=== PATIENT | male | born 1950 | race Caucasian/White ===

== ENCOUNTER → 2018-01-26 01:25 | Outpatient (CLI) | payer MEDICARE, OTHER, SELFPAY ==
--- NOTE | 2018-01-26 14:30 | DI.REPORT_ITS ---
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 Moderate atrophic changes are demonstrated. Again noted is a left frontal arachnoid cyst. The previous identified right subdural collection is no longer seen. A pituitary mass described on the previous study of 09/14/17 is unchanged. The ventricles are unremarkable. There are a few small regions of increased signal in the frontal parietal white matter consistent with small vessel disease. There is nothing to suggest an intra or extra-axial hemorrhage or mass. There are no regions of restricted diffusion. There is some contrast enhancement involving the pituitary mass, otherwise no regions of contrast enhancement are evident. SUMMARY: No acute abnormality is demonstrated. There has been resorption of a right subdural hematoma. Again noted is a left frontal subarachnoid cyst. The pituitary tumor is unchanged.
[2018-01-26] MEDS: Gadoterate meglumine 20 ML VIAL 18 ML IVP (15:14)
--- NOTE | 2018-01-26 16:37 | DI.VRAD_ITS ---
EXAM: MR Head Without And With Intravenous Contrast CLINICAL HISTORY: 67 years old, male; Pain; Headache; Migraine; Aura effect not specified; Patient HX: Migraine w/aura and w/o status migrainosus, . not retractable. 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 COMPARISON: MRI BRAIN - PITUITARY W/WO 2017-09-14 16:38 FINDINGS: Brain: Stable appearance of approximately 5.3 cm CSF isointense structure in the anterior left frontal pole causing adjacent mass effect upon the adjacent left frontal lobe, most likely representing arachnoid cyst. Resolution of previously seen right-sided subdural hematoma. Few scattered nonspecific hypointensities of the periventricular and deep subcortical white matter, most likely secondary to chronic small vessel ischemic change. No restricted diffusion to suggest infarct. Chronic unchanged mild thickening and enhancement of the right cerebral dura, possibly related to sequela from old subdural collection. No new areas of enhancement. Ventricles: Unremarkable. No ventriculomegaly. Bones/joints: Unremarkable. Sinuses: Unremarkable as visualized. No acute sinusitis. Mastoid air cells: Unremarkable as visualized. No mastoid effusion. Orbits: Unremarkable as visualized. IMPRESSION: 1. No acute findings on MR brain. 2. Chronic unchanged mild enhancement of the right cerebral dura, possibly sequela of now essentially completely resolved old right subdural collection/hematoma. 3. Other chronic findings, as above. Dictated and Authenticated by: Alban Hinojosa MD. Ordering:MALOU IZAGUIRRE MD
== END ==
PROVIDERS: PCP Family Medicine; Visit Provider Psychiatry & Neurology Neurology
DX: G43.109 Migraine with aura, not intractable, without status migrainosus (principal); I67.89 Other cerebrovascular disease; D35.2 Benign neoplasm of pituitary gland; R93.0 Abnormal findings on diagnostic imaging of skull and head, not elsewhere classified
CPT/HCPCS: 70553

== ENCOUNTER → 2018-01-31 12:45 | Outpatient (CLI) | payer MEDICARE, OTHER, SELFPAY | PROVIDERS: PCP Family Medicine; Visit Provider Nurse Practitioner Adult Health | DX: G31.84 Mild cognitive impairment of uncertain or unknown etiology (principal); E11.9 Type 2 diabetes mellitus without complications; I10 Essential (primary) hypertension | CPT/HCPCS: 99213 ==

== ENCOUNTER 2018-01-31 18:38 | Emergency (ER) | payer MEDICARE, OTHER, SELFPAY ==
[2018-01-31] VITALS (45 sets, daily range): BP systolic 151–184; BP diastolic 69–117; PULSE 67–88; RESP 11–30; TEMP 36.7; O2SAT 95–99
--- NOTE | 2018-01-31 19:02 | ED.GENADUL_ITS ---
Disposition Clinical Impression: Migraine headache, Hypokalemia Disposition: STILL A PATIENT Condition: Good Instructions: Hypokalemia (ED) Additional Instructions: May liberalize potassium in the diet such as through the ingestion of bananas, strawberries, tree nuts such as cashews or almonds. Continue your regular medications as previously prescribed. Home to rest this evening. Our care management team will work towards achieving you an outpatient follow- up in clinic to recheck your laboratories this week. Return to the emergency department for any acute concerns. Medical Decision Making - Lab Data Laboratory Results - last 24 hr 01/31/18 01/31/18 01/31/18 19:00 19:00 19:49 WBC 5.44 RBC 4.69 Hgb 13.2 L Hct 37.5 L MCV 80.0 MCH 28.1 MCHC 35.2 RDW 15.0 H Plt Count 167 MPV 8.9 Immature Gran % 0.2 Neutrophils % 56.1 Lymphocytes % 27.0 Monocytes % 11.6 Eosinophils % 3.3 Basophils % 1.8 Absolute Neutrophils 3.05 Absolute Lymphocytes 1.47 Absolute Monocytes 0.63 Absolute Eosinophils 0.18 Absolute Basophils 0.10 Sodium Cancelled 146 H Potassium Cancelled 2.4 L* Chloride Cancelled 119 H Carbon Dioxide Cancelled 15.0 L Anion Gap Cancelled 12.0 H BUN Cancelled 7 Creatinine Cancelled 0.49 L Estimated GFR/1.73 m2 Cancelled >= 60.00 Glucose Cancelled 152 H Calcium Cancelled < 5.0 L* Laboratory Results - last 24 hr 01/31/18 01/31/18 01/31/18 19:00 19:00 19:49 WBC 5.44 RBC 4.69 Hgb 13.2 L Hct 37.5 L MCV 80.0 MCH 28.1 MCHC 35.2 RDW 15.0 H Plt Count 167 MPV 8.9 Immature Gran % 0.2 Neutrophils % 56.1 Lymphocytes % 27.0 Monocytes % 11.6 Eosinophils % 3.3 Basophils % 1.8 Absolute Neutrophils 3.05 Absolute Lymphocytes 1.47 Absolute Monocytes 0.63 Absolute Eosinophils 0.18 Absolute Basophils 0.10 Sodium Cancelled 146 H Potassium Cancelled 2.4 L* Chloride Cancelled 119 H Carbon Dioxide Cancelled 15.0 L Anion Gap Cancelled 12.0 H BUN Cancelled 7 Creatinine Cancelled 0.49 L Estimated GFR/1.73 m2 Cancelled >= 60.00 Glucose Cancelled 152 H Calcium Cancelled < 5.0 L* 01/31/18 23:05 WBC RBC Hgb Hct MCV MCH MCHC RDW Plt Count MPV Immature Gran % Neutrophils % Lymphocytes % Monocytes % Eosinophils % Basophils % Absolute Neutrophils Absolute Lymphocytes Absolute Monocytes Absolute Eosinophils Absolute Basophils Sodium 141 Potassium 4.1 D Chloride 110 H Carbon Dioxide 19.3 L Anion Gap 11.7 H BUN 9 Creatinine 0.96 Estimated GFR/1.73 m2 >= 60.00 Glucose 137 H Calcium 7.5 L Results reviewed for labs ordered during visit: Yes 01/31/18 21:22 Normal sinus rhythm, the rate is 76, the QRS is narrow, ST segments are flatnonspecific - Radiology Data Radiology results: report reviewed, image reviewed - Medical Decision Making 59-year-old male presents for evaluation of headache. History of both subdural hematoma in the past as well as migraine headaches. He is afebrile and well- appearing with mild hypertension. He recently had an MRI of the brain and states that he initially would like to defer CT scan. IV access established, patient given fluids, antiemetic, gabapentin, Tylenol. He had some improvement. Subsequently given oral tramadol. The patient's separately arrived, he agreed to proceed with noncontrast CT scan of the head. Diagnostics reveal white blood cell count 5, hematocrit 3700 it was 167. Sodium 146, potassium 2.4, chloride 119, bicarb 15, BUN 7, creatinine 0.4. He does take an AURA inhibitor. No current potassium supplementation. Potassium administered in the emergency department. Patient improved following medications. CT images of his brain are unremarkable for acute process. Most consistent with migraine headache. Patient is desirous of returning to home. Repeat chemistries are obtained following potassium supplementation. Potassium corrected to 4.1, calcium corrected to 7.5. Unclear if additional blood draw was diluted from fluids, or spurious. EKG did not reveal any changes. Patient improved, we will arrange for outpatient follow-up in clinic this week. Stable for discharge to home History of Present Illness - General Chief complaint: Headache Stated complaint: MIGRAINE Time Seen by Provider: 01/31/18 18:57 Source: patient, RN notes reviewed Mode of arrival: ambulatory Limitations: no limitations - History of Present Illness Initial comments: 59-year-old male with migraine headaches. He also has a complex past medical history. Complains of gradual onset over hours time of frontal, achy, constant severe headache is nonradiating. He has not had associated neck stiffness or fever. He did not fall or hurt himself. He states it does not feel like previous subdural hematoma. No other exacerbating or ameliorating factors History coronary artery disease, diabetes, hyperlipidemia, subdural hematoma status post evacuation, as well as migraine headaches. Brain MRI on January 26 was performed with no acute abnormality. Resorption of right subdural hematoma was noted. Left frontal subarachnoid cyst unchanged. Pituitary tumor noted unchanged. - Related Data Allopurinol [Zyloprim] 300 mg PO DAILY 01/24/13 Levothyroxine [Levothroid] 50 mcg PO DAILY@0730 01/24/13 QUEtiapine [SEROquel] 300 mg PO HS 01/24/13 Venlafaxine HCl [Venlafaxine HCl ER] 75 mg PO DAILY 01/24/13 Ranitidine HCl [Zantac] 75 mg PO DAILY tab-cap 06/19/16 Glimepiride [Amaryl] 4 mg PO DAILY@0800 01/11/17 Carvedilol 25 mg PO BID #120 tab-cap 02/04/17 Rosuvastatin [Crestor] 20 mg PO HS 03/22/17 Docusate Sodium [Dulcolax Stool Softener] 100 mg PO DAILY PRN 04/08/17 Nitroglycerin [Nitrostat] 0.4 mg SL as directed 04/08/17 Polyethylene Glycol 3350 [Miralax] 17 g PO DAILY #255 gm 04/08/17 Acetaminophen [Tylenol] 2 tab PO Q4H PRN PRN tab 05/24/17 MetFORMIN [Glucophage] 1,000 mg PO BID@0800,1700 #0 05/28/17 Insulin Detemir [Levemir Flextouch] 50 units TP BID 08/04/17 Gabapentin 300 mg PO QPM PRN #14 capsule 10/30/17 Lisinopril [Prinivil] 20 mg PO DAILY tab-cap 11/25/17 Topiramate [Topamax] 50 mg PO DAILY cap.sprink 11/25/17 Cyanocobalamin (Vitamin B-12) [Vitamin B-12] 1,000 mcg PO DAILY 07/09/18 Riboflavin [Vitamin B-2] 100 mg PO DAILY 01/31/18 Allergies Allergy/AdvReac Type Severity Reaction Status Date / Time amoxicillin Allergy Severe breathing Unverified 01/31/18 18:49 difficuty and vomiting Penicillins Allergy Skin Rash Unverified 01/31/18 18:49 sulfamethoxazole Allergy Skin Rash Unverified 01/31/18 18:49 [From Bactrim] trimethoprim [From Bactrim] Allergy Skin Rash Unverified 01/31/18 18:49 oxycodone HCl [From Percocet] AdvReac Severe Contraindic Unverified 01/31/18 18: 49 ated oxycodone terephthalate AdvReac Severe Contraindic Unverified 01/31/18 18:49 [From Percodan] ated Review of Systems Other: 8 systems reviewed, otherwise no Past Medical History - Past Medical History Medical history: AMI, CAD, dementia, diabetes, GERD, hyperlipidemia, hypertension superficial thrombophlebitis; hypothyroid; chronic back pain, urinary tract infections, prostatitis Surgical history: appendectomy, coronary bypass surgery, herniorraphy, other ( colonoscopy) Family history: no significant family history - Social History Alcohol use: none Drug use: none General Exam - General Limitations: no limitations General appearance: alert, in distress, other (Lying in darkened room) - Head Head exam: Present: atraumatic, normocephalic - Eye Eye exam: Present: PERRL, EOMI - ENT ENT exam: Present: normal exam - Neck Neck exam: Present: normal inspection, full ROM. Absent: tenderness, meningismus - Respiratory Respiratory exam: Present: normal lung sounds bilaterally. Absent: respiratory distress, chest wall tenderness - Cardiovascular Cardiovascular Exam: Present: regular rate, normal rhythm - GI/Abdominal GI/Abdominal exam: Present: soft. Absent: distended, tenderness - Extremities Exam Extremities exam: Present: normal inspection, normal capillary refill - Neurological Exam Neurological exam: Present: alert, oriented X3. Absent: motor sensory deficit - Psychiatric Psychiatric exam: Present: normal affect, normal mood - Skin Skin exam: Present: warm, dry, intact Course Vital Signs - 24 hr 01/31/18 18:47 Temperature 36.7 C Pulse 88 Respiratory 20 Rate Blood Pressure 184/92 Pulse Oximetry 97
[2018-01-31] MEDS: Normal Saline 1,000 ML 1000 ML IV (19:08)
[2018-01-31] MEDS: Ondansetron 4 MG/2 ML VIAL IVP (19:10)
[2018-01-31 19:12] LABS: Abs Immature Grans 0.01 k/cumm (0.0-0.09); Absolute Eosinophil Count 0.18 k/cumm (0.0-0.7); Absolute Lymphocyte Count 1.47 k/cumm (1.2-3.4); Absolute Monocyte Count 0.63 k/cumm (0.11-0.7); Absolute Neutrophil Count 3.05 k/cumm (1.2-6.7); Basophils % 1.8; Eosinophils % 3.3; HCT 37.5 % (40.0-50.0); HGB 13.2 g/dL (13.5-17.5); Immature Grans % 0.2; Mean Corp. HGB Concentration 35.2 g/dL (32.0-36.0); Mean Corpuscular Hemoglobin 28.1 pg (27.0-33.0); Mean Platelet Volume 8.9 fL (8.0-11.0); Monocytes % 11.6; Neutrophils % 56.1; Platelet Count 167 x1000/uL (130-400); RBC 4.69 m/cumm (4.50-6.00); White Blood Cell Count 5.44 k/cumm (4.4-10.8)
[2018-01-31] MEDS: Normal Saline Flush 10 ML SYR IVP (19:14)
[2018-01-31] MEDS: diphenhydrAMINE 50 MG/ML VIAL 12.5 MG IVP (19:23)
[2018-01-31] MEDS: Acetaminophen 500 MG TAB 1000 MG PO (19:24)
[2018-01-31] MEDS: Gabapentin 300 MG CAP PO (19:24)
--- NOTE | 2018-01-31 20:11 | DI.RPTCT_ITS ---
SYMPTOM/DIAGNOSIS: HEADACHE, HX SUBDURAL IN THE PAST NONCONTRAST HEAD CT: Comparison is made with 27 December 2017. A right frontal jaylin hole is again noted. There has been no reaccumulation of the previously noted subdural hematoma. A left frontal arachnoid cyst is again noted. No acute hemorrhage or acute infarct is seen. The ventricles are unchanged in size. IMPRESSION: No acute abnormality.
[2018-01-31 20:12] LABS: BUN 7 mg/dL (7-18); Sodium 146 mmol/L (136-145)
[2018-01-31 20:23] LABS: CREATININE 0.49 mg/dL (0.70-1.30); Chloride 119 mmol/L (98-107); Glucose 152 mg/dL (70-100)
[2018-01-31 20:26] LABS: Calcium < 5.0 mg/dL (8.5-10.1); Potassium 2.4 mmol/L (3.5-5.1)
--- NOTE | 2018-01-31 20:49 | DI.VRAD_ITS ---
EXAM: CT Head Without Intravenous Contrast EXAM DATE/TIME: 01/31/2018 8:12 PM CLINICAL HISTORY: 67 years old, male; Pain; Headache; Headache not specified; Patient HX: Headache, HX subdural in the past TECHNIQUE: Axial computed tomography images of the head/brain without intravenous contrast. Coronal and sagittal reformatted images were created and reviewed. COMPARISON: CT - HEAD WITHOUT CONTRAST 2017-12-27 19:06 FINDINGS: Brain: There is mild diffuse cortical atrophy again noted. A left frontal CSF fluid collection remains unchanged in size and is thought likely consistent with an arachnoid cyst. No acute intracranial hemorrhage. Ventricles: Normal. No ventriculomegaly. Bones/joints: A right frontal lateral jaylin hole is again noted. Sinuses: Normal as visualized. No acute sinusitis. Mastoid air cells: Normal as visualized. No mastoid effusion. Soft tissues: Normal. Vasculature: Atherosclerotic vascular plaquing is again seen within the left carotid siphon. IMPRESSION: 1. No acute intracranial findings are detected. 2. No significant interval change. Dictated and Authenticated by: Armando Hollis MD. Ordering:COSME SAUCEDO MD
[2018-01-31] MEDS: POTASSIUM CHLORIDE 20 MEQ/100 ML BAG 50 MEQ IVPB (20:54)
[2018-01-31] MEDS: MORPHine 10 MG/ML VIAL 2 MG IVP (21:07)
[2018-01-31] MEDS: Potassium Chloride 20 MEQ TABCR 40 MEQ (21:09)
[2018-01-31 23:21] LABS: Anion Gap 11.7 mmol/L (3-11); BUN 9 mg/dL (7-18); CO2 19.3 mmol/L (21.0-32.0); CREATININE 0.96 mg/dL (0.70-1.30); Calcium 7.5 mg/dL (8.5-10.1); Chloride 110 mmol/L (98-107); Glucose 137 mg/dL (70-100); Potassium 4.1 mmol/L (3.5-5.1); Sodium 141 mmol/L (136-145)
--- NOTE | 2018-02-01 10:21 | PDOC.ERCMPRO ---
Care Management Progress Note 02/01-Dr. Penny requested assistance with a PCP (Dr. Ramirez) f/u end of week for hypokalemia and migraine headache. Referral faxed to [facility].
== END 2018-01-31 23:35 | disposition still patient (30) ==
PROVIDERS: Emergency Provider Emergency Medicine; PCP Family Medicine
DX: G43.909 Migraine, unspecified, not intractable, without status migrainosus (principal); E87.6 Hypokalemia; E11.9 Type 2 diabetes mellitus without complications; Z79.4 Long term (current) use of insulin; I10 Essential (primary) hypertension
CPT/HCPCS: 70450; 93005; 96361; 96365; 96375; 99284 ×2; J1200; J2270; J2405; J3480; 36415; 80048; 99213; 85025; 93010

== ENCOUNTER → 2018-02-07 13:06 | Outpatient (CLI) | payer MEDICARE, OTHER, SELFPAY ==
[2018-02-07 14:06] LABS: Anion Gap 11.6 mmol/L (3-11); BUN 13 mg/dL (7-18); CO2 19.4 mmol/L (21.0-32.0); CREATININE 1.11 mg/dL (0.70-1.30); Calcium 8.4 mg/dL (8.5-10.1); Chloride 106 mmol/L (98-107); Glucose 180 mg/dL (70-100); Magnesium 2.3 mg/dL (1.8-2.4); Sodium 137 mmol/L (136-145)
[2018-02-07 21:43] LABS: Ionized Calcium 1.12 mmol/L (1.12-1.32)
[2018-02-08 10:54] LABS: Parathyroid Hormone,Intact 57 pg/ml (19-88)
== END ==
PROVIDERS: PCP Family Medicine; Visit Provider Family Medicine
DX: E83.51 Hypocalcemia (principal); E87.6 Hypokalemia
CPT/HCPCS: 36415; 80048; 82330; 83735; 83970

== ENCOUNTER → 2018-02-10 10:21 | Outpatient (CLI) | payer MEDICARE, OTHER, SELFPAY ==
[2018-02-10 10:44] LABS: HCT 39.5 % (40.0-50.0); HGB 13.8 g/dL (13.5-17.5); Mean Corp. HGB Concentration 34.9 g/dL (32.0-36.0); Mean Corpuscular Hemoglobin 28.3 pg (27.0-33.0); Mean Corpuscular Volume 80.9 fL (80-95); Mean Platelet Volume 8.9 fL (8.0-11.0); Platelet Count 175 x1000/uL (130-400); RBC 4.88 m/cumm (4.50-6.00); RBC Distribution Width 15.1 % (11.8-14.1); White Blood Cell Count 5.71 k/cumm (4.4-10.8)
[2018-02-10 10:57] LABS: Hemoglobin A1C 7.8 % (4.5-6.2)
== END ==
PROVIDERS: PCP Family Medicine; Visit Provider Family Medicine
DX: E11.9 Type 2 diabetes mellitus without complications (principal); Z86.79 Personal history of other diseases of the circulatory system
CPT/HCPCS: 36415; 85027; 83036

== ENCOUNTER 2018-02-27 16:20 | Emergency (ER) | payer MEDICARE, OTHER, SELFPAY ==
[2018-02-27 16:42] VITALS: BP 149/87; PULSE 90; RESP 16; TEMP 36.7; O2SAT 99
--- NOTE | 2018-02-27 16:50 | ED.GENADUL_ITS ---
Discharge Plan Disposition Patient Disposition: HOME Condition: Fair Discharge Details Chief Complaint: Headache Clinical Impression: Headache Primary Care Provider: Alisa Ramirez ED Provider: Evelyn Griffith Home Meds and New Rx's Prescriptions: New nystatin 100,000 unit/mL suspension 4 ml PO QID 14 Days Qty: 224 RF: 0 Continue ranitidine HCl [Zantac Maximum Strength] 150 MG tablet 75 mg PO DAILY RF: 0 polyethylene glycol 3350 [Miralax] 17 GM powder in packet 17 g PO DAILY Qty: 255 RF: 0 nitroglycerin [Nitrostat] 0.4 MG tablet, sublingual 0.4 mg Sublingual as directed RF: 0 docusate sodium [Dulcolax Stool Softener (dss)] 100 MG capsule 100 mg PO DAILY PRNRF: 0 insulin detemir U-100 [Levemir FlexTouch U-100 Insuln] 100 UNIT/1 ML insulin pen 50 units Topical BID RF: 0 lisinopril 20 MG tablet 20 mg PO DAILY RF: 0 topiramate [Topamax] 25 MG capsule, sprinkle 50 mg PO DAILY RF: 0 riboflavin (vitamin B2) [Vitamin B-2] 100 MG tablet 100 mg PO DAILY RF: 0 carvedilol 25 MG tablet 25 mg PO BID Qty: 120 RF: 4 levothyroxine 50 MCG tablet 50 mcg PO DAILY@0730 RF: 0 allopurinol 300 MG tablet 300 mg PO DAILY RF: 0 venlafaxine 75 MG capsule,extended release 24hr 75 mg PO DAILY RF: 0 quetiapine [Seroquel] 300 MG tablet 300 mg PO HS RF: 0 rosuvastatin [Crestor] 20 MG tablet 20 mg PO HS RF: 0 metformin [Glucophage] 1,000 MG tablet 1,000 mg PO BID@0800,1700 Qty: 0 RF: 0 glimepiride [Amaryl] 4 MG tablet 4 mg PO DAILY@0800 RF: 0 acetaminophen [Tylenol] 325 MG tablet 2 tab PO Q4H PRN PRNRF: 0 gabapentin 300 MG capsule 300 mg PO QPM PRN (Reason: Headache) Qty: 14 RF: 0 cyanocobalamin (vitamin B-12) [Vitamin B-12] 1,000 MCG tablet 1,000 mcg PO DAILY RF: 0 Discharge Instructions Instructions: General Headache (ED) Additional Instructions: Encourage hydration. Please take medication as you have previously for your migraines. Please keep upcoming appointment with primary care. Nystatin swish and swallow as prescribed for your thrush. If he develops fever/chills, increased pain, visual changes or other new/worsening symptoms please seek care urgently once again Referrals: Alisa Ramirez MD [Primary Care Provider] - Medical Decision Making MDM Narrative Medical decision making narrative: Patient presents today with chief complaint of headache. Patient reports a headache initially began approximately 3 days ago but is quite minimal. However, the pain begins increased today. Reports that it is more like a migraine at this time. However, patient also reports that he had a sudden onset of more severe symptoms that awoke him from an afternoon nap. Patient's history of bleed this does have a concern for this. She continues to describe his headache is a migraine. Seems to waffle between this being more like a migraine or the believes he has had previously. Given his history and sudden worsening of symptoms I feel that imaging is appropriate. Patient will be treated with Reglan and Benadryl. We will hold off on any Toradol at this time to wait for that bleed. Symptoms began 30 minutes to 1 hour prior to arrival. CT reviewed by radiologist. Advised stable arachnoid cyst in the left frontal lobe measuring 5.3 cm. Mild mass effect with slight effacement of the frontal horn, unchanged. No midline shift. No intracranial hemorrhage. There are periventricular white matter lucencies compatible with chronic microvascular ischemic disease. Normal aceves-white differentiation. The calvarium is intact. The visualized paranasal sinuses and mastoid air cells are normal bilaterally. No acute findings advised Discussed findings with patient and his . At this point, working diagnosis is migraine as no bleeding is noted. Patient received Reglan and Benadryl IV as well as IV hydration. Patient reports that his headache is now down to a 4 out of 10. He feels that he is ready to go home and sleep. He reports that he has taken his gabapentin at home in the past with good relief in his discomfort, would prefer to take this at home. Patient is given strict return precautions. Advised follow-up with primary care within the next week for reevaluation and to discuss migraine prophylaxis further. All of his questions and concerns were addressed and he is in agreement with this plan. HPI - General Adult General Mode of arrival: ambulatory . Date/Time Provider Initiated Documentation: 02/27/18 16:46 . Limitations to Documentation: no limitations . Information obtained by: patient and family . HPI Narrative: Patient is 67-year-old male presenting today with chief complaint of migraine. Patient reports the headache began a few days ago. Patient has history of hypertension, CAD, diabetes, subdural hematoma. Reports that he had mild headache for the past 3 days. States that this morning the headache started to get worse and felt like my migraines. Has been having photophobia and phonophobia. Denies any nausea or vomiting. However, the patient reports that then this afternoon to take a nap hoping that this would help with his headache. States that a sudden severe headache awoke him from his nap. Reports that this portion of it feels more like his bleeds had historically. Related Data Home Medications Medication Instructions Recorded Confirmed allopurinol 300 mg PO DAILY 01/24/13 02/27/18 levothyroxine 50 mcg PO DAILY@0730 01/24/13 02/27/18 quetiapine [Seroquel] 300 mg PO HS 01/24/13 02/27/18 venlafaxine 75 mg PO DAILY 01/24/13 02/27/18 ranitidine HCl [Zantac Maximum 75 mg PO DAILY tab-cap 06/19/16 02/27/18 Strength] glimepiride [Amaryl] 4 mg PO DAILY@0800 01/11/17 02/27/18 rosuvastatin [Crestor] 20 mg PO HS 03/22/17 02/27/18 docusate sodium [Dulcolax Stool 100 mg PO DAILY PRN 04/08/17 02/27/18 Softener (dss)] nitroglycerin [Nitrostat] 0.4 mg SUBLINGUAL as directed 04/08/17 02/27/18 polyethylene glycol 3350 [Miralax] 17 g PO DAILY #255 gm 04/08/17 01/31/18 insulin detemir U-100 [Levemir 50 units TOPICAL BID 08/04/17 02/27/18 FlexTouch U-100 Insuln] lisinopril 20 mg PO DAILY tab-cap 11/25/17 02/27/18 topiramate [Topamax] 50 mg PO DAILY cap.[email or web address] 11/25/17 02/27/18 cyanocobalamin (vitamin B-12) 1,000 mcg PO DAILY 12/27/17 02/27/18 [Vitamin B-12] riboflavin (vitamin B2) [Vitamin 100 mg PO DAILY 01/31/18 02/27/18 B-2] Previous Rx's Medication Instructions Recorded acetaminophen [Tylenol] 2 tab PO Q4H PRN PRN tab 05/24/17 metformin [Glucophage] 1,000 mg PO BID@0800,1700 #0 05/28/17 gabapentin 300 mg PO QPM PRN #14 capsule 10/30/17 nystatin 4 ml PO QID 14 Days #224 ml 02/27/18 Allergies Allergy/AdvReac Type Severity Reaction Status Date / Time amoxicillin Allergy Severe breathing Unverified 02/27/18 16:46 difficuty and vomiting Penicillins Allergy Skin Rash Unverified 02/27/18 16:46 sulfamethoxazole Allergy Skin Rash Unverified 02/27/18 16:46 [From Bactrim] trimethoprim [From Bactrim] Allergy Skin Rash Unverified 02/27/18 16:46 oxycodone HCl [From Percocet] AdvReac Severe Contraindic Unverified 02/27/18 16: 46 ated oxycodone terephthalate AdvReac Severe Contraindic Unverified 02/27/18 16:46 [From Percodan] ated General Stated Complaint: Headache MADELIN: 2 Review of Systems Constitutional Reports as per HPI, Denies chills, Denies fever(s) and Reports headache(s) Eyes Patient Reports as per HPI, Denies blurry vision, Denies change in vision and Denies loss of vision ENT Denies abnormal hearing, Denies vertigo, Denies dizziness and Reports headache(s ) Cardiovascular Denies chest pain, Denies chest pain at rest, Denies syncope, Denies leg edema and Denies dyspnea Respiratory Denies cough, Denies pain on inspiration, Denies pain with cough and Denies dyspnea Gastrointestinal Reports as per HPI and Reports vomiting Musculoskeletal Denies abnormal gait, Denies back pain, Denies numbness and Denies tingling Integumentary/Breasts Denies erythema, Denies rash and Denies skin pain Neurologic Denies abnormal hearing, Denies abnormal speech, Denies abnormal gait, Denies confusion, Denies vertigo, Denies dizziness, Denies syncope, Reports headache(s) , Denies lack of coordination, Denies loss of vision, Denies numbness, Denies sensory deficit, Denies tingling and Denies paresthesias Psychiatric Denies confusion [facility] Medical History CAD (coronary artery disease) Chronic low back pain Colon polyps DM type 2 (diabetes mellitus, type 2) Depression Diastasis recti Fatty liver GERD (gastroesophageal reflux disease) Gout H/O alcohol abuse Headaches due to 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 Hx of deep venous thrombosis Hyperlipidemia Hypertension Hypothyroidism MRSA infection Obstructive sleep apnea Urethral stricture Vitamin D deficiency Social History Smoking/Tobacco Use Status: Former Tobacco Use Surgical History Appendectomy (06/01/16) Colonoscopy - MAC Coronary Artery Bypass Gaft (CABG) Extraction of cataract Repair of inguinal hernia (08/05/17) Repair of umbilical hernia electroconvulsive therapy facial lesion removal Exam Const General: cooperative, healthy appearing, uncomfortable (patient appears uncomfortable, is prefering to have his blanket over his head for photophobia), no acute distress, well developed and well groomed Nutritional Appearance: average body habitus Orientation: alert and awake HENGA Head: normal to inspection, normocephalic and atraumatic Ears: hearing grossly normal bilaterally Face and sinus: normal facial exam Mouth: abnormal tongue (Patient is a brown film over his tongue. This is able to be removed with a Q-tip. Patient is currently being treated for thrush. Had Oreos and tea prior to arrival) Teeth and gingiva: dentition normal Throat: posterior oropharynx normal Eyes General: appearance normal, both eyes and all related structures Alignment and Position: alignment normal Eyelids: eyelids normal Conjunctivae: conjunctivae normal Pupils: PERRL EOM: EOM intact bilaterally Neck Neck: normal visual inspection, full ROM and no meningeal signs Resp Effort & Inspection: normal respiratory effort and able to speak in complete sentences Auscultation: clear to auscultation bilaterally Cardio Rate: regular rate Rhythm: regular rhythm Heart Sounds: S1 normal and S2 normal GI Inspection: normal to inspection Palpation: soft, not firm, no guarding, not rigid and nontender Auscultation: normal bowel sounds Skin General skin exam: no rashes or lesions noted Lesions: no lesions Rashes: no rashes Trauma: no lacerations or abrasions Neuro General: alert, awake, oriented x3 and no meningeal signs Cranial Nerves: CN's II-XI intact bilaterally Cognition: normal cognition Speech: speech normal Gait: normal gait Motor: muscle tone normal throughout, strength 5/5 throughout, no pronator drift and no movement abnormalities noted Sensory Exam: no sensory deficits noted Coordination: [id number] test normal, [id number] test normal, Romberg test normal and rapid alternating movement UE normal Extrem General: normal to inspection, full ROM and normal capillary refill Psych Appearance: grossly normal and well kempt Mental Status: mental status grossly normal Speech and Movement: speech and movement normal Mood: congruent mood Affect: normal affect Attitude: cooperative Course Vital Signs Temperature 36.7 C 02/27/18 16:42 Pulse 90 02/27/18 16:42 Respiratory Rate 16 02/27/18 16:42 Blood Pressure 149/87 H 02/27/18 16:42 Pulse Oximetry 99 02/27/18 16:42 Temperature 36.7 C 02/27/18 16:42 Pulse 90 02/27/18 16:42 Respiratory Rate 16 02/27/18 16:42 Blood Pressure 149/87 H 02/27/18 16:42 Pulse Oximetry 99 02/27/18 16:42
--- NOTE | 2018-02-27 16:59 | DI.CT_ITS ---
SYMPTOM/DIAGNOSIS: HEADACHE, HISTORY OF BLEEDS NONCONTRAST HEAD CT: Comparison is made with 31 January 2018. No intracranial hemorrhage, mass or infarct seen. There is again noted to be a left frontal arachnoid cyst. The ventricles are unchanged and normal in size. There is stable sellar enlargement which appears unchanged when compared to an MRI of 2007. A right frontal jaylin hole is seen. IMPRESSION: No acute abnormality.
[2018-02-27] MEDS: Metoclopramide 10 MG/2 ML VIAL IVP (17:15)
--- NOTE | 2018-02-27 17:25 | DI.VRAD_ITS ---
EXAM: CT Head Without Intravenous Contrast CLINICAL HISTORY: 67 years old, male; Pain; Headache; Migraine; Aura effect not specified; Other: N/a, acute TAN; Patient HX: TAN, HX of brain bleeds. TECHNIQUE: Axial computed tomography images of the head/brain without intravenous contrast. All CT scans at this facility use at least one of these dose optimization techniques: automated exposure control; mA and/or kV adjustment per patient size (includes targeted exams where dose is matched to clinical indication); or iterative reconstruction. Coronal and sagittal reformatted images were created and reviewed. COMPARISON: CT - HEAD WITHOUT CONTRAST 01/31/2018 8:15 PM FINDINGS: Stable arachnoid cyst in the left frontal lobe measuring 5.3 cm. Mild mass effect with slight effacement of the left frontal horn, unchanged. No midline shift No intracranial hemorrhage. There are periventricular white matter lucencies compatible with chronic microvascular ischemic disease. Normal aceves-white differentiation. The calvarium is intact.The visualized paranasal sinuses and mastoid air cells are normally aerated bilaterally. IMPRESSION: No acute findings. Dictated and Authenticated by: Patrick Piedra MD. Ordering:RICHARD CULP MD
[2018-02-27] MEDS: diphenhydrAMINE 50 MG/ML VIAL 25 MG IVP (17:35)
[2018-02-27] MEDS: Normal Saline 1,000 ML 1000 ML IV (18:10)
[2018-02-27 19:12] VITALS: BP 145/92; PULSE 85; RESP 16; O2SAT 99
== END 2018-02-27 19:10 | disposition home or self-care (01) ==
PROVIDERS: Emergency Provider Physician Assistant; PCP Family Medicine
DX: R51 Headache (principal); B37.0 Candidal stomatitis; Z86.79 Personal history of other diseases of the circulatory system; I10 Essential (primary) hypertension; E11.9 Type 2 diabetes mellitus without complications; Z79.4 Long term (current) use of insulin
CPT/HCPCS: 96361; 96374; 96375; 99285; 70450; 99284; J1200; J2765

== ENCOUNTER 2018-03-02 15:01 | Outpatient (CLI) | payer MEDICARE, OTHER, SELFPAY ==
--- NOTE | 2018-03-02 09:45 | DI.RAD_ITS ---
SYMPTOM/DIAGNOSIS: CHRONIC CONSTIPATION, K59.09, ASSESS STOOL QUANTITY ABDOMEN: Comparison is made with 10/02/16. There is a mild amount of retained stool throughout the colon. No evidence of obstruction is seen. Mild degenerative changes are seen in the lumbar spine and the hips bilaterally. There is an old compression deformity of the T 12 vertebral body again noted. IMPRESSION: Mild amount of retained stool.
== END 2018-03-02 15:21 ==
PROVIDERS: PCP Family Medicine; Visit Provider Family Medicine
DX: K59.00 Constipation, unspecified (principal)
CPT/HCPCS: 74018

== ENCOUNTER 2018-03-22 15:27 | Emergency (ER) | payer MEDICARE, OTHER, SELFPAY ==
[2018-03-22 15:31] VITALS: BP 163/83; PULSE 91; RESP 18; TEMP 37; O2SAT 98
--- NOTE | 2018-03-22 15:39 | DI.CT_ITS ---
SYMPTOMS/DIAGNOSIS: HEADACHE, H/O BRAIN BLEEDS CRANIAL CT: Noncontrast cranial CT was performed. Note is made of a previous left frontal arachnoid cyst and right frontal jaylin hole in a patient with a history of previous intracranial hemorrhage. No acute intracranial hemorrhage, mass effect or midline shift seen. The previously noted enlarged pituitary again seen. The orbital and temporal bone structures appear intact. Paranasal sinuses are well aerated as visualized, as are the mastoid air cells. CONCLUSION: No evidence of acute intracranial process.
[2018-03-22 15:52] LABS: Abs Immature Grans 0.01 k/cumm (0.0-0.09); Absolute Basophil Count 0.05 k/cumm (0.0-0.2); Absolute Eosinophil Count 0.19 k/cumm (0.0-0.7); Absolute Lymphocyte Count 1.07 k/cumm (1.2-3.4); Absolute Monocyte Count 0.69 k/cumm (0.11-0.7); Absolute Neutrophil Count 4.44 k/cumm (1.2-6.7); Basophils % 0.8; Eosinophils % 2.9; HGB 13.2 g/dL (13.5-17.5); Immature Grans % 0.2; Lymphocytes % 16.6; Mean Corp. HGB Concentration 34.7 g/dL (32.0-36.0); Mean Corpuscular Volume 80.5 fL (80-95); Mean Platelet Volume 8.7 fL (8.0-11.0); Monocytes % 10.7; Neutrophils % 68.8; Platelet Count 170 x1000/uL (130-400); RBC 4.72 m/cumm (4.50-6.00); White Blood Cell Count 6.45 k/cumm (4.4-10.8)
[2018-03-22] MEDS: diphenhydrAMINE 50 MG/ML VIAL 25 MG IVP (15:52)
[2018-03-22] MEDS: Normal Saline 1,000 ML 1000 ML IV (15:52)
[2018-03-22] MEDS: Metoclopramide 10 MG/2 ML VIAL IVP (15:52)
[2018-03-22] MEDS: Acetaminophen 500 MG TAB 1000 MG PO (15:52)
[2018-03-22 16:06] LABS: ALT 30 U/L (12-78); AST 16 U/L (15-37); Alkaline Phosphatase 89 U/L (46-116); Anion Gap 10.3 mmol/L (3-11); BUN 15 mg/dL (7-18); Bilirubin, Total 0.3 mg/dL (0.2-1.0); CO2 20.7 mmol/L (21.0-32.0); CREATININE 1.11 mg/dL (0.70-1.30); Calcium 8.8 mg/dL (8.5-10.1); Chloride 102 mmol/L (98-107); Glucose 340 mg/dL (70-100); Potassium 3.8 mmol/L (3.5-5.1); Sodium 133 mmol/L (136-145); Total Protein 7.3 g/dL (6.4-8.2)
[2018-03-22] MEDS: Ketorolac 15 MG/ML VIAL IVP (16:15)
[2018-03-22] MEDS: Dexamethasone 10 MG/ML VIAL (16:46)
[2018-03-22] MEDS: MAGNESIUM SULFATE 1 GM/100 ML BAG IVPB (16:52)
--- NOTE | 2018-03-22 16:57 | W.ED.GENAD ---
Discharge Plan Disposition Patient Disposition: HOME Condition: Good Discharge Details Chief Complaint: Headache Clinical Impression: Headache Primary Care Provider: Alisa Ramirez ED Provider: Christopher Lua Home Meds and New Rx's Prescriptions: No Action ranitidine HCl [Zantac Maximum Strength] 150 MG tablet 75 mg PO DAILY RF: 0 polyethylene glycol 3350 [Miralax] 17 GM powder in packet 17 g PO DAILY Qty: 255 RF: 0 nitroglycerin [Nitrostat] 0.4 MG tablet, sublingual 0.4 mg Sublingual as directed RF: 0 docusate sodium [Dulcolax Stool Softener (dss)] 100 MG capsule 100 mg PO DAILY PRNRF: 0 insulin detemir U-100 [Levemir FlexTouch U-100 Insuln] 100 UNIT/1 ML insulin pen 50 units Topical BID RF: 0 lisinopril 20 MG tablet 20 mg PO DAILY RF: 0 topiramate [Topamax] 25 MG capsule, sprinkle 50 mg PO DAILY RF: 0 riboflavin (vitamin B2) [Vitamin B-2] 100 MG tablet 100 mg PO DAILY RF: 0 carvedilol 25 MG tablet 25 mg PO BID Qty: 120 RF: 4 levothyroxine 50 MCG tablet 50 mcg PO DAILY@0730 RF: 0 allopurinol 300 MG tablet 300 mg PO DAILY RF: 0 venlafaxine 75 MG capsule,extended release 24hr 75 mg PO DAILY RF: 0 quetiapine [Seroquel] 300 MG tablet 300 mg PO HS RF: 0 rosuvastatin [Crestor] 20 MG tablet 20 mg PO HS RF: 0 metformin [Glucophage] 1,000 MG tablet 1,000 mg PO BID@0800,1700 Qty: 0 RF: 0 glimepiride [Amaryl] 4 MG tablet 4 mg PO DAILY@0800 RF: 0 acetaminophen [Tylenol] 325 MG tablet 2 tab PO Q4H PRN PRNRF: 0 gabapentin 300 MG capsule 300 mg PO QPM PRN (Reason: Headache) Qty: 14 RF: 0 cyanocobalamin (vitamin B-12) [Vitamin B-12] 1,000 MCG tablet 1,000 mcg PO DAILY RF: 0 tramadol 50 mg Tablet 1 tab PO PRN PRNRF: 0 Discharge Instructions Instructions: General Headache (ED) Additional Instructions: If you notice any worsening of your symptoms, or any new symptoms such as vomiting, diarrhea, fever, chills, shortness of breath, chest pain, numbness, weakness, or fainting , please return immediately to the emergency department for reevaluation. Please follow up with your primary care provider as soon as possible for reassessment and reevaluation. As always, it was a pleasure participating in your medical care today. Referrals: Alisa Ramirez MD [Primary Care Provider] - Medical Decision Making This is a 67-year-old male with past medical history of intracranial bleeds and intracranial surgery. He also has a very strong history of headaches, which is unfortunately always obfuscated by his history of previous bleeds and injuries. He presents today with headache. Classic to his normal symptoms being in the front of his head, with an aversion to light and loud noises. Demonstrates no focal neurologic deficits on exam, no signs of meningitis, no other abnormalities. We will give a migraine cocktail, and reassess the patient. We will get a head CT to rule out any acute bleed although I feel this is extremely unlikely with his current clinical scenario. 556pm On reevaluation the patient is feeling much better. His headache has been cut in half in regards to severity. He feels that he is ready to go home. Laboratory workup is benign. Repeat neurologic exam demonstrates no focal neurologic deficits. I have extensively reviewed the treatment plan and discharge instructions with the patient and their family. I have addressed all patient concerns at this time. The patient and family was made aware of what symptoms to monitor for that would warrant a return to the emergency department. Discussed the plan with the patient and family, they demonstrate verbal understanding and agreement with our assessment and plan at this time. HPI General Date/Time Provider Initiated Documentation: 03/22/18 15:36. HPI Narrative: This is a 67-year-old male with a past medical history of subdural hematoma, previous intracranial bleed, previous intracranial surgery, diabetes, hypertension, coronary artery disease, who is not on any blood thinners, was a strong history of chronic recurrent headaches secondary to his surgery and previous intracranial pathologies. He presents today for headache. He states it began 1 hour prior to arrival. It occurred while he was swimming in the pool. He has aversion to light and loud noises. It is in the front of his head with radiation behind his eyes. He states that the symptoms are exactly similar to his previous headaches. Patient has had over 7 CT scans on his most recent visit secondary to his headaches. The patient denies any other complaints. He denies any fevers, chills, numbness tingling or weakness, neck pain, chest pain, shortness of breath, vomiting, diarrhea. He denies any pertinent family history. He has no other complaints at this time. Related Data Home Medications Medication Instructions Recorded Confirmed allopurinol 300 mg PO DAILY 01/24/13 03/22/18 levothyroxine 50 mcg PO DAILY@0730 01/24/13 03/22/18 quetiapine [Seroquel] 300 mg PO HS 01/24/13 03/22/18 venlafaxine 75 mg PO DAILY 01/24/13 03/22/18 ranitidine HCl [Zantac Maximum 75 mg PO DAILY tab-cap 06/19/16 03/22/18 Strength] glimepiride [Amaryl] 4 mg PO DAILY@0800 01/11/17 03/22/18 rosuvastatin [Crestor] 20 mg PO HS 03/22/17 03/22/18 docusate sodium [Dulcolax Stool 100 mg PO DAILY PRN 04/08/17 03/22/18 Softener (dss)] nitroglycerin [Nitrostat] 0.4 mg SUBLINGUAL as directed 04/08/17 03/22/18 polyethylene glycol 3350 [Miralax] 17 g PO DAILY #255 gm 04/08/17 03/22/18 acetaminophen [Tylenol] 2 tab PO Q4H PRN PRN tab 05/24/17 03/22/18 metformin [Glucophage] 1,000 mg PO BID@0800,1700 #0 05/28/17 03/22/18 insulin detemir U-100 [Levemir 50 units TOPICAL BID 08/04/17 03/22/18 FlexTouch U-100 Insuln] gabapentin 300 mg PO QPM PRN #14 capsule 10/30/17 03/22/18 lisinopril 20 mg PO DAILY tab-cap 11/25/17 03/22/18 topiramate [Topamax] 50 mg PO DAILY cap.[email or web address] 11/25/17 03/22/18 cyanocobalamin (vitamin B-12) 1,000 mcg PO DAILY 12/27/17 03/22/18 [Vitamin B-12] riboflavin (vitamin B2) [Vitamin 100 mg PO DAILY 01/31/18 03/22/18 B-2] carvedilol 25 mg PO BID #120 tab-cap 02/07/18 03/22/18 tramadol 1 tab PO PRN PRN 03/22/18 03/22/18 Previous Rx's Medication Instructions Recorded acetaminophen [Tylenol] 2 tab PO Q4H PRN PRN tab 05/24/17 metformin [Glucophage] 1,000 mg PO BID@0800,1700 #0 05/28/17 gabapentin 300 mg PO QPM PRN #14 capsule 10/30/17 carvedilol 25 mg PO BID #120 tab-cap 02/07/18 Allergies Allergy/AdvReac Type Severity Reaction Status Date / Time amoxicillin Allergy Severe breathing Unverified 03/22/18 15:36 difficuty and vomiting Penicillins Allergy Skin Rash Unverified 03/22/18 15:36 sulfamethoxazole Allergy Skin Rash Unverified 03/22/18 15:36 [From Bactrim] trimethoprim [From Bactrim] Allergy Skin Rash Unverified 03/22/18 15:36 oxycodone HCl [From Percocet] AdvReac Severe Contraindic Unverified 03/22/18 15:36 ated oxycodone terephthalate AdvReac Severe Contraindic Unverified 03/22/18 15:36 [From Percodan] ated General Stated Complaint: Headache MADELIN: 3 Review of Systems Review of Systems All systems reviewed & are unremarkable except as noted in HPI and below PFSH Medical History CAD (coronary artery disease) Chronic low back pain Colon polyps DM type 2 (diabetes mellitus, type 2) Depression Diastasis recti Fatty liver GERD (gastroesophageal reflux disease) Gout H/O alcohol abuse Headaches due to 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 Hx of deep venous thrombosis Hyperlipidemia Hypertension Hypothyroidism MRSA infection Obstructive sleep apnea Urethral stricture Vitamin D deficiency Social History Smoking/Tobacco Use Status: Former Tobacco Use Surgical History Appendectomy (06/01/16) Colonoscopy - MAC Coronary Artery Bypass Gaft (CABG) Extraction of cataract Repair of inguinal hernia (08/05/17) Repair of umbilical hernia electroconvulsive therapy facial lesion removal Exam Narrative Exam Narrative: 1.Const: Well-nourished, Well-developed, appearing stated age 2.Eyes: PERRL, no conjunctival injection, and symmetrical lids. No evidence of conjunctival injection. 3.ENT: Atraumatic external nose and ears. Moist MM. Neck: Symmetric, trachea midline, No thyromegaly. Patient demonstrates good movement of cervical neck. There is no nuchal rigidity, no nuchal tenderness. Patient is able to flex the neck without any difficulty or significant pain. Negative Kernig's and Brudzinski sign. Cerebellar function testing is normal. The patient demonstrates a normal hints exam with no findings concerning for a central event. No vertical nystagmus. The head impulse test is negative for any significant central abnormality. Normal test of skew. No suggestion of a central cerebellar event. 4.CVS: +S1/S2, No murmurs or gallops. Peripheral pulses 2+ and equal in all extremities. Brisk capillary refill in all extremities. 5.RESP: Unlabored respiratory effort. Clear to auscultation bilaterally. No wheezes rales or rhonchi 6.GI: Soft, Nontender/Nondistended, No hepatosplenomegaly. No guarding or rebound. 7.MSK: Normocephalic/Atraumatic, Extremities w/o deformity or ttp No cyanosis or clubbing, Normal movement of all extremities 8.Skin: Warm, Dry. No rashes or lesions. 9.Neuro: public affairs specialist II-XII grossly intact. Sensation grossly intact, no focal neurologic deficits. All 6 cardinal planes of vision or fully intact. No evidence of horizontal or vertical nystagmus. The patient demonstrated a normal gmuldd-cwth-[id number], good dexterity. There was no evidence of dysdiadochokinesia. Patient was able to ambulate without difficulty. There was no wide-based gait. Romberg, and svxo-nm-kbun are both normal on testing. Sensation was intact bilaterally as well as muscle strength bilaterally for all extremities. Patient was able to verbalize butter cup with no slurring, or miss pronunciation. 10.Psych: (AAO) x3. Appropriate mood and affect Course Vital Signs Temperature 37.0 C 03/22/18 15:31 Pulse 91 H 03/22/18 15:31 Respiratory Rate 18 03/22/18 15:31 Blood Pressure 163/83 H 03/22/18 15:31 Pulse Oximetry 98 03/22/18 15:31 Temperature 37.0 C 03/22/18 15:31 Temperature Source Temporal Artery Scan 03/22/18 15:31 Pulse 91 H 03/22/18 15:31 Respiratory Rate 18 03/22/18 15:31 Blood Pressure 163/83 H 03/22/18 15:31 Pulse Oximetry 98 03/22/18 15:31 Oxygen Delivery Method Nasal Cannula 03/22/18 15:31 Oxygen Flow Rate 2 03/22/18 15:31 Pain Level 8 03/22/18 16:15 Lab/Test Results Lab/Test Results: Laboratory Tests Range/Units 03/22/18 03/22/18 15:47 15:47 WBC (4.4-10.8) k/cumm 6.45 RBC (4.50-6.00) m/cumm 4.72 Hgb (13.5-17.5) g/dL 13.2 L Hct (40.0-50.0) % 38.0 L MCV (80-95) fL 80.5 MCH (27.0-33.0) pg 28.0 MCHC (32.0-36.0) g/dL 34.7 RDW (11.8-14.1) % 15.0 H Plt Count (130-400) x1000/uL 170 MPV (8.0-11.0) fL 8.7 Immature Gran % 0.2 Neutrophils % 68.8 Lymphocytes % 16.6 Monocytes % 10.7 Eosinophils % 2.9 Basophils % 0.8 Absolute Neutrophils (1.2-6.7) k/cumm 4.44 Absolute Lymphocytes (1.2-3.4) k/cumm 1.07 L Absolute Monocytes (0.11-0.7) k/cumm 0.69 Absolute Eosinophils (0.0-0.7) k/cumm 0.19 Absolute Basophils (0.0-0.2) k/cumm 0.05 Sodium (136-145) mmol/L 133 L Potassium (3.5-5.1) mmol/L 3.8 Chloride (98-107) mmol/L 102 Carbon Dioxide (21.0-32.0) mmol/L 20.7 L Anion Gap (3-11) mmol/L 10.3 BUN (7-18) mg/dL 15 Creatinine (0.70-1.30) mg/dL 1.11 Estimated GFR/1.73 m2 (mL/min/1.73m2) >= 60.00 Glucose (70-100) mg/dL 340 H Calcium (8.5-10.1) mg/dL 8.8 Total Bilirubin (0.2-1.0) mg/dL 0.3 AST (15-37) U/L 16 ALT (12-78) U/L 30 Alkaline Phosphatase (46-116) U/L 89 Total Protein (6.4-8.2) g/dL 7.3 Albumin (3.4-5.0) g/dL 4.0
[2018-03-22 18:04] VITALS: BP 163/83; PULSE 91; RESP 18; TEMP 37; O2SAT 98
== END 2018-03-22 18:04 | disposition home or self-care (01) ==
PROVIDERS: Emergency Provider Student in an Organized Health Care Education/Training Program; PCP Family Medicine
DX: R51 Headache (principal); E11.9 Type 2 diabetes mellitus without complications; Z79.4 Long term (current) use of insulin; I10 Essential (primary) hypertension
CPT/HCPCS: 36415; 80053; 96361; 96365; 96375; 99284; 70450; 85025; 99285; J1100; J1200; J1885; J2765; J3475

== ENCOUNTER 2018-04-13 15:25 | Emergency (ER) | payer MEDICARE, OTHER, SELFPAY ==
[2018-04-13] VITALS (33 sets, daily range): BP systolic 138–174; BP diastolic 72–91; PULSE 72–89; RESP 17–26; TEMP 36.3–38; O2SAT 95–99
--- NOTE | 2018-04-13 15:48 | DI.CT_ITS ---
SYMPTOMS/DIAGNOSIS: HEADACHE CRANIAL CT: Noncontrast cranial CT was performed. Note is again made of previously described right frontal jaylin hole and left extraaxial frontal fluid collection, unchanged in appearance from CT of 03/22/18. There is no evidence of acute intracranial hemorrhage, mass effect or midline shift. Orbital and temporal bone structures appear intact. CONCLUSION: No evidence of acute process.
[2018-04-13] MEDS: Ondansetron O.D.T. 4 MG TABEF (15:59)
--- NOTE | 2018-04-13 16:26 | DI.VRAD_ITS ---
EXAM: CT Head Without Intravenous Contrast EXAM DATE/TIME: 04/13/2018 3:49 PM CLINICAL HISTORY: 67 years old, male; Signs and symptoms; Other: Headache TECHNIQUE: Axial computed tomography images of the head/brain without intravenous contrast. Coronal and sagittal reformatted images were created and reviewed. COMPARISON: CT HEAD WO 03/22/2018 3:53 PM FINDINGS: Brain: A 2.1 cm CSF density in the left frontal extra-axial region unchanged from prior likely representing cystic hygroma. No acute hemorrhage. Left basal ganglia calcification. Ventricles: Normal. No ventriculomegaly. Sella: Redemonstration of enlarged pituitary gland. Bones/joints: Right frontal jaylin hole. Sinuses: Normal as visualized. No acute sinusitis. Mastoid air cells: Normal as visualized. No mastoid effusion. Orbits: Bilateral cataract surgery. Soft tissues: Normal. IMPRESSION: 1. No acute intracranial abnormality. 2. 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 3. Enlarged pituitary gland. Dictated and Authenticated by: Jak Nick MD. Ordering:MARINA ANDERSON MD
[2018-04-13] MEDS: diphenhydrAMINE 25 MG CAP PO (16:51)
[2018-04-13] MEDS: Acetaminophen 325 MG TAB 650 MG PO (16:52)
[2018-04-13] MEDS: Lactated Ringers 500 ML IV (17:21)
[2018-04-13] MEDS: Prochlorperazine 10 MG/2 ML VIAL IVP (17:22)
[2018-04-13 18:17] LABS: Abs Immature Grans 0.02 k/cumm (0.0-0.09); Absolute Basophil Count 0.06 k/cumm (0.0-0.2); Absolute Eosinophil Count 0.14 k/cumm (0.0-0.7); Absolute Lymphocyte Count 1.05 k/cumm (1.2-3.4); Absolute Monocyte Count 0.47 k/cumm (0.11-0.7); Absolute Neutrophil Count 5.04 k/cumm (1.2-6.7); Basophils % 0.9; Eosinophils % 2.1; HCT 39.1 % (40.0-50.0); HGB 14.1 g/dL (13.5-17.5); Immature Grans % 0.3; Lymphocytes % 15.5; Mean Corp. HGB Concentration 36.1 g/dL (32.0-36.0); Mean Corpuscular Hemoglobin 29.3 pg (27.0-33.0); Mean Corpuscular Volume 81.1 fL (80-95); Mean Platelet Volume 8.8 fL (8.0-11.0); Monocytes % 6.9; Neutrophils % 74.3; Platelet Count 183 x1000/uL (130-400); RBC 4.82 m/cumm (4.50-6.00); RBC Distribution Width 14.4 % (11.8-14.1); White Blood Cell Count 6.78 k/cumm (4.4-10.8)
[2018-04-13 18:34] LABS: Anion Gap 13.2 mmol/L (3-11); BUN 13 mg/dL (7-18); CO2 20.8 mmol/L (21.0-32.0); CREATININE 1.02 mg/dL (0.70-1.30); Calcium 8.8 mg/dL (8.5-10.1); Chloride 103 mmol/L (98-107); Glucose 163 mg/dL (70-100); Potassium 4.1 mmol/L (3.5-5.1); Sodium 137 mmol/L (136-145)
--- NOTE | 2018-04-13 19:05 | ED.GENADUL_ITS ---
Discharge Plan Disposition Patient Disposition: HOME Discharge Details Chief Complaint: Headache Clinical Impression: Headache, Chronic subdural hematoma Primary Care Provider: Alisa Ramirez ED Provider: Solomon Quiñones Home Meds and New Rx's Prescriptions: Continue ranitidine HCl [Zantac Maximum Strength] 150 MG tablet 75 mg PO DAILY RF: 0 polyethylene glycol 3350 [Miralax] 17 GM powder in packet 17 g PO DAILY Qty: 255 RF: 0 nitroglycerin [Nitrostat] 0.4 MG tablet, sublingual 0.4 mg Sublingual as directed RF: 0 docusate sodium [Dulcolax Stool Softener (dss)] 100 MG capsule 100 mg PO DAILY PRNRF: 0 insulin detemir U-100 [Levemir FlexTouch U-100 Insuln] 100 UNIT/1 ML insulin pen 50 units subcut BID RF: 0 lisinopril 20 MG tablet 20 mg PO DAILY RF: 0 topiramate [Topamax] 25 MG capsule, sprinkle 50 mg PO DAILY RF: 0 riboflavin (vitamin B2) [Vitamin B-2] 100 MG tablet 100 mg PO DAILY RF: 0 carvedilol 25 MG tablet 25 mg PO BID Qty: 120 RF: 4 levothyroxine 50 MCG tablet 50 mcg PO DAILY@0730 RF: 0 allopurinol 300 MG tablet 300 mg PO DAILY RF: 0 quetiapine [Seroquel] 300 MG tablet 300 mg PO HS RF: 0 rosuvastatin [Crestor] 20 MG tablet 20 mg PO HS RF: 0 metformin [Glucophage] 1,000 MG tablet 1,000 mg PO BID@0800,1700 Qty: 0 RF: 0 glimepiride [Amaryl] 4 MG tablet 4 mg PO DAILY@0800 RF: 0 acetaminophen [Tylenol] 325 MG tablet 2 tab PO Q4H PRN PRNRF: 0 gabapentin 300 MG capsule 300 mg PO QPM PRN (Reason: Headache) Qty: 14 RF: 0 cyanocobalamin (vitamin B-12) [Vitamin B-12] 1,000 MCG tablet 1,000 mcg PO DAILY RF: 0 tramadol 50 mg Tablet 1 tab PO PRN PRNRF: 0 Discharge Instructions Instructions: General Headache (ED) Additional Instructions: Please drink plenty of fluids to stay hydrated. Take your medication as prescribed. Please contact your neurologist and primary care physician to arrange follow-up. Return to the ER for any worsening or new concerning symptoms. Referrals: Alisa Ramirez MD [Primary Care Provider] - Medical Decision Making 67yo m with multiple medical problems including chronic subdural hematoma, frequent headaches, here today with severe headache. Neuro intact. Stat CT head interpreted by radiology: IMPRESSION: 1. No acute intracranial abnormality. 2. 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 3. Enlarged pituitary gland. Patient given Compazine 10 mg IV, Benadryl 25 mg p.o., and Tylenol 650 mg p.o. Labs reviewed and nondiagnostic. Patient reassessed and notes complete resolution of his pain. Patient ambulating with normal gait and no neuro deficits. I reviewed results with the patient and advised that we proceed to CTA of his head to assess for any acute bleeding that is not seen on the CT of his head. Patient declined further diagnostics at this time. I explained to the patient that he may have life-threatening or lifestyle modifying disease that would go undiagnosed should we not pursue additional diagnostics at this time and patient still declined. I explained to him that while his pain may have resolved with medications to stop mean that he does not have severe disease. He verbalized understanding of my concern, and was appreciative of care, but noted that he would prefer to follow-up outpatient. HPI General Mode of arrival: ambulatory . Date/Time Provider Initiated Documentation: 04/13/18 15:47 . Limitations to Documentation: no limitations . Information obtained by: patient . HPI Narrative: 67-year-old male with multiple medical problems including history of chronic subdural hemorrhage, chronic headache, presents today with chief complaint of headache. Patient notes that he was at physical therapy and had fairly sudden onset of severe headache about 1 hour prior to arrival. Headache localized to the top of his head. Headache has been constant and severe. He has had associated nausea and vomiting. No associated fever. No neck stiffness. No new numbness or weakness. No visual changes. Related Data Home Medications Medication Instructions Recorded Confirmed allopurinol 300 mg PO DAILY 01/24/13 04/13/18 levothyroxine 50 mcg PO DAILY@0730 01/24/13 04/13/18 quetiapine [Seroquel] 300 mg PO HS 01/24/13 04/13/18 ranitidine HCl [Zantac Maximum 75 mg PO DAILY tab-cap 06/19/16 04/13/18 Strength] glimepiride [Amaryl] 4 mg PO DAILY@0800 01/11/17 04/13/18 rosuvastatin [Crestor] 20 mg PO HS 03/22/17 04/13/18 docusate sodium [Dulcolax Stool 100 mg PO DAILY PRN 04/08/17 04/13/18 Softener (dss)] nitroglycerin [Nitrostat] 0.4 mg SUBLINGUAL as directed 04/08/17 04/13/18 polyethylene glycol 3350 [Miralax] 17 g PO DAILY #255 gm 04/08/17 04/13/18 acetaminophen [Tylenol] 2 tab PO Q4H PRN PRN tab 05/24/17 04/13/18 metformin [Glucophage] 1,000 mg PO BID@0800,1700 #0 05/28/17 04/13/18 insulin detemir U-100 [Levemir 50 units SUBCUT BID 08/04/17 04/13/18 FlexTouch U-100 Insuln] gabapentin 300 mg PO QPM PRN #14 capsule 10/30/17 04/13/18 lisinopril 20 mg PO DAILY tab-cap 11/25/17 04/13/18 topiramate [Topamax] 50 mg PO DAILY cap.sprink 11/25/17 04/13/18 cyanocobalamin (vitamin B-12) 1,000 mcg PO DAILY 12/27/17 04/13/18 [Vitamin B-12] riboflavin (vitamin B2) [Vitamin 100 mg PO DAILY 01/31/18 04/13/18 B-2] carvedilol 25 mg PO BID #120 tab-cap 02/07/18 04/13/18 tramadol 1 tab PO PRN PRN 03/22/18 04/13/18 Previous Rx's Medication Instructions Recorded acetaminophen [Tylenol] 2 tab PO Q4H PRN PRN tab 05/24/17 metformin [Glucophage] 1,000 mg PO BID@0800,1700 #0 05/28/17 gabapentin 300 mg PO QPM PRN #14 capsule 10/30/17 carvedilol 25 mg PO BID #120 tab-cap 02/07/18 Allergies Allergy/AdvReac Type Severity Reaction Status Date / Time amoxicillin Allergy Severe breathing Unverified 04/13/18 15:37 difficuty and vomiting Penicillins Allergy Skin Rash Unverified 04/13/18 15:37 sulfamethoxazole Allergy Skin Rash Unverified 04/13/18 15:37 [From Bactrim] trimethoprim [From Bactrim] Allergy Skin Rash Unverified 04/13/18 15:37 oxycodone HCl [From Percocet] AdvReac Severe Contraindic Unverified 04/13/18 15: 37 ated oxycodone terephthalate AdvReac Severe Contraindic Unverified 04/13/18 15:37 [From Percodan] ated General Stated Complaint: Headache MADELIN: 2 Review of Systems Review of Systems All systems reviewed & are unremarkable except as noted in HPI and below Constitutional Denies fever(s) Neurologic Reports as per HPI Comments: chronic weakness left side, unchanged PFSH Medical History CAD (coronary artery disease) Chronic low back pain Colon polyps DM type 2 (diabetes mellitus, type 2) Depression Diastasis recti Fatty liver GERD (gastroesophageal reflux disease) Gout H/O alcohol abuse Headaches due to 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 Hx of deep venous thrombosis Hyperlipidemia Hypertension Hypothyroidism MRSA infection Obstructive sleep apnea Urethral stricture Vitamin D deficiency Social History Smoking/Tobacco Use Status: Former Tobacco Use Surgical History Appendectomy (06/01/16) Colonoscopy - MAC Coronary Artery Bypass Gaft (CABG) Extraction of cataract Repair of inguinal hernia (08/05/17) Repair of umbilical hernia electroconvulsive therapy facial lesion removal Exam Const General: cooperative and uncomfortable Orientation: alert and awake HENMT Head: normocephalic and atraumatic Mouth: moist mucous membranes Eyes Conjunctivae: normal conjunctivae Sclera: normal sclerae Pupils: PERRL and pupil size (4) bilaterally EOM: EOM intact bilaterally Neck Neck: trachea midline and supple Resp Auscultation: clear to auscultation bilaterally, no rales, no rhonchi and no wheezes Cardio Jugular venous pressure: no JVD Rate: regular rate and not tachycardic Rhythm: regular rhythm GI Palpation: soft, not firm, no guarding, no masses, not rigid and nontender Skin General skin exam: no rashes or lesions noted Neuro General: alert, awake, oriented x3 and tone normal Cranial Nerves: CN's II-XI intact bilaterally Cognition: normal cognition Speech: speech normal Motor: strength abnormal (LUE 4/5) Extrem General: no edema Psych Appearance: grossly normal Mental Status: mental status grossly normal Speech and Movement: speech and movement normal Course Vital Signs Temperature 36.3 C L 04/13/18 15:32 Pulse 88 04/13/18 15:32 Respiratory Rate 20 04/13/18 15:32 Blood Pressure 174/91 H 04/13/18 15:32 Pulse Oximetry 98 04/13/18 15:32 Temperature 37.6 C H 04/13/18 17:29 Temperature Source Skin 04/13/18 17:29 Pulse 80 04/13/18 18:00 Pulse 79 04/13/18 18:10 Respiratory Rate 24 04/13/18 18:10 Respiratory Effort 04/13/18 15:34 Blood Pressure 154/84 H 04/13/18 18:00 Blood Pressure Mean 102 04/13/18 18:00 Pulse Oximetry 96 04/13/18 17:50 Oxygen Delivery Method Room Air 04/13/18 17:29 Oxygen Flow Rate 0 04/13/18 17:29 Pain Level 10 04/13/18 17:22 Comment 04/13/18 16:44 Lab/Test Results Lab/Test Results: Laboratory Tests Range/Units 04/13/18 04/13/18 18:10 18:10 WBC (4.4-10.8) k/cumm 6.78 RBC (4.50-6.00) m/cumm 4.82 Hgb (13.5-17.5) g/dL 14.1 Hct (40.0-50.0) % 39.1 L MCV (80-95) fL 81.1 MCH (27.0-33.0) pg 29.3 MCHC (32.0-36.0) g/dL 36.1 H RDW (11.8-14.1) % 14.4 H Plt Count (130-400) x1000/uL 183 MPV (8.0-11.0) fL 8.8 Immature Gran % 0.3 Neutrophils % 74.3 Lymphocytes % 15.5 Monocytes % 6.9 Eosinophils % 2.1 Basophils % 0.9 Absolute Neutrophils (1.2-6.7) k/cumm 5.04 Absolute Lymphocytes (1.2-3.4) k/cumm 1.05 L Absolute Monocytes (0.11-0.7) k/cumm 0.47 Absolute Eosinophils (0.0-0.7) k/cumm 0.14 Absolute Basophils (0.0-0.2) k/cumm 0.06 Sodium (136-145) mmol/L 137 Potassium (3.5-5.1) mmol/L 4.1 Chloride (98-107) mmol/L 103 Carbon Dioxide (21.0-32.0) mmol/L 20.8 L Anion Gap (3-11) mmol/L 13.2 H BUN (7-18) mg/dL 13 Creatinine (0.70-1.30) mg/dL 1.02 Estimated GFR/1.73 m2 (mL/min/1.73m2) >= 60.00 Glucose (70-100) mg/dL 163 H Calcium (8.5-10.1) mg/dL 8.8
== END 2018-04-13 20:50 | disposition home or self-care (01) ==
PROVIDERS: Emergency Provider Student in an Organized Health Care Education/Training Program; PCP Family Medicine
DX: R51 Headache (principal); I62.03 Nontraumatic chronic subdural hemorrhage; Z53.29 Procedure and treatment not carried out because of patient's decision for other reasons; E11.9 Type 2 diabetes mellitus without complications; Z79.4 Long term (current) use of insulin; I10 Essential (primary) hypertension
CPT/HCPCS: 36415; 80048; 96361; 96374; 99284; 70450; 85025; 99285; J0780

== ENCOUNTER 2018-04-18 15:35 | Outpatient (REF) | payer MEDICARE, OTHER, SELFPAY ==
[2018-04-18 19:39] LABS: Bilirubin Negative (Negative); Blood Moderate (Negative); Clarity Clear; Glucose Negative (Negative); Ketones Negative (Negative); Leukocyte Esterase Negative (Negative); Nitrite Negative (Negative); Specific Gravity 1.025 (1.005-1.025); Urobilinogen 0.2 EU/dL (Up TO 0.2); pH 6.5 (5-8)
[2018-04-18 22:15] LABS: WBC 0-2 HPF (0-5)
[2018-04-18 22:25] LABS: Bacteria Rare HPF (Negative); C & S Indicated? C&S Done As Ordered; Casts Negative LPF (Negative); Crystals Negative HPF (Negative); Epithelial Cells Negative HPF (Negative); Mucus Negative (Negative); Other Cells Negative (Negative)
== END 2018-04-18 15:55 ==
LOC: NCHCN 15:35
PROVIDERS: PCP Family Medicine; Visit Provider Nurse Practitioner Family
DX: R31.9 Hematuria, unspecified (principal); R82.90 Unspecified abnormal findings in urine
CPT/HCPCS: 81003; 81015; 87086

== ENCOUNTER 2018-04-28 20:50 | Observation (INO) | payer MEDICARE, OTHER, SELFPAY ==
[2018-04-28] VITALS (33 sets, daily range): BP systolic 116–162; BP diastolic 72–97; PULSE 95–108; RESP 14–34; TEMP 36.7; O2SAT 96–100
--- NOTE | 2018-04-28 20:59 | DI.RAD_ITS ---
SYMPTOMS/DIAGNOSIS: LEFT ARM PAIN, ? ACUTE DISEASE CHEST X-RAY, FRONTAL AND LATERAL VIEWS: Comparison is 04/13/18. The heart size and pulmonary vasculature are within normal limits. There are sternal wires in place. The patient is status post CABG. The lungs show no evidence of acute pneumonia. No effusions or pneumothoraces are identified. Degenerative changes are seen in the spine. Stable compression deformity is seen in the upper lumbar spine. IMPRESSION: No acute pulmonary process.
--- NOTE | 2018-04-28 21:30 | W.ED.GENAD ---
Discharge Plan Disposition Patient Disposition: [facility] INPATIENT Condition: Stable Discharge Details Chief Complaint: Chest Pain Clinical Impression: Chest pain, rule out acute myocardial infarction, Left arm pain, History of coronary artery bypass graft Reason For Visit: CHEST/LEFT ARM PAIN, H/O CABG Admit Date/Time: 04/28/18 23:37 Admit Provider: Unruly Eller Attending Provider: Unruly Eller Primary Care Provider: Alisa Ramirez ED Provider: Apple Enriquez Medical Decision Making 67-year-old male history of CAD, diabetes type 2, hypertension, hyperlipidemia, CABG who presents with left-sided chest and arm pain since this evening. Symptoms started while at rest after physical therapy this evening for his back. Also admits to nausea and dizziness earlier, denies any shortness of breath. Last stress test 2 years ago. Denies any chest pain at present. Admitted to a brief episode of return of left arm pain during evaluation. Blood pressure mildly hypertensive, heart rate 90s, respirations 20s, afebrile, O2 sat 100% on room air. Patient appears comfortable and in no respiratory distress. Left anterior chest tender to palpation and pain in left arm reproducible with left arm movement. Pain may be musculoskeletal related to his physical therapy however with patient's significant cardiac history and complaint of nausea and dizziness, I am also concerned about a cardiac etiology. Will do a cardiac workup including labs, chest x-ray. EKG noted a rate of 99, sinus, questionable less than [address] depression noted in 2, aVF. T wave inversion noted in 1, 2, aVF, V3 through V6. These changes appear new compared to previous EKG. 2330 --discussed with hospitalist - accepts patient for admission. 1210 --patient admitted to relief of pain with Toradol then shortly after admitted to return of chest pain. Patient had become tearful after his left and expressed that he missed his dog. A repeat EKG was done which noted more pronounced [address] depression/T wave inversion noted in inferolateral leads. A right-sided EKG was done which noted similar findings in the inferior leads. Repeat troponin negative. Patient also complained of heartburn and nausea with acid taste in mouth similar to what he has had over the past few days. A dose of Pepcid, Zofran and Ativan ordered. Dr. Oliver notified. HPI General Mode of arrival: ambulatory. Date/Time Provider Initiated Documentation: 04/28/18 20:57. Limitations to Documentation: no limitations. Information obtained by: patient. HPI Narrative: Patient is a 67-year-old male with a significant cardiac history including CABG in 2016 at [facility], CAD, hypertension, hyperlipidemia, diabetes who presents with left-sided chest pain and left arm pain since this evening. Patient states he has been receiving physical therapy for his lower back for the past 2 months and had a session this evening in which he used a new back machine which required him extending his back against a weight. He also used in our machine with ropes which she has used in the past. He states he developed left arm pain extending from his left shoulder down into his forearm in the car on the way back from physical therapy. He states short time after while sitting due to at home he developed left-sided chest pain which he describes as an ache which radiated to his left arm. He states the chest pain resolved after 2 hours and was 5/10 at its worst. He has no chest pain at present. He admits to some nausea and dizziness that occurred during this episode. He states mainly now he feels tired. Patient also admits to feeling heartburn and acid taste in his mouth for the past few days. Patient denies shortness of breath, recent travel, recent surgery. Denies any aggravating factors to his left arm and chest pain. States his last stress test was in 2016. Past medical history: CAD, diabetes type 2, GERD, gout, hypertension, hyperlipidemia, hypothyroidism, obstructive sleep apnea, alcohol use, DVT, subdural hemorrhage Surgical history: Appendectomy, CABG, cataract surgery, hernia repair Social history: Former smoker: Denies alcohol or drugs Medications: See list Allergies: Penicillin, sulfa, oxycodone PCP: Dr. Ramirez Related Data Home Medications Medication Instructions Recorded Confirmed allopurinol 300 mg PO DAILY 01/24/13 04/28/18 levothyroxine 50 mcg PO DAILY@0730 01/24/13 04/28/18 quetiapine [Seroquel] 300 mg PO HS 01/24/13 04/28/18 ranitidine HCl [Zantac Maximum 75 mg PO DAILY tab-cap 06/19/16 04/28/18 Strength] glimepiride [Amaryl] 4 mg PO DAILY@0800 01/11/17 04/28/18 rosuvastatin [Crestor] 20 mg PO HS 03/22/17 04/28/18 docusate sodium [Dulcolax Stool 100 mg PO DAILY PRN 04/08/17 04/28/18 Softener (dss)] nitroglycerin [Nitrostat] 0.4 mg SUBLINGUAL as directed 04/08/17 04/28/18 polyethylene glycol 3350 [Miralax] 17 g PO DAILY #255 gm 04/08/17 04/28/18 acetaminophen [Tylenol] 2 tab PO Q4H PRN PRN tab 05/24/17 04/28/18 metformin [Glucophage] 1,000 mg PO BID@0800,1700 #0 05/28/17 04/28/18 insulin detemir U-100 [Levemir 50 units SUBCUT BID 08/04/17 04/28/18 FlexTouch U-100 Insuln] lisinopril 20 mg PO DAILY tab-cap 11/25/17 04/28/18 topiramate [Topamax] 50 mg PO DAILY [email or web address] 11/25/17 04/28/18 cyanocobalamin (vitamin B-12) 1,000 mcg PO DAILY 12/27/17 04/28/18 [Vitamin B-12] riboflavin (vitamin B2) [Vitamin 100 mg PO DAILY 01/31/18 04/28/18 B-2] carvedilol 25 mg PO BID #120 tab-cap 02/07/18 04/28/18 tramadol 1 tab PO PRN PRN 03/22/18 04/28/18 gabapentin 300 mg PO BID 04/28/18 04/28/18 Previous Rx's Medication Instructions Recorded acetaminophen [Tylenol] 2 tab PO Q4H PRN PRN tab 05/24/17 metformin [Glucophage] 1,000 mg PO BID@0800,1700 #0 05/28/17 carvedilol 25 mg PO BID #120 tab-cap 02/07/18 Allergies Allergy/AdvReac Type Severity Reaction Status Date / Time amoxicillin Allergy Severe breathing Unverified 04/28/18 20:58 difficuty and vomiting Penicillins Allergy Skin Rash Unverified 04/28/18 20:58 sulfamethoxazole Allergy Skin Rash Unverified 04/28/18 20:58 [From Bactrim] trimethoprim [From Bactrim] Allergy Skin Rash Unverified 04/28/18 20:58 oxycodone HCl [From Percocet] AdvReac Severe Contraindic Unverified 04/28/18 20:58 ated oxycodone terephthalate AdvReac Severe Contraindic Unverified 04/28/18 20:58 [From Percodan] ated General Stated Complaint: Chest Pain MADELIN: 2 Review of Systems Review of Systems All systems reviewed & are unremarkable except as noted in HPI and below Constitutional Denies chills, Denies excessive sweating, Denies fatigue, Denies fever(s), Denies weakness and Denies weight loss Eyes Reports system reviewed and no additional complaints, except as docu and Denies blurry vision ENT Denies vertigo, Denies dizziness, Denies otalgia, Denies nasal congestion, Denies sore throat and Denies throat swelling Cardiovascular Reports chest pain, Denies syncope, Denies rapid heart rate and Denies dyspnea Respiratory Denies dyspnea Gastrointestinal Denies abdominal pain, Denies diarrhea and Denies vomiting Genitourinary Denies hematuria, Denies dysuria and Denies flank pain Musculoskeletal Denies back pain and Denies joint swelling Integumentary/Breasts Denies lesions and Denies rash Neurologic Denies behavioral changes, Denies confusion, Denies vertigo, Denies dizziness, Denies syncope and Denies weakness Psychiatric Denies behavioral changes, Denies confusion and Denies depression Endocrine Denies excessive sweating and Denies fatigue Hematologic/Lymphatic Denies easy bruising and Denies lymphadenopathy Allergic/Immunologic Denies throat swelling [facility] Medical History CAD (coronary artery disease) Chronic low back pain Colon polyps DM type 2 (diabetes mellitus, type 2) Depression Diastasis recti Fatty liver GERD (gastroesophageal reflux disease) Gout H/O alcohol abuse Headaches due to 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 Hx of deep venous thrombosis Hyperlipidemia Hypertension Hypothyroidism MRSA infection Obstructive sleep apnea Urethral stricture Vitamin D deficiency Social History Smoking/Tobacco Use Status: Former Tobacco Use Surgical History Appendectomy (06/01/16) Colonoscopy - MAC Coronary Artery Bypass Gaft (CABG) Extraction of cataract Repair of inguinal hernia (08/05/17) Repair of umbilical hernia electroconvulsive therapy facial lesion removal Exam Const General: cooperative and no acute distress Orientation: alert, awake and oriented x3 HENMT Head: normal to inspection Ears: hearing grossly normal bilaterally and external ears normal General nose exam: external nose normal Face and sinus: normal facial exam Eyes General: appearance normal, both eyes and all related structures Eyelids: eyelids normal EOM: EOM intact bilaterally Neck Neck: normal visual inspection Lymphatic: no lymphadenopathy noted Chest Chest: normal inspection of the chest and tenderness (Left anterior chest) Resp Effort & Inspection: normal respiratory effort and able to speak in complete sentences Auscultation: clear to auscultation bilaterally Cardio Rate: regular rate Rhythm: regular rhythm GI Inspection: normal to inspection and obesity Palpation: soft, not firm, no guarding, no hepatosplenomegaly, no masses and nontender Auscultation: normal bowel sounds Skin General skin exam: no rashes or lesions noted Neuro General: alert and awake Cognition: normal cognition Speech: speech normal Gait: normal gait Motor: muscle tone normal throughout Sensory Exam: no sensory deficits noted Extrem General: normal to inspection, full ROM, normal capillary refill and edema (No bilateral lower extremity edema) Left upper extremity: normal to inspection and shoulder/upper arm (Pain reproducible in left upper arm with range of motion) Psych Appearance: grossly normal Mental Status: mental status grossly normal Speech and Movement: speech and movement normal Affect: normal affect Thought Process: normal Course Vital Signs Temperature 98.1 F 04/28/18 20:55 Pulse 98 H 04/28/18 20:55 Respiratory Rate 20 04/28/18 20:55 Blood Pressure 151/79 H 04/28/18 20:55 Pulse Oximetry 100 04/28/18 20:55 Temperature 98.1 F 04/28/18 20:55 Temperature Source Temporal Artery Scan 04/28/18 20:55 Pulse 98 H 04/28/18 20:55 Respiratory Rate 20 04/28/18 20:59 Respiratory Effort Non-Labored 04/28/18 20:59 Respiratory Depth Normal 04/28/18 20:59 Respiratory Pattern Normal 04/28/18 20:59 Blood Pressure 151/79 H 04/28/18 20:55 Blood Pressure Position Sitting 04/28/18 20:55 Pulse Oximetry 100 04/28/18 20:55 Oxygen Delivery Method Room Air 04/28/18 20:55 Oxygen Flow Rate 0 04/28/18 20:55 Pain Level 5 04/28/18 20:59
[2018-04-28 21:31] LABS: Abs Immature Grans 0.01 k/cumm (0.0-0.09); Absolute Basophil Count 0.09 k/cumm (0.0-0.2); Absolute Eosinophil Count 0.25 k/cumm (0.0-0.7); Absolute Lymphocyte Count 1.34 k/cumm (1.2-3.4); Absolute Monocyte Count 0.71 k/cumm (0.11-0.7); Absolute Neutrophil Count 3.87 k/cumm (1.2-6.7); Basophils % 1.4; HCT 36.6 % (40.0-50.0); HGB 12.8 g/dL (13.5-17.5); Immature Grans % 0.2; Lymphocytes % 21.4; Mean Corpuscular Hemoglobin 28.6 pg (27.0-33.0); Mean Corpuscular Volume 81.9 fL (80-95); Mean Platelet Volume 8.7 fL (8.0-11.0); Monocytes % 11.3; Neutrophils % 61.7; Platelet Count 180 x1000/uL (130-400); RBC 4.47 m/cumm (4.50-6.00); RBC Distribution Width 14.2 % (11.8-14.1); White Blood Cell Count 6.27 k/cumm (4.4-10.8)
[2018-04-28] MEDS: Aspirin 81 MG CHEW 162 MG CH (21:42)
[2018-04-28] MEDS: Acetaminophen 500 MG TAB (21:42)
[2018-04-28] MEDS: Normal Saline 1,000 ML 125 ML IV (21:42)
[2018-04-28 21:53] LABS: ALT 47 U/L (12-78); AST 32 U/L (15-37); Albumin 3.8 g/dL (3.4-5.0); Alkaline Phosphatase 89 U/L (46-116); Anion Gap 10.5 mmol/L (3-11); BUN 15 mg/dL (7-18); Bilirubin, Total 0.3 mg/dL (0.2-1.0); CO2 26.5 mmol/L (21.0-32.0); CREATININE 1.36 mg/dL (0.70-1.30); Calcium 9.1 mg/dL (8.5-10.1); Chloride 101 mmol/L (98-107); Estimated GFR 52.11 (mL/min/1.73m2); Glucose 270 mg/dL (70-100); Magnesium 2.2 mg/dL (1.8-2.4); Potassium 3.7 mmol/L (3.5-5.1); Sodium 138 mmol/L (136-145); Total Protein 6.9 g/dL (6.4-8.2)
[2018-04-28 21:54] LABS: Troponin I < 0.02 ng/mL (0.00-0.06)
--- NOTE | 2018-04-28 22:53 | DI.VRAD_ITS ---
EXAM: XR Chest, 2 Views EXAM DATE/TIME: 04/28/2018 9:02 PM CLINICAL HISTORY: 67 years old, male; Pain; Other: Left arm pain, R/O acute disease; Prior surgery; Surgery type: Double bypass 2015 TECHNIQUE: XR of the chest, 2 views. COMPARISON: CR CHEST 2 VIEWS PA,LAT 06/20/2017 4:41 PM FINDINGS: Lungs: No airspace consolidation. Pleural space: No pleural effusion. No pneumothorax. Heart/Mediastinum: CABG. Bones/joints: Median sternotomy wires. Degenerative changes in the spine. Chronic appearing compression deformity in the lower lumbar spine. Similar to prior. No acute bony pathology. IMPRESSION: No acute cardiopulmonary pathology. Dictated and Authenticated by: Keila Salazar MD. Ordering:RU EARL MD
[2018-04-28] MEDS: Ketorolac 30 MG/ML VIAL IVP (23:21)
[2018-04-28 23:40] LABS: NT-proBNP 55 pg/mL
[2018-04-29] VITALS (81 sets, daily range): BP systolic 99–180; BP diastolic 62–150; PULSE 70–143; RESP 12–39; TEMP 35.9–37.1; O2SAT 93–100
[2018-04-29] MEDS: FAMOTIDINE 20 MG/50 ML BAG 200 MG IVPB (00:24)
[2018-04-29] MEDS: LORazepam 2 MG/ML VIAL 0.5 MG IVP (00:24)
[2018-04-29] MEDS: Ondansetron 4 MG/2 ML VIAL IVP (00:24)
[2018-04-29 00:43] LABS: Troponin I < 0.02 ng/mL (0.00-0.06)
--- NOTE | 2018-04-29 01:22 | HPE_ITS ---
Date of service: 04/29/18 Time of Service: 00:30 Assessment and Plan (1) Atypical chest pain: Current visit: No Status: Acute Patient to be admitted overnight for observation; continue to cycle his troponin levels; consider chemical stress mpi in the a.m. (last stress test couple years ago according to the patient). If stress MPI is negative then consider further workup of GERD as outpatient. If worsening chest pain or dyspnea and no new EKG changes then consider rule out for P.E. however at present it seems that his arm pain was probably musculoskeletal and relieved by the Toradol and his chest pains may be d/t GERD as he has had water brash, bloating and nausea and so far no dynamic EKG changes and no elevation of his troponin levels. History of Present Illness Chief Complaint: Chest pain Narrative: 67-year-old male with a past medical history of coronary artery disease including 6 previous coronary stents and subsequent coronary artery bypass graft in 2016 at [facility], hypertension , diabetes mellitus requiring insulin, hyperlipidemia, chronic back pain, subdural hemorrhages. Patient has been in physical therapy for his back pain and developed acute left-sided chest pain and left arm pain this afternoon around 4:30 PM while returning home from physical therapy. He states he started new exercise regimen and therapy today which he had to use his back and upper body to push against some weights it was while he was driving home that he developed left-sided arm pain rating from his shoulder down to his forearm. At that time he had no chest pain and no shortness of breath but after returning home he started getting substernal chest pressure and his gave him a single sublingual nitroglycerin tablet which alleviated his chest discomfort which he rated a 5 out of 10 in severity. Patient has noted that he has had some recent abdominal bloating and dyspepsia. When he presented to the ER he was mildly hypertensive but in no acute respiratory distress w/ SPO2 of 100% on RA. His left anterior chest wall was tneder to palpation as was his left arm. Dr. Enriquez saw him in the emergency room and initially felt that his left chest wall and left arm pain were musculoskeletal and he had improvement w / Toradol although he says that the NTG he was given at home had totally taken away his chest pain. While in the ER the patient compalined of nausea and dyspepsia w/ water brash and he was treated in the ER with pepcid and zofran. Workup in the ER included serial EKG's which demonstrated SR 99 bpm with prominent anterior R waves c/w RVH and inferolateral ST-T depression/T wave inversion similar but more prominent compared to prior EKG's taken in January and September 2017. Labs included serial troponin I levels of which the first two are both less than 0.02. His BNP was normal at 55. His CBC and CMP were unremarkable except for glucose of 270 and Hb 12.8 gm. Patient is admitted overnight for evaluation of his chest/arm pain. Differential diagnosis includes GERD, musculoskeletal as well as new coronary ischemia. However, it appears that he is ruling out for ACS. Review of Systems Constitutional Reports as per [facility] Eyes Reports system reviewed and no additional complaints, [facility] ENT Reports system reviewed and no additional complaints, except as [facility] Cardiovascular Reports as per HPI, Reports chest pain at rest, Denies pedal edema, Denies orthopnea and Denies paroxysmal nocturnal dyspnea Gastrointestinal Denies abdominal pain, Denies melena, Reports bloating, Reports hematochezia ( will get some streaks of blood w/ severe constipation and straining at his stools) and Reports constipation (he only has BM every other day; has to use stool softeners and laxatives regularly) Genitourinary Reports system reviewed and no additional complaints, except as [facility] Musculoskeletal Reports as per [facility] Neurologic Reports paresthesias (has peripheral neuropathy) Psychiatric Reports abnormal sleep pattern, Reports difficulty concentrating and Reports mood swings (labile moods d/t his TBI) Endocrine Reports system reviewed and no additional complaints, except as [facility] Hematologic/Lymphatic Reports system reviewed and no additional complaints, except as docu PFSH Medical History CAD (coronary artery disease) Chronic low back pain Colon polyps DM type 2 (diabetes mellitus, type 2) Depression Diastasis recti Fatty liver GERD (gastroesophageal reflux disease) Gout H/O alcohol abuse Headaches due to 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 Hx of deep venous thrombosis Hyperlipidemia Hypertension Hypothyroidism MRSA infection Obstructive sleep apnea Urethral stricture Vitamin D deficiency Social History Smoking/Tobacco Use Status: Former Tobacco Use Surgical History Appendectomy (06/01/16) Colonoscopy - MAC Coronary Artery Bypass Gaft (CABG) Extraction of cataract Repair of inguinal hernia (08/05/17) Repair of umbilical hernia electroconvulsive therapy facial lesion removal Meds Home Medications Medication Instructions Recorded Confirmed Type allopurinol 300 mg PO DAILY 01/24/13 04/28/18 History levothyroxine 50 mcg PO DAILY@0730 01/24/13 04/28/18 History quetiapine [Seroquel] 300 mg PO HS 01/24/13 04/28/18 History ranitidine HCl [Zantac Maximum 75 mg PO DAILY tab-cap 06/19/16 04/28/18 History Strength] glimepiride [Amaryl] 4 mg PO DAILY@0800 01/11/17 04/28/18 History rosuvastatin [Crestor] 20 mg PO HS 03/22/17 04/28/18 History docusate sodium [Dulcolax Stool 100 mg PO DAILY PRN 04/08/17 04/28/18 History Softener (dss)] nitroglycerin [Nitrostat] 0.4 mg SUBLINGUAL as directed 04/08/17 04/28/18 History polyethylene glycol 3350 [Miralax] 17 g PO DAILY #255 gm 04/08/17 04/28/18 History acetaminophen [Tylenol] 2 tab PO Q4H PRN PRN tab 05/24/17 04/28/18 Rx metformin [Glucophage] 1,000 mg PO BID@0800,1700 #0 05/28/17 04/28/18 Rx insulin detemir U-100 [Levemir 100 units SUBCUT BID 08/04/17 04/29/18 History FlexTouch U-100 Insuln] lisinopril 20 mg PO DAILY tab-cap 11/25/17 04/28/18 History topiramate [Topamax] 50 mg PO DAILY cap.[email or web address] 11/25/17 04/28/18 History cyanocobalamin (vitamin B-12) 1,000 mcg PO DAILY 12/27/17 04/28/18 History [Vitamin B-12] riboflavin (vitamin B2) [Vitamin 100 mg PO DAILY 01/31/18 04/28/18 History B-2] carvedilol 25 mg PO BID #120 tab-cap 02/07/18 04/28/18 Rx tramadol 1 tab PO PRN PRN 03/22/18 04/28/18 History gabapentin 300 mg PO BID 04/28/18 04/28/18 History Allergies Allergy/AdvReac Type Severity Reaction Status Date / Time amoxicillin Allergy Severe breathing Unverified 04/28/18 20:58 difficuty and vomiting Penicillins Allergy Skin Rash Unverified 04/28/18 20:58 sulfamethoxazole Allergy Skin Rash Unverified 04/28/18 20:58 [From Bactrim] trimethoprim [From Bactrim] Allergy Skin Rash Unverified 04/28/18 20:58 oxycodone HCl [From Percocet] AdvReac Severe Contraindic Unverified 04/28/18 20: 58 ated oxycodone terephthalate AdvReac Severe Contraindic Unverified 04/28/18 20:58 [From Percodan] ated Exam Const General: cooperative, healthy appearing, comfortable, no acute distress and well developed Nutritional Appearance: average body habitus Orientation: alert, awake and oriented x3 HENMT Head: other (scar over right frontotemporal region from prior craniotomy) Head images: 2 1. scar from prior craniotomy; well closed; no induration nor any redness General nose exam: external nose normal and nares normal Face and sinus: normal facial exam, sinuses nontender and face symmetric Mouth: oral mucosae normal Throat: posterior oropharynx normal Eyes General: appearance normal, both eyes and all related structures Visual Moraes: normal visual moraes by confrontation Alignment and Position: alignment normal Periorbital: periorbital findings normal Eyelids: eyelids normal Conjunctivae: conjunctivae normal Sclera: sclerae normal Cornea: corneas normal Pupils: PERRL EOM: EOM intact bilaterally Resp Effort & Inspection: normal respiratory effort and able to speak in complete sentences Auscultation: clear to auscultation bilaterally Cardio Jugular venous pressure: no JVD Palpation: normal PMI Rate: regular rate Rhythm: regular rhythm Heart Sounds: S1 normal, S2 normal, no gallops, no murmurs and no rubs Bruits: no abdominal aortic bruits and no carotid bruits Pulses: normal peripheral pulses GI Inspection: distended and obesity Palpation: soft, no guarding, nontender and other Percussion: normal to percussion Auscultation: normal bowel sounds Rectal Exam: deferred Other: periumbilical scar from prior hernia repair Skin General skin exam: no rashes or lesions noted, elasticity normal, turgor normal and scars (right frontotemporal; periumbilical) Neuro General: alert, awake, oriented x3, moves all extremities, normal light touch, pain and propioception and no focal motor deficits Cranial Nerves: CN's II-XI intact bilaterally, PERRL, EOM intact bilaterally and facial strength normal Cognition: normal cognition Speech: speech normal Motor: muscle tone normal throughout, strength 5/5 throughout and no movement abnormalities noted Sensory Exam: no sensory deficits noted Extrem General: normal to inspection, full ROM, normal capillary refill, no joint enlargement, no clubbing, cyanosis or edema, no pedal edema and no calf tenderness Psych Appearance: grossly normal and well kempt Mental Status: mental status grossly normal Speech and Movement: speech and movement normal Mood: congruent mood Affect: sad (became tearful when he talked about his dog, a Min-Pin which recently ) Attitude: cooperative Thought Content: normal Insight: insight good Judgment: judgment good Results Imaging EKG: image reviewed Labs : 04/29/18 06:25 04/29/18 06:25 Laboratory Results - last 24 hr 04/28/18 04/28/18 04/28/18 21:20 21:20 21:20 WBC 6.27 RBC 4.47 L Hgb 12.8 L Hct 36.6 L MCV 81.9 MCH 28.6 MCHC 35.0 RDW 14.2 H Plt Count 180 MPV 8.7 Immature Gran % 0.2 Neutrophils % 61.7 Lymphocytes % 21.4 Monocytes % 11.3 Eosinophils % 4.0 Basophils % 1.4 Absolute Neutrophils 3.87 Absolute Lymphocytes 1.34 Absolute Monocytes 0.71 H Absolute Eosinophils 0.25 Absolute Basophils 0.09 Sodium 138 Potassium 3.7 Chloride 101 Carbon Dioxide 26.5 Anion Gap 10.5 BUN 15 Creatinine 1.36 H Estimated GFR/1.73 m2 52.11 Glucose 270 H Calcium 9.1 Magnesium 2.2 Total Bilirubin 0.3 AST 32 ALT 47 Alkaline Phosphatase 89 Troponin I < 0.02 NT-Pro-B Natriuret Pep 55 Total Protein 6.9 Albumin 3.8 04/29/18 00:10 WBC RBC Hgb Hct MCV MCH MCHC RDW Plt Count MPV Immature Gran % Neutrophils % Lymphocytes % Monocytes % Eosinophils % Basophils % Absolute Neutrophils Absolute Lymphocytes Absolute Monocytes Absolute Eosinophils Absolute Basophils Sodium Potassium Chloride Carbon Dioxide Anion Gap BUN Creatinine Estimated GFR/1.73 m2 Glucose Calcium Magnesium Total Bilirubin AST ALT Alkaline Phosphatase Troponin I < 0.02 NT-Pro-B Natriuret Pep Total Protein Albumin Last Vital Signs Temp 36.7 C 04/28/18 20:55 Pulse 98 H 04/29/18 00:46 Resp 24 04/29/18 00:50 BP 99/64 L 04/29/18 00:46 Pulse Ox 99 04/29/18 00:50
[2018-04-29] MEDS: QUEtiapine 300 MG TAB PO (02:12)
[2018-04-29] MEDS: Insulin Aspart 300 UNITS/3 ML PEN SC ×3 (03:11→12:43)
[2018-04-29] MEDS: Normal Saline 1,000 ML 125 ML IV (04:42)
[2018-04-29 07:14] LABS: Abs Immature Grans 0.01 k/cumm (0.0-0.09); Absolute Basophil Count 0.06 k/cumm (0.0-0.2); Absolute Eosinophil Count 0.19 k/cumm (0.0-0.7); Absolute Lymphocyte Count 1.28 k/cumm (1.2-3.4); Absolute Monocyte Count 0.58 k/cumm (0.11-0.7); Absolute Neutrophil Count 2.66 k/cumm (1.2-6.7); Basophils % 1.3; HCT 33.4 % (40.0-50.0); HGB 11.5 g/dL (13.5-17.5); Immature Grans % 0.2; Lymphocytes % 26.8; Mean Corp. HGB Concentration 34.4 g/dL (32.0-36.0); Mean Corpuscular Hemoglobin 28.5 pg (27.0-33.0); Mean Corpuscular Volume 82.9 fL (80-95); Mean Platelet Volume 9.1 fL (8.0-11.0); Monocytes % 12.1; Neutrophils % 55.6; Platelet Count 145 x1000/uL (130-400); RBC 4.03 m/cumm (4.50-6.00); RBC Distribution Width 13.9 % (11.8-14.1); White Blood Cell Count 4.78 k/cumm (4.4-10.8)
[2018-04-29 07:29] LABS: Anion Gap 11.7 mmol/L (3-11); BUN 19 mg/dL (7-18); CO2 21.3 mmol/L (21.0-32.0); Chloride 104 mmol/L (98-107); Glucose 263 mg/dL (70-100); Potassium 3.8 mmol/L (3.5-5.1); Sodium 137 mmol/L (136-145); Troponin I 0.02 ng/mL (0.00-0.06)
--- NOTE | 2018-04-29 08:00 | MERGEMPI_ITS ---
*[facility]* *[facility]* [address] [place] [address] Myocardial Perfusion Imaging - SPECT Regadenoson Date of study: 04/29/2018 *PATIENT PRESENTATION* Height: 179.1cm (70.5in) Blood Pressure: Weight: 90kg (198lb) BSA: 2.13m^2 Ordering physician: Dru Eller Impressions: Normal study after pharmacologic stress. Summary: 1. Myocardial perfusion imaging: No myocardial perfusion defects noted. 2. The calculated left ventricular ejection fraction after stress: 61%. LV global systolic function is normal. No left ventricular regional motion abnormality. Indication: R07.9. History: REASON FOR VISIT: ATYPICAL CHEST PAIN IN THIS INPATIENT WHO WAS ADMITTED OVERNIGHT FOR OBSERVATION. HE HAS A SIGNIFICANT CARDIAC HISTORY FOR CORONARY ARTERY DISEASE INCLUDING 6 PREVIOUS CORONARY STENTS AND SUBSEQUENT CORONARY ARTERY BYPASS GRAFT IN 2016 AT [facility], HYPERTENSION, DIABETES MELLITUS REQUIRING INSULIN, HYPERLIPIDEMIA, CHRONIC BACK PAIN AND SUBDURAL HEMORRHAGES. SERIAL TROPONINS ALL HAVE BEEN NEGATIVE. Risk factors: Hypertension. Diabetes mellitus. Obesity. Dyslipidemia. ALLERGIES: AMOXICILLIN. PENICILLINS. SULFAMETHOXAZOLE. TRIMETHOPRIM. OXYCODONE HCL. OXYCODONE TEREPHTHALATE. MEDICATIONS: ALLOPURINOL 300 MG. LEVOTHYROXINE 50 MCG DAILY. QUETIAPINE 300 MG Q HS. RANITIDINE HCL 75 MG. GLIMEPIRIDE 4 MG DAILY. ROSUVASTATIN 20 MG Q HS. NITROGYCERIN 0.4 MG SL PRN. METFORMIN 1000 MG BID. INSULIN DETEMIR U-100 50 UNITS SQ BID. LISINOPRIL 20 MG DAILY. TOPAMAX 50 MG DAILY. CYANOCOBALAMIN 1000 MCG DAILY. RIBOFLAVIN 100 B2 100 MG DAILY. CARVEDILOL 25 MG BID. TRAMADOL 1 TAB PRN. GABAPENTIN 300 MG BID. Imaging Technique: Protocol: Regadenoson. Acquisition: Gated SPECT; 1 day - rest/stress. The patient was imaged in the supine position. Attenuation correction used. Isotope administration: - Rest. Tc[99m]-sestamibi. Dose: 10.5mCi. Injection time: 11:00 AM. Injection to stress time: 00:45. - Stress. Tc[99m]-sestamibi. Dose: 32.3mCi. Injection time: 12:00 PM. 1-2 min before end of exercise Baseline ECG: SINUS RHYTHM. HR 88 BPM. INVERTED T-WAVES IN LEADS V3, V4, V5 & V6. ABNORMAL R-WAVE PROGRESSION EARLY TRANSITION. Stress protocol: +--------+---+ + + !Stage !HR !BP (mmHg) !Comments ! +--------+---+ + + !Baseline!86 !132/86 (101)! ! +--------+---+ + + !1 min !99 !152/82 (105)!Inject Regadenoson.! +--------+---+ + + !3 min !101!160/78 (105)! ! +--------+---+ + + !6 min !95 !144/72 (96) ! ! +--------+---+ + + * Stress results: The rate-pressure product for the peak heart rate and blood pressure was 09580sj Hg/min. Stress ECG: STRESS TEST ENDED IN 6 MINUTES AND 40 SECONDS. NORMAL HEART RATE AND NORMAL BLOOD PRESSURE RESPONSE TO LEXISCAN INJECTION NO ECTOPY BRIEF EPISODE OF LEFT SIDED CHEST PAIN REPORTED 3 MINUTES POST LEXISCAN INJECTION, SUBSIDED WITHIN SECONDS. T-WAVES INVERTED IN LEADS V3, V4, V5 & V6 AT BASELINE AND THROUGHOUT TESTING OTHERWISE NO SIGNINFICANT ST SEGMENT CHANGES Myocardial perfusion: Imaging information: gated. Left ventricular size is normal. No myocardial perfusion defects noted. Ventricular Function (Wall Motion): The calculated left ventricular ejection fraction after stress: 61%. LV global systolic function is normal. No left ventricular regional motion abnormality. Study data: Amena Hodges MD supervised and was readily available during the procedure. This study was interpreted by [facility]. Study status: Routine. Consent: The risks, benefits, and alternatives to the procedure were explained to the patient and informed consent was obtained. Procedure: Initial setup. A baseline ECG was recorded. Surface ECG leads and manual cuff blood pressure measurements were monitored. Heart sounds: Normal. Lung sounds: Normal. Regadenoson stress test. Stress testing was performed, with regadenoson by intravenous bolus, for a total dose of 0.4mgover 10.00sec, followed by a 5ml saline flush. The infusion was terminated due to per protocol. Study completion: All catheters inserted during the procedure were removed. The patient tolerated the procedure well and was discharged from the lab. Discharge: The patient left the laboratory in stable condition. Birthdate: Patient birthdate: 1950. Sex: Gender: male. Study date: Study date: 04/29/2018. Study time: 08:00 AM. Signature Documentation: - The imaging portion of this study was interpreted by Nuclear Unload Associate Amena Hodges MD. - The imaging portion of this study was interpreted by Nuclear Radiologist Tim Morales MD. - The Stress ECG portion of this study was interpreted by Amena Hodges MD. Electronically signed by Amena Hodges 04/29/2018 15:10
[2018-04-29] MEDS: Cyanocobalamin 500 MCG TAB 1000 MCG PO (08:11)
[2018-04-29] MEDS: Glimepiride 2 MG TAB 4 MG PO (08:13)
[2018-04-29] MEDS: Levothyroxine 50 MCG TAB PO (08:13)
[2018-04-29] MEDS: Gabapentin 300 MG CAP PO (08:13)
[2018-04-29] MEDS: metFORMIN 500 MG TAB 1000 MG PO (08:13)
[2018-04-29] MEDS: Lisinopril 20 MG TAB PO (08:14)
[2018-04-29] MEDS: Topiramate 50 MG TAB PO (08:14)
[2018-04-29] MEDS: Sucralfate 1 GM TAB PO ×2 (08:19→12:43)
--- NOTE | 2018-04-29 08:39 | PDOC.CMIN ---
- If Service Date Differs Date of service: 04/29/18 Time of Service: 08:40 Care Management Initial Assess REASON FOR HOSPITALIZATION:: Chest/left arm pain. 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 Surgical hx: Appendectomy, CABG, cataract surgery, hernia repair. PREVIOUS FUNCTIONAL STATUS/SOCIAL/FAMILY SUPPORTS:: Fredo resides with his Brittany in [facility]. He is retired and independent with ADLs and reports that he drives. CURRENT FUNCTIONAL STATUS:: Fredo is sitting on the edge of his bed shaving when CM visits him in the ICU this afternoon. He is engaged in conversation, makes good eye contact, and is talkative. Fredo reports that he is having chest pressure and left arm pain. RN Dora billy. Fredo states that he is fine continuing to speak with CM during his episode of pain, and he does not visibly appear in any discomfort or distress. Fredo reports that he has a Bipap at home but that he does not tolerate it well and his MD is aware. He has no supplemental O2 at home and has not required any while at [facility]. ADVANCE DIRECTIVES:: On file at [facility]. Brittany Osman; Health Care Agent. Has patient been provided with information about the portal?: Yes Did the patient sign up for the portal?: No CODE STATUS:: Full Code INSURANCE COVERAGE / FINANCIAL ISSUES:: [place], Medicare. CURRENT HOME/COMMUNITY SERVICES/EQUIPMENT:: Fredo has a case investigator (Emmanuelle) at [facility]. He has worked with [employer] in the past but reports he is not currently working with them. Fredo uses a cane for ambulation, and has hearing aids. Fredo reports that his hearing aids are not working and need to be returned to the company, and that he has a Bipap but does not use it. PRIMARY CARE PHYSICIAN:: Alisa Ramirez MD. POTENTIAL DISCHARGE NEEDS:: Follow up appointment with PCP. PATIENT/FAMILY EDUCATION NEEDS:: Discharge education, any limitations, and follow up plan of care. Ask Me Three discussion. ANTICIPATED BARRIERS TO DISCHARGE:: No anticipated barriers to discharge. TRANSPORTATION:: Fredo will transport via private vehicle with his , Brittany. PLAN:: Fredo will discharge home when medically ready per MD. Anticipate patient will discharge with no services and follow up with his PCP. CM will continue offer support to patient and care team regarding discharge planning and disposition.
--- NOTE | 2018-04-29 08:52 | INITIAL_ITS ---
- If Service Date Differs Date of service: 04/29/18 Time of Service: 08:40 Care Management Initial Assess REASON FOR HOSPITALIZATION:: Chest/left arm pain. 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 Surgical hx: Appendectomy, CABG, cataract surgery, hernia repair. PREVIOUS FUNCTIONAL STATUS/SOCIAL/FAMILY SUPPORTS:: Fredo resides with his Brittany in [facility]. He is retired and independent with ADLs and reports that he drives. CURRENT FUNCTIONAL STATUS:: Fredo is sitting on the edge of his bed shaving when CM visits him in the ICU this afternoon. He is engaged in conversation, makes good eye contact, and is talkative. Fredo reports that he is having chest pressure and left arm pain. RN Dora billy. Fredo states that he is fine continuing to speak with CM during his episode of pain, and he does not visibly appear in any discomfort or distress. Fredo reports that he has a Bipap at home but that he does not tolerate it well and his MD is aware. He has no supplemental O2 at home and has not required any while at [facility]. ADVANCE DIRECTIVES:: On file at [facility]. Brittany Osman; Health Care Agent. Has patient been provided with information about the portal?: Yes Did the patient sign up for the portal?: No CODE STATUS:: Full Code INSURANCE COVERAGE / FINANCIAL ISSUES:: [place], Medicare. CURRENT HOME/COMMUNITY SERVICES/EQUIPMENT:: Fredo has a rn case management (Emmanuelle ) at [facility]. He has worked with [employer] in the past but reports he is not currently working with them. Fredo uses a cane for ambulation, and has hearing aids. Fredo reports that his hearing aids are not working and need to be returned to the company, and that he has a Bipap but does not use it. PRIMARY CARE PHYSICIAN:: Alisa Ramirez MD. POTENTIAL DISCHARGE NEEDS:: Follow up appointment with PCP. PATIENT/FAMILY EDUCATION NEEDS:: Discharge education, any limitations, and follow up plan of care. Ask Me Three discussion. ANTICIPATED BARRIERS TO DISCHARGE:: No anticipated barriers to discharge. TRANSPORTATION:: Fredo will transport via private vehicle with his , Brittany. PLAN:: Fredo will discharge home when medically ready per MD. Anticipate patient will discharge with no services and follow up with his PCP. CM will continue offer support to patient and care team regarding discharge planning and disposition.
--- NOTE | 2018-04-29 09:28 | PHARADMIT ---
Admission Pharmacy Clinical Review CHEST/LEFT ARM PAIN, h/o CABG Code Status Full Code Current Weight Wgt- 89.8 kg Renally Cleared and Narrow Therapeutic Index Meds CrCl~ 60 mL/min Meds-OK QTc Value / Action Taken QTc-441 na BP Control, Fever BP-149/80 Tmax- 36.7C Electrolytes reviewed Na- 137 K+3.8 Mag-2.2 DVT Prophylaxis NONE Opiate Usage / Scheduled Bowel Regimen Ordered Yes Yes Plt/SCr for Heparin / Enoxaparin Plts-145 SCr-1.20 INR for Warfarin none H/H stable, WBC/Bands H&H- 11.5/33.4 WBC-4.78 Antibiotic appropriateness none Cultures and Sensitivities none na DM control / Insulin Dosing BG- 263, Aspart, Amaryl, Detemir, Metformin Heart Failure (Check EF%) (AURA's, B-Block, Diuretics) Coreg, Lisinopril, NTG IV to PO Switch No Home Meds Reviewed Yes Home Meds Not Ordered Riboflavin Comments
[2018-04-29] MEDS: Regadenoson 0.4 MG/5 ML SYR IVP (12:34)
[2018-04-29] MEDS: Polyethylene Glycol 3350 17 GM PACKET PO (12:43)
[2018-04-29] MEDS: Carvedilol 25 MG TAB PO (12:43)
--- NOTE | 2018-04-29 15:22 | DSE_ITS ---
Date of service: 04/29/18 Time of Service: 15:20 DS: Diagnosis Discharge Diagnosis (1) Atypical chest pain: Status: Acute (2) Coronary artery disease: Status: Chronic (3) Hyperlipidemia: Status: Chronic (4) Diabetes mellitus type 2 in obese: Status: Chronic Discharge Plan Disposition Patient Disposition: HOME Condition: Stable Discharge Details Reason For Visit: CHEST/LEFT ARM PAIN, H/O CABG Admit Date/Time: 04/28/18 23:37 Admit Provider: Unruly Eller Attending Provider: Unruly Eller Primary Care Provider: Alisa Ramirez [facility] Hospital Course: Mr Osman is a 67 year old male with PMHx of CAD s/p CABG in 2016 at [facility], as well as IDDM2, hypertension, hyperlipidemia, who presented to [facility] ED on with chest pain that started shortly after his cardiac rehab session and was aggravated by movement of his left arm. It was also relieved with nitroglycerin. He was placed in observation status and monitored on telemetry with no arrhythmias noted, unchanged EKG's with nonspecific ST changes, three negative troponins. He had a negative NPI. He was seen by Cardiology (Dr Hodges), who felt that the patient had musculoskeletal chest pain and could be discharged home with outpatient cardiology follow up in 2-3 weeks. Home Meds and New Rx's Prescriptions: Continue ranitidine HCl [Zantac Maximum Strength] 150 MG tablet 75 mg PO DAILY RF: 0 polyethylene glycol 3350 [Miralax] 17 GM powder in packet 17 g PO DAILY Qty: 255 RF: 0 nitroglycerin [Nitrostat] 0.4 MG tablet, sublingual 0.4 mg Sublingual as directed RF: 0 docusate sodium [Dulcolax Stool Softener (dss)] 100 MG capsule 100 mg PO DAILY PRNRF: 0 insulin detemir U-100 [Levemir FlexTouch U-100 Insuln] 100 UNIT/1 ML insulin pen 100 units subcut BID RF: 0 lisinopril 20 MG tablet 20 mg PO DAILY RF: 0 topiramate [Topamax] 25 MG capsule, sprinkle 50 mg PO DAILY RF: 0 riboflavin (vitamin B2) [Vitamin B-2] 100 MG tablet 100 mg PO DAILY RF: 0 carvedilol 25 MG tablet 25 mg PO BID Qty: 120 RF: 4 levothyroxine 50 MCG tablet 50 mcg PO DAILY@0730 RF: 0 allopurinol 300 MG tablet 300 mg PO DAILY RF: 0 quetiapine [Seroquel] 300 MG tablet 300 mg PO HS RF: 0 rosuvastatin [Crestor] 20 MG tablet 20 mg PO HS RF: 0 metformin [Glucophage] 1,000 MG tablet 1,000 mg PO BID@0800,1700 Qty: 0 RF: 0 glimepiride [Amaryl] 4 MG tablet 4 mg PO DAILY@0800 RF: 0 acetaminophen [Tylenol] 325 MG tablet 2 tab PO Q4H PRN PRNRF: 0 cyanocobalamin (vitamin B-12) [Vitamin B-12] 1,000 MCG tablet 1,000 mcg PO DAILY RF: 0 tramadol 50 mg Tablet 1 tab PO PRN PRNRF: 0 gabapentin 300 MG capsule 300 mg PO BID RF: 0 Discharge Instructions Instructions: Chest Pain (DC) Additional Instructions: Return to the hospital, with any chest pain that is not reproducible by movement of your arm/which starts with activity, any shortness of breath or bleeding. Rest your left arm and shoulder for the next couple of days. You may use tylenol, tramadol and alternative hot and cold compresses to the area every 4 hours while awake for the next couple of days while the muscular strain heals. Stand Alone Forms: Nursing Discharge Form Referrals: Alisa aRmirez MD [Primary Care Provider] - Amena Hodges MD [MD CONSULTING PHYSICIAN] - (2-3 weeks) Activity:: Activity as Tolerated Equipment/Supplies:: No Equipment Needed Diet:: heart healthy diabetic Discharge Orders Discharge Orders: Discharge Order (Routine); Ordered 04/29/18 Ordered By: Anette Duarte Exam Narrative Exam Narrative: General: A&OX3, SOKAOGON, NAD ENT: EOMI, MMM Heart: RRR. Chest pain is reproducible with palpation Lungs: CTAB GI: abdomen soft, nontender, nondistended Extremities: no edema, clubbing or cyanosis of BLE's DS: Data Vitals/I&O Vitals and I&O: Vital Signs Temperature 35.9 C L 04/29/18 12:43 Temperature Source Tympanic 04/29/18 12:43 Pulse 91 H 04/29/18 12:35 Pulse Rhythm Regular 04/29/18 08:00 Pulse 92 H 04/29/18 12:35 Respiratory Rate 19 04/29/18 12:35 Respiratory Effort 04/29/18 08:00 Respiratory Depth Normal 04/29/18 08:00 Respiratory Pattern Normal 04/29/18 08:00 Blood Pressure 141/81 H 04/29/18 12:35 Blood Pressure Mean 104 04/29/18 12:35 Blood Pressure Position Sitting 04/28/18 20:55 Pulse Oximetry 99 04/29/18 12:35 Oxygen Delivery Method Room Air 04/29/18 07:57 Oxygen Flow Rate 0 04/29/18 07:57 Pain Level 0 04/29/18 14:32 Comment 04/29/18 07:57 Intake & Output 04/28/18 04/29/18 04/29/18 23:59 11:59 23:59 Intake Total 2482.500 / 2482.500 360 / 360 Output Total 275 / 275 600 / 600 Balance 2207.500 / 2207.500 -240 / -240 Weight 90.7 kg 89.8 kg Intake: IV 1712.500 / 1712.500 0 / 0 Oral 770 / 770 360 / 360 Output: Urine 275 / 275 600 / 600 Other: Urine Color Light Asmita Light Asmita Urine Appearance Cloudy Clear Urine Odor Strong Normal Voiding Methods Urinal Urinal Completed studies during hospitalization [Text1]: MIRTA 04/29/2018: 1. Myocardial perfusion imaging: No myocardial perfusion defects noted. 2. The calculated left ventricular ejection fraction after stress: 61%. LV global systolic function is normal. No left ventricular regional motion abnormality. Labs on day of discharge: Labs from last 24 hours 04/29/18 04/29/18 04/29/18 06:25 06:25 00:10 WBC 4.78 RBC 4.03 L Hgb 11.5 L Hct 33.4 L MCV 82.9 MCH 28.5 MCHC 34.4 RDW 13.9 Plt Count 145 MPV 9.1 Immature Gran % 0.2 Neutrophils % 55.6 Lymphocytes % 26.8 Monocytes % 12.1 Eosinophils % 4.0 Basophils % 1.3 Absolute Neutrophils 2.66 Absolute Lymphocytes 1.28 Absolute Monocytes 0.58 Absolute Eosinophils 0.19 Absolute Basophils 0.06 Sodium 137 Potassium 3.8 Chloride 104 Carbon Dioxide 21.3 Anion Gap 11.7 H BUN 19 H Creatinine 1.20 Estimated GFR/1.73 m2 >= 60.00 Glucose 263 H Calcium 8.0 L Magnesium Total Bilirubin AST ALT Alkaline Phosphatase Troponin I 0.02 < 0.02 NT-Pro-B Natriuret Pep Total Protein Albumin 04/28/18 04/28/18 04/28/18 21:20 21:20 21:20 WBC 6.27 RBC 4.47 L Hgb 12.8 L Hct 36.6 L MCV 81.9 MCH 28.6 MCHC 35.0 RDW 14.2 H Plt Count 180 MPV 8.7 Immature Gran % 0.2 Neutrophils % 61.7 Lymphocytes % 21.4 Monocytes % 11.3 Eosinophils % 4.0 Basophils % 1.4 Absolute Neutrophils 3.87 Absolute Lymphocytes 1.34 Absolute Monocytes 0.71 H Absolute Eosinophils 0.25 Absolute Basophils 0.09 Sodium 138 Potassium 3.7 Chloride 101 Carbon Dioxide 26.5 Anion Gap 10.5 BUN 15 Creatinine 1.36 H Estimated GFR/1.73 m2 52.11 Glucose 270 H Calcium 9.1 Magnesium 2.2 Total Bilirubin 0.3 AST 32 ALT 47 Alkaline Phosphatase 89 Troponin I < 0.02 NT-Pro-B Natriuret Pep 55 Total Protein 6.9 Albumin 3.8
== END 2018-04-29 16:30 | disposition home or self-care (01) ==
LOC: ER 21:16 → ICU 04-29 01:04
PROVIDERS: Admitting Provider Internal Medicine; Emergency Provider Physician Assistant; PCP Family Medicine; Visit Provider Internal Medicine
DX: R07.89 Other chest pain (principal); I25.10 Atherosclerotic heart disease of native coronary artery without angina pectoris; E78.5 Hyperlipidemia, unspecified; E11.9 Type 2 diabetes mellitus without complications; E66.9 Obesity, unspecified; Z95.1 Presence of aortocoronary bypass graft; E03.9 Hypothyroidism, unspecified
CPT/HCPCS: 36415; 78452; 80048; 80053; 93005; 93016; 93018; 96361; 96374; 96375; 99217; 99220; 99285; 71046; 83735; 83880; 84484; 85025; 93010; 93017; G0378; J1885; J2060; J2405; J2785; J3490

== ENCOUNTER 2018-05-16 13:53 | Outpatient (REF) | payer MEDICARE, OTHER, SELFPAY ==
[2018-05-16 18:57] LABS: COMMENT (LAB VIEW ONLY) 58.02 mg/dL; Microalb ug/mg Crea 147.9 ug/mg Cr
== END 2018-05-16 14:13 ==
LOC: NCHCN 13:53
PROVIDERS: PCP Family Medicine; Visit Provider Family Medicine
DX: E11.9 Type 2 diabetes mellitus without complications (principal)
CPT/HCPCS: 82043; 82570

== ENCOUNTER 2018-05-20 16:07 | Emergency (ER) | payer MEDICARE, OTHER, SELFPAY ==
[2018-05-20] VITALS (9 sets, daily range): BP systolic 144–158; BP diastolic 67–82; PULSE 94–101; RESP 16–26; TEMP 36.9; O2SAT 94–99
--- NOTE | 2018-05-20 16:33 | DI.CT_ITS ---
SYMPTOMS/DIAGNOSIS: HEADACHE CT BRAIN, NONCONTRAST: Comparison is 03/22/18. There is mild patient motion artifact present. There is cerebral atrophy consistent with the patient's age. There are areas of decreased attenuation in the white matter consistent with small vessel ischemic disease. No acute intracranial hemorrhage, infarct, midline shift or mass effect is identified. There is again seen prominence of the CSF space in the left anterior cranial fossa, which appears stable. Note is again made of a jaylin hole in the right frontal bone. No acute fracture is seen. There is mucosal thickening seen in the visualized paranasal sinuses. The mastoid air cells are well pneumatized. The appearance of the pituitary gland and sella turcica is unchanged. IMPRESSION: No acute intracranial process.
--- NOTE | 2018-05-20 16:33 | DI.RAD_ITS ---
SYMPTOMS/DIAGNOSIS: COUGH CHEST X-RAY, PA AND LATERAL: Comparison is 04/28/18. The heart size and pulmonary vasculature are within normal limits. The patient is status post CABG. The lungs are clear. No effusions or pneumothoraces are identified. Degenerative changes are seen in the spine. IMPRESSION: No acute pulmonary process.
[2018-05-20] MEDS: Acetaminophen 325 MG TAB 650 MG PO (17:00)
[2018-05-20] MEDS: diphenhydrAMINE 50 MG/ML VIAL 25 MG IVP (17:00)
[2018-05-20] MEDS: Benzonatate 100 MG CAP PO (17:00)
[2018-05-20] MEDS: Prochlorperazine 10 MG/2 ML VIAL IVP (17:01)
[2018-05-20 17:03] LABS: Abs Immature Grans 0.02 k/cumm (0.0-0.09); Absolute Basophil Count 0.07 k/cumm (0.0-0.2); Absolute Eosinophil Count 0.25 k/cumm (0.0-0.7); Absolute Lymphocyte Count 1.27 k/cumm (1.2-3.4); Absolute Monocyte Count 0.73 k/cumm (0.11-0.7); Absolute Neutrophil Count 4.57 k/cumm (1.2-6.7); Eosinophils % 3.6; HGB 13.2 g/dL (13.5-17.5); Immature Grans % 0.3; Lymphocytes % 18.4; Mean Corp. HGB Concentration 35.7 g/dL (32.0-36.0); Mean Corpuscular Hemoglobin 28.6 pg (27.0-33.0); Mean Corpuscular Volume 80.3 fL (80-95); Mean Platelet Volume 8.6 fL (8.0-11.0); Monocytes % 10.6; Neutrophils % 66.1; Platelet Count 214 x1000/uL (130-400); RBC 4.61 m/cumm (4.50-6.00); RBC Distribution Width 14.1 % (11.8-14.1); White Blood Cell Count 6.91 k/cumm (4.4-10.8)
--- NOTE | 2018-05-20 17:16 | ED.GENADUL_ITS ---
Discharge Plan Disposition Patient Disposition: HOME Condition: Stable Discharge Details Chief Complaint: RespSymp Clinical Impression: Infection, respiratory tract, Headache Primary Care Provider: Alisa Ramirez ED Provider: Dimitry Ayon Home Meds and New Rx's Prescriptions: New benzonatate 200 mg capsule 200 mg PO TID PRN (Reason: cough) Qty: 30 RF: 0 azithromycin 250 mg tablet 250 mg PO DAILY Qty: 4 RF: 0 Continue ranitidine HCl [Zantac Maximum Strength] 150 MG tablet 75 mg PO DAILY RF: 0 polyethylene glycol 3350 [Miralax] 17 GM powder in packet 17 g PO DAILY Qty: 255 RF: 0 nitroglycerin [Nitrostat] 0.4 MG tablet, sublingual 0.4 mg Sublingual as directed RF: 0 docusate sodium [Dulcolax Stool Softener (dss)] 100 MG capsule 100 mg PO DAILY PRNRF: 0 insulin detemir U-100 [Levemir FlexTouch U-100 Insuln] 100 UNIT/1 ML insulin pen 100 units subcut BID RF: 0 lisinopril 20 MG tablet 20 mg PO DAILY RF: 0 topiramate [Topamax] 25 MG capsule, sprinkle 50 mg PO DAILY RF: 0 riboflavin (vitamin B2) [Vitamin B-2] 100 MG tablet 100 mg PO DAILY RF: 0 carvedilol 25 MG tablet 25 mg PO BID Qty: 120 RF: 4 levothyroxine 50 MCG tablet 50 mcg PO DAILY@0730 RF: 0 allopurinol 300 MG tablet 300 mg PO DAILY RF: 0 quetiapine [Seroquel] 300 MG tablet 300 mg PO HS RF: 0 rosuvastatin [Crestor] 20 MG tablet 20 mg PO HS RF: 0 metformin [Glucophage] 1,000 MG tablet 1,000 mg PO BID@0800,1700 Qty: 0 RF: 0 glimepiride [Amaryl] 4 MG tablet 4 mg PO DAILY@0800 RF: 0 acetaminophen [Tylenol] 325 MG tablet 2 tab PO Q4H PRN PRNRF: 0 cyanocobalamin (vitamin B-12) [Vitamin B-12] 1,000 MCG tablet 1,000 mcg PO DAILY RF: 0 tramadol 50 mg Tablet 1 tab PO PRN PRNRF: 0 gabapentin 300 MG capsule 300 mg PO BID RF: 0 Discharge Instructions Instructions: Upper Respiratory Infection (ED), Cold Symptoms (ED), General Headache (ED) Additional Instructions: Return immediately to the emergency department for any new or significant worsening of your symptoms including chest pain, shortness of breath, or high fevers. Otherwise take your medication as prescribed and follow-up with your primary care provider for reassessment if not improving over the next week Referrals: Alisa Ramirez MD [Primary Care Provider] - (As needed for reassessment or if not improving over the next week) Discharge Data Discharge Date/Time-TO BE ENTERED AT DEPARTURE: 05/20/18 18:36 Medical Decision Making Patient presenting to the emergency department for chief complaint of cough and headache. Patient states that for greater than 1 week he has had a persistent cough with worsening symptoms, productive sputum, and more malaise over the past 2-3 days. Patient does state today due to coughing episodes he has had a headache. Patient does have history of intracranial bleed and persistent headaches. Patient states that his biggest concern is his cough. Patient does state headache is not the same as his normal headaches. Physical exam shows harsh dry cough with clear lung moraes, some subjective nasal congestion, and otherwise normal neurological exam with no other physical exam findings noted. Patient is afebrile non-hypoxic and mentating appropriately. Plan to perform labs chest x-ray for concern of possible pneumonia and head CT due to medical history, coughing, and headache patient rates 10 out of 10. Results patient given Compazine, Benadryl, and acetaminophen along with Tessalon Perles for cough suppressant. Review of chest x-ray and head CT show no acute findings. Labs show no leukocytosis and are otherwise nondiagnostic. Patient reassessed and states some improvement of his cough and reduction of his headache down to a 4 out of 10. Given that patient has had respiratory tract symptoms for greater than 1 week and stating worsening of symptoms there is concern for possible need of antibiotics given patient's medical history. Given patient has no leukocytosis , afebrile, and normal chest x-ray decision was made to start patient on azithromycin as this may be viral in etiology but Levaquin was considered but I feel that that should be reserved for any symptoms. Did consider possible steroid dose but patient already has high blood sugar. Patient strongly encouraged to return for any new or significant worsening of symptoms otherwise to follow-up with primary care provider. Patient also prescribed Tessalon Perles for home use. After discussion of diagnosis and plan of care patient has no further needs, questions, or concerns and states clear understanding to return to the emergency department for any worsening symptoms. HPI General Mode of arrival: ambulatory . Date/Time Provider Initiated Documentation: 05/20/18 16:08 . Limitations to Documentation: no limitations . Information obtained by: patient and old records reviewed . History of Present Illness 67 year old M presents to the emergency department with the chief complaint of Cough/headache, described as moderate, with intensity rated at 10. Quality is described as aching, and is localized to the head. Patient started experiencing this week(s) (1) and it has been constant. No relieving factors improve symptom(s), Patient did receive the following treatments prior to arrival, other (Acetaminophen earlier in the day that improves symptoms) Related Data Home Medications Medication Instructions Recorded Confirmed allopurinol 300 mg PO DAILY 01/24/13 04/28/18 levothyroxine 50 mcg PO DAILY@0730 01/24/13 04/28/18 quetiapine [Seroquel] 300 mg PO HS 01/24/13 04/28/18 ranitidine HCl [Zantac Maximum 75 mg PO DAILY tab-cap 06/19/16 04/28/18 Strength] glimepiride [Amaryl] 4 mg PO DAILY@0800 01/11/17 04/28/18 rosuvastatin [Crestor] 20 mg PO HS 03/22/17 04/28/18 docusate sodium [Dulcolax Stool 100 mg PO DAILY PRN 04/08/17 04/28/18 Softener (dss)] nitroglycerin [Nitrostat] 0.4 mg SUBLINGUAL as directed 04/08/17 04/28/18 polyethylene glycol 3350 [Miralax] 17 g PO DAILY #255 gm 04/08/17 04/28/18 acetaminophen [Tylenol] 2 tab PO Q4H PRN PRN tab 05/24/17 04/28/18 metformin [Glucophage] 1,000 mg PO BID@0800,1700 #0 05/28/17 04/28/18 insulin detemir U-100 [Levemir 100 units SUBCUT BID 08/04/17 04/29/18 FlexTouch U-100 Insuln] lisinopril 20 mg PO DAILY tab-cap 11/25/17 04/28/18 topiramate [Topamax] 50 mg PO DAILY cap.sprink 11/25/17 04/28/18 cyanocobalamin (vitamin B-12) 1,000 mcg PO DAILY 12/27/17 04/28/18 [Vitamin B-12] riboflavin (vitamin B2) [Vitamin 100 mg PO DAILY 01/31/18 04/28/18 B-2] carvedilol 25 mg PO BID #120 tab-cap 02/07/18 04/28/18 tramadol 1 tab PO PRN PRN 03/22/18 04/28/18 gabapentin 300 mg PO BID 04/28/18 04/28/18 azithromycin 250 mg PO DAILY #4 tab 05/20/18 benzonatate 200 mg PO TID PRN #30 cap 05/20/18 Previous Rx's Medication Instructions Recorded acetaminophen [Tylenol] 2 tab PO Q4H PRN PRN tab 05/24/17 metformin [Glucophage] 1,000 mg PO BID@0800,1700 #0 05/28/17 carvedilol 25 mg PO BID #120 tab-cap 02/07/18 azithromycin 250 mg PO DAILY #4 tab 05/20/18 benzonatate 200 mg PO TID PRN #30 cap 05/20/18 Allergies Allergy/AdvReac Type Severity Reaction Status Date / Time amoxicillin Allergy Severe breathing Unverified 04/28/18 20:58 difficuty and vomiting Penicillins Allergy Skin Rash Unverified 04/28/18 20:58 sulfamethoxazole Allergy Skin Rash Unverified 04/28/18 20:58 [From Bactrim] trimethoprim [From Bactrim] Allergy Skin Rash Unverified 04/28/18 20:58 oxycodone HCl [From Percocet] AdvReac Severe Contraindic Unverified 04/28/18 20: 58 ated oxycodone terephthalate AdvReac Severe Contraindic Unverified 04/28/18 20:58 [From Percodan] ated General Stated Complaint: RespSymp MADELIN: 3 Review of Systems Constitutional Denies chills, Reports difficulty sleeping (Due to coughing), Reports fatigue, Denies fever(s) and Reports malaise ENT Denies otalgia, Denies nasal congestion, Denies sinus pressure and Denies sore throat Cardiovascular Denies syncope, Denies rapid heart rate, Denies irregular heart rhythm and Denies dyspnea Respiratory Reports change in phlegm color, Reports chest congestion, Reports pain with cough and Denies dyspnea Gastrointestinal Denies abdominal pain, Denies nausea and Denies vomiting Musculoskeletal Denies joint swelling Integumentary/Breasts Denies rash Neurologic Denies syncope Endocrine Reports fatigue PFSH CAD (coronary artery disease) Chronic low back pain Colon polyps DM type 2 (diabetes mellitus, type 2) Depression Diastasis recti Fatty liver GERD (gastroesophageal reflux disease) Gout H/O alcohol abuse Headaches due to 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 Hx of deep venous thrombosis Hyperlipidemia Hypertension Hypothyroidism MRSA infection Obstructive sleep apnea Urethral stricture Vitamin D deficiency Appendectomy (06/01/16) Colonoscopy - MAC Coronary Artery Bypass Gaft (CABG) Extraction of cataract Repair of inguinal hernia (08/05/17) Repair of umbilical hernia electroconvulsive therapy facial lesion removal Medical History CAD (coronary artery disease) Chronic low back pain Colon polyps DM type 2 (diabetes mellitus, type 2) Depression Diastasis recti Fatty liver GERD (gastroesophageal reflux disease) Gout H/O alcohol abuse Headaches due to 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 Hx of deep venous thrombosis Hyperlipidemia Hypertension Hypothyroidism MRSA infection Obstructive sleep apnea Urethral stricture Vitamin D deficiency Social History Smoking/Tobacco Use Status: Former Tobacco Use Surgical History Appendectomy (06/01/16) Colonoscopy - MAC Coronary Artery Bypass Gaft (CABG) Extraction of cataract Repair of inguinal hernia (08/05/17) Repair of umbilical hernia electroconvulsive therapy facial lesion removal Social History Smoking/Tobacco Use Status: Former Tobacco Use Exam Const General: cooperative, comfortable and no acute distress Orientation: alert, awake and oriented x3 HENMT Head: normal to inspection Ears: hearing grossly normal bilaterally and TM's normal bilaterally Face and sinus: normal facial exam and sinuses nontender Mouth: oral mucosae normal Throat: posterior oropharynx normal and tonsils normal Eyes General: appearance normal, both eyes and all related structures Conjunctivae: conjunctivae normal Sclera: sclerae normal Neck Neck: normal visual inspection, full ROM, no lymphadenopathy, meningismus present and no JVD Resp Effort & Inspection: normal respiratory effort, able to speak in complete sentences, no audible wheezes, cough Quality of cough: actively coughing and not labored Auscultation: clear to auscultation bilaterally Cardio Rate: regular rate Rhythm: regular rhythm Heart Sounds: S1 normal and S2 normal Skin General skin exam: no rashes or lesions noted and dry skin Rashes: no rashes Neuro General: alert, awake, oriented x3, gait normal, moves all extremities, no meningeal signs, no focal motor deficits, CN's II-XI intact bilaterally, not confused and not obtunded Cognition: normal cognition Speech: speech normal Gait: normal gait Course Vital Signs Temperature 36.9 C 05/20/18 16:12 Pulse 96 H 05/20/18 16:12 Respiratory Rate 18 05/20/18 16:12 Blood Pressure 158/82 H 05/20/18 16:12 Pulse Oximetry 98 05/20/18 16:12 Temperature 36.9 C 05/20/18 16:12 Temperature Source Skin 05/20/18 16:12 Pulse 96 H 05/20/18 16:12 Respiratory Rate 18 05/20/18 16:12 Blood Pressure 158/82 H 05/20/18 16:12 Blood Pressure Position Sitting 05/20/18 16:12 Pulse Oximetry 98 05/20/18 16:12 Oxygen Delivery Method Room Air 05/20/18 16:12 Oxygen Flow Rate 0 05/20/18 16:12 Pain Level 10 05/20/18 16:12 Comment 05/20/18 16:12 Lab/Test Results Lab/Test Results: Laboratory Tests Range/Units 05/20/18 16:45 WBC (4.4-10.8) k/cumm 6.91 RBC (4.50-6.00) m/cumm 4.61 Hgb (13.5-17.5) g/dL 13.2 L Hct (40.0-50.0) % 37.0 L MCV (80-95) fL 80.3 MCH (27.0-33.0) pg 28.6 MCHC (32.0-36.0) g/dL 35.7 RDW (11.8-14.1) % 14.1 Plt Count (130-400) x1000/uL 214 MPV (8.0-11.0) fL 8.6 Immature Gran % 0.3 Neutrophils % 66.1 Lymphocytes % 18.4 Monocytes % 10.6 Eosinophils % 3.6 Basophils % 1.0 Absolute Neutrophils (1.2-6.7) k/cumm 4.57 Absolute Lymphocytes (1.2-3.4) k/cumm 1.27 Absolute Monocytes (0.11-0.7) k/cumm 0.73 H Absolute Eosinophils (0.0-0.7) k/cumm 0.25 Absolute Basophils (0.0-0.2) k/cumm 0.07
[2018-05-20 17:55] LABS: ALT 36 U/L (12-78); AST 22 U/L (15-37); Albumin 3.7 g/dL (3.4-5.0); Alkaline Phosphatase 99 U/L (46-116); Anion Gap 11.7 mmol/L (3-11); BUN 11 mg/dL (7-18); Bilirubin, Total 0.3 mg/dL (0.2-1.0); CO2 22.3 mmol/L (21.0-32.0); Calcium 8.7 mg/dL (8.5-10.1); Chloride 101 mmol/L (98-107); Glucose 247 mg/dL (70-100); Potassium 3.9 mmol/L (3.5-5.1); Sodium 135 mmol/L (136-145); Total Protein 7.7 g/dL (6.4-8.2)
--- NOTE | 2018-05-20 17:57 | DI.VRAD_ITS ---
EXAM: XR Chest, 2 Views EXAM DATE/TIME: 05/20/2018 4:36 PM CLINICAL HISTORY: 67 years old, male; Signs and symptoms; Cough TECHNIQUE: XR of the chest, 2 views. COMPARISON: CR XR CHEST 2V PA LATERAL 04/28/2018 10:29 PM FINDINGS: Lungs: Unremarkable. No consolidation. Pleural space: Unremarkable. No pleural effusion. No pneumothorax. Heart/Mediastinum: Status post CABG. Bones/joints: Unremarkable. IMPRESSION: No acute abnormality. Dictated and Authenticated by: Sb Looney MD. Ordering:LIVAN HUNG MD
--- NOTE | 2018-05-20 18:00 | DI.VRAD_ITS ---
EXAM: CT Head Without Intravenous Contrast EXAM DATE/TIME: 05/20/2018 4:36 PM CLINICAL HISTORY: 67 years old, male; Pain; Headache; Headache not specified TECHNIQUE: Axial computed tomography images of the head/brain without intravenous contrast. Coronal and sagittal reformatted images were created and reviewed. COMPARISON: CT HEAD WO 04/13/2018 3:54 PM FINDINGS: Global cerebral atrophy is consistent with patient's age. There are minimal low density changes within the periventricular white matter both cerebral hemispheres which are nonspecific but typically seen with small vessel disease/chronic white matter ischemic changes of aging. No intracranial hemorrhage or mass effect is identified. The extra-axial fluid collection within the left anterior cranial fossa is unchanged. There is a right frontal bone jaylin hole, unchanged. There is enlargement of the sella turcica and pituitary gland, unchanged. IMPRESSION: No acute intracranial abnormality. Dictated and Authenticated by: Sb Looney MD. Ordering:LIVAN HUNG MD
== END 2018-05-20 18:36 | disposition home or self-care (01) ==
LOC: ER 18:50
PROVIDERS: Emergency Provider Nurse Practitioner Family; PCP Family Medicine
DX: J06.9 Acute upper respiratory infection, unspecified (principal); R51 Headache; Z87.891 Personal history of nicotine dependence; I10 Essential (primary) hypertension; E11.9 Type 2 diabetes mellitus without complications; Z79.4 Long term (current) use of insulin
CPT/HCPCS: 36415; 80053; 96374; 96375; 99284; 70450; 71046; 85025; J0780; J1200

== ENCOUNTER 2018-06-07 07:41 | Outpatient (CLI) | payer MEDICARE, OTHER, SELFPAY ==
--- NOTE | 2018-06-07 06:00 | DI.RAD_ITS ---
SYMPTOM/DIAGNOSIS: LUMBAR SPONDYLOSIS PAIN CLINIC: Fluoroscopy Time: 39.8 [place] are positioned over the right paramedian position at the level of L4-5 and L5-S1 in conjunction with a radiofrequency ablation carried out by Dr. Boucher. Please see the procedure report for further information.
[2018-06-07 07:55] VITALS: BP 110/75; PULSE 86; RESP 20; TEMP 36.7; O2SAT 98
[2018-06-07] MEDS: fentaNYL 100 MCG/2 ML VIAL IVP ×2 (08:26→08:33)
[2018-06-07] MEDS: Midazolam 2 MG/2 ML VIAL IVP (08:26)
[2018-06-07] MEDS: Lactated Ringers 1,000 ML 80 ML IV (08:27)
[2018-06-07 08:54] VITALS: BP 123/88; PULSE 86; RESP 18; O2SAT 99
--- NOTE | 2018-06-07 08:59 | PDOC.PAIN ---
Pain Clinic Procedure Note Current Active Problems Problem Status Onset Lumbosacral spondylosis without myelopathy Acute LUMBAR/SACRAL MEDIAL BRANCH RADIOFREQUENCY with the [employer] LANDRY RAY has been referred to the [facility] for radiofrequency treatment of chronic axial back pain. LANDRY has had long standing back pain thought to be facet joint generated and which has been refractory to other therapies. Local anesthetic medial branch blocks or intra-articular facet joint injections resulted in LANDRY reporting reduction of the usual axial component of pain for at least the duration of the local anesthetic effect. COMMENTS:Great relief with his last right L2-L5 RFA >6 months ago. DX: Lumbosacral spondylosis without myelopathy Patient was interviewed and the medical record reviewed. There were no medical, pharmacologic, radiographic or other structural contraindications to attempting fluoroscopically guided radiofrequency treatment. Risks and expected side effects as well as potential benefit of the procedure were reviewed and voiced concerns addressed. The printed consent form was signed and witnessed. Standard time-out procedure was performed. Patient was placed in the prone position on the fluoroscopy table and automated blood pressure cuff and pulse oximeter applied. The skin entry points for approaching the anatomic target points of the segmental medial branches of right L2-L5D were identified with fluoroscopy and marked. Following thorough Chlorhexadine preparation of the skin and draping and 1% lidocaine infiltration of the skin entry points and subcutaneous tissues, a single 18 guage curved 10 cm 10mm active tip radiofrequency cannula was placed under fluoroscopic guidance along or across the anatomic course of each respective segmental medial branch. Each placement was stimulated at 50Hz and les then 0.5V for medial branch sensory localization and the at 2Hz and up to 3 times the sensory voltage without any evidence of distal myotomal stimulation. 1cc of 1% ;idocaine was injected at each site. At each placement a continuous mode radiofrequency treatment was done at 80 degrees C for 90secs. This radiofrequency treatment should result in the denervation of the right L3-L4, L4-L5 and L5-S1 FACET JOINTS.~ A total of 3 facets were expected to be denervated from today's treatment. Vital signs were stable throughout the procedure and were as recorded in the docflowsheet by the nursing staff. If given, dosages of intravenous drugs for anxiolysis and analgesia were documented in the Medication Administration Record (MAR). Follow up plans and appointments were discussed. Post procedure instruction was given as documented in the nursing documentation and having met discharge criteria, LANDRY was discharged from the [facility]. COMMENTS: This procedure can be repeated if he receives >6 months relief. CC: Alisa Ramirez
[2018-06-07] MEDS: Bupivacaine 0.5% Pres-Free 30 ML VIAL IJ (09:00)
[2018-06-07] MEDS: methylPREDNISolone ACETATE 40 MG/ML VIAL IJ (09:00)
[2018-06-07] MEDS: Lidocaine 2% Pres-Free 5 ML VIAL IJ (09:00)
--- NOTE | 2018-06-07 09:03 | PDOC.PAIN_ITS ---
Pain Clinic Procedure Note Current Active Problems Problem Status Onset Lumbosacral spondylosis without myelopathy Acute LUMBAR/SACRAL MEDIAL BRANCH RADIOFREQUENCY with the [employer] LANDRY RAY has been referred to the [facility] for radiofrequency treatment of chronic axial back pain. LANDRY has had long standing back pain thought to be facet joint generated and which has been refractory to other therapies. Local anesthetic medial branch blocks or intra- articular facet joint injections resulted in LANDRY reporting reduction of the usual axial component of pain for at least the duration of the local anesthetic effect. COMMENTS:Great relief with his last right L2-L5 RFA >6 months ago. DX: Lumbosacral spondylosis without myelopathy Patient was interviewed and the medical record reviewed. There were no medical, pharmacologic, radiographic or other structural contraindications to attempting fluoroscopically guided radiofrequency treatment. Risks and expected side effects as well as potential benefit of the procedure were reviewed and voiced concerns addressed. The printed consent form was signed and witnessed. Standard time-out procedure was performed. Patient was placed in the prone position on the fluoroscopy table and automated blood pressure cuff and pulse oximeter applied. The skin entry points for approaching the anatomic target points of the segmental medial branches of right L2-L5D were identified with fluoroscopy and marked. Following thorough Chlorhexadine preparation of the skin and draping and 1% lidocaine infiltration of the skin entry points and subcutaneous tissues, a single 18 guage curved 10 cm 10mm active tip radiofrequency cannula was placed under fluoroscopic guidance along or across the anatomic course of each respective segmental medial branch. Each placement was stimulated at 50Hz and les then 0.5V for medial branch sensory localization and the at 2Hz and up to 3 times the sensory voltage without any evidence of distal myotomal stimulation. 1cc of 1% ;idocaine was injected at each site. At each placement a continuous mode radiofrequency treatment was done at 80 degrees C for 90secs. This radiofrequency treatment should result in the denervation of the right L3- L4, L4-L5 and L5-S1 FACET JOINTS.~ A total of 3 facets were expected to be denervated from today's treatment. Vital signs were stable throughout the procedure and were as recorded in the docflowsheet by the nursing staff. If given, dosages of intravenous drugs for anxiolysis and analgesia were documented in the Medication Administration Record (MAR). Follow up plans and appointments were discussed. Post procedure instruction was given as documented in the nursing documentation and having met discharge criteria, LANDRY was discharged from the [facility]. COMMENTS: This procedure can be repeated if he receives >6 months relief. CC: Alisa Ramirez
== END 2018-06-07 08:01 ==
PROVIDERS: PCP Family Medicine; Visit Provider Preventive Medicine Occupational Medicine
DX: M47.817 Spondylosis without myelopathy or radiculopathy, lumbosacral region (principal)
CPT/HCPCS: 64636 ×2; 64635; 72100; J1030; J2250; J3010

== ENCOUNTER 2018-07-08 20:05 | Emergency (ER) | payer MEDICARE, OTHER, SELFPAY ==
[2018-07-08 20:10] VITALS: BP 162/94; PULSE 97; RESP 18; TEMP 37.3; O2SAT 98
[2018-07-08] MEDS: Lidocaine 5% Patch 1 PATCH TP (21:02)
[2018-07-08] MEDS: Normal Saline 1,000 ML 1000 ML IV (21:02)
[2018-07-08] MEDS: Metoclopramide 10 MG/2 ML VIAL IVP (21:03)
[2018-07-08] MEDS: diphenhydrAMINE 50 MG/ML VIAL 25 MG IVP (21:03)
[2018-07-08] MEDS: Acetaminophen 500 MG TAB 1000 MG PO (21:04)
[2018-07-08] MEDS: methylPREDNISolone SUCC 125 MG VIAL IVP (21:04)
[2018-07-08] MEDS: MAGNESIUM SULFATE 1 GM/100 ML BAG IVPB (21:04)
--- NOTE | 2018-07-08 21:15 | NUR.NOTE ---
patient medicated per MD order, patient appears comfortbale at this time Nursing Note:
--- NOTE | 2018-07-08 21:55 | ED.GENADUL_ITS ---
Discharge Plan Disposition Patient Disposition: HOME Condition: Good Discharge Details Chief Complaint: Nk/Back Pain Clinical Impression: Migraine, Chronic back pain Primary Care Provider: Alisa Ramirez ED Provider: Christopher Lua Home Meds and New Rx's Prescriptions: New tramadol 50 mg tablet 50 mg PO Q6H Qty: 7 RF: 0 No Action ranitidine HCl [Zantac Maximum Strength] 150 MG tablet 75 mg PO DAILY RF: 0 polyethylene glycol 3350 [Miralax] 17 GM powder in packet 17 g PO DAILY Qty: 255 RF: 0 nitroglycerin [Nitrostat] 0.4 MG tablet, sublingual 0.4 mg Sublingual as directed RF: 0 docusate sodium [Dulcolax Stool Softener (dss)] 100 MG capsule 100 mg PO DAILY PRNRF: 0 Levemir FlexTouch U-100 Insuln 100 UNIT/1 ML insulin pen 100 units subcut BID RF: 0 lisinopril 20 MG tablet 20 mg PO DAILY RF: 0 topiramate [Topamax] 25 MG capsule, sprinkle 50 mg PO DAILY RF: 0 riboflavin (vitamin B2) [Vitamin B-2] 100 MG tablet 100 mg PO DAILY RF: 0 carvedilol 25 MG tablet 25 mg PO BID Qty: 120 RF: 4 levothyroxine 50 MCG tablet 50 mcg PO DAILY@0730 RF: 0 allopurinol 300 MG tablet 300 mg PO DAILY RF: 0 quetiapine [Seroquel] 300 MG tablet 300 mg PO HS RF: 0 rosuvastatin [Crestor] 20 MG tablet 20 mg PO HS RF: 0 metformin [Glucophage] 1,000 MG tablet 1,000 mg PO BID@0800,1700 Qty: 0 RF: 0 glimepiride [Amaryl] 4 MG tablet 4 mg PO DAILY@0800 RF: 0 acetaminophen [Tylenol] 325 MG tablet 2 tab PO Q4H PRN PRNRF: 0 tramadol 50 mg Tablet 1 tab PO PRN PRNRF: 0 gabapentin 300 MG capsule 300 mg PO BID RF: 0 Discharge Instructions Instructions: Migraine Headache (ED) Additional Instructions: If you notice any worsening of your symptoms, or any new symptoms such as vomiting, diarrhea, fever, chills, shortness of breath, chest pain, numbness, weakness, or fainting , please return immediately to the emergency department for reevaluation. Please follow up with your primary care provider as soon as possible for reassessment and reevaluation. As always, it was a pleasure participating in your medical care today. Referrals: Alisa Ramirez MD [Primary Care Provider] - Discharge Data Discharge Date/Time-TO BE ENTERED AT DEPARTURE: 07/08/18 22:02 Medical Decision Making This is a 67-year-old male with a past medical history of subdural hematoma, previous intracranial bleed, previous intracranial surgery, diabetes, hypertension, coronary artery disease, who is not on any blood thinners, was a strong history of chronic recurrent headaches secondary to his surgery and previous intracranial pathologies. He presents today for headache. He states that it is consistent with his previous headaches and there is no atypical modifiers. He shows no red flags of meningitis. Patient has had multiple imaging studies of his head in the past, including recently in the past 6 months. I discussed repeat imaging today and the patient is refusing imaging stating that he does not feel that there are any changes, and feels that it is just his regular migraines. We discussed risks and benefits of avoiding imaging and he understands. The patient also did complain of some mild right back pain which she states is chronic and unchanged. He has no red flags of saddle anesthesia, or signs or symptoms concerning for cauda equina syndrome. Patient is out of his tramadol and he is requesting refill on this. Patient is given a migraine cocktail for his headache, and a Lidoderm patch for his back. He has complete resolution of his headache, and near complete resolution of his back pain. Will recommend continued use of outpatient Lidoderm patch, we will review a few of his tramadol but do recommend close follow-up with his PCP. Repeat neurologic exam is normal after resolution of his migraine headache. I feel he can be safely discharged home. We discussed red flags which return. I have extensively reviewed the treatment plan and discharge instructions with the patient and their family. I have addressed all patient concerns at this time. The patient and family was made aware of what symptoms to monitor for that would warrant a return to the emergency department. Discussed the plan with the patient and family, they demonstrate verbal understanding and agreement with our assessment and plan at this time. HPI General Date/Time Provider Initiated Documentation: 07/08/18 20:16 . HPI Narrative: This is a 67-year-old male with a past medical history of subdural hematoma, previous intracranial bleed, previous intracranial surgery, diabetes, hypertension, coronary artery disease, who is not on any blood thinners, was a strong history of chronic recurrent headaches secondary to his surgery and previous intracranial pathologies. He presents today for headache. He states it began 3 hour prior to arrival. He states that it feels just like his other previous headaches that he has had. It is worse with light and loud noise. The patient denies any headache red flags of worst headache of life, thunderclap headache, neck pain, fever, chills, concerning family history of polycystic kid rodriguez disease, Marfan syndrome, Annika-Danlos syndrome, abdominal aortic aneurysm, aortic dissection. Patient also admits to chronic back pain on the right. He sees the pain clinic and specialist for this already. He states that he has run out of his tramadol and is requesting a refill. He denies any red flags of recent trauma, fall, IV drug use, bowel or bladder incontinence, saddle anesthesia, numbness tingling or weakness. He states that the symptoms of his back pain are consistent with his chronic back pain, and denies any acute change, he just feels that he has not been taking his tramadol and so his pain is worsened. No other complaints at this time. No other modifying factors Related Data Home Medications Medication Instructions Recorded Confirmed allopurinol 300 mg PO DAILY 01/24/13 07/08/18 levothyroxine 50 mcg PO DAILY@0730 01/24/13 07/08/18 quetiapine [Seroquel] 300 mg PO HS 01/24/13 07/08/18 ranitidine HCl [Zantac Maximum 75 mg PO DAILY tab-cap 06/19/16 07/08/18 Strength] glimepiride [Amaryl] 4 mg PO DAILY@0800 01/11/17 07/08/18 rosuvastatin [Crestor] 20 mg PO HS 03/22/17 07/08/18 docusate sodium [Dulcolax Stool 100 mg PO DAILY PRN 04/08/17 07/08/18 Softener (dss)] nitroglycerin [Nitrostat] 0.4 mg SUBLINGUAL as directed 04/08/17 07/08/18 polyethylene glycol 3350 [Miralax] 17 g PO DAILY #255 gm 04/08/17 07/08/18 acetaminophen [Tylenol] 2 tab PO Q4H PRN PRN tab 05/24/17 07/08/18 metformin [Glucophage] 1,000 mg PO BID@0800,1700 #0 05/28/17 07/08/18 Levemir FlexTouch U-100 Insuln 100 units SUBCUT BID 08/04/17 07/08/18 lisinopril 20 mg PO DAILY tab-cap 11/25/17 07/08/18 topiramate [Topamax] 50 mg PO DAILY cap.sprink 11/25/17 07/08/18 riboflavin (vitamin B2) [Vitamin 100 mg PO DAILY 01/31/18 07/08/18 B-2] carvedilol 25 mg PO BID #120 tab-cap 02/07/18 07/08/18 tramadol 1 tab PO PRN PRN 03/22/18 07/08/18 gabapentin 300 mg PO BID 04/28/18 07/08/18 tramadol 50 mg PO Q6H #7 tab 07/08/18 Previous Rx's Medication Instructions Recorded acetaminophen [Tylenol] 2 tab PO Q4H PRN PRN tab 05/24/17 metformin [Glucophage] 1,000 mg PO BID@0800,1700 #0 05/28/17 carvedilol 25 mg PO BID #120 tab-cap 02/07/18 tramadol 50 mg PO Q6H #7 tab 07/08/18 Allergies Allergy/AdvReac Type Severity Reaction Status Date / Time amoxicillin Allergy Severe breathing Unverified 07/08/18 20:19 difficuty and vomiting Penicillins Allergy Skin Rash Unverified 07/08/18 20:19 sulfamethoxazole Allergy Skin Rash Unverified 07/08/18 20:19 [From Bactrim] trimethoprim [From Bactrim] Allergy Skin Rash Unverified 07/08/18 20:19 oxycodone HCl [From Percocet] AdvReac Severe Contraindic Unverified 07/08/18 20:19 ated oxycodone terephthalate AdvReac Severe Contraindic Unverified 07/08/18 20:19 [From Percodan] ated General Stated Complaint: Nk/Back Pain MADELIN: 3 Review of Systems Review of Systems All systems reviewed & are unremarkable except as noted in HPI and below [facility] Social History Smoking/Tobacco Use Status: Former Tobacco Use Exam Narrative Exam Narrative: 1.Const: Well-nourished, Well-developed, appearing stated age 2.Eyes: PERRL, no conjunctival injection, and symmetrical lids. 3.ENT: Atraumatic external nose and ears. Moist MM. Neck: Symmetric, trachea midline, No thyromegaly. Patient demonstrates good movement of cervical neck. There is no nuchal rigidity, no nuchal tenderness. Patient is able to flex the neck without any difficulty or significant pain. Negative Kernig's and Brudzinski sign. 4.CVS: +S1/S2, No murmurs or gallops. Peripheral pulses 2+ and equal in all extremities. Brisk capillary refill in all extremities. 5.RESP: Unlabored respiratory effort. Clear to auscultation bilaterally. No wheezes rales or rhonchi 6.GI: Soft, Nontender/Nondistended, No hepatosplenomegaly. No guarding or rebound. 7.MSK: Normocephalic/Atraumatic, Extremities w/o deformity or ttp No cyanosis or clubbing, Normal movement of all extremities. No midline tenderness to palpation over the CTLS spine. Mild right paraspinal tenderness. No midline tenderness. Normal ROM in flexion, extension, side bend, and rotation. Patient has +5 out of 5 strength in the lower extremities in dorsiflexion and plantarflexion, knee flexion and extension, hip flexion and extension. There is +2 over 2 dorsalis pedis pulses bilaterally. There is normal sensation to the skin with light touch at the foot, knee, and hip. Normal saddle sensation. Good sensation over the deep sural nerve area bilaterally. Rectal exam deferred. Reflexes are +2 over 4 in the patellar reflex bilaterally. +5 out of 5 strength in the medial, ulnar, radial nerve distribution bilaterally in the hands as well as intact light touch sensation to these dermatomes on the hands 8.Skin: Warm, Dry. No rashes or lesions. 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 Sensation grossly intact, no focal neurologic deficits. All 6 cardinal planes of vision are fully intact. No evidence of rotatory or vertical nystagmus. The patient demonstrated a normal [id number]-maqpjf, good dexterity. There was no evidence of dysdiadochokinesia. Patient was able to ambulate without difficulty. There was no wide-based gait. Romberg, and [id number]-[id number] are both normal on testing. Sensation was intact bilaterally as well as muscle strength bilaterally for all extremities. Patient was able to verbalize butter cup with no slurring, or miss pronunciation. 10.Psych: (AAO) x3. Appropriate mood and affect Course Vital Signs Temperature 37.3 C 07/08/18 20:10 Pulse 97 H 07/08/18 20:10 Respiratory Rate 18 07/08/18 20:10 Blood Pressure 162/94 H 07/08/18 20:10 Pulse Oximetry 98 07/08/18 20:10 Temperature 37.3 C 07/08/18 20:10 Temperature Source Oral 07/08/18 20:10 Pulse 97 H 07/08/18 20:10 Respiratory Rate 18 07/08/18 20:10 Respiratory Effort 07/08/18 20:54 Blood Pressure 162/94 H 07/08/18 20:10 Pulse Oximetry 98 07/08/18 20:10 Oxygen Delivery Method Room Air 07/08/18 20:10 Oxygen Flow Rate 0 07/08/18 20:10 Pain Level 10 07/08/18 20:10
== END 2018-07-08 22:02 | disposition home or self-care (01) ==
PROVIDERS: Emergency Provider Student in an Organized Health Care Education/Training Program; PCP Family Medicine
DX: M54.5 Low back pain (principal); G89.29 Other chronic pain; G43.909 Migraine, unspecified, not intractable, without status migrainosus; W00.0XXA Fall on same level due to ice and snow, initial encounter; E11.9 Type 2 diabetes mellitus without complications; Z79.4 Long term (current) use of insulin; I10 Essential (primary) hypertension
CPT/HCPCS: 96361; 96365; 96375; 99284; J1200; J2765; J2930; J3475

== ENCOUNTER 2018-07-12 10:27 | Outpatient (CLI) | payer MEDICARE, OTHER, SELFPAY ==
[2018-07-12 11:00] LABS: HCT 39.1 % (40.0-50.0); HGB 13.5 g/dL (13.5-17.5); Mean Corp. HGB Concentration 34.5 g/dL (32.0-36.0); Mean Corpuscular Hemoglobin 28.3 pg (27.0-33.0); Mean Platelet Volume 8.4 fL (8.0-11.0); Platelet Count 193 x1000/uL (130-400); RBC 4.77 m/cumm (4.50-6.00); RBC Distribution Width 14.7 % (11.8-14.1); White Blood Cell Count 7.01 k/cumm (4.4-10.8)
[2018-07-12 13:07] LABS: Ferritin 26 ng/mL (8-388); TSH (W/Ref FT4) 2.28 uIU/mL (0.358-3.74)
== END 2018-07-12 10:47 ==
PROVIDERS: PCP Family Medicine; Visit Provider Family Medicine
DX: R53.83 Other fatigue (principal); D64.9 Anemia, unspecified
CPT/HCPCS: 36415; 85027; 82728; 84443

== ENCOUNTER 2018-07-15 00:40 | Outpatient (CLI) | payer MEDICARE, OTHER, SELFPAY ==
--- NOTE | 2018-07-15 14:24 | DI.CT_ITS ---
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 Comparison is 05/20/18 and 05/27/17 The frontal sinuses are clear. The ethmoid air cells are clear. The maxillary sinuses are clear. The sphenoid sinuses are clear. The nasal septum is predominantly midline. The turbinates are unremarkable as are the ostiomeatal complexes. The mastoid air cells are well pneumatized. The orbits and retro orbital soft tissues are unremarkable. There is again seen a CSF density area in the left anterior cranial fossa likely reflecting an arachnoid cyst. It is unchanged compared to the prior examination. IMPRESSION: No CT evidence of sinus disease.
== END 2018-07-15 01:00 ==
PROVIDERS: PCP Family Medicine; Visit Provider Otolaryngology Otolaryngology/Facial Plastic Surgery
DX: J32.2 Chronic ethmoidal sinusitis (principal); R09.82 Postnasal drip; R09.81 Nasal congestion; J31.0 Chronic rhinitis
CPT/HCPCS: 70486

== ENCOUNTER 2018-07-29 00:37 | Outpatient (CLI) | payer MEDICARE, OTHER, SELFPAY ==
--- NOTE | 2018-07-29 08:40 | DI.MRI_ITS ---
SYMPTOM/DIAGNOSIS: RT SIDED LOW BACK PAIN, RT LEG PAIN LUMBOSACRAL SPINE MRI: MR examination of the lumbosacral spine was performed according to the usual protocol. Current examination is compared with previous examination of 08/20/2015. Note is again made of previously noted T 12 vertebral compression fracture which appears stable. There is signal loss and disc space narrowing at L 5-S 1 consistent with disc degeneration. There is a moderate disc bulge at L 5-S 1 with apparent mild superimposed central disc herniation, no gross interval change from the previous study. There are changes of mild to moderate facet hypertrophy at L 4-5 and L 5-S 1. There is slight right sided neural foraminal narrowing at L 5. No other significant neural foraminal narrowing or bony central spinal canal stenosis seen. Conus medullaris appears intact. 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 Disc bulge at L 5-S 1 with mild central disc herniation, stable from 08/20/15. Mild right sided neural foraminal narrowing at L 4-5.
== END 2018-07-29 00:57 ==
PROVIDERS: PCP Family Medicine; Visit Provider Nurse Practitioner Family
DX: M54.5 Low back pain (principal); M79.604 Pain in right leg; M47.817 Spondylosis without myelopathy or radiculopathy, lumbosacral region; M51.27 Other intervertebral disc displacement, lumbosacral region
CPT/HCPCS: 72148

== ENCOUNTER → 2018-08-01 12:30 | Outpatient (BNVA) | payer MEDICARE, OTHER, SELFPAY | PROVIDERS: PCP Family Medicine; Visit Provider Nurse Practitioner Adult Health | DX: G31.84 Mild cognitive impairment of uncertain or unknown etiology (principal); R41.3 Other amnesia; F39 Unspecified mood [affective] disorder; Z87.820 Personal history of traumatic brain injury; G47.33 Obstructive sleep apnea (adult) (pediatric) | CPT/HCPCS: 99213 ==

== ENCOUNTER 2018-08-17 13:41 | Emergency (ER) | payer MEDICARE, OTHER, SELFPAY ==
[2018-08-17 13:44] VITALS: BP 146/77; PULSE 81; RESP 18; TEMP 36.7; O2SAT 99
--- NOTE | 2018-08-17 14:09 | ED.GENADUL_ITS ---
Discharge Plan Disposition Patient Disposition: HOME Condition: Good Discharge Details Chief Complaint: Abd Prob Clinical Impression: Abdominal pain Primary Care Provider: Alisa Ramirez ED Provider: iTm Oleary Home Meds and New Rx's Prescriptions: Continued tramadol 50 mg tablet 50 mg PO DAILY PRN MDD 1 tablet/day 30 Days Qty: 30 RF: 0 diclofenac sodium 1 % gel 4 gm TP QID PRN (Reason: low back pain) 7 Days Qty: 100 RF: 11 polyethylene glycol 3350 [Miralax] 17 GM powder in packet 17 g PO DAILY Qty: 255 RF: 0 nitroglycerin [Nitrostat] 0.4 MG tablet, sublingual 0.4 mg Sublingual as directed RF: 0 docusate sodium [Dulcolax Stool Softener (dss)] 100 MG capsule 100 mg PO DAILY PRNRF: 0 Levemir FlexTouch U-100 Insuln 100 UNIT/1 ML insulin pen 100 units subcut BID RF: 0 lisinopril 20 MG tablet 20 mg PO DAILY RF: 0 carvedilol 25 MG tablet 25 mg PO BID Qty: 120 RF: 4 ranitidine HCl [Zantac Maximum Strength] 150 mg tablet 150 mg PO DAILY RF: 0 riboflavin (vitamin B2) [Vitamin B-2] 100 mg tablet 400 mg PO DAILY RF: 0 topiramate [Topamax] 25 mg capsule, sprinkle 75 mg PO DAILY RF: 0 levothyroxine 50 MCG tablet 50 mcg PO DAILY@0730 RF: 0 allopurinol 300 MG tablet 300 mg PO DAILY RF: 0 quetiapine [Seroquel] 300 MG tablet 300 mg PO HS RF: 0 rosuvastatin [Crestor] 20 MG tablet 20 mg PO HS RF: 0 metformin [Glucophage] 1,000 MG tablet 1,000 mg PO BID@0800,1700 Qty: 0 RF: 0 glimepiride [Amaryl] 4 MG tablet 4 mg PO DAILY@0800 RF: 0 acetaminophen [Tylenol] 325 MG tablet 2 tab PO Q4H PRN PRNRF: 0 gabapentin 300 mg capsule 300 mg PO DAILY RF: 0 Discharge Instructions Instructions: Abdominal Pain (ED) Additional Instructions: Your laboratory studies and CT scan are unremarkable. There is no evidence of any significant pathology. The fact that you are passing watery stool suggest a magnesium citrate has done what it supposed to do. Would stay hydrated and increase your fiber intake. Continue medications otherwise. Follow-up with your primary care next week. Return to ED if you develop fever, vomiting, new or worsening pain Referrals: Alisa Ramirez MD [Primary Care Provider] - Discharge Data Discharge Date/Time-TO BE ENTERED AT DEPARTURE: 08/17/18 17:15 Medical Decision Making <Dimitry Ayon NP - Last Filed: 08/19/18 10:00> Patient presenting the emergency department for chief complaint of constipation. Patient states that he has dealt with constipation issues for a long time but over the past couple days he has developed pain and discomfort. Patient states he has tried multiple [id number] laxatives and medications and has had watery bowel movements but no significant passage of stool. Patient denies any fever chills, nausea vomiting, chest pain difficulty breathing or other symptoms. Physical exam shows significant tenderness to right and left lower quadrants, hypoactive bowel sounds mostly in the left lower quadrant, otherwise unremarkable exam. Plan to check labs and CT imaging for concern of bowel obstruction versus diverticulitis versus constipation. Review of labs show no leukocytosis, CMP nondiagnostic, mild elevation of lipase but patient has had chronic elevation of lipase in the past. Mild hyperglycemia. Patient still pending CT imaging results. Pending results patient signed out to Dr. Oleary for review of results, further treatment and disposition HPI <Dimitry Ayon NP - Last Filed: 08/19/18 10:00> General Mode of arrival: ambulatory . Date/Time Provider Initiated Documentation: 08/17/18 13:50 . Limitations to Documentation: no limitations . Information obtained by: patient and RN notes reviewed . History of Present Illness 67 year old M presents to the emergency department with the chief compl aint of Constipation, abdominal pain, described as moderate, with intensity rated at 5. Quality is described as sharp, and is localized to the abdomen. Patient started experiencing this day(s) (3) and it has been constant. No relieving factors improve symptom(s), Patient notes no other symptoms.. Patient did receive the following treatments prior to arrival, other (Mag citrate, laxative pills, Metamucil) Related Data Home Medications Medication Instructions Recorded Confirmed allopurinol 300 mg PO DAILY 01/24/13 08/17/18 levothyroxine 50 mcg PO DAILY@0730 01/24/13 08/17/18 quetiapine [Seroquel] 300 mg PO HS 01/24/13 08/17/18 glimepiride [Amaryl] 4 mg PO DAILY@0800 01/11/17 08/17/18 rosuvastatin [Crestor] 20 mg PO HS 03/22/17 08/17/18 docusate sodium [Dulcolax Stool 100 mg PO DAILY PRN 04/08/17 08/17/18 Softener (dss)] nitroglycerin [Nitrostat] 0.4 mg SUBLINGUAL as directed 04/08/17 08/17/18 polyethylene glycol 3350 [Miralax] 17 g PO DAILY #255 gm 04/08/17 08/17/18 acetaminophen [Tylenol] 2 tab PO Q4H PRN PRN tab 05/24/17 08/17/18 metformin [Glucophage] 1,000 mg PO BID@0800,1700 #0 05/28/17 08/17/18 Levemir FlexTouch U-100 Insuln 100 units SUBCUT BID 08/04/17 08/17/18 lisinopril 20 mg PO DAILY tab-cap 11/25/17 08/17/18 carvedilol 25 mg PO BID #120 tab-cap 02/07/18 08/17/18 diclofenac 1 % topical gel 4 gm TP QID PRN 7 Days #100 gm 07/27/18 08/17/18 gabapentin 300 mg capsule 300 mg PO DAILY cap 07/27/18 08/17/18 ranitidine 150 mg tablet 150 mg PO DAILY tab-cap 07/27/18 08/17/18 riboflavin (vitamin B2) 100 mg 400 mg PO DAILY tab 07/27/18 08/17/18 tablet tramadol 50 mg tablet 50 mg PO DAILY PRN 30 Days #30 tab 07/27/18 08/17/18 MDD 1 tablet/day topiramate 25 mg sprinkle capsule 75 mg PO DAILY cap 08/01/18 08/17/18 Previous Rx's Medication Instructions Recorded acetaminophen [Tylenol] 2 tab PO Q4H PRN PRN tab 05/24/17 metformin [Glucophage] 1,000 mg PO BID@0800,1700 #0 05/28/17 carvedilol 25 mg PO BID #120 tab-cap 02/07/18 diclofenac 1 % topical gel 4 gm TP QID PRN 7 Days #100 gm 07/27/18 tramadol 50 mg tablet 50 mg PO DAILY PRN 30 Days #30 tab 07/27/18 MDD 1 tablet/day Allergies Allergy/AdvReac Type Severity Reaction Status Date / Time amoxicillin Allergy Severe breathing Unverified 08/17/18 14:44 difficuty and vomiting Penicillins Allergy Skin Rash Unverified 08/17/18 14:44 sulfamethoxazole Allergy Skin Rash Unverified 08/17/18 14:44 [From Bactrim] trimethoprim [From Bactrim] Allergy Skin Rash Unverified 08/17/18 14:44 oxycodone HCl [From Percocet] AdvReac Severe Contraindic Unverified 08/17/18 14:44 ated oxycodone terephthalate AdvReac Severe Contraindic Unverified 08/17/18 14:44 [From Percodan] ated General Stated Complaint: Abd Prob MADELIN: 3 Review of Systems <Dimitry Ayon NP - Last Filed: 08/19/18 10:00> Constitutional Denies chills, Denies fever(s) and Reports poor appetite Cardiovascular Denies chest pain and Denies dyspnea Respiratory Denies cough and Denies dyspnea Gastrointestinal Reports as per HPI, Reports abdominal pain, Denies melena, Denies change in bowel habits, Reports constipation, Denies diarrhea, Denies nausea and Denies vomiting Genitourinary Denies hematuria, Denies difficulty urinating, Denies urinary hesitancy, Denies urinary incontinence and Denies urinary urgency Integumentary/Breasts Denies rash PFSH <Dimitry Ayon NP - Last Filed: 08/19/18 10:00> Medical History CAD (coronary artery disease) Chronic low back pain Colon polyps DM type 2 (diabetes mellitus, type 2) Depression Diastasis recti Fatty liver GERD (gastroesophageal reflux disease) Gout H/O alcohol abuse Headaches due to 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 Hx of deep venous thrombosis Hyperlipidemia Hypertension Hypothyroidism MRSA infection Obstructive sleep apnea Urethral stricture Vitamin D deficiency Surgical History Appendectomy (12/12/16) Colonoscopy - MAC Coronary Artery Bypass Gaft (CABG) Extraction of cataract Repair of inguinal hernia (08/05/17) Repair of umbilical hernia electroconvulsive therapy facial lesion removal Social History household members: spouse housing: house pets and animals: Yes pets and animals: dog(s) Smoking and Tabacco status: Former Tobacco Use Exam <Dimitry Ayon NP - Last Filed: 08/19/18 10:00> Const General: cooperative Orientation: alert, awake and oriented x3 Resp Effort & Inspection: normal respiratory effort and able to speak in complete sentences Auscultation: clear to auscultation bilaterally Cardio Rate: regular rate Rhythm: regular rhythm Heart Sounds: S1 normal and S2 normal GI Inspection: distended Palpation: soft, no hepatosplenomegaly, not firm, no guarding, no masses, no pulsatile masses, not rigid, no splenomegaly and tender in the LLQ and in the RLQ; not at McBurney's point and Fair's sign negative Auscultation: abnormal bowel sounds (Hypoactive left lower quadrant otherwise normal active throughout) Back/Spine/Pelvis Back: no CVA tenderness Neuro General: alert, awake, oriented x3, gait normal and moves all extremities Course <Dimitry Ayon NP - Last Filed: 08/19/18 10:00> Vital Signs Temperature 36.7 C 08/17/18 13:44 Pulse 81 08/17/18 13:44 Respiratory Rate 18 08/17/18 13:44 Blood Pressure 146/77 H 08/17/18 13:44 Pulse Oximetry 99 08/17/18 13:44 Temperature 36.7 C 08/17/18 13:44 Temperature Source Skin 08/17/18 13:44 Pulse 81 08/17/18 13:44 Respiratory Rate 18 08/17/18 13:44 Blood Pressure 146/77 H 08/17/18 13:44 Blood Pressure Position Sitting 08/17/18 13:44 Pulse Oximetry 99 08/17/18 13:44 Oxygen Delivery Method Room Air 08/17/18 13:44 Oxygen Flow Rate 0 08/17/18 13:44 Pain Level 6 08/17/18 13:44 Sign Out <Dimitry Ayon NP - Last Filed: 08/19/18 10:00> Sign Out Data: Sign Out Comment: Patient pending CT results, any further treatment or stabilization, and disposition Last updated by Dimitry Ayon NP at 08/17/18 15:53 Post-Handoff Eval: Patient signed out to me pending results of CT scan. I did evaluate the patient. He reports generalized abdominal discomfort and a feeling of constipation. He has drank at least 2 bottles of mag citrate. He does report having essentially liquid water for bowel movements. His laboratory studies are unremarkable. His electrolytes are normal. His white count is normal. His lipase is elevated but is chronically elevated. CT scan is unremarkable. There was not a significant stool burden in the colon. There is no evidence of diverticulitis or appendicitis. Rectal exam was performed by me. There is no fecal impaction in the rectum. I suspect the fact that he is having liquidy, watery bowel movements suggest that the magnesium citrate has done exactly what it supposed to do. He does not have evidence of significant constipation on CAT scan. Would recommend fluids and fiber. Continue MiraLAX. Follow-up with primary care next week if not feeling better. Return to ED if you develop fever, vomiting, worsening abdominal pain.
[2018-08-17 14:26] LABS: Abs Immature Grans 0.02 k/cumm (0.0-0.09); Absolute Basophil Count 0.07 k/cumm (0.0-0.2); Absolute Eosinophil Count 0.21 k/cumm (0.0-0.7); Absolute Monocyte Count 0.49 k/cumm (0.11-0.7); Absolute Neutrophil Count 3.97 k/cumm (1.2-6.7); Basophils % 1.2; Eosinophils % 3.5; HCT 41.8 % (40.0-50.0); HGB 14.5 g/dL (13.5-17.5); Immature Grans % 0.3; Lymphocytes % 20.1; Mean Corp. HGB Concentration 34.7 g/dL (32.0-36.0); Mean Corpuscular Hemoglobin 27.9 pg (27.0-33.0); Mean Corpuscular Volume 80.4 fL (80-95); Mean Platelet Volume 8.9 fL (8.0-11.0); Monocytes % 8.2; Neutrophils % 66.7; Platelet Count 189 x1000/uL (130-400); RBC Distribution Width 14.6 % (11.8-14.1); White Blood Cell Count 5.96 k/cumm (4.4-10.8)
[2018-08-17 14:37] LABS: Bilirubin Negative (Negative); Blood Negative (Negative); Clarity Clear; Glucose Negative (Negative); Ketones Negative (Negative); Leukocyte Esterase Negative (Negative); Nitrite Negative (Negative); Specific Gravity 1.015 (1.005-1.025); Urobilinogen 0.2 EU/dL (Up TO 0.2); pH 6.5 (5-8)
[2018-08-17 15:00] LABS: ALT 28 U/L (12-78); AST 26 U/L (15-37); Albumin 4.1 g/dL (3.4-5.0); Alkaline Phosphatase 89 U/L (46-116); Anion Gap 9.4 mmol/L (3-11); BUN 12 mg/dL (7-18); Bilirubin, Total 0.3 mg/dL (0.2-1.0); CO2 24.6 mmol/L (21.0-32.0); CREATININE 1.02 mg/dL (0.70-1.30); Calcium 8.9 mg/dL (8.5-10.1); Chloride 105 mmol/L (98-107); Glucose 200 mg/dL (70-100); Lipase 599 U/L (73-393); Potassium 4.4 mmol/L (3.5-5.1); Sodium 139 mmol/L (136-145); Total Protein 7.6 g/dL (6.4-8.2)
[2018-08-17] MEDS: Omnipaque 350 MG/ML 100 ML BTL IJ (16:16)
[2018-08-17] MEDS: Omnipaque 350 MG/ML 50 ML BTL IJ (16:18)
[2018-08-17] MEDS: Breeza Beverage 473 ML BTL PO ×2 (16:19)
[2018-08-17] MEDS: Normal Saline Flush 10 ML SYR IVP (16:20)
--- NOTE | 2018-08-17 16:22 | DI.CT_ITS ---
SYMPTOM/DIAGNOSIS: CONSTIPATION, ABD PAIN ABDOMEN AND PELVIC CT: Comparison is made with 06/20/17. Images were performed from the lung bases through the ischial tuberosities after IV and oral contrast. The oral contrast is present in the stomach and majority of the small bowel. The colon is not yet opacified. The patient is status post appendectomy. There is no bowel dilatation or inflammatory change. There is a moderate quantity of stool. Sternal wires are noted. The heart size is normal. A small liver cyst is again noted. Calcification is again noted at the wall of the gallbladder, unchanged. There is no gallbladder distension or wall thickening. No biliary dilatation is present. The pancreas, spleen and adrenals are unremarkable. There are a few small renal cysts. There are no stones or hydronephrosis. The aorta shows some calcification and is normal in diameter. The prostate and bladder are unremarkable. There is a stable mild compression fracture of T 12. Degenerative disc changes are seen at L 5-S 1. IMPRESSION: No acute abnormality.
--- NOTE | 2018-08-17 16:42 | DI.VRAD_ITS ---
EXAM: CT Abdomen and Pelvis With Contrast EXAM DATE/TIME: 08/17/2018 2:11 PM CLINICAL HISTORY: 67 years old, male; Pain and signs and symptoms; Constipation; Abdominal pain; Generalized; Patient HX: Abd pain. Constipation TECHNIQUE: Axial computed tomography images of the abdomen and pelvis with intravenous contrast. All CT scans at this facility use at least one of these dose optimization techniques: automated exposure control; mA and/or kV adjustment per patient size (includes targeted exams where dose is matched to clinical indication); or iterative reconstruction. Coronal and sagittal reformatted images were created and reviewed. CONTRAST: Contrast Material: 100 ml of omni 350; Contrast Route: iv COMPARISON: CT ABD PELVIS WITH CONTRAST 01/11/2017 2:08 PM FINDINGS: Lower thorax: No acute findings. ABDOMEN: Liver: A cystic focus in the liver near the gallbladder appears stable to the prior study. Gallbladder and bile ducts: Stable gallbladder wall tiny calcification. Gallbladder is otherwise unremarkable. Pancreas: Normal. No ductal dilation. Spleen: Normal. No splenomegaly. Adrenals: Normal. No mass. Kidneys and ureters: Bilateral renal cysts are present and appear similar to the prior exam. No hydronephrosis or stones. Stomach and bowel: Mild stool retention. No obstruction. No mucosal thickening. Appendix: No evidence of appendicitis. PELVIS: Bladder: Unremarkable as visualized. Reproductive: Unremarkable as visualized. ABDOMEN and PELVIS: Intraperitoneal space: Normal. No free air. No significant fluid collection. Bones/joints: No acute fracture. No dislocation. Soft tissues: Unremarkable. Vasculature: Normal. No abdominal aortic aneurysm. Lymph nodes: Normal. No enlarged lymph nodes. IMPRESSION: No acute findings. Dictated and Authenticated by: Krishan Lyon MD. Ordering:LIVAN Moraes MD
[2018-08-17 17:08] VITALS: BP 138/72; PULSE 79; RESP 16; TEMP 36.7; O2SAT 99
== END 2018-08-17 17:15 | disposition home or self-care (01) ==
PROVIDERS: Nurse Practitioner Family; Emergency Provider Emergency Medicine; PCP Family Medicine
DX: R10.84 Generalized abdominal pain (principal); E11.65 Type 2 diabetes mellitus with hyperglycemia; Z79.84 Long term (current) use of oral hypoglycemic drugs; I10 Essential (primary) hypertension
CPT/HCPCS: 80053; 83690; 99285; 74177; 81003; 85025; 99284; J3490; Q9967

== ENCOUNTER 2018-08-31 09:37 | Outpatient (CLI) | payer MEDICARE, OTHER, SELFPAY ==
--- NOTE | 2018-08-31 06:00 | DI.RAD_ITS ---
SYMPTOM/DIAGNOSIS: LUMBAR RADICULOPATHY, TRANSFORAMINAL EPIDURAL STEROID INJECTION C-ARM: Fluoroscopy Time: 56.5 seconds. Images submitted from the pain clinic demonstrate positioning of a needle over the L 5-S 1 level in conjunction with a transforaminal epidural steroid injection carried out by Dr. Hudson. Please see the procedure report for further information.
[2018-08-31 09:45] VITALS: BP 130/83; PULSE 86; RESP 18; TEMP 36.8; O2SAT 98
[2018-08-31 10:28] VITALS: BP 151/86; PULSE 83; RESP 22; O2SAT 100
[2018-08-31] MEDS: methylPREDNISolone ACETATE 40 MG/ML VIAL IJ (10:33)
[2018-08-31] MEDS: Omnipaque 240 MG/ML 50 ML BTL IJ (10:33)
[2018-08-31] MEDS: Bupivacaine 0.5% Pres-Free 30 ML VIAL IJ (10:34)
--- NOTE | 2018-08-31 10:34 | PDOC.PAIN_ITS ---
Pain Clinic Procedure Note Current Active Problems Problem Status Onset Lumbar radiculitis Acute LUMBAR / SACRAL TRANSFORAMINAL INJECTION LANDRY RAY has been referred to the [facility] for a transforaminal nerve root block and steroid injection. COMMENTS: L5-S1 and has had previous transforaminal injection with good relief Patient was interviewed and the medical record reviewed. There were no medical, pharmacologic, radiographic or other structural contraindications to attempting fluoroscopically guided transforaminal nerve root block and epidural steroid injection. Risks and expected side effects as well as potential benefit of the procedure were reviewed and voiced concerns addressed. The printed consent form was signed and witnessed. Standard time-out procedure was performed. Patient was placed in the prone position on the fluoroscopy table and automated blood pressure cuff and pulse oximeter applied. Fluoroscopy was utilized to identify the {right} neural foramen between L5and S1 . A skin rachelle was made for the needle insertion site. A Chlorhexadine prep was carried out, and sterile drapes were applied. Local anesthesia was achieved in the skin and subcutaneous tissues. A 22 gauge curved tip spinal needle was then inserted, advanced with fluoroscopic guidance into the neural foramen, confirmed on the lateral view. After negative aspiration, 2 ml of Omnipaque 240 was injected confirming position in A/P and lateral views. This showed a good spread of dye transforaminally into the epidural space. There was no vascular update with contrast injection under continuous fluoroscopy and digital substraction. 40 mg of Depo-Medrol was injected, followed by 0.5 ml of 0.5% bupivacaine flush for the nerve root block, as well. There was no unusual discomfort expressed.The needle was withdrawn. The patient tolerated the procedure well. A Band-Aid was applied. Vital signs were stable throughout the procedure and were as recorded in nursing records. If given, dosages of intravenous drugs for anxiolysis and analgesia were documented in nursing records. Follow up plans and appointments were discussed. Post procedure instruction was given as documented in nursing records and patient was discharged in the care of an identified straight truck driver. COMMENTS: Patient will follow up as needed. CC: Alisa Ramirez
== END 2018-08-31 09:57 ==
PROVIDERS: PCP Family Medicine; Visit Provider Anesthesiology Pain Medicine
DX: M54.16 Radiculopathy, lumbar region (principal)
CPT/HCPCS: 64483; 72100; J1030; Q9967

== ENCOUNTER 2018-09-04 13:15 | Emergency (ER) | payer MEDICARE, OTHER, SELFPAY ==
[2018-09-04 13:23] VITALS: BP 161/79; PULSE 79; RESP 16; TEMP 36.5; O2SAT 100
--- NOTE | 2018-09-04 13:35 | W.ED.GENAD ---
Discharge Plan Disposition Patient Disposition: HOME Condition: Stable Discharge Details Chief Complaint: Cellulitis Clinical Impression: Vasculitis Primary Care Provider: Alisa Ramirez ED Provider: Dilshad Penny Home Meds and New Rx's Prescriptions: New prednisone 20 mg tablet 40 mg PO DAILY 5 Days Qty: 10 RF: 0 loratadine 10 mg capsule 10 mg PO DAILY Qty: 10 RF: 0 Continued diclofenac sodium 1 % gel 4 gm TP QID PRN (Reason: low back pain) 7 Days Qty: 100 RF: 11 polyethylene glycol 3350 [Miralax] 17 GM powder in packet 17 g PO DAILY Qty: 255 RF: 0 nitroglycerin [Nitrostat] 0.4 MG tablet, sublingual 0.4 mg Sublingual as directed RF: 0 docusate sodium [Dulcolax Stool Softener (dss)] 100 MG capsule 100 mg PO DAILY PRNRF: 0 Levemir FlexTouch U-100 Insuln 100 UNIT/1 ML insulin pen 100 units subcut BID RF: 0 lisinopril 20 MG tablet 20 mg PO DAILY RF: 0 carvedilol 25 MG tablet 25 mg PO BID Qty: 120 RF: 4 ranitidine HCl [Zantac Maximum Strength] 150 mg tablet 150 mg PO DAILY RF: 0 riboflavin (vitamin B2) [Vitamin B-2] 100 mg tablet 400 mg PO DAILY RF: 0 topiramate [Topamax] 25 mg capsule, sprinkle 75 mg PO DAILY RF: 0 levothyroxine 50 MCG tablet 50 mcg PO DAILY@0730 RF: 0 allopurinol 300 MG tablet 300 mg PO DAILY RF: 0 quetiapine [Seroquel] 300 MG tablet 300 mg PO HS RF: 0 rosuvastatin [Crestor] 20 MG tablet 20 mg PO HS RF: 0 metformin [Glucophage] 1,000 MG tablet 1,000 mg PO BID@0800,1700 Qty: 0 RF: 0 glimepiride [Amaryl] 4 MG tablet 4 mg PO DAILY@0800 RF: 0 acetaminophen [Tylenol] 325 MG tablet 2 tab PO Q4H PRN PRNRF: 0 gabapentin 300 mg capsule 300 mg PO DAILY RF: 0 olanzapine [Zyprexa] 10 mg Tablet 10 mg PO QPM RF: 0 omeprazole 40 mg Capsule,Delayed Release(Dr/Ec) 40 mg PO BID RF: 0 tramadol 50 mg Tablet 50 mg PO Q6H PRNRF: 0 albuterol sulfate [Ventolin HFA] 90 mcg/actuation Hfa Aerosol Inhaler 2 puff INHALATION TID PRNRF: 0 metformin [Glucophage] 1,000 mg Tablet 1,000 mg PO BID RF: 0 Discharge Instructions Additional Instructions: Please take prednisone and loratadine as prescribed. The prednisone is a steroid and can cause some elevation of the blood sugar. Please continue to watch her blood glucose daily. Loratadine is an antihistamine that will help with the itching. It is to be taken once daily. Continue your other regular medications. Return if you develop a fever, spreading redness, or any other acute concern. We will ask our care management team to make you a follow-up appointment with Dr. Ramirez for recheck Medical Decision Making 67-year-old male diabetic presents from home with his son. He is developed left greater than right lower extremity pruritic rash over days time. He is afebrile and well-appearing. He has mild blanching erythema with underlying nonpalpable purpura of the left pretibial area. Consistent with vasculitis. Broad differential diagnosis considered including underlying malignancy, drug effect, autoimmune mediated pathology. Baseline labs including CBC, comprehensive, ESR obtained: White blood cell count 8, hematocrit 40, platelets 195. Chemistries reveal sodium 139, potassium 3.9, chloride 103, bicarb 20, BUN 15, creatinine 1.0. Glucose 173. SedRate 9. Does not appear to be an infectious process. Patient may require follow-up for skin biopsy. I feel he is best served by a brief burst of prednisone, noting his known diabetes, as well as a trial of loratadine. We will ask care management to make him a follow-up appointment with Dr. Ramirez. [facility] General Mode of arrival: ambulatory. Date/Time Provider Initiated Documentation: 09/04/18 13:29. Limitations to Documentation: no limitations. Information obtained by: patient and family. History of Present Illness 67 year old M presents to the emergency department with the chief complaint of 1 week lower leg itching rash, described as moderate, Quality is described as constant, and is localized to the left and lower extremity. Patient reports no radiation. Patient started experiencing this day(s) and it has been constant. No relieving factors improve symptom(s), No exacerbating factors reported . Patient notes no other symptoms.; denies chest pain, fever/chills, nausea/vomiting and shortness of breath. Patient did receive the following treatments prior to arrival, none Related Data Home Medications Medication Instructions Recorded Confirmed allopurinol 300 mg PO DAILY 01/24/13 08/31/18 levothyroxine 50 mcg PO DAILY@0730 01/24/13 08/31/18 quetiapine [Seroquel] 300 mg PO HS 01/24/13 08/31/18 glimepiride [Amaryl] 4 mg PO DAILY@0800 01/11/17 09/04/18 rosuvastatin [Crestor] 20 mg PO HS 03/22/17 09/04/18 docusate sodium [Dulcolax Stool 100 mg PO DAILY PRN 04/08/17 08/31/18 Softener (dss)] nitroglycerin [Nitrostat] 0.4 mg SUBLINGUAL as directed 04/08/17 08/31/18 polyethylene glycol 3350 [Miralax] 17 g PO DAILY #255 gm 04/08/17 08/31/18 acetaminophen [Tylenol] 2 tab PO Q4H PRN PRN tab 05/24/17 08/31/18 metformin [Glucophage] 1,000 mg PO BID@0800,1700 #0 05/28/17 08/31/18 Levemir FlexTouch U-100 Insuln 100 units SUBCUT BID 08/04/17 09/04/18 lisinopril 20 mg PO DAILY tab-cap 11/25/17 09/04/18 carvedilol 25 mg PO BID #120 tab-cap 02/07/18 09/04/18 diclofenac 1 % topical gel 4 gm TP QID PRN 7 Days #100 gm 07/27/18 08/31/18 gabapentin 300 mg capsule 300 mg PO DAILY cap 07/27/18 08/31/18 ranitidine 150 mg tablet 150 mg PO DAILY tab-cap 07/27/18 08/31/18 riboflavin (vitamin B2) 100 mg 400 mg PO DAILY tab 07/27/18 08/31/18 tablet topiramate 25 mg sprinkle capsule 75 mg PO DAILY cap 08/01/18 08/31/18 albuterol sulfate [Ventolin HFA] 2 puff INHALATION TID PRN 09/04/18 09/04/18 loratadine 10 mg PO DAILY #10 cap 09/04/18 metformin [Glucophage] 1,000 mg PO BID 09/04/18 09/04/18 olanzapine [Zyprexa] 10 mg PO QPM 09/04/18 09/04/18 omeprazole 40 mg PO BID 09/04/18 09/04/18 prednisone 40 mg PO DAILY 5 Days #10 tab 09/04/18 tramadol 50 mg PO Q6H PRN 09/04/18 09/04/18 Previous Rx's Medication Instructions Recorded acetaminophen [Tylenol] 2 tab PO Q4H PRN PRN tab 05/24/17 metformin [Glucophage] 1,000 mg PO BID@0800,1700 #0 05/28/17 carvedilol 25 mg PO BID #120 tab-cap 02/07/18 diclofenac 1 % topical gel 4 gm TP QID PRN 7 Days #100 gm 07/27/18 loratadine 10 mg PO DAILY #10 cap 09/04/18 prednisone 40 mg PO DAILY 5 Days #10 tab 09/04/18 Allergies Allergy/AdvReac Type Severity Reaction Status Date / Time amoxicillin Allergy Severe breathing Unverified 09/04/18 13:25 difficuty and vomiting Penicillins Allergy Skin Rash Unverified 09/04/18 13:25 sulfamethoxazole Allergy Skin Rash Unverified 09/04/18 13:25 [From Bactrim] trimethoprim [From Bactrim] Allergy Skin Rash Unverified 09/04/18 13:25 oxycodone HCl [From Percocet] AdvReac Severe Contraindic Unverified 09/04/18 13:25 ated oxycodone terephthalate AdvReac Severe Contraindic Unverified 09/04/18 13:25 [From Percodan] ated General Stated Complaint: Cellulitis MADELIN: 4 Review of Systems Review of Systems Denies new medications. No fever or chills. No weeping wounds or lesions. No fall or injury. 8 systems reviewed and otherwise negative [facility] Medical History CAD (coronary artery disease) Chronic low back pain Colon polyps DM type 2 (diabetes mellitus, type 2) Depression Diastasis recti Fatty liver GERD (gastroesophageal reflux disease) Gout H/O alcohol abuse Headaches due to 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 Hx of deep venous thrombosis Hyperlipidemia Hypertension Hypothyroidism MRSA infection Obstructive sleep apnea Urethral stricture Vitamin D deficiency Surgical History Appendectomy (06/01/16) Colonoscopy - MAC Coronary Artery Bypass Gaft (CABG) Extraction of cataract Repair of inguinal hernia (08/05/17) Repair of umbilical hernia electroconvulsive therapy facial lesion removal Social History Smoking/Tobacco Use Status: Former Tobacco Use Drug use: Never Household members: spouse Housing: house Pets and animals: Yes Pets and animals: dog(s) Do you feel safe at home: Yes Do you feel safe in your relationship?: Yes Exam Narrative Exam Narrative: GEN: awake, alert, oriented 3. Pleasant, well groomed, interactive. HEAD: Normocephalic, atraumatic ENT: Mucous membranes moist, oropharynx unremarkable, External ear exam unremarkable EYES: PERRL, EOMI NECK: Full ROM, no MAURO, no menigismus CHEST/RESP: Nontender, clear to auscultation bilateral, no wheeze/rhonchi/rales CARDIOVASCULAR: RRR, no murmur, rub coy. 2+ Rad pulse bilateral ABDOMEN: Soft, nontender, no mass. +Bowel sounds EXT: Full ROM, no edema, the left lower extremity below the knee has mild erythema that is blanching overlying slight petechial, nonpalpable rash. Minimal erythema of right lower extremity. No cords or swelling. Neuro: Grossly normal neurologic exam, conversant, interactive. Psych: Speech fluent, thoughts congruent, affect normal Course Vital Signs Temperature 36.5 C 09/04/18 13:23 Pulse 79 09/04/18 13:23 Respiratory Rate 16 09/04/18 13:23 Blood Pressure 161/79 H 09/04/18 13:23 Pulse Oximetry 100 09/04/18 13:23 Temperature 36.5 C 09/04/18 13:23 Temperature Source Skin 09/04/18 13:23 Pulse 79 09/04/18 13:23 Respiratory Rate 16 09/04/18 13:23 Blood Pressure 161/79 H 09/04/18 13:23 Blood Pressure Position Sitting 09/04/18 13:23 Pulse Oximetry 100 09/04/18 13:23 Oxygen Delivery Method Room Air 09/04/18 13:23 Oxygen Flow Rate 0 09/04/18 13:23 Pain Level 3 09/04/18 13:23
[2018-09-04] MEDS: diphenhydrAMINE 25 MG CAP PO (13:48)
[2018-09-04 14:07] LABS: Abs Immature Grans 0.02 k/cumm (0.0-0.09); Absolute Basophil Count 0.07 k/cumm (0.0-0.2); Absolute Eosinophil Count 0.51 k/cumm (0.0-0.7); Absolute Lymphocyte Count 1.36 k/cumm (1.2-3.4); Absolute Monocyte Count 0.75 k/cumm (0.11-0.7); Absolute Neutrophil Count 5.75 k/cumm (1.2-6.7); Basophils % 0.8; HGB 14.1 g/dL (13.5-17.5); Immature Grans % 0.2; Lymphocytes % 16.1; Mean Corp. HGB Concentration 35.3 g/dL (32.0-36.0); Mean Corpuscular Volume 79.5 fL (80-95); Mean Platelet Volume 8.5 fL (8.0-11.0); Monocytes % 8.9; Platelet Count 195 x1000/uL (130-400); RBC 5.03 m/cumm (4.50-6.00); RBC Distribution Width 14.9 % (11.8-14.1); White Blood Cell Count 8.46 k/cumm (4.4-10.8)
[2018-09-04 14:15] LABS: Anion Gap 12.1 mmol/L (3-11); BUN 15 mg/dL (7-18); CO2 20.9 mmol/L (21.0-32.0); CREATININE 1.05 mg/dL (0.70-1.30); Calcium 8.7 mg/dL (8.5-10.1); Chloride 103 mmol/L (98-107); Glucose 173 mg/dL (70-100); Potassium 3.9 mmol/L (3.5-5.1); Sodium 136 mmol/L (136-145)
[2018-09-04 14:59] LABS: ESR 9 MM/HR (1-20)
[2018-09-04 15:19] VITALS: BP 164/94; PULSE 78; RESP 18; TEMP 36.5; O2SAT 98
--- NOTE | 2018-09-05 09:41 | PDOC.ERCMPRO ---
Care Management Progress Note 09/05-Dr. Penny requested assistance with a PCP (James) f/u in 7-10 days for vasculitis, leg. Referral faxed to [facility] this am.
== END 2018-09-04 15:19 | disposition home or self-care (01) ==
PROVIDERS: Emergency Provider Emergency Medicine; PCP Family Medicine
DX: L95.9 Vasculitis limited to the skin, unspecified (principal)
CPT/HCPCS: 36415; 80048; 85652; 99283; 85025

== ENCOUNTER 2018-09-14 12:07 | Emergency (ER) | payer MEDICARE, OTHER, SELFPAY ==
[2018-09-14] VITALS (12 sets, daily range): BP systolic 144–167; BP diastolic 77–84; PULSE 84–92; RESP 14–23; TEMP 36.8; O2SAT 98–99
--- NOTE | 2018-09-14 12:34 | DI.CT_ITS ---
SYMPTOMS/DIAGNOSIS: H/O ANEURYSMS AND BRAIN BLEEDS NONCONTRAST HEAD CT: A right frontal jaylin hole is again noted. There has been no change in area of encephalomalacia in the left frontal lobe. The ventricles are unchanged in size. No acute hemorrhage, mass or infarct is seen. There is no evidence of skull fracture. There is mucosal thickening of the ethmoid sinuses. The orbits and mastoid air cells are unremarkable. IMPRESSION: No acute abnormality.
--- NOTE | 2018-09-14 12:37 | ED.GENADUL_ITS ---
Discharge Plan Disposition Patient Disposition: HOME Condition: Good Discharge Details Chief Complaint: Headache Clinical Impression: Headache Primary Care Provider: Alisa Ramirez ED Provider: Christopher Lua Home Meds and New Rx's Prescriptions: No Action diclofenac sodium 1 % gel 4 gm TP QID PRN (Reason: low back pain) 7 Days Qty: 100 RF: 11 polyethylene glycol 3350 [Miralax] 17 GM powder in packet 17 g PO DAILY PRNQty: 255 RF: 0 nitroglycerin [Nitrostat] 0.4 MG tablet, sublingual 0.4 mg Sublingual as directed RF: 0 docusate sodium [Dulcolax Stool Softener (dss)] 100 MG capsule 100 mg PO DAILY PRNRF: 0 Levemir FlexTouch U-100 Insuln 100 UNIT/1 ML insulin pen 100 units subcut BID RF: 0 lisinopril 20 MG tablet 20 mg PO DAILY RF: 0 carvedilol 25 MG tablet 25 mg PO BID Qty: 120 RF: 4 ranitidine HCl [Zantac Maximum Strength] 150 mg tablet 150 mg PO DAILY RF: 0 riboflavin (vitamin B2) [Vitamin B-2] 100 mg tablet 200 mg PO BID RF: 0 topiramate [Topamax] 25 mg capsule, sprinkle 75 mg PO DAILY RF: 0 levothyroxine 50 MCG tablet 50 mcg PO DAILY@0730 RF: 0 allopurinol 300 MG tablet 300 mg PO DAILY RF: 0 quetiapine [Seroquel] 300 MG tablet 300 mg PO HS RF: 0 rosuvastatin [Crestor] 20 MG tablet 20 mg PO HS RF: 0 glimepiride [Amaryl] 4 MG tablet 4 mg PO DAILY@0800 RF: 0 acetaminophen [Tylenol] 325 MG tablet 2 tab PO Q4H PRN PRNRF: 0 gabapentin 300 mg capsule 300 mg PO BID RF: 0 olanzapine [Zyprexa] 10 mg Tablet 10 mg PO QPM RF: 0 omeprazole 40 mg Capsule,Delayed Release(Dr/Ec) 40 mg PO BID RF: 0 tramadol 50 mg Tablet 50 mg PO Q6H PRNRF: 0 albuterol sulfate [Ventolin HFA] 90 mcg/actuation Hfa Aerosol Inhaler 2 puff INHALATION TID PRNRF: 0 metformin [Glucophage] 1,000 mg Tablet 1,000 mg PO BID RF: 0 loratadine 10 mg capsule 10 mg PO DAILY Qty: 10 RF: 0 cyanocobalamin (vitamin B-12) [Vitamin B-12] 1,000 mcg Tablet 1,000 mcg PO DAILY RF: 0 melatonin 3 mg Tablet 3 mg PO HS PRNRF: 0 cholecalciferol (vitamin D3) [Vitamin D3] 1,000 unit Capsule 1,000 unit PO DAILY RF: 0 magnesium oxide 400 mg Capsule 400 mg PO DAILY RF: 0 Discharge Instructions Instructions: General Headache (ED) Additional Instructions: If you notice any worsening of your symptoms, or any new symptoms such as vomiting, diarrhea, fever, chills, shortness of breath, chest pain, numbness, weakness, or fainting , please return immediately to the emergency department for reevaluation. Please follow up with your primary care provider as soon as possible for reassessment and reevaluation. As always, it was a pleasure participating in your medical care today. Referrals: Alisa Ramirez MD [Primary Care Provider] - Medical Decision Making This is a 67-year-old male with a past medical history of subdural hematoma, previous intracranial bleed, previous intracranial surgery, diabetes, hypertension, coronary artery disease, who is not on any blood thinners, was a strong history of chronic recurrent headaches secondary to his surgery and previous intracranial pathologies. He presents today for headache. He states that it is consistent with his previous headaches and there is no atypical modifiers, except he did fall and hit his head earlier. This was not part of the initial history and however his did bring up this detail later. He shows no red flags of meningitis. Patient has had multiple imaging studies of his head in the past, including recently in the past 6 months. Because of the fall we did decide to get a repeat head CT, and this was negative for any acute process per Dr. Peres. No evidence of subdural hematoma or acute intracranial pathology or bleed. Patient was given a migraine cocktail, and he had notable improvement of his symptoms after this. Although symptoms not completely resolved and are notably improved, he would like to be discharged, go home and rest. Repeat neurologic exam demonstrates no focal neurologic deficit or abnormality. I feel that the patient is a good candidate for discharge with close follow-up. We discussed red flags which to return the patient understands. I have extensively reviewed the treatment plan and discharge instructions with the patient and their family. I have addressed all patient concerns at this time. The patient and family was made aware of what symptoms to monitor for that would warrant a return to the emergency department. Discussed the plan with the patient and family, they demonstrate verbal understanding and agreement with our assessment and plan at this time. HPI General Date/Time Provider Initiated Documentation: 09/14/18 12:15 . HPI Narrative: This is a 67-year-old male with a past medical history of subdural hematoma, previous intracranial bleed, previous intracranial surgery, diabetes, hypertension, coronary artery disease, who is not on any blood thinners, was a strong history of chronic recurrent headaches secondary to his surgery and previous intracranial pathologies. He presents today for headache. He states it began last night and has gradually gotten worse throughout the evening and today. He states that it feels just like his other previous headaches that he has had, except there is some tenderness over his previous surgical site, and he says that this is different than normal. It is worse with light and loud noise. The patient denies any headache red flags of worst headache of life, thunderclap headache, neck pain, fever, chills, concerning family history of polycystic kidney disease, severe neck pain, Marfan syndrome, Annika-Danlos syndrome, abdominal aortic aneurysm, aortic dissection. No other complaints or modifying factors at this time. Related Data Home Medications Medication Instructions Recorded Confirmed allopurinol 300 mg PO DAILY 01/24/13 09/14/18 levothyroxine 50 mcg PO DAILY@0730 01/24/13 09/14/18 quetiapine [Seroquel] 300 mg PO HS 01/24/13 09/14/18 glimepiride [Amaryl] 4 mg PO DAILY@0800 01/11/17 09/14/18 rosuvastatin [Crestor] 20 mg PO HS 03/22/17 09/14/18 docusate sodium [Dulcolax Stool 100 mg PO DAILY PRN 04/08/17 09/14/18 Softener (dss)] nitroglycerin [Nitrostat] 0.4 mg SUBLINGUAL as directed 04/08/17 09/14/18 polyethylene glycol 3350 [Miralax] 17 g PO DAILY PRN #255 gm 04/08/17 09/14/18 acetaminophen [Tylenol] 2 tab PO Q4H PRN PRN tab 05/24/17 09/14/18 Levemir FlexTouch U-100 Insuln 100 units SUBCUT BID 08/04/17 09/14/18 lisinopril 20 mg PO DAILY tab-cap 11/25/17 09/14/18 carvedilol 25 mg PO BID #120 tab-cap 02/07/18 09/14/18 diclofenac 1 % topical gel 4 gm TP QID PRN 7 Days #100 gm 07/27/18 09/14/18 gabapentin 300 mg capsule 300 mg PO BID cap 07/27/18 09/14/18 ranitidine 150 mg tablet 150 mg PO DAILY tab-cap 07/27/18 09/14/18 riboflavin (vitamin B2) 100 mg 200 mg PO BID tab 07/27/18 09/14/18 tablet topiramate 25 mg sprinkle capsule 75 mg PO DAILY cap 08/01/18 09/14/18 albuterol sulfate [Ventolin HFA] 2 puff INHALATION TID PRN 09/04/18 09/14/18 cholecalciferol (vitamin D3) 1,000 unit PO DAILY 09/04/18 09/14/18 [Vitamin D3] cyanocobalamin (vitamin B-12) 1,000 mcg PO DAILY 09/04/18 09/14/18 [Vitamin B-12] loratadine 10 mg PO DAILY #10 cap 09/04/18 09/14/18 magnesium oxide 400 mg PO DAILY 09/04/18 09/14/18 melatonin 3 mg PO HS PRN 09/04/18 09/14/18 metformin [Glucophage] 1,000 mg PO BID 09/04/18 09/14/18 olanzapine [Zyprexa] 10 mg PO QPM 09/04/18 09/14/18 omeprazole 40 mg PO BID 09/04/18 09/14/18 tramadol 50 mg PO Q6H PRN 09/04/18 09/14/18 Previous Rx's Medication Instructions Recorded acetaminophen [Tylenol] 2 tab PO Q4H PRN PRN tab 05/24/17 carvedilol 25 mg PO BID #120 tab-cap 02/07/18 diclofenac 1 % topical gel 4 gm TP QID PRN 7 Days #100 gm 07/27/18 loratadine 10 mg PO DAILY #10 cap 09/04/18 Allergies Allergy/AdvReac Type Severity Reaction Status Date / Time amoxicillin Allergy Severe breathing Unverified 09/14/18 12:15 difficuty and vomiting Penicillins Allergy Skin Rash Unverified 09/14/18 12:15 sulfamethoxazole Allergy Skin Rash Unverified 09/14/18 12:15 [From Bactrim] trimethoprim [From Bactrim] Allergy Skin Rash Unverified 09/14/18 12:15 oxycodone HCl [From Percocet] AdvReac Severe Contraindic Unverified 09/14/18 12:15 ated oxycodone terephthalate AdvReac Severe Contraindic Unverified 09/14/18 12:15 [From Percodan] ated General Stated Complaint: Headache MADELIN: 2 Review of Systems Review of Systems All systems reviewed & are unremarkable except as noted in HPI and below PFSH Social History Smoking/Tobacco Use Status: Never Alcohol Intake: never Drug use: Never Substance use type: does not use Household members: spouse Housing: house Pets and animals: Yes Pets and animals: dog(s) Do you feel safe at home: Yes Do you feel safe in your relationship?: Yes Exam Narrative Exam Narrative: 1.Const: Well-nourished, Well-developed, appearing stated age 2.Eyes: PERRL, no conjunctival injection, and symmetrical lids. 3.ENT: Atraumatic external nose and ears. Moist MM. Neck: Symmetric, trachea midline, No thyromegaly. Patient demonstrates good movement of cervical neck. There is no nuchal rigidity, no nuchal tenderness. Patient is able to flex the neck without any difficulty or significant pain. Negative Kernig's and Brudzinski sign. Reproducible tenderness on palpation of the right sided cranial scar. 4.CVS: +S1/S2, No murmurs or gallops. Peripheral pulses 2+ and equal in all extremities. Brisk capillary refill in all extremities. 5.RESP: Unlabored respiratory effort. Clear to auscultation bilaterally. No whe ezes rales or rhonchi 6.GI: Soft, Nontender/Nondistended, No hepatosplenomegaly. No guarding or rebound. 7.MSK: Normocephalic/Atraumatic, Extremities w/o deformity or ttp No cyanosis or clubbing, Normal movement of all extremities 8.Skin: Warm, Dry. No rashes or lesions. 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 Sensation grossly intact, no focal neurologic deficits. All 6 cardinal planes of vision are fully intact. No evidence of rotatory or vertical nystagmus. The patient demonstrated a normal [id number], good dexterity. There was no evidence of dysdiadochokinesia. Patient was able to ambulate without difficulty. There was no wide-based gait. Romberg, and [id number]-[id number] are both normal on testing. Sensation was intact bilaterally as well as muscle strength bilaterally for all extremities. Patient was able to verbalize butter cup with no slurring, or miss pronunciation. 10.Psych: (AAO) x3. Appropriate mood and affect Course Vital Signs Temperature 36.8 C 09/14/18 12:12 Pulse 92 H 09/14/18 12:12 Respiratory Rate 20 09/14/18 12:12 Blood Pressure 167/84 H 09/14/18 12:12 Pulse Oximetry 99 09/14/18 12:12 Temperature 36.8 C 09/14/18 12:12 Temperature Source Temporal Artery Scan 09/14/18 12:12 Pulse 92 H 09/14/18 12:12 Respiratory Rate 20 09/14/18 12:12 Respiratory Effort Non-Labored 09/14/18 12:12 Blood Pressure 167/84 H 09/14/18 12:12 Pulse Oximetry 99 09/14/18 12:12 Oxygen Delivery Method Room Air 09/14/18 12:12 Oxygen Flow Rate 0 09/14/18 12:12 Pain Level 10 09/14/18 12:23
[2018-09-14] MEDS: Normal Saline 1,000 ML 1000 ML IV (12:56)
[2018-09-14] MEDS: Acetaminophen 500 MG TAB 1000 MG PO (12:58)
[2018-09-14] MEDS: diphenhydrAMINE 50 MG/ML VIAL 25 MG IVP (13:00)
[2018-09-14] MEDS: Prochlorperazine 10 MG/2 ML VIAL IVP (13:01)
[2018-09-14] MEDS: methylPREDNISolone SUCC 125 MG VIAL IVP (13:05)
[2018-09-14] MEDS: MAGNESIUM SULFATE 1 GM/100 ML BAG IVPB (13:08)
[2018-09-14] MEDS: Lidocaine 5% Patch 1 PATCH TP (13:11)
== END 2018-09-14 14:42 | disposition home or self-care (01) ==
PROVIDERS: Emergency Provider Student in an Organized Health Care Education/Training Program; PCP Family Medicine
DX: R51 Headache (principal); E11.9 Type 2 diabetes mellitus without complications; I10 Essential (primary) hypertension
CPT/HCPCS: 96361; 96365; 96375; 99284; 70450; J0780; J1200; J2930; J3475

== ENCOUNTER → 2018-09-23 14:09 | Outpatient (BNVA) | payer MEDICARE, OTHER, SELFPAY | PROVIDERS: PCP Family Medicine; Visit Provider Urology | DX: R39.12 Poor urinary stream (principal); R39.15 Urgency of urination | CPT/HCPCS: 51798; 81003; 99213 ==

== ENCOUNTER 2018-09-26 13:01 | Outpatient (CLI) | payer MEDICARE, OTHER, SELFPAY | END 2018-09-26 13:21 | PROVIDERS: PCP Family Medicine; Visit Provider Urology | DX: R30.0 Dysuria (principal) | CPT/HCPCS: 87086 ==

== ENCOUNTER 2018-11-11 20:30 | Emergency (ER) | payer MEDICARE, OTHER, SELFPAY ==
[2018-11-11] VITALS (23 sets, daily range): BP systolic 133–152; BP diastolic 69–89; PULSE 78–87; RESP 16–24; TEMP 36.7; O2SAT 96–100
--- NOTE | 2018-11-11 20:55 | ED.GENADUL_ITS ---
Discharge Plan Disposition Patient Disposition: HOME Condition: Stable Discharge Details Chief Complaint: Chest Pain Clinical Impression: Chest pain Primary Care Provider: Alisa Ramirez ED Provider: Yasmani Torrez Home Meds and New Rx's Prescriptions: No Action polyethylene glycol 3350 [Miralax] 17 GM powder in packet 17 g PO DAILY PRNQty: 255 RF: 0 nitroglycerin [Nitrostat] 0.4 MG tablet, sublingual 0.4 mg Sublingual as directed RF: 0 docusate sodium [Dulcolax Stool Softener (dss)] 100 MG capsule 100 mg PO DAILY PRNRF: 0 Levemir FlexTouch U-100 Insuln 100 UNIT/1 ML insulin pen 100 units subcut BID RF: 0 lisinopril 20 MG tablet 20 mg PO DAILY RF: 0 carvedilol 25 MG tablet 25 mg PO BID Qty: 120 RF: 4 ranitidine HCl [Zantac Maximum Strength] 150 mg tablet 150 mg PO DAILY RF: 0 riboflavin (vitamin B2) [Vitamin B-2] 100 mg tablet 200 mg PO BID RF: 0 topiramate [Topamax] 25 mg capsule, sprinkle 75 mg PO DAILY RF: 0 levothyroxine 50 MCG tablet 50 mcg PO DAILY@0730 RF: 0 allopurinol 300 MG tablet 300 mg PO DAILY RF: 0 quetiapine [Seroquel] 300 MG tablet 300 mg PO HS RF: 0 rosuvastatin [Crestor] 20 MG tablet 20 mg PO HS RF: 0 glimepiride [Amaryl] 4 MG tablet 4 mg PO DAILY@0800 RF: 0 acetaminophen [Tylenol] 325 MG tablet 2 tab PO Q4H PRN PRNRF: 0 gabapentin 300 mg capsule 300 mg PO HS RF: 0 olanzapine [Zyprexa] 10 mg Tablet 10 mg PO QPM RF: 0 tramadol 50 mg Tablet 50 mg PO Q6H PRNRF: 0 metformin [Glucophage] 1,000 mg Tablet 1,000 mg PO BID RF: 0 loratadine 10 mg capsule 10 mg PO DAILY Qty: 10 RF: 0 melatonin 3 mg Tablet 3 mg PO HS PRNRF: 0 magnesium oxide 400 mg Capsule 400 mg PO DAILY RF: 0 ipratropium bromide 0.03 % [place],Non-Aerosol 2 spray INTRANASAL BID RF: 0 cholecalciferol (vitamin D3) [Vitamin D3] 1,000 unit Tablet 1,000 unit PO DAILY RF: 0 Discharge Instructions Additional Instructions: Your blood work and imaging of your chest did not show any concerning findings Follow up with your primary care provider within a week If you have severe worsening pain, persistent vomit or difficulty breathing return to the emergency department Medical Decision Making 67 year old [place] [facility] [place] well as [place]DM2, hypertension, hyperlipidemia comes in with left upper chest and upper left arm pain intermittently since around 3pm. He took nitro without relief then took tums and pain improved. Pain is primarily in the left upper and left anterior upper chets and is reproducible on exam with full rom of the arm and intact vascular exam and sensation. He was admitted for chest pain in April of 2018 with similar complaints and he states this feels similar, had negative trops and mpi and cardiology felt it was musculoskeletal which this does sound similar to that but given his hx will obtain troponin and also obtain CTA to eval for dissection given he did state at one point it radiated to the back. No evidence of dvt and no hypoxia or tachycardia so doubt PE labs are unremarkable and imaging shows no acute findings. Given over 4 hours since start of the pain do not feel delta troponin inidcated. He feels much better and has no symptoms. He feels comfortable with d/c and f/u with pcp, return precautions given Differential Diagnosis gerd, gastritis, nstemi Medical Records Medical records reviewed: Yes I reviewed the patient's medical records. Imaging Data Radiologic Study: Attestation: I personally reviewed and interpreted this imaging study as follows: Imaging: CT Scan Radiologist's impression: IMPRESSION: 1. There are no intraluminal filling defects to suggest acute pulmonary embolus. 2. Solitary subcentimeter gallstone. 3. Distention of the stomach with fluid and food. Lab Data Lab results reviewed: Yes I reviewed the patient's lab results. ECG Data Attestation: I personally reviewed and interpreted this ECG (s) as follows: Prior ECG tracings: available for review Interpretation: sinus rhythm, rate of 78, pr 124, qtc 435 HPI General Mode of arrival: ambulatory . Date/Time Provider Initiated Documentation: 11/11/18 20:34 . Limitations to Documentation: no limitations . Information obtained by: patient . History of Present Illness 68 year old M presents to the emergency department with the chief complaint of left upper chest and left arm pain, described as mild and moderate, with intensity rated at 4. Quality is described as stabbing and aching, and is localized to the chest, left and upper extremity. Patient reports no radiation. Patient started experiencing this hour(s) (3) and it has been intermittent. No relieving factors improve symptom(s), No exacerbating factors reported . Patient notes no other symptoms.. Patient did receive the following treatments prior to arrival, other (tums) Related Data Home Medications Medication Instructions Recorded Confirmed allopurinol 300 mg PO DAILY 01/24/13 11/11/18 levothyroxine 50 mcg PO DAILY@0730 01/24/13 11/11/18 quetiapine [Seroquel] 300 mg PO HS 01/24/13 11/11/18 glimepiride [Amaryl] 4 mg PO DAILY@0800 01/11/17 11/11/18 rosuvastatin [Crestor] 20 mg PO HS 03/22/17 11/11/18 docusate sodium [Dulcolax Stool 100 mg PO DAILY PRN 04/08/17 11/11/18 Softener (dss)] nitroglycerin [Nitrostat] 0.4 mg SUBLINGUAL as directed 04/08/17 11/11/18 polyethylene glycol 3350 [Miralax] 17 g PO DAILY PRN #255 gm 04/08/17 11/11/18 acetaminophen [Tylenol] 2 tab PO Q4H PRN PRN tab 05/24/17 11/11/18 Levemir FlexTouch U-100 Insuln 100 units SUBCUT BID 08/04/17 11/11/18 lisinopril 20 mg PO DAILY tab-cap 11/25/17 11/11/18 carvedilol 25 mg PO BID #120 tab-cap 02/07/18 11/11/18 gabapentin 300 mg capsule 300 mg PO HS cap 07/27/18 11/11/18 ranitidine 150 mg tablet 150 mg PO DAILY tab-cap 07/27/18 11/11/18 riboflavin (vitamin B2) 100 mg 200 mg PO BID tab 07/27/18 11/11/18 tablet topiramate 25 mg sprinkle capsule 75 mg PO DAILY cap 08/01/18 11/11/18 loratadine 10 mg PO DAILY #10 cap 09/04/18 11/11/18 magnesium oxide 400 mg PO DAILY 09/04/18 11/11/18 melatonin 3 mg PO HS PRN 09/04/18 11/11/18 metformin [Glucophage] 1,000 mg PO BID 09/04/18 11/11/18 olanzapine [Zyprexa] 10 mg PO QPM 09/04/18 11/11/18 tramadol 50 mg PO Q6H PRN 09/04/18 11/11/18 cholecalciferol (vitamin D3) 1,000 unit PO DAILY 11/11/18 11/11/18 [Vitamin D3] ipratropium bromide 2 spray INTRANASAL BID 11/11/18 11/11/18 Previous Rx's Medication Instructions Recorded acetaminophen [Tylenol] 2 tab PO Q4H PRN PRN tab 05/24/17 carvedilol 25 mg PO BID #120 tab-cap 02/07/18 loratadine 10 mg PO DAILY #10 cap 09/04/18 Allergies Allergy/AdvReac Type Severity Reaction Status Date / Time amoxicillin Allergy Severe breathing Unverified 11/11/18 20:39 difficuty and vomiting Penicillins Allergy Skin Rash Unverified 11/11/18 20:39 sulfamethoxazole Allergy Skin Rash Unverified 11/11/18 20:39 [From Bactrim] trimethoprim [From Bactrim] Allergy Skin Rash Unverified 11/11/18 20:39 oxycodone HCl [From Percocet] AdvReac Severe Contraindic Unverified 11/11/18 20:39 ated oxycodone terephthalate AdvReac Severe Contraindic Unverified 11/11/18 20:39 [From Percodan] ated General Stated Complaint: Chest Pain MADELIN: 2 Review of Systems Review of Systems All systems reviewed & are unremarkable except as noted in HPI and below Constitutional Denies chills, Denies fever(s) and Denies weakness ENT Denies change in voice Cardiovascular Denies dyspnea Respiratory Denies cough and Denies dyspnea Gastrointestinal Denies abdominal pain, Denies nausea and Denies vomiting Integumentary/Breasts Denies rash Neurologic Denies weakness PFSH Social History Smoking/Tobacco Use Status: Never Alcohol Intake: never Drug use: Never Substance use type: does not use Household members: spouse Housing: house Pets and animals: Yes Pets and animals: dog(s) Do you feel safe at home: Yes Do you feel safe in your relationship?: Yes Exam Const General: no acute distress Orientation: alert HENMT Head: normal to inspection Ears: external ears normal General nose exam: external nose normal Mouth: moist mucous membranes Eyes General: appearance normal, both eyes and all related structures Neck Neck: normal visual inspection Resp Effort & Inspection: normal respiratory effort and able to speak in complete sentences Cardio Rate: regular rate Skin General skin exam: no rashes or lesions noted Neuro General: alert and oriented x3 Extrem General: normal to inspection Psych Mental Status: mental status grossly normal Course Vital Signs Temperature 36.7 C 11/11/18 20:33 Pulse 78 11/11/18 20:33 Respiratory Rate 20 11/11/18 20:33 Blood Pressure 145/74 H 11/11/18 20:33 Pulse Oximetry 100 11/11/18 20:33 Temperature 36.7 C 11/11/18 20:33 Temperature Source Skin 11/11/18 20:33 Pulse 78 11/11/18 20:33 Respiratory Rate 20 11/11/18 20:33 Blood Pressure 145/74 H 11/11/18 20:33 Blood Pressure Position Sitting 11/11/18 20:33 Pulse Oximetry 100 11/11/18 20:33 Oxygen Delivery Method Room Air 11/11/18 20:33 Oxygen Flow Rate 0 11/11/18 20:33 Pain Level 5 11/11/18 20:33
[2018-11-11 21:07] LABS: Abs Immature Grans 0.02 k/cumm (0.0-0.09); Absolute Basophil Count 0.08 k/cumm (0.0-0.2); Absolute Eosinophil Count 0.35 k/cumm (0.0-0.7); Absolute Lymphocyte Count 1.35 k/cumm (1.2-3.4); Absolute Monocyte Count 0.74 k/cumm (0.11-0.7); Absolute Neutrophil Count 3.43 k/cumm (1.2-6.7); Basophils % 1.3; Eosinophils % 5.9; HCT 38.4 % (40.0-50.0); Immature Grans % 0.3; Lymphocytes % 22.6; Mean Corp. HGB Concentration 33.9 g/dL (32.0-36.0); Mean Corpuscular Hemoglobin 27.5 pg (27.0-33.0); Mean Corpuscular Volume 81.4 fL (80-95); Mean Platelet Volume 8.9 fL (8.0-11.0); Monocytes % 12.4; Neutrophils % 57.5; Platelet Count 191 x1000/uL (130-400); RBC 4.72 m/cumm (4.50-6.00); RBC Distribution Width 15.1 % (11.8-14.1); White Blood Cell Count 5.97 k/cumm (4.4-10.8)
[2018-11-11] MEDS: Aspirin 81 MG CHEW 324 MG CH (21:13)
[2018-11-11 21:23] LABS: ALT 25 U/L (12-78); AST 16 U/L (15-37); Albumin 4.2 g/dL (3.4-5.0); Alkaline Phosphatase 86 U/L (46-116); Anion Gap 11.3 mmol/L (3-11); BUN 13 mg/dL (7-18); Bilirubin, Total 0.3 mg/dL (0.2-1.0); CO2 23.7 mmol/L (21.0-32.0); CREATININE 1.14 mg/dL (0.70-1.30); Calcium 8.9 mg/dL (8.5-10.1); Chloride 104 mmol/L (98-107); Glucose 190 mg/dL (70-100); Lipase 538 U/L (73-393); Magnesium 2.6 mg/dL (1.8-2.4); PTT Activated 23.7 sec (21.0-31.4); Potassium 4.2 mmol/L (3.5-5.1); Prothrombin Time 10.2 sec (9.3-11.0); Sodium 139 mmol/L (136-145); Total Protein 7.8 g/dL (6.4-8.2)
[2018-11-11] MEDS: Omnipaque 350 MG/ML 100 ML BTL IJ (21:23)
[2018-11-11 21:24] LABS: Troponin I < 0.02 ng/mL (0.00-0.06)
--- NOTE | 2018-11-11 21:25 | DI.CT_ITS ---
SYMPTOMS/DIAGNOSIS: CHEST PAIN CT ANGIOGRAPHY OF THE CHEST: CT angiography was performed with multi slice acquisition and multi planar and 3D reconstruction. Routine examination was performed. There are no filling defects seen to suggest a pulmonary embolus. The thoracic aorta is normal in caliber. No aneurysm or dissection is present. The heart size is within normal limits. No findings to suggest right ventricular dysfunction are present. No significant pericardial effusion is seen. No significant thoracic adenopathy, pleural effusion or pneumothorax is identified. The lungs show no focal consolidating infiltrates. Areas of atelectasis are seen in the lungs. The tracheobronchial tree is unremarkable. Upper abdominal images show a 1 cm hypodensity in the right lobe of the liver which is unchanged compared to CT scan of the abdomen and pelvis from 08/17/18. There is again seen a cyst in the right kidney. There is a stone in the gallbladder. These are both stable. There are sternal wires in place. Degenerative changes are seen in the spine. IMPRESSION: 1. No evidence of a pulmonary embolus, thoracic aortic dissection or aneurysm. 2. Stable upper abdominal findings including hepatic and right renal cyst and gallstone.
[2018-11-11 21:26] LABS: NT-proBNP 57 pg/mL
--- NOTE | 2018-11-11 22:10 | DI.VRAD_ITS ---
EXAM: CT Angiography Chest With Contrast EXAM DATE/TIME: 11/11/2018 9:01 PM CLINICAL HISTORY: 68 years old, male; Chest pain; Type not specified; Prior surgery; Surgery date: 6+ months; Surgery type: Bypass TECHNIQUE: Imaging protocol: Axial computed tomographic angiography images of the chest with intravenous contrast using CT angiography protocol. Coronal and sagittal reformatted images were created and reviewed. 3D rendering: MIP reconstructed images were created and reviewed. Radiation optimization: All CT scans at this facility use at least one of these dose optimization techniques: automated exposure control; mA and/or kV adjustment per patient size (includes targeted exams where dose is matched to clinical indication); or iterative reconstruction. Contrast material: [id number]; Contrast volume: 100 ml; Contrast route: IV; COMPARISON: CR XR CHEST 2V PA LATERAL 05/20/2018 5:29 PM FINDINGS: Pulmonary arteries: There are no intraluminal filling defects to suggest acute pulmonary embolus. Aorta: Aorta demonstrates mild atherosclerotic calcification. Lungs: Respiratory motion limits pulmonary parenchymal evaluation. Mild posterior changes of hypoaeration in the lung moraes bilaterally. Small left apical fibrotic band. Pleural space: Normal. No pneumothorax. No pleural effusion. Heart: Normal. No cardiomegaly. No pericardial effusion. Liver: 1 cm right lobe hepatic cyst. Gallbladder and bile ducts: Small subcentimeter calcification in the gallbladder consistent with a small gallstone. There is no evidence of wall thickening or pericholecystic fluid. Kidneys and ureters: 1.5 cm medial right lower pole renal cyst. Stomach and bowel: Distended stomach with fluid and food. Lymph nodes: Unremarkable. No enlarged lymph nodes. Bones/joints: There are sternal wires consistent with previous sternotomy incision. Degenerative changes of the thoracic spine without acute osseous abnormality. Soft tissues: Unremarkable. IMPRESSION: 1. There are no intraluminal filling defects to suggest acute pulmonary embolus. 2. Solitary subcentimeter gallstone. 3. Distention of the stomach with fluid and food. Dictated and Authenticated by: Delmer Ko MD. Ordering:GUERA Gruber MD
== END 2018-11-11 22:38 | disposition home or self-care (01) ==
PROVIDERS: Emergency Provider Emergency Medicine; PCP Family Medicine
DX: R07.9 Chest pain, unspecified (principal); I10 Essential (primary) hypertension; E11.9 Type 2 diabetes mellitus without complications; I25.10 Atherosclerotic heart disease of native coronary artery without angina pectoris; Z95.1 Presence of aortocoronary bypass graft
CPT/HCPCS: 36415; 71275; 80053; 83690; 93005; 99285; 83735; 83880; 84484; 85025; 85610; 85730; 93010; J3490

== ENCOUNTER 2018-12-07 16:18 | Outpatient (REF) | payer MEDICARE, OTHER, SELFPAY ==
[2018-12-09 17:02] LABS: Beta-2 Transferrin, BF Negative
== END 2018-12-07 16:38 ==
LOC: NCHCN 16:18
PROVIDERS: PCP Family Medicine; Visit Provider Family Medicine
DX: J34.89 Other specified disorders of nose and nasal sinuses (principal)
CPT/HCPCS: 86335

== ENCOUNTER 2018-12-09 14:13 | Emergency (ER) | payer MEDICARE, OTHER, SELFPAY ==
[2018-12-09 14:16] VITALS: BP 158/82; PULSE 82; RESP 16; TEMP 36.6; O2SAT 100
--- NOTE | 2018-12-09 14:26 | W.ED.GENAD ---
Discharge Plan Disposition Patient Disposition: HOME Condition: Stable Discharge Details Chief Complaint: EyeProblem Clinical Impression: Acute eye pain Primary Care Provider: Alisa Ramirez ED Provider: Evelyn Griffith Home Meds and New Rx's Prescriptions: Continued polyethylene glycol 3350 [Miralax] 17 GM powder in packet 17 g PO DAILY PRNQty: 255 RF: 0 nitroglycerin [Nitrostat] 0.4 MG tablet, sublingual 0.4 mg Sublingual as directed RF: 0 docusate sodium [Dulcolax Stool Softener (dss)] 100 MG capsule 100 mg PO DAILY PRNRF: 0 Levemir FlexTouch U-100 Insuln 100 UNIT/1 ML insulin pen 100 units subcut BID RF: 0 lisinopril 20 MG tablet 20 mg PO DAILY RF: 0 carvedilol 25 MG tablet 25 mg PO BID Qty: 120 RF: 4 ranitidine HCl [Zantac Maximum Strength] 150 mg tablet 150 mg PO DAILY RF: 0 riboflavin (vitamin B2) [Vitamin B-2] 100 mg tablet 200 mg PO BID RF: 0 topiramate [Topamax] 25 mg capsule, sprinkle 75 mg PO DAILY RF: 0 levothyroxine 50 MCG tablet 50 mcg PO DAILY@0730 RF: 0 allopurinol 300 MG tablet 300 mg PO DAILY RF: 0 quetiapine [Seroquel] 300 MG tablet 300 mg PO HS RF: 0 rosuvastatin [Crestor] 20 MG tablet 20 mg PO HS RF: 0 glimepiride [Amaryl] 4 MG tablet 4 mg PO DAILY@0800 RF: 0 acetaminophen [Tylenol] 325 MG tablet 2 tab PO Q4H PRN PRNRF: 0 gabapentin 300 mg capsule 300 mg PO HS RF: 0 olanzapine [Zyprexa] 10 mg Tablet 10 mg PO QPM RF: 0 tramadol 50 mg Tablet 50 mg PO Q6H PRNRF: 0 metformin [Glucophage] 1,000 mg Tablet 1,000 mg PO BID RF: 0 loratadine 10 mg capsule 10 mg PO DAILY Qty: 10 RF: 0 melatonin 3 mg Tablet 3 mg PO HS PRNRF: 0 magnesium oxide 400 mg Capsule 400 mg PO DAILY RF: 0 ipratropium bromide 0.03 % [place],Non-Aerosol 2 spray INTRANASAL BID RF: 0 cholecalciferol (vitamin D3) [Vitamin D3] 1,000 unit Tablet 1,000 unit PO DAILY RF: 0 Discharge Instructions Instructions: Eye Pain (ED) Additional Instructions: Encourage hydration. Please take medications as prescribed. Care coordinators trying to get these to be more affordable for you and will contact you to nut picker prescriptions. If you develop fever/chills, increased pain, visual changes or other new/worsening symptoms please seek care urgently once again. Otherwise, [facility] with [facility]. Referrals: Alisa Ramirez MD [Primary Care Provider] - Discharge Data Discharge Date/Time-TO BE ENTERED AT DEPARTURE: 12/09/18 15:16 Medical Decision Making Patient is 68-year-old male presents today with chief complaint of bilateral eye pain. He reports that he had sinus surgery at [facility] 2 weeks ago and has had pain in his eyes since that time. [facility] by the [facility] where [facility] and they were concerned that this may be a reaction to the anesthetic. They prescribed medications with the patient is unable to nut picker secondary to financial stressors. Exam concerning for mild injection of conjunctiva. Otherwise, exam is benign. Intraocular pressures were measured and found to be within normal limits. Do not see any emergent change in his eyes today. I contacted our health care facilities inspector he was going to help with the financial burden of these medications. I did contact the pharmacy who advised the prior authorization is needed. She is working on this and will contact the patient that he is able to receive the appropriate medications. We discussed new/worsening symptoms when to seek care urgently once again. All his questions and concerns were addressed and he is in agreement this plan. HPI General Mode of arrival: ambulatory. Date/Time Provider Initiated Documentation: 12/09/18 14:24. Limitations to Documentation: no limitations. Information obtained by: patient and RN notes reviewed. History of Present Illness 68 year old M presents to the emergency department with the chief complaint of bilateral eye pain, described as moderate, with intensity rated at 8. Quality is described as burning, and is localized to the eyes. Patient reports no radiation. Patient started experiencing this week(s) (2) and it has been constant. No relieving factors improve symptom(s), No exacerbating factors reported . Patient notes denies chest pain, fever/chills, headaches, nausea/vomiting and rash. Patient did receive the following treatments prior to arrival, none Related Data Home Medications Medication Instructions Recorded Confirmed allopurinol 300 mg PO DAILY 01/24/13 12/09/18 levothyroxine 50 mcg PO DAILY@0730 01/24/13 12/09/18 quetiapine [Seroquel] 300 mg PO HS 01/24/13 12/09/18 glimepiride [Amaryl] 4 mg PO DAILY@0800 01/11/17 12/09/18 rosuvastatin [Crestor] 20 mg PO HS 03/22/17 12/09/18 docusate sodium [Dulcolax Stool 100 mg PO DAILY PRN 04/08/17 12/09/18 Softener (dss)] nitroglycerin [Nitrostat] 0.4 mg SUBLINGUAL as directed 04/08/17 12/09/18 polyethylene glycol 3350 [Miralax] 17 g PO DAILY PRN #255 gm 04/08/17 12/09/18 acetaminophen [Tylenol] 2 tab PO Q4H PRN PRN tab 05/24/17 12/09/18 Levemir FlexTouch U-100 Insuln 100 units SUBCUT BID 08/04/17 12/09/18 lisinopril 20 mg PO DAILY tab-cap 11/25/17 12/09/18 carvedilol 25 mg PO BID #120 tab-cap 02/07/18 12/09/18 gabapentin 300 mg capsule 300 mg PO HS cap 07/27/18 12/09/18 ranitidine 150 mg tablet 150 mg PO DAILY tab-cap 07/27/18 12/09/18 riboflavin (vitamin B2) 100 mg 200 mg PO BID tab 07/27/18 12/09/18 tablet topiramate 25 mg sprinkle capsule 75 mg PO DAILY cap 08/01/18 12/09/18 loratadine 10 mg PO DAILY #10 cap 09/04/18 12/09/18 magnesium oxide 400 mg PO DAILY 09/04/18 12/09/18 melatonin 3 mg PO HS PRN 09/04/18 12/09/18 metformin [Glucophage] 1,000 mg PO BID 09/04/18 12/09/18 olanzapine [Zyprexa] 10 mg PO QPM 09/04/18 12/09/18 tramadol 50 mg PO Q6H PRN 09/04/18 12/09/18 cholecalciferol (vitamin D3) 1,000 unit PO DAILY 11/11/18 12/09/18 [Vitamin D3] ipratropium bromide 2 spray INTRANASAL BID 11/11/18 12/09/18 Previous Rx's Medication Instructions Recorded acetaminophen [Tylenol] 2 tab PO Q4H PRN PRN tab 05/24/17 carvedilol 25 mg PO BID #120 tab-cap 02/07/18 loratadine 10 mg PO DAILY #10 cap 09/04/18 Allergies Allergy/AdvReac Type Severity Reaction Status Date / Time amoxicillin Allergy Severe breathing Unverified 12/09/18 14:37 difficuty and vomiting Penicillins Allergy Skin Rash Unverified 12/09/18 14:37 sulfamethoxazole Allergy Skin Rash Unverified 12/09/18 14:37 [From Bactrim] trimethoprim [From Bactrim] Allergy Skin Rash Unverified 12/09/18 14:37 oxycodone HCl [From Percocet] AdvReac Severe Contraindic Unverified 12/09/18 14:37 ated oxycodone terephthalate AdvReac Severe Contraindic Unverified 12/09/18 14:37 [From Percodan] ated General Stated Complaint: EyeProblem MADELIN: 4 Review of Systems Constitutional Reports as per HPI, Denies chills, Denies fever(s), Denies headache(s) and Denies weakness Eyes Reports as per HPI, Reports blurry vision (for the past 2 weeks), Denies eye discharge, Denies dry eyes, Reports irritation, Reports itchy eyes, Reports eye pain and Reports requires corrective lenses (typically wears glasses, not wearing them today) ENT Denies otalgia, Denies facial pain, Denies headache(s), Denies nose pain, Denies post nasal drip, Denies sinus pain and Denies sinus pressure Cardiovascular Denies chest pain Respiratory Denies cough Integumentary/Breasts Denies rash, Denies skin swelling and Denies wounds Neurologic Denies headache(s) and Denies weakness Allergic/Immunologic Reports itchy eyes PFSH Medical History CAD (coronary artery disease) Chronic low back pain Colon polyps DM type 2 (diabetes mellitus, type 2) Depression Diastasis recti Fatty liver GERD (gastroesophageal reflux disease) Gout H/O alcohol abuse Headaches due to 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 Hx of deep venous thrombosis Hyperlipidemia Hypertension Hypothyroidism MRSA infection Obstructive sleep apnea Urethral stricture Vitamin D deficiency Surgical History Appendectomy (06/01/16) Colonoscopy - MAC Coronary Artery Bypass Gaft (CABG) Extraction of cataract Repair of inguinal hernia (08/05/17) Repair of umbilical hernia electroconvulsive therapy facial lesion removal Social History Smoking/Tobacco Use Status: Never Alcohol Intake: never Drug use: Never Substance use type: does not use Household members: spouse Housing: house Pets and animals: Yes Pets and animals: dog(s) Do you feel safe at home: Yes Do you feel safe in your relationship?: Yes Exam Const General: cooperative, healthy appearing, comfortable, no acute distress, well developed and well groomed Nutritional Appearance: average body habitus and well nourished Orientation: alert and awake [facility] Head: normal to inspection and normocephalic Ears: hearing grossly normal bilaterally General nose exam: external nose normal and nares normal Face and sinus: normal facial exam Eyes Visual Fox: normal visual fox by confrontation Alignment and Position: alignment normal Periorbital: periorbital findings normal Eyelids: eyelids normal Conjunctivae: conjunctival abnormality bilaterally conjunctival injection diffuse (very mild); without discharge Sclera: sclerae normal Cornea: corneas normal Pupils: PERRL EOM: EOM intact bilaterally Neck Neck: normal visual inspection and no lymphadenopathy Resp Effort & Inspection: normal respiratory effort, able to speak in complete sentences and no respiratory distress Cardio Rate: regular rate Rhythm: regular rhythm Skin General skin exam: no rashes or lesions noted Neuro General: alert, awake, oriented x3 and gait normal Cranial Nerves: CN's II-XI intact bilaterally Cognition: normal cognition Speech: speech normal Gait: normal gait Psych Appearance: grossly normal and well kempt Mental Status: mental status grossly normal Speech and Movement: speech and movement normal Course Vital Signs Temperature 36.6 C 12/09/18 14:16 Pulse 82 12/09/18 14:16 Respiratory Rate 16 12/09/18 14:16 Blood Pressure 158/82 H 12/09/18 14:16 Pulse Oximetry 100 12/09/18 14:16 Temperature 36.6 C 12/09/18 14:16 Temperature Source Temporal Artery Scan 12/09/18 14:16 Pulse 82 12/09/18 14:16 Respiratory Rate 16 12/09/18 14:16 Respiratory Effort Non-Labored 12/09/18 14:23 Blood Pressure 158/82 H 12/09/18 14:16 Blood Pressure Position Sitting 12/09/18 14:16 Pulse Oximetry 100 12/09/18 14:16 Oxygen Delivery Method Room Air 12/09/18 14:16 Oxygen Flow Rate 0 12/09/18 14:16 Pain Level 8 12/09/18 14:16
--- NOTE | 2018-12-09 14:42 | ED.GENADUL_ITS ---
Discharge Plan Disposition Patient Disposition: HOME Condition: Stable Discharge Details Chief Complaint: EyeProblem Clinical Impression: Acute eye pain Primary Care Provider: Alisa Ramirez ED Provider: Evelyn Griffith Home Meds and New Rx's Prescriptions: Continued polyethylene glycol 3350 [Miralax] 17 GM powder in packet 17 g PO DAILY PRNQty: 255 RF: 0 nitroglycerin [Nitrostat] 0.4 MG tablet, sublingual 0.4 mg Sublingual as directed RF: 0 docusate sodium [Dulcolax Stool Softener (dss)] 100 MG capsule 100 mg PO DAILY PRNRF: 0 Levemir FlexTouch U-100 Insuln 100 UNIT/1 ML insulin pen 100 units subcut BID RF: 0 lisinopril 20 MG tablet 20 mg PO DAILY RF: 0 carvedilol 25 MG tablet 25 mg PO BID Qty: 120 RF: 4 ranitidine HCl [Zantac Maximum Strength] 150 mg tablet 150 mg PO DAILY RF: 0 riboflavin (vitamin B2) [Vitamin B-2] 100 mg tablet 200 mg PO BID RF: 0 topiramate [Topamax] 25 mg capsule, sprinkle 75 mg PO DAILY RF: 0 levothyroxine 50 MCG tablet 50 mcg PO DAILY@0730 RF: 0 allopurinol 300 MG tablet 300 mg PO DAILY RF: 0 quetiapine [Seroquel] 300 MG tablet 300 mg PO HS RF: 0 rosuvastatin [Crestor] 20 MG tablet 20 mg PO HS RF: 0 glimepiride [Amaryl] 4 MG tablet 4 mg PO DAILY@0800 RF: 0 acetaminophen [Tylenol] 325 MG tablet 2 tab PO Q4H PRN PRNRF: 0 gabapentin 300 mg capsule 300 mg PO HS RF: 0 olanzapine [Zyprexa] 10 mg Tablet 10 mg PO QPM RF: 0 tramadol 50 mg Tablet 50 mg PO Q6H PRNRF: 0 metformin [Glucophage] 1,000 mg Tablet 1,000 mg PO BID RF: 0 loratadine 10 mg capsule 10 mg PO DAILY Qty: 10 RF: 0 melatonin 3 mg Tablet 3 mg PO HS PRNRF: 0 magnesium oxide 400 mg Capsule 400 mg PO DAILY RF: 0 ipratropium bromide 0.03 % [place],Non-Aerosol 2 spray INTRANASAL BID RF: 0 cholecalciferol (vitamin D3) [Vitamin D3] 1,000 unit Tablet 1,000 unit PO DAILY RF: 0 Discharge Instructions Instructions: Eye Pain (ED) Additional Instructions: Encourage hydration. Please take medications as prescribed. Care coordinators trying to get these to be more affordable for you and will contact you to fiber picker prescriptions. If you develop fever/chills, increased pain, visual changes or other new/worsening symptoms please seek care urgently once again. Otherwise, [facility] with [facility]. Referrals: Alisa Ramirez MD [Primary Care Provider] - Discharge Data Discharge Date/Time-TO BE ENTERED AT DEPARTURE: 12/09/18 15:16 Medical Decision Making Patient is 68-year-old male presents today with chief complaint of bilateral eye pain. He reports that he had sinus surgery at [facility] 2 weeks ago and has had pain in his eyes since that time. [facility] the [facility] where [facility] and they were concerned that this may be a reaction to the anesthetic. They prescribed medications with the patient is unable to fiber picker secondary to financial stressors. Exam concerning for mild injection of conjunctiva. Otherwise, exam is benign. Intraocular pressures were measured and found to be within normal limits. Do not see any emergent change in his eyes today. I contacted our aged or disabled carer he was going to help with the financial burden of these medications. I did contact the pharmacy who advised the prior authorization is needed. She is working on this and will contact the patient that he is able to receive the appropriate medications. We discussed new/worsening symptoms when to seek care urgently once again. All his questions and concerns were addressed and he is in agreement this plan. HPI General Mode of arrival: ambulatory . Date/Time Provider Initiated Documentation: 12/09/18 14:24 . Limitations to Documentation: no limitations . Information obtained by: patient and RN notes reviewed . History of Present Illness 68 year old M presents to the emergency department with the chief complaint of bilateral eye pain, described as moderate, with intensity rated at 8. Quality is described as burning, and is localized to the eyes. P atient reports no radiation. Patient started experiencing this week(s) (2) and it has been constant. No relieving factors improve symptom(s), No exacerbating factors reported . Patient notes denies chest pain, fever/chills, headaches, nausea/vomiting and rash. Patient did receive the following treatments prior to arrival, none Related Data Home Medications Medication Instructions Recorded Confirmed allopurinol 300 mg PO DAILY 01/24/13 12/09/18 levothyroxine 50 mcg PO DAILY@0730 01/24/13 12/09/18 quetiapine [Seroquel] 300 mg PO HS 01/24/13 12/09/18 glimepiride [Amaryl] 4 mg PO DAILY@0800 01/11/17 12/09/18 rosuvastatin [Crestor] 20 mg PO HS 03/22/17 12/09/18 docusate sodium [Dulcolax Stool 100 mg PO DAILY PRN 04/08/17 12/09/18 Softener (dss)] nitroglycerin [Nitrostat] 0.4 mg SUBLINGUAL as directed 04/08/17 12/09/18 polyethylene glycol 3350 [Miralax] 17 g PO DAILY PRN #255 gm 04/08/17 12/09/18 acetaminophen [Tylenol] 2 tab PO Q4H PRN PRN tab 05/24/17 12/09/18 Levemir FlexTouch U-100 Insuln 100 units SUBCUT BID 08/04/17 12/09/18 lisinopril 20 mg PO DAILY tab-cap 11/25/17 12/09/18 carvedilol 25 mg PO BID #120 tab-cap 02/07/18 12/09/18 gabapentin 300 mg capsule 300 mg PO HS cap 07/27/18 12/09/18 ranitidine 150 mg tablet 150 mg PO DAILY tab-cap 07/27/18 12/09/18 riboflavin (vitamin B2) 100 mg 200 mg PO BID tab 07/27/18 12/09/18 tablet topiramate 25 mg sprinkle capsule 75 mg PO DAILY cap 08/01/18 12/09/18 loratadine 10 mg PO DAILY #10 cap 09/04/18 12/09/18 magnesium oxide 400 mg PO DAILY 09/04/18 12/09/18 melatonin 3 mg PO HS PRN 09/04/18 12/09/18 metformin [Glucophage] 1,000 mg PO BID 09/04/18 12/09/18 olanzapine [Zyprexa] 10 mg PO QPM 09/04/18 12/09/18 tramadol 50 mg PO Q6H PRN 09/04/18 12/09/18 cholecalciferol (vitamin D3) 1,000 unit PO DAILY 11/11/18 12/09/18 [Vitamin D3] ipratropium bromide 2 spray INTRANASAL BID 11/11/18 12/09/18 Previous Rx's Medication Instructions Recorded acetaminophen [Tylenol] 2 tab PO Q4H PRN PRN tab 05/24/17 carvedilol 25 mg PO BID #120 tab-cap 02/07/18 loratadine 10 mg PO DAILY #10 cap 09/04/18 Allergies Allergy/AdvReac Type Severity Reaction Status Date / Time amoxicillin Allergy Severe breathing Unverified 12/09/18 14:37 difficuty and vomiting Penicillins Allergy Skin Rash Unverified 12/09/18 14:37 sulfamethoxazole Allergy Skin Rash Unverified 12/09/18 14:37 [From Bactrim] trimethoprim [From Bactrim] Allergy Skin Rash Unverified 12/09/18 14:37 oxycodone HCl [From Percocet] AdvReac Severe Contraindic Unverified 12/09/18 14:37 ated oxycodone terephthalate AdvReac Severe Contraindic Unverified 12/09/18 14:37 [From Percodan] ated General Stated Complaint: EyeProblem MADELIN: 4 Review of Systems Constitutional Reports as per HPI, Denies chills, Denies fever(s), Denies headache(s) and Denies weakness Eyes Reports as per HPI, Reports blurry vision (for the past 2 weeks), Denies eye discharge, Denies dry eyes, Reports irritation, Reports itchy eyes, Reports eye pain and Reports requires corrective lenses (typically wears glasses, not wearing them today) ENT Denies otalgia, Denies facial pain, Denies headache(s), Denies nose pain, Denies post nasal drip, Denies sinus pain and Denies sinus pressure Cardiovascular Denies chest pain Respiratory Denies cough Integumentary/Breasts Denies rash, Denies skin swelling and Denies wounds Neurologic Denies headache(s) and Denies weakness Allergic/Immunologic Reports itchy eyes PFSH Medical History CAD (coronary artery disease) Chronic low back pain Colon polyps DM type 2 (diabetes mellitus, type 2) Depression Diastasis recti Fatty liver GERD (gastroesophageal reflux disease) Gout H/O alcohol abuse Headaches due to 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 Hx of deep venous thrombosis Hyperlipidemia Hypertension Hypothyroidism MRSA infection Obstructive sleep apnea Urethral stricture Vitamin D deficiency Surgical History Appendectomy (06/01/16) Colonoscopy - MAC Coronary Artery Bypass Gaft (CABG) Extraction of cataract Repair of inguinal hernia (08/05/17) Repair of umbilical hernia electroconvulsive therapy facial lesion removal Social History Smoking/Tobacco Use Status: Never Alcohol Intake: never Drug use: Never Substance use type: does not use Household members: spouse Housing: house Pets and animals: Yes Pets and animals: dog(s) Do you feel safe at home: Yes Do you feel safe in your relationship?: Yes Exam Const General: cooperative, healthy appearing, comfortable, no acute distress, well developed and well groomed Nutritional Appearance: average body habitus and well nourished Orientation: alert and awake [facility] Head: normal to inspection and normocephalic Ears: hearing grossly normal bilaterally General nose exam: external nose normal and nares normal Face and sinus: normal facial exam Eyes Visual Fox: normal visual fox by confrontation Alignment and Position: alignment normal Periorbital: periorbital findings normal Eyelids: eyelids normal Conjunctivae: conjunctival abnormality bilaterally conjunctival injection diffuse (very mild); without discharge Sclera: sclerae normal Cornea: corneas normal Pupils: PERRL EOM: EOM intact bilaterally Neck Neck: normal visual inspection and no lymphadenopathy Resp Effort & Inspection: normal respiratory effort, able to speak in complete sentences and no respiratory distress Cardio Rate: regular rate Rhythm: regular rhythm Skin General skin exam: no rashes or lesions noted Neuro General: alert, awake, oriented x3 and gait normal Cranial Nerves: CN's II-XI intact bilaterally Cognition: normal cognition Speech: speech normal Gait: normal gait Psych Appearance: grossly normal and well kempt Mental Status: mental status grossly normal Speech and Movement: speech and movement normal Course Vital Signs Temperature 36.6 C 12/09/18 14:16 Pulse 82 12/09/18 14:16 Respiratory Rate 16 12/09/18 14:16 Blood Pressure 158/82 H 12/09/18 14:16 Pulse Oximetry 100 12/09/18 14:16 Temperature 36.6 C 12/09/18 14:16 Temperature Source Temporal Artery Scan 12/09/18 14:16 Pulse 82 12/09/18 14:16 Respiratory Rate 16 12/09/18 14:16 Respiratory Effort Non-Labored 12/09/18 14:23 Blood Pressure 158/82 H 12/09/18 14:16 Blood Pressure Position Sitting 12/09/18 14:16 Pulse Oximetry 100 12/09/18 14:16 Oxygen Delivery Method Room Air 12/09/18 14:16 Oxygen Flow Rate 0 12/09/18 14:16 Pain Level 8 12/09/18 14:16
--- NOTE | 2018-12-12 17:36 | PDOC.ERCMPRO ---
- If Service Date Differs Date of service: 12/09/18 Time of Service: 14:30 Care Management Progress Note CM met with the patient he has been unable to obtain his Tobrodex ointment which was prescribed by [facility] and is 218.00 at [facility]. CM contacted [facility] pharmacy and the cost of the prescription is 10.08 through [facility]. Family agrees to having [facility] fill the prescriptions and it will be sent to the patient immediately. All questions where answered and patient and his spouse will follow up with CM for questions and concerns.
--- NOTE | 2018-12-12 17:43 | CMPROGNOTE_ITS ---
- If Service Date Differs Date of service: 12/09/18 Time of Service: 14:30 Care Management Progress Note CM met with the patient he has been unable to obtain his Tobrodex ointment which was prescribed by [facility] and is 218.00 at [facility]. CM contacted [facility] pharmacy and the cost of the prescription is 10.08 through [facility]. Family agrees to having [facility] fill the prescriptions and it will be sent to the patient immediately. All questions where answered and patient and his spouse will follow up with CM for questions and concerns.
== END 2018-12-09 15:16 | disposition home or self-care (01) ==
PROVIDERS: Emergency Provider Physician Assistant; PCP Family Medicine
DX: H57.13 Ocular pain, bilateral (principal); E11.9 Type 2 diabetes mellitus without complications; Z79.84 Long term (current) use of oral hypoglycemic drugs; I10 Essential (primary) hypertension
CPT/HCPCS: 99282

== ENCOUNTER 2019-01-10 11:13 | Outpatient (CLI) | payer MEDICARE, OTHER, SELFPAY ==
--- NOTE | 2019-01-10 06:00 | DI.RAD_ITS ---
SYMPTOMS/DIAGNOSIS: LUMBAR RADICULOPATHY, TRANSFORAMINAL EPIDURAL STEROID INJECTION PAIN CLINIC: Fluoroscopy Time: 28.4sec, 10.86mgy Fluoroscopy was utilized by Dr. Boucher during the performance of a transforaminal epidural steroid injection. Please refer to the procedure report for complete details.
[2019-01-10 11:20] VITALS: BP 125/70; PULSE 96; RESP 22; TEMP 37.2; O2SAT 100
[2019-01-10] MEDS: Omnipaque 240 MG/ML 50 ML BTL IJ (12:07)
[2019-01-10 12:09] VITALS: BP 128/71; PULSE 97; RESP 22; O2SAT 99
[2019-01-10] MEDS: Dexamethasone 10 MG/ML VIAL IM (12:09)
--- NOTE | 2019-01-10 12:20 | PDOC.PAIN ---
Pain Clinic Procedure Note Current Active Problems Problem Status Onset Lumbar radiculitis LUMBAR / SACRAL TRANSFORAMINAL INJECTION at the right L5 LANDRY RAY has been [facility] for a transforaminal nerve root block and steroid injection. COMMENTS: Good pain relief with his last injection Patient was interviewed and the medical record reviewed. There were no medical, pharmacologic, radiographic or other structural contraindications to attempting fluoroscopically guided transforaminal nerve root block and epidural steroid injection. Risks and expected side effects as well as potential benefit of the procedure were reviewed and voiced concerns addressed. The printed consent form was signed and witnessed. Standard time-out procedure was performed. Patient was placed in the prone position on the fluoroscopy table and automated blood pressure cuff and pulse oximeter applied. Fluoroscopy was utilized to identify the right neural foramen between L5 and S1. A skin rachelle was made for the needle insertion site. A Chlorhexadine prep was carried out, and sterile drapes were applied. Local anesthesia was achieved in the skin and subcutaneous tissues. A 22 gauge curved tip spinal needle was then inserted, advanced with fluoroscopic guidance into the neural foramen, confirmed on the lateral view. After negative aspiration, 2 ml of Omnipaque 240 was injected confirming position in A/P and lateral views. This showed a good spread of dye transforaminally into the epidural space. There was no vascular update with contrast injection under continuous fluoroscopy and digital substraction. 10 mg of Dexamethasone was injected, followed by 0.5 ml of 1% Xylocaine flush for the nerve root block, as well. There was no unusual discomfort expressed.The needle was withdrawn. The patient tolerated the procedure well. A Band-Aid was applied. Vital signs were stable throughout the procedure and were as recorded in nursing records. If given, dosages of intravenous drugs for anxiolysis and analgesia were documented in nursing records. Follow up plans and appointments were discussed. Post procedure instruction was given as documented in nursing records and patient was discharged in the care of an identified route relief driver. COMMENTS: If this procedure is found to be effective, it can be completed up to 3 times per 12 months. CC: Alisa Ramirez
== END 2019-01-10 11:33 ==
PROVIDERS: PCP Family Medicine; Visit Provider Preventive Medicine Occupational Medicine
DX: M54.16 Radiculopathy, lumbar region (principal)
CPT/HCPCS: 64483; 72100; J1100; Q9967

== ENCOUNTER 2019-03-08 10:44 | Emergency (ER) | payer MEDICARE, OTHER, SELFPAY ==
[2019-03-08] VITALS (33 sets, daily range): BP systolic 120–167; BP diastolic 66–96; PULSE 79–95; RESP 16–25; TEMP 36.8; O2SAT 96–100
--- NOTE | 2019-03-08 10:54 | NUR.NOTE ---
Nursing Note: Blood glucose 236
--- NOTE | 2019-03-08 11:01 | NUR.NOTE ---
Nursing Note: pt to CT with RN on monitor.
--- NOTE | 2019-03-08 11:03 | DI.RAD_ITS ---
EXAM: XR CHEST 1V IN DI DEPT INDICATION: stroke-like symptoms. COMPARISON: XR CHEST 2V PA AND LATERAL from 05/20/2018 TECHNIQUE: 2D digital imaging was performed. FINDINGS: Heart is not enlarged. There are multiple mediastinal vascular clips and sternal sutures consistent with prior CABG surgery. Lungs are clear and well expanded. IMPRESSION: No evidence of acute intrapulmonary process
--- NOTE | 2019-03-08 11:04 | W.ED.GENAD ---
Discharge Plan Disposition Patient Disposition: LEONARDO JOE ([facility]) Condition: Good Discharge Details Chief Complaint: CVA/TIA Clinical Impression: Acute ischemic stroke Primary Care Provider: Alisa Ramirez ED Provider: Christopher Lua Home Meds and New Rx's Prescriptions: No Action gabapentin 100 mg capsule 100 mg PO QHS RF: 0 albuterol sulfate [Ventolin HFA] 90 mcg/actuation HFA aerosol inhaler 2 puff IH Q6H PRNRF: 0 acetylcysteine [NAC] 600 mg capsule 600 mg PO BID RF: 0 ipratropium bromide 0.03 % spray,non-aerosol 2 spray DAPHNE BID RF: 0 polyethylene glycol 3350 [Miralax] 17 GM powder in packet 17 g PO DAILY PRNQty: 255 RF: 0 nitroglycerin [Nitrostat] 0.4 MG tablet, sublingual 0.4 mg Sublingual as directed RF: 0 docusate sodium [Dulcolax Stool Softener (dss)] 100 MG capsule 100 mg PO DAILY PRNRF: 0 Levemir FlexTouch U-100 Insuln 100 UNIT/1 ML insulin pen 100 units subcut BID RF: 0 lisinopril 20 MG tablet 20 mg PO DAILY RF: 0 carvedilol 25 MG tablet 25 mg PO BID Qty: 120 RF: 4 topiramate [Topamax] 25 mg capsule, sprinkle 50 mg PO DAILY RF: 0 riboflavin (vitamin B2) [Vitamin B-2] 100 mg tablet 400 mg PO BID RF: 0 levothyroxine 50 MCG tablet 50 mcg PO DAILY@0730 RF: 0 allopurinol 300 MG tablet 300 mg PO DAILY RF: 0 quetiapine [Seroquel] 300 MG tablet 300 mg PO HS RF: 0 rosuvastatin [Crestor] 20 MG tablet 20 mg PO HS RF: 0 citalopram 10 mg Tablet 10 mg PO DAILY RF: 0 metformin [Glucophage] 1,000 mg Tablet 1,000 mg PO BID RF: 0 Prilosec OTC 20 mg Tablet,Delayed Release (Dr/Ec) 20 mg PO DAILY RF: 0 glimepiride [Amaryl] 4 MG tablet 4 mg PO DAILY@0800 RF: 0 acetaminophen [Tylenol] 325 MG tablet 2 tab PO Q4H PRN PRNRF: 0 gabapentin 300 mg capsule 300 mg PO HS RF: 0 loratadine 10 mg capsule 10 mg PO DAILY Qty: 10 RF: 0 melatonin 3 mg Tablet 3 mg PO HS PRNRF: 0 magnesium oxide 400 mg Capsule 400 mg PO DAILY RF: 0 cholecalciferol (vitamin D3) [Vitamin D3] 1,000 unit Tablet 1,000 unit PO DAILY RF: 0 Discharge Data Discharge Date/Time-TO BE ENTERED AT DEPARTURE: 03/08/19 15:00 Medical Decision Making Upon my evaluation, this patient had a high probability of imminent or life-threatening deterioration, which required my direct attention, intervention, and personal management. I have personally provided 45 minutes of critical care time exclusive of time spent on separately billable procedures. Time includes review of laboratory data, radiology results, discussion with consultants, and monitoring for potential decompensation. Interventions were performed as documented above. This is a 67-year-old male with a past medical history of subdural hematoma, previous intracranial bleed, previous intracranial surgery, diabetes, hypertension, coronary artery disease, who is not on any blood thinners, was a strong history of chronic recurrent headaches secondary to his surgery and previous intracranial pathologies. He presents today for evaluation of sudden onset difficulty utilizing his right upper and lower extremity. For the last 2 to 3 days he has had a imbalance, multiple falls. However while at his PCPs office today he had an episode of significant weakness and incoordination using his right hand. This was an acute episode. Upon arrival to the ED he had notable dysmetria for the right hand, as well as difficulty with [id number] test utilizing the right hand side. He did have horizontal correction with a small amount of vertical correction for the test of skew. Mild ataxia. Signs and symptoms are notably concerning for cerebellar infarct. CT scan and CT [place] of the head neck were performed and per radiology here and they feel that no evidence of significant acute infarct is noted. Laboratory work-up including EKG and electrolytes and troponin are benign. Because of the patient's history of intracranial hemorrhage and his surgeries in the past he is not a candidate for TPA at this time. I did contact [facility] and discussed the case with Dr Xochilt hernandez who reviewed the images herself, she thought perhaps it was a mild evidence of infarct on the mid Dula. I did reevaluate this with our radiology and they still feel that this is secondary to artifact and that the patient does clearly need an MRI. However regardless of CT scan findings the patient signs and symptoms are certainly clinically concerning for cerebellar infarct. [facility] is full and unable to accept patients at this time. They did recommend calling the [facility] for transfer. Did contact [facility] and discussed the case with of neurology, and she agrees with the assessment and plan. She and [facility] neurology both recommend giving aspirin but recommend holding off on heparinization or TPA. Family has agreed to go to the [facility], the patient will be transferred to [facility] for further management. I also reviewed the case with Dr. Ward in the ED whom neurology recommends we transfer the patient to [facility] for their E evaluation in the ED, and he agrees with the current assessment plan. I have extensively reviewed the treatment plan with the patient. I have addressed all patient concerns at this time. I have also discussed the plan with the admitting physician and they agree with the current assessment and plan and have agreed to assume responsibility for the patient. All parties demonstrate verbal understanding and agreement with our assessment and plan at this time. At time of transfer the patient was reassessed and continued to demonstrate current medical stability. No signs of acute respiratory distress requiring intubation, hemodynamic instability requiring pressor support, or rapidly declining mental status. The patient is stable for transport. EKG 10: 54 Rate 84, intervals normal, normal sinus rhythm, diffuse flattening of T waves in V3 through V6, no significant ST elevations or depressions. No Q waves. No evidence of STEMI HPI General Date/Time Provider Initiated Documentation: 03/08/19 10:45. HPI Narrative: This is a 67-year-old male with a past medical history of subdural hematoma, previous intracranial bleed, previous intracranial surgery, diabetes, hypertension, coronary artery disease, who is not on any blood thinners, was a strong history of chronic recurrent headaches secondary to his surgery and previous intracranial pathologies. He presents today for evaluation of weakness. The patient and his state that over the last 2 or 3 days he has been dizzy, had multiple falls, has had difficulty with his balance. However while he was at his primary care's office today he noticed an acute episode of weakness and discoordination with his right leg and right hand. His PCP noted a slightly elevated blood sugar and otherwise benign vital signs. The patient was immediately transferred to the ER for further evaluation. The patient currently denies any headache whatsoever but does admit to mild symptoms of dizziness, subjective weakness on the right side, and feelings of imbalance. He denies any chest pain, shortness of breath, nausea, vomiting, diarrhea, visual changes. He denies any previous episode of symptoms like this. He denies any ringing in his ears. He denies any other complaints at this time. He denies any modifying factors. Related Data Home Medications Medication Instructions Recorded Confirmed allopurinol 300 mg PO DAILY 01/24/13 03/08/19 levothyroxine 50 mcg PO DAILY@0730 01/24/13 03/08/19 quetiapine [Seroquel] 300 mg PO HS 01/24/13 03/08/19 glimepiride [Amaryl] 4 mg PO DAILY@0800 01/11/17 03/08/19 rosuvastatin [Crestor] 20 mg PO HS 03/22/17 03/08/19 docusate sodium [Dulcolax Stool 100 mg PO DAILY PRN 04/08/17 03/08/19 Softener (dss)] nitroglycerin [Nitrostat] 0.4 mg SUBLINGUAL as directed 04/08/17 03/08/19 polyethylene glycol 3350 [Miralax] 17 g PO DAILY PRN #255 gm 04/08/17 03/08/19 acetaminophen [Tylenol] 2 tab PO Q4H PRN PRN tab 05/24/17 03/08/19 Levemir FlexTouch U-100 Insuln 100 units SUBCUT BID 08/04/17 03/08/19 lisinopril 20 mg PO DAILY tab-cap 11/25/17 03/08/19 carvedilol 25 mg PO BID #120 tab-cap 02/07/18 03/08/19 gabapentin 300 mg capsule 300 mg PO HS cap 07/27/18 03/08/19 topiramate 25 mg sprinkle capsule 50 mg PO DAILY cap 08/01/18 01/10/19 loratadine 10 mg PO DAILY #10 cap 09/04/18 03/08/19 magnesium oxide 400 mg PO DAILY 09/04/18 03/08/19 melatonin 3 mg PO HS PRN 09/04/18 03/08/19 cholecalciferol (vitamin D3) 1,000 unit PO DAILY 11/11/18 03/08/19 [Vitamin D3] acetylcysteine 600 mg capsule 600 mg PO BID 12/12/18 03/08/19 albuterol sulfate 90 mcg/actuation 2 puff IH Q6H PRN 12/12/18 03/08/19 aerosol inhaler gabapentin 100 mg capsule 100 mg PO QHS 12/12/18 01/10/19 ipratropium bromide 0.03 % nasal 2 spray DAPHNE BID 12/12/18 03/08/19 spray riboflavin (vitamin B2) 100 mg 400 mg PO BID tab 12/12/18 03/08/19 tablet citalopram 10 mg PO DAILY 03/08/19 03/08/19 metformin [Glucophage] 1,000 mg PO BID 03/08/19 03/08/19 omeprazole magnesium [Prilosec OTC] 20 mg PO DAILY 03/08/19 03/08/19 Previous Rx's Medication Instructions Recorded acetaminophen [Tylenol] 2 tab PO Q4H PRN PRN tab 05/24/17 carvedilol 25 mg PO BID #120 tab-cap 02/07/18 loratadine 10 mg PO DAILY #10 cap 09/04/18 Allergies Allergy/AdvReac Type Severity Reaction Status Date / Time amoxicillin Allergy Severe breathing Unverified 01/10/19 11:16 difficuty and vomiting Penicillins Allergy Skin Rash Unverified 01/10/19 11:16 sulfamethoxazole Allergy Skin Rash Unverified 01/10/19 11:16 [From Bactrim] trimethoprim [From Bactrim] Allergy Skin Rash Unverified 01/10/19 11:16 oxycodone HCl [From Percocet] AdvReac Severe Contraindic Unverified 01/10/19 11:16 ated oxycodone terephthalate AdvReac Severe Contraindic Unverified 01/10/19 11:16 [From Percodan] ated General Stated Complaint: CVA/TIA MADELIN: 2 Review of Systems Review of Systems ROS Unobtainable: All systems reviewed & are unremarkable except as noted in HPI and below PFSH Social History Smoking/Tobacco Use Status: Never Alcohol Intake: never Drug use: Never Substance use type: does not use Household members: spouse Housing: house Pets and animals: Yes Pets and animals: dog(s) Do you feel safe at home: Yes Do you feel safe in your relationship?: Yes Exam Narrative Exam Narrative: 1.Const: Well-nourished, Well-developed, appearing stated age 2.Eyes: PERRL, no conjunctival injection, and symmetrical lids. Please see neuro exam for complete evaluation 3.ENT: Atraumatic external nose and ears. Moist MM. Neck: Symmetric, trachea midline, No thyromegaly. 4.CVS: +S1/S2, No murmurs or gallops. Peripheral pulses 2+ and equal in all extremities. Brisk capillary refill in all extremities. 5.RESP: Unlabored respiratory effort. Clear to auscultation bilaterally. No wheezes rales or rhonchi 6.GI: Soft, Nontender/Nondistended, No hepatosplenomegaly. No guarding or rebound. 7.MSK: Normocephalic/Atraumatic, Extremities w/o deformity or ttp No cyanosis or clubbing 8.Skin: Warm, Dry. No rashes or lesions. 9.Neuro: health outreach worker II-XII grossly intact. Sensation grossly intact All 6 cardinal planes of vision are fully intact. No evidence of significant rotatory or vertical nystagmus. The patient demonstrated altered movement with his right hand, he has notable dysmetria on the right hand. There was no evidence of dysdiadochokinesia. Patient was able to ambulate with mild difficulty. There was no wide-based gait. [id number] utilizing the right lower extremity for movement demonstrates abnormality and difficulty when compared to left sided [id number]. Sensation was intact bilaterally as well as muscle strength bilaterally for all extremities. Patient was able to verbalize butter cup with no slurring, or miss pronunciation. The patient demonstrates an abnormal hints exam. No vertical nystagmus. The head impulse test is negative for any significant change. Test of skew demonstrates mild horizontal correction, minimal vertical correction for both eyes. Patient is able to hold bilateral arms up for 5 seconds and there is no pronator drift, patient also holds legs up for 10 seconds bilaterally without any drop, sensation intact to light touch in hands and feet bilaterally. Visual moraes intact peripherally. Normal speech pattern and verbal understanding. 10.Psych: (AAO) x3. Appropriate mood and affect Course Vital Signs Vital signs: Vital Signs Temperature 36.8 C 03/08/19 10:49 Pulse 92 H 03/08/19 10:49 Respiratory Rate 18 03/08/19 10:49 Pulse Oximetry 96 03/08/19 10:49 Temperature 36.8 C 03/08/19 10:49 Temperature Source Skin 03/08/19 10:49 Pulse 92 H 03/08/19 10:49 Respiratory Rate 18 03/08/19 10:49 Pulse Oximetry 96 03/08/19 10:49 Oxygen Delivery Method Room Air 03/08/19 10:49 Oxygen Flow Rate 0 03/08/19 10:49
--- NOTE | 2019-03-08 11:28 | NUR.NOTE ---
Nursing Note: pt returned from CT with RN
[2019-03-08] MEDS: Omnipaque 350 MG/ML 100 ML BTL IJ (11:30)
--- NOTE | 2019-03-08 11:31 | DI.CT_ITS ---
EXAM: CT BRAIN NECK CTA CLINICAL HISTORY: Cerebellar stroke-like symptoms. TECHNIQUE: Axial CT angiography was performed with multi-slice acquisition and multi-planar and/or 3 D reconstructions. COMPARISON: CT BRAIN NECK CTA from 03/08/2019 FINDINGS: Atherosclerotic changes involving the carotids are identified and on the right side there is consider able plaque in the region of the bulb and takeoff of the carotid artery. No significant stenosis is seen. A right dominant vertebral is identified. The basilar artery is intact the anterior middle an d posterior cerebral arteries as demonstrated appear unremarkable. 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 The patient is status post right frontal craniotomy. There is no evidence of an intra or extra-axial hemorrhage. There is nothing to suggest a territorial infarct. The ventricles are un remarkable. IMPRESSION: No acute intracranial abnormality is demonstrated. CTA of the neck and brain reveal no evidence of a significant stenosis or an aneurysm
[2019-03-08 11:39] LABS: HCO3 (Venous) 19 mmol/L (22-28); O2 Sat (Venous) 95 % (70-80); TCO2 (Venous) 18 mmol/L (22-29); pCO2 (Venous) 36 mm/Hg (34-47); pH (Venous) 7.33 (7.32-7.43); pO2 (Venous) 73 mm/Hg (28-44)
[2019-03-08 11:40] LABS: BE (Venous) -6.8 mmol/L (-3-3)
[2019-03-08 11:46] LABS: HCT 36.7 % (40.0-50.0); Mean Corp. HGB Concentration 32.7 g/dL (32.0-36.0); Mean Corpuscular Hemoglobin 25.3 pg (27.0-33.0); Mean Corpuscular Volume 77.3 fL (80-95); Mean Platelet Volume 9.4 fL (8.0-11.0); Platelet Count 217 x1000/uL (130-400); RBC 4.75 m/cumm (4.50-6.00); RBC Distribution Width 16.5 % (11.8-14.1)
[2019-03-08 11:52] LABS: Ammonia 42 umol/L (11-32)
[2019-03-08 11:54] LABS: Absolute Eosinophil Count 0.05 k/cumm (0.0-0.7); Absolute Lymphocyte Count 1.09 k/cumm (1.2-3.4); Absolute Monocyte Count 0.42 k/cumm (0.11-0.7); Absolute Neutrophil Count 3.64 k/cumm (1.2-6.7); Atypical Lymphocytes % 2
[2019-03-08 11:55] LABS: Anisocytosis 1+; Diff Comment Manual Differential; Hypochromasia 2+; Microcytosis 2+; Polychromasia Present
[2019-03-08 11:57] LABS: ALT 24 U/L (16-63); AST 12 U/L (15-37); Albumin 3.7 g/dL (3.4-5.0); Alkaline Phosphatase 91 U/L (46-116); Anion Gap 14.5 mmol/L (3-11); BUN 12 mg/dL (7-18); Bilirubin, Total 0.2 mg/dL (0.2-1.0); CO2 21.5 mmol/L (21.0-32.0); CREATININE 1.17 mg/dL (0.70-1.30); Calcium 8.9 mg/dL (8.5-10.1); Chloride 104 mmol/L (98-107); Glucose 269 mg/dL (70-100); Prothrombin Time 9.8 sec (9.3-11.0); Sodium 140 mmol/L (136-145); Total Protein 7.2 g/dL (6.4-8.2)
[2019-03-08 12:08] LABS: TSH (W/Ref FT4) 2.22 uIU/mL (0.36-3.74)
[2019-03-08 12:10] LABS: Troponin I < 0.05 ng/mL (0.00-0.06)
[2019-03-08 13:13] LABS: Bilirubin Negative (Negative); Blood Negative (Negative); Clarity Clear (Clear); Glucose Negative (Negative); Ketones Negative (Negative); Leukocyte Esterase Trace (Negative); Nitrite Negative (Negative); Urobilinogen 0.2 EU/dL (Up TO 0.2)
[2019-03-08 13:31] LABS: Bacteria Moderate HPF (Negative); Casts Negative LPF (Negative); Crystals Negative HPF (Negative); Epithelial Cells Rare HPF (Negative); Mucus Negative (Negative); Other Cells Negative (Negative); RBC 0-2 (0-2)
[2019-03-08 13:32] LABS: C & S Indicated? Yes
[2019-03-08] MEDS: Normal Saline 500 ML 1000 ML IV (13:45)
[2019-03-08] MEDS: Aspirin 325 MG TAB PO (14:33)
--- NOTE | 2019-03-08 14:46 | NUR.NOTE ---
Nursing Note: [facility] at bedside to transport patient to [facility]
--- NOTE | 2019-03-08 16:32 | NUR.NOTE ---
Nursing Note: Report given to Gerard LANGSTON at [facility]
== END 2019-03-08 15:00 | disposition short-term general hospital (02) ==
PROVIDERS: Emergency Provider Student in an Organized Health Care Education/Training Program; PCP Family Medicine
DX: I63.9 Cerebral infarction, unspecified (principal); R42 Dizziness and giddiness; R20.2 Paresthesia of skin; R27.8 Other lack of coordination; G81.91 Hemiplegia, unspecified affecting right dominant side; E11.9 Type 2 diabetes mellitus without complications; Z79.84 Long term (current) use of oral hypoglycemic drugs; I10 Essential (primary) hypertension
CPT/HCPCS: 36415; 70496; 70498; 80053; 82805; 93005; 99291; 71045; 81003; 81015; 82140; 84443; 84484; 85025; 85610; 85730; 87086; 93010; J3490

== ENCOUNTER 2019-03-12 13:58 | Emergency (ER) | payer MEDICARE, OTHER, SELFPAY ==
[2019-03-12] VITALS (36 sets, daily range): BP systolic 139–171; BP diastolic 68–89; PULSE 77–83; RESP 15–30; TEMP 36.7; O2SAT 98–100
--- NOTE | 2019-03-12 14:40 | DI.CT_ITS ---
EXAM: CT HEAD WO CLINICAL HISTORY: R arm/leg weakness, r/o acute cva. TECHNIQUE: COMPARISON: HEAD WO/W ORBITS WITH from 06/13/2016 HEAD WITHOUT CONTRAST from 12/27/2017 CT BRAIN NECK CTA from 03/08/2019 FINDINGS: Noncontrast cranial CT was performed. Note is again made of left frontal encephalomalacia versus desirae chnoid cyst. The pituitary appears enlarged at 14 x 12 by 11 millimeters. Additional evaluation wit h pituitary MRI may be considered if clinically indicated. No evidence of intracranial hemorrhage mass effect or midline shift. IMPRESSION: No evidence of acute process. Pituitary enlargement noted, probably stable from prior examinations. Additional evaluation with pituitary MRI may be considered if clinically indicated
--- NOTE | 2019-03-12 14:42 | W.ED.GENAD ---
Discharge Plan Disposition Patient Disposition: HOME Condition: Improving Discharge Details Chief Complaint: CVA/TIA Clinical Impression: Paresthesia of right arm and leg Primary Care Provider: Alisa Ramirez ED Provider: Apple Enriquez Home Meds and New Rx's Prescriptions: Continued gabapentin 100 mg capsule 100 mg PO QHS RF: 0 albuterol sulfate [Ventolin HFA] 90 mcg/actuation HFA aerosol inhaler 2 puff IH Q6H PRNRF: 0 acetylcysteine [NAC] 600 mg capsule 600 mg PO BID RF: 0 ipratropium bromide 0.03 % spray,non-aerosol 2 spray DAPHNE BID RF: 0 polyethylene glycol 3350 [Miralax] 17 GM powder in packet 17 g PO DAILY PRNQty: 255 RF: 0 nitroglycerin [Nitrostat] 0.4 MG tablet, sublingual 0.4 mg Sublingual as directed RF: 0 docusate sodium [Dulcolax Stool Softener (dss)] 100 MG capsule 100 mg PO DAILY PRNRF: 0 Levemir FlexTouch U-100 Insuln 100 UNIT/1 ML insulin pen 100 units subcut BID RF: 0 lisinopril 20 MG tablet 20 mg PO DAILY RF: 0 carvedilol 25 MG tablet 25 mg PO BID Qty: 120 RF: 4 topiramate [Topamax] 25 mg capsule, sprinkle 50 mg PO DAILY RF: 0 riboflavin (vitamin B2) [Vitamin B-2] 100 mg tablet 400 mg PO BID RF: 0 levothyroxine 50 MCG tablet 50 mcg PO DAILY@0730 RF: 0 allopurinol 300 MG tablet 300 mg PO DAILY RF: 0 quetiapine [Seroquel] 300 MG tablet 300 mg PO HS RF: 0 rosuvastatin [Crestor] 20 MG tablet 20 mg PO HS RF: 0 citalopram 10 mg Tablet 10 mg PO DAILY RF: 0 metformin [Glucophage] 1,000 mg Tablet 1,000 mg PO BID RF: 0 Prilosec OTC 20 mg Tablet,Delayed Release (Dr/Ec) 20 mg PO DAILY RF: 0 glimepiride [Amaryl] 4 MG tablet 4 mg PO DAILY@0800 RF: 0 acetaminophen [Tylenol] 325 MG tablet 2 tab PO Q4H PRN PRNRF: 0 gabapentin 300 mg capsule 300 mg PO HS RF: 0 loratadine 10 mg capsule 10 mg PO DAILY Qty: 10 RF: 0 melatonin 3 mg Tablet 3 mg PO HS PRNRF: 0 magnesium oxide 400 mg Capsule 400 mg PO DAILY RF: 0 cholecalciferol (vitamin D3) [Vitamin D3] 1,000 unit Tablet 1,000 unit PO DAILY RF: 0 aspirin 81 mg Tablet,Chewable 81 mg PO DAILY RF: 0 Discharge Instructions Instructions: Paresthesia (ED) Additional Instructions: Follow-up with your scheduled appointment with your primary care doctor next week for reevaluation and for referral for repeat outpatient MRI of your brain and for referral for outpatient MRI cervical spine for further evaluation of your degenerative changes in your neck. Return immediately to the emergency department if you develop any worsening or new concerning symptoms. Discharge Data Discharge Date/Time-TO BE ENTERED AT DEPARTURE: 03/12/19 19:20 Discharge Physician: Apple Enriquez Medical Decision Making 68-year-old male with history of subdural hematoma, coronary artery disease, diabetes, GERD, previous alcohol abuse, hypertension, hyperlipidemia here with right arm and leg weakness since last night and right-sided headache since 1130 this morning. He was seen here a few days ago for the same complaint and was transferred to [facility] for possible CVA. He had had negative CTA head and neck at that time. He has 4/5 muscle strength right upper and lower extremities, and 5/5 muscle strength left upper and lower extremities. Some difficulty with cranial nerves but no asymmetry noted. Vitals within normal limits. EKG notes a rate of 78, sinus with no acute ST elevation or depression. Differential diagnosis includes acute CVA, TIA, electrolyte abnormality, arrhythmia, musculoskeletal etiology. Will place an IV, check screening labs, and send for stat CT head and chest x-ray. Patient is outside of the window for TPA. Labs and imaging reviewed. Normal white blood cell count and electrolytes. Glucose 328 but with normal anion gap. Troponin negative. CT head negative. Chest x-ray negative for acute findings. 1649 --Case discussed with [facility] neurosurgery -states that patient had right arm pain at [facility] and agrees with plan for CT cervical spine for further assessment. As patient has had intermittent right arm and leg numbness and weakness which is not any worse, do not see any indication for further MR imaging at this time. States that the symptoms could be due to previous subdural hematoma. 1849 --CT cervical spine notes cervical degenerative disc disease. Patient feels better after Toradol here. He states his right arm and leg numbness and weakness is improving. Patient states he feels good to go home. He is advised to follow-up with his scheduled appointment with his primary care doctor for re-evaluation and to return here at any time if worse. Medical Records Medical records reviewed: Yes I reviewed the patient's medical records. Imaging Data Radiologic Study: Radiologist's impression: CT HEAD WO CLINICAL HISTORY: R arm/leg weakness, r/o acute cva. TECHNIQUE: COMPARISON: HEAD WO/W ORBITS WITH from 06/13/2016 HEAD WITHOUT CONTRAST from 12/27/2017 CT BRAIN NECK CTA from 03/08/2019 FINDINGS: Noncontrast cranial CT was performed. Note is again made of left frontal encephalomalacia versus arachnoid cyst. The pituitary appears enlarged at 14 x 12 by 11 millimeters. Additional evaluation with pituitary MRI may be considered if clinically indicated. No evidence of intracranial hemorrhage mass effect or midline shift. IMPRESSION: No evidence of acute process. Pituitary enlargement noted, probably stable from prior examinations. Additional evaluation with pituitary MRI may be considered if clinically indicated. XR chest 2V PA & lateral INDICATION: stroke like sx, r/o acute disease. COMPARISON: XR CHEST 1V IN DI DEPT from 03/08/2019 TECHNIQUE: 2D digital imaging was performed. FINDINGS: The heart is not enlarged. Note is made of prior CABG surgery. Lungs are grossly clear. No pleural effusion. IMPRESSION: No evidence of acute process. CT Head Without Contrast Exam date and time: 03/12/2019 3:16 PM Clinical history: 68 years old, male; Other: R arm/leg weakness, R/O acute CVA TECHNIQUE: Imaging protocol: Computed tomography of the head without contrast. Radiation optimization: All CT scans at this facility use at least one of these dose optimization techniques: automated exposure control; mA and/or kV adjustment per patient size (includes targeted exams where dose is matched to clinical indication); or iterative reconstruction. COMPARISON: CT Head^HEAD ROUTINE (Adult) 09/14/2018 12:53 PM FINDINGS: Brain: Ventricles, sulci are unchanged when compared with the patient's prior exam. As previously noted there are findings consistent with an arachnoid cyst adjacent to the anterior left frontal lobe. As measured on the sagittal reformatted images superior to inferior extent is approximately 4.5 cm. There is mild mass effect on the subjacent left frontal lobe also previously noted. There is minimal rightward subfalcine shift, stable. No new extra-axial collections are identified. There is no new hemorrhage, mass or progressive shift. There is no evidence of a new cortical, major vascular territory infarct. Ventricles: Ventricular size is stable Bones/joints: There is no new or acute bony abnormality. There is an old right frontal jaylin hole. Sinuses: There is no new sinus opacification or fluid level. There is mild sinus mucoperiosteal thickening. Mastoid air cells: No significant mastoid opacification Orbits: Patient has had prior lens replacement. Soft tissues: Subcutaneous soft tissues are unremarkable Vasculature: There is mild intracranial vascular calcification. Other findings: Pituitary gland appears mildly prominent in size.. Superior to inferior extent is approximately 10 mm with a superior convex margin. This is stable when compared with the patient's prior exam IMPRESSION: Stable left frontal arachnoid cyst. No new acute or progressive intracranial abnormality. If further evaluation for recent, acute or subacute ischemic change is indicated, MR correlation is suggested. CT CERVICAL SPINE WO CLINICAL HISTORY: R arm pain, weak/numb, r/o acute process. TECHNIQUE: The exam was performed according to the usual protocol without contrast enhancement. FINDINGS: There is mild scoliosis convexity to the left at the cervicothoracic junction. Alignment is otherwise unremarkable. There is no evidence of an acute fracture involving the cervical spine. Multilevel disc space narrowing is identified. There are disc osteophyte complexes, spondylolytic changes of the endplates, mild uncovertebral facet joint arthropathy demonstrated. Degenerative changes leads to narrowing of the canal at the level of the disc interspaces, most prominent at C3-C4. Degenerative changes also lead to foraminal narrowing, most prominent on the left side at C3-C4 and C5-C6. The soft tissues are unremarkable. Lung apices appear normal. Vascular calcification is noted in both carotid bifurcations. IMPRESSION: No evidence of an acute fracture or subluxation. Degenerative changes as noted above. Lab Data Lab results reviewed: Yes I reviewed the patient's lab results. Labs: Laboratory Tests Range/Units 03/12/19 03/12/19 14:54 14:54 WBC (4.4-10.8) k/cumm 5.55 RBC (4.50-6.00) m/cumm 4.50 Hgb (13.5-17.5) g/dL 11.6 L Hct (40.0-50.0) % 35.0 L MCV (80-95) fL 77.8 L MCH (27.0-33.0) pg 25.8 L MCHC (32.0-36.0) g/dL 33.1 RDW (11.8-14.1) % 16.4 H Plt Count (130-400) x1000/uL 208 MPV (8.0-11.0) fL 8.9 Immature Gran % 0.4 Neutrophils % 67.4 Lymphocytes % 16.9 Monocytes % 9.0 Eosinophils % 4.9 Basophils % 1.4 Absolute Neutrophils (1.2-6.7) k/cumm 3.74 Absolute Lymphocytes (1.2-3.4) k/cumm 0.94 L Absolute Monocytes (0.11-0.7) k/cumm 0.50 Absolute Eosinophils (0.0-0.7) k/cumm 0.27 Absolute Basophils (0.0-0.2) k/cumm 0.08 Sodium (136-145) mmol/L 137 Potassium (3.5-5.1) mmol/L 4.3 Chloride (98-107) mmol/L 106 Carbon Dioxide (21.0-32.0) mmol/L 20.9 L Anion Gap (3-11) mmol/L 10.1 BUN (7-18) mg/dL 14 Creatinine (0.70-1.30) mg/dL 1.24 Estimated GFR/1.73 m2 (mL/min/1.73m2) 57.80 Glucose (70-100) mg/dL 328 H Calcium (8.5-10.1) mg/dL 8.2 L Magnesium (1.8-2.4) mg/dL 2.2 Total Bilirubin (0.2-1.0) mg/dL 0.3 AST (15-37) U/L 16 ALT (16-63) U/L 26 Alkaline Phosphatase (46-116) U/L 86 Troponin I (0.00-0.06) ng/mL < 0.05 Total Protein (6.4-8.2) g/dL 7.1 Albumin (3.4-5.0) g/dL 3.6 ECG Data Attestation: I personally reviewed and interpreted this ECG (s) as follows: Interpretation: Rate of 78, sinus, T wave inversion in 1, 2, aVF, V2 through V6. [address] depression in lead II. No acute ST elevation. AR 104. QTc 442. QRS 94. HPI General Mode of arrival: ambulatory. Date/Time Provider Initiated Documentation: 03/12/19 14:02. Limitations to Documentation: no limitations. Information obtained by: patient. HPI Narrative: Patient is a 68-year-old male with a history of coronary artery disease, diabetes, GERD, gout, alcohol abuse, hypothyroidism, hypertension, hyperlipidemia is presented right arm and leg weakness since last evening right-sided headache since 11:30 AM. Patient was seen here 4 days ago for the same complaint and had negative CTA head and neck but was transferred to [facility] due to his concerning symptoms for CVA. states that patient had an MRI of his brain which noted a spot on his pituitary which she was advised to follow-up for repeat imaging and with his primary care doctor with whom he has an appointment on March 20. He denies any chest pain, shortness of breath, dizziness. Related Data Home Medications Medication Instructions Recorded Confirmed allopurinol 300 mg PO DAILY 01/24/13 03/12/19 levothyroxine 50 mcg PO DAILY@0730 01/24/13 03/12/19 quetiapine [Seroquel] 300 mg PO HS 01/24/13 03/12/19 glimepiride [Amaryl] 4 mg PO DAILY@0800 01/11/17 03/12/19 rosuvastatin [Crestor] 20 mg PO HS 03/22/17 03/12/19 docusate sodium [Dulcolax Stool 100 mg PO DAILY PRN 04/08/17 03/12/19 Softener (dss)] nitroglycerin [Nitrostat] 0.4 mg SUBLINGUAL as directed 04/08/17 03/12/19 polyethylene glycol 3350 [Miralax] 17 g PO DAILY PRN #255 gm 04/08/17 03/12/19 acetaminophen [Tylenol] 2 tab PO Q4H PRN PRN tab 05/24/17 03/12/19 Levemir FlexTouch U-100 Insuln 100 units SUBCUT BID 08/04/17 03/12/19 lisinopril 20 mg PO DAILY tab-cap 11/25/17 03/12/19 carvedilol 25 mg PO BID #120 tab-cap 02/07/18 03/12/19 gabapentin 300 mg capsule 300 mg PO HS cap 07/27/18 03/12/19 topiramate 25 mg sprinkle capsule 50 mg PO DAILY cap 08/01/18 03/12/19 loratadine 10 mg PO DAILY #10 cap 09/04/18 03/12/19 magnesium oxide 400 mg PO DAILY 09/04/18 03/12/19 melatonin 3 mg PO HS PRN 09/04/18 03/12/19 cholecalciferol (vitamin D3) 1,000 unit PO DAILY 11/11/18 03/12/19 [Vitamin D3] acetylcysteine 600 mg capsule 600 mg PO BID 12/12/18 03/12/19 albuterol sulfate 90 mcg/actuation 2 puff IH Q6H PRN 12/12/18 03/12/19 aerosol inhaler gabapentin 100 mg capsule 100 mg PO QHS 12/12/18 03/12/19 ipratropium bromide 0.03 % nasal 2 spray DAPHNE BID 12/12/18 03/12/19 spray riboflavin (vitamin B2) 100 mg 400 mg PO BID tab 12/12/18 03/12/19 tablet Prilosec OTC 20 mg PO DAILY 03/08/19 03/12/19 citalopram 10 mg PO DAILY 03/08/19 03/12/19 metformin [Glucophage] 1,000 mg PO BID 03/08/19 03/12/19 aspirin 81 mg PO DAILY 03/12/19 03/12/19 Previous Rx's Medication Instructions Recorded acetaminophen [Tylenol] 2 tab PO Q4H PRN PRN tab 05/24/17 carvedilol 25 mg PO BID #120 tab-cap 02/07/18 loratadine 10 mg PO DAILY #10 cap 09/04/18 Allergies Allergy/AdvReac Type Severity Reaction Status Date / Time amoxicillin Allergy Severe breathing Unverified 03/12/19 14:09 difficuty and vomiting Penicillins Allergy Skin Rash Unverified 03/12/19 14:09 sulfamethoxazole Allergy Skin Rash Unverified 03/12/19 14:09 [From Bactrim] trimethoprim [From Bactrim] Allergy Skin Rash Unverified 03/12/19 14:09 oxycodone HCl [From Percocet] AdvReac Severe Contraindic Unverified 03/12/19 14:09 ated oxycodone terephthalate AdvReac Severe Contraindic Unverified 03/12/19 14:09 [From Percodan] ated General Stated Complaint: CVA/TIA MADELIN: 3 Review of Systems Review of Systems ROS Unobtainable: All systems reviewed & are unremarkable except as noted in HPI and below Constitutional Constitutional: Reports as per HPI, Denies chills, Denies fever(s) and Reports headache(s) Eyes Eyes: Denies blurry vision ENT Ears, Nose, Mouth, and Throat: Denies dizziness, Reports headache(s), Denies sore throat and Denies throat swelling Cardiovascular Cardiovascular: Denies chest pain and Denies dyspnea Respiratory Respiratory: Denies cough and Denies dyspnea Gastrointestinal Gastrointestinal: Denies abdominal pain, Denies diarrhea and Denies vomiting Genitourinary Genitourinary: Denies hematuria and Denies dysuria Musculoskeletal Musculoskeletal: Denies back pain and Reports numbness Integumentary/Breasts Skin/Breast: Denies lesions and Denies rash Neurologic Neurologic: Denies dizziness, Reports headache(s), Reports focal weakness and Reports numbness Allergic/Immunologic Allergic/Immunologic: Denies throat swelling [facility] Medical History (Updated 03/15/19 @ 09:16 by Hemalatha Preston) CAD (coronary artery disease) Chronic low back pain Colon polyps Depression Diastasis recti DM type 2 (diabetes mellitus, type 2) Fatty liver GERD (gastroesophageal reflux disease) Gout H/O alcohol abuse Headaches due to 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 Hx of deep venous thrombosis Hyperlipidemia Hypertension Hypothyroidism MRSA infection Obstructive sleep apnea Pituitary abnormality (Acute) Right sided weakness (Acute) Urethral stricture Vitamin D deficiency Surgical History Appendectomy (06/01/16) Colonoscopy - MAC 2009-5year f/u 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 electroconvulsive therapy Extraction of cataract facial lesion removal Repair of inguinal hernia (08/05/17) right inguinal hernia repair by Dr Arroyo on 08/05/17 Repair of umbilical hernia Social History Smoking/Tobacco Use Status: Never Alcohol Intake: never Drug use: Never Substance use type: does not use Household members: spouse Housing: house Pets and animals: Yes Pets and animals: dog(s) Do you feel safe at home: Yes Do you feel safe in your relationship?: Yes Exam Const General: cooperative and no acute distress HENMT Head: normal to inspection Face and sinus: normal facial exam Eyes General: appearance normal, both eyes and all related structures Pupils: PERRL EOM: EOM intact bilaterally Neck Neck: normal visual inspection and No submandibular swelling Lymphatic: no lymphadenopathy noted Chest Chest: normal inspection of the chest and no tenderness Resp Effort & Inspection: normal respiratory effort and able to speak in complete sentences Auscultation: clear to auscultation bilaterally Cardio Rate: regular rate Rhythm: regular rhythm GI Inspection: normal to inspection Palpation: soft, not firm, not rigid and nontender Auscultation: normal bowel sounds Skin General skin exam: no rashes or lesions noted Neuro General: alert, awake and oriented x3 Cognition: normal cognition Speech: speech normal Motor: muscle tone normal throughout Sensory Exam: no sensory deficits noted Other: Patient has difficulty with cranial nerve V with Extrem General: normal to inspection, full ROM, normal capillary refill, no calf tenderness bilaterally and no edema Psych Appearance: grossly normal Mental Status: mental status grossly normal Speech and Movement: speech and movement normal Affect: normal affect Course Vital Signs Vital signs: Vital Signs Temperature 98.1 F 03/12/19 14:04 Pulse 79 03/12/19 14:04 Respiratory Rate 21 03/12/19 14:04 Blood Pressure 144/80 H 03/12/19 14:04 Pulse Oximetry 99 03/12/19 14:04 Temperature 98.1 F 03/12/19 14:04 Temperature Source Skin 03/12/19 14:04 Pulse 79 03/12/19 14:04 Respiratory Rate 21 03/12/19 14:04 Respiratory Effort Short of Breath 03/12/19 14:10 Blood Pressure 144/80 H 03/12/19 14:04 Pulse Oximetry 99 03/12/19 14:04 Pain Level 8 03/12/19 14:04
[2019-03-12 15:02] LABS: Abs Immature Grans 0.02 k/cumm (0.0-0.09); Absolute Basophil Count 0.08 k/cumm (0.0-0.2); Absolute Eosinophil Count 0.27 k/cumm (0.0-0.7); Absolute Lymphocyte Count 0.94 k/cumm (1.2-3.4); Absolute Neutrophil Count 3.74 k/cumm (1.2-6.7); Basophils % 1.4; Eosinophils % 4.9; HGB 11.6 g/dL (13.5-17.5); Immature Grans % 0.4; Lymphocytes % 16.9; Mean Corp. HGB Concentration 33.1 g/dL (32.0-36.0); Mean Corpuscular Hemoglobin 25.8 pg (27.0-33.0); Mean Corpuscular Volume 77.8 fL (80-95); Mean Platelet Volume 8.9 fL (8.0-11.0); Neutrophils % 67.4; Platelet Count 208 x1000/uL (130-400); RBC Distribution Width 16.4 % (11.8-14.1); White Blood Cell Count 5.55 k/cumm (4.4-10.8)
--- NOTE | 2019-03-12 15:20 | DI.RAD_ITS ---
EXAM: XR CHEST 2V PA LATERAL INDICATION: stroke like sx, r/o acute disease. COMPARISON: XR CHEST 1V IN DI DEPT from 03/08/2019 TECHNIQUE: 2D digital imaging was performed. FINDINGS: The heart is not enlarged. Note is made of prior CABG surgery. Lungs are grossly clear. No pleural effusion. IMPRESSION: No evidence of acute process
[2019-03-12 15:22] LABS: ALT 26 U/L (16-63); AST 16 U/L (15-37); Albumin 3.6 g/dL (3.4-5.0); Alkaline Phosphatase 86 U/L (46-116); Anion Gap 10.1 mmol/L (3-11); BUN 14 mg/dL (7-18); Bilirubin, Total 0.3 mg/dL (0.2-1.0); CO2 20.9 mmol/L (21.0-32.0); CREATININE 1.24 mg/dL (0.70-1.30); Calcium 8.2 mg/dL (8.5-10.1); Chloride 106 mmol/L (98-107); Glucose 328 mg/dL (70-100); Magnesium 2.2 mg/dL (1.8-2.4); Potassium 4.3 mmol/L (3.5-5.1); Sodium 137 mmol/L (136-145); Total Protein 7.1 g/dL (6.4-8.2)
[2019-03-12 15:24] LABS: Troponin I < 0.05 ng/mL (0.00-0.06)
--- NOTE | 2019-03-12 16:07 | DI.VRAD_ITS ---
PROCEDURE INFORMATION: Exam: CT Head Without Contrast Exam date and time: 03/12/2019 3:16 PM Clinical history: 68 years old, male; Other: R arm/leg weakness, R/O acute CVA TECHNIQUE: Imaging protocol: Computed tomography of the head without contrast. Radiation optimization: All CT scans at this facility use at least one of these dose optimization techniques: automated exposure control; mA and/or kV adjustment per patient size (includes targeted exams where dose is matched to clinical indication); or iterative reconstruction. COMPARISON: CT Head^HEAD ROUTINE (Adult) 09/14/2018 12:53 PM FINDINGS: Brain: Ventricles, sulci are unchanged when compared with the patient's prior exam. As previously noted there are findings consistent with an arachnoid cyst adjacent to the anterior left frontal lobe. As measured on the sagittal reformatted images superior to inferior extent is approximately 4.5 cm. There is mild mass effect on the subjacent left frontal lobe also previously noted. There is minimal rightward subfalcine shift, stable. No new extra-axial collections are identified. There is no new hemorrhage, mass or progressive shift. There is no evidence of a new cortical, major vascular territory infarct. Ventricles: Ventricular size is stable Bones/joints: There is no new or acute bony abnormality. There is an old right frontal jaylin hole. Sinuses: There is no new sinus opacification or fluid level. There is mild sinus mucoperiosteal thickening. Mastoid air cells: No significant mastoid opacification Orbits: Patient has had prior lens replacement. Soft tissues: Subcutaneous soft tissues are unremarkable Vasculature: There is mild intracranial vascular calcification. Other findings: Pituitary gland appears mildly prominent in size.. Superior to inferior extent is approximately 10 mm with a superior convex margin. This is stable when compared with the patient's prior exam IMPRESSION: Stable left frontal arachnoid cyst. No new acute or progressive intracranial abnormality. If further evaluation for recent, acute or subacute ischemic change is indicated, MR correlation is suggested. Dictated and Authenticated by: Meghan Matias MD. Ordering:RU Chui MD
--- NOTE | 2019-03-12 16:09 | DI.VRAD_ITS ---
PROCEDURE INFORMATION: Exam: XR Chest, 2 Views Exam date and time: 03/12/2019 2:42 PM Clinical history: 68 years old, male; Other: Stroke like SX, R/O acute disease TECHNIQUE: Imaging protocol: XR of the chest Views: 2 views. COMPARISON: CR XR CHEST 1V IN DI DEPT 03/08/2019 11:25 AM FINDINGS: Lungs: There is no new airspace consolidation or overt CHF. Pleural space: Large effusion or pneumothorax is not seen Heart/Mediastinum: Heart, mediastinum are not significantly changed Bones/joints: Patient has had prior median sternotomy. Degenerative changes are seen in the spine. On the lateral film, there is compression deformity in the upper lumbar spine, age indeterminant by plain film exam. IMPRESSION: 1. No new air space consolidation or overt CHF 2. Compression deformity upper lumbar spine age-indeterminate by plain film examination. Dictated and Authenticated by: Meghan Matias MD. Ordering:RU Chiu MD
--- NOTE | 2019-03-12 17:04 | DI.CT_ITS ---
EXAM: CT CERVICAL SPINE WO CLINICAL HISTORY: R arm pain, weak/numb, r/o acute process. TECHNIQUE: The exam was performed according to the usual protocol without contrast enhancement. FINDINGS: There is mild scoliosis convexity to the left at the cervicothoracic junction. Alignment is otherwis e unremarkable. There is no evidence of an acute fracture involving the cervical spine. Multilevel d isc space narrowing is identified. There are disc osteophyte complexes, spondylolytic changes of the endplates, mild uncovertebral facet joint arthropathy demonstrated. Degenerative changes leads to n arrowing of the canal at the level of the disc interspaces, most prominent at C3-C4. Degenerative ch anges also lead to foraminal narrowing, most prominent on the left side at C3-C4 and C5-C6. The soft tissues are unremarkable. Lung apices appear normal. Vascular calcification is noted in both caroti d bifurcations. IMPRESSION: No evidence of an acute fracture or subluxation. Degenerative changes as noted above.
[2019-03-12] MEDS: Ketorolac 30 MG/ML VIAL IVP (17:25)
[2019-03-12] MEDS: Normal Saline Flush 10 ML SYR (17:28)
[2019-03-12 17:55] LABS: INR 1.1 (0.9-1.1); PTT Activated 26.5 sec (21.0-31.4); Prothrombin Time 10.7 sec (9.3-11.0)
--- NOTE | 2019-03-12 18:39 | DI.VRAD_ITS ---
PROCEDURE INFORMATION: Exam: CT Cervical Spine Without Contrast Exam date and time: 03/12/2019 5:51 PM Clinical history: 68 years old, male; Other: R arm pain, weak/numb, R/O acute process TECHNIQUE: Imaging protocol: Computed tomography images of the cervical spine without contrast. Radiation optimization: All CT scans at this facility use at least one of these dose optimization techniques: automated exposure control; mA and/or kV adjustment per patient size (includes targeted exams where dose is matched to clinical indication); or iterative reconstruction. COMPARISON: CR CERVICAL SP. LIMITED (TRAUMA) 01/16/2015 3:57 PM FINDINGS: Vertebrae: There is mild scoliosis convex to the left at the cervicothoracic junction. Alignment is otherwise unremarkable. There is no evidence of an acute fracture in the cervical spine. There is no decrease of vertebral body height. There is no acute or destructive bony abnormality. Discs/Spinal canal/Neural foramina: There is multilevel disc space narrowing in the cervical spine. There are disc osteophyte complexes, spondylitic changes of the endplates, uncovertebral and facet arthropathy. Degenerative changes lead to narrowing of the canal at the level of the disc spaces most prominent at C3-4. Degenerative changes also lead to foraminal narrowing most prominent on the left at C3-4, and C5-6. Soft tissues: There is no evidence of a discrete soft tissue mass in the neck. Lungs: Visualized lung apices are grossly clear Vasculature: Vascular calcification is noted at both carotid bifurcations. IMPRESSION: 1. No acute fracture. 2. Cervical spondylosis, disc disease. Degenerative changes lead to narrowing of the canal, foramina. If further evaluation of the intervertebral discs, canal, cord, foramina is indicated, MR correlation suggested. Dictated and Authenticated by: Meghan Matias MD. Ordering:RU Chiu MD
== END 2019-03-12 19:20 | disposition home or self-care (01) ==
PROVIDERS: Emergency Provider Physician Assistant; PCP Family Medicine
DX: R20.2 Paresthesia of skin (principal); R51 Headache; R53.1 Weakness; I10 Essential (primary) hypertension; E11.9 Type 2 diabetes mellitus without complications; Z79.84 Long term (current) use of oral hypoglycemic drugs
CPT/HCPCS: 36415; 80053; 93005; 96374; 99285; 70450; 71046; 72125; 83735; 84484; 85025; 85610; 85730; 93010; J1885

== ENCOUNTER 2019-03-24 01:26 | Outpatient (CLI) | payer MEDICARE, OTHER, SELFPAY ==
--- NOTE | 2019-03-24 14:33 | DI.MRI_ITS ---
EXAM: MR CERVICAL SPINE WO CLINICAL HISTORY: WEAKNESS RT SIDE, G81.90,INTERMITTENT PARESTHESIAS,NEG CT AND MRA. TECHNIQUE: Multiplanar multisequence MRI was performed. COMPARISON: No exams were available for comparison FINDINGS: No significant bony signal abnormality is identified in the cervical spine. There is loss of disc he ight at C3-4, C4-5 and C5-6. No significant abnormality seen involving visualized portions of the po sterior fossa. Spinal cord shows normal signal throughout. No significant findings at C2-3 At C3-4, there is marked prominence of the disc-osteophyte complex with decreased AP diameter of the spinal canal and mild anterior deformity of the spinal cord without intracord signal abnormality. Th ere is left-sided neural foraminal narrowing also present at C3-4. At C4-5, there is prominence of the disc-osteophyte complex without evidence of impingement on the co rd or significant spinal stenosis. Neural foramina appear fairly well maintained. At C5-6, there is slight prominence of the disc-osteophyte complex, particularly left lateral, and th ere is narrowing of the left neural foramen. No significant findings at C6-C7 or C7-T1. IMPRESSION: Multilevel prominence of the disc-osteophyte complex at C3-4, C4-5 and C5-6 with the most prominent f indings at C3-4, where there is anterior impingement on the spinal cord, mild central canal spinal st enosis, and left-sided neural foraminal narrowing.
== END 2019-03-24 01:46 ==
PROVIDERS: PCP Family Medicine; Visit Provider Family Medicine
DX: G81.90 Hemiplegia, unspecified affecting unspecified side (principal); R20.2 Paresthesia of skin; M25.78 Osteophyte, vertebrae; M99.51 Intervertebral disc stenosis of neural canal of cervical region
CPT/HCPCS: 72141

== ENCOUNTER → 2019-03-28 12:58 | Outpatient (BNVA) | payer MEDICARE, OTHER, SELFPAY | PROVIDERS: PCP Family Medicine; Referring Provider Family Medicine; Visit Provider Psychiatry & Neurology Neurology | DX: G56.21 Lesion of ulnar nerve, right upper limb (principal); R29.898 Other symptoms and signs involving the musculoskeletal system; M54.2 Cervicalgia; E23.7 Disorder of pituitary gland, unspecified | CPT/HCPCS: 95908; 99215 ==

== ENCOUNTER 2019-04-21 18:48 | Inpatient (IN) | payer MEDICARE, OTHER, SELFPAY ==
[2019-04-21] VITALS (48 sets, daily range): BP systolic 124–171; BP diastolic 67–89; PULSE 73–89; RESP 16–26; TEMP 37.2; O2SAT 93–100
[2019-04-21] MEDS: Aspirin 81 MG CHEW 324 MG CH (19:43)
--- NOTE | 2019-04-21 19:53 | W.ED.GENAD ---
Discharge Plan Disposition Patient Disposition: [facility] INPATIENT Condition: Stable Discharge Details Chief Complaint: Chest Pain Clinical Impression: Chest pain Primary Care Provider: Alisa Ramirez ED Provider: Ami Bassett Home Meds and New Rx's Prescriptions: No Action gabapentin 100 mg capsule 100 mg PO QHS RF: 0 acetylcysteine [NAC] 600 mg capsule 600 mg PO BID RF: 0 cod liver oil Capsule 1 cap PO DAILY RF: 0 Refresh Tears 0.5 % drops 1 drp OP 4-6XD PRNRF: 0 bisacodyl [Dulcolax (bisacodyl)] 5 mg tablet,delayed release (DR/EC) 5 mg PO DAILY PRNRF: 0 tramadol 50 mg tablet 50 mg PO DAILY MDD 1 tablet/day PRN (Reason: pain) 30 Days Qty: 30 RF: 0 polyethylene glycol 3350 [Miralax] 17 GM powder in packet 17 g PO DAILY PRNQty: 255 RF: 0 nitroglycerin [Nitrostat] 0.4 MG tablet, sublingual 0.4 mg Sublingual as directed RF: 0 docusate sodium [Dulcolax Stool Softener (dss)] 100 MG capsule 100 mg PO DAILY PRNRF: 0 Levemir FlexTouch U-100 Insuln 100 UNIT/1 ML insulin pen 100 units subcut BID RF: 0 lisinopril 20 MG tablet 20 mg PO DAILY RF: 0 carvedilol 25 MG tablet 25 mg PO BID Qty: 120 RF: 4 riboflavin (vitamin B2) [Vitamin B-2] 100 mg tablet 400 mg PO DAILY RF: 0 topiramate [Topamax] 25 mg capsule, sprinkle 75 mg PO DAILY RF: 0 levothyroxine 50 MCG tablet 50 mcg PO DAILY@0730 RF: 0 allopurinol 300 MG tablet 300 mg PO DAILY RF: 0 quetiapine [Seroquel] 300 MG tablet 300 mg PO HS RF: 0 rosuvastatin [Crestor] 20 MG tablet 20 mg PO HS RF: 0 metformin [Glucophage] 1,000 mg Tablet 1,000 mg PO BID RF: 0 Prilosec OTC 20 mg Tablet,Delayed Release (Dr/Ec) 20 mg PO DAILY RF: 0 citalopram 10 mg tablet 20 mg PO DAILY RF: 0 glimepiride [Amaryl] 4 MG tablet 4 mg PO DAILY@0800 RF: 0 acetaminophen [Tylenol] 325 MG tablet 2 tab PO Q4H PRN PRNRF: 0 gabapentin 300 mg capsule 300 mg PO HS RF: 0 magnesium oxide 400 mg Capsule 400 mg PO DAILY RF: 0 cholecalciferol (vitamin D3) [Vitamin D3] 1,000 unit Tablet 1,000 unit PO DAILY RF: 0 Medical Decision Making This is a 68-year-old patient who presents to the emergency room for complaints of chest pain with radiation to the left arm. Patient reports chest pain approximately 5 out of 10 with radiation to the left arm. Patient does report mild shortness of breath. No associated headache or dizziness. No diaphoresis. Patient does have a history of open heart surgery in the past. Patient does report mild nausea and gas belching. Patient reports he took a nitro prior to arrival which did relieve his pain for approximately 15 minutes then the pain returned. Patient reports last evening a very similar episode of left arm pain relieved with nitro and then he went to bed as he was feeling improved. This patient has significant cardiac risk including a history of 3 stents being placed in his heart as well as a double bypass surgery both approximately in the year 2016. Patient is a diabetic, history of hyperlipidemia and hypertension. Patient also has a significant medical history of multiple intracranial bleeds. 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 Enriquez. Initial EKG reveals a heart rate of 85. Sinus rhythm. T wave inversion is noted in leads V3 through V6 which is unchanged and prior to previous EKG. Previous EKG on 04/29/2018. Patient was given an additional nitro as well as 325 mg of aspirin. Patient reports after 5 minutes nitro had improved his chest pain from a 5 to approximately a 3 out of 10. After 30 minutes patient's pain had fully relieved. Patient had no persistent chest pain or arm pain. Patient's initial and repeat troponins are negative. CT of patient's chest reveals no obvious pulmonary embolism, aortic aneurysms or dissection.'s surgical changes status post sternotomy and bypass grafting were present on the CT. No significant intra-abdominal abnormalities noted this evening on CT. Few incidental noting regarding to hepatomegaly and hepatic steatosis were noted. Gallstone noted. No abdominal aortic aneurysm was noted. Given patient's medical history and cardiac risk I do feel this patient's most appropriate for admission to the hospital for further evaluation given multiple episodes of pain in the last 24 hours relieved with nitro. Patient agrees with plan of care and this is their preference for hospital admission. Spoke with hospitalist, Dr. Nguyen who will accept patient's admission to the hospital at this time. HPI General Date/Time Provider Initiated Documentation: 04/21/19 18:49. HPI Narrative: Is a 68-year-old patient with significant cardiac history who presents to the emergency room for complaints of chest pain which he reports that approximately 5 out of 10 at this time with radiation to his left arm. Patient reports onset of chest pain this evening when he eating. Patient reports he had left arm pain, took a nitro tablet which fully resolved relieved his pain. Patient reports return of his pain after approximately 15 minutes which prompted his evaluation in the emergency room this evening. Patient did report a similar episode which occurred last night again associated with left arm pain relieved with nitro. Patient denies any associated diaphoresis. He does report mild nausea without vomiting. Denies significant abdominal pain. Patient reports he had been eating and drinking without difficulty. No significant changes in his bowels. No complaints of urinary changes. No cough. He does admit to mild shortness of breath. No back pain. No headache or dizziness. Related Data Home Medications Medication Instructions Recorded Confirmed allopurinol 300 mg PO DAILY 01/24/13 04/21/19 levothyroxine 50 mcg PO DAILY@0730 01/24/13 04/21/19 quetiapine [Seroquel] 300 mg PO HS 01/24/13 04/21/19 glimepiride [Amaryl] 4 mg PO DAILY@0800 01/11/17 04/21/19 rosuvastatin [Crestor] 20 mg PO HS 03/22/17 04/21/19 docusate sodium [Dulcolax Stool 100 mg PO DAILY PRN 04/08/17 04/21/19 Softener (dss)] nitroglycerin [Nitrostat] 0.4 mg SUBLINGUAL as directed 04/08/17 04/21/19 polyethylene glycol 3350 [Miralax] 17 g PO DAILY PRN #255 gm 04/08/17 04/21/19 acetaminophen [Tylenol] 2 tab PO Q4H PRN PRN tab 05/24/17 04/21/19 Levemir FlexTouch U-100 Insuln 100 units SUBCUT BID 08/04/17 04/21/19 lisinopril 20 mg PO DAILY tab-cap 11/25/17 04/21/19 carvedilol 25 mg PO BID #120 tab-cap 02/07/18 04/21/19 gabapentin 300 mg capsule 300 mg PO HS cap 07/27/18 04/21/19 magnesium oxide 400 mg PO DAILY 09/04/18 04/21/19 cholecalciferol (vitamin D3) 1,000 unit PO DAILY 11/11/18 04/21/19 [Vitamin D3] acetylcysteine 600 mg capsule 600 mg PO BID 12/12/18 04/21/19 gabapentin 100 mg capsule 100 mg PO QHS 12/12/18 04/21/19 Prilosec OTC 20 mg PO DAILY 03/08/19 04/21/19 metformin [Glucophage] 1,000 mg PO BID 03/08/19 04/21/19 citalopram 10 mg tablet 20 mg PO DAILY tab 03/28/19 04/21/19 riboflavin (vitamin B2) 100 mg 400 mg PO DAILY tab 03/28/19 04/21/19 tablet topiramate 25 mg sprinkle capsule 75 mg PO DAILY cap 03/28/19 04/21/19 bisacodyl 5 mg tablet,delayed 5 mg PO DAILY PRN tab 04/17/19 04/21/19 release carboxymethylcellulose sodium 0.5 1 drp OP 4-6XD PRN 04/17/19 04/21/19 % eye drops cod liver oil 1 cap PO DAILY 04/17/19 04/21/19 tramadol 50 mg tablet 50 mg PO DAILY PRN 30 Days #30 tab 04/17/19 04/21/19 MDD 1 tablet/day Previous Rx's Medication Instructions Recorded acetaminophen [Tylenol] 2 tab PO Q4H PRN PRN tab 05/24/17 carvedilol 25 mg PO BID #120 tab-cap 02/07/18 tramadol 50 mg tablet 50 mg PO DAILY PRN 30 Days #30 tab 04/17/19 MDD 1 tablet/day Allergies Allergy/AdvReac Type Severity Reaction Status Date / Time amoxicillin Allergy Severe breathing Unverified 04/21/19 18:55 difficuty and vomiting Penicillins Allergy Skin Rash Unverified 04/21/19 18:55 sulfamethoxazole Allergy Skin Rash Unverified 04/21/19 18:55 [From Bactrim] trimethoprim [From Bactrim] Allergy Skin Rash Unverified 04/21/19 18:55 oxycodone HCl [From Percocet] AdvReac Severe Contraindic Unverified 04/21/19 18:55 ated oxycodone terephthalate AdvReac Severe Contraindic Unverified 04/21/19 18:55 [From Percodan] ated General Stated Complaint: Chest Pain MADELIN: 2 Review of Systems All systems reviewed & are unremarkable except as noted in HPI and below Constitutional Constitutional: Denies chills, Denies fatigue, Denies fever(s) and Denies headache(s) ENT Ears, Nose, Mouth, and Throat: Denies headache(s) Cardiovascular Cardiovascular: Reports chest pain, Reports chest pain at rest, Denies diaphoresis, Denies syncope, Denies rapid heart rate, Denies edema, Denies lightheadedness, Reports radiating jaw, neck or arm pain and Denies palpitations Gastrointestinal Gastrointestinal: Reports nausea and Denies vomiting Neurologic Neurologic: Denies syncope and Denies headache(s) Endocrine Endocrine: Denies fatigue and Denies palpitations PFSH Medical History CAD (coronary artery disease) Chronic low back pain Colon polyps Depression Diastasis recti DM type 2 (diabetes mellitus, type 2) Fatty liver GERD (gastroesophageal reflux disease) Gout H/O alcohol abuse Headaches due to 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 Hx of deep venous thrombosis Hyperlipidemia Hypertension Hypothyroidism MRSA infection Obstructive sleep apnea Pituitary abnormality (Acute) Right sided weakness (Acute) Urethral stricture Vitamin D deficiency Surgical History Appendectomy (06/01/16) Colonoscopy - MAC 2010-5year f/u 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 electroconvulsive therapy Extraction of cataract facial lesion removal Repair of inguinal hernia (08/05/17) right inguinal hernia repair by Dr Arroyo on 08/05/17 Repair of umbilical hernia Social History Smoking/Tobacco Use Status: Never Alcohol Intake: never Drug use: Never Substance use type: does not use Household members: spouse Housing: house Pets and animals: Yes Pets and animals: dog(s) Do you feel safe at home: Yes Do you feel safe in your relationship?: Yes Exam Narrative Exam Narrative: CONST: Healthy appearing patient, in no acute distress. Well hydrated. Alert and alert. EYES: General normal appearance. Alignment normal. Eyelids normal. Conjunctiva normal. Sclera normal. PERRL. NECK: Normal visual inspection. FROM. No lymphadenopathy. Trachea midline. No Midline tenderness. CHEST: Normal insepection of the chest. Surgical scars noted to the midline RESP: Normal respiratory effort. Speaking full sentences. No cough. No wheezing. No retractions. Clear to auscaltation. Breath sound equal and present bilaterally. CARDIO: No JVD. Normal PMI. Regular Rate. Regular Rhythm. Normal peripheral pulses. GI: Normal inspection of abdomen. No distension. Soft. Nontender. Bowel sounds present in all 4 quadrants. No rebound. No gaurding. MUSCULOSKELETAL: Normal Gait. FROM of all extremities. Distal neurovascularly intact. Sensation intact distally. SKIN: Normal. Dry. No rashes. NEURO: Alert and awake. Speech clear. PSYCH: Normal affect. Cooperative. Course Vital Signs Vital signs: Vital Signs Temperature 37.2 C 04/21/19 18:51 Pulse 85 04/21/19 18:51 Respiratory Rate 16 04/21/19 18:51 Blood Pressure 134/84 04/21/19 18:51 Pulse Oximetry 100 04/21/19 18:51 Temperature 37.2 C 04/21/19 18:51 Temperature Source Temporal Artery Scan 04/21/19 18:51 Pulse 86 04/21/19 19:44 Respiratory Rate 22 04/21/19 19:44 Respiratory Effort Non-Labored 04/21/19 18:51 Blood Pressure 133/87 04/21/19 19:44 Pulse Oximetry 99 04/21/19 19:44 Oxygen Delivery Method Room Air 04/21/19 19:44 Oxygen Flow Rate 0 04/21/19 19:44 Pain Level 7 04/21/19 19:44
[2019-04-21 19:56] LABS: Abs Immature Grans 0.01 k/cumm (0.0-0.09); Absolute Basophil Count 0.07 k/cumm (0.0-0.2); Absolute Lymphocyte Count 1.24 k/cumm (1.2-3.4); Absolute Monocyte Count 0.69 k/cumm (0.11-0.7); Absolute Neutrophil Count 3.62 k/cumm (1.2-6.7); Basophils % 1.2; Eosinophils % 3.4; HCT 37.8 % (40.0-50.0); HGB 12.4 g/dL (13.5-17.5); Immature Grans % 0.2; Lymphocytes % 21.3; Mean Corp. HGB Concentration 32.8 g/dL (32.0-36.0); Mean Corpuscular Hemoglobin 25.2 pg (27.0-33.0); Mean Corpuscular Volume 76.7 fL (80-95); Mean Platelet Volume 8.9 fL (8.0-11.0); Monocytes % 11.8; Neutrophils % 62.1; Platelet Count 202 x1000/uL (130-400); RBC 4.93 m/cumm (4.50-6.00); RBC Distribution Width 16.1 % (11.8-14.1); White Blood Cell Count 5.83 k/cumm (4.4-10.8)
[2019-04-21 20:05] LABS: ALT 28 U/L (16-63); AST 16 U/L (15-37); Albumin 4.1 g/dL (3.4-5.0); Alkaline Phosphatase 79 U/L (46-116); Anion Gap 9.4 mmol/L (3-11); BUN 10 mg/dL (7-18); Bilirubin, Total 0.3 mg/dL (0.2-1.0); CO2 23.6 mmol/L (21.0-32.0); CREATININE 1.18 mg/dL (0.70-1.30); Calcium 8.7 mg/dL (8.5-10.1); Chloride 107 mmol/L (98-107); Glucose 161 mg/dL (70-100); Magnesium 2.3 mg/dL (1.8-2.4); NT-proBNP 103 pg/mL; Sodium 140 mmol/L (136-145); Total Protein 7.4 g/dL (6.4-8.2); Troponin I < 0.05 ng/mL (0.00-0.06)
[2019-04-21] MEDS: Omnipaque 350 MG/ML 100 ML BTL IJ (21:42)
--- NOTE | 2019-04-21 21:49 | DI.CT_ITS ---
EXAM: CT CHEST PE ABD PELVIS W CLINICAL HISTORY: chest and abd pain TECHNIQUE: 100 cc of Omnipaque 350 IV. COMPARISON: CT BRAIN NECK CTA from 03/08/2019 XR CHEST 2V PA LATERAL from 03/12/2019 NM MPI REST STRESS GRP from 04/24/2019 FINDINGS: No pulmonary emboli or aortic dissection is seen. Patient is status post CABG. There are tiny bila teral pleural effusions. The lungs show respiratory motion. No infiltrates are identified. A stabl e mild T12 compression fracture. The liver is again noted to be enlarged and shows mild fatty infiltration. The assesses again noted inferiorly. There is a small stone in the gallbladder. There is no abnormal gallbladder distention or thickening. Spleen, pancreas and adrenals are unremarkable. There is a small right renal cyst. The aorta is normal in diameter and shows mild to moderate calcification. The prostate is mildly enl arged. The bladder is unremarkable. There is no bowel dilatation or inflammatory change. Degenerat sherrill disc changes are seen greatest at L5-S1. IMPRESSION: No evidence of pulmonary emboli or aortic dissection. No acute abnormality is seen in the abdomen o r pelvis.
[2019-04-21 22:19] LABS: Troponin I < 0.05 ng/mL (0.00-0.06)
--- NOTE | 2019-04-21 22:34 | DI.VRAD_ITS ---
PROCEDURE INFORMATION: Exam: CT Angiography Chest With Contrast Exam date and time: 04/21/2019 7:29 PM Clinical history: 68 years old, male; Chest pain; Type not specified; Abdominal pain; Generalized; Prior surgery TECHNIQUE: Imaging protocol: Computed tomographic angiography of the chest with intravenous contrast. 3D rendering: MIP reconstructed images were created and reviewed. Contrast material: OMNIPAQUE 350; Contrast volume: 100 ml; Contrast route: IV 20G RT FOREARM; COMPARISON: CT THORAX CTA 11/11/2018 9:14 PM FINDINGS: Pulmonary arteries: No pulmonary artery filling defects to segmental level. Evaluation more distally limited. Aorta: Unremarkable. No aortic aneurysm. No aortic dissection. Lungs: There is minimal bibasilar atelectasis. Pleural space: No pneumothorax. Minute pleural effusions. Heart: Prior coronary artery bypass grafting. No pericardial effusion. Lymph nodes: Unremarkable. No enlarged lymph nodes. Bones/joints: Prior median sternotomy, bony union incomplete. The spine demonstrates moderate degenerative changes at multiple levels. Soft tissues: Unremarkable. IMPRESSION: 1. No pulmonary artery embolism demonstrated to segmental level. Evaluation more distally limited. 2. No aortic aneurysm or dissection. 3. Coronary artery disease, status post bypass grafting. 4. Bony union of sternotomy incomplete. 5. Minute pleural effusions. PROCEDURE INFORMATION: Exam: CT Angiography Abdomen With Contrast Exam date and time: 04/21/2019 7:29 PM Clinical history: 68 years old, male; Chest pain; Type not specified; Abdominal pain; Generalized; Prior surgery TECHNIQUE: Imaging protocol: Computed tomographic angiography images of the abdomen with intravenous contrast material. 3D rendering: MIP reconstructed images were created and reviewed. Contrast material: OMNIPAQUE 350; Contrast volume: 100 ml; Contrast route: IV 20G RT FOREARM; COMPARISON: CT THORAX CTA 11/11/2018 9:14 PM FINDINGS: VASCULATURE: Aorta: No abdominal aortic aneurysm or dissection. Atherosclerosis. Celiac trunk and mesenteric arteries: No occlusion or significant stenosis. Renal arteries: No occlusion or significant stenosis. Left iliac arteries: Iliac arteries without occlusion or significant stenosis. ABDOMEN: Liver: Liver is enlarged. There is diffuse diminished attenuation of hepatic parenchyma consistent with the presence of mild fatty infiltration. Stable cyst in right lobe. Gallbladder and bile ducts: Gallstone. No biliary ductal dilatation. Pancreas: The pancreas is normal. Spleen: The spleen is normal. Adrenals: The adrenal glands are normal. Kidneys and ureters: There is mild perinephric stranding. No hydronephrosis. Simple cyst right kidney measures 1.7 cm. Lesion too small to characterize in left kidney. Stomach and bowel: There is no evidence of intestinal perforation or obstruction. Lymph nodes: No adenopathy. Intraperitoneal space: Unremarkable. No free air. No significant fluid collection. Reproductive: Unremarkable as imaged. Bones/joints: Chronic T12 vertebral body compression fracture.The spine demonstrates moderate degenerative changes at multiple levels. Soft tissues: Surgical clip in right groin IMPRESSION: 1. No aortic aneurysm or dissection. 2. Hepatomegaly. 3. Hepatic steatosis. 4. Gallstone. Dictated and Authenticated by: Lauri Jeronimo MD. Ordering:ARACELI Mueller MD
--- NOTE | 2019-04-21 23:50 | HPE_ITS ---
Date of service: 04/21/19 Time of Service: 23:50 Assessment and Plan Assessment and plan (1) Chest pain: Status: Acute Assessment and plan: Chest pain, fair probability coronary insufficiency. Will heparinize (and add IV NTG for any further CP), get serial troponins. If rules out would at minimum get stress test but with his history might consider direct to cath.Usual meds as is except reduce insulin as I will leave NPO in event needs procedure in AM. History of Present Illness History of Present Illness Chief Complaint: CP Narrative: 68 male with h/o CAD, s/p multiple stents, as well as and CABG 2015. Here with two days of stuttering chest pressure with radiation LUE. 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 Tropnoni 1 and 2 negative. Admitted for further evaluation. Feels entirely well at present. Review of Systems All systems reviewed & are unremarkable except as noted in HPI and below PFSH Medical History CAD (coronary artery disease) Chronic low back pain Colon polyps Depression Diastasis recti DM type 2 (diabetes mellitus, type 2) Fatty liver GERD (gastroesophageal reflux disease) Gout H/O alcohol abuse Headaches due to 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 Hx of deep venous thrombosis Hyperlipidemia Hypertension Hypothyroidism MRSA infection Obstructive sleep apnea Pituitary abnormality (Acute) Right sided weakness (Acute) Urethral stricture Vitamin D deficiency Surgical History Appendectomy (06/01/16) Colonoscopy - MAC 2009-5year f/u 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 electroconvulsive therapy Extraction of cataract facial lesion removal Repair of inguinal hernia (08/05/17) right inguinal hernia repair by Dr Arroyo on 08/05/17 Repair of umbilical hernia Social History Smoking/Tobacco Use Status: Never Alcohol Intake: never Drug use: Never Substance use type: does not use Household members: spouse Housing: house Pets and animals: Yes Pets and animals: dog(s) Do you feel safe at home: Yes Do you feel safe in your relationship?: Yes Meds Home Medications and Allergies Home Medications Medication Instructions Recorded Confirmed Type allopurinol 300 mg PO DAILY 01/24/13 04/21/19 History levothyroxine 50 mcg PO DAILY@0730 01/24/13 04/21/19 History quetiapine [Seroquel] 300 mg PO HS 01/24/13 04/21/19 History glimepiride [Amaryl] 4 mg PO DAILY@0800 01/11/17 04/21/19 History rosuvastatin [Crestor] 20 mg PO HS 03/22/17 04/21/19 History docusate sodium [Dulcolax Stool 100 mg PO DAILY PRN 04/08/17 04/21/19 History Softener (dss)] nitroglycerin [Nitrostat] 0.4 mg SUBLINGUAL as directed 04/08/17 04/21/19 History polyethylene glycol 3350 [Miralax] 17 g PO DAILY PRN #255 gm 04/08/17 04/21/19 History acetaminophen [Tylenol] 2 tab PO Q4H PRN PRN tab 05/24/17 04/21/19 Rx Levemir FlexTouch U-100 Insuln 100 units SUBCUT BID 08/04/17 04/21/19 History lisinopril 20 mg PO DAILY tab-cap 11/25/17 04/21/19 History carvedilol 25 mg PO BID #120 tab-cap 02/07/18 04/21/19 Rx gabapentin 300 mg capsule 300 mg PO HS cap 07/27/18 04/21/19 History magnesium oxide 400 mg PO DAILY 09/04/18 04/21/19 History cholecalciferol (vitamin D3) 1,000 unit PO DAILY 11/11/18 04/21/19 History [Vitamin D3] acetylcysteine 600 mg capsule 600 mg PO BID 12/12/18 04/21/19 History gabapentin 100 mg capsule 100 mg PO QHS 12/12/18 04/21/19 History Prilosec OTC 20 mg PO DAILY 03/08/19 04/21/19 History metformin [Glucophage] 1,000 mg PO BID 03/08/19 04/21/19 History citalopram 10 mg tablet 20 mg PO DAILY tab 03/28/19 04/21/19 History riboflavin (vitamin B2) 100 mg 400 mg PO DAILY tab 03/28/19 04/21/19 History tablet topiramate 25 mg sprinkle capsule 75 mg PO DAILY cap 03/28/19 04/21/19 History bisacodyl 5 mg tablet,delayed 5 mg PO DAILY PRN tab 04/17/19 04/21/19 History release carboxymethylcellulose sodium 0.5 1 drp OP 4-6XD PRN 04/17/19 04/21/19 History % eye drops cod liver oil 1 cap PO DAILY 04/17/19 04/21/19 History tramadol 50 mg tablet 50 mg PO DAILY PRN 30 Days #30 tab 04/17/19 04/21/19 Rx MDD 1 tablet/day Allergies Allergy/AdvReac Type Severity Reaction Status Date / Time amoxicillin Allergy Severe breathing Unverified 04/21/19 18:55 difficuty and vomiting Penicillins Allergy Skin Rash Unverified 04/21/19 18:55 sulfamethoxazole Allergy Skin Rash Unverified 04/21/19 18:55 [From Bactrim] trimethoprim [From Bactrim] Allergy Skin Rash Unverified 04/21/19 18:55 oxycodone HCl [From Percocet] AdvReac Severe Contraindic Unverified 04/21/19 18:55 ated oxycodone terephthalate AdvReac Severe Contraindic Unverified 04/21/19 18:55 [From Percodan] ated Exam Narrative Exam Narrative: 1467/83, 73, 20, 37.2. HEENT AT/NC; neck supple; lungs clear; heart RRR w/o m/r/g; abdomen soft and NT; extremities w/o edema, pulse 2+/=; neurro non-focal, ox3. Results Labs Result diagrams: 04/21/19 19:35 04/21/19 19:35 Labs: Laboratory Results - last 24 hr 04/21/19 04/21/19 04/21/19 19:35 19:35 21:59 WBC 5.83 RBC 4.93 Hgb 12.4 L Hct 37.8 L MCV 76.7 L MCH 25.2 L MCHC 32.8 RDW 16.1 H Plt Count 202 MPV 8.9 Immature Gran % 0.2 Neutrophils % 62.1 Lymphocytes % 21.3 Monocytes % 11.8 Eosinophils % 3.4 Basophils % 1.2 Absolute Neutrophils 3.62 Absolute Lymphocytes 1.24 Absolute Monocytes 0.69 Absolute Eosinophils 0.20 Absolute Basophils 0.07 Sodium 140 Potassium 4.0 Chloride 107 Carbon Dioxide 23.6 Anion Gap 9.4 BUN 10 Creatinine 1.18 Estimated GFR/1.73 m2 >= 60.00 Glucose 161 H Calcium 8.7 Magnesium 2.3 Total Bilirubin 0.3 AST 16 ALT 28 Alkaline Phosphatase 79 Troponin I < 0.05 < 0.05 NT-Pro-B Natriuret Pep 103 Total Protein 7.4 Albumin 4.1 Last Vital Signs Temp 37.2 C 04/21/19 18:51 Pulse 73 04/21/19 23:31 Resp 23 04/21/19 23:31 BP 146/83 H 04/21/19 23:31 Pulse Ox 98 04/21/19 23:40
[2019-04-22] VITALS (94 sets, daily range): BP systolic 91–179; BP diastolic 55–143; PULSE 72–101; RESP 11–30; TEMP 35.5–38.7; O2SAT 94–100
[2019-04-22 00:51] LABS: Troponin I < 0.05 ng/mL (0.00-0.06)
[2019-04-22] MEDS: Omeprazole 20 MG CAPCR PO (02:18)
[2019-04-22] MEDS: QUEtiapine 300 MG TAB PO ×2 (02:18→22:20)
[2019-04-22] MEDS: Calcium Carbonate *TUMS* 500 MG CHEW 1000 MG PO ×3 (02:18→20:29)
[2019-04-22] MEDS: Acetaminophen 325 MG TAB 650 MG PO (02:18)
[2019-04-22] MEDS: Normal Saline Flush 10 ML SYR IVP ×2 (02:19→12:10)
[2019-04-22] MEDS: Normal Saline 1,000 ML 75 ML IV (05:01)
[2019-04-22] MEDS: Levothyroxine 50 MCG TAB PO (07:05)
[2019-04-22 08:39] LABS: Abs Immature Grans 0.01 k/cumm (0.0-0.09); Absolute Basophil Count 0.06 k/cumm (0.0-0.2); Absolute Eosinophil Count 0.17 k/cumm (0.0-0.7); Absolute Lymphocyte Count 1.43 k/cumm (1.2-3.4); Absolute Monocyte Count 0.48 k/cumm (0.11-0.7); Absolute Neutrophil Count 3.08 k/cumm (1.2-6.7); Basophils % 1.1; Eosinophils % 3.3; HCT 34.8 % (40.0-50.0); HGB 11.5 g/dL (13.5-17.5); Immature Grans % 0.2; Lymphocytes % 27.3; Mean Corpuscular Hemoglobin 25.3 pg (27.0-33.0); Mean Corpuscular Volume 76.7 fL (80-95); Mean Platelet Volume 8.9 fL (8.0-11.0); Monocytes % 9.2; Neutrophils % 58.9; Platelet Count 193 x1000/uL (130-400); RBC 4.54 m/cumm (4.50-6.00); RBC Distribution Width 16.2 % (11.8-14.1); White Blood Cell Count 5.23 k/cumm (4.4-10.8)
[2019-04-22] MEDS: Allopurinol 300 MG TAB PO (08:41)
[2019-04-22] MEDS: Citalopram 20 MG TAB PO (08:41)
[2019-04-22] MEDS: Magnesium Oxide 400 MG TAB PO (08:41)
[2019-04-22] MEDS: Carvedilol 25 MG TAB PO ×2 (08:41→19:17)
[2019-04-22] MEDS: Topiramate 25 MG TAB 75 MG PO (08:41)
[2019-04-22] MEDS: Cholecalciferol (Vitamin D3) 1,000 UNIT TAB 1000 UNITS PO (08:41)
[2019-04-22] MEDS: Lisinopril 20 MG TAB PO (08:41)
[2019-04-22 08:53] LABS: Anion Gap 11.1 mmol/L (3-11); BUN 10 mg/dL (7-18); CO2 20.9 mmol/L (21.0-32.0); CREATININE 1.06 mg/dL (0.70-1.30); Calcium 9.2 mg/dL (8.5-10.1); Chloride 108 mmol/L (98-107); Glucose 143 mg/dL (70-100); Magnesium 2.1 mg/dL (1.8-2.4); Potassium 3.5 mmol/L (3.5-5.1); Sodium 140 mmol/L (136-145)
[2019-04-22 09:01] LABS: Troponin I < 0.05 ng/mL (0.00-0.06)
--- NOTE | 2019-04-22 10:06 | PDOC.CMIN ---
- If Service Date Differs Date of service: 04/22/19 Time of Service: 10:08 Care Management Initial Assess REASON FOR HOSPITALIZATION:: Chest Pain PAST MEDICAL HISTORY/PAST SURGICAL HISTORY:: Medical History. CAD (coronary artery disease). Chronic low back pain. Colon polyps. Depression. Diastasis recti. DM type 2 (diabetes mellitus, type 2). Fatty liver. GERD (gastroesophageal reflux disease). Gout. H/O alcohol abuse. Headaches due to 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. Hx of deep venous thrombosis. Hyperlipidemia. Hypertension. Hypothyroidism. MRSA infection. Obstructive sleep apnea. Pituitary abnormality (Acute). Right sided weakness (Acute). Urethral stricture. Vitamin D deficiency. Surgical History. Appendectomy (06/01/16). Colonoscopy - MAC. 2009-5year f/u. Coronary Artery Bypass Gaft (CABG). 04/2016. electroconvulsive therapy. Extraction of cataract. facial lesion removal. Repair of inguinal hernia (08/05/17). right inguinal hernia repair by Dr Arroyo on 08/05/17. Repair of umbilical hernia PREVIOUS FUNCTIONAL STATUS/SOCIAL/FAMILY SUPPORTS:: Fredo lives in [facility] with his of 50 years, Brittany. Their adult son, Fredo also lives at home with them. He is retired and independent with ADL's. CURRENT FUNCTIONAL STATUS:: Fredo was lying in bed when CM met with him. His , Madiha was by his side. He stated that he is feeling better and that he is eager to get home. He reported that he is having a nuclear stress test tomorrow, and if the results are good he may be able to go home. Madiha and Fredo told CM that they would love to sell their house and move to [place], but they haven't been able to because of Fredo's health. CM will continue to follow. ADVANCE DIRECTIVES:: On file, Brittany Osman () listed as agent Has patient been provided with information about the portal?: Yes Did the patient sign up for the portal?: No (prev offered) CODE STATUS:: Full Code INSURANCE COVERAGE / FINANCIAL ISSUES:: [employer] Plan F CURRENT HOME/COMMUNITY SERVICES/EQUIPMENT:: Fredo has a bipap at home but reports he doesn't use it. Fredo has a manager case (Siomara) at [facility]. Has worked with [employer] and [employer] previously, but not currently. Fredo has a cane and hearing aids. PRIMARY CARE PHYSICIAN:: Alisa Ramirez POTENTIAL DISCHARGE NEEDS:: Evaluation for futher needs, follow up appoinmtents PATIENT/FAMILY EDUCATION NEEDS:: Review discharge instructions, discussion of self care needs including Ask Me Three ANTICIPATED BARRIERS TO DISCHARGE:: None identified at this time. TRANSPORTATION:: Fredo will transport home via private vehicle driven by his . PLAN:: Anticipate Fredo will return home when medically cleared with no additional services. He will follow up with his PCP, as recommended. His , Brittany, will drive him home via private vehicle. CM will continue to offer support regarding discharge planning.
--- NOTE | 2019-04-22 11:37 | PGE_ITS ---
Date of Service Date of service: 04/22/19 Time of Service: 11:47 Assessment and Plan Assessment and plan (1) Chest pain: Status: Acute Assessment and plan: Troponins are negative. EKG with nonspecific findings. Will recheck 1 more troponin given the chest pain this am. S/p GABG x2 in 2016 and cardiac cath in 2017 with both of the grafts patent and moderate disease in LAD (Diagonal 1 segment) and two 50% stenotic lesions in RCA. These were not felt to be responsible for his chest pain in 2017, and GI workup was recommended at this time. In 2018, the patient had to come off aspirin due to spontaneous R-sided subdural hematoma which reaccumulated, required 2 jaylin holes and a blood patch for CSF extravasation. I consulted [facility] [place] on whether or not antiplatelet therapy (such as simply baby aspirin) is safe to give in this patient. Dr Nugent of neurology feels that there has be to be compelling evidence that the chest pain is cardiac in origin because the risk of rebleeding is not zero, given the fact that the subdural hematoma was spontaneous. In our situation, the patient also had reports of dyspepsia this morning, which in addition to cardiology impression in 2017 after a cardiac cath, does raise the possibility of the symptoms being due to a GI cause. PPI has been increased. Will continue to monitor chest pain for recurrence. If it does, would initiate a long acting nitrate. Patient is empirically scheduled for an echo and an MPI stress test on Wednesday. (2) Diabetes mellitus type 2 in obese: Status: Chronic Assessment and plan: Change accuchecks to AC & HS. (3) Hyperlipidemia: Status: Chronic Assessment and plan: Check fasting lipid panel. Continue crestor. (4) Coronary artery disease: Status: Chronic Assessment and plan: As above (5) Chronic subdural hematoma: Status: Chronic Assessment and plan: As above S/p spontaneous R-sided subdural hematoma in 2018 re reaccumulation, requiring 2 jaylin holes, and CSF leak requiring a blood patch. Benefits of antiplatelet therapy need to be weighed against the risks, which is substantial in this specific case as the etiology of the hematoma was spontaneous. (6) DVT prophylaxis: Status: Acute Assessment and plan: TEDs + SCDs Chemical DVT ppx is contraindicated due to h/o subdural hematoma. (7) Discharge planning issues: Status: Acute Assessment and plan: Full code Ok to transfer to medical surgical floor with telemetry if no more episodes of chest pain today Subjective Subjective Interval history since last seen: 1 episode of chest pain this morning at rest, relieved after 2 nitroglycerin. There was a report of dyspepsia at the time as well. He is on a PPI at home. No chest pain since. No arrhythmia on the monitor. Denies dizziness, headache, visual changes, shortness of breath, nausea/vomiting. Exam Narrative Exam Narrative: General: very pleasant elderly male, A&Ox3, laying comfortably in bed HEENT: EOMI, MMM Heart: RRR, no m/r/g Lungs: CTAB GI: abdomen is soft, nontender, nondistended Extremities: no e/c/c BLE's Objective Objective Clinical Data: Abnormal lab results 04/21/19 04/21/19 04/22/19 Range/Units 19:35 19:35 08:12 Hgb 12.4 L (13.5-17.5) g/dL Hct 37.8 L (40.0-50.0) % MCV 76.7 L (80-95) fL MCH 25.2 L (27.0-33.0) pg RDW 16.1 H (11.8-14.1) % Chloride 108 H (98-107) mmol/L Carbon Dioxide 20.9 L (21.0-32.0) mmol/L Anion Gap 11.1 H (3-11) mmol/L Glucose 161 H 143 H (70-100) mg/dL 04/22/19 Range/Units 08:12 Hgb 11.5 L (13.5-17.5) g/dL Hct 34.8 L (40.0-50.0) % MCV 76.7 L (80-95) fL MCH 25.3 L (27.0-33.0) pg RDW 16.2 H (11.8-14.1) % Chloride (98-107) mmol/L Carbon Dioxide (21.0-32.0) mmol/L Anion Gap (3-11) mmol/L Glucose (70-100) mg/dL Vital Signs Temperature 36.5 C 04/22/19 07:30 Temperature Source Temporal Artery Scan 04/22/19 07:30 Pulse 79 04/22/19 08:00 Pulse 82 04/22/19 09:30 Respiratory Rate 13 04/22/19 09:30 Respiratory Effort Non-Labored 04/22/19 07:30 Respiratory Depth Normal 04/22/19 07:30 Respiratory Pattern Normal 04/22/19 07:30 Blood Pressure 120/59 L 04/22/19 08:00 Blood Pressure Mean 73 04/22/19 08:00 Blood Pressure Position Supine 04/22/19 07:30 Pulse Oximetry 96 04/22/19 09:30 Oxygen Delivery Method Room Air 04/22/19 07:30 Oxygen Flow Rate 0 04/22/19 07:30 Pain Level 0 04/22/19 07:30 Intake & Output 04/21/19 04/21/19 04/22/19 11:59 23:59 11:59 Intake Total 50 / 50 Output Total 700 / 700 Balance -650 / -650 Weight 89.811 kg 90.1 kg Intake: Oral 50 / 50 Output: Urine 700 / 700 Other: Urine Color Pale Yellow Urine Appearance Clear Urine Odor None Comment voids pale yellow urine to the urinal at his bedside. Voiding Methods Urinal Laboratory Results WBC 5.23 k/cumm (4.4-10.8) 04/22/19 08:12 RBC 4.54 m/cumm (4.50-6.00) 04/22/19 08:12 Hgb 11.5 g/dL (13.5-17.5) L 04/22/19 08:12 Hct 34.8 % (40.0-50.0) L 04/22/19 08:12 MCV 76.7 fL (80-95) L 04/22/19 08:12 MCH 25.3 pg (27.0-33.0) L 04/22/19 08:12 MCHC 33.0 g/dL (32.0-36.0) 04/22/19 08:12 RDW 16.2 % (11.8-14.1) H 04/22/19 08:12 Plt Count 193 x1000/uL (130-400) 04/22/19 08:12 MPV 8.9 fL (8.0-11.0) 04/22/19 08:12 Immature Gran % 0.2 04/22/19 08:12 Neutrophils % 58.9 04/22/19 08:12 Lymphocytes % 27.3 04/22/19 08:12 Monocytes % 9.2 04/22/19 08:12 Eosinophils % 3.3 04/22/19 08:12 Basophils % 1.1 04/22/19 08:12 Absolute Neutrophils 3.08 k/cumm (1.2-6.7) 04/22/19 08:12 Absolute Lymphocytes 1.43 k/cumm (1.2-3.4) 04/22/19 08:12 Absolute Monocytes 0.48 k/cumm (0.11-0.7) 04/22/19 08:12 Absolute Eosinophils 0.17 k/cumm (0.0-0.7) 04/22/19 08:12 Absolute Basophils 0.06 k/cumm (0.0-0.2) 04/22/19 08:12 APTT 27.0 sec (21.0-31.4) 04/22/19 02:02 Sodium 140 mmol/L (136-145) 04/22/19 08:12 Potassium 3.5 mmol/L (3.5-5.1) 04/22/19 08:12 Chloride 108 mmol/L (98-107) H 04/22/19 08:12 Carbon Dioxide 20.9 mmol/L (21.0-32.0) L 04/22/19 08:12 Anion Gap 11.1 mmol/L (3-11) H 04/22/19 08:12 BUN 10 mg/dL (7-18) 04/22/19 08:12 Creatinine 1.06 mg/dL (0.70-1.30) 04/22/19 08:12 Estimated GFR/1.73 m2 >= 60.00 (mL/min/1.73m2) 04/22/19 08:12 Glucose 143 mg/dL (70-100) H 04/22/19 08:12 Calcium 9.2 mg/dL (8.5-10.1) 04/22/19 08:12 Magnesium 2.1 mg/dL (1.8-2.4) 04/22/19 08:12 Total Bilirubin 0.3 mg/dL (0.2-1.0) 04/21/19 19:35 AST 16 U/L (15-37) 04/21/19 19:35 ALT 28 U/L (16-63) 04/21/19 19:35 Alkaline Phosphatase 79 U/L (46-116) 04/21/19 19:35 Troponin I < 0.05 ng/mL (0.00-0.06) 04/22/19 08:12 NT-Pro-B Natriuret Pep 103 pg/mL (-299) 04/21/19 19:35 Total Protein 7.4 g/dL (6.4-8.2) 04/21/19 19:35 Albumin 4.1 g/dL (3.4-5.0) 04/21/19 19:35 EKG: diffuse ST-T changes/T wave inversions, more exaggerated in lateral precordial leads today
[2019-04-22] MEDS: Pantoprazole 40 MG VIAL IVP (12:09)
[2019-04-22 12:24] LABS: Troponin I < 0.05 ng/mL (0.00-0.06)
[2019-04-22] MEDS: Insulin Aspart 300 UNITS/3 ML PEN SC ×3 (12:47→22:19)
--- NOTE | 2019-04-22 12:53 | PHARADMIT ---
Addendum entered by Monica Shaw 04/23/19 14:16: MPI stress test Wednesday Many of his home meds changed from AM dosing to QPM dosing @ 6pm BG 264 -adding Lantus although NPO after midnight No antiplatelet therapy due to Hx of subdural hematoma, needs further consideration after Echo/MPI complete & Cardiology consult chest pain this morning, although he refused NTG Troponin's still trending negative Pt's own OTC items not asked for, likely won't need during this stay Original Note: Admission Pharmacy Clinical Review CHEST PAIN Code Status Full Code Current Weight 90.1 kg Renally Cleared and Narrow Therapeutic Index Meds CrCl~67ml/min QTc Value / Action Taken QTC 425 (Citalopram, Quetiapine) BP Control, Fever BP 120/59 Afebrile Electrolytes reviewed K+ 3.5 Mag 2.1 DVT Prophylaxis None-TEDS & SCD's (Hx R-sided subdural hematoma in 2018) so contraindicated Opiate Usage / Scheduled Bowel Regimen Ordered none Plt/SCr for Heparin / Enoxaparin Plt 193 Scr 1.06 INR for Warfarin H/H stable, WBC/Bands H/H 11.5/34.8 WBC 5.23 Antibiotic appropriateness none Cultures and Sensitivities none Surgical ABX d/c within 24 hr DM control / Insulin Dosing Novolog scale Heart Failure (Check EF%) (AURA's, B-Block, Diuretics) Coreg, Lisinopril, NTG IV to PO Switch Home Meds Reviewed Home Meds Not Ordered Metformin, omeprazole (on IV Protonix) Comments Bnp negative, troponin's negative s/p CABG/stents MPI stress test on Wednesday04/24/19
[2019-04-22] MEDS: Gabapentin 300 MG CAP PO (19:17)
[2019-04-22] MEDS: Rosuvastatin 10 MG TAB 20 MG PO (19:18)
[2019-04-23] VITALS (52 sets, daily range): BP systolic 113–157; BP diastolic 47–82; PULSE 69–98; RESP 13–29; TEMP 36.4–36.7; O2SAT 96–99
--- NOTE | 2019-04-23 00:26 | NUR.NOTE ---
Pt and asking to have citalopram, lisinopril, topiramate changed to 1800 - please hold am dose of these meds and ask hospitalist to change order from daily 0830 to 1800 as pt normally takes these at dinnertime. Nursing Note:
[2019-04-23 07:08] LABS: Anion Gap 11.5 mmol/L (3-11); BUN 16 mg/dL (7-18); CO2 22.5 mmol/L (21.0-32.0); CREATININE 1.22 mg/dL (0.70-1.30); Calcium 9.2 mg/dL (8.5-10.1); Chloride 104 mmol/L (98-107); Cholesterol 84 mg/dL (50-200); Glucose 264 mg/dL (70-100); HDL Cholesterol 26 mg/dL (40-60); Magnesium 2.2 mg/dL (1.8-2.4); Potassium 3.7 mmol/L (3.5-5.1); Sodium 138 mmol/L (136-145); Triglyceride 363 mg/dL (30-150)
[2019-04-23 07:26] LABS: LDL CHOLESTEROL 28 mg/dL (<100)
[2019-04-23] MEDS: Allopurinol 300 MG TAB PO (07:42)
[2019-04-23] MEDS: Magnesium Oxide 400 MG TAB PO (07:42)
[2019-04-23] MEDS: Citalopram 20 MG TAB PO (07:43)
[2019-04-23] MEDS: Polyethylene Glycol 3350 17 GM PACKET PO (07:43)
[2019-04-23] MEDS: Topiramate 25 MG TAB 75 MG PO (07:43)
[2019-04-23] MEDS: Carvedilol 25 MG TAB PO ×2 (07:43→19:09)
[2019-04-23] MEDS: Docusate Sodium 100 MG CAP PO (07:43)
[2019-04-23] MEDS: Cholecalciferol (Vitamin D3) 1,000 UNIT TAB 1000 UNITS PO (07:43)
[2019-04-23] MEDS: Lisinopril 20 MG TAB PO (07:43)
[2019-04-23] MEDS: Insulin Aspart 300 UNITS/3 ML PEN SC ×4 (07:51→21:45)
[2019-04-23] MEDS: Levothyroxine 50 MCG TAB PO (08:23)
--- NOTE | 2019-04-23 08:29 | PGE_ITS ---
Date of Service Date of service: 04/23/19 Time of Service: 11:23 Assessment and Plan Assessment and plan (1) Chest pain: Status: Acute Assessment and plan: Troponins are negative, though the newest one is pending at this time. EKG is being repeated this morning as well - prior EKGs with nonspecific findings. Planned for cardiology consult, MPI stress test and echo tomorrow. Will continue to hold off antiplatelets unless we've proven that the chest pain is cardiac (read re risks of even baby asa in this patient below). Until then, continue PPI, prn nitroglycerin, monitor on tele. S/p GABG x2 in 2016 and cardiac cath in 2017 with both of the grafts patent and moderate disease in LAD (Diagonal 1 segment) and two 50% stenotic lesions in RCA. These were not felt to be responsible for his chest pain in 2017, and GI workup was recommended at that time. In 2018, the patient had to come off aspirin due to spontaneous R-sided subdural hematoma which reaccumulated, required 2 jaylin holes and a blood patch for CSF extravasation. Per [facility] neurology on whether or not antiplatelet therapy is safe to give in this patient. Dr Nugent of neurology feels that there has be to be compelling evidence that the chest pain is cardiac in origin because the risk of rebleeding is not zero, given the fact that the subdural hematoma was spontaneous. (2) Diabetes mellitus type 2 in obese: Status: Chronic Assessment and plan: Continue corrective scale, accuchecks to AC & HS, carb consistent diet. Add a small dose of long acting insulin. I was made aware of the patient requiring 100 units of levemir BID at home, but his blood glucoses so far while in the hospital have not needed much coverage at all, and he will be NPO after midnight. (3) Hyperlipidemia: Status: Chronic Assessment and plan: Better than at goal except for high triglycerides. Continue crestor, cod liver oil. (4) Coronary artery disease: Status: Chronic Assessment and plan: As above (5) Chronic subdural hematoma: Status: Chronic Assessment and plan: As above S/p spontaneous R-sided subdural hematoma in 2018 re reaccumulation, requiring 2 jaylin holes, and CSF leak requiring a blood patch. Benefits of antiplatelet therapy need to be weighed against the risks, which are substantial in this specific case as the etiology of the hematoma was spontaneous. (6) DVT prophylaxis: Status: Acute Assessment and plan: TEDs + SCDs Chemical DVT ppx is contraindicated due to h/o subdural hematoma. (7) Discharge planning issues: Status: Acute Assessment and plan: Full code Ok to transfer to medical surgical floor with telemetry if EKG/troponin are ok. Subjective Subjective Interval history since last seen: No CP overnight; this am, 6:30-7 am had L sided chest pressure 3/10, no associated symptoms. He felt this pain was different than the ones before so he declined nitro. Lasted 40 minutes. Feels it was from the way he slept and reproducible with palpation. Feels tired. Denies dizziness, shortness of breath, nausea/vomiting. Chest pain free now. Reports feeling constipated. Exam Narrative Exam Narrative: General: very pleasant elderly male, A&Ox3, Sitting at the edge of the bed, appears comfortable HEENT: EOMI, MMM Heart: RRR, no m/r/g; L sided chest wall tenderness noted on palpation (different than the original symptoms that brought the patient to the hospital). Lungs: CTAB GI: abdomen is soft, nontender, nondistended Extremities: no e/c/c BLE's Objective Objective Clinical Data: Abnormal lab results 04/23/19 Range/Units 06:30 Anion Gap 11.5 H (3-11) mmol/L Glucose 264 H D (70-100) mg/dL Triglycerides 363 H (30-150) mg/dL HDL Cholesterol 26 L (40-60) mg/dL Vital Signs Temperature 36.6 C 04/23/19 02:43 Temperature Source Tympanic 04/23/19 02:43 Pulse 82 04/23/19 04:00 Pulse 92 H 04/23/19 05:00 Respiratory Rate 22 04/23/19 05:00 Respiratory Effort 04/23/19 02:43 Respiratory Depth Normal 04/23/19 02:43 Respiratory Pattern Normal 04/23/19 02:43 Blood Pressure 119/61 04/23/19 04:00 Blood Pressure Mean 72 04/23/19 04:00 Blood Pressure Position Sitting 04/23/19 02:43 Pulse Oximetry 96 04/23/19 02:43 Oxygen Delivery Method Room Air 04/23/19 02:43 Oxygen Flow Rate 0 04/23/19 02:43 Pain Level 0 04/23/19 02:43 Comment 04/23/19 01:01 EDT Intake & Output 04/22/19 04/22/19 04/23/19 11:59 23:59 10:59 Intake Total 50 / 2780 2730 / 2780 200 / 200 Output Total 1300 / 2950 1650 / 2950 525 / 525 Balance -1250 / -170 1080 / -170 -325 / -325 Weight 90.1 kg 88.5 kg Intake: IV 530 / 530 Oral 50 / 2250 2200 / 2250 200 / 200 Output: Urine 1300 / 2950 1650 / 2950 525 / 525 Other: Urine Color Pale Yellow Pale Yellow Yellow Urine Appearance Clear Clear Clear Urine Odor None Normal Sweet Comment voids pale yellow urine to the urinal at his bedside. voids pale yellow urine to the urinal at his bedside. Pt requested pull-ups for dribbling. He had been stuffing papaer towels into his underwear tokeep the underwear dry. Pull-ups applied as requested. voided 300cc's of clear, light colored yellow urine with trace leukocytes and sg-1.010 Voiding Methods Urinal Urinal Urinal Laboratory Results WBC 5.23 k/cumm (4.4-10.8) 04/22/19 08:12 RBC 4.54 m/cumm (4.50-6.00) 04/22/19 08:12 Hgb 11.5 g/dL (13.5-17.5) L 04/22/19 08:12 Hct 34.8 % (40.0-50.0) L 04/22/19 08:12 MCV 76.7 fL (80-95) L 04/22/19 08:12 MCH 25.3 pg (27.0-33.0) L 04/22/19 08:12 MCHC 33.0 g/dL (32.0-36.0) 04/22/19 08:12 RDW 16.2 % (11.8-14.1) H 04/22/19 08:12 Plt Count 193 x1000/uL (130-400) 04/22/19 08:12 MPV 8.9 fL (8.0-11.0) 04/22/19 08:12 Immature Gran % 0.2 04/22/19 08:12 Neutrophils % 58.9 04/22/19 08:12 Lymphocytes % 27.3 04/22/19 08:12 Monocytes % 9.2 04/22/19 08:12 Eosinophils % 3.3 04/22/19 08:12 Basophils % 1.1 04/22/19 08:12 Absolute Neutrophils 3.08 k/cumm (1.2-6.7) 04/22/19 08:12 Absolute Lymphocytes 1.43 k/cumm (1.2-3.4) 04/22/19 08:12 Absolute Monocytes 0.48 k/cumm (0.11-0.7) 04/22/19 08:12 Absolute Eosinophils 0.17 k/cumm (0.0-0.7) 04/22/19 08:12 Absolute Basophils 0.06 k/cumm (0.0-0.2) 04/22/19 08:12 APTT 27.0 sec (21.0-31.4) 04/22/19 02:02 Sodium 138 mmol/L (136-145) 04/23/19 06:30 Potassium 3.7 mmol/L (3.5-5.1) 04/23/19 06:30 Chloride 104 mmol/L (98-107) 04/23/19 06:30 Carbon Dioxide 22.5 mmol/L (21.0-32.0) 04/23/19 06:30 Anion Gap 11.5 mmol/L (3-11) H 04/23/19 06:30 BUN 16 mg/dL (7-18) D 04/23/19 06:30 Creatinine 1.22 mg/dL (0.70-1.30) 04/23/19 06:30 Estimated GFR/1.73 m2 58.90 (mL/min/1.73m2) 04/23/19 06:30 Glucose 264 mg/dL (70-100) H D 04/23/19 06:30 Calcium 9.2 mg/dL (8.5-10.1) 04/23/19 06:30 Magnesium 2.2 mg/dL (1.8-2.4) 04/23/19 06:30 Total Bilirubin 0.3 mg/dL (0.2-1.0) 04/21/19 19:35 AST 16 U/L (15-37) 04/21/19 19:35 ALT 28 U/L (16-63) 04/21/19 19:35 Alkaline Phosphatase 79 U/L (46-116) 04/21/19 19:35 Troponin I < 0.05 ng/mL (0.00-0.06) 04/22/19 12:00 NT-Pro-B Natriuret Pep 103 pg/mL (-299) 04/21/19 19:35 Total Protein 7.4 g/dL (6.4-8.2) 04/21/19 19:35 Albumin 4.1 g/dL (3.4-5.0) 04/21/19 19:35 Triglycerides 363 mg/dL (30-150) H 04/23/19 06:30 Total Cholesterol 84 mg/dL (50-200) 04/23/19 06:30 LDL Cholesterol Direct 28 mg/dL (<100) 04/23/19 06:30 LDL Cholesterol, Calc Tnp mg/dL 04/23/19 06:30 HDL Cholesterol 26 mg/dL (40-60) L 04/23/19 06:30
[2019-04-23] MEDS: Gabapentin 100 MG CAP PO (10:55)
--- NOTE | 2019-04-23 11:28 | PDOC.CMPRO ---
- If Service Date Differs Date of service: 04/23/19 Time of Service: 11:29 Care Management Progress Note S/O: Fredo was lying in bed when CM met with him. He reported that he is feeling good today, although he had some slight chest pain this morning. He stated that he was hoping to be transferred to the MS floor today, but had not heard yet if that was happening. He reported that he had some testing scheduled for tomorrow. CM will continue to follow. A: Fredo is a 68 year old male admitted to [facility] on 04/22/2019 for Chest Pain. P: Anticipate Fredo will return home when medically cleared with no additional services. He will follow up with his PCP, as recommended. His , Brittany, will drive him home via private vehicle. CM will continue to offer support regarding discharge planning.
[2019-04-23 11:42] LABS: Troponin I < 0.05 ng/mL (0.00-0.06)
[2019-04-23] MEDS: Pantoprazole 40 MG VIAL IVP (11:59)
[2019-04-23] MEDS: Normal Saline Flush 10 ML SYR IVP (11:59)
[2019-04-23] MEDS: Bisacodyl 5 MG TABEC PO (12:06)
[2019-04-23] MEDS: Gabapentin 300 MG CAP PO (19:09)
[2019-04-23] MEDS: Rosuvastatin 10 MG TAB 20 MG PO (19:09)
[2019-04-23] MEDS: QUEtiapine 300 MG TAB PO (21:43)
[2019-04-23] MEDS: Insulin Glargine 300 UNITS/3 ML PEN SC (21:49)
[2019-04-24] VITALS (58 sets, daily range): BP systolic 103–130; BP diastolic 56–77; PULSE 65–101; RESP 12–27; TEMP 36.3–36.8; O2SAT 97–99
[2019-04-24 06:57] LABS: Anion Gap 10.3 mmol/L (3-11); BUN 17 mg/dL (7-18); CO2 20.7 mmol/L (21.0-32.0); CREATININE 1.27 mg/dL (0.70-1.30); Calcium 8.3 mg/dL (8.5-10.1); Chloride 106 mmol/L (98-107); Estimated GFR 56.23 (mL/min/1.73m2); Glucose 190 mg/dL (70-100); Magnesium 2.2 mg/dL (1.8-2.4); Potassium 3.7 mmol/L (3.5-5.1); Sodium 137 mmol/L (136-145)
[2019-04-24] MEDS: Cholecalciferol (Vitamin D3) 1,000 UNIT TAB 1000 UNITS PO (07:59)
[2019-04-24] MEDS: Magnesium Oxide 400 MG TAB PO (07:59)
[2019-04-24] MEDS: Carvedilol 25 MG TAB PO ×2 (07:59→19:20)
[2019-04-24] MEDS: Levothyroxine 50 MCG TAB PO (07:59)
[2019-04-24] MEDS: Allopurinol 300 MG TAB PO (07:59)
[2019-04-24] MEDS: Insulin Aspart 300 UNITS/3 ML PEN SC ×4 (08:00→21:34)
--- NOTE | 2019-04-24 08:00 | DI.NM_ITS ---
APPROVED REPORT Exam: Pharmacologic Patient Location: In-Patient Room/Bed: 221 Stress Nurse: Farzaneh Oshea RN BMI: 27.83 Indications: Chest pain. GI vs Angina. Medical History Medical History: Angina, CAD s/p CABG, CAD s/p stent, Carotid artery disease, Diabetic ??? Insulin, H yperlipidemia, Stroke/TIA Cardiac Medications: Topiramate. Rosuvastatin. Nitrogylcerin. Magnesium. Lisinopril. Carvedilol. Allergies: Amoxicillin. Penicillins. sulfamethoxazotrimethoprim Cardiac Risk Factors: HTN, Hyperlipidemia, Diabetes (insulin), Former Smoker, CVD Previous Cardiac Procedures: CABG Pretest Chest Pain Characteristics: Non-exertional Chest pain Physical Disabilities: Back Lung Sounds: Clear to auscultation Heart Sounds: Regular Stress Test Details Test: Pharmacologic stress testing performed using 0.4 mg of regadenoson per 5 mL given IV over 10 s econds. Reason for pharmacologic stress test: physical limitation. Nuclear Acquisition: Rest Tc-99m/Stress Tc-99m 1 day Rest Isotope: Tc-99m Sestamibi. Dose: 11.5 Date: 04/24/2019 Injection Time: 1000 Stress Isotope: Tc-99m Sestamibi. Dose: 37.0 Date: 04/24/2019 Injection Time: 1130 HR Max Heart Rate (APMHR): 151 bpm Resting HR Supine: 70 bpm Target HR (85% APMHR): 128 bpm Max HR Achieved: 89 bpm % of APMHR: 58 Recovery HR: 79 bpm BP Resting BP Supine: 122/70 mmHg Max BP: 130/70 mmHg Recovery BP: 130/70 mmHg ECG Resting ECG: Sinus Rhythm Stress ECG: Sinus Rhythm Time of Change: 01:15 Arrhythmia: None Clinical Exercise duration: min sec Stress ECG Conclusion 1. There is no evidence of inducible ischemia on the ECG portion of this exam. Test Summary Supine 70 122/70 1 min post injection 83 118/74 3 mins post injection 89 130/60 6 mins post injection 79 130/70 MPI Conclusion Ejection fraction was 52% with stress. There was no wall motion abnormality. There was no evidence of stress-induced ischemia. Compared to prior MPI stress test, there is no change.
--- NOTE | 2019-04-24 08:24 | W.PM.PROGNOT ---
Date of Service Date of service: 04/24/19 Time of Service: 15:46 Assessment and Plan Assessment and plan (1) Chest pain: Status: Acute Assessment and plan: Cardiac in description, but echo, MPI, Troponins are negative for ischemia. Discussed with Dr Pappas - will trial a long acting nitrate. Will keep overnight to ensure the patient can tolerate it. Will abstain from antiplatelets. Continue PPI, prn nitroglycerin, monitor on tele. S/p GABG x2 in 2016 and cardiac cath in 2017 with both of the grafts patent and moderate disease in LAD (Diagonal 1 segment) and two 50% stenotic lesions in RCA. These were not felt to be responsible for his chest pain in 2017, and GI workup was recommended at that time. In 2018, the patient had to come off aspirin due to spontaneous R-sided subdural hematoma which reaccumulated, required 2 jaylin holes and a blood patch for CSF extravasation. Per [facility] [place] on whether or not antiplatelet therapy is safe to give in this patient, Dr Nuegnt of neurology feels that there has be to be compelling evidence that the chest pain is cardiac in origin because the risk of rebleeding is not zero, given the fact that the subdural hematoma was spontaneous. (2) Diabetes mellitus type 2 in obese: Status: Chronic Assessment and plan: Continue corrective scale, long acting insulin, carb consistent diet. (3) Hyperlipidemia: Status: Chronic Assessment and plan: Better than at goal except for high triglycerides. Continue crestor, cod liver oil. (4) Coronary artery disease: Status: Chronic Assessment and plan: As above (5) Chronic subdural hematoma: Status: Chronic Assessment and plan: As above S/p spontaneous R-sided subdural hematoma in 2018 re reaccumulation, requiring 2 jaylin holes, and CSF leak requiring a blood patch. Benefits of antiplatelet therapy need to be weighed against the risks, which are substantial in this specific case as the etiology of the hematoma was spontaneous. (6) DVT prophylaxis: Status: Acute Assessment and plan: TEDs + SCDs Chemical DVT ppx is contraindicated due to h/o subdural hematoma. (7) Discharge planning issues: Status: Acute Assessment and plan: Full code Planned for discharge home tomorrow Subjective Subjective Interval history since last seen: S/p MPI/echo today. Per cardiology, the description of pain is consistent with cardiac, but the risks of antiplatelet therapy do outweigh the benefits, and therefore a long acting nitrate is being recommended. The patient just got a dose of 30 mg of imdur - reports feeling dizzy, but he also got ultram at the same time, which makes him dizzy. Denies chest pain over the last 24 hours, shortness of breath, nausea, vomiting. Exam Narrative Exam Narrative: General: very pleasant elderly male, A&Ox3, laying comfortably in bed HEENT: EOMI, MMM Heart: RRR, slight JAMIA Lungs: CTAB GI: abdomen is soft, nontender, nondistended Extremities: no e/c/c BLE's Objective Objective Clinical Data: Abnormal lab results 04/24/19 Range/Units 06:20 Carbon Dioxide 20.7 L (21.0-32.0) mmol/L Glucose 190 H (70-100) mg/dL Calcium 8.3 L (8.5-10.1) mg/dL Vital Signs Temperature 36.6 C 04/23/19 23:30 Temperature Source Tympanic 04/23/19 23:30 Pulse 100 H 04/24/19 06:59 Pulse Rhythm Regular 04/23/19 23:30 Pulse 88 04/24/19 02:31 Respiratory Rate 26 H 04/24/19 02:31 Respiratory Effort 04/23/19 23:30 Respiratory Depth Normal 04/23/19 23:30 Respiratory Pattern Normal 04/23/19 23:30 Blood Pressure 123/77 04/24/19 02:30 Blood Pressure Mean 87 04/24/19 02:30 Blood Pressure Position Sitting 04/23/19 12:12 Pulse Oximetry 97 04/23/19 23:30 Oxygen Delivery Method Room Air 04/23/19 23:30 Oxygen Flow Rate 0 04/23/19 23:30 Pain Level 0 04/23/19 23:30 Comment 04/23/19 01:01 EDT Intake & Output 04/23/19 04/23/19 04/24/19 11:59 23:59 11:59 Intake Total 1800 / 2500 Output Total 3235 / 4085 500 / 500 Balance -1435 / -1585 -500 / -500 Weight 88 kg Intake: Oral 1800 / 2500 Output: Urine 3235 / 4085 500 / 500 Other: Urine Color Yellow Yellow Urine Appearance Clear Clear Urine Odor None None Comment Voiding Methods Urinal Urinal Laboratory Results WBC 5.23 k/cumm (4.4-10.8) 04/22/19 08:12 RBC 4.54 m/cumm (4.50-6.00) 04/22/19 08:12 Hgb 11.5 g/dL (13.5-17.5) L 04/22/19 08:12 Hct 34.8 % (40.0-50.0) L 04/22/19 08:12 MCV 76.7 fL (80-95) L 04/22/19 08:12 MCH 25.3 pg (27.0-33.0) L 04/22/19 08:12 MCHC 33.0 g/dL (32.0-36.0) 04/22/19 08:12 RDW 16.2 % (11.8-14.1) H 04/22/19 08:12 Plt Count 193 x1000/uL (130-400) 04/22/19 08:12 MPV 8.9 fL (8.0-11.0) 04/22/19 08:12 Immature Gran % 0.2 04/22/19 08:12 Neutrophils % 58.9 04/22/19 08:12 Lymphocytes % 27.3 04/22/19 08:12 Monocytes % 9.2 04/22/19 08:12 Eosinophils % 3.3 04/22/19 08:12 Basophils % 1.1 04/22/19 08:12 Absolute Neutrophils 3.08 k/cumm (1.2-6.7) 04/22/19 08:12 Absolute Lymphocytes 1.43 k/cumm (1.2-3.4) 04/22/19 08:12 Absolute Monocytes 0.48 k/cumm (0.11-0.7) 04/22/19 08:12 Absolute Eosinophils 0.17 k/cumm (0.0-0.7) 04/22/19 08:12 Absolute Basophils 0.06 k/cumm (0.0-0.2) 04/22/19 08:12 APTT 27.0 sec (21.0-31.4) 04/22/19 02:02 Sodium 137 mmol/L (136-145) 04/24/19 06:20 Potassium 3.7 mmol/L (3.5-5.1) 04/24/19 06:20 Chloride 106 mmol/L (98-107) 04/24/19 06:20 Carbon Dioxide 20.7 mmol/L (21.0-32.0) L 04/24/19 06:20 Anion Gap 10.3 mmol/L (3-11) 04/24/19 06:20 BUN 17 mg/dL (7-18) 04/24/19 06:20 Creatinine 1.27 mg/dL (0.70-1.30) 04/24/19 06:20 Estimated GFR/1.73 m2 56.23 (mL/min/1.73m2) 04/24/19 06:20 Glucose 190 mg/dL (70-100) H 04/24/19 06:20 Calcium 8.3 mg/dL (8.5-10.1) L 04/24/19 06:20 Magnesium 2.2 mg/dL (1.8-2.4) 04/24/19 06:20 Total Bilirubin 0.3 mg/dL (0.2-1.0) 04/21/19 19:35 AST 16 U/L (15-37) 04/21/19 19:35 ALT 28 U/L (16-63) 04/21/19 19:35 Alkaline Phosphatase 79 U/L (46-116) 04/21/19 19:35 Troponin I < 0.05 ng/mL (0.00-0.06) 04/23/19 11:12 NT-Pro-B Natriuret Pep 103 pg/mL (-299) 04/21/19 19:35 Total Protein 7.4 g/dL (6.4-8.2) 04/21/19 19:35 Albumin 4.1 g/dL (3.4-5.0) 04/21/19 19:35 Triglycerides 363 mg/dL (30-150) H 04/23/19 06:30 Total Cholesterol 84 mg/dL (50-200) 04/23/19 06:30 LDL Cholesterol Direct 28 mg/dL (<100) 04/23/19 06:30 LDL Cholesterol, Calc Tnp mg/dL 04/23/19 06:30 HDL Cholesterol 26 mg/dL (40-60) L 04/23/19 06:30 MPI: Ejection fraction was 52% with stress. There was no wall motion abnormality. There was no evidence of stress-induced ischemia. Compared to prior MPI stress test, there is no change. Echo; Left Ventricle : The left ventricle is normal size. The left ventricular systolic function is normal. There is normal LV segmental wall motion. LVEF is 55-59%. Right Ventricle : The right ventricle is normal size. The right ventricular systolic function is normal. Left Ventricle : The left ventricular diastolic function is normal. Atria : The left atrium size is normal. The right atrium size is normal. Aortic Valve : Aortic valve is trileaflet. Aortic valve leaflets are sclerotic but open well. There is no aortic valvular stenosis. Mild aortic regurgitation. Mitral Valve : Mitral valve leaflets are thickened. Normal mitral valve excursion. Mild to moderate mitral regurgitation. Tricuspid Valve : Tricuspid valve leaflets are thickened but open well. Mild tricuspid regurgitation. Pulmonic Valve : The pulmonary valve is normal in structure. Great Vessels : IVC is normal in size and collapses >50% with inspiration. RVSP is estimated to be between 24-30 mmHg. Compared to prior echocardiogram dated 12/19/2015 there is no significant change
--- NOTE | 2019-04-24 09:00 | DI.US_ITS ---
APPROVED REPORT Conclusion Left Ventricle : The left ventricle is normal size. The left ventricular systolic function is normal . There is normal LV segmental wall motion. LVEF is 55-59%. Right Ventricle : The right ventricle is normal size. The right ventricular systolic function is norm al. Left Ventricle : The left ventricular diastolic function is normal. Atria : The left atrium size is normal. The right atrium size is normal. Aortic Valve : Aortic valve is trileaflet. Aortic valve leaflets are sclerotic but open well. There i s no aortic valvular stenosis. Mild aortic regurgitation. Mitral Valve : Mitral valve leaflets are thickened. Normal mitral valve excursion. Mild to moderate m itral regurgitation. Tricuspid Valve : Tricuspid valve leaflets are thickened but open well. Mild tricuspid regurgitation. Pulmonic Valve : The pulmonary valve is normal in structure. Great Vessels : IVC is normal in size and collapses >50% with inspiration. RVSP is estimated to be b etween 24-30 mmHg. Compared to prior echocardiogram dated 12/19/2015 there is no significant change. EXAM: Comprehensive 2D, Doppler, and color-flow Echocardiogram Patient Location: In-Patient Transformer Stock Clerk: VANDANA Deluna (AE) Rhythm: NSR Indications: chest pain. concern for wall motion abnormalities Left Ventricle The left ventricle is normal size. The left ventricular systolic function is normal. There is normal left ventricular wall thickness. The posterior wall thickness is mildly increased. The septum is norm al. There is normal LV segmental wall motion. The left ventricular diastolic function is normal. LVEF is 55-59%. Right Ventricle The right ventricle is normal size. The right ventricular systolic function is normal. Atria The left atrium size is normal. The right atrium size is normal. Aortic Valve Aortic valve is trileaflet. Aortic valve leaflets are sclerotic but open well. There is no aortic michelle vular stenosis. Mild aortic regurgitation. Mitral Valve Mitral valve leaflets are thickened. Normal mitral valve excursion. Mild to moderate mitral regurgita tion. Tricuspid Valve Tricuspid valve leaflets are thickened but open well. There is no tricuspid valve stenosis. Mild tric uspid regurgitation. Pulmonic Valve The pulmonary valve is normal in structure. There is no pulmonic valvular regurgitation. Great Vessels Aortic root is mildly dilated. IVC is normal in size and collapses >50% with inspiration. RVSP is est imated to be between 24-30 mmHg Pericardium There is no pericardial effusion. 2D Dimensions IVSd 1.10 cm M: 0.6-1.2 LV EDV A2C 56.50 mL PWd 1.11 cm M: 0.6 - 1.2 LV EDV A4C 64.30 mL LVDd 4.16 cm M: 4.2 - 5.9 LA Volume Index A2C 9.01 mL/m2 LVDs 2.76 cm M: 2.5 - 4.0 LA Volume Index A4C 26.97 mL/m2 Aortic Root 3.82 cm M: 3.1 - 3.7 LA Volume Index Biplane 16.34 mL/m2 RA Area A4C 12.26 cm2 LA Area A4C 17.69 cm2 LVOT 1.94 cm (M/F) 1.5-2.5 LA Area A2C 10.72 cm2 Ascending Aorta 3.69 cm M: 2.6 - 3.4 EF AP4 54.12 % LVEF (Teich) 62.87 % EF AP2 58.76 % LVEF ([facility]) 56.66 % M: 52 - 72 EF BP 56.66 % LV Volume 51.67 mL M: 62 - 150 LV Volume Index 25.08 mL/m2 M: 34 - 74 FS 33.65 % LV Diastology E Decel Time 291.00 (160-240 msec) E/A Ratio 0.80 MED E' 0.05 (>0.07 m/s) LV E/e MED 11.89 (<14) LAT E' 0.06 (>0.1 m/s) LV E/e LAT 10.43 (<14) Aortic Valve LVOT Area 2.97 cm2 LVOT Peak Shemar. 0.91 m/s LVOT Mean Shemar. 0.64 m/s LVOT Peak Gr. 3.33 mmHg EVELYNE Vmax Index 1.17 cm2/m2 LVOT Mean Gr. 1.85 mmHg LVOT VTI 0.16 m EVELYNE Mean Shemar. Index 1.06 cm2/m2 AoV Peak Shemar. 1.12 (0.5-1.3 m/s) AoV Mean Shemar. 0.87 m/s AO Peak GR. 5.06 mmHg AO Mean GR. 3.16 (<5 mmHg) AO VTI 0.26 (0.18-0.25 m) EVELYNE (VTI) 1.91 (2.5-4.5 cm2) EVELYNE (VTI) Index 0.92 cm/m2 Mitral Valve MV E Max Shemar. 0.59 (0.4-1.3 m/s) MVA VTI 3.30 (4.0-6.0 cm2) MV A Velocity 0.73 (0.4-1.3 m/s) E/A Ratio 0.81 MV Decel. Time 290.89 (160-240 msec) MV Regurg Volume 54.29 mL MV PHT 84.36 msec MV RF 52.69 % MVA PHT 2.61 cm2 Tricuspid Valve TR P. Velocity 2.46 m/s TV Regurg Vmax 2.46 m/s TR P. Gradient 24.22 mmHg
--- NOTE | 2019-04-24 09:28 | PDOC.CMPRO ---
Care Management Progress Note S/O: Fredo remains ICU level of care, anticipate he will transfer to M/S status today. He had an ECHO and cardiology consult today to inform treatment needs. CM will continue to follow. A: Fredo is a 68 year old male admitted to [facility] on 04/22/2019 for Chest Pain. P: Anticipate Fredo will return home when medically cleared with no additional services. He will follow up with his PCP, as recommended. His , Brittany, will drive him home via private vehicle. CM will continue to offer support regarding discharge planning.
[2019-04-24] MEDS: Gabapentin 100 MG CAP PO (10:25)
[2019-04-24] MEDS: Regadenoson 0.4 MG/5 ML SYR IVP (12:17)
[2019-04-24] MEDS: Pantoprazole 40 MG VIAL IVP (12:41)
[2019-04-24] MEDS: Normal Saline Flush 10 ML SYR IVP ×2 (12:43→19:19)
[2019-04-24] MEDS: Acetaminophen 325 MG TAB 650 MG PO (12:50)
[2019-04-24] MEDS: traMADol 50 MG TAB PO (14:35)
--- NOTE | 2019-04-24 14:43 | CCONE_ITS ---
Assessment and Plan Assessment and plan (1) CAD (coronary artery disease): Status: None Assessment and plan: 1. Chest pain: The patient's story is fairly typical in nature and given his significant coronary history it certainly could represent cardiac chest pain. Unfortunately for him he has had major intracranial bleeding on antiplatelet and anticoagulant therapy and is therefore at a very high risk for any sort of blood thinning agents. His echocardiogram is unchanged from baseline. His myocardial perfusion study did not show any significant areas of inducible ischemia. Given the balance between helping and doing harm, I think that we should stay away from any blood thinning agents or antiplatelet medication at this time. The patient may benefit from a long-acting nitrate and therefore 30 mg of Imdur should be trialed on him. I spoke at length with the who is the primary spiritual advisor of the patient about how we should have a very long leash prior to ever starting antiplatelet/anticoagulation and going to the Assistant Shift Supervisor as there is significant chance of harm outweighing the benefits. The patient should continue his home carvedilol, lisinopril and begin a trial of Imdur. Thank you for this consult please contact cardiology with any additional questions. History of Present Illness History of Present Illness Chief Complaint: chest pain Narrative: Mr. Osman is a 68-year-old male with past medical history significant for CABG in 2016, intracranial hemorrhage requiring bur hole who presents with stuttering chest pain with radiation to his left arm. The patient states with the help of his that for the past few days he has had on and off substernal chest pain that comes on at rest. It is partially relieved by nitroglycerin. The pain has been increasing in frequency and then radiated to his left arm. That change in frequency made them concerned and therefore they came to the emergency room. He denies diaphoresis or shortness of breath with the pain. Troponins were negative and EKG was unchanged from baseline. Stress test and echocardiogram ordered today did not show any inducible ischemia or wall motion abnormalities. Patient has had no arrhythmias on telemetry. Cardiology was consulted today to discuss the use of antiplatelet medication and anticoagulation in a patient that is at such high bleeding risk. Review of Systems All systems reviewed & are unremarkable except as noted in HPI and below PFSH Medical History CAD (coronary artery disease) Chronic low back pain Chronic subdural hematoma (Chronic) Colon polyps Depression Diastasis recti DM type 2 (diabetes mellitus, type 2) Fatty liver GERD (gastroesophageal reflux disease) Gout H/O alcohol abuse Headaches due to 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 Hx of deep venous thrombosis Hyperlipidemia Hypertension Hypothyroidism MRSA infection Obstructive sleep apnea Pituitary abnormality (Acute) Right sided weakness (Acute) Urethral stricture Vitamin D deficiency Surgical History Appendectomy (06/01/16) Colonoscopy - MAC 2010-5year f/u 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 electroconvulsive therapy Extraction of cataract facial lesion removal Repair of inguinal hernia (08/05/17) right inguinal hernia repair by Dr Arroyo on 08/05/17 Repair of umbilical hernia Social History Smoking/Tobacco Use Status: Never Alcohol Intake: never Drug use: Never Substance use type: does not use Household members: spouse Housing: house Pets and animals: Yes Pets and animals: dog(s) Do you feel safe at home: Yes Do you feel safe in your relationship?: Yes Exam Const General: comfortable and no acute distress HENMT Head: normocephalic and atraumatic Eyes General: appearance normal, both eyes and all related structures Resp Effort & Inspection: normal respiratory effort Auscultation: clear to auscultation bilaterally Cardio Jugular venous pressure: no JVD Palpation: normal PMI Rate: regular rate Rhythm: regular rhythm Heart Sounds: S1 normal and S2 normal (No Murmurs, Rubs or Gallops) GI Palpation: soft Auscultation: normoactive bowel sounds Skin General skin exam: no rashes or lesions noted Extrem General: normal to inspection and no clubbing, cyanosis or edema Psych Appearance: grossly normal Results Last Vital Signs Temp 36.3 C L 04/24/19 12:34 Pulse 72 04/24/19 12:35 Resp 18 04/24/19 13:00 BP 120/69 04/24/19 12:35 Pulse Ox 99 04/24/19 12:34 Labs Result diagrams: 04/22/19 08:12 04/24/19 06:20 Labs: Laboratory Results - last 24 hr 04/24/19 06:20 Sodium 137 Potassium 3.7 Chloride 106 Carbon Dioxide 20.7 L Anion Gap 10.3 BUN 17 Creatinine 1.27 Estimated GFR/1.73 m2 56.23 Glucose 190 H Calcium 8.3 L Magnesium 2.2
[2019-04-24] MEDS: Isosorbide Mononitrate 30 MG TABCR PO (15:01)
[2019-04-24] MEDS: Polyethylene Glycol 3350 17 GM PACKET PO (16:09)
[2019-04-24] MEDS: Docusate Sodium 100 MG CAP PO (16:09)
[2019-04-24] MEDS: Bisacodyl 5 MG TABEC PO (16:09)
[2019-04-24] MEDS: Citalopram 20 MG TAB PO (19:16)
[2019-04-24] MEDS: Lisinopril 20 MG TAB PO (19:16)
[2019-04-24] MEDS: Rosuvastatin 10 MG TAB 20 MG PO (19:17)
[2019-04-24] MEDS: Topiramate 25 MG TAB 75 MG PO (19:17)
[2019-04-24] MEDS: Gabapentin 300 MG CAP PO (19:17)
[2019-04-24] MEDS: Insulin Glargine 300 UNITS/3 ML PEN SC (21:33)
[2019-04-24] MEDS: QUEtiapine 300 MG TAB PO (21:38)
[2019-04-25] VITALS (14 sets, daily range): BP systolic 104–118; BP diastolic 53–58; PULSE 71–86; RESP 11–32; TEMP 36.2; O2SAT 95–100
[2019-04-25] MEDS: traMADol 50 MG TAB PO (02:33)
[2019-04-25] MEDS: Levothyroxine 50 MCG TAB PO (08:11)
[2019-04-25] MEDS: Insulin Aspart 300 UNITS/3 ML PEN SC ×2 (08:11→11:56)
--- NOTE | 2019-04-25 08:25 | W.PM.PROGNOT ---
Subjective Subjective Interval history since last seen: No CP overnight; BP this morning is 104/53. Objective Objective Clinical Data: Vital Signs Temperature 36.8 C 04/24/19 20:43 Temperature Source Temporal Artery Scan 04/24/19 20:43 Pulse 71 04/25/19 00:11 Pulse Rhythm Regular 04/24/19 23:52 Pulse 79 04/25/19 06:00 Respiratory Rate 11 L 04/25/19 06:00 Respiratory Effort Non-Labored 04/24/19 23:52 Respiratory Depth Normal 04/24/19 23:52 Respiratory Pattern Normal 04/24/19 23:52 Blood Pressure 110/62 04/24/19 23:18 Blood Pressure Mean 74 04/24/19 23:18 Blood Pressure Position Sitting 04/23/19 12:12 Pulse Oximetry 99 04/24/19 12:34 Oxygen Delivery Method Room Air 04/24/19 16:00 Oxygen Flow Rate 0 04/24/19 16:00 Pain Level 0 04/24/19 20:43 Comment 04/24/19 12:34 Intake & Output 04/24/19 04/24/19 04/25/19 11:59 23:59 11:59 Intake Total 160 / 3580 3420 / 3580 240 / 240 Output Total 875 / 2375 1500 / 2375 500 / 500 Balance -715 / 1205 1920 / 1205 -260 / -260 Weight 88 kg 88 kg Intake: IV 20 30 Oral 150 / 3550 3400 / 3550 240 / 240 Output: Urine 875 / 2375 1500 / 2375 500 / 500 Other: Urine Color Yellow Yellow Yellow Urine Appearance Clear Clear Clear Urine Odor None Normal Normal Comment Pt wearing an incont. pant, reports that he has trouble with leakage. 3 voids Stool Size Small Stool Characteristics Soft Formed Voiding Methods Urinal Urinal Urinal Laboratory Results WBC 5.23 k/cumm (4.4-10.8) 04/22/19 08:12 RBC 4.54 m/cumm (4.50-6.00) 04/22/19 08:12 Hgb 11.5 g/dL (13.5-17.5) L 04/22/19 08:12 Hct 34.8 % (40.0-50.0) L 04/22/19 08:12 MCV 76.7 fL (80-95) L 04/22/19 08:12 MCH 25.3 pg (27.0-33.0) L 04/22/19 08:12 MCHC 33.0 g/dL (32.0-36.0) 04/22/19 08:12 RDW 16.2 % (11.8-14.1) H 04/22/19 08:12 Plt Count 193 x1000/uL (130-400) 04/22/19 08:12 MPV 8.9 fL (8.0-11.0) 04/22/19 08:12 Immature Gran % 0.2 04/22/19 08:12 Neutrophils % 58.9 04/22/19 08:12 Lymphocytes % 27.3 04/22/19 08:12 Monocytes % 9.2 04/22/19 08:12 Eosinophils % 3.3 04/22/19 08:12 Basophils % 1.1 04/22/19 08:12 Absolute Neutrophils 3.08 k/cumm (1.2-6.7) 04/22/19 08:12 Absolute Lymphocytes 1.43 k/cumm (1.2-3.4) 04/22/19 08:12 Absolute Monocytes 0.48 k/cumm (0.11-0.7) 04/22/19 08:12 Absolute Eosinophils 0.17 k/cumm (0.0-0.7) 04/22/19 08:12 Absolute Basophils 0.06 k/cumm (0.0-0.2) 04/22/19 08:12 APTT 27.0 sec (21.0-31.4) 04/22/19 02:02 Sodium 137 mmol/L (136-145) 04/24/19 06:20 Potassium 3.7 mmol/L (3.5-5.1) 04/24/19 06:20 Chloride 106 mmol/L (98-107) 04/24/19 06:20 Carbon Dioxide 20.7 mmol/L (21.0-32.0) L 04/24/19 06:20 Anion Gap 10.3 mmol/L (3-11) 04/24/19 06:20 BUN 17 mg/dL (7-18) 04/24/19 06:20 Creatinine 1.27 mg/dL (0.70-1.30) 04/24/19 06:20 Estimated GFR/1.73 m2 56.23 (mL/min/1.73m2) 04/24/19 06:20 Glucose 190 mg/dL (70-100) H 04/24/19 06:20 Calcium 8.3 mg/dL (8.5-10.1) L 04/24/19 06:20 Magnesium 2.2 mg/dL (1.8-2.4) 04/24/19 06:20 Total Bilirubin 0.3 mg/dL (0.2-1.0) 04/21/19 19:35 AST 16 U/L (15-37) 04/21/19 19:35 ALT 28 U/L (16-63) 04/21/19 19:35 Alkaline Phosphatase 79 U/L (46-116) 04/21/19 19:35 Troponin I < 0.05 ng/mL (0.00-0.06) 04/23/19 11:12 NT-Pro-B Natriuret Pep 103 pg/mL (-299) 04/21/19 19:35 Total Protein 7.4 g/dL (6.4-8.2) 04/21/19 19:35 Albumin 4.1 g/dL (3.4-5.0) 04/21/19 19:35 Triglycerides 363 mg/dL (30-150) H 04/23/19 06:30 Total Cholesterol 84 mg/dL (50-200) 04/23/19 06:30 LDL Cholesterol Direct 28 mg/dL (<100) 04/23/19 06:30 LDL Cholesterol, Calc Tnp mg/dL 04/23/19 06:30 HDL Cholesterol 26 mg/dL (40-60) L 04/23/19 06:30
[2019-04-25] MEDS: Allopurinol 300 MG TAB PO (09:20)
[2019-04-25] MEDS: Cholecalciferol (Vitamin D3) 1,000 UNIT TAB 1000 UNITS PO (09:21)
[2019-04-25] MEDS: Carvedilol 25 MG TAB PO (09:21)
[2019-04-25] MEDS: Magnesium Oxide 400 MG TAB PO (09:21)
[2019-04-25] MEDS: Gabapentin 100 MG CAP PO (09:21)
[2019-04-25] MEDS: Bisacodyl 5 MG TABEC PO (09:31)
[2019-04-25] MEDS: Docusate Sodium 100 MG CAP PO (09:31)
[2019-04-25] MEDS: Polyethylene Glycol 3350 17 GM PACKET PO (09:34)
--- NOTE | 2019-04-25 12:13 | DSE_ITS ---
Date of service: 04/25/19 Time of Service: 12:14 DS: Diagnosis Discharge Diagnosis (1) Chest pain: Status: Acute (2) Diabetes mellitus type 2 in obese: Status: Chronic Asessment and Plan: cardiac by description; however, negative MPI on this admission. (3) Hyperlipidemia: Status: Chronic (4) Coronary artery disease: Status: Chronic (5) Chronic subdural hematoma: Status: Chronic Discharge Plan Disposition Patient Disposition: HOME Condition: Stable Discharge Details Chief Complaint: Chest Pain Clinical Impression: Chest pain Reason For Visit: CHEST PAIN Admit Date/Time: 04/23/19 10:08 Admit Provider: Sergio Nguyen Attending Provider: Sergio Nguyen Primary Care Provider: Alisa Ramirez ED Provider: Ami Bassett Hospital Course Hospital Course: Mr Osman is a 68 year old male with PMHx s/p CABG x2, not on antiplatelet therapy due to recurrent spontaneous subdural hematomas in 2018, as well as IDDM2, and hypertension, who was admitted to [facility] ICU on 04/22/19 with chest pain with radiation to left arm, relieved with nitroglycerin. Similar pain recurred here. The concern was that the patient was having unstable angina. The patient had negative troponins, nonspecific changes on the EKG, a negative MPI and an echo which revealed no wall motion abnormalities. He had no arrhythmic events on telemetry. He was evaluated by cardiology, and Dr Pappas felt, as did the hospitalist team, that the patient's chest pain was cardiac in description. The case was discussed with Neurology at [facility] - because the nature of the patient's subdural hematomas in 2018 was spontaneous, it was felt that there was significant risk to initiating antiplatelet therapy unless there was proof that the pain was cardiac in origin. Because objective data in this case was negative for ischemia, the decision was made to initiate the patient on long acting nitrate. The patient tolerated addition of imdur 30 mg PO daily to his regimen without any side effects and is being discharged home on this therapy. He will need to follow up with cardiology as outpatient. Additionally, it is felt that the patient's diabetes regimen could use adjustment. The patient is on levemir 100 mg SC BID at home - and does not regularly monitor his sugars during the day. He is also on metformin 1,000 mg PO BID, and glimepiride 4 mg PO daily. While at the hospital, his insulin requirements have not been nearly those reflected in above doses, and his oral hypoglycemics were on hold. A1C is pending at the time of this discharge summary being written, but it is felt that perhaps the patient's diet at home could use improvement, and his regimen should be reassessed. The patient does not check his blood sugars throughout the day at home. 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 The patient is medically stable for discharge home today. The care for patient and completion of his discharge paperwork on the day of discharge took 45 minutes. Home Meds and New Rx's Prescriptions: New pantoprazole [Protonix] 40 mg tablet,delayed release (DR/EC) 40 mg PO DAILY Qty: 30 RF: 0 isosorbide mononitrate 30 mg tablet extended release 24 hr 30 mg PO DAILY@1400 Qty: 30 RF: 0 Continued gabapentin 100 mg capsule 100 mg PO QHS RF: 0 acetylcysteine [NAC] 600 mg capsule 600 mg PO BID RF: 0 cod liver oil Capsule 1 cap PO DAILY RF: 0 Refresh Tears 0.5 % drops 1 drp OP 4-6XD PRNRF: 0 bisacodyl [Dulcolax (bisacodyl)] 5 mg tablet,delayed release (DR/EC) 5 mg PO DAILY PRNRF: 0 tramadol 50 mg tablet 50 mg PO DAILY MDD 1 tablet/day PRN (Reason: pain) 30 Days Qty: 30 RF: 0 polyethylene glycol 3350 [Miralax] 17 GM powder in packet 17 g PO DAILY PRNQty: 255 RF: 0 nitroglycerin [Nitrostat] 0.4 MG tablet, sublingual 0.4 mg Sublingual as directed RF: 0 docusate sodium [Dulcolax Stool Softener (dss)] 100 MG capsule 100 mg PO DAILY PRNRF: 0 Levemir FlexTouch U-100 Insuln 100 UNIT/1 ML insulin pen 100 units subcut BID RF: 0 lisinopril 20 MG tablet 20 mg PO DAILY RF: 0 carvedilol 25 MG tablet 25 mg PO BID Qty: 120 RF: 4 riboflavin (vitamin B2) [Vitamin B-2] 100 mg tablet 400 mg PO DAILY RF: 0 topiramate [Topamax] 25 mg capsule, sprinkle 75 mg PO DAILY RF: 0 levothyroxine 50 MCG tablet 50 mcg PO DAILY@0730 RF: 0 allopurinol 300 MG tablet 300 mg PO DAILY RF: 0 quetiapine [Seroquel] 300 MG tablet 300 mg PO HS RF: 0 rosuvastatin [Crestor] 20 MG tablet 20 mg PO HS RF: 0 metformin [Glucophage] 1,000 mg Tablet 1,000 mg PO BID RF: 0 citalopram 10 mg tablet 20 mg PO DAILY RF: 0 glimepiride [Amaryl] 4 MG tablet 4 mg PO DAILY@0800 RF: 0 acetaminophen [Tylenol] 325 MG tablet 2 tab PO Q4H PRN PRNRF: 0 gabapentin 300 mg capsule 300 mg PO HS RF: 0 magnesium oxide 400 mg Capsule 400 mg PO DAILY RF: 0 cholecalciferol (vitamin D3) [Vitamin D3] 1,000 unit Tablet 1,000 unit PO DAILY RF: 0 Discontinued Prilosec OTC 20 mg Tablet,Delayed Release (Dr/Ec) 20 mg PO DAILY RF: 0 Discharge Instructions Instructions: Isosorbide Mononitrate (By mouth) Additional Instructions: Return to the hospital with any fever, bleeding, chest pain, shortness of breath. Follow up with your PCP, endocrinology at [facility], cardiology. Referrals: ENDOCRINOLOGY,[facility] [OTHER] - (Diabetes management) Alisa Ramirez MD [Primary Care Provider] - Sergio Pappas MD [MD CONSULTING PHYSICIAN] - Activity:: Activity as Tolerated Equipment/Supplies:: No Equipment Needed Diet:: Carb Counting Discharge Orders Discharge Orders: Discharge Order (Routine); Ordered 04/25/19 Ordered By: Anette Duarte DS: Summary Status at Discharge Functional status at discharge: independent ambulation Overall status at discharge: patient is back to baseline Mental Status: mental status grossly normal Speech and Movement: speech and movement normal Mood: congruent mood Affect: normal affect Exam Narrative Exam Narrative: General: very pleasant elderly male, A&Ox3, Sitting up in a chair eating lunch HEENT: EOMI, MMM Heart: RRR, slight JAIMA Lungs: CTAB GI: abdomen is soft, nontender, nondistended Extremities: no e/c/c BLE's Psych Mental Status: mental status grossly normal Speech and Movement: speech and movement normal Mood: congruent mood Affect: normal affect DS: Data Vitals/I&O Vitals and I&O: Vital Signs Temperature 36.2 C L 04/25/19 11:35 Temperature Source Temporal Artery Scan 04/25/19 11:35 Pulse 76 04/25/19 11:51 Pulse Rhythm Regular 04/25/19 07:58 Pulse 77 04/25/19 11:51 Respiratory Rate 15 04/25/19 11:51 Respiratory Effort Non-Labored 04/25/19 07:58 Respiratory Depth Normal 04/25/19 07:58 Respiratory Pattern Normal 04/25/19 07:58 Blood Pressure 111/57 L 04/25/19 11:51 Blood Pressure Mean 68 04/25/19 11:51 Blood Pressure Position Sitting 04/23/19 12:12 Pulse Oximetry 97 04/25/19 11:35 Oxygen Delivery Method Room Air 04/25/19 11:35 Oxygen Flow Rate 0 04/25/19 11:35 Pain Level 0 04/25/19 11:35 Comment 04/24/19 12:34 Intake & Output 04/24/19 04/25/19 04/25/19 23:59 11:59 23:59 Intake Total 3420 / 3580 960 / 960 Output Total 1500 / 2375 500 / 500 Balance 1920 / 1205 460 / 460 Weight 88 kg Intake: IV 20 / 30 Oral 3400 / 3550 960 / 960 Output: Urine 1500 / 2375 500 / 500 Other: Urine Color Yellow Yellow Urine Appearance Clear Clear Urine Odor Normal Normal Comment 3 voids Stool Size Small Stool Characteristics Soft Formed Voiding Methods Urinal Urinal Data Completed and Pending Completed studies during hospitalization [Text1]: CT chest/abdomen/pelvis 04/21/19: No evidence of pulmonary emboli or aortic dissection. No acute abnormality is seen in the abdomen or pelvis. MPI 04/24/19: Ejection fraction was 52% with stress. There was no wall motion abnormality. There was no evidence of stress-induced ischemia. Compared to prior MPI stress test, there is no change. TTE 04/24/19: Left Ventricle : The left ventricle is normal size. The left v entricular systolic function is normal. There is normal LV segmental wall motion. LVEF is 55-59%. Right Ventricle : The right ventricle is normal size. The right ventricular systolic function is normal. Left Ventricle : The left ventricular diastolic function is normal. Atria : The left atrium size is normal. The right atrium size is normal. Aortic Valve : Aortic valve is trileaflet. Aortic valve leaflets are sclerotic but open well. There is no aortic valvular stenosis. Mild aortic regurgitation. Mitral Valve : Mitral valve leaflets are thickened. Normal mitral valve excursion. Mild to moderate mitral regurgitation. Tricuspid Valve : Tricuspid valve leaflets are thickened but open well. Mild tricuspid regurgitation. Pulmonic Valve : The pulmonary valve is normal in structure. Great Vessels : IVC is normal in size and collapses >50% with inspiration. RVSP is estimated to be between 24-30 mmHg. Compared to prior echocardiogram dated 12/19/2015 there is no significant change. Pending studies at discharge: [address] Medical History CAD (coronary artery disease) Chronic low back pain Chronic subdural hematoma (Chronic) Colon polyps Depression Diastasis recti DM type 2 (diabetes mellitus, type 2) Fatty liver GERD (gastroesophageal reflux disease) Gout H/O alcohol abuse Headaches due to 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 Hx of deep venous thrombosis Hyperlipidemia Hypertension Hypothyroidism MRSA infection Obstructive sleep apnea Pituitary abnormality (Acute) Right sided weakness (Acute) Urethral stricture Vitamin D deficiency Surgical History Appendectomy (06/01/16) Colonoscopy - MAC 2010-5year f/u 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 electroconvulsive therapy Extraction of cataract facial lesion removal Repair of inguinal hernia (08/05/17) right inguinal hernia repair by Dr Arroyo on 08/05/17 Repair of umbilical hernia Social History Smoking/Tobacco Use Status: Never Alcohol Intake: never Drug use: Never Substance use type: does not use Household members: spouse Housing: house Pets and animals: Yes Pets and animals: dog(s) Do you feel safe at home: Yes Do you feel safe in your relationship?: Yes
[2019-04-25] MEDS: Normal Saline Flush 10 ML SYR IVP (12:41)
[2019-04-25] MEDS: Insulin Glargine 300 UNITS/3 ML PEN 20 UNITS SC (12:41)
[2019-04-25] MEDS: Pantoprazole 40 MG VIAL IVP (12:45)
[2019-04-25 13:58] LABS: Hemoglobin A1C 7.6 % (4.5-6.2)
[2019-04-25] MEDS: Isosorbide Mononitrate 30 MG TABCR PO (14:32)
--- NOTE | 2019-04-25 18:26 | PDOC.CMDIS ---
- If Service Date Differs Date of service: 04/25/19 Time of Service: 18:27 LACE Index Scoring Tool - Questions: Length of Stay (in days): 2 Acuity (Admit via E.D.?): Yes Comorbidities: Diabetes w/o Complication E.D. Visits: 11 - Answers: Total Score: 10 Risk of Readmission: High Risk Care Management Discharge Reason for Hospitalization: Chest Pain Discharge Plan: Fredo will return home with no additional services. He will follow up with his PCP, as recommended. His , Brittany, will drive him home via private vehicle. Patient/Family Education Needs: Review discharge instructions, discussion of self care needs including Ask Me Three
== END 2019-04-25 14:30 | disposition home or self-care (01) | DRG 313 ==
LOC: ER 04-22 00:10 → ICU 04-22 01:52
PROVIDERS: Admitting Provider General Practice; Emergency Provider Physician Assistant; PCP Family Medicine; Visit Provider Internal Medicine
DX: R07.9 Chest pain, unspecified (principal); I62.03 Nontraumatic chronic subdural hemorrhage; R42 Dizziness and giddiness; E11.9 Type 2 diabetes mellitus without complications; E66.9 Obesity, unspecified; E78.5 Hyperlipidemia, unspecified; I25.10 Atherosclerotic heart disease of native coronary artery without angina pectoris; Z95.1 Presence of aortocoronary bypass graft; I10 Essential (primary) hypertension; Z79.4 Long term (current) use of insulin; F32.9 Major depressive disorder, single episode, unspecified; K21.9 Gastro-esophageal reflux disease without esophagitis; E03.9 Hypothyroidism, unspecified; G47.33 Obstructive sleep apnea (adult) (pediatric)
CPT/HCPCS: 36415; 71275; 74177; 78452; 80048; 80053; 80061; 83721; 93005; 93016; 93018; 93306; 99222; 99223; 99226; 99232; 99239; 99255; 99285; 83036; 83735; 83880; 84484; 85025; 85730; 93010; 93017; J2785; J3490

== ENCOUNTER → 2019-04-24 07:38 | Outpatient (BNVA) | payer MEDICARE, OTHER, SELFPAY | PROVIDERS: PCP Family Medicine; Referring Provider Family Medicine; Visit Provider Internal Medicine Cardiovascular Disease | DX: R69 Illness, unspecified (principal) ==

== ENCOUNTER 2019-05-01 15:54 | Observation (INO) | payer MEDICARE, OTHER, SELFPAY ==
[2019-05-01] VITALS (54 sets, daily range): BP systolic 141–170; BP diastolic 74–92; PULSE 78–90; RESP 13–30; TEMP 36.5–37; O2SAT 96–100
--- NOTE | 2019-05-01 16:24 | W.ED.GENAD ---
Discharge Plan Disposition Patient Disposition: [facility] INPATIENT Condition: Stable Discharge Details Chief Complaint: Chest Pain Clinical Impression: Coronary artery disease, Angina pectoris Primary Care Provider: Alisa Ramirez ED Provider: Dilshad Penny Home Meds and New Rx's Prescriptions: No Action gabapentin 100 mg capsule 100 mg PO QAM RF: 0 acetylcysteine [NAC] 600 mg capsule 600 mg PO BID RF: 0 cod liver oil Capsule 1 cap PO DAILY RF: 0 Refresh Tears 0.5 % drops 1 drp OP 4-6XD PRNRF: 0 bisacodyl [Dulcolax (bisacodyl)] 5 mg tablet,delayed release (DR/EC) 5 mg PO DAILY PRNRF: 0 tramadol 50 mg tablet 50 mg PO DAILY MDD 1 tablet/day PRN (Reason: pain) 30 Days Qty: 30 RF: 0 polyethylene glycol 3350 [Miralax] 17 GM powder in packet 17 g PO DAILY PRNQty: 255 RF: 0 nitroglycerin [Nitrostat] 0.4 MG tablet, sublingual 0.4 mg Sublingual as directed RF: 0 docusate sodium [Dulcolax Stool Softener (dss)] 100 MG capsule 100 mg PO DAILY PRNRF: 0 Levemir FlexTouch U-100 Insuln 100 UNIT/1 ML insulin pen 100 units subcut BID RF: 0 lisinopril 20 MG tablet 20 mg PO DAILY RF: 0 carvedilol 25 MG tablet 25 mg PO BID Qty: 120 RF: 4 riboflavin (vitamin B2) [Vitamin B-2] 100 mg tablet 400 mg PO DAILY RF: 0 topiramate [Topamax] 25 mg capsule, sprinkle 75 mg PO HS RF: 0 levothyroxine 50 MCG tablet 50 mcg PO DAILY@0730 RF: 0 allopurinol 300 MG tablet 300 mg PO DAILY RF: 0 quetiapine [Seroquel] 300 MG tablet 300 mg PO HS RF: 0 rosuvastatin [Crestor] 20 MG tablet 20 mg PO HS RF: 0 metformin [Glucophage] 1,000 mg Tablet 1,000 mg PO BID RF: 0 citalopram 10 mg tablet 10 mg PO HS RF: 0 glimepiride [Amaryl] 4 MG tablet 4 mg PO DAILY@0800 RF: 0 acetaminophen [Tylenol] 325 MG tablet 2 tab PO Q4H PRN PRNRF: 0 gabapentin 300 mg capsule 300 mg PO HS RF: 0 magnesium oxide 400 mg Capsule 400 mg PO DAILY RF: 0 cholecalciferol (vitamin D3) [Vitamin D3] 1,000 unit Tablet 1,000 unit PO DAILY RF: 0 pantoprazole [Protonix] 40 mg tablet,delayed release (DR/EC) 40 mg PO DAILY Qty: 30 RF: 0 isosorbide mononitrate 30 mg tablet extended release 24 hr 30 mg PO DAILY@1400 Qty: 30 RF: 0 Medical Decision Making 68-year-old male with known multivessel coronary artery disease, status post admission last week for chest pain that included myocardial perfusion scan on April 24. This showed an ejection fraction of 52% with no inducible ischemic changes. He was started on 30 mg of Imdur. States he had recurrent chest pain at rest yesterday and took 3 sublingual nitroglycerin, recurrent again today and took one. Arrives with pain dissipated. Blood pressure 157/89, pulse 88. Differential diagnosis includes angina, unstable angina. Patient placed on a electronic device monitor, labs obtained, EKG and chest x-ray ordered. Patient has a normal troponin. His EKG is without significant changes. His chest x-ray read as unremarkable for acute process. He had recurrent chest pain that resolved with 1 sublingual nitroglycerin. Given his recent negative stress test, persistent negative biomarkers, I do feel he has a stable and chronic component to his angina and likely would benefit from increase in Imdur. Nonetheless, intermittent pain today at response nitroglycerin is concerning. Will check interval troponin and if negative consider admission for trial of increased nitrates. ECG Data Attestation: I personally reviewed and interpreted this ECG (s) as follows: Interpretation: Normal sinus rhythm with a rate of 87, the QRS is narrow, there is nonspecific ST segment flattening throughout. No ST segment elevation. EKG #2 1722 hrs., normal sinus rhythm, rate of 92, QRS is narrow, there are nonspecific ST segment flattening persists. There is subtle T wave changes that are similar to that seen on EKG 04/29/2018 HPI General Mode of arrival: ambulatory. Date/Time Provider Initiated Documentation: 05/01/19 15:54. Limitations to Documentation: no limitations. Information obtained by: patient and family. History of Present Illness 68 year old M presents to the emergency department with the chief complaint of Recurrent chest pain, nitroglycerin responsive, described as moderate, Quality is described as dull and constant, and is localized to the chest. Patient reports radiation to (Has radiated to the left in the past, not today). Patient started experiencing this hour(s) and it has been intermittent. No relieving factors improve symptom(s), No exacerbating factors reported . Patient notes chest pain. Patient did receive the following treatments prior to arrival, other (Nitroglycerin x1) Related Data Home Medications Medication Instructions Recorded Confirmed allopurinol 300 mg PO DAILY 01/24/13 05/01/19 levothyroxine 50 mcg PO DAILY@0730 01/24/13 05/01/19 quetiapine [Seroquel] 300 mg PO HS 01/24/13 05/01/19 glimepiride [Amaryl] 4 mg PO DAILY@0800 01/11/17 05/01/19 rosuvastatin [Crestor] 20 mg PO HS 03/22/17 05/01/19 docusate sodium [Dulcolax Stool 100 mg PO DAILY PRN 04/08/17 05/01/19 Softener (dss)] nitroglycerin [Nitrostat] 0.4 mg SUBLINGUAL as directed 04/08/17 05/01/19 polyethylene glycol 3350 [Miralax] 17 g PO DAILY PRN #255 gm 04/08/17 05/01/19 acetaminophen [Tylenol] 2 tab PO Q4H PRN PRN tab 05/24/17 05/01/19 Levemir FlexTouch U-100 Insuln 100 units SUBCUT BID 08/04/17 05/01/19 lisinopril 20 mg PO DAILY tab-cap 11/25/17 05/01/19 carvedilol 25 mg PO BID #120 tab-cap 02/07/18 05/01/19 gabapentin 300 mg capsule 300 mg PO HS cap 07/27/18 05/01/19 magnesium oxide 400 mg PO DAILY 09/04/18 05/01/19 cholecalciferol (vitamin D3) 1,000 unit PO DAILY 11/11/18 05/01/19 [Vitamin D3] acetylcysteine 600 mg capsule 600 mg PO BID 12/12/18 05/01/19 gabapentin 100 mg capsule 100 mg PO QAM 12/12/18 05/01/19 metformin [Glucophage] 1,000 mg PO BID 03/08/19 05/01/19 citalopram 10 mg tablet 10 mg PO HS tab 03/28/19 05/01/19 riboflavin (vitamin B2) 100 mg 400 mg PO DAILY tab 03/28/19 05/01/19 tablet topiramate 25 mg sprinkle capsule 75 mg PO HS cap 03/28/19 05/01/19 bisacodyl 5 mg tablet,delayed 5 mg PO DAILY PRN tab 04/17/19 05/01/19 release carboxymethylcellulose sodium 0.5 1 drp OP 4-6XD PRN 04/17/19 05/01/19 % eye drops cod liver oil 1 cap PO DAILY 04/17/19 05/01/19 tramadol 50 mg tablet 50 mg PO DAILY PRN 30 Days #30 tab 04/17/19 05/01/19 MDD 1 tablet/day isosorbide mononitrate 30 mg PO DAILY@1400 #30 tab 04/25/19 05/01/19 pantoprazole [Protonix] 40 mg PO DAILY #30 tab 04/25/19 05/01/19 Previous Rx's Medication Instructions Recorded acetaminophen [Tylenol] 2 tab PO Q4H PRN PRN tab 05/24/17 carvedilol 25 mg PO BID #120 tab-cap 02/07/18 tramadol 50 mg tablet 50 mg PO DAILY PRN 30 Days #30 tab 04/17/19 MDD 1 tablet/day isosorbide mononitrate 30 mg PO DAILY@1400 #30 tab 04/25/19 pantoprazole [Protonix] 40 mg PO DAILY #30 tab 04/25/19 Allergies Allergy/AdvReac Type Severity Reaction Status Date / Time amoxicillin Allergy Severe breathing Unverified 05/01/19 16:08 difficuty and vomiting Penicillins Allergy Skin Rash Unverified 05/01/19 16:08 sulfamethoxazole Allergy Skin Rash Unverified 05/01/19 16:08 [From Bactrim] trimethoprim [From Bactrim] Allergy Skin Rash Unverified 05/01/19 16:08 oxycodone HCl [From Percocet] AdvReac Severe Contraindic Unverified 05/01/19 16:08 ated oxycodone terephthalate AdvReac Severe Contraindic Unverified 05/01/19 16:08 [From Percodan] ated General Stated Complaint: Chest Pain MADELIN: 2 Review of Systems Narrative: 6 systems reviewed and otherwise negative [facility] Medical History CAD (coronary artery disease) Chronic low back pain Chronic subdural hematoma (Chronic) Colon polyps Depression Diastasis recti DM type 2 (diabetes mellitus, type 2) Fatty liver GERD (gastroesophageal reflux disease) Gout H/O alcohol abuse Headaches due to 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 Hx of deep venous thrombosis Hyperlipidemia Hypertension Hypothyroidism MRSA infection Obstructive sleep apnea Pituitary abnormality (Acute) Right sided weakness (Acute) Urethral stricture Vitamin D deficiency Surgical History Appendectomy (06/01/16) Colonoscopy - MAC 2009-5year f/u 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 electroconvulsive therapy Extraction of cataract facial lesion removal Repair of inguinal hernia (08/05/17) right inguinal hernia repair by Dr Arroyo on 08/05/17 Repair of umbilical hernia Social History Smoking/Tobacco Use Status: Never Alcohol Intake: never Drug use: Never Substance use type: does not use Household members: spouse Housing: house Pets and animals: Yes Pets and animals: dog(s) Do you feel safe at home: Yes Do you feel safe in your relationship?: Yes Exam Narrative Exam Narrative: GEN: awake, alert, oriented 3. Pleasant, well groomed, interactive. HEAD: Normocephalic, atraumatic ENT: Mucous membranes moist, oropharynx unremarkable, External ear exam unremarkable EYES: PERRL, EOMI NECK: Full ROM, no MAURO, no menigismus CHEST/RESP: Nontender, clear to auscultation bilateral, no wheeze/rhonchi/rales CARDIOVASCULAR: RRR, no murmur, rub coy. 2+ Rad pulse bilateral ABDOMEN: Soft, nontender, no mass. +Bowel sounds EXT: Full ROM, no edema, no rash Neuro: Grossly normal neurologic exam, conversant, interactive. Psych: Speech fluent, thoughts congruent, affect anxious Course Vital Signs Vital signs: Vital Signs Temperature 37.0 C 05/01/19 15:57 Pulse 90 05/01/19 15:57 Respiratory Rate 16 11/11/19 15:57 Blood Pressure 166/87 H 05/01/19 15:57 Pulse Oximetry 99 05/01/19 15:57 Temperature 37.0 C 05/01/19 15:57 Temperature Source Skin 05/01/19 15:57 Pulse 90 05/01/19 15:57 Respiratory Rate 17 05/01/19 16:05 Respiratory Effort 05/01/19 16:05 Respiratory Depth Normal 05/01/19 16:05 Respiratory Pattern Normal 05/01/19 16:05 Blood Pressure 166/87 H 05/01/19 15:57 Pulse Oximetry 99 05/01/19 15:57 Oxygen Delivery Method Room Air 05/01/19 15:57 Oxygen Flow Rate 0 05/01/19 15:57 Pain Level 8 05/01/19 16:05
[2019-05-01 16:32] LABS: Abs Immature Grans 0.01 k/cumm (0.0-0.09); Absolute Basophil Count 0.06 k/cumm (0.0-0.2); Absolute Eosinophil Count 0.19 k/cumm (0.0-0.7); Absolute Lymphocyte Count 1.14 k/cumm (1.2-3.4); Absolute Monocyte Count 0.53 k/cumm (0.11-0.7); Absolute Neutrophil Count 3.82 k/cumm (1.2-6.7); Eosinophils % 3.3; HCT 36.7 % (40.0-50.0); HGB 12.2 g/dL (13.5-17.5); Immature Grans % 0.2; Lymphocytes % 19.8; Mean Corp. HGB Concentration 33.2 g/dL (32.0-36.0); Mean Corpuscular Hemoglobin 25.2 pg (27.0-33.0); Mean Corpuscular Volume 75.7 fL (80-95); Monocytes % 9.2; Neutrophils % 66.5; Platelet Count 219 x1000/uL (130-400); RBC 4.85 m/cumm (4.50-6.00); RBC Distribution Width 15.8 % (11.8-14.1); White Blood Cell Count 5.75 k/cumm (4.4-10.8)
[2019-05-01] MEDS: Normal Saline Flush 10 ML SYR IVP (16:33)
--- NOTE | 2019-05-01 16:46 | DI.RAD_ITS ---
EXAM: XR CHEST 2V PA LATERAL INDICATION: CP, hx of CAD. COMPARISON: XR CHEST 2V PA LATERAL from 03/12/2019 TECHNIQUE: 2D digital imaging was performed. FINDINGS: Heart size and pulmonary vasculature are within normal limits. The lungs are clear. No pleural effusion or pneumothorax is identified. Sternotomy wires are in place. There is an old compression deformity at the thoracolumbar junction. Degenerative changes are seen in the spine. IMPRESSION: No acute pulmonary process.
[2019-05-01 16:52] LABS: ALT 30 U/L (16-63); AST 15 U/L (15-37); Albumin 4.1 g/dL (3.4-5.0); Alkaline Phosphatase 90 U/L (46-116); Anion Gap 10.6 mmol/L (3-11); BUN 13 mg/dL (7-18); Bilirubin, Total 0.3 mg/dL (0.2-1.0); CO2 23.4 mmol/L (21.0-32.0); CREATININE 1.22 mg/dL (0.70-1.30); Calcium 8.8 mg/dL (8.5-10.1); Chloride 104 mmol/L (98-107); Glucose 220 mg/dL (70-100); Magnesium 2.1 mg/dL (1.8-2.4); NT-proBNP 196 pg/mL; Potassium 3.8 mmol/L (3.5-5.1); Sodium 138 mmol/L (136-145); Total Protein 7.5 g/dL (6.4-8.2)
--- NOTE | 2019-05-01 16:52 | DI.VRAD_ITS ---
PROCEDURE INFORMATION: Exam: XR Chest, 2 Views Exam date and time: 05/01/2019 4:42 PM Clinical history: 68 years old, male; Other: Cp, HX of cad TECHNIQUE: Imaging protocol: XR of the chest Views: 2 views. COMPARISON: CT of the thorax dated 04/21/19. FINDINGS: Lungs: The lungs appear clear. Pleural space: No pneumothorax or large profusion seen. Heart/Mediastinum: Cardiac silhouette appears top normal in size Bones/joints: The visualized bones are grossly intact. Other: Median sternotomy wires are noted. IMPRESSION: No acute findings in the chest. Dictated and Authenticated by: Alban Rubalcava MD. Ordering:COSME Yung MD
[2019-05-01 16:54] LABS: Troponin I < 0.05 ng/mL (0.00-0.06)
--- NOTE | 2019-05-01 18:30 | NUR.NOTE ---
pt provided with meal tray went home Nursing Note:
[2019-05-01 19:41] LABS: Troponin I < 0.05 ng/mL (0.00-0.06)
[2019-05-01] MEDS: metFORMIN 500 MG TAB 1000 MG PO (20:19)
[2019-05-01] MEDS: Carvedilol 25 MG TAB PO (20:32)
--- NOTE | 2019-05-01 20:35 | NUR.NOTE ---
pt called nurse and was tearful because 1700 meds were late. he verbalized that he has to keep them separate from his seriquil . ER MD did order his important evening meds . Nursing Note:
--- NOTE | 2019-05-01 23:33 | HPE_ITS ---
Date of service: 05/01/19 Time of Service: 23:33 Assessment and Plan Assessment and plan (1) Chest pain: Status: Acute Assessment and plan: Unclear etiology of his chest pain. Given his that he had a negative stress MPI study is reassuring that this is probably not ischemic pain. The fact that he was tiling and laying down linoleum 1 month ago without exertional dyspnea or exertional chest pain is also reassuring. I think if he is unresponsive to titration of his long-acting nitrates and beta-blockers then we may be forced to perform a cardiac catheterization to answer the question as to whether or not he has residual or recurrent significant obstructive coronary artery disease. I think more information is needed about the nature of his subdural bleeding. According to Dr. Duarte this was a spontaneous bleed. If that is corrected it was a spontaneous bleed while on antiplatelet therapy and I would consult with neurology and neurosurgery before putting him on any antiplatelet therapy for his coronary artery disease. Qualifiers: Chest pain type: precordial pain Qualified Code(s): R07.2 - Precordial pain (2) CAD (coronary artery disease): Status: None Assessment and plan: Adjustment of his beta-blockers and long-acting nitrates as noted above. Patient needs to work on reduction of his risk factors including tighter diabetes control and improvement on his lipid control. Last lipid profile was checked a week ago and found to have elevated triglycerides of 363. He is currently on Crestor but not on any anti-triglyceride medication. Qualifiers: Coronary Disease-Associated Artery/Lesion type: [place] artery [place] vs. transplanted heart: [place] heart Associated angina: with unspecified angina Qualified Code(s): I25.119 - Atherosclerotic heart disease of [place] coronary artery with unspecified angina pectoris (3) Diabetes mellitus type 2 in obese: Status: Chronic Assessment and plan: His diabetes is less than optimally controlled. His hemoglobin A1c was 7.6% a week ago and 7.8% 3 months ago. He is currently on glyburide and metformin and Levemir. I think the glyburide can be sacrificed for initiation of bolus insulin with meals. His Levemir dose can also be adjusted. History of Present Illness History of Present Illness Chief Complaint: Chest pain Narrative: 68-year-old male with past medical history of coronary artery disease, status post CABG x2, not on antiplatelet therapy due to history of spontaneous subdural hematomas in 2018, diabetes mellitus requiring insulin, essential hypertension who was admitted to [facility] April 22 through April 25, 2019 with nonexertional chest pain relieved with nitroglycerin. There was concern for unstable angina. He ruled out for acute myocardial infarction with negative troponins and underwent stress MPI and echocardiography which failed to show inducible ischemia. He had no wall motion abnormalities and his ejection fraction was 52% with stress. Echocardiogram demonstrated normal left ventricular size and function with an ejection fraction of 5589% normal RV size and function. Dr.David Pappas, associate professor of communication was consulted and felt that his chest pain was typical for coronary artery disease but because of his risk of intracranial bleeding did not recommend antiplatelet therapy or anticoagulation. And he also did not recommend cardiac catheterization since there was no inducible ischemia and the patient would not be a candidate for antiplatelet therapy if he received a coronary stent. Did recommend addition of long-acting nitrate put the patient on Imdur 30 mg daily. Since discharge home the patient has had recurrent chest pain beginning last night. This occurred while watching TV and was relieved with 3 nitroglycerin tablets beginning at 11 PM last night and his pain went away by 1 AM. He awoke around noon today and had recurrent left shoulder and left arm pain that he describes as a sharp stabbing pain that goes down to his fingertips. He finally took a nitroglycerin at 1:00 with partial relief but incomplete relief of his pain. At that point decided to present to the emergency department. He was seen by Dr. Dilshad Penny and a diagnostic work- up included routine labs including serial troponin levels that have come back less than 0.05?2 sets. CMP was remarkable for elevated glucose of 220. Normal BUN and creatinine and normal electrolytes and LFTs. CBC showed a stable microcytic anemia hemoglobin 12.2 g with MCV of 75 and a normal white cell count of 5700. Chest x-ray showed no acute findings. ECG demonstrates sinus rhythm with short UT of 98 ms. He has early R wave transition at V2 and diffuse nonspecific ST abnormalities that are unchanged from his prior ECGs from April 23, 2019. Patient is admitted on observation status for adjustment of his anti-ischemic medications and for further consultation with his associate professor of communication. I have changed his carvedilol to bisoprolol for improved heart rate control and anti-ischemia. I have increased his Imdur to 60 mg daily. We could also consider adding Ranexa to his regimen. If he is refractory to medical therapy and we may be left with no other choice than referring him for cardiac catheterization to determine whether this is ischemic pain or not. Of note he had some belching today with his chest pain but no dyspnea and no nausea or abdominal pain. Belching did not seem to help his chest discomfort. He also denies any exacerbation of his arm pain with movement of his arm over his head or with lifting anything. Of note 1 month ago he was tiling and laying down linoleum with the help of his son and had no exertional chest discomfort nor exertional dyspnea. Review of Systems All systems reviewed & are unremarkable except as noted in HPI and below PFSH Medical History CAD (coronary artery disease) Chronic low back pain Chronic subdural hematoma (Chronic) Colon polyps Depression Diastasis recti DM type 2 (diabetes mellitus, type 2) Fatty liver GERD (gastroesophageal reflux disease) Gout H/O alcohol abuse Headaches due to 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 Hx of deep venous thrombosis Hyperlipidemia Hypertension Hypothyroidism MRSA infection Obstructive sleep apnea Pituitary abnormality (Acute) Right sided weakness (Acute) Urethral stricture Vitamin D deficiency Surgical History Appendectomy (06/01/16) Colonoscopy - MAC 2010-5year f/u 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 electroconvulsive therapy Extraction of cataract facial lesion removal Repair of inguinal hernia (08/05/17) right inguinal hernia repair by Dr Arroyo on 08/05/17 Repair of umbilical hernia Social History Smoking/Tobacco Use Status: Never Alcohol Intake: never Drug use: Never Substance use type: does not use Household members: spouse Housing: house Pets and animals: Yes Pets and animals: dog(s) Do you feel safe at home: Yes Do you feel safe in your relationship?: Yes Meds Home Medications and Allergies Home Medications Medication Instructions Recorded Confirmed Type allopurinol 300 mg PO DAILY 01/24/13 05/01/19 History levothyroxine 50 mcg PO DAILY@0730 01/24/13 05/01/19 History quetiapine [Seroquel] 300 mg PO HS 01/24/13 05/01/19 History glimepiride [Amaryl] 4 mg PO DAILY@0800 01/11/17 05/01/19 History rosuvastatin [Crestor] 20 mg PO HS 03/22/17 05/01/19 History docusate sodium [Dulcolax Stool 100 mg PO DAILY PRN 04/08/17 05/01/19 History Softener (dss)] nitroglycerin [Nitrostat] 0.4 mg SUBLINGUAL as directed 04/08/17 05/01/19 History polyethylene glycol 3350 [Miralax] 17 g PO DAILY PRN #255 gm 04/08/17 05/01/19 History acetaminophen [Tylenol] 2 tab PO Q4H PRN PRN tab 05/24/17 05/01/19 Rx Levemir FlexTouch U-100 Insuln 100 units SUBCUT BID 08/04/17 05/01/19 History lisinopril 20 mg PO DAILY tab-cap 11/25/17 05/01/19 History carvedilol 25 mg PO BID #120 tab-cap 02/07/18 05/01/19 Rx gabapentin 300 mg capsule 300 mg PO HS cap 07/27/18 05/01/19 History magnesium oxide 400 mg PO DAILY 09/04/18 05/01/19 History cholecalciferol (vitamin D3) 1,000 unit PO DAILY 11/11/18 05/01/19 History [Vitamin D3] acetylcysteine 600 mg capsule 600 mg PO BID 12/12/18 05/01/19 History gabapentin 100 mg capsule 100 mg PO QAM 12/12/18 05/01/19 History metformin [Glucophage] 1,000 mg PO BID 03/08/19 05/01/19 History citalopram 10 mg tablet 10 mg PO HS tab 03/28/19 05/01/19 History riboflavin (vitamin B2) 100 mg 400 mg PO DAILY tab 03/28/19 05/01/19 History tablet topiramate 25 mg sprinkle capsule 75 mg PO HS cap 03/28/19 05/01/19 History bisacodyl 5 mg tablet,delayed 5 mg PO DAILY PRN tab 04/17/19 05/01/19 History release carboxymethylcellulose sodium 0.5 1 drp OP 4-6XD PRN 04/17/19 05/01/19 History % eye drops cod liver oil 1 cap PO DAILY 04/17/19 05/01/19 History tramadol 50 mg tablet 50 mg PO DAILY PRN 30 Days #30 tab 04/17/19 05/01/19 Rx MDD 1 tablet/day isosorbide mononitrate 30 mg PO DAILY@1400 #30 tab 04/25/19 05/01/19 Rx pantoprazole [Protonix] 40 mg PO DAILY #30 tab 04/25/19 05/01/19 Rx Allergies Allergy/AdvReac Type Severity Reaction Status Date / Time amoxicillin Allergy Severe breathing Unverified 05/01/19 16:08 difficuty and vomiting Penicillins Allergy Skin Rash Unverified 05/01/19 16:08 sulfamethoxazole Allergy Skin Rash Unverified 05/01/19 16:08 [From Bactrim] trimethoprim [From Bactrim] Allergy Skin Rash Unverified 05/01/19 16:08 oxycodone HCl [From Percocet] AdvReac Severe Contraindic Unverified 05/01/19 16:08 ated oxycodone terephthalate AdvReac Severe Contraindic Unverified 05/01/19 16:08 [From Percodan] ated Exam Narrative Exam Narrative: Elderly male who is alert and oriented to person place time and circumstance. He is currently free of any chest pain or dyspnea. HEENT is unremarkable Neck is supple without JVD. Normal carotid pulses without bruits. No thyromegaly. Lungs are clear to auscultation and percussion Heart is regular without murmur rub or gallop. Normal S1-S2 heart tones. No palpable thrill heave Abdomen is obese soft and nontender no palpable masses no bruits no organomeg srinath. Lower extremities without peripheral cyanosis or edema. He has normal femoral popliteal and dorsalis pedis pulses Neurologic exam is grossly intact there is no focal motor deficits. Sensation i ntact to light touch. No cranial nerve abnormalities Genitalia rectal exam deferred Results Imaging Chest x-ray: report reviewed EKG: image reviewed Labs Result diagrams: 05/01/19 16:15 05/01/19 16:15 Labs: Laboratory Results - last 24 hr 05/01/19 05/01/19 05/01/19 16:15 16:15 19:15 WBC 5.75 RBC 4.85 Hgb 12.2 L Hct 36.7 L MCV 75.7 L MCH 25.2 L MCHC 33.2 RDW 15.8 H Plt Count 219 MPV 9.0 Immature Gran % 0.2 Neutrophils % 66.5 Lymphocytes % 19.8 Monocytes % 9.2 Eosinophils % 3.3 Basophils % 1.0 Absolute Neutrophils 3.82 Absolute Lymphocytes 1.14 L Absolute Monocytes 0.53 Absolute Eosinophils 0.19 Absolute Basophils 0.06 Sodium 138 Potassium 3.8 Chloride 104 Carbon Dioxide 23.4 Anion Gap 10.6 BUN 13 Creatinine 1.22 Estimated GFR/1.73 m2 58.90 Glucose 220 H Calcium 8.8 Magnesium 2.1 Total Bilirubin 0.3 AST 15 ALT 30 Alkaline Phosphatase 90 Troponin I < 0.05 < 0.05 NT-Pro-B Natriuret Pep 196 Total Protein 7.5 Albumin 4.1 Last Vital Signs Temp 36.5 C 05/01/19 22:55 Pulse 88 05/01/19 23:00 Resp 20 05/01/19 22:55 BP 170/88 H 05/01/19 22:55 Pulse Ox 98 05/01/19 22:55
[2019-05-01] MEDS: QUEtiapine 300 MG TAB PO (23:51)
[2019-05-02] VITALS (11 sets, daily range): BP systolic 113–166; BP diastolic 64–89; PULSE 73–95; RESP 16–18; TEMP 36.7–37.2; O2SAT 94–100
[2019-05-02 02:06] LABS: Troponin I < 0.05 ng/mL (0.00-0.06)
[2019-05-02] MEDS: Glimepiride 2 MG TAB 4 MG PO (07:50)
[2019-05-02] MEDS: Allopurinol 300 MG TAB PO (07:50)
[2019-05-02] MEDS: Bisoprolol 5 MG TAB PO (07:50)
[2019-05-02] MEDS: Levothyroxine 50 MCG TAB PO (07:50)
[2019-05-02] MEDS: Cholecalciferol (Vitamin D3) 1,000 UNIT TAB 1000 UNITS PO (07:51)
[2019-05-02] MEDS: Pantoprazole 40 MG TABCR PO (07:51)
[2019-05-02] MEDS: Lisinopril 20 MG TAB PO (07:51)
[2019-05-02] MEDS: metFORMIN 500 MG TAB 1000 MG PO ×2 (07:51→17:30)
[2019-05-02] MEDS: Magnesium Oxide 400 MG TAB PO (07:51)
[2019-05-02] MEDS: Gabapentin 100 MG CAP PO (07:52)
--- NOTE | 2019-05-02 08:04 | PDOC.CMIN ---
- If Service Date Differs Date of service: 05/02/19 Time of Service: 08:04 Care Management Initial Assess REASON FOR HOSPITALIZATION:: chest pain PAST MEDICAL HISTORY/PAST SURGICAL HISTORY:: Medical History . CAD (coronary artery disease). Chronic low back pain. Chronic subdural hematoma (Chronic). Colon polyps. Depression. Diastasis recti. DM type 2 (diabetes mellitus, type 2). Fatty liver. GERD (gastroesophageal reflux disease). Gout. H/O alcohol abuse. Headaches due to 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. Hx of deep venous thrombosis. Hyperlipidemia. Hypertension. Hypothyroidism. MRSA infection. Obstructive sleep apnea. Pituitary abnormality (Acute). Right sided weakness (Acute). Urethral stricture. Vitamin D deficiency. Surgical History . Appendectomy (06/01/16). Colonoscopy - MAC. 2009-5year f/u. Coronary Artery Bypass Gaft (CABG). 04/2016. electroconvulsive therapy. Extraction of cataract. facial lesion removal. Repair of inguinal hernia (08/05/17). right inguinal hernia repair by Dr Arroyo on 08/05/17. Repair of umbilical hernia PREVIOUS FUNCTIONAL STATUS/SOCIAL/FAMILY SUPPORTS:: Fredo lives in [facility] with his of 50 years, Brittany. Their adult son, Frdeo also lives at home with them. He is retired and independent with ADL's. CURRENT FUNCTIONAL STATUS:: Fredo was sitting up in bed visitng with his and some friends. He states he is anxious to go to [facility] and get it over with. He is scheduled to transfer to have a cardiac catheterization . He stated that he does not really want the procedure but he wants and needs answers. ADVANCE DIRECTIVES:: on file. Brittany listed as agent Has patient been provided with information about the portal?: Yes Did the patient sign up for the portal?: No (done previously) CODE STATUS:: Full Code INSURANCE COVERAGE / FINANCIAL ISSUES:: [employer]. [employer] Plan F CURRENT HOME/COMMUNITY SERVICES/EQUIPMENT:: Fredo has a bipap at home but reports he doesn't use it. Fredo has a manager rn case (Siomara) at [facility]. Has worked with [facility] and [employer] previously, but not currently. Fredo has a cane and hearing aids PRIMARY CARE PHYSICIAN:: Alisa Ramirez POTENTIAL DISCHARGE NEEDS:: follow up with PCP and plan of care PATIENT/FAMILY EDUCATION NEEDS:: Discharge plan, limitations, follow up plan, Ask Me Three ANTICIPATED BARRIERS TO DISCHARGE:: none identified TRANSPORTATION:: via ambulance to be coordinated by nursing supervisor bit and shank department. PLAN:: Fredo will be transferred to [facility] for a cardiac catheterization when a bed becomes available. He has been accepted as a transfer. He will transport via ambulance coordinated by nursing supervisor bit and shank department. CM will continue to support patient and family until tarnsfer.
[2019-05-02] MEDS: Bisacodyl 5 MG TABEC PO (10:49)
[2019-05-02] MEDS: Acetaminophen 325 MG TAB PO (10:49)
[2019-05-02] MEDS: Polyethylene Glycol 3350 17 GM PACKET PO (10:49)
[2019-05-02 11:59] LABS: Troponin I < 0.05 ng/mL (0.00-0.06)
[2019-05-02] MEDS: Isosorbide Mononitrate 30 MG TABCR 60 MG PO (13:56)
--- NOTE | 2019-05-02 13:59 | PHARADMIT ---
Admission Pharmacy Clinical Review Code Status Full Code Current Weight 88.8 kg Renally Cleared and Narrow Therapeutic Index Meds CrCl ~59 QTc Value / Action Taken QTc 462 BP Control, Fever BP 166/86 Electrolytes reviewed all WNL DVT Prophylaxis none Opiate Usage / Scheduled Bowel Regimen Ordered Tramadol prn, YES PRN Plt/SCr for Heparin / Enoxaparin PLT 219, Scr 1.22 INR for Warfarin H/H stable, WBC/Bands H/H 12.2/36.7, WBC 5.75 Antibiotic appropriateness Cultures and Sensitivities Surgical ABX d/c within 24 hr DM control / Insulin Dosing Heart Failure (Check EF%) (AURA's, B-Block, Diuretics) Lisinopril, isosorbide, nitro prn IV to PO Switch Home Meds Reviewed Yes - multiple sertotonergic agents Home Meds Not Ordered Carvedilol has been changed to bisoprolol by Dr. Eller Comments Trending troponin - < 0.05 t/o day Possibility he is unresposive to long acting nitrates and BB --> dc'd carvedilol and startes bisoprolol, increased Imdur dose DMII not well controlled with A1C of 7.6 a week ago... note mentions d/cing glyburide and starting meal time insulin
--- NOTE | 2019-05-02 14:14 | CCONE_ITS ---
Date of service: 05/02/19 Time of Service: 14:24 Assessment and Plan Assessment and plan (1) CAD (coronary artery disease): Status: None Assessment and plan: 1. Coronary artery disease with ongoing chest pain at rest. The patient describes typical angina but has had a normal work-up to date. There is clearly a lot of anxiety on both he and his 's part after having been told that is not cardiac chest pain and ending up with bypass surgery in the past. We have attempted to uptitrate his medical therapy including long-acting nitrates and better blood pressure control but this does not seem to control his pain. I also discussed with the patient the risks of going to get a heart cathete rization and the anticoagulation is required for the procedure. The is under the impression that his bleed that required a bur hole in the past was due to Flomax though I cannot find anything in the chart that would support that. The patient who, while maintaining speech difficulties from his stroke, is still completely with it mentally is able to discuss the risks and benefits of headed to the [employer] would like to continue with that plan. He says it will be very hard for him to have his mind at ease and less he is able to know for sure whether or not the pain is cardiac in nature. I told him again that even if they do find a blockage or narrowing we can say for sure that it is the one that is causing his pain as he had a normal stress test. He understands this but would like to continue with the plan towards catheterization. ?Continue beta-yamilet and long-acting nitrate ?With try to uptitrate his beta-yamilet if possible as better blood pressure control might help from a symptom standpoint. ?Discussed this case with the hospitalist and they will initiate transfer to [facility]. Qualifiers: Coronary Disease-Associated Artery/Lesion type: [place] artery [place] vs. transplanted heart: [place] heart Associated angina: with unspecified angina Qualified Code(s): I25.119 - Atherosclerotic heart disease of [place] coronary artery with unspecified angina pectoris History of Present Illness History of Present Illness Chief Complaint: chest pain Narrative: Mr. Osman is a 68-year-old male with past medical history significant for CABG in 2016, intracranial hemorrhage requiring bur hole who presents with stuttering chest pain worsening over the past few days. The patient was admitted just last week with similar symptoms. I saw him then and recommended starting him on long-acting nitrate. He took it for a day or 2 but says that it did not help. He comes back in now after an episode of chest pain that occurred at rest and radiated down his left arm. He additionally had chest pain while sitting and speaking to me today. During his last admission he had normal echocardiogram and a nuclear stress test that did not show any reversible defects. He also has this lingering concern of intracranial hemorrhage with anticoagulation. The patient and his are both anxious and fed up with the situation. They say they are going to keep coming back to the emergency room with concern that there is a cardiac event going on that is being missed. Part of this also stems from the fact that when he had his first cardiac event he was told he had a muscle spasm and later ended up with CABG. Despite medical management his blood pressure remains poorly controlled and his chest pain is far from resolved. He was ruled out with an unchanged EKG and normal troponins. He currently denies shortness of breath lightheadedness dizziness or lower extremity edema. The patient and his are eager to have a heart catheterization to try to put this to her rest. Review of Systems All systems reviewed & are unremarkable except as noted in HPI and below PFSH Medical History CAD (coronary artery disease) Chronic low back pain Chronic subdural hematoma (Chronic) Colon polyps Depression Diastasis recti DM type 2 (diabetes mellitus, type 2) Fatty liver GERD (gastroesophageal reflux disease) Gout H/O alcohol abuse Headaches due to 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 Hx of deep venous thrombosis Hyperlipidemia Hypertension Hypothyroidism MRSA infection Obstructive sleep apnea Pituitary abnormality (Acute) Right sided weakness (Acute) Urethral stricture Vitamin D deficiency Surgical History Appendectomy (06/01/16) Colonoscopy - MAC 2010-5year f/u 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 electroconvulsive therapy Extraction of cataract facial lesion removal Repair of inguinal hernia (08/05/17) right inguinal hernia repair by Dr Arroyo on 08/05/17 Repair of umbilical hernia Social History Smoking/Tobacco Use Status: Never Alcohol Intake: never Drug use: Never Substance use type: does not use Household members: spouse Housing: house Pets and animals: Yes Pets and animals: dog(s) Do you feel safe at home: Yes Do you feel safe in your relationship?: Yes Exam Const General: comfortable and no acute distress Other: Has some residual verbal defects from stroke. [facility] Head: normocephalic and atraumatic Eyes General: appearance normal, both eyes and all related structures Resp Effort & Inspection: normal respiratory effort Auscultation: clear to auscultation bilaterally Cardio Jugular venous pressure: no JVD Palpation: normal PMI Rate: regular rate Rhythm: regular rhythm Heart Sounds: S1 normal and S2 normal (No Murmurs, Rubs or Gallops) GI Palpation: soft Auscultation: normoactive bowel sounds Skin General skin exam: no rashes or lesions noted Extrem General: normal to inspection and no clubbing, cyanosis or edema Psych Appearance: grossly normal Results Last Vital Signs Left Ventricle : The left ventricle is normal size. The left ventricular systolic function is normal. There is normal LV segmental wall motion. LVEF is 55-59%. Right Ventricle : The right ventricle is normal size. The right ventricular systolic function is normal. Left Ventricle : The left ventricular diastolic function is normal. Atria : The left atrium size is normal. The right atrium size is normal. Aortic Valve : Aortic valve is trileaflet. Aortic valve leaflets are sclerotic but open well. There is no aortic valvular stenosis. Mild aortic regurgitation. Mitral Valve : Mitral valve leaflets are thickened. Normal mitral valve excursion. Mild to moderate mitral regurgitation. Tricuspid Valve : Tricuspid valve leaflets are thickened but open well. Mild tricuspid regurgitation. Pulmonic Valve : The pulmonary valve is normal in structure. Great Vessels : IVC is normal in size and collapses >50% with inspiration. RVSP is estimated to be between 24-30 mmHg. Compared to prior echocardiogram dated 12/19/2015 there is no significant change. Temp 36.7 C 05/02/19 08:08 Pulse 73 05/02/19 08:08 Resp 18 05/02/19 08:08 BP 166/86 H 05/02/19 08:08 Pulse Ox 98 05/02/19 08:08 1. There is no evidence of inducible ischemia on the ECG portion of this exam. Test Summary Supine 70 122/70 1 min post injection 83 118/74 3 mins post injection 89 130/60 6 mins post injection 79 130/70 MPI Conclusion Ejection fraction was 52% with stress. There was no wall motion abnormality. There was no evidence of stress-induced ischemia. Compared to prior MPI stress test, there is no change. Labs Result diagrams: 05/01/19 16:15 05/01/19 16:15 Labs: Laboratory Results - last 24 hr 05/01/19 05/01/19 05/01/19 16:15 16:15 19:15 WBC 5.75 RBC 4.85 Hgb 12.2 L Hct 36.7 L MCV 75.7 L MCH 25.2 L MCHC 33.2 RDW 15.8 H Plt Count 219 MPV 9.0 Immature Gran % 0.2 Neutrophils % 66.5 Lymphocytes % 19.8 Monocytes % 9.2 Eosinophils % 3.3 Basophils % 1.0 Absolute Neutrophils 3.82 Absolute Lymphocytes 1.14 L Absolute Monocytes 0.53 Absolute Eosinophils 0.19 Absolute Basophils 0.06 Sodium 138 Potassium 3.8 Chloride 104 Carbon Dioxide 23.4 Anion Gap 10.6 BUN 13 Creatinine 1.22 Estimated GFR/1.73 m2 58.90 Glucose 220 H Calcium 8.8 Magnesium 2.1 Total Bilirubin 0.3 AST 15 ALT 30 Alkaline Phosphatase 90 Troponin I < 0.05 < 0.05 NT-Pro-B Natriuret Pep 196 Total Protein 7.5 Albumin 4.1 05/02/19 05/02/19 01:30 11:03 WBC RBC Hgb Hct MCV MCH MCHC RDW Plt Count MPV Immature Gran % Neutrophils % Lymphocytes % Monocytes % Eosinophils % Basophils % Absolute Neutrophils Absolute Lymphocytes Absolute Monocytes Absolute Eosinophils Absolute Basophils Sodium Potassium Chloride Carbon Dioxide Anion Gap BUN Creatinine Estimated GFR/1.73 m2 Glucose Calcium Magnesium Total Bilirubin AST ALT Alkaline Phosphatase Troponin I < 0.05 < 0.05 NT-Pro-B Natriuret Pep Total Protein Albumin
--- NOTE | 2019-05-02 14:41 | PDOC.CMIN ---
- If Service Date Differs Date of service: 05/02/19 Time of Service: 14:41
[2019-05-02 15:51] LABS: Troponin I < 0.05 ng/mL (0.00-0.06)
--- NOTE | 2019-05-02 17:26 | W.PM.PROGNOT ---
Date of Service Date of service: 05/02/19 Time of Service: 17:26 Assessment and Plan Assessment and plan (1) CAD (coronary artery disease): Status: None Assessment and plan: Ongoing intermittent CP at rest in patient with known history of CAD and prior CABG. Work-up has been unremarkable, including ECHO and Nuclear Stress. At this time patient and his spouse are requesting LHC for definitive diagnosis, and are aware of the risks of recurrence of bleeding. Mrs. Osman is convinced that her 's ICH was a result of the use of Flomax, despite what other physicians have told her in the past. She believes that while off this medication, he will not experience recurrence of bleeding. Cardiology was consulted again and is in support of a diagnostic LHC. The patient understands the risks involved and is willing to undergo further test. - Discussed with [facility] cardiology. Patient is accepted in transfer, but given lack of bed availability will not be transferred today. Will continue to monitor. - Continue BB, recently initiated, high potency statin, and just uptitrated long-acting nitrate. Also on daily AURA-I. - Given history of ICH patient has been maintained off antiplatelet therapy and is currently not anticoagulated. - Continue to trend Troponins - all currently undetectable. Qualifiers: Associated angina: with unspecified angina Coronary Disease-Associated Artery/Lesion type: [place] artery [place] vs. transplanted heart: [place] heart Qualified Code(s): I25.119 - Atherosclerotic heart disease of [place] coronary artery with unspecified angina pectoris Subjective Subjective Interval history since last seen: 68 year old man with a prior history of CAD s/p CABG, admitted from [facility] Emergency Department on 05/01 with recurrence of CP. Mr. Osman has a Past Medical History significant for CAD s/p CABG X2 in 2016, along with 4 prior episodes of ICH with reported subdural hematomas in 2018. Other medical history includes BPH with LUTS, Urethral stricture, ED, DM, Hypothyroidism, DONALDO, HTN, and dyslipidemia. The patient was admitted here between April 22 - with reported nonexertional chest pain relieved by NTG. At that time he was ruled out with serial cardiac biomarkers, and underwent ECHO with a normal LVEF and without wall motion abnormalities, and subsequent Nuclear Stress test that did not show evidence of inducible ischemia. Cardiology was asked for input, and reported potential CP on the basis of underlying coronary disease, but without recommendations for anticoagulation or antiplatelet therapy given history of intracranial bleeding. The patient was initiated on low dose long-acting nitrate, and discharged home. However, he had recurrence of non-exertional discomfort the night prior to his admission, and presented back to the ED. The pain is reportedly in the chest, with radiation to the left shoulder and arm, and relieved by SL NTG. Work-up in the ED was essentially unremarkable, with an unchanged and non-ischemic appearing ECG, and negative troponins. He was referred for admission. The patient reports intermittent chest discomfort since admission, all relieved with NTG. Exam Narrative Exam Narrative: General: Patient appears comfortable, AAOX3, NAD Neck: Supple CV: Regular, nontachycardic, S1S2, No rubs, murmurs, or gallops. Pulmonary: Clear to auscultation bilaterally, no crackles, wheezing, or rhonchi Abdomen: + Bowel Sounds, soft, nontender, nondistended Vascular: No lower extremity edema Psych: Normal mood and affect. Objective Objective Clinical Data: Vital Signs Temperature 37 C 05/02/19 16:11 Temperature Source Temporal Artery Scan 05/02/19 16:11 Pulse 77 05/02/19 16:11 Pulse Rhythm Regular 05/02/19 12:38 Pulse 87 05/01/19 20:20 Respiratory Rate 18 05/02/19 16:11 Respiratory Effort Non-Labored 05/02/19 12:38 Respiratory Depth Normal 05/02/19 12:38 Respiratory Pattern Normal 05/02/19 12:38 Blood Pressure 165/89 H 05/02/19 16:11 Blood Pressure Mean 97 05/01/19 20:16 Pulse Oximetry 100 05/02/19 16:11 Oxygen Delivery Method Room Air 05/02/19 16:11 Oxygen Flow Rate 0 05/02/19 16:11 Pain Level 0 05/02/19 16:11 Comment 05/02/19 16:11 Intake & Output 05/01/19 05/02/19 05/02/19 23:59 11:59 23:59 Intake Total 940 / 940 Output Total 800 / 800 1550 / 1750 200 / 1750 Balance -800 / -800 -610 / -810 -200 / -810 Weight 92.3 kg 88.8 kg Intake: IV Oral 930 / 930 Output: Urine 800 / 800 1550 / 1750 200 / 1750 Other: Urine Color Yellow Yellow Yellow Urine Appearance Clear Clear Clear Urine Odor None None Voiding Methods Urinal Urinal Urinal Laboratory Results WBC 5.75 k/cumm (4.4-10.8) 05/01/19 16:15 RBC 4.85 m/cumm (4.50-6.00) 05/01/19 16:15 Hgb 12.2 g/dL (13.5-17.5) L 05/01/19 16:15 Hct 36.7 % (40.0-50.0) L 05/01/19 16:15 MCV 75.7 fL (80-95) L 05/01/19 16:15 MCH 25.2 pg (27.0-33.0) L 05/01/19 16:15 MCHC 33.2 g/dL (32.0-36.0) 05/01/19 16:15 RDW 15.8 % (11.8-14.1) H 05/01/19 16:15 Plt Count 219 x1000/uL (130-400) 05/01/19 16:15 MPV 9.0 fL (8.0-11.0) 05/01/19 16:15 Immature Gran % 0.2 05/01/19 16:15 Neutrophils % 66.5 05/01/19 16:15 Lymphocytes % 19.8 05/01/19 16:15 Monocytes % 9.2 05/01/19 16:15 Eosinophils % 3.3 05/01/19 16:15 Basophils % 1.0 05/01/19 16:15 Absolute Neutrophils 3.82 k/cumm (1.2-6.7) 05/01/19 16:15 Absolute Lymphocytes 1.14 k/cumm (1.2-3.4) L 05/01/19 16:15 Absolute Monocytes 0.53 k/cumm (0.11-0.7) 05/01/19 16:15 Absolute Eosinophils 0.19 k/cumm (0.0-0.7) 05/01/19 16:15 Absolute Basophils 0.06 k/cumm (0.0-0.2) 05/01/19 16:15 Sodium 138 mmol/L (136-145) 05/01/19 16:15 Potassium 3.8 mmol/L (3.5-5.1) 05/01/19 16:15 Chloride 104 mmol/L (98-107) 05/01/19 16:15 Carbon Dioxide 23.4 mmol/L (21.0-32.0) 05/01/19 16:15 Anion Gap 10.6 mmol/L (3-11) 05/01/19 16:15 BUN 13 mg/dL (7-18) 05/01/19 16:15 Creatinine 1.22 mg/dL (0.70-1.30) 05/01/19 16:15 Estimated GFR/1.73 m2 58.90 (mL/min/1.73m2) 05/01/19 16:15 Glucose 220 mg/dL (70-100) H 05/01/19 16:15 Calcium 8.8 mg/dL (8.5-10.1) 05/01/19 16:15 Magnesium 2.1 mg/dL (1.8-2.4) 05/01/19 16:15 Total Bilirubin 0.3 mg/dL (0.2-1.0) 05/01/19 16:15 AST 15 U/L (15-37) 05/01/19 16:15 ALT 30 U/L (16-63) 05/01/19 16:15 Alkaline Phosphatase 90 U/L (46-116) 05/01/19 16:15 Troponin I < 0.05 ng/mL (0.00-0.06) 05/02/19 15:25 NT-Pro-B Natriuret Pep 196 pg/mL (-299) 05/01/19 16:15 Total Protein 7.5 g/dL (6.4-8.2) 05/01/19 16:15 Albumin 4.1 g/dL (3.4-5.0) 05/01/19 16:15
[2019-05-02] MEDS: Citalopram 10 MG TAB PO (20:30)
[2019-05-02] MEDS: Gabapentin 300 MG CAP PO (20:30)
[2019-05-02] MEDS: Topiramate 25 MG TAB 75 MG PO (20:30)
[2019-05-02] MEDS: QUEtiapine 300 MG TAB PO (22:49)
[2019-05-03] VITALS (7 sets, daily range): BP systolic 106–155; BP diastolic 57–85; PULSE 72–87; RESP 17–20; TEMP 36.3–37.2; O2SAT 96–99
[2019-05-03 07:25] LABS: Abs Immature Grans 0.02 k/cumm (0.0-0.09); Absolute Basophil Count 0.06 k/cumm (0.0-0.2); Absolute Eosinophil Count 0.28 k/cumm (0.0-0.7); Absolute Lymphocyte Count 1.42 k/cumm (1.2-3.4); Absolute Monocyte Count 0.59 k/cumm (0.11-0.7); Absolute Neutrophil Count 4.14 k/cumm (1.2-6.7); Basophils % 0.9; Eosinophils % 4.3; HCT 35.6 % (40.0-50.0); HGB 11.7 g/dL (13.5-17.5); Immature Grans % 0.3; Lymphocytes % 21.8; Mean Corp. HGB Concentration 32.9 g/dL (32.0-36.0); Mean Corpuscular Volume 76.1 fL (80-95); Mean Platelet Volume 9.3 fL (8.0-11.0); Monocytes % 9.1; Neutrophils % 63.6; Platelet Count 221 x1000/uL (130-400); RBC 4.68 m/cumm (4.50-6.00); White Blood Cell Count 6.51 k/cumm (4.4-10.8)
[2019-05-03 07:35] LABS: BUN 18 mg/dL (7-18); CREATININE 1.32 mg/dL (0.70-1.30); Calcium 8.7 mg/dL (8.5-10.1); Chloride 106 mmol/L (98-107); Estimated GFR 53.78 (mL/min/1.73m2); Glucose 159 mg/dL (70-100); Magnesium 2.2 mg/dL (1.8-2.4); Potassium 3.6 mmol/L (3.5-5.1); Sodium 139 mmol/L (136-145)
[2019-05-03] MEDS: Levothyroxine 50 MCG TAB PO (07:44)
[2019-05-03] MEDS: Allopurinol 300 MG TAB PO (08:25)
[2019-05-03] MEDS: Cholecalciferol (Vitamin D3) 1,000 UNIT TAB 1000 UNITS PO (08:25)
[2019-05-03] MEDS: Lisinopril 20 MG TAB PO (08:26)
[2019-05-03] MEDS: Glimepiride 2 MG TAB 4 MG PO (08:26)
[2019-05-03] MEDS: Gabapentin 100 MG CAP PO (08:26)
[2019-05-03] MEDS: Bisoprolol 5 MG TAB PO (08:27)
[2019-05-03] MEDS: Magnesium Oxide 400 MG TAB PO (08:27)
[2019-05-03] MEDS: Pantoprazole 40 MG TABCR PO (08:27)
[2019-05-03] MEDS: metFORMIN 500 MG TAB 1000 MG PO (08:27)
[2019-05-03] MEDS: Normal Saline Flush 10 ML SYR IVP (09:45)
[2019-05-03] MEDS: Potassium Chloride 20 MEQ TABCR 40 MEQ PO (10:35)
[2019-05-03] MEDS: Acetaminophen 325 MG TAB PO (13:26)
[2019-05-03] MEDS: Isosorbide Mononitrate 30 MG TABCR 60 MG PO (13:27)
--- NOTE | 2019-05-03 14:32 | W.PM.DS.N ---
Date of service: 05/03/19 Time of Service: 14:58 DS: Diagnosis Discharge Diagnosis (1) CAD (coronary artery disease): Status: None Discharge Plan Disposition [facility] Condition: Stable Discharge Details Chief Complaint: Chest Pain Clinical Impression: Coronary artery disease, Angina pectoris Reason For Visit: CHEST PAIN Admit Date/Time: 05/01/19 21:32 Admit Provider: Unruly Eller Attending Provider: Unruly Eller Primary Care Provider: Alisa Ramirez ED Provider: Dilshad Penny Hospital Course Hospital Course: Chief Complaint: Chest Pain HPI: 68 year old man with a prior history of CAD s/p CABG, admitted from [facility] Emergency Department on 05/01 with recurrence of CP. Mr. Osman has a Past Medical History significant for CAD s/p CABG X2 in 2015, along with 4 prior episodes of ICH with reported subdural hematomas in 2018. Other medical history includes BPH with LUTS, Urethral stricture, ED, DM, Hypothyroidism, DONALDO, HTN, and dyslipidemia. The patient was admitted here between April 22 - with reported nonexertional chest pain relieved by NTG. At that time he was ruled out with serial cardiac biomarkers, and underwent ECHO with a normal LVEF and without wall motion abnormalities, and subsequent Nuclear Stress test that did not show evidence of inducible ischemia. Cardiology was asked for input, and reported potential CP on the basis of underlying coronary disease, but without recommendations for anticoagulation or antiplatelet therapy given history of intracranial bleeding. The patient was initiated on low dose long-acting nitrate, and discharged home. However, he had recurrence of non-exertional discomfort the night prior to his admission, and presented back to the ED. The pain is reportedly in the chest, with radiation to the left shoulder and arm, and relieved by SL NTG. Work-up in the ED was essentially unremarkable, with an unchanged and non-ischemic appearing ECG, and negative troponins. He was referred for admission. The patient reports intermittent chest discomfort since admission, all relieved with NTG. He has had no events on telemetry. No other events reported overnight. Remains afebrile. (1) CAD (coronary artery disease): Ongoing intermittent CP at rest in patient with known history of CAD and prior CABG. Work-up has been unremarkable, including ECHO and Nuclear Stress during last hospitalization approximately one week ago. At this time patient and his spouse are requesting LHC for definitive diagnosis, and are aware of the risks of recurrence of intracranial bleeding. Mrs. sOman is convinced that her 's ICH was a result of the use of Flomax, despite what other physicians have told her in the past. She believes that while off this medication, he will not experience recurrence of bleeding. Cardiology was consulted again and is in support of a diagnostic LHC. The patient understands the risks involved and is willing to undergo further test. - Discussed with [facility] cardiology. Patient is accepted in transfer, with bed available today. - Continue BB, recently initiated, high potency statin, and just uptitrated long-acting nitrate. Also on daily AURA-I. - Given history of ICH patient has been maintained off antiplatelet therapy and is currently not anticoagulated. - Troponins trended and all currently undetectable. Please note that Mr. Osman has a mild anemia, which appears microcytic. Review of prior labwork reveals evidence of low TIBC, but also with low iron and low normal Ferritin. Unsure of prior work-up, but needs consideration if long-term antiplatelet therapy or anticoagulation is to be considered. Home Meds and New Rx's Prescriptions: Continued gabapentin 100 mg capsule 100 mg PO QAM RF: 0 acetylcysteine [NAC] 600 mg capsule 600 mg PO BID RF: 0 cod liver oil Capsule 1 cap PO DAILY RF: 0 Refresh Tears 0.5 % drops 1 drp OP 4-6XD PRNRF: 0 bisacodyl [Dulcolax (bisacodyl)] 5 mg tablet,delayed release (DR/EC) 5 mg PO DAILY PRNRF: 0 tramadol 50 mg tablet 50 mg PO DAILY MDD 1 tablet/day PRN (Reason: pain) 30 Days Qty: 30 RF: 0 polyethylene glycol 3350 [Miralax] 17 GM powder in packet 17 g PO DAILY PRNQty: 255 RF: 0 nitroglycerin [Nitrostat] 0.4 MG tablet, sublingual 0.4 mg Sublingual as directed RF: 0 docusate sodium [Dulcolax Stool Softener (dss)] 100 MG capsule 100 mg PO DAILY PRNRF: 0 Levemir FlexTouch U-100 Insuln 100 UNIT/1 ML insulin pen 100 units subcut BID RF: 0 lisinopril 20 MG tablet 20 mg PO DAILY RF: 0 carvedilol 25 MG tablet 25 mg PO BID Qty: 120 RF: 4 riboflavin (vitamin B2) [Vitamin B-2] 100 mg tablet 400 mg PO DAILY RF: 0 topiramate [Topamax] 25 mg capsule, sprinkle 75 mg PO HS RF: 0 levothyroxine 50 MCG tablet 50 mcg PO DAILY@0730 RF: 0 allopurinol 300 MG tablet 300 mg PO DAILY RF: 0 quetiapine [Seroquel] 300 MG tablet 300 mg PO HS RF: 0 rosuvastatin [Crestor] 20 MG tablet 20 mg PO HS RF: 0 metformin [Glucophage] 1,000 mg Tablet 1,000 mg PO BID RF: 0 citalopram 10 mg tablet 10 mg PO HS RF: 0 glimepiride [Amaryl] 4 MG tablet 4 mg PO DAILY@0800 RF: 0 acetaminophen [Tylenol] 325 MG tablet 2 tab PO Q4H PRN PRNRF: 0 gabapentin 300 mg capsule 300 mg PO HS RF: 0 magnesium oxide 400 mg Capsule 400 mg PO DAILY RF: 0 cholecalciferol (vitamin D3) [Vitamin D3] 1,000 unit Tablet 1,000 unit PO DAILY RF: 0 pantoprazole [Protonix] 40 mg tablet,delayed release (DR/EC) 40 mg PO DAILY Qty: 30 RF: 0 isosorbide mononitrate 30 mg tablet extended release 24 hr 30 mg PO DAILY@1400 Qty: 30 RF: 0 Discharge Instructions Activity:: Ambulate self Equipment/Supplies:: No Equipment Needed Diet:: Low Sodium Discharge Orders Discharge Orders: Discharge Order (Routine); Ordered 05/03/19 Ordered By: Piotr Vizcaino DS: Summary Status at Discharge Functional status at discharge: independent ambulation Overall status at discharge: patient is back to baseline Mental Status: mental status grossly normal Speech and Movement: speech and movement normal Mood: congruent mood Affect: normal affect Exam Psych Mental Status: mental status grossly normal Speech and Movement: speech and movement normal Mood: congruent mood Affect: normal affect DS: Data Vitals/I&O Vitals and I&O: Vital Signs Temperature 36.8 C 05/03/19 13:29 Temperature Source Tympanic 05/03/19 13:29 Pulse 79 05/03/19 13:29 Pulse Rhythm Regular 05/03/19 13:33 Pulse 87 05/01/19 20:20 Respiratory Rate 20 05/03/19 13:29 Respiratory Effort Non-Labored 05/03/19 13:33 Respiratory Depth Normal 05/03/19 13:33 Respiratory Pattern Normal 05/03/19 13:33 Blood Pressure 155/85 H 05/03/19 13:29 Blood Pressure Mean 97 05/01/19 20:16 Pulse Oximetry 98 05/03/19 13:29 Oxygen Delivery Method Room Air 05/03/19 13:29 Oxygen Flow Rate 0 05/03/19 13:29 Pain Level 1 05/03/19 13:29 Comment 05/02/19 16:11 Intake & Output 05/02/19 05/03/19 05/03/19 23:59 11:59 23:59 Intake Total 480 / 1420 850 / 1490 640 / 1490 Output Total 1890 / 3440 600 / 750 150 / 750 Balance -141 / 250 / 740 490 / 740 Weight 89.5 kg Intake: IV Oral 480 / 1410 840 / 1480 640 / 1480 Output: Urine 1890 / 3440 600 / 750 150 / 750 Other: Urine Color Yellow Yellow Yellow Urine Appearance Clear Clear Clear Urine Odor Normal None Voiding Methods Urinal Urinal Urinal Data Completed and Pending Completed studies during hospitalization [Text1]: Exam(s) 04/24/2019 a US:US echocardiogram APPROVED REPORT Conclusion Left Ventricle : The left ventricle is normal size. The left ventricular systolic function is normal. There is normal LV segmental wall motion. LVEF is 55-59%. Right Ventricle : The right ventricle is normal size. The right ventricular systolic function is normal. Left Ventricle : The left ventricular diastolic function is normal. Atria : The left atrium size is normal. The right atrium size is normal. Aortic Valve : Aortic valve is trileaflet. Aortic valve leaflets are sclerotic but open well. There is no aortic valvular stenosis. Mild aortic regurgitation. Mitral Valve : Mitral valve leaflets are thickened. Normal mitral valve excursion. Mild to moderate mitral regurgitation. Tricuspid Valve : Tricuspid valve leaflets are thickened but open well. Mild tricuspid regurgitation. Pulmonic Valve : The pulmonary valve is normal in structure. Great Vessels : IVC is normal in size and collapses >50% with inspiration. RVSP is estimated to be between 24-30 mmHg. Compared to prior echocardiogram dated 12/19/2015 there is no significant change. EXAM: Comprehensive 2D, Doppler, and color-flow Echocardiogram --------- Exam(s) 04/24 a NM:NM MPI rest & stress grp APPROVED REPORT Exam: Pharmacologic Patient Location: In-Patient Room/Bed: 221 Stress Nurse: Farzaneh Oshea RN BMI: 27.83 Indications: Chest pain. GI vs Angina. Medical History Medical History: Angina, CAD s/p CABG, CAD s/p stent, Carotid artery disease, Diabetic ??? Insulin, Hyperlipidemia, Stroke/TIA Cardiac Medications: Topiramate. Rosuvastatin. Nitrogylcerin. Magnesium. Lisinopril. Carvedilol. Allergies: Amoxicillin. Penicillins. sulfamethoxazotrimethoprim Cardiac Risk Factors: HTN, Hyperlipidemia, Diabetes (insulin), Former Smoker, CVD Previous Cardiac Procedures: CABG Pretest Chest Pain Characteristics: Non-exertional Chest pain Physical Disabilities: Back Lung Sounds: Clear to auscultation Heart Sounds: Regular Stress Test Details Test: Pharmacologic stress testing performed using 0.4 mg of regadenoson per 5 mL given IV over 10 seconds. Reason for pharmacologic stress test: physical limitation. Nuclear Acquisition: Rest Tc-99m/Stress Tc-99m 1 day Rest Isotope: Tc-99m Sestamibi. Dose: 11.5 Date: 04/24/2019 Injection Time: 1000 Stress Isotope: Tc-99m Sestamibi. Dose: 37.0 Date: 04/24/2019 Injection Time: 1130 HR Max Heart Rate (APMHR): 151 bpm Resting HR Supine: 70 bpm Target HR (85% APMHR): 128 bpm Max HR Achieved: 89 bpm % of APMHR: 58 Recovery HR: 79 bpm BP Resting BP Supine: 122/70 mmHg Max BP: 130/70 mmHg Recovery BP: 130/70 mmHg ECG Resting ECG: Sinus Rhythm Stress ECG: Sinus Rhythm Time of Change: 01:15 Arrhythmia: None Clinical Exercise duration: min sec Stress ECG Conclusion 1. There is no evidence of inducible ischemia on the ECG portion of this exam. Test Summary Supine 70 122/70 1 min post injection 83 118/74 3 mins post injection 89 130/60 6 mins post injection 79 130/70 MPI Conclusion Ejection fraction was 52% with stress. There was no wall motion abnormality. There was no evidence of stress-induced ischemia. Compared to prior MPI stress test, there is no change. ----- Exam(s) 05/01/2019 a RAD:XR chest 2V PA & lateral EXAM: XR CHEST 2V PA LATERAL INDICATION: CP, hx of CAD. COMPARISON: XR CHEST 2V PA LATERAL from 03/12/2019 TECHNIQUE: 2D digital imaging was performed. FINDINGS: Heart size and pulmonary vasculature are within normal limits. The lungs are clear. No pleural effusion or pneumothorax is identified. Sternotomy wires are in place. There is an old compression deformity at the thoracolumbar junction. Degenerative changes are seen in the spine. IMPRESSION: No acute pulmonary process. Labs on day of discharge: Labs from last 24 hours 05/03/19 05/03/19 05/02/19 06:37 06:37 15:25 WBC 6.51 RBC 4.68 Hgb 11.7 L Hct 35.6 L MCV 76.1 L MCH 25.0 L MCHC 32.9 RDW 16.0 H Plt Count 221 MPV 9.3 Immature Gran % 0.3 Neutrophils % 63.6 Lymphocytes % 21.8 Monocytes % 9.1 Eosinophils % 4.3 Basophils % 0.9 Absolute Neutrophils 4.14 Absolute Lymphocytes 1.42 Absolute Monocytes 0.59 Absolute Eosinophils 0.28 Absolute Basophils 0.06 Sodium 139 Potassium 3.6 Chloride 106 Carbon Dioxide 19.0 L Anion Gap 14.0 H BUN 18 Creatinine 1.32 H Estimated GFR/1.73 m2 53.78 Glucose 159 H Calcium 8.7 Magnesium 2.2 Troponin I < 0.05 PFSH Medical History CAD (coronary artery disease) Chronic low back pain Chronic subdural hematoma (Chronic) Colon polyps Depression Diastasis recti DM type 2 (diabetes mellitus, type 2) Fatty liver GERD (gastroesophageal reflux disease) Gout H/O alcohol abuse Headaches due to 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 Hx of deep venous thrombosis Hyperlipidemia Hypertension Hypothyroidism MRSA infection Obstructive sleep apnea Pituitary abnormality (Acute) Right sided weakness (Acute) Urethral stricture Vitamin D deficiency Surgical History Appendectomy (06/01/16) Colonoscopy - MAC 2010-5year f/u 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 electroconvulsive therapy Extraction of cataract facial lesion removal Repair of inguinal hernia (08/05/17) right inguinal hernia repair by Dr Arroyo on 08/05/17 Repair of umbilical hernia Social History Smoking/Tobacco Use Status: Never Alcohol Intake: never Drug use: Never Substance use type: does not use Household members: spouse Housing: house Pets and animals: Yes Pets and animals: dog(s) Do you feel safe at home: Yes Do you feel safe in your relationship?: Yes
--- NOTE | 2019-05-03 14:52 | CHAPLAIN ---
I visited with Fredo and his Madiha (who is a former [employer] employee) and he had just learned that he is being transferred to [facility] at 4 p.m. today. Fredo said he is anxious to find out answers about why he is having chest pain since his stress test and other tests have been negative. Madiha is Fredo's primary support.
--- NOTE | 2019-05-03 15:03 | PDOC.CMDIS ---
- If Service Date Differs Date of service: 05/03/19 Time of Service: 15:03 LACE Index Scoring Tool - Questions: Length of Stay (in days): 2 Acuity (Admit via E.D.?): Yes Comorbidities: Cerebrovascular Disease E.D. Visits: 12 - Answers: Total Score: 10 Risk of Readmission: High Risk Care Management Discharge Reason for Hospitalization: chest pain Discharge Plan: Fredo will be transferred to [facility] [place] for a cardiac catheterization. He will transport via anbulance arranged by nursing supervision. Patient/Family Education Needs: Per providers at [facility]
--- NOTE | 2019-05-03 16:03 | NUR.NOTE ---
Nursing Note: Report phone to Ariadne on [facility] [place] [facility] [place] questions answered
== END 2019-05-03 15:53 | disposition short-term general hospital (02) ==
LOC: ER 21:46 → MS 22:41
PROVIDERS: Admitting Provider Internal Medicine; Emergency Provider Emergency Medicine; PCP Family Medicine; Visit Provider Internal Medicine
DX: I25.10 Atherosclerotic heart disease of native coronary artery without angina pectoris (principal); R07.2 Precordial pain; Z95.1 Presence of aortocoronary bypass graft; Z86.2 Personal history of diseases of the blood and blood-forming organs and certain disorders involving the immune mechanism; N40.1 Benign prostatic hyperplasia with lower urinary tract symptoms; E11.9 Type 2 diabetes mellitus without complications; E03.9 Hypothyroidism, unspecified; I10 Essential (primary) hypertension; G47.33 Obstructive sleep apnea (adult) (pediatric); E78.5 Hyperlipidemia, unspecified; E66.9 Obesity, unspecified; Z79.4 Long term (current) use of insulin
CPT/HCPCS: 36415; 80048; 80053; 93005; 99214; 99220; 99233; 99238; 99254; 99285; 71046; 83735; 83880; 84484; 85025; 93010; 99217; 99284; G0378; J3490

== ENCOUNTER → 2019-05-02 07:34 | Outpatient (BNVA) | payer MEDICARE, OTHER, SELFPAY | PROVIDERS: PCP Family Medicine; Referring Provider Family Medicine; Visit Provider Internal Medicine Cardiovascular Disease | DX: R69 Illness, unspecified (principal) ==

== ENCOUNTER → 2019-05-16 09:57 | Outpatient (BNVA) | payer MEDICARE, OTHER, SELFPAY | PROVIDERS: PCP Family Medicine; Referring Provider Family Medicine; Visit Provider Internal Medicine Cardiovascular Disease | DX: I25.10 Atherosclerotic heart disease of native coronary artery without angina pectoris (principal); I10 Essential (primary) hypertension; E11.9 Type 2 diabetes mellitus without complications; Z79.4 Long term (current) use of insulin; Z95.1 Presence of aortocoronary bypass graft; E78.5 Hyperlipidemia, unspecified | CPT/HCPCS: 99214 ==

== ENCOUNTER 2019-05-24 15:14 | Emergency (ER) | payer MEDICARE, OTHER, SELFPAY ==
[2019-05-24] VITALS (60 sets, daily range): BP systolic 105–194; BP diastolic 70–103; PULSE 73–97; RESP 15–30; TEMP 37.2; O2SAT 90–100
--- NOTE | 2019-05-24 15:22 | ED.GENADUL_ITS ---
Discharge Plan Disposition Patient Disposition: HOME Condition: Good Discharge Details Chief Complaint: Chest Pain Clinical Impression: Chest pain Primary Care Provider: Alisa Ramirez ED Provider: Tim Oleary Home Meds and New Rx's Prescriptions: New isosorbide mononitrate 30 mg tablet extended release 24 hr 30 mg PO DAILY Qty: 20 RF: 0 Continued gabapentin 100 mg capsule 100 mg PO QAM RF: 0 acetylcysteine [NAC] 600 mg capsule 600 mg PO DAILY RF: 0 cod liver oil Capsule 1 cap PO DAILY RF: 0 Refresh Tears 0.5 % drops 1 drp OP 4-6XD PRNRF: 0 bisacodyl [Dulcolax (bisacodyl)] 5 mg tablet,delayed release (DR/EC) 5 mg PO DAILY PRNRF: 0 metoprolol succinate 50 mg tablet extended release 24 hr 50 mg PO DAILY RF: 0 ranolazine 500 mg tablet extended release 12 hr 500 mg PO BID RF: 0 isosorbide mononitrate 60 mg tablet extended release 24 hr 60 mg PO DAILY RF: 0 citalopram 20 mg tablet 10 mg PO QHS RF: 0 polyethylene glycol 3350 [Miralax] 17 GM powder in packet 17 g PO DAILY PRNQty: 255 RF: 0 nitroglycerin [Nitrostat] 0.4 MG tablet, sublingual 0.4 mg Sublingual as directed RF: 0 docusate sodium [Dulcolax Stool Softener (dss)] 100 MG capsule 100 mg PO DAILY PRNRF: 0 Levemir FlexTouch U-100 Insuln 100 UNIT/1 ML insulin pen 100 units subcut BID RF: 0 riboflavin (vitamin B2) [Vitamin B-2] 100 mg tablet 400 mg PO DAILY RF: 0 topiramate [Topamax] 25 mg capsule, sprinkle 75 mg PO HS RF: 0 levothyroxine 50 MCG tablet 50 mcg PO DAILY@0730 RF: 0 allopurinol 300 MG tablet 300 mg PO DAILY RF: 0 quetiapine [Seroquel] 300 MG tablet 300 mg PO HS RF: 0 rosuvastatin [Crestor] 20 MG tablet 20 mg PO HS RF: 0 metformin [Glucophage] 1,000 mg Tablet 1,000 mg PO BID RF: 0 lisinopril 20 mg Tablet 20 mg PO DAILY RF: 0 acetaminophen [Tylenol] 325 MG tablet 2 tab PO Q4H PRN PRNRF: 0 gabapentin 300 mg capsule 300 mg PO HS RF: 0 magnesium oxide 400 mg Capsule 400 mg PO DAILY RF: 0 cholecalciferol (vitamin D3) [Vitamin D3] 1,000 unit Tablet 1,000 unit PO DAILY RF: 0 pantoprazole [Protonix] 40 mg tablet,delayed release (DR/EC) 40 mg PO DAILY Qty: 30 RF: 0 Discharge Instructions Additional Instructions: Cardiology at [facility] did not feel you required transfer to their facility or admission at this time they do recommend increasing your imdur (isosorbide) to 90mg daily follow up with your clinical care manager within 1 week if you have worsening pain, fevers or shortness of breath return to the emergency department Referrals: Sergio Ppapas MD [MD CONSULTING PHYSICIAN] - Medical Decision Making <Yasmani Torrez MD - Last Filed: 05/24/19 18:48> 68-year-old male with past medical history significant for CABG in 2016, intracranial hemorrhage requiring bur hole who had multiple admissions recently for chronic chest pain and [place] [facility] [place] [facility] [place] April for possible cath but was felt to be too high risk for bleeding comes in with continued chest kenny but constant on the left side of his chest and radiation down his left arm, denies fevers, dyspnea, cough, n/v, diaphoresis. No pitting edema, no calf pain and no significant hypoxia or tachycardia. EKG unchanged, will send troponin. he is declining pain medication at this time and given his prior sdh will hold on asa. No tearing back pain andnormal vascular exam so doubt dissection. No hypoxia or tachycardia so doubt PE and no evidence of dvt on exam pt's pain gone and xray and labs unremarkable, remains stable. Will [place]sc[place] [facility] [place] with [place]. Gtz [place] [facility] [place] they did not feel he required transfer or admission at this time and recommended d/c if delta troponin negative. They did recommend increasing his imdur to 90mg daily and f/u with local cardiology. I spoke with Fredo and he was upset that he was not being transferred. I discussed that I could not force them to accept a transfer and offered to admit him here for observation which he declined. He is willing to stay for a second troponin pt will be signed out pending delta troponin Differential Diagnosis Differential Diagnosis: nstemi, ptx, acs Medical Records Medical records reviewed: Yes I reviewed the patient's medical records. Imaging Data Radiologic Study: Attestation: I personally reviewed and interpreted this imaging study as follows: Imaging: X-Ray Radiologist's impression: IMPRESSION: Limited exam due to rotation. No acute abnormality is seen Lab Data Lab results reviewed: Yes I reviewed the patient's lab results. ECG Data Attestation: I personally reviewed and interpreted this ECG (s) as follows: Prior ECG tracings: available for review Interpretation: sinus rhythm, rate of 78, pr 124, no acute st t wave ischemic findings <Tim Oleary MD - Last Filed: 05/24/19 21:40> Patient presented to ED with continued chest pain. He is followed by [facility] cardiology and saw Dr. Pappas last week. Patient seen and evaluated by Dr. Torrez initially. Dr. Torrez spoke with cardiology at [facility]. No recommendation for transfer or admission. Increase Imdur to 90 a day and follow up with Dr. Pappas next week. Patient held in ED for repeat EKG and troponin which are normal. Patient discharged home. Lab Data Lab results reviewed: Yes I reviewed the patient's lab results. ECG Data Attestation: I personally reviewed and interpreted this ECG (s) as follows: Prior ECG tracings: available for review Interpretation: Normal sinus rhythm at a rate of 78. Normal axis and intervals. Nonspecific ST changes which are unchanged from previous. Nothing acute. HPI <Yasmani Torrez MD - Last Filed: 05/24/19 18:48> General Mode of arrival: ambulatory . Date/Time Provider Initiated Documentation: 05/24/19 15:17 . Limitations to Documentation: no limitations . Information obtained by: patient . History of Present Illness 68 year old M presents to the emergency department with the chief complaint of chest pain, described as moderate, Quality is described as aching, and is localized to the chest. Patient started experiencing this day(s) (1) and it has been intermittent. No relieving factors improve symptom(s), No exacerbating factors reported . Patient notes no other symptoms.. Patient did receive the following treatments prior to arrival, none Related Data Home Medications Medication Instructions Recorded Confirmed allopurinol 300 mg PO DAILY 01/24/13 05/24/19 levothyroxine 50 mcg PO DAILY@0730 08/06/13 12/04/19 quetiapine [Seroquel] 300 mg PO HS 01/24/13 05/24/19 rosuvastatin [Crestor] 20 mg PO HS 03/22/17 05/24/19 docusate sodium [Dulcolax Stool 100 mg PO DAILY PRN 04/08/17 05/24/19 Softener (dss)] nitroglycerin [Nitrostat] 0.4 mg SUBLINGUAL as directed 04/08/17 05/24/19 polyethylene glycol 3350 [Miralax] 17 g PO DAILY PRN #255 gm 04/08/17 05/24/19 acetaminophen [Tylenol] 2 tab PO Q4H PRN PRN tab 05/24/17 05/24/19 Levemir FlexTouch U-100 Insuln 100 units SUBCUT BID 08/04/17 05/24/19 gabapentin 300 mg capsule 300 mg PO HS cap 07/27/18 05/24/19 magnesium oxide 400 mg PO DAILY 09/04/18 05/24/19 cholecalciferol (vitamin D3) 1,000 unit PO DAILY 11/11/18 05/24/19 [Vitamin D3] gabapentin 100 mg capsule 100 mg PO QAM 12/12/18 05/24/19 metformin [Glucophage] 1,000 mg PO BID 03/08/19 05/24/19 riboflavin (vitamin B2) 100 mg 400 mg PO DAILY tab 03/28/19 05/24/19 tablet topiramate 25 mg sprinkle capsule 75 mg PO HS cap 03/28/19 05/24/19 bisacodyl 5 mg tablet,delayed 5 mg PO DAILY PRN tab 04/17/19 05/24/19 release carboxymethylcellulose sodium 0.5 1 drp OP 4-6XD PRN 04/17/19 05/24/19 % eye drops cod liver oil 1 cap PO DAILY 04/17/19 05/24/19 pantoprazole [Protonix] 40 mg PO DAILY #30 tab 04/25/19 05/24/19 isosorbide mononitrate 60 mg 60 mg PO DAILY 05/10/19 05/24/19 tablet,extended release 24 hr metoprolol succinate 50 mg 50 mg PO DAILY 05/10/19 05/24/19 tablet,extended release 24 hr ranolazine 500 mg tablet,extended 500 mg PO BID 05/10/19 05/24/19 release,12 hr acetylcysteine 600 mg capsule 600 mg PO DAILY cap 05/16/19 05/24/19 citalopram 20 mg tablet 10 mg PO QHS tab 05/16/19 05/24/19 isosorbide mononitrate 30 mg PO DAILY #20 tab 05/24/19 lisinopril 20 mg PO DAILY 05/24/19 05/24/19 Previous Rx's Medication Instructions Recorded acetaminophen [Tylenol] 2 tab PO Q4H PRN PRN tab 05/24/17 pantoprazole [Protonix] 40 mg PO DAILY #30 tab 04/25/19 isosorbide mononitrate 30 mg PO DAILY #20 tab 05/24/19 Allergies Allergy/AdvReac Type Severity Reaction Status Date / Time amoxicillin Allergy Severe breathing Unverified 05/24/19 15:38 difficuty and vomiting Penicillins Allergy Skin Rash Unverified 05/24/19 15:38 sulfamethoxazole Allergy Skin Rash Unverified 05/24/19 15:38 [From Bactrim] trimethoprim [From Bactrim] Allergy Skin Rash Unverified 05/24/19 15:38 oxycodone HCl [From Percocet] AdvReac Severe Contraindic Unverified 05/24/19 15:38 ated oxycodone terephthalate AdvReac Severe Contraindic Unverified 05/24/19 15:38 [From Percodan] ated General Stated Complaint: Chest Pain MADELIN: 3 Review of Systems <Yasmani Torrez MD - Last Filed: 05/24/19 18:48> All systems reviewed & are unremarkable except as noted in HPI and below Constitutional Constitutional: Denies chills, Denies fever(s) and Denies weakness Cardiovascular Cardiovascular: Denies dyspnea Respiratory Respiratory: Denies cough and Denies dyspnea Gastrointestinal Gastrointestinal: Denies abdominal pain, Denies nausea and Denies vomiting Musculoskeletal Musculoskeletal: Denies joint swelling Neurologic Neurologic: Denies weakness Allergic/Immunologic Allergic/Immunologic: Denies urticaria PFSH <Yasmani Torrez MD - Last Filed: 05/24/19 18:48> Social History Smoking/Tobacco Use Status: Never Alcohol Intake: former Drug use: Never Substance use type: does not use Household members: spouse Housing: house Pets and animals: Yes Pets and animals: dog(s) Do you feel safe at home: Yes Do you feel safe in your relationship?: Yes Exam <Yasmani Torrez MD - Last Filed: 05/24/19 18:48> Const General: no acute distress Orientation: alert HENMT Head: normal to inspection Ears: external ears normal General nose exam: external nose normal Mouth: moist mucous membranes Eyes General: appearance normal, both eyes and all related structures Neck Neck: normal visual inspection Resp Effort & Inspection: normal respiratory effort and able to speak in complete sentences Cardio Rate: regular rate Skin General skin exam: no rashes or lesions noted Neuro General: alert and oriented x3 Extrem General: normal to inspection Psych Mental Status: mental status grossly normal Sign Out <Yasmani Torrez MD - Last Filed: 05/24/19 18:48> Sign Out Data: Sign Out Comment: follow up on second troponin Last updated by Yasmani Torrez MD at 05/24/19 19:36
--- NOTE | 2019-05-24 15:42 | DI.RAD_ITS ---
EXAM: XR PORTABLE CHEST AP INDICATION: chest pain. COMPARISON: XR CHEST 2V PA AND LATERAL from 05/01/2019 TECHNIQUE: 2D digital imaging was performed. FINDINGS: The patient is rotated. Sternal wires and mediastinal clips related to CABG are again noted. The ao rta is tortuous. The lungs appear clear. IMPRESSION: Limited exam due to rotation. No acute abnormality is seen.
[2019-05-24 16:17] LABS: Abs Immature Grans 0.01 k/cumm (0.0-0.09); Absolute Basophil Count 0.05 k/cumm (0.0-0.2); Absolute Eosinophil Count 0.18 k/cumm (0.0-0.7); Absolute Lymphocyte Count 0.95 k/cumm (1.2-3.4); Absolute Monocyte Count 0.54 k/cumm (0.11-0.7); Absolute Neutrophil Count 4.21 k/cumm (1.2-6.7); Basophils % 0.8; HCT 35.8 % (40.0-50.0); HGB 11.9 g/dL (13.5-17.5); Immature Grans % 0.2; Mean Corp. HGB Concentration 33.2 g/dL (32.0-36.0); Mean Corpuscular Hemoglobin 25.3 pg (27.0-33.0); Mean Platelet Volume 8.8 fL (8.0-11.0); Monocytes % 9.1; Neutrophils % 70.9; Platelet Count 209 x1000/uL (130-400); RBC 4.71 m/cumm (4.50-6.00); RBC Distribution Width 15.5 % (11.8-14.1); White Blood Cell Count 5.94 k/cumm (4.4-10.8)
[2019-05-24] MEDS: Aspirin E.C. 325 MG TABEC PO (16:27)
[2019-05-24 16:29] LABS: INR 1.1 (0.9-1.1); PTT Activated 26.4 sec (21.0-31.4); Prothrombin Time 10.7 sec (9.3-11.0)
[2019-05-24 16:48] LABS: ALT 21 U/L (16-63); AST 11 U/L (15-37); Alkaline Phosphatase 90 U/L (46-116); Anion Gap 10.9 mmol/L (3-11); BUN 13 mg/dL (7-18); Bilirubin, Total 0.3 mg/dL (0.2-1.0); CO2 22.1 mmol/L (21.0-32.0); Calcium 8.3 mg/dL (8.5-10.1); Chloride 103 mmol/L (98-107); Glucose 249 mg/dL (74-106); Lipase 363 U/L (73-393); Magnesium 2.1 mg/dL (1.8-2.4); Potassium 4.2 mmol/L (3.5-5.1); Sodium 136 mmol/L (136-145); Total Protein 7.4 g/dL (6.4-8.2)
[2019-05-24 17:08] LABS: Troponin I < 0.05 ng/Ml (<0.06)
[2019-05-24 21:16] LABS: Troponin I < 0.05 ng/Ml (<0.06)
== END 2019-05-24 21:50 | disposition home or self-care (01) ==
PROVIDERS: Emergency Medicine; Emergency Provider Emergency Medicine; PCP Family Medicine
DX: R07.9 Chest pain, unspecified (principal); Z95.1 Presence of aortocoronary bypass graft; E11.9 Type 2 diabetes mellitus without complications; Z79.4 Long term (current) use of insulin
CPT/HCPCS: 36415; 80053; 83690; 93005; 99284; 71045; 83735; 84484; 85025; 85610; 85730; 93010

== ENCOUNTER 2019-06-08 09:36 | Outpatient (CLI) | payer MEDICARE, OTHER, SELFPAY ==
[2019-06-08 09:51] VITALS: BP 141/81; PULSE 84; RESP 18; TEMP 37; O2SAT 98
[2019-06-08] MEDS: Bupivacaine 0.5% Pres-Free 10 ML VIAL IJ (10:16)
--- NOTE | 2019-06-08 10:21 | DI.RAD_ITS ---
EXAM: XR PAIN CLINIC LUMBAR SP 2V CLINICAL HISTORY: DX: Lumbar Spondylosis, lumbar medial branch block rt COMPARISON: No exams were available for comparison FINDINGS: C-arm fluoroscopy utilized by Dr. Boucher during reported medial branch block. Hard copy shows needle p lacement adjacent to the pedicles at what appear to be the L3, L4, L5 and S1 levels on the right. FLUORO TIME: 34.1 seconds IMPRESSION:
[2019-06-08] MEDS: Omnipaque 240 MG/ML 50 ML BTL IJ (10:28)
[2019-06-08 10:33] VITALS: BP 144/83; PULSE 79; RESP 20; O2SAT 99
--- NOTE | 2019-06-22 10:08 | PDOC.PAIN ---
Pain Clinic Procedure Note Procedure Note Procedure Note: Lumbar/Sacral Medial Branch Blocks LANDRY RAY has been referred to the [facility] for lumbar/sacral medial branch blocks. COMMENTS: I did review the recent notes from our clinic by Ms. Camacho. DX: Lumbosacral spondylosis without myelopathy Patient was interviewed and the medical record reviewed. There were no medical, pharmacologic, radiographic or other structural contraindications to attempting fluoroscopically guided local anesthetic lumbar/sacral medial branch blocks. Risks and expected side effects as well as potential benefit of the procedure were reviewed and voiced concerns addressed. The printed consent form was signed and witnessed. Standard time-out procedure was performed. Patient was placed in the prone position on the fluoroscopy table and automated blood pressure cuff and pulse oximeter applied. The skin entry points for approaching the anatomic target points of the segmental medial branches of right L2-L5 were identified with anfluoroscopy and marked. Following thorough Chlorhexadine preparation of the skin and draping and 1% lidocaine infiltration of the skin entry points and subcutaneous tissues, a 22 gauge spinal needle was placed under fluoroscopic guidance down on to the target point for each respective segmental medial branch.Position was confirmed in A/P, oblique and lateral views with 0.25ml of omnipaque 240. At this point I injected 0.5 c of 0.5% Bupivacaine in the area of each segmental nerve. Vital signs were stable throughout the procedure and were as recorded in the docflowsheet by the nursing staff. Follow up plans and appointments were discussed and was instructed to keep careful note of how the usual pain was modified by these injections. Specifically was asked to keep a pain diary for the next 24 hours using a numeric pain scale of 0-10 and report these results at the follow-up visit. Post procedure instruction was given as documented in the nursing documentation and having met discharge criteria. Patient was discharged from the [facility]. Based on the medial branches blocked today, if the patient has adequate relief and we are able to proceed to radiofrequency ablation, the treatment should result in the denervation of the right L3-L4, L4-L5 and L5-S1 FACET JOINTS. We would expect to denervate a total of 3 facets during the radiofrequency ablation. COMMENTS: He will call with his 1-4 hour post-procedure pain level for the right side of his low back. CC: Alisa Ramirez
== END 2019-06-08 09:56 ==
PROVIDERS: PCP Family Medicine; Visit Provider Preventive Medicine Occupational Medicine
DX: M47.817 Spondylosis without myelopathy or radiculopathy, lumbosacral region (principal)
CPT/HCPCS: 64493; 64494; 64495; 72100; Q9967

== ENCOUNTER → 2019-06-20 11:34 | Outpatient (BNVA) | payer MEDICARE, OTHER, SELFPAY | PROVIDERS: PCP Family Medicine; Referring Provider Family Medicine; Visit Provider Internal Medicine Cardiovascular Disease | DX: I25.10 Atherosclerotic heart disease of native coronary artery without angina pectoris (principal); Z95.1 Presence of aortocoronary bypass graft; I25.5 Ischemic cardiomyopathy; I10 Essential (primary) hypertension; E78.5 Hyperlipidemia, unspecified; E11.9 Type 2 diabetes mellitus without complications; Z79.4 Long term (current) use of insulin | CPT/HCPCS: 99214 ==

== ENCOUNTER 2019-06-26 16:02 | Outpatient (REF) | payer MEDICARE, OTHER, SELFPAY ==
[2019-06-26 18:58] LABS: COMMENT (LAB VIEW ONLY) 132.64 mg/dL; Microalb ug/mg Crea 38.3 ug/mg Cr
== END 2019-06-26 16:22 ==
LOC: NCHCN 16:02
PROVIDERS: PCP Family Medicine; Visit Provider Family Medicine
DX: E11.9 Type 2 diabetes mellitus without complications (principal)
CPT/HCPCS: 82043; 82570

== ENCOUNTER 2019-07-06 09:19 | Outpatient (CLI) | payer MEDICARE, OTHER, SELFPAY ==
[2019-07-06 10:24] VITALS: BP 93/63; PULSE 88; RESP 18; TEMP 36.6; O2SAT 97
--- NOTE | 2019-07-06 11:01 | PDOC.PAIN ---
Pain Clinic Procedure Note Procedure Note Procedure Note: Lumbar/Sacral Medial Branch Blocks #2 LANDRY RAY has been referred to the [facility] for lumbar/sacral medial branch blocks. COMMENTS: He did great with his first LMBB DX: Lumbosacral spondylosis without myelopathy Patient was interviewed and the medical record reviewed. There were no medical, pharmacologic, radiographic or other structural contraindications to attempting fluoroscopically guided local anesthetic lumbar/sacral medial branch blocks. Risks and expected side effects as well as potential benefit of the procedure were reviewed and voiced concerns addressed. The printed consent form was signed and witnessed. Standard time-out procedure was performed. Patient was placed in the prone position on the fluoroscopy table and automated blood pressure cuff and pulse oximeter applied. The skin entry points for approaching the anatomic target points of the segmental medial branches of right L2-L5DR were identified with anfluoroscopy and marked. Following thorough Chlorhexadine preparation of the skin and draping and 1% lidocaine infiltration of the skin entry points and subcutaneous tissues, a 22 gauge spinal needle was placed under fluoroscopic guidance down on to the target point for each respective segmental medial branch.Position was confirmed in A/P, oblique and lateral views with 0.25ml of omnipaque 240. At this point I injected 0.5 cc of 2% Lidocaine to each segmental nerve. Vital signs were stable throughout the procedure and were as recorded in the docflowsheet by the nursing staff. Follow up plans and appointments were discussed and was instructed to keep careful note of how the usual pain was modified by these injections. Specifically was asked to keep a pain diary for the next 24 hours using a numeric pain scale of 0-10 and report these results at the follow-up visit. Post procedure instruction was given as documented in the nursing documentation and having met discharge criteria. Patient was discharged from the [facility]. Based on the medial branches blocked today, if the patient has adequate relief and we are able to proceed to radiofrequency ablation, the treatment should result in the denervation of the right L3-L4, L4-L5 and L5-S1 FACET JOINTS. We would expect to denervate a total of 3 facets during the radiofrequency ablation. COMMENTS: No complications. He will call back with his 1-4 hour pain scores for the right side of his low back. CC: Alisa Ramirez
[2019-07-06 11:05] VITALS: BP 99/64; PULSE 83; RESP 15; O2SAT 98
[2019-07-06] MEDS: Omnipaque 240 MG/ML 50 ML BTL IJ (11:13)
[2019-07-06] MEDS: Lidocaine 2% Pres-Free 5 ML VIAL IJ (11:13)
--- NOTE | 2019-07-06 11:55 | DI.RAD_ITS ---
EXAM: XR PAIN CLINIC LUMBAR SP 2V CLINICAL HISTORY: Lumbar Medial Branch Block Right, lumbar spondylosis TECHNIQUE: Fluoroscopy was provided for the referring physician for guidance with performing injecti on procedure. Fluoro time: 59.1 s, 15.57 mGy COMPARISON: No exams were available for comparison FINDINGS: Please see procedure note for details.
== END 2019-07-06 09:39 ==
PROVIDERS: PCP Family Medicine; Visit Provider Preventive Medicine Occupational Medicine
DX: M47.816 Spondylosis without myelopathy or radiculopathy, lumbar region (principal)
CPT/HCPCS: 64493; 64494; 64495; 72100; Q9967

== ENCOUNTER 2019-07-28 14:07 | Outpatient (REF) | payer MEDICARE, OTHER, SELFPAY ==
[2019-07-28 19:08] LABS: COMMENT (LAB VIEW ONLY) 121.89 mg/dL; Microalb ug/mg Crea 19.9 ug/mg Cr
== END 2019-07-28 14:27 ==
LOC: NCHCN 14:07
PROVIDERS: PCP Family Medicine; Visit Provider Family Medicine
DX: E11.9 Type 2 diabetes mellitus without complications (principal)
CPT/HCPCS: 82043; 82570

== ENCOUNTER 2019-08-01 12:38 | Outpatient (CLI) | payer MEDICARE, OTHER, SELFPAY ==
--- NOTE | 2019-08-01 12:43 | PDOC.PAIN ---
Pain Clinic Procedure Note Procedure Note Procedure Note: Right sided Lumbar Radiofrequency with Coolief Machine PROCEDURE NOTE Date of Service: August 01, 2019 Patient: CORYLANDRY Pallavi Provider: Martin Mayorga MD Pre Operative Diagnosis: lumbar spondylosis without myelopathy Post Operative Diagnosis: same as above PROCEDURE: Radiofrequency Ablation of medial branches - right lumbar L2, L3, L4, L5-DR LANDRY RAY was brought into the fluoroscopy suite and positioned into the prone position on the fluoroscopy table and allowed to adjust to a position of comfort. A grounding pad was placed on the right thigh. The lumbar region was widely prepped with a chloraprep solution, allowed to air dry and draped in standard sterile surgical fashion. Local anesthesia was provided by ~8mL of 1 % lidocaine delivered with a 25g needle. A 17g 100mm radiofrequency introducer needle was placed to the planned anatomic targets guided with intermittent fluoroscopy with a perpendicular approach to terminally place at the junction of the superior articular process and the transverse process of the right L2, L3, L4 and the base of the sacral ala on the right for the L5 medial branch nerve. The stylets were removed and radiofrequency probes with a 4mm active tip were then inserted. Needle tip position of the probes was verified in the AP, oblique, and lateral views. At each site, the medial branch nerve was stimulated at 2 Hz to a maximum 1-2 volts determined to finalize safe needle and electrode placement. The patient was awake and responsive during this portion of the procedure. Each target was anesthetized with preservative-free 1 mL of 2 % lidocaine for anesthesia prior to lesioning and then each target was lesioned at 60 degrees Celsius for 2 minutes and 30 seconds. Tissue impedences were noted to be between 250 and 500 Ohms. Post lesioning, 0.5cc of solution containing depomedrol (40mg/ml) and 0.5% Bupivocaine (2cc) was injected at each site. Electrodes and needles were then removed and bandages placed over the needle placement sites, the patient then returned to the supine position on a stretcher and transported to the recovery room without hemodynamic, neurologic, or allergic reactions. Fluoroscopic images were printed for hard copy recording and digitally archived. POST PROCEDURE EVALUATION: IMPRESSION: 1. patient tolerated procedure well 2. excellent myotomal stimulation with visible multifus muscle twitching observed 3. patient reported no paresthesia or motor stimulation down right lower extremity, no visible motor stimualtion of right leg 4. patient received total of 1mg IV versed and 50mcg of IV fentanyl for IV sedation Follow up plans and appointments were discussed with the LANDRY . Post procedure instruction was given as documented in nursing documentation and having met discharge criteria, LANDRY was discharged from the [facility]. COMMENTS: No complications. F/U with our office as needed. I personally performed this entire procedure. Mukesh Salazar MD Attending Physician
[2019-08-01 12:51] VITALS: BP 155/84; PULSE 75; RESP 22; TEMP 36.8; O2SAT 99
[2019-08-01] MEDS: Lactated Ringers 1,000 ML 80 ML IV (13:08)
[2019-08-01] MEDS: Midazolam 2 MG/2 ML VIAL IVP (13:18)
[2019-08-01] MEDS: fentaNYL 100 MCG/2 ML VIAL IVP ×2 (13:18→13:22)
[2019-08-01] MEDS: Lidocaine 2% Pres-Free 5 ML VIAL IJ (13:43)
[2019-08-01] MEDS: Bupivacaine 0.5% Pres-Free 10 ML VIAL IJ (13:45)
[2019-08-01] MEDS: methylPREDNISolone ACETATE 40 MG/ML VIAL IJ (13:46)
[2019-08-01 13:47] VITALS: BP 147/74; PULSE 79; RESP 22; O2SAT 99
[2019-08-01] MEDS: Lidocaine 1% Pres-Free 30 ML VIAL IJ (14:00)
--- NOTE | 2019-08-01 14:25 | DI.RAD_ITS ---
EXAM: XR PAIN CLINIC LUMBAR SP 2V CLINICAL HISTORY: Dx: lumbar spondylosis. TECHNIQUE: Fluoroscopy was provided for the referring physician for guidance with performing injecti on procedure. COMPARISON: No exams were available for comparison FINDINGS: Please see procedure note for details. Fluoro Time: 60.2 seconds
== END 2019-08-01 12:58 ==
PROVIDERS: PCP Family Medicine; Visit Provider Internal Medicine
DX: M47.816 Spondylosis without myelopathy or radiculopathy, lumbar region (principal)
CPT/HCPCS: 64635; 64636; 72100; J1030; J2250; J3010

== ENCOUNTER 2019-11-08 18:28 | Outpatient (REF) | payer MEDICARE, OTHER, SELFPAY ==
[2019-11-08 15:26] LABS: HCT 36.5 % (40.0-50.0); Mean Corp. HGB Concentration 32.9 g/dL (32.0-36.0); Mean Corpuscular Hemoglobin 24.8 pg (27.0-33.0); Mean Corpuscular Volume 75.6 fL (80-95); Mean Platelet Volume 9.8 fL (8.0-11.0); Platelet Count 209 x1000/uL (130-400); RBC 4.83 m/cumm (4.50-6.00); RBC Distribution Width 16.9 % (11.8-14.1); White Blood Cell Count 6.15 k/cumm (4.4-10.8)
[2019-11-08 15:53] LABS: Hemoglobin A1C 8.1 % (3.8-5.6)
[2019-11-08 15:54] LABS: ALT 27 U/L (16-63); AST 14 U/L (15-37); Alkaline Phosphatase 85 U/L (46-116); Anion Gap 13.5 mmol/L (3-11); BUN 14 mg/dL (7-18); Bilirubin, Total 0.2 mg/dL (0.2-1.0); CO2 21.5 mmol/L (21.0-32.0); CREATININE 1.42 mg/dL (0.70-1.30); Calcium 8.8 mg/dL (8.5-10.1); Chloride 105 mmol/L (98-107); Cholesterol 109 mg/dL (<200); Estimated GFR 49.29 (mL/min/1.73m2); Glucose 134 mg/dL (74-106); HDL Cholesterol 26 mg/dL (40-60); Potassium 3.6 mmol/L (3.5-5.1); Sodium 140 mmol/L (136-145); TSH (W/Ref FT4) 2.58 uIU/mL (0.36-3.74); Total Protein 6.9 g/dL (6.4-8.2); Triglyceride 479 mg/dL (<150)
[2019-11-08 16:08] LABS: LDL CHOLESTEROL 33 mg/dL (<100)
== END 2019-11-08 18:48 ==
LOC: NCHCN 18:28
PROVIDERS: PCP Family Medicine; Visit Provider Family Medicine
DX: E03.9 Hypothyroidism, unspecified (principal); E11.9 Type 2 diabetes mellitus without complications; I10 Essential (primary) hypertension; E78.5 Hyperlipidemia, unspecified
CPT/HCPCS: 80053; 80061; 83721; 85027; 83036; 84443

== ENCOUNTER 2019-11-27 15:42 | Outpatient (REF) | payer MEDICARE, OTHER, SELFPAY ==
[2019-11-27 19:25] LABS: Iron 42 ug/dL (65-175); Total Iron Binding Capacity 387 ug/dL (250-450); Transferrin Sat 11 % (20-55)
[2019-11-27 19:38] LABS: Ferritin 14 ng/mL (26-388)
== END 2019-11-27 16:02 ==
LOC: NCHCN 15:42
PROVIDERS: PCP Family Medicine; Visit Provider Family Medicine
DX: D64.9 Anemia, unspecified (principal); R53.83 Other fatigue
CPT/HCPCS: 82728; 83540; 83550

== ENCOUNTER 2019-12-18 01:56 | Outpatient (RCR) | payer MEDICARE, OTHER, SELFPAY ==
[2019-12-07] MEDS: Normal Saline Flush 10 ML SYR IVP (12:45)
[2019-12-07] MEDS: IRON SUCROSE COMPLEX 300 MG in Normal Saline 250 ML 176.667 MG IVPB (12:45)
[2019-12-11] MEDS: IRON SUCROSE COMPLEX 300 MG in Normal Saline 250 ML 176.667 MG IVPB (12:49)
[2019-12-11] MEDS: Normal Saline Flush 10 ML SYR IVP (12:49)
[2019-12-18] MEDS: Normal Saline Flush 10 ML SYR IVP (12:43)
[2019-12-18] MEDS: IRON SUCROSE COMPLEX 300 MG in Normal Saline 250 ML 176.667 MG IVPB (13:04)
== END 2019-12-19 23:59 | disposition home or self-care (01) ==
LOC: INF 01:56
PROVIDERS: PCP Family Medicine; Visit Provider Internal Medicine
DX: D50.9 Iron deficiency anemia, unspecified (principal); K59.00 Constipation, unspecified
CPT/HCPCS: 96365; 96366; J1756

== ENCOUNTER → 2019-12-21 11:35 | Outpatient (BNVA) | payer MEDICARE, OTHER, SELFPAY | PROVIDERS: PCP Family Medicine; Referring Provider Family Medicine; Visit Provider Internal Medicine Cardiovascular Disease | DX: I25.119 Atherosclerotic heart disease of native coronary artery with unspecified angina pectoris (principal); R07.89 Other chest pain; E11.9 Type 2 diabetes mellitus without complications; Z79.4 Long term (current) use of insulin; Z95.1 Presence of aortocoronary bypass graft; I10 Essential (primary) hypertension; E78.5 Hyperlipidemia, unspecified | CPT/HCPCS: 99214 ==

== ENCOUNTER 2020-02-27 09:43 | Outpatient (CLI) | payer MEDICARE, OTHER, SELFPAY ==
--- NOTE | 2020-02-27 07:00 | DI.RAD_ITS ---
EXAM: XR PAIN CLINIC LUMBAR SP 2V CLINICAL HISTORY: Dx:Lumbar Spondylosis. TECHNIQUE: Fluoroscopy was provided for the referring physician for guidance with performing injecti on procedure. COMPARISON: No exams were available for comparison FINDINGS: Please see procedure note for details. Fluoro time: 31.7 sec, 9.94 mGy RADIATION DOSE DELIVERED:
[2020-02-27 09:58] VITALS: BP 100/61; PULSE 79; RESP 16; TEMP 36.5; O2SAT 98
[2020-02-27] MEDS: Lactated Ringers 1,000 ML 80 ML IV (10:35)
[2020-02-27] MEDS: Midazolam 2 MG/2 ML VIAL IVP (10:45)
[2020-02-27] MEDS: fentaNYL 100 MCG/2 ML VIAL IVP (10:45)
[2020-02-27] MEDS: Lidocaine 2% Pres-Free 5 ML VIAL IJ (10:57)
[2020-02-27] MEDS: Lidocaine 1% Pres-Free 30 ML VIAL (10:58)
[2020-02-27] MEDS: Bupivacaine 0.5% Pres-Free 10 ML VIAL IJ (10:58)
[2020-02-27 11:02] VITALS: BP 110/63; PULSE 79; RESP 16; O2SAT 98
--- NOTE | 2020-02-27 11:06 | PDOC.PAIN_ITS ---
Pain Clinic Procedure Note Procedure Note Procedure Note: Right sided Lumbar Radiofrequency with Coolief Machine PROCEDURE NOTE Date of Service: February 27, 2020 Patient: CORYLANDRY Provider: Martin Mayorga MD Pre Operative Diagnosis: lumbar spondylosis without myelopathy Post Operative Diagnosis: same as above Comment: patient received excellent pain relief of his usual right sided back pain until about 2 weeks ago when he had to work on tearing down a wall at home which aggravated his back pain and he returns for repeat lubmar RFA. PROCEDURE: Radiofrequency Ablation of medial branches - right lumbar L2, L3, L4, L5-DR LANDRY RAY was brought into the fluoroscopy suite and positioned into the prone position on the fluoroscopy table and allowed to adjust to a position of comfort. A grounding pad was placed on the right thigh. The lumbar region was widely prepped with a chloraprep solution, allowed to air dry and draped in standard sterile surgical fashion. Local anesthesia was provided by ~8mL of 1 % lidocaine delivered with a 25g needle. A 17g 100mm radiofrequency introducer needle was placed to the planned anatomic targets guided with intermittent fluoroscopy with a perpendicular approach to terminally place at the junction of the superior articular process and the transverse process of the right L2, L3, L4 and the base of the sacral ala on the right for the L5 medial branch nerve. The stylets were removed and radiofrequency probes with a 4mm active tip were then inserted. Needle tip position of the probes was verified in the AP, oblique, and lateral views. At each site, the medial branch nerve was stimulated at 2 Hz to a maximum 1-2 volts determined to finalize safe needle and electrode placement. The patient was awake and responsive during this portion of the procedure. Each target was anesthetized with preservative-free 1 mL of 2 % lidocaine for anesthesia prior to lesioning and then each target was lesioned at 60 degrees Celsius for 2 minutes and 30 seconds. Tissue impedences were noted to be between 250 and 500 Ohms. Post lesioning, 0.5cc of solution containing depomedrol (40mg/ml) and 0.5% Bupivocaine (2cc) was injected at each site. Electrodes and needles were then removed and bandages placed over the needle placement sites, the patient then returned to the supine position on a stretcher and transported to the recovery room without hemodynamic, neurologic, or allergic reactions. Fluoroscopic images were printed for hard copy recording and digitally archived. POST PROCEDURE EVALUATION: IMPRESSION: 1. patient tolerated procedure well 2. excellent myotomal stimulation with visible multifus muscle twitching observed 3. patient reported no paresthesia or motor stimulation down right lower extremity, no visible motor stimualtion of right leg 4. patient received total of 0.5mg IV versed and 25mcg of IV fentanyl for IV s edation Follow up plans and appointments were discussed with the LANDRY . Post procedure instruction was given as documented in nursing documentation and having met discharge criteria, LANDRY was discharged from the [facility]. COMMENTS: No complications. F/U with our office as needed. I personally performed this entire procedure. Please note given patient's body habitus, a 75mm radiofrequency Coolief introducer needle should be sufficient to reach targeted area, for future reference. Mukesh Salazar MD Attending Physician
== END 2020-02-27 10:03 ==
PROVIDERS: PCP Family Medicine; Visit Provider Internal Medicine
DX: M47.816 Spondylosis without myelopathy or radiculopathy, lumbar region (principal)
CPT/HCPCS: 64635; 64636; 72100; J2250; J3010

== ENCOUNTER 2020-05-24 03:37 | Outpatient (CLI) | payer MEDICARE, OTHER, SELFPAY ==
--- NOTE | 2020-05-24 10:34 | DI.RAD_ITS ---
EXAM: XR FOOT RT COMPLETE CLINICAL HISTORY: RT FOOT PAIN,M79.671 ULNAR SIDE OF MID FOOT. TECHNIQUE: 2D digital imaging was performed. COMPARISON: No exams were available for comparison FINDINGS: BONES: No acute fracture is present. No bony destructive lesion is seen. Tiny plantar calcaneal spur . JOINTS: No dislocation present. Minimal degenerative changes. SOFT TISSUE: Normal. IMPRESSION: Unremarkable radiographs of the right foot. DATA REPOSITORY: RADIATION DOSE DELIVERED:
== END 2020-05-24 03:57 ==
PROVIDERS: PCP Family Medicine; Visit Provider Family Medicine
DX: M79.671 Pain in right foot (principal)
CPT/HCPCS: 73630

== ENCOUNTER 2020-06-06 00:25 | Outpatient (CLI) | payer MEDICARE, OTHER, SELFPAY ==
--- NOTE | 2020-06-06 | DI.US_ITS ---
EXAM: US PAIN CLINIC NEEDLE GUIDANCE CLINICAL HISTORY: ULTRASOUND GUIDED RT GREATER TROCHANTERIC INJ,TROCHANTERIC BURSITIS,M54.5 TECHNIQUE: Ultrasound performed using standard protocol. COMPARISON: No exams were available for comparison FINDINGS: Ultrasound guidance was provided for right greater trochanteric bursa injection reportedly performed by Dr. Boucher. Please see Dr. Boucher procedure note. IMPRESSION: DATA REPOSITORY:
[2020-06-06 09:08] VITALS: BP 114/68; PULSE 83; RESP 16; TEMP 37.1; O2SAT 96
[2020-06-06 09:43] VITALS: PULSE 84; O2SAT 98
--- NOTE | 2020-06-06 09:47 | PDOC.PAIN_ITS ---
Pain Clinic Procedure Note Procedure Note Procedure Note: ULTRASOUND GUIDED RIGHT TROCHANTERIC BURSA INJECTION Pre-Procedural Evaluation: LANDRY RAY has been referred to the [facility] for an Ultrasound Guided right trochanteric bursa injection for a chief complaint of right lateral hip pain. Pre-procedure Pain Score: 6/10 DX: Right Trochanteric bursitis Patient was interviewed and the medical record reviewed. There were no medical, pharmacologic, radiographic, or other structural contraindications to preforming an ultrasound guided injection. Risks and expected side effects as well as potential benefits of the procedure were reviewed. The patient consent form was signed and witnessed. Standard time-out procedure was performed. The use of direct ultrasound visualization of the needle (rather than a non- guided injection) was required to increase patient safety by excluding inadvertent intramuscular, intratendinous, or intraneural needle placement and minimizing bleeding by avoiding osteochondral or vascular injury from the needle. Additionally, the increased accuracy of placement may increase clinical effectiveness and will allow higher diagnostic specificity when evaluating effectiveness of this injection. Procedure Description: The patient was placed in the prone position and automated blood pressure cuff and pulse oximeter applied for monitoring during the procedure and recorded in the medical record. Pre-injection ultrasound scanning of the area of interest was performed using linear transducer, identifying relevant anatomy, landmarks, and neurovascular structures allowing for optimal needle path. The site was then prepared in the usual sterile fashion, using thorough Chlorhexadine preparation of the skin and sterile draping. The same ultrasound transducer was then passed into the sterile field using sterile probe cover and sterile ultrasound gel. The injection target was again visualized. Skin and subcutaneous tissues were anesthetized with 3 mL of 1% Lidocaine. A 21G Pajunk 3.5 inch US needle was placed under live ultrasound guidance, using an in-plane approach, to the target area. After visualization of the needle tip at the target area, a mixture of 3 mL 2% Lidocaine and 1 mL Depomedrol, totaling 4 mL of injectate was delivered after negative aspiration for blood. Ultrasound images were captured and stored for documentation purposes. The needle was flushed with another 1 cc of 2% Lidocaine and removed without difficulty. Post-procedure Pain Score:0/10 Vital signs were stable throughout the procedure and were as recorded in the docflowsheet by the nursing staff. Follow up plans and appointments were discussed with the patient.Post procedure instruction was given as documented in nursing documentation and having met discharge criteria, they were discharged from the [facility]. COMMENTS: He was asked to take it easy today and tomorrow and then start back with his stretches on Wednesday. Sergio Boucher DO, MPH Pain Management
[2020-06-06] MEDS: methylPREDNISolone ACETATE 40 MG/ML VIAL IJ (09:52)
[2020-06-06] MEDS: Lidocaine 2% Pres-Free 5 ML VIAL IJ (09:52)
== END 2020-06-06 00:45 ==
PROVIDERS: PCP Family Medicine; Visit Provider Preventive Medicine Occupational Medicine
DX: M70.61 Trochanteric bursitis, right hip (principal)
CPT/HCPCS: 20610; 76942; J1030

== ENCOUNTER 2020-06-19 17:43 | Observation (INO) | payer MEDICARE, OTHER, SELFPAY ==
[2020-06-19] VITALS (43 sets, daily range): BP systolic 125–171; BP diastolic 62–88; PULSE 81–97; RESP 16–26; TEMP 36.4–36.6; O2SAT 96–99
--- NOTE | 2020-06-19 17:45 | RT.EKG_ITS ---
APPROVED REPORT Exam: Resting ECG Patient Location: E HR:90 bpm ECG Measurements Heart Rate 90 AXIS MD 139 P 45 QRSd 87 QRS 21 QT 393 T [id number] QTc 479 Conclusion Sinus rhythm...normal P axis, V-rate 60- 99 I have reviewed and interpreted ECG and agree with software generated interpretation.
--- NOTE | 2020-06-19 17:51 | ED.GENADUL_ITS ---
Discharge Plan Disposition Condition: Improving Discharge Details Chief Complaint: Trauma Admit Date/Time: 06/19/20 22:53 Admit Provider: Sergio Nguyen Attending Provider: Sergio Nguyen Primary Care Provider: Alisa Ramirez ED Provider: Evelyn Griffith Discharge Instructions Activity:: use walker at all times Equipment/Supplies:: No Equipment Needed Diet:: Normal Diet Discharge Orders Discharge Orders: Discharge Order (Routine); Ordered 06/20/20 Ordered By: Unruly Eller Discharge Data Discharge Date/Time-TO BE ENTERED AT DEPARTURE: 06/19/20 22:58 Medical Decision Making Patient is deborah ruiz 69 year old male, accompanied by his , with c/c of head injury. He reports that he fell andstruck his head. Unclear how he fell. He does not remember the fall. States that he has neck pain and right sided hip pain as well. Denies SOB or CP. Denies inconinence. States that he was dizzy prior to the fall. States that secondary to his ICH, as well as TBI, he has chronic dizziness and unsteadiness with ambulation. However, he states that today he felt worse. He denies SOB, CP. No TAN prior to fal. Denies N/V. No incontinence. Patient does not remember the time immediately after the fall, remembers being in the bathroom tending to the wound on his head. was gone for 2 hours, she found him at home tending to his wound. On exam, patient has a focal area of swelling on his forehead with a linear superficial abrasion. He is hemodynamically stable. He appears anxious. Trauma exam signficicant for head injury. He is also reporting some right sided discomfort altough none was elicited on exam. Plan for farrar scan as we are unclear what occurred during the fall as well as what caused the fall. ECG was obtained and reviewed by physician. No acute ischemic changes are noted. Wound was cleansed by nursing staff, no closure is needed. FINDINGS: Brain: Chronic unchanged 5 cm CSF isodense space along the left frontal extra- axial region, reflecting either area of focal left frontal lobe parenchymal a atrophy versus arachnoid cyst. Nonspecific hypodensities of the periventricular and deep subcortical white matter, most likely secondary to chronic small vessel ischemic change. No intracranial hemorrhage or extra-axial fluid collection. No significant mass effect. Peoples-white matter differentiation is preserved. Cerebral ventricles: Prominence of the ventricles and sulci, most likely attributed to parenchymal volume loss. Bones/joints: Chronic right frontal jaylin-hole defect. No acute fracture. Paranasal sinuses: Visualized sinuses are unremarkable. No fluid levels. Mastoid air cells: Unremarkable. Soft tissues: Left frontal scalp contusion. IMPRESSION: 1. No acute intracranial pathology. 2. Left frontal scalp contusion. 3. Chronic findings, as above. Bones/joints: Vertebral body heights are maintained. No locked or perched facets. Multilevel facet arthropathy. No acute cervical spine fracture. The dens is intact. Atlanto-axial intervals are normal. Discs/Spinal canal/Neural foramina: Multilevel degenerative changes with intervertebral disc height loss and osteophyte formation, with multilevel areas of mild to moderate canal stenosis. Lungs: Lung apices are clear. Soft tissues: Unremarkable. IMPRESSION: No acute cervical spine fracture. FINDINGS: Lungs: There is minimal bibasilar atelectasis. No mass or consolidation. Pleural space: Unremarkable. No pneumothorax. No pleural effusion. Heart: There is coronary artery calcification. Aorta: Unremarkable. No aortic aneurysm. Lymph nodes: Unremarkable. No enlarged lymph nodes. Bones/joints: There are sternal wires consistent with previous sternotomy incision. Soft tissues: Unremarkable. IMPRESSION: No acute abnormality. FINDINGS: Liver: There is hepatomegaly and fatty infiltration of the liver. There is a small cyst in the liver. Gallbladder and bile ducts: Normal. No calcified stones. No ductal dilation. Pancreas: Normal. No ductal dilation. Spleen: Normal. No splenomegaly. Adrenal glands: Normal. No mass. Kidneys and ureters: There is a simple cyst in the right kidney. There is no hydronephrosis. Stomach and bowel: Unremarkable. No obstruction. No mucosal thickening. Appendix: No evidence of appendicitis. Intraperitoneal space: Unremarkable. No free air. No significant fluid collectio n. Vasculature: Unremarkable. No abdominal aortic aneurysm. Lymph nodes: Unremarkable. No enlarged lymph nodes. Urinary bladder: Unremarkable as visualized. Reproductive: The prostate gland is enlarged. Bones/joints: Old compression fracture at T12. A few scattered small sclerotic lesions, stable from prior exam, likely representing bone islands. There is no evidence of acute fracture. Soft tissues: Unremarkable. IMPRESSION: No acute abnormality. Labs reviewed, no leukocysosis. Stable H&H. Creatinine is elevated at 1.31, this is baseline for the patient. troponin is WNL. Repeat troponin remains <0.05. He does not have evidence to suggest ACS at this time, his exam and history does not suggest PE, I do not see significant trauma. We discussed disposition options. He is having more difficulty ambulating than he does at baseline. He is using his walker but states that his home layout basia es this difficult. He ambulated m ultiple times with nursing staff and feels unsafe to do this himself, unassisted. He continues to have increased sensation of dizziness. Discussed admission for continued evaluation, physical therapy evaluation. Patient and his feel that this would be the safest option. Discussed admission with Dr. Nguyen who agrees to admission. HPI General Mode of arrival: wheelchair . Date/Time Provider Initiated Documentation: 06/19/20 17:47 . Limitations to Documentation: no limitations . Information obtained by: patient, family () and RN notes reviewed . History of Present Illness 69 year old M presents to the emergency department with the chief complaint of head injury, described as moderate, Quality is described as aching, and is localized to the head. Patient reports no radiation. Patient started experiencing this unknown (within the last hour) and it has been constant. No relieving factors improve symptom(s), No exacerbating factors reported . Patient notes confusion (does not remember fall ), headaches, syncope (believes he may have syncopized ) and weakness; denies chest pain, cough, fever/chills, nausea/vomiting, rash and shortness of breath. Patient did receive the following treatments prior to arrival, none Related Data Home Medications Medication Instructions Recorded Confirmed allopurinol 300 mg PO DAILY 01/24/13 06/19/20 levothyroxine 50 mcg PO DAILY@0730 01/24/13 06/19/20 quetiapine [Seroquel] 300 mg PO HS 01/24/13 06/19/20 rosuvastatin [Crestor] 20 mg PO HS 03/22/17 06/19/20 docusate sodium [Dulcolax Stool 100 mg PO DAILY PRN 04/08/17 06/19/20 Softener (dss)] nitroglycerin [Nitrostat] 0.4 mg SUBLINGUAL as directed 04/08/17 06/19/20 polyethylene glycol 3350 [Miralax] 17 g PO DAILY PRN #255 gm 04/08/17 06/19/20 acetaminophen [Tylenol] 2 tab PO Q4H PRN PRN tab 05/24/17 06/19/20 Levemir FlexTouch U-100 Insuln 100 units SUBCUT BID 08/04/17 06/19/20 gabapentin 300 mg capsule 300 mg PO HS cap 07/27/18 06/19/20 cholecalciferol (vitamin D3) 1,000 unit PO DAILY 11/11/18 06/19/20 [Vitamin D3] gabapentin 100 mg capsule 100 mg PO QAM 12/12/18 06/19/20 metformin [Glucophage] 1,000 mg PO BID 03/08/19 06/19/20 riboflavin (vitamin B2) 100 mg 400 mg PO DAILY tab 03/28/19 06/19/20 tablet topiramate 25 mg sprinkle capsule 75 mg PO HS cap 03/28/19 06/19/20 bisacodyl 5 mg tablet,delayed 5 mg PO DAILY PRN tab 04/17/19 06/19/20 release carboxymethylcellulose sodium 0.5 1 drp OP 4-6XD PRN 04/17/19 06/19/20 % eye drops cod liver oil 1 cap PO DAILY 04/17/19 06/19/20 pantoprazole [Protonix] 40 mg PO DAILY #30 tab 04/25/19 06/19/20 metoprolol succinate 50 mg 50 mg PO DAILY 05/10/19 06/19/20 tablet,extended release 24 hr acetylcysteine 600 mg capsule 600 mg PO DAILY cap 05/16/19 06/19/20 citalopram 20 mg tablet 10 mg PO QHS tab 05/16/19 06/19/20 lisinopril 20 mg PO DAILY 05/24/19 06/19/20 magnesium 400 mg PO DAILY 07/07/19 06/19/20 diclofenac sodium 1 % topical gel 2 g TOPICAL QID 04/30/20 06/19/20 lisinopril 10 mg tablet 10 mg PO DAILY 04/30/20 06/19/20 ranolazine 500 mg tablet,extended 500 mg PO BID 04/30/20 06/19/20 release,12 hr tramadol 50 mg tablet 50 mg PO Q6H PRN 04/30/20 06/19/20 isosorbide mononitrate 60 mg 60 mg PO DAILY #90 tab 05/28/20 06/19/20 tablet,extended release 24 hr Victoza 2-Thanh 1.8 mg SUBCUT HS 06/19/20 06/19/20 potassium 10 mg PO DAILY 06/19/20 06/19/20 Previous Rx's Medication Instructions Recorded acetaminophen [Tylenol] 2 tab PO Q4H PRN PRN tab 05/24/17 pantoprazole [Protonix] 40 mg PO DAILY #30 tab 04/25/19 isosorbide mononitrate 60 mg 60 mg PO DAILY #90 tab 05/28/20 tablet,extended release 24 hr Allergies Allergy/AdvReac Type Severity Reaction Status Date / Time amoxicillin Allergy Severe breathing Unverified 06/19/20 18:04 difficuty and vomiting Penicillins Allergy Skin Rash Unverified 06/19/20 18:04 sulfamethoxazole Allergy Skin Rash Unverified 06/19/20 18:04 [From Bactrim] trimethoprim [From Bactrim] Allergy Skin Rash Unverified 06/19/20 18:04 oxycodone HCl [From Percocet] AdvReac Severe Contraindic Unverified 06/19/20 18:04 ated oxycodone terephthalate AdvReac Severe Contraindic Unverified 06/19/20 18:04 [From Percodan] ated General MADELIN: 3 Review of Systems Constitutional Constitutional: Reports as per HPI, Denies chills, Reports fatigue, Denies fever(s), Reports frequent falls, Reports headache(s) and Reports weakness Eyes Eyes: Reports as per HPI, Denies blurry vision, Denies change in vision and Denies loss of vision ENT Ears, Nose, Mouth, and Throat: Denies abnormal hearing and Reports headache(s) Cardiovascular Cardiovascular: Reports as per HPI, Denies chest pain and Denies dyspnea Respiratory Respiratory: Reports as per HPI, Denies cough, Denies pain on inspiration, Denies pain with cough and Denies dyspnea Gastrointestinal Gastrointestinal: Reports as per HPI, Denies abdominal pain, Denies nausea and Denies vomiting Genitourinary Genitourinary: Reports as per HPI and Denies urinary incontinence Musculoskeletal Musculoskeletal: Reports as per HPI and Reports abnormal gait Integumentary/Breasts Skin/Breast: Reports as per HPI, Denies rash and Reports wounds Neurologic Neurologic: Reports as per HPI, Denies abnormal hearing, Denies abnormal movements, Denies abnormal speech, Reports abnormal gait, Reports confusion ( feels subjectively off which he further calls confusion), Reports frequent falls, Reports headache(s), Denies lack of coordination, Denies localized weakness, Denies loss of vision, Denies seizure-like activity, Denies paresthes ias and Reports weakness Psychiatric Psychiatric: Reports confusion (feels subjectively off which he further calls confusion) Endocrine Endocrine: Reports fatigue [facility] Medical History (Updated 06/20/20 @ 13:29 by Unruly Eller) CAD (coronary artery disease) Chronic low back pain Chronic subdural hematoma Colon polyps Depression Diastasis recti DM type 2 (diabetes mellitus, type 2) Fatty liver GERD (gastroesophageal reflux disease) Gout H/O alcohol abuse Headaches due to 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 Hx of deep venous thrombosis Hyperlipidemia Hypertension Hypothyroidism MRSA infection Obstructive sleep apnea Pituitary abnormality Right sided weakness Urethral stricture Vitamin D deficiency Surgical History Appendectomy (06/01/16) Colonoscopy - MAC 2009-5year f/u 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 electroconvulsive therapy Extraction of cataract facial lesion removal Repair of inguinal hernia (08/05/17) right inguinal hernia repair by Dr Arroyo on 08/05/17 Repair of umbilical hernia Social History Smoking/Tobacco Use Status: Never Smoking risk assessment performed?: Yes Alcohol Intake: former Drug use: Never Substance use type: does not use Household members: spouse Housing: house Pets and animals: Yes Pets and animals: dog(s) Do you feel safe at home: Yes Do you feel safe in your relationship?: Yes Exam Const General: cooperative, healthy appearing, comfortable, well developed, well groomed and anxious Nutritional Appearance: average body habitus and well nourished Orientation: alert, awake and oriented x3 HENMT Head: normal to inspection, no palpable skull fracture, normocephalic, no Brothers's sign, no hematomas, palpable skull fracture, no scalp tenderness and No periorbital ecchymosis Head images: 1. area of swelling. Superficial linear laceration over this. No opening into subQ, no active bleeding Ears: hearing grossly normal bilaterally, external ears normal and TM's normal bilaterally General nose exam: external nose normal Mouth: oral mucosae normal, lip normal and tongue normal Throat: posterior oropharynx normal Eyes General: appearance normal, both eyes and all related structures Neck Neck: normal visual inspection (collared), trachea midline and supple Chest Chest: normal inspection of the chest, normal palpation of entire chest wall, no crepitus and no localized rib tenderness Resp Effort & Inspection: normal respiratory effort, able to speak in complete sentences and no respiratory distress Auscultation: clear to auscultation bilaterally, no rales, no rhonchi and no wheezes Cardio Rate: regular rate Rhythm: regular rhythm Heart Sounds: S1 normal and S2 normal GI Inspection: normal to inspection, no abdominal wall ecchymosis, no edema and non-distended Palpation: soft, no hepatosplenomegaly, not firm, no guarding, no pulsatile masses, not rigid and nontender Auscultation: normal bowel sounds Back/Spine/Pelvis Back: no CVA tenderness Cervical Spine: normal cervical lordosis, collar present, cervical muscular tenderness, cervical spinal tenderness (C5) and No step off deformity Thoracic/Lumbar Spine: thoracic and lumbar spine normal to inspection, thoraco- lumbar ROM limited (patient in c-collar, full mobiliy not assessed), No thoraco-lumbar spasm and No thoracic spinal tenderness Pelvis: no pain with anterior-posterior compression and no pain with lateral compression Skin Trauma: abrasion (to head as above) Neuro General: patient alert, patient awake, patient oriented x3, tone normal and moves all extremities Cranial Nerves: CN's II-XI intact bilaterally Cognition: normal cognition Speech: speech normal (responses are slow but appropriate) Gait: gait assisted Method: walker and other (nursins assistance) Motor: muscle tone normal throughout, strength not 5/5 throughout (4/4 throughout), no pronator drift, tremor (in all extremities, mild with movements) and no pronator drift noted Sensory Exam: no sensory deficits noted (no saddle paresthesias) Coordination: [id number] test normal, [id number] test normal and Romberg test abnormal (unable to preform secondary to unsteadiness) Extrem General: normal to inspection, full ROM, capillary refill normal, no pedal edema and no calf tenderness Psych Appearance: grossly normal and well kempt Mental Status: mental status grossly normal Speech and Movement: speech and movement normal
[2020-06-19 18:11] LABS: Abs Immature Grans 0.02 10^3/uL (0.0-0.06); Absolute Basophil Count 0.06 10^3/uL (0.0-0.2); Absolute Eosinophil Count 0.28 10^3/uL (0.0-0.7); Absolute Lymphocyte Count 1.11 10^3/uL (1.2-3.4); Absolute Monocyte Count 0.53 10^3/uL (0.1-0.8); Absolute Neutrophil Count 3.68 10^3/uL (1.2-6.7); Basophils % 1.1; Eosinophils % 4.9; HCT 40.2 % (40.0-50.0); HGB 13.2 g/dL (13.5-17.5); Immature Grans % 0.4; Lymphocytes % 19.5; MCH 28.3 pg (27.0-33.0); MCHC 32.8 % (32.0-36.0); MCV 86.3 fL (80-95); MPV 8.7 fL (8.0-11.0); Monocytes % 9.3; Neutrophils % 64.8; Nucleated RBC 0 %; Platelet Count 173 10^3/uL (130-400); RBC 4.66 10^6/uL (4.36-5.78); RDW 13.9 % (11.8-14.1); RDW-SD 43.8 fL; WBC 5.68 10^3/uL (4.4-10.8)
[2020-06-19 18:36] LABS: PTT Activated 25.5 sec (21.0-27.5)
[2020-06-19 18:40] LABS: ALT 33 U/L (16-63); AST 16 U/L (15-37); Albumin 4.2 g/dL (3.4-5.0); Alkaline Phosphatase 95 U/L (46-116); Anion Gap 9.4 mmol/L (3-11); BUN 16 mg/dL (7-18); Bilirubin, Total 0.3 mg/dL (0.2-1.0); CO2 22.6 mmol/L (21.0-32.0); CREATININE 1.31 mg/dL (0.70-1.30); Calcium 8.8 mg/dL (8.5-10.1); Chloride 103 mmol/L (98-107); Estimated GFR 54.09 (mL/min/1.73m2); Glucose 200 mg/dL (74-106); Magnesium 2.2 mg/dL (1.8-2.4); Sodium 135 mmol/L (136-145); Total Protein 7.6 g/dL (6.4-8.2)
[2020-06-19 18:44] LABS: Troponin I < 0.05 ng/mL (<0.06)
--- NOTE | 2020-06-19 18:49 | DI.CT_ITS ---
EXAM: CT HEAD CERVICAL SPINE WO CLINICAL HISTORY: fall. TECHNIQUE: Imaging Protocol: Axial computed tomography images with coronal and sagittal reformatted images were created and reviewed COMPARISON: CT CT HEAD WO from 03/12/[address] CERVICAL SPINE WO from 03/12/[address] HEAD WO from 03/12/2019 FINDINGS: BRAIN: There are no skull fractures nor fluid in the visualized paranasal sinuses. Mild soft tissue swellin g seen over the anterior left skull. There is no evidence of intracranial hemorrhage, new mass effect, or shift of midline structures. Th ere are no extra-axial fluid collections. The ventricles are not enlarged or shifted and there is no blood within the ventricular system nor within the basal cisterns. Again noted is the previously described CSF density area in the left frontal region, this extra-axial finding most probably representing an arachnoid cyst, unchanged. Also again noted is a prominent pi tuitary gland which should be further studied pituitary dedicated MRI sequences. CERVICAL SPINE: There is no evidence of fracture nor listhesis. No significant prevertebral soft tissue swelling. N o facet malalignment evident. No significant osseous lesions evident. There are multilevel degenerative disc disease and facet joint changes. IMPRESSION: No acute intracranial findings on this noninfused CT scan of the brain.Previously described left fron alida region arachnoid cyst is again evident as is an abnormally enlarged pituitary gland. Recommend f ollow-up non emergent MRI. No evidence of cervical spine fracture, malalignment, nor acute compromise of the cervical spinal can al. RADIATION DOSE DELIVERED: 1,598.64mGy.cm Total DLP DATA REPOSITORY: All CT scans at this facility are submitted to the National Radiology Data Registry (NRDR) Dose Index Registry (DIR) with the [employer] (ACR). RADIATION OPTIMIZATION: All CT scans at this facility use at least one of these dose optimization te chniques: automated exposure control; mA and/or kV adjustment per patient size (includes targeted exa ms where dose is matched to clinical indication); or iterative reconstruction.
--- NOTE | 2020-06-19 19:15 | DI.CT_ITS ---
EXAM: CT CHEST/ABD/PEL W CLINICAL HISTORY: fall. TECHNIQUE: Imaging Protocol: Axial computed tomography images with coronal and sagittal reformatted images were created and reviewed CONTRAST MATERIAL: Intravenous: Omnipaque 350 Contrast volume:100 ml Oral: None COMPARISON: CT CT CHEST PE ABD PELVIS W from 04/21/2019 FINDINGS: CHEST: LUNGS: . MEDIASTINUM: There is no hilar nor mediastinal adenopathy. Visualized thyroid unremarkable.No mediast inal hematoma. CARDIAC: Heart size is normal. Sternotomy wires. There is no pericardial effusion.Thoracic aorta ap pears unremarkable. OSSEOUS: No fractures. No incidental lytic osseous lesions.Unchanged benign bone island in the left iliac bone noted.. ABDOMEN: There is no ascites. LIVER: Small benign cyst in the right hepatic lobe is noted. This is unchanged. No laceration nor o ther significant focal liver findings. GALLBLADDER/BILIARY: No obvious acute gallbladder pathology. CBD is not dilated. PANCREAS: No evidence of pancreatic mass nor dilatation of the pancreatic duct. SPLEEN: Spleen size normal. No splenic laceration or perisplenic fluid. Splenic and portal veins ar e patent. ADRENALS: There are no significant adrenal masses. KIDNEYS: No calculi nor hydronephrosis. No solid renal masses. There is a small cyst in the medial co rtex of right kidney which measures 1.6 x 1.6 centimeters. No evidence of significant renal trauma. ABDOMINAL AORTA: Abdominal aorta is intact and with no evidence of aneurysm. No para-aortic adenopat hy. ABDOMINAL WALL/GI: No evidence of significant anterior abdominal wall hernia. There is some subcutan eous streaking over the bilateral anterior abdominal frey without drainable fluid collections. Also skin thickening over these areas. These findings were present on the previous study. There is no e vidence of bowel wall nor mesenteric hematoma. PELVIS: LYMPH NODES: There is no intrapelvic nor inguinal adenopathy. GI: No evidence of appendicitis.No evidence of sigmoid diverticulitis. URINARY BLADDER: No calculi nor masses evident REPRODUCTIVE: Prostate gland is normal size. OSSEOUS: No acute fractures. Compression fracture T12 is unchanged from 2019. IMPRESSION: 1. No acute abnormality in the chest, abdomen, and pelvis. 2. Other incidental findings as described above. 3. No ascites. 4. RADIATION DOSE DELIVERED: 1,430.09mGy.cm Total DLP DATA REPOSITORY: All CT scans at this facility are submitted to the National Radiology Data Registry (NRDR) Dose Index Registry (DIR) with the [employer] (ACR). RADIATION OPTIMIZATION: All CT scans at this facility use at least one of these dose optimization te chniques: automated exposure control; mA and/or kV adjustment per patient size (includes targeted exa ms where dose is matched to clinical indication); or iterative reconstruction.
[2020-06-19] MEDS: Normal Saline Flush 10 ML SYR IVP (19:16)
[2020-06-19] MEDS: Normal Saline - Diluent 50 ML VIAL IV (19:20)
[2020-06-19] MEDS: Omnipaque 350 MG/ML 100 ML BTL IJ (19:20)
--- NOTE | 2020-06-19 19:32 | DI.VRAD_ITS ---
PROCEDURE INFORMATION: Exam: CT Head Without Contrast Exam date and time: 06/19/2020 6:03 PM Age: 69 years old Clinical indication: Injury or trauma; Blunt trauma (contusions or hematomas); Consciousness not specified; Injury date: 06/19/20; Injury details: Fall, struck head, pain at c5, HX ich TECHNIQUE: Imaging protocol: Computed tomography of the head without contrast. Radiation optimization: All CT scans at this facility use at least one of these dose optimization techniques: automated exposure control; mA and/or kV adjustment per patient size (includes targeted exams where dose is matched to clinical indication); or iterative reconstruction. COMPARISON: CT HEAD WO 03/12/2019 3:17 PM FINDINGS: Brain: Chronic unchanged 5 cm CSF isodense space along the left frontal extra-axial region, reflecting either area of focal left frontal lobe parenchymal a atrophy versus arachnoid cyst. Nonspecific hypodensities of the periventricular and deep subcortical white matter, most likely secondary to chronic small vessel ischemic change. No intracranial hemorrhage or extra-axial fluid collection. No significant mass effect. Peoples-white matter differentiation is preserved. Cerebral ventricles: Prominence of the ventricles and sulci, most likely attributed to parenchymal volume loss. Bones/joints: Chronic right frontal jaylin-hole defect. No acute fracture. Paranasal sinuses: Visualized sinuses are unremarkable. No fluid levels. Mastoid air cells: Unremarkable. Soft tissues: Left frontal scalp contusion. IMPRESSION: 1. No acute intracranial pathology. 2. Left frontal scalp contusion. 3. Chronic findings, as above. PROCEDURE INFORMATION: Exam: CT Cervical Spine Without Contrast Exam date and time: 06/19/2020 6:03 PM Age: 69 years old Clinical indication: Injury or trauma; Blunt trauma (contusions or hematomas); Consciousness not specified; Injury date: 06/19/20; Injury details: Fall, struck head, pain at c5, HX ich TECHNIQUE: Imaging protocol: Computed tomography images of the cervical spine without contrast. Radiation optimization: All CT scans at this facility use at least one of these dose optimization techniques: automated exposure control; mA and/or kV adjustment per patient size (includes targeted exams where dose is matched to clinical indication); or iterative reconstruction. COMPARISON: CT HEAD WO 03/12/2019 3:17 PM FINDINGS: Bones/joints: Vertebral body heights are maintained. No locked or perched facets. Multilevel facet arthropathy. No acute cervical spine fracture. The dens is intact. Atlanto-axial intervals are normal. Discs/Spinal canal/Neural foramina: Multilevel degenerative changes with intervertebral disc height loss and osteophyte formation, with multilevel areas of mild to moderate canal stenosis. Lungs: Lung apices are clear. Soft tissues: Unremarkable. IMPRESSION: No acute cervical spine fracture. Dictated and Authenticated by: Alban Hinojosa MD. Ordering:RICHARD Rivas MD
--- NOTE | 2020-06-19 19:35 | DI.VRAD_ITS ---
PROCEDURE INFORMATION: Exam: CT Chest With Contrast; Diagnostic Exam date and time: 06/19/2020 6:03 PM Age: 69 years old Clinical indication: Injury or trauma; Blunt; Injury date: 06/19/20; Injury details: Fall, right sided hip pain, back pain; Prior surgery TECHNIQUE: Imaging protocol: Diagnostic computed tomography of the chest with intravenous contrast. Radiation optimization: All CT scans at this facility use at least one of these dose optimization techniques: automated exposure control; mA and/or kV adjustment per patient size (includes targeted exams where dose is matched to clinical indication); or iterative reconstruction. Contrast material: [id number]; Contrast volume: 100 ml; Contrast route: INTRAVENOUS (IV); COMPARISON: CT CHEST PE ABD PELVIS W 04/21/2019 9:40 PM FINDINGS: Lungs: There is minimal bibasilar atelectasis. No mass or consolidation. Pleural space: Unremarkable. No pneumothorax. No pleural effusion. Heart: There is coronary artery calcification. Aorta: Unremarkable. No aortic aneurysm. Lymph nodes: Unremarkable. No enlarged lymph nodes. Bones/joints: There are sternal wires consistent with previous sternotomy incision. Soft tissues: Unremarkable. IMPRESSION: No acute abnormality. PROCEDURE INFORMATION: Exam: CT Abdomen And Pelvis With Contrast Exam date and time: 06/19/2020 6:03 PM Age: 69 years old Clinical indication: Injury or trauma; Blunt; Injury date: 06/19/20; Injury details: Fall, right sided hip pain, back pain; Prior surgery TECHNIQUE: Imaging protocol: Computed tomography of the abdomen and pelvis with intravenous contrast. Radiation optimization: All CT scans at this facility use at least one of these dose optimization techniques: automated exposure control; mA and/or kV adjustment per patient size (includes targeted exams where dose is matched to clinical indication); or iterative reconstruction. Contrast material: [id number]; Contrast volume: 100 ml; Contrast route: INTRAVENOUS (IV); COMPARISON: CT CHEST PE ABD PELVIS W 04/21/2019 9:40 PM FINDINGS: Liver: There is hepatomegaly and fatty infiltration of the liver. There is a small cyst in the liver. Gallbladder and bile ducts: Normal. No calcified stones. No ductal dilation. Pancreas: Normal. No ductal dilation. Spleen: Normal. No splenomegaly. Adrenal glands: Normal. No mass. Kidneys and ureters: There is a simple cyst in the right kidney. There is no hydronephrosis. Stomach and bowel: Unremarkable. No obstruction. No mucosal thickening. Appendix: No evidence of appendicitis. Intraperitoneal space: Unremarkable. No free air. No significant fluid collection. Vasculature: Unremarkable. No abdominal aortic aneurysm. Lymph nodes: Unremarkable. No enlarged lymph nodes. Urinary bladder: Unremarkable as visualized. Reproductive: The prostate gland is enlarged. Bones/joints: Old compression fracture at T12. A few scattered small sclerotic lesions, stable from prior exam, likely representing bone islands. There is no evidence of acute fracture. Soft tissues: Unremarkable. IMPRESSION: No acute abnormality. Dictated and Authenticated by: Nicole Fernández MD. Ordering:RICHARD Rivas MD
[2020-06-19 19:59] LABS: Bilirubin Negative (Negative); Blood Negative (Negative); Clarity Clear (Clear); Glucose Negative (Negative); Ketones Negative (Negative); Leukocyte Esterase Trace (Negative); Nitrite Negative (Negative); Specific Gravity 1.015 (1.005-1.025); Urobilinogen 0.2 EU/dL (Up TO 0.2); pH 7.5 (5-8)
[2020-06-19 20:10] LABS: Bacteria Negative HPF (Negative); C & S Indicated? No; Crystals Negative HPF (Negative); Epithelial Cells Few HPF (Negative); Mucus Negative (Negative); RBC 0-2 HPF (0-2); WBC 0-2 HPF (0-5)
[2020-06-19] MEDS: ACETAMINOPHEN 1,000 MG/100 ML BTL 400 MG IVPB (20:26)
[2020-06-19] MEDS: Normal Saline 250 ML 500 ML IV (20:28)
--- NOTE | 2020-06-19 20:45 | RT.EKG_ITS ---
APPROVED REPORT Exam: Resting ECG Patient Location: E HR:84 bpm ECG Measurements Heart Rate 84 AXIS CA 133 P 55 QRSd 90 QRS 15 QT 425 T [id number] QTc 502 Conclusion Sinus rhythm...normal P axis, V-rate 60- 99 Nonspecific T abnormalities, lateral leads...T <-0.10mV, I aVL V5 V6 Prolonged QT interval...QTc >500mS I have reviewed and interpreted ECG and agree with software generated interpretation. No STEMI
[2020-06-19 21:27] LABS: Troponin I < 0.05 ng/mL (<0.06)
--- NOTE | 2020-06-19 22:34 | HPE_ITS ---
Date of service: 06/19/20 Time of Service: 22:36 Assessment and Plan Assessment and plan (1) Head trauma: Status: Acute Assessment and plan: Blunt head trauma. We don't know whether there actually was a fall, and if so whether mechanical or syncopal, but in either case there appears likely there is now an element of concussion; suffice to say we have no evidence of any more specific head injury or neurological event. Will monitor overnight and have PT evaluation in AM. History of Present Illness History of Present Illness Chief Complaint: head trauma Narrative: 69 male with h/o multifactorial ambulatory dysfunction, uses a walker -- was in usual state of health when left for a short period of time this afternoon. When she returned she found him with a frontal laceration. He has been unable to give an account of this other than to say he must have fallen, though he does not recall this. In ER w/u of note for neg. C-spine, CT head without acute findings (has chronic SDH) and forehead hematoma. EKG w/o acute changes, and trop neg x 2. Patient has a degree of baseline unsteadiness but when staff attempted to ambulate him he was too unsteady to be considered safe and is admitted for further management. At the present time he is feeling more or less comfortable but when I ask him to walk he gets vertiginous as he starts to sit up. Review of Systems All systems reviewed & are unremarkable except as noted in HPI and below [facility] Medical History (Updated 06/19/20 @ 22:47 by Sergio Nguyen MD) CAD (coronary artery disease) Chronic low back pain Chronic subdural hematoma Colon polyps Depression Diastasis recti DM type 2 (diabetes mellitus, type 2) Fatty liver GERD (gastroesophageal reflux disease) Gout H/O alcohol abuse Headaches due to 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 Hx of deep venous thrombosis Hyperlipidemia Hypertension Hypothyroidism MRSA infection Obstructive sleep apnea Pituitary abnormality Right sided weakness Urethral stricture Vitamin D deficiency Surgical History Appendectomy (06/01/16) Colonoscopy - MAC 2009-5year f/u 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 electroconvulsive therapy Extraction of cataract facial lesion removal Repair of inguinal hernia (08/05/17) right inguinal hernia repair by Dr Arroyo on 08/05/17 Repair of umbilical hernia Social History Smoking/Tobacco Use Status: Never Smoking risk assessment performed?: Yes Alcohol Intake: former Drug use: Never Substance use type: does not use Household members: spouse Housing: house Pets and animals: Yes Pets and animals: dog(s) Do you feel safe at home: Yes Do you feel safe in your relationship?: Yes Meds Home Medications and Allergies Home Medications Medication Instructions Recorded Confirmed Type allopurinol 300 mg PO DAILY 01/24/13 06/19/20 History levothyroxine 50 mcg PO DAILY@0730 01/24/13 06/19/20 History quetiapine [Seroquel] 300 mg PO HS 01/24/13 06/19/20 History rosuvastatin [Crestor] 20 mg PO HS 03/22/17 06/19/20 History docusate sodium [Dulcolax Stool 100 mg PO DAILY PRN 04/08/17 06/19/20 History Softener (dss)] nitroglycerin [Nitrostat] 0.4 mg SUBLINGUAL as directed 04/08/17 06/19/20 History polyethylene glycol 3350 [Miralax] 17 g PO DAILY PRN #255 gm 04/08/17 06/19/20 History acetaminophen [Tylenol] 2 tab PO Q4H PRN PRN tab 05/24/17 06/19/20 Rx Levemir FlexTouch U-100 Insuln 100 units SUBCUT BID 08/04/17 06/19/20 History gabapentin 300 mg capsule 300 mg PO HS cap 07/27/18 06/19/20 History cholecalciferol (vitamin D3) 1,000 unit PO DAILY 11/11/18 06/19/20 History [Vitamin D3] gabapentin 100 mg capsule 100 mg PO QAM 12/12/18 06/19/20 History metformin [Glucophage] 1,000 mg PO BID 03/08/19 06/19/20 History riboflavin (vitamin B2) 100 mg 400 mg PO DAILY tab 03/28/19 06/19/20 History tablet topiramate 25 mg sprinkle capsule 75 mg PO HS cap 03/28/19 06/19/20 History bisacodyl 5 mg tablet,delayed 5 mg PO DAILY PRN tab 04/17/19 06/19/20 History release carboxymethylcellulose sodium 0.5 1 drp OP 4-6XD PRN 04/17/19 06/19/20 History % eye drops cod liver oil 1 cap PO DAILY 04/17/19 06/19/20 History pantoprazole [Protonix] 40 mg PO DAILY #30 tab 04/25/19 06/19/20 Rx metoprolol succinate 50 mg 50 mg PO DAILY 05/10/19 06/19/20 History tablet,extended release 24 hr acetylcysteine 600 mg capsule 600 mg PO DAILY cap 05/16/19 06/19/20 History citalopram 20 mg tablet 10 mg PO QHS tab 05/16/19 06/19/20 History lisinopril 20 mg PO DAILY 05/24/19 06/19/20 History magnesium 400 mg PO DAILY 07/07/19 06/19/20 History diclofenac sodium 1 % topical gel 2 g TOPICAL QID 04/30/20 06/19/20 History lisinopril 10 mg tablet 10 mg PO DAILY 04/30/20 06/19/20 History ranolazine 500 mg tablet,extended 500 mg PO BID 04/30/20 06/19/20 History release,12 hr tramadol 50 mg tablet 50 mg PO Q6H PRN 04/30/20 06/19/20 History isosorbide mononitrate 60 mg 60 mg PO DAILY #90 tab 05/28/20 06/19/20 Rx tablet,extended release 24 hr liraglutide [Victoza 2-Thanh] 1.8 mg SUBCUT HS 06/19/20 06/19/20 History potassium 10 mg PO DAILY 06/19/20 06/19/20 History Allergies Allergy/AdvReac Type Severity Reaction Status Date / Time amoxicillin Allergy Severe breathing Unverified 06/19/20 18:04 difficuty and vomiting Penicillins Allergy Skin Rash Unverified 06/19/20 18:04 sulfamethoxazole Allergy Skin Rash Unverified 06/19/20 18:04 [From Bactrim] trimethoprim [From Bactrim] Allergy Skin Rash Unverified 06/19/20 18:04 oxycodone HCl [From Percocet] AdvReac Severe Contraindic Unverified 06/19/20 18:04 ated oxycodone terephthalate AdvReac Severe Contraindic Unverified 06/19/20 18:04 [From Percodan] ated Exam Narrative Exam Narrative: 143/77, 85, 36.6, 20, 99% RA. HEENT 3-4 cm left frontal scalp hematoma with skin tear oozing blood at dome; neck supple; lungs clear; heart RRR; abdomen soft and NT; extremities w/o edema; neuro Ox3, language fluent, PERRL, EOMI; motor slight resting tremor, strength 5/5 Results Labs Result diagrams: 06/19/20 17:55 06/19/20 17:55 Labs: Laboratory Results - last 24 hr 06/19/20 06/19/20 06/19/20 17:55 17:55 17:55 WBC 5.68 RBC 4.66 Hgb 13.2 L Hct 40.2 MCV 86.3 MCH 28.3 MCHC 32.8 RDW 13.9 Plt Count 173 MPV 8.7 Immature Gran % 0.4 Neutrophils % 64.8 Lymphocytes % 19.5 Monocytes % 9.3 Eosinophils % 4.9 Basophils % 1.1 Nucleated RBC % 0 Absolute Neutrophils 3.68 Absolute Lymphocytes 1.11 L Absolute Monocytes 0.53 Absolute Eosinophils 0.28 Absolute Basophils 0.06 PT 10.0 INR 1.0 APTT 25.5 Sodium 135 L Potassium 4.0 Chloride 103 Carbon Dioxide 22.6 Anion Gap 9.4 BUN 16 Creatinine 1.31 H Estimated GFR/1.73 m2 54.09 Glucose 200 H Calcium 8.8 Magnesium 2.2 Total Bilirubin 0.3 AST 16 ALT 33 Alkaline Phosphatase 95 Troponin I < 0.05 Total Protein 7.6 Albumin 4.2 Urine Color Urine Clarity Urine pH Ur Specific [place] Urine Protein Urine Ketones Urine Blood Urine Nitrite Urine Bilirubin Urine Urobilinogen Ur Leukocyte Esterase Urine RBC Urine WBC Ur Epithelial Cells Urine Crystals Urine Bacteria Urine Mucus Ur Culture Indicated? Urine Glucose 06/19/20 06/19/20 19:52 21:03 WBC RBC Hgb Hct MCV MCH MCHC RDW Plt Count MPV Immature Gran % Neutrophils % Lymphocytes % Monocytes % Eosinophils % Basophils % Nucleated RBC % Absolute Neutrophils Absolute Lymphocytes Absolute Monocytes Absolute Eosinophils Absolute Basophils PT INR APTT Sodium Potassium Chloride Carbon Dioxide Anion Gap BUN Creatinine Estimated GFR/1.73 m2 Glucose Calcium Magnesium Total Bilirubin AST ALT Alkaline Phosphatase Troponin I < 0.05 Total Protein Albumin Urine Color Yellow Urine Clarity Clear Urine pH 7.5 Ur Specific [place] 1.015 Urine Protein Negative Urine Ketones Negative Urine Blood Negative Urine Nitrite Negative Urine Bilirubin Negative Urine Urobilinogen 0.2 Ur Leukocyte Esterase Trace H Urine RBC 0-2 Urine WBC 0-2 Ur Epithelial Cells Few Urine Crystals Negative Urine Bacteria Negative Urine Mucus Negative Ur Culture Indicated? No Urine Glucose Negative Last Vital Signs Temp 36.6 C 06/19/20 17:52 Pulse 85 06/19/20 21:15 Resp 20 06/19/20 21:15 BP 143/77 H 06/19/20 21:15 Pulse Ox 99 06/19/20 21:15 COVID-19 Screening Have you, or household traveled for leisure in last 14 days?: No Had IN PERSON contact w/suspected or confirmed C-19 person: No
[2020-06-19] MEDS: Gabapentin 300 MG CAP PO (22:52)
[2020-06-20] VITALS (7 sets, daily range): BP systolic 109–145; BP diastolic 67–73; PULSE 75–93; RESP 16–17; TEMP 36.2–37.2; O2SAT 96–98
[2020-06-20] MEDS: QUEtiapine 300 MG TAB PO (00:51)
[2020-06-20] MEDS: traMADol 50 MG TAB PO ×2 (03:15→12:40)
[2020-06-20] MEDS: Allopurinol 300 MG TAB PO (08:07)
[2020-06-20] MEDS: Pantoprazole 40 MG TABCR PO (08:07)
[2020-06-20] MEDS: Gabapentin 100 MG CAP PO (08:07)
[2020-06-20] MEDS: Levothyroxine 50 MCG TAB PO (08:07)
[2020-06-20] MEDS: Isosorbide Mononitrate 60 MG TABCR PO (08:07)
[2020-06-20] MEDS: Lisinopril 10 MG TAB PO (08:07)
[2020-06-20] MEDS: Potassium Chloride 10 MEQ TABCR PO (08:08)
[2020-06-20] MEDS: metFORMIN 500 MG TAB 1000 MG PO ×2 (08:08→17:15)
[2020-06-20] MEDS: Metoprolol CR 50 MG TABCR PO (08:08)
[2020-06-20] MEDS: Magnesium Oxide 400 MG TAB 200 MG PO (08:08)
[2020-06-20] MEDS: Lisinopril 20 MG TAB PO (08:08)
[2020-06-20] MEDS: Insulin Aspart 300 UNITS/3 ML PEN SC ×2 (08:09→12:36)
[2020-06-20] MEDS: Diclofenac 1% Gel 100 GM TUBE TP ×3 (08:11→17:03)
--- NOTE | 2020-06-20 08:48 | INITIAL_ITS ---
- If Service Date Differs Date of service: 06/20/20 Time of Service: 08:48 Care Management Initial Assess REASON FOR HOSPITALIZATION:: Head Trauma PAST MEDICAL HISTORY/PAST SURGICAL HISTORY:: Medical History (Updated 06/19/20 @ 22:47 by Sergio Nguyen MD). CAD (coronary artery disease). Chronic low back pain. Chronic subdural hematoma. Colon polyps. Depression. Diastasis recti. DM type 2 (diabetes mellitus, type 2). Fatty liver. GERD (gastroesophageal reflux disease). Gout. H/O alcohol abuse. Headaches due to 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. Hx of deep venous thrombosis. Hyperlipidemia. Hypertension. Hypothyroidism. MRSA infection. Obstructive sleep apnea. Pituitary abnormality. Right sided weakness. Urethral stricture. Vitamin D deficiency. Surgical History . Appendectomy (06/01/16). Colonoscopy - MAC. 2009-5year f/u. Coronary Artery Bypass Gaft (CABG). 04/2016. electroconvulsive therapy. Extraction of cataract. facial lesion removal. Repair of inguinal hernia (08/05/17). right inguinal hernia repair by Dr Arroyo on 08/05/17. Repair of umbilical hernia PREVIOUS FUNCTIONAL STATUS/SOCIAL/FAMILY SUPPORTS:: Fredo lives in [facility] with his of 50 years, Brittany. Their adult son, Andrew also lives at home with them. Fredo is retired and independent with ADL's. He uses a walker and a quad cane for ambulation and has a urinal. Fredo does not receive any services at home but his son and provide a lot of support. CURRENT FUNCTIONAL STATUS:: Fredo was sitting up in bed when CM met with him. He was pleeasant in interaction and agreeable to conversation. Fredo stated that he is waiting to go home. He anticipates that his and/or son will pick him up late afternoon. He denied the need for any additional supports in the home. ADVANCE DIRECTIVES:: On file. Brittany ASKEW Has patient been provided with info about the portal/API?: Yes Did the patient sign up for the portal?: Yes (previously) CODE STATUS:: Full Code INSURANCE COVERAGE / FINANCIAL ISSUES:: Medicare. [employer] CURRENT HOME/COMMUNITY SERVICES/EQUIPMENT:: walker, quad cane and urinal PRIMARY CARE PHYSICIAN:: Alisa Ramirez POTENTIAL DISCHARGE NEEDS:: Follow up with PCP and discharge plan of care PATIENT/FAMILY EDUCATION NEEDS:: Discharge plan, folllow up, limitations, Ask Me Three TRANSPORTATION:: via private vehicle with PLAN:: Fredo will be discharged home with no new services . He will follow up with his PCP and plan of care and transport with family.
--- NOTE | 2020-06-20 11:40 | W.INDIABCONS ---
Date of service: 06/20/20 Time of Service: 11:15 Diabetes Inpatient Consult DESCRIPTION/ASSESSMENT: 69 y/o male w/ head injury and hx DM2. On metformin 100mg BID, victoza 1.8mg hs, Levemir 100 u BID. 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 Denies blurred vision. Reports he is eating 100% at meals. His does the cooking at home. he has hx elevated A1c (8.1% 11/07) and BG. Noted: FBG today was 188mg/dl. Noted: he is on 300 mg seroquel which may contribute to his elevated BG levels. He denies that he needs DM education but is receptive to learning about CGM. INTERVENTION: Provided information and literature on CGM, recommended outpatient visit with this RD to facilitate placement and further education to help prevent further complications from DM. PLAN: This RD will call PCP at [facility] to recommend trx for CGM and referral for placement and furthewr education to help with elevated BG levels. Time Spent in Nutritional Counseling and Treatment: 15 minutes
--- NOTE | 2020-06-20 12:49 | PT.INIE ---
Date of service: 06/20/20 Time of Service: 12:49 PT Notes Visit Reasons: HEAD INJURY Physical Therapy Inpatient Initial Evaluation Date: 06/20/2020 Referring Doctor: Unruly Eller MD PT Orders: PT CONSULT: Safety consult for D/C Precautions: Fall. Standard. Activity as tolerated. Patient Profile/Admitting Diagnosis: Fredo is a 69-year-old male who presented to the ED on 06/19/2020 with forehead laceration and with report of neck and right-sided hip pain due to a fall that caused him to strike his head. He is diagnosed with head trauma with concussion with referral to physical therapy for safety assessment in anticipation of discharge to home today. PMHX: Medical History (Updated 06/19/20 @ 22:47 by Sergio Nguyen MD) CAD (coronary artery disease) Chronic low back pain Chronic subdural hematoma Colon polyps Depression Diastasis recti DM type 2 (diabetes mellitus, type 2) Fatty liver GERD (gastroesophageal reflux disease) Gout H/O alcohol abuse Headaches due to 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 Hx of deep venous thrombosis Hyperlipidemia Hypertension Hypothyroidism MRSA infection Obstructive sleep apnea Pituitary abnormality Right sided weakness Urethral stricture Vitamin D deficiency Surgical History Appendectomy (06/01/16) Colonoscopy - MAC 2010-5year f/u 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 Electroconvulsive therapy Extraction of cataract facial lesion removal Repair of inguinal hernia (08/05/17) right inguinal hernia repair by Dr Arroyo on 08/05/17 Repair of umbilical hernia Social History/Home Situation: Lives with and son in a private home with 2 steps to enter. Has a walker and a cane although he states he does not use them indicating that he instead would hold onto furniture and frey if he needed to. Has had 3 falls in the past year. States that and son are with him 22 hours each day, gone for only 2 hours to do work and family errands. He elaborates that and son sets him up so that he does not need to get out of his chair or bed while they are both gone, urinal is on hand when needed. Equipment Owned/DME: Front wheeled walker, single-point cane Subjective: Reports a 5/10 pain in his forehead at rest. Nurse Morel is aware and has given patient a pain pill half an hour ago. Complained of mild lightheadedness during ambulation activity. Hopeful that he can go home today. Objective: General Observation: Supine in bed. IV access in left UE. Mental Status: Alert and oriented as to person, place, time, and purpose Pain: 10/28 frontal headache ROM: Right Upper Extremity: Shoulder Flexion allows about 100 degrees. Shoulder abduction allows about 100 degrees. Elbow flexion WFL. Wrist flexion WFL. Opening and closing of hand WFL. Left Upper Extremity: Shoulder Flexion WFL. Shoulder abduction WFL. Elbow flexion WFL. Wrist flexion WFL. Opening and closing of hand WFL. Right Lower Extremity: Hip flexion WFL. Hip abduction WFL. Knee flexion WFL. Ankle dorsiflexion WFL. Ankle plantarflexion WFL. Left Lower Extremity: Hip flexion WFL. Hip abduction WFL. Knee flexion WFL. Ankle dorsiflexion WFL. Ankle plantarflexion WFL. Strength: Right Upper Extremity: Shoulder flexors 3-/5. Shoulder abductors 3-/5. Elbow flexors 4-/5. Elbow extensors 4-/5. Bread Panner weak but functional. Left Upper Extremity: Shoulder flexors 3-/5. Shoulder abductors 3-/5. Elbow flexors 4-/5. Elbow extensors 4-/5. Bread Panner weak but functional. Right Lower Extremity: Hip flexors 4-/5. Hip abductors 4-/5. Knee flexors 4-/5. Knee extensors 4-/5. Ankle dorsiflexors 4-/5. Ankle plantarflexors 4-/5. Left Lower Extremity: Hip flexors 4-/5. Hip abductors 4-/5. Knee flexors 4-/5. Knee extensors 4-/5. Ankle dorsiflexors 4-/5. Ankle plantarflexors 4-/5. Sensation: Intact as to pain and pressure on bilateral lower extremities. Bed Mobility/Transfers: Supine to sit independent Sit to supine independent Sit to stand contact guard assist Stand to sit contact guard assist Bed to chair contact guard assist Chair to bed contact guard assist Gait: Guided patient through level surface ambulation using FWW for 50 feet + 50 feet using FWW and CGA with complaints of dizziness and headache at 10/28. Wheelchair follow done for safety. Balance: Static Sitting: Normal Dynamic Sitting: Normal Static Standing: Fair Dynamic Standing: Fair Special Tests: Mobility Limitations Standardized Measure [facility] AM-PAC 6 clicks Basic Mobility Inpatient Short Form: Raw Score: 20 CMS Score: 36% deficit Informed Consent/Education: Patient was instructed in purpose of PT consult. Assessment: Reported headache at 5/10 and dizziness during mobility performance. Will require use of a front-wheeled walker and assist of 1 for all mobility ADL performance at home. Fredo will have the support of his and his son with everything he needs at home. He will be set up so that he does not need to walk nor transfer during the two hours that he will be alone at home while both the and son work. He has good safety awareness and is cognizant of his deficits. Patient presents with clinical signs and symptoms consistent ith current/admitting diagnoses that have resulted to mobility limitations, gait instability, generalized weakness, and impairment of motor control as demonstrated by the following impairment level findings: 1. Decreased strength to B LE major muscle groups 2. Impaired standing balance 3. Impaired activity tolerance 4. Limitation of joint range of motion in B shoulders Impairments are contributing to the following functional limitations: 1. Inability to safely ambulate without assistive device and physical assistance 2. Increase completion time for mobility ADL performance 3. Increased fall risk 4. Inability to negotiate steps alone safely Patient is assessed as a [id number] moderate complexity based on the following: History: 69-year-old male with impairment level findings, functional limitations, and past medical history as indicated above Examination: Demonstrable impairment in strength, balance, and mobility level with underlying impairments and functional limitations as documented above Presentation:Evolving Decision Makin moderate complexity Goals: N/A. PT evaluation only and 1 treatment session only for safety recommendations and functional mobility training. Plan of Care/Treatment Plan: N/A. PT evaluation only and 1 treatment session only for safety recommendations and functional mobility training. DISCHARGE RECOMMENDATIONS: Home when medically cleared by hospitalist. Needs to use front-wheeled walker for all transfer and ambulation task performance for maximized safety. Fredo will benefit from home health PT services in order to progress mobility level using least restrictive assistive ambulatory device, assess home safety, identify additional equipment needs, and establish a functional maintenance program that will increase ability of patient to remain at home. Resume out-patient PT services whenever safe to do so. TREATMENT CODE/TIME: 33846 x 26 minutes beginning at 12:49 PM. Thank you for the opportunity to participate in the care of this patient. Renae Armenta PT, DPT, CLT [facility] [place], [place]
--- NOTE | 2020-06-20 13:18 | W.PM.PROGNOT ---
Date of Service Date of service: 06/20/20 Time of Service: 13:18 Assessment and Plan Assessment and plan (1) Head trauma: Status: Acute Assessment and plan: He has a closed head injury but seems to be neurologically intact (or at least he is at his baseline). If he passes P.T. evaluation, he should return home. Qualifiers: Encounter type: initial encounter Qualified Code(s): S09.90XA - Unspecified injury of head, initial encounter Subjective Subjective Interval history since last seen: Patient was admitted last night after a fall at home. He ambulates w/ a walker. He has hx of TBI. The patient believes that he slipped and lost his balance but is unsure. He has mild congitive impairment at his baseline d/t his TBI. He has been on telemetry overnight w/ no arrhythmias, sinus rhythm w/ sinus tachycardia w/ activity. Patient has no headache although he has a contusion over his left forehead w/ abrasion. he was suppose to have P.T. evaluation this morning but this did not get ordered last night. I spoke w/ Azeb in P.T. and put in the order. She will be evaluating his ambulatory status and making recommendations. His diagnostic workup last night included CT head, cervical neck, chest/abdomen/pelvis. He has cervical DJD but no acute pathology. CT head shows stable left frontal arachnoid cyst and enlarged pituitary gland all unchanged from prior studies from 03/12/2019. CT chest/abdomen and pelvis showed no acute abnormalities. If he is able to ambulate safely w/ walker, then I think that he can return home this afternoon. Exam Narrative Exam Narrative: Elderly male lying in bed, no distress, watching TV. Spine non-tender to palpation Right hip is tender but he has normal ROM w/ flexion/extension and internal and external rotation. Normal strength in both legs and feet and in both arms and hands. No facial asymmetry, normal speech pattern Forehead w/ superficial abrasion and small hematoma. Objective Last Vital Signs Temp 37.2 C 06/20/20 07:58 Pulse 89 06/20/20 07:58 Resp 17 06/20/20 07:58 BP 109/68 06/20/20 07:58 Pulse Ox 96 06/20/20 08:10 Laboratory Results - last 24 hr 06/19/20 06/19/20 06/19/20 17:55 17:55 17:55 WBC 5.68 RBC 4.66 Hgb 13.2 L Hct 40.2 MCV 86.3 MCH 28.3 MCHC 32.8 RDW 13.9 Plt Count 173 MPV 8.7 Immature Gran % 0.4 Neutrophils % 64.8 Lymphocytes % 19.5 Monocytes % 9.3 Eosinophils % 4.9 Basophils % 1.1 Nucleated RBC % 0 Absolute Neutrophils 3.68 Absolute Lymphocytes 1.11 L Absolute Monocytes 0.53 Absolute Eosinophils 0.28 Absolute Basophils 0.06 PT 10.0 INR 1.0 APTT 25.5 Sodium 135 L Potassium 4.0 Chloride 103 Carbon Dioxide 22.6 Anion Gap 9.4 BUN 16 Creatinine 1.31 H Estimated GFR/1.73 m2 54.09 Glucose 200 H Calcium 8.8 Magnesium 2.2 Total Bilirubin 0.3 AST 16 ALT 33 Alkaline Phosphatase 95 Troponin I < 0.05 Total Protein 7.6 Albumin 4.2 Urine Color Urine Clarity Urine pH Ur Specific [place] Urine Protein Urine Ketones Urine Blood Urine Nitrite Urine Bilirubin Urine Urobilinogen Ur Leukocyte Esterase Urine RBC Urine WBC Ur Epithelial Cells Urine Crystals Urine Bacteria Urine Mucus Ur Culture Indicated? Urine Glucose 06/19/20 06/19/20 19:52 21:03 WBC RBC Hgb Hct MCV MCH MCHC RDW Plt Count MPV Immature Gran % Neutrophils % Lymphocytes % Monocytes % Eosinophils % Basophils % Nucleated RBC % Absolute Neutrophils Absolute Lymphocytes Absolute Monocytes Absolute Eosinophils Absolute Basophils PT INR APTT Sodium Potassium Chloride Carbon Dioxide Anion Gap BUN Creatinine Estimated GFR/1.73 m2 Glucose Calcium Magnesium Total Bilirubin AST ALT Alkaline Phosphatase Troponin I < 0.05 Total Protein Albumin Urine Color Yellow Urine Clarity Clear Urine pH 7.5 Ur Specific [place] 1.015 Urine Protein Negative Urine Ketones Negative Urine Blood Negative Urine Nitrite Negative Urine Bilirubin Negative Urine Urobilinogen 0.2 Ur Leukocyte Esterase Trace H Urine RBC 0-2 Urine WBC 0-2 Ur Epithelial Cells Few Urine Crystals Negative Urine Bacteria Negative Urine Mucus Negative Ur Culture Indicated? No Urine Glucose Negative
--- NOTE | 2020-06-20 15:11 | DSE_ITS ---
Date of service: 06/20/20 Time of Service: 15:11 DS: Diagnosis Discharge Diagnosis (1) Head trauma: Status: Acute Discharge Plan Disposition Patient Disposition: HOME Condition: Improving Discharge Details Reason For Visit: HEAD INJURY Admit Date/Time: 06/19/20 22:53 Admit Provider: Sergio Nguyen Attending Provider: Sergio Nguyen Primary Care Provider: Alisa Ramirez Hospital Course Hospital Course: Patient sustained a closed head injury with abrasion to his left forehead after a fall at home. CT scan of his head neck chest abdomen pelvis were performed. Cervical spine showed DJD but no fractures or listhesis. CT of the head showed a stable left frontal arachnoid cyst and enlarged pituitary gland unchanged from prior studies. No evidence of acute intracranial or subdural bleeding. CT of the chest abdomen pelvis showed no acute abnormalities. Patient was monitored overnight on telemetry and no cardiac dysrhythmias were observed. Physical therapy was consulted to evaluate his safety for discharge. He was ambulated with a walker complained of some dizziness but had no syncope or orthostasis. Patient had a slight headache which has since resolved. Physical therapy feels that the patient could be safe for discharge as long as he uses his walker and has a bedside urinal or commode to use while he is alone. 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 He does use a quad cane to get around on the upper floor because he says is too tight for a walker to be used. Home Meds and New Rx's Prescriptions: Continued gabapentin 100 mg capsule 100 mg PO QAM RF: 0 acetylcysteine [NAC] 600 mg capsule 600 mg PO DAILY RF: 0 cod liver oil Capsule 1 cap PO DAILY RF: 0 Refresh Tears 0.5 % drops 1 drp OP 4-6XD PRNRF: 0 bisacodyl [Dulcolax (bisacodyl)] 5 mg tablet,delayed release (DR/EC) 5 mg PO DAILY PRNRF: 0 metoprolol succinate 50 mg tablet extended release 24 hr 50 mg PO DAILY RF: 0 citalopram 20 mg tablet 10 mg PO QHS RF: 0 lisinopril 10 mg tablet 10 mg PO DAILY RF: 0 diclofenac sodium [Voltaren] 1 % gel 2 g topical QID RF: 0 ranolazine [Ranexa] 500 mg tablet extended release 12 hr 500 mg PO BID RF: 0 tramadol 50 mg tablet 50 mg PO Q6H PRNRF: 0 polyethylene glycol 3350 [Miralax] 17 GM powder in packet 17 g PO DAILY PRNQty: 255 RF: 0 nitroglycerin [Nitrostat] 0.4 MG tablet, sublingual 0.4 mg Sublingual as directed RF: 0 docusate sodium [Dulcolax Stool Softener (dss)] 100 MG capsule 100 mg PO DAILY PRNRF: 0 Levemir FlexTouch U-100 Insuln 100 UNIT/1 ML insulin pen 100 units subcut BID RF: 0 riboflavin (vitamin B2) [Vitamin B-2] 100 mg tablet 400 mg PO DAILY RF: 0 topiramate [Topamax] 25 mg capsule, sprinkle 75 mg PO HS RF: 0 isosorbide mononitrate 60 mg tablet extended release 24 hr 60 mg PO DAILY Qty: 90 RF: 6 levothyroxine 50 MCG tablet 50 mcg PO DAILY@0730 RF: 0 allopurinol 300 MG tablet 300 mg PO DAILY RF: 0 quetiapine [Seroquel] 300 MG tablet 300 mg PO HS RF: 0 rosuvastatin [Crestor] 20 MG tablet 20 mg PO HS RF: 0 metformin [Glucophage] 1,000 mg Tablet 1,000 mg PO BID RF: 0 lisinopril 20 mg Tablet 20 mg PO DAILY RF: 0 acetaminophen [Tylenol] 325 MG tablet 2 tab PO Q4H PRN PRNRF: 0 gabapentin 300 mg capsule 300 mg PO HS RF: 0 cholecalciferol (vitamin D3) [Vitamin D3] 1,000 unit Tablet 1,000 unit PO DAILY RF: 0 pantoprazole [Protonix] 40 mg tablet,delayed release (DR/EC) 40 mg PO DAILY Qty: 30 RF: 0 magnesium 250 mg Tablet 400 mg PO DAILY RF: 0 Victoza 2-Thanh 0.6 mg/0.1 mL (18 mg/3 mL) pen injector 1.8 mg SUBCUT HS RF: 0 potassium 20 mg Tablet,Chewable 10 mg PO DAILY RF: 0 Discharge Instructions Instructions: Concussion (DC) Referrals: Alisa Ramirez MD [Primary Care Provider] - (call the office for appointment next week) Activity:: use walker at all times Equipment/Supplies:: No Equipment Needed Diet:: Normal Diet Discharge Orders Discharge Orders: Discharge Order (Routine); Ordered 06/20/20 Ordered By: Unruly Eller DS: Summary Status at Discharge Functional status at discharge: uses cane/walker Overall status at discharge: patient is back to baseline Mental Status: mental status grossly normal Speech and Movement: speech and movement normal Mood: congruent mood Affect: normal affect Time Spent with Patient providing and/or coordinating discharge services: Less than 30 minutes Exam Psych Mental Status: mental status grossly normal Speech and Movement: speech and movement normal Mood: congruent mood Affect: normal affect DS: Data Vitals/I&O Vitals and I&O: Vital Signs Temperature 37.2 C 06/20/20 07:58 Temperature Source Temporal Artery Scan 06/20/20 07:58 Pulse 89 06/20/20 07:58 Pulse Rhythm Regular 06/20/20 08:10 Pulse 87 06/19/20 23:15 Respiratory Rate 17 06/20/20 07:58 Respiratory Effort Non-Labored 06/20/20 08:10 Respiratory Depth Normal 06/20/20 08:10 Respiratory Pattern Normal 06/20/20 08:10 Blood Pressure 109/68 06/20/20 07:58 Blood Pressure Mean 78 06/19/20 23:15 Blood Pressure Position Supine 06/19/20 17:52 Pulse Oximetry 96 06/20/20 08:10 Oxygen Delivery Method Room Air 06/20/20 08:10 Oxygen Flow Rate 0 06/20/20 08:10 Pain Level 7 06/20/20 12:40 Intake & Output 06/19/20 06/20/20 06/20/20 23:59 11:59 23:59 Intake Total 350 / 350 1140 / 1590 450 / 1590 Output Total 550 / 550 1674 Balance -200 / -200 -535 / -385 150 / -385 Weight 87 kg Intake: IV 350 / 350 Oral 1140 / 1590 450 / 1590 Output: Urine 550 / 550 1674 Other: Urine Color Yellow Yellow Urine Appearance Clear Clear Urine Odor Normal Normal Comment Patient voided 200mL, then bladder scanned 80mL Voiding Methods Bedside Commode Bedside Commode Diaper Diaper Data Completed and Pending Labs on day of discharge: Labs from last 24 hours 06/19/20 06/19/20 06/19/20 23:10 21:03 19:52 WBC RBC Hgb Hct MCV MCH MCHC RDW Plt Count MPV Immature Gran % Neutrophils % Lymphocytes % Monocytes % Eosinophils % Basophils % Nucleated RBC % Absolute Neutrophils Absolute Lymphocytes Absolute Monocytes Absolute Eosinophils Absolute Basophils PT INR APTT Sodium Potassium Chloride Carbon Dioxide Anion Gap BUN Creatinine Estimated GFR/1.73 m2 Glucose Calcium Magnesium Total Bilirubin AST ALT Alkaline Phosphatase Troponin I < 0.05 Total Protein Albumin Urine Color Yellow Urine Clarity Clear Urine pH 7.5 Ur Specific [place] 1.015 Urine Protein Negative Urine Ketones Negative Urine Blood Negative Urine Nitrite Negative Urine Bilirubin Negative Urine Urobilinogen 0.2 Ur Leukocyte Esterase Trace H Urine RBC 0-2 Urine WBC 0-2 Ur Epithelial Cells Few Urine Crystals Negative Urine Bacteria Negative Urine Mucus Negative Ur Culture Indicated? No Urine Glucose Negative SARS-CoV-2 (PCR) Pending Nasopharyn COVID-19 PCR Pending Ref Test Perform Site Pending 06/19/20 06/19/20 06/19/20 17:55 17:55 17:55 WBC 5.68 RBC 4.66 Hgb 13.2 L Hct 40.2 MCV 86.3 MCH 28.3 MCHC 32.8 RDW 13.9 Plt Count 173 MPV 8.7 Immature Gran % 0.4 Neutrophils % 64.8 Lymphocytes % 19.5 Monocytes % 9.3 Eosinophils % 4.9 Basophils % 1.1 Nucleated RBC % 0 Absolute Neutrophils 3.68 Absolute Lymphocytes 1.11 L Absolute Monocytes 0.53 Absolute Eosinophils 0.28 Absolute Basophils 0.06 PT 10.0 INR 1.0 APTT 25.5 Sodium 135 L Potassium 4.0 Chloride 103 Carbon Dioxide 22.6 Anion Gap 9.4 BUN 16 Creatinine 1.31 H Estimated GFR/1.73 m2 54.09 Glucose 200 H Calcium 8.8 Magnesium 2.2 Total Bilirubin 0.3 AST 16 ALT 33 Alkaline Phosphatase 95 Troponin I < 0.05 Total Protein 7.6 Albumin 4.2 Urine Color Urine Clarity Urine pH Ur Specific [place] Urine Protein Urine Ketones Urine Blood Urine Nitrite Urine Bilirubin Urine Urobilinogen Ur Leukocyte Esterase Urine RBC Urine WBC Ur Epithelial Cells Urine Crystals Urine Bacteria Urine Mucus Ur Culture Indicated? Urine Glucose SARS-CoV-2 (PCR) Nasopharyn COVID-19 PCR Ref Test Perform Site [facility] Medical History (Updated 06/20/20 @ 13:29 by Unruly Eller) CAD (coronary artery disease) Chronic low back pain Chronic subdural hematoma Colon polyps Depression Diastasis recti DM type 2 (diabetes mellitus, type 2) Fatty liver GERD (gastroesophageal reflux disease) Gout H/O alcohol abuse Headaches due to 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 Hx of deep venous thrombosis Hyperlipidemia Hypertension Hypothyroidism MRSA infection Obstructive sleep apnea Pituitary abnormality Right sided weakness Urethral stricture Vitamin D deficiency Surgical History Appendectomy (06/01/16) Colonoscopy - MAC 2009-5year f/u 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 electroconvulsive therapy Extraction of cataract facial lesion removal Repair of inguinal hernia (08/05/17) right inguinal hernia repair by Dr Arroyo on 08/05/17 Repair of umbilical hernia Social History Smoking/Tobacco Use Status: Never Smoking risk assessment performed?: Yes Alcohol Intake: former Drug use: Never Substance use type: does not use Household members: spouse Housing: house Pets and animals: Yes Pets and animals: dog(s) Do you feel safe at home: Yes Do you feel safe in your relationship?: Yes
--- NOTE | 2020-06-20 17:06 | PDOC.CMDIS ---
- If Service Date Differs Date of service: 06/20/20 Time of Service: 17:06 LACE Index Scoring Tool - Questions: Length of Stay (in days): 1 Acuity (Admit via E.D.?): Yes Comorbidities: Diabetes w/o Complication E.D. Visits: 1 - Answers: Total Score: 6 Risk of Readmission: Low Risk Care Management Discharge Reason for Hospitalization: Head Trauma Discharge Plan: Fredo will be discharged home with no new services . He will follow up with his PCP and plan of care and transport with family. Patient/Family Education Needs: Discharge plan, folllow up, limitations, Ask Me Three
[2020-06-21 14:29] LABS: COVID-19 RT-PCR UVMMC Result Negative (Negative)
--- NOTE | 2020-06-24 11:27 | PT.INDS ---
Date of service: 06/24/20 PT Notes Visit Reasons: HEAD INJURY Physical Therapy Inpatient Discharge Summary Date: 06/24/2020 Date of service: 06/20/2020 only This is a clinical summary of care provided on the duration of dates listed above. No charge was made in the completion of this documentation. Referring Doctor: Unruly Eller MD PT Orders: PT CONSULT: Safety consult for D/C Precautions: Fall. Standard. Activity as tolerated. Patient Profile/Admitting Diagnosis: Fredo is a 69-year-old male who presented to the ED on 06/19/2020 with forehead laceration and with report of neck and right-sided hip pain due to a fall that caused him to strike his head. He is diagnosed with head trauma with concussion with referral to physical therapy for safety assessment in anticipation of discharge to home today. PMHX: Medical History (Updated 06/19/20 @ 22:47 by Sergio Nguyen MD) CAD (coronary artery disease) Chronic low back pain Chronic subdural hematoma Colon polyps Depression Diastasis recti DM type 2 (diabetes mellitus, type 2) Fatty liver GERD (gastroesophageal reflux disease) Gout H/O alcohol abuse Headaches due to 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 Hx of deep venous thrombosis Hyperlipidemia Hypertension Hypothyroidism MRSA infection Obstructive sleep apnea Pituitary abnormality Right sided weakness Urethral stricture Vitamin D deficiency Surgical History Appendectomy (06/01/16) Colonoscopy - MAC 2009-5year f/u 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 Electroconvulsive therapy Extraction of cataract facial lesion removal Repair of inguinal hernia (08/05/17) right inguinal hernia repair by Dr Arroyo on 08/05/17 Repair of umbilical hernia Social History/Home Situation: Lives with and son in a private home with 2 steps to enter. Has a walker and a cane although he states he does not use them indicating that he instead would hold onto furniture and frey if he needed to. Has had 3 falls in the past year. States that and son are with him 22 hours each day, gone for only 2 hours to do work and family errands. He elaborates that and son sets him up so that he does not need to get out of his chair or bed while they are both gone, urinal is on hand when needed. Equipment Owned/DME: Front wheeled walker, single-point cane Subjective: NT. See most recent OPINION POLLS SURVEY WORKER notes. Objective: General Observation: NT. See most recent OPINION POLLS SURVEY WORKER notes. Mental Status: NT. See most recent OPINION POLLS SURVEY WORKER notes. Pain: NT. See most recent OPINION POLLS SURVEY WORKER notes. ROM: Right Upper Extremity: Shoulder Flexion allows about 100 degrees. Shoulder abduction allows about 100 degrees. Elbow flexion WFL. Wrist flexion WFL. Opening and closing of hand WFL. Left Upper Extremity: Shoulder Flexion WFL. Shoulder abduction WFL. Elbow flexion WFL. Wrist flexion WFL. Opening and closing of hand WFL. Right Lower Extremity: Hip flexion WFL. Hip abduction WFL. Knee flexion WFL. Ankle dorsiflexion WFL. Ankle plantarflexion WFL. Left Lower Extremity: Hip flexion WFL. Hip abduction WFL. Knee flexion WFL. Ankle dorsiflexion WFL. Ankle plantarflexion WFL. Strength: Right Upper Extremity: Shoulder flexors 3-/5. Shoulder abductors 3-/5. Elbow flexors 4-/5. Elbow extensors 4-/5. Leather Craftsman weak but functional. Left Upper Extremity: Shoulder flexors 3-/5. Shoulder abductors 3-/5. Elbow flexors 4-/5. Elbow extensors 4-/5. Leather Craftsman weak but functional. Right Lower Extremity: Hip flexors 4-/5. Hip abductors 4-/5. Knee flexors 4-/5. Knee extensors 4-/5. Ankle dorsiflexors 4-/5. Ankle plantarflexors 4-/5. Left Lower Extremity: Hip flexors 4-/5. Hip abductors 4-/5. Knee flexors 4-/5. Knee extensors 4-/5. Ankle dorsiflexors 4-/5. Ankle plantarflexors 4-/5. Sensation: Intact as to pain and pressure on bilateral lower extremities. Bed Mobility/Transfers: Supine to sit independent Sit to supine independent Sit to stand contact guard assist Stand to sit contact guard assist Bed to chair contact guard assist Chair to bed contact guard assist Gait: Guided patient through level surface ambulation using FWW for 50 feet + 50 feet using FWW and CGA with complaints of dizziness and headache at 5/10. Wheelchair follow done for safety. Balance: Static Sitting: Normal Dynamic Sitting: Normal Static Standing: Fair Dynamic Standing: Fair Assessment: Reported headache at 5/10 and dizziness during mobility performance. Will require use of a front-wheeled walker and assist of 1 for all mobility ADL performance at home. Fredo will have the support of his and his son with everything he needs at home. He will be set up so that he does not need to walk nor transfer during the two hours that he will be alone at home while both the and son work. He has good safety awareness and is cognizant of his deficits. Patient presents with clinical signs and symptoms consistent ith current/admitting diagnoses that have resulted to mobility limitations, gait instability, generalized weakness, and impairment of motor control as demonstrated by the following impairment level findings: 1. Decreased strength to B LE major muscle groups 2. Impaired standing balance 3. Impaired activity tolerance 4. Limitation of joint range of motion in B shoulders Impairments are contributing to the following functional limitations: 1. Inability to safely ambulate without assistive device and physical assistance 2. Increase completion time for mobility ADL performance 3. Increased fall risk 4. Inability to negotiate steps alone safely Goals: N/A. PT evaluation only and 1 treatment session only for safety recommendations and functional mobility training. Plan of Care/Treatment Plan: N/A. PT evaluation only and 1 treatment session only for safety recommendations and functional mobility training. DISCHARGE RECOMMENDATIONS: Home when medically cleared by hospitalist. Needs to use front-wheeled walker for all transfer and ambulation task performance for maximized safety. Fredo will benefit from home health PT services in order to progress mobility level using least restrictive assistive ambulatory device, assess home safety, identify additional equipment needs, and establish a functional maintenance program that will increase ability of patient to remain at home. Resume out-patient PT services whenever safe to do so. TREATMENT CODE/TIME: NC. Thank you for the opportunity to participate in the care of this patient. Renae Armenta PT, DPT, CLT [facility] [place], [place]
== END 2020-06-20 17:38 | disposition home or self-care (01) ==
LOC: ER 23:20 → MS 23:27
PROVIDERS: Admitting Provider General Practice; Emergency Provider Physician Assistant; PCP Family Medicine; Visit Provider General Practice
DX: S09.90XA Unspecified injury of head, initial encounter (principal); W18.30XA Fall on same level, unspecified, initial encounter; I25.10 Atherosclerotic heart disease of native coronary artery without angina pectoris; M54.5 Low back pain; G89.29 Other chronic pain; F32.9 Major depressive disorder, single episode, unspecified; E11.9 Type 2 diabetes mellitus without complications; S00.83XA Contusion of other part of head, initial encounter; K21.9 Gastro-esophageal reflux disease without esophagitis; K76.0 Fatty (change of) liver, not elsewhere classified; F10.11 Alcohol abuse, in remission; M10.9 Gout, unspecified; E78.5 Hyperlipidemia, unspecified; I10 Essential (primary) hypertension; E03.9 Hypothyroidism, unspecified; G47.33 Obstructive sleep apnea (adult) (pediatric); E55.9 Vitamin D deficiency, unspecified; N35.919 Unspecified urethral stricture, male, unspecified site; Z95.1 Presence of aortocoronary bypass graft; Z79.4 Long term (current) use of insulin
CPT/HCPCS: 36415; 74177; 80053; 93005; 96361; 96365; 96375; 97162; 99222; 99225; 99238; 99285; U0003; 70450; 71260; 72125; 81003; 81015; 83735; 84484; 85025; 85610; 85730; 93010; 99217; 99218; G0378; J0131; J3490

== ENCOUNTER 2020-07-15 17:52 | Outpatient (REF) | payer MEDICARE, OTHER, SELFPAY ==
[2020-07-15 18:26] LABS: COMMENT (LAB VIEW ONLY) 101.85 mg/dL
== END 2020-07-15 18:12 ==
LOC: NCHCN 17:52
PROVIDERS: PCP Family Medicine; Visit Provider Family Medicine
DX: E11.9 Type 2 diabetes mellitus without complications (principal)
CPT/HCPCS: 82043; 82570

== ENCOUNTER → 2020-08-05 11:40 | Outpatient (BNVA) | payer MEDICARE, OTHER, SELFPAY | PROVIDERS: PCP Family Medicine; Referring Provider Family Medicine; Visit Provider Internal Medicine Cardiovascular Disease | DX: I25.119 Atherosclerotic heart disease of native coronary artery with unspecified angina pectoris (principal); R07.89 Other chest pain; I10 Essential (primary) hypertension; E78.5 Hyperlipidemia, unspecified; E11.9 Type 2 diabetes mellitus without complications | CPT/HCPCS: 99214; 99213 ==

== ENCOUNTER 2020-09-18 12:02 | Emergency (ER) | payer MEDICARE, OTHER, SELFPAY ==
[2020-09-18 12:12] VITALS: BP 147/81; PULSE 76; RESP 16; TEMP 36.5; O2SAT 98
--- NOTE | 2020-09-18 12:14 | W.ED.GENAD ---
Discharge Plan Disposition Patient Disposition: HOME Condition: Stable Discharge Details Clinical Impression: Arthritis of right hip, Contusion of right hip Primary Care Provider: Alisa Ramirez ED Provider: Apple Enriquez Home Meds and New Rx's Prescriptions: New methocarbamol 500 mg tablet 500 mg PO Q6H PRN (Reason: muscle spasm) Qty: 14 RF: 0 hydrocodone-acetaminophen 5-325 mg tablet 1 tab PO Q6H PRN (Reason: pain) Qty: 10 RF: 0 Continued gabapentin 100 mg capsule 100 mg PO QAM PRNRF: 0 acetylcysteine [NAC] 600 mg capsule 600 mg PO DAILY RF: 0 cod liver oil Capsule 1 cap PO DAILY RF: 0 carboxymethylcellulose sodium [Refresh Tears] 0.5 % drops 1 drp OP 4-6XD PRNRF: 0 bisacodyl [Dulcolax (bisacodyl)] 5 mg tablet,delayed release (DR/EC) 5 mg PO DAILY PRNRF: 0 metoprolol succinate 50 mg tablet extended release 24 hr 50 mg PO DAILY RF: 0 citalopram 20 mg tablet 10 mg PO QHS RF: 0 diclofenac sodium [Voltaren] 1 % gel 2 g topical QID RF: 0 ranolazine [Ranexa] 500 mg tablet extended release 12 hr 500 mg PO BID RF: 0 tramadol 50 mg tablet 50 mg PO Q6H PRNRF: 0 polyethylene glycol 3350 [Miralax] 17 GM powder in packet 17 g PO DAILY PRNQty: 255 RF: 0 nitroglycerin [Nitrostat] 0.4 MG tablet, sublingual 0.4 mg Sublingual as directed RF: 0 docusate sodium [Dulcolax Stool Softener (dss)] 100 MG capsule 100 mg PO DAILY PRNRF: 0 Levemir FlexTouch U-100 Insuln 100 UNIT/1 ML insulin pen 100 units subcut BID RF: 0 riboflavin (vitamin B2) [Vitamin B-2] 100 mg tablet 400 mg PO DAILY RF: 0 topiramate [Topamax] 25 mg capsule, sprinkle 75 mg PO HS RF: 0 levothyroxine 50 MCG tablet 50 mcg PO DAILY@0730 RF: 0 allopurinol 300 MG tablet 300 mg PO DAILY RF: 0 quetiapine [Seroquel] 300 MG tablet 300 mg PO HS RF: 0 rosuvastatin [Crestor] 20 MG tablet 20 mg PO HS RF: 0 metformin [Glucophage] 1,000 mg Tablet 1,000 mg PO BID RF: 0 lisinopril 20 mg Tablet 30 mg PO DAILY RF: 0 potassium chloride 10 mEq Tablet Extended Release 10 meq PO DAILY RF: 0 isosorbide mononitrate 60 mg tablet extended release 24 hr 90 mg PO DAILY RF: 0 acetaminophen [Tylenol] 325 MG tablet 2 tab PO Q4H PRN PRNRF: 0 gabapentin 300 mg capsule 300 mg PO HS RF: 0 cholecalciferol (vitamin D3) [Vitamin D3] 1,000 unit Tablet 1,000 unit PO DAILY RF: 0 pantoprazole [Protonix] 40 mg tablet,delayed release (DR/EC) 40 mg PO DAILY Qty: 30 RF: 0 magnesium 250 mg Tablet 400 mg PO DAILY RF: 0 Victoza 2-Thanh 0.6 mg/0.1 mL (18 mg/3 mL) pen injector 1.8 mg SUBCUT HS RF: 0 Discharge Instructions Instructions: Sciatica (ED), Contusion in Adults (ED), Hip Pain (ED) Additional Instructions: Your right hip pain may be the result of arthritis, sciatica, or a contusion (bruise) associated with your fall. Your prescriptions have been sent electronically to your pharmacy. Call the pharmacy to make sure your prescriptions are ready before pickup. Take the prescriptions as directed. Use your walker or cane for ambulation. Follow-up with your primary care doctor in 1 week. Return to the emergency department with any worsening or new concerning symptoms. Discharge Data Discharge Physician: Apple Enriquez Medical Decision Making 70-year-old male presents with right hip pain for the past 3 days worse since last night since falling onto her right hip. Right proximal lateral hip with significant tenderness to palpation but no obvious cellulitis or trauma. Limited range of motion due to pain. Neurovascularly intact. No focal deficits. No midline spinal tenderness. Differential diagnosis includes arthritis, bursitis, hip strain versus sprain, pelvic fracture, hip fracture, femur fracture. Will obtain imaging, give a dose of hydrocodone which he has tolerated in the past, Toradol and Valium and reassess. CT imaging reviewed and negative for acute findings. Discussed with patient that his symptoms could be associated with arthritis, sciatica, bursitis, strain or sprain and now worse with contusion. Patient reassessed and he feels better. Patient is able to ambulate with assistance and feels good to go home. Will treat with short course of narcotic pain medications due to patient's inability to ambulate on his right hip. Will hold on steroids due to his history of diabetes and risk for hyperglycemia. Prescriptions for hydrocodone and methocarbamol sent to pharmacy. Medical Records Medical records reviewed: Yes I reviewed the patient's medical records. Imaging Data Radiologic Study: Radiologist's impression: CT LOWER EXTREMITY RT WO CLINICAL HISTORY: r/o fracture R hip. TECHNIQUE: Imaging Protocol: Axial computed tomography images with coronal and sagittal reformatted images were created and reviewed. CONTRAST MATERIAL: No IV contrast. No oral contrast COMPARISON: No exams were available for comparison FINDINGS: No evidence of right hip fracture. No evidence of avascular necrosis. No prominent joint effusion. Mild degenerative changes. No osseous lesions. No ipsilateral intrapelvic hematoma evident. IMPRESSION: No evidence of right hip fracture. HPI General Date/Time Provider Initiated Documentation: 09/18/20 12:13. HPI Narrative: Pt is a 70yo M w/ a h/o subdural hematoma, coronary artery disease, diabetes, GERD, previous alcohol abuse, hypertension, hyperlipidemia presents to the ED with complaint of right hip pain for the past 3 days, worse since falling onto her right hip last night. Patient states that he uses a walker and cane at baseline but is unable to bear weight on his right hip due to the pain. He states that his right leg gave out yesterday while walking due to the right hip pain and he fell onto his right hip onto the ground. He also states that his recently got the Covid vaccine and was sick and unable to clean at her job at [employer] so he and his son were cleaning at [email or web address] yesterday and walking around after he fell. He states today he had worsening right hip pain. He has taken Tylenol for pain without relief. He denies any other injuries. Related Data Home Medications Medication Instructions Recorded Confirmed allopurinol 300 mg PO DAILY 01/24/13 09/18/20 levothyroxine 50 mcg PO DAILY@0730 01/24/13 09/18/20 quetiapine [Seroquel] 300 mg PO HS 01/24/13 09/18/20 rosuvastatin [Crestor] 20 mg PO HS 03/22/17 09/18/20 docusate sodium [Dulcolax Stool 100 mg PO DAILY PRN 04/08/17 09/18/20 Softener (dss)] nitroglycerin [Nitrostat] 0.4 mg SUBLINGUAL as directed 04/08/17 09/18/20 polyethylene glycol 3350 [Miralax] 17 g PO DAILY PRN #255 gm 04/08/17 09/18/20 acetaminophen [Tylenol] 2 tab PO Q4H PRN PRN tab 05/24/17 09/18/20 Levemir FlexTouch U-100 Insuln 100 units SUBCUT BID 08/04/17 09/18/20 gabapentin 300 mg capsule 300 mg PO HS cap 07/27/18 09/18/20 cholecalciferol (vitamin D3) 1,000 unit PO DAILY 11/11/18 09/18/20 [Vitamin D3] gabapentin 100 mg capsule 100 mg PO QAM PRN 12/12/18 09/18/20 metformin [Glucophage] 1,000 mg PO BID 03/08/19 09/18/20 riboflavin (vitamin B2) 100 mg 400 mg PO DAILY tab 03/28/19 09/18/20 tablet topiramate 25 mg sprinkle capsule 75 mg PO HS cap 03/28/19 09/18/20 bisacodyl 5 mg tablet,delayed 5 mg PO DAILY PRN tab 04/17/19 09/18/20 release carboxymethylcellulose sodium 0.5 1 drp OP 4-6XD PRN 04/17/19 09/18/20 % eye drops cod liver oil 1 cap PO DAILY 04/17/19 09/18/20 pantoprazole [Protonix] 40 mg PO DAILY #30 tab 04/25/19 09/18/20 metoprolol succinate 50 mg 50 mg PO DAILY 05/10/19 09/18/20 tablet,extended release 24 hr acetylcysteine 600 mg capsule 600 mg PO DAILY cap 05/16/19 09/18/20 citalopram 20 mg tablet 10 mg PO QHS tab 05/16/19 09/18/20 lisinopril 30 mg PO DAILY 05/24/19 09/18/20 magnesium 400 mg PO DAILY 07/07/19 09/18/20 diclofenac sodium 1 % topical gel 2 g TOPICAL QID 04/30/20 09/18/20 ranolazine 500 mg tablet,extended 500 mg PO BID 04/30/20 09/18/20 release,12 hr tramadol 50 mg tablet 50 mg PO Q6H PRN 04/30/20 09/18/20 Victoza 2-Thanh 1.8 mg SUBCUT HS 06/19/20 09/18/20 hydrocodone-acetaminophen 1 tab PO Q6H PRN #10 tab 09/18/20 isosorbide mononitrate 90 mg PO DAILY 09/18/20 09/18/20 methocarbamol 500 mg PO Q6H PRN #14 tab 09/18/20 potassium chloride 10 meq PO DAILY 09/18/20 09/18/20 Previous Rx's Medication Instructions Recorded acetaminophen [Tylenol] 2 tab PO Q4H PRN PRN tab 05/24/17 pantoprazole [Protonix] 40 mg PO DAILY #30 tab 04/25/19 hydrocodone-acetaminophen 1 tab PO Q6H PRN #10 tab 09/18/20 methocarbamol 500 mg PO Q6H PRN #14 tab 09/18/20 Allergies Allergy/AdvReac Type Severity Reaction Status Date / Time amoxicillin Allergy Severe breathing Unverified 09/18/20 12:16 difficuty and vomiting Penicillins Allergy Skin Rash Unverified 09/18/20 12:16 sulfamethoxazole Allergy Skin Rash Unverified 09/18/20 12:16 [From Bactrim] trimethoprim [From Bactrim] Allergy Skin Rash Unverified 09/18/20 12:16 oxycodone HCl [From Percocet] AdvReac Severe Contraindic Unverified 09/18/20 12:16 ated oxycodone terephthalate AdvReac Severe Contraindic Unverified 09/18/20 12:16 [From Percodan] ated General MADELIN: 3 Review of Systems All systems reviewed & are unremarkable except as noted in HPI and below Constitutional Constitutional: Reports as per HPI, Denies chills and Denies fever(s) Eyes Eyes: Denies blurry vision ENT Ears, Nose, Mouth, and Throat: Denies dizziness, Denies sore throat and Denies throat swelling Cardiovascular Cardiovascular: Denies chest pain and Denies dyspnea Respiratory Respiratory: Denies cough and Denies dyspnea Gastrointestinal Gastrointestinal: Denies abdominal pain, Denies diarrhea and Denies vomiting Genitourinary Genitourinary: Denies hematuria and Denies dysuria Musculoskeletal Musculoskeletal: Denies back pain, Denies numbness and Reports other (R hip pain) Integumentary/Breasts Skin/Breast: Denies lesions and Denies rash Neurologic Neurologic: Denies dizziness, Denies localized weakness and Denies numbness Allergic/Immunologic Allergic/Immunologic: Denies throat swelling [facility] Medical History (Updated 09/18/20 @ 14:10 by Apple Enriquez DO) CAD (coronary artery disease) Chronic low back pain Chronic subdural hematoma Colon polyps Depression Diastasis recti DM type 2 (diabetes mellitus, type 2) Fatty liver GERD (gastroesophageal reflux disease) Gout H/O alcohol abuse Headaches due to 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 Hx of deep venous thrombosis Hyperlipidemia Hypertension Hypothyroidism MRSA infection Obstructive sleep apnea Pituitary abnormality Right sided weakness Urethral stricture Vitamin D deficiency Surgical History Appendectomy (06/01/16) Colonoscopy - MAC 2009-5year f/u 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 electroconvulsive therapy Extraction of cataract facial lesion removal Repair of inguinal hernia (08/05/17) right inguinal hernia repair by Dr Arroyo on 08/05/17 Repair of umbilical hernia Social History Smoking/Tobacco Use Status: Never Smoking risk assessment performed?: Yes Alcohol Intake: former Drug use: Never Substance use type: does not use Household members: spouse Housing: house Pets and animals: Yes Pets and animals: dog(s) Do you feel safe at home: Yes Do you feel safe in your relationship?: Yes Exam Const General: cooperative, healthy appearing and no acute distress [facility]: normal to inspection Face and sinus: normal facial exam Eyes General: appearance normal, both eyes and all related structures EOM: EOM intact bilaterally Neck Neck: normal visual inspection and No submandibular swelling Lymphatic: no lymphadenopathy noted Chest Chest: normal inspection of the chest and no tenderness Resp Effort & Inspection: normal respiratory effort and able to speak in complete sentences Auscultation: clear to auscultation bilaterally Cardio Rate: regular rate Rhythm: regular rhythm GI Inspection: normal to inspection Palpation: soft, not firm, not rigid and nontender Auscultation: normal bowel sounds Male General Exam: Yes normal external exam Back/Spine/Pelvis Thoracic/Lumbar Spine: thoracic and lumbar spine normal to inspection, No thoracic spinal tenderness and No lumbar spinal tenderness Pelvis: no pain with anterior-posterior compression Skin General skin exam: no rashes or lesions noted Neuro General: patient alert, patient awake and patient oriented x3 Cognition: normal cognition Speech: speech normal Motor: muscle tone normal throughout and strength 5/5 throughout Sensory Exam: no sensory deficits noted DTR's: Rt Patellar: 1+, Lt Patellar: 1+, Rt Ankle: 1+ and Lt Ankle: 1+ Extrem General: normal to inspection, full ROM, capillary refill normal, no calf tenderness bilaterally and no edema Upper/lower leg/hip images: 1. Tenderness to palpation to right lateral proximal hip. There is no surrounding edema, ecchymosis, erythema, crepitus, rash or abrasions. Other: Pain in right hip with range of motion including flexion, internal and external rotation. Limited range of motion at right hip due to pain. Right DP/PT pulses intact. Psych Appearance: grossly normal Mental Status: mental status grossly normal Speech and Movement: speech and movement normal Affect: normal affect
--- NOTE | 2020-09-18 12:45 | DI.CT_ITS ---
EXAM: CT LOWER EXTREMITY RT WO CLINICAL HISTORY: r/o fracture R hip. TECHNIQUE: Imaging Protocol: Axial computed tomography images with coronal and sagittal reformatted images were created and reviewed. CONTRAST MATERIAL: No IV contrast. No oral contrast COMPARISON: No exams were available for comparison FINDINGS: No evidence of right hip fracture. No evidence of avascular necrosis. No prominent joint effusion. Mild degenerative changes. No osseous lesions. No ipsilateral intrape lvic hematoma evident. IMPRESSION: No evidence of right hip fracture. RADIATION DOSE DELIVERED: 244.35mGy.cm Total DLP DATA REPOSITORY: All CT scans at this facility are submitted to the National Radiology Data Registry (NRDR) Dose Index Registry (DIR) with the [employer] ([employer]). RADIATION OPTIMIZATION: All CT scans at this facility use at least one of these dose optimization te chniques: automated exposure control; mA and/or kV adjustment per patient size (includes targeted exa ms where dose is matched to clinical indication); or iterative reconstruction.
[2020-09-18] MEDS: diazePAM 5 MG TAB PO (13:10)
[2020-09-18] MEDS: Ketorolac 60 MG/2 ML VIAL IM (13:10)
[2020-09-18] MEDS: HYDROcodone 10/Acetaminophen 325 TAB PO (13:19)
--- OUTSIDE RECORDS SUMMARY | 2020-09-18 13:58 | XMS_ITS ---
:1950 Author Care Team Providers Name Role Phone RIANNA Pfeiffer MARIA INES Primary Care Provider [phone] [facility] Primary Care Provider [phone] DONTAE BACON MD Neurologist [phone] CHEYENNE WIN DO OTHER [phone] Allergies Code Code System Name Reaction Severity Status Onset 619823 RxNorm Bactrim ? ? Active ? Penicillins ? ? Active ? 09282 RxNorm Percocet ? ? Active ? Medications Name Status Start Date Stop Date ? ? allopurinol 300 mg tablet Active ? Not av ailable aspirin Active ? Not available 81mg daily carvedilol 12.5 mg tablet Completed ? 2017 carvedilol 25 mg tablet Active ? Not avai lable ciprofloxacin 500 mg tablet Completed ? 11/20 clindamycin HCl 300 mg capsule Completed ? 0 12/13/2017 clotrimazole 10 mg marcella Completed ? 2017 Effexor XR Active ? Not available 75mg ER 24hr daily fluconazole 100 mg tablet Completed ? 2017 gabapentin 300 mg capsule Completed ? 2017 GaviLyte-N 420 gram oral Completed ? 018 solution glimepiride 4 mg tablet Active ? Not avai lable Glucophage Active ? Not available 1000mg BID hydroxyzine pamoate 25 mg Completed ? 2017 capsule ibuprofen Active ? Not available 600mg PRN Lantus Solostar U-100 Insulin Completed ? 100 unit/mL (3 mL) subcutaneous pen levetiracetam 500 mg tablet Completed ? 11/20 levofloxacin 750 mg tablet Completed ? 12/13 levothyroxine 50 mcg tablet Completed ? 11/20 Lipitor Active ? Not available 20mg daily lisinopril 10 mg tablet Completed ? 12/14/19 18 lisinopril 20 mg tablet Active ? Not avai lable metformin 1,000 mg tablet Completed ? 2017 Miralax Active ? Not available 1tablesppon BID Mucinex Active ? Not available 600mg ER 12HR PRN mupirocin 2 % topical ointment Completed ? 0 12/13/2017 nitrofurantoin macrocrystal 50 Active ? N ot available mg capsule nitroglycerin 0.4 mg sublingual Completed ? 12/13/2017 tablet NovoFine 30 30 gauge x 1/3 Completed ? 11/20 needle Novofine 32 32 gauge x 1/4 Completed ? 11/20 needle ondansetron 4 mg disintegrating Completed ? 12/13/2017 tablet Provigil 200 mg tablet Completed 11/07/2012 4 1 Tablet: qam - every morning quetiapine 300 mg tablet Active ? Not lilli ilable Ranitidine Active ? Not available 150mg daily rosuvastatin 20 mg tablet Completed ? 2017 sennosides-docusate sodium Active ? Not a vailable take at bedtime PRN Seroquel Active ? Not available 300mg at bedtime Synthroid Active ? Not available 50mcg daily tamsulosin 0.4 mg capsule Completed ? 2017 Topamax Active ? Not available 25mg daily topiramate 25 mg sprinkle Completed ? 2017 capsule topiramate 25 mg tablet Completed ? 12/14/19 18 topiramate 50 mg tablet Completed ? 12/14/19 18 tramadol 50 mg tablet Active ? Not availa ble venlafaxine 75 mg tablet Completed ? 018 venlafaxine ER 75 mg Completed ? 12/13/2017 capsule,extended release 24 hr Problems Name Status Onset Date Source ? Bipolar Disorder Active ? History Obstructive Sleep Apnea Syndrome Active ? History History of Methicillin Resistant Staphylococcus Active ? History Aureus Infection Procedures Date Name Performed by ? ? Appendectomy Information not avai lable ? Cataract Surgery Information not avai lable Results Lab Results None recorded. Past Encounters None recorded. Social History Tobacco Smoking Status Former Smoker Notes: 17, 1-2 cigarettes per day, quit 1979 Vaccine List None recorded. Plan of Care Reminders Provider Appointments None ? ? recorded. Lab None ? ? recorded. Referral None ? ? recorded. Procedures None ? ? recorded. Surgeries None ? ? recorded. Imaging None ? ? recorded. Vitals 11/23/2017 10:00AM New Patient 44 Height Weight BMI Blood Pressure 172.72 cm 85.64 kg 28.7 kg/m2 150/90 mm[Hg] 09/19/2014 Height Weight 179.07 cm 91.23 kg 09/19/2014 Blood Pressure 142/78 mm[Hg] 02/12/2014 Blood Pressure 120/62 mm[Hg] 02/12/2014 Height Weight 179.07 cm 90.35 kg 03/06/2013 Blood Pressure 128/70 mm[Hg] 03/06/2013 Height Weight 179.07 cm 88.45 kg 02/06/2013 Height Weight 179.07 cm 88.45 kg 02/06/2013 Blood Pressure 122/72 mm[Hg] 12/19/2012 Blood Pressure 130/82 mm[Hg] 12/19/2012 Height Weight 179.07 cm 90.72 kg 11/07/2012 Blood Pressure 122/72 mm[Hg] 11/07/2012 Height Weight 179.07 cm 91.17 kg
[2020-09-18 14:53] VITALS: BP 139/63; PULSE 98; RESP 18; TEMP 36.4; O2SAT 98
== END 2020-09-18 14:54 | disposition home or self-care (01) ==
PROVIDERS: Emergency Provider Physician Assistant; PCP Family Medicine
DX: M16.11 Unilateral primary osteoarthritis, right hip (principal); S70.01XA Contusion of right hip, initial encounter; W18.39XA Other fall on same level, initial encounter
CPT/HCPCS: 96372; 99284; 73700; 99283; J1885; J3490

== ENCOUNTER 2020-10-14 17:43 | Emergency (ER) | payer MEDICARE, OTHER, SELFPAY ==
[2020-10-14 17:54] VITALS: BP 154/82; PULSE 103; RESP 18; TEMP 36.3; O2SAT 99
--- NOTE | 2020-10-14 18:15 | DI.CT_ITS ---
EXAM: CT CHEST WO CLINICAL HISTORY: fall, eval left ribs and left shoulder. TECHNIQUE: Imaging protocol: Axial computed tomography images were obtained and coronal and sagittal reformatted images were created and reviewed. COMPARISON: CT CT THORAX CTA from 11/11/2018 FINDINGS: Tracheobronchial tree: Patent where visualized. Pulmonary parenchyma: No consolidation or dominant measurable mass. There is again seen scarring in t he delete posterior medial aspect of both lower lobes. No suspicious pulmonary nodules are seen. Mediastinum and Светлана: No dominant adenopathy or fluid collection. Pleura: No effusion or pneumothorax. Heart: The heart is not dilated. Marked coronary artery calcification and or vascular stents. No per icardial effusion. Aorta: Thoracic aorta non-dilated. Moderate atherosclerosis. Upper abdomen: Stable calcification along the wall of the gallbladder. Lymph nodes: Within normal limits. Soft tissues: Unremarkable. Bones:Sternal wires are in place. There is a nondisplaced fracture of the anterior aspect of the lef t 5th rib. There is an old T12 compression fracture deformity. IMPRESSION: 1. Nondisplaced fracture of the anterior left 5th rib. No pneumothorax. 2. No other acute pulmonary process. RADIATION DOSE DELIVERED: 596.47mGy.cm Total DLP 596.47mGy.cm Total DLP DATA REPOSITORY: All CT scans at this facility are submitted to the National Radiology Data Registry (NRDR) Dose Index Registry (DIR) with the [employer] (A[employer]). RADIATION OPTIMIZATION: All CT scans at this facility use at least one of these dose optimization te chniques: automated exposure control; mA and/or kV adjustment per patient size (includes targeted exa ms where dose is matched to clinical indication); or iterative reconstruction.
[2020-10-14] MEDS: Acetaminophen 500 MG TAB 1000 MG PO (18:23)
--- NOTE | 2020-10-14 18:42 | ED.GENADUL_ITS ---
Discharge Plan Disposition Patient Disposition: HOME Condition: Good Discharge Details Clinical Impression: Left rib fracture Primary Care Provider: Alisa Ramirez ED Provider: Christopher Lua Home Meds and New Rx's Prescriptions: New lidocaine [Lidoderm] 1 PATCH patch 1 patch Topical Q24H Qty: 4 RF: 0 Continued gabapentin 100 mg capsule 100 mg PO QAM PRNRF: 0 acetylcysteine [NAC] 600 mg capsule 600 mg PO DAILY RF: 0 cod liver oil Capsule 1 cap PO DAILY RF: 0 carboxymethylcellulose sodium [Refresh Tears] 0.5 % drops 1 drp OP 4-6XD PRNRF: 0 bisacodyl [Dulcolax (bisacodyl)] 5 mg tablet,delayed release (DR/EC) 5 mg PO DAILY PRNRF: 0 metoprolol succinate 50 mg tablet extended release 24 hr 50 mg PO DAILY RF: 0 citalopram 20 mg tablet 10 mg PO QHS RF: 0 diclofenac sodium [Voltaren] 1 % gel 2 g topical QID RF: 0 ranolazine [Ranexa] 500 mg tablet extended release 12 hr 500 mg PO BID RF: 0 tramadol 50 mg tablet 50 mg PO Q6H PRNRF: 0 polyethylene glycol 3350 [Miralax] 17 GM powder in packet 17 g PO DAILY PRNQty: 255 RF: 0 nitroglycerin [Nitrostat] 0.4 MG tablet, sublingual 0.4 mg Sublingual as directed RF: 0 docusate sodium [Dulcolax Stool Softener (dss)] 100 MG capsule 100 mg PO DAILY PRNRF: 0 Levemir FlexTouch U-100 Insuln 100 UNIT/1 ML insulin pen 100 units subcut BID RF: 0 riboflavin (vitamin B2) [Vitamin B-2] 100 mg tablet 400 mg PO DAILY RF: 0 topiramate [Topamax] 25 mg capsule, sprinkle 75 mg PO HS RF: 0 levothyroxine 50 MCG tablet 50 mcg PO DAILY@0730 RF: 0 allopurinol 300 MG tablet 300 mg PO DAILY RF: 0 quetiapine [Seroquel] 300 MG tablet 300 mg PO HS RF: 0 rosuvastatin [Crestor] 20 MG tablet 20 mg PO HS RF: 0 metformin [Glucophage] 1,000 mg Tablet 1,000 mg PO BID RF: 0 lisinopril 20 mg Tablet 30 mg PO DAILY RF: 0 potassium chloride 10 mEq Tablet Extended Release 10 meq PO DAILY RF: 0 isosorbide mononitrate 60 mg tablet extended release 24 hr 90 mg PO DAILY RF: 0 methocarbamol 500 mg tablet 500 mg PO Q6H PRN (Reason: muscle spasm) Qty: 14 RF: 0 hydrocodone-acetaminophen 5-325 mg tablet 1 tab PO Q6H PRN (Reason: pain) Qty: 10 RF: 0 hydrocodone-acetaminophen 5-325 mg tablet RF: 0 acetaminophen [Tylenol] 325 MG tablet 2 tab PO Q4H PRN PRNRF: 0 gabapentin 300 mg capsule 300 mg PO HS RF: 0 cholecalciferol (vitamin D3) [Vitamin D3] 1,000 unit Tablet 1,000 unit PO DAILY RF: 0 pantoprazole [Protonix] 40 mg tablet,delayed release (DR/EC) 40 mg PO DAILY Qty: 30 RF: 0 magnesium 250 mg Tablet 400 mg PO DAILY RF: 0 Victoza 2-Thanh 0.6 mg/0.1 mL (18 mg/3 mL) pen injector 1.8 mg SUBCUT HS RF: 0 Discharge Instructions Instructions: Rib Fracture (ED) Additional Instructions: At this time your CT scan shows evidence of a rib fracture of your fifth left rib. Does not show any other abnormalities per the radiologist. Please use the Lidoderm patches as directed. The prescription has been sent to your [facility] pharmacy. If you do not have tolerability with your Lidoderm patches after 24 to 48 hours you may return for a potential rib block to help numb it more so. If you notice any worsening of your symptoms, or any new symptoms such as vomiting, diarrhea, fever, chills, shortness of breath, chest pain, numbness, weakness, or fainting , please return immediately to the emergency department for reevaluation. Please follow up with your primary care provider as soon as possible for reassessment and reevaluation. As always, it was a pleasure participating in your medical care today. Referrals: Alisa Ramirez MD [Primary Care Provider] - Medical Decision Making 70-year-old male with a past medical history of coronary artery disease, type 2 diabetes, GERD, gout, high cholesterol, hypertension, hypothyroidism, presents today for evaluation of left chest pain. Patient states that yesterday at 1 AM he had fallen out of his bed and hit his left chest and left shoulder on the filing cabinet that was next to him. Throughout the day he has had continued pain in that area. He has some mild irritation over his left thigh, but no other pain anywhere else. He denies any head or neck pain. Pain is mainly in his left chest anteriorly when he breathes in the proximal component of his left shoulder. He denies fever or chills. He denies headache. He does admit to chronic weakness in his lower extremities and does need a walker and some assistance to ambulate. Patient is not on any blood thinners. No other complaints at this time. No other modifying factors Exam demonstrates left proximal humeral tenderness, left sided chest wall tenderness. Minimal tenderness over the left thigh, but he demonstrates good strength and movement to the lower extremities. No significant hip tenderness. Patient does not feel like he broke anything in his lower extremities. Exam is not consistent with fracture in the lower extremities. However of concern as is his chest pain. Concern for potential rib fractures and less likely pneumothorax. We will get a CT scan to evaluate for these pathologies, treat with Tylenol and Toradol, monitor closely and reassess. 8:[address] scan results have returned per radiology there is evidence of a nondisplaced anterior left fifth rib fracture. No other acute process per radiology. Patient's pain is notably improved with Toradol and Lidoderm patch. We did get the patient up and he was able to ambulate with a walker. No signs of any other significant acute traumatic process requiring imaging at this time clinically. Patient will be discharged home. I did contact his Brittany and discussed the case with her. Discussed the importance of deep breathing, and the potential for return for block if his symptoms are not managed with the Lidoderm patch and NSAIDs. Discussed red flags which to return. I have extensively reviewed the treatment plan and discharge instructions with the patient. I have addressed all patient concerns at this time. The patient was made aware of what symptoms to monitor for that would warrant a return to the emergency department. Discussed the plan with the patient, they demonstrate verbal understanding and agreement with our assessment and plan at this time. The documentation in this chart was dictated using [employer] dictation software. Please excuse any dictation errors. FINDINGS: Lungs: Moderate emphysematous disease. There is no lung parenchymal contusion or laceration. Lung nodules: No suspicious pulmonary nodule. Pleural spaces: No pleural fluid. No pneumothorax.. Heart: No pericardial fluid. Mediastinal space: No pneumomediastinum. No hemomediastinum. Aorta: No aortic aneurysm. Lymph nodes: No mediastinal, hilar or axillary adenopathy. Gallbladder and bile ducts: There is slight increased density in the gallbladder which may be secondary to sludge. There is a punctate calcification in the anterior wall. Intraperitoneal space: No free air in the visualized upper abdomen. Bones/joints: There is a nondisplaced fracture involving the anterior aspect of the left 5th rib. There is an old compression deformity of T12. There is degenerative disc disease with vacuum discs in the lower thoracic spine. Prior median sternotomy. Soft tissues: No significant subcutaneous bruising. IMPRESSION: 1. Nondisplaced anterior left 5th rib fracture. 2. No acute intrathoracic injury. Thank you for allowing us to participate in the care of your patient. Dictated and Authenticated by: Dilshad Contreras MD 10/14/2020 7:24 PM Eastern Time ([place] & [place]) HPI General Date/Time Provider Initiated Documentation: 10/14/20 18:11 . HPI Narrative: 70-year-old male with a past medical history of coronary artery disease, type 2 diabetes, GERD, gout, high cholesterol, hypertension, hypothyroidism, presents today for evaluation of left chest pain. Patient states that yesterday at 1 AM he had fallen out of his bed and hit his left chest and left shoulder on the filing cabinet that was next to him. Throughout the day he has had continued pain in that area. He has some mild irritation over his left thigh, but no other pain anywhere else. He denies any head or neck pain. Pain is mainly in his left chest anteriorly when he breathes in the proximal component of his left shoulder. He denies fever or chills. He denies headache. He does admit to chronic weakness in his lower extremities and does need a walker and some assistance to ambulate. Patient is not on any blood thinners. No other complaints at this time. No other modifying factors Related Data Home Medications Medication Instructions Recorded Confirmed allopurinol 300 mg PO DAILY 01/24/13 10/14/20 levothyroxine 50 mcg PO DAILY@0730 01/24/13 10/14/20 quetiapine [Seroquel] 300 mg PO HS 01/24/13 10/14/20 rosuvastatin [Crestor] 20 mg PO HS 03/22/17 10/14/20 docusate sodium [Dulcolax Stool 100 mg PO DAILY PRN 04/08/17 09/18/20 Softener (dss)] nitroglycerin [Nitrostat] 0.4 mg SUBLINGUAL as directed 04/08/17 10/14/20 polyethylene glycol 3350 [Miralax] 17 g PO DAILY PRN #255 gm 04/08/17 10/14/20 acetaminophen [Tylenol] 2 tab PO Q4H PRN PRN tab 05/24/17 10/14/20 Levemir FlexTouch U-100 Insuln 100 units SUBCUT BID 08/04/17 10/14/20 gabapentin 300 mg capsule 300 mg PO HS cap 07/27/18 10/14/20 cholecalciferol (vitamin D3) 1,000 unit PO DAILY 11/11/18 10/14/20 [Vitamin D3] gabapentin 100 mg capsule 100 mg PO QAM PRN 12/12/18 09/18/20 metformin [Glucophage] 1,000 mg PO BID 03/08/19 10/14/20 riboflavin (vitamin B2) 100 mg 400 mg PO DAILY tab 03/28/19 10/14/20 tablet topiramate 25 mg sprinkle capsule 75 mg PO HS cap 03/28/19 10/14/20 bisacodyl 5 mg tablet,delayed 5 mg PO DAILY PRN tab 04/17/19 10/14/20 release carboxymethylcellulose sodium 0.5 1 drp OP 4-6XD PRN 04/17/19 10/14/20 % eye drops cod liver oil 1 cap PO DAILY 04/17/19 10/14/20 pantoprazole [Protonix] 40 mg PO DAILY #30 tab 04/25/19 10/14/20 metoprolol succinate 50 mg 50 mg PO DAILY 05/10/19 10/14/20 tablet,extended release 24 hr acetylcysteine 600 mg capsule 600 mg PO DAILY cap 05/16/19 09/18/20 citalopram 20 mg tablet 10 mg PO QHS tab 05/16/19 10/14/20 lisinopril 30 mg PO DAILY 05/24/19 10/14/20 magnesium 400 mg PO DAILY 07/07/19 10/14/20 diclofenac sodium 1 % topical gel 2 g TOPICAL QID 04/30/20 09/18/20 ranolazine 500 mg tablet,extended 500 mg PO BID 04/30/20 10/14/20 release,12 hr tramadol 50 mg tablet 50 mg PO Q6H PRN 04/30/20 10/14/20 Victoza 2-Thanh 1.8 mg SUBCUT HS 06/19/20 10/14/20 hydrocodone-acetaminophen 1 tab PO Q6H PRN #10 tab 09/18/20 10/14/20 isosorbide mononitrate 90 mg PO DAILY 09/18/20 09/18/20 methocarbamol 500 mg PO Q6H PRN #14 tab 09/18/20 10/14/20 potassium chloride 10 meq PO DAILY 09/18/20 10/14/20 hydrocodone-acetaminophen 10/14/20 lidocaine [Lidoderm] 1 patch TOPICAL Q24H #4 ea 10/14/20 Previous Rx's Medication Instructions Recorded acetaminophen [Tylenol] 2 tab PO Q4H PRN PRN tab 05/24/17 pantoprazole [Protonix] 40 mg PO DAILY #30 tab 04/25/19 hydrocodone-acetaminophen 1 tab PO Q6H PRN #10 tab 09/18/20 methocarbamol 500 mg PO Q6H PRN #14 tab 09/18/20 lidocaine [Lidoderm] 1 patch TOPICAL Q24H #4 ea 10/14/20 Allergies Allergy/AdvReac Type Severity Reaction Status Date / Time amoxicillin Allergy Severe breathing Unverified 10/14/20 18:46 difficuty and vomiting Penicillins Allergy Intermediate Skin Rash Unverified 10/14/20 18:46 sulfamethoxazole Allergy Intermediate Skin Rash Unverified 10/14/20 18:46 [From Bactrim] trimethoprim [From Bactrim] Allergy Intermediate Skin Rash Unverified 10/14/20 18:46 oxycodone HCl [From Percocet] AdvReac Severe Contraindic Unverified 10/14/20 18:46 ated oxycodone terephthalate AdvReac Severe Contraindic Unverified 10/14/20 18:46 [From Percodan] ated General Stated Complaint: Trauma MADELIN: 2 Review of Systems All systems reviewed & are unremarkable except as noted in HPI and below PFSH Medical History (Updated 10/14/20 @ 20:00 by Christopher Lua DO) CAD (coronary artery disease) Chronic low back pain Chronic subdural hematoma Colon polyps Depression Diastasis recti DM type 2 (diabetes mellitus, type 2) Fatty liver GERD (gastroesophageal reflux disease) Gout H/O alcohol abuse Headaches due to 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 Hx of deep venous thrombosis Hyperlipidemia Hypertension Hypothyroidism MRSA infection Obstructive sleep apnea Pituitary abnormality Right sided weakness Urethral stricture Vitamin D deficiency Surgical History Appendectomy (06/01/16) Colonoscopy - MAC 2009-5year f/u 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 electroconvulsive therapy Extraction of cataract facial lesion removal Repair of inguinal hernia (08/05/17) right inguinal hernia repair by Dr Arroyo on 08/05/17 Repair of umbilical hernia Social History Smoking/Tobacco Use Status: Never Smoking risk assessment performed?: Yes Alcohol Intake: former Drug use: Never Substance use type: does not use Household members: spouse Housing: house Pets and animals: Yes Pets and animals: dog(s) Do you feel safe at home: Yes Do you feel safe in your relationship?: Yes Exam Narrative Exam Narrative: 1.Const: Well-nourished, Well-developed, appearing stated age 2.Eyes: PERRL, no conjunctival injection, and symmetrical lids. 3.ENT: Atraumatic external nose and ears. Moist MM. Neck: Symmetric, trachea midline, No thyromegaly. There is no evidence of raccoon eyes, nails sign, CSF rhinorrhea, mastoid tenderness, cranial crepitus, hemotympanum, exophthalmos, or hyphema. Patient demonstrates intact dentition with no signs of tooth avulsion or fracture, no signs of jaw deformity, no evidence of a LeFort's fracture, with an intact palate, nose and orbital region. There is no evidence of a nasal se ptal hematoma. No proptosis. Jaw closes symmetrically. Airway is clear. 4.CVS: +S1/S2, No murmurs or gallops. Peripheral pulses 2+ and equal in all extremities. Brisk capillary refill in all extremities. 5.RESP: Clear to auscultation bilaterally, good breath sounds throughout. Patient's left anterior chest wall demonstrates tenderness over the left anterior component left lateral component and left proximal shoulder. He is able to move his shoulder around, but does have some moderate pain with this at the humeral head. No right sided chest pain. No midline cervical thoracic or lumbar spine tenderness peer 6.GI: Soft, Nontender/Nondistended, No hepatosplenomegaly. No guarding or rebound. 7.MSK: Normocephalic, Extremities w/o deformity. No cyanosis or clubbing, tenderness is present over the left proximal humerus. Range of motion is intact. Patient is able to flex and extend his hips bilaterally, no significant pain with logroll. Mild tenderness over the lateral thigh but no clinical evidence of fracture. Patient demonstrates normal strength in the lower extremities. No pain or tenderness over the greater trochanters bilaterally. 8.Skin: Warm, Dry. No rashes or lesions. 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 Sensation grossly intact, no focal neurologic deficits. 10.Psych: (AAO) x3. Appropriate mood and affect Course Vital Signs Vital signs: Vital Signs Temperature 36.3 C L 10/14/20 17:54 Pulse 103 H 10/14/20 17:54 Respiratory Rate 18 10/14/20 17:54 Blood Pressure 154/82 H 10/14/20 17:54 Pulse Oximetry 99 10/14/20 17:54 Temperature 36.3 C L 10/14/20 17:54 Temperature Source Temporal Artery Scan 10/14/20 17:54 Pulse 103 H 10/14/20 17:54 Respiratory Rate 18 10/14/20 17:54 Respiratory Effort 10/14/20 18:20 Respiratory Depth Normal 10/14/20 18:20 Respiratory Pattern Normal 10/14/20 18:20 Blood Pressure 154/82 H 10/14/20 17:54 Blood Pressure Position Sitting 10/14/20 17:54 Pulse Oximetry 99 10/14/20 17:54 Pain Level 10 10/14/20 17:54
[2020-10-14] MEDS: Ketorolac 30 MG/ML VIAL IM (18:46)
--- NOTE | 2020-10-14 19:24 | DI.VRAD_ITS ---
PROCEDURE INFORMATION: Exam: CT Chest Without Contrast; Diagnostic Exam date and time: 10/14/2020 6:16 PM Age: 70 years old Clinical indication: Injury or trauma; Blunt trauma (contusions or hematomas); Prior surgery; Patient HX: Fall, eval left ribs and left shoulder TECHNIQUE: Imaging protocol: Diagnostic computed tomography of the chest without contrast. 3D rendering (Not supervised by radiologist): MIP and/or 3D reconstructed images were created by the technologist. Total images: 1852 COMPARISON: CT CHEST/ABD/PEL W 06/19/2020 6:56 PM FINDINGS: Lungs: Moderate emphysematous disease. There is no lung parenchymal contusion or laceration. Lung nodules: No suspicious pulmonary nodule. Pleural spaces: No pleural fluid. No pneumothorax.. Heart: No pericardial fluid. Mediastinal space: No pneumomediastinum. No hemomediastinum. Aorta: No aortic aneurysm. Lymph nodes: No mediastinal, hilar or axillary adenopathy. Gallbladder and bile ducts: There is slight increased density in the gallbladder which may be secondary to sludge. There is a punctate calcification in the anterior wall. Intraperitoneal space: No free air in the visualized upper abdomen. Bones/joints: There is a nondisplaced fracture involving the anterior aspect of the left 5th rib. There is an old compression deformity of T12. There is degenerative disc disease with vacuum discs in the lower thoracic spine. Prior median sternotomy. Soft tissues: No significant subcutaneous bruising. IMPRESSION: 1. Nondisplaced anterior left 5th rib fracture. 2. No acute intrathoracic injury. Dictated and Authenticated by: Dilshad Contreras MD. Ordering:CHRISTINE White MD
[2020-10-14 19:29] VITALS: BP 146/81; PULSE 86; RESP 16; O2SAT 97
[2020-10-14] MEDS: Lidocaine 5% Patch 1 PATCH TP (19:55)
== END 2020-10-14 20:10 | disposition home or self-care (01) ==
PROVIDERS: Emergency Provider Student in an Organized Health Care Education/Training Program; PCP Family Medicine
DX: S22.32XA Fracture of one rib, left side, initial encounter for closed fracture (principal); M25.512 Pain in left shoulder; W06.XXXA Fall from bed, initial encounter; W22.09XA Striking against other stationary object, initial encounter
CPT/HCPCS: 71250; 96372; 99284; J1885

== ENCOUNTER 2020-10-16 12:13 | Emergency (ER) | payer MEDICARE, OTHER, SELFPAY ==
[2020-10-16] VITALS (7 sets, daily range): BP systolic 161–176; BP diastolic 84–99; PULSE 78–87; RESP 18–22; TEMP 36.7; O2SAT 94–100
--- NOTE | 2020-10-16 12:15 | DI.RAD_ITS ---
EXAM: XR RIBS LT W PA LAT CHEST CLINICAL HISTORY: Left 5th rib fracture, increased pain TECHNIQUE: 2D digital imaging was performed. COMPARISON: CR XR PORTABLE CHEST AP from 05/24/[address] CHEST/ABD/PEL W from 06/19/2020 FINDINGS: Subtle cortical irregularity on the anterolateral aspect of the left 5th rib noted. This may represe nt a fracture, possibly subacute. No lung contusion or pneumothorax. There is no pleural effusion evident. Sternotomy wires are noted. Heart size upper normal. Previous CABG. Lungs are clear. No pneumothorax. T12 compression fracture is noted. This was evident on CT scan 06/19/2020 IMPRESSION: 1. Possible subacute fracture left 5th rib. No acute pulmonary findings. No pneumothorax. No pleur al effusion 2. Sternotomy wires. Heart size normal. No pulmonary edema. 3. T12 compression fracture noted which is not new. This was evident on CT scan 06/19/2020 DATA REPOSITORY: RADIATION DOSE DELIVERED:
--- NOTE | 2020-10-16 12:31 | ED.GENADUL_ITS ---
Discharge Plan Disposition Patient Disposition: HOME Condition: Stable Discharge Details Clinical Impression: Rib pain on left side Primary Care Provider: Alisa Ramirez ED Provider: Hodan Garcia Home Meds and New Rx's Prescriptions: Continued gabapentin 100 mg capsule 100 mg PO QAM PRNRF: 0 acetylcysteine [NAC] 600 mg capsule 600 mg PO DAILY RF: 0 cod liver oil Capsule 1 cap PO DAILY RF: 0 carboxymethylcellulose sodium [Refresh Tears] 0.5 % drops 1 drp OP 4-6XD PRNRF: 0 bisacodyl [Dulcolax (bisacodyl)] 5 mg tablet,delayed release (DR/EC) 5 mg PO DAILY PRNRF: 0 metoprolol succinate 50 mg tablet extended release 24 hr 50 mg PO DAILY RF: 0 citalopram 20 mg tablet 10 mg PO QHS RF: 0 diclofenac sodium [Voltaren] 1 % gel 2 g topical QID RF: 0 ranolazine [Ranexa] 500 mg tablet extended release 12 hr 500 mg PO BID RF: 0 tramadol 50 mg tablet 50 mg PO Q6H PRNRF: 0 polyethylene glycol 3350 [Miralax] 17 GM powder in packet 17 g PO DAILY PRNQty: 255 RF: 0 nitroglycerin [Nitrostat] 0.4 MG tablet, sublingual 0.4 mg Sublingual as directed RF: 0 docusate sodium [Dulcolax Stool Softener (dss)] 100 MG capsule 100 mg PO DAILY PRNRF: 0 Levemir FlexTouch U-100 Insuln 100 UNIT/1 ML insulin pen 100 units subcut BID RF: 0 riboflavin (vitamin B2) [Vitamin B-2] 100 mg tablet 400 mg PO DAILY RF: 0 topiramate [Topamax] 25 mg capsule, sprinkle 75 mg PO HS RF: 0 levothyroxine 50 MCG tablet 50 mcg PO DAILY@0730 RF: 0 allopurinol 300 MG tablet 300 mg PO DAILY RF: 0 quetiapine [Seroquel] 300 MG tablet 300 mg PO HS RF: 0 rosuvastatin [Crestor] 20 MG tablet 20 mg PO HS RF: 0 metformin [Glucophage] 1,000 mg Tablet 1,000 mg PO BID RF: 0 lisinopril 20 mg Tablet 30 mg PO DAILY RF: 0 potassium chloride 10 mEq Tablet Extended Release 10 meq PO DAILY RF: 0 isosorbide mononitrate 60 mg tablet extended release 24 hr 90 mg PO DAILY RF: 0 methocarbamol 500 mg tablet 500 mg PO Q6H PRN (Reason: muscle spasm) Qty: 14 RF: 0 hydrocodone-acetaminophen 5-325 mg tablet 1 tab PO Q6H PRN (Reason: pain) Qty: 10 RF: 0 hydrocodone-acetaminophen 5-325 mg tablet RF: 0 lidocaine [Lidoderm] 1 PATCH patch 1 patch Topical Q24H Qty: 4 RF: 0 acetaminophen [Tylenol] 325 MG tablet 2 tab PO Q4H PRN PRNRF: 0 gabapentin 300 mg capsule 300 mg PO HS RF: 0 cholecalciferol (vitamin D3) [Vitamin D3] 1,000 unit Tablet 1,000 unit PO DAILY RF: 0 pantoprazole [Protonix] 40 mg tablet,delayed release (DR/EC) 40 mg PO DAILY Qty: 30 RF: 0 magnesium 250 mg Tablet 400 mg PO DAILY RF: 0 Victoza 2-Thanh 0.6 mg/0.1 mL (18 mg/3 mL) pen injector 1.8 mg SUBCUT HS RF: 0 Discharge Instructions Instructions: Chest Wall Pain (ED) Additional Instructions: Continue using lidocaine patches and pain meds as directed. Follow up with primary care provider in 3-5 days. Return to ED sooner if any worsening shortness of breath, fever or concerns. Increase oral fluids. Referrals: Alisa Ramirez MD [Primary Care Provider] - Medical Decision Making 70-year-old male presents to the ER chief complaint of left-sided rib pain. He was seen here approximately 48 hours ago after a fall out of bed was diagnosed with a nondisc left fifth anterior rib fracture. He was sent home with lidocaine patches which she has in place upon arrival. He reports increased pain, difficulty sleeping due to the pain and coughing when lying down. He denies any productive cough no fever no increased shortness of breath. He was told to return in 24 to 48 hours for possible rib block. He has been taking Tylenol at home did not have any this morning. X-ray with left rib series ordered to rule out pneumonia versus pneumo. EXAM: XR RIBS LT W PA LAT CHEST CLINICAL HISTORY: Left 5th rib fracture, increased pain TECHNIQUE: 2D digital imaging was performed. COMPARISON: CR XR PORTABLE CHEST AP from 05/24/[address] CHEST/ABD/PEL W from 06/19/2020 FINDINGS: Subtle cortical irregularity on the anterolateral aspect of the left 5th rib noted. This may represent a fracture, possibly subacute. No lung contusion or pneumothorax. There is no pleural effusion evident. Sternotomy wires are noted. Heart size upper normal. Previous CABG. Lungs are clear. No pneumothorax. T12 compression fracture is noted. This was evident on CT scan 06/19/2020 IMPRESSION: 1. Possible subacute fracture left 5th rib. No acute pulmonary findings. No pneumothorax. No pleural effusion 2. Sternotomy wires. Heart size normal. No pulmonary edema. 3. T12 compression fracture noted which is not new. This was evident on CT scan 06/19/2020 1308: Anesthesia paged for possible rib block. 1312: Spoke with anesthesia regarding request for rib block they agreed to come to the procedure but currently looks calm for approximately 2 hours. I did discuss this with patient and his family verbalized understanding and agree to wait. 1441: Anesthesia here at bedside for patient eval. 1509: Anesthesia done with procedure, will observe patient for approximately 15- 20 minutes and then plan for discharge. 1538: Patient re-evaluation: Patient states that he is having some relief status post procedure. Plan is for discharge. Discussed strict return instructions and home care, verbalized understanding HPI General Mode of arrival: ambulatory . Date/Time Provider Initiated Documentation: 10/16/20 12:14 . Limitations to Documentation: no limitations . Information obtained by: patient and family . HPI Narrative: 70-year-old male presents to the ER chief complaint of left-sided rib pain. He was seen here approximately 48 hours ago after a fall out of bed was diagnosed with a nondisc left fifth anterior rib fracture. He was sent home with lidocaine patches which she has in place upon arrival. He reports increased pain, difficulty sleeping due to the pain and coughing when lying down. He denies any productive cough no fever no increased shortness of breath. He was told to return in 24 to 48 hours for possible rib block. He has been taking Tylenol at home did not have any this morning. Related Data Home Medications Medication Instructions Recorded Confirmed allopurinol 300 mg PO DAILY 01/24/13 10/14/20 levothyroxine 50 mcg PO DAILY@0730 01/24/13 10/14/20 quetiapine [Seroquel] 300 mg PO HS 01/24/13 10/14/20 rosuvastatin [Crestor] 20 mg PO HS 03/22/17 10/14/20 docusate sodium [Dulcolax Stool 100 mg PO DAILY PRN 04/08/17 09/18/20 Softener (dss)] nitroglycerin [Nitrostat] 0.4 mg SUBLINGUAL as directed 04/08/17 10/14/20 polyethylene glycol 3350 [Miralax] 17 g PO DAILY PRN #255 gm 04/08/17 10/14/20 acetaminophen [Tylenol] 2 tab PO Q4H PRN PRN tab 05/24/17 10/14/20 Levemir FlexTouch U-100 Insuln 100 units SUBCUT BID 08/04/17 10/14/20 gabapentin 300 mg capsule 300 mg PO HS cap 07/27/18 10/14/20 cholecalciferol (vitamin D3) 1,000 unit PO DAILY 11/11/18 10/14/20 [Vitamin D3] gabapentin 100 mg capsule 100 mg PO QAM PRN 12/12/18 09/18/20 metformin [Glucophage] 1,000 mg PO BID 03/08/19 10/14/20 riboflavin (vitamin B2) 100 mg 400 mg PO DAILY tab 03/28/19 10/14/20 tablet topiramate 25 mg sprinkle capsule 75 mg PO HS cap 03/28/19 10/14/20 bisacodyl 5 mg tablet,delayed 5 mg PO DAILY PRN tab 04/17/19 10/14/20 release carboxymethylcellulose sodium 0.5 1 drp OP 4-6XD PRN 04/17/19 10/14/20 % eye drops cod liver oil 1 cap PO DAILY 04/17/19 10/14/20 pantoprazole [Protonix] 40 mg PO DAILY #30 tab 04/25/19 10/14/20 metoprolol succinate 50 mg 50 mg PO DAILY 05/10/19 10/14/20 tablet,extended release 24 hr acetylcysteine 600 mg capsule 600 mg PO DAILY cap 05/16/19 09/18/20 citalopram 20 mg tablet 10 mg PO QHS tab 05/16/19 10/14/20 lisinopril 30 mg PO DAILY 05/24/19 10/14/20 magnesium 400 mg PO DAILY 07/07/19 10/14/20 diclofenac sodium 1 % topical gel 2 g TOPICAL QID 04/30/20 09/18/20 ranolazine 500 mg tablet,extended 500 mg PO BID 04/30/20 10/14/20 release,12 hr tramadol 50 mg tablet 50 mg PO Q6H PRN 04/30/20 10/14/20 Victoza 2-Thanh 1.8 mg SUBCUT HS 06/19/20 10/14/20 hydrocodone-acetaminophen 1 tab PO Q6H PRN #10 tab 09/18/20 10/14/20 isosorbide mononitrate 90 mg PO DAILY 09/18/20 09/18/20 methocarbamol 500 mg PO Q6H PRN #14 tab 09/18/20 10/14/20 potassium chloride 10 meq PO DAILY 09/18/20 10/14/20 hydrocodone-acetaminophen 10/14/20 lidocaine [Lidoderm] 1 patch TOPICAL Q24H #4 ea 10/14/20 Previous Rx's Medication Instructions Recorded acetaminophen [Tylenol] 2 tab PO Q4H PRN PRN tab 05/24/17 pantoprazole [Protonix] 40 mg PO DAILY #30 tab 04/25/19 hydrocodone-acetaminophen 1 tab PO Q6H PRN #10 tab 09/18/20 methocarbamol 500 mg PO Q6H PRN #14 tab 09/18/20 lidocaine [Lidoderm] 1 patch TOPICAL Q24H #4 ea 10/14/20 Allergies Allergy/AdvReac Type Severity Reaction Status Date / Time amoxicillin Allergy Severe breathing Unverified 10/16/20 12:19 difficuty and vomiting Penicillins Allergy Intermediate Skin Rash Unverified 10/16/20 12:19 sulfamethoxazole Allergy Intermediate Skin Rash Unverified 10/16/20 12:19 [From Bactrim] trimethoprim [From Bactrim] Allergy Intermediate Skin Rash Unverified 10/16/20 12:19 oxycodone HCl [From Percocet] AdvReac Severe Contraindic Unverified 10/16/20 12:19 ated oxycodone terephthalate AdvReac Severe Contraindic Unverified 10/16/20 12:19 [From Percodan] ated General Stated Complaint: Chest/Rib MADELIN: 3 Review of Systems All systems reviewed & are unremarkable except as noted in HPI and below Constitutional Constitutional: Denies snoring Cardiovascular Cardiovascular: Denies dyspnea Respiratory Respiratory: Reports as per HPI, Reports cough, Reports pain on inspiration (Left anterior rib), Denies dyspnea, Denies snoring, Denies stridor and Denies wheezing Allergic/Immunologic Allergic/Immunologic: Denies wheezing FOR[facility]LY [facility] Medical History (Updated 10/16/20 @ 15:41 by Hodan Garcia) CAD (coronary artery disease) Chronic low back pain Chronic subdural hematoma Colon polyps Depression Diastasis recti DM type 2 (diabetes mellitus, type 2) Fatty liver GERD (gastroesophageal reflux disease) Gout H/O alcohol abuse Headaches due to 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 Hx of deep venous thrombosis Hyperlipidemia Hypertension Hypothyroidism MRSA infection Obstructive sleep apnea Pituitary abnormality Right sided weakness Urethral stricture Vitamin D deficiency Surgical History Appendectomy (06/01/16) Colonoscopy - MAC 2010-5year f/u 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 electroconvulsive therapy Extraction of cataract facial lesion removal Repair of inguinal hernia (08/05/17) right inguinal hernia repair by Dr Arroyo on 08/05/17 Repair of umbilical hernia Social History Smoking/Tobacco Use Status: Never Smoking risk assessment performed?: Yes Alcohol Intake: former Drug use: Never Substance use type: does not use Household members: spouse Housing: house Pets and animals: Yes Pets and animals: dog(s) Do you feel safe at home: Yes Do you feel safe in your relationship?: Yes Exam Narrative Exam Narrative: Constitutional: Alert and oriented x3. Appears stated age. Normal body habitus. Head: Normocephalic, no trauma. Eyes: Pupils PERRLA, Red reflex noted, EOM's intact. Eyelids symmetrical without lesions, discharge, or swelling. Chest: RRR, Normal S1, S2, distal pulses intact. Resp: Lungs clear to auscultation bilaterally, no wheezes, rales, or rhonchi. Musculoskeletal: Normal gait, 5/5 strength to all four extremities. Skin: No suspicious rashes or lesions. Capillary refill less than 2 sec. Neurologic: Cranial nerves II-XII intact. Alert and oriented x 3. Hematologic/Lymphatic: No ecchymosis, no lymphadenopathy. Course Vital Signs Vital signs: Vital Signs Temperature 36.7 C 10/16/20 12:18 Pulse 87 10/16/20 12:18 Respiratory Rate 22 10/16/20 12:18 Blood Pressure 161/84 H 10/16/20 12:18 Pulse Oximetry 100 10/16/20 12:18 Temperature 36.7 C 10/16/20 12:18 Temperature Source Skin 10/16/20 12:18 Pulse 87 10/16/20 12:18 Respiratory Rate 22 10/16/20 12:18 Respiratory Effort Non-Labored 10/16/20 12:25 Respiratory Depth Normal 10/16/20 12:25 Respiratory Pattern Normal 10/16/20 12:25 Blood Pressure 161/84 H 10/16/20 12:18 Blood Pressure Position Sitting 10/16/20 12:18 Pulse Oximetry 100 10/16/20 12:18 Oxygen Delivery Method Room Air 10/16/20 12:18 Oxygen Flow Rate 0 10/16/20 12:18 Pain Level 10 10/16/20 12:25
--- NOTE | 2020-10-16 15:27 | W.ANESNERVE ---
Nerve Block Single Injection Procedure Date and Time Date Performed: 10/16/20 Procedure Start: 15:15 Location Where Procedure Performed Procedure Location: Emergency Department Reason Performed: Acute Pain Management Pain Diagnosis: Other (Pt fell earlier in the week fracturing T5 rib. Presents to the ED with persistent rib pain which has lead to difficultly and signifigant pain with inspiration/coughing-deep breathing) Requesting Provider: Hodan Garcia Timeout Performed Timeout Performed: Yes Monitoring Used ECG, Blood Pressure and SpO2 Sterility Sterility: Hand Hygiene, Surgical Cap, Surgical Mask, Sterile Gloves, Chlorhexidine and Other (sterlie probe cover. ) Sedation Given During Procedure Sedation Given (Indicate Dose Given): No Sedation given Patient Mental Status Patient Mental Status: Awake Nerve Block 1st Nerve Block: Laterality: Left Block Type: Erector Spinae (Upper) Needle / Catheter Used: 100mm SonoPlex II Local Anesthetic Bolus (Indicate Dose Given): Bupivacaine 0.5% (20 mL) and Exparel (10 mL) Additives (Indicate Dose Given): None Ultrasound: Sterile probe cover and gel used Ultrasound Image Saved?: Yes Nerve Stimulator: Not Used Paresthesia: None Procedure Tolerated: No Complications and Patient tolerated well Procedure Outcome: Successful Performed By: Davon Fontana Other (not listed above): Curry portillo Supervised By: Davon Fontana
== END 2020-10-16 15:54 | disposition home or self-care (01) ==
PROVIDERS: Emergency Provider Registered Nurse Emergency; PCP Family Medicine
DX: S22.32XD Fracture of one rib, left side, subsequent encounter for fracture with routine healing (principal); W06.XXXD Fall from bed, subsequent encounter
CPT/HCPCS: 64450; 76942; 96372; 99284; 71046; 71100; 99283

== ENCOUNTER 2020-11-07 18:19 | Emergency (ER) | payer MEDICARE, OTHER, SELFPAY ==
[2020-11-07 18:35] VITALS: BP 139/90; PULSE 92; RESP 16; TEMP 37.3; O2SAT 99
--- NOTE | 2020-11-07 19:30 | RT.EKG_ITS ---
APPROVED REPORT Exam: Resting ECG Reason for Exam: chest pain Patient Location: E HR:97 bpm ECG Measurements Heart Rate 97 AXIS OR 121 P 43 QRSd 84 QRS 15 QT 351 T 210 QTc 447 Conclusion Sinus rhythm...normal P axis, V-rate 60- 99. No STEMI. I have reviewed and interpreted ECG and agree with software generated interpretation.
--- NOTE | 2020-11-07 19:34 | ED.GENADUL_ITS ---
Discharge Plan Disposition Patient Disposition: HOME Condition: Stable Discharge Details Clinical Impression: Chest wall muscle strain, History of rib fracture Primary Care Provider: Alisa Ramirez ED Provider: Apple Enriquez Home Meds and New Rx's Prescriptions: New methocarbamol 500 mg tablet 500 mg PO Q6H PRN (Reason: muscle spasm) Qty: 14 RF: 0 hydrocodone-acetaminophen 5-325 mg tablet 1 tab PO Q6H PRN (Reason: pain) Qty: 10 RF: 0 Continued gabapentin 100 mg capsule 100 mg PO QAM PRNRF: 0 acetylcysteine [NAC] 600 mg capsule 600 mg PO DAILY RF: 0 cod liver oil Capsule 1 cap PO DAILY RF: 0 carboxymethylcellulose sodium [Refresh Tears] 0.5 % drops 1 drp OP 4-6XD PRNRF: 0 bisacodyl [Dulcolax (bisacodyl)] 5 mg tablet,delayed release (DR/EC) 5 mg PO DAILY PRNRF: 0 metoprolol succinate 50 mg tablet extended release 24 hr 50 mg PO DAILY RF: 0 citalopram 20 mg tablet 10 mg PO QHS RF: 0 diclofenac sodium [Voltaren] 1 % gel 2 g topical QID RF: 0 ranolazine [Ranexa] 500 mg tablet extended release 12 hr 500 mg PO BID RF: 0 polyethylene glycol 3350 [Miralax] 17 GM powder in packet 17 g PO DAILY PRNQty: 255 RF: 0 nitroglycerin [Nitrostat] 0.4 MG tablet, sublingual 0.4 mg Sublingual as directed RF: 0 docusate sodium [Dulcolax Stool Softener (dss)] 100 MG capsule 100 mg PO DAILY PRNRF: 0 Levemir FlexTouch U-100 Insuln 100 UNIT/1 ML insulin pen 100 units subcut BID RF: 0 riboflavin (vitamin B2) [Vitamin B-2] 100 mg tablet 400 mg PO DAILY RF: 0 topiramate [Topamax] 25 mg capsule, sprinkle 75 mg PO HS RF: 0 levothyroxine 50 MCG tablet 50 mcg PO DAILY@0730 RF: 0 allopurinol 300 MG tablet 300 mg PO DAILY RF: 0 quetiapine [Seroquel] 300 MG tablet 300 mg PO HS RF: 0 rosuvastatin [Crestor] 20 MG tablet 20 mg PO HS RF: 0 metformin [Glucophage] 1,000 mg Tablet 1,000 mg PO BID RF: 0 lisinopril 20 mg Tablet 30 mg PO DAILY RF: 0 potassium chloride 10 mEq Tablet Extended Release 10 meq PO DAILY RF: 0 isosorbide mononitrate 60 mg tablet extended release 24 hr 90 mg PO DAILY RF: 0 methocarbamol 500 mg tablet 500 mg PO Q6H PRN (Reason: muscle spasm) Qty: 14 RF: 0 hydrocodone-acetaminophen 5-325 mg tablet 1 tab PO Q6H PRN (Reason: pain) Qty: 10 RF: 0 lidocaine [Lidoderm] 1 PATCH patch 1 patch Topical Q24H Qty: 4 RF: 0 gabapentin 300 mg capsule 300 mg PO HS RF: 0 cholecalciferol (vitamin D3) [Vitamin D3] 1,000 unit Tablet 1,000 unit PO DAILY RF: 0 pantoprazole [Protonix] 40 mg tablet,delayed release (DR/EC) 40 mg PO DAILY Qty: 30 RF: 0 magnesium 250 mg Tablet 400 mg PO DAILY RF: 0 Victoza 2-Thanh 0.6 mg/0.1 mL (18 mg/3 mL) pen injector 1.8 mg SUBCUT HS RF: 0 Discontinued tramadol 50 mg tablet 50 mg PO Q6H PRNRF: 0 acetaminophen [Tylenol] 325 MG tablet 2 tab PO Q4H PRN PRNRF: 0 Discharge Instructions Instructions: Muscle Strain (ED) Additional Instructions: Alternate ice and heat to the affected area(s) several times daily for 20 minutes at a time. A prescription for vicodin (hydrocodone/acetaminophen) and methocarbamol has been sent electronically to your pharmacy. Do not take additional acetaminophen (tylenol) while taking the Vicodin as this contains acetaminophen. Also hold on taking your tramadol while you are taking the Vicodin as they are both narcotic pain medication and have a risk of slowing down your breathing. You can also continue to use your lidocaine patches for pain relief. Do not wrap or bind your chest as this can increase your risk of pneumonia due to inability to take a deep breath. Follow-up with your primary care doctor in 1 week. Return to the emergency department with any worsening or new concerning symptoms. Discharge Data Discharge Date/Time-TO BE ENTERED AT DEPARTURE: 11/07/20 20:25 Discharge Physician: Apple Enriquez Medical Decision Making 70-year-old male recently diagnosed with a left-sided rib fracture last month after a fall presents with worsening of his left sided rib pain after weed whacking yesterday. He denies any fever cough. He has normal oxygen saturation and appears nontoxic. His left anterior lateral rib pain is reproducible with tenderness to palpation and movement. His lungs are clear. Considering patient's age and history an EKG was done which noted a rate of 97, sinus, no STEMI and nondiagnostic. History and presentation not consistent with aortic dissection or PE as he denies any tearing or ripping sensation, shortness of breath, and he has normal heart rate, respiratory rate and oxygen saturation. Patient states he has been taking tramadol and gabapentin for his pain without relief. Review of his medication list notes that he is also on hydrocodone/acetaminophen as well as methocarbamol. Patient states he was unsure of taking these medications. Case discussed with who states that patient had been taking Vicodin and methocarbamol last month due to this injury but not currently. She denies any relief with taking tramadol or gabapentin. Will give 1 dose of Vicodin here and send prescriptions for Vicodin and methocarbamol to his pharmacy. also requested 1 dose of Toradol IM for this pain which worked previously. Advised to follow up with the primary care doctor for re-evaluation. Usual and customary return precautions given prior to discharge. Medical Records Medical records reviewed: Yes I reviewed the patient's medical records. ECG Data Attestation: I personally reviewed and interpreted this ECG (s) as follows: Interpretation: Rate of 97, sinus, no acute ST elevation or depression. VT 121. QTc 447. HPI General Mode of arrival: ambulatory . Date/Time Provider Initiated Documentation: 11/07/20 18:21 . Limitations to Documentation: no limitations . Information obtained by: patient . HPI Narrative: Patient is a 70-year-old male who presents with left anterior rib pain after weed whacking yesterday. Patient was seen here last month after a fall and diagnosed with a left rib fracture and has had continued pain in this area but it has been worse since mowing the lawn and weed whacking yesterday. He states his pain has been constant since his rib fracture last month and has been more since yesterday. He has pain with movement and to touch. He has tramadol and gabapentin at home with out much relief. He denies any fever, cough, shortness of breath. Related Data Home Medications Medication Instructions Recorded Confirmed allopurinol 300 mg PO DAILY 01/24/13 11/07/20 levothyroxine 50 mcg PO DAILY@0730 01/24/13 11/07/20 quetiapine [Seroquel] 300 mg PO HS 01/24/13 11/07/20 rosuvastatin [Crestor] 20 mg PO HS 03/22/17 11/07/20 docusate sodium [Dulcolax Stool 100 mg PO DAILY PRN 04/08/17 11/07/20 Softener (dss)] nitroglycerin [Nitrostat] 0.4 mg SUBLINGUAL as directed 04/08/17 11/07/20 polyethylene glycol 3350 [Miralax] 17 g PO DAILY PRN #255 gm 04/08/17 11/07/20 Levemir FlexTouch U-100 Insuln 100 units SUBCUT BID 08/04/17 11/07/20 gabapentin 300 mg capsule 300 mg PO HS cap 07/27/18 11/07/20 cholecalciferol (vitamin D3) 1,000 unit PO DAILY 11/11/18 11/07/20 [Vitamin D3] gabapentin 100 mg capsule 100 mg PO QAM PRN 12/12/18 11/07/20 metformin [Glucophage] 1,000 mg PO BID 03/08/19 11/07/20 riboflavin (vitamin B2) 100 mg 400 mg PO DAILY tab 03/28/19 11/07/20 tablet topiramate 25 mg sprinkle capsule 75 mg PO HS cap 03/28/19 11/07/20 bisacodyl 5 mg tablet,delayed 5 mg PO DAILY PRN tab 04/17/19 11/07/20 release carboxymethylcellulose sodium 0.5 1 drp OP 4-6XD PRN 04/17/19 11/07/20 % eye drops cod liver oil 1 cap PO DAILY 04/17/19 11/07/20 pantoprazole [Protonix] 40 mg PO DAILY #30 tab 04/25/19 11/07/20 metoprolol succinate 50 mg 50 mg PO DAILY 05/10/19 11/07/20 tablet,extended release 24 hr acetylcysteine 600 mg capsule 600 mg PO DAILY cap 05/16/19 11/07/20 citalopram 20 mg tablet 10 mg PO QHS tab 05/16/19 11/07/20 lisinopril 30 mg PO DAILY 05/24/19 11/07/20 magnesium 400 mg PO DAILY 07/07/19 11/07/20 diclofenac sodium 1 % topical gel 2 g TOPICAL QID 04/30/20 11/07/20 ranolazine 500 mg tablet,extended 500 mg PO BID 04/30/20 11/07/20 release,12 hr Victoza 2-Thanh 1.8 mg SUBCUT HS 06/19/20 11/07/20 hydrocodone-acetaminophen 1 tab PO Q6H PRN #10 tab 09/18/20 11/07/20 isosorbide mononitrate 90 mg PO DAILY 09/18/20 11/07/20 methocarbamol 500 mg PO Q6H PRN #14 tab 09/18/20 11/07/20 potassium chloride 10 meq PO DAILY 09/18/20 11/07/20 lidocaine [Lidoderm] 1 patch TOPICAL Q24H #4 ea 10/14/20 11/07/20 hydrocodone-acetaminophen 1 tab PO Q6H PRN #10 tab 11/07/20 methocarbamol 500 mg PO Q6H PRN #14 tab 11/07/20 Previous Rx's Medication Instructions Recorded pantoprazole [Protonix] 40 mg PO DAILY #30 tab 04/25/19 hydrocodone-acetaminophen 1 tab PO Q6H PRN #10 tab 09/18/20 methocarbamol 500 mg PO Q6H PRN #14 tab 09/18/20 lidocaine [Lidoderm] 1 patch TOPICAL Q24H #4 ea 10/14/20 hydrocodone-acetaminophen 1 tab PO Q6H PRN #10 tab 11/07/20 methocarbamol 500 mg PO Q6H PRN #14 tab 11/07/20 Allergies Allergy/AdvReac Type Severity Reaction Status Date / Time amoxicillin Allergy Severe breathing Unverified 11/07/20 18:42 difficuty and vomiting Penicillins Allergy Intermediate Skin Rash Unverified 11/07/20 18:42 sulfamethoxazole Allergy Intermediate Skin Rash Unverified 11/07/20 18:42 [From Bactrim] trimethoprim [From Bactrim] Allergy Intermediate Skin Rash Unverified 11/07/20 18:42 oxycodone HCl [From Percocet] AdvReac Severe Contraindic Unverified 11/07/20 18:42 ated oxycodone terephthalate AdvReac Severe Contraindic Unverified 11/07/20 18:42 [From Percodan] ated General Stated Complaint: Chest/Rib MADELIN: 3 Review of Systems All systems reviewed & are unremarkable except as noted in HPI and below Constitutional Constitutional: Reports as per HPI, Denies chills and Denies fever(s) Eyes Eyes: Denies blurry vision ENT Ears, Nose, Mouth, and Throat: Denies dizziness, Denies sore throat and Denies throat swelling Cardiovascular Cardiovascular: Reports chest pain and Denies dyspnea Respiratory Respiratory: Denies cough and Denies dyspnea Gastrointestinal Gastrointestinal: Denies abdominal pain, Denies diarrhea and Denies vomiting Genitourinary Genitourinary: Denies hematuria and Denies dysuria Musculoskeletal Musculoskeletal: Reports back pain and Denies numbness Integumentary/Breasts Skin/Breast: Denies lesions and Denies rash Neurologic Neurologic: Denies dizziness, Denies localized weakness and Denies numbness Allergic/Immunologic Allergic/Immunologic: Denies throat swelling [facility] Medical History (Updated 11/07/20 @ 20:06 by Apple Enriquez DO) CAD (coronary artery disease) Chronic low back pain Chronic subdural hematoma Colon polyps Depression Diastasis recti DM type 2 (diabetes mellitus, type 2) Fatty liver GERD (gastroesophageal reflux disease) Gout H/O alcohol abuse Headaches due to 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 Hx of deep venous thrombosis Hyperlipidemia Hypertension Hypothyroidism MRSA infection Obstructive sleep apnea Pituitary abnormality Right sided weakness Urethral stricture Vitamin D deficiency Surgical History Appendectomy (06/01/16) Colonoscopy - MAC 2010-5year f/u 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 electroconvulsive therapy Extraction of cataract facial lesion removal Repair of inguinal hernia (08/05/17) right inguinal hernia repair by Dr Arroyo on 08/05/17 Repair of umbilical hernia Social History Smoking/Tobacco Use Status: Never Smoking risk assessment performed?: Yes Alcohol Intake: former Drug use: Never Substance use type: does not use Household members: spouse Housing: house Pets and animals: Yes Pets and animals: dog(s) Do you feel safe at home: Yes Do you feel safe in your relationship?: Yes Exam Const General: cooperative and no acute distress HENMT Head: normal to inspection Face and sinus: normal facial exam Eyes General: appearance normal, both eyes and all related structures EOM: EOM intact bilaterally Neck Neck: normal visual inspection and No submandibular swelling Lymphatic: no lymphadenopathy noted Chest Chest: normal inspection of the chest and no tenderness Resp Effort & Inspection: normal respiratory effort and able to speak in complete sentences Auscultation: clear to auscultation bilaterally Cardio Rate: regular rate Rhythm: regular rhythm GI Inspection: normal to inspection Palpation: soft, not firm, not rigid and nontender Auscultation: normal bowel sounds Male General Exam: Yes normal external exam Back/Spine/Pelvis Thoracic/Lumbar Spine: thoracic and lumbar spine normal to inspection Pelvis: no pain with anterior-posterior compression Skin General skin exam: no rashes or lesions noted Neuro General: patient alert, patient awake and patient oriented x3 Cognition: normal cognition Speech: speech normal Motor: muscle tone normal throughout Sensory Exam: no sensory deficits noted Extrem General: normal to inspection, full ROM, capillary refill normal, no calf tenderness bilaterally and no edema Psych Appearance: grossly normal Mental Status: mental status grossly normal Speech and Movement: speech and movement normal Affect: normal affect Course Vital Signs Vital signs: Vital Signs Temperature 99.1 F 11/07/20 18:35 Pulse 92 H 11/07/20 18:35 Respiratory Rate 16 11/07/20 18:35 Blood Pressure 139/90 11/07/20 18:35 Pulse Oximetry 99 11/07/20 18:35 Temperature 99.1 F 11/07/20 18:35 Temperature Source Tympanic 11/07/20 18:35 Pulse 92 H 11/07/20 18:35 Respiratory Rate 16 11/07/20 18:35 Respiratory Effort Non-Labored 11/07/20 18:44 Respiratory Depth Normal 11/07/20 18:44 Respiratory Pattern Normal 11/07/20 18:44 Blood Pressure 139/90 11/07/20 18:35 Blood Pressure Position Sitting 11/07/20 18:35 Pulse Oximetry 99 11/07/20 18:35 Oxygen Delivery Method Room Air 11/07/20 18:35 Oxygen Flow Rate 0 11/07/20 18:35 Pain Level 10 11/07/20 18:44
[2020-11-07] MEDS: HYDROcodone 5/Acetaminophen 325 TAB PO (19:49)
[2020-11-07 20:25] VITALS: BP 139/90; PULSE 92; RESP 16; TEMP 37.3; O2SAT 99
[2020-11-07] MEDS: Ketorolac 60 MG/2 ML VIAL IM (20:29)
== END 2020-11-07 20:25 | disposition home or self-care (01) ==
PROVIDERS: Emergency Provider Physician Assistant; PCP Family Medicine
DX: S29.011A Strain of muscle and tendon of front wall of thorax, initial encounter (principal); X50.3XXA Overexertion from repetitive movements, initial encounter; Z87.81 Personal history of (healed) traumatic fracture
CPT/HCPCS: 93005; 96372; 99284; 93010; 99283; J1885

== ENCOUNTER 2020-12-24 07:41 | Outpatient (CLI) | payer MEDICARE, OTHER, SELFPAY ==
--- NOTE | 2020-12-24 07:00 | DI.RAD_ITS ---
Exam(s) XR PAIN CLINIC LUMBAR SP 2V EXAM: XR PAIN CLINIC LUMBAR SP 2V CLINICAL HISTORY: Dx: Lumbar Spondylosis TECHNIQUE: 2D and realtime digital imaging was performed. CONTRAST MATERIAL: Refer to procedure report. COMPARISON: No exams were available for comparison FINDINGS: Fluoroscopy was provided for Dr. Salazar during the performance of a lumbar radiofrequency ablation. Ple ase refer to the procedure report for complete details. Ka,r=14.2 mGy IMPRESSION:
[2020-12-24 08:00] VITALS: BP 136/81; PULSE 86; RESP 22; TEMP 36.7; O2SAT 100
[2020-12-24] MEDS: Lactated Ringers 1,000 ML 80 ML IV (08:40)
[2020-12-24] MEDS: Midazolam 2 MG/2 ML VIAL IVP (08:45)
[2020-12-24] MEDS: fentaNYL 100 MCG/2 ML VIAL IVP (08:46)
[2020-12-24] MEDS: Bupivacaine 0.5% Pres-Free 10 ML VIAL IJ (08:58)
[2020-12-24] MEDS: Lidocaine 1% Pres-Free 30 ML VIAL IJ (08:58)
[2020-12-24] MEDS: Lidocaine 2% Pres-Free 5 ML VIAL IJ (08:59)
[2020-12-24 09:02] VITALS: BP 128/70; PULSE 84; RESP 15; O2SAT 99
--- NOTE | 2020-12-24 09:05 | PDOC.PAIN ---
Pain Clinic Procedure Note Procedure Note Procedure Note: Right sided Lumbar Radiofrequency with Coolief Machine PROCEDURE NOTE Date of Service: December 24, 2020 Patient: CORYMARCELLALANDRY L Provider: Martin Mayorga MD Pre Operative Diagnosis: lumbar spondylosis without myelopathy Post Operative Diagnosis: same as above PROCEDURE: Radiofrequency Ablation of medial branches - right lumbar L2, L3, L4, L5-DR LANDRY RAY was brought into the fluoroscopy suite and positioned into the prone position on the fluoroscopy table and allowed to adjust to a position of comfort. A grounding pad was placed on the right thigh. The lumbar region was widely prepped with a chloraprep solution, allowed to air dry and draped in standard sterile surgical fashion. Local anesthesia was provided by ~10mL of 1 % lidocaine delivered with a 25g needle. A 17g 100mm radiofrequency introducer needle was placed to the planned anatomic targets guided with intermittent fluoroscopy with a perpendicular approach to terminally place at the junction of the superior articular process and the transverse process of the right L2, L3, L4 and the base of the sacral ala on the right for the L5 medial branch nerve. The stylets were removed and radiofrequency probes with a 4mm active tip were then inserted. Needle tip position of the probes was verified in the AP, oblique, and lateral views. At each site, the medial branch nerve was stimulated at 2 Hz to a maximum 1-2 volts determined to finalize safe needle and electrode placement. The patient was awake and responsive during this portion of the procedure. Each target was anesthetized with preservative-free 1 mL of 2 % lidocaine for anesthesia prior to lesioning and then each target was lesioned at 60 degrees Celsius for 2 minutes and 30 seconds. Tissue impedences were noted to be between 250 and 500 Ohms. Post lesioning, 0.5cc of 0.5% Bupivocaine (total of 2cc) was injected at each site. Steroid was omitted due to patient's fluctuating serum glucose from his baseline diabetes mellitus. Electrodes and needles were then removed and bandages placed over the needle placement sites, the patient then returned to the supine position on a stretcher and transported to the recovery room without hemodynamic, neurologic, or allergic reactions. Fluoroscopic images were printed for hard copy recording and digitally archived. POST PROCEDURE EVALUATION: IMPRESSION: 1. patient tolerated procedure well 2. excellent myotomal stimulation with visible multifus muscle twitching observed 3. patient reported no paresthesia or motor stimulation down right lower extremity, no visible motor stimualtion of right leg 4. patient received total of 0.5mg IV versed and 25mcg of IV fentanyl for IV sedation Follow up plans and appointments were discussed with the LANDRY . Post procedure instruction was given as documented in nursing documentation and having met discharge criteria, LANDRY was [facility] from the [facility]. COMMENTS: No complications. F/U with our office as needed. I personally performed this entire procedure. Mukesh Salazar MD Attending Physician
== END 2020-12-24 07:42 | disposition home or self-care (01) ==
LOC: PC 07:42
PROVIDERS: PCP Family Medicine; Visit Provider Internal Medicine
DX: M47.816 Spondylosis without myelopathy or radiculopathy, lumbar region (principal)
CPT/HCPCS: 64635; 64636; 72100; J2250; J3010

== ENCOUNTER 2020-12-27 16:50 | Emergency (ER) | payer MEDICARE, OTHER, SELFPAY ==
[2020-12-27 16:58] VITALS: BP 173/85; PULSE 85; RESP 16; TEMP 36.6; O2SAT 99
[2020-12-27 17:56] LABS: Bilirubin Negative (Negative); Blood Moderate (Negative); Clarity Clear (Clear); Glucose Negative (Negative); Ketones Negative (Negative); Leukocyte Esterase Large (Negative); Nitrite Negative (Negative); Urobilinogen 0.2 EU/dL (Up TO 0.2)
[2020-12-27 18:04] LABS: Bacteria Few HPF (Negative); C & S Indicated? Yes; Casts Negative LPF (Negative); Crystals Negative HPF (Negative); Epithelial Cells Rare HPF (Negative); Mucus Negative (Negative); RBC Negative HPF (0-2); WBC >50 HPF (0-5)
[2020-12-27 18:59] LABS: Abs Immature Grans 0.05 10^3/uL (0.0-0.06); Absolute Basophil Count 0.09 10^3/uL (0.0-0.2); Absolute Eosinophil Count 0.21 10^3/uL (0.0-0.7); Absolute Lymphocyte Count 1.08 10^3/uL (1.2-3.4); Absolute Monocyte Count 0.93 10^3/uL (0.1-0.8); Absolute Neutrophil Count 7.63 10^3/uL (1.2-6.7); Basophils % 0.9; Eosinophils % 2.1; HCT 41.4 % (40.0-50.0); HGB 13.9 g/dL (13.5-17.5); Immature Grans % 0.5; Lymphocytes % 10.8; MCH 28.9 pg (27.0-33.0); MCHC 33.6 % (32.0-36.0); MCV 86.1 fL (80-95); MPV 8.7 fL (8.0-11.0); Monocytes % 9.3; Neutrophils % 76.4; Nucleated RBC 0 %; Platelet Count 170 10^3/uL (130-400); RBC 4.81 10^6/uL (4.36-5.78); RDW 13.9 % (11.8-14.1); RDW-SD 43.2 fL; WBC 9.99 10^3/uL (4.4-10.8)
--- NOTE | 2020-12-27 19:06 | W.ED.GENAD ---
Discharge Plan Disposition Patient Disposition: HOME Condition: Stable Discharge Details Clinical Impression: UTI (urinary tract infection) Primary Care Provider: Alisa Ramirez ED Provider: Sammi Quiñones Home Meds and New Rx's Prescriptions: New cephalexin 500 mg capsule 500 mg PO BID 7 Days Qty: 14 RF: 0 phenazopyridine [Pyridium] 200 mg tablet 200 mg PO TID PRN (Reason: pain) 2 Days Qty: 5 RF: 0 No Action triamcinolone acetonide 0.1 % Ointment 1 applic TOPICAL BID RF: 0 acetylcysteine [NAC] 600 mg capsule 600 mg PO DAILY RF: 0 cod liver oil Capsule 1 cap PO DAILY RF: 0 carboxymethylcellulose sodium [Refresh Tears] 0.5 % drops 1 drp OP 4-6XD PRNRF: 0 bisacodyl [Dulcolax (bisacodyl)] 5 mg tablet,delayed release (DR/EC) 5 mg PO DAILY PRNRF: 0 metoprolol succinate 50 mg tablet extended release 24 hr 50 mg PO DAILY RF: 0 citalopram 20 mg tablet 10 mg PO QHS RF: 0 diclofenac sodium [Voltaren] 1 % gel 2 g topical QID RF: 0 ranolazine [Ranexa] 500 mg tablet extended release 12 hr 500 mg PO BID RF: 0 polyethylene glycol 3350 [Miralax] 17 GM powder in packet 17 g PO DAILY PRNQty: 255 RF: 0 nitroglycerin [Nitrostat] 0.4 MG tablet, sublingual 0.4 mg Sublingual as directed RF: 0 docusate sodium [Dulcolax Stool Softener (dss)] 100 MG capsule 100 mg PO DAILY PRNRF: 0 Levemir FlexTouch U-100 Insuln 100 UNIT/1 ML insulin pen 80 units subcut BID RF: 0 riboflavin (vitamin B2) [Vitamin B-2] 100 mg tablet 400 mg PO DAILY RF: 0 topiramate [Topamax] 25 mg capsule, sprinkle 75 mg PO HS RF: 0 levothyroxine 50 MCG tablet 50 mcg PO DAILY@0730 RF: 0 allopurinol 300 MG tablet 300 mg PO DAILY RF: 0 quetiapine [Seroquel] 300 MG tablet 300 mg PO HS RF: 0 rosuvastatin [Crestor] 20 MG tablet 20 mg PO HS RF: 0 metformin [Glucophage] 1,000 mg Tablet 1,000 mg PO BID RF: 0 lisinopril 20 mg Tablet 30 mg PO DAILY RF: 0 potassium chloride 10 mEq Tablet Extended Release 10 meq PO DAILY RF: 0 isosorbide mononitrate 60 mg tablet extended release 24 hr 90 mg PO DAILY RF: 0 lidocaine [Lidoderm] 1 PATCH patch 1 patch Topical Q24H Qty: 4 RF: 0 methocarbamol 500 mg tablet 500 mg PO Q6H PRN (Reason: muscle spasm) Qty: 14 RF: 0 hydrocodone-acetaminophen 5-325 mg tablet 1 tab PO Q6H PRN (Reason: pain) Qty: 10 RF: 0 tramadol 50 mg tablet 50 mg PO .Q6HRS PRNRF: 0 gabapentin 300 mg capsule 300 mg PO HS RF: 0 cholecalciferol (vitamin D3) [Vitamin D3] 1,000 unit Tablet 1,000 unit PO DAILY RF: 0 pantoprazole [Protonix] 40 mg tablet,delayed release (DR/EC) 40 mg PO DAILY Qty: 30 RF: 0 magnesium 250 mg Tablet 400 mg PO DAILY RF: 0 Victoza 2-Thanh 0.6 mg/0.1 mL (18 mg/3 mL) pen injector 1.8 mg SUBCUT HS RF: 0 Discharge Instructions Instructions: Cephalexin (By mouth), Phenazopyridine (By mouth), Urinary Tract Infection in Men (ED) Additional Instructions: Please return immediately to the emergency department if you develop any new or worsening symptoms, if your condition does not improve as expected, or if you become otherwise concerned. It is extremely important that you call soon as possible to make an appointment to be seen in follow-up for this visit by your primary care doctor. Referrals: Alisa Ramirez MD [Primary Care Provider] - Medical Decision Making Fredo Osman is a 70-year-old man with a history of hyperlipidemia, insulin-dependent diabetes, coronary artery disease, urethral stricture, recurrent UTI who presented to the emergency department with urinary frequency, dysuria, and fatigue for the past 2 days consistent with his prior episodes of UTI. On exam patient is well and nontoxic-appearing. There is mild suprapubic tenderness without peritoneal signs and without any other abdominal tenderness to palpation. No CVA tenderness palpation. No lower extremity edema. Concern for likely UTI. Exam/history at this time is not consistent with pyelonephritis, orchitis, testicular torsion, acute emergent intra-abdominal pathology, sepsis. While patient does not appear to be septic at this time, is well-appearing, afebrile, patient has had bacteremia in the past, plan for blood cultures. Will send screening labs to rule out electrolyte derangement and to obtain baseline WBC. UA consistent with UTI. Plan for p.o. Keflex, anticipate discharge home with outpatient follow-up. Patient is noted to have penicillin allergy, however on record review he has had cephalosporins multiple times in the past without issue. Also on record review patient has had E. coli and Klebsiella UTI on culture, both infections sensitive to Keflex. Labs reviewed, WBC 9.99, mild anion gap at 12.7, no DKA. Patient is appropriate for discharge with outpatient follow-up, return for worsening of symptoms or symptoms not improving as expected. I had a lengthy discussion with Patient regarding return to emergency department precautions, home care, and importance of outpatient follow-up. Pt verbalizes understanding of the plan and is amenable. Patient discharged to home with clear plan for outpatient follow-up. All questions were answered. Disposition decision was made weighing the risks and benefits of hospitalization versus outpatient treatment, the risk for further decompensation, and the patient's wishes. Medical Records Medical records reviewed: Yes I reviewed the patient's medical records. Lab Data Lab results reviewed: Yes I reviewed the patient's lab results. Labs: 12/27/20 19:32 Blood Blood Culture - Pending 12/27/20 19:20 Blood Blood Culture - Pending 12/27/20 17:15 Urine - Reflex from Ua Urine Culture - Pending Laboratory Tests Range/Units 12/27/20 12/27/20 12/27/20 17:15 18:13 18:45 WBC (4.4-10.8) 10^3/uL RBC (4.36-5.78) 10^6/uL Hgb (13.5-17.5) g/dL Hct (40.0-50.0) % MCV (80-95) fL MCH (27.0-33.0) pg MCHC (32.0-36.0) % RDW (11.8-14.1) % Plt Count (130-400) 10^3/uL MPV (8.0-11.0) fL Immature Gran % Neutrophils % Lymphocytes % Monocytes % Eosinophils % Basophils % Nucleated RBC % % Absolute Neutrophils (1.2-6.7) 10^3/uL Absolute Lymphocytes (1.2-3.4) 10^3/uL Absolute Monocytes (0.1-0.8) 10^3/uL Absolute Eosinophils (0.0-0.7) 10^3/uL Absolute Basophils (0.0-0.2) 10^3/uL Sodium Cancelled 135 L Potassium Cancelled 4.3 Chloride Cancelled 101 Carbon Dioxide Cancelled 21.3 Anion Gap Cancelled 12.7 H BUN Cancelled 14 Creatinine Cancelled 1.3 Estimated GFR/1.73 m2 Cancelled 54.42 Glucose Cancelled 112 H Calcium Cancelled 9.0 Total Bilirubin (0.2-1.0) mg/dL 0.5 AST (15-37) U/L 18 ALT (16-63) U/L 17 Alkaline Phosphatase (46-116) U/L 85 Total Protein (6.4-8.2) g/dL 8.0 Albumin (3.4-5.0) g/dL 4.3 Urine Color (Yellow) Yellow Urine Clarity (Clear) Clear Urine pH (5-8) 7.0 Ur Specific [place] (1.005-1.025) 1.010 Urine Protein (Negative) mg/dL 30 H Urine Ketones (Negative) mg/dL Negative Urine Blood (Negative) Moderate H Urine Nitrite (Negative) Negative Urine Bilirubin (Negative) Negative Urine Urobilinogen (Up TO 0.2) EU/dL 0.2 Ur Leukocyte Esterase (Negative) Large H Urine RBC (0-2) HPF Negative Urine WBC (0-5) HPF >50 H Ur Epithelial Cells (Negative) HPF Rare Urine Crystals (Negative) HPF Negative Urine Bacteria (Negative) HPF Few Urine Casts (Negative) LPF Negative Urine Mucus (Negative) Negative Ur Culture Indicated? Yes Urine Glucose (Negative) mg/dL Negative Range/Units 12/27/20 18:45 WBC (4.4-10.8) 10^3/uL 9.99 RBC (4.36-5.78) 10^6/uL 4.81 Hgb (13.5-17.5) g/dL 13.9 Hct (40.0-50.0) % 41.4 MCV (80-95) fL 86.1 MCH (27.0-33.0) pg 28.9 MCHC (32.0-36.0) % 33.6 RDW (11.8-14.1) % 13.9 Plt Count (130-400) 10^3/uL 170 MPV (8.0-11.0) fL 8.7 Immature Gran % 0.5 Neutrophils % 76.4 Lymphocytes % 10.8 Monocytes % 9.3 Eosinophils % 2.1 Basophils % 0.9 Nucleated RBC % % 0 Absolute Neutrophils (1.2-6.7) 10^3/uL 7.63 H Absolute Lymphocytes (1.2-3.4) 10^3/uL 1.08 L Absolute Monocytes (0.1-0.8) 10^3/uL 0.93 H Absolute Eosinophils (0.0-0.7) 10^3/uL 0.21 Absolute Basophils (0.0-0.2) 10^3/uL 0.09 Sodium Potassium Chloride Carbon Dioxide Anion Gap BUN Creatinine Estimated GFR/1.73 m2 Glucose Calcium Total Bilirubin (0.2-1.0) mg/dL AST (15-37) U/L ALT (16-63) U/L Alkaline Phosphatase (46-116) U/L Total Protein (6.4-8.2) g/dL Albumin (3.4-5.0) g/dL Urine Color (Yellow) Urine Clarity (Clear) Urine pH (5-8) Ur Specific [place] (1.005-1.025) Urine Protein (Negative) mg/dL Urine Ketones (Negative) mg/dL Urine Blood (Negative) Urine Nitrite (Negative) Urine Bilirubin (Negative) Urine Urobilinogen (Up TO 0.2) EU/dL Ur Leukocyte Esterase (Negative) Urine RBC (0-2) HPF Urine WBC (0-5) HPF Ur Epithelial Cells (Negative) HPF Urine Crystals (Negative) HPF Urine Bacteria (Negative) HPF Urine Casts (Negative) LPF Urine Mucus (Negative) Ur Culture Indicated? Urine Glucose (Negative) mg/dL HPI General Mode of arrival: ambulatory. Date/Time Provider Initiated Documentation: 12/27/20 17:27. Limitations to Documentation: no limitations. Information obtained by: patient, RN notes reviewed and old records reviewed. HPI Narrative: Fredo Osman is a 70 y/o man with history of insulin-dependent diabetes, urethral stricture, coronary artery disease, hyperlipidemia, recurrent UTI presenting to the emergency department with chief complaint frequent urination and dysuria. Patient reports that he has had multiple UTIs in the past, and for the past 2 days has had symptoms typical of his UTIs. His symptoms include burning with urination, mild suprapubic pain, urinary frequency, and fatigue. Patient reports that all of the symptoms are typical of UTIs he has had in the past. He denies fever, any other pain, cough, shortness of breath, numbness, weakness, vomiting, diarrhea, rash. Patient reports that he has been eating and drinking as usual. Patient reports last UTI was over a year ago. Related Data Home Medications Medication Instructions Recorded Confirmed allopurinol 300 mg PO DAILY 01/24/13 12/27/20 levothyroxine 50 mcg PO DAILY@0730 01/24/13 12/27/20 quetiapine [Seroquel] 300 mg PO HS 01/24/13 12/27/20 rosuvastatin [Crestor] 20 mg PO HS 03/22/17 12/27/20 docusate sodium [Dulcolax Stool 100 mg PO DAILY PRN 04/08/17 12/27/20 Softener (dss)] nitroglycerin [Nitrostat] 0.4 mg SUBLINGUAL as directed 04/08/17 12/27/20 polyethylene glycol 3350 [Miralax] 17 g PO DAILY PRN #255 gm 04/08/17 12/24/20 Levemir FlexTouch U-100 Insuln 80 units SUBCUT BID 08/04/17 12/24/20 gabapentin 300 mg capsule 300 mg PO HS cap 07/27/18 12/27/20 cholecalciferol (vitamin D3) 1,000 unit PO DAILY 11/11/18 12/24/20 [Vitamin D3] metformin [Glucophage] 1,000 mg PO BID 03/08/19 12/27/20 riboflavin (vitamin B2) 100 mg 400 mg PO DAILY tab 03/28/19 12/24/20 tablet topiramate 25 mg sprinkle capsule 75 mg PO HS cap 03/28/19 12/27/20 bisacodyl 5 mg tablet,delayed 5 mg PO DAILY PRN tab 04/17/19 12/24/20 release carboxymethylcellulose sodium 0.5 1 drp OP 4-6XD PRN 04/17/19 12/24/20 % eye drops cod liver oil 1 cap PO DAILY 04/17/19 12/24/20 pantoprazole [Protonix] 40 mg PO DAILY #30 tab 04/25/19 12/27/20 metoprolol succinate 50 mg 50 mg PO DAILY 05/10/19 12/27/20 tablet,extended release 24 hr acetylcysteine 600 mg capsule 600 mg PO DAILY cap 05/16/19 12/24/20 citalopram 20 mg tablet 10 mg PO QHS tab 05/16/19 12/27/20 lisinopril 30 mg PO DAILY 05/24/19 12/27/20 magnesium 400 mg PO DAILY 07/07/19 12/24/20 diclofenac sodium 1 % topical gel 2 g TOPICAL QID 04/30/20 12/24/20 ranolazine 500 mg tablet,extended 500 mg PO BID 04/30/20 12/24/20 release,12 hr Victoza 2-Thanh 1.8 mg SUBCUT HS 06/19/20 12/27/20 isosorbide mononitrate 90 mg PO DAILY 09/18/20 12/27/20 potassium chloride 10 meq PO DAILY 09/18/20 12/27/20 lidocaine [Lidoderm] 1 patch TOPICAL Q24H #4 ea 10/14/20 12/27/20 hydrocodone-acetaminophen 1 tab PO Q6H PRN #10 tab 11/07/20 12/27/20 methocarbamol 500 mg PO Q6H PRN #14 tab 11/07/20 12/27/20 triamcinolone acetonide 1 applic TOPICAL BID 11/13/20 12/27/20 cephalexin 500 mg PO BID 7 Days #14 cap 12/27/20 phenazopyridine [Pyridium] 200 mg PO TID PRN 2 Days #5 tab 12/27/20 tramadol 50 mg PO .Q6HRS PRN 12/27/20 12/27/20 Previous Rx's Medication Instructions Recorded pantoprazole [Protonix] 40 mg PO DAILY #30 tab 04/25/19 lidocaine [Lidoderm] 1 patch TOPICAL Q24H #4 ea 10/14/20 hydrocodone-acetaminophen 1 tab PO Q6H PRN #10 tab 11/07/20 methocarbamol 500 mg PO Q6H PRN #14 tab 11/07/20 cephalexin 500 mg PO BID 7 Days #14 cap 12/27/20 phenazopyridine [Pyridium] 200 mg PO TID PRN 2 Days #5 tab 12/27/20 Allergies Allergy/AdvReac Type Severity Reaction Status Date / Time amoxicillin Allergy Severe breathing Unverified 12/27/20 17:03 difficuty and vomiting Penicillins Allergy Intermediate Skin Rash Unverified 12/27/20 17:03 sulfamethoxazole Allergy Intermediate Skin Rash Unverified 12/27/20 17:03 [From Bactrim] trimethoprim [From Bactrim] Allergy Intermediate Skin Rash Unverified 12/27/20 17:03 oxycodone HCl [From Percocet] AdvReac Severe Contraindic Unverified 12/27/20 17:03 ated oxycodone terephthalate AdvReac Severe Contraindic Unverified 12/27/20 17:03 [From Percodan] ated General Stated Complaint: Urinary MADELIN: 3 Review of Systems Narrative: Constitutional: denies fevers, reports fatigue Eyes: denies eye pain ENT: denies ear pain, dental pain, sore throat Cardiovascular: denies chest pain, edema Respiratory: denies SOB, cough GI: denies abdominal pain, vomiting, diarrhea : denies flank pain, reports suprapubic pain, dysuria, urinary frequency MSK: denies back pain, neck pain, arthralgias, myalgias Skin: denies rash Neuro: denies headaches, numbness, weakness PFSH Medical History Anemia, iron deficiency CAD (coronary artery disease) Chronic low back pain Chronic subdural hematoma Colon polyps Constipation, chronic Depression Diastasis recti DM type 2 (diabetes mellitus, type 2) Fatty liver GERD (gastroesophageal reflux disease) Gout H/O alcohol abuse Headaches due to 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 Hx of deep venous thrombosis Hx of traumatic brain injury Hyperlipidemia Hypertension Hypothyroidism Knee pain, right Migraine headache Mild dementia MRSA infection Obstructive sleep apnea Pain in joint of right foot Pituitary abnormality Rathke's pouch cyst Recurrent UTI Rhinorrhea Right sided weakness Tinea pedis Urethral stricture Vitamin D deficiency Volvulus of cecum Surgical History Appendectomy (06/01/16) Colonoscopy - MAC 2010-5year f/u 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 electroconvulsive therapy Extraction of cataract facial lesion removal Repair of inguinal hernia (08/05/17) right inguinal hernia repair by Dr Arroyo on 08/05/17 Repair of umbilical hernia Social History Smoking/Tobacco Use Status: Never Smoking risk assessment performed?: Yes Alcohol Intake: former Drug use: Never Substance use type: does not use Household members: spouse Housing: house Pets and animals: Yes Pets and animals: dog(s) Do you feel safe at home: Yes Do you feel safe in your relationship?: Yes Exam Narrative Exam Narrative: Constitutional: well and [id number], pleasant, conversing normally HENT: head atraumatic/normocephalic/normal inspection, mucous membranes moist Eyes: conjunctiva normal, sclera normal, pupils 3mm b/l Neck: no stridor, normal ROM, trachea midline Resp: normal work of breathing, LCTAB Cardio: normal rate, normal rhythm, no murmur appreciated GI: abdomen soft, mild suprapubic tenderness palpation, otherwise abdomen nontender, no CVA tenderness to palpation, non-distended : no testicular tenderness to palpation, no testicular edema or mass, no scrotal erythema, normal examination of the penis, no genital lesion Back: normal inspection, no rash Skin: warm, dry, normal color, no rash Neuro: alert, not altered, grossly non-focal, normal tone Ext: no edema Psych: normal mood, normal affect, normal behavior Course Vital Signs Vital signs: Vital Signs Temperature 36.6 C 12/27/20 16:58 Pulse 85 12/27/20 16:58 Respiratory Rate 16 12/27/20 16:58 Blood Pressure 173/85 H 12/27/20 16:58 Pulse Oximetry 99 12/27/20 16:58 Temperature 36.6 C 12/27/20 16:58 Temperature Source Skin 12/27/20 16:58 Pulse 85 12/27/20 16:58 Respiratory Rate 16 12/27/20 16:58 Respiratory Effort Non-Labored 12/27/20 16:58 Blood Pressure 173/85 H 12/27/20 16:58 Blood Pressure Position Sitting 12/27/20 16:58 Pulse Oximetry 99 12/27/20 16:58 Oxygen Delivery Method Room Air 12/27/20 16:58 Oxygen Flow Rate 0 12/27/20 16:58 Pain Level 5 12/27/20 16:58 Lab/Test Results Lab/Test Results: 12/27/20 18:45 Blood Blood Culture - Pending 12/27/20 18:18 Blood Blood Culture - Pending 12/27/20 17:15 Urine - Reflex from Ua Urine Culture - Pending Laboratory Tests Range/Units 12/27/20 12/27/20 17:15 18:13 Sodium Cancelled Potassium Cancelled Chloride Cancelled Carbon Dioxide Cancelled Anion Gap Cancelled BUN Cancelled Creatinine Cancelled Estimated GFR/1.73 m2 Cancelled Glucose Cancelled Calcium Cancelled Urine Color (Yellow) Yellow Urine Clarity (Clear) Clear Urine pH (5-8) 7.0 Ur Specific [place] (1.005-1.025) 1.010 Urine Protein (Negative) mg/dL 30 H Urine Ketones (Negative) mg/dL Negative Urine Blood (Negative) Moderate H Urine Nitrite (Negative) Negative Urine Bilirubin (Negative) Negative Urine Urobilinogen (Up TO 0.2) EU/dL 0.2 Ur Leukocyte Esterase (Negative) Large H Urine RBC (0-2) HPF Negative Urine WBC (0-5) HPF >50 H Ur Epithelial Cells (Negative) HPF Rare Urine Crystals (Negative) HPF Negative Urine Bacteria (Negative) HPF Few Urine Casts (Negative) LPF Negative Urine Mucus (Negative) Negative Ur Culture Indicated? Yes Urine Glucose (Negative) mg/dL Negative
[2020-12-27 19:08] LABS: ALT 17 U/L (16-63); AST 18 U/L (15-37); Albumin 4.3 g/dL (3.4-5.0); Alkaline Phosphatase 85 U/L (46-116); Anion Gap 12.7 mmol/L (3-11); BUN 14 mg/dL (7-18); Bilirubin, Total 0.5 mg/dL (0.2-1.0); CO2 21.3 mmol/L (21.0-32.0); CREATININE 1.3 mg/dL (0.70-1.30); Chloride 101 mmol/L (98-107); Estimated GFR 54.42 (mL/min/1.73m2); Glucose 112 mg/dL (74-106); Potassium 4.3 mmol/L (3.5-5.1); Sodium 135 mmol/L (136-145)
[2020-12-27] MEDS: Phenazopyridine 200 MG TAB PO ×2 (19:12→20:47)
[2020-12-27 20:11] VITALS: BP 150/74; PULSE 85; RESP 17; TEMP 36.7; O2SAT 98
[2020-12-27] MEDS: Cephalexin 500 MG CAP PO (20:47)
== END 2020-12-27 20:50 | disposition home or self-care (01) ==
PROVIDERS: Emergency Provider Student in an Organized Health Care Education/Training Program; PCP Family Medicine
DX: N39.0 Urinary tract infection, site not specified (principal)
CPT/HCPCS: 80048; 80053; 87040; 99283; 81003; 81015; 85025; 87086

== ENCOUNTER 2021-01-03 16:28 | Outpatient (REF) | payer MEDICARE, OTHER, SELFPAY | END 2021-01-03 16:29 | disposition home or self-care (01) | LOC: LBN 16:28 | PROVIDERS: PCP Family Medicine; Visit Provider Urology | DX: N39.0 Urinary tract infection, site not specified (principal) | CPT/HCPCS: 87077; 87086; 87186 ==

== ENCOUNTER 2021-01-04 13:10 | Emergency (ER) | payer MEDICARE, OTHER, SELFPAY ==
--- NOTE | 2021-01-04 13:14 | ED.GENADUL_ITS ---
Discharge Plan Disposition Patient Disposition: HOME Condition: Improving Discharge Details Clinical Impression: UTI (urinary tract infection) Primary Care Provider: Alisa Ramirez ED Provider: Apple Enriquez Home Meds and New Rx's Prescriptions: New tramadol 50 mg tablet 50 mg PO TID PRN (Reason: pain) Qty: 10 RF: 0 Continued triamcinolone acetonide 0.1 % Ointment 1 applic TOPICAL BID RF: 0 acetylcysteine [NAC] 600 mg capsule 600 mg PO DAILY RF: 0 cod liver oil Capsule 1 cap PO DAILY RF: 0 carboxymethylcellulose sodium [Refresh Tears] 0.5 % drops 1 drp OP 4-6XD PRNRF: 0 bisacodyl [Dulcolax (bisacodyl)] 5 mg tablet,delayed release (DR/EC) 5 mg PO DAILY PRNRF: 0 metoprolol succinate 50 mg tablet extended release 24 hr 50 mg PO DAILY RF: 0 citalopram 20 mg tablet 10 mg PO QHS RF: 0 diclofenac sodium [Voltaren] 1 % gel 2 g topical QID RF: 0 ranolazine [Ranexa] 500 mg tablet extended release 12 hr 500 mg PO BID RF: 0 polyethylene glycol 3350 [Miralax] 17 GM powder in packet 17 g PO DAILY PRNQty: 255 RF: 0 nitroglycerin [Nitrostat] 0.4 MG tablet, sublingual 0.4 mg Sublingual as directed RF: 0 docusate sodium [Dulcolax Stool Softener (dss)] 100 MG capsule 100 mg PO DAILY PRNRF: 0 Levemir FlexTouch U-100 Insuln 100 UNIT/1 ML insulin pen 80 units subcut BID RF: 0 riboflavin (vitamin B2) [Vitamin B-2] 100 mg tablet 400 mg PO DAILY RF: 0 topiramate [Topamax] 25 mg capsule, sprinkle 75 mg PO HS RF: 0 levothyroxine 50 MCG tablet 50 mcg PO DAILY@0730 RF: 0 allopurinol 300 MG tablet 300 mg PO DAILY RF: 0 quetiapine [Seroquel] 300 MG tablet 300 mg PO HS RF: 0 rosuvastatin [Crestor] 20 MG tablet 20 mg PO HS RF: 0 metformin [Glucophage] 1,000 mg Tablet 1,000 mg PO BID RF: 0 lisinopril 20 mg Tablet 30 mg PO DAILY RF: 0 potassium chloride 10 mEq Tablet Extended Release 10 meq PO DAILY RF: 0 isosorbide mononitrate 60 mg tablet extended release 24 hr 90 mg PO DAILY RF: 0 lidocaine [Lidoderm] 1 PATCH patch 1 patch Topical Q24H Qty: 4 RF: 0 methocarbamol 500 mg tablet 500 mg PO Q6H PRN (Reason: muscle spasm) Qty: 14 RF: 0 hydrocodone-acetaminophen 5-325 mg tablet 1 tab PO Q6H PRN (Reason: pain) Qty: 10 RF: 0 tramadol 50 mg tablet 50 mg PO .Q6HRS PRNRF: 0 gabapentin 300 mg capsule 300 mg PO HS RF: 0 cholecalciferol (vitamin D3) [Vitamin D3] 1,000 unit Tablet 1,000 unit PO DAILY RF: 0 pantoprazole [Protonix] 40 mg tablet,delayed release (DR/EC) 40 mg PO DAILY Qty: 30 RF: 0 magnesium 250 mg Tablet 400 mg PO DAILY RF: 0 Victoza 2-Thanh 0.6 mg/0.1 mL (18 mg/3 mL) pen injector 1.8 mg SUBCUT HS RF: 0 Discharge Instructions Instructions: Urinary Tract Infection in Men (ED) Additional Instructions: Drink plenty of fluids and get plenty of rest. Alternate tylenol and motrin as needed and directed for pain. Take the tramadol for pain unrelieved with Tylenol or Motrin. Take the second dose of the antibiotic fosfomycin on Wednesday and take the third and final dose of the fosfomycin on Wednesday. Call Dr. Obregon's office on Wednesday morning to schedule a follow-up appointment for reevaluation. Return immediately to the emergency department if you develop any worsening or new concerning symptoms such as fever, increased pain, persistent vomiting or any other concerns. Referrals: Ilia Obregon MD [ [facility] STAFF PHYSICIAN] - Discharge Data Discharge Date/Time-TO BE ENTERED AT DEPARTURE: 01/04/21 16:18 Discharge Physician: Apple Enriquez Medical Decision Making 70-year-old male with a history of coronary artery disease, CABG, hypertension, hyperlipidemia, diabetes who finished Keflex today for recent UTI presents with fever, back pain and urinary symptoms for the past few weeks. Review of records note that urine culture from 12/27 ED visit negative. Urine culture submitted to the lab through urology yesterday notes Pseudomonas. Patient appears nontoxic and is afebrile. Abdomen minimally distended but nontender. Normal exam. Differential diagnosis includes drug-resistant UTI, pyelonephritis, kidney stone, small bowel obstruction, colitis. As he has no testicular pain with normal exam, prostatitis less likely. Will place an IV, bolus IV fluids, screening labs, urinalysis, CT abdomen and pelvis. Will give Toradol and Zofran. Labs reviewed. White blood cell count 15. Creatinine 1.6. Urinalysis notes 5- 10 WBCs and 20-50 RBCs with small leukocyte esterase and many bacteria. Cannot give fluoroquinolones secondary to risk of QT prolongation with Celexa and Seroquel. Attempted to contact Dr. Obregon but no response. Will treat with fosfomycin 3 g x 3 doses every [address] reviewed and notes cystitis but no evidence of pyelonephritis or stone. Patient reassessed and he states he feels better but still has some back pain. He does take tramadol at home. We will give a dose of fosfomycin and tramadol now. states he only has 2 tabs of tramadol at home we will send with some tramadol and he was given 2 tabs of the fosfomycin to go. Advised to call Dr. Obregon's office on Wednesday morning for follow-up. Usual and customary return precautions given prior to discharge. Medical Records Medical records reviewed: Yes I reviewed the patient's medical records. Imaging Data Radiologic Study: Radiologist's impression: CT Abdomen And Pelvis With Contrast Exam date and time: 01/04/2021 1:52 PM Age: 70 years old Clinical indication: Other: Fever, UTI symptoms, constipation, R/O pyelonephritis, kidney stone, sbo TECHNIQUE: Imaging protocol: Computed tomography of the abdomen and pelvis with contrast. Radiation optimization: All CT scans at this facility use at least one of these dose optimization techniques: automated exposure control; mA and/or kV adjustment per patient size (includes targeted exams where dose is matched to clinical indication); or iterative reconstruction. Contrast material: OMNIPAQUE 350; Contrast volume: 100 ml; Contrast route: INTRAVENOUS (IV); COMPARISON: CT CHEST/ABD/PEL W 06/19/2020 6:56 PM FINDINGS: Lungs: There is some mild bibasilar fibrosis, unchanged from previous study. Liver: Hepatomegaly are. No mass. Gallbladder and bile ducts: Normal. No calcified stones. No ductal dilation. Pancreas: Normal. No ductal dilation. Spleen: Normal. No splenomegaly. Adrenal glands: Normal. No mass. Kidneys and ureters: Bilateral renal cysts. Renal perfusion is symmetric. There is no hydronephrosis or hydroureter. Stomach and bowel: Unremarkable. No obstruction. No mucosal thickening. Appendix: No evidence of appendicitis. Intraperitoneal space: Unremarkable. No free air. No significant fluid collection. Vasculature: Mild atherosclerotic change noted in the vasculature. Lymph nodes: Unremarkable. No enlarged lymph nodes. Urinary bladder: The bladder is not well distended. Allowing for this there may be some mild bladder wall thickening. Reproductive: Unremarkable as visualized. Bones/joints: Status post median sternotomy. T12 compression deformity again seen. Soft tissues: Unremarkable. IMPRESSION: Even allowing for incomplete distention, bladder appearances suggest possible degree of cystitis. No evidence for pyelonephritis. Lab Data Lab results reviewed: Yes I reviewed the patient's lab results. Labs: 01/04/21 13:30 Urine - Reflex from Ua Urine Culture - Pending Laboratory Tests Range/Units 01/04/21 01/04/21 01/04/21 13:30 13:38 13:38 WBC (4.4-10.8) 10^3/uL 15.22 H RBC (4.36-5.78) 10^6/uL 4.27 L Hgb (13.5-17.5) g/dL 12.3 L Hct (40.0-50.0) % 36.3 L MCV (80-95) fL 85.0 MCH (27.0-33.0) pg 28.8 MCHC (32.0-36.0) % 33.9 RDW (11.8-14.1) % 14.0 Plt Count (130-400) 10^3/uL 188 MPV (8.0-11.0) fL 8.6 Immature Gran % 0.5 Neutrophils % 78.4 Lymphocytes % 9.3 Monocytes % 9.3 Eosinophils % 1.8 Basophils % 0.7 Nucleated RBC % % 0 Absolute Neutrophils (1.2-6.7) 10^3/uL 11.93 H Absolute Lymphocytes (1.2-3.4) 10^3/uL 1.42 Absolute Monocytes (0.1-0.8) 10^3/uL 1.42 H Absolute Eosinophils (0.0-0.7) 10^3/uL 0.27 Absolute Basophils (0.0-0.2) 10^3/uL 0.11 Sodium (136-145) mmol/L 139 Potassium (3.5-5.1) mmol/L 3.7 Chloride (98-107) mmol/L 105 Carbon Dioxide (21.0-32.0) mmol/L 20.1 L Anion Gap (3-11) mmol/L 13.9 H BUN (7-18) mg/dL 16 Creatinine (0.70-1.30) mg/dL 1.6 H Estimated GFR/1.73 m2 (mL/min/1.73m2) 42.82 Glucose (74-106) mg/dL 183 H Calcium (8.5-10.1) mg/dL 8.6 Total Bilirubin (0.2-1.0) mg/dL 0.6 AST (15-37) U/L 13 L ALT (16-63) U/L 17 Alkaline Phosphatase (46-116) U/L 82 Total Protein (6.4-8.2) g/dL 7.7 Albumin (3.4-5.0) g/dL 3.9 Urine Color (Yellow) Yellow Urine Clarity (Clear) Sl Cloudy Urine pH (5-8) 5.5 Ur Specific [place] (1.005-1.025) 1.020 Urine Protein (Negative) mg/dL 30 H Urine Ketones (Negative) mg/dL Negative Urine Blood (Negative) Moderate H Urine Nitrite (Negative) Negative Urine Bilirubin (Negative) Negative Urine Urobilinogen (Up TO 0.2) EU/dL 0.2 Ur Leukocyte Esterase (Negative) Small H Urine RBC (0-2) HPF 20-50 H Urine WBC (0-5) HPF 5-10 Ur Epithelial Cells (Negative) HPF Few Urine Crystals (Negative) HPF Negative Urine Bacteria (Negative) HPF Many Urine Casts (Negative) LPF Negative Urine Mucus (Negative) Negative Ur Culture Indicated? Yes Urine Glucose (Negative) mg/dL Negative HPI General Mode of arrival: ambulatory . Date/Time Provider Initiated Documentation: 01/04/21 13:11 . Limitations to Documentation: no limitations . Information obtained by: patient . HPI Narrative: Patient is a 70-year-old male with a history of coronary artery disease and CABG, hypertension, hyperlipidemia, GERD, diabetes presents for fever, dysuria, frequency, incontinence and lower back pain for the past few weeks. Patient was seen here last week for the same complaint and diagnosed with UTI and started on Keflex which he finished today. He states he called the urology office due to his persistent symptoms yesterday and submitted a urine culture to them. Patient states his took a tympanic temperature last night which was 102. Patient states he has been able to eat and admits to nausea but denies any vomiting. Related Data Home Medications Medication Instructions Recorded Confirmed allopurinol 300 mg PO DAILY 01/24/13 01/04/21 levothyroxine 50 mcg PO DAILY@0730 01/24/13 01/04/21 quetiapine [Seroquel] 300 mg PO HS 01/24/13 01/04/21 rosuvastatin [Crestor] 20 mg PO HS 03/22/17 01/04/21 docusate sodium [Dulcolax Stool 100 mg PO DAILY PRN 04/08/17 01/04/21 Softener (dss)] nitroglycerin [Nitrostat] 0.4 mg SUBLINGUAL as directed 04/08/17 01/04/21 polyethylene glycol 3350 [Miralax] 17 g PO DAILY PRN #255 gm 04/08/17 01/04/21 Levemir FlexTouch U-100 Insuln 80 units SUBCUT BID 08/04/17 01/04/21 gabapentin 300 mg capsule 300 mg PO HS cap 07/27/18 01/04/21 cholecalciferol (vitamin D3) 1,000 unit PO DAILY 11/11/18 01/04/21 [Vitamin D3] metformin [Glucophage] 1,000 mg PO BID 03/08/19 01/04/21 riboflavin (vitamin B2) 100 mg 400 mg PO DAILY tab 03/28/19 01/04/21 tablet topiramate 25 mg sprinkle capsule 75 mg PO HS cap 03/28/19 01/04/21 bisacodyl 5 mg tablet,delayed 5 mg PO DAILY PRN tab 04/17/19 01/04/21 release carboxymethylcellulose sodium 0.5 1 drp OP 4-6XD PRN 04/17/19 01/04/21 % eye drops cod liver oil 1 cap PO DAILY 04/17/19 01/04/21 pantoprazole [Protonix] 40 mg PO DAILY #30 tab 04/25/19 01/04/21 metoprolol succinate 50 mg 50 mg PO DAILY 05/10/19 01/04/21 tablet,extended release 24 hr acetylcysteine 600 mg capsule 600 mg PO DAILY cap 05/16/19 01/04/21 citalopram 20 mg tablet 10 mg PO QHS tab 05/16/19 01/04/21 lisinopril 30 mg PO DAILY 05/24/19 01/04/21 magnesium 400 mg PO DAILY 07/07/19 01/04/21 diclofenac sodium 1 % topical gel 2 g TOPICAL QID 04/30/20 01/04/21 ranolazine 500 mg tablet,extended 500 mg PO BID 04/30/20 01/04/21 release,12 hr Victoza 2-Thanh 1.8 mg SUBCUT HS 06/19/20 01/04/21 isosorbide mononitrate 90 mg PO DAILY 09/18/20 01/04/21 potassium chloride 10 meq PO DAILY 09/18/20 01/04/21 lidocaine [Lidoderm] 1 patch TOPICAL Q24H #4 ea 10/14/20 01/04/21 hydrocodone-acetaminophen 1 tab PO Q6H PRN #10 tab 11/07/20 01/04/21 methocarbamol 500 mg PO Q6H PRN #14 tab 11/07/20 01/04/21 triamcinolone acetonide 1 applic TOPICAL BID 11/13/20 01/04/21 tramadol 50 mg PO .Q6HRS PRN 12/27/20 01/04/21 tramadol 50 mg PO TID PRN #10 tab 01/04/21 Previous Rx's Medication Instructions Recorded pantoprazole [Protonix] 40 mg PO DAILY #30 tab 04/25/19 lidocaine [Lidoderm] 1 patch TOPICAL Q24H #4 ea 10/14/20 hydrocodone-acetaminophen 1 tab PO Q6H PRN #10 tab 11/07/20 methocarbamol 500 mg PO Q6H PRN #14 tab 11/07/20 tramadol 50 mg PO TID PRN #10 tab 01/04/21 Allergies Allergy/AdvReac Type Severity Reaction Status Date / Time amoxicillin Allergy Severe breathing Unverified 01/04/21 13:19 difficuty and vomiting Penicillins Allergy Intermediate Skin Rash Unverified 01/04/21 13:19 sulfamethoxazole Allergy Intermediate Skin Rash Unverified 01/04/21 13:19 [From Bactrim] trimethoprim [From Bactrim] Allergy Intermediate Skin Rash Unverified 01/04/21 13:19 oxycodone HCl [From Percocet] AdvReac Severe Contraindic Unverified 01/04/21 13:19 ated oxycodone terephthalate AdvReac Severe Contraindic Unverified 01/04/21 13:19 [From Percodan] ated General MADELIN: 3 Review of Systems All systems reviewed & are unremarkable except as noted in HPI and below Constitutional Constitutional: Reports as per HPI, Denies chills and Reports fever(s) Eyes Eyes: Denies blurry vision ENT Ears, Nose, Mouth, and Throat: Denies dizziness, Denies sore throat and Denies throat swelling Cardiovascular Cardiovascular: Denies chest pain and Denies dyspnea Respiratory Respiratory: Denies cough and Denies dyspnea Gastrointestinal Gastrointestinal: Denies abdominal pain, Denies diarrhea and Denies vomiting Genitourinary Genitourinary: Denies hematuria, Reports dysuria, Reports urinary frequency, Reports urinary hesitancy and Reports urinary urgency Musculoskeletal Musculoskeletal: Reports back pain and Denies numbness Integumentary/Breasts Skin/Breast: Denies lesions and Denies rash Neurologic Neurologic: Denies dizziness, Denies localized weakness and Denies numbness Allergic/Immunologic Allergic/Immunologic: Denies throat swelling [facility] Medical History Anemia, iron deficiency CAD (coronary artery disease) Chronic low back pain Chronic subdural hematoma Colon polyps Constipation, chronic Depression Diastasis recti DM type 2 (diabetes mellitus, type 2) Fatty liver GERD (gastroesophageal reflux disease) Gout H/O alcohol abuse Headaches due to 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 Hx of deep venous thrombosis Hx of traumatic brain injury Hyperlipidemia Hypertension Hypothyroidism Knee pain, right Migraine headache Mild dementia MRSA infection Obstructive sleep apnea Pain in joint of right foot Pituitary abnormality Rathke's pouch cyst Recurrent UTI Rhinorrhea Right sided weakness Tinea pedis Urethral stricture Vitamin D deficiency Volvulus of cecum Surgical History Appendectomy (06/01/16) Colonoscopy - MAC 2010-5year f/u 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 electroconvulsive therapy Extraction of cataract facial lesion removal Repair of inguinal hernia (08/05/17) right inguinal hernia repair by Dr Arroyo on 08/05/17 Repair of umbilical hernia Social History Smoking/Tobacco Use Status: Never Smoking risk assessment performed?: Yes Alcohol Intake: former Drug use: Never Substance use type: does not use Household members: spouse Housing: house Pets and animals: Yes Pets and animals: dog(s) Do you feel safe at home: Yes Do you feel safe in your relationship?: Yes Exam Const General: cooperative and no acute distress Orientation: alert, awake and oriented x3 HENMT Head: normal to inspection Face and sinus: normal facial exam Eyes General: appearance normal, both eyes and all related structures EOM: EOM intact bilaterally Neck Neck: normal visual inspection and No submandibular swelling Lymphatic: no lymphadenopathy noted Chest Chest: normal inspection of the chest and no tenderness Resp Effort & Inspection: normal respiratory effort and able to speak in complete sentences Auscultation: clear to auscultation bilaterally Cardio Rate: tachycardic Rhythm: regular rhythm GI Inspection: normal to inspection Palpation: soft, not firm, not rigid and nontender Auscultation: normal bowel sounds Male General Exam: Yes normal external exam Penis: normal penis Scrotum: scrotum normal Testes: normal, no testicular swelling and no testicular tenderness Skin General skin exam: no rashes or lesions noted Neuro General: patient alert, patient awake and patient oriented x3 Cognition: normal cognition Speech: speech normal Motor: muscle tone normal throughout Sensory Exam: no sensory deficits noted Extrem General: normal to inspection, full ROM, capillary refill normal, no calf tenderness bilaterally and no edema Psych Appearance: grossly normal Mental Status: mental status grossly normal Speech and Movement: speech and movement normal Affect: normal affect
[2021-01-04 13:15] VITALS: BP 122/81; PULSE 107; TEMP 36.7; O2SAT 96
--- NOTE | 2021-01-04 13:45 | DI.CT_ITS ---
Exam(s) CT ABDOMEN PELVIS W EXAM: CT ABDOMEN PELVIS W CLINICAL HISTORY: fever, uti symptoms, constipation. TECHNIQUE: Imaging Protocol: Axial computed tomography images with coronal and sagittal reformatted images were created and reviewed CONTRAST MATERIAL: Intravenous: Omnipaque 100cc Oral: None COMPARISON: CT CT CHEST/ABD/PEL W from 06/19/2020 FINDINGS: VISUALIZED LUNG BASES: No nodules nor pleural effusions evident. Sternotomy wires noted ABDOMEN: There is no ascites. LIVER: Is again noted and unchanged 1 cm cyst in the right hepatic lobe adjacent to the gallbladder f aric. There are no other focal hepatic findings. No dilatation of intrahepatic ducts. GALLBLADDER/BILIARY: There is a single calcification in the gallbladder measuring 6 x 4 millimeters. This is on the anterior wall. Possibly calcified polyp. Gallbladder wall is not edematous. There is no pericholecystic fluid. The CBD is not dilated. PANCREAS: No evidence of pancreatic mass nor dilatation of the pancreatic duct. SPLEEN: Spleen size is upper normal-slightly prominent. There are no intrasplenic lesions. Splenic and portal veins are patent. ADRENALS: There are no significant adrenal masses. KIDNEYS:There is a cyst noted in medial cortex of the lower pole of the right kidney which measures 2 .0 x 2.0 cm, slightly increased in size but still benign appearance. No other focal right kidney fin dings. In the left kidney there is a small 4 millimeter cortical cysts seen laterally. No solid nahum al masses on either side. No calculi nor hydronephrosis.. ABDOMINAL AORTA: Abdominal aorta is not enlarged. LYMPH NODES:There is no retroperitineal nor paraaortic adenopathy. ABDOMINAL WALL: No evidence of significant anterior abdominal wall hernia. GI: There is no evidence of bowel obstruction, free air, nor abscess. PELVIS: GI: No evidence of appendicitis.There is no significant sigmoid diverticular disease. LYMPH NODES: There is no intrapelvic nor inguinal adenopathy. REPRODUCTIVE: Prostate size upper normal. URINARY BLADDER: Urinary bladder wall is abnormally thickened, most prominent anteriorly. Probable c hronic cystitis. OSSEOUS: No significant osseous lesions. Wedge compression fracture of T12 is again noted. No new compression fractures. IMPRESSION: 1. There is a solitary 6 x 4 millimeter calcification in the anterior gallbladder wall which is eithe r a calcified polyp or non dependent gallstone. There is no evidence of acute cholecystitis. No dil atation of the biliary tree, both intra and extrahepatic. 2. Unchanged small 1 cm hepatic cyst. No solid liver lesions. 3. Mild splenomegaly. 4. Small benign renal cysts. No solid renal masses. No calculi nor hydronephrosis. There is significant thickening of the urinary bladder wall which is diffuse, most prominent anterior ly, and was not evident on the prior CT scan performed on 06/19/2020. This appears to be a significa nt finding. The bladder itself is not distended. Prostate size is upper normal. Unchanged wedge compression fracture of T12. No new fractures. RADIATION DOSE DELIVERED: 1,051.19mGy.cm Total DLP DATA REPOSITORY: All CT scans at this facility are submitted to the National Radiology Data Registry (NRDR) Dose Index Registry (DIR) with the [employer] ([employer]). RADIATION OPTIMIZATION: All CT scans at this facility use at least one of these dose optimization te chniques: automated exposure control; mA and/or kV adjustment per patient size (includes targeted exa ms where dose is matched to clinical indication); or iterative reconstruction.
[2021-01-04 13:47] LABS: Abs Immature Grans 0.07 10^3/uL (0.0-0.06); Absolute Eosinophil Count 0.27 10^3/uL (0.0-0.7); Basophils % 0.7; Eosinophils % 1.8; HCT 36.3 % (40.0-50.0); HGB 12.3 g/dL (13.5-17.5); Immature Grans % 0.5; Lymphocytes % 9.3; MCH 28.8 pg (27.0-33.0); MCHC 33.9 % (32.0-36.0); MPV 8.6 fL (8.0-11.0); Monocytes % 9.3; Neutrophils % 78.4; Nucleated RBC 0 %; Platelet Count 188 10^3/uL (130-400); RBC 4.27 10^6/uL (4.36-5.78); RDW-SD 42.7 fL; WBC 15.22 10^3/uL (4.4-10.8)
[2021-01-04 13:48] LABS: Absolute Basophil Count 0.11 10^3/uL (0.0-0.2); Absolute Lymphocyte Count 1.42 10^3/uL (1.2-3.4); Absolute Monocyte Count 1.42 10^3/uL (0.1-0.8); Absolute Neutrophil Count 11.93 10^3/uL (1.2-6.7)
[2021-01-04 13:48] LABS: Bilirubin Negative (Negative); Blood Moderate (Negative); Clarity Sl Cloudy (Clear); Glucose Negative (Negative); Ketones Negative (Negative); Leukocyte Esterase Small (Negative); Nitrite Negative (Negative); Urobilinogen 0.2 EU/dL (Up TO 0.2); pH 5.5 (5-8)
[2021-01-04 14:01] LABS: Bacteria Many HPF (Negative); C & S Indicated? Yes; Casts Negative LPF (Negative); Crystals Negative HPF (Negative); Epithelial Cells Few HPF (Negative); Mucus Negative (Negative); RBC 20-50 HPF (0-2)
[2021-01-04] MEDS: Ketorolac 30 MG/ML VIAL IVP (14:02)
[2021-01-04 14:05] LABS: ALT 17 U/L (16-63); AST 13 U/L (15-37); Albumin 3.9 g/dL (3.4-5.0); Alkaline Phosphatase 82 U/L (46-116); Anion Gap 13.9 mmol/L (3-11); BUN 16 mg/dL (7-18); Bilirubin, Total 0.6 mg/dL (0.2-1.0); CO2 20.1 mmol/L (21.0-32.0); CREATININE 1.6 mg/dL (0.70-1.30); Calcium 8.6 mg/dL (8.5-10.1); Chloride 105 mmol/L (98-107); Estimated GFR 42.82 (mL/min/1.73m2); Glucose 183 mg/dL (74-106); Potassium 3.7 mmol/L (3.5-5.1); Sodium 139 mmol/L (136-145); Total Protein 7.7 g/dL (6.4-8.2)
[2021-01-04] MEDS: Normal Saline 500 ML IV (14:19)
[2021-01-04] MEDS: Omnipaque 350 MG/ML 100 ML BTL IV (14:32)
[2021-01-04] MEDS: Normal Saline - Diluent 50 ML VIAL IV (14:33)
--- NOTE | 2021-01-04 15:15 | DI.VRAD_ITS ---
PROCEDURE INFORMATION: Exam: CT Abdomen And Pelvis With Contrast Exam date and time: 01/04/2021 1:52 PM Age: 70 years old Clinical indication: Other: Fever, UTI symptoms, constipation, R/O pyelonephritis, kidney stone, sbo TECHNIQUE: Imaging protocol: Computed tomography of the abdomen and pelvis with contrast. Radiation optimization: All CT scans at this facility use at least one of these dose optimization techniques: automated exposure control; mA and/or kV adjustment per patient size (includes targeted exams where dose is matched to clinical indication); or iterative reconstruction. Contrast material: OMNIPAQUE 350; Contrast volume: 100 ml; Contrast route: INTRAVENOUS (IV); COMPARISON: CT CHEST/ABD/PEL W 06/19/2020 6:56 PM FINDINGS: Lungs: There is some mild bibasilar fibrosis, unchanged from previous study. Liver: Hepatomegaly are. No mass. Gallbladder and bile ducts: Normal. No calcified stones. No ductal dilation. Pancreas: Normal. No ductal dilation. Spleen: Normal. No splenomegaly. Adrenal glands: Normal. No mass. Kidneys and ureters: Bilateral renal cysts. Renal perfusion is symmetric. There is no hydronephrosis or hydroureter. Stomach and bowel: Unremarkable. No obstruction. No mucosal thickening. Appendix: No evidence of appendicitis. Intraperitoneal space: Unremarkable. No free air. No significant fluid collection. Vasculature: Mild atherosclerotic change noted in the vasculature. Lymph nodes: Unremarkable. No enlarged lymph nodes. Urinary bladder: The bladder is not well distended. Allowing for this there may be some mild bladder wall thickening. Reproductive: Unremarkable as visualized. Bones/joints: Status post median sternotomy. T12 compression deformity again seen. Soft tissues: Unremarkable. IMPRESSION: Even allowing for incomplete distention, bladder appearances suggest possible degree of cystitis. No evidence for pyelonephritis. Dictated and Authenticated by: Jeri Bangura MD. Ordering:RU Chiu MD
[2021-01-04] MEDS: traMADol 50 MG TAB PO (15:46)
[2021-01-04] MEDS: Fosfomycin Tromethamine 3 GM PACKET 6 GM PO (15:46)
[2021-01-04] MEDS: Fosfomycin Tromethamine 3 GM PACKET PO (15:46)
--- NOTE | 2021-01-04 16:01 | NUR.NOTE ---
referral to urology faxed
== END 2021-01-04 16:18 | disposition home or self-care (01) ==
PROVIDERS: Emergency Provider Physician Assistant; PCP Family Medicine
DX: N39.0 Urinary tract infection, site not specified (principal); B96.5 Pseudomonas (aeruginosa) (mallei) (pseudomallei) as the cause of diseases classified elsewhere; M54.5 Low back pain; Z87.440 Personal history of urinary (tract) infections
CPT/HCPCS: 36415; 80053; 96361; 96365; 96375; 99285; 74177; 81003; 81015; 85025; 87086; J1885; J3490

== ENCOUNTER 2021-01-05 18:59 | Emergency (ER) | payer MEDICARE, OTHER, SELFPAY ==
[2021-01-05] VITALS (11 sets, daily range): BP systolic 126–159; BP diastolic 73–87; PULSE 90–148; RESP 17–28; TEMP 36.2–37.5; O2SAT 95–98
--- NOTE | 2021-01-05 19:00 | RT.EKG_ITS ---
APPROVED REPORT Exam: Resting ECG Reason for Exam: chest pain Patient Location: E HR:98 bpm ECG Measurements Heart Rate 98 AXIS AZ 124 P 50 QRSd 83 QRS 18 QT 353 T 207 QTc 450 Conclusion Sinus rhythm...normal P axis, V-rate 60- 99 Atrial premature complexes...SV complexes w/ short R-R intvls. No STEMI. I have reviewed and interpreted ECG and agree with software generated interpretation.
--- NOTE | 2021-01-05 19:30 | DI.RAD_ITS ---
Exam(s) XR CHEST 2V PA LATERAL EXAM: XR CHEST 2V PA LATERAL CLINICAL HISTORY: Chest pain. TECHNIQUE: 2D digital imaging was performed. COMPARISON: CT CT CHEST WO from 10/14/[address] CHEST WO from 10/14/2020 CR XR RIBS LT W PA LAT CHEST from 10/16/2020 FINDINGS: Heart size unchanged. Sternotomy wires are again noted. Lungs are clear. No infiltrates nor pleural effusions. IMPRESSION: No acute pulmonary findings. Previous sternotomy. No pulmonary edema. DATA REPOSITORY: RADIATION DOSE DELIVERED:
--- NOTE | 2021-01-05 19:32 | W.ED.GENAD ---
Discharge Plan Disposition Patient Disposition: HOME Condition: Stable Discharge Details Clinical Impression: Chest pain Primary Care Provider: Alisa Ramirez ED Provider: Hodan Garcia Home Meds and New Rx's Prescriptions: Continued triamcinolone acetonide 0.1 % Ointment 1 applic TOPICAL BID RF: 0 acetylcysteine [NAC] 600 mg capsule 600 mg PO DAILY RF: 0 cod liver oil Capsule 1 cap PO DAILY RF: 0 carboxymethylcellulose sodium [Refresh Tears] 0.5 % drops 1 drp OP 4-6XD PRNRF: 0 bisacodyl [Dulcolax (bisacodyl)] 5 mg tablet,delayed release (DR/EC) 5 mg PO DAILY PRNRF: 0 metoprolol succinate 50 mg tablet extended release 24 hr 50 mg PO DAILY RF: 0 citalopram 20 mg tablet 10 mg PO QHS RF: 0 diclofenac sodium [Voltaren] 1 % gel 2 g topical QID RF: 0 ranolazine [Ranexa] 500 mg tablet extended release 12 hr 500 mg PO BID RF: 0 polyethylene glycol 3350 [Miralax] 17 GM powder in packet 17 g PO DAILY PRNQty: 255 RF: 0 nitroglycerin [Nitrostat] 0.4 MG tablet, sublingual 0.4 mg Sublingual as directed RF: 0 docusate sodium [Dulcolax Stool Softener (dss)] 100 MG capsule 100 mg PO DAILY PRNRF: 0 Levemir FlexTouch U-100 Insuln 100 UNIT/1 ML insulin pen 80 units subcut BID RF: 0 riboflavin (vitamin B2) [Vitamin B-2] 100 mg tablet 400 mg PO DAILY RF: 0 topiramate [Topamax] 25 mg capsule, sprinkle 75 mg PO HS RF: 0 levothyroxine 50 MCG tablet 50 mcg PO DAILY@0730 RF: 0 allopurinol 300 MG tablet 300 mg PO DAILY RF: 0 quetiapine [Seroquel] 300 MG tablet 300 mg PO HS RF: 0 rosuvastatin [Crestor] 20 MG tablet 20 mg PO HS RF: 0 metformin [Glucophage] 1,000 mg Tablet 1,000 mg PO BID RF: 0 lisinopril 20 mg Tablet 30 mg PO DAILY RF: 0 potassium chloride 10 mEq Tablet Extended Release 10 meq PO DAILY RF: 0 isosorbide mononitrate 60 mg tablet extended release 24 hr 90 mg PO DAILY RF: 0 lidocaine [Lidoderm] 1 PATCH patch 1 patch Topical Q24H Qty: 4 RF: 0 methocarbamol 500 mg tablet 500 mg PO Q6H PRN (Reason: muscle spasm) Qty: 14 RF: 0 hydrocodone-acetaminophen 5-325 mg tablet 1 tab PO Q6H PRN (Reason: pain) Qty: 10 RF: 0 tramadol 50 mg tablet 50 mg PO .Q6HRS PRNRF: 0 tramadol 50 mg tablet 50 mg PO TID PRN (Reason: pain) Qty: 10 RF: 0 gabapentin 300 mg capsule 300 mg PO HS RF: 0 cholecalciferol (vitamin D3) [Vitamin D3] 1,000 unit Tablet 1,000 unit PO DAILY RF: 0 pantoprazole [Protonix] 40 mg tablet,delayed release (DR/EC) 40 mg PO DAILY Qty: 30 RF: 0 magnesium 250 mg Tablet 400 mg PO DAILY RF: 0 Victoza 2-Thanh 0.6 mg/0.1 mL (18 mg/3 mL) pen injector 1.8 mg SUBCUT HS RF: 0 Discharge Instructions Instructions: Chest Pain (ED) Additional Instructions: At this time troponins x2 are within normal limits EKG is unchanged from previous chest x-ray is within normal limits. An outpatient stress test was ordered, they will call you for an appointment. Please call PCP and/or Dr. Pappas on Wednesday morning and or primary care provider to schedule an appointment within the next 3 to 5 days. Discussed scheduling an echocardiogram. Follow up with primary care provider in 3-5 days. Return to ED sooner if any worsening or concerns. Increase oral fluids. If recurrent chest pain relieved by nitro occurs please return to the emergency department for further evaluation. Referrals: Alisa Ramirez MD [Primary Care Provider] - Sergio Pappas MD [MD CONSULTING PHYSICIAN] - Medical Decision Making 70-year-old male with a past medical history of coronary artery disease, CABG, anemia, subdural hematoma, depression, type 2 diabetes, GERD, hyperlipidemia, hypertension, hypothyroidism presents to the ER with chief complaint of chest pain which occurred approximately 20 minutes prior to arrival while watching TV. He took one nitroglycerin sublingual and had some relief. He describes the pain as sharp stabbing radiates down his left arm. Associated with some mild diaphoresis denies nausea or shortness of breath. Upon initial examination patient is complaining of a headache and 3 out of 10 left sided chest pain/shoulder pain. No other associated symptoms. EKG was reviewed by [facility] Enriquez ER attending, old EKG available for review no significant change no ST elevation. Please see her official report and review. Cardiac work-up including serial troponins, chest x-ray 324 mg aspirin and one sublingual nitro ordered at this time. CBC shows no leukocytosis hemoglobin 11.5 hematocrit 33.9, sodium one thirty-nine potassium 3.7 anion gap 11.8, BUN seventeen creatinine 1.5 GFR forty-six glucose two eleven calcium 8.3 initial troponin within normal limits. Serial troponin pending at this time. 2144: Patient reevaluation, alert and oriented on monitor no complaints of chest pain at this time. Imaging protocol: XR of the chest. Views: 2 views. Total images: 2 COMPARISON: CR XR RIBS LT W PA LAT CHEST 10/16/2020 12:40 PM FINDINGS: Lungs: Unremarkable. No consolidation. Pleural spaces: Unremarkable. No pleural effusion. No pneumothorax. Heart/Mediastinum: Unremarkable. No cardiomegaly. Bones/joints: Median sternotomy wires are aligned and intact. IMPRESSION: No acute cardiopulmonary abnormality. Repeat troponin within normal limits at this time do feel patient is reasonable for discharge home I will order an outpatient stress test and stress the importance of cardiology follow-up and or PCP follow-up to schedule an outpatient echocardiogram. Patient is remained hemodynamically stable throughout stay, alert and oriented this text was generated using [employer] dictation system, please disregard any oddities of phrase or misspellings. HPI General Date/Time Provider Initiated Documentation: 01/05/21 19:01. Limitations to Documentation: no limitations. Information obtained by: patient, RN notes reviewed and old records reviewed. HPI Narrative: 70-year-old male with a past medical history of coronary artery disease, CABG, anemia, subdural hematoma, depression, type 2 diabetes, GERD, hyperlipidemia, hypertension, hypothyroidism presents to the ER with chief complaint of chest pain which occurred approximately 20 minutes prior to arrival while watching TV. He took one nitroglycerin sublingual and had some relief. He describes the pain as sharp stabbing radiates down his left arm. Associated with some mild diaphoresis denies nausea or shortness of breath. Upon initial examination patient is complaining of a headache and 3 out of 10 left sided chest pain/shoulder pain. No other associated symptoms. Related Data Home Medications Medication Instructions Recorded Confirmed allopurinol 300 mg PO DAILY 01/24/13 01/05/21 levothyroxine 50 mcg PO DAILY@0730 01/24/13 01/05/21 quetiapine [Seroquel] 300 mg PO HS 01/24/13 01/05/21 rosuvastatin [Crestor] 20 mg PO HS 03/22/17 01/05/21 docusate sodium [Dulcolax Stool 100 mg PO DAILY PRN 04/08/17 01/05/21 Softener (dss)] nitroglycerin [Nitrostat] 0.4 mg SUBLINGUAL as directed 04/08/17 01/05/21 polyethylene glycol 3350 [Miralax] 17 g PO DAILY PRN #255 gm 04/08/17 01/05/21 Levemir FlexTouch U-100 Insuln 80 units SUBCUT BID 08/04/17 01/05/21 gabapentin 300 mg capsule 300 mg PO HS cap 07/27/18 01/05/21 cholecalciferol (vitamin D3) 1,000 unit PO DAILY 11/11/18 01/05/21 [Vitamin D3] metformin [Glucophage] 1,000 mg PO BID 03/08/19 01/05/21 riboflavin (vitamin B2) 100 mg 400 mg PO DAILY tab 03/28/19 01/05/21 tablet topiramate 25 mg sprinkle capsule 75 mg PO HS cap 03/28/19 01/05/21 bisacodyl 5 mg tablet,delayed 5 mg PO DAILY PRN tab 04/17/19 01/05/21 release carboxymethylcellulose sodium 0.5 1 drp OP 4-6XD PRN 04/17/19 01/05/21 % eye drops cod liver oil 1 cap PO DAILY 04/17/19 01/05/21 pantoprazole [Protonix] 40 mg PO DAILY #30 tab 04/25/19 01/05/21 metoprolol succinate 50 mg 50 mg PO DAILY 05/10/19 01/05/21 tablet,extended release 24 hr acetylcysteine 600 mg capsule 600 mg PO DAILY cap 05/16/19 01/05/21 citalopram 20 mg tablet 10 mg PO QHS tab 05/16/19 01/05/21 lisinopril 30 mg PO DAILY 05/24/19 01/05/21 magnesium 400 mg PO DAILY 07/07/19 01/05/21 diclofenac sodium 1 % topical gel 2 g TOPICAL QID 04/30/20 01/05/21 ranolazine 500 mg tablet,extended 500 mg PO BID 04/30/20 01/05/21 release,12 hr Victoza 2-Thanh 1.8 mg SUBCUT HS 06/19/20 01/05/21 isosorbide mononitrate 90 mg PO DAILY 09/18/20 01/05/21 potassium chloride 10 meq PO DAILY 09/18/20 01/05/21 lidocaine [Lidoderm] 1 patch TOPICAL Q24H #4 ea 10/14/20 01/05/21 hydrocodone-acetaminophen 1 tab PO Q6H PRN #10 tab 11/07/20 01/05/21 methocarbamol 500 mg PO Q6H PRN #14 tab 11/07/20 01/05/21 triamcinolone acetonide 1 applic TOPICAL BID 11/13/20 01/05/21 tramadol 50 mg PO .Q6HRS PRN 12/27/20 01/05/21 tramadol 50 mg PO TID PRN #10 tab 01/04/21 01/05/21 Previous Rx's Medication Instructions Recorded pantoprazole [Protonix] 40 mg PO DAILY #30 tab 04/25/19 lidocaine [Lidoderm] 1 patch TOPICAL Q24H #4 ea 10/14/20 hydrocodone-acetaminophen 1 tab PO Q6H PRN #10 tab 11/07/20 methocarbamol 500 mg PO Q6H PRN #14 tab 11/07/20 tramadol 50 mg PO TID PRN #10 tab 01/04/21 Allergies Allergy/AdvReac Type Severity Reaction Status Date / Time amoxicillin Allergy Severe breathing Unverified 01/05/21 19:39 difficuty and vomiting Penicillins Allergy Intermediate Skin Rash Unverified 01/05/21 19:39 sulfamethoxazole Allergy Intermediate Skin Rash Unverified 01/05/21 19:39 [From Bactrim] trimethoprim [From Bactrim] Allergy Intermediate Skin Rash Unverified 01/05/21 19:39 oxycodone HCl [From Percocet] AdvReac Severe Contraindic Unverified 01/05/21 19:39 ated oxycodone terephthalate AdvReac Severe Contraindic Unverified 01/05/21 19:39 [From Percodan] ated General Stated Complaint: Chest Pain MADELIN: 2 Review of Systems Narrative: Constitutional: Negative for weight loss, alert and oriented, well groomed, normal body habitus, appears comfortable. Reports mild diaphoresis HEENT: Denies trauma, blurry vision, nasal discharge, sore throat, trouble swallowing. Chest: Denies palpitations, irregular rhythm, positive chest pain radiates down left shoulder. Respiratory: Denies Shortness of breath, cough, hemoptysis. GI: Denies abdominal pain, nausea, vomiting, diarrhea, constipation. : Denies dysuria, hematuria, flank pain, rectal bleeding. Neuro: Denies dizziness, blurry vision, weakness, syncope, or facial numbness. Reports headache status post nitro self administration Hematologic: Denies easy bruising, intolerance to heat or cold, hair loss. [facility] Medical History Anemia, iron deficiency CAD (coronary artery disease) Chronic low back pain Chronic subdural hematoma Colon polyps Constipation, chronic Depression Diastasis recti DM type 2 (diabetes mellitus, type 2) Fatty liver GERD (gastroesophageal reflux disease) Gout H/O alcohol abuse Headaches due to 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 Hx of deep venous thrombosis Hx of traumatic brain injury Hyperlipidemia Hypertension Hypothyroidism Knee pain, right Migraine headache Mild dementia MRSA infection Obstructive sleep apnea Pain in joint of right foot Pituitary abnormality Rathke's pouch cyst Recurrent UTI Rhinorrhea Right sided weakness Tinea pedis Urethral stricture Vitamin D deficiency Volvulus of cecum Surgical History Appendectomy (06/01/16) Colonoscopy - MAC 2010-5year f/u 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 electroconvulsive therapy Extraction of cataract facial lesion removal Repair of inguinal hernia (08/05/17) right inguinal hernia repair by Dr Arroyo on 08/05/17 Repair of umbilical hernia Social History Smoking/Tobacco Use Status: Never Smoking risk assessment performed?: Yes Alcohol Intake: former Drug use: Never Substance use type: does not use Household members: spouse Housing: house Pets and animals: Yes Pets and animals: dog(s) Do you feel safe at home: Yes Do you feel safe in your relationship?: Yes Exam Narrative Exam Narrative: Constitutional: Alert and oriented x3. Appears stated age. Normal body habitus. Head: Normocephalic, no trauma. Eyes: Pupils PERRLA, Red reflex noted, EOM's intact. Eyelids symmetrical without lesions, discharge, or swelling. ENT: Bilateral TM's WNL, External ear normal to inspection, no mastoid TTP, swelling, or erythema, Nasal turbinates WNL, no nasal discharge. Normal dentition, Posterior pharynx WNL, no exudate. Chest: RRR, Normal S1, S2, distal pulses intact. Chest pain is not reproducible with palpation. Resp: Lungs clear to auscultation bilaterally, no wheezes, rales, or rhonchi. Abdomen: Soft, nontender to palpation all four quadrants. Musculoskeletal: Unable to assess gait, 5/5 strength to all four extremities. Skin: No suspicious rashes or lesions. Capillary refill less than 2 sec. Neurologic: Cranial nerves II-XII intact. Alert and oriented x 3. DTR's intact. Hematologic/Lymphatic: No ecchymosis, no lymphadenopathy. Course Vital Signs Vital signs: Vital Signs Temperature 36.2 C L 01/05/21 19:10 Pulse 95 H 01/05/21 19:10 Respiratory Rate 22 01/05/21 19:10 Blood Pressure 151/84 H 01/05/21 19:10 Pulse Oximetry 98 01/05/21 19:10 Temperature 36.2 C L 01/05/21 19:10 Pulse 95 H 01/05/21 19:10 Respiratory Rate 22 01/05/21 19:10 Blood Pressure 151/84 H 01/05/21 19:10 Blood Pressure Position Supine 01/05/21 19:10 Pulse Oximetry 98 01/05/21 19:10 Oxygen Delivery Method Room Air 01/05/21 19:10 Oxygen Flow Rate 0 01/05/21 19:10 Pain Level 5 01/05/21 19:10
[2021-01-05 19:51] LABS: Abs Immature Grans 0.06 10^3/uL (0.0-0.06); Absolute Basophil Count 0.06 10^3/uL (0.0-0.2); Absolute Eosinophil Count 0.33 10^3/uL (0.0-0.7); Absolute Lymphocyte Count 1.01 10^3/uL (1.2-3.4); Absolute Monocyte Count 0.64 10^3/uL (0.1-0.8); Absolute Neutrophil Count 6.77 10^3/uL (1.2-6.7); Basophils % 0.7; Eosinophils % 3.7; HCT 33.9 % (40.0-50.0); HGB 11.5 g/dL (13.5-17.5); Immature Grans % 0.7; Lymphocytes % 11.4; MCH 29.2 pg (27.0-33.0); MCHC 33.9 % (32.0-36.0); MPV 8.7 fL (8.0-11.0); Monocytes % 7.2; Neutrophils % 76.3; Nucleated RBC 0 %; Platelet Count 180 10^3/uL (130-400); RBC 3.94 10^6/uL (4.36-5.78); RDW 14.1 % (11.8-14.1); RDW-SD 43.8 fL; WBC 8.87 10^3/uL (4.4-10.8)
[2021-01-05 20:16] LABS: ALT 18 U/L (16-63); AST 10 U/L (15-37); Albumin 3.5 g/dL (3.4-5.0); Alkaline Phosphatase 71 U/L (46-116); Anion Gap 11.8 mmol/L (3-11); BUN 17 mg/dL (7-18); Bilirubin, Total 0.5 mg/dL (0.2-1.0); CO2 21.2 mmol/L (21.0-32.0); CREATININE 1.5 mg/dL (0.70-1.30); Calcium 8.3 mg/dL (8.5-10.1); Chloride 106 mmol/L (98-107); Estimated GFR 46.13 (mL/min/1.73m2); Glucose 211 mg/dL (74-106); Magnesium 1.9 mg/dL (1.8-2.4); Potassium 3.7 mmol/L (3.5-5.1); Sodium 139 mmol/L (136-145); Total Protein 7.1 g/dL (6.4-8.2)
[2021-01-05 20:26] LABS: Troponin I < 0.05 ng/mL (<0.06)
[2021-01-05] MEDS: Aspirin 81 MG CHEW 324 MG CH (20:44)
[2021-01-05] MEDS: Acetaminophen 325 MG TAB 650 MG PO (20:45)
[2021-01-05] MEDS: nitroGLYcerin 0.4 MG TAB SL (20:46)
[2021-01-05] MEDS: Normal Saline 1,000 ML 100 ML IV (20:47)
--- NOTE | 2021-01-05 21:14 | DI.VRAD_ITS ---
PROCEDURE INFORMATION: Exam: XR Chest Exam date and time: 01/05/2021 7:46 PM Age: 70 years old Clinical indication: Other: Chest pain TECHNIQUE: Imaging protocol: XR of the chest. Views: 2 views. Total images: 2 COMPARISON: CR XR RIBS LT W PA LAT CHEST 10/16/2020 12:40 PM FINDINGS: Lungs: Unremarkable. No consolidation. Pleural spaces: Unremarkable. No pleural effusion. No pneumothorax. Heart/Mediastinum: Unremarkable. No cardiomegaly. Bones/joints: Median sternotomy wires are aligned and intact. IMPRESSION: No acute cardiopulmonary abnormality. Dictated and Authenticated by: Iman Jarquin MD. Ordering:TARI Pettit MD
[2021-01-05 22:45] LABS: Troponin I < 0.05 ng/mL (<0.06)
[2021-01-05 23:08] LABS: Source Nasal/Nares
[2021-01-05 23:58] LABS: COVID-19 PCR Negative (Negative)
== END 2021-01-05 23:20 | disposition home or self-care (01) ==
PROVIDERS: Emergency Provider Registered Nurse Emergency; PCP Family Medicine
DX: R07.89 Other chest pain (principal); I25.10 Atherosclerotic heart disease of native coronary artery without angina pectoris; Z95.1 Presence of aortocoronary bypass graft; Z20.822 Contact with and (suspected) exposure to COVID-19; Z03.818 Encounter for observation for suspected exposure to other biological agents ruled out
CPT/HCPCS: 36415; 80053; 87635; 93005; 99285; 71046; 83735; 84484; 85025; 93010; 99284

== ENCOUNTER 2021-01-06 22:59 | Inpatient (IN) | payer MEDICARE, OTHER, SELFPAY ==
[2021-01-06] VITALS (10 sets, daily range): BP systolic 142–157; BP diastolic 78–87; PULSE 88–92; RESP 17–23; TEMP 36.6; O2SAT 97–99
--- NOTE | 2021-01-06 23:00 | RT.EKG_ITS ---
APPROVED REPORT Exam: Resting ECG Reason for Exam: Chest pain Patient Location: E HR:85 bpm ECG Measurements Heart Rate 85 AXIS WV 127 P 49 QRSd 88 QRS 18 QT 437 T 179 QTc 521 Conclusion Sinus rhythm...normal P axis, V-rate 60- 99 Nonspecific T abnormalities, diffuse leads...T <-0.10mV, ant/lat/inf Prolonged QT interval...QTc >500mS Physician: no stemi, unchanged
--- NOTE | 2021-01-06 23:15 | DI.RAD_ITS ---
Exam(s) XR PORTABLE CHEST AP EXAM: XR PORTABLE CHEST AP CLINICAL HISTORY: left shoulder pain TECHNIQUE: 2D digital imaging was performed. COMPARISON: CR,XR XR CHEST 2V PA LATERAL from 01/05/2021 FINDINGS: LUNGS: Suboptimal inflation, but clear. No pleural abnormality seen. HEART: Status post CABG. Unchanged in size. MEDIASTINUM: Mildly tortuous aorta. BONES: Unremarkable. IMPRESSION: No acute pulmonary findings. DATA REPOSITORY: RADIATION DOSE DELIVERED:
[2021-01-06 23:27] LABS: Abs Immature Grans 0.05 10^3/uL (0.0-0.06); Absolute Basophil Count 0.08 10^3/uL (0.0-0.2); Absolute Eosinophil Count 0.32 10^3/uL (0.0-0.7); Absolute Lymphocyte Count 1.19 10^3/uL (1.2-3.4); Absolute Monocyte Count 0.68 10^3/uL (0.1-0.8); Absolute Neutrophil Count 4.83 10^3/uL (1.2-6.7); Basophils % 1.1; Eosinophils % 4.5; HCT 34.9 % (40.0-50.0); HGB 11.7 g/dL (13.5-17.5); Immature Grans % 0.7; Lymphocytes % 16.6; MCHC 33.5 % (32.0-36.0); MCV 86.6 fL (80-95); MPV 8.8 fL (8.0-11.0); Monocytes % 9.5; Neutrophils % 67.6; Nucleated RBC 0 %; Platelet Count 190 10^3/uL (130-400); RBC 4.03 10^6/uL (4.36-5.78); RDW 14.1 % (11.8-14.1); RDW-SD 44.7 fL; WBC 7.15 10^3/uL (4.4-10.8)
[2021-01-06 23:48] LABS: ALT 18 U/L (16-63); AST 13 U/L (15-37); Albumin 3.6 g/dL (3.4-5.0); Alkaline Phosphatase 72 U/L (46-116); Anion Gap 9.4 mmol/L (3-11); BUN 14 mg/dL (7-18); Bilirubin, Total 0.5 mg/dL (0.2-1.0); CO2 22.6 mmol/L (21.0-32.0); CREATININE 1.4 mg/dL (0.70-1.30); Calcium 8.2 mg/dL (8.5-10.1); Chloride 106 mmol/L (98-107); Estimated GFR 49.96 (mL/min/1.73m2); Glucose 193 mg/dL (74-106); NT-proBNP 277 pg/mL (<300); Potassium 3.8 mmol/L (3.5-5.1); Sodium 138 mmol/L (136-145); Total Protein 7.3 g/dL (6.4-8.2); Troponin I < 0.05 ng/mL (<0.06)
[2021-01-07] VITALS (168 sets, daily range): BP systolic 94–167; BP diastolic 52–95; PULSE 84–124; RESP 12–33; TEMP 36.2–36.9; O2SAT 93–99
--- NOTE | 2021-01-07 00:04 | W.ED.GENAD ---
Discharge Plan Disposition Patient Disposition: [facility] INPATIENT Condition: Serious Discharge Details Clinical Impression: Unstable angina Primary Care Provider: Alisa Ramirez ED Provider: Christopher Lua Home Meds and New Rx's Prescriptions: No Action triamcinolone acetonide 0.1 % Ointment 1 applic TOPICAL BID RF: 0 acetylcysteine [NAC] 600 mg capsule 600 mg PO BID RF: 0 cod liver oil Capsule 1 cap PO DAILY RF: 0 carboxymethylcellulose sodium [Refresh Tears] 0.5 % drops 1 drp OP 4-6XD PRNRF: 0 bisacodyl [Dulcolax (bisacodyl)] 5 mg tablet,delayed release (DR/EC) 5 mg PO DAILY PRNRF: 0 metoprolol succinate 50 mg tablet extended release 24 hr 50 mg PO DAILY RF: 0 citalopram 20 mg tablet 10 mg PO DAILY RF: 0 diclofenac sodium [Voltaren] 1 % gel 2 g topical QID RF: 0 ranolazine [Ranexa] 500 mg tablet extended release 12 hr 500 mg PO BID RF: 0 polyethylene glycol 3350 [Miralax] 17 GM powder in packet 17 g PO DAILY PRNQty: 255 RF: 0 nitroglycerin [Nitrostat] 0.4 MG tablet, sublingual 0.4 mg Sublingual as directed RF: 0 docusate sodium [Dulcolax Stool Softener (dss)] 100 MG capsule 100 mg PO DIRECTED PRNRF: 0 Levemir FlexTouch U-100 Insuln 100 UNIT/1 ML insulin pen 80 units subcut BID RF: 0 riboflavin (vitamin B2) [Vitamin B-2] 100 mg tablet 200 mg PO BID RF: 0 topiramate [Topamax] 25 mg capsule, sprinkle 75 mg PO DAILY RF: 0 levothyroxine 50 MCG tablet 50 mcg PO DAILY@0730 RF: 0 allopurinol 300 MG tablet 300 mg PO DAILY RF: 0 quetiapine [Seroquel] 300 MG tablet 300 mg PO HS RF: 0 rosuvastatin [Crestor] 20 MG tablet 20 mg PO HS RF: 0 metformin [Glucophage] 1,000 mg Tablet 1,000 mg PO BID RF: 0 lisinopril 20 mg Tablet 30 mg PO DAILY RF: 0 potassium chloride 10 mEq Tablet Extended Release 10 meq PO DAILY RF: 0 isosorbide mononitrate 60 mg tablet extended release 24 hr 60 mg PO DAILY RF: 0 lidocaine [Lidoderm] 1 PATCH patch 1 patch Topical Q24H Qty: 4 RF: 0 methocarbamol 500 mg tablet 500 mg PO Q6H PRN (Reason: muscle spasm) Qty: 14 RF: 0 hydrocodone-acetaminophen 5-325 mg tablet 1 tab PO Q6H PRN (Reason: pain) Qty: 10 RF: 0 tramadol 50 mg tablet 50 mg PO .Q6HRS PRNRF: 0 tramadol 50 mg tablet 50 mg PO TID PRN (Reason: pain) Qty: 10 RF: 0 docusate sodium [Colace] 100 mg Capsule 100 mg PO DAILY PRNRF: 0 gabapentin 300 mg capsule 300 mg PO DAILY RF: 0 cholecalciferol (vitamin D3) [Vitamin D3] 1,000 unit Tablet 1,000 unit PO DAILY RF: 0 pantoprazole [Protonix] 40 mg tablet,delayed release (DR/EC) 40 mg PO DAILY Qty: 30 RF: 0 magnesium 250 mg Tablet 400 mg PO DAILY RF: 0 Victoza 2-Thanh 0.6 mg/0.1 mL (18 mg/3 mL) pen injector 1.8 mg SUBCUT DAILY RF: 0 Medical Decision Making This is a 69-year-old male with past medical history significant for coronary artery disease status post two-vessel CABG (HOPE to LAD, SVG to RCA in 2016) multiple PCI's, ischemic cardiomyopathy with an ejection fraction of 50%, diabetes, hypertension, hyperlipidemia DONALDO and subdural hemorrhage x4, who presents today for evaluation of chest pain. The patient was here yesterday after he had new onset chest pain which she describes heaviness and tightness in the left chest radiating down his left arm. Took nitroglycerin, had troponins EKG and otherwise an appropriate and thorough work-up here yesterday all of which was unremarkable. He went home, and then 3 times today he has had a return of his chest pain all while at rest. The frequency has increased and the severity of the chest pain has he increased with each episode. Each episode has improved with nitroglycerin however each administration of nitroglycerin has improved the pain and chest pain the last per the patient. Most recent episode of chest pain was notably severe about 30 minutes prior to arrival. He did take a home nitroglycerin and came to the ER for further assessment. Upon arrival to the ED his chest pain was a 0 to a 1 out of 10. Patient denies any other complaints. He denies any recent exertional symptoms otherwise. Physical exam is relatively unremarkable. Chest x-ray negative for acute process. Differential is highest for unstable angina. EKG was performed and is relatively unchanged. Initial troponin unremarkable. Laboratory work-up stable. During the patient's stay his chest pain did return, we started him on a nitroglycerin drip, he is currently at 100 mcg which is managing his pain. I did contact [facility] cardiology Dr. Josue and discussed the case with him. He agrees on the need for transfer for cardiac catheterization, however unfortunately [facility] transfer center made it unequivocally clear that there were both no beds available for transfer at this time, and because of the current patient load they are not accepting patients for waiting list. I did discuss options of keeping the patient here tonight and even some tomorrow for transfer down there later because he has received most of his cardiac care there and it was again made clear that this would not be an option as stated by the transfer center. We will reach out to other tertiary care centers in the area for potential transfer. Also of note we did contact neurosurgery at [facility] for recommendations for contraindication for anticoagulation or dual antiplatelet therapy, they did not recommend starting antiplatelet therapy at this time but do recommend getting a baseline head CT. 2:24 AM We contacted the [facility] and discussed the case with their transfer center team. Unfortunately after a long discussion with a made it clear that they also do not have any beds available for transfer, and for that matter stated that there is not a list at this time to place patient. A recommended transfer elsewhere. I did ask who they are excepting if they are not excepting the patient on a nitroglycerin drip for unstable angina, they stated that they will take pediatric traumas, STEMI's, and intubated patient emergently. I discussed these findings with the patient, and informed him that I intended to contact other hospitals elsewhere for transfer, however the patient then made it unequivocally clear that his only desire is to go to [facility] and he does not want to be transferred anywhere else. I made it very clear that this is not recommended, but this is not ideal to stay overnight here for an extended period, and that this could potentially lead to a scenario that would lead to premature as we do not have the resources here to perform cardiac catheterization. Patient states that he understands this completely, but would like to stay here at [facility] until something opens up at [facility]. The patient is not appropriate to go home as he is on a nitroglycerin drip. Understanding the risk associated with staying here for a potentially prolonged period overnight I will admit the patient here. I did discuss this with Dr. Nguyen, and we discussed various options. Case was discussed with the patient again and he understands this scenario clearly. The patient is able to speak clearly. There is no demonstration of any slurring of speech. There is evidence of clear decision making capacity. I have extensively reviewed the treatment plan with the patient. I have addressed all patient concerns at this time. I have also discussed the plan with the admitting physician and they agree with the current assessment and plan and have agreed to assume responsibility for the patient. All parties demonstrate verbal understanding and agreement with our assessment and plan at this time. The documentation in this chart was dictated using [facility] dictation software. Please excuse any dictation errors. FINDINGS: Lungs: Unremarkable. No consolidation. Pleural spaces: Unremarkable. No pleural effusion. No pneumothorax. Heart/Mediastinum: Unremarkable. No cardiomegaly. Bones/joints: Unremarkable. IMPRESSION: No acute findings. Thank you for allowing us to participate in the care of your patient. Dictated and Authenticated by: Jose Soto MD 01/07/2021 12:15 AM Eastern Time ([place] & [place]) EKG: Sinus rhythm...normal P axis, V-rate 60- 99, Nonspecific T abnormalities, diffuse leads...T <-0.10mV, ant/lat/inf, Prolonged QT interval...QTc >500mS,Physician: no stemi, unchanged FINDINGS: Brain: Negative for hemorrhage. Chronic effacement of the left frontal lobe noted. This is unchanged from previous. Scattered areas of white matter hypoattenuation noted. No significant sulcal effacement observed. Cerebellum and brainstem are intact. Extra-axial space: Negative for hyperattenuating subdural hematoma. Low-attenuation 5 cm extraaxial collection again noted anterior to the left frontal lobe. Cerebral ventricles: No ventriculomegaly. Paranasal sinuses: Clear. Mastoid air cells: Clear. Bones/joints: Unremarkable. No acute fracture. Previous right frontal jaylin hole noted. Soft tissues: Unremarkable. IMPRESSION: 1. No acute intracranial abnormality. 2. Left frontal arachnoid cyst versus cystic hygroma, stable from previous. Thank you for allowing us to participate in the care of your patient. Dictated and Authenticated by: Yasmani Obregon MD 01/07/2021 2:20 AM Eastern Time ([place] & [place]) HPI General Date/Time Provider Initiated Documentation: 01/06/21 23:03. HPI Narrative: This is a 69-year-old male with past medical history significant for coronary artery disease status post two-vessel CABG (HOPE to LAD, SVG to RCA in 2016) multiple PCI's, ischemic cardiomyopathy with an ejection fraction of 50%, diabetes, hypertension, hyperlipidemia DONALDO and subdural hemorrhage x4, who presents today for evaluation of chest pain. The patient was here yesterday after he had new onset chest pain which she describes heaviness and tightness in the left chest radiating down his left arm. Took nitroglycerin, had troponins EKG and otherwise an appropriate and thorough work-up here yesterday all of which was unremarkable. He went home, and then 3 times today he has had a return of his chest pain all while at rest. The frequency has increased and the severity of the chest pain has he increased with each episode. Each episode has improved with nitroglycerin however each administration of nitroglycerin has improved the pain and chest pain the last per the patient. Most recent episode of chest pain was notably severe about 30 minutes prior to arrival. He did take a home nitroglycerin and came to the ER for further assessment. Upon arrival to the ED his chest pain was a 0 to a 1 out of 10. Patient denies any other complaints. He denies any recent exertional symptoms otherwise. Related Data Home Medications Medication Instructions Recorded Confirmed allopurinol 300 mg PO DAILY 01/24/13 01/06/21 levothyroxine 50 mcg PO DAILY@0730 01/24/13 01/06/21 quetiapine [Seroquel] 300 mg PO HS 01/24/13 01/07/21 rosuvastatin [Crestor] 20 mg PO HS 03/22/17 01/06/21 docusate sodium [Dulcolax Stool 100 mg PO DIRECTED PRN 04/08/17 01/07/21 Softener (dss)] nitroglycerin [Nitrostat] 0.4 mg SUBLINGUAL as directed 04/08/17 01/06/21 polyethylene glycol 3350 [Miralax] 17 g PO DAILY PRN #255 gm 04/08/17 01/07/21 Levemir FlexTouch U-100 Insuln 80 units SUBCUT BID 08/04/17 01/06/21 gabapentin 300 mg capsule 300 mg PO DAILY cap 07/27/18 01/06/21 cholecalciferol (vitamin D3) 1,000 unit PO DAILY 11/11/18 01/07/21 [Vitamin D3] metformin [Glucophage] 1,000 mg PO BID 03/08/19 01/06/21 riboflavin (vitamin B2) 100 mg 200 mg PO BID tab 03/28/19 01/07/21 tablet topiramate 25 mg sprinkle capsule 75 mg PO DAILY cap 03/28/19 01/07/21 bisacodyl 5 mg tablet,delayed 5 mg PO DAILY PRN tab 04/17/19 01/07/21 release carboxymethylcellulose sodium 0.5 1 drp OP 4-6XD PRN 04/17/19 01/07/21 % eye drops cod liver oil 1 cap PO DAILY 04/17/19 01/07/21 pantoprazole [Protonix] 40 mg PO DAILY #30 tab 04/25/19 01/06/21 metoprolol succinate 50 mg 50 mg PO DAILY 05/10/19 01/06/21 tablet,extended release 24 hr acetylcysteine 600 mg capsule 600 mg PO BID cap 05/16/19 01/07/21 citalopram 20 mg tablet 10 mg PO DAILY tab 05/16/19 01/06/21 lisinopril 30 mg PO DAILY 05/24/19 01/06/21 magnesium 400 mg PO DAILY 07/07/19 01/07/21 diclofenac sodium 1 % topical gel 2 g TOPICAL QID 04/30/20 01/07/21 ranolazine 500 mg tablet,extended 500 mg PO BID 04/30/20 01/07/21 release,12 hr Victoza 2-Thanh 1.8 mg SUBCUT DAILY 06/19/20 01/06/21 isosorbide mononitrate 60 mg PO DAILY 09/18/20 01/06/21 potassium chloride 10 meq PO DAILY 09/18/20 01/06/21 lidocaine [Lidoderm] 1 patch TOPICAL Q24H #4 ea 10/14/20 01/06/21 hydrocodone-acetaminophen 1 tab PO Q6H PRN #10 tab 11/07/20 01/06/21 methocarbamol 500 mg PO Q6H PRN #14 tab 11/07/20 01/06/21 triamcinolone acetonide 1 applic TOPICAL BID 11/13/20 01/07/21 tramadol 50 mg PO .Q6HRS PRN 12/27/20 01/07/21 tramadol 50 mg PO TID PRN #10 tab 01/04/21 01/07/21 docusate sodium [Colace] 100 mg PO DAILY PRN 01/07/21 01/07/21 Previous Rx's Medication Instructions Recorded pantoprazole [Protonix] 40 mg PO DAILY #30 tab 04/25/19 lidocaine [Lidoderm] 1 patch TOPICAL Q24H #4 ea 10/14/20 hydrocodone-acetaminophen 1 tab PO Q6H PRN #10 tab 11/07/20 methocarbamol 500 mg PO Q6H PRN #14 tab 11/07/20 tramadol 50 mg PO TID PRN #10 tab 01/04/21 Allergies Allergy/AdvReac Type Severity Reaction Status Date / Time amoxicillin Allergy Severe breathing Unverified 01/06/21 23:52 difficuty and vomiting Penicillins Allergy Intermediate Skin Rash Unverified 01/06/21 23:52 sulfamethoxazole Allergy Intermediate Skin Rash Unverified 01/06/21 23:52 [From Bactrim] trimethoprim [From Bactrim] Allergy Intermediate Skin Rash Unverified 01/06/21 23:52 oxycodone HCl [From Percocet] AdvReac Severe Contraindic Unverified 01/06/21 23:52 ated oxycodone terephthalate AdvReac Severe Contraindic Unverified 01/06/21 23:52 [From Percodan] ated General Stated Complaint: Chest Pain MADELIN: 2 Review of Systems All systems reviewed & are unremarkable except as noted in HPI and below PFSH Medical History Anemia, iron deficiency CAD (coronary artery disease) Chronic low back pain Chronic subdural hematoma Colon polyps Constipation, chronic Depression Diastasis recti DM type 2 (diabetes mellitus, type 2) Fatty liver GERD (gastroesophageal reflux disease) Gout H/O alcohol abuse Headaches due to 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 Hx of deep venous thrombosis Hx of traumatic brain injury Hyperlipidemia Hypertension Hypothyroidism Knee pain, right Migraine headache Mild dementia MRSA infection Obstructive sleep apnea Pain in joint of right foot Pituitary abnormality Rathke's pouch cyst Recurrent UTI Rhinorrhea Right sided weakness Tinea pedis Urethral stricture Vitamin D deficiency Volvulus of cecum Surgical History Appendectomy (06/01/16) Colonoscopy - MAC 2010-5year f/u 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 electroconvulsive therapy Extraction of cataract facial lesion removal Repair of inguinal hernia (08/05/17) right inguinal hernia repair by Dr Arroyo on 08/05/17 Repair of umbilical hernia Social History Smoking/Tobacco Use Status: Never Smoking risk assessment performed?: Yes Alcohol Intake: former Drug use: Never Substance use type: does not use Household members: spouse Housing: house Pets and animals: Yes Pets and animals: dog(s) Do you feel safe at home: Yes Do you feel safe in your relationship?: Yes Exam Narrative Exam Narrative: 1.Const: Well-nourished, Well-developed, appearing stated age 2.Eyes: PERRL, no conjunctival injection, and symmetrical lids. 3.ENT: Atraumatic external nose and ears. Moist MM. Neck: Symmetric, trachea midline, No thyromegaly. 4.CVS: +S1/S2, No murmurs or gallops. Peripheral pulses 2+ and equal in all extremities. Brisk capillary refill in all extremities. 5.RESP: Unlabored respiratory effort. Clear to auscultation bilaterally. No wheezes rales or rhonchi 6.GI: Soft, Nontender/Nondistended, No hepatosplenomegaly. No guarding or rebound. 7.MSK: Normocephalic/Atraumatic, Extremities w/o deformity or ttp No cyanosis or clubbing, Normal movement of all extremities, no calf tenderness. No tenderness to the left shoulder with movement. Patient is able to move the left upper extremity well without any difficulty. 8.Skin: Warm, Dry. No rashes or lesions. 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 Sensation grossly intact, no focal neurologic deficits. 10.Psych: (AAO) x3. Appropriate mood and affect Course Vital Signs Vital signs: Vital Signs Temperature 36.6 C 01/06/21 23:00 Pulse 89 01/06/21 23:00 Respiratory Rate 19 01/06/21 23:00 Blood Pressure 157/81 H 01/06/21 23:00 Pulse Oximetry 98 01/06/21 23:00 Temperature 36.6 C 01/06/21 23:00 Temperature Source Skin 01/06/21 23:00 Pulse 89 01/06/21 23:00 Respiratory Rate 20 01/06/21 23:48 Respiratory Effort Incrsd Work of Breathing 01/06/21 23:48 Blood Pressure 157/81 H 01/06/21 23:00 Pulse Oximetry 98 01/06/21 23:00 Oxygen Delivery Method Room Air 01/06/21 23:00 Oxygen Flow Rate 0 01/06/21 23:00 Lab/Test Results Lab/Test Results: Laboratory Tests Range/Units 01/06/21 01/06/21 23:11 23:11 WBC (4.4-10.8) 10^3/uL 7.15 RBC (4.36-5.78) 10^6/uL 4.03 L Hgb (13.5-17.5) g/dL 11.7 L Hct (40.0-50.0) % 34.9 L MCV (80-95) fL 86.6 MCH (27.0-33.0) pg 29.0 MCHC (32.0-36.0) % 33.5 RDW (11.8-14.1) % 14.1 Plt Count (130-400) 10^3/uL 190 MPV (8.0-11.0) fL 8.8 Immature Gran % 0.7 Neutrophils % 67.6 Lymphocytes % 16.6 Monocytes % 9.5 Eosinophils % 4.5 Basophils % 1.1 Nucleated RBC % % 0 Absolute Neutrophils (1.2-6.7) 10^3/uL 4.83 Absolute Lymphocytes (1.2-3.4) 10^3/uL 1.19 L Absolute Monocytes (0.1-0.8) 10^3/uL 0.68 Absolute Eosinophils (0.0-0.7) 10^3/uL 0.32 Absolute Basophils (0.0-0.2) 10^3/uL 0.08 Sodium (136-145) mmol/L 138 Potassium (3.5-5.1) mmol/L 3.8 Chloride (98-107) mmol/L 106 Carbon Dioxide (21.0-32.0) mmol/L 22.6 Anion Gap (3-11) mmol/L 9.4 BUN (7-18) mg/dL 14 Creatinine (0.70-1.30) mg/dL 1.4 H Estimated GFR/1.73 m2 (mL/min/1.73m2) 49.96 Glucose (74-106) mg/dL 193 H Calcium (8.5-10.1) mg/dL 8.2 L Total Bilirubin (0.2-1.0) mg/dL 0.5 AST (15-37) U/L 13 L ALT (16-63) U/L 18 Alkaline Phosphatase (46-116) U/L 72 Troponin I (<0.06) ng/mL < 0.05 NT-Pro-B Natriuret Pep (<300) pg/mL 277 Total Protein (6.4-8.2) g/dL 7.3 Albumin (3.4-5.0) g/dL 3.6 Critical Care Time Critical Care Time Critical Care Time: Yes Total Critical Care Time: 45 Attestation: Upon my evaluation, this patient had a high probability of imminent or life-threatening deterioration, which required my direct attention, intervention, and personal management. I have personally provided 45 minutes of critical care time exclusive of time spent on separately billable procedures. Time includes review of laboratory data, radiology results, discussion with consultants, and monitoring for potential decompensation. Interventions were performed as documented.
--- NOTE | 2021-01-07 00:15 | DI.VRAD_ITS ---
PROCEDURE INFORMATION: Exam: XR Chest Exam date and time: 01/06/2021 11:22 PM Age: 70 years old Clinical indication: Left-sided; Prior surgery; Surgery date: 6+ months; Surgery type: Cabg; Patient HX: Left sided chest pain/shoulder pain TECHNIQUE: Imaging protocol: XR of the chest. Views: 1 view. COMPARISON: CR XR CHEST 2V PA LATERAL 01/05/2021 8:35 PM FINDINGS: Lungs: Unremarkable. No consolidation. Pleural spaces: Unremarkable. No pleural effusion. No pneumothorax. Heart/Mediastinum: Unremarkable. No cardiomegaly. Bones/joints: Unremarkable. IMPRESSION: No acute findings. Dictated and Authenticated by: Jose Soto MD. Ordering:CHRISTINE White MD
--- NOTE | 2021-01-07 00:30 | DI.CT_ITS ---
Exam(s) CT HEAD WO EXAM: CT HEAD WO CLINICAL HISTORY: hx of subdurals, need to give heparin, eval. TECHNIQUE: Imaging Protocol: Axial computed tomography images with coronal and sagittal reformatted images were created and reviewed COMPARISON: CT ORBITS WITH CONTRAST from 08/09/2008 ORBITS WITH CONTRAST from 08/09/[address] WITHOUT CONTRAST from 08/09/[address] HEAD CERVICAL SPINE WO from 06/19/2020 FINDINGS: Ventricles and: Normal in size and morphology for the patient's age. Extra axial spaces: There has been no change in the asymmetric appearance of the increased CSF space at the left frontal lobe when compared with exams back to 2008. This likely represents an arachnoid cyst. Hemorrhage: None. Cerebral parenchyma: Asymmetry of the frontal lobes, otherwise normal. Midline shift: None. Brainstem/Cerebellum: Normal. Calvarium: Normal. Visualized Paranasal sinuses/Mastoids: Clear. Soft Tissues: Unremarkable. IMPRESSION: No acute intracranial process. RADIATION DOSE DELIVERED: 736.39mGy.cm Total DLP DATA REPOSITORY: All CT scans at this facility are submitted to the National Radiology Data Registry (NRDR) Dose Index Registry (DIR) with the [employer] ([employer]). RADIATION OPTIMIZATION: All CT scans at this facility use at least one of these dose optimization te chniques: automated exposure control; mA and/or kV adjustment per patient size (includes targeted exa ms where dose is matched to clinical indication); or iterative reconstruction.
[2021-01-07] MEDS: nitroGLYcerin in D5W 50 MG/250 ML BTL 30 MG IV (00:31)
--- NOTE | 2021-01-07 01:53 | HPE_ITS ---
Date of service: 01/07/21 Time of Service: 01:53 Assessment and Plan Assessment and plan (1) Chest pain: Status: Acute Assessment and plan: CP. Though conceivable this may be non-cardiac, the long h/o demonstrated cardiac disease makes it all but certain that we are in fact looking at ACS (viz, unstable angina). Due to bleeding issues our medical options are limited, but NTG drip is good temporizing choice. Would also consider titrating up beta yamilet as numbers are somewhat hyperdynamic. Could a lso consider increasing Ranolazine, though QTc somewhat prolonged. However I think that cardiac cath remains the definitive next step and will await availability for [place] to [facility]. Will trend out trops in meantime. Reviewed ADs, requests Full Code Qualifiers: Chest pain type: precordial pain Qualified Code(s): R07.2 - Precordial pain History of Present Illness History of Present Illness Chief Complaint: CP Narrative: 70 male with h/o CAD, s/p CABG x2, s/p multiple PCI, and h/o subdural bleed x4 and therefore not on antiplatelet or anticoagulation agents. Has h/o chronic and recurent CP generally controlled on antianginal regimen. Last visit with cardiology 08/11 and no change in program. Over past several days has been having frequent episodes of substernal CP radiating to LUE, episodes he describes as identical to prior anginal pain. These have been responding to SL NTG. Seen ER last evening, scheduled for stress test, but returns tonight with repeated and ongoing CP, partially responsive to NTG. In ER findings of note for neg trop and no acute changes on EKG. He was eventually started on NTG drip and currently is pain free. Case was reviewed with [facility] who agrees patient needs cath but there is no bed availability. NS advises baseline head CT but decision has been made at this point to forego blood thinners due to h/o SDH. [facility] contacted and also unable to accept in transfer and patient indicates he does not want to transfer any further afield. Accordingly he is admitted here for ongoing management pending availability of transfer for cath. Review of Systems All systems reviewed & are unremarkable except as noted in HPI and below PFSH Medical History Anemia, iron deficiency CAD (coronary artery disease) Chronic low back pain Chronic subdural hematoma Colon polyps Constipation, chronic Depression Diastasis recti DM type 2 (diabetes mellitus, type 2) Fatty liver GERD (gastroesophageal reflux disease) Gout H/O alcohol abuse Headaches due to 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 Hx of deep venous thrombosis Hx of traumatic brain injury Hyperlipidemia Hypertension Hypothyroidism Knee pain, right Migraine headache Mild dementia MRSA infection Obstructive sleep apnea Pain in joint of right foot Pituitary abnormality Rathke's pouch cyst Recurrent UTI Rhinorrhea Right sided weakness Tinea pedis Urethral stricture Vitamin D deficiency Volvulus of cecum Surgical History Appendectomy (06/01/16) Colonoscopy - MAC 2010-5year f/u 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 electroconvulsive therapy Extraction of cataract facial lesion removal Repair of inguinal hernia (08/05/17) right inguinal hernia repair by Dr Arroyo on 08/05/17 Repair of umbilical hernia Social History Smoking/Tobacco Use Status: Never Smoking risk assessment performed?: Yes Alcohol Intake: former Drug use: Never Substance use type: does not use Household members: spouse Housing: house Pets and animals: Yes Pets and animals: dog(s) Do you feel safe at home: Yes Do you feel safe in your relationship?: Yes Meds Allergies and Home Medications Allergies Allergy/AdvReac Type Severity Reaction Status Date / Time amoxicillin Allergy Severe breathing Unverified 01/06/21 23:52 difficuty and vomiting Penicillins Allergy Intermediate Skin Rash Unverified 01/06/21 23:52 sulfamethoxazole Allergy Intermediate Skin Rash Unverified 01/06/21 23:52 [From Bactrim] trimethoprim [From Bactrim] Allergy Intermediate Skin Rash Unverified 01/06/21 23:52 oxycodone HCl [From Percocet] AdvReac Severe Contraindic Unverified 01/06/21 23:52 ated oxycodone terephthalate AdvReac Severe Contraindic Unverified 01/06/21 23:52 [From Percodan] ated Home Medications Medication Instructions Recorded Confirmed Type allopurinol 300 mg PO DAILY 01/24/13 01/06/21 History levothyroxine 50 mcg PO DAILY@0730 01/24/13 01/06/21 History quetiapine [Seroquel] 300 mg PO HS 01/24/13 01/07/21 History rosuvastatin [Crestor] 20 mg PO HS 03/22/17 01/06/21 History docusate sodium [Dulcolax Stool 100 mg PO DIRECTED PRN 04/08/17 01/07/21 History Softener (dss)] nitroglycerin [Nitrostat] 0.4 mg SUBLINGUAL as directed 04/08/17 01/06/21 History polyethylene glycol 3350 [Miralax] 17 g PO DAILY PRN #255 gm 04/08/17 01/07/21 History Levemir FlexTouch U-100 Insuln 80 units SUBCUT BID 08/04/17 01/06/21 History gabapentin 300 mg capsule 300 mg PO DAILY cap 07/27/18 01/06/21 History cholecalciferol (vitamin D3) 1,000 unit PO DAILY 11/11/18 01/07/21 History [Vitamin D3] metformin [Glucophage] 1,000 mg PO BID 03/08/19 01/06/21 History riboflavin (vitamin B2) 100 mg 200 mg PO BID tab 03/28/19 01/07/21 History tablet topiramate 25 mg sprinkle capsule 75 mg PO DAILY cap 03/28/19 01/07/21 History bisacodyl 5 mg tablet,delayed 5 mg PO DAILY PRN tab 04/17/19 01/07/21 History release carboxymethylcellulose sodium 0.5 1 drp OP 4-6XD PRN 04/17/19 01/07/21 History % eye drops cod liver oil 1 cap PO DAILY 04/17/19 01/07/21 History pantoprazole [Protonix] 40 mg PO DAILY #30 tab 04/25/19 01/06/21 Rx metoprolol succinate 50 mg 50 mg PO DAILY 05/10/19 01/06/21 History tablet,extended release 24 hr acetylcysteine 600 mg capsule 600 mg PO BID cap 05/16/19 01/07/21 History citalopram 20 mg tablet 10 mg PO DAILY tab 05/16/19 01/06/21 History lisinopril 30 mg PO DAILY 05/24/19 01/06/21 History magnesium 400 mg PO DAILY 07/07/19 01/07/21 History diclofenac sodium 1 % topical gel 2 g TOPICAL QID 04/30/20 01/07/21 History ranolazine 500 mg tablet,extended 500 mg PO BID 04/30/20 01/07/21 History release,12 hr Victoza 2-Thanh 1.8 mg SUBCUT DAILY 06/19/20 01/06/21 History isosorbide mononitrate 60 mg PO DAILY 09/18/20 01/06/21 History potassium chloride 10 meq PO DAILY 09/18/20 01/06/21 History lidocaine [Lidoderm] 1 patch TOPICAL Q24H #4 ea 10/14/20 01/06/21 Rx hydrocodone-acetaminophen 1 tab PO Q6H PRN #10 tab 11/07/20 01/06/21 Rx methocarbamol 500 mg PO Q6H PRN #14 tab 11/07/20 01/06/21 Rx triamcinolone acetonide 1 applic TOPICAL BID 11/13/20 01/07/21 History tramadol 50 mg PO .Q6HRS PRN 12/27/20 01/07/21 History tramadol 50 mg PO TID PRN #10 tab 01/04/21 01/07/21 Rx docusate sodium [Colace] 100 mg PO DAILY PRN 01/07/21 01/07/21 History Exam Narrative Exam Narrative: 159/92, 86, 36.6, 21, 98% RA. HEENT atraumatic; neck supple; lungs clear; heart RRR w/o MRG; abdomen soft and NT; extremities w/o edema, puls es 2+/=; neuro Ox3, lucid, moves all 4s Results Labs Result diagrams: 01/06/21 23:11 01/06/21 23:11 Labs: Laboratory Results - last 24 hr 01/06/21 01/06/21 23:11 23:11 WBC 7.15 RBC 4.03 L Hgb 11.7 L Hct 34.9 L MCV 86.6 MCH 29.0 MCHC 33.5 RDW 14.1 Plt Count 190 MPV 8.8 Immature Gran % 0.7 Neutrophils % 67.6 Lymphocytes % 16.6 Monocytes % 9.5 Eosinophils % 4.5 Basophils % 1.1 Nucleated RBC % 0 Absolute Neutrophils 4.83 Absolute Lymphocytes 1.19 L Absolute Monocytes 0.68 Absolute Eosinophils 0.32 Absolute Basophils 0.08 Sodium 138 Potassium 3.8 Chloride 106 Carbon Dioxide 22.6 Anion Gap 9.4 BUN 14 Creatinine 1.4 H Estimated GFR/1.73 m2 49.96 Glucose 193 H Calcium 8.2 L Total Bilirubin 0.5 AST 13 L ALT 18 Alkaline Phosphatase 72 Troponin I < 0.05 NT-Pro-B Natriuret Pep 277 Total Protein 7.3 Albumin 3.6 Last Vital Signs Temp 36.6 C 01/06/21 23:00 Pulse 86 01/07/21 00:36 Resp 21 01/07/21 00:36 BP 159/92 H 01/07/21 00:36 Pulse Ox 98 01/07/21 00:36
--- NOTE | 2021-01-07 02:21 | DI.VRAD_ITS ---
PROCEDURE INFORMATION: Exam: CT Head Without Contrast Exam date and time: 01/07/2021 12:42 AM Age: 70 years old Clinical indication: Screening exam; Patient HX: HX of subdurals, need to give heparin, eval TECHNIQUE: Imaging protocol: Computed tomography of the head without contrast. Radiation optimization: All CT scans at this facility use at least one of these dose optimization techniques: automated exposure control; mA and/or kV adjustment per patient size (includes targeted exams where dose is matched to clinical indication); or iterative reconstruction. COMPARISON: CT HEAD CERVICAL SPINE WO 06/19/2020 6:46 PM FINDINGS: Brain: Negative for hemorrhage. Chronic effacement of the left frontal lobe noted. This is unchanged from previous. Scattered areas of white matter hypoattenuation noted. No significant sulcal effacement observed. Cerebellum and brainstem are intact. Extra-axial space: Negative for hyperattenuating subdural hematoma. Low-attenuation 5 cm extra-axial collection again noted anterior to the left frontal lobe. Cerebral ventricles: No ventriculomegaly. Paranasal sinuses: Clear. Mastoid air cells: Clear. Bones/joints: Unremarkable. No acute fracture. Previous right frontal jaylin hole noted. Soft tissues: Unremarkable. IMPRESSION: 1. No acute intracranial abnormality. 2. Left frontal arachnoid cyst versus cystic hygroma, stable from previous. Dictated and Authenticated by: Yasmani Obregon MD. Ordering:CHRISTINE White MD
[2021-01-07 03:03] LABS: Source Nasal/Nares
[2021-01-07 03:51] LABS: Troponin I < 0.05 ng/mL (<0.06)
[2021-01-07 03:53] LABS: COVID-19 PCR Negative (Negative)
[2021-01-07] MEDS: traMADol 50 MG TAB PO ×2 (04:02→19:40)
[2021-01-07] MEDS: Levothyroxine 50 MCG TAB PO (05:08)
[2021-01-07] MEDS: Acetaminophen 325 MG TAB 650 MG PO (05:30)
[2021-01-07] MEDS: HYDROcodone 5/Acetaminophen 325 TAB PO ×3 (06:32→23:24)
[2021-01-07] MEDS: Methocarbamol 500 MG TAB PO ×2 (06:37→15:07)
--- NOTE | 2021-01-07 06:46 | NUR.NOTE ---
NPt c/o chest pain at 0628 increased Nitro drip to !!) mcg/min. Pt c/o lt chest pain 09/28. pain decreased and is gone after increasing Nitro drip.ursing Note:
[2021-01-07 08:23] LABS: Troponin I < 0.05 ng/mL (<0.06)
[2021-01-07] MEDS: Insulin Aspart 300 UNITS/3 ML PEN SC ×2 (08:44→12:08)
[2021-01-07] MEDS: Polyethylene Glycol 3350 17 GM PACKET PO (08:48)
[2021-01-07] MEDS: Allopurinol 300 MG TAB PO (08:48)
[2021-01-07] MEDS: metFORMIN 500 MG TAB 1000 MG PO ×2 (08:49→17:39)
[2021-01-07] MEDS: Docusate Sodium 100 MG CAP PO ×2 (08:49→19:41)
[2021-01-07] MEDS: Potassium Chloride 10 MEQ CAPCR PO (08:49)
[2021-01-07] MEDS: Gabapentin 300 MG CAP PO (08:49)
[2021-01-07] MEDS: Magnesium Oxide 400 MG TAB PO (08:49)
[2021-01-07] MEDS: Pantoprazole 40 MG TABCR PO (08:49)
[2021-01-07] MEDS: Topiramate 25 MG TAB 75 MG PO (08:50)
[2021-01-07] MEDS: Lisinopril 20 MG TAB 30 MG PO (08:50)
[2021-01-07] MEDS: Citalopram 20 MG TAB 10 MG PO (08:50)
[2021-01-07] MEDS: Metoprolol CR 50 MG TABCR PO (08:50)
[2021-01-07] MEDS: nitroGLYcerin in D5W 50 MG/250 ML BTL 33 MG IV (09:15)
--- NOTE | 2021-01-07 10:19 | PDOC.CMIN ---
- If Service Date Differs Date of service: 01/07/21 Time of Service: 10:19 Care Management Initial Assess REASON FOR HOSPITALIZATION:: chest pain PAST MEDICAL HISTORY/PAST SURGICAL HISTORY:: Medical History . Anemia, iron deficiency. CAD (coronary artery disease). Chronic low back pain. Chronic subdural hematoma. Colon polyps. Constipation, chronic. Depression. Diastasis recti. DM type 2 (diabetes mellitus, type 2). Fatty liver. GERD (gastroesophageal reflux disease). Gout. H/O alcohol abuse. Headaches due to 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. Hx of deep venous thrombosis. Hx of traumatic brain injury. Hyperlipidemia. Hypertension. Hypothyroidism. Knee pain, right. Migraine headache. Mild dementia. MRSA infection. Obstructive sleep apnea. Pain in joint of right foot. Pituitary abnormality. Rathke's pouch cyst. Recurrent UTI. Rhinorrhea. Right sided weakness. Tinea pedis. Urethral stricture. Vitamin D deficiency. Volvulus. of cecum. Surgical History . Appendectomy (06/01/16). Colonoscopy - MAC. 2009-5year f/u. Coronary Artery Bypass Gaft (CABG). 04/2016. electroconvulsive therapy. Extraction of cataract. facial lesion removal. Repair of inguinal hernia (08/05/17). right inguinal hernia repair by Dr Arroyo on 08/05/17. Repair of umbilical hernia PREVIOUS FUNCTIONAL STATUS/SOCIAL/FAMILY SUPPORTS:: Fredo lives in [place] with his of 50 years, Brittany. Their adult son, Andrew also lives at home with them. Fredo is retired and independent with ADL's. He uses a walker and a quad cane for ambulation and has a urinal. Fredo does not receive any services at home but his son and provide a lot of support. He no longer drives but his and son provide transportation. CURRENT FUNCTIONAL STATUS:: Fredo continues to await a bed at [facility]. He had another episode of chest pain today and nursing has asked that he not be disturbed at this time. ADVANCE DIRECTIVES:: On file. Brittany ASKEW Has patient been provided with info about the portal/API?: Yes Did the patient sign up for the portal?: No INSURANCE COVERAGE / FINANCIAL ISSUES:: Medicare. [employer] CURRENT HOME/COMMUNITY SERVICES/EQUIPMENT:: walker, quad cane and urinal PRIMARY CARE PHYSICIAN:: Alisa Ramirez POTENTIAL DISCHARGE NEEDS:: [facility] PATIENT/FAMILY EDUCATION NEEDS:: patient is transferring to [facility] for a cardiac cath ANTICIPATED BARRIERS TO DISCHARGE:: lack of tertiary care bed availability TRANSPORTATION:: via ambulance copordinated by nursing sewing department supervisor PLAN:: Fredo will be transferred to [facility] as soon a s a bed is available. He will transport via EMS coordinated by nursing suoervisor.
--- NOTE | 2021-01-07 13:30 | RT.EKG_ITS ---
APPROVED REPORT Exam: Resting ECG Reason for Exam: chest pain Patient Location: I HR:96 bpm ECG Measurements Heart Rate 96 AXIS MA 126 P 44 QRSd 88 QRS 16 QT 348 T 201 QTc 439 Conclusion Sinus rhythm...normal P axis, V-rate 60- 99 Atrial premature complex...SV complex w/ short R-R interval Nonspecific T abnormalities, diffuse leads...T <-0.10mV, ant/lat/inf
[2021-01-07] MEDS: MORPHine 2 MG/ML SYR IVP (14:16)
[2021-01-07] MEDS: Normal Saline Flush 10 ML SYR (14:17)
[2021-01-07 14:19] LABS: Troponin I < 0.05 ng/mL (<0.06)
[2021-01-07] MEDS: Lidocaine 5% Patch 1 PATCH TP (14:43)
[2021-01-07 16:01] LABS: Troponin I < 0.05 ng/mL (<0.06)
[2021-01-07] MEDS: nitroGLYcerin in D5W 50 MG/250 ML BTL 36 MG IV (17:00)
[2021-01-07] MEDS: Rosuvastatin 10 MG TAB 20 MG PO (19:40)
[2021-01-07] MEDS: QUEtiapine 300 MG TAB PO (21:14)
[2021-01-07] MEDS: nitroGLYcerin in D5W 50 MG/250 ML BTL 39 MG IV (23:34)
[2021-01-08] VITALS (180 sets, daily range): BP systolic 93–161; BP diastolic 44–103; PULSE 85–118; RESP 8–50; TEMP 36–37; O2SAT 93–100
[2021-01-08] MEDS: Methocarbamol 500 MG TAB PO (02:41)
[2021-01-08] MEDS: Acetaminophen 325 MG TAB 650 MG PO (02:41)
[2021-01-08] MEDS: MORPHine 2 MG/ML SYR IVP ×2 (03:23→22:15)
[2021-01-08] MEDS: nitroGLYcerin in D5W 50 MG/250 ML BTL 37.5 MG IV ×2 (06:00→13:02)
[2021-01-08] MEDS: Levothyroxine 50 MCG TAB PO (06:05)
[2021-01-08] MEDS: Citalopram 20 MG TAB 10 MG PO (08:25)
[2021-01-08] MEDS: Allopurinol 300 MG TAB PO (08:25)
[2021-01-08] MEDS: Gabapentin 300 MG CAP PO (08:26)
[2021-01-08] MEDS: Lisinopril 20 MG TAB 30 MG PO (08:29)
[2021-01-08] MEDS: Magnesium Oxide 400 MG TAB PO (08:30)
[2021-01-08] MEDS: metFORMIN 500 MG TAB 1000 MG PO ×2 (08:30→17:09)
[2021-01-08] MEDS: Pantoprazole 40 MG TABCR PO (08:31)
[2021-01-08] MEDS: Metoprolol CR 50 MG TABCR PO (08:31)
[2021-01-08] MEDS: Potassium Chloride 10 MEQ CAPCR PO (08:35)
[2021-01-08] MEDS: Topiramate 25 MG TAB 75 MG PO (08:37)
--- NOTE | 2021-01-08 11:38 | NUR.NOTE ---
assistant product manager meets with patient.Nursing Note:
--- NOTE | 2021-01-08 12:28 | NUR.NOTE ---
Patient up in chair enjoying eating his lunch.Nursing Note:
--- NOTE | 2021-01-08 14:43 | PDOC.CMDIS ---
- If Service Date Differs Date of service: 01/08/21 Time of Service: 14:43 Care Management Discharge Reason for Hospitalization: chest pain
--- NOTE | 2021-01-08 16:09 | PDOC.CMPRO ---
- If Service Date Differs Date of service: 01/08/21 Time of Service: 16:09 Care Management Progress Note S/O: Fredo was sitting up in a chair when CM met with him. He was pleasant and engaged easily with CM. Fredo expressed frustration with his situation. He was [place] to be transferred [place] [facility] [place] but no beds were available. He has been told there will likely not be a bed today either. Fredo shared that he is considering just discharging from [facility] as he does not have any symptoms and feels well. He verbalized that he feels he is just wasting his time here. A: Fredo is a 70 year old man admitted on 01/07/21 with unstable angina. P: Fredo is waiting to be transferred to [facility] [place] further cardiac workup. He will follow up with his community providers and plan of care. If he does go to [facility] he will transport via ambulance coordinated by nursing production welding supervisor. CM will continue to support Fredo and his discharge planning needs.
--- NOTE | 2021-01-08 17:00 | PGE_ITS ---
Date of Service Date of service: 01/08/21 Time of Service: 17:01 Assessment and Plan Assessment and plan (1) Unstable angina: Status: Acute Assessment and plan: He has been accepted for admission at [facility]; waiting for bed availability. Cont nitro drip. No AC d/t h/o subdural bleed x 4. Cont BB, statin and Ranexa (2) Chronic subdural hematoma: Status: Chronic Assessment and plan: Avoiding anticoagulation and antiplatlets. (3) Diabetes mellitus type 2 in obese: Status: Chronic Assessment and plan: Insulin Levemir and SS insulin correction dosing. Controlled. Cont to Monitor Subjective Subjective Patient reports: no new complaints, feels better and afebrile; denies diarrhea, nausea and vomiting Interval history since last seen: No CP today. He had an episode of L sided CP yesterday afternoon with mild diaphoresis. Was tender in the L clavicular area. He also described numbness in the L arm. No EKG changes were noted. Troponin was negative x 2. His nitro drip was increased and he has remained pain free since then. Waiting for transfer to [facility] when bed available. Exam Const General: cooperative, no acute distress and frail appearing Nutritional Appearance: average body habitus Orientation: alert and oriented x3 Chest Chest: tenderness (Mild at left upper chest wall.) Resp Effort & Inspection: normal respiratory effort Cardio Rate: regular rate Rhythm: regular rhythm Heart Sounds: S1 normal and S2 normal GI Inspection: other (Protuberant abd.) Palpation: soft and nontender Skin General skin exam: no rashes or lesions noted Extrem General: no pedal edema and no calf tenderness Objective Last Vital Signs Temp 37.0 C 01/08/21 15:00 Pulse 92 H 01/08/21 15:01 Resp 22 01/08/21 15:01 BP 125/64 01/08/21 15:01 Pulse Ox 97 01/08/21 15:01
[2021-01-08] MEDS: Insulin Aspart 300 UNITS/3 ML PEN SC (17:09)
[2021-01-08] MEDS: Rosuvastatin 10 MG TAB 20 MG PO (19:42)
[2021-01-08] MEDS: nitroGLYcerin in D5W 50 MG/250 ML BTL 34.5 MG IV (19:48)
[2021-01-08] MEDS: QUEtiapine 300 MG TAB PO (21:33)
[2021-01-08] MEDS: Normal Saline Flush 10 ML SYR (22:10)
[2021-01-08] MEDS: Ondansetron 4 MG/2 ML VIAL IVP (22:14)
--- NOTE | 2021-01-08 22:24 | NUR.NOTE ---
Pt nauseous and vomitted c/o headache order obtained by provider. Zofran 4mIVP given and Morphine 2mg IVP given for c/o pain 01/28.Will continue to monitor
[2021-01-09] VITALS (104 sets, daily range): BP systolic 91–153; BP diastolic 51–88; PULSE 83–121; RESP 11–38; TEMP 36.6–36.9; O2SAT 92–98
[2021-01-09] MEDS: nitroGLYcerin in D5W 50 MG/250 ML BTL 19.5 MG IV (04:15)
[2021-01-09] MEDS: Levothyroxine 50 MCG TAB PO (05:52)
--- NOTE | 2021-01-09 07:53 | CMPROGNOTE_ITS ---
- If Service Date Differs Date of service: 01/09/21 (n) Time of Service: 07:53 Care Management Progress Note S/O: Fredo was sitting up in bed when CM met with him. He was visiting with his and expressed his frustration with the fact that he still does not have a bed at [facility]. His shared a lot of Fredo's medical history with CM and also discussed some of her experiences as an [employer] employee. She worked for 28 years in purchasing/supply chain. A: Fredo is a 70 year old man admitted on 01/07/21 with unstable angina. P: Fredo is waiting to be transferred to [facility] for further cardiac workup. He will follow up with his community providers and plan of care. If he does go to [facility] he will transport via ambulance coordinated by nursing tile setter supervisor. CM will continue to support Fredo and his discharge planning needs.
--- NOTE | 2021-01-09 07:53 | PDOC.CMPRO ---
- If Service Date Differs Date of service: 01/09/21 (n) Time of Service: 07:53 Care Management Progress Note S/O: Fredo was sitting up in bed when CM met with him. He was visiting with his and expressed his frustration with the fact that he still does not have a bed at [facility]. His shared a lot of Fredo's medical history with CM and also discussed some of her experiences as an [employer] employee. She worked for 28 years in purchasing/supply chain. A: Fredo is a 70 year old man admitted on 01/07/21 with unstable angina. P: Fredo is waiting to be transferred to [facility] for further cardiac workup. He will follow up with his community providers and plan of care. If he does go to [facility] he will transport via ambulance coordinated by nursing supervisory it specialist. CM will continue to support Fredo and his discharge planning needs.
[2021-01-09] MEDS: Magnesium Oxide 400 MG TAB PO (08:35)
[2021-01-09] MEDS: Gabapentin 300 MG CAP PO (08:36)
[2021-01-09] MEDS: Metoprolol CR 50 MG TABCR PO (08:36)
[2021-01-09] MEDS: metFORMIN 500 MG TAB 1000 MG PO ×2 (08:37→17:19)
[2021-01-09] MEDS: Potassium Chloride 10 MEQ CAPCR PO (08:37)
[2021-01-09] MEDS: Allopurinol 300 MG TAB PO (08:38)
[2021-01-09] MEDS: Topiramate 25 MG TAB 75 MG PO (08:39)
[2021-01-09] MEDS: Pantoprazole 40 MG TABCR PO (08:39)
[2021-01-09] MEDS: Lisinopril 20 MG TAB 30 MG PO (08:40)
[2021-01-09] MEDS: Citalopram 20 MG TAB 10 MG PO (08:41)
[2021-01-09] MEDS: Insulin Aspart 300 UNITS/3 ML PEN SC (08:46)
--- NOTE | 2021-01-09 10:48 | PHA.REVIEW ---
Pharmacy Admission Review - Admission Clinical Review (Last Reviewed 01/07/21 @ 02:04 by Sergio Nguyen MD) Unstable angina (Acute) Chest pain (Acute) amoxicillin Allergy (Severe, Unverified 01/06/21 23:52) breathing difficuty and vomiting Penicillins Allergy (Intermediate, Unverified 01/06/21 23:52) Skin Rash sulfamethoxazole [From Bactrim] Allergy (Intermediate, Unverified 01/06/21 23:52) Skin Rash trimethoprim [From Bactrim] Allergy (Intermediate, Unverified 01/06/21 23:52) Skin Rash oxycodone HCl [From Percocet] Adverse Reaction (Severe, Unverified 01/06/21 23:52) Contraindicated oxycodone terephthalate [From Percodan] Adverse Reaction (Severe, Unverified 01/06/21 23:52) Contraindicated Resuscitation Status Full Code Height 5 ft 10 in Weight 88.1 kg - Renal Dosing Renal Dosing: BUN 14 mg/dL (7-18) 01/06/21 23:11 Creatinine 1.4 mg/dL (0.70-1.30) H 01/06/21 23:11 Medications needing adjustments: Reviewed List of meds needing interventions: eCrCl 49 ml/min - Anticoagulation Anticoagulation: Hgb 11.7 g/dL (13.5-17.5) L 01/06/21 23:11 Hct 34.9 % (40.0-50.0) L 01/06/21 23:11 Plt Count 190 10^3/uL (130-400) 01/06/21 23:11 Creatinine 1.4 mg/dL (0.70-1.30) H 01/06/21 23:11 DVT Prophylaxis: N/A Therapeutic Anticoagulation: N/A (hx of subdural bleed x4) - Opiate Usage Evaluate Pain Scale/Pains Meds: N/A - Relevant Labs Sodium 138 mmol/L (136-145) 01/06/21 23:11 Potassium 3.8 mmol/L (3.5-5.1) 01/06/21 23:11 Chloride 106 mmol/L (98-107) 01/06/21 23:11 Electrolytes, C-Reactive P, ESR: Reviewed - DM Control DM Control: Glucose 193 mg/dL (74-106) H 01/06/21 23:11 Finger Stick Blood Glucose 143 Finger Stick Blood Glucose 143 Finger Stick Blood Glucose 143 Finger Stick Blood Glucose 143 Insulin Dosing: Reviewed (aspart per SS, detemir 80 U BID, uses victoza daily at home but has not been brought into hospital) - Heart Failure/OH Heart Failure/OH: Troponin I < 0.05 ng/mL (<0.06) 01/07/21 15:26 NT-Pro-B Natriuret Pep 277 pg/mL (<300) 01/06/21 23:11 EF%, AURA's, B-Blockers, Diuretics: Reviewed - BP Control BP Control: Blood Pressure [Left Arm] 104/62 Blood Pressure [Left Arm] 148/57 Blood Pressure 114/68 Blood Pressure 108/69 Blood Pressure 110/63 Blood Pressure 114/70 Blood Pressure 108/63 Blood Pressure 109/61 Blood Pressure 104/56 Blood Pressure 91/64 Blood Pressure 121/76 Blood Pressure 122/73 Blood Pressure 106/54 Blood Pressure 104/62 Blood Pressure 108/51 Blood Pressure 115/72 Blood Pressure 115/75 Blood Pressure 142/79 Blood Pressure 138/75 Blood Pressure 153/88 Blood Pressure 148/57 Blood Pressure 135/63 Blood Pressure 149/81 If elevated: Reviewed - Qtc Review If Elevated: Reviewed List meds needing interventions: QTc 439 - IV to PO Switch IV Medications: Reviewed (Nitro gtt, morphine and zofran IVP PRN) - Home Meds Home Med List reviewed: Intervened Relevent Home Meds Not ordered & why?: all ordered except for isosorbide (nitro gtt active); had to edit quite a few dosages and directions, all confirmed via rx hx/pharmacy list except OTCs - Current meds Current Medication Order Review: Reviewed
[2021-01-09] MEDS: MORPHine 2 MG/ML SYR IVP ×2 (11:57→15:54)
--- NOTE | 2021-01-09 12:15 | RT.EKG_ITS ---
APPROVED REPORT Exam: Resting ECG Reason for Exam: chest pain Patient Location: I HR:91 bpm ECG Measurements Heart Rate 91 AXIS ND 132 P 50 QRSd 91 QRS 21 QT 364 T 217 QTc 448 Conclusion Age and gender not entered, assume 49 yo male for purpose of ECG interpretation Sinus rhythm...normal P axis, V-rate 60- 99 Nonspecific T abnormalities, diffuse leads...T <-0.10mV, ant/lat/inf
[2021-01-09] MEDS: nitroGLYcerin 2% 1 INCH/1 GM PKT 2 GM TP (13:32)
[2021-01-09] MEDS: Normal Saline Flush 10 ML SYR (13:32)
--- NOTE | 2021-01-09 14:51 | NUR.NOTE ---
called ICU and has requested that PT is NPO after midnight. Nursing Note:
--- NOTE | 2021-01-09 16:07 | PGE_ITS ---
Date of Service Date of service: 01/09/21 Time of Service: 16:08 Assessment and Plan Assessment and plan (1) Unstable angina: Status: Acute Assessment and plan: [place] [facility] be tranferred tomorrow. Cont nitro drip. No AC d/t h/o subdural bleed x 4. Cont BB, statin and Ranexa (2) Chronic subdural hematoma: Status: Chronic Assessment and plan: Avoiding anticoagulation and antiplatlets. (3) Diabetes mellitus type 2 in obese: Status: Chronic Assessment and plan: Insulin Levemir and SS insulin correction dosing. Controlled. Cont to Monitor Subjective Subjective Patient reports: no new complaints, feels better and afebrile; denies diarrhea, nausea and vomiting Interval history since last seen: He did lose IV site today. Before a midline could be place, nitropaste applied. Midline placed and nitro drip restarted. Episode of L sided chest pain with numbness in left arm. Resolved with morphine 2mg IV. Exam Const General: cooperative, no acute distress and frail appearing Nutritional Appearance: average body habitus Orientation: alert and oriented x3 Chest Chest: tenderness (Mild at left upper chest wall.) Resp Effort & Inspection: normal respiratory effort Cardio Rate: regular rate Rhythm: regular rhythm Heart Sounds: S1 normal and S2 normal GI Inspection: other (Protuberant abd.) Palpation: soft and nontender Skin General skin exam: no rashes or lesions noted Extrem General: no pedal edema and no calf tenderness Objective Last Vital Signs Temp 36.6 C 01/09/21 11:50 Pulse 93 H 01/09/21 12:31 Resp 16 01/09/21 15:30 BP 122/74 01/09/21 12:31 Pulse Ox 98 01/09/21 11:50
[2021-01-09] MEDS: Rosuvastatin 10 MG TAB 20 MG PO (19:47)
--- NOTE | 2021-01-09 19:53 | DSE_ITS ---
Date of service: 01/09/21 Time of Service: 19:56 DS: Diagnosis Discharge Diagnosis (1) Unstable angina: Status: Acute (2) Chronic subdural hematoma: Status: Chronic (3) Diabetes mellitus type 2 in obese: Status: Chronic Discharge Plan Disposition Patient Disposition: [facility] Condition: Serious Discharge Details Reason For Visit: Unstable Angina Admit Date/Time: 01/09/21 09:33 Admit Provider: Sergio Nguyen Attending Provider: Sergio Nguyen Primary Care Provider: Alisa Ramirez [facility] Course Hospital Course: 70 male with h/o CAD, s/p CABG x2, s/p multiple PCI, and h/o subdural bleed x4 and therefore not on antiplatelet or anticoagulation agents. Has h/o chronic and recurent CP generally controlled on antianginal regimen. Last visit with cardiology 08/11 and no change in program. Over several days prior to hospitalization had been having frequent episodes of substernal CP radiating to LUE, episodes he described as identical to prior anginal pain. Seen in the ED one day prior to admission, managed chest pain with NTG, but admitted when pain stopped responding to SL NTG but this was no longer working. He was admitted and started on NTG drip and has been pain free waiting for transfer to [facility] for definitive management. Troponins negative, BNaP normal, and creatinine at baseline stage 3a CKD on admission. Accepted for transfer on evening of 01/09/21 to [facility] cardiology. Home Meds and New Rx's Prescriptions: No Action triamcinolone acetonide 0.1 % Ointment 1 applic TOPICAL BID RF: 0 acetylcysteine [NAC] 600 mg capsule 600 mg PO BID RF: 0 cod liver oil Capsule 1 cap PO DAILY RF: 0 carboxymethylcellulose sodium [Refresh Tears] 0.5 % drops 1 drp OP 4-6XD PRNRF: 0 bisacodyl [Dulcolax (bisacodyl)] 5 mg tablet,delayed release (DR/EC) 5 mg PO DAILY PRNRF: 0 metoprolol succinate 50 mg tablet extended release 24 hr 50 mg PO DAILY RF: 0 citalopram 20 mg tablet 10 mg PO DAILY RF: 0 diclofenac sodium [Voltaren] 1 % gel 2 g topical QID RF: 0 ranolazine [Ranexa] 500 mg tablet extended release 12 hr 500 mg PO BID RF: 0 polyethylene glycol 3350 [Miralax] 17 GM powder in packet 17 g PO DAILY PRNQty: 255 RF: 0 nitroglycerin [Nitrostat] 0.4 MG tablet, sublingual 0.4 mg Sublingual as directed RF: 0 docusate sodium [Dulcolax Stool Softener (dss)] 100 MG capsule 100 mg PO DIRECTED PRNRF: 0 Levemir FlexTouch U-100 Insuln 100 UNIT/1 ML insulin pen 80 units subcut BID RF: 0 riboflavin (vitamin B2) [Vitamin B-2] 100 mg tablet 200 mg PO BID RF: 0 levothyroxine 50 MCG tablet 50 mcg PO DAILY@0730 RF: 0 allopurinol 300 MG tablet 300 mg PO DAILY RF: 0 quetiapine [Seroquel] 300 MG tablet 300 mg PO HS RF: 0 rosuvastatin [Crestor] 20 MG tablet 20 mg PO HS RF: 0 metformin [Glucophage] 1,000 mg Tablet 1,000 mg PO BID RF: 0 lisinopril 20 mg Tablet 30 mg PO DAILY RF: 0 potassium chloride 10 mEq Tablet Extended Release 10 meq PO DAILY RF: 0 isosorbide mononitrate 60 mg tablet extended release 24 hr 60 mg PO DAILY RF: 0 lidocaine [Lidoderm] 1 PATCH patch 1 patch Topical Q24H Qty: 4 RF: 0 methocarbamol 500 mg tablet 500 mg PO Q6H PRN (Reason: muscle spasm) Qty: 14 RF: 0 hydrocodone-acetaminophen 5-325 mg tablet 1 tab PO Q6H PRN (Reason: pain) Qty: 10 RF: 0 tramadol 50 mg tablet 50 mg PO TID PRN (Reason: pain) Qty: 10 RF: 0 docusate sodium [Colace] 100 mg Capsule 100 mg PO DAILY PRNRF: 0 isosorbide mononitrate 30 mg tablet extended release 24 hr 30 mg PO DAILY RF: 0 topiramate 25 mg tablet 25 mg PO HS RF: 0 topiramate 50 mg tablet 50 mg PO DAILY RF: 0 gabapentin 300 mg capsule 300 mg PO HS RF: 0 cholecalciferol (vitamin D3) [Vitamin D3] 1,000 unit Tablet 1,000 unit PO DAILY RF: 0 pantoprazole [Protonix] 40 mg tablet,delayed release (DR/EC) 40 mg PO DAILY Qty: 30 RF: 0 magnesium 250 mg Tablet 400 mg PO DAILY RF: 0 Victoza 2-Thanh 0.6 mg/0.1 mL (18 mg/3 mL) pen injector 1.8 mg SUBCUT DAILY RF: 0 Discharge Instructions Instructions: Acute Coronary Syndrome (GEN) Activity:: Bed rest Diet:: Carbohydrate consistent cardiac prudent Discharge Orders Discharge Orders: Discharge Order (Routine); Ordered 01/09/21 Ordered By: Nicolas Ocasio DS: Summary Time Spent with Patient providing and/or coordinating discharge services: Less than 30 minutes Status at Discharge Functional status at discharge: bed bound Overall status at discharge: patient is not back to baseline Mental Status: mental status grossly normal Speech and Movement: speech and movement normal Mood: congruent mood Affect: normal affect Exam Narrative Exam Narrative: (per day hospitalist on day of discharge) Const General: cooperative, no acute distress and frail appearing Nutritional Appearance: average body habitus Orientation: alert and oriented x3 Chest Chest: tenderness (Mild at left upper chest wall.) Resp Effort & Inspection: normal respiratory effort Cardio Rate: regular rate Rhythm: regular rhythm Heart Sounds: S1 normal and S2 normal GI Inspection: other (Protuberant abd.) Palpation: soft and nontender Skin General skin exam: no rashes or lesions noted Extrem General: no pedal edema and no calf tenderness Psych Mental Status: mental status grossly normal Speech and Movement: speech and movement normal Mood: congruent mood Affect: normal affect DS: Data Vitals/I&O Vitals and I&O: Vital Signs Temperature 36.8 C 01/09/21 16:16 Temperature Source Temporal Artery Scan 01/09/21 16:16 Pulse 88 01/09/21 19:30 Pulse 88 01/09/21 19:30 Respiratory Rate 30 H 01/09/21 19:30 Respiratory Effort 01/09/21 16:16 Respiratory Depth Normal 01/09/21 16:16 Respiratory Pattern Normal 01/09/21 16:16 Blood Pressure 131/83 01/09/21 19:30 Blood Pressure Mean 95 01/09/21 19:30 Blood Pressure Position Supine 01/09/21 16:16 Pulse Oximetry 97 01/09/21 16:16 Oxygen Delivery Method Room Air 01/09/21 16:16 Oxygen Flow Rate 0 01/09/21 16:16 Pain Level 1 01/09/21 16:54 Intake & Output 01/08/21 01/09/21 01/09/21 23:59 11:59 23:59 Intake Total 1224.075 / 2034.075 425.900 / 8415.478 0177.625 / 1535.525 Output Total 1400 / 2675 1500 / 2825 1325 / 2825 Balance -175.925 / -640.925 -1074.100 / -1289.475 -215.375 / -1289.475 Intake: IV 584.075 / 834.075 185.900 / 305.525 119.625 / 305.525 Oral 640 / 1200 240 / 1230 990 / 1230 Output: Urine 1400 / 2675 1500 / 2825 1325 / 2825 Other: Urine Color Yellow Yellow Yellow Urine Appearance Clear Clear Clear Urine Odor None Normal None Comment using urinal at bedside. Stool Occult Blood Negative Negative Stool Size Small Small Stool Characteristics Soft Soft Formed Brown Liquid Voiding Methods Urinal Urinal [facility] Medical History Anemia, iron deficiency CAD (coronary artery disease) Chronic low back pain Chronic subdural hematoma Colon polyps Constipation, chronic Depression Diastasis recti DM type 2 (diabetes mellitus, type 2) Fatty liver GERD (gastroesophageal reflux disease) Gout H/O alcohol abuse Headaches due to 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 Hx of deep venous thrombosis Hx of traumatic brain injury Hyperlipidemia Hypertension Hypothyroidism Knee pain, right Migraine headache Mild dementia MRSA infection Obstructive sleep apnea Pain in joint of right foot Pituitary abnormality Rathke's pouch cyst Recurrent UTI Rhinorrhea Right sided weakness Tinea pedis Urethral stricture Vitamin D deficiency Volvulus of cecum Surgical History Appendectomy (06/01/16) Colonoscopy - MAC 2010-5year f/u 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 electroconvulsive therapy Extraction of cataract facial lesion removal Repair of inguinal hernia (08/05/17) right inguinal hernia repair by Dr Arroyo on 08/05/17 Repair of umbilical hernia Social History Smoking/Tobacco Use Status: Never Smoking risk assessment performed?: Yes Alcohol Intake: former Drug use: Never Substance use type: does not use Household members: spouse Housing: house Pets and animals: Yes Pets and animals: dog(s) Do you feel safe at home: Yes Do you feel safe in your relationship?: Yes
--- NOTE | 2021-01-09 21:08 | NUR.NOTE ---
Nursing Note: At 20:30H this feature writer informed the receiving nurse Phong that the patient's discharge summary will be faxed when its ready. Faxed discharge summary to [phone] Card[facility] unit in [facility] Fax#[phone].
== END 2021-01-09 20:05 | disposition short-term general hospital (02) | DRG 302 ==
LOC: ER 01-07 02:56 → ICU 01-07 02:58
PROVIDERS: Family Medicine; Admitting Provider General Practice; Emergency Provider Student in an Organized Health Care Education/Training Program; PCP Family Medicine; Visit Provider General Practice
DX: I25.110 Atherosclerotic heart disease of native coronary artery with unstable angina pectoris (principal); I62.03 Nontraumatic chronic subdural hemorrhage; Z95.1 Presence of aortocoronary bypass graft; Z95.5 Presence of coronary angioplasty implant and graft; D50.9 Iron deficiency anemia, unspecified; G89.29 Other chronic pain; M54.5 Low back pain; K59.09 Other constipation; F32.9 Major depressive disorder, single episode, unspecified; E11.9 Type 2 diabetes mellitus without complications; K76.0 Fatty (change of) liver, not elsewhere classified; K21.9 Gastro-esophageal reflux disease without esophagitis; M10.9 Gout, unspecified; F10.11 Alcohol abuse, in remission; Z87.820 Personal history of traumatic brain injury; Z86.718 Personal history of other venous thrombosis and embolism; E78.5 Hyperlipidemia, unspecified; I10 Essential (primary) hypertension; G43.909 Migraine, unspecified, not intractable, without status migrainosus; F03.90 Unspecified dementia, unspecified severity, without behavioral disturbance, psychotic disturbance, mood disturbance, and anxiety; G47.33 Obstructive sleep apnea (adult) (pediatric); D55.9 Anemia due to enzyme disorder, unspecified; Z79.4 Long term (current) use of insulin
CPT/HCPCS: 36410; 36415; 80053; 87635; 93005; 96365; 96366; 99291; 70450; 71045; 83880; 84484; 85025; 93010; 99219; 99225; 99232; G0378; J2270; J2405; J3490

== ENCOUNTER 2021-01-16 12:51 | Outpatient (REF) | payer MEDICARE, OTHER, SELFPAY ==
[2021-01-16 18:58] LABS: Bilirubin Negative (Negative); Blood Small (Negative); Clarity Sl Cloudy (Clear); Glucose Negative (Negative); Ketones Negative (Negative); Leukocyte Esterase Small (Negative); Nitrite Negative (Negative); Urobilinogen 0.2 EU/dL (Up TO 0.2); pH 5.5 (5-8)
[2021-01-16 19:10] LABS: Bacteria Few HPF (Negative); C & S Indicated? Yes; Casts Negative LPF (Negative); Crystals Negative HPF (Negative); Epithelial Cells Few HPF (Negative); Mucus Negative (Negative)
== END 2021-01-16 12:52 | disposition home or self-care (01) ==
LOC: NCHCN 12:51
PROVIDERS: PCP Family Medicine; Visit Provider Family Medicine
DX: R30.0 Dysuria (principal)
CPT/HCPCS: 87077; 81003; 81015; 87086; 87186

== ENCOUNTER 2021-01-20 17:16 | Outpatient (CLI) | payer MEDICARE, OTHER, SELFPAY ==
[2021-01-20 16:14] LABS: Bilirubin Negative (Negative); Blood Negative (Negative); Clarity Clear (Clear); Glucose Negative (Negative); Ketones Negative (Negative); Leukocyte Esterase Small (Negative); Nitrite Negative (Negative); Urobilinogen 0.2 EU/dL (Up TO 0.2); pH 5.5 (5-8)
[2021-01-20 16:25] LABS: Bacteria Few HPF (Negative); C & S Indicated? Yes; Casts Negative LPF (Negative); Crystals Negative HPF (Negative); Epithelial Cells Few HPF (Negative); Mucus Negative (Negative); RBC 0-2 HPF (0-2)
[2021-01-20 17:43] LABS: Calculated LDL 5 mg/dL (<100); Cholesterol 94 mg/dL (<200); Ferritin 130 ng/mL (26-388); HDL Cholesterol 24 mg/dL (40-60); TSH (W/Ref FT4) 2.89 uIU/mL (0.36-3.74); Triglyceride 326 mg/dL (<150)
[2021-01-20 17:50] LABS: Vitamin D 25 Total 44.2 ng/mL (30-100)
[2021-01-20 18:17] LABS: Uric Acid 4.2 mg/dL (3.5-7.2)
== END 2021-01-20 17:17 | disposition home or self-care (01) ==
LOC: LBO 17:17
PROVIDERS: PCP Family Medicine; Visit Provider Family Medicine
DX: D50.9 Iron deficiency anemia, unspecified (principal); E11.9 Type 2 diabetes mellitus without complications; E03.9 Hypothyroidism, unspecified; M10.9 Gout, unspecified; E55.9 Vitamin D deficiency, unspecified; R30.0 Dysuria
CPT/HCPCS: 36415; 80061; 82306; 87077; 81003; 81015; 82728; 84443; 84550; 87086; 87186

== ENCOUNTER 2021-01-21 20:23 | Outpatient (REF) | payer MEDICARE, OTHER, SELFPAY | END 2021-01-21 20:24 | disposition home or self-care (01) | LOC: LBN 20:23 | PROVIDERS: PCP Family Medicine; Visit Provider Urology | DX: N39.0 Urinary tract infection, site not specified (principal) | CPT/HCPCS: 87077; 87086; 87186 ==

== ENCOUNTER → 2021-01-28 09:34 | Outpatient (BNVA) | payer MEDICARE, OTHER, SELFPAY | PROVIDERS: PCP Family Medicine; Referring Provider Family Medicine; Visit Provider Urology | DX: N35.911 Unspecified urethral stricture, male, meatal (principal); N39.0 Urinary tract infection, site not specified | CPT/HCPCS: 99213 ==

== ENCOUNTER → 2021-02-04 12:51 | Outpatient (BNVA) | payer MEDICARE, OTHER, SELFPAY | PROVIDERS: PCP Family Medicine; Referring Provider Family Medicine; Visit Provider Internal Medicine Cardiovascular Disease | DX: I25.810 Atherosclerosis of coronary artery bypass graft(s) without angina pectoris (principal); I20.0 Unstable angina; Z98.890 Other specified postprocedural states; I25.5 Ischemic cardiomyopathy; E78.5 Hyperlipidemia, unspecified; I34.0 Nonrheumatic mitral (valve) insufficiency | CPT/HCPCS: 99214 ==

== ENCOUNTER → 2021-02-14 15:22 | Outpatient (BNVA) | payer MEDICARE, OTHER, SELFPAY | PROVIDERS: PCP Family Medicine; Referring Provider Family Medicine; Visit Provider Urology | DX: R39.89 Other symptoms and signs involving the genitourinary system (principal); R39.198 Other difficulties with micturition; Z98.890 Other specified postprocedural states | CPT/HCPCS: 51701; 81003; 99213 ==

== ENCOUNTER 2021-03-04 17:59 | Outpatient (REF) | payer MEDICARE, OTHER, SELFPAY ==
[2021-03-04 21:30] LABS: Anion Gap 10.7 mmol/L (3-11); BUN 11 mg/dL (7-18); CO2 23.3 mmol/L (21.0-32.0); CREATININE 1.3 mg/dL (0.70-1.30); Calcium 8.7 mg/dL (8.5-10.1); Chloride 107 mmol/L (98-107); Estimated GFR 54.42 (mL/min/1.73m2); Glucose 144 mg/dL (74-106); Potassium 3.7 mmol/L (3.5-5.1); Sodium 141 mmol/L (136-145)
== END 2021-03-04 18:00 | disposition home or self-care (01) ==
LOC: LBN 17:59
PROVIDERS: PCP Family Medicine; Visit Provider Nurse Practitioner Family
DX: M10.9 Gout, unspecified (principal)
CPT/HCPCS: 80048; 84550

== ENCOUNTER 2021-04-01 11:05 | Outpatient (CLI) | payer MEDICARE, OTHER, SELFPAY ==
--- NOTE | 2021-04-01 11:45 | DI.RAD_ITS ---
Exam(s) XR LUMBAR SPINE COMPLETE EXAM: XR LUMBAR SPINE COMPLETE CLINICAL HISTORY: Obtain xray to r/o fracture., LOW BACK PAIN, M54.50. TECHNIQUE: 2D digital imaging was performed. COMPARISON: CR LUMBAR SPINE AP, LAT from 05/15/[address] ABDOMEN PELVIS W from 01/04/[address] ABDOMEN PELVIS W from 01/04/2021 FINDINGS: There is transitional anatomy. There is a nonacute appearing compression fracture at superior endpla te level of T12. T12 ribs are small. There is advanced disc space narrowing at L5-S1 level and ante rior osseous lipping at this level. Other disc spaces exhibit mild narrowing posteriorly at L3-4 and L4-5 levels. No osseous lesions. Mild facet degenerative changes. The sacroiliac joints appear un remarkable. There is a sclerotic density in the left iliac bone. This is probably a benign bone isl and. No significant scoliosis. IMPRESSION: Nonacute T12 compression fracture. Chronic advanced degenerative disc disease L5-S1 level Probable benign bone island in the left iliac bone. This measures approximately 11 x 10 millimeters. DATA REPOSITORY: RADIATION DOSE DELIVERED:
--- NOTE | 2021-04-01 11:45 | DI.RAD_ITS ---
Exam(s) XR THORACIC SPINE COMPLETE EXAM: XR THORACIC SPINE COMPLETE CLINICAL HISTORY: Obtain xray to r/o fracture, MIDLINE BACK PAIN, M54.89. TECHNIQUE: 2D digital imaging was performed. COMPARISON: CR CERVICAL SP. LIMITED (TRAUMA) from 01/16/2015 FINDINGS: No scoliosis. No acute compression fractures nor listhesis evident. No prominent disc space narrowi ng there is a nonacute appearing compression fracture of L1 noted. No abnormal widening of the paraspinal lines. No scoliosis. Sternotomy wires noted. IMPRESSION: DATA REPOSITORY: RADIATION DOSE DELIVERED:
== END 2021-04-01 11:25 ==
PROVIDERS: PCP Family Medicine; Visit Provider Internal Medicine
DX: M54.89 Other dorsalgia (principal); M54.59 Other low back pain; S22.088A Other fracture of T11-T12 vertebra, initial encounter for closed fracture; M51.34 Other intervertebral disc degeneration, thoracic region; M89.8X8 Other specified disorders of bone, other site
CPT/HCPCS: 72072; 72110

== ENCOUNTER 2021-05-13 15:19 | Emergency (ER) | payer MEDICARE, OTHER, SELFPAY ==
[2021-05-13] VITALS (12 sets, daily range): BP systolic 144–167; BP diastolic 66–87; PULSE 86–93; RESP 1–25; TEMP 36.4–36.6; O2SAT 97–100
--- NOTE | 2021-05-13 15:30 | RT.EKG_ITS ---
APPROVED REPORT Exam: Resting ECG Reason for Exam: chest pain Patient Location: E HR:87 bpm ECG Measurements Heart Rate 87 AXIS NJ 133 P 48 QRSd 87 QRS 19 QT 368 T 208 QTc 444 Conclusion Sinus rhythm...normal P axis, V-rate 60- 99 Atrial premature complexes...SV complexes w/ short R-R intvls Probable posterior infarct, recent...prom R, STd, V1-3 or Q, Jamila, V7-9 Nonspecific T abnormalities, lateral leads...T <-0.10mV, I aVL V5 V6. Sinus. No STEMI. I have reviewed and interpreted ECG and agree with software generated interpretation.
--- NOTE | 2021-05-13 15:30 | DI.RAD_ITS ---
Exam(s) XR PORTABLE CHEST AP EXAM: XR PORTABLE CHEST AP CLINICAL HISTORY: cough, sob, r/o acute disease TECHNIQUE: COMPARISON: CR,XR XR PORTABLE CHEST AP from 01/06/2021 FINDINGS: Heart is not enlarged. There are multiple mediastinal vascular clips consistent with prior CABG surg dilip. There are mild changes of pulmonary scarring. No acute consolidation. No pleural effusion. N o change from prior radiograph of January 06. IMPRESSION: No evidence of acute process. RADIATION DOSE DELIVERED: Total DLP
--- NOTE | 2021-05-13 15:45 | ED.GENADUL_ITS ---
Discharge Plan Disposition Patient Disposition: HOME Condition: Improving Discharge Details Clinical Impression: Viral URI with cough Primary Care Provider: Alisa Ramirez ED Provider: Apple Enriquez Home Meds and New Rx's Prescriptions: Continued triamcinolone acetonide 0.1 % Ointment 1 applic TOPICAL BID RF: 0 phenazopyridine 200 mg Tablet 200 mg PO TID PRNRF: 0 carboxymethylcellulose sodium [Refresh Tears] 0.5 % Drops 1 drp OPHTHALMIC (EYE) QID PRNRF: 0 acetylcysteine [NAC] 600 mg capsule 600 mg PO BID RF: 0 cod liver oil Capsule 1 cap PO DAILY RF: 0 carboxymethylcellulose sodium [Refresh Tears] 0.5 % drops 1 drp OP 4-6XD PRNRF: 0 bisacodyl [Dulcolax (bisacodyl)] 5 mg tablet,delayed release (DR/EC) 5 mg PO DAILY PRNRF: 0 metoprolol succinate 50 mg tablet extended release 24 hr 50 mg PO DAILY RF: 0 citalopram 20 mg tablet 10 mg PO DAILY RF: 0 diclofenac sodium [Voltaren] 1 % gel 2 g topical QID RF: 0 ranolazine [Ranexa] 500 mg tablet extended release 12 hr 500 mg PO BID RF: 0 amlodipine 2.5 mg tablet 2.5 mg PO DAILY Qty: 90 RF: 3 finasteride 5 mg tablet 5 mg PO DAILY Qty: 90 RF: 4 polyethylene glycol 3350 [Miralax] 17 GM powder in packet 17 g PO DAILY PRNQty: 255 RF: 0 nitroglycerin [Nitrostat] 0.4 MG tablet, sublingual 0.4 mg Sublingual as directed RF: 0 docusate sodium [Dulcolax Stool Softener (dss)] 100 MG capsule 100 mg PO DIRECTED PRNRF: 0 Levemir FlexTouch U-100 Insuln 100 UNIT/1 ML insulin pen 80 units subcut BID RF: 0 riboflavin (vitamin B2) [Vitamin B-2] 100 mg tablet 200 mg PO BID RF: 0 levothyroxine 50 MCG tablet 50 mcg PO DAILY@0730 RF: 0 allopurinol 300 MG tablet 300 mg PO DAILY RF: 0 quetiapine [Seroquel] 300 MG tablet 300 mg PO HS RF: 0 rosuvastatin [Crestor] 20 MG tablet 20 mg PO HS RF: 0 metformin [Glucophage] 1,000 mg Tablet 1,000 mg PO BID RF: 0 lisinopril 20 mg Tablet 30 mg PO DAILY RF: 0 potassium chloride 10 mEq Tablet Extended Release 10 meq PO DAILY RF: 0 isosorbide mononitrate 60 mg tablet extended release 24 hr 60 mg PO DAILY RF: 0 lidocaine [Lidoderm] 1 PATCH patch 1 patch Topical Q24H Qty: 4 RF: 0 methocarbamol 500 mg tablet 500 mg PO Q6H PRN (Reason: muscle spasm) Qty: 14 RF: 0 tramadol 50 mg tablet 50 mg PO TID PRN (Reason: pain) Qty: 10 RF: 0 docusate sodium [Colace] 100 mg Capsule 100 mg PO DAILY PRNRF: 0 topiramate 25 mg tablet 25 mg PO HS RF: 0 topiramate 50 mg tablet 50 mg PO DAILY RF: 0 gabapentin 300 mg capsule 300 mg PO BID RF: 0 cholecalciferol (vitamin D3) [Vitamin D3] 1,000 unit Tablet 1,000 unit PO DAILY RF: 0 pantoprazole [Protonix] 40 mg tablet,delayed release (DR/EC) 40 mg PO DAILY Qty: 30 RF: 0 magnesium 250 mg Tablet 400 mg PO DAILY RF: 0 Victoza 2-Thanh 0.6 mg/0.1 mL (18 mg/3 mL) pen injector 1.8 mg SUBCUT DAILY RF: 0 Discharge Instructions Instructions: Upper Respiratory Infection (ED), Acute Cough (ED), Postnasal Drip (DC) Additional Instructions: Drink plenty of fluids and get plenty of rest. You can try [id number] cough and cold medication as needed and directed. You will be contacted regarding your Covid test result when it is available. Please be sure to quarantine until it is confirmed that your test is negative. Follow-up with your primary care doctor in 1 week. Return to the emergency department with any worsening or new concerning symptoms such as persistent fevers, worsening chest pain or shortness of breath. Discharge Data Discharge Physician: Apple Enriquez Medical Decision Making 70-year-old male with a history of hypertension, hyperlipidemia, hypothyroidism, diabetes, gout, obstructive sleep apnea, GERD presents to the ED with a complaint of postnasal drip, dry cough, shortness of breath, dizziness and chest pressure with coughing since this morning. Patient states he is mainly concerned about Covid. He is fully vaccinated for Covid including a booster a few weeks ago. Blood pressure hypertensive, remainder vitals within normal limits. Oxygen saturation 100% on room air. He appears comfortable and nontoxic. He is breathing comfortably and speaking in full sentences. Lungs clear throughout. No focal deficits. Considering patient's age and history, will obtain screening labs, EKG, chest x- ray and give fluids, duo nebs and IV Tylenol and reassess. EKG notes a rate of 87, sinus, no STEMI nondiagnostic. Labs and imaging reviewed and unremarkable for acute findings. Normal white blood cell count. Glucose 242 but normal electrolytes. Troponin negative. Chest x-ray negative. Patient reassessed and he feels much better. Oxygen saturation 98% on room air. Lung sounds clear throughout. Patient feels comfortable going home. Advised that he will be contacted regarding his Covid test result. Advised to quarantine until Covid test result available. Advised on the importance of fluids, rest and supportive care. Advised to follow up with the primary care doctor for re-evaluation. Usual and customary return precautions given prior to discharge. Medical Records Medical records reviewed: Yes I reviewed the patient's medical records. Imaging Data Radiologic Study: Radiologist's impression: XR Chest Exam date and time: 05/13/2021 3:45 PM Age: 70 years old Clinical indication: Cough and other: SOB TECHNIQUE: Imaging protocol: XR of the chest. Views: 1 view. COMPARISON: XR PORTABLE CHEST AP 01/06/2021 11:37 PM FINDINGS: Lungs: Unremarkable. No consolidation. Pleural spaces: Unremarkable. No pleural effusion. No pneumothorax. Heart/Mediastinum: No cardiomegaly. Bones/joints: Sternotomy wires and mediastinal surgical clips, consistent with coronary arterial bypass grafting. IMPRESSION: No acute findings. Lab Data Lab results reviewed: Yes I reviewed the patient's lab results. Labs: Laboratory Tests Range/Units 05/13/21 05/13/21 15:45 15:45 WBC (4.4-10.8) 10^3/uL 6.37 RBC (4.36-5.78) 10^6/uL 4.77 Hgb (13.5-17.5) g/dL 13.4 L Hct (40.0-50.0) % 39.7 L MCV (80-95) fL 83.2 MCH (27.0-33.0) pg 28.1 MCHC (32.0-36.0) % 33.8 RDW (11.8-14.1) % 14.8 H Plt Count (130-400) 10^3/uL 168 MPV (8.0-11.0) fL 8.8 Immature Gran % 0.5 Neutrophils % 63.5 Lymphocytes % 21.0 Monocytes % 9.1 Eosinophils % 4.6 Basophils % 1.3 Nucleated RBC % % 0 Absolute Neutrophils (1.2-6.7) 10^3/uL 4.05 Absolute Lymphocytes (1.2-3.4) 10^3/uL 1.34 Absolute Monocytes (0.1-0.8) 10^3/uL 0.58 Absolute Eosinophils (0.0-0.7) 10^3/uL 0.29 Absolute Basophils (0.0-0.2) 10^3/uL 0.08 Sodium (136-145) mmol/L 138 Potassium (3.5-5.1) mmol/L 3.6 Chloride (98-107) mmol/L 104 Carbon Dioxide (21.0-32.0) mmol/L 25.5 Anion Gap (3-11) mmol/L 8.5 BUN (7-18) mg/dL 15 Creatinine (0.70-1.30) mg/dL 1.3 Estimated GFR/1.73 m2 (mL/min/1.73m2) 54.42 Glucose (74-106) mg/dL 242 H Calcium (8.5-10.1) mg/dL 8.4 L Magnesium (1.8-2.4) mg/dL 2.0 Total Bilirubin (0.2-1.0) mg/dL 0.3 AST (15-37) U/L 17 ALT (16-63) U/L 25 Alkaline Phosphatase (46-116) U/L 74 Troponin I (<0.06) ng/mL < 0.05 Total Protein (6.4-8.2) g/dL 7.5 Albumin (3.4-5.0) g/dL 4.2 ECG Data Attestation: I personally reviewed and interpreted this ECG (s) as follows: Interpretation: Rate of 87, sinus, no acute ST elevation or depression. NH 133. QRS 87. QTc 444. HPI General Mode of arrival: ambulatory . Date/Time Provider Initiated Documentation: 05/13/21 15:25 . Limitations to Documentation: no limitations . Information obtained by: patient . HPI Narrative: Patient is a 70-year-old male well-known to the emergency department w/ a h/o diabetes, depression, GERD, hypertension, hyperlipidemia, former alcohol abuse presents from home for postnasal drip, cough, shortness of breath, dizziness since awakening this morning. Patient states he is concerned about potential coronavirus. He states he is fully vaccinated and had his booster a few weeks ago he denies any known exposure to Covid. He states he mainly feels dizzy when he puts his head down. He states his worst complaint is the postnasal drip. He also stated to the triage nurse that he had some chest pressure that mainly occurs with coughing. He denies any fever. He states he has not eaten much today due to decreased appetite. He denies any headache, sore throat, neck pain, vomiting, diarrhea or abdominal pain. Related Data Home Medications Medication Instructions Recorded Confirmed allopurinol 300 mg PO DAILY 01/24/13 05/13/21 levothyroxine 50 mcg PO DAILY@0730 01/24/13 05/13/21 quetiapine [Seroquel] 300 mg PO HS 01/24/13 05/13/21 rosuvastatin [Crestor] 20 mg PO HS 03/22/17 05/13/21 docusate sodium [Dulcolax Stool 100 mg PO DIRECTED PRN 04/08/17 05/13/21 Softener (dss)] nitroglycerin [Nitrostat] 0.4 mg SUBLINGUAL as directed 04/08/17 05/13/21 polyethylene glycol 3350 [Miralax] 17 g PO DAILY PRN #255 gm 04/08/17 05/13/21 Levemir FlexTouch U-100 Insuln 80 units SUBCUT BID 08/04/17 05/13/21 cholecalciferol (vitamin D3) 1,000 unit PO DAILY 11/11/18 05/13/21 [Vitamin D3] metformin [Glucophage] 1,000 mg PO BID 03/08/19 05/13/21 riboflavin (vitamin B2) 100 mg 200 mg PO BID tab 03/28/19 05/13/21 tablet bisacodyl 5 mg tablet,delayed 5 mg PO DAILY PRN tab 04/17/19 05/13/21 release carboxymethylcellulose sodium 0.5 1 drp OP 4-6XD PRN 04/17/19 05/13/21 % eye drops cod liver oil 1 cap PO DAILY 04/17/19 05/13/21 pantoprazole [Protonix] 40 mg PO DAILY #30 tab 04/25/19 05/13/21 metoprolol succinate 50 mg 50 mg PO DAILY 05/10/19 05/13/21 tablet,extended release 24 hr acetylcysteine 600 mg capsule 600 mg PO BID cap 05/16/19 05/13/21 citalopram 20 mg tablet 10 mg PO DAILY tab 05/16/19 05/13/21 lisinopril 30 mg PO DAILY 05/24/19 05/13/21 magnesium 400 mg PO DAILY 07/07/19 05/13/21 diclofenac sodium 1 % topical gel 2 g TOPICAL QID 04/30/20 05/13/21 ranolazine 500 mg tablet,extended 500 mg PO BID 04/30/20 05/13/21 release,12 hr Victoza 2-Thanh 1.8 mg SUBCUT DAILY 06/19/20 05/13/21 isosorbide mononitrate 60 mg PO DAILY 09/18/20 05/13/21 potassium chloride 10 meq PO DAILY 09/18/20 05/13/21 lidocaine [Lidoderm] 1 patch TOPICAL Q24H #4 ea 10/14/20 05/13/21 methocarbamol 500 mg PO Q6H PRN #14 tab 11/07/20 05/13/21 triamcinolone acetonide 1 applic TOPICAL BID 11/13/20 05/13/21 tramadol 50 mg PO TID PRN #10 tab 01/04/21 05/13/21 docusate sodium [Colace] 100 mg PO DAILY PRN 01/07/21 05/13/21 topiramate 25 mg PO HS 01/09/21 05/13/21 topiramate 50 mg PO DAILY 01/09/21 05/13/21 amlodipine 2.5 mg tablet 2.5 mg PO DAILY #90 tab 02/04/21 05/13/21 gabapentin 300 mg capsule 300 mg PO BID cap 02/04/21 05/13/21 finasteride 5 mg tablet 5 mg PO DAILY #90 tab 02/14/21 05/13/21 carboxymethylcellulose sodium 1 drp OPHTHALMIC (EYE) QID PRN 03/27/21 05/13/21 [Refresh Tears] phenazopyridine 200 mg PO TID PRN 03/27/21 05/13/21 Previous Rx's Medication Instructions Recorded pantoprazole [Protonix] 40 mg PO DAILY #30 tab 04/25/19 lidocaine [Lidoderm] 1 patch TOPICAL Q24H #4 ea 10/14/20 methocarbamol 500 mg PO Q6H PRN #14 tab 11/07/20 tramadol 50 mg PO TID PRN #10 tab 01/04/21 amlodipine 2.5 mg tablet 2.5 mg PO DAILY #90 tab 02/04/21 finasteride 5 mg tablet 5 mg PO DAILY #90 tab 02/14/21 Allergies Allergy/AdvReac Type Severity Reaction Status Date / Time amoxicillin Allergy Severe breathing Unverified 04/01/21 09:31 difficuty and vomiting Penicillins Allergy Intermediate Skin Rash Unverified 04/01/21 09:31 sulfamethoxazole Allergy Intermediate Skin Rash Unverified 04/01/21 09:31 [From Bactrim] trimethoprim [From Bactrim] Allergy Intermediate Skin Rash Unverified 04/01/21 09:31 oxycodone HCl [From Percocet] AdvReac Severe Contraindic Unverified 04/01/21 09:31 ated oxycodone terephthalate AdvReac Severe Contraindic Unverified 04/01/21 09:31 [From Percodan] ated General Stated Complaint: RespSymp MADELIN: 4 Review of Systems All systems reviewed & are unremarkable except as noted in HPI and below Constitutional Constitutional: Reports as per HPI, Denies chills and Denies fever(s) Eyes Eyes: Denies blurry vision ENT Ears, Nose, Mouth, and Throat: Reports dizziness, Reports post nasal drip, Denies sore throat and Denies throat swelling Cardiovascular Cardiovascular: Reports chest pain and Reports dyspnea Respiratory Respiratory: Reports cough and Reports dyspnea Gastrointestinal Gastrointestinal: Denies abdominal pain, Denies diarrhea and Denies vomiting Genitourinary Genitourinary: Denies hematuria and Denies dysuria Musculoskeletal Musculoskeletal: Denies back pain and Denies numbness Integumentary/Breasts Skin/Breast: Denies lesions and Denies rash Neurologic Neurologic: Reports dizziness, Denies localized weakness and Denies numbness Allergic/Immunologic Allergic/Immunologic: Denies throat swelling [facility] Medical History Anemia, iron deficiency CAD (coronary artery disease) Chronic low back pain Chronic subdural hematoma Colon polyps Constipation, chronic Depression Diastasis recti DM type 2 (diabetes mellitus, type 2) Fatty liver GERD (gastroesophageal reflux disease) Gout H/O alcohol abuse Headaches due to 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 Hx of deep venous thrombosis Hx of traumatic brain injury Hyperlipidemia Hypertension Hypothyroidism Knee pain, right Migraine headache Mild dementia MRSA infection Obstructive sleep apnea Pain in joint of right foot Pituitary abnormality Rathke's pouch cyst Recurrent UTI Rhinorrhea Right sided weakness Tinea pedis Urethral stricture Vitamin D deficiency Volvulus of cecum Surgical History Appendectomy (06/01/16) Colonoscopy - MAC 2009-5year f/u 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 electroconvulsive therapy Extraction of cataract facial lesion removal Repair of inguinal hernia (08/05/17) right inguinal hernia repair by Dr Arroyo on 08/05/17 Repair of umbilical hernia Social History Smoking/Tobacco Use Status: Never Smoking risk assessment performed?: Yes Alcohol Intake: former Drug use: Never Substance use type: does not use Household members: spouse Housing: house Pets and animals: Yes Pets and animals: dog(s) Do you feel safe at home: Yes Do you feel safe in your relationship?: Yes Exam Const General: cooperative and no acute distress [facility] Head: normal to inspection Face and sinus: normal facial exam Eyes General: appearance normal, both eyes and all related structures Pupils: PERRL EOM: EOM intact bilaterally Neck Neck: normal visual inspection and No submandibular swelling Lymphatic: no lymphadenopathy noted Chest Chest: normal inspection of the chest and no tenderness Resp Effort & Inspection: normal respiratory effort and able to speak in complete sentences Auscultation: clear to auscultation bilaterally Cardio Rate: regular rate Rhythm: regular rhythm GI Inspection: normal to inspection and obesity Palpation: soft, not firm, not rigid and nontender Auscultation: hypoactive bowel sounds Skin General skin exam: no rashes or lesions noted Neuro General: patient alert, patient awake, patient oriented x3, moves all extremities, no meningeal signs and no focal motor deficits Cranial Nerves: CN's II-XI intact bilaterally Cognition: normal cognition Speech: speech normal Motor: muscle tone normal throughout and strength 5/5 throughout Sensory Exam: no sensory deficits noted Extrem General: normal to inspection, full ROM, capillary refill normal, no calf tenderness bilaterally and no edema Psych Appearance: grossly normal Mental Status: mental status grossly normal Speech and Movement: speech and movement normal Affect: normal affect Course Vital Signs Vital signs: Vital Signs Temperature 97.5 F L 05/13/21 15:25 Pulse 91 H 05/13/21 15:25 Respiratory Rate 16 05/13/21 15:25 Blood Pressure 167/82 H 05/13/21 15:25 Pulse Oximetry 100 05/13/21 15:25 Temperature 97.5 F L 05/13/21 15:25 Temperature Source Skin 05/13/21 15:25 Pulse 91 H 05/13/21 15:25 Respiratory Rate 16 05/13/21 15:25 Respiratory Effort Non-Labored 05/13/21 15:25 Blood Pressure 167/82 H 05/13/21 15:25 Blood Pressure Position Sitting 05/13/21 15:25 Pulse Oximetry 100 05/13/21 15:25 Oxygen Delivery Method Room Air 05/13/21 15:25 Oxygen Flow Rate 0 05/13/21 15:25 Pain Level 2 05/13/21 15:25
[2021-05-13 15:58] LABS: Abs Immature Grans 0.03 10^3/uL (0.0-0.06); Absolute Basophil Count 0.08 10^3/uL (0.0-0.2); Absolute Eosinophil Count 0.29 10^3/uL (0.0-0.7); Absolute Lymphocyte Count 1.34 10^3/uL (1.2-3.4); Absolute Monocyte Count 0.58 10^3/uL (0.1-0.8); Absolute Neutrophil Count 4.05 10^3/uL (1.2-6.7); Basophils % 1.3; Eosinophils % 4.6; HCT 39.7 % (40.0-50.0); HGB 13.4 g/dL (13.5-17.5); Immature Grans % 0.5; MCH 28.1 pg (27.0-33.0); MCHC 33.8 % (32.0-36.0); MCV 83.2 fL (80-95); MPV 8.8 fL (8.0-11.0); Monocytes % 9.1; Neutrophils % 63.5; Nucleated RBC 0 %; Platelet Count 168 10^3/uL (130-400); RBC 4.77 10^6/uL (4.36-5.78); RDW 14.8 % (11.8-14.1); RDW-SD 44.9 fL; WBC 6.37 10^3/uL (4.4-10.8)
[2021-05-13] MEDS: ACETAMINOPHEN 1,000 MG/100 ML BTL 400 MG IVPB (16:01)
[2021-05-13] MEDS: Normal Saline 250 ML IV (16:02)
[2021-05-13] MEDS: Albuterol/Ipratropium 3 ML UPD VIAL UPD (16:09)
[2021-05-13 16:22] LABS: ALT 25 U/L (16-63); AST 17 U/L (15-37); Albumin 4.2 g/dL (3.4-5.0); Alkaline Phosphatase 74 U/L (46-116); Anion Gap 8.5 mmol/L (3-11); BUN 15 mg/dL (7-18); Bilirubin, Total 0.3 mg/dL (0.2-1.0); CO2 25.5 mmol/L (21.0-32.0); CREATININE 1.3 mg/dL (0.70-1.30); Calcium 8.4 mg/dL (8.5-10.1); Chloride 104 mmol/L (98-107); Estimated GFR 54.42 (mL/min/1.73m2); Glucose 242 mg/dL (74-106); Potassium 3.6 mmol/L (3.5-5.1); Sodium 138 mmol/L (136-145); Total Protein 7.5 g/dL (6.4-8.2)
[2021-05-13 16:24] LABS: Troponin I < 0.05 ng/mL (<0.06)
--- NOTE | 2021-05-13 16:41 | DI.VRAD_ITS ---
PROCEDURE INFORMATION: Exam: XR Chest Exam date and time: 05/13/2021 3:45 PM Age: 70 years old Clinical indication: Cough and other: SOB TECHNIQUE: Imaging protocol: XR of the chest. Views: 1 view. COMPARISON: XR PORTABLE CHEST AP 01/06/2021 11:37 PM FINDINGS: Lungs: Unremarkable. No consolidation. Pleural spaces: Unremarkable. No pleural effusion. No pneumothorax. Heart/Mediastinum: No cardiomegaly. Bones/joints: Sternotomy wires and mediastinal surgical clips, consistent with coronary arterial bypass grafting. IMPRESSION: No acute findings. Dictated and Authenticated by: Drea Guadalupe MD. Ordering:RU Chiu MD
[2021-05-14 15:25] LABS: COVID-19 RT-PCR UVMMC Result Negative (Negative)
--- NOTE | 2021-05-16 09:09 | NUR.NOTE ---
informed of negative covid result via phone.Nursing Note:
== END 2021-05-13 17:48 | disposition home or self-care (01) ==
PROVIDERS: Emergency Provider Physician Assistant; PCP Family Medicine
DX: J06.9 Acute upper respiratory infection, unspecified (principal); B34.9 Viral infection, unspecified; R51.9 Headache, unspecified; R07.89 Other chest pain; E11.9 Type 2 diabetes mellitus without complications; Z79.4 Long term (current) use of insulin; Z20.822 Contact with and (suspected) exposure to COVID-19
CPT/HCPCS: 36415; 80053; 93005; 94640; 96361; 96365; 99285; U0003; U0005; 71045; 83735; 84484; 85025; 93010; J0131; J7620

== ENCOUNTER 2021-06-07 13:21 | Emergency (ER) | payer MEDICARE, OTHER, SELFPAY ==
[2021-06-07] VITALS (38 sets, daily range): BP systolic 131–172; BP diastolic 75–109; PULSE 91–106; RESP 14–31; TEMP 36.6; O2SAT 94–99
--- NOTE | 2021-06-07 13:15 | RT.EKG_ITS ---
APPROVED REPORT Exam: Resting ECG Reason for Exam: CHEST PAIN Patient Location: E HR:95 bpm ECG Measurements Heart Rate 95 AXIS CA 126 P 43 QRSd 85 QRS 16 QT 378 T 192 QTc 475 Conclusion Sinus rhythm...normal P axis, V-rate 60- 99 Atrial premature complexes...SV complexes w/ short R-R intvls Nonspecific T abnormalities, diffuse leads...T <-0.10mV, ant/lat/inf
[2021-06-07] MEDS: nitroGLYcerin 0.4 MG TAB SL ×2 (13:49→13:57)
--- NOTE | 2021-06-07 13:49 | ED.GENADUL_ITS ---
Discharge Plan Disposition Patient Disposition: HOME Discharge Details Clinical Impression: Chest pain Primary Care Provider: Alisa Ramirez ED Provider: Solomon Quiñones Home Meds and New Rx's Prescriptions: Continued triamcinolone acetonide 0.1 % Ointment 1 applic TOPICAL BID RF: 0 phenazopyridine 200 mg Tablet 200 mg PO TID PRNRF: 0 acetylcysteine [NAC] 600 mg capsule 600 mg PO BID RF: 0 cod liver oil Capsule 1 cap PO DAILY RF: 0 metoprolol succinate 50 mg tablet extended release 24 hr 50 mg PO DAILY RF: 0 citalopram 20 mg tablet 10 mg PO DAILY RF: 0 diclofenac sodium [Voltaren] 1 % gel 2 g topical QID RF: 0 ranolazine [Ranexa] 500 mg tablet extended release 12 hr 500 mg PO BID RF: 0 amlodipine 2.5 mg tablet 2.5 mg PO DAILY Qty: 90 RF: 3 polyethylene glycol 3350 [Miralax] 17 GM powder in packet 17 g PO DAILY PRNQty: 255 RF: 0 nitroglycerin [Nitrostat] 0.4 MG tablet, sublingual 0.4 mg Sublingual as directed RF: 0 docusate sodium [Dulcolax Stool Softener (dss)] 100 MG capsule 100 mg PO DIRECTED PRNRF: 0 Levemir FlexTouch U-100 Insuln 100 UNIT/1 ML insulin pen 80 units subcut BID RF: 0 levothyroxine 50 MCG tablet 50 mcg PO DAILY@0730 RF: 0 allopurinol 300 MG tablet 300 mg PO DAILY RF: 0 quetiapine [Seroquel] 300 MG tablet 300 mg PO HS RF: 0 rosuvastatin [Crestor] 20 MG tablet 20 mg PO HS RF: 0 metformin [Glucophage] 1,000 mg Tablet 1,000 mg PO BID RF: 0 lisinopril 20 mg Tablet 30 mg PO DAILY RF: 0 potassium chloride 10 mEq Tablet Extended Release 10 meq PO DAILY RF: 0 isosorbide mononitrate 60 mg tablet extended release 24 hr 60 mg PO DAILY RF: 0 lidocaine [Lidoderm] 1 PATCH patch 1 patch Topical Q24H Qty: 4 RF: 0 methocarbamol 500 mg tablet 500 mg PO Q6H PRN (Reason: muscle spasm) Qty: 14 RF: 0 tramadol 50 mg tablet 50 mg PO TID PRN (Reason: pain) Qty: 10 RF: 0 docusate sodium [Colace] 100 mg Capsule 100 mg PO DAILY PRNRF: 0 topiramate 25 mg tablet 25 mg PO HS RF: 0 gabapentin 300 mg capsule 300 mg PO BID RF: 0 cholecalciferol (vitamin D3) [Vitamin D3] 1,000 unit Tablet 1,000 unit PO DAILY RF: 0 Victoza 2-Thanh 0.6 mg/0.1 mL (18 mg/3 mL) pen injector 1.8 mg SUBCUT DAILY RF: 0 magnesium 200 mg Tablet 400 mg PO DAILY RF: 0 finasteride 5 mg tablet 5 mg PO DAILY RF: 0 No Action carboxymethylcellulose sodium [Refresh Tears] 0.5 % Drops 1 drp OPHTHALMIC (EYE) QID PRNRF: 0 carboxymethylcellulose sodium [Refresh Tears] 0.5 % drops 1 drp OP 4-6XD PRNRF: 0 bisacodyl [Dulcolax (bisacodyl)] 5 mg tablet,delayed release (DR/EC) 5 mg PO DAILY PRNRF: 0 finasteride 5 mg tablet 5 mg PO DAILY Qty: 90 RF: 4 riboflavin (vitamin B2) [Vitamin B-2] 100 mg tablet 400 mg PO BID RF: 0 topiramate 50 mg tablet 50 mg PO DAILY RF: 0 pantoprazole [Protonix] 40 mg tablet,delayed release (DR/EC) 40 mg PO DAILY Qty: 30 RF: 0 magnesium 250 mg Tablet 400 mg PO DAILY RF: 0 Discharge Instructions Additional Instructions: It was recommended that you stay in the emergency part for additional diagnostics today including a third cardiac troponin. You have declined this recommended treatment and understand that you may have life-threatening or lifestyle modifying disease that would go undiagnosed and untreated. Please rest. No exertional activities until cleared Please take your nitroglycerin as prescribed for chest pain. Please follow-up with your family court registrar and primary care physician on Wednesday. Return to the ER immediately should you have any worsening or new concerning symptoms. Referrals: Alisa Ramirez MD [Primary Care Provider] - Medical Decision Making 1400 --70-year-old male with past medical history significant for coronary artery disease status post two-vessel CABG, multiple PCI's, ischemic cardiomyopathy, diabetes, hypertension, hyperlipidemia DONALDO and subdural hemorrh age x4, here with intermittent chest pain over the past 5 days does respond to nitroglycerin. He currently has mild pain but has not taken nitroglycerin yet today. I will provide nitroglycerin at this time. Consider ACS. Screening EKG was reviewed and interpreted by me: Sinus rhythm, 95 bpm, no STEMI, not septic to abnormalities, no significant change from prior05/13/21. I will check troponin. Patient cannot receive aspirin or anticoagulants given history of subdural hemorrhage. --Patient reassessed and pain resolved --Chest x-ray reviewed and interpreted by radiology: No acute findings. Labs reviewed and initial troponin negative. Patient was kept in the emergergency department observe for over 3 hours. A repeat troponin was obtained and negative. No arrhythmia noted. Repeat EKG unchanged. I spoke with the patient regarding diagnostic results. I recommended additional diagnostics including third troponin and patient provided informed refusal of recommended diagnostic. He would prefer to go home at this time. He notes that he unstanderstands he has chronic illness and does plan to take nitroglycerin when he has recurrent pain. I did encouraged him to return at any time and immediately for worsening or new concerning symptom. Patient was encouraged to rest over the next few days and to follow-up with his primary care physician on Wednesday Lab Data Lab results reviewed: Yes I reviewed the patient's lab results. Labs: Laboratory Tests Range/Units 06/07/21 06/07/21 06/07/21 13:40 13:40 16:50 WBC (4.4-10.8) 10^3/uL 5.55 RBC (4.36-5.78) 10^6/uL 4.48 Hgb (13.5-17.5) g/dL 12.7 L Hct (40.0-50.0) % 38.3 L MCV (80-95) fL 85.5 MCH (27.0-33.0) pg 28.3 MCHC (32.0-36.0) % 33.2 RDW (11.8-14.1) % 14.9 H Plt Count (130-400) 10^3/uL 169 MPV (8.0-11.0) fL 8.7 Immature Gran % 0.4 Neutrophils % 66.8 Lymphocytes % 18.7 Monocytes % 8.5 Eosinophils % 4.3 Basophils % 1.3 Nucleated RBC % % 0 Absolute Neutrophils (1.2-6.7) 10^3/uL 3.71 Absolute Lymphocytes (1.2-3.4) 10^3/uL 1.04 L Absolute Monocytes (0.1-0.8) 10^3/uL 0.47 Absolute Eosinophils (0.0-0.7) 10^3/uL 0.24 Absolute Basophils (0.0-0.2) 10^3/uL 0.07 Sodium (136-145) mmol/L 140 Potassium (3.5-5.1) mmol/L 3.8 Chloride (98-107) mmol/L 106 Carbon Dioxide (21.0-32.0) mmol/L 21.1 Anion Gap (3-11) mmol/L 12.9 H BUN (7-18) mg/dL 17 Creatinine (0.70-1.30) mg/dL 1.4 H Estimated GFR/1.73 m2 (mL/min/1.73m2) 49.96 Glucose (74-106) mg/dL 220 H Calcium (8.5-10.1) mg/dL 8.5 Total Bilirubin (0.2-1.0) mg/dL 0.3 AST (15-37) U/L 37 ALT (16-63) U/L 39 Alkaline Phosphatase (46-116) U/L 75 Troponin I (<or=60) ng/L < 50 < 50 Total Protein (6.4-8.2) g/dL 7.0 Albumin (3.4-5.0) g/dL 3.9 HPI General Mode of arrival: ambulatory . Date/Time Provider Initiated Documentation: 06/07/21 13:28 . Limitations to Documentation: no limitations . Information obtained by: patient . HPI Narrative: 70yo m with multiple medical problems including history of coronary artery disease disease status post two- vessel CABG, multiple PCI's, ischemic cardiomyopathy, diabetes, hypertension, hyperlipidemia, DONALDO and subdural hemorrhage x4, who presents today for evaluation of chest pain. Patient has she has had intermittent chest pain over the past 5 days. Patient states he has been told to take nitroglycerin for his chest pain which he has been taking and it does resolve his pain. Pain is currently left anterior chest rating to his left upper arm and rated 4/10 severity. He has not taken nitroglycerin today. No associated leg pain or calf swelling. No associated shortness of breath. No nausea or vomiting. Related Data Home Medications Medication Instructions Recorded Confirmed allopurinol 300 mg PO DAILY 01/24/13 06/07/21 levothyroxine 50 mcg PO DAILY@0730 01/24/13 06/07/21 quetiapine [Seroquel] 300 mg PO HS 01/24/13 06/07/21 rosuvastatin [Crestor] 20 mg PO HS 03/22/17 06/07/21 docusate sodium [Dulcolax Stool 100 mg PO DIRECTED PRN 04/08/17 06/07/21 Softener (dss)] nitroglycerin [Nitrostat] 0.4 mg SUBLINGUAL as directed 04/08/17 06/07/21 polyethylene glycol 3350 [Miralax] 17 g PO DAILY PRN #255 gm 04/08/17 06/07/21 Levemir FlexTouch U-100 Insuln 80 units SUBCUT BID 08/04/17 06/07/21 cholecalciferol (vitamin D3) 1,000 unit PO DAILY 11/11/18 06/07/21 [Vitamin D3] metformin [Glucophage] 1,000 mg PO BID 03/08/19 06/07/21 riboflavin (vitamin B2) 100 mg 400 mg PO BID tab 03/28/19 05/13/21 tablet bisacodyl 5 mg tablet,delayed 5 mg PO DAILY PRN tab 04/17/19 05/13/21 release carboxymethylcellulose sodium 0.5 1 drp OP 4-6XD PRN 04/17/19 05/13/21 % eye drops cod liver oil 1 cap PO DAILY 04/17/19 06/07/21 pantoprazole [Protonix] 40 mg PO DAILY #30 tab 04/25/19 05/13/21 metoprolol succinate 50 mg 50 mg PO DAILY 05/10/19 06/07/21 tablet,extended release 24 hr acetylcysteine 600 mg capsule 600 mg PO BID cap 05/16/19 06/07/21 citalopram 20 mg tablet 10 mg PO DAILY tab 05/16/19 06/07/21 lisinopril 30 mg PO DAILY 05/24/19 06/07/21 magnesium 400 mg PO DAILY 07/07/19 05/13/21 diclofenac sodium 1 % topical gel 2 g TOPICAL QID 04/30/20 06/07/21 ranolazine 500 mg tablet,extended 500 mg PO BID 04/30/20 06/07/21 release,12 hr Victoza 2-Thanh 1.8 mg SUBCUT DAILY 06/19/20 06/07/21 isosorbide mononitrate 60 mg PO DAILY 09/18/20 06/07/21 potassium chloride 10 meq PO DAILY 09/18/20 06/07/21 lidocaine [Lidoderm] 1 patch TOPICAL Q24H #4 ea 10/14/20 06/07/21 methocarbamol 500 mg PO Q6H PRN #14 tab 11/07/20 06/07/21 triamcinolone acetonide 1 applic TOPICAL BID 11/13/20 06/07/21 tramadol 50 mg PO TID PRN #10 tab 01/04/21 06/07/21 docusate sodium [Colace] 100 mg PO DAILY PRN 01/07/21 06/07/21 topiramate 25 mg PO HS 01/09/21 05/13/21 topiramate 50 mg PO DAILY 01/09/21 06/07/21 amlodipine 2.5 mg tablet 2.5 mg PO DAILY #90 tab 02/04/21 06/07/21 gabapentin 300 mg capsule 300 mg PO BID cap 02/04/21 06/07/21 finasteride 5 mg tablet 5 mg PO DAILY #90 tab 02/14/21 05/13/21 carboxymethylcellulose sodium 1 drp OPHTHALMIC (EYE) QID PRN 03/27/21 05/13/21 [Refresh Tears] phenazopyridine 200 mg PO TID PRN 03/27/21 06/07/21 finasteride 5 mg PO DAILY 06/07/21 06/07/21 magnesium 400 mg PO DAILY 06/07/21 06/07/21 Previous Rx's Medication Instructions Recorded pantoprazole [Protonix] 40 mg PO DAILY #30 tab 04/25/19 lidocaine [Lidoderm] 1 patch TOPICAL Q24H #4 ea 10/14/20 methocarbamol 500 mg PO Q6H PRN #14 tab 11/07/20 tramadol 50 mg PO TID PRN #10 tab 01/04/21 amlodipine 2.5 mg tablet 2.5 mg PO DAILY #90 tab 02/04/21 finasteride 5 mg tablet 5 mg PO DAILY #90 tab 02/14/21 Allergies Allergy/AdvReac Type Severity Reaction Status Date / Time amoxicillin Allergy Severe breathing Unverified 06/07/21 13:30 difficuty and vomiting Penicillins Allergy Intermediate Skin Rash Unverified 06/07/21 13:30 sulfamethoxazole Allergy Intermediate Skin Rash Unverified 06/07/21 13:30 [From Bactrim] trimethoprim [From Bactrim] Allergy Intermediate Skin Rash Unverified 06/07/21 13:30 oxycodone HCl [From Percocet] AdvReac Severe Contraindic Unverified 06/07/21 13:30 ated oxycodone terephthalate AdvReac Severe Contraindic Unverified 06/07/21 13:30 [From Percodan] ated General Stated Complaint: Chest Pain MADELIN: 2 Review of Systems All systems reviewed & are unremarkable except as noted in HPI and below Constitutional Constitutional: Denies fever(s) Cardiovascular Cardiovascular: Reports chest pain PFSH All Active Problems (Updated 06/07/21 @ 17:41 by Solomon Quiñones MD) Viral URI with cough (Acute) Chest pain (Acute) Unstable angina (Acute) UTI (urinary tract infection) (Acute) UTI (urinary tract infection) (Acute) Arthritis of right hip (Acute) Contusion of right hip (Acute) Left rib fracture (Acute) Rib pain on left side (Acute) Chest wall muscle strain (Acute) History of rib fracture (Acute) Head trauma (Acute) Discharge planning issues (Acute) DVT prophylaxis (Acute) Chronic subdural hematoma (Chronic) Chest pain (Acute) Pituitary abnormality (Acute) Neck pain (Acute) Hand weakness (Acute) Cubital tunnel syndrome on right (Acute) Lower urinary tract symptoms (Chronic) Lumbar radiculitis (Acute) Lumbosacral spondylosis without myelopathy (Acute) Chronic rhinitis (Chronic) Atypical chest pain (Acute) Musculoskeletal; Negative NPI 04/29/2018 Urethral stricture (Acute 08/20/15) Sensory hearing loss, bilateral (Chronic 04/09/14) Sensorineural hearing loss, asymmetrical (Chronic 05/12/13) Postnasal drip (Chronic 05/13/15) Mild cognitive impairment (Chronic 01/31/18) Hypertrophy of nasal turbinates (Chronic 08/05/15) 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) Deviated nasal septum (Chronic 08/05/15) Thoracic spondylosis without myelopathy (Chronic) Coronary artery disease (Chronic) Hyperlipidemia (Chronic) Diabetes mellitus type 2 in obese (Chronic) Medical History Anemia, iron deficiency Chronic low back pain Colon polyps Constipation, chronic Depression Diastasis recti DM type 2 (diabetes mellitus, type 2) Fatty liver GERD (gastroesophageal reflux disease) Gout H/O alcohol abuse Headaches due to 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 Hx of deep venous thrombosis Hx of traumatic brain injury Hyperlipidemia Hypertension Hypothyroidism Knee pain, right Migraine headache Mild dementia MRSA infection Obstructive sleep apnea Pain in joint of right foot Rathke's pouch cyst Recurrent UTI Rhinorrhea Right sided weakness Tinea pedis Urethral stricture Vitamin D deficiency Volvulus of cecum Surgical History Appendectomy (06/01/16) Colonoscopy - MAC 2009-5year f/u 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 electroconvulsive therapy Extraction of cataract facial lesion removal Repair of inguinal hernia (08/05/17) right inguinal hernia repair by Dr Arroyo on 08/05/17 Repair of umbilical hernia Social History Smoking/Tobacco Use Status: Never Smoking risk assessment performed?: Yes Alcohol Intake: former Drug use: Never Substance use type: does not use Household members: spouse Housing: house Pets and animals: Yes Pets and animals: dog(s) Do you feel safe at home: Yes Do you feel safe in your relationship?: Yes Exam Const General: cooperative and no acute distress HENMT Mouth: moist mucous membranes Eyes Conjunctivae: normal conjunctivae Sclera: normal sclerae Neck Neck: trachea midline and supple Resp Auscultation: clear to auscultation bilaterally, no rales, no rhonchi and no wheezes Cardio Rate: regular rate and not tachycardic Rhythm: regular rhythm GI Palpation: soft, not firm, no guarding, no masses, not rigid and nontender Skin General skin exam: no rashes or lesions noted Neuro General: patient alert, patient awake, patient oriented x3 and tone normal Extrem General: no calf tenderness and no edema Psych Appearance: grossly normal Mental Status: mental status grossly normal Speech and Movement: speech and movement normal Course Vital Signs Vital signs: Vital Signs Temperature 36.6 C 06/07/21 13:26 Pulse 97 H 06/07/21 13:26 Respiratory Rate 23 06/07/21 13:26 Blood Pressure 160/86 H 06/07/21 13:26 Temperature 36.6 C 06/07/21 13:26 Temperature Source Temporal Artery Scan 06/07/21 13:26 Pulse 97 H 06/07/21 13:26 Respiratory Rate 23 06/07/21 13:26 Respiratory Effort Non-Labored 06/07/21 13:44 Blood Pressure 160/86 H 06/07/21 13:26 Blood Pressure Position Supine 06/07/21 13:26 Oxygen Delivery Method Room Air 06/07/21 13:26 Oxygen Flow Rate 0 06/07/21 13:26 Pain Level 5 06/07/21 13:26
[2021-06-07 13:54] LABS: Abs Immature Grans 0.02 10^3/uL (0.0-0.06); Absolute Basophil Count 0.07 10^3/uL (0.0-0.2); Absolute Eosinophil Count 0.24 10^3/uL (0.0-0.7); Absolute Lymphocyte Count 1.04 10^3/uL (1.2-3.4); Absolute Monocyte Count 0.47 10^3/uL (0.1-0.8); Absolute Neutrophil Count 3.71 10^3/uL (1.2-6.7); Basophils % 1.3; Eosinophils % 4.3; HCT 38.3 % (40.0-50.0); HGB 12.7 g/dL (13.5-17.5); Immature Grans % 0.4; Lymphocytes % 18.7; MCH 28.3 pg (27.0-33.0); MCHC 33.2 % (32.0-36.0); MCV 85.5 fL (80-95); MPV 8.7 fL (8.0-11.0); Monocytes % 8.5; Neutrophils % 66.8; Nucleated RBC 0 %; Platelet Count 169 10^3/uL (130-400); RBC 4.48 10^6/uL (4.36-5.78); RDW 14.9 % (11.8-14.1); RDW-SD 45.7 fL; WBC 5.55 10^3/uL (4.4-10.8)
--- NOTE | 2021-06-07 14:00 | DI.RAD_ITS ---
Exam(s) XR PORTABLE CHEST AP EXAM: XR PORTABLE CHEST AP CLINICAL HISTORY: chest pain TECHNIQUE: 2D digital imaging was performed. COMPARISON: CR,XR XR PORTABLE CHEST AP from 05/13/2021 FINDINGS: Sternal wires and mediastinal clips. Heart size within normal limits. No infiltrate, effusion or pu lmonary edema. IMPRESSION: No acute pulmonary findings. DATA REPOSITORY: RADIATION DOSE DELIVERED:
[2021-06-07] MEDS: Normal Saline Flush 10 ML SYR IVP (14:05)
[2021-06-07 14:16] LABS: ALT 39 U/L (16-63); AST 37 U/L (15-37); Albumin 3.9 g/dL (3.4-5.0); Alkaline Phosphatase 75 U/L (46-116); Anion Gap 12.9 mmol/L (3-11); BUN 17 mg/dL (7-18); Bilirubin, Total 0.3 mg/dL (0.2-1.0); CO2 21.1 mmol/L (21.0-32.0); CREATININE 1.4 mg/dL (0.70-1.30); Calcium 8.5 mg/dL (8.5-10.1); Chloride 106 mmol/L (98-107); Estimated GFR 49.96 (mL/min/1.73m2); Glucose 220 mg/dL (74-106); Potassium 3.8 mmol/L (3.5-5.1); Sodium 140 mmol/L (136-145); Troponin I < 50 ng/L (<or=60)
--- NOTE | 2021-06-07 16:11 | DI.VRAD_ITS ---
PROCEDURE INFORMATION: Exam: XR Chest Exam date and time: 06/07/2021 2:01 PM Age: 70 years old Clinical indication: Pain; Chest pressure TECHNIQUE: Imaging protocol: XR of the chest. Views: 1 view. COMPARISON: 1. XR PORTABLE CHEST AP 05/13/2021 3:53 PM 2. XR PORTABLE CHEST AP 05/13/2021 3:53:03 PM 3. XR PORTABLE CHEST AP 01/06/2021 11:37:37 PM FINDINGS: Lungs: Unremarkable. No consolidation. Pleural spaces: Unremarkable. No pleural effusion. No pneumothorax. Heart/Mediastinum: Sternotomy sutures and mediastinal clips again noted. No cardiomegaly. Bones/joints: Unremarkable. IMPRESSION: No acute findings. Dictated and Authenticated by: Alban Mars MD. Ordering:MARINA Carbajal MD
--- NOTE | 2021-06-07 16:45 | RT.EKG_ITS ---
APPROVED REPORT Exam: Resting ECG Reason for Exam: chest pain Patient Location: E HR:87 bpm ECG Measurements Heart Rate 87 AXIS NV 127 P 47 QRSd 90 QRS 18 QT 366 T 205 QTc 439 Conclusion Sinus rhythm...normal P axis, V-rate 60- 99 Atrial premature complex...SV complex w/ short R-R interval Nonspecific T abnormalities, diffuse leads...T <-0.10mV, ant/lat/inf no change
[2021-06-07 17:11] LABS: Troponin I < 50 ng/L (<or=60)
== END 2021-06-07 17:50 | disposition home or self-care (01) ==
PROVIDERS: Emergency Provider Student in an Organized Health Care Education/Training Program; PCP Family Medicine
DX: R07.9 Chest pain, unspecified (principal)
CPT/HCPCS: 36415; 80053; 93005; 99284; 71045; 84484; 85025; 93010; 99283

== ENCOUNTER 2021-06-11 18:31 | Outpatient (REF) | payer MEDICARE, OTHER, SELFPAY ==
[2021-06-11 19:37] LABS: COMMENT (LAB VIEW ONLY) 58.28 mg/dL
[2021-06-11 19:40] LABS: Microalb ug/mg Crea 121.5 ug/mg Cr
== END 2021-06-11 18:32 | disposition home or self-care (01) ==
LOC: NCHCN 18:31
PROVIDERS: PCP Family Medicine; Visit Provider Family Medicine
DX: E11.9 Type 2 diabetes mellitus without complications (principal)
CPT/HCPCS: 82043; 82570

== ENCOUNTER 2021-06-19 18:45 | Emergency (ER) | payer MEDICARE, OTHER, SELFPAY ==
[2021-06-19] VITALS (32 sets, daily range): BP systolic 125–162; BP diastolic 78–98; PULSE 89–105; RESP 19–28; TEMP 36.5; O2SAT 96–99
--- NOTE | 2021-06-19 18:45 | RT.EKG_ITS ---
APPROVED REPORT Exam: Resting ECG Reason for Exam: chest pain Patient Location: E HR:96 bpm ECG Measurements Heart Rate 96 AXIS CO 132 P 49 QRSd 88 QRS 27 QT 365 T 212 QTc 461 Conclusion Sinus rhythm...normal P axis, V-rate 60- 99
--- NOTE | 2021-06-19 19:00 | DI.RAD_ITS ---
Exam(s) XR CHEST 2V PA LATERAL EXAM: XR CHEST 2V PA LATERAL CLINICAL HISTORY: chest pain TECHNIQUE: COMPARISON: CR,XR XR PORTABLE CHEST AP from 06/07/2021 FINDINGS: The heart is not enlarged. There are multiple mediastinal vascular clips consistent with prior CABG surgery. The lungs are grossly clear with mild changes of scarring, unchanged from prior examination of June 07. No pleural effusion seen. IMPRESSION: No evidence of acute process. RADIATION DOSE DELIVERED: Total DLP
--- NOTE | 2021-06-19 19:01 | ED.GENADUL_ITS ---
Discharge Plan Disposition Patient Disposition: HOME Condition: Stable Discharge Details Clinical Impression: Chest pain Primary Care Provider: Alisa Ramirez ED Provider: Unruly Vaughan Home Meds and New Rx's Prescriptions: Continued triamcinolone acetonide 0.1 % Ointment 1 applic TOPICAL BID RF: 0 phenazopyridine 200 mg Tablet 200 mg PO TID PRNRF: 0 carboxymethylcellulose sodium [Refresh Tears] 0.5 % Drops 1 drp OPHTHALMIC (EYE) QID PRNRF: 0 acetylcysteine [NAC] 600 mg capsule 600 mg PO BID RF: 0 cod liver oil Capsule 1 cap PO DAILY RF: 0 bisacodyl [Dulcolax (bisacodyl)] 5 mg tablet,delayed release (DR/EC) 5 mg PO DAILY PRNRF: 0 metoprolol succinate 50 mg tablet extended release 24 hr 50 mg PO DAILY RF: 0 citalopram 20 mg tablet 10 mg PO DAILY RF: 0 diclofenac sodium [Voltaren] 1 % gel 2 g topical QID RF: 0 ranolazine [Ranexa] 500 mg tablet extended release 12 hr 500 mg PO BID RF: 0 finasteride 5 mg tablet 5 mg PO DAILY Qty: 90 RF: 4 polyethylene glycol 3350 [Miralax] 17 GM powder in packet 17 g PO DAILY PRNQty: 255 RF: 0 nitroglycerin [Nitrostat] 0.4 MG tablet, sublingual 0.4 mg Sublingual as directed RF: 0 Levemir FlexTouch U-100 Insuln 100 UNIT/1 ML insulin pen 75 units subcut BID RF: 0 riboflavin (vitamin B2) [Vitamin B-2] 100 mg tablet 400 mg PO BID RF: 0 levothyroxine 50 MCG tablet 50 mcg PO DAILY@0730 RF: 0 allopurinol 300 MG tablet 300 mg PO DAILY RF: 0 quetiapine [Seroquel] 300 MG tablet 300 mg PO HS RF: 0 rosuvastatin [Crestor] 20 MG tablet 20 mg PO HS RF: 0 metformin [Glucophage] 1,000 mg Tablet 1,000 mg PO BID RF: 0 lisinopril 20 mg Tablet 30 mg PO DAILY RF: 0 potassium chloride 10 mEq Tablet Extended Release 10 meq PO DAILY RF: 0 isosorbide mononitrate 60 mg tablet extended release 24 hr 60 mg PO DAILY RF: 0 lidocaine [Lidoderm] 1 PATCH patch 1 patch Topical Q24H Qty: 4 RF: 0 methocarbamol 500 mg tablet 500 mg PO Q6H PRN (Reason: muscle spasm) Qty: 14 RF: 0 docusate sodium [Colace] 100 mg Capsule 100 mg PO DAILY PRNRF: 0 topiramate 25 mg tablet 25 mg PO DAILY AM RF: 0 topiramate 50 mg tablet 50 mg PO HS RF: 0 amlodipine 2.5 mg tablet 5 mg PO DAILY RF: 0 tramadol 50 mg tablet 50 mg PO Q6H PRN PRN (Reason: pain) RF: 0 gabapentin 300 mg capsule 300 mg PO BID RF: 0 cholecalciferol (vitamin D3) [Vitamin D3] 1,000 unit Tablet 1,000 unit PO DAILY RF: 0 pantoprazole [Protonix] 40 mg tablet,delayed release (DR/EC) 40 mg PO DAILY Qty: 30 RF: 0 Victoza 2-Thanh 0.6 mg/0.1 mL (18 mg/3 mL) pen injector 1.8 mg SUBCUT DAILY RF: 0 magnesium 200 mg Tablet 400 mg PO DAILY RF: 0 finasteride 5 mg tablet 5 mg PO DAILY RF: 0 Discharge Instructions Instructions: Chest Pain (ED) Additional Instructions: Laboratory values do not reveal any obvious emergent process and you have responded nicely to the medications. Be sure to be taking all of your medications as directed. I am setting you up for an outpatient stress test, our radiology department should be reaching out to you but if you do not hear from them over the next 48 hours I recommend reaching out to them yourself. Rest, no exertional activities until your stress test and cleared to return to normal activities. Please contact both your primary care provider and your percussion teacher tomorrow to discuss your ER visit, ongoing symptoms, need for outpatient reevaluation. Please watch for new or worsening symptoms and return to the ER for any concerns Medical Decision Making This is a 70-year-old gentleman with significant past medical history presenting to the ER reporting chest pain that has been intermittent but present more often than not for 2-3 weeks, present all day today. He took nitro with no relief. He was seen in the ER 12 days ago and had a negative work-up at that time. Patient clinically appears well, nontoxic, hemodynamically stable. I do consider ACS, initial EKG does not reveal STEMI, no significant change when compared to most recent visit. Given his history of subdural hemorrhage, patient cannot receive aspirin or anticoagulants. IV established and will proceed with a cardiac work-up. He has already taken 2 nitro today, will give a third nitro. Examination is not consistent with PE, dissection, etc. Reviewing his records, it would appear as though he had a chest CT back in September of this year. Patient reports mild headache with the nitro but denies any additional change of his chest or arm pain. Clinically the pain is reproducible and worse with movement, it does appear to be some musculoskeletal component. Will provide a Lidoderm patch Initial laboratory values unremarkable, troponin is not elevated. Upon reviewing his medications in more depth, it does appear as though he takes tramadol and methocarbamol, he states he has not taken them today, will give these medications now as well. Given the duration of his symptoms, low suspicion for ACS. Upon reevaluation patient reports that his chest pain has resolved completely and the arm pain has almost completely resolved. He does report increased belching today, will give a GI cocktail Upon reevaluation patient reports belching improved, denies any chest pain or arm pain. He is agreeable to awaiting a 3-hour delta troponin. Delta troponin unchanged. He remains asymptomatic. Given his symptoms that have been ongoing for 2-3, will set the patient up for an outpatient stress test. Unfortunately is a holiday weekend and I confirmed with radiology that if the patient was admitted overnight for observation we would not be able to e xpedite a stress test and/or echocardiogram. Given this, see little advantage to admit the patient for observation overnight as he has had 2 - troponins today and his symptoms have been present for 2-3 weeks. I did speak with the patient's , Brittany, on the phone who did not have any additional questions or concerns and was comfortable picking them up in his current condition. Patient is comfortable with this plan and has no additional questions or concerns. Strict discharge and return precautions provided. Otherwise he will reach out to his primary care provider and percussion teacher tomorrow to discuss his ongoing symptoms and need for outpatient reevaluation This documentation was generated using [employer] system, please disregard any oddities of phrase or misspellings. Medical Records Medical records reviewed: Yes I reviewed the patient's medical records. Imaging Data Radiologic Study: Attestation: I personally reviewed and interpreted this imaging study as follows: Imaging: X-Ray Radiologist's impression: PROCEDURE INFORMATION: Exam: XR Chest Exam date and time: 06/19/2021 7:11 PM Age: 70 years old Clinical indication: Chest pain TECHNIQUE: Imaging protocol: XR of the chest. Views: 2 views. COMPARISON: XR PORTABLE CHEST AP 06/07/2021 2:22 PM FINDINGS: Lungs: Clear lungs. Pleural spaces: No pneumothorax. No sizable pleural effusion. Heart/Mediastinum: CABG. No cardiomegaly. Bones/joints: Sternotomy. IMPRESSION: Clear lungs Lab Data Lab results reviewed: Yes I reviewed the patient's lab results. Labs: Laboratory Tests Range/Units 06/19/21 06/19/21 19:10 19:10 WBC (4.4-10.8) 10^3/uL 6.40 RBC (4.36-5.78) 10^6/uL 4.83 Hgb (13.5-17.5) g/dL 14.1 Hct (40.0-50.0) % 41.3 MCV (80-95) fL 85.5 MCH (27.0-33.0) pg 29.2 MCHC (32.0-36.0) % 34.1 RDW (11.8-14.1) % 14.9 H Plt Count (130-400) 10^3/uL 205 MPV (8.0-11.0) fL 8.8 Immature Gran % 0.5 Neutrophils % 63.9 Lymphocytes % 20.9 Monocytes % 9.2 Eosinophils % 3.8 Basophils % 1.7 Nucleated RBC % % 0 Absolute Neutrophils (1.2-6.7) 10^3/uL 4.09 Absolute Lymphocytes (1.2-3.4) 10^3/uL 1.34 Absolute Monocytes (0.1-0.8) 10^3/uL 0.59 Absolute Eosinophils (0.0-0.7) 10^3/uL 0.24 Absolute Basophils (0.0-0.2) 10^3/uL 0.11 Sodium (136-145) mmol/L 138 Potassium (3.5-5.1) mmol/L 3.9 Chloride (98-107) mmol/L 102 Carbon Dioxide (21.0-32.0) mmol/L 21.8 Anion Gap (3-11) mmol/L 14.2 H BUN (7-18) mg/dL 16 Creatinine (0.70-1.30) mg/dL 1.5 H Estimated GFR/1.73 m2 (mL/min/1.73m2) 46.13 Glucose (74-106) mg/dL 195 H Calcium (8.5-10.1) mg/dL 8.8 Magnesium (1.8-2.4) mg/dL 2.5 H Total Bilirubin (0.2-1.0) mg/dL 0.4 AST (15-37) U/L 29 ALT (16-63) U/L 47 Alkaline Phosphatase (46-116) U/L 81 Troponin I (<or=60) ng/L < 50 Total Protein (6.4-8.2) g/dL 7.9 Albumin (3.4-5.0) g/dL 4.4 ECG Data Attestation: I personally reviewed and interpreted this ECG (s) as follows: Interpretation: Please see official report by Dr. Torrez. Sinus rhythm, ventricular rate of 96. No STEMI. HPI General Mode of arrival: ambulatory . Date/Time Provider Initiated Documentation: 06/19/21 18:46 . Limitations to Documentation: no limitations . Information obtained by: patient . HPI Narrative: This is a 70-year-old gentleman, extensive past medical history which includes CAD status post two- vessel CABG, multiple PCI's, ischemic cardiomyopathy, diabetes, hypertension, hyperlipidemia, subdural hemorrhage x4, presenting to the ER today complaining of left-sided chest pain. Patient states that the pain has been intermittent ever since his recent ER visit on 06-07-21. Patient states that he has occasionally taken nitro and it does help with his overall discomfort. Currently he is complaining of left anterior chest pain that does radiate down his left upper arm, is a 4 or 5 out of 10. He has taken 2 nitro today but reports no significant change with these. He denies recent illness or trauma, fever, shortness of breath, cough, abdominal pain, nausea, vomiting, change in bowel or bladder function, pain or swelling in his legs. Patient has not reached out to his primary care provider for percussion teacher since his most ER visit. Patient does admit that palpation of his chest and movement of his left arm makes his pain worse. Related Data Home Medications Medication Instructions Recorded Confirmed allopurinol 300 mg PO DAILY 01/24/13 06/19/21 levothyroxine 50 mcg PO DAILY@0730 01/24/13 06/19/21 quetiapine [Seroquel] 300 mg PO HS 01/24/13 06/19/21 rosuvastatin [Crestor] 20 mg PO HS 03/22/17 06/19/21 nitroglycerin [Nitrostat] 0.4 mg SUBLINGUAL as directed 04/08/17 06/19/21 polyethylene glycol 3350 [Miralax] 17 g PO DAILY PRN #255 gm 04/08/17 06/19/21 Levemir FlexTouch U-100 Insuln 75 units SUBCUT BID 08/04/17 06/19/21 cholecalciferol (vitamin D3) 1,000 unit PO DAILY 11/11/18 06/19/21 [Vitamin D3] metformin [Glucophage] 1,000 mg PO BID 03/08/19 06/19/21 riboflavin (vitamin B2) 100 mg 400 mg PO BID tab 03/28/19 06/19/21 tablet bisacodyl 5 mg tablet,delayed 5 mg PO DAILY PRN tab 04/17/19 06/19/21 release cod liver oil 1 cap PO DAILY 04/17/19 06/19/21 pantoprazole [Protonix] 40 mg PO DAILY #30 tab 04/25/19 06/19/21 metoprolol succinate 50 mg 50 mg PO DAILY 05/10/19 06/19/21 tablet,extended release 24 hr acetylcysteine 600 mg capsule 600 mg PO BID cap 05/16/19 06/19/21 citalopram 20 mg tablet 10 mg PO DAILY tab 05/16/19 06/19/21 lisinopril 30 mg PO DAILY 05/24/19 06/19/21 diclofenac sodium 1 % topical gel 2 g TOPICAL QID 04/30/20 06/19/21 ranolazine 500 mg tablet,extended 500 mg PO BID 04/30/20 06/19/21 release,12 hr Victoza 2-Thanh 1.8 mg SUBCUT DAILY 06/19/20 06/19/21 isosorbide mononitrate 60 mg PO DAILY 09/18/20 06/19/21 potassium chloride 10 meq PO DAILY 09/18/20 06/19/21 lidocaine [Lidoderm] 1 patch TOPICAL Q24H #4 ea 10/14/20 06/19/21 methocarbamol 500 mg PO Q6H PRN #14 tab 11/07/20 06/19/21 triamcinolone acetonide 1 applic TOPICAL BID 11/13/20 06/19/21 docusate sodium [Colace] 100 mg PO DAILY PRN 01/07/21 06/19/21 topiramate 25 mg PO DAILY AM 01/09/21 06/19/21 topiramate 50 mg PO HS 01/09/21 06/19/21 gabapentin 300 mg capsule 300 mg PO BID cap 02/04/21 06/19/21 finasteride 5 mg tablet 5 mg PO DAILY #90 tab 02/14/21 06/19/21 carboxymethylcellulose sodium 1 drp OPHTHALMIC (EYE) QID PRN 03/27/21 06/19/21 [Refresh Tears] phenazopyridine 200 mg PO TID PRN 03/27/21 06/19/21 finasteride 5 mg PO DAILY 06/07/21 06/19/21 magnesium 400 mg PO DAILY 06/07/21 06/19/21 amlodipine 5 mg PO DAILY 06/19/21 06/19/21 tramadol 50 mg PO Q6H PRN PRN 06/19/21 06/19/21 Previous Rx's Medication Instructions Recorded pantoprazole [Protonix] 40 mg PO DAILY #30 tab 04/25/19 lidocaine [Lidoderm] 1 patch TOPICAL Q24H #4 ea 10/14/20 methocarbamol 500 mg PO Q6H PRN #14 tab 11/07/20 finasteride 5 mg tablet 5 mg PO DAILY #90 tab 02/14/21 Allergies Allergy/AdvReac Type Severity Reaction Status Date / Time amoxicillin Allergy Severe breathing Unverified 06/19/21 18:56 difficuty and vomiting Penicillins Allergy Intermediate Skin Rash Unverified 06/19/21 18:56 sulfamethoxazole Allergy Intermediate Skin Rash Unverified 06/19/21 18:56 [From Bactrim] trimethoprim [From Bactrim] Allergy Intermediate Skin Rash Unverified 06/19/21 18:56 oxycodone HCl [From Percocet] AdvReac Severe Contraindic Unverified 06/19/21 18:56 ated oxycodone terephthalate AdvReac Severe Contraindic Unverified 06/19/21 18:56 [From Percodan] ated General Stated Complaint: Chest Pain MADELIN: 2 Review of Systems Constitutional Constitutional: Denies fatigue, Denies fever(s), Reports headache(s) (Occasionally after taking nitro) and Denies weakness Eyes Eyes: Denies change in vision ENT Ears, Nose, Mouth, and Throat: Denies neck pain Cardiovascular Cardiovascular: Reports chest pain and Denies dyspnea Respiratory Respiratory: Denies cough and Denies dyspnea Gastrointestinal Gastrointestinal: Denies abdominal pain, Denies nausea and Denies vomiting Musculoskeletal Musculoskeletal: Denies back pain, Denies neck pain and Denies numbness Integumentary/Breasts Skin/Breast: Denies rash Neurologic Neurologic: Denies numbness and Denies weakness Endocrine Endocrine: Denies fatigue Hematologic/Lymphatic Hematologic/Lymphatic: Denies easy bleeding and Denies easy bruising PFSH All Active Problems (Updated 06/19/21 @ 21:49 by ROSAURA Millard) Compression fracture of lumbar vertebra (Acute) Viral URI with cough (Acute) Chest pain (Acute) Unstable angina (Acute) UTI (urinary tract infection) (Acute) UTI (urinary tract infection) (Acute) Arthritis of right hip (Acute) Contusion of right hip (Acute) Left rib fracture (Acute) Rib pain on left side (Acute) Chest wall muscle strain (Acute) History of rib fracture (Acute) Head trauma (Acute) Discharge planning issues (Acute) DVT prophylaxis (Acute) Chronic subdural hematoma (Chronic) Chest pain (Acute) Pituitary abnormality (Acute) Neck pain (Acute) Hand weakness (Acute) Cubital tunnel syndrome on right (Acute) Lower urinary tract symptoms (Chronic) Lumbar radiculitis (Acute) Lumbosacral spondylosis without myelopathy (Acute) Chronic rhinitis (Chronic) Atypical chest pain (Acute) Musculoskeletal; Negative NPI 04/29/2018 Urethral stricture (Acute 08/20/15) Sensory hearing loss, bilateral (Chronic 04/09/14) Sensorineural hearing loss, asymmetrical (Chronic 05/12/13) Postnasal drip (Chronic 05/13/15) Mild cognitive impairment (Chronic 01/31/18) Hypertrophy of nasal turbinates (Chronic 08/05/15) 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) Deviated nasal septum (Chronic 08/05/15) Thoracic spondylosis without myelopathy (Chronic) Coronary artery disease (Chronic) Hyperlipidemia (Chronic) Diabetes mellitus type 2 in obese (Chronic) Medical History Anemia, iron deficiency Chronic low back pain Colon polyps Constipation, chronic Depression Diastasis recti DM type 2 (diabetes mellitus, type 2) Fatty liver GERD (gastroesophageal reflux disease) Gout H/O alcohol abuse Headaches due to 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 Hx of deep venous thrombosis Hx of traumatic brain injury Hyperlipidemia Hypertension Hypothyroidism Knee pain, right Migraine headache Mild dementia MRSA infection Obstructive sleep apnea Pain in joint of right foot Rathke's pouch cyst Recurrent UTI Rhinorrhea Right sided weakness Tinea pedis Urethral stricture Vitamin D deficiency Volvulus of cecum Surgical History Appendectomy (06/01/16) Colonoscopy - MAC 2010-5year f/u 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 electroconvulsive therapy Extraction of cataract facial lesion removal Repair of inguinal hernia (08/05/17) right inguinal hernia repair by Dr Arroyo on 08/05/17 Repair of umbilical hernia Social History Smoking/Tobacco Use Status: Never Smoking risk assessment performed?: Yes Alcohol Intake: former Drug use: Never Substance use type: does not use Household members: spouse Housing: house Pets and animals: Yes Pets and animals: dog(s) Do you feel safe at home: Yes Do you feel safe in your relationship?: Yes Exam Const General: cooperative, healthy appearing, comfortable and no acute distress Orientation: alert, awake, oriented to person, oriented to place and other (Unsure of exact date) [facility] Head: normal to inspection, normocephalic and atraumatic Face and sinus: normal facial exam Mouth: moist mucous membranes Throat: posterior oropharynx normal Eyes General: appearance normal, both eyes and all related structures Conjunctivae: conjunctivae normal Neck Neck: normal visual inspection, full ROM, trachea midline, supple and nontender Chest Chest: normal inspection of the chest, no crepitus and tenderness Other: Left lateral anterior chest wall and anterior shoulder discomfort to palpation. No crepitus, erythema, warmth, ecchymosis. Skin is intact Resp Effort & Inspection: normal respiratory effort and able to speak in complete sentences Auscultation: clear to auscultation bilaterally Cardio Rate: regular rate Rhythm: regular rhythm GI Palpation: soft, not firm, no guarding, no pulsatile masses and nontender Auscultation: normal bowel sounds Back/Spine/Pelvis Back: no CVA tenderness and No back tenderness Skin General skin exam: no rashes or lesions noted Neuro General: patient alert, patient awake, moves all extremities and no focal motor deficits Cognition: normal cognition Speech: speech normal Gait: normal gait Motor: muscle tone normal throughout, no movement abnormalities noted and no fasciculations Sensory Exam: no sensory deficits noted Extrem General: normal to inspection, full ROM, capillary refill normal, no pedal edema and no calf tenderness Psych Appearance: grossly normal Mental Status: mental status grossly normal Course Vital Signs Vital signs: Vital Signs Temperature 36.5 C 06/19/21 18:51 Pulse 98 H 06/19/21 18:51 Respiratory Rate 19 06/19/21 18:51 Blood Pressure 137/98 H 06/19/21 18:51 Pulse Oximetry 97 06/19/21 18:51 Temperature 36.5 C 06/19/21 18:51 Temperature Source Skin 06/19/21 18:51 Pulse 98 H 06/19/21 18:51 Respiratory Rate 19 06/19/21 18:51 Respiratory Effort Non-Labored 06/19/21 18:51 Blood Pressure 137/98 H 06/19/21 18:51 Pulse Oximetry 97 06/19/21 18:51 Oxygen Delivery Method Room Air 06/19/21 18:51 Oxygen Flow Rate 0 06/19/21 18:51 Pain Level 8 06/19/21 18:51
[2021-06-19 19:25] LABS: Abs Immature Grans 0.03 10^3/uL (0.0-0.06); Absolute Basophil Count 0.11 10^3/uL (0.0-0.2); Absolute Eosinophil Count 0.24 10^3/uL (0.0-0.7); Absolute Lymphocyte Count 1.34 10^3/uL (1.2-3.4); Absolute Monocyte Count 0.59 10^3/uL (0.1-0.8); Absolute Neutrophil Count 4.09 10^3/uL (1.2-6.7); Basophils % 1.7; Eosinophils % 3.8; HCT 41.3 % (40.0-50.0); HGB 14.1 g/dL (13.5-17.5); Immature Grans % 0.5; Lymphocytes % 20.9; MCH 29.2 pg (27.0-33.0); MCHC 34.1 % (32.0-36.0); MCV 85.5 fL (80-95); MPV 8.8 fL (8.0-11.0); Monocytes % 9.2; Neutrophils % 63.9; Nucleated RBC 0 %; Platelet Count 205 10^3/uL (130-400); RBC 4.83 10^6/uL (4.36-5.78); RDW 14.9 % (11.8-14.1); RDW-SD 46.7 fL
[2021-06-19] MEDS: nitroGLYcerin 0.4 MG TAB SL (19:25)
[2021-06-19] MEDS: Lidocaine 5% Patch 1 PATCH (19:45)
[2021-06-19 19:46] LABS: ALT 47 U/L (16-63); AST 29 U/L (15-37); Albumin 4.4 g/dL (3.4-5.0); Alkaline Phosphatase 81 U/L (46-116); Anion Gap 14.2 mmol/L (3-11); BUN 16 mg/dL (7-18); Bilirubin, Total 0.4 mg/dL (0.2-1.0); CO2 21.8 mmol/L (21.0-32.0); CREATININE 1.5 mg/dL (0.70-1.30); Calcium 8.8 mg/dL (8.5-10.1); Chloride 102 mmol/L (98-107); Estimated GFR 46.13 (mL/min/1.73m2); Glucose 195 mg/dL (74-106); Magnesium 2.5 mg/dL (1.8-2.4); Potassium 3.9 mmol/L (3.5-5.1); Sodium 138 mmol/L (136-145); Total Protein 7.9 g/dL (6.4-8.2); Troponin I < 50 ng/L (<or=60)
[2021-06-19] MEDS: traMADol 50 MG TAB PO (20:25)
[2021-06-19] MEDS: Methocarbamol 500 MG TAB PO (20:25)
--- NOTE | 2021-06-19 20:36 | DI.VRAD_ITS ---
PROCEDURE INFORMATION: Exam: XR Chest Exam date and time: 06/19/2021 7:11 PM Age: 70 years old Clinical indication: Chest pain TECHNIQUE: Imaging protocol: XR of the chest. Views: 2 views. COMPARISON: XR PORTABLE CHEST AP 06/07/2021 2:22 PM FINDINGS: Lungs: Clear lungs. Pleural spaces: No pneumothorax. No sizable pleural effusion. Heart/Mediastinum: CABG. No cardiomegaly. Bones/joints: Sternotomy. IMPRESSION: Clear lungs. Dictated and Authenticated by: Charan Finnegan MD. Ordering:DANIELA Tolliver MD
[2021-06-19 22:01] LABS: Troponin I < 50 ng/L (<or=60)
== END 2021-06-19 22:14 | disposition home or self-care (01) ==
PROVIDERS: Emergency Provider Physician Assistant; PCP Family Medicine
DX: R07.9 Chest pain, unspecified (principal); Z87.820 Personal history of traumatic brain injury
CPT/HCPCS: 36415; 80053; 93005; 99284; 71046; 83735; 84484; 85025; 93010

== ENCOUNTER 2021-06-23 00:39 | Outpatient (CLI) | payer MEDICARE, OTHER, SELFPAY ==
--- NOTE | 2021-06-23 07:30 | DI.MRI_ITS ---
Exam(s) MR LUMBAR SPINE WO EXAM: MR LUMBAR SPINE WO CLINICAL HISTORY: Low back pain after numerous falls,h/o comp fx t12,l1,? age,s32.000a. TECHNIQUE: Multiplanar multisequence MRI of the Lumbar spine was performed. COMPARISON: MR MR lumbar spine wo from 07/29/2018 CR XR LUMBAR SPINE COMPLETE from 04/01/2021 CR XR LUMBAR SPINE COMPLETE from 04/01/2021 FINDINGS: Bones: The last intervertebral disc space is designated the L5/S1 level for the numbering purpose of this examination. Stable appearance old T12 compression fracture. No significant retropulsion into the central canal. The remaining vertebral body heights are well maintained. Alignment is satisfacto ry. The marrow signal characteristics are unremarkable. Bone island left ilium. Cord: The conus tip ends at the T12 level. It is of normal size and signal intensity. T12-L1: No disc herniations or bulges are present. No central spinal canal or neural foraminal stenos is. L1-2: Mild disc bulging. Asymmetric osteophytes, eccentric toward the right causing [id number] neural foraminal narrowing. No central spinal canal stenosis or left neural foraminal stenosis. L2-3: Minimal disc bulging. Mild ligamentous hypertrophy.. No central spinal canal or neural forami nal stenosis. L3-4: Minimal disc bulging eccentric toward the right. Minimal ligamentous hypertrophy.. No central spinal canal or neural foraminal stenosis. L4-5: Small endplate osteophytes and mild concentric disc bulging. Superimposed small focal disc prot rusion, right-sided, which may cause nerve root impingement.. Mild facet joint degenerative changes c ombine with disc osteophytes to cause moderate right neural foraminal narrowing. No left neural maximino inal narrowing. No central spinal canal stenosis. L5-S1: Marked loss of disc height. Endplate osteophytes. Degenerative signal changes in the endplates . Mild facet degenerative changes, right greater left. This combines with the endplate osteophytes to cause mild right neural foraminal narrowing. No central spinal canal stenosis or left neural foramin al stenosis. Nerve root sheath cysts are seen at S1 and S2. Soft tissues: The visualized SI joints and sacrum are well maintained. The paraspinal soft tissues ar e unremarkable. Aorta normal diameter. Small right renal cyst. IMPRESSION: Right-sided disc protrusion L4-5 which may mildly impinge on nerve roots. Degenerative disc changes and facet degenerative changes combine to produce right-sided neural forami nal narrowing at multiple levels. No significant central canal stenosis. Old T12 compression fracture. No acute fractures. DATA REPOSITORY:
== END 2021-06-23 00:59 ==
PROVIDERS: PCP Family Medicine; Visit Provider Preventive Medicine Occupational Medicine
DX: M51.26 Other intervertebral disc displacement, lumbar region (principal); M51.37 Other intervertebral disc degeneration, lumbosacral region; S22.080D Wedge compression fracture of T11-T12 vertebra, subsequent encounter for fracture with routine healing
CPT/HCPCS: 72148

== ENCOUNTER 2021-06-30 01:00 | Outpatient (CLI) | payer MEDICARE, OTHER, SELFPAY ==
--- NOTE | 2021-06-30 15:00 | ETT_ITS ---
APPROVED REPORT Exam: Exercise Treadmill Patient Location: Out-Patient Room/Bed: Stress Nurse: Siomara De Leon RN Ordering Provider:ROCK WYNN, Contact Number: [phone] BMI: 27.25 Baseline Rhythm: Sinus Rhythm Comment: PACs Indications: Chest pain Medical History Medical History: Hypertension, hyperlipidemia, diabetes, DONALDO, CVD, mild cognitive impairment, h/o TBI , gerd, L arm pain Cardiac Medications: Rosuvastatin, metoprolol succinate, nitroglycerin, lisinopril, amdlodipine, isos orbide mononitrate, victoza, metformin, topiramate, pantoprazole Allergies: Trimethoprim, oxycodone, penicillin, amoxicillin, sulfa Cardiac Risk Factors: Hypertension, hyperlipidemia, diabetes, CVD Previous Cardiac Procedures: 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 Rest Stress HR Resting HR Supine: 95 bpm Max Heart Rate (APMHR): 149 bpm Resting HR Standin bpm Target HR (85% APMHR): 126 bpm Max HR Achieved: 133 bpm % of APMHR: 89 Recovery HR: 99 bpm HR response to stress: Normal HR response to stress Comment: Metoprolol succinate not held prior to testing. BP Resting BP Supine: 158/80 mmHg Resting BP Standin/80 mmHg Max BP: 184/80 mmHg Recovery BP: 158/80 mmHg BP response to stress: Normal blood pressure response to stress. ECG Resting ECG: Sinus Rhythm Ectopy: Frequent PACs Stress ECG: Sinus Tachycardia ST Change: No significant ST segment changes noted Arrhythmia: Occasional PAC, rare PVC Recovery ECG: Sinus Rhythm Recovery ST Change: No significant ST segment changes noted Recovery ST Deviation: 1 mm Recovery Arrhythmia: Frequent PACs Clinical Reason for Termination: Fatigue, Dyspnea Stress Symptoms: General fatigue, dyspnea, lightheaded Exercise duration: 3 min55 sec Highest Stage Reached: Stage 2: 2.5 mph at 12% grade. Exercise capacity: 5.51 METs Torres Treadmill Score: 3.4 Rate Pressure Product: 13358 Stress ECG Conclusion 1. Resting electrocardiogram showed diffuse nondiagnostic ST-T abnormalities 2. Patient exercised on the Abad protocol and completed a workload of 5.51 METS 3. Normal heart rate and blood pressure response to exercise. Patient achieved 89% of predicted hear t rate for age 4. Electrocardiographically the test was negative for myocardial ischemia 5. Atrial and ventricular ectopics were noted Torres Treadmill Score is 3.4 which is Moderate risk. Stress Test Summary STAGE Time (mins) Speed (mph) Grade (%) HR BP SYMPTOMS METS Supine 95 158/80 Standing 105 152/80 SpO2 98% 1 3 1.7 10 122 154/82 SpO2 98% 4.6 2 6 2.5 12 130 Mild TAN, SpO2 98% 7 1 min recovery 130 180/72 Mild SOB, mild lightheaded, TAN resolved, SpO2 98% 3 min recovery 106 184/80 Mild SOB, lightheaded resolved, SpO2 98% 6 min recovery 99 158/80 SOB resolved, SpO2 98%
== END 2021-06-30 01:20 ==
PROVIDERS: PCP Family Medicine; Visit Provider Physician Assistant
DX: R07.9 Chest pain, unspecified (principal); I10 Essential (primary) hypertension; E78.5 Hyperlipidemia, unspecified; E11.9 Type 2 diabetes mellitus without complications; I25.10 Atherosclerotic heart disease of native coronary artery without angina pectoris; I49.1 Atrial premature depolarization; I49.3 Ventricular premature depolarization
CPT/HCPCS: 93016; 93018; 93017

== ENCOUNTER → 2021-08-05 12:51 | Outpatient (BNVA) | payer MEDICARE, OTHER, SELFPAY | PROVIDERS: PCP Family Medicine; Visit Provider Internal Medicine Cardiovascular Disease | DX: I25.119 Atherosclerotic heart disease of native coronary artery with unspecified angina pectoris (principal) | CPT/HCPCS: 99214 ==

== ENCOUNTER → 2021-08-18 14:44 | Outpatient (BNVA) | payer MEDICARE, OTHER, SELFPAY | PROVIDERS: PCP Family Medicine; Visit Provider Urology | DX: R39.12 Poor urinary stream (principal); N39.0 Urinary tract infection, site not specified | CPT/HCPCS: 81003; 99213 ==

== ENCOUNTER 2021-09-04 10:27 | Outpatient (CLI) | payer MEDICARE, OTHER, SELFPAY ==
--- NOTE | 2021-09-04 10:30 | DI.RAD_ITS ---
Exam(s) XR PAIN CLINIC LUMBAR SP 2V EXAM: XR PAIN CLINIC LUMBAR SP 2V CLINICAL HISTORY: dx: Lumbar Radiculopathy TECHNIQUE: 2D and realtime digital imaging was performed. Radiologist not present. CONTRAST MATERIAL: None. COMPARISON: No exams were available for comparison FINDINGS: Fluoroscopy was provided for pain management therapy. Please refer to procedure report or details. Cumulative dose: Ka,r=30.1 mGy IMPRESSION: RADIATION DOSE DELIVERED:
[2021-09-04 10:44] VITALS: BP 118/71; PULSE 88; RESP 18; TEMP 36.1; O2SAT 97
[2021-09-04 11:22] VITALS: BP 137/79; PULSE 89; RESP 19; O2SAT 98
[2021-09-04] MEDS: Bupivacaine 0.5% Pres-Free 10 ML VIAL IJ (11:23)
[2021-09-04] MEDS: Omnipaque 240 MG/ML 50 ML BTL IJ (11:23)
--- NOTE | 2021-09-04 12:46 | PDOC.PAIN ---
Pain Clinic Procedure Note Procedure Note Procedure Note: Lumbar/Sacral Medial Branch Blocks Fredo Osman has been referred to the [facility] for lumbar/sacral medial branch blocks. COMMENTS: He has a T12 compression fracture. I evaluated him in the office on 06/11/21. Pre-procedure pain VAS was 8/10. 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 There were no medical, pharmacologic, radiographic or other structural contraindications to attempting fluoroscopically guided local anesthetic lumbar/sacral medial branch blocks. Risks and expected side effects as well as potential benefit of the procedure were reviewed and voiced concerns addressed. The printed consent form was signed and witnessed. Standard time-out procedure was performed. Patient was placed in the prone position on the fluoroscopy table and automated blood pressure cuff and pulse oximeter applied. The skin entry points for approaching the anatomic target points of the segmental medial branches of bilateral T11, T12, and L1 were identified with anfluoroscopy and marked. Following thorough Chlorhexadine preparation of the skin and draping and 1% lidocaine infiltration of the skin entry points and subcutaneous tissues, a 22 gauge spinal needle was placed under fluoroscopic guidance down on to the target point for each respective segmental medial branch.Position was confirmed in A/P, oblique and lateral views with 0.25ml of omnipaque 240. Coult be this method .5ml 0.5% Bupivacaine was injected or 1% Lidocaine. Vital signs were stable throughout the procedure and were as recorded in the docflowsheet by the nursing staff. Follow up plans and appointments were discussed and was instructed to keep careful note of how the usual pain was modified by these injections. Specifically was asked to keep a pain diary for the next 24 hours using a numeric pain scale of 0-10 and report these results at the follow-up visit. Post procedure instruction was given as documented in the nursing documentation and having met discharge criteria. Patient was discharged from the [facility]. Based on the medial branches blocked today, if the patient has adequate relief and we are able to proceed to radiofrequency ablation, the treatment should result in the denervation of the bilateral T11-T12 and T12-L1 FACET JOINTS. We would expect to denervate a total of 4 facets during the radiofrequency ablation. COMMENTS: His post-procedure pain VAS is 0/10. Sergio Boucher DO, MPH [facility] CC: Alisa Ramirez
== END 2021-09-04 10:28 | disposition home or self-care (01) ==
LOC: PC 10:27
PROVIDERS: PCP Family Medicine; Visit Provider Preventive Medicine Occupational Medicine
DX: M47.815 Spondylosis without myelopathy or radiculopathy, thoracolumbar region (principal)
CPT/HCPCS: 64493; 64494; 72100; Q9967

== ENCOUNTER 2021-09-14 13:29 | Emergency (ER) | payer MEDICARE, OTHER, SELFPAY ==
[2021-09-14 13:35] VITALS: BP 123/71; PULSE 97; RESP 18; TEMP 36.4; O2SAT 100
--- NOTE | 2021-09-14 13:45 | DI.RAD_ITS ---
Exam(s) XR TIB/FIB RT EXAM: XR TIB/FIB RT CLINICAL HISTORY: hit R anterior leg on metal part of car, r/o fx. TECHNIQUE: 2D digital imaging was performed. Two views. COMPARISON: No exams were available for comparison FINDINGS: BONES: No acute fracture is present. No bony destructive lesion is seen. Visualized portion of knee a nd ankle joints are unremarkable. SOFT TISSUE: Vascular clips posteromedial knee. IMPRESSION: Unremarkable radiographs of the right tibia and fibula. DATA REPOSITORY: RADIATION DOSE DELIVERED:
--- NOTE | 2021-09-14 13:45 | DI.RAD_ITS ---
Exam(s) XR KNEE RT 3V AP,LAT,JUNI EXAM: XR KNEE RT 3V AP,LAT,JUNI CLINICAL HISTORY: hit R knee on metal part of car, r/o fracture. TECHNIQUE: 2D digital imaging was performed. Three views COMPARISON: No exams were available for comparison FINDINGS: BONES: No acute fracture is present. No bony destructive lesion is seen. Enthesophyte quadriceps inse rtion on the patella. JOINTS: The knee is normally aligned. No joint effusion is seen. Mild spurring at the patellofemoral joint. SOFT TISSUE: Vascular clip medially in the soft tissues. IMPRESSION: No acute abnormality. DATA REPOSITORY: RADIATION DOSE DELIVERED:
--- NOTE | 2021-09-14 13:53 | W.ED.GENAD ---
Discharge Plan Disposition Patient Disposition: HOME Condition: Stable Discharge Details Clinical Impression: Strain of right calf muscle Primary Care Provider: Alisa Ramirez ED Provider: Apple Enriquez Home Meds and New Rx's Prescriptions: New methocarbamol 500 mg tablet 500 mg PO Q6H PRN (Reason: muscle spasm) Qty: 14 0RF Continued triamcinolone acetonide 0.1 % Ointment 1 applic TOPICAL BID 0RF finasteride 5 mg tablet 5 mg PO DAILY Qty: 90 4RF phenazopyridine 200 mg Tablet 200 mg PO TID PRN0RF Rx Instructions: For 2 days carboxymethylcellulose sodium [Refresh Tears] 0.5 % Drops 1 drp OPHTHALMIC (EYE) QID PRN0RF acetylcysteine [NAC] 600 mg capsule 600 mg PO BID 0RF cod liver oil Capsule 1 cap PO DAILY 0RF bisacodyl [Dulcolax (bisacodyl)] 5 mg tablet,delayed release (DR/EC) 5 mg PO DAILY PRN0RF metoprolol succinate 50 mg tablet extended release 24 hr 50 mg PO DAILY 0RF citalopram 20 mg tablet 10 mg PO DAILY 0RF diclofenac sodium [Voltaren] 1 % gel 2 g topical QID 0RF Rx Instructions: apply to single elbow, wrist or hand; for hand includes palm/fingers/back of hand ranolazine [Ranexa] 500 mg tablet extended release 12 hr 500 mg PO BID 0RF methylprednisolone [Medrol (Thanh)] 4 mg tablets,dose pack 4 mg PO DAILY Qty: 21 0RF polyethylene glycol 3350 [Miralax] 17 GM powder in packet 17 g PO DAILY PRNQty: 255 0RF nitroglycerin [Nitrostat] 0.4 MG tablet, sublingual 0.4 mg Sublingual as directed 0RF Levemir FlexTouch U-100 Insuln 100 UNIT/1 ML insulin pen 75 units subcut BID 0RF Rx Instructions: If blood sugar is frequently over 140 may go back to 80 units BID riboflavin (vitamin B2) [Vitamin B-2] 100 mg tablet 400 mg PO BID 0RF levothyroxine 50 MCG tablet 50 mcg PO DAILY@0730 0RF allopurinol 300 MG tablet 300 mg PO DAILY 0RF quetiapine [Seroquel] 300 MG tablet 300 mg PO HS 0RF rosuvastatin [Crestor] 20 MG tablet 20 mg PO HS 0RF metformin [Glucophage] 1,000 mg Tablet 1,000 mg PO BID 0RF lisinopril 20 mg Tablet 30 mg PO DAILY 0RF isosorbide mononitrate 60 mg tablet extended release 24 hr 60 mg PO DAILY 0RF Rx Instructions: TAKE ALONG WITH 30MG TAB FOR TOTAL DAILY DOSE OF 90MG lidocaine [Lidoderm] 1 PATCH patch 1 patch Topical Q24H Qty: 4 0RF methocarbamol 500 mg tablet 500 mg PO Q6H PRN (Reason: muscle spasm) Qty: 14 0RF docusate sodium [Colace] 100 mg Capsule 100 mg PO DAILY PRN0RF topiramate 25 mg tablet 25 mg PO HS 0RF Label Comments: TAKE 1 TABLET BY MOUTH AT BEDTIME topiramate 50 mg tablet 50 mg PO HS 0RF Label Comments: TAKE 1 TABLET BY MOUTH ONCE DAILY tramadol 50 mg tablet 50 mg PO Q6H PRN PRN (Reason: pain) 0RF amlodipine 2.5 mg tablet 2.5 mg PO DAILY 0RF gabapentin 300 mg capsule 300 mg PO BID 0RF Rx Instructions: FOR DIABETIC FOOT NEUROPATHY cholecalciferol (vitamin D3) [Vitamin D3] 1,000 unit Tablet 1,000 unit PO DAILY 0RF pantoprazole [Protonix] 40 mg tablet,delayed release (DR/EC) 40 mg PO DAILY Qty: 30 0RF Victoza 2-Thanh 0.6 mg/0.1 mL (18 mg/3 mL) pen injector 1.8 mg SUBCUT DAILY 0RF magnesium 200 mg Tablet 400 mg PO DAILY 0RF Discharge Instructions Instructions: Muscle Strain (ED) Additional Instructions: Your x-rays today show no evidence of acute injury. Your symptoms may be due to a calf muscle strain. Alternate ice and heat to the affected area(s) several times daily for 20 minutes at a time. Keep the tall walking boot in place until follow-up with your primary care doctor or orthopedics. Use your crutches to help with limiting weightbearing on your right leg. A prescription for a muscle relaxer has been sent electronically to your pharmacy to take as needed and directed for your right leg pain. You can continue to take your tramadol that you have at home as needed and directed for pain. Call your primary care doctor tomorrow morning to schedule a follow-up appointment for reevaluation this week. If your symptoms do not improve or worsen, you may need to follow-up with orthopedics to rule out a potential calf muscle tear. An order for an outpatient ultrasound has been placed and you will be notified by the radiology department regarding scheduling this test. You can call the [facility] radiology department at [phone] to confirm scheduling this test. Referrals: Tres Mai MD [ [facility] STAFF PHYSICIAN] - Discharge Data Discharge Physician: Apple Enriquez Medical Decision Making 71-year-old male presents with right leg pain after some form of not getting into a car striking his right knee and anterior leg on the metal base of the car and suddenly plantar flexing his right foot causing pain in the right calf. He states majority of pain is in his right calf but does also admits to right anterior knee and lower leg pain. He appears comfortable and nontoxic. He has tenderness palpation to his right calf and pain in the right calf is reproduced mostly with plantar flexion. There is a superficial abrasion to the right knee but no obvious deformity. Limited ability to perform Grimm test due to right calf pain. The right Achilles tendon otherwise appears taut and he has normal plantar and dorsiflexion but there is pain in the calf mostly with plantar flexion. There is no obvious lower extremity deformity. He is otherwise neurovascular intact. Suspect most likely right calf strain. We will give a dose of his tramadol, Valium and Motrin. As he states he did strike his knee and right anterior leg on the metal base of the car, will also obtain xrays. X-rays reviewed and negative for acute findings. Patient reassessed and he denies any significant relief in his pain. There is no evidence of overlying cellulitis and no signs consistent with compartment syndrome. He is neurovascularly intact. Suspect most likely calf muscle strain. An order for an outpatient leg ultrasound has been placed to rule out potential hematoma but do not suspect DVT. Case discussed with orthopedics who agreed with plan for tall walking boot. Patient has crutches at home. A cushion was placed within the tall walking boot as a heel lift to offload the calf. He was given 2 tabs of methocarbamol to go and a prescription for methocarbamol was sent electronically to his pharmacy. He was advised to follow-up with his primary care doctor this week for reevaluation and for referral to orthopedics if the symptoms do not improve or worsen. Usual and customary return precautions given prior to discharge. Medical Records Medical records reviewed: Yes I reviewed the patient's medical records. Imaging Data Radiologic Study: Radiologist's impression: XR Right Knee Exam date and time: 09/14/2021 2:10 PM Age: 71 years old Clinical indication: Other: Hit R knee on metal part of car, R/O FX sharp calf pain, rule out fluid collection, TECHNIQUE: Imaging protocol: XR Right knee. Views: 3 views. COMPARISON: CT LOWER EXTREMITY RT WO 09/18/2020 1:39 PM FINDINGS: Tubes, catheters and devices: Medial surgical clip noted at the proximal calf level soft tissues. Bones/joints: Normal. Soft tissues: Normal. IMPRESSION: No evidence for acute posttraumatic abnormality. XR Right Tibia and Fibula Exam date and time: 09/14/2021 2:09 PM Age: 71 years old Clinical indication: Other: Hit R anterior leg on metal part of car, R/O FX sharp calf pain, rule out fluid collection TECHNIQUE: Imaging protocol: XR Right tibia and fibula. Views: 2 views. COMPARISON: CT LOWER EXTREMITY RT WO 09/18/2020 1:39 PM FINDINGS: Bones/joints: Bony alignment is anatomic. No evidence for fracture or dislocation. Soft tissues: Surgical clip noted in the medial soft tissues of the proximal calf. IMPRESSION: No evidence for acute posttraumatic abnormality. HPI General Mode of arrival: ambulatory. Date/Time Provider Initiated Documentation: 09/14/21 13:31. Limitations to Documentation: no limitations. Information obtained by: patient. HPI Narrative: Patient is a 71-year-old male with a history of coronary artery disease, hyperlipidemia, diabetes, hypertension, hypothyroidism, migraine, dementia who presents for right leg pain after stepping into his son's truck yesterday and falling forward. Patient states he was stepping into the truck when he slipped and fell forward striking his anterior knee and right anterior lower leg on the metal base of the truck. Patient states he also feels like he strained his right calf muscle when he fell forward. He states he took Tylenol today without relief. He denies any other injuries. Related Data Home Medications Medication Instructions Recorded Confirmed allopurinol 300 mg tablet 300 mg PO DAILY 01/24/13 09/14/21 levothyroxine 50 mcg tablet 50 mcg PO DAILY@0730 01/24/13 09/14/21 quetiapine 300 mg tablet (Seroquel) 300 mg PO HS 01/24/13 09/04/21 rosuvastatin 20 mg tablet (Crestor) 20 mg PO HS 03/22/17 09/14/21 nitroglycerin 0.4 mg sublingual 0.4 mg SUBLINGUAL as directed 04/08/17 09/04/21 tablet (Nitrostat) polyethylene glycol 3350 17 gram 17 g PO DAILY PRN #255 gm 04/08/17 09/04/21 oral powder packet (Miralax) insulin detemir U-100 100 unit/mL 75 units SUBCUT BID 08/04/17 09/14/21 (3 mL) subcutaneous pen (Levemir FlexTouch U-100 Insulin) cholecalciferol (vitamin D3) 25 1,000 unit PO DAILY 11/11/18 09/04/21 mcg (1,000 unit) tablet (Vitamin D3) metformin 1,000 mg tablet 1,000 mg PO BID 03/08/19 09/14/21 (Glucophage) riboflavin (vitamin B2) 100 mg 400 mg PO BID tab 03/28/19 09/04/21 tablet (Vitamin B-2) bisacodyl 5 mg tablet,delayed 5 mg PO DAILY PRN tab 04/17/19 09/04/21 release (Dulcolax (bisacodyl)) cod liver oil 1 cap PO DAILY 04/17/19 09/04/21 pantoprazole 40 mg tablet,delayed 40 mg PO DAILY #30 tab 04/25/19 09/04/21 release (Protonix) metoprolol succinate 50 mg 50 mg PO DAILY 05/10/19 09/14/21 tablet,extended release 24 hr acetylcysteine 600 mg capsule (NAC) 600 mg PO BID cap 05/16/19 09/04/21 citalopram 20 mg tablet 10 mg PO DAILY tab 05/16/19 09/04/21 lisinopril 20 mg tablet 30 mg PO DAILY 05/24/19 09/14/21 diclofenac sodium 1 % topical gel 2 g TOPICAL QID 04/30/20 09/04/21 (Voltaren) ranolazine 500 mg tablet,extended 500 mg PO BID 04/30/20 09/14/21 release,12 hr (Ranexa) liraglutide 0.6 mg/0.1 mL (18 mg/3 1.8 mg SUBCUT DAILY 06/19/20 09/14/21 mL) subcutaneous pen injector ([employer] 2-Thanh) isosorbide mononitrate 60 mg 60 mg PO DAILY 09/18/20 09/14/21 tablet,extended release 24 hr lidocaine 5 % topical patch 1 patch TOPICAL Q24H #4 ea 10/14/20 09/04/21 (Lidoderm) methocarbamol 500 mg tablet 500 mg PO Q6H PRN #14 tab 11/07/20 09/04/21 triamcinolone acetonide 0.1 % 1 applic TOPICAL BID 11/13/20 08/18/21 topical ointment docusate sodium 100 mg capsule 100 mg PO DAILY PRN 01/07/21 09/04/21 (Colace) topiramate 25 mg tablet 25 mg PO HS 01/09/21 09/14/21 topiramate 50 mg tablet 50 mg PO HS 01/09/21 09/14/21 gabapentin 300 mg capsule 300 mg PO BID cap 02/04/21 09/04/21 carboxymethylcellulose sodium 0.5 1 drp OPHTHALMIC (EYE) QID PRN 03/27/21 09/04/21 % eye drops (Refresh Tears) phenazopyridine 200 mg tablet 200 mg PO TID PRN 03/27/21 09/04/21 magnesium 200 mg tablet 400 mg PO DAILY 06/07/21 09/04/21 tramadol 50 mg tablet 50 mg PO Q6H PRN PRN 06/19/21 09/04/21 methylprednisolone 4 mg tablets in 4 mg PO DAILY #21 dose pk 08/13/21 08/18/21 a dose pack (Medrol (Thanh)) amlodipine 2.5 mg tablet 2.5 mg PO DAILY tab 08/18/21 09/14/21 finasteride 5 mg tablet 5 mg PO DAILY #90 tab 08/18/21 09/14/21 methocarbamol 500 mg tablet 500 mg PO Q6H PRN #14 tab 09/14/21 Previous Rx's Medication Instructions Recorded pantoprazole 40 mg tablet,delayed 40 mg PO DAILY #30 tab 04/25/19 release (Protonix) lidocaine 5 % topical patch 1 patch TOPICAL Q24H #4 ea 10/14/20 (Lidoderm) methocarbamol 500 mg tablet 500 mg PO Q6H PRN #14 tab 11/07/20 methylprednisolone 4 mg tablets in 4 mg PO DAILY #21 dose pk 08/13/21 a dose pack (Medrol (Thanh)) finasteride 5 mg tablet 5 mg PO DAILY #90 tab 08/18/21 methocarbamol 500 mg tablet 500 mg PO Q6H PRN #14 tab 09/14/21 Allergies Allergy/AdvReac Type Severity Reaction Status Date / Time amoxicillin Allergy Severe breathing Unverified 09/14/21 13:46 difficuty and vomiting Penicillins Allergy Intermediate Skin Rash Unverified 09/14/21 13:46 sulfamethoxazole Allergy Intermediate Skin Rash Unverified 09/14/21 13:46 [From Bactrim] trimethoprim [From Bactrim] Allergy Intermediate Skin Rash Unverified 09/14/21 13:46 oxycodone HCl [From Percocet] AdvReac Severe Contraindic Unverified 09/14/21 13:46 ated oxycodone terephthalate AdvReac Severe Contraindic Unverified 09/14/21 13:46 [From Percodan] ated General Stated Complaint: Orthopedic MADELIN: 3 Review of Systems All systems reviewed & are unremarkable except as noted in HPI and below Constitutional Constitutional: Reports as per HPI, Denies chills and Denies fever(s) Eyes Eyes: Denies blurry vision ENT Ears, Nose, Mouth, and Throat: Denies dizziness, Denies sore throat and Denies throat swelling Cardiovascular Cardiovascular: Denies chest pain and Denies dyspnea Respiratory Respiratory: Denies cough and Denies dyspnea Gastrointestinal Gastrointestinal: Denies abdominal pain, Denies diarrhea and Denies vomiting Genitourinary Genitourinary: Denies hematuria and Denies dysuria Musculoskeletal Musculoskeletal: Denies back pain, Denies numbness and Reports other (Right leg pain) Integumentary/Breasts Skin/Breast: Denies lesions and Denies rash Neurologic Neurologic: Denies dizziness, Denies localized weakness and Denies numbness Allergic/Immunologic Allergic/Immunologic: Denies throat swelling PFSH All Active Problems (Updated 09/14/21 @ 15:29 by Apple Enriquez DO) Strain of right calf muscle (Acute) Lumbar radiculopathy (Acute) Compression fracture of lumbar vertebra (Acute) Viral URI with cough (Acute) Chest pain (Acute) Unstable angina (Acute) UTI (urinary tract infection) (Acute) UTI (urinary tract infection) (Acute) Arthritis of right hip (Acute) Contusion of right hip (Acute) Left rib fracture (Acute) Rib pain on left side (Acute) Chest wall muscle strain (Acute) History of rib fracture (Acute) Head trauma (Acute) Discharge planning issues (Acute) DVT prophylaxis (Acute) Chronic subdural hematoma (Chronic) Chest pain (Acute) Pituitary abnormality (Acute) Neck pain (Acute) Hand weakness (Acute) Cubital tunnel syndrome on right (Acute) Lower urinary tract symptoms (Chronic) Lumbar radiculitis (Acute) Lumbosacral spondylosis without myelopathy (Acute) Chronic rhinitis (Chronic) Atypical chest pain (Acute) Musculoskeletal; Negative NPI 04/29/2018 Urethral stricture (Acute 08/20/15) Sensory hearing loss, bilateral (Chronic 04/09/14) Sensorineural hearing loss, asymmetrical (Chronic 05/12/13) Postnasal drip (Chronic 05/13/15) Mild cognitive impairment (Chronic 01/31/18) Hypertrophy of nasal turbinates (Chronic 08/05/15) 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) Deviated nasal septum (Chronic 08/05/15) Thoracic spondylosis without myelopathy (Chronic) Coronary artery disease (Chronic) Hyperlipidemia (Chronic) Diabetes mellitus type 2 in obese (Chronic) Medical History Anemia, iron deficiency Chronic low back pain Colon polyps Constipation, chronic Depression Diastasis recti DM type 2 (diabetes mellitus, type 2) Fatty liver GERD (gastroesophageal reflux disease) Gout H/O alcohol abuse Headaches due to 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 Hx of deep venous thrombosis Hx of traumatic brain injury Hyperlipidemia Hypertension Hypothyroidism Knee pain, right Migraine headache Mild dementia MRSA infection Obstructive sleep apnea Pain in joint of right foot Rathke's pouch cyst Recurrent UTI Rhinorrhea Right sided weakness Tinea pedis Urethral stricture Vitamin D deficiency Volvulus of cecum Surgical History Appendectomy (06/01/16) Colonoscopy - MAC 2009-5year f/u 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 electroconvulsive therapy Extraction of cataract facial lesion removal Repair of inguinal hernia (08/05/17) right inguinal hernia repair by Dr Arroyo on 08/05/17 Repair of umbilical hernia Social History Smoking/Tobacco Use Status: Never Smoking risk assessment performed?: Yes Alcohol Intake: former Drug use: Never Substance use type: does not use Household members: spouse Housing: house Pets and animals: Yes Pets and animals: dog(s) Do you feel safe at home: Yes Do you feel safe in your relationship?: Yes Exam Const General: cooperative and no acute distress Orientation: alert, awake and oriented x3 HENMT Head: normal to inspection Mouth: oral mucosae normal Eyes General: appearance normal, both eyes and all related structures Neck Neck: normal visual inspection Resp Effort & Inspection: normal respiratory effort and able to speak in complete sentences Cardio Rate: regular rate Skin General skin exam: no rashes or lesions noted Neuro General: patient alert, patient awake and patient oriented x3 Motor: muscle tone normal throughout Extrem Knee images: 1. 2 x 2 centimeter superficial abrasion to the right anterior knee. There is mild surrounding tenderness but no deformity, edema, ecchymosis. Ankle/foot/toe images: 1. There is a mild to moderate area of edema and tenderness noted to the right posterior calf. There is no obvious fluctuance, induration, erythema or ecchymosis. Other: Pain in right calf reproduced with plantar and dorsiflexion. The right Achilles tendon appears taut without bogginess, tenderness, edema, erythema or ecchymosis. Right DP/PT pulses intact. There is no tenderness to palpation to the right ankle Psych Appearance: grossly normal Affect: normal affect Course Vital Signs Vital signs: Vital Signs Temperature 97.5 F L 09/14/21 13:35 Pulse 97 H 09/14/21 13:35 Respiratory Rate 18 09/14/21 13:35 Blood Pressure 123/71 09/14/21 13:35 Pulse Oximetry 100 09/14/21 13:35 Temperature 97.5 F L 09/14/21 13:35 Temperature Source Skin 09/14/21 13:35 Pulse 97 H 09/14/21 13:35 Respiratory Rate 18 09/14/21 13:35 Respiratory Effort 09/14/21 13:43 Blood Pressure 123/71 09/14/21 13:35 Blood Pressure Position Sitting 09/14/21 13:35 Pulse Oximetry 100 09/14/21 13:35 Oxygen Delivery Method Room Air 09/14/21 13:35 Oxygen Flow Rate 0 09/14/21 13:35 Pain Level 10 09/14/21 13:44 Comment 09/14/21 13:35
[2021-09-14] MEDS: traMADol 50 MG TAB PO (14:25)
[2021-09-14] MEDS: diazePAM 5 MG TAB PO (14:25)
[2021-09-14] MEDS: Ibuprofen 600 MG TAB PO (14:26)
--- NOTE | 2021-09-14 14:53 | DI.VRAD_ITS ---
PROCEDURE INFORMATION: Exam: XR Right Tibia and Fibula Exam date and time: 09/14/2021 2:09 PM Age: 71 years old Clinical indication: Other: Hit R anterior leg on metal part of car, R/O FX sharp calf pain, rule out fluid collection TECHNIQUE: Imaging protocol: XR Right tibia and fibula. Views: 2 views. COMPARISON: CT LOWER EXTREMITY RT WO 09/18/2020 1:39 PM FINDINGS: Bones/joints: Bony alignment is anatomic. No evidence for fracture or dislocation. Soft tissues: Surgical clip noted in the medial soft tissues of the proximal calf. IMPRESSION: No evidence for acute posttraumatic abnormality. Dictated and Authenticated by: Jeri Bangura MD. Ordering:RU Chiu MD
--- NOTE | 2021-09-14 14:55 | DI.VRAD_ITS ---
PROCEDURE INFORMATION: Exam: XR Right Knee Exam date and time: 09/14/2021 2:10 PM Age: 71 years old Clinical indication: Other: Hit R knee on metal part of car, R/O FX sharp calf pain, rule out fluid collection, TECHNIQUE: Imaging protocol: XR Right knee. Views: 3 views. COMPARISON: CT LOWER EXTREMITY RT WO 09/18/2020 1:39 PM FINDINGS: Tubes, catheters and devices: Medial surgical clip noted at the proximal calf level soft tissues. Bones/joints: Normal. Soft tissues: Normal. IMPRESSION: No evidence for acute posttraumatic abnormality. Dictated and Authenticated by: Jeri Bangura MD. Ordering:RU Chiu MD
[2021-09-14 15:47] VITALS: BP 132/75; PULSE 94; RESP 17; TEMP 36.3; O2SAT 96
[2021-09-14] MEDS: Methocarbamol 500 MG TAB 1000 MG PO (16:11)
[2021-09-14 16:16] VITALS: BP 132/75; PULSE 94; RESP 17; TEMP 36.3; O2SAT 96
--- NOTE | 2021-09-17 11:55 | NUR.NOTE ---
Nursing Note: Accessed patient chart to obtain provider note to fax to [facility]. Zora Gupta
== END 2021-09-14 16:16 | disposition home or self-care (01) ==
PROVIDERS: Emergency Provider Physician Assistant; PCP Family Medicine
DX: S86.811A Strain of other muscle(s) and tendon(s) at lower leg level, right leg, initial encounter (principal); M25.561 Pain in right knee; X50.1XXA Overexertion from prolonged static or awkward postures, initial encounter
CPT/HCPCS: 29515; 73562; 99284; 73590; 99283

== ENCOUNTER 2021-09-15 10:27 | Emergency (ER) | payer MEDICARE, OTHER, SELFPAY ==
[2021-09-15 10:32] VITALS: BP 131/67; PULSE 94; RESP 18; TEMP 36.5; O2SAT 97
--- NOTE | 2021-09-16 09:57 | ED.GENADUL_ITS ---
Discharge Plan Disposition Patient Disposition: HOME Condition: Improving Discharge Details Clinical Impression: Pain in right lower leg Primary Care Provider: Alisa Ramirez ED Provider: Sammi Quiñones Home Meds and New Rx's Prescriptions: Continued triamcinolone acetonide 0.1 % Ointment 1 applic TOPICAL BID 0RF finasteride 5 mg tablet 5 mg PO DAILY Qty: 90 4RF phenazopyridine 200 mg Tablet 200 mg PO TID PRN0RF Rx Instructions: For 2 days carboxymethylcellulose sodium [Refresh Tears] 0.5 % Drops 1 - 2 drp OPHTHALMIC (EYE) QID PRN0RF acetylcysteine [NAC] 600 mg capsule 600 mg PO BID 0RF cod liver oil Capsule 1 cap PO DAILY 0RF bisacodyl [Dulcolax (bisacodyl)] 5 mg tablet,delayed release (DR/EC) 5 mg PO DAILY PRN0RF metoprolol succinate 50 mg tablet extended release 24 hr 50 mg PO DAILY 0RF citalopram 20 mg tablet 10 mg PO DAILY 0RF diclofenac sodium [Voltaren] 1 % gel 1 applic topical DIRECTED 0RF Rx Instructions: apply to single elbow, wrist or hand; for hand includes palm/fingers/back of hand ranolazine [Ranexa] 500 mg tablet extended release 12 hr 500 mg PO BID 0RF methylprednisolone [Medrol (Thanh)] 4 mg tablets,dose pack 4 mg PO DAILY Qty: 21 0RF polyethylene glycol 3350 [Miralax] 17 GM powder in packet 17 g PO DAILY PRNQty: 255 0RF nitroglycerin [Nitrostat] 0.4 MG tablet, sublingual 0.4 mg Sublingual as directed 0RF Levemir FlexTouch U-100 Insuln 100 UNIT/1 ML insulin pen 75 units subcut BID 0RF Rx Instructions: If blood sugar is frequently over 140 may go back to 80 units BID riboflavin (vitamin B2) [Vitamin B-2] 100 mg tablet 400 mg PO BID 0RF levothyroxine 50 MCG tablet 50 mcg PO DAILY@0730 0RF allopurinol 300 MG tablet 300 mg PO DAILY 0RF quetiapine [Seroquel] 300 MG tablet 300 mg PO HS 0RF rosuvastatin [Crestor] 20 MG tablet 20 mg PO HS 0RF metformin [Glucophage] 1,000 mg Tablet 1,000 mg PO BID 0RF lisinopril 20 mg Tablet 30 mg PO DAILY 0RF isosorbide mononitrate 60 mg tablet extended release 24 hr 60 mg PO DAILY 0RF Rx Instructions: TAKE ALONG WITH 30MG TAB FOR TOTAL DAILY DOSE OF 90MG lidocaine [Lidoderm] 1 PATCH patch 1 patch Topical Q24H Qty: 4 0RF methocarbamol 500 mg tablet 500 mg PO Q6H PRN (Reason: muscle spasm) Qty: 14 0RF docusate sodium [Colace] 100 mg Capsule 100 mg PO DAILY PRN0RF topiramate 25 mg tablet 25 mg PO HS 0RF Label Comments: TAKE 1 TABLET BY MOUTH AT BEDTIME topiramate 50 mg tablet 50 mg PO HS 0RF Label Comments: TAKE 1 TABLET BY MOUTH ONCE DAILY tramadol 50 mg tablet 50 mg PO Q6H PRN PRN (Reason: pain) 0RF amlodipine 2.5 mg tablet 2.5 mg PO DAILY 0RF gabapentin 300 mg capsule 300 mg PO BID 0RF Rx Instructions: FOR DIABETIC FOOT NEUROPATHY cholecalciferol (vitamin D3) [Vitamin D3] 1,000 unit Tablet 1,000 unit PO DAILY 0RF pantoprazole [Protonix] 40 mg tablet,delayed release (DR/EC) 40 mg PO DAILY Qty: 30 0RF Victoza 2-Thanh 0.6 mg/0.1 mL (18 mg/3 mL) pen injector 1.8 mg SUBCUT DAILY 0RF magnesium 200 mg Tablet 400 mg PO DAILY 0RF mupirocin 2 % Ointment 1 applic TOPICAL BID 0RF potassium chloride 10 mEq Capsule, Extended Release 10 meq PO DAILY 0RF Discharge Instructions Instructions: Muscle Strain (ED), Leg Pain (ED) Additional Instructions: Please return immediately to the emergency department if you develop any new or worsening symptoms, if your condition does not improve as expected, or if you become otherwise concerned. It is extremely important that you call soon as possible to make an appointment to be seen in follow-up for this visit by your primary care doctor. Referrals: Alisa Ramirez MD [Primary Care Provider] - Discharge Data Discharge Date/Time-TO BE ENTERED AT DEPARTURE: 09/15/21 11:12 Medical Decision Making Fredo Osman is a 71 y/o man presenting to the emergency department with leg pain. Per Pt and record review, he was seen here yesterday for evaluation of right posterior calf pain, had outpt US for this morning, and now presents to the ED for results of US. Pt reports that two days ago he tripped and fell, striking the anterior aspect of his right lower leg against the bottom portion of an open car door. He states that he felt like he pulled his calf muscle when this occurred. He was seen here yesterday for on-going calf pain, had xrays p erformed and was d/jhoan to home. Pt reports that pain is unchanged or mildly improved from yesterday. He has been walking with boot and crutches that were provided at that visit. He denies worsening pain or swelling, and other pain, rash or skin redness, numbness, weakness, fever vomiting, diarrhea, SOB, cough. He states that he feels otherwise well and in his usual state of health. On exam Pt is well and non-toxic appearing. There is TTP of the right posterior calf that reproduces pain. RLE is NVI. Normal exam of the knee and ankle. US resulted as negative for DVT. Concern for muscle strain. Exam/hx at this time is not c/w cellulitis/myositis, compartment syndrome, acute bony pathology, Achilles tendon rupture, other acute emergent condition. Pt is comfortable for d/c to home with outpt f/u. I had a discussion with Patient regarding return to emergency department precautions, home care, and importance of outpatient follow-up. Pt verbalizes understanding of the plan and is amenable. Patient discharged to home with clear plan for outpatient follow-up. All questions were answered. Disposition decision was made weighing the risks and benefits of hospitalization versus outpatient treatment, the risk for further decompensation, and the patient's wishes. Imaging Data Radiologic Study: Radiologist's impression: EXAM:? US LOWER EXTREMITY VENOUS RT CLINICAL HISTORY: ? RT CALF PAIN AND SWELLING, R22.41.? TECHNIQUE: ? Lower extremity venous ultrasound performed using grayscale, color- flow, and spectral Doppler analysis. COMPARISON:? No exams were available for comparison FINDINGS: The common femoral, femoral and popliteal veins demonstrate normal compressibility, augmentation, and color Doppler. The posterior tibial veins are patent.? No saphenous vein thrombosis or other superficial venous thrombosis is seen.? Mild edema in the calf region.? No hematoma or Cao's cyst is seen. IMPRESSION: Mild calf edema..? No evidence of DVT.? HPI General Date/Time Provider Initiated Documentation: 09/15/21 10:29 . Information obtained by: patient, family, RN notes reviewed and old records reviewed . HPI Narrative: Fredo Osman is a 71 y/o man presenting to the emergency department with leg pain. Per Pt and record review, he was seen here yesterday for evaluation of right posterior calf pain, had outpt US for this morning, and now presents to the ED for results of US. Pt reports that two days ago he tripped and fell, striking the anterior aspect of his right lower leg against the bottom portion of an open car door. He states that he felt like he pulled his calf muscle when this occurred. He was seen here yesterday for on-going calf pain, had xrays performed and was d/jhoan to home. Pt reports that pain is unchanged or mildly improved from yesterday. He has been walking with boot and crutches that were provided at that visit. He denies worsening pain or swelling, and other pain, rash or skin redness, numbness, weakness, fever vomiting, diarrhea, SOB, cough. He states that he feels otherwise well and in his usual state of health. Related Data Home Medications Medication Instructions Recorded Confirmed allopurinol 300 mg tablet 300 mg PO DAILY 01/24/13 09/15/21 levothyroxine 50 mcg tablet 50 mcg PO DAILY@0730 01/24/13 09/15/21 quetiapine 300 mg tablet (Seroquel) 300 mg PO HS 01/24/13 09/15/21 rosuvastatin 20 mg tablet (Crestor) 20 mg PO HS 03/22/17 09/15/21 nitroglycerin 0.4 mg sublingual 0.4 mg SUBLINGUAL as directed 04/08/17 09/15/21 tablet (Nitrostat) polyethylene glycol 3350 17 gram 17 g PO DAILY PRN #255 gm 04/08/17 09/15/21 oral powder packet (Miralax) insulin detemir U-100 100 unit/mL 75 units SUBCUT BID 08/04/17 09/15/21 (3 mL) subcutaneous pen (Levemir FlexTouch U-100 Insulin) cholecalciferol (vitamin D3) 25 1,000 unit PO DAILY 11/11/18 09/15/21 mcg (1,000 unit) tablet (Vitamin D3) metformin 1,000 mg tablet 1,000 mg PO BID 03/08/19 09/15/21 (Glucophage) riboflavin (vitamin B2) 100 mg 400 mg PO BID tab 03/28/19 09/15/21 tablet (Vitamin B-2) bisacodyl 5 mg tablet,delayed 5 mg PO DAILY PRN tab 04/17/19 09/15/21 release (Dulcolax (bisacodyl)) cod liver oil 1 cap PO DAILY 04/17/19 09/15/21 pantoprazole 40 mg tablet,delayed 40 mg PO DAILY #30 tab 04/25/19 09/15/21 release (Protonix) metoprolol succinate 50 mg 50 mg PO DAILY 05/10/19 09/15/21 tablet,extended release 24 hr acetylcysteine 600 mg capsule (NAC) 600 mg PO BID cap 05/16/19 09/15/21 citalopram 20 mg tablet 10 mg PO DAILY tab 05/16/19 09/15/21 lisinopril 20 mg tablet 30 mg PO DAILY 05/24/19 09/15/21 diclofenac sodium 1 % topical gel 1 applic TOPICAL DIRECTED 04/30/20 09/15/21 (Voltaren) ranolazine 500 mg tablet,extended 500 mg PO BID 04/30/20 09/15/21 release,12 hr (Ranexa) liraglutide 0.6 mg/0.1 mL (18 mg/3 1.8 mg SUBCUT DAILY 06/19/20 09/15/21 mL) subcutaneous pen injector ([employer] 2-Thanh) isosorbide mononitrate 60 mg 60 mg PO DAILY 09/18/20 09/15/21 tablet,extended release 24 hr lidocaine 5 % topical patch 1 patch TOPICAL Q24H #4 ea 10/14/20 09/15/21 (Lidoderm) methocarbamol 500 mg tablet 500 mg PO Q6H PRN #14 tab 11/07/20 09/15/21 triamcinolone acetonide 0.1 % 1 applic TOPICAL BID 11/13/20 09/15/21 topical ointment docusate sodium 100 mg capsule 100 mg PO DAILY PRN 01/07/21 09/15/21 (Colace) topiramate 25 mg tablet 25 mg PO HS 01/09/21 09/15/21 topiramate 50 mg tablet 50 mg PO HS 01/09/21 09/15/21 gabapentin 300 mg capsule 300 mg PO BID cap 02/04/21 09/15/21 carboxymethylcellulose sodium 0.5 1 - 2 drp OPHTHALMIC (EYE) QID PRN 03/27/21 09/15/21 % eye drops (Refresh Tears) phenazopyridine 200 mg tablet 200 mg PO TID PRN 03/27/21 09/15/21 magnesium 200 mg tablet 400 mg PO DAILY 06/07/21 09/15/21 tramadol 50 mg tablet 50 mg PO Q6H PRN PRN 06/19/21 09/15/21 methylprednisolone 4 mg tablets in 4 mg PO DAILY #21 dose pk 08/13/21 09/15/21 a dose pack ([place] [employer])) amlodipine 2.5 mg tablet 2.5 mg PO DAILY tab 08/18/21 09/15/21 finasteride 5 mg tablet 5 mg PO DAILY #90 tab 08/18/21 09/15/21 mupirocin 2 % topical ointment 1 applic TOPICAL BID 09/14/21 09/15/21 potassium chloride 10 mEq 10 meq PO DAILY 09/14/21 09/15/21 capsule,extended release Previous Rx's Medication Instructions Recorded pantoprazole 40 mg tablet,delayed 40 mg PO DAILY #30 tab 04/25/19 release (Protonix) lidocaine 5 % topical patch 1 patch TOPICAL Q24H #4 ea 10/14/20 (Lidoderm) methocarbamol 500 mg tablet 500 mg PO Q6H PRN #14 tab 11/07/20 methylprednisolone 4 mg tablets in 4 mg PO DAILY #21 dose pk 08/13/21 a dose pack ([place] [employer] ([employer])) finasteride 5 mg tablet 5 mg PO DAILY #90 tab 08/18/21 Allergies Allergy/AdvReac Type Severity Reaction Status Date / Time amoxicillin Allergy Severe breathing Unverified 09/15/21 10:38 difficuty and vomiting Penicillins Allergy Intermediate Skin Rash Unverified 09/14/21 13:46 sulfamethoxazole Allergy Intermediate Skin Rash Unverified 09/14/21 13:46 [From Bactrim] trimethoprim [From Bactrim] Allergy Intermediate Skin Rash Unverified 09/14/21 13:46 oxycodone HCl [From Percocet] AdvReac Severe Contraindic Unverified 09/14/21 13:46 ated oxycodone terephthalate AdvReac Severe Contraindic Unverified 09/14/21 13:46 [From Percodan] ated General Stated Complaint: Recheck MADELIN: 5 Review of Systems Narrative: Constitutional: denies fevers Eyes: denies eye pain ENT: denies ear pain, dental pain, sore throat Cardiovascular: denies chest pain Respiratory: denies SOB, cough GI: denies abdominal pain, vomiting, diarrhea : denies flank pain MSK: denies back pain, neck pain, arthralgias, reports right calf pain Skin: denies rash Neuro: denies headaches, numbness, weakness PFSH All Active Problems (Updated 09/15/21 @ 10:59 by Sammi Quiñones MD) Strain of right calf muscle (Acute) Pain in right lower leg (Acute) Lumbar radiculopathy (Acute) Compression fracture of lumbar vertebra (Acute) Viral URI with cough (Acute) Chest pain (Acute) Unstable angina (Acute) UTI (urinary tract infection) (Acute) UTI (urinary tract infection) (Acute) Arthritis of right hip (Acute) Contusion of right hip (Acute) Left rib fracture (Acute) Rib pain on left side (Acute) Chest wall muscle strain (Acute) History of rib fracture (Acute) Head trauma (Acute) Discharge planning issues (Acute) DVT prophylaxis (Acute) Chronic subdural hematoma (Chronic) Chest pain (Acute) Pituitary abnormality (Acute) Neck pain (Acute) Hand weakness (Acute) Cubital tunnel syndrome on right (Acute) Lower urinary tract symptoms (Chronic) Lumbar radiculitis (Acute) Lumbosacral spondylosis without myelopathy (Acute) Chronic rhinitis (Chronic) Atypical chest pain (Acute) Musculoskeletal; Negative NPI 04/29/2018 Urethral stricture (Acute 08/20/15) Sensory hearing loss, bilateral (Chronic 04/09/14) Sensorineural hearing loss, asymmetrical (Chronic 05/12/13) Postnasal drip (Chronic 05/13/15) Mild cognitive impairment (Chronic 01/31/18) Hypertrophy of nasal turbinates (Chronic 08/05/15) 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) Deviated nasal septum (Chronic 08/05/15) Thoracic spondylosis without myelopathy (Chronic) Coronary artery disease (Chronic) Hyperlipidemia (Chronic) Diabetes mellitus type 2 in obese (Chronic) Medical History Anemia, iron deficiency Chronic low back pain Colon polyps Constipation, chronic Depression Diastasis recti DM type 2 (diabetes mellitus, type 2) Fatty liver GERD (gastroesophageal reflux disease) Gout H/O alcohol abuse Headaches due to 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 Hx of deep venous thrombosis Hx of traumatic brain injury Hyperlipidemia Hypertension Hypothyroidism Knee pain, right Migraine headache Mild dementia MRSA infection Obstructive sleep apnea Pain in joint of right foot Rathke's pouch cyst Recurrent UTI Rhinorrhea Right sided weakness Tinea pedis Urethral stricture Vitamin D deficiency Volvulus of cecum Surgical History Appendectomy (06/01/16) Colonoscopy - MAC 2009-5year f/u 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 electroconvulsive therapy Extraction of cataract facial lesion removal Repair of inguinal hernia (08/05/17) right inguinal hernia repair by Dr Arroyo on 08/05/17 Repair of umbilical hernia Social History Smoking/Tobacco Use Status: Never Smoking risk assessment performed?: Yes Alcohol Intake: former Drug use: Never Substance use type: does not use Household members: spouse Housing: house Pets and animals: Yes Pets and animals: dog(s) Do you feel safe at home: Yes Do you feel safe in your relationship?: Yes Exam Narrative Exam Narrative: Constitutional: well and [id number], pleasant, conversing normally HENT: head atraumatic/normocephalic/normal inspection, mucous membranes moist Eyes: conjunctiva normal, sclera normal, pupils 3mm b/l Neck: no stridor, normal ROM, trachea midline Resp: normal work of breathing, speaking in full sentences Cardio: normal rate, normal rhythm Skin: warm, dry, normal color, no rash Neuro: alert, not altered, grossly non-focal, normal tone Ext: trace edema of the right lower leg, no overlying skin changes of the right ankle, lower leg, or knee, no RLE joint effusion, DP pulses intact and symmetric, sensation right foot intact, right dorsal/plantar flexion 5/5, full ROM right knee/ankle, right posterior calf diffusely TTP without crepitus, deformity, mass, induration, fluctuance, no anterior tibia TTP, compartments right lower leg soft. Psych: normal mood, normal affect, normal behavior Course Vital Signs Vital signs: Vital Signs Temperature 36.5 C 09/15/21 10:32 Pulse 94 H 09/15/21 10:32 Respiratory Rate 18 09/15/21 10:32 Blood Pressure 131/67 09/15/21 10:32 Pulse Oximetry 97 09/15/21 10:32 Temperature 36.5 C 09/15/21 10:32 Temperature Source Temporal Artery Scan 09/15/21 10:32 Pulse 94 H 09/15/21 10:32 Respiratory Rate 18 09/15/21 10:32 Respiratory Effort Non-Labored 09/15/21 10:37 Blood Pressure 131/67 09/15/21 10:32 Blood Pressure Position Supine 09/15/21 10:32 Pulse Oximetry 97 09/15/21 10:32 Oxygen Delivery Method Room Air 09/15/21 10:32 Oxygen Flow Rate 0 09/15/21 10:32 Pain Level 8 09/15/21 11:05
== END 2021-09-15 11:12 | disposition home or self-care (01) ==
PROVIDERS: Emergency Provider Student in an Organized Health Care Education/Training Program; PCP Family Medicine
DX: M79.604 Pain in right leg (principal); R60.0 Localized edema
CPT/HCPCS: 99282

== ENCOUNTER 2021-09-15 11:11 | Outpatient (CLI) | payer MEDICARE, OTHER, SELFPAY ==
--- NOTE | 2021-09-15 | DI.US_ITS ---
Exam(s) US LOWER EXTREMITY VENOUS RT EXAM: US LOWER EXTREMITY VENOUS RT CLINICAL HISTORY: RT CALF PAIN AND SWELLING, R22.41. TECHNIQUE: Lower extremity venous ultrasound performed using grayscale, color-flow, and spectral Do ppler analysis. COMPARISON: No exams were available for comparison FINDINGS: The common femoral, femoral and popliteal veins demonstrate normal compressibility, augmentation, and color Doppler. The posterior tibial veins are patent. No saphenous vein thrombosis or other superfi cial venous thrombosis is seen. Mild edema in the calf region. No hematoma or Cao's cyst is seen. IMPRESSION: Mild calf edema.. No evidence of DVT. DATA REPOSITORY:
== END 2021-09-15 11:31 ==
PROVIDERS: PCP Family Medicine; Visit Provider Physician Assistant
DX: R22.41 Localized swelling, mass and lump, right lower limb (principal)
CPT/HCPCS: 99282; 93971

== ENCOUNTER 2021-11-05 22:53 | Emergency (ER) | payer MEDICARE, OTHER, SELFPAY ==
[2021-11-05 23:17] VITALS: BP 157/91; PULSE 97; RESP 14; TEMP 36.3; O2SAT 96
--- NOTE | 2021-11-05 23:25 | ED.GENADUL_ITS ---
Discharge Plan Disposition Patient Disposition: HOME Condition: Good Discharge Details Clinical Impression: Acute foreign body of left ear Primary Care Provider: Alisa Ramirez ED Provider: Christopher Lua Home Meds and New Rx's Prescriptions: Continued triamcinolone acetonide 0.1 % Ointment 1 applic TOPICAL BID finasteride 5 mg tablet 5 mg PO DAILY Qty: 90 4RF phenazopyridine 200 mg Tablet 200 mg PO TID PRN Rx Instructions: For 2 days carboxymethylcellulose sodium [Refresh Tears] 0.5 % Drops 1 - 2 drp OPHTHALMIC (EYE) QID PRN acetylcysteine [NAC] 600 mg capsule 600 mg PO BID cod liver oil Capsule 1 cap PO DAILY bisacodyl [Dulcolax (bisacodyl)] 5 mg tablet,delayed release (DR/EC) 5 mg PO DAILY PRN metoprolol succinate 50 mg tablet extended release 24 hr 50 mg PO DAILY citalopram 20 mg tablet 10 mg PO DAILY diclofenac sodium [Voltaren] 1 % gel 1 applic topical DIRECTED Rx Instructions: apply to single elbow, wrist or hand; for hand includes palm/fingers/back of hand ranolazine [Ranexa] 500 mg tablet extended release 12 hr 500 mg PO BID methylprednisolone [Medrol (Thanh)] 4 mg tablets,dose pack 4 mg PO DAILY Qty: 21 0RF polyethylene glycol 3350 [Miralax] 17 GM powder in packet 17 g PO DAILY PRNQty: 255 nitroglycerin [Nitrostat] 0.4 MG tablet, sublingual 0.4 mg Sublingual as directed Levemir FlexTouch U-100 Insuln 100 UNIT/1 ML insulin pen 75 units subcut BID Rx Instructions: If blood sugar is frequently over 140 may go back to 80 units BID riboflavin (vitamin B2) [Vitamin B-2] 100 mg tablet 400 mg PO BID levothyroxine 50 MCG tablet 50 mcg PO DAILY@0730 allopurinol 300 MG tablet 300 mg PO DAILY quetiapine [Seroquel] 300 MG tablet 300 mg PO HS rosuvastatin [Crestor] 20 MG tablet 20 mg PO HS metformin [Glucophage] 1,000 mg Tablet 1,000 mg PO BID lisinopril 20 mg Tablet 30 mg PO DAILY isosorbide mononitrate 60 mg tablet extended release 24 hr 60 mg PO DAILY Rx Instructions: TAKE ALONG WITH 30MG TAB FOR TOTAL DAILY DOSE OF 90MG lidocaine [Lidoderm] 1 PATCH patch 1 patch Topical Q24H Qty: 4 0RF methocarbamol 500 mg tablet 500 mg PO Q6H PRN (Reason: muscle spasm) Qty: 14 0RF docusate sodium [Colace] 100 mg Capsule 100 mg PO DAILY PRN topiramate 25 mg tablet 25 mg PO HS Label Comments: TAKE 1 TABLET BY MOUTH AT BEDTIME topiramate 50 mg tablet 50 mg PO HS Label Comments: TAKE 1 TABLET BY MOUTH ONCE DAILY tramadol 50 mg tablet 50 mg PO Q6H PRN PRN (Reason: pain) amlodipine 2.5 mg tablet 2.5 mg PO DAILY gabapentin 300 mg capsule 300 mg PO BID Rx Instructions: FOR DIABETIC FOOT NEUROPATHY cholecalciferol (vitamin D3) [Vitamin D3] 1,000 unit Tablet 1,000 unit PO DAILY pantoprazole [Protonix] 40 mg tablet,delayed release (DR/EC) 40 mg PO DAILY Qty: 30 0RF Victoza 2-Thanh 0.6 mg/0.1 mL (18 mg/3 mL) pen injector 1.8 mg SUBCUT DAILY magnesium 200 mg Tablet 400 mg PO DAILY mupirocin 2 % Ointment 1 applic TOPICAL BID potassium chloride 10 mEq Capsule, Extended Release 10 meq PO DAILY Discharge Instructions Additional Instructions: The foreign body has been removed. Please be cautious when using those types of speakers. If you notice any worsening of your symptoms, or any new symptoms such as vomiting, diarrhea, fever, chills, shortness of breath, chest pain, numbness, weakness, or fainting , please return immediately to the emergency department for reevaluation. Please follow up with your primary care provider as soon as possible for reassessment and reevaluation. As always, it was a pleasure participating in your medical care today. Referrals: Alisa Ramirez MD [Primary Care Provider] - Medical Decision Making This is a very pleasant 71-year-old male with an extensive past medical history who presents for foreign body in his left ear. Patient was wearing his headphones when the plug got stuck in his ear. He comes in to have it removed. He denies any pain or hearing changes. No other trauma otherwise. No other complaints at this time. Physical exam demonstrates rubber stopper from headphones noted in left ear. This was removed without complication using forceps and the operating otoscope head. Review and evaluation of left otic canal after removal demonstrates no evidence of trauma or bleeding. No complications. Patient tolerated procedure well. I have extensively reviewed the treatment plan and discharge instructions with the patient. I have addressed all patient concerns at this time. The abi mariah was made aware of what symptoms to monitor for that would warrant a return to the emergency department. Discussed the plan with the patient, they demonstrate verbal understanding and agreement with our assessment and plan at this time. The documentation in this chart was dictated using [employer] dictation software. Please excuse any dictation errors. HPI General Date/Time Provider Initiated Documentation: 11/05/21 23:14 . HPI Narrative: This is a very pleasant 71-year-old male with an extensive past medical history who presents for foreign body in his left ear. Patient was wearing his headphones when the plug got stuck in his ear. He comes in to have it removed. He denies any pain or hearing changes. No other trauma otherwise. No other complaints at this time. Related Data Home Medications Medication Instructions Recorded Confirmed allopurinol 300 mg tablet 300 mg PO DAILY 01/24/13 09/15/21 levothyroxine 50 mcg tablet 50 mcg PO DAILY@0730 01/24/13 09/15/21 quetiapine 300 mg tablet (Seroquel) 300 mg PO HS 01/24/13 09/15/21 rosuvastatin 20 mg tablet (Crestor) 20 mg PO HS 03/22/17 09/15/21 nitroglycerin 0.4 mg sublingual 0.4 mg sublingual as directed 04/08/17 09/15/21 tablet (Nitrostat) polyethylene glycol 3350 17 gram 17 g PO DAILY PRN #255 grams 04/08/17 09/15/21 oral powder packet (Miralax) insulin detemir U-100 100 unit/mL 75 units subcut BID 08/04/17 09/15/21 (3 mL) subcutaneous pen (Levemir FlexTouch U-100 Insulin) cholecalciferol (vitamin D3) 25 1,000 unit PO DAILY 11/11/18 09/15/21 mcg (1,000 unit) tablet (Vitamin D3) metformin 1,000 mg tablet 1,000 mg PO BID 03/08/19 09/15/21 (Glucophage) riboflavin (vitamin B2) 100 mg 400 mg PO BID 03/28/19 09/15/21 tablet (Vitamin B-2) bisacodyl 5 mg tablet,delayed 5 mg PO DAILY PRN 04/17/19 09/15/21 release (Dulcolax (bisacodyl)) cod liver oil 1 cap PO DAILY 04/17/19 09/15/21 pantoprazole 40 mg tablet,delayed 40 mg PO DAILY #30 tabs 04/25/19 09/15/21 release (Protonix) metoprolol succinate 50 mg 50 mg PO DAILY 05/10/19 09/15/21 tablet,extended release 24 hr acetylcysteine 600 mg capsule (NAC) 600 mg PO BID 05/16/19 09/15/21 citalopram 20 mg tablet 10 mg PO DAILY 05/16/19 09/15/21 lisinopril 20 mg tablet 30 mg PO DAILY 05/24/19 09/15/21 diclofenac sodium 1 % topical gel 1 applic topical DIRECTED 04/30/20 09/15/21 (Voltaren) ranolazine 500 mg tablet,extended 500 mg PO BID 04/30/20 09/15/21 release,12 hr (Ranexa) liraglutide 0.6 mg/0.1 mL (18 mg/3 1.8 mg subcut DAILY 06/19/20 09/15/21 mL) subcutaneous pen injector ([employer] 2-Thanh) isosorbide mononitrate 60 mg 60 mg PO DAILY 09/18/20 09/15/21 tablet,extended release 24 hr lidocaine 5 % topical patch 1 patch topical Q24H #4 ea 10/14/20 09/15/21 (Lidoderm) methocarbamol 500 mg tablet 500 mg PO Q6H PRN muscle spasm #14 11/07/20 09/15/21 tabs triamcinolone acetonide 0.1 % 1 applic topical BID 11/13/20 09/15/21 topical ointment docusate sodium 100 mg capsule 100 mg PO DAILY PRN 01/07/21 09/15/21 (Colace) topiramate 25 mg tablet 25 mg PO HS 01/09/21 09/15/21 topiramate 50 mg tablet 50 mg PO HS 01/09/21 09/15/21 gabapentin 300 mg capsule 300 mg PO BID 02/04/21 09/15/21 carboxymethylcellulose sodium 0.5 1 - 2 drp ophthalmic (eye) QID PRN 03/27/21 09/15/21 % eye drops (Refresh Tears) phenazopyridine 200 mg tablet 200 mg PO TID PRN 03/27/21 09/15/21 magnesium 200 mg tablet 400 mg PO DAILY 06/07/21 09/15/21 tramadol 50 mg tablet 50 mg PO Q6H PRN PRN pain 06/19/21 09/15/21 methylprednisolone 4 mg tablets in 4 mg PO DAILY Severe lumbosacral 08/13/21 09/15/21 a dose pack (3Touchrol (Thanh)) radiculopathy #21 dose pk amlodipine 2.5 mg tablet 2.5 mg PO DAILY 08/18/21 09/15/21 finasteride 5 mg tablet 5 mg PO DAILY #90 tabs 08/18/21 09/15/21 mupirocin 2 % topical ointment 1 applic topical BID 09/14/21 09/15/21 potassium chloride 10 mEq 10 meq PO DAILY 09/14/21 09/15/21 capsule,extended release Previous Rx's Medication Instructions Recorded pantoprazole 40 mg tablet,delayed 40 mg PO DAILY #30 tabs 04/25/19 release (Protonix) lidocaine 5 % topical patch 1 patch topical Q24H #4 ea 10/14/20 (Lidoderm) methocarbamol 500 mg tablet 500 mg PO Q6H PRN muscle spasm #14 11/07/20 tabs methylprednisolone 4 mg tablets in 4 mg PO DAILY Severe lumbosacral 08/13/21 a dose pack (3Touchrol ([employer])) radiculopathy #21 dose pk finasteride 5 mg tablet 5 mg PO DAILY #90 tabs 08/18/21 Allergies Allergy/AdvReac Type Severity Reaction Status Date / Time amoxicillin Allergy Severe breathing Unverified 11/05/21 23:22 difficuty and vomiting Penicillins Allergy Intermediate Skin Rash Unverified 11/05/21 23:22 sulfamethoxazole Allergy Intermediate Skin Rash Unverified 11/05/21 23:22 [From Bactrim] trimethoprim [From Bactrim] Allergy Intermediate Skin Rash Unverified 11/05/21 23:22 oxycodone HCl [From Percocet] AdvReac Severe Contraindic Unverified 11/05/21 23:22 ated oxycodone terephthalate AdvReac Severe Contraindic Unverified 11/05/21 23:22 [From Percodan] ated General Stated Complaint: GenMedical MADELIN: 4 Review of Systems All systems reviewed & are unremarkable except as noted in HPI and below PFSH All Active Problems Acute foreign body of left ear (Acute) Lumbar radiculopathy (Acute) Compression fracture of lumbar vertebra (Acute) Viral URI with cough (Acute) Chest pain (Acute) Unstable angina (Acute) UTI (urinary tract infection) (Acute) UTI (urinary tract infection) (Acute) Arthritis of right hip (Acute) Contusion of right hip (Acute) Left rib fracture (Acute) Rib pain on left side (Acute) Chest wall muscle strain (Acute) History of rib fracture (Acute) Head trauma (Acute) Discharge planning issues (Acute) DVT prophylaxis (Acute) Chronic subdural hematoma (Chronic) Chest pain (Acute) Pituitary abnormality (Acute) Neck pain (Acute) Hand weakness (Acute) Cubital tunnel syndrome on right (Acute) Lower urinary tract symptoms (Chronic) Lumbar radiculitis (Acute) Lumbosacral spondylosis without myelopathy (Acute) Chronic rhinitis (Chronic) Atypical chest pain (Acute) Musculoskeletal; Negative NPI 04/29/2018 Urethral stricture (Acute 08/20/15) Sensory hearing loss, bilateral (Chronic 04/09/14) Sensorineural hearing loss, asymmetrical (Chronic 05/12/13) Postnasal drip (Chronic 05/13/15) Mild cognitive impairment (Chronic 01/31/18) Hypertrophy of nasal turbinates (Chronic 08/05/15) 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) Deviated nasal septum (Chronic 08/05/15) Thoracic spondylosis without myelopathy (Chronic) Coronary artery disease (Chronic) Hyperlipidemia (Chronic) Diabetes mellitus type 2 in obese (Chronic) Medical History Anemia, iron deficiency Chronic low back pain Colon polyps Constipation, chronic Depression Diastasis recti DM type 2 (diabetes mellitus, type 2) Fatty liver GERD (gastroesophageal reflux disease) Gout H/O alcohol abuse Headaches due to 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 Hx of deep venous thrombosis Hx of traumatic brain injury Hyperlipidemia Hypertension Hypothyroidism Knee pain, right Migraine headache Mild dementia MRSA infection Obstructive sleep apnea Pain in joint of right foot Rathke's pouch cyst Recurrent UTI Rhinorrhea Right sided weakness Tinea pedis Urethral stricture Vitamin D deficiency Volvulus of cecum Surgical History Appendectomy (06/01/16) Colonoscopy - MAC 2010-5year f/u 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 electroconvulsive therapy Extraction of cataract facial lesion removal Repair of inguinal hernia (08/05/17) right inguinal hernia repair by Dr Arroyo on 08/05/17 Repair of umbilical hernia Social History Smoking/Tobacco Use Status: Never Smoking risk assessment performed?: Yes Alcohol Intake: former Drug use: Never Substance use type: does not use Household members: spouse Housing: house Pets and animals: Yes Pets and animals: dog(s) Do you feel safe at home: Yes Do you feel safe in your relationship?: Yes Exam Narrative Exam Narrative: 1.Const: Well-nourished, Well-developed, appearing stated age 2.Eyes: PERRL, no conjunctival injection, and symmetrical lids. 3.ENT: Atraumatic external nose and ears. Moist MM. Neck: Symmetric, trachea midline, No thyromegaly. Patient's left ear demonstrates a rubber earbud tip stuck in the left canal. No evidence of bleeding or trauma after he was removed successfully without c omplication. 4.CVS: +S1/S2, No murmurs or gallops. Peripheral pulses 2+ and equal in all extremities. Brisk capillary refill in all extremities. 5.RESP: Unlabored respiratory effort. Clear to auscultation bilaterally. No wheezes rales or rhonchi 6.GI: Soft, Nontender/Nondistended, No hepatosplenomegaly. No guarding or rebound. 7.MSK: Normocephalic/Atraumatic, Extremities w/o deformity or ttp No cyanosis or clubbing, Normal movement of all extremities 8.Skin: Warm, Dry. No rashes or lesions. 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 Sensation grossly intact, no focal neurologic deficits. 10.Psych: (AAO) x3. Appropriate mood and affect Course Vital Signs Vital signs: Vital Signs Temperature 36.3 C L 11/05/21 23:17 Pulse 97 H 11/05/21 23:17 Respiratory Rate 14 11/05/21 23:17 Blood Pressure 157/91 H 11/05/21 23:17 Pulse Oximetry 96 11/05/21 23:17 Temperature 36.3 C L 11/05/21 23:17 Temperature Source Tympanic 11/05/21 23:17 Pulse 97 H 11/05/21 23:17 Respiratory Rate 14 11/05/21 23:17 Respiratory Effort Non-Labored 11/05/21 23:21 Blood Pressure 157/91 H 11/05/21 23:17 Blood Pressure Position Supine 11/05/21 23:17 Pulse Oximetry 96 11/05/21 23:17 Oxygen Delivery Method Room Air 11/05/21 23:17 Oxygen Flow Rate 0 11/05/21 23:17 Pain Level 5 11/05/21 23:17 Procedures Foreign Body Removal Time Out Performed: yes Site: left and ear Description of foreign body: other Sedation/Analgesia: none Technique: manual removal and removal with forceps Confirmed by:: direct visualization Complications: none Post-procedure exam: awake, alert
== END 2021-11-05 23:40 | disposition home or self-care (01) ==
PROVIDERS: Emergency Provider Student in an Organized Health Care Education/Training Program; PCP Family Medicine
DX: T16.2XXA Foreign body in left ear, initial encounter (principal); X58.XXXA Exposure to other specified factors, initial encounter
CPT/HCPCS: 69200

== ENCOUNTER 2021-11-06 20:07 | Outpatient (REF) | payer MEDICARE, OTHER, SELFPAY ==
[2021-11-06 16:34] LABS: HCT 38.7 % (40.0-50.0); HGB 12.5 g/dL (13.5-17.5); MCH 28.3 pg (27.0-33.0); MCHC 32.3 % (32.0-36.0); MCV 88 fL (80-95); MPV 9.3 fL (8.0-11.0); Platelet Count 184 10^3/uL (130-400); RBC 4.41 10^6/uL (4.36-5.78); RDW 14.8 % (11.8-14.1); RDW-SD 47.2 fL; WBC 5.68 10^3/uL (4.4-10.8)
[2021-11-06 16:48] LABS: Hemoglobin A1C 6.5 % (<5.7)
[2021-11-06 16:49] LABS: Anion Gap 8.4 mmol/L (3-11); BUN 13 mg/dL (7-18); CO2 23.6 mmol/L (21.0-32.0); CREATININE 1.3 mg/dL (0.70-1.30); Calcium 8.9 mg/dL (8.5-10.1); Chloride 103 mmol/L (98-107); Estimated GFR 54.26 (mL/min/1.73m2); Glucose 163 mg/dL (74-106); Potassium 3.8 mmol/L (3.5-5.1); Sodium 135 mmol/L (136-145); TSH (W/Ref FT4) 2.26 uIU/mL (0.36-3.74)
== END 2021-11-06 20:08 | disposition home or self-care (01) ==
LOC: NCHCN 20:07
PROVIDERS: PCP Family Medicine; Visit Provider Family Medicine
DX: E03.9 Hypothyroidism, unspecified (principal); E11.9 Type 2 diabetes mellitus without complications; I25.10 Atherosclerotic heart disease of native coronary artery without angina pectoris
CPT/HCPCS: 80048; 85027; 83036; 84443

== ENCOUNTER 2021-12-03 08:56 | Outpatient (CLI) | payer MEDICARE, OTHER, SELFPAY ==
--- NOTE | 2021-12-03 06:00 | DI.RAD_ITS ---
Exam(s) XR PAIN CLINIC THORACIC SP 2V EXAM: XR PAIN CLINIC THORACIC SP 2V CLINICAL HISTORY: Dx: Thoracic Spondylosis TECHNIQUE: 2D and realtime digital imaging was performed. Radiologist not present. CONTRAST MATERIAL: None. COMPARISON: No exams were available for comparison FINDINGS: Fluoroscopy was provided for pain management therapy. Please refer to procedure report or details. Cumulative dose: Ka,r=27.62 mGy IMPRESSION: RADIATION DOSE DELIVERED:
[2021-12-03 09:14] VITALS: BP 124/78; PULSE 99; RESP 20; TEMP 36.8; O2SAT 97
[2021-12-03] MEDS: Lidocaine 2% Pres-Free 2 ML VIAL IJ (09:56)
[2021-12-03] MEDS: Omnipaque 240 MG/ML 50 ML BTL IJ (09:57)
--- NOTE | 2021-12-03 10:04 | PDOC.PAIN ---
Pain Clinic Procedure Note Procedure Note Procedure Note: Lumbar/Sacral Medial Branch Blocks Fredo Osman has been referred to the [facility] for lumbar/sacral medial branch blocks. COMMENTS: He did well with his first blocks on 09/04/21. His pre-procedure pain VAS was 6/10. 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 There were no medical, pharmacologic, radiographic or other structural contraindications to attempting fluoroscopically guided local anesthetic lumbar/sacral medial branch blocks. Risks and expected side effects as well as potential benefit of the procedure were reviewed and voiced concerns addressed. The printed consent form was signed and witnessed. Standard time-out procedure was performed. Patient was placed in the prone position on the fluoroscopy table and automated blood pressure cuff and pulse oximeter applied. The skin entry points for approaching the anatomic target points of the segmental medial branches of bilateral T11, T12, and L1 were identified with anfluoroscopy and marked. Following thorough Chlorhexadine preparation of the skin and draping and 1% lidocaine infiltration of the skin entry points and subcutaneous tissues, a 22 gauge spinal needle was placed under fluoroscopic guidance down on to the target point for each respective segmental medial branch.Position was confirmed in A/P, oblique and lateral views with 0.25ml of omnipaque 240. At that point I injected 0.5 cc of 2% Lidocaine at each segmental sensory nerve. Vital signs were stable throughout the procedure and were as recorded in the docflowsheet by the nursing staff. Follow up plans and appointments were discussed and was instructed to keep careful note of how the usual pain was modified by these injections. Specifically was asked to keep a pain diary for the next 24 hours using a numeric pain scale of 0-10 and report these results at the follow-up visit. Post procedure instruction was given as documented in the nursing documentation and having met discharge criteria. Patient was discharged from the [facility]. Based on the medial branches blocked today, if the patient has adequate relief and we are able to proceed to radiofrequency ablation, the treatment should result in the denervation of the bilateral T12-L1 and L1-L2 FACET JOINTS. We would expect to denervate a total of 4 facets during the radiofrequency ablation. COMMENTS: His post-procedure pain VAS was 0/10. Sergio Boucher DO, MPH [facility]-Pain Management [facility] CC: Alisa Ramirez
[2021-12-03 10:05] VITALS: BP 114/61; PULSE 94; RESP 16; O2SAT 96
== END 2021-12-03 08:57 | disposition home or self-care (01) ==
LOC: PC 08:56
PROVIDERS: PCP Family Medicine; Visit Provider Preventive Medicine Occupational Medicine
DX: M47.815 Spondylosis without myelopathy or radiculopathy, thoracolumbar region (principal); M54.50 Low back pain, unspecified
CPT/HCPCS: 64493; 64494; 72070; Q9967

== ENCOUNTER 2021-12-16 12:41 | Emergency (ER) | payer MEDICARE, OTHER, SELFPAY ==
[2021-12-16 12:46] VITALS: BP 148/88; PULSE 105; RESP 16; TEMP 36.7; O2SAT 98
--- NOTE | 2021-12-16 13:10 | W.ED.GENAD ---
Discharge Plan Disposition Patient Disposition: HOME Condition: Stable Discharge Details Clinical Impression: Constipation, Abdominal pain Primary Care Provider: Alisa Ramirez ED Provider: Hodan Garcia Home Meds and New Rx's Prescriptions: Continued bisacodyl [Dulcolax (bisacodyl)] 5 mg tablet,delayed release (DR/EC) 5 mg PO DAILY PRN metoprolol succinate 50 mg tablet extended release 24 hr 50 mg PO DAILY polyethylene glycol 3350 [Miralax] 17 GM powder in packet 17 g PO DAILY PRNQty: 255 nitroglycerin [Nitrostat] 0.4 MG tablet, sublingual 0.4 mg Sublingual as directed riboflavin (vitamin B2) [Vitamin B-2] 100 mg tablet 400 mg PO BID levothyroxine 50 MCG tablet 50 mcg PO DAILY@0730 allopurinol 300 MG tablet 300 mg PO DAILY quetiapine [Seroquel] 300 MG tablet 300 mg PO HS rosuvastatin [Crestor] 20 MG tablet 20 mg PO HS metformin [Glucophage] 1,000 mg Tablet 1,000 mg PO BID lisinopril 20 mg Tablet 30 mg PO DAILY topiramate 25 mg tablet 25 mg PO HS Label Comments: TAKE 1 TABLET BY MOUTH AT BEDTIME amlodipine 2.5 mg tablet 2.5 mg PO DAILY pantoprazole [Protonix] 40 mg tablet,delayed release (DR/EC) 40 mg PO DAILY Qty: 30 0RF Victoza 2-Thanh 0.6 mg/0.1 mL (18 mg/3 mL) pen injector 1.8 mg SUBCUT DAILY potassium chloride 10 mEq Capsule, Extended Release 10 meq PO DAILY No Action triamcinolone acetonide 0.1 % Ointment 1 applic TOPICAL BID finasteride 5 mg tablet 5 mg PO DAILY Qty: 90 4RF phenazopyridine 200 mg Tablet 200 mg PO TID PRN Rx Instructions: For 2 days carboxymethylcellulose sodium [Refresh Tears] 0.5 % Drops 1 - 2 drp OPHTHALMIC (EYE) QID PRN acetylcysteine [NAC] 600 mg capsule 600 mg PO BID cod liver oil Capsule 1 cap PO DAILY citalopram 20 mg tablet 10 mg PO DAILY diclofenac sodium [Voltaren] 1 % gel 1 applic topical DIRECTED Rx Instructions: apply to single elbow, wrist or hand; for hand includes palm/fingers/back of hand ranolazine [Ranexa] 500 mg tablet extended release 12 hr 500 mg PO BID methylprednisolone [Medrol (Thanh)] 4 mg tablets,dose pack 4 mg PO DAILY Qty: 21 0RF Levemir FlexTouch U-100 Insuln 100 UNIT/1 ML insulin pen 75 units subcut BID Rx Instructions: If blood sugar is frequently over 140 may go back to 80 units BID isosorbide mononitrate 60 mg tablet extended release 24 hr 60 mg PO DAILY Rx Instructions: TAKE ALONG WITH 30MG TAB FOR TOTAL DAILY DOSE OF 90MG lidocaine [Lidoderm] 1 PATCH patch 1 patch Topical Q24H Qty: 4 0RF methocarbamol 500 mg tablet 500 mg PO Q6H PRN (Reason: muscle spasm) Qty: 14 0RF docusate sodium [Colace] 100 mg Capsule 100 mg PO DAILY PRN topiramate 50 mg tablet 50 mg PO HS Label Comments: TAKE 1 TABLET BY MOUTH ONCE DAILY tramadol 50 mg tablet 50 mg PO Q6H PRN PRN (Reason: pain) gabapentin 300 mg capsule 300 mg PO BID Rx Instructions: FOR DIABETIC FOOT NEUROPATHY cholecalciferol (vitamin D3) [Vitamin D3] 1,000 unit Tablet 1,000 unit PO DAILY magnesium 200 mg Tablet 400 mg PO DAILY mupirocin 2 % Ointment 1 applic TOPICAL BID Discharge Instructions Instructions: Constipation (ED) Additional Instructions: There is no evidence for small bowel obstruction today. Review of his enema. If the enema is unsuccessful please straight cath and magnesium citrate here and half when you get home. Follow up with primary care provider in 3-5 days. Return to ED sooner if any worsening or concerns. Increase oral fluids. Referrals: Alisa Ramirez MD [Primary Care Provider] - 5 days Discharge Data Discharge Date/Time-TO BE ENTERED AT DEPARTURE: 12/16/21 16:46 Medical Decision Making 71-year-old male presents to the ER with chief complaint of right sided abdominal pain which began last night. He denies any nausea vomiting diarrhea, fever or chills. He does report that he has not had a bowel movement in the last week. He states that the pain is sharp and stabbing gets worse with movement or palpation. He does have somewhat large abdomen questionably distended. At this time CBC, CMP, lipase, urinalysis CT abdomen pelvis with oral contrast ordered. Differential diagnosis includes but not limited to bowel obstruction, constipation, cholecystitis, volvulus, CBC shows no leukocytosis, hemoglobin hematocrit at baseline slightly low, CMP largely within normal limits glucose is 156 lipase is 497, urinalysis shows no leukocytosis or nitrites no evidence of UTI. CT shows constipation no bowel obstruction. 1510: Soapsuds enema ordered. Enema was successful patient discharged home in hemodynamically stable condition. This text was generated using [employer] system, please disregard any oddities of phrase or misspellings. Medical Records Medical records reviewed: Yes I reviewed the patient's medical records. Imaging Data Radiologic Study: Imaging: CT Scan Radiologist's impression: COMPARISON: CT CT ABDOMEN PELVIS W from 01/04/2021 FINDINGS: ABDOMEN: Lung Bases: Coronary artery calcifications are present. Liver: Liver measures 22 cm long. No suspicious hepatic masses. Gallbladder and biliary tract: No radiodense calculus or biliary ductal dilation. The calcification in the anterior abdominal wall is unremarkable. Pancreas: Normal density, no abnormal calcifications or inflammatory process. Spleen: Normal. Kidneys: Normal size, contour and axis.No radiodense stones or obstructive uropathy. Stable right renal cyst. Adrenal glands: No mass is seen. Lymph nodes: Within normal limits. Abdominal Aorta: Abdominal portion non-dilated. Atherosclerosis is present. PELVIS: Bladder:Symmetric distention, no gross wall thickening. Bowel: No obstruction or bowel wall thickening. No evidence of appendicitis. There are few diverticula seen in the sigmoid colon but no evidence of acute diverticulitis. There is stool throughout the colon suggesting constipation. Peritoneal cavity: No ascites, collection or mesenteric inflammatory response. No free air. Reproductive organs: Unremarkable as visualized. Bones: Within normal limits. There is unchanged anterior wedging of the T12 vertebral body. Soft Tissues: Within normal limits. IMPRESSION: 1. No acute abdominal pelvic process. No evidence of bowel obstruction. 2. Stool throughout the colon which may represent constipation. 3. Otherwise stable CT abdomen and pelvis. 4. Results of this exam have been verbally communicated with provider. Lab Data Lab results reviewed: Yes I reviewed the patient's lab results. Labs: Laboratory Tests Range/Units 12/16/21 12/16/21 12/16/21 13:17 13:17 13:25 WBC (4.4-10.8) 10^3/uL 5.57 RBC (4.36-5.78) 10^6/uL 4.45 Hgb (13.5-17.5) g/dL 12.7 L Hct (40.0-50.0) % 37.5 L MCV (80-95) fL 84 MCH (27.0-33.0) pg 28.5 MCHC (32.0-36.0) % 33.9 RDW (11.8-14.1) % 14.6 H Plt Count (130-400) 10^3/uL 179 MPV (8.0-11.0) fL 8.8 Immature Gran % 0.4 Neutrophils % 64.1 Lymphocytes % 18.3 Monocytes % 9.9 Eosinophils % 5.9 Basophils % 1.4 Nucleated RBC % (0.0-0.3) % 0.0 Absolute Neutrophils (1.2-6.7) 10^3/uL 3.57 Absolute Lymphocytes (1.2-3.4) 10^3/uL 1.02 L Absolute Monocytes (0.1-0.8) 10^3/uL 0.55 Absolute Eosinophils (0.0-0.7) 10^3/uL 0.33 Absolute Basophils (0.0-0.2) 10^3/uL 0.08 Sodium (136-145) mmol/L 136 Potassium (3.5-5.1) mmol/L 3.9 Chloride (98-107) mmol/L 106 Carbon Dioxide (21.0-32.0) mmol/L 19.5 L Anion Gap (3-11) mmol/L 10.5 BUN (7-18) mg/dL 17 Creatinine (0.70-1.30) mg/dL 1.3 Estimated GFR/1.73 m2 (mL/min/1.73m2) 54.26 Glucose (74-106) mg/dL 156 H Calcium (8.5-10.1) mg/dL 8.8 Magnesium (1.8-2.4) mg/dL 2.1 Total Bilirubin (0.2-1.0) mg/dL 0.3 AST (15-37) U/L 20 ALT (16-63) U/L 21 Alkaline Phosphatase (46-116) U/L 68 Total Protein (6.4-8.2) g/dL 7.2 Albumin (3.4-5.0) g/dL 3.9 Lipase (73-393) U/L 497 H Urine Color (Yellow) Yellow Urine Clarity (Clear) Clear Urine pH (5-8) 6.0 Ur Specific [place] (1.005-1.025) 1.015 Urine Protein (Negative) mg/dL Negative Urine Ketones (Negative) mg/dL Negative Urine Blood (Negative) Negative Urine Nitrite (Negative) Negative Urine Bilirubin (Negative) Negative Urine Urobilinogen (Up TO 0.2) EU/dL 0.2 Ur Leukocyte Esterase (Negative) Negative Urine Glucose (Negative) mg/dL Negative HPI General Mode of arrival: ambulatory. Date/Time Provider Initiated Documentation: 12/16/21 12:43. Limitations to Documentation: no limitations. Information obtained by: patient, RN notes reviewed and old records reviewed. HPI Narrative: 71-year-old male presents to the ER with chief complaint of right sided abdominal pain which began last night. He denies any nausea vomiting diarrhea, fever or chills. He does report that he has not had a bowel movement in the last week. He states that the pain is sharp and stabbing gets worse with movement or palpation. He does have somewhat large abdomen questionably distended. Past medical history includes iron deficiency anemia type 2 diabetes, depression, GERD hyperlipidemia, hypertension, gout struct of sleep apnea, coronary artery disease, hypothyroidism, mild cognitive impairment, fatty liver, CABG, appendectomy and inguinal and umbilical hernia repair. He is also had a history of a brain surgery from a brain bleed. Related Data Home Medications Medication Instructions Recorded Confirmed allopurinol 300 mg tablet 300 mg PO DAILY 01/24/13 12/03/21 levothyroxine 50 mcg tablet 50 mcg PO DAILY@0730 01/24/13 12/03/21 quetiapine 300 mg tablet (Seroquel) 300 mg PO HS 01/24/13 12/03/21 rosuvastatin 20 mg tablet (Crestor) 20 mg PO HS 03/22/17 12/03/21 nitroglycerin 0.4 mg sublingual 0.4 mg sublingual as directed 04/08/17 12/03/21 tablet (Nitrostat) polyethylene glycol 3350 17 gram 17 g PO DAILY PRN #255 grams 04/08/17 12/03/21 oral powder packet (Miralax) insulin detemir U-100 100 unit/mL 75 units subcut BID 08/04/17 12/03/21 (3 mL) subcutaneous pen (Levemir FlexTouch U-100 Insulin) cholecalciferol (vitamin D3) 25 1,000 unit PO DAILY 11/11/18 09/15/21 mcg (1,000 unit) tablet (Vitamin D3) metformin 1,000 mg tablet 1,000 mg PO BID 03/08/19 12/03/21 (Glucophage) riboflavin (vitamin B2) 100 mg 400 mg PO BID 03/28/19 12/03/21 tablet (Vitamin B-2) bisacodyl 5 mg tablet,delayed 5 mg PO DAILY PRN 04/17/19 12/03/21 release (Dulcolax (bisacodyl)) cod liver oil 1 cap PO DAILY 04/17/19 12/03/21 pantoprazole 40 mg tablet,delayed 40 mg PO DAILY #30 tabs 04/25/19 12/03/21 release (Protonix) metoprolol succinate 50 mg 50 mg PO DAILY 05/10/19 12/03/21 tablet,extended release 24 hr acetylcysteine 600 mg capsule (NAC) 600 mg PO BID 05/16/19 12/03/21 citalopram 20 mg tablet 10 mg PO DAILY 05/16/19 12/03/21 lisinopril 20 mg tablet 30 mg PO DAILY 05/24/19 12/03/21 diclofenac sodium 1 % topical gel 1 applic topical DIRECTED 04/30/20 12/03/21 (Voltaren) ranolazine 500 mg tablet,extended 500 mg PO BID 04/30/20 12/03/21 release,12 hr (Ranexa) liraglutide 0.6 mg/0.1 mL (18 mg/3 1.8 mg subcut DAILY 06/19/20 12/03/21 mL) subcutaneous pen injector (Victoza 2-Thanh) isosorbide mononitrate 60 mg 60 mg PO DAILY 09/18/20 12/03/21 tablet,extended release 24 hr lidocaine 5 % topical patch 1 patch topical Q24H #4 ea 10/14/20 12/03/21 (Lidoderm) methocarbamol 500 mg tablet 500 mg PO Q6H PRN muscle spasm #14 11/07/20 12/03/21 tabs triamcinolone acetonide 0.1 % 1 applic topical BID 05/26/21 06/15/22 topical ointment docusate sodium 100 mg capsule 100 mg PO DAILY PRN 01/07/21 12/03/21 (Colace) topiramate 25 mg tablet 25 mg PO HS 01/09/21 12/03/21 topiramate 50 mg tablet 50 mg PO HS 01/09/21 12/03/21 gabapentin 300 mg capsule 300 mg PO BID 02/04/21 12/03/21 carboxymethylcellulose sodium 0.5 1 - 2 drp ophthalmic (eye) QID PRN 03/27/21 12/03/21 % eye drops (Refresh Tears) phenazopyridine 200 mg tablet 200 mg PO TID PRN 03/27/21 12/03/21 magnesium 200 mg tablet 400 mg PO DAILY 06/07/21 09/15/21 tramadol 50 mg tablet 50 mg PO Q6H PRN PRN pain 06/19/21 12/03/21 methylprednisolone 4 mg tablets in 4 mg PO DAILY Severe lumbosacral 08/13/21 09/15/21 a dose pack (AlpineReplayrol ([employer])) radiculopathy #21 dose pk amlodipine 2.5 mg tablet 2.5 mg PO DAILY 08/18/21 12/03/21 finasteride 5 mg tablet 5 mg PO DAILY #90 tabs 08/18/21 12/03/21 mupirocin 2 % topical ointment 1 applic topical BID 09/14/21 12/03/21 potassium chloride 10 mEq 10 meq PO DAILY 09/14/21 09/15/21 capsule,extended release Previous Rx's Medication Instructions Recorded pantoprazole 40 mg tablet,delayed 40 mg PO DAILY #30 tabs 04/25/19 release (Protonix) lidocaine 5 % topical patch 1 patch topical Q24H #4 ea 10/14/20 (Lidoderm) methocarbamol 500 mg tablet 500 mg PO Q6H PRN muscle spasm #14 11/07/20 tabs methylprednisolone 4 mg tablets in 4 mg PO DAILY Severe lumbosacral 08/13/21 a dose pack (Medrol (Thanh)) radiculopathy #21 dose pk finasteride 5 mg tablet 5 mg PO DAILY #90 tabs 08/18/21 Allergies Allergy/AdvReac Type Severity Reaction Status Date / Time amoxicillin Allergy Severe breathing Unverified 12/16/21 12:51 difficuty and vomiting Penicillins Allergy Intermediate Skin Rash Unverified 12/16/21 12:51 sulfamethoxazole Allergy Intermediate Skin Rash Unverified 12/16/21 12:51 [From Bactrim] trimethoprim [From Bactrim] Allergy Intermediate Skin Rash Unverified 12/16/21 12:51 oxycodone HCl [From Percocet] AdvReac Severe Contraindic Unverified 12/16/21 12:51 ated oxycodone terephthalate AdvReac Severe Contraindic Unverified 12/16/21 12:51 [From Percodan] ated General Stated Complaint: Abd Prob MADELIN: 3 Review of Systems All systems reviewed & are unremarkable except as noted in HPI and below Constitutional Constitutional: Denies chills, Denies fever(s), Denies headache(s) and Denies weakness ENT Ears, Nose, Mouth, and Throat: Denies headache(s) Cardiovascular Cardiovascular: Denies chest pain and Denies dyspnea Respiratory Respiratory: Denies cough, Denies hemoptysis and Denies dyspnea Gastrointestinal Gastrointestinal: Reports as per HPI, Reports abdominal pain, Reports constipation, Denies diarrhea, Denies nausea and Denies vomiting Neurologic Neurologic: Denies headache(s) and Denies weakness PFSH All Active Problems (Updated 12/16/21 @ 15:45 by Hodan Garcia NP) Constipation (Acute) Abdominal pain (Acute) Lumbar radiculopathy (Acute) Compression fracture of lumbar vertebra (Acute) Viral URI with cough (Acute) Chest pain (Acute) Unstable angina (Acute) UTI (urinary tract infection) (Acute) UTI (urinary tract infection) (Acute) Arthritis of right hip (Acute) Contusion of right hip (Acute) Left rib fracture (Acute) Rib pain on left side (Acute) Chest wall muscle strain (Acute) History of rib fracture (Acute) Head trauma (Acute) Discharge planning issues (Acute) DVT prophylaxis (Acute) Chronic subdural hematoma (Chronic) Chest pain (Acute) Pituitary abnormality (Acute) Neck pain (Acute) Hand weakness (Acute) Cubital tunnel syndrome on right (Acute) Lower urinary tract symptoms (Chronic) Lumbar radiculitis (Acute) Lumbosacral spondylosis without myelopathy (Acute) Chronic rhinitis (Chronic) Atypical chest pain (Acute) Musculoskeletal; Negative NPI 04/29/2018 Urethral stricture (Acute 08/20/15) Sensory hearing loss, bilateral (Chronic 04/09/14) Sensorineural hearing loss, asymmetrical (Chronic 05/12/13) Postnasal drip (Chronic 05/13/15) Mild cognitive impairment (Chronic 01/31/18) Hypertrophy of nasal turbinates (Chronic 08/05/15) 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) Deviated nasal septum (Chronic 08/05/15) Thoracic spondylosis without myelopathy (Chronic) Coronary artery disease (Chronic) Hyperlipidemia (Chronic) Diabetes mellitus type 2 in obese (Chronic) Medical History Anemia, iron deficiency Chronic low back pain Colon polyps Constipation, chronic Depression Diastasis recti DM type 2 (diabetes mellitus, type 2) Fatty liver GERD (gastroesophageal reflux disease) Gout H/O alcohol abuse Headaches due to 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 Hx of deep venous thrombosis Hx of traumatic brain injury Hyperlipidemia Hypertension Hypothyroidism Knee pain, right Migraine headache Mild dementia MRSA infection Obstructive sleep apnea Pain in joint of right foot Rathke's pouch cyst Recurrent UTI Rhinorrhea Right sided weakness Tinea pedis Urethral stricture Vitamin D deficiency Volvulus of cecum Surgical History Appendectomy (06/01/16) Colonoscopy - MAC 2009-5year f/u 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 electroconvulsive therapy Extraction of cataract facial lesion removal Repair of inguinal hernia (08/05/17) right inguinal hernia repair by Dr Arroyo on 08/05/17 Repair of umbilical hernia Social History Smoking/Tobacco Use Status: Never Smoking risk assessment performed?: Yes Alcohol Intake: former Drug use: Never Substance use type: does not use Household members: spouse Housing: house Pets and animals: Yes Pets and animals: dog(s) Do you feel safe at home: Yes Do you feel safe in your relationship?: Yes Exam Narrative Exam Narrative: Constitutional: Alert and oriented x3. Appears stated age. Normal body habitus. Head: Normocephalic, no trauma. Eyes: Pupils PERRL, Red reflex noted, EOM's intact. Eyelids symmetrical without lesions, discharge, or swelling. ENT: Bilateral TM's WNL, External ear normal to inspection, no mastoid TTP, swelling, or erythema, Nasal turbinates WNL, no nasal discharge. Normal dentition, Posterior pharynx WNL, no exudate. Chest: RRR, Normal S1, S2, distal pulses intact. Resp: Lungs clear to auscultation bilaterally, no wheezes, rales, or rhonchi. Abdomen: Soft, appears moderately distended, tinkling bowel sounds all 4 quads. Musculoskeletal: Normal gait, 5/5 strength to all four extremities. Skin: No suspicious rashes or lesions. Capillary refill less than 2 sec. Neurologic: Cranial nerves II-XII intact. Alert and oriented x 3. Motor: No deficits noted. Sensory: Intact bilaterally all 4 extremities. Hematologic/Lymphatic: No ecchymosis, no lymphadenopathy. Course Vital Signs Vital signs: Vital Signs Temperature 36.7 C 12/16/21 12:46 Pulse 105 H 12/16/21 12:46 Respiratory Rate 16 12/16/21 12:46 Blood Pressure 148/88 H 12/16/21 12:46 Pulse Oximetry 98 12/16/21 12:46 Temperature 36.7 C 12/16/21 12:46 Temperature Source Temporal Artery Scan 12/16/21 12:46 Pulse 105 H 12/16/21 12:46 Respiratory Rate 16 12/16/21 12:46 Respiratory Effort Non-Labored 12/16/21 12:52 Blood Pressure 148/88 H 12/16/21 12:46 Blood Pressure Position Sitting 12/16/21 12:46 Pulse Oximetry 98 12/16/21 12:46 Oxygen Delivery Method Room Air 12/16/21 12:46 Oxygen Flow Rate 0 12/16/21 12:46 Pain Level 8 12/16/21 12:46
[2021-12-16 13:23] LABS: Abs Immature Grans 0.02 10^3/uL (0.0-0.06); Absolute Basophil Count 0.08 10^3/uL (0.0-0.2); Absolute Eosinophil Count 0.33 10^3/uL (0.0-0.7); Absolute Lymphocyte Count 1.02 10^3/uL (1.2-3.4); Absolute Monocyte Count 0.55 10^3/uL (0.1-0.8); Absolute Neutrophil Count 3.57 10^3/uL (1.2-6.7); Basophils % 1.4; Eosinophils % 5.9; HCT 37.5 % (40.0-50.0); HGB 12.7 g/dL (13.5-17.5); Immature Grans % 0.4; Lymphocytes % 18.3; MCH 28.5 pg (27.0-33.0); MCHC 33.9 % (32.0-36.0); MCV 84 fL (80-95); MPV 8.8 fL (8.0-11.0); Monocytes % 9.9; Neutrophils % 64.1; Platelet Count 179 10^3/uL (130-400); RBC 4.45 10^6/uL (4.36-5.78); RDW 14.6 % (11.8-14.1); RDW-SD 44.4 fL; WBC 5.57 10^3/uL (4.4-10.8)
[2021-12-16 13:32] LABS: Bilirubin Negative (Negative); Blood Negative (Negative); Clarity Clear (Clear); Glucose Negative (Negative); Ketones Negative (Negative); Leukocyte Esterase Negative (Negative); Nitrite Negative (Negative); Specific Gravity 1.015 (1.005-1.025); Urobilinogen 0.2 EU/dL (Up TO 0.2)
[2021-12-16 13:43] LABS: ALT 21 U/L (16-63); AST 20 U/L (15-37); Albumin 3.9 g/dL (3.4-5.0); Alkaline Phosphatase 68 U/L (46-116); Anion Gap 10.5 mmol/L (3-11); BUN 17 mg/dL (7-18); Bilirubin, Total 0.3 mg/dL (0.2-1.0); CO2 19.5 mmol/L (21.0-32.0); CREATININE 1.3 mg/dL (0.70-1.30); Calcium 8.8 mg/dL (8.5-10.1); Chloride 106 mmol/L (98-107); Estimated GFR 54.26 (mL/min/1.73m2); Glucose 156 mg/dL (74-106); Lipase 497 U/L (73-393); Magnesium 2.1 mg/dL (1.8-2.4); Potassium 3.9 mmol/L (3.5-5.1); Sodium 136 mmol/L (136-145); Total Protein 7.2 g/dL (6.4-8.2)
[2021-12-16] MEDS: fentaNYL 100 MCG/2 ML VIAL 25 MCG IVP (14:21)
[2021-12-16] MEDS: Normal Saline 500 ML IV (14:21)
--- NOTE | 2021-12-16 14:47 | DI.CT_ITS ---
Exam(s) CT ABDOMEN PELVIS WO EXAM: CT ABDOMEN PELVIS WO CLINICAL HISTORY: RLQ, RUQ abd Pain, Constipation, R/O SBO, Cristy. TECHNIQUE: Imaging Protocol: Axial computed tomography images with coronal and sagittal reformatted images were created and reviewed. COMPARISON: CT CT ABDOMEN PELVIS W from 01/04/2021 FINDINGS: ABDOMEN: Lung Bases: Coronary artery calcifications are present. Liver: Liver measures 22 cm long. No suspicious hepatic masses. Gallbladder and biliary tract: No radiodense calculus or biliary ductal dilation. The calcification i n the anterior abdominal wall is unremarkable. Pancreas: Normal density, no abnormal calcifications or inflammatory process. Spleen: Normal. Kidneys: Normal size, contour and axis.No radiodense stones or obstructive uropathy. Stable right nahum al cyst. Adrenal glands: No mass is seen. Lymph nodes: Within normal limits. Abdominal Aorta: Abdominal portion non-dilated. Atherosclerosis is present. PELVIS: Bladder:Symmetric distention, no gross wall thickening. Bowel: No obstruction or bowel wall thickening. No evidence of appendicitis. There are few diverticu la seen in the sigmoid colon but no evidence of acute diverticulitis. There is stool throughout the colon suggesting constipation. Peritoneal cavity: No ascites, collection or mesenteric inflammatory response. No free air. Reproductive organs: Unremarkable as visualized. Bones: Within normal limits. There is unchanged anterior wedging of the T12 vertebral body. Soft Tissues: Within normal limits. IMPRESSION: 1. No acute abdominal pelvic process. No evidence of bowel obstruction. 2. Stool throughout the colon which may represent constipation. 3. Otherwise stable CT abdomen and pelvis. 4. Results of this exam have been verbally communicated with provider. RADIATION DOSE DELIVERED: 1,109.98mGy.cm Total DLP DATA REPOSITORY: All CT scans at this facility are submitted to the National Radiology Data Registry (NRDR) Dose Index Registry (DIR) with the [employer] (A[employer]). RADIATION OPTIMIZATION: All CT scans at this facility use at least one of these dose optimization te chniques: automated exposure control; mA and/or kV adjustment per patient size (includes targeted exa ms where dose is matched to clinical indication); or iterative reconstruction.
== END 2021-12-16 16:46 | disposition home or self-care (01) ==
PROVIDERS: Emergency Provider Registered Nurse Emergency; PCP Family Medicine
DX: K59.00 Constipation, unspecified (principal); R10.11 Right upper quadrant pain
CPT/HCPCS: 36415; 80053; 83690; 96361; 96374; 99284; 74176; 81003; 83735; 85025; J3010

== ENCOUNTER 2021-12-31 09:54 | Outpatient (CLI) | payer MEDICARE, OTHER, SELFPAY ==
--- NOTE | 2021-12-31 06:00 | DI.RAD_ITS ---
Exam(s) XR PAIN CLINIC LUMBAR SP 2V EXAM: XR PAIN CLINIC LUMBAR SP 2V CLINICAL HISTORY: Dx: Lumbar Spondylosis TECHNIQUE: 2D and realtime digital imaging was performed. Radiologist not present. CONTRAST MATERIAL: None. COMPARISON: No exams were available for comparison FINDINGS: Fluoroscopy was provided for pain management therapy. Please refer to procedure report or details. Cumulative dose: Ka,r=31.96 mGy IMPRESSION: RADIATION DOSE DELIVERED:
[2021-12-31 10:07] VITALS: BP 127/77; PULSE 78; RESP 20; TEMP 36.6; O2SAT 97
[2021-12-31] MEDS: Midazolam 2 MG/2 ML VIAL IVP (10:47)
[2021-12-31] MEDS: fentaNYL 100 MCG/2 ML VIAL IVP (10:47)
[2021-12-31] MEDS: Lactated Ringers 500 ML 80 ML IV (11:17)
[2021-12-31 11:19] VITALS: BP 135/87; PULSE 98; RESP 16; O2SAT 98
--- NOTE | 2021-12-31 11:23 | PDOC.PAIN ---
Pain Clinic Procedure Note Procedure Note Procedure Note: Bilateral Thoracolumbar Radiofrequency with Coolief Machine PROCEDURE NOTE Date of Service: December 31, 2021 Patient: Fredo Osman Provider: Sergio Boucher DO, MPH Pre Operative Diagnosis: Thoracolumbar without Myelopathy Post Operative Diagnosis: Same Pre procedure pain; VAS= 8/10 PROCEDURE: Radiofrequency Ablation of medial branches - Bilateral T11, T12, and L1. Fredo Osman was brought into the fluoroscopy suite and positioned into the prone position on the fluoroscopy table and allowed to adjust to a position of comfort. A grounding pad was placed on the [right/left] thigh. The lumbar region was widely prepped with a chloraprep solution, allowed to air dry and draped in standard sterile surgical fashion. Local anesthesia was provided by 2 mL of 2% Lidocaine delivered with a 25g needle. A 17g 100 mm radiofrequency introducer needle was placed to the planned anatomic targets guided with intermittent fluoroscopy with a perpendicular approach to terminally place at the junction of the superior articular process and the transverse process of the bilateral T12 L1, L2. The stylets were removed and radiofrequency probes with a 4mm active tip were then inserted. Needle tip position of the probes was verified in the AP, oblique, and lateral views. At each site, the medial branch nerve was stimulated at 2 Hz to a maximum 1-2 volts determined to finalize safe needle and electrode placement. The patient was awake and responsive during this portion of the procedure. Each target was anesthetized with 1-2 mL of 2% Lidocaine for anesthesia for lesioning and then each target was lesioned at 80 degrees Celsius for 2 minutes and 30 seconds. Tissue impedences were noted to be between 250 and 500 Ohms. Electrodes and needles were then removed and bandages placed over the needle placement sites, the patient then returned to the supine position on a stretcher and transported to the recovery room without hemodynamic, neurologic, or allergic reactions. Fluoroscopic images were printed for hard copy recording and digitally archived. POST PROCEDURE EVALUATION: IMPRESSION: 1. Summary of procedure. Medication given is documented in the MAR. 2. The patient will be contacted in 1-3 weeks 3. Estimated Blood Loss: <5 mls 4. Fluoroscopy time: Documented in the EMR. Follow up plans and appointments were discussed with the Fredo . Post procedure instruction was given as documented in nursing documentation and having met discharge criteria, [facility]o was [facility] from [facility]. COMMENTS: No apparent complications. Post-procedure pain: VAS= 2/10. F/U with our office as needed. I personally performed this entire procedure. Sergio Boucher DO, MPH Attending Physician Pain Management
[2021-12-31] MEDS: Bupivacaine 0.5% Pres-Free 30 ML VIAL IJ (11:30)
[2021-12-31] MEDS: Lidocaine 2% Multi-Dose 20 ML VIAL IJ (11:30)
[2021-12-31] MEDS: methylPREDNISolone ACETATE 40 MG/ML VIAL IJ (11:31)
== END 2021-12-31 09:55 | disposition home or self-care (01) ==
PROVIDERS: PCP Family Medicine; Visit Provider Preventive Medicine Occupational Medicine
DX: M47.815 Spondylosis without myelopathy or radiculopathy, thoracolumbar region (principal)
CPT/HCPCS: 64635; 64636; 72100; J1030; J2250; J3010; J3490

== ENCOUNTER 2022-01-10 07:17 | Emergency (ER) | payer MEDICARE, OTHER, SELFPAY ==
--- NOTE | 2022-01-10 07:15 | DI.RAD_ITS ---
Exam(s) XR FOOT RT COMPLETE EXAM: XR FOOT RT COMPLETE CLINICAL HISTORY: pain at great toe and midfoot, unknown trauma. TECHNIQUE: 2D digital imaging was performed of the right foot. Three images were obtained. AP, obl ique and lateral views were obtained. COMPARISON: CR RIGHT FOOT COMPLETE from 10/14/2011 FINDINGS: BONES: No acute fracture is present. No bony destructive lesion is seen. JOINTS: No dislocation present. SOFT TISSUE: Normal. IMPRESSION: Unremarkable radiographs of the right foot. DATA REPOSITORY: RADIATION DOSE DELIVERED:
[2022-01-10 07:21] VITALS: BP 143/68; PULSE 72; RESP 20; TEMP 36.7; O2SAT 98
--- NOTE | 2022-01-10 07:27 | ED.GENADUL_ITS ---
Discharge Plan Disposition Patient Disposition: STILL A PATIENT Condition: Good Discharge Details Chief Complaint: Orthopedic Clinical Impression: Gout, Acute pain of right foot Primary Care Provider: Alisa Ramirez ED Provider: Christopher Lua Home Meds and New Rx's Prescriptions: No Action triamcinolone acetonide 0.1 % Ointment 1 applic TOPICAL BID finasteride 5 mg tablet 5 mg PO DAILY Qty: 90 4RF phenazopyridine 200 mg Tablet 200 mg PO TID PRN Rx Instructions: For 2 days carboxymethylcellulose sodium [Refresh Tears] 0.5 % Drops 1 - 2 drp OPHTHALMIC (EYE) QID PRN acetylcysteine [NAC] 600 mg capsule 600 mg PO BID cod liver oil Capsule 1 cap PO DAILY bisacodyl [Dulcolax (bisacodyl)] 5 mg tablet,delayed release (DR/EC) 5 mg PO DAILY PRN metoprolol succinate 50 mg tablet extended release 24 hr 50 mg PO DAILY citalopram 20 mg tablet 10 mg PO DAILY diclofenac sodium [Voltaren] 1 % gel 1 applic topical DIRECTED Rx Instructions: apply to single elbow, wrist or hand; for hand includes palm/fingers/back of hand ranolazine [Ranexa] 500 mg tablet extended release 12 hr 500 mg PO BID methylprednisolone [Medrol (Thanh)] 4 mg tablets,dose pack 4 mg PO DAILY Qty: 21 0RF polyethylene glycol 3350 [Miralax] 17 GM powder in packet 17 g PO DAILY PRNQty: 255 nitroglycerin [Nitrostat] 0.4 MG tablet, sublingual 0.4 mg Sublingual as directed Levemir FlexTouch U-100 Insuln 100 UNIT/1 ML insulin pen 75 units subcut BID Rx Instructions: If blood sugar is frequently over 140 may go back to 80 units BID riboflavin (vitamin B2) [Vitamin B-2] 100 mg tablet 400 mg PO BID levothyroxine 50 MCG tablet 50 mcg PO DAILY@0730 allopurinol 300 MG tablet 300 mg PO DAILY quetiapine [Seroquel] 300 MG tablet 300 mg PO HS rosuvastatin [Crestor] 20 MG tablet 20 mg PO HS metformin [Glucophage] 1,000 mg Tablet 1,000 mg PO BID lisinopril 20 mg Tablet 30 mg PO DAILY isosorbide mononitrate 60 mg tablet extended release 24 hr 60 mg PO DAILY Rx Instructions: TAKE ALONG WITH 30MG TAB FOR TOTAL DAILY DOSE OF 90MG lidocaine [Lidoderm] 1 PATCH patch 1 patch Topical Q24H Qty: 4 0RF methocarbamol 500 mg tablet 500 mg PO Q6H PRN (Reason: muscle spasm) Qty: 14 0RF docusate sodium [Colace] 100 mg Capsule 100 mg PO DAILY PRN topiramate 25 mg tablet 25 mg PO HS Label Comments: TAKE 1 TABLET BY MOUTH AT BEDTIME topiramate 50 mg tablet 50 mg PO HS Label Comments: TAKE 1 TABLET BY MOUTH ONCE DAILY tramadol 50 mg tablet 50 mg PO Q6H PRN PRN (Reason: pain) amlodipine 2.5 mg tablet 2.5 mg PO DAILY gabapentin 300 mg capsule 300 mg PO BID Rx Instructions: FOR DIABETIC FOOT NEUROPATHY cholecalciferol (vitamin D3) [Vitamin D3] 1,000 unit Tablet 1,000 unit PO DAILY pantoprazole [Protonix] 40 mg tablet,delayed release (DR/EC) 40 mg PO DAILY Qty: 30 0RF Victoza 2-Thanh 0.6 mg/0.1 mL (18 mg/3 mL) pen injector 1.8 mg SUBCUT DAILY magnesium 200 mg Tablet 400 mg PO DAILY mupirocin 2 % Ointment 1 applic TOPICAL BID potassium chloride 10 mEq Capsule, Extended Release 10 meq PO DAILY Medical Decision Making This is a 71-year-old male with past medical history of type 2 diabetes, depression, GERD, gout, previous DVT, high cholesterol, CABG, who presents today for right foot pain. Patient states that the pain has been present for the last few days. He denies any injury. He describes it as achy, worse with moving his foot. He denies numbness or tingling. He denies any trauma to the foot. He denies any fever or chills. He is able to bear weight but has some pain with it. No other complaints at this time. Physical exam demonstrates a normal-appearing foot, no significant abnormalities. No signs of cellulitis, or significant trauma. We will get x- rays. Differential is highest for gout or arthritis. Will apply Bengay and give Tylenol. HPI General Date/Time Provider Initiated Documentation: 01/10/22 07:19 . HPI Narrative: This is a 71-year-old male with past medical history of type 2 diabetes, depression, GERD, gout, previous DVT, high cholesterol, CABG, who presents today for right foot pain. Patient states that the pain has been present for the last few days. He denies any injury. He describes it as achy, worse with moving his foot. He denies numbness or tingling. He denies any trauma to the foot. He denies any fever or chills. He is able to bear weight but has some pain with it. No other complaints at this time. Related Data Home Medications Medication Instructions Recorded Confirmed allopurinol 300 mg tablet 300 mg PO DAILY 01/24/13 01/10/22 levothyroxine 50 mcg tablet 50 mcg PO DAILY@0730 01/24/13 01/10/22 quetiapine 300 mg tablet (Seroquel) 300 mg PO HS 01/24/13 01/10/22 rosuvastatin 20 mg tablet (Crestor) 20 mg PO HS 03/22/17 01/10/22 nitroglycerin 0.4 mg sublingual 0.4 mg sublingual as directed 04/08/17 01/10/22 tablet (Nitrostat) polyethylene glycol 3350 17 gram 17 g PO DAILY PRN #255 grams 04/08/17 01/10/22 oral powder packet (Miralax) insulin detemir U-100 100 unit/mL 75 units subcut BID 08/04/17 01/10/22 (3 mL) subcutaneous pen (Levemir FlexTouch U-100 Insulin) cholecalciferol (vitamin D3) 25 1,000 unit PO DAILY 11/11/18 01/10/22 mcg (1,000 unit) tablet (Vitamin D3) metformin 1,000 mg tablet 1,000 mg PO BID 03/08/19 01/10/22 (Glucophage) riboflavin (vitamin B2) 100 mg 400 mg PO BID 03/28/19 01/10/22 tablet (Vitamin B-2) bisacodyl 5 mg tablet,delayed 5 mg PO DAILY PRN 04/17/19 01/10/22 release (Dulcolax (bisacodyl)) cod liver oil 1 cap PO DAILY 04/17/19 01/10/22 pantoprazole 40 mg tablet,delayed 40 mg PO DAILY #30 tabs 04/25/19 01/10/22 release (Protonix) metoprolol succinate 50 mg 50 mg PO DAILY 05/10/19 01/10/22 tablet,extended release 24 hr acetylcysteine 600 mg capsule (NAC) 600 mg PO BID 05/16/19 01/10/22 citalopram 20 mg tablet 10 mg PO DAILY 05/16/19 01/10/22 lisinopril 20 mg tablet 30 mg PO DAILY 05/24/19 01/10/22 diclofenac sodium 1 % topical gel 1 applic topical DIRECTED 04/30/20 01/10/22 (Voltaren) ranolazine 500 mg tablet,extended 500 mg PO BID 04/30/20 01/10/22 release,12 hr (Ranexa) liraglutide 0.6 mg/0.1 mL (18 mg/3 1.8 mg subcut DAILY 06/19/20 01/10/22 mL) subcutaneous pen injector (Kitchenbug 2-Thanh) isosorbide mononitrate 60 mg 60 mg PO DAILY 09/18/20 01/10/22 tablet,extended release 24 hr lidocaine 5 % topical patch 1 patch topical Q24H #4 ea 10/14/20 01/10/22 (Lidoderm) methocarbamol 500 mg tablet 500 mg PO Q6H PRN muscle spasm #14 11/07/20 01/10/22 tabs triamcinolone acetonide 0.1 % 1 applic topical BID 11/13/20 01/10/22 topical ointment docusate sodium 100 mg capsule 100 mg PO DAILY PRN 01/07/21 01/10/22 (Colace) topiramate 25 mg tablet 25 mg PO HS 01/09/21 01/10/22 topiramate 50 mg tablet 50 mg PO HS 01/09/21 01/10/22 gabapentin 300 mg capsule 300 mg PO BID 02/04/21 01/10/22 carboxymethylcellulose sodium 0.5 1 - 2 drp ophthalmic (eye) QID PRN 03/27/21 01/10/22 % eye drops (Refresh Tears) phenazopyridine 200 mg tablet 200 mg PO TID PRN 03/27/21 01/10/22 magnesium 200 mg tablet 400 mg PO DAILY 06/07/21 01/10/22 tramadol 50 mg tablet 50 mg PO Q6H PRN PRN pain 06/19/21 01/10/22 methylprednisolone 4 mg tablets in 4 mg PO DAILY Severe lumbosacral 08/13/21 01/10/22 a dose pack (Medrol (Thanh)) radiculopathy #21 dose pk amlodipine 2.5 mg tablet 2.5 mg PO DAILY 08/18/21 01/10/22 finasteride 5 mg tablet 5 mg PO DAILY #90 tabs 08/18/21 01/10/22 mupirocin 2 % topical ointment 1 applic topical BID 09/14/21 01/10/22 potassium chloride 10 mEq 10 meq PO DAILY 09/14/21 01/10/22 capsule,extended release Previous Rx's Medication Instructions Recorded pantoprazole 40 mg tablet,delayed 40 mg PO DAILY #30 tabs 04/25/19 release (Protonix) lidocaine 5 % topical patch 1 patch topical Q24H #4 ea 10/14/20 (Lidoderm) methocarbamol 500 mg tablet 500 mg PO Q6H PRN muscle spasm #14 11/07/20 tabs methylprednisolone 4 mg tablets in 4 mg PO DAILY Severe lumbosacral 08/13/21 a dose pack (Medrol (Thanh)) radiculopathy #21 dose pk finasteride 5 mg tablet 5 mg PO DAILY #90 tabs 08/18/21 Allergies Allergy/AdvReac Type Severity Reaction Status Date / Time amoxicillin Allergy Severe breathing Unverified 01/10/22 07:25 difficuty and vomiting Penicillins Allergy Intermediate Skin Rash Unverified 01/10/22 07:25 sulfamethoxazole Allergy Intermediate Skin Rash Unverified 01/10/22 07:25 [From Bactrim] trimethoprim [From Bactrim] Allergy Intermediate Skin Rash Unverified 01/10/22 07:25 oxycodone HCl [From Percocet] AdvReac Severe Contraindic Unverified 01/10/22 07: 25 ated oxycodone terephthalate AdvReac Severe Contraindic Unverified 01/10/22 07:25 [From Percodan] ated General Stated Complaint: Orthopedic MADELIN: 4 Review of Systems All systems reviewed & are unremarkable except as noted in HPI and below PFSH All Active Problems (Updated 01/10/22 @ 07:56 by Christopher Lua DO) Constipation (Acute) Abdominal pain (Acute) Gout (Chronic) Acute pain of right foot (Acute) Lumbar radiculopathy (Acute) Compression fracture of lumbar vertebra (Acute) Viral URI with cough (Acute) Chest pain (Acute) Unstable angina (Acute) UTI (urinary tract infection) (Acute) UTI (urinary tract infection) (Acute) Arthritis of right hip (Acute) Contusion of right hip (Acute) Left rib fracture (Acute) Rib pain on left side (Acute) Chest wall muscle strain (Acute) History of rib fracture (Acute) Head trauma (Acute) Discharge planning issues (Acute) DVT prophylaxis (Acute) Chronic subdural hematoma (Chronic) Chest pain (Acute) Pituitary abnormality (Acute) Neck pain (Acute) Hand weakness (Acute) Cubital tunnel syndrome on right (Acute) Lower urinary tract symptoms (Chronic) Lumbar radiculitis (Acute) Lumbosacral spondylosis without myelopathy (Acute) Chronic rhinitis (Chronic) Atypical chest pain (Acute) Musculoskeletal; Negative NPI 04/29/2018 Urethral stricture (Acute 08/20/15) Sensory hearing loss, bilateral (Chronic 04/09/14) Sensorineural hearing loss, asymmetrical (Chronic 05/12/13) Postnasal drip (Chronic 05/13/15) Mild cognitive impairment (Chronic 01/31/18) Hypertrophy of nasal turbinates (Chronic 08/05/15) 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) Deviated nasal septum (Chronic 08/05/15) Thoracic spondylosis without myelopathy (Chronic) Coronary artery disease (Chronic) Hyperlipidemia (Chronic) Diabetes mellitus type 2 in obese (Chronic) Medical History Anemia, iron deficiency Chronic low back pain Colon polyps Constipation, chronic Depression Diastasis recti DM type 2 (diabetes mellitus, type 2) Fatty liver GERD (gastroesophageal reflux disease) Gout H/O alcohol abuse Headaches due to 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 Hx of deep venous thrombosis Hx of traumatic brain injury Hyperlipidemia Hypertension Hypothyroidism Knee pain, right Migraine headache Mild dementia MRSA infection Obstructive sleep apnea Pain in joint of right foot Rathke's pouch cyst Recurrent UTI Rhinorrhea Right sided weakness Tinea pedis Urethral stricture Vitamin D deficiency Volvulus of cecum Surgical History Appendectomy (06/01/16) Colonoscopy - MAC 2009-5year f/u 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 electroconvulsive therapy Extraction of cataract facial lesion removal Repair of inguinal hernia (08/05/17) right inguinal hernia repair by Dr Arroyo on 08/05/17 Repair of umbilical hernia Social History Smoking/Tobacco Use Status: Never Smoking risk assessment performed?: Yes Alcohol Intake: former Drug use: Never Substance use type: does not use Household members: spouse Housing: house Pets and animals: Yes Pets and animals: dog(s) Do you feel safe at home: Yes Do you feel safe in your relationship?: Yes Exam Narrative Exam Narrative: 1.Const: Well-nourished, Well-developed, appearing stated age 2.Eyes: PERRL, no conjunctival injection, and symmetrical lids. 3.ENT: Atraumatic external nose and ears. Moist MM. Neck: Symmetric, trachea midline, No thyromegaly. 4.CVS: +S1/S2, No murmurs or gallops. Peripheral pulses 2+ and equal in all extremities. Brisk capillary refill in all extremities. 5.RESP: Unlabored respiratory effort. Clear to auscultation bilaterally. No wheezes rales or rhonchi 6.GI: Soft, Nontender/Nondistended, No hepatosplenomegaly. No guarding or rebound. 7.MSK: Normocephalic/Atraumatic, Extremities w/o deformity or ttp No cyanosis or clubbing, Normal movement of all extremities. Right foot demonstrates no evident redness, edema, swelling, or injury. Patient demonstrates good flexion and extension of the toes and good plantar and dorsiflexion of the foot. No lesions. 8.Skin: Warm, Dry. No rashes or lesions. 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 Sensation grossly intact, no focal ne urologic deficits. 10.Psych: (AAO) x3. Appropriate mood and affect Course Vital Signs Vital signs: Vital Signs Temperature 36.7 C 01/10/22 07:21 Pulse 72 01/10/22 07:21 Respiratory Rate 20 01/10/22 07:21 Blood Pressure 143/68 H 01/10/22 07:21 Pulse Oximetry 98 01/10/22 07:21 Temperature 36.7 C 01/10/22 07:21 Temperature Source Temporal Artery Scan 01/10/22 07:21 Pulse 72 01/10/22 07:21 Respiratory Rate 20 01/10/22 07:21 Respiratory Effort 01/10/22 07:25 Blood Pressure 143/68 H 01/10/22 07:21 Blood Pressure Position Supine 01/10/22 07:21 Pulse Oximetry 98 01/10/22 07:21 Oxygen Delivery Method Room Air 01/10/22 07:21 Oxygen Flow Rate 0 01/10/22 07:21 Pain Level 10 01/10/22 07:26 Sign Out Sign Out Data: Sign Out Comment: Foot pain, suspect gout or arthritis, follow-up on imaging Last updated by Christopher Lua DO at 01/10/22 07:53
[2022-01-10] MEDS: Diclofenac 1% Gel 100 GM TUBE TP (07:28)
[2022-01-10] MEDS: Acetaminophen 500 MG TAB 1000 MG PO (07:28)
--- NOTE | 2022-01-10 09:07 | DI.VRAD_ITS ---
PROCEDURE INFORMATION: Exam: XR Right Foot Exam date and time: 01/10/2022 7:36 AM Age: 71 years old Clinical indication: Pain; Foot; Right TECHNIQUE: Imaging protocol: Radiologic exam of the Right foot. Views: 3 or more views. COMPARISON: CT LOWER EXTREMITY RT WO 09/18/2020 1:39 PM FINDINGS: Bones/joints: No acute fracture. No dislocation. Soft tissues: Normal. IMPRESSION: No acute findings. Dictated and Authenticated by: Neyda Helm MD. Ordering:CHRISTINE White MD
--- NOTE | 2022-01-10 09:13 | ED.PROG_ITS ---
Date of service: 01/10/22 Time of Service: 09:13 Medical Decision Making Resting comfortably no acute distress. Subjective pain at base of first toe as well as dorsum of foot, no erythema induration or warmth appreciated. Patient has a strong DP pulse good sensation motor function. Is diabetic on insulin, is also on gabapentin. Consider neuropathic pain versus early gout. Low suspicion for septic arthritis, no evidence of fracture or dislocation. Will give a dose of IM dexamethasone. Counseled patient to watch his blood sugar over the next couple of days and to follow-up with primary care doctor. Sign Out Sign Out Data: Sign Out Comment: Foot pain, suspect gout or arthritis, follow-up on imaging Last updated by Christopher Lua DO at 01/10/22 07:53 Discharge Plan Disposition Patient Disposition: HOME Condition: Good Discharge Details Clinical Impression: Acute pain of right foot Primary Care Provider: Alisa Ramirez ED Provider: Fredo Salazar Home Meds and New Rx's Prescriptions: No Action triamcinolone acetonide 0.1 % Ointment 1 applic TOPICAL BID finasteride 5 mg tablet 5 mg PO DAILY Qty: 90 4RF phenazopyridine 200 mg Tablet 200 mg PO TID PRN Rx Instructions: For 2 days carboxymethylcellulose sodium [Refresh Tears] 0.5 % Drops 1 - 2 drp OPHTHALMIC (EYE) QID PRN acetylcysteine [NAC] 600 mg capsule 600 mg PO BID cod liver oil Capsule 1 cap PO DAILY bisacodyl [Dulcolax (bisacodyl)] 5 mg tablet,delayed release (DR/EC) 5 mg PO DAILY PRN metoprolol succinate 50 mg tablet extended release 24 hr 50 mg PO DAILY citalopram 20 mg tablet 10 mg PO DAILY diclofenac sodium [Voltaren] 1 % gel 1 applic topical DIRECTED Rx Instructions: apply to single elbow, wrist or hand; for hand includes palm/fingers/back of hand ranolazine [Ranexa] 500 mg tablet extended release 12 hr 500 mg PO BID methylprednisolone [Medrol (Thanh)] 4 mg tablets,dose pack 4 mg PO DAILY Qty: 21 0RF polyethylene glycol 3350 [Miralax] 17 GM powder in packet 17 g PO DAILY PRNQty: 255 nitroglycerin [Nitrostat] 0.4 MG tablet, sublingual 0.4 mg Sublingual as directed Levemir FlexTouch U-100 Insuln 100 UNIT/1 ML insulin pen 75 units subcut BID Rx Instructions: If blood sugar is frequently over 140 may go back to 80 units BID riboflavin (vitamin B2) [Vitamin B-2] 100 mg tablet 400 mg PO BID levothyroxine 50 MCG tablet 50 mcg PO DAILY@0730 allopurinol 300 MG tablet 300 mg PO DAILY quetiapine [Seroquel] 300 MG tablet 300 mg PO HS rosuvastatin [Crestor] 20 MG tablet 20 mg PO HS metformin [Glucophage] 1,000 mg Tablet 1,000 mg PO BID lisinopril 20 mg Tablet 30 mg PO DAILY isosorbide mononitrate 60 mg tablet extended release 24 hr 60 mg PO DAILY Rx Instructions: TAKE ALONG WITH 30MG TAB FOR TOTAL DAILY DOSE OF 90MG lidocaine [Lidoderm] 1 PATCH patch 1 patch Topical Q24H Qty: 4 0RF methocarbamol 500 mg tablet 500 mg PO Q6H PRN (Reason: muscle spasm) Qty: 14 0RF docusate sodium [Colace] 100 mg Capsule 100 mg PO DAILY PRN topiramate 25 mg tablet 25 mg PO HS Label Comments: TAKE 1 TABLET BY MOUTH AT BEDTIME topiramate 50 mg tablet 50 mg PO HS Label Comments: TAKE 1 TABLET BY MOUTH ONCE DAILY tramadol 50 mg tablet 50 mg PO Q6H PRN PRN (Reason: pain) amlodipine 2.5 mg tablet 2.5 mg PO DAILY gabapentin 300 mg capsule 300 mg PO BID Rx Instructions: FOR DIABETIC FOOT NEUROPATHY cholecalciferol (vitamin D3) [Vitamin D3] 1,000 unit Tablet 1,000 unit PO DAILY pantoprazole [Protonix] 40 mg tablet,delayed release (DR/EC) 40 mg PO DAILY Qty: 30 0RF Victoza 2-Thanh 0.6 mg/0.1 mL (18 mg/3 mL) pen injector 1.8 mg SUBCUT DAILY magnesium 200 mg Tablet 400 mg PO DAILY mupirocin 2 % Ointment 1 applic TOPICAL BID potassium chloride 10 mEq Capsule, Extended Release 10 meq PO DAILY Discharge Instructions Instructions: Diabetic Peripheral Neuropathy (ED), Arthralgia (ED) Additional Instructions: Please follow-up with your primary care physician in the next week. Please return to the emergency department you develop worsening symptoms such as pain swelling redness fevers chills or other abnormal symptoms. Be sure to check yo ur blood sugar consistently over the next couple of days as the medication we gave you today can raise your blood sugar.
[2022-01-10] MEDS: Dexamethasone 10 MG/ML VIAL IM (09:20)
== END 2022-01-10 09:35 | disposition home or self-care (01) ==
PROVIDERS: Emergency Provider Emergency Medicine; PCP Family Medicine
DX: M10.9 Gout, unspecified (principal); E11.9 Type 2 diabetes mellitus without complications; I10 Essential (primary) hypertension; Z79.4 Long term (current) use of insulin; Z79.84 Long term (current) use of oral hypoglycemic drugs
CPT/HCPCS: 96372; 99284; 73630; J1100

== ENCOUNTER → 2022-02-03 12:58 | Outpatient (BNVA) | payer MEDICARE, OTHER, SELFPAY | PROVIDERS: PCP Family Medicine; Referring Provider Family Medicine; Visit Provider Internal Medicine Cardiovascular Disease | DX: R06.09 Other forms of dyspnea (principal); I25.119 Atherosclerotic heart disease of native coronary artery with unspecified angina pectoris; I10 Essential (primary) hypertension; E78.5 Hyperlipidemia, unspecified | CPT/HCPCS: 99214 ==

== ENCOUNTER → 2022-02-17 14:26 | Outpatient (BNVA) | payer MEDICARE, OTHER, SELFPAY | PROVIDERS: PCP Family Medicine; Referring Provider Family Medicine; Visit Provider Urology | DX: N40.1 Benign prostatic hyperplasia with lower urinary tract symptoms (principal); R39.12 Poor urinary stream; Z98.890 Other specified postprocedural states; N39.0 Urinary tract infection, site not specified; N35.919 Unspecified urethral stricture, male, unspecified site | CPT/HCPCS: 51798; 99213 ==

== ENCOUNTER → 2022-02-18 16:57 | Outpatient (CLI) | payer MEDICARE, OTHER, SELFPAY ==
--- NOTE | 2022-02-18 16:30 | DI.RAD_ITS ---
Exam(s) XR LUMBAR SPINE COMP W FLEX/EX EXAM: XR LUMBAR SPINE COMP W FLEX/EX CLINICAL HISTORY: LOW BACK PAIN-M54.50, DIRECT TRAUMA-CONTIUES TTP. TECHNIQUE: 2D digital imaging was performed. COMPARISON: CT CT CHEST PE ABD PELVIS W from 04/21/2019 CR XR LUMBAR SPINE COMPLETE from 04/01/2021 MR MR LUMBAR SPINE WO from 06/23/[address] ABDOMEN PELVIS WO from 12/16/2021 FINDINGS: Eight views Stable wedge-shaped compression fracture of T12 again noted. No evidence compression fracture in the lumbosacral spine. No listhesis. No pars defects. There is advanced disc space narrowing again noted at L5-S1 level. Mild narrowing of the disc space posterio rly at L4-5 level again noted other disc spaces above this exhibit height exception of mild narrowing at T12-L1. There is a sclerotic bone density in the lateral aspect of the left SI joint, shown to b e in the left iliac bone on the CT scan of 12/16/2021. This is also unchanged from CT scan of 2018. Moderate degenerative changes the facet joints noted at the lower 2 levels. IMPRESSION: Stable appearance DATA REPOSITORY: RADIATION DOSE DELIVERED:
== END ==
PROVIDERS: PCP Family Medicine; Visit Provider Preventive Medicine Occupational Medicine
DX: M54.59 Other low back pain (principal); M51.37 Other intervertebral disc degeneration, lumbosacral region; M53.3 Sacrococcygeal disorders, not elsewhere classified; M47.817 Spondylosis without myelopathy or radiculopathy, lumbosacral region
CPT/HCPCS: 72114

== ENCOUNTER 2022-03-06 18:46 | Outpatient (REF) | payer MEDICARE, OTHER, SELFPAY ==
[2022-03-06 19:20] LABS: HCT 38.1 % (40.0-50.0); HGB 13.1 g/dL (13.5-17.5); MCH 29.1 pg (27.0-33.0); MCHC 34.4 % (32.0-36.0); MCV 85 fL (80-95); MPV 9.6 fL (8.0-11.0); Platelet Count 179 10^3/uL (130-400); RDW 15.2 % (11.8-14.1); RDW-SD 46.6 fL; WBC 6.08 10^3/uL (4.4-10.8)
[2022-03-06 20:25] LABS: Ferritin 54 ng/mL (26-388); Vitamin B12 345 pg/mL (193-986)
== END 2022-03-06 18:47 | disposition home or self-care (01) ==
LOC: NCHCN 18:46
PROVIDERS: PCP Family Medicine; Visit Provider Family Medicine
DX: R53.83 Other fatigue (principal)
CPT/HCPCS: 85027; 82607; 82728

== ENCOUNTER 2022-04-20 12:24 | Inpatient (IN) | payer MEDICARE, OTHER, SELFPAY ==
[2022-04-20] VITALS (67 sets, daily range): BP systolic 143–179; BP diastolic 72–102; PULSE 90–113; RESP 12–27; TEMP 36.2; O2SAT 95–99
--- NOTE | 2022-04-20 12:30 | RT.EKG_ITS ---
APPROVED REPORT Exam: Resting ECG Reason for Exam: chest pain Patient Location: E HR:96 bpm ECG Measurements Heart Rate 96 AXIS OH 125 P 36 QRSd 86 QRS 10 QT 354 T [id number] QTc 448 Conclusion Sinus rhythm...normal P axis, V-rate 60- 99 Nonspecific T abnrm, anterolateral leads...T <-0.10mV, I aVL V2-V6 sinus rhythm at 96, normal axis, nonspecific T wave changes without major change from prior, no STEMI , nondiagnostic EKG
--- NOTE | 2022-04-20 12:31 | ED.GENADUL_ITS ---
Discharge Plan Disposition Patient Disposition: [facility] INPATIENT Condition: Stable Discharge Details Chief Complaint: Chest Pain Clinical Impression: Chest pain Admit Date/Time: 04/20/22 17:19 Admit Provider: Anette Duarte Attending Provider: Anette Duarte Primary Care Provider: Alisa Ramirez ED Provider: Christopher Lua Discharge Instructions Activity:: Activity as Tolerated Activity:: Activity as Tolerated Equipment/Supplies:: No Equipment Needed Diet:: Carb Counting Discharge Data Discharge Date/Time-TO BE ENTERED AT DEPARTURE: 04/20/22 18:45 Medical Decision Making <Sammi Quiñones MD - Last Filed: 05/11/22 08:31> Concern for acute coronary syndrome versus musculoskeletal pain versus other. Doubt pulmonary embolism. Exam/history at this time is not consistent with acute aortic pathology, sepsis. EKG shows no STEMI, no major change from prior. Plan for IV placement, screening labs, telemetry, nitroglycerin infusion. Patient states that he has been told in the past to never take aspirin due to bleeding issues and refuses aspirin. Per record review cath one year ago showed patent vessels, he was started on amlodipine for coronary vasospasm. Labs reviewed, troponin negative. Patient is not low risk by HEART score, plan for admission for further evaluation and treatment. I discussed patient with Dr. Duarte, hospitalist, who requested CTA to rule out aortic pathology, plan for admission if this study is negative. Patient signed out to Dr. Lua with repeat troponin, CTA pending. Dr. Lua's documentation Case is signed out to me by Dr. Quiñones. Please refer to HPI, physical exam, assessment and plan. At time of signout we are awaiting repeat troponin. Additionally Dr. Quiñones had spoken with the hospitalist Dr. Duarte, and Dr. Duarte had requested a CTA. This was performed and ordered by Dr. Quiñones at Dr. Duarte's request. CTA is negative for acute process. Patient remains pain-free on 10-20 of nitro. Repeat troponin has returned normal. I did contact Dr. Duarte and discussed this with her. She accepts the patient for admission. I have extensively reviewed the treatment plan and discharge instructions with the patient. I have addressed all patient concerns at this time. The patient was made aware of what symptoms to monitor for that would warrant a return to the emergency department. Discussed the plan with the patient, they demonstrate verbal understanding and agreement with our assessment and plan at this time. The documentation in this chart was dictated using [email or web address] dictation software. Please excuse any dictation errors. FINDINGS: CHEST: Tracheobronchial tree: Patent where visualized. Mediastinum and Светлана: No dominant adenopathy or fluid collection. Pulmonary parenchyma: No consolidation or dominant measurable mass. Pulmonary arteries: Well opacified. No emboli. Pleura: No effusion or pneumothorax. Lymph nodes: Within normal limits. Aorta: Maximal dimension ascending aorta 4 cm.. No dissection. Atherosclerotic changes. Visualized branch vessels patent. Heart: Not enlarged. Coronary artery calcifications and stents. Prior CABG. Bones: Sternal wires. Degenerative changes unremarkable for age. No lytic or blastic lesions. Old T12 mild compression fracture. ABDOMEN: Liver: Normal density. No measurable mass. Gallbladder and biliary tract: No radiodense calculus or dilation. Pancreas: Normal density, no abnormal calcifications or inflammatory process. Spleen: Normal. Kidneys: Normal size, contour and axis. No radiodense stones or obstructive uropathy. Small bilateral cysts. No suspicious masses seen. Adrenal glands: No masses seen. Aorta: Abdominal portion non-dilated. Atherosclerotic changes. Branch vessels are patent. Lymph nodes: Within normal limits. Soft tissues: Unremarkable. PELVIS: Bladder: Somewhat distended., no gross wall thickening. Bowel: No obstruction or bowel wall thickening. Peritoneal cavity: No ascites, collection or mesenteric inflammatory response. Bones: Degenerative changes, unremarkable for age.. Reproductive organs: Within normal limits. IMPRESSION: No acute abnormality in the chest abdomen or pelvis.. Results of this exam have been verbally communicated with the emergency department provider. Medical Records Medical records reviewed: Yes I reviewed the patient's medical records. Imaging Data Radiologic Study: Attestation: I personally reviewed and interpreted this imaging study as follows: Radiologist's impression: EXAM:? XR PORTABLE CHEST AP CLINICAL HISTORY:? chest pain TECHNIQUE:? 2D digital imaging was performed. COMPARISON:? CR,XR XR CHEST 2V PA ? LATERAL from 06/19/2021 FINDINGS: Exam is limited by rotation.? LUNGS: Clear. No pleural abnormality seen. HEART: Normal.? Status post CABG. AORTA: Normal. BONES: Unremarkable for age.? Sternal wires. Soft tissues: Unremarkable. IMPRESSION: No acute? findings. Lab Data Lab results reviewed: Yes I reviewed the patient's lab results. ECG Data Attestation: I personally reviewed and interpreted this ECG (s) as follows: Interpretation: EKG shows sinus rhythm at 96, normal axis, nonspecific T wave changes without ma hay change from prior, no STEMI, nondiagnostic EKG <Christopher Lua, DO - Last Filed: 04/20/22 22:45> Concern for acute coronary syndrome versus musculoskeletal pain versus other. Doubt pulmonary embolism. Exam specially at this time is not consistent with acute aortic pathology, sepsis. EKG shows no STEMI, no major change from prior. Plan for IV placement, screening labs, telemetry, nitroglycerin infusion. Patient states that he has been told in the past to never take aspirin due to bleeding issues and cath one year ago showed patent vessels, he was started on amlodipine for coronary vasospasm. Dr. Lua's documentation Case is signed out to me by Dr. Quiñones. Please refer to HPI, physical exam, assessment and plan. At time of signout we are awaiting repeat troponin. Additionally Dr. Quiñones had spoken with the hospitalist Dr. Duarte, and Dr. Duarte had requested a CTA. This was performed and ordered by Dr. Quiñones at Dr. Duarte 's request. CTA is negative for acute process. Patient remains pain-free on 10-20 of nitro. Repeat troponin has returned normal. I did contact Dr. Duarte and discussed this with her. She accepts the patient for admission. I have extensively reviewed the treatment plan and discharge instructions with the patient. I have addressed all patient concerns at this time. The patient was made aware of what symptoms to monitor for that would warrant a return to the emergency department. Discussed the plan with the patient, they demonstrate verbal understanding and agreement with our assessment and plan at this time. The documentation in this chart was dictated using [email or web address] dictation software. Please excuse any dictation errors. FINDINGS: CHEST: Tracheobronchial tree: Patent where visualized. Mediastinum and Светлана: No dominant adenopathy or fluid collection. Pulmonary parenchyma: No consolidation or dominant measurable mass. Pulmonary arteries: Well opacified. No emboli. Pleura: No effusion or pneumothorax. Lymph nodes: Within normal limits. Aorta: Maximal dimension ascending aorta 4 cm.. No dissection. Atherosclerotic changes. Visualized branch vessels patent. Heart: Not enlarged. Coronary artery calcifications and stents. Prior CABG. Bones: Sternal wires. Degenerative changes unremarkable for age. No lytic or blastic lesions. Old T12 mild compression fracture. ABDOMEN: Liver: Normal density. No measurable mass. Gallbladder and biliary tract: No radiodense calculus or dilation. Pancreas: Normal density, no abnormal calcifications or inflammatory process. Spleen: Normal. Kidneys: Normal size, contour and axis. No radiodense stones or obstructive uropathy. Small bilateral cysts. No suspicious masses seen. Adrenal glands: No masses seen. Aorta: Abdominal portion non-dilated. Atherosclerotic changes. Branch vessels are patent. Lymph nodes: Within normal limits. Soft tissues: Unremarkable. PELVIS: Bladder: Somewhat distended., no gross wall thickening. Bowel: No obstruction or bowel wall thickening. Peritoneal cavity: No ascites, collection or mesenteric inflammatory response. Bones: Degenerative changes, unremarkable for age.. Reproductive organs: Within normal limits. IMPRESSION: No acute abnormality in the chest abdomen or pelvis.. Results of this exam have been verbally communicated with the emergency department provider. HPI <Sammi Quiñones MD - Last Filed: 05/11/22 08:31> General Mode of arrival: ambulatory . Date/Time Provider Initiated Documentation: 04/20/22 12:29 . Limitations to Documentation: no limitations . Information obtained by: patient, RN notes reviewed and old records reviewed . HPI Narrative: Fredo Osman is a 71-year-old man with a history of coronary artery disease, traumatic brain injury, hyperlipidemia, diabetes, GERD, hyperlipidemia, hypertension, hypothyroidism presenting to emergency department with chest pain. Patient reports that he has had 2 cardiac catheterizations and CABG in the past. Patient reports that he has had brain bleeding in the past and is not felt to take aspirin or any other anticoagulant/antiplatelet agent. Patient reports that over the past 3 days he has been having intermittent sharp left chest pain that radiates into his left arm. Patient reports that pain woke him from sleep this morning and has been constant since onset. Patient reports that nitroglycerin prior to arrival improved pain from 7-8 out of 10 to 3 out of 10. Patient reports that pain has been mostly nonexertional and often occurring at rest. He denies any other pain, fever, cough, shortness of breath, vomiting, diarrhea, numbness, weakness, rash. States that otherwise he has felt well in his usual state of health. Normal appetite. Patient states that approximately 1 year ago he had similar symptoms for which she went to [facility], states that he did not have any stents placed at that time and they told him there is nothing to do. Related Data Home Medications Medication Instructions Recorded Confirmed levothyroxine 50 mcg tablet 50 mcg PO DAILY@0730 01/24/13 04/28/22 quetiapine 300 mg tablet (Seroquel) 300 mg PO HS 01/24/13 04/28/22 rosuvastatin 20 mg tablet (Crestor) 20 mg PO HS 03/22/17 04/28/22 nitroglycerin 0.4 mg sublingual 0.4 mg sublingual as directed 04/08/17 04/28/22 tablet (Nitrostat) polyethylene glycol 3350 17 gram 17 g PO DAILY PRN #255 grams 04/08/17 04/28/22 oral powder packet (Miralax) insulin detemir U-100 100 unit/mL 75 units subcut BID 08/04/17 04/28/22 (3 mL) subcutaneous pen (Levemir FlexTouch U-100 Insulin) cholecalciferol (vitamin D3) 25 1,000 unit PO DAILY 11/11/18 04/28/22 mcg (1,000 unit) tablet (Vitamin D3) riboflavin (vitamin B2) 100 mg 400 mg PO BID 03/28/19 04/28/22 tablet (Vitamin B-2) bisacodyl 5 mg tablet,delayed 5 mg PO DAILY PRN 04/17/19 04/28/22 release (Dulcolax (bisacodyl)) pantoprazole 40 mg tablet,delayed 40 mg PO DAILY #30 tabs 04/25/19 04/28/22 release (Protonix) metoprolol succinate 50 mg 50 mg PO DAILY 05/10/19 04/28/22 tablet,extended release 24 hr acetylcysteine 600 mg capsule (NAC) 600 mg PO BID 05/16/19 04/28/22 citalopram 20 mg tablet 10 mg PO DAILY 05/16/19 04/28/22 lisinopril 20 mg tablet 30 mg PO DAILY 05/24/19 04/28/22 diclofenac sodium 1 % topical gel 1 applic topical DIRECTED 04/30/20 04/28/22 (Voltaren) ranolazine 500 mg tablet,extended 500 mg PO BID 04/30/20 04/28/22 release,12 hr (Ranexa) liraglutide 0.6 mg/0.1 mL (18 mg/3 1.8 mg subcut DAILY 06/19/20 04/28/22 mL) subcutaneous pen injector (Victoza 2-Thanh) isosorbide mononitrate 60 mg 60 mg PO DAILY 09/18/20 04/28/22 tablet,extended release 24 hr lidocaine 5 % topical patch 1 patch topical Q24H #4 ea 10/14/20 04/28/22 (Lidoderm) methocarbamol 500 mg tablet 500 mg PO Q6H PRN muscle spasm #14 11/07/20 04/28/22 tabs triamcinolone acetonide 0.1 % 1 applic topical BID 11/13/20 04/28/22 topical ointment docusate sodium 100 mg capsule 100 mg PO DAILY PRN 01/07/21 04/28/22 (Colace) topiramate 25 mg tablet 25 mg PO HS 01/09/21 04/28/22 topiramate 50 mg tablet 50 mg PO HS 01/09/21 04/28/22 gabapentin 300 mg capsule 300 mg PO BID 02/04/21 04/28/22 carboxymethylcellulose sodium 0.5 1 - 2 drp ophthalmic (eye) QID PRN 03/27/21 04/28/22 % eye drops (Refresh Tears) phenazopyridine 200 mg tablet 200 mg PO TID PRN 03/27/21 04/28/22 magnesium 200 mg tablet 400 mg PO DAILY 06/07/21 04/28/22 tramadol 50 mg tablet 50 mg PO Q6H PRN PRN pain 06/19/21 04/28/22 amlodipine 2.5 mg tablet 2.5 mg PO DAILY 08/18/21 04/28/22 finasteride 5 mg tablet 5 mg PO DAILY #90 tabs 08/18/21 04/28/22 mupirocin 2 % topical ointment 1 applic topical BID 09/14/21 04/28/22 potassium chloride 10 mEq 10 meq PO DAILY 09/14/21 04/28/22 capsule,extended release allopurinol 300 mg tablet 300 mg PO DAILY 04/23/22 04/28/22 cod liver oil 1 cap PO DAILY 04/23/22 04/28/22 metformin 1,000 mg tablet 1,000 mg PO BID 04/23/22 04/28/22 triamcinolone acetonide 0.1 % 1 applic topical BID 04/23/22 04/28/22 topical cream Previous Rx's Medication Instructions Recorded pantoprazole 40 mg tablet,delayed 40 mg PO DAILY #30 tabs 04/25/19 release (Protonix) lidocaine 5 % topical patch 1 patch topical Q24H #4 ea 10/14/20 (Lidoderm) methocarbamol 500 mg tablet 500 mg PO Q6H PRN muscle spasm #14 11/07/20 tabs finasteride 5 mg tablet 5 mg PO DAILY #90 tabs 08/18/21 Allergies Allergy/AdvReac Type Severity Reaction Status Date / Time amoxicillin Allergy Severe breathing Verified 04/28/22 10:46 difficuty and vomiting Penicillins Allergy Intermediate Skin Rash Verified 04/28/22 10:46 sulfamethoxazole Allergy Intermediate Skin Rash Verified 04/28/22 10:46 [From Bactrim] trimethoprim [From Bactrim] Allergy Intermediate Skin Rash Verified 04/28/22 10:46 oxycodone HCl [From Percocet] AdvReac Severe Contraindic Verified 04/28/22 10:46 ated oxycodone terephthalate AdvReac Severe Contraindic Verified 04/28/22 10:46 [From Percodan] ated General MADELIN: 4 Review of Systems <Sammi Quiñones MD - Last Filed: 05/11/22 08:31> Narrative: Constitutional: denies fevers Eyes: denies eye pain ENT: denies ear pain, dental pain, sore throat Cardiovascular: denies edema, reports chest pain Respiratory: denies SOB, cough GI: denies abdominal pain, vomiting, diarrhea : denies flank pain MSK: denies back pain, neck pain, arthralgias, myalgias Skin: denies rash Neuro: denies headaches, numbness, weakness PFSH <Sammi Quiñones MD - Last Filed: 05/11/22 08:31> All Active Problems Screening for colon cancer (Acute) Chest pain (Acute) Nail dystrophy (Acute) Low back pain (Acute) Lumbar radiculopathy (Acute) Compression fracture of lumbar vertebra (Acute) Viral URI with cough (Acute) Chest pain (Acute) Unstable angina (Acute) UTI (urinary tract infection) (Acute) UTI (urinary tract infection) (Acute) Arthritis of right hip (Acute) Contusion of right hip (Acute) Left rib fracture (Acute) Rib pain on left side (Acute) Chest wall muscle strain (Acute) History of rib fracture (Acute) Head trauma (Acute) Chronic subdural hematoma (Chronic) Chest pain (Acute) Pituitary abnormality (Acute) Neck pain (Acute) Hand weakness (Acute) Cubital tunnel syndrome on right (Acute) Lower urinary tract symptoms (Chronic) Lumbar radiculitis (Acute) Lumbosacral spondylosis without myelopathy (Acute) Chronic rhinitis (Chronic) Atypical chest pain (Acute) Musculoskeletal; Negative NPI 04/29/2018 Urethral stricture (Acute 08/20/15) Sensory hearing loss, bilateral (Chronic 04/09/14) Sensorineural hearing loss, asymmetrical (Chronic 05/12/13) Postnasal drip (Chronic 05/13/15) Mild cognitive impairment (Chronic 01/31/18) Hypertrophy of nasal turbinates (Chronic 08/05/15) 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) Deviated nasal septum (Chronic 08/05/15) Thoracic spondylosis without myelopathy (Chronic) Coronary artery disease (Chronic) Hyperlipidemia (Chronic) Diabetes mellitus type 2 in obese (Chronic) Medical History Anemia, iron deficiency Cecal volvulus Chronic low back pain Colon polyps Constipation, chronic Depression Diastasis recti DM type 2 (diabetes mellitus, type 2) Fatty liver GERD (gastroesophageal reflux disease) Gout H/O alcohol abuse Headaches due to 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 Hx of deep venous thrombosis Hx of traumatic brain injury Hyperlipidemia Hypertension Hypothyroidism Knee pain, right Migraine headache Mild dementia MRSA infection Obstructive sleep apnea Pain in joint of right foot Rathke's pouch cyst Recurrent UTI Rhinorrhea Right sided weakness Shoulder pain Tinea pedis Urethral stricture Vitamin D deficiency Volvulus of cecum Surgical History Appendectomy (06/01/16) Colonoscopy - MAC 2009-5year f/u 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 electroconvulsive therapy Extraction of cataract facial lesion removal Repair of inguinal hernia (08/05/17) right inguinal hernia repair by Dr Arroyo on 08/05/17 Repair of umbilical hernia Social History Smoking/Tobacco Use Status: Never Smoking risk assessment performed?: Yes Alcohol Intake: former Drug use: Never Substance use type: does not use Household members: spouse Housing: house Pets and animals: Yes Pets and animals: dog(s) Do you feel safe at home: Yes Do you feel safe in your relationship?: Yes Exam <Sammi Quiñones MD - Last Filed: 05/11/22 08:31> Narrative Exam Narrative: Constitutional: well and [id number], pleasant, conversing normally HENT: head atraumatic/normocephalic/normal inspection, mucous membranes moist Eyes: conjunctiva normal, sclera normal, pupils 3mm b/l Neck: no stridor, normal ROM, trachea midline Chest: normal inspection, left chest mildly tender to palpation, reproduces pain, no crepitus, no overlying skin changes Resp: normal work of breathing, LCTAB Cardio: normal rate, normal rhythm, no murmur appreciated GI: abdomen soft, non-tender, non-distended Back: normal inspection, no rash Skin: warm, dry, normal color, no rash Neuro: alert, not altered, grossly non-focal, normal tone Ext: no edema, no posterior calf tenderness to palpation Psych: normal mood, normal affect, normal behavior <Christopher Lua DO - Last Filed: 04/20/22 22:45> Critical Care Time Critical Care Time: Yes Total Critical Care Time: 30 Attestation: Upon my evaluation, this patient had a high probability of imminent or life- threatening deterioration, which required my direct attention, intervention, and personal management. I have personally provided 30 minutes of critical care time exclusive of time spent on separately billable procedures. Time includes review of laboratory data, radiology results, discussion with consultants, and monitoring for potential decompensation. Interventions were performed as documented. Sign Out <Sammi Quiñones MD - Last Filed: 05/11/22 08:31> Sign Out Data: Sign Out Comment: Patient signed out to Dr. Lua pending CTA and repeat troponin, plan for admission, I have discussed patient with Dr. Duarte who has accepted for admission pending these results. Last updated by Sammi Quiñones MD at 04/20/22 15:39
[2022-04-20 13:17] LABS: Abs Immature Grans 0.01 10^3/uL (0.0-0.06); Absolute Basophil Count 0.07 10^3/uL (0.0-0.2); Absolute Eosinophil Count 0.28 10^3/uL (0.0-0.7); Absolute Lymphocyte Count 0.85 10^3/uL (1.2-3.4); Absolute Monocyte Count 0.39 10^3/uL (0.1-0.8); Basophils % 1.3; HGB 12.4 g/dL (13.5-17.5); Immature Grans % 0.2; Lymphocytes % 15.2; MCHC 33.5 % (32.0-36.0); MCV 86 fL (80-95); MPV 9.1 fL (8.0-11.0); Neutrophils % 71.3; Platelet Count 158 10^3/uL (130-400); RBC 4.28 10^6/uL (4.36-5.78); RDW 14.5 % (11.8-14.1); RDW-SD 44.9 fL
[2022-04-20] MEDS: nitroGLYcerin in D5W 50 MG/250 ML BTL IV (13:23)
[2022-04-20] MEDS: Normal Saline Flush 10 ML SYR IVP ×3 (13:26→21:44)
[2022-04-20 13:38] LABS: ALT 17 U/L (16-63); AST 10 U/L (15-37); Alkaline Phosphatase 88 U/L (46-116); Anion Gap 7.6 mmol/L (3-11); BUN 15 mg/dL (7-18); Bilirubin, Total 0.4 mg/dL (0.2-1.0); CO2 22.4 mmol/L (21.0-32.0); CREATININE 1.4 mg/dL (0.70-1.30); Calcium 8.8 mg/dL (8.5-10.1); Chloride 106 mmol/L (98-107); Glucose 209 mg/dL (74-106); Magnesium 2.2 mg/dL (1.8-2.4); Sodium 136 mmol/L (136-145); Troponin I < 50 ng/L (<or=60)
[2022-04-20 13:39] LABS: NT-proBNP 113 pg/mL (<300)
[2022-04-20 13:48] LABS: D-Dimer 395 ng/mlFEU (<500)
--- NOTE | 2022-04-20 14:00 | DI.RAD_ITS ---
Exam(s) XR PORTABLE CHEST AP EXAM: XR PORTABLE CHEST AP CLINICAL HISTORY: chest pain TECHNIQUE: 2D digital imaging was performed. COMPARISON: CR,XR XR CHEST 2V PA LATERAL from 06/19/2021 FINDINGS: Exam is limited by rotation. LUNGS: Clear. No pleural abnormality seen. HEART: Normal. Status post CABG. AORTA: Normal. BONES: Unremarkable for age. Sternal wires. Soft tissues: Unremarkable. IMPRESSION: No acute findings. DATA REPOSITORY: RADIATION DOSE DELIVERED:
--- NOTE | 2022-04-20 15:18 | DI.CT_ITS ---
Exam(s) CT THORAX ABD/PEL CTA EXAM: CT THORAX ABD/PEL CTA CLINICAL HISTORY: chest pain. TECHNIQUE: Imaging Protocol: Axial computed tomography images with coronal and sagittal reformatted images were created and reviewed CONTRAST MATERIAL: Intravenous: Omnipaque 350 Contrast volume:100 ml Oral: no COMPARISON: CT CT ABDOMEN PELVIS WO from 12/16/2021 CR XR PORTABLE CHEST AP from 04/20/2022 FINDINGS: CHEST: Tracheobronchial tree: Patent where visualized. Mediastinum and Светлана: No dominant adenopathy or fluid collection. Pulmonary parenchyma: No consolidation or dominant measurable mass. Pulmonary arteries: Well opacified. No emboli. Pleura: No effusion or pneumothorax. Lymph nodes: Within normal limits. Aorta: Maximal dimension ascending aorta 4 cm.. No dissection. Atherosclerotic changes. Visualized branch vessels patent. Heart: Not enlarged. Coronary artery calcifications and stents. Prior CABG. Bones: Sternal wires. Degenerative changes unremarkable for age. No lytic or blastic lesions. Old T12 mild compression fracture. ABDOMEN: Liver: Normal density. No measurable mass. Gallbladder and biliary tract: No radiodense calculus or dilation. Pancreas: Normal density, no abnormal calcifications or inflammatory process. Spleen: Normal. Kidneys: Normal size, contour and axis. No radiodense stones or obstructive uropathy. Small bilatera l cysts. No suspicious masses seen. Adrenal glands: No masses seen. Aorta: Abdominal portion non-dilated. Atherosclerotic changes. Branch vessels are patent. Lymph nodes: Within normal limits. Soft tissues: Unremarkable. PELVIS: Bladder: Somewhat distended., no gross wall thickening. Bowel: No obstruction or bowel wall thickening. Peritoneal cavity: No ascites, collection or mesenteric inflammatory response. Bones: Degenerative changes, unremarkable for age.. Reproductive organs: Within normal limits. IMPRESSION: No acute abnormality in the chest abdomen or pelvis.. Results of this exam have been verbally communicated with the emergency department provider. RADIATION DOSE DELIVERED: Total DLP DATA REPOSITORY: All CT scans at this facility are submitted to the National Radiology Data Registry (NRDR) Dose Index Registry (DIR) with the [employer] ([employer]). RADIATION OPTIMIZATION: All CT scans at this facility use at least one of these dose optimization te chniques: automated exposure control; mA and/or kV adjustment per patient size (includes targeted exa ms where dose is matched to clinical indication); or iterative reconstruction.
[2022-04-20] MEDS: Normal Saline 500 ML IV (15:26)
[2022-04-20] MEDS: Omnipaque 350 MG/ML 100 ML BTL IJ (16:24)
[2022-04-20 16:52] LABS: Troponin I < 50 ng/L (<or=60)
[2022-04-20 17:43] LABS: Source Nasal/Nares
[2022-04-20 18:23] LABS: COVID-19 PCR Negative (Negative)
--- NOTE | 2022-04-20 20:08 | HPE_ITS ---
Date of service: 04/20/22 Time of Service: 20:09 Assessment and Plan Assessment and plan (1) Unstable angina: Status: Suspected Assessment and plan: Chest pain responsive to nitroglycerin in absence of elevated troponin or EKG changes, though baseline EKG is not normal. Continue nitroglycerin infusion. Antiplatelet tx/anticoagulation contraindicated due to hx of TBI. Continue home cardiac medications including ranexa, metoprolol, lisinopril, imdur, statin. Continue amlodipine since vasospasm was previously suspected. Consult cardiology. Obtain echo. Continue cardiac monitoring. (2) Hyperlipidemia: Status: Chronic Assessment and plan: Continue statin. Check fasting lipid panel. (3) Diabetes mellitus type 2 in obese: Status: Chronic Assessment and plan: Continue home levemir, but half tonight's and tomorrow's am's doses as he will be NPO; cover with SSI. (4) Hx of traumatic brain injury: Assessment and plan: Will avoid antiplatelet tx/anticoagulation/chemical DVT ppx. We are clarifying with the patient's how he takes his topiramate. (5) Constipation, chronic: Assessment and plan: bowel regimen (6) DVT prophylaxis: Status: Acute Assessment and plan: SCDs. Chemical DVT ppx is contraindicated in this patient with a h/o brain bleeding (7) Discharge planning issues: Status: Acute Assessment and plan: Full code May require transfer to a tertiary care facility History of Present Illness History of Present Illness Chief Complaint: chest pain Narrative: Mr Osman is a 71 year old male with PMHx of a brain bleed/TBI, as well as h/o CAD s/p CABG, IDDM2, hyperlipidemia, who presented to [facility] ED today c/o chest pain waking him up from sleep. He states that the chest pains are sharp, L- sided, and radiating to his LUE. They have been happening for the past 3 days, coming and going, but since this morning it has persisted. The pain can be somewhat reproduced with palpation. Nitroglycerin helped take the pain down from 7 to a 4. In the ED, his EKG showed unchanged T wave flattening. His troponins were negative. He was initiated on nitroglycerin gtt alone since he is not darling pposed to be even on an aspirin due to his h/o bleeding. This helped relieve his chest pain. The patient does now report a headache. He had a negative CTA of the chest/aorta. He had a cardiac cath about a year ago which did not show CAD. It was felt he was having coronary vasospasm so he was started on norvasc. Additionally, the patient reports feeling constipated and having a lot of flatus. He denies abdominal pain, nausea, dizziness, diaphoresis, shortness of breath, palpitations. Review of Systems All systems reviewed & are unremarkable except as noted in HPI and below PFSH All Active Problems (Updated 04/20/22 @ 20:32 by Anette Duarte MD) Nail dystrophy (Acute) Low back pain (Acute) Lumbar radiculopathy (Acute) Compression fracture of lumbar vertebra (Acute) Viral URI with cough (Acute) Chest pain (Acute) Unstable angina (Acute) UTI (urinary tract infection) (Acute) UTI (urinary tract infection) (Acute) Arthritis of right hip (Acute) Contusion of right hip (Acute) Left rib fracture (Acute) Rib pain on left side (Acute) Chest wall muscle strain (Acute) History of rib fracture (Acute) Head trauma (Acute) Discharge planning issues (Acute) DVT prophylaxis (Acute) Chronic subdural hematoma (Chronic) Chest pain (Acute) Pituitary abnormality (Acute) Neck pain (Acute) Hand weakness (Acute) Cubital tunnel syndrome on right (Acute) Lower urinary tract symptoms (Chronic) Lumbar radiculitis (Acute) Lumbosacral spondylosis without myelopathy (Acute) Chronic rhinitis (Chronic) Atypical chest pain (Acute) Musculoskeletal; Negative NPI 04/29/2018 Urethral stricture (Acute 08/20/15) Sensory hearing loss, bilateral (Chronic 04/09/14) Sensorineural hearing loss, asymmetrical (Chronic 05/12/13) Postnasal drip (Chronic 05/13/15) Mild cognitive impairment (Chronic 01/31/18) Hypertrophy of nasal turbinates (Chronic 08/05/15) 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) Deviated nasal septum (Chronic 08/05/15) Thoracic spondylosis without myelopathy (Chronic) Coronary artery disease (Chronic) Hyperlipidemia (Chronic) Diabetes mellitus type 2 in obese (Chronic) Medical History Anemia, iron deficiency Chronic low back pain Colon polyps Constipation, chronic Depression Diastasis recti DM type 2 (diabetes mellitus, type 2) Fatty liver GERD (gastroesophageal reflux disease) Gout H/O alcohol abuse Headaches due to 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 Hx of deep venous thrombosis Hx of traumatic brain injury Hyperlipidemia Hypertension Hypothyroidism Knee pain, right Migraine headache Mild dementia MRSA infection Obstructive sleep apnea Pain in joint of right foot Rathke's pouch cyst Recurrent UTI Rhinorrhea Right sided weakness Tinea pedis Urethral stricture Vitamin D deficiency Volvulus of cecum Surgical History Appendectomy (06/01/16) Colonoscopy - MAC 2009-5year f/u 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 electroconvulsive therapy Extraction of cataract facial lesion removal Repair of inguinal hernia (08/05/17) right inguinal hernia repair by Dr Arroyo on 08/05/17 Repair of umbilical hernia Social History Smoking/Tobacco Use Status: Never Smoking risk assessment performed?: Yes Alcohol Intake: former Drug use: Never Substance use type: does not use Household members: spouse Housing: house Pets and animals: Yes Pets and animals: dog(s) Do you feel safe at home: Yes Do you feel safe in your relationship?: Yes Meds Allergies and Home Medications Allergies Allergy/AdvReac Type Severity Reaction Status Date / Time amoxicillin Allergy Severe breathing Verified 02/18/22 15:43 difficuty and vomiting Penicillins Allergy Intermediate Skin Rash Verified 02/18/22 15:43 sulfamethoxazole Allergy Intermediate Skin Rash Verified 02/18/22 15:43 [From Bactrim] trimethoprim [From Bactrim] Allergy Intermediate Skin Rash Verified 02/18/22 15:43 oxycodone HCl [From Percocet] AdvReac Severe Contraindic Verified 02/18/22 15:43 ated oxycodone terephthalate AdvReac Severe Contraindic Verified 02/18/22 15:43 [From Percodan] ated Home Medications Medication Instructions Recorded Confirmed Type levothyroxine 50 mcg tablet 50 mcg PO DAILY@0730 01/24/13 04/20/22 History quetiapine 300 mg tablet (Seroquel) 300 mg PO HS 01/24/13 04/20/22 History rosuvastatin 20 mg tablet (Crestor) 20 mg PO HS 03/22/17 04/20/22 History nitroglycerin 0.4 mg sublingual 0.4 mg sublingual as directed 04/08/17 04/20/22 History tablet (Nitrostat) polyethylene glycol 3350 17 gram 17 g PO DAILY PRN #255 grams 04/08/17 04/20/22 History oral powder packet (Miralax) insulin detemir U-100 100 unit/mL 75 units subcut BID 08/04/17 04/20/22 History (3 mL) subcutaneous pen (Levemir FlexTouch U-100 Insulin) cholecalciferol (vitamin D3) 25 1,000 unit PO DAILY 11/11/18 04/20/22 History mcg (1,000 unit) tablet (Vitamin D3) riboflavin (vitamin B2) 100 mg 400 mg PO BID 03/28/19 04/20/22 History tablet (Vitamin B-2) bisacodyl 5 mg tablet,delayed 5 mg PO DAILY PRN 04/17/19 04/20/22 History release (Dulcolax (bisacodyl)) pantoprazole 40 mg tablet,delayed 40 mg PO DAILY #30 tabs 04/25/19 04/20/22 Rx release (Protonix) metoprolol succinate 50 mg 50 mg PO DAILY 05/10/19 04/20/22 History tablet,extended release 24 hr acetylcysteine 600 mg capsule (NAC) 600 mg PO BID 05/16/19 04/20/22 History citalopram 20 mg tablet 10 mg PO DAILY 05/16/19 04/20/22 History lisinopril 20 mg tablet 30 mg PO DAILY 05/24/19 04/20/22 History diclofenac sodium 1 % topical gel 1 applic topical DIRECTED 04/30/20 04/20/22 History (Voltaren) ranolazine 500 mg tablet,extended 500 mg PO BID 04/30/20 04/20/22 History release,12 hr (Ranexa) liraglutide 0.6 mg/0.1 mL (18 mg/3 1.8 mg subcut DAILY 06/19/20 04/20/22 History mL) subcutaneous pen injector (Victoza 2-Thanh) isosorbide mononitrate 60 mg 60 mg PO DAILY 09/18/20 04/20/22 History tablet,extended release 24 hr lidocaine 5 % topical patch 1 patch topical Q24H #4 ea 10/14/20 04/20/22 Rx (Lidoderm) methocarbamol 500 mg tablet 500 mg PO Q6H PRN muscle spasm #14 11/07/20 04/20/22 Rx tabs triamcinolone acetonide 0.1 % 1 applic topical BID 11/13/20 04/20/22 History topical ointment docusate sodium 100 mg capsule 100 mg PO DAILY PRN 01/07/21 04/20/22 History (Colace) topiramate 25 mg tablet 25 mg PO HS 01/09/21 04/20/22 History topiramate 50 mg tablet 50 mg PO HS 01/09/21 04/20/22 History gabapentin 300 mg capsule 300 mg PO BID 02/04/21 04/20/22 History carboxymethylcellulose sodium 0.5 1 - 2 drp ophthalmic (eye) QID PRN 03/27/21 04/20/22 History % eye drops (Refresh Tears) phenazopyridine 200 mg tablet 200 mg PO TID PRN 03/27/21 04/20/22 History magnesium 200 mg tablet 400 mg PO DAILY 06/07/21 04/20/22 History tramadol 50 mg tablet 50 mg PO Q6H PRN PRN pain 06/19/21 04/20/22 History amlodipine 2.5 mg tablet 2.5 mg PO DAILY 08/18/21 04/20/22 History finasteride 5 mg tablet 5 mg PO DAILY #90 tabs 08/18/21 04/20/22 Rx mupirocin 2 % topical ointment 1 applic topical BID 09/14/21 04/20/22 History potassium chloride 10 mEq 10 meq PO DAILY 09/14/21 04/20/22 History capsule,extended release Exam Narrative Exam Narrative: General: Very pleasant [place]auasian male who appears comfortable in bed, A&Ox3, NAD Neurological: A&Ox3, occasional difficulty finding words Psychiatric: Appropriate speech pattern/content Skin: Visible skin intact HEENT: Atraumatic, normocephalic, EOMI, MMM, clear oropharynx, white film and dark discoloration of the tongue, Cardiovascular: RRR, no m/r/g Lungs: CTAB Gastrointestinal: soft, nontender, nondistended Genitourinary: deferred Extremities: no edema BLEs, 1+ pedal pulses B, no lesions on B feet, no clubbing/cyanosis Results Imaging Additional studies: CXR; No acute? findings. CTA chest/abdomen/pelvis: No acute abnormality in the chest abdomen or pelvis. EKG: ST, HR 96, diffuse T wave flattening, unchanged Labs Result diagrams: 04/20/22 13:08 04/20/22 13:08 Labs: Laboratory Results - last 24 hr 04/20/22 04/20/22 04/20/22 13:08 13:08 13:08 WBC 5.60 RBC 4.28 L Hgb 12.4 L Hct 37.0 L MCV 86 MCH 29.0 MCHC 33.5 RDW 14.5 H Plt Count 158 MPV 9.1 Immature Gran % 0.2 Neutrophils % 71.3 Lymphocytes % 15.2 Monocytes % 7.0 Eosinophils % 5.0 Basophils % 1.3 Nucleated RBC % 0.0 Absolute Neutrophils 4.00 Absolute Lymphocytes 0.85 L Absolute Monocytes 0.39 Absolute Eosinophils 0.28 Absolute Basophils 0.07 D-Dimer 395 Sodium 136 Potassium 4.0 Chloride 106 Carbon Dioxide 22.4 Anion Gap 7.6 BUN 15 Creatinine 1.4 H Est GFR (CKD-EPI 2020) 53.40 Glucose 209 H Calcium 8.8 Magnesium 2.2 Total Bilirubin 0.4 AST 10 L ALT 17 Alkaline Phosphatase 88 Troponin I < 50 NT-Pro-B Natriuret Pep Total Protein 7.0 Albumin 4.0 COVID-19 Source SARS-CoV-2 (PCR) 04/20/22 04/20/22 04/20/22 13:08 16:16 17:40 WBC RBC Hgb Hct MCV MCH MCHC RDW Plt Count MPV Immature Gran % Neutrophils % Lymphocytes % Monocytes % Eosinophils % Basophils % Nucleated RBC % Absolute Neutrophils Absolute Lymphocytes Absolute Monocytes Absolute Eosinophils Absolute Basophils D-Dimer Sodium Potassium Chloride Carbon Dioxide Anion Gap BUN Creatinine Est GFR (CKD-EPI 2020) Glucose Calcium Magnesium Total Bilirubin AST ALT Alkaline Phosphatase Troponin I < 50 NT-Pro-B Natriuret Pep 113 Total Protein Albumin COVID-19 Source Nasal/Nares SARS-CoV-2 (PCR) Negative Last Vital Signs Temp 36.2 C L 04/20/22 12:30 Pulse 94 H 04/20/22 18:21 Resp 16 04/20/22 18:21 BP 165/95 H 04/20/22 18:21 Pulse Ox 99 04/20/22 12:30
[2022-04-20 21:15] LABS: Troponin I < 50 ng/L (<or=60)
[2022-04-20] MEDS: Acetaminophen 325 MG TAB PO (21:44)
[2022-04-20] MEDS: Lidocaine 5% Patch 1 PATCH TP (21:45)
[2022-04-20] MEDS: traMADol 50 MG TAB PO (21:45)
[2022-04-20] MEDS: Senna TAB 1 TAB PO (21:51)
[2022-04-20] MEDS: Nystatin 500000 UNITS/5 ML SUSP 5ML CUP PO (21:51)
[2022-04-20] MEDS: Docusate Sodium 100 MG CAP PO (21:52)
[2022-04-20] MEDS: Topiramate 25 MG TAB 75 MG PO (22:30)
[2022-04-20] MEDS: QUEtiapine 300 MG TAB PO (23:59)
[2022-04-21] VITALS (13 sets, daily range): BP systolic 103–158; BP diastolic 61–92; PULSE 85–117; RESP 11–19; TEMP 36.5–36.7; O2SAT 93–97
[2022-04-21] MEDS: Nystatin 500000 UNITS/5 ML SUSP 5ML CUP PO ×4 (05:29→21:07)
[2022-04-21 06:14] LABS: Abs Immature Grans 0.01 10^3/uL (0.0-0.06); Absolute Basophil Count 0.05 10^3/uL (0.0-0.2); Absolute Eosinophil Count 0.29 10^3/uL (0.0-0.7); Absolute Lymphocyte Count 1.18 10^3/uL (1.2-3.4); Absolute Monocyte Count 0.52 10^3/uL (0.1-0.8); Absolute Neutrophil Count 3.06 10^3/uL (1.2-6.7); Eosinophils % 5.7; HCT 35.5 % (40.0-50.0); HGB 12.2 g/dL (13.5-17.5); Immature Grans % 0.2; Lymphocytes % 23.1; MCH 29.1 pg (27.0-33.0); MCHC 34.4 % (32.0-36.0); MCV 85 fL (80-95); MPV 9.3 fL (8.0-11.0); Monocytes % 10.2; Neutrophils % 59.8; Platelet Count 160 10^3/uL (130-400); RBC 4.19 10^6/uL (4.36-5.78); RDW 14.2 % (11.8-14.1); RDW-SD 43.9 fL; WBC 5.11 10^3/uL (4.4-10.8)
[2022-04-21 06:40] LABS: Anion Gap 12.3 mmol/L (3-11); BUN 15 mg/dL (7-18); CO2 20.7 mmol/L (21.0-32.0); CREATININE 1.2 mg/dL (0.70-1.30); Calcium 8.4 mg/dL (8.5-10.1); Calculated LDL 10 mg/dL (<100); Chloride 107 mmol/L (98-107); Cholesterol 102 mg/dL (<200); Estimated GFR 64.25 (mL/min/1.73m2); Glucose 154 mg/dL (74-106); HDL Cholesterol 34 mg/dL (40-60); Potassium 3.7 mmol/L (3.5-5.1); Sodium 140 mmol/L (136-145); Triglyceride 293 mg/dL (<150)
--- NOTE | 2022-04-21 08:00 | DI.US_ITS ---
APPROVED REPORT EXAM: Comprehensive 2D, Doppler, and color-flow Echocardiogram Patient Location: In-Patient Room/Bed: [id number] Timber Girdler: Candy Diaz RDCS (AE) Indications: Chest pain, CAD, CABG Other Information Study Quality: Adequate. Technically limited study due to body habitus, inability to position patient exam done bedside supine. Conclusion Normal left ventricular wall thickness and chamber size. Estimated ejection fraction is 55%. Wall m otion is normal Normal right ventricular size and systolic function Both atria are normal in size The aortic valve is trileaflet and sclerotic with trace regurgitation Mild mitral annular calcification. Trace to mild mitral regurgitation Normal tricuspid valve with trace regurgitation Dilated ascending aorta measuring 3.77 cm Wall motion Left Ventricle The left ventricle is normal size. The left ventricular systolic function is normal. The left ventric ular ejection fraction is within the normal range. There is normal left ventricular wall thickness. T here is normal LV segmental wall motion. There is no ventricular septal defect visualized. LVEF is 55 %. Right Ventricle The right ventricle is normal size. The right ventricular systolic function is normal. Atria The left atrium size is normal. The right atrium size is normal. The interatrial septum is intact wit h no evidence for an atrial septal defect. Aortic Valve The Aortic valve is sclerotic. Aortic valve is trileaflet. There is no aortic valvular stenosis. Trac e aortic regurgitation. Mitral Valve Mild mitral annular calcification. No evidence of mitral valve stenosis. Trace to mild mitral regurgi tation. Tricuspid Valve The tricuspid valve is normal in structure. There is no tricuspid valve stenosis. Trace tricuspid reg urgitation. Pulmonic Valve The pulmonary valve is normal in structure. There is no pulmonic valvular stenosis. There is no pulmo meli valvular regurgitation. Great Vessels The aortic root is normal in size. The ascending aorta is mildly dilated. Aortic arch is not well vis ualized. IVC is normal in size and collapses >50% with inspiration. Pericardium There is no pericardial effusion. 2D Dimensions IVSD d PLAX 1.07 cm M: 0.6-1.2 LV Vol A2C d MOD 85.7 mL LVPW d PLAX 1.09 cm M: 0.6 - 1.2 LV Vol A4C d MOD 102.0 mL LVID d PLAX 4.21 cm M: 4.2 - 5.8 LA vol/ BSA A4C s A-L 10.5 mL/m2 LVDs 2.95 cm M: 2.5 - 4.0 LA Area A4C s MOD 10.54 cm2 Ao Root d 3.75 cm M: 3.1 - 3.7 LV EF A4C MOD 55.5 % Ao Asc Diam d 3.77 cm M: 2.6 - 3.4 LV EF A2C MOD 55.7 % LV EF Teichholz 57.1 % LV EF Biplane MOD 55.0 % LVEF ([facility]) 54.97 % M: 52 - 72 SV 52.37 mL LV Volume 70.51 mL M: 62 - 150 SV Index 25.14 mL/m2 LV Volume Index 33.89 mL/m2 M: 34 - 74 LV Vol Biplane MOD 95.3 mL FS 29.60 % M-Mode TAPSE 1.22 cm (M/F) >1.7 LV Diastology MV E' medial 0.053 (>0.07 m/s) E/A Ratio 0.6 LV E/e MED 9.60 (<14) MV E Vmax 0.51 (0.4-1.3 m/s) MV E' lateral 0.077 (>0.1 m/s) MV A Vmax 0.80 (0.4-1.3 m/s) LV E/e LAT 6.55 (<14) MV E/A Ratio 0.62 MV E/E' medial 9.60 MV E/E' lateral 6.58 Aortic Valve LVOT Area 2.95 cm2 AoV Area Vmax 2.90 cm2 LVOT Vmax 1.00 m/s AoV Area/ BSA (Vmax) 1.39 cm2/m2 LVOT Mean Shemar. 0.67 m/s EVELYNE Mean Shemar. 2.88 cm2 LVOT Peak Grad 4.0 mmHg EVELYNE Mean Shemar. Index 1.38 cm2/m2 LVOT Mean Grad 2.1 mmHg LVOT VTI 0.184 m LVOT Diam s 1.90 cm AoV Vmax 1.02 m/s Velocity Ratio 0.98 AoV Mean Shemar. 0.69 m/s AoV Peak Grad 4.2 mmHg LVOT SV 54.35 mL AoV Mean Grad 2.2 mmHg AoV VTI 0.166 m AoV Area VTI 3.27 cm2 AoV Area/ BSA (VTI) 1.57 cm/m2 Mitral Valve MV DT 283 (160-240 msec) MV PHT 82 msec MV Area PHT 2.68 cm2 MV VTI 0.183 m MV Area VTI 2.98 (4.0-6.0 cm2) Pulmonary Valve PV Vmax 0.90 (0.5-1.5 m/s) RVOT Peak Gr. 1.69 mmHg PV Peak Grad 3.2 mmHg RVOT Mean Gr. 0.85 mmHg PV Mean Grad 1.6 mmHg RVOT VTI 0.123 m PV VTI 0.162 m RVOT Vmax 0.65 m/s Tricuspid Valve TR Peak Grad 21.4 mmHg TR Vmax 2.32 m/s RA Pressure 3.00 mmHg RVSP (TR) 24.5 mmHg
--- NOTE | 2022-04-21 08:32 | CCONE_ITS ---
Date of service: 04/21/22 Time of Service: 08:32 Assessment and Plan Assessment and plan (1) Chest pain: Status: Acute Assessment and plan: Patient's symptom of chest pain and reproducibility on palpation indicate that this is a musculoskeletal problem. His symptoms are not cardiac. I would recommend treating him with analgesics and possibly anti-inflammatories. Intravenous nitroglycerin should be discontinued (2) CAD (coronary artery disease): Status: None Assessment and plan: As above, current symptoms are consistent with a musculoskeletal etiology. I would leave it up to the hospitalist to decide if they think myocardial perfusion imaging would regional climate change analyst Qualifiers: Coronary Disease-Associated Artery/Lesion type: [place] artery [place] vs. transplanted heart: [place] heart Associated angina: with unspecified angina Qualified Code(s): I25.119 - Atherosclerotic heart disease of [place] coronary artery with unspecified angina pectoris History of Present Illness History of Present Illness Chief Complaint: Chest pain Narrative: This is a 71-year-old man with a history of known coronary artery disease who presents to the hospital because of chest pain. Chest pain is located to his left upper chest is described as sharp, it is worse with inspiration. There is some radiation to his left arm. It is worse with movement. It is reproducible by palpation. He took nitroglycerin on the day of admission but the pain would come and go. He says it lasted all day. There has been no enzyme evidence of myocardial necrosis. His EKG showed early R wave transition and nondiagnostic ST-T abnormalities He has a history of coronary artery disease with coronary artery bypass grafting done in 2016. He had a HOPE to the LAD and a saphenous vein graft to the right coronary artery. In December 2020 he underwent repeat cardiac catheterization because of atypical chest pain. His grafts were patent to the LAD and the RCA he had no additional obstructive coronary disease. He has been managed medically. There was a question that he might have coronary artery vasospasm and on that basis he was prescribed amlodipine Review of Systems Cardiovascular Cardiovascular: Reports as per HPI, Reports chest pain at rest and Reports dyspnea Respiratory Respiratory: Reports dyspnea PFSH All Active Problems (Updated 04/20/22 @ 22:45 by Christopher Lua DO) Chest pain (Acute) Nail dystrophy (Acute) Low back pain (Acute) Lumbar radiculopathy (Acute) Compression fracture of lumbar vertebra (Acute) Viral URI with cough (Acute) Chest pain (Acute) Unstable angina (Acute) UTI (urinary tract infection) (Acute) UTI (urinary tract infection) (Acute) Arthritis of right hip (Acute) Contusion of right hip (Acute) Left rib fracture (Acute) Rib pain on left side (Acute) Chest wall muscle strain (Acute) History of rib fracture (Acute) Head trauma (Acute) Discharge planning issues (Acute) DVT prophylaxis (Acute) Chronic subdural hematoma (Chronic) Chest pain (Acute) Pituitary abnormality (Acute) Neck pain (Acute) Hand weakness (Acute) Cubital tunnel syndrome on right (Acute) Lower urinary tract symptoms (Chronic) Lumbar radiculitis (Acute) Lumbosacral spondylosis without myelopathy (Acute) Chronic rhinitis (Chronic) Atypical chest pain (Acute) Musculoskeletal; Negative NPI 04/29/2018 Urethral stricture (Acute 08/20/15) Sensory hearing loss, bilateral (Chronic 04/09/14) Sensorineural hearing loss, asymmetrical (Chronic 05/12/13) Postnasal drip (Chronic 05/13/15) Mild cognitive impairment (Chronic 01/31/18) Hypertrophy of nasal turbinates (Chronic 08/05/15) 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) Deviated nasal septum (Chronic 08/05/15) Thoracic spondylosis without myelopathy (Chronic) Coronary artery disease (Chronic) Hyperlipidemia (Chronic) Diabetes mellitus type 2 in obese (Chronic) Medical History Anemia, iron deficiency Chronic low back pain Colon polyps Constipation, chronic Depression Diastasis recti DM type 2 (diabetes mellitus, type 2) Fatty liver GERD (gastroesophageal reflux disease) Gout H/O alcohol abuse Headaches due to 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 Hx of deep venous thrombosis Hx of traumatic brain injury Hyperlipidemia Hypertension Hypothyroidism Knee pain, right Migraine headache Mild dementia MRSA infection Obstructive sleep apnea Pain in joint of right foot Rathke's pouch cyst Recurrent UTI Rhinorrhea Right sided weakness Tinea pedis Urethral stricture Vitamin D deficiency Volvulus of cecum Surgical History Appendectomy (06/01/16) Colonoscopy - MAC 2009-5year f/u 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 electroconvulsive therapy Extraction of cataract facial lesion removal Repair of inguinal hernia (08/05/17) right inguinal hernia repair by Dr Arroyo on 08/05/17 Repair of umbilical hernia Social History Smoking/Tobacco Use Status: Never Smoking risk assessment performed?: Yes Alcohol Intake: former Drug use: Never Substance use type: does not use Household members: spouse Housing: house Pets and animals: Yes Pets and animals: dog(s) Do you feel safe at home: Yes Do you feel safe in your relationship?: Yes Exam Const Other: Obese lying in bed no acute distress Neck Other: Unable to assess JVP carotid pulsations are normal Chest Other: Patient has reproducible tenderness in the left upper chest which duplicates his presenting complaint. He is rather exquisitely sensitive to palpation Cardio Other: Heart is regular normal S1-S2 physiologically split no murmur or gallop Extrem Other: No peripheral edema Results Last Vital Signs Temp 36.5 C 04/21/22 04:00 Pulse 85 04/21/22 07:00 Resp 11 L 04/21/22 07:00 BP 126/69 04/21/22 07:00 Pulse Ox 94 04/21/22 07:00 Labs Result diagrams: 04/21/22 05:27 04/21/22 05:27 Labs: Laboratory Results - last 24 hr 04/20/22 04/20/22 04/20/22 13:08 13:08 13:08 WBC 5.60 RBC 4.28 L Hgb 12.4 L Hct 37.0 L MCV 86 MCH 29.0 MCHC 33.5 RDW 14.5 H Plt Count 158 MPV 9.1 Immature Gran % 0.2 Neutrophils % 71.3 Lymphocytes % 15.2 Monocytes % 7.0 Eosinophils % 5.0 Basophils % 1.3 Nucleated RBC % 0.0 Absolute Neutrophils 4.00 Absolute Lymphocytes 0.85 L Absolute Monocytes 0.39 Absolute Eosinophils 0.28 Absolute Basophils 0.07 D-Dimer 395 Sodium 136 Potassium 4.0 Chloride 106 Carbon Dioxide 22.4 Anion Gap 7.6 BUN 15 Creatinine 1.4 H Est GFR (CKD-EPI 2020) 53.40 Glucose 209 H Calcium 8.8 Magnesium 2.2 Total Bilirubin 0.4 AST 10 L ALT 17 Alkaline Phosphatase 88 Troponin I < 50 NT-Pro-B Natriuret Pep Total Protein 7.0 Albumin 4.0 Triglycerides Total Cholesterol LDL Cholesterol, Calc HDL Cholesterol COVID-19 Source SARS-CoV-2 (PCR) 04/20/22 04/20/22 04/20/22 13:08 16:16 17:40 WBC RBC Hgb Hct MCV MCH MCHC RDW Plt Count MPV Immature Gran % Neutrophils % Lymphocytes % Monocytes % Eosinophils % Basophils % Nucleated RBC % Absolute Neutrophils Absolute Lymphocytes Absolute Monocytes Absolute Eosinophils Absolute Basophils D-Dimer Sodium Potassium Chloride Carbon Dioxide Anion Gap BUN Creatinine Est GFR (CKD-EPI 2020) Glucose Calcium Magnesium Total Bilirubin AST ALT Alkaline Phosphatase Troponin I < 50 NT-Pro-B Natriuret Pep 113 Total Protein Albumin Triglycerides Total Cholesterol LDL Cholesterol, Calc HDL Cholesterol COVID-19 Source Nasal/Nares SARS-CoV-2 (PCR) Negative 04/20/22 04/21/22 04/21/22 20:35 05:27 05:27 WBC 5.11 RBC 4.19 L Hgb 12.2 L Hct 35.5 L MCV 85 MCH 29.1 MCHC 34.4 RDW 14.2 H Plt Count 160 MPV 9.3 Immature Gran % 0.2 Neutrophils % 59.8 Lymphocytes % 23.1 Monocytes % 10.2 Eosinophils % 5.7 Basophils % 1.0 Nucleated RBC % 0.0 Absolute Neutrophils 3.06 Absolute Lymphocytes 1.18 L Absolute Monocytes 0.52 Absolute Eosinophils 0.29 Absolute Basophils 0.05 D-Dimer Sodium 140 Potassium 3.7 Chloride 107 Carbon Dioxide 20.7 L Anion Gap 12.3 H BUN 15 Creatinine 1.2 Est GFR (CKD-EPI 2020) 64.25 Glucose 154 H Calcium 8.4 L Magnesium 2.0 Total Bilirubin AST ALT Alkaline Phosphatase Troponin I < 50 NT-Pro-B Natriuret Pep Total Protein Albumin Triglycerides 293 H Total Cholesterol 102 LDL Cholesterol, Calc 10 HDL Cholesterol 34 L COVID-19 Source SARS-CoV-2 (PCR)
[2022-04-21] MEDS: Polyethylene Glycol 3350 17 GM PACKET PO (08:39)
[2022-04-21] MEDS: Isosorbide Mononitrate 60 MG TABCR PO (08:39)
--- NOTE | 2022-04-21 08:39 | PGE_ITS ---
Date of Service Date of service: 04/21/22 Time of Service: 08:39 Assessment and Plan Assessment and plan (1) Chest pain: Status: Acute Assessment and plan: Atypical chest pain more consistent with musculoskeletal. Trial of topical NSAID such as Voltaren. Use tramadol as needed. Increases activity to ambulation with assistance. Transfer out of ICU to medical/surgical floor. Professional time spent interviewing and examining patient, discussion of goals of care with hospital team (care management, nursing and consulting professionals) was 30 minutes. (2) CAD (coronary artery disease): Status: None Assessment and plan: Continues antianginal medications include isosorbide mono nitrate at 60 mg daily along with Ranexa 500 g twice daily. Continue vasodilator such as amlodipine 2 5 mg daily continue his beta-blockers Toprol-XL 50 g daily the and continue his rosuvastatin milligrams daily dose. Qualifiers: Coronary Disease-Associated Artery/Lesion type: [place] artery [place] vs. transplanted heart: [place] heart Associated angina: with unspecified angina Qualified Code(s): I25.119 - Atherosclerotic heart disease of [place] coronary artery with unspecified angina pectoris (3) Diabetes mellitus type 2 in obese: Status: Chronic Assessment and plan: Resume his home dose of Levemir resume oral intake with a diabetic/cardiac diet. Continue sliding scale coverage. (4) Hyperlipidemia: Status: Chronic Assessment and plan: Continue statin. Check fasting lipid panel. (5) Hx of traumatic brain injury: Assessment and plan: Will avoid antiplatelet tx/anticoagulation/chemical DVT ppx. We are clarifying with the patient's how he takes his topiramate. (6) Constipation, chronic: Assessment and plan: bowel regimen (7) DVT prophylaxis: Status: Acute Assessment and plan: SCDs. Chemical DVT ppx is contraindicated in this patient with a h/o brain bleeding (8) Discharge planning issues: Status: Acute Assessment and plan: Patient remains full code. We will transfer to the medical/surgical floor increase his activity and plan for discharge in the next 24 hours. Subjective Subjective Interval history since last seen: 71-year-old male with a history of coronary artery disease, status post CABG, IDDM 2, hyperlipidemia, TBI and brain bleed unable to take antiplatelet therapy or heparin who presented with nonexertional left-sided chest and arm pain that woke him up from sleep yesterday.'s been going on for the past 3 days waxing and waning. Pain is reproducible with palpation however he reports that nitroglycerin improved his chest pain. EKG shows sinus rhythm with no acute ischemic changes. His troponins have been negative. He was seen in consultation by Dr. Cristina this morning feels the symptoms are noncardiac and she recommend treat with analgesics and possibly anti-inflammatories and discontinuation nitroglycerin drip. As such patient will receive his Imdur this morning and the nitroglycerin drip will be discontinued. I will try him on topical NSAID such as Voltaren gel over his left shoulder and anterior chest. Patient be transferred out of the intensive care unit to the medical/surgical floor and we will increase his activity to ambulation. Exam Narrative Exam Narrative: Elderly white male lying in bed semisolid position alert and oriented person place time circumstance. He has reproducible chest wall pain with palpation over his left anterior chest and left shoulder also reproduced with abduction and circumduction of his left shoulder. Lungs are clear to auscultation Heart is regular rate and rhythm without appreciable murmur rub or gallop Abdomen soft nondistended Extremities without edema Objective Last Vital Signs Temp 36.5 C 04/21/22 04:00 Pulse 85 04/21/22 07:00 Resp 11 L 04/21/22 07:00 BP 126/69 04/21/22 07:00 Pulse Ox 94 04/21/22 07:00 Laboratory Results - last 24 hr 04/20/22 04/20/22 04/20/22 13:08 13:08 13:08 WBC 5.60 RBC 4.28 L Hgb 12.4 L Hct 37.0 L MCV 86 MCH 29.0 MCHC 33.5 RDW 14.5 H Plt Count 158 MPV 9.1 Immature Gran % 0.2 Neutrophils % 71.3 Lymphocytes % 15.2 Monocytes % 7.0 Eosinophils % 5.0 Basophils % 1.3 Nucleated RBC % 0.0 Absolute Neutrophils 4.00 Absolute Lymphocytes 0.85 L Absolute Monocytes 0.39 Absolute Eosinophils 0.28 Absolute Basophils 0.07 D-Dimer 395 Sodium 136 Potassium 4.0 Chloride 106 Carbon Dioxide 22.4 Anion Gap 7.6 BUN 15 Creatinine 1.4 H Est GFR (CKD-EPI 2020) 53.40 Glucose 209 H Calcium 8.8 Magnesium 2.2 Total Bilirubin 0.4 AST 10 L ALT 17 Alkaline Phosphatase 88 Troponin I < 50 NT-Pro-B Natriuret Pep Total Protein 7.0 Albumin 4.0 Triglycerides Total Cholesterol LDL Cholesterol, Calc HDL Cholesterol COVID-19 Source SARS-CoV-2 (PCR) 04/20/22 04/20/22 04/20/22 13:08 16:16 17:40 WBC RBC Hgb Hct MCV MCH MCHC RDW Plt Count MPV Immature Gran % Neutrophils % Lymphocytes % Monocytes % Eosinophils % Basophils % Nucleated RBC % Absolute Neutrophils Absolute Lymphocytes Absolute Monocytes Absolute Eosinophils Absolute Basophils D-Dimer Sodium Potassium Chloride Carbon Dioxide Anion Gap BUN Creatinine Est GFR (CKD-EPI 2020) Glucose Calcium Magnesium Total Bilirubin AST ALT Alkaline Phosphatase Troponin I < 50 NT-Pro-B Natriuret Pep 113 Total Protein Albumin Triglycerides Total Cholesterol LDL Cholesterol, Calc HDL Cholesterol COVID-19 Source Nasal/Nares SARS-CoV-2 (PCR) Negative 04/20/22 04/21/22 04/21/22 20:35 05:27 05:27 WBC 5.11 RBC 4.19 L Hgb 12.2 L Hct 35.5 L MCV 85 MCH 29.1 MCHC 34.4 RDW 14.2 H Plt Count 160 MPV 9.3 Immature Gran % 0.2 Neutrophils % 59.8 Lymphocytes % 23.1 Monocytes % 10.2 Eosinophils % 5.7 Basophils % 1.0 Nucleated RBC % 0.0 Absolute Neutrophils 3.06 Absolute Lymphocytes 1.18 L Absolute Monocytes 0.52 Absolute Eosinophils 0.29 Absolute Basophils 0.05 D-Dimer Sodium 140 Potassium 3.7 Chloride 107 Carbon Dioxide 20.7 L Anion Gap 12.3 H BUN 15 Creatinine 1.2 Est GFR (CKD-EPI 2020) 64.25 Glucose 154 H Calcium 8.4 L Magnesium 2.0 Total Bilirubin AST ALT Alkaline Phosphatase Troponin I < 50 NT-Pro-B Natriuret Pep Total Protein Albumin Triglycerides 293 H Total Cholesterol 102 LDL Cholesterol, Calc 10 HDL Cholesterol 34 L COVID-19 Source SARS-CoV-2 (PCR)
[2022-04-21] MEDS: Metoprolol CR 50 MG TABCR PO (08:41)
[2022-04-21] MEDS: Potassium Chloride 10 MEQ CAPCR PO (08:41)
[2022-04-21] MEDS: Gabapentin 300 MG CAP PO ×2 (08:41→21:06)
[2022-04-21] MEDS: Magnesium Oxide 400 MG TAB PO (08:41)
[2022-04-21] MEDS: amLODIPine 2.5 MG TAB PO (08:42)
[2022-04-21] MEDS: Cholecalciferol (Vitamin D3) 1,000 UNIT TAB 1000 UNITS PO (08:42)
[2022-04-21] MEDS: Bisacodyl 5 MG TABEC PO (08:43)
[2022-04-21] MEDS: Senna TAB 1 TAB PO (08:43)
[2022-04-21] MEDS: Pantoprazole 40 MG TABCR PO (08:43)
[2022-04-21] MEDS: Lisinopril 20 MG TAB 30 MG PO (08:44)
[2022-04-21] MEDS: Docusate Sodium 100 MG CAP PO (08:44)
[2022-04-21] MEDS: Levothyroxine 50 MCG TAB PO (08:45)
[2022-04-21] MEDS: Citalopram 20 MG TAB 10 MG PO (08:45)
[2022-04-21] MEDS: Acetylcysteine 600 MG CAP PO ×2 (08:51→21:06)
[2022-04-21] MEDS: Finasteride 5 MG TAB PO (08:51)
[2022-04-21] MEDS: Insulin Aspart 300 UNITS/3 ML PEN SC ×4 (08:53→21:09)
--- NOTE | 2022-04-21 10:04 | PDOC.CMIN ---
- If Service Date Differs Date of service: 04/21/22 Time of Service: 10:04 Care Management Initial Assess REASON FOR HOSPITALIZATION:: Chest Pain, Unstable Angina PAST MEDICAL HISTORY/PAST SURGICAL HISTORY:: Medical History . Anemia, iron deficiency. Chronic low back pain. Colon polyps. Constipation, chronic. Depression. Diastasis recti. DM type 2 (diabetes mellitus, type 2). Fatty liver. GERD (gastroesophageal reflux disease). Gout. H/O alcohol abuse. Headaches due to 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. Hx of deep venous thrombosis. Hx of traumatic brain injury. Hyperlipidemia. Hypertension. Hypothyroidism. Knee pain, right. Migraine headache. Mild dementia. MRSA infection. Obstructive sleep apnea. Pain in joint of right foot. Rathke's pouch cyst. Recurrent UTI. Rhinorrhea. Right sided weakness. Tinea pedis. Urethral stricture. Vitamin D deficiency. Volvulus. of cecum. Surgical History . Appendectomy (06/01/16). Colonoscopy - MAC. 2009-5year f/u. Coronary Artery Bypass Gaft (CABG). 04/2016. electroconvulsive therapy. Extraction of cataract. facial lesion removal. Repair of inguinal hernia (08/05/17). right inguinal hernia repair by Dr Arroyo on 08/05/17. Repair of umbilical hernia PREVIOUS FUNCTIONAL STATUS/SOCIAL/FAMILY SUPPORTS:: Fredo lives in [facility] with his of 50 years, Brittany. Their adult son, Andrew also lives at home with them. Fredo is retired and independent with ADL's. He uses a walker and a quad cane for ambulation and has a urinal. Fredo does not receive any services at home but his son and provide a lot of support. He no longer drives but his and son provide transportation. ADVANCE DIRECTIVES:: On file. Brittany ASKEW Has patient been provided with info about the portal/API?: Yes Did the patient sign up for the portal?: No CODE STATUS:: Full Code INSURANCE COVERAGE / FINANCIAL ISSUES:: Medicare. [employer] CURRENT HOME/COMMUNITY SERVICES/EQUIPMENT:: walker, quad cane and urinal PRIMARY CARE PHYSICIAN:: Alisa Ramirez POTENTIAL DISCHARGE NEEDS:: ECHO, cardiology consult PATIENT/FAMILY EDUCATION NEEDS:: Review discharge instructions, discuss Ask Me Three. ANTICIPATED BARRIERS TO DISCHARGE:: None identified. TRANSPORTATION:: Via private vehicle with his . PLAN:: Fredo will discharge home when ready per MD. He will follow up with his PCP and plan of care as prescribed. He will transport via private vehicle with his .
--- NOTE | 2022-04-21 12:26 | W.INDIABCONS ---
Date of service: 04/21/22 Time of Service: 12:26 Diabetes Inpatient Consult Reason for Visit: dm DESCRIPTION/ASSESSMENT: Fredo was admitted to ICU with chest pain and unstable angina. PMH: Dm2, s/p CABG, TBI with hx of CAD, HLD. BMI wnl for age. Most recent A1C: 6.5% (10/2021) indicates well controlled DM on current home DM meds (levemir 75 u BID, victoza 1.8 mg qd). Currently NPO. Does not appear at nutritional risk. INTERVENTION: None needed at this time PLAN: Will monitor po intake, labs and weight and be available prn. Time Spent in Nutritional Counseling and Treatment: 0
--- NOTE | 2022-04-21 17:53 | CHAPLAIN ---
I visited with Andrew and his Madiha, a former [employer] employee. Andrew said he is waiting to hear the results of his EKG, but that the high school director told him it's not my heart. Andrew told me the story of how he was going to be sent home from [employer] ED in 2016 and then ended up going to [facility] for six stents after he told the ER doctor about Andrew's dog laying on his chest and appearing worried about Andrew. Andrew asked for a Bible and some reading glasses which he was given. He's taking an online course on the bible.
[2022-04-21] MEDS: Topiramate 25 MG TAB 75 MG PO (21:06)
[2022-04-21] MEDS: Rosuvastatin 10 MG TAB 20 MG PO (21:06)
[2022-04-21] MEDS: Diclofenac 1% Gel 100 GM TUBE TP (21:07)
[2022-04-21] MEDS: Lidocaine 5% Patch 1 PATCH TP (21:08)
[2022-04-21] MEDS: QUEtiapine 300 MG TAB PO (23:51)
[2022-04-22] VITALS (7 sets, daily range): BP systolic 115–162; BP diastolic 77–97; PULSE 85–92; RESP 16–18; TEMP 36.4–36.7; O2SAT 97–100
[2022-04-22] MEDS: Nystatin 500000 UNITS/5 ML SUSP 5ML CUP PO ×2 (05:46→10:33)
[2022-04-22] MEDS: Levothyroxine 50 MCG TAB PO (05:46)
[2022-04-22] MEDS: amLODIPine 2.5 MG TAB PO (08:15)
[2022-04-22] MEDS: Acetylcysteine 600 MG CAP PO (08:15)
[2022-04-22] MEDS: Citalopram 20 MG TAB 10 MG PO (08:16)
[2022-04-22] MEDS: Cholecalciferol (Vitamin D3) 1,000 UNIT TAB 1000 UNITS PO (08:16)
[2022-04-22] MEDS: Docusate Sodium 100 MG CAP PO (08:17)
[2022-04-22] MEDS: Gabapentin 300 MG CAP PO (08:18)
[2022-04-22] MEDS: Finasteride 5 MG TAB PO (08:18)
[2022-04-22] MEDS: Insulin Aspart 300 UNITS/3 ML PEN SC ×2 (08:19→12:12)
[2022-04-22] MEDS: Lisinopril 20 MG TAB 30 MG PO (08:21)
[2022-04-22] MEDS: Magnesium Oxide 400 MG TAB PO (08:22)
[2022-04-22] MEDS: Metoprolol CR 50 MG TABCR PO (08:23)
[2022-04-22] MEDS: Pantoprazole 40 MG TABCR PO (08:23)
[2022-04-22] MEDS: Normal Saline Flush 10 ML SYR IVP (08:25)
[2022-04-22] MEDS: Potassium Chloride 10 MEQ CAPCR PO (08:25)
[2022-04-22] MEDS: Isosorbide Mononitrate 60 MG TABCR PO (10:34)
--- NOTE | 2022-04-22 14:07 | DSE_ITS ---
Date of service: 04/22/22 Time of Service: 14:08 DS: Diagnosis Discharge Diagnosis (1) Chest pain: Status: Acute Asessment and Plan: Patient presented w/ non-exertional chest pain/left arm and shoulder pain that waxed and waned for 3 days and was reproducible w/ chest wall palpation. He has known CAD w/ CABG in 2015.?(HOPE to LAD, SVG to RCA).? In December 2020 he underwent repeat cardiac catheterization because of atypical chest pain.? His grafts were patent to the LAD and the RCA he had no additional obstructive coronary disease.? He has been managed medically and was put on norvasc for possible coronary spasm. On current admission he was put on NTG drip and serial tropon I levels were checked and were negative x 3 sets. EKG demonstrated NSR w/ nonspecific anterolateral repolarization changes which were similar to prior ECG's. He was weaned off NTG and treated w/ topical Voltaren gel. He was seen in consultation by Dr. Cristina from cardiology who felt that his chest pains were musculoskeletal in nature. She recommended NSAID's and to wean off his NTG drip. Patient was taken off his NTG drip and ambulated in the hospital by nursing w/ no exertional angina. He was disccharged home to follow up w/ his PCP and his publishing systems analyst. (2) CAD (coronary artery disease): Status: None Asessment and Plan: no change in his antiischemic meds (3) Diabetes mellitus type 2 in obese: Status: Chronic Asessment and Plan: no change in his home meds (4) Hyperlipidemia: Status: Chronic Asessment and Plan: no change in his home meds Discharge Plan Disposition Patient Disposition: HOME Condition: Stable Discharge Details Reason For Visit: Chest pain, ? Unstable Angina Admit Date/Time: 04/20/22 17:19 Admit Provider: Anette Duarte Attending Provider: Anette Duarte Primary Care Provider: Alisa Ramirez Home Meds and New Rx's Prescriptions: Continued triamcinolone acetonide 0.1 % Ointment 1 applic TOPICAL BID finasteride 5 mg tablet 5 mg PO DAILY Qty: 90 4RF phenazopyridine 200 mg Tablet 200 mg PO TID PRN Rx Instructions: For 2 days carboxymethylcellulose sodium [Refresh Tears] 0.5 % Drops 1 - 2 drp OPHTHALMIC (EYE) QID PRN acetylcysteine [NAC] 600 mg capsule 600 mg PO BID bisacodyl [Dulcolax (bisacodyl)] 5 mg tablet,delayed release (DR/EC) 5 mg PO DAILY PRN metoprolol succinate 50 mg tablet extended release 24 hr 50 mg PO DAILY citalopram 20 mg tablet 10 mg PO DAILY diclofenac sodium [Voltaren] 1 % gel 1 applic topical DIRECTED Rx Instructions: apply to single elbow, wrist or hand; for hand includes palm/fingers/back of hand ranolazine [Ranexa] 500 mg tablet extended release 12 hr 500 mg PO BID polyethylene glycol 3350 [Miralax] 17 GM powder in packet 17 g PO DAILY PRNQty: 255 nitroglycerin [Nitrostat] 0.4 MG tablet, sublingual 0.4 mg Sublingual as directed Levemir FlexTouch U-100 Insuln 100 UNIT/1 ML insulin pen 75 units subcut BID Rx Instructions: If blood sugar is frequently over 140 may go back to 80 units BID riboflavin (vitamin B2) [Vitamin B-2] 100 mg tablet 400 mg PO BID levothyroxine 50 MCG tablet 50 mcg PO DAILY@0730 quetiapine [Seroquel] 300 MG tablet 300 mg PO HS rosuvastatin [Crestor] 20 MG tablet 20 mg PO HS lisinopril 20 mg Tablet 30 mg PO DAILY isosorbide mononitrate 60 mg tablet extended release 24 hr 60 mg PO DAILY Rx Instructions: TAKE ALONG WITH 30MG TAB FOR TOTAL DAILY DOSE OF 90MG lidocaine [Lidoderm] 1 PATCH patch 1 patch Topical Q24H Qty: 4 0RF methocarbamol 500 mg tablet 500 mg PO Q6H PRN (Reason: muscle spasm) Qty: 14 0RF docusate sodium [Colace] 100 mg Capsule 100 mg PO DAILY PRN topiramate 25 mg tablet 25 mg PO HS Label Comments: TAKE 1 TABLET BY MOUTH AT BEDTIME topiramate 50 mg tablet 50 mg PO HS Label Comments: TAKE 1 TABLET BY MOUTH ONCE DAILY tramadol 50 mg tablet 50 mg PO Q6H PRN PRN (Reason: pain) amlodipine 2.5 mg tablet 2.5 mg PO DAILY gabapentin 300 mg capsule 300 mg PO BID Rx Instructions: FOR DIABETIC FOOT NEUROPATHY cholecalciferol (vitamin D3) [Vitamin D3] 1,000 unit Tablet 1,000 unit PO DAILY pantoprazole [Protonix] 40 mg tablet,delayed release (DR/EC) 40 mg PO DAILY Qty: 30 0RF Victoza 2-Thanh 0.6 mg/0.1 mL (18 mg/3 mL) pen injector 1.8 mg SUBCUT DAILY magnesium 200 mg Tablet 400 mg PO DAILY mupirocin 2 % Ointment 1 applic TOPICAL BID potassium chloride 10 mEq Capsule, Extended Release 10 meq PO DAILY No Action metformin 1,000 mg tablet 1,000 mg PO BID allopurinol 300 mg tablet 300 mg PO DAILY triamcinolone acetonide 0.1 % cream 1 applic topical BID cod liver oil Capsule 1 cap PO DAILY Discharge Instructions Instructions: Angina (DC), Chest Pain (GEN), Costochondritis (DC) Stand Alone Forms: Nursing Discharge Form Referrals: Gabriella Cristina MD [ [facility] STAFF PHYSICIAN] - 04/28/22 10:40 am Alisa Ramirez MD [Primary Care Provider] - 05/04/22 11:00 am Activity:: Activity as Tolerated Equipment/Supplies:: No Equipment Needed Diet:: Carb Counting Discharge Orders Discharge Orders: Discharge Order (Routine); Ordered 04/22/22 Ordered By: Unruly Eller Discharge Data Discharge Date/Time-TO BE ENTERED AT DEPARTURE: 04/22/22 14:48 DS: Summary Time Spent with Patient providing and/or coordinating discharge services: Less than 30 minutes Status at Discharge Functional status at discharge: independent ambulation Overall status at discharge: patient is back to baseline Mental Status: mental status grossly normal Speech and Movement: speech and movement normal Mood: congruent mood Affect: normal affect Exam Narrative Exam Narrative: Elderly white male sitting up in bed, alert and oriented person place time circumstance. He has reproducible chest wall pain with palpation over his left anterior chest and left shoulder also reproduced with abduction and circumduction of his left shoulder. Lungs are clear to auscultation Heart is regular rate and rhythm without appreciable murmur rub or gallop Abdomen soft nondistended Extremities without edema Psych Mental Status: mental status grossly normal Speech and Movement: speech and movement normal Mood: congruent mood Affect: normal affect DS: Data Vitals/I&O Vitals and I&O: Vital Signs Temperature 36.5 C 04/22/22 11:19 Temperature Source Tympanic 04/22/22 11:19 Pulse 85 04/22/22 11:19 Pulse Rhythm Irregular 04/22/22 08:00 Pulse 86 04/21/22 07:00 Respiratory Rate 16 04/22/22 11:19 Respiratory Effort 04/22/22 08:00 Respiratory Depth Normal 04/22/22 08:00 Respiratory Pattern Normal 04/22/22 08:00 Blood Pressure 134/80 04/22/22 11:19 Blood Pressure Mean 83 04/21/22 07:00 Blood Pressure Position Supine 04/21/22 04:00 Pulse Oximetry 97 04/22/22 11:19 Oxygen Delivery Method Room Air 04/22/22 11:19 Oxygen Flow Rate 0 04/22/22 11:19 Pain Level 0 04/22/22 11:19 Comment 04/20/22 12:30 Intake & Output 04/21/22 04/22/22 04/22/22 23:59 11:59 23:59 Intake Total 240 / 240 Output Total 1050 / 1900 Balance -1050 / -1558.375 240 / 240 Weight 83.2 kg Intake: Oral 240 / 240 Output: Urine 1050 / 1900 Other: Urine Color Yellow Urine Appearance Clear Urine Odor None Stool Occult Blood Negative Stool Size Moderate Stool Characteristics Liquid Voiding Methods Bedside Commode Urinal PFSH All Active Problems (Updated 04/23/22 @ 10:55 by Margie Inman RN) Screening for colon cancer (Acute) Chest pain (Acute) Nail dystrophy (Acute) Low back pain (Acute) Lumbar radiculopathy (Acute) Compression fracture of lumbar vertebra (Acute) Viral URI with cough (Acute) Chest pain (Acute) Unstable angina (Acute) UTI (urinary tract infection) (Acute) UTI (urinary tract infection) (Acute) Arthritis of right hip (Acute) Contusion of right hip (Acute) Left rib fracture (Acute) Rib pain on left side (Acute) Chest wall muscle strain (Acute) History of rib fracture (Acute) Head trauma (Acute) Chronic subdural hematoma (Chronic) Chest pain (Acute) Pituitary abnormality (Acute) Neck pain (Acute) Hand weakness (Acute) Cubital tunnel syndrome on right (Acute) Lower urinary tract symptoms (Chronic) Lumbar radiculitis (Acute) Lumbosacral spondylosis without myelopathy (Acute) Chronic rhinitis (Chronic) Atypical chest pain (Acute) Musculoskeletal; Negative NPI 04/29/2018 Urethral stricture (Acute 08/20/15) Sensory hearing loss, bilateral (Chronic 04/09/14) Sensorineural hearing loss, asymmetrical (Chronic 05/12/13) Postnasal drip (Chronic 05/13/15) Mild cognitive impairment (Chronic 01/31/18) Hypertrophy of nasal turbinates (Chronic 08/05/15) 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) Deviated nasal septum (Chronic 08/05/15) Thoracic spondylosis without myelopathy (Chronic) Coronary artery disease (Chronic) Hyperlipidemia (Chronic) Diabetes mellitus type 2 in obese (Chronic) Medical History (Updated 04/23/22 @ 10:55 by Margie Inman RN) Anemia, iron deficiency Cecal volvulus Chronic low back pain Colon polyps Constipation, chronic Depression Diastasis recti DM type 2 (diabetes mellitus, type 2) Fatty liver GERD (gastroesophageal reflux disease) Gout H/O alcohol abuse Headaches due to 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 Hx of deep venous thrombosis Hx of traumatic brain injury Hyperlipidemia Hypertension Hypothyroidism Knee pain, right Migraine headache Mild dementia MRSA infection Obstructive sleep apnea Pain in joint of right foot Rathke's pouch cyst Recurrent UTI Rhinorrhea Right sided weakness Shoulder pain Tinea pedis Urethral stricture Vitamin D deficiency Volvulus of cecum Surgical History Appendectomy (06/01/16) Colonoscopy - MAC 2009-5year f/u 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 electroconvulsive therapy Extraction of cataract facial lesion removal Repair of inguinal hernia (08/05/17) right inguinal hernia repair by Dr Arroyo on 08/05/17 Repair of umbilical hernia Social History Smoking/Tobacco Use Status: Never Smoking risk assessment performed?: Yes Alcohol Intake: former Drug use: Never Substance use type: does not use Household members: spouse Housing: house Pets and animals: Yes Pets and animals: dog(s) Do you feel safe at home: Yes Do you feel safe in your relationship?: Yes
--- NOTE | 2022-04-22 16:35 | PDOC.CMDIS ---
- If Service Date Differs Date of service: 04/22/22 Time of Service: 16:35 LACE Index Scoring Tool - Questions: Length of Stay (in days): 2 Acuity (Admit via E.D.?): Yes Comorbidities: Diabetes w/o Complication, Dementia E.D. Visits: 9 - Answers: Total Score: 14 Risk of Readmission: High Risk Care Management Discharge Reason for Hospitalization: Chest Pain, Unstable Angina Discharge Plan: Fredo will return home today after being medically cleared by MD. His will drive him home via private vehicle. He will follow up with his PCP and discharge plan of care. He is happy to be going home. Patient/Family Education Needs: Review discharge instructions and limitations, discussion of self care needs including ask me three.
== END 2022-04-22 14:48 | disposition home or self-care (01) | DRG 313 ==
LOC: ER 17:38 → ICU 19:48 → MS 04-21 19:47
PROVIDERS: Registered Nurse Emergency; Student in an Organized Health Care Education/Training Program; Admitting Provider Internal Medicine; Emergency Provider Student in an Organized Health Care Education/Training Program; PCP Family Medicine; Visit Provider Internal Medicine
DX: R07.89 Other chest pain (principal); E78.5 Hyperlipidemia, unspecified; I25.119 Atherosclerotic heart disease of native coronary artery with unspecified angina pectoris; Z87.820 Personal history of traumatic brain injury; K59.09 Other constipation; Z95.1 Presence of aortocoronary bypass graft; Z79.4 Long term (current) use of insulin; M54.16 Radiculopathy, lumbar region; M47.817 Spondylosis without myelopathy or radiculopathy, lumbosacral region; H90.3 Sensorineural hearing loss, bilateral; Z86.718 Personal history of other venous thrombosis and embolism; E03.9 Hypothyroidism, unspecified; K21.9 Gastro-esophageal reflux disease without esophagitis; G89.29 Other chronic pain; D50.9 Iron deficiency anemia, unspecified; K76.0 Fatty (change of) liver, not elsewhere classified; G47.33 Obstructive sleep apnea (adult) (pediatric); E55.9 Vitamin D deficiency, unspecified; F03.A0 Unspecified dementia, mild, without behavioral disturbance, psychotic disturbance, mood disturbance, and anxiety; E66.9 Obesity, unspecified; E11.9 Type 2 diabetes mellitus without complications
CPT/HCPCS: 36415; 71275; 80048; 80053; 80061; 87635; 93005; 96361; 96365; 96366; 99223; 99291; 71045; 74174; 83735; 83880; 84484; 85025; 85379; 93010; 93306; 99232; 99238; J3490

== ENCOUNTER → 2022-04-28 10:36 | Outpatient (BNVA) | payer MEDICARE, OTHER, SELFPAY | PROVIDERS: PCP Family Medicine; Referring Provider Family Medicine; Visit Provider Internal Medicine Cardiovascular Disease | DX: I25.119 Atherosclerotic heart disease of native coronary artery with unspecified angina pectoris (principal); R07.89 Other chest pain; R07.2 Precordial pain | CPT/HCPCS: 99214 ==

== ENCOUNTER → 2022-05-11 01:06 | Outpatient (CLI) | payer MEDICARE, OTHER, SELFPAY ==
--- NOTE | 2022-05-11 07:30 | DI.NM_ITS ---
APPROVED REPORT Exam: Pharmacologic Patient Location: Out-Patient Room/Bed: Stress Nurse: Shasta Cueto RN Ordering Provider:VIVI LANDRY, Contact Number: [phone] BMI: 27.25 Baseline Rhythm: Sinus Rhythm Comment: Inverted/flat T waves in I, II, III, aVL, aVF, V3, V4, V5, V6 - upright T wave in V1 Indications: Chest pain, CAD Medical History Medical History: anemia, CAD, depression, DM II, GERD, h/o ETOPH abuse, hx TBI, HLD, HTN, hx of DVT, mild dementia, hypthyroidism, DONALDO Cardiac Medications: Rosuvastatin, Potassium chloride, pantoprazole, nitro SL, metoprolol succinate, metformin, magnesium, lisinopril, isosorbide mononitrate, amlodipine, victoza, lantus insulin Allergies: Trimethoprim, oxycodone, amoxicillin, sulfamethoxazole Cardiac Risk Factors: HTN, HLD, DM II Previous Cardiac Procedures: CABG 2015 Pretest Chest Pain Characteristics: Baseline chest pain, 6/10 ache that comes and goes Exercise History: Sedentary Physical Disabilities: back, knee, shoulder, and foot pain Lung Sounds: Clear to auscultation Heart Sounds: Regular Stress Test Details Test: Pharmacologic stress was paired with low level exercise. Reason for pharmacologic stress test: physical limitation. Nuclear Acquisition: Rest Tc-99m/Stress Tc-99m 1 day Rest Isotope: Tc-99m Sestamibi. Dose: 10.0 ml Date: 05/11/2022 Injection Time: 09:10 Stress Isotope: Tc-99m Sestamibi. Dose: 31.0 ml Date: 05/11/2022 Injection Time: 10:55 HR Resting HR Supine: 90 bpm Max Heart Rate (APMHR): 148.384718 bpm Resting HR Standin bpm Target HR (85% APMHR): 125.516500 bpm Max HR Achieved: 112 bpm % of APMHR: 75.68 Recovery HR: 94 bpm BP Resting BP Supine: 142/70 mmHg Resting BP Standin/70 mmHg Max BP: 158/72 mmHg Recovery BP: 130/70 mmHg ECG Resting ECG: Sinus Rhythm Ectopy: Frequent PAC's Comment: Inverted/flat T waves in I, II, III, aVL, aVF, V3, V4, V5, V6 - upright T wave in V1 Stress ECG: Sinus Tachycardia ST Change: No significant ST segment changes noted Arrhythmia: Frequent PAC's, rare PVC Comment: Inverted/flat T waves in I, II, III, aVL, aVF, V3, V4, V5, V6 - upright T wave in V1 Recovery ECG: Sinus Rhythm Recovery ST Change: No significant ST segment changes noted Recovery Arrhythmia: Frequent PAC's, rare PVC Comment: Inverted/flat T waves in I, II, III, aVL, aVF, V3, V4, V5, V6 - upright T wave in V1 Clinical Stress Symptoms: Chest pain, Dizziness Rate Pressure Product: [id number] Stress ECG Conclusion 1. Resting EKG showed early R wave transition, nondiagnostic ST-T abnormalities 2. Patient underwent pharmacologic stress with regadenoson 3. Peak heart rate achieved was 76% of predicted for age 4. The electrocardiographic portion of the test was nondiagnostic 5. 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 Th at his chest pain comes and goes, sometimes it radiates down his arm and somtimes it does not. He sta heidi sometimes taking nitro was helpful, sometimes it was not helpful. Pt reported his chest was a 6/1 0 ache and his usual state of chest discomfort prior to the test. Patients oxygen saturation range wa s 98-99% prior, during, and after test. Pt reported mild shortness of breath and dizziness s/p lexisc an injection, both of which resolved. Patient reported that while lying on the stretcher post lexisca n injection he had chest pain that was still 6/10 that radiated down his arm but this radiation resol jaylan within a minute. Patient reported he felt at his baseline prior to going to cafeteria for a snack prior to second set of images. MPI Conclusion Myocardial perfusion is normal. There is no ischemia or evidence of prior infarction EF is 48%, normal wall motion Radiologist Interpretation Radiologist agrees with Clinical Data Programmer's Interpretation. Radiologist Interpretation by: Roshni Peres MD Interpretation Date/Time: 05/11/2022 16:46:18
[2022-05-11] MEDS: Regadenoson 0.4 MG/5 ML SYR IVP (11:26)
== END ==
PROVIDERS: PCP Family Medicine; Visit Provider Internal Medicine Cardiovascular Disease
DX: I25.119 Atherosclerotic heart disease of native coronary artery with unspecified angina pectoris (principal); R07.2 Precordial pain
CPT/HCPCS: 78452; 93016; 93018; 93017; J2785

== ENCOUNTER 2022-05-21 12:58 | Emergency (ER) | payer MEDICARE, OTHER, SELFPAY ==
[2022-05-21 13:05] VITALS: BP 151/71; PULSE 98; RESP 16; TEMP 36.4; O2SAT 99
--- NOTE | 2022-05-21 13:15 | DI.CT_ITS ---
Exam(s) CT CHEST/ABD/PEL W CT THORACIC LUMBAR SPINE REC EXAM: CT CHEST/ABD/PEL W TECHNIQUE: CT examination of the chest, abdomen, and pelvis was performed with bolus infusion of 100 cc of Omnipaque 350. Additional CT reconstructions of the thoracic and lumbar spine were obtained with multi planar review ing. COMPARISON: CT CT THORACIC LUMBAR SPINE REC from 05/21/2022 FINDINGS: There is no evidence of a thoracic vascular injury. The lungs are clear. No pneumothorax or pleural effusion. No mediastinal hematoma. No adenopathy in the chest. Tracheobronchial tree appears intact. The liver, spleen, and pancreas appear normal. Gallbladder and bile ducts are normal. Adrenals and kidneys are unremarkable. No evidence of urinary tract injury or obstruction. No abdominal or pelvic vascular injury seen. No abdominal or pelvic adenopathy. No significant abdomi nal wall hernia or hematoma. No evidence of bowel injury. No fracture identified in the region surveyed. Additional CT multiplanar reconstructions of the thoracic and lumbar spine show an old mild compressi on fracture of T12 vertebral body with no evidence of acute fracture of the thoracic or lumbar region . IMPRESSION: No evidence of acute injury of the chest, abdomen, or pelvis. RADIATION DOSE DELIVERED: Total DLP Total DLP DATA REPOSITORY: All CT scans at this facility are submitted to the National Radiology Data Registry (NRDR) Dose Index Registry (DIR) with the [employer] ([employer]). RADIATION OPTIMIZATION: All CT scans at this facility use at least one of these dose optimization te chniques: automated exposure control; mA and/or kV adjustment per patient size (includes targeted exa ms where dose is matched to clinical indication); or iterative reconstruction.
--- NOTE | 2022-05-21 13:15 | DI.CT_ITS ---
Exam(s) CT HEAD CERVICAL SPINE WO EXAM: CT HEAD CERVICAL SPINE WO COMPARISON: CT CT HEAD WO from 01/07/2021 FINDINGS: CT examination of the cervical spine was performed without contrast administration. There is no evidence of acute cervical spine fracture or dislocation. There are moderate degenerative changes of the cervical spine. Tracheolaryngeal structures appear intact. No cervical mass or adenopathy. Noncontrast cranial CT was performed. There is an old right frontal craniotomy defect and there is left frontal focal atrophy as well as ge neralized cerebral atrophy period. No evidence of acute intracranial hemorrhage, mass effect, or midline shift. No calvarial fracture. The orbital and temporal bone structures appear intact. Visualized mastoid air cells and paranasal sinuses appear clear. IMPRESSION: No evidence of acute cervical spine injury. No evidence of acute intracranial injury. RADIATION DOSE DELIVERED: 1,276.42mGy.cm Total DLP DATA REPOSITORY: All CT scans at this facility are submitted to the National Radiology Data Registry (NRDR) Dose Index Registry (DIR) with the [employer] ([employer]). RADIATION OPTIMIZATION: All CT scans at this facility use at least one of these dose optimization te chniques: automated exposure control; mA and/or kV adjustment per patient size (includes targeted exa ms where dose is matched to clinical indication); or iterative reconstruction.
[2022-05-21 13:48] LABS: Abs Immature Grans 0.03 10^3/uL (0.0-0.06); Absolute Basophil Count 0.06 10^3/uL (0.0-0.2); Absolute Eosinophil Count 0.18 10^3/uL (0.0-0.7); Absolute Lymphocyte Count 0.76 10^3/uL (1.2-3.4); Absolute Monocyte Count 0.38 10^3/uL (0.1-0.8); Absolute Neutrophil Count 4.76 10^3/uL (1.2-6.7); Eosinophils % 2.9; HCT 39.3 % (40.0-50.0); Immature Grans % 0.5; Lymphocytes % 12.3; MCH 28.3 pg (27.0-33.0); MCHC 33.1 % (32.0-36.0); MCV 86 fL (80-95); MPV 9.4 fL (8.0-11.0); Monocytes % 6.2; Neutrophils % 77.1; Platelet Count 158 10^3/uL (130-400); RBC 4.59 10^6/uL (4.36-5.78); RDW 13.9 % (11.8-14.1); RDW-SD 43.4 fL; WBC 6.17 10^3/uL (4.4-10.8)
--- NOTE | 2022-05-21 13:48 | W.ED.GENAD ---
Discharge Plan Disposition Patient Disposition: Home Condition: Stable Discharge Details Clinical Impression: Head injury due to trauma, Low back pain, UTI (urinary tract infection), Lumbar radiculopathy, Fall Primary Care Provider: Alisa Ramirez ED Provider: Dimitry Ayon Home Meds and New Rx's Prescriptions: No Action triamcinolone acetonide 0.1 % Ointment 1 applic TOPICAL BID finasteride 5 mg tablet 5 mg PO DAILY Qty: 90 4RF phenazopyridine 200 mg Tablet 200 mg PO TID PRN Rx Instructions: For 2 days carboxymethylcellulose sodium [Refresh Tears] 0.5 % Drops 1 - 2 drp OPHTHALMIC (EYE) QID PRN acetylcysteine [NAC] 600 mg capsule 600 mg PO BID bisacodyl [Dulcolax (bisacodyl)] 5 mg tablet,delayed release (DR/EC) 5 mg PO DAILY PRN metoprolol succinate 50 mg tablet extended release 24 hr 50 mg PO DAILY citalopram 20 mg tablet 10 mg PO DAILY diclofenac sodium [Voltaren] 1 % gel 1 applic topical DIRECTED Rx Instructions: apply to single elbow, wrist or hand; for hand includes palm/fingers/back of hand ranolazine [Ranexa] 500 mg tablet extended release 12 hr 500 mg PO BID polyethylene glycol 3350 [Miralax] 17 GM powder in packet 17 g PO DAILY PRNQty: 255 nitroglycerin [Nitrostat] 0.4 MG tablet, sublingual 0.4 mg Sublingual as directed Levemir FlexTouch U-100 Insuln 100 UNIT/1 ML insulin pen 75 units subcut BID Rx Instructions: If blood sugar is frequently over 140 may go back to 80 units BID riboflavin (vitamin B2) [Vitamin B-2] 100 mg tablet 400 mg PO BID metformin 1,000 mg tablet 1,000 mg PO BID allopurinol 300 mg tablet 300 mg PO DAILY triamcinolone acetonide 0.1 % cream 1 applic topical BID cod liver oil Capsule 1 cap PO DAILY levothyroxine 50 MCG tablet 50 mcg PO DAILY@0730 quetiapine [Seroquel] 300 MG tablet 300 mg PO HS rosuvastatin [Crestor] 20 MG tablet 20 mg PO HS lisinopril 20 mg Tablet 30 mg PO DAILY isosorbide mononitrate 60 mg tablet extended release 24 hr 60 mg PO DAILY Rx Instructions: TAKE ALONG WITH 30MG TAB FOR TOTAL DAILY DOSE OF 90MG lidocaine [Lidoderm] 1 PATCH patch 1 patch Topical Q24H Qty: 4 0RF methocarbamol 500 mg tablet 500 mg PO Q6H PRN (Reason: muscle spasm) Qty: 14 0RF docusate sodium [Colace] 100 mg Capsule 100 mg PO DAILY PRN topiramate 25 mg tablet 25 mg PO HS Label Comments: TAKE 1 TABLET BY MOUTH AT BEDTIME topiramate 50 mg tablet 50 mg PO HS Label Comments: TAKE 1 TABLET BY MOUTH ONCE DAILY tramadol 50 mg tablet 50 mg PO Q6H PRN PRN (Reason: pain) amlodipine 2.5 mg tablet 2.5 mg PO DAILY gabapentin 300 mg capsule 300 mg PO BID Rx Instructions: FOR DIABETIC FOOT NEUROPATHY cholecalciferol (vitamin D3) [Vitamin D3] 1,000 unit Tablet 1,000 unit PO DAILY pantoprazole [Protonix] 40 mg tablet,delayed release (DR/EC) 40 mg PO DAILY Qty: 30 0RF Victoza 2-Thanh 0.6 mg/0.1 mL (18 mg/3 mL) pen injector 1.8 mg SUBCUT DAILY magnesium 200 mg Tablet 400 mg PO DAILY mupirocin 2 % Ointment 1 applic TOPICAL BID potassium chloride 10 mEq Capsule, Extended Release 10 meq PO DAILY Discharge Instructions Instructions: Urinary Tract Infection in Men (ED), Head Injury (ED), Low Back Strain (ED) Additional Instructions: Continue to take your medication as prescribed including your tramadol and acetaminophen as needed for discomfort. If you continue to have pain and discomfort follow-up with your primary care provider for reassessment or if you have any new or worsening symptoms feel free to return the emergency department. Referrals: Alisa Ramirez MD [Primary Care Provider] - Discharge Data Discharge Date/Time-TO BE ENTERED AT DEPARTURE: 05/21/22 16:45 Medical Decision Making Patient presenting to the emergency department for chief complaint of fall 2 days ago with now having headache, altered mental status, and back pain. Patient states he took a hard fall after losing his balance and mainly striking his head but also injuring his back. He denies any loss of consciousness, fainting, dizziness or lightheadedness. Patient states he has had ongoing chest pain but this is not changed from his normal, denies any respiratory symptoms, denies nausea vomiting or change in GI. Does state some radiation of pain from the back going down his right leg similar to previous episodes of his sciatica. Physical exam shows no obvious trauma to the head scalp or face, no C-spine injury, patient is alert to person and place but not to time. No focal neurological deficits noted. Patient does have tenderness to approximately T4-T5 and to L3-L4. Exam is otherwise nondiagnostic. We will plan on checking patient's labs for possible metabolic sources of altered mental status, we will also perform trauma imaging due to patient's fall and discomfort. Reviewed labs and CBC shows a 6 very slight anemia but otherwise nondiagnostic, CMP shows anion gap of 11.6, creatinine 1.6, BUN of 17 so we will give patient slight amount of fluids. Glucose is 243 which is not uncommon for the patient CMP is otherwise nondiagnostic. Urinalysis does show small amount of leukocyte Estrace with 10-20 WBCs reflexive culture was ordered. Will give patient single dose of fosfomycin to ensure medication compliance pending culture result. UDS is negative and patient is not intoxicated. CT imaging is unremarkable for any acute findings. Patient recommended to follow-up with primary care provider for reassessment if pain continues otherwise patient already has tramadol at home and was recommended to continue use of acetaminophen. After discussion of diagnosis and plan of care patient has no further needs, questions, or concerns and states clear understanding to return to the emergency department for any worsening symptoms. This documentation was generated using [employer] dictation system, please disregard any oddities of phrase or misspellings. Sign Out No HPI General Mode of arrival: wheelchair. Date/Time Provider Initiated Documentation: 05/21/22 13:02. Limitations to Documentation: no limitations. Information obtained by: patient and RN notes reviewed. History of Present Illness 71 year old M presents to the emergency department with the chief complaint of Fall with altered mental status and back pain, described as moderate, with intensity rated at 8. Quality is described as aching and sharp, and is localized to the head and back. Patient extremity. Patient started experiencing this day(s) (2) and it has been constant. Rest improves symptom(s), No exacerbating factors reported . Patient notes confusion, chest pain, headaches and malaise; denies shortness of breath. Related Data Home Medications Medication Instructions Recorded Confirmed levothyroxine 50 mcg tablet 50 mcg PO DAILY@0730 01/24/13 05/21/22 quetiapine 300 mg tablet (Seroquel) 300 mg PO HS 01/24/13 05/21/22 rosuvastatin 20 mg tablet (Crestor) 20 mg PO HS 03/22/17 05/21/22 nitroglycerin 0.4 mg sublingual 0.4 mg sublingual as directed 04/08/17 05/21/22 tablet (Nitrostat) polyethylene glycol 3350 17 gram 17 g PO DAILY PRN #255 grams 04/08/17 05/21/22 oral powder packet (Miralax) insulin detemir U-100 100 unit/mL 75 units subcut BID 08/04/17 05/21/22 (3 mL) subcutaneous pen (Levemir FlexTouch U-100 Insulin) cholecalciferol (vitamin D3) 25 1,000 unit PO DAILY 11/11/18 05/21/22 mcg (1,000 unit) tablet (Vitamin D3) riboflavin (vitamin B2) 100 mg 400 mg PO BID 03/28/19 05/21/22 tablet (Vitamin B-2) bisacodyl 5 mg tablet,delayed 5 mg PO DAILY PRN 04/17/19 05/21/22 release (Dulcolax (bisacodyl)) pantoprazole 40 mg tablet,delayed 40 mg PO DAILY #30 tabs 04/25/19 05/21/22 release (Protonix) metoprolol succinate 50 mg 50 mg PO DAILY 05/10/19 05/21/22 tablet,extended release 24 hr acetylcysteine 600 mg capsule (NAC) 600 mg PO BID 05/16/19 05/21/22 citalopram 20 mg tablet 10 mg PO DAILY 05/16/19 05/21/22 lisinopril 20 mg tablet 30 mg PO DAILY 05/24/19 05/21/22 diclofenac sodium 1 % topical gel 1 applic topical DIRECTED 04/30/20 05/21/22 (Voltaren) ranolazine 500 mg tablet,extended 500 mg PO BID 04/30/20 05/21/22 release,12 hr (Ranexa) liraglutide 0.6 mg/0.1 mL (18 mg/3 1.8 mg subcut DAILY 12/30/20 12/01/22 mL) subcutaneous pen injector (Victoza 2-Thanh) isosorbide mononitrate 60 mg 60 mg PO DAILY 09/18/20 05/21/22 tablet,extended release 24 hr lidocaine 5 % topical patch 1 patch topical Q24H #4 ea 10/14/20 05/21/22 (Lidoderm) methocarbamol 500 mg tablet 500 mg PO Q6H PRN muscle spasm #14 11/07/20 05/21/22 tabs triamcinolone acetonide 0.1 % 1 applic topical BID 11/13/20 05/21/22 topical ointment docusate sodium 100 mg capsule 100 mg PO DAILY PRN 01/07/21 05/21/22 (Colace) topiramate 25 mg tablet 25 mg PO HS 01/09/21 05/21/22 topiramate 50 mg tablet 50 mg PO HS 01/09/21 05/21/22 gabapentin 300 mg capsule 300 mg PO BID 02/04/21 05/21/22 carboxymethylcellulose sodium 0.5 1 - 2 drp ophthalmic (eye) QID PRN 03/27/21 05/21/22 % eye drops (Refresh Tears) phenazopyridine 200 mg tablet 200 mg PO TID PRN 03/27/21 05/21/22 magnesium 200 mg tablet 400 mg PO DAILY 06/07/21 05/21/22 tramadol 50 mg tablet 50 mg PO Q6H PRN PRN pain 06/19/21 05/21/22 amlodipine 2.5 mg tablet 2.5 mg PO DAILY 08/18/21 05/21/22 finasteride 5 mg tablet 5 mg PO DAILY #90 tabs 08/18/21 05/21/22 mupirocin 2 % topical ointment 1 applic topical BID 09/14/21 05/21/22 potassium chloride 10 mEq 10 meq PO DAILY 09/14/21 05/21/22 capsule,extended release allopurinol 300 mg tablet 300 mg PO DAILY 04/23/22 05/21/22 cod liver oil 1 cap PO DAILY 04/23/22 05/21/22 metformin 1,000 mg tablet 1,000 mg PO BID 04/23/22 05/21/22 triamcinolone acetonide 0.1 % 1 applic topical BID 04/23/22 05/21/22 topical cream Previous Rx's Medication Instructions Recorded pantoprazole 40 mg tablet,delayed 40 mg PO DAILY #30 tabs 04/25/19 release (Protonix) lidocaine 5 % topical patch 1 patch topical Q24H #4 ea 10/14/20 (Lidoderm) methocarbamol 500 mg tablet 500 mg PO Q6H PRN muscle spasm #14 11/07/20 tabs finasteride 5 mg tablet 5 mg PO DAILY #90 tabs 08/18/21 Allergies Allergy/AdvReac Type Severity Reaction Status Date / Time amoxicillin Allergy Severe breathing Verified 05/21/22 13:46 difficuty and vomiting Penicillins Allergy Intermediate Skin Rash Verified 05/21/22 13:46 sulfamethoxazole Allergy Intermediate Skin Rash Verified 05/21/22 13:46 [From Bactrim] trimethoprim [From Bactrim] Allergy Intermediate Skin Rash Verified 05/21/22 13:46 oxycodone HCl [From Percocet] AdvReac Severe Contraindic Verified 05/21/22 13:46 ated oxycodone terephthalate AdvReac Severe Contraindic Verified 05/21/22 13:46 [From Percodan] ated General Stated Complaint: Trauma MADELIN: 3 Review of Systems Constitutional Constitutional: Denies chills, Denies fever(s), Reports headache(s), Reports malaise and Reports weakness (Generalized) Eyes Eyes: Denies change in vision ENT Ears, Nose, Mouth, and Throat: Denies facial pain, Reports headache(s), Denies epistaxis and Denies neck pain Cardiovascular Cardiovascular: Reports chest pain, Denies syncope, Denies edema, Denies lightheadedness and Denies dyspnea Respiratory Respiratory: Denies cough, Denies pain on inspiration and Denies dyspnea Gastrointestinal Gastrointestinal: Denies abdominal pain, Reports bloating, Denies diarrhea, Denies nausea and Denies vomiting Genitourinary Genitourinary: Denies oliguria and Denies difficulty urinating Musculoskeletal Musculoskeletal: Reports back pain, Denies neck pain, Denies numbness and Reports tingling (Down left leg) Integumentary/Breasts Skin/Breast: Denies unusual bruising and Denies wounds Neurologic Neurologic: Denies syncope, Reports headache(s), Denies numbness, Reports tingling (Down left leg) and Reports weakness (Generalized) [facility] All Active Problems (Updated 05/21/22 @ 16:03 by Dimitry Ayon NP) Head injury due to trauma (Acute) Fall (Acute) Screening for colon cancer (Acute) Chest pain (Acute) Nail dystrophy (Acute) Low back pain (Acute) Lumbar radiculopathy (Acute) Compression fracture of lumbar vertebra (Acute) Viral URI with cough (Acute) Chest pain (Acute) Unstable angina (Acute) UTI (urinary tract infection) (Acute) UTI (urinary tract infection) (Acute) Arthritis of right hip (Acute) Contusion of right hip (Acute) Left rib fracture (Acute) Rib pain on left side (Acute) Chest wall muscle strain (Acute) History of rib fracture (Acute) Head trauma (Acute) Chronic subdural hematoma (Chronic) Chest pain (Acute) Pituitary abnormality (Acute) Neck pain (Acute) Hand weakness (Acute) Cubital tunnel syndrome on right (Acute) Lower urinary tract symptoms (Chronic) Lumbar radiculitis (Acute) Lumbosacral spondylosis without myelopathy (Acute) Chronic rhinitis (Chronic) Atypical chest pain (Acute) Musculoskeletal; Negative NPI 04/29/2018 Urethral stricture (Acute 08/20/15) Sensory hearing loss, bilateral (Chronic 04/09/14) Sensorineural hearing loss, asymmetrical (Chronic 05/12/13) Postnasal drip (Chronic 05/13/15) Mild cognitive impairment (Chronic 01/31/18) Hypertrophy of nasal turbinates (Chronic 08/05/15) 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) Deviated nasal septum (Chronic 08/05/15) Thoracic spondylosis without myelopathy (Chronic) Coronary artery disease (Chronic) Hyperlipidemia (Chronic) Diabetes mellitus type 2 in obese (Chronic) Medical History Anemia, iron deficiency Cecal volvulus Chronic low back pain Colon polyps Constipation, chronic Depression Diastasis recti DM type 2 (diabetes mellitus, type 2) Fatty liver GERD (gastroesophageal reflux disease) Gout H/O alcohol abuse Headaches due to 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 Hx of deep venous thrombosis Hx of traumatic brain injury Hyperlipidemia Hypertension Hypothyroidism Knee pain, right Migraine headache Mild dementia MRSA infection Obstructive sleep apnea Pain in joint of right foot Rathke's pouch cyst Recurrent UTI Rhinorrhea Right sided weakness Shoulder pain Tinea pedis Urethral stricture Vitamin D deficiency Volvulus of cecum Surgical History Appendectomy (06/01/16) Colonoscopy - MAC 2010-5year f/u 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 electroconvulsive therapy Extraction of cataract facial lesion removal Repair of inguinal hernia (08/05/17) right inguinal hernia repair by Dr Arroyo on 08/05/17 Repair of umbilical hernia Social History Smoking/Tobacco Use Status: Never Smoking risk assessment performed?: Yes Alcohol Intake: former Drug use: Never Substance use type: does not use Household members: spouse Housing: house Pets and animals: Yes Pets and animals: dog(s) Do you feel safe at home: Yes Do you feel safe in your relationship?: Yes Exam Const General: cooperative and no acute distress Orientation: alert, awake, oriented to person, oriented to place, not oriented to time and confused HENMT Head: normal to inspection, no palpable skull fracture, normocephalic, atraumatic, no Brothers's sign and no raccoon eyes Ears: hearing grossly normal bilaterally, external ears normal and TM's normal bilaterally General nose exam: external nose normal Face and sinus: normal facial exam Mouth: oral mucosae normal, lip normal and tongue normal Throat: posterior oropharynx normal Eyes General: appearance normal, both eyes and all related structures Alignment and Position: alignment normal Periorbital: periorbital findings normal Eyelids: eyelids normal Conjunctivae: conjunctivae normal Pupils: PERRL EOM: EOM intact bilaterally and No nystagmus Neck Neck: full ROM and nontender Chest Chest: normal palpation of entire chest wall Resp Effort & Inspection: normal respiratory effort and able to speak in complete sentences Auscultation: clear to auscultation bilaterally Cardio Rate: regular rate Rhythm: regular rhythm Heart Sounds: S1 normal and S2 normal GI Inspection: distended Palpation: soft, not firm, no guarding and nontender Auscultation: normal bowel sounds Back/Spine/Pelvis Cervical Spine: normal cervical lordosis, cervical ROM normal, No cervical spinal tenderness and No step off deformity Thoracic/Lumbar Spine: No paraspinal tenderness, thoracic spinal tenderness and lumbar spinal tenderness Pelvis: no pain with anterior-posterior compression and no pain with lateral compression Skin General skin exam: no rashes or lesions noted Trauma: no lacerations or abrasions Neuro Cranial Nerves: no nystagmus Course Vital Signs Vital signs: Vital Signs Temperature 36.4 C L 05/21/22 13:05 Pulse 98 H 05/21/22 13:05 Respiratory Rate 16 05/21/22 13:05 Blood Pressure 151/71 H 05/21/22 13:05 Pulse Oximetry 99 05/21/22 13:05 Temperature 36.4 C L 05/21/22 13:05 Temperature Source Temporal Artery Scan 05/21/22 13:05 Pulse 98 H 05/21/22 13:05 Respiratory Rate 16 05/21/22 13:05 Respiratory Effort Non-Labored 05/21/22 13:27 Respiratory Depth Normal 05/21/22 13:27 Respiratory Pattern Normal 05/21/22 13:27 Blood Pressure 151/71 H 05/21/22 13:05 Blood Pressure Position Sitting 05/21/22 13:05 Pulse Oximetry 99 05/21/22 13:05 Oxygen Delivery Method Room Air 05/21/22 13:05 Oxygen Flow Rate 0 05/21/22 13:05 Pain Level 8 05/21/22 13:05
[2022-05-21 13:59] LABS: Bilirubin Negative (Negative); Blood Negative (Negative); Clarity Sl Cloudy (Clear); Glucose Negative (Negative); Ketones Negative (Negative); Leukocyte Esterase Small (Negative); Nitrite Negative (Negative); Specific Gravity 1.025 (1.005-1.025); Urobilinogen 0.2 EU/dL (Up TO 0.2)
[2022-05-21 14:03] LABS: Ammonia 23 umol/L (11-32)
[2022-05-21 14:05] LABS: Bacteria Few HPF (Negative); C & S Indicated? Yes; Casts Negative LPF (Negative); Crystals Moderate Amorphous HPF (Negative); Epithelial Cells Few HPF (Negative); Mucus Negative (Negative); RBC Negative HPF (0-2)
[2022-05-21 14:09] LABS: *AMPHETAMINES SCREEN URINE Negative (Negative); *BARBITURATES SCREEN URINE Negative (Negative); *BENZODIAZEPINES SCREEN URINE Negative (Negative); Cannabinoids THC Negative (Negative); Cocaine Screen,Urine Negative (Negative); OPIATES URINE SCREEN Negative (Negative)
[2022-05-21 14:10] LABS: Tricyclic Antidepressants Negative (Negative)
[2022-05-21 14:10] LABS: ALT 22 U/L (16-63); AST 20 U/L (15-37); Alkaline Phosphatase 89 U/L (46-116); Anion Gap 11.6 mmol/L (3-11); BUN 17 mg/dL (7-18); Bilirubin, Total 0.3 mg/dL (0.2-1.0); CO2 20.4 mmol/L (21.0-32.0); CREATININE 1.6 mg/dL (0.70-1.30); Calcium 8.9 mg/dL (8.5-10.1); Chloride 105 mmol/L (98-107); Glucose 243 mg/dL (74-106); Magnesium 2.1 mg/dL (1.8-2.4); Sodium 137 mmol/L (136-145); Total Protein 7.1 g/dL (6.4-8.2); Troponin I < 50 ng/L (<or=60)
[2022-05-21 14:11] LABS: ETHANOL BLOOD < 3.0 mg/dL (<10)
[2022-05-21] MEDS: Omnipaque 350 MG/ML 100 ML BTL IJ (15:42)
[2022-05-21] MEDS: Normal Saline - Diluent 50 ML VIAL IJ (15:43)
[2022-05-21 16:21] VITALS: BP 153/83; PULSE 91; RESP 18; O2SAT 98
[2022-05-21] MEDS: Fosfomycin Tromethamine 3 GM PACKET PO (16:46)
== END 2022-05-21 16:45 | disposition home or self-care (01) ==
PROVIDERS: Emergency Provider Nurse Practitioner Family; PCP Family Medicine
DX: S09.90XA Unspecified injury of head, initial encounter (principal); N39.0 Urinary tract infection, site not specified; M54.16 Radiculopathy, lumbar region; D64.9 Anemia, unspecified; E11.9 Type 2 diabetes mellitus without complications; Z79.4 Long term (current) use of insulin; Z79.84 Long term (current) use of oral hypoglycemic drugs; W19.XXXA Unspecified fall, initial encounter
CPT/HCPCS: 36415; 74177; 80053; 80307; 96372; 96374; 96375; 99285; 70450; 71260; 72125; 80320; 81003; 81015; 82140; 83735; 84484; 85025; 87086; 99284; J0131; J3490

== ENCOUNTER 2022-06-10 10:20 | Emergency (ER) | payer MEDICARE, OTHER, SELFPAY ==
[2022-06-10 10:35] VITALS: BP 147/81; PULSE 99; RESP 16; TEMP 36.9; O2SAT 99
[2022-06-10 11:16] LABS: Bilirubin Negative (Negative); Blood Negative (Negative); Clarity Clear (Clear); Glucose Negative (Negative); Ketones Negative (Negative); Leukocyte Esterase Trace (Negative); Nitrite Negative (Negative); Urobilinogen 0.2 EU/dL (Up TO 0.2); pH 6.5 (5-8)
[2022-06-10 11:35] LABS: Bacteria Negative HPF (Negative); Crystals Negative HPF (Negative); Epithelial Cells Rare HPF (Negative); Mucus Negative (Negative); RBC Negative HPF (0-2)
[2022-06-10 11:36] LABS: C & S Indicated? Yes; Casts Negative LPF (Negative)
--- NOTE | 2022-06-10 11:47 | ED.GENADUL_ITS ---
Discharge Plan Disposition Patient Disposition: Home Condition: Stable Discharge Details Clinical Impression: Dysuria Primary Care Provider: Alisa Ramirez ED Provider: Emelina Jung Home Meds and New Rx's Prescriptions: Continued finasteride 5 mg tablet 5 mg PO DAILY Qty: 90 4RF phenazopyridine 200 mg Tablet 200 mg PO TID PRN Rx Instructions: For 2 days carboxymethylcellulose sodium [Refresh Tears] 0.5 % Drops 1 - 2 drp OPHTHALMIC (EYE) QID PRN acetylcysteine [NAC] 600 mg capsule 600 mg PO BID bisacodyl [Dulcolax (bisacodyl)] 5 mg tablet,delayed release (DR/EC) 5 mg PO DAILY PRN metoprolol succinate 50 mg tablet extended release 24 hr 50 mg PO DAILY citalopram 20 mg tablet 10 mg PO DAILY diclofenac sodium [Voltaren] 1 % gel 1 applic topical DIRECTED Rx Instructions: apply to single elbow, wrist or hand; for hand includes palm/fingers/back of hand nitroglycerin [Nitrostat] 0.4 MG tablet, sublingual 0.4 mg Sublingual as directed riboflavin (vitamin B2) [Vitamin B-2] 100 mg tablet 400 mg PO BID metformin 1,000 mg tablet 1,000 mg PO BID allopurinol 300 mg tablet 300 mg PO DAILY triamcinolone acetonide 0.1 % cream 1 applic topical BID cod liver oil Capsule 1 cap PO DAILY pregabalin 100 mg capsule 100 mg PO TID Levemir FlexTouch U-100 Insuln 100 unit/mL (3 mL) insulin pen 70 unit subcut BID gabapentin 300 mg capsule 300 mg PO TID Rx Instructions: FOR DIABETIC FOOT NEUROPATHY polyethylene glycol 3350 [Miralax] 17 gram/dose powder 25.5 g PO DAILY levothyroxine 50 MCG tablet 50 mcg PO DAILY@0730 quetiapine [Seroquel] 300 MG tablet 300 mg PO HS rosuvastatin [Crestor] 20 MG tablet 20 mg PO HS lisinopril 20 mg Tablet 30 mg PO DAILY isosorbide mononitrate 60 mg tablet extended release 24 hr 60 mg PO DAILY Rx Instructions: TAKE ALONG WITH 30MG TAB FOR TOTAL DAILY DOSE OF 90MG lidocaine [Lidoderm] 1 PATCH patch 1 patch Topical Q24H Qty: 4 0RF methocarbamol 500 mg tablet 500 mg PO Q6H PRN (Reason: muscle spasm) Qty: 14 0RF docusate sodium [Colace] 100 mg Capsule 100 mg PO DAILY PRN topiramate 25 mg tablet 25 mg PO HS Label Comments: TAKE 1 TABLET BY MOUTH AT BEDTIME topiramate 50 mg tablet 50 mg PO HS Label Comments: TAKE 1 TABLET BY MOUTH ONCE DAILY tramadol 50 mg tablet 50 mg PO Q6H PRN PRN (Reason: pain) amlodipine 2.5 mg tablet 2.5 mg PO DAILY ranolazine 500 mg tablet extended release 12 hr 500 mg PO BID Label Comments: Take 1 tablet by mouth twice a day Levemir FlexTouch U-100 Insuln 100 unit/mL (3 mL) insulin pen 75 unit SUBCUT BID pregabalin 100 mg capsule 100 mg PO TID Label Comments: Take 1 capsule by mouth three times a day cholecalciferol (vitamin D3) [Vitamin D3] 1,000 unit Tablet 1,000 unit PO DAILY pantoprazole [Protonix] 40 mg tablet,delayed release (DR/EC) 40 mg PO DAILY Qty: 30 0RF Victoza 2-Thanh 0.6 mg/0.1 mL (18 mg/3 mL) pen injector 1.8 mg SUBCUT DAILY magnesium 200 mg Tablet 400 mg PO DAILY mupirocin 2 % Ointment 1 applic TOPICAL BID potassium chloride 10 mEq Capsule, Extended Release 10 meq PO DAILY Discharge Instructions Instructions: Dysuria (ED) Additional Instructions: Please follow-up with your primary care physician in 48 hours for recheck of your urinalysis should you have persistent symptoms Return earlier should you have fever, chills, new back pain or abdominal pain, or with any new or worsening complaints Referrals: Alisa Rmairez MD [Primary Care Provider] - Discharge Data Discharge Date/Time-TO BE ENTERED AT DEPARTURE: 06/10/22 12:02 Medical Decision Making This 71-year-old female with history of recurrent urinary tract infection, mild dementia, diabetes presents with reports of dysuria this morning with 1 episode of urination which has self resolved. Denies any flank pain Exam is benign and urinalysis does not show evidence of infection, will send for culture Abdominal and flank exam is benign, patient with stable vitals, afebrile, nontoxic Return precautions reviewed and patient expressed understanding Discharged home in stable condition with stable vitals Recheck with primary care physician recommended in 2 to 3 days if persistent symptoms No glucose or ketones noted in urine Medical Records Medical records reviewed: Yes I reviewed the patient's medical records. HPI General Date/Time Provider Initiated Documentation: 06/10/22 10:45 . HPI Narrative: This 71-year-old male presents with urinary frequency and burning since this morning. States he had 1 episode this morning and its resolved at this time. He denies any nausea or vomiting. Denies any flank pain or fever. Related Data Home Medications Medication Instructions Recorded Confirmed levothyroxine 50 mcg tablet 50 mcg PO DAILY@0730 01/24/13 06/10/22 quetiapine 300 mg tablet (Seroquel) 300 mg PO HS 01/24/13 06/10/22 rosuvastatin 20 mg tablet (Crestor) 20 mg PO HS 03/22/17 06/10/22 nitroglycerin 0.4 mg sublingual 0.4 mg sublingual as directed 04/08/17 05/21/22 tablet (Nitrostat) cholecalciferol (vitamin D3) 25 1,000 unit PO DAILY 11/11/18 06/10/22 mcg (1,000 unit) tablet (Vitamin D3) riboflavin (vitamin B2) 100 mg 400 mg PO BID 03/28/19 06/10/22 tablet (Vitamin B-2) bisacodyl 5 mg tablet,delayed 5 mg PO DAILY PRN 04/17/19 06/10/22 release (Dulcolax (bisacodyl)) pantoprazole 40 mg tablet,delayed 40 mg PO DAILY #30 tabs 04/25/19 06/10/22 release (Protonix) metoprolol succinate 50 mg 50 mg PO DAILY 05/10/19 06/10/22 tablet,extended release 24 hr acetylcysteine 600 mg capsule (NAC) 600 mg PO BID 05/16/19 06/10/22 citalopram 20 mg tablet 10 mg PO DAILY 05/16/19 06/10/22 lisinopril 20 mg tablet 30 mg PO DAILY 05/24/19 06/10/22 diclofenac sodium 1 % topical gel 1 applic topical DIRECTED 04/30/20 06/10/22 (Voltaren) liraglutide 0.6 mg/0.1 mL (18 mg/3 1.8 mg subcut DAILY 06/19/20 06/10/22 mL) subcutaneous pen injector (Victoza 2-Thanh) isosorbide mononitrate 60 mg 60 mg PO DAILY 09/18/20 06/10/22 tablet,extended release 24 hr lidocaine 5 % topical patch 1 patch topical Q24H #4 ea 10/14/20 06/10/22 (Lidoderm) methocarbamol 500 mg tablet 500 mg PO Q6H PRN muscle spasm #14 11/07/20 06/10/22 tabs docusate sodium 100 mg capsule 100 mg PO DAILY PRN 01/07/21 06/10/22 (Colace) topiramate 25 mg tablet 25 mg PO HS 01/09/21 06/10/22 topiramate 50 mg tablet 50 mg PO HS 01/09/21 06/10/22 carboxymethylcellulose sodium 0.5 1 - 2 drp ophthalmic (eye) QID PRN 03/27/21 06/10/22 % eye drops (Refresh Tears) phenazopyridine 200 mg tablet 200 mg PO TID PRN 03/27/21 06/10/22 magnesium 200 mg tablet 400 mg PO DAILY 06/07/21 06/10/22 tramadol 50 mg tablet 50 mg PO Q6H PRN PRN pain 06/19/21 06/10/22 amlodipine 2.5 mg tablet 2.5 mg PO DAILY 08/18/21 06/10/22 finasteride 5 mg tablet 5 mg PO DAILY #90 tabs 08/18/21 06/10/22 mupirocin 2 % topical ointment 1 applic topical BID 09/14/21 06/10/22 potassium chloride 10 mEq 10 meq PO DAILY 09/14/21 06/10/22 capsule,extended release allopurinol 300 mg tablet 300 mg PO DAILY 04/23/22 06/10/22 cod liver oil 1 cap PO DAILY 04/23/22 06/10/22 metformin 1,000 mg tablet 1,000 mg PO BID 04/23/22 06/10/22 triamcinolone acetonide 0.1 % 1 applic topical BID 04/23/22 06/10/22 topical cream gabapentin 300 mg capsule 300 mg PO TID 06/03/22 insulin detemir U-100 100 unit/mL 70 unit subcut BID 06/03/22 06/10/22 (3 mL) subcutaneous pen (Levemir FlexTouch U-100 Insulin) polyethylene glycol 3350 17 25.5 g PO DAILY 06/03/22 06/10/22 gram/dose oral powder (Miralax) pregabalin 100 mg capsule 100 mg PO TID 06/03/22 06/10/22 insulin detemir U-100 100 unit/mL 75 unit subcut BID 06/10/22 06/10/22 (3 mL) subcutaneous pen (Levemir FlexTouch U-100 Insulin) pregabalin 100 mg capsule 100 mg PO TID 06/10/22 06/10/22 ranolazine 500 mg tablet,extended 500 mg PO BID 06/10/22 06/10/22 release,12 hr Previous Rx's Medication Instructions Recorded pantoprazole 40 mg tablet,delayed 40 mg PO DAILY #30 tabs 04/25/19 release (Protonix) lidocaine 5 % topical patch 1 patch topical Q24H #4 ea 10/14/20 (Lidoderm) methocarbamol 500 mg tablet 500 mg PO Q6H PRN muscle spasm #14 11/07/20 tabs finasteride 5 mg tablet 5 mg PO DAILY #90 tabs 08/18/21 Allergies Allergy/AdvReac Type Severity Reaction Status Date / Time amoxicillin Allergy Severe breathing Verified 06/10/22 10:39 difficuty and vomiting Penicillins Allergy Intermediate Skin Rash Verified 06/10/22 10:39 sulfamethoxazole Allergy Intermediate Skin Rash Verified 06/10/22 10:39 [From Bactrim] trimethoprim [From Bactrim] Allergy Intermediate Skin Rash Verified 06/10/22 10:39 oxycodone HCl [From Percocet] AdvReac Severe Contraindic Verified 06/10/22 10:39 ated oxycodone terephthalate AdvReac Severe Contraindic Verified 06/10/22 10:39 [From Percodan] ated General Stated Complaint: Urinary MADELIN: 4 Review of Systems All systems reviewed & are unremarkable except as noted in HPI and below PFSH All Active Problems (Updated 06/10/22 @ 11:55 by ROSAURA Umanzor) Head injury due to trauma (Acute) Fall (Acute) Dysuria (Acute) Screening for colon cancer (Acute) Chest pain (Acute) Nail dystrophy (Acute) Low back pain (Acute) Lumbar radiculopathy (Acute) Compression fracture of lumbar vertebra (Acute) Viral URI with cough (Acute) Chest pain (Acute) Unstable angina (Acute) UTI (urinary tract infection) (Acute) UTI (urinary tract infection) (Acute) Arthritis of right hip (Acute) Contusion of right hip (Acute) Left rib fracture (Acute) Rib pain on left side (Acute) Chest wall muscle strain (Acute) History of rib fracture (Acute) Head trauma (Acute) Chronic subdural hematoma (Chronic) Chest pain (Acute) Pituitary abnormality (Acute) Neck pain (Acute) Hand weakness (Acute) Cubital tunnel syndrome on right (Acute) Lower urinary tract symptoms (Chronic) Lumbar radiculitis (Acute) Lumbosacral spondylosis without myelopathy (Acute) Chronic rhinitis (Chronic) Atypical chest pain (Acute) Musculoskeletal; Negative NPI 04/29/2018 Urethral stricture (Acute 08/20/15) Sensory hearing loss, bilateral (Chronic 04/09/14) Sensorineural hearing loss, asymmetrical (Chronic 05/12/13) Postnasal drip (Chronic 05/13/15) Mild cognitive impairment (Chronic 01/31/18) Hypertrophy of nasal turbinates (Chronic 08/05/15) 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) Deviated nasal septum (Chronic 08/05/15) Thoracic spondylosis without myelopathy (Chronic) Coronary artery disease (Chronic) Hyperlipidemia (Chronic) Diabetes mellitus type 2 in obese (Chronic) Medical History Anemia, iron deficiency Cecal volvulus Chronic low back pain Colon polyps Constipation, chronic Depression Diastasis recti DM type 2 (diabetes mellitus, type 2) Fatty liver GERD (gastroesophageal reflux disease) Gout H/O alcohol abuse Headaches due to 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 Hx of deep venous thrombosis Hx of traumatic brain injury Hyperlipidemia Hypertension Hypothyroidism Knee pain, right Migraine headache Mild dementia MRSA infection Obstructive sleep apnea Pain in joint of right foot Rathke's pouch cyst Recurrent UTI Rhinorrhea Right sided weakness Shoulder pain Tinea pedis Urethral stricture Vitamin D deficiency Volvulus of cecum Surgical History Appendectomy (06/01/16) Colonoscopy - MAC 2009-5year f/u 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 electroconvulsive therapy Extraction of cataract facial lesion removal Repair of inguinal hernia (08/05/17) right inguinal hernia repair by Dr Arroyo on 08/05/17 Repair of umbilical hernia Social History Smoking/Tobacco Use Status: Never Smoking risk assessment performed?: Yes Alcohol Intake: former Drug use: Never Substance use type: does not use Household members: spouse Housing: house Pets and animals: Yes Pets and animals: dog(s) Do you feel safe at home: Yes Do you feel safe in your relationship?: Yes Exam Const General: cooperative, comfortable and no acute distress Resp Effort & Inspection: normal respiratory effort Auscultation: clear to auscultation bilaterally Cardio Rate: regular rate Rhythm: regular rhythm GI Inspection: normal to inspection Other: non-tender abdominal exam Neuro General: patient alert and patient oriented x3 Course Vital Signs Vital signs: Vital Signs Temperature 36.9 C 06/10/22 10:35 Pulse 99 H 06/10/22 10:35 Respiratory Rate 16 06/10/22 10:35 Blood Pressure 147/81 H 06/10/22 10:35 Pulse Oximetry 99 06/10/22 10:35 Temperature 36.9 C 06/10/22 10:35 Temperature Source Oral 06/10/22 10:35 Pulse 99 H 06/10/22 10:35 Respiratory Rate 16 06/10/22 10:35 Respiratory Effort 06/10/22 10:38 Blood Pressure 147/81 H 06/10/22 10:35 Blood Pressure Position Sitting 06/10/22 10:35 Pulse Oximetry 99 06/10/22 10:35 Oxygen Delivery Method Room Air 06/10/22 10:35 Oxygen Flow Rate 0 06/10/22 10:35 Pain Level 3 06/10/22 10:35 Lab/Test Results Lab/Test Results: 06/10/22 10:46 Urine - Reflex from Ua Urine Culture - Pending Laboratory Tests Range/Units 06/10/22 10:46 Urine Color (Yellow) Yellow Urine Clarity (Clear) Clear Urine pH (5-8) 6.5 Ur Specific Taylor (1.005-1.025) 1.020 Urine Protein (Negative) mg/dL Negative Urine Ketones (Negative) mg/dL Negative Urine Blood (Negative) Negative Urine Nitrite (Negative) Negative Urine Bilirubin (Negative) Negative Urine Urobilinogen (Up TO 0.2) EU/dL 0.2 Ur Leukocyte Esterase (Negative) Trace H Urine RBC (0-2) HPF Negative Urine WBC (0-5) HPF 3-5 Ur Epithelial Cells (Negative) HPF Rare Urine Crystals (Negative) HPF Negative Urine Bacteria (Negative) HPF Negative Urine Casts (Negative) LPF Negative Urine Mucus (Negative) Negative Ur Culture Indicated? Yes Urine Glucose (Negative) mg/dL Negative
== END 2022-06-10 12:02 | disposition home or self-care (01) ==
PROVIDERS: Emergency Provider Physician Assistant; PCP Family Medicine
DX: R30.0 Dysuria (principal); E11.9 Type 2 diabetes mellitus without complications; I10 Essential (primary) hypertension; Z79.4 Long term (current) use of insulin; Z79.84 Long term (current) use of oral hypoglycemic drugs; F03.A0 Unspecified dementia, mild, without behavioral disturbance, psychotic disturbance, mood disturbance, and anxiety
CPT/HCPCS: 87077; 99281; 81003; 81015; 87086

== ENCOUNTER 2022-06-19 16:10 | Outpatient (REF) | payer MEDICARE, OTHER, SELFPAY ==
[2022-06-19 18:30] LABS: HCT 38.2 % (40.0-50.0); HGB 12.9 g/dL (13.5-17.5); MCH 28.7 pg (27.0-33.0); MCHC 33.8 % (32.0-36.0); MCV 85 fL (80-95); MPV 9.6 fL (8.0-11.0); Platelet Count 160 10^3/uL (130-400); WBC 6.21 10^3/uL (4.4-10.8)
[2022-06-19 18:31] LABS: Bilirubin Negative (Negative); Blood Negative (Negative); Clarity Cloudy (Clear); Glucose Negative (Negative); Ketones Negative (Negative); Leukocyte Esterase Trace (Negative); Nitrite Negative (Negative); Specific Gravity 1.025 (1.005-1.025); Urobilinogen 0.2 EU/dL (Up TO 0.2)
[2022-06-19 18:44] LABS: Bacteria Moderate HPF (Negative); C & S Indicated? Yes; Casts Negative LPF (Negative); Crystals Mod Calcium Oxalate HPF (Negative); Epithelial Cells Rare HPF (Negative); Mucus Negative (Negative); RBC 0-2 HPF (0-2)
[2022-06-19 19:04] LABS: Folate 18.9 ng/mL (8.6-20.0); Vitamin B12 622 pg/mL (193-986)
== END 2022-06-19 16:11 | disposition home or self-care (01) ==
LOC: NCHCN 16:10
PROVIDERS: PCP Family Medicine; Visit Provider Family Medicine
DX: E53.8 Deficiency of other specified B group vitamins (principal); R30.0 Dysuria
CPT/HCPCS: 85027; 81003; 81015; 82607; 82746; 87086

== ENCOUNTER 2022-07-06 01:40 | Outpatient (CLI) | payer MEDICARE, OTHER, SELFPAY ==
--- NOTE | 2022-07-06 08:40 | DI.MRI_ITS ---
Exam(s) MR CERVICAL SPINE WO EXAM: MR CERVICAL SPINE WO CLINICAL HISTORY: LT ARM PAIN, M79.602; LT CERVICAL RADICULOPATHY, M54.12 TECHNIQUE: Multiplanar multisequence MRI of the cervical spine was performed without intravenous con trast. COMPARISON: MR MR CERVICAL SPINE WO from 03/24/2019 FINDINGS: BONES: Vertebral body heights are maintained. Intervertebral disc spaces are normal. Alignment is nor mal. Bone marrow signal intensity is within normal limits. CERVICAL CORD: Craniovertebral junction is unremarkable. The cervical cord is normal size and signal intensity. SOFT TISSUES: Unremarkable. C2-3: No disc herniation or bulge is identified. No significant central spinal canal or neural forami nal stenosis. C3-4: There is prominence of the uncovertebral joint. There is mild narrowing of the central spinal canal with an indentation on the anterior spinal cord. There is normal signal in the cord. Degenera tive changes of the facets are seen, left greater than right. No significant central spinal canal or neural foraminal stenosis C4-5: There is mild prominence of the osteophyte disc complex. No significant central spinal canal s tenosis is seen. Degenerative changes of the uncovertebral joints are seen on the right. There is m ild narrowing of the left neural foramen. There is mild narrowing of the right neural foramen. C5-6: There is prominence of the osteophyte disc complex. There are mild degenerative changes seen a t the uncovertebral joints on the left. There is mild narrowing of the left neural foramen. C6-7: No disc herniation or bulge is identified. No significant central spinal canal or neural forami nal stenosis C7-T1: No disc herniation or bulge is identified. No significant central spinal canal or neural maximino inal stenosis IMPRESSION: Multilevel degenerative changes in the cervical spine resulting in central spinal canal neural forami nal narrowing as described above. DATA REPOSITORY:
--- NOTE | 2022-07-06 08:45 | DI.RAD_ITS ---
Exam(s) XR HUMERUS LT EXAM: XR HUMERUS LT CLINICAL HISTORY: LT ARM PAIN, M79.602. TECHNIQUE: 2D digital imaging was performed of the left humerus. Two images were obtained. AP and lateral views were obtained. COMPARISON: No exams were available for comparison FINDINGS: BONES: No acute fracture is present. No bony destructive lesion is seen. Visualized portion of elbow and shoulder joints are unremarkable. SOFT TISSUE: Normal. IMPRESSION: Unremarkable radiographs of the left humerus. DATA REPOSITORY: RADIATION DOSE DELIVERED:
== END 2022-07-06 02:00 ==
PROVIDERS: PCP Family Medicine; Visit Provider Family Medicine
DX: M79.602 Pain in left arm (principal); M47.812 Spondylosis without myelopathy or radiculopathy, cervical region
CPT/HCPCS: 72141; 73060

== ENCOUNTER 2022-07-08 08:32 | Outpatient (CLI) | payer MEDICARE, OTHER, SELFPAY ==
--- NOTE | 2022-07-08 06:00 | DI.RAD_ITS ---
Exam(s) XR PAIN CLINIC LUMBAR SP 2V EXAM: XR PAIN CLINIC LUMBAR SP 2V CLINICAL HISTORY: Dx: Lumbar Spondylosis TECHNIQUE: 2D and realtime digital imaging was performed. Radiologist not present. CONTRAST MATERIAL: None. COMPARISON: No exams were available for comparison FINDINGS: Fluoroscopy was provided for pain management therapy. Please refer to procedure report or details. Cumulative dose: Kar=23.08 mGy IMPRESSION: RADIATION DOSE DELIVERED:
[2022-07-08 07:53] VITALS: BP 134/82; PULSE 91; RESP 20; TEMP 36.8; O2SAT 97
[2022-07-08] MEDS: fentaNYL 100 MCG/2 ML VIAL IVP (08:25)
[2022-07-08] MEDS: Lactated Ringers 500 ML 80 ML IV (08:26)
[2022-07-08] MEDS: Midazolam 2 MG/2 ML VIAL IVP (08:26)
[2022-07-08 08:53] VITALS: BP 132/76; PULSE 87; RESP 14; O2SAT 96
--- NOTE | 2022-07-08 08:58 | PDOC.PAIN_ITS ---
Date of service: 07/08/22 Time of Service: 10:18 Pain Clinic Procedure Note Procedure Note Procedure Note: Right Lumbar Radiofrequency with Avenos Machine PROCEDURE NOTE Date of Service: July 08, 2022 Patient: Fredo Osman Provider: Sergio Boucher DO, MPH Pre Operative Diagnosis: Lumbosacral Spondylosis without Myelopathy Post Operative Diagnosis: Same Post procedure pain; VAS= 7/10 Comments: He last had this procedure on 12/24/2020 and had >6 months of pain relief. PROCEDURE: Radiofrequency Ablation of medial branches - RT L2 L3 L4 L5 and lateral branch of the right S1. Fredo Osman was brought into the fluoroscopy suite and positioned into the prone position on the fluoroscopy table and allowed to adjust to a position of comfort. A grounding pad was placed on the left chest. The lumbar region was widely prepped with a chloraprep solution, allowed to air dry and draped in standard sterile surgical fashion. Local anesthesia was provided by 4 mL of 2% lidocaine delivered with a 25g needle. A 17g 100 mm radiofrequency introducer needle was placed to the planned anatomic targets guided with intermittent fluoroscopy with a perpendicular approach to terminally place at the junction of the superior articular process and the transverse process of the right L3 L4 L5, the base of the sacral ala on the right for the L5 medial branch nerve and the area between base of the sacral ala to the S1 foramen on the right. The stylets were removed and radiofrequency probes with a 4mm active tip were then inserted. Needle tip position of the probes was verified in the AP, oblique, and lateral views. At each site, the medial branch nerve was stimulated at 2 Hz to a maximum 1-2 volts determined to finalize safe needle and electrode placement. The patient was awake and responsive during this portion of the procedure. Each target was anesthetized with 1-2 mL of [] % [] for anesthesia for lesioning and then each target was lesioned at 80 degrees Celsius for 2 minutes and 30 seconds. Tissue impedences were noted to be between 250 and 500 Ohms. Electrodes and needles were then removed and bandages placed over the needle placement sites, the patient then returned to the supine position on a stretcher and transported to the recovery room without hemodynamic, neurologic, or allergic reactions. Fluoroscopic images were printed for hard copy recording and digitally archived. POST PROCEDURE EVALUATION: IMPRESSION: 1. Summary of procedure. Medication given is documented in the MAR. 2. The patient will be contacted in 1-3 weeks 3. Estimated Blood Loss: <5 mls 4. Fluoroscopy time: Documented in the EMR. Follow up plans and appointments were discussed with the Fredo . Post procedure instruction was given as documented in nursing documentation and having met discharge criteria, Fredo was discharged from the [facility]. COMMENTS: No apparent complications. Post-procedure pain: VAS= 0/10. F/U with our office as needed. This procedure can be completed again if he receives at least 6 months of pain relief. Sergio Boucher DO, MPH [facility]-Pain Management [facility]
[2022-07-08] MEDS: methylPREDNISolone ACETATE 40 MG/ML VIAL IJ (09:00)
[2022-07-08] MEDS: Bupivacaine 0.5% Pres-Free 10 ML VIAL IJ (09:00)
[2022-07-08] MEDS: Lidocaine 2% Pres-Free 5 ML VIAL IJ (09:00)
== END 2022-07-08 08:33 | disposition home or self-care (01) ==
LOC: PC 08:32
PROVIDERS: PCP Family Medicine; Visit Provider Preventive Medicine Occupational Medicine
DX: M47.817 Spondylosis without myelopathy or radiculopathy, lumbosacral region (principal); M54.50 Low back pain, unspecified
CPT/HCPCS: 64635; 64636; 72100; J1030; J2250; J3010

== ENCOUNTER 2022-07-22 11:59 | Outpatient (CLI) | payer MEDICARE, OTHER, SELFPAY ==
--- NOTE | 2022-07-22 06:00 | DI.RAD_ITS ---
Exam(s) XR PAIN CLINIC LUMBAR SP 2V EXAM: XR PAIN CLINIC LUMBAR SP 2V CLINICAL HISTORY: Dx: Lumbar Spondylosis. TECHNIQUE: Fluoroscopy was provided for the referring physician for guidance with performing pain cl inic injection procedure. COMPARISON: No exams were available for comparison FINDINGS: Please see procedure note for details. Fluoro time: 27.9 seconds RADIATION DOSE DELIVERED: Kar=8.25 mGy
[2022-07-22 12:19] VITALS: BP 147/84; PULSE 91; RESP 20; TEMP 37; O2SAT 100
[2022-07-22] MEDS: Omnipaque 240 MG/ML 50 ML BTL IJ (12:45)
[2022-07-22] MEDS: Bupivacaine 0.5% Pres-Free 10 ML VIAL IJ (12:54)
[2022-07-22 12:55] VITALS: BP 135/78; PULSE 87; RESP 20; O2SAT 100
--- NOTE | 2022-07-28 14:24 | PDOC.PAIN_ITS ---
Date of service: 07/22/22 Time of Service: 13:00 Pain Clinic Procedure Note Procedure Note Procedure Note: Lumbar/Sacral Medial Branch Blocks Fredo Osman has been referred to the Pain Management Center for lumbar/sacral medial branch blocks. COMMENTS: Pre-procedure pain VAS was 6/10. I previously evaluated him in the clinic. Dx: Lumbosacral spondylosis without myelopathy Patient was interviewed and the medical record reviewed. There were no medical, pharmacologic, radiographic or other structural contraindications to attempting fluoroscopically guided local anesthetic lumbar/sacral medial branch blocks. Risks and expected side effects as well as potential benefit of the procedure were reviewed and voiced concerns addressed. The printed consent form was signed and witnessed. Standard time-out procedure was performed. Patient was placed in the prone position on the fluoroscopy table and automated blood pressure cuff and pulse oximeter applied. The skin entry points for approaching the anatomic target points of the segmental medial branches of left L3-L5 medial branches were identified with anfluoroscopy and marked. Following thorough Chlorhexadine preparation of the skin and draping and 1% lidocaine infiltration of the skin entry points and subcutaneous tissues, a 22 gauge spinal needle was placed under fluoroscopic guidance down on to the target point for each respective segmental medial branch.Position was confirmed in A/P, oblique and lateral views with 0.25ml of omnipaque 240. At this point I injected 0.5ml of 0.5% Bupivacaine at each segmental sensory nerve. Vital signs were stable throughout the procedure and were as recorded in the docflowsheet by the nursing staff. Follow up plans and appointments were discussed and was instructed to keep careful note of how the usual pain was modified by these injections. Specifically was asked to keep a pain diary for the next 4 hours using a numeric pain scale of 0-10 and report these results at the follow-up visit. Post procedure instruction was given as documented in the nursing documentation and having met discharge criteria. Patient was discharged from the Pain Management Center. Based on the medial branches blocked today, if the patient has adequate relief and we are able to proceed to radiofrequency ablation, the treatment should result in the denervation of the left L4-L5 and L5-S1 FACET JOINTS. We would expect to denervate a total of 4 facets during the radiofrequency ablation. COMMENTS: Post-procedure pain VAS was 0/10. Sergio Boucher DO, MPH [facility] CC: Alisa Ramirez
== END 2022-07-22 12:00 | disposition home or self-care (01) ==
LOC: PC 12:00
PROVIDERS: PCP Family Medicine; Visit Provider Preventive Medicine Occupational Medicine
DX: M47.817 Spondylosis without myelopathy or radiculopathy, lumbosacral region (principal)
CPT/HCPCS: 64493; 64494; 72100; Q9967

== ENCOUNTER 2022-08-06 10:07 | Outpatient (CLI) | payer MEDICARE, OTHER, SELFPAY ==
--- NOTE | 2022-08-06 06:00 | DI.RAD_ITS ---
Exam(s) XR PAIN CLINIC LUMBAR SP 2V EXAM: XR PAIN CLINIC LUMBAR SP 2V CLINICAL HISTORY: Dx: Lumbar Spondylosis TECHNIQUE: 2D and realtime digital imaging was performed. Radiologist not present. CONTRAST MATERIAL: None. COMPARISON: No exams were available for comparison FINDINGS: Fluoroscopy was provided for pain management therapy. Please refer to procedure report or details. Radiation Exposure Index: Ka,r=8.07 mGy IMPRESSION: As above. RADIATION DOSE DELIVERED:
[2022-08-06 10:22] VITALS: BP 112/70; PULSE 89; RESP 20; TEMP 36.3; O2SAT 99
--- NOTE | 2022-08-06 10:57 | PDOC.PAIN ---
Date of service: 08/06/22 Time of Service: 11:00 Pain Clinic Procedure Note Procedure Note Procedure Note: Lumbar/Sacral Medial Branch Blocks Fredo Osman has been referred to the [facility] for lumbar/sacral medial branch blocks. COMMENTS: He did very well with his first left L3-L5 LMBB. Pre-procedure pain VAS was 7/10 Dx: Lumbosacral spondylosis without myelopathy Patient was interviewed and the medical record reviewed. There were no medical, pharmacologic, radiographic or other structural contraindications to attempting fluoroscopically guided local anesthetic lumbar/sacral medial branch blocks. Risks and expected side effects as well as potential benefit of the procedure were reviewed and voiced concerns addressed. The printed consent form was signed and witnessed. Standard time-out procedure was performed. Patient was placed in the prone position on the fluoroscopy table and automated blood pressure cuff and pulse oximeter applied. The skin entry points for approaching the anatomic target points of the segmental medial branches of left L3-L5DR were identified with fluoroscopy and marked. Following thorough Chlorhexadine preparation of the skin and draping, a 25 gauge 3.5 spinal needle was placed under fluoroscopic guidance down on to the target point for each respective segmental medial branch.Position was confirmed in A/P, oblique and lateral views with 0.25ml of omnipaque 240. At this point I injected 0.5cc of 2% Lidocaine at each segmental sensory nerve. Vital signs were stable throughout the procedure and were as recorded in the docflowsheet by the nursing staff. Follow up plans and appointments were discussed and was instructed to keep careful note of how the usual pain was modified by these injections. Specifically was asked to keep a pain diary for the next 4 hours using a numeric pain scale of 0-10 and report these results at the follow-up visit. Post procedure instruction was given as documented in the nursing documentation and having met discharge criteria. Patient was discharged from the [facility]. Based on the medial branches blocked today, if the patient has adequate relief and we are able to proceed to radiofrequency ablation, the treatment should result in the denervation of the left L4-L5 and L5-S1 FACET JOINTS. We would expect to denervate a total of 2 facets during the radiofrequency ablation. COMMENTS: Post-procedure pain VAS was 1/10. Sergio Boucher DO, MPH [facility]-Pain Management [facility] for [facility] CC: Alisa Ramirez
[2022-08-06 11:02] VITALS: BP 123/68; PULSE 87; RESP 21; O2SAT 99
[2022-08-06] MEDS: Lidocaine 2% Pres-Free 5 ML VIAL IJ (11:05)
[2022-08-06] MEDS: Omnipaque 240 MG/ML 50 ML BTL IJ (11:05)
== END 2022-08-06 10:08 | disposition home or self-care (01) ==
LOC: PC 10:08
PROVIDERS: PCP Family Medicine; Visit Provider Preventive Medicine Occupational Medicine
DX: M47.817 Spondylosis without myelopathy or radiculopathy, lumbosacral region (principal); M54.50 Low back pain, unspecified
CPT/HCPCS: 64493; 64494; 72100; Q9967

== ENCOUNTER → 2022-08-17 13:53 | Outpatient (BNVA) | payer MEDICARE, OTHER, SELFPAY | PROVIDERS: PCP Family Medicine; Visit Provider Urology | DX: R39.89 Other symptoms and signs involving the genitourinary system (principal) | CPT/HCPCS: 51798; 81003; 99213 ==

== ENCOUNTER 2022-08-19 07:30 | Outpatient (CLI) | payer MEDICARE, OTHER, SELFPAY ==
[2022-08-19 07:45] VITALS: BP 96/60; PULSE 100; RESP 20; TEMP 36.8; O2SAT 98
[2022-08-19] MEDS: Lactated Ringers 500 ML 80 ML IV (08:21)
[2022-08-19] MEDS: fentaNYL 100 MCG/2 ML VIAL IVP (08:21)
[2022-08-19] MEDS: Midazolam 2 MG/2 ML VIAL IVP (08:21)
[2022-08-19 08:37] VITALS: BP 115/65; PULSE 96; RESP 16; O2SAT 115
--- NOTE | 2022-08-19 08:37 | DI.RAD_ITS ---
Exam(s) XR PAIN CLINIC LUMBAR SP 2V EXAM: XR PAIN CLINIC LUMBAR SP 2V CLINICAL HISTORY: Dx:Lumbar Spondylosis TECHNIQUE: 2D and realtime digital imaging was performed. CONTRAST MATERIAL: Refer to procedure report. COMPARISON: No exams were available for comparison FINDINGS: Fluoroscopy was provided for Dr. Boucher for pain management therapy. Please refer to the procedure re port for complete details. Ka,r=8.05 mGy IMPRESSION:
[2022-08-19] MEDS: Lidocaine 2% Pres-Free 5 ML VIAL IJ (08:44)
[2022-08-19] MEDS: methylPREDNISolone ACETATE 40 MG/ML VIAL IJ (08:44)
[2022-08-19] MEDS: Bupivacaine 0.5% Pres-Free 10 ML VIAL IJ (08:45)
--- NOTE | 2022-08-19 08:54 | PDOC.PAIN_ITS ---
Date of service: 08/19/22 Time of Service: 08:58 Pain Clinic Procedure Note Procedure Note Procedure Note: Left Lumbar Radiofrequency with Coolief Machine PROCEDURE NOTE Date of Service: August 19, 2022 Patient: Fredo Osman Provider: Sergio Boucher DO, MPH Pre Operative Diagnosis: Lumbosacral Spondylosis without Myelopathy Post Operative Diagnosis: Same Pre procedure pain; VAS= 10/10 Comments: he did exceedingly well with his LMBBs X 2. PROCEDURE: Radiofrequency Ablation of medial branches - LT L3 L4 L5 and lateral branch of the leftl S1. Fredo Osman was brought into the fluoroscopy suite and positioned into the prone position on the fluoroscopy table and allowed to adjust to a position of comfort. A grounding pad was placed on the left stomach. The lumbar region was widely prepped with a chloraprep solution, allowed to air dry and draped in standard sterile surgical fashion. Local anesthesia was provided by 4 mL of 2% Lidocaine delivered with a 25g needle. A 17g 100 mm radiofrequency introducer needle was placed to the planned anatomic targets guided with intermittent fluoroscopy with a perpendicular approach to terminally place at the junction of the superior articular process and the transverse process of the left L4, L5, the base of the sacral ala on the left for the L5 medial branch nerve and the area between base of the sacral ala to the S1 foramen on the left. The stylets were removed and radiofrequency probes with a 4mm active tip were then inserted. Needle tip position of the probes was verified in the AP, oblique, and lateral views. At each site, the medial branch nerve was stimulated at 2 Hz to a maximum 1-2 volts determined to finalize safe needle and electrode placement. The patient was awake and responsive during this portion of the procedure. Each target was anesthetized with 1-2 mL of 2% Lidocaine for anesthesia for lesioning and then each target was lesioned at 80 degrees Celsius for 2 minutes and 30 seconds. Tissue impedences were noted to be between 250 and 500 Ohms. Electrodes and needles were then removed and bandages placed over the needle placement sites, the patient then returned to the supine position on a stretcher and transported to the recovery room without hemodynamic, neurologic, or allergic reactions. Fluoroscopic images were printed for hard copy recording and digitally archived. POST PROCEDURE EVALUATION: IMPRESSION: 1. Summary of procedure. Medication given is documented in the MAR. 2. The patient will be contacted in 1-3 weeks 3. Estimated Blood Loss: <5 mls 4. Fluoroscopy time: Documented in the EMR. Follow up plans and appointments were discussed with the Fredo . Post procedure instruction was given as documented in nursing documentation and having met discharge criteria, Fredo was discharged from the [facility]. COMMENTS: No apparent complications. Post-procedure pain: VAS= 3/10. Start his home exercises after 2 days. If this procedure gives him at least 50% improvement in pain and/or function for at least 6 months, it can be repeated. F/U with our office as needed. Sergio Boucher DO, MPH [facility])-Pain Management [facility]-Center for Pain Management
== END 2022-08-19 07:31 | disposition home or self-care (01) ==
PROVIDERS: PCP Family Medicine; Visit Provider Preventive Medicine Occupational Medicine
DX: M47.817 Spondylosis without myelopathy or radiculopathy, lumbosacral region (principal); M54.50 Low back pain, unspecified
CPT/HCPCS: 62323; 64635; 64636; 72100; J1030; J2250; J3010

== ENCOUNTER 2022-09-04 20:12 | Outpatient (REF) | payer MEDICARE, OTHER, SELFPAY ==
[2022-09-04 19:49] LABS: HCT 39.2 % (40.0-50.0); HGB 13.3 g/dL (13.5-17.5); MCH 29.5 pg (27.0-33.0); MCHC 33.9 % (32.0-36.0); MCV 87 fL (80-95); Platelet Count 170 10^3/uL (130-400); RBC 4.51 10^6/uL (4.36-5.78); RDW 15.2 % (11.8-14.1); RDW-SD 48.2 fL; WBC 7.49 10^3/uL (4.4-10.8)
[2022-09-04 20:09] LABS: COMMENT (LAB VIEW ONLY) 61.27 mg/dL; Microalb ug/mg Crea 7.8 ug/mg Cr
[2022-09-04 20:24] LABS: Anion Gap 11.6 mmol/L (3-11); BUN 23 mg/dL (7-18); CO2 22.4 mmol/L (21.0-32.0); CREATININE 1.5 mg/dL (0.70-1.30); Chloride 105 mmol/L (98-107); Estimated GFR 49.16 (mL/min/1.73m2); Ferritin 59 ng/mL (26-388); Glucose 209 mg/dL (74-106); Potassium 3.8 mmol/L (3.5-5.1); Sodium 139 mmol/L (136-145); Vitamin B12 851 pg/mL (193-986)
== END 2022-09-04 20:13 | disposition home or self-care (01) ==
LOC: NCHCN 20:12
PROVIDERS: PCP Family Medicine; Visit Provider Family Medicine
DX: I10 Essential (primary) hypertension (principal); D50.9 Iron deficiency anemia, unspecified; E53.8 Deficiency of other specified B group vitamins; E11.9 Type 2 diabetes mellitus without complications
CPT/HCPCS: 80048; 85027; 82043; 82570; 82607; 82728

== ENCOUNTER → 2022-09-10 14:44 | Outpatient (BNVA) | payer MEDICARE, OTHER, SELFPAY | PROVIDERS: PCP Family Medicine; Referring Provider Family Medicine; Visit Provider Physical Therapy Assistant | DX: Z12.11 Encounter for screening for malignant neoplasm of colon (principal) ==

== ENCOUNTER 2022-09-24 06:10 | Day surgery (SDC) | payer MEDICARE, OTHER, SELFPAY ==
--- NOTE | 2022-09-23 19:37 | W.PM.DSUDISC ---
Date of service: 09/24/22 Time of Service: 08:09 Discharge Plan Disposition Patient Disposition: Home Condition: Good Discharge Details Reason For Visit: Colonoscopy Attending Provider: Howie Morales Primary Care Provider: Alisa Ramirez Home Meds and New Rx's Prescriptions: Continued finasteride 5 mg tablet 5 mg PO DAILY Qty: 90 4RF phenazopyridine 200 mg Tablet 200 mg PO TID PRN Rx Instructions: For 2 days carboxymethylcellulose sodium [Refresh Tears] 0.5 % Drops 1 - 2 drp OPHTHALMIC (EYE) QID PRN acetylcysteine [NAC] 600 mg capsule 600 mg PO BID metoprolol succinate 50 mg tablet extended release 24 hr 50 mg PO HS citalopram 20 mg tablet 10 mg PO DAILY diclofenac sodium [Voltaren] 1 % gel 1 applic topical DIRECTED Rx Instructions: apply to single elbow, wrist or hand; for hand includes palm/fingers/back of hand nitroglycerin [Nitrostat] 0.4 MG tablet, sublingual 0.4 mg Sublingual as directed metformin 1,000 mg tablet 1,000 mg PO BID allopurinol 300 mg tablet 300 mg PO DAILY triamcinolone acetonide 0.1 % cream 1 applic topical BID pregabalin 100 mg capsule 100 mg PO TID Levemir FlexTouch U-100 Insuln 100 unit/mL (3 mL) insulin pen 70 unit subcut BID cod liver oil Capsule 2 cap PO DAILY Rx Instructions: 1,000mg / cap riboflavin (vitamin B2) [Vitamin B-2] 100 mg tablet 400 mg PO .QD levothyroxine 50 MCG tablet 50 mcg PO DAILY@0730 quetiapine [Seroquel] 300 MG tablet 300 mg PO HS rosuvastatin [Crestor] 20 MG tablet 20 mg PO HS lisinopril 20 mg tablet 30 mg PO DAILY isosorbide mononitrate 60 mg tablet extended release 24 hr 60 mg PO HS Rx Instructions: TAKE ALONG WITH 30MG TAB FOR TOTAL DAILY DOSE OF 90MG lidocaine [Lidoderm] 1 PATCH patch 1 patch Topical Q24H Qty: 4 0RF methocarbamol 500 mg tablet 500 mg PO Q6H PRN (Reason: muscle spasm) Qty: 14 0RF docusate sodium [Colace] 100 mg Capsule 100 mg PO DAILY PRN topiramate 25 mg tablet 25 mg PO HS Patient Comments: TAKE 1 TABLET BY MOUTH AT BEDTIME topiramate 50 mg tablet 50 mg PO HS Patient Comments: TAKE 1 TABLET BY MOUTH ONCE DAILY amlodipine 2.5 mg tablet 2.5 mg PO DAILY tramadol 50 mg tablet 50 mg PO QHS PRN (Reason: pain) ranolazine 500 mg tablet extended release 12 hr 500 mg PO BID Patient Comments: Take 1 tablet by mouth twice a day cholecalciferol (vitamin D3) [Vitamin D3] 1,000 unit Tablet 1,000 unit PO DAILY pantoprazole [Protonix] 40 mg tablet,delayed release (DR/EC) 40 mg PO DAILY Qty: 30 0RF Victoza 2-Thanh 0.6 mg/0.1 mL (18 mg/3 mL) pen injector 1.8 mg SUBCUT DAILY magnesium 200 mg Tablet 400 mg PO DAILY mupirocin 2 % Ointment 1 applic TOPICAL BID potassium chloride 10 mEq Capsule, Extended Release 10 meq PO DAILY Discontinued bisacodyl [Dulcolax (bisacodyl)] 5 mg tablet,delayed release (DR/EC) 5 mg PO DAILY PRN bisacodyl [Dulcolax (bisacodyl)] 5 mg tablet,delayed release (DR/EC) 5 mg PO ONCE Qty: 4 0RF Rx Instructions: Take according to provider's instructions for colonoscopy prep. polyethylene glycol 3350 17 gram/dose powder 17 g PO ONCE Qty: 238 0RF Rx Instructions: To be taken as directed by prescriber's office for colonoscopy prep. polyethylene glycol 3350 [Miralax] 17 gram/dose powder 25.5 g PO DAILY Discharge Instructions Instructions: Colorectal Polyps (GEN) Additional Instructions: Fredo, we were able to complete your colonoscopy today. The quality of your prep was very good. I found, and removed completely 5 polyps. It will take a little time to get the results on what types of polyps they are. At that time, I will be in touch to share that information. Follow the instructions attached here, and please feel free to call us if you have any questions. 1. If tolerated, consume a soft, low fiber diet for 1-2 days. 2. Do not drive, drink alcohol, operate machinery, make critical decisions, or do activities that require coordination or balance for 24 hours. 3. Because air was put into your colon during the procedure, expelling air from your rectum (passing gas or farting) is normal. 4. You may not have a bowel movement for 1-3 days because of the colonoscopy prep. This is normal. 5. Go directly to the emergency room if you notice any of the following: Develop chills (warm to touch), or if you have a thermometer and your temperature is above 101 Difficulty breathing or difficultly swallowing Persistent vomiting Severe abdominal pain, other than gas cramps Severe chest pain Black, tarry stools Any bleeding ? exceeding one tablespoon 6. Call your physician if the site where your intravenous was started becomes red, swollen, painful, and warm to touch. 7. Your physician has reviewed your pre-procedure medications. Please continue to take those medications as previously ordered. You will be given specific information/education regarding any changes to your medications before leaving. Activity:: Activity as Tolerated Diet:: As Tolerated Discharge Orders Discharge Orders: Discharge Order (Routine); Ordered 09/23/22 Ordered By: Howie Morales DS: Diagnosis Discharge Diagnosis (1) Colon polyps: Asessment and Plan: Follow-up on polypectomy results
--- NOTE | 2022-09-23 19:42 | W.COLOREPORT ---
Date of service: 09/24/22 Time of Service: 08:11 Colonoscopy Report Date of procedure: 09/24/22 Pre-op diagnosis general: Screening colonoscopy Post-op diagnosis procedure note: other (Colon polyps) Procedure: Colonoscopy with polypectomy Surgeon: Howie Morales Anesthesia Type: General:No Airway Estimated blood loss (mL): 5 Pathology: other (Polyps from 90, 65, 45, 30 and 20 cm) Complications: None Disposition: same day Indications: Fredo is a 72 year old male who is following up on another screening colonoscopy because of history of colon polyps Prep: Miralax/Dulcolax Procedure Start Time: : Procedure End Time: :56 Retraction Time: Findings: Colon polyps Procedure Description: After the induction of monitored anesthetic care, and with the patient in left lateral decubitus position, I began by performing an external anorectal exam.? Perineum and skin were normal, as was the anal verge.? There was no evidence of external hemorrhoids.? Next, I performed a digital rectal exam.? I did not appreciate any abnormal findings.? Next, I advanced a colonoscope into the rectal vault.? I performed retroflexion.? This appeared normal.? Using insufflation, I then advanced the colonoscope beyond the rectal folds and into the sigmoid colon before advancing towards the cecum.? The quality of the prep was very good.? The scope was noted to be in the cecum by identification of the ileocecal valve and appendiceal orifice.? I then began withdrawing the colonoscope using repeated irrigation as necessary for full evaluation of the colonic mucosa. Around 90 cm from the anal verge I identified a 0.5 cm polyp. ?It appeared sessile in character. ?I was able to remove this with a cold forcep polypectomy. ?I examined the site, and there was minimal bleeding. Similarly, I used cold forcep polypectomy to remove for other sessile polyps. Each was less than 0.5 cm. They were located at 65, 45, 30, and 20 cm from the anal verge. Once this was completed, I continued to withdraw the scope and examine the remainder of the colonic mucosa.?Once the scope was withdrawn to the level of the rectum, great care was taken to examine portions of the rectal folds.? Finally, the scope was withdrawn and the patient was brought to the same-day surgery recovery unit as the anesthetic wore off. ?The findings and instructions were shared with the patient prior to discharge.
[2022-09-24 06:20] VITALS: BP 115/67; PULSE 98; RESP 16; TEMP 36.4; O2SAT 97
--- NOTE | 2022-09-24 06:49 | ANES.PREOP_ITS ---
General Info Date of Service Date Performed: 09/24/22 Height: 5 ft 10 in Weight: 89.3 kg Body Mass Index (BMI): 28.2 Surgical Procedure: Operation Date: 09/24/22 07:35 Proposed Procedure Side Surgeon yeni Morales MD Meds Allergies and Home Medications Allergies Allergy/AdvReac Type Severity Reaction Status Date / Time amoxicillin Allergy Severe breathing Verified 09/24/22 06:35 difficuty and vomiting Penicillins Allergy Intermediate Skin Rash Verified 09/24/22 06:35 sulfamethoxazole Allergy Intermediate Skin Rash Verified 09/24/22 06:35 [From Bactrim] trimethoprim [From Bactrim] Allergy Intermediate Skin Rash Verified 09/24/22 06:35 oxycodone HCl [From Percocet] AdvReac Severe Contraindic Verified 09/24/22 06:35 ated oxycodone terephthalate AdvReac Severe Contraindic Verified 09/24/22 06:35 [From Percodan] ated Home Medication Medication Instructions Recorded levothyroxine 50 mcg tablet 50 mcg PO DAILY@0730 01/24/13 quetiapine 300 mg tablet (Seroquel) 300 mg PO HS 01/24/13 rosuvastatin 20 mg tablet (Crestor) 20 mg PO HS 03/22/17 nitroglycerin 0.4 mg sublingual 0.4 mg sublingual as directed 04/08/17 tablet (Nitrostat) cholecalciferol (vitamin D3) 25 1,000 unit PO DAILY 11/11/18 mcg (1,000 unit) tablet (Vitamin D3) pantoprazole 40 mg tablet,delayed 40 mg PO DAILY #30 tabs 04/25/19 release (Protonix) metoprolol succinate 50 mg 50 mg PO HS 05/10/19 tablet,extended release 24 hr acetylcysteine 600 mg capsule (NAC) 600 mg PO BID 05/16/19 citalopram 20 mg tablet 10 mg PO DAILY 05/16/19 diclofenac sodium 1 % topical gel 1 applic topical DIRECTED 04/30/20 (Voltaren) liraglutide 0.6 mg/0.1 mL (18 mg/3 1.8 mg subcut DAILY 06/19/20 mL) subcutaneous pen injector ([place] [employer]) isosorbide mononitrate 60 mg 60 mg PO HS 09/18/20 tablet,extended release 24 hr lidocaine 5 % topical patch 1 patch topical Q24H #4 ea 10/14/20 (Lidoderm) methocarbamol 500 mg tablet 500 mg PO Q6H PRN muscle spasm #14 11/07/20 tabs docusate sodium 100 mg capsule 100 mg PO DAILY PRN 01/07/21 (Colace) topiramate 25 mg tablet 25 mg PO HS 01/09/21 topiramate 50 mg tablet 50 mg PO HS 01/09/21 carboxymethylcellulose sodium 0.5 1 - 2 drp ophthalmic (eye) QID PRN 03/27/21 % eye drops (Refresh Tears) phenazopyridine 200 mg tablet 200 mg PO TID PRN 03/27/21 magnesium 200 mg tablet 400 mg PO DAILY 06/07/21 amlodipine 2.5 mg tablet 2.5 mg PO DAILY 08/18/21 finasteride 5 mg tablet 5 mg PO DAILY #90 tabs 08/18/21 mupirocin 2 % topical ointment 1 applic topical BID 09/14/21 potassium chloride 10 mEq 10 meq PO DAILY 09/14/21 capsule,extended release allopurinol 300 mg tablet 300 mg PO DAILY 04/23/22 metformin 1,000 mg tablet 1,000 mg PO BID 04/23/22 triamcinolone acetonide 0.1 % 1 applic topical BID 04/23/22 topical cream insulin detemir U-100 100 unit/mL 70 unit subcut BID 06/03/22 (3 mL) subcutaneous pen (Levemir FlexTouch U-100 Insulin) pregabalin 100 mg capsule 100 mg PO TID 06/03/22 ranolazine 500 mg tablet,extended 500 mg PO BID 06/10/22 release,12 hr cod liver oil 2 cap PO DAILY 06/19/22 lisinopril 20 mg tablet 30 mg PO DAILY 06/19/22 tramadol 50 mg tablet 50 mg PO QHS PRN pain 06/19/22 riboflavin (vitamin B2) 100 mg 400 mg PO .QD 06/25/22 tablet (Vitamin B-2) Current Visit Medications: Current Medications Generic Name Dose Route Start Last Admin Trade Name Freq PRN Reason Stop Dose Admin Hyoscyamine Sulfate 0.125 mg 09/23/22 19:47 Hyoscyamine 0.125 Mg Sl/Oral/Chew SL 09/24/22 19:46 PRN PRN Ringer's Solution 1,000 mls @ 80 mls/hr 09/24/22 06:00 IV 10/23/22 23:59 [facility]ION [facility] IV Miscellaneous Supplies 1 each 09/24/22 06:00 Iv Access IV 10/23/22 23:59 DIRECTED ALESSIO Ondansetron HCl 4 mg 09/23/22 19:47 Ondansetron 4 Mg/2 Ml Vial IVP Q4H PRN PRN Nausea / Vomiting Sodium Chloride 0 ml 09/24/22 06:00 Normal Saline Flush 10 Ml Syr IV 10/23/22 23:59 PRN PRN Sodium Chloride 0 ml 09/24/22 06:00 Normal Saline 10 Ml Vial IJ 10/23/22 23:59 DIRECTED PRN Sterile Water 0 ml 09/24/22 06:00 Water,Injection,Sterile 10 Ml Vial IJ 10/23/22 23:59 DIRECTED PRN PFSH Active Problems Active Problems: Problem Status Onset Code Hernando M20.40 Hypothyroidism Hyperlipidemia Hypertension Chest pain R07.9 Nail dystrophy L60.3 Low back pain M54.50 Lumbar radiculopathy M54.16 Compression fracture of lumbar vertebra S32.000A Chest pain R07.9 Unstable angina I20.0 Arthritis of right hip M16.11 Chest wall muscle strain S29.011A Chronic subdural hematoma I62.03 Chest pain R07.9 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 Neck pain M54.2 Hand weakness R29.898 Cubital tunnel syndrome on right G56.21 Lower urinary tract symptoms R39.9 Lumbar radiculitis M54.16 Lumbosacral spondylosis without myelopathy M47.817 Chronic rhinitis J31.0 Atypical chest pain R07.89 Urethral stricture 08/20/15 Sensory hearing loss, bilateral 04/09/14 H90.3 Sensorineural hearing loss, asymmetrical 05/12/13 H90.5 Mild cognitive impairment 01/31/18 G31.84 Hypertrophy of nasal turbinates 08/05/15 J34.3 Erectile dysfunction of organic origin 08/20/15 N52.9 Deviated nasal septum 08/05/15 J34.2 Thoracic spondylosis without myelopathy M47.814 Coronary artery disease I25.10 Hyperlipidemia E78.5 Diabetes mellitus type 2 in obese E11.9, E66.9 Medical History Medical History Anemia, iron deficiency Cecal volvulus Chronic low back pain Colon polyps Constipation, chronic Contusion of right hip Depression Diastasis recti DM type 2 (diabetes mellitus, type 2) Fatty liver GERD (gastroesophageal reflux disease) Gout H/O alcohol abuse Head trauma Headaches due to 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 History of rib fracture Hx of deep venous thrombosis Hx of traumatic brain injury Knee pain, right Left rib fracture Migraine headache Mild dementia MRSA infection Obstructive sleep apnea Pain in joint of right foot Postnasal drip (05/13/15) Rathke's pouch cyst Recurrent UTI Rhinorrhea Rib pain on left side Right sided weakness Shoulder pain Tinea pedis Urethral stricture UTI (urinary tract infection) UTI (urinary tract infection) Viral URI with cough Vitamin D deficiency Volvulus of cecum Surgical History Surgical History Appendectomy (06/01/16) Colonoscopy - MAC 2010-5year f/u 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 electroconvulsive therapy Extraction of cataract facial lesion removal Repair of inguinal hernia (08/05/17) right inguinal hernia repair by Dr Arroyo on 08/05/17 Repair of umbilical hernia Tobacco Smoking/Tobacco Use Status: Former Tobacco Use Alcohol Alcohol Intake: former Substance Use Substance use: Never Substance use type: does not use Vital Signs and Lab Results Vital Signs Most Recent Vital Signs in EMR: Most Recent Vital Signs Temp Pulse Resp BP Pulse Ox 36.4 C L 98 H 16 115/67 97 09/24/22 06:20 09/24/22 06:20 09/24/22 06:20 09/24/22 06:20 09/24/22 06:20 Lab Results Blood Type / Crossmatch: No Data to Display Complete Blood Count: White Blood Count 7.49 10^3/uL (4.4-10.8) 09/04/22 13:39 Red Blood Count 4.51 10^6/uL (4.36-5.78) 09/04/22 13:39 Hemoglobin 13.3 g/dL (13.5-17.5) L 09/04/22 13:39 Hematocrit 39.2 % (40.0-50.0) L 09/04/22 13:39 Platelet Count 170 10^3/uL (130-400) 09/04/22 13:39 Complete Metabolic Panel: Sodium 139 mmol/L (136-145) 09/04/22 13:39 Potassium 3.8 mmol/L (3.5-5.1) 09/04/22 13:39 Chloride 105 mmol/L (98-107) 09/04/22 13:39 Carbon Dioxide 22.4 mmol/L (21.0-32.0) 09/04/22 13:39 BUN 23 mg/dL (7-18) H 09/04/22 13:39 Creatinine 1.5 mg/dL (0.70-1.30) H 09/04/22 13:39 Est GFR (CKD-EPI 2020) 49.16 (mL/min/1.73m2) 09/04/22 13:39 Calcium 9.0 mg/dL (8.5-10.1) 09/04/22 13:39 Glucose 209 mg/dL (74-106) H 09/04/22 13:39 Liver Function Panel: No Data to Display Coagulation Panel: No Data to Display Cardiac Panel: No Data to Display Arterial Blood Gas: No Data to Display Venous Blood Gas: No Data to Display Pancreas Panel: No Data to Display Thyroid Panel: No Data to Display Infectious Disease: No Data to Display Blood Cultures: No Data to Display Toxicology Panel: No Data to Display Imaging and Studies Imaging and Studies Study information below may be from another EMR and interpreted by another provider. Please see original notes in EMR for more complete details. EKG Summary: Conclusion Sinus rhythm...normal P axis, V-rate 60- 99 Nonspecific T abnrm, anterolateral leads...T <-0.10mV, I aVL V2-V6 sinus rhythm at 96, normal axis, nonspecific T wave changes without major change from prior, no STEMI, nondiagnostic EKG Stress Test Summary: Stress ECG Conclusion 1. Resting electrocardiogram showed diffuse nondiagnostic ST-T abnormalities 2. Patient exercised on the Abad protocol and completed a workload of 5.51 METS 3. Normal heart rate and blood pressure response to exercise. Patient achieved 89% of predicted heart rate for age 4. Electrocardiographically the test was negative for myocardial ischemia 5. Atrial and ventricular ectopics were noted Torres Treadmill Score is 3.4 which is Moderate risk. Echocardiogram Summary: Conclusion Normal left ventricular wall thickness and chamber size. Estimated ejection fraction is 55%. Wall motion is normal Normal right ventricular size and systolic function Both atria are normal in size The aortic valve is trileaflet and sclerotic with trace regurgitation Mild mitral annular calcification. Trace to mild mitral regurgitation Normal tricuspid valve with trace regurgitation Dilated ascending aorta measuring 3.77 cm Anesthesia Assessment and Plan Anesthesia History Personal History: No History of Anesthesia Complications Family History: No Family History of Anesthesia Complications Exercise Tolerance Exercise Tolerance: Metabolic Equivalents<4 Pertinent Negatives Pertinent Negatives: No Symptoms of GERD Cardiac & Pulmonary Exam Cardiac Exam: Normal S1/S2 Heart Sounds Pulmonary Exam: Clear Bilateral Breath Sounds Implantable Cardiac Device Does patient have a Pacemaker or an ICD?: No Airway Exam Known Difficult Airway: No Mallampati Class: 3 Mouth Opening: Narrow (< 3cm) Thyromental Distance: Greater than 3 cm Neck Range of Motion: Full ROM Neck Circumference: Normal Teeth Condition: Edentulous ASA Classification ASA Score: ASA 3 Emergency Case?: No NPO Status NPO Status: NPO Clears >2 hours, Solids >8 hours Anesthesia Plan Resuscitation Status: Full Code Anesthesia Technique: General Anesthesia Airway Planned: Natural Airway Monitors Used: Standard Monitors
[2022-09-24 06:51] VITALS: BMI 28.2
[2022-09-24] MEDS: Lactated Ringers 1,000 ML 80 ML IV (06:57)
--- NOTE | 2022-09-24 07:45 | BOWEL_PTH ---
PATIENT: Fredo Osman LOC: [facility] U#:[id number] AGE/SX: 72/M ROOM: RE09/24/[address]: Howie Morales MD : [id number] BED: DIS: 09/24/2022 SPEC #: [id number] RECD: 09/24/22 12:55 STATUS: ALIZA RE #: [id number] ZEYAD: 09/24/22 07:[address]: Howie Morales DEPT: Surgical Specimen RECD BY: Emelina Webb ENTERED: 09/24/22 12:57 SP TYPE: Bowel OTHR DR: Alisa Ramirez Tissues: 1 - BIOPSY BOWEL 2 - BIOPSY BOWEL 3 - BIOPSY BOWEL 4 - BIOPSY BOWEL 5 - BIOPSY BOWEL Procedures: GROSS AND MICRO LEVEL 4 Comments: [id number]
[2022-09-24 08:04] VITALS: BP 121/65; PULSE 97; RESP 16; TEMP 36.6; O2SAT 96
--- NOTE | 2022-09-24 08:24 | W.ANESPOSTOP ---
Postoperative Evaluation Date, Time and Location Date Performed: 09/24/22 Time Performed: 08:05 Patient Location: Day Surgery Unit Vital Signs Most Recent Imported Vital Signs: Most Recent Vital Signs Temp Pulse Resp BP Pulse Ox 36.6 C 97 H 16 121/65 96 09/24/22 08:04 09/24/22 08:04 09/24/22 08:04 09/24/22 08:04 09/24/22 08:04 Pain Score Most Recent Pain Score: Most Recent Pain Score Pain Level 0 09/24/22 08:04 Assessment Mental Status: Awake (Alert & Oriented to Patient Baseline) Airway and Respiratory Function: Patent airway with normal (patient baseline) respiratory exam Cardiovascular Function: Hemodynamically Stable Hydration Status: Adequately Hydrated Nausea & Vomiting: No Nausea or Vomiting Pain: Pt. Denies Any Pain Peripheral Nerve Block: Patient did not receive a nerve block
[2022-09-24 08:34] VITALS: BP 130/78; PULSE 91; RESP 16; TEMP 36.5; O2SAT 97
== END 2022-09-24 09:00 | disposition home or self-care (01) ==
PROVIDERS: PCP Family Medicine; Visit Provider Surgery
PROC: 0DJD8ZZ Inspection of Lower Intestinal Tract, Via Natural or Artificial Opening Endoscopic (ICD-10-PCS; CPT 45378; principal; 2022-09-24 07:30)
DX: Z12.11 Encounter for screening for malignant neoplasm of colon (principal); K63.5 Polyp of colon; K59.00 Constipation, unspecified; Z86.010 Personal history of colon polyps
CPT/HCPCS: 45380; 88305

== ENCOUNTER 2022-10-07 16:42 | Outpatient (CLI) | payer MEDICARE, OTHER, SELFPAY ==
--- NOTE | 2022-10-07 14:00 | DI.RAD_ITS ---
Exam(s) XR LUMBAR SPINE COMPLETE EXAM: XR LUMBAR SPINE COMPLETE CLINICAL HISTORY: LBP with history of T12 comp fx, M54.50. TECHNIQUE: 2D digital imaging was performed of the lumbar spine. Five images were obtained. AP, la teral, right oblique, left oblique and L5-S1 spot views were obtained. COMPARISON: CR XR LUMBAR SPINE COMPLETE from 04/01/2021 CR XR LUMBAR SPINE COMP W FLEX/EX from 02/18/2022 FINDINGS: BONES: There is an old compression deformity of T12. No acute fractures identified. Endplate osteop hytes are seen at multiple levels of the lumbar spine. Degenerative changes of the facets at L5-S1 a re noted. There is a bone island again seen in the left iliac bone which is stable. DISKS: There is disc space narrowing at T12-L1 and L5-S1. ALIGNMENT: Lumbar spinal alignment is within normal limits. No spondylolysis or spondylolisthesis. SOFT TISSUE: Atherosclerosis. IMPRESSION: Stable degenerative changes in the lumbar spine. No significant change in appearance of the lumbar s pine compared to the prior examination. DATA REPOSITORY: RADIATION DOSE DELIVERED:
== END 2022-10-07 17:02 ==
LOC: DI 16:43
PROVIDERS: PCP Family Medicine; Visit Provider Preventive Medicine Occupational Medicine
DX: M54.50 Low back pain, unspecified (principal)
CPT/HCPCS: 72110

== ENCOUNTER 2022-10-23 14:43 | Emergency (ER) | payer MEDICARE, OTHER, SELFPAY ==
[2022-10-23 14:48] VITALS: BP 155/81; PULSE 92; RESP 16; TEMP 36.8; O2SAT 98
--- NOTE | 2022-10-23 15:06 | ED.GENADUL_ITS ---
Discharge Plan Disposition Patient Disposition: Home Condition: Good Discharge Details Clinical Impression: Abdominal pain Primary Care Provider: Alisa Ramirez ED Provider: Tim Oleary Harris Meds and New Rx's Prescriptions: Continued finasteride 5 mg tablet 5 mg PO DAILY Qty: 90 4RF phenazopyridine 200 mg Tablet 200 mg PO TID PRN Rx Instructions: For 2 days carboxymethylcellulose sodium [Refresh Tears] 0.5 % Drops 1 - 2 drp OPHTHALMIC (EYE) QID PRN acetylcysteine [NAC] 600 mg capsule 600 mg PO BID metoprolol succinate 50 mg tablet extended release 24 hr 50 mg PO HS citalopram 20 mg tablet 10 mg PO DAILY diclofenac sodium [Voltaren] 1 % gel 1 applic topical DIRECTED Rx Instructions: apply to single elbow, wrist or hand; for hand includes palm/fingers/back of hand nitroglycerin [Nitrostat] 0.4 MG tablet, sublingual 0.4 mg Sublingual as directed metformin 1,000 mg tablet 1,000 mg PO BID allopurinol 300 mg tablet 300 mg PO DAILY triamcinolone acetonide 0.1 % cream 1 applic topical BID pregabalin 100 mg capsule 100 mg PO TID Levemir FlexTouch U-100 Insuln 100 unit/mL (3 mL) insulin pen 70 unit subcut BID cod liver oil Capsule 2 cap PO DAILY Rx Instructions: 1,000mg / cap riboflavin (vitamin B2) [Vitamin B-2] 100 mg tablet 400 mg PO .QD levothyroxine 50 MCG tablet 50 mcg PO DAILY@0730 quetiapine [Seroquel] 300 MG tablet 300 mg PO HS rosuvastatin [Crestor] 20 MG tablet 20 mg PO HS lisinopril 20 mg tablet 30 mg PO DAILY isosorbide mononitrate 60 mg tablet extended release 24 hr 60 mg PO HS Rx Instructions: TAKE ALONG WITH 30MG TAB FOR TOTAL DAILY DOSE OF 90MG lidocaine [Lidoderm] 1 PATCH patch 1 patch Topical Q24H Qty: 4 0RF methocarbamol 500 mg tablet 500 mg PO Q6H PRN (Reason: muscle spasm) Qty: 14 0RF docusate sodium [Colace] 100 mg Capsule 100 mg PO DAILY PRN topiramate 25 mg tablet 25 mg PO HS Patient Comments: TAKE 1 TABLET BY MOUTH AT BEDTIME topiramate 50 mg tablet 50 mg PO HS Patient Comments: TAKE 1 TABLET BY MOUTH ONCE DAILY amlodipine 2.5 mg tablet 2.5 mg PO DAILY tramadol 50 mg tablet 50 mg PO QHS PRN (Reason: pain) ranolazine 500 mg tablet extended release 12 hr 500 mg PO BID Patient Comments: Take 1 tablet by mouth twice a day cholecalciferol (vitamin D3) [Vitamin D3] 1,000 unit Tablet 1,000 unit PO DAILY pantoprazole [Protonix] 40 mg tablet,delayed release (DR/EC) 40 mg PO DAILY Qty: 30 0RF Victoza 2-Thanh 0.6 mg/0.1 mL (18 mg/3 mL) pen injector 1.8 mg SUBCUT DAILY magnesium 200 mg Tablet 400 mg PO DAILY mupirocin 2 % Ointment 1 applic TOPICAL BID potassium chloride 10 mEq Capsule, Extended Release 10 meq PO DAILY Discharge Instructions Instructions: Abdominal Pain (ED) Additional Instructions: You were seen for left-sided abdominal pain. Your laboratory studies and CT scan were reassuring with no evidence of significant pathology. This may be abdominal wall pain since it is worse with movement. Please use acetaminophen and heat see if this improves over the weekend. Follow-up with primary care next week if no improvement. Return to ED for new or worsening pain, fever, vomiting, bloody diarrhea, other concerns. Medical Decision Making Elderly male presenting with at least 1 week of left-sided abdominal pain that is worse with movement and worse in the morning but without any other associated symptoms. His abdomen is soft and nondistended but he is tender along the left abdomen especially mid quadrant. He has some voluntary guarding. He has no CVAT. May be abdominal wall given worse with movement however given tenderness and age will obtain labs, urine, CT scan. Patient's laboratory studies with a normal white count. He has minimal anemia. Bicarb is a little low at 20 and a slight gap at 13. Glucose a little high at 220. Lipase a little high at 149. Urinalysis with small leukocyte esterase. There were 5-10 white cells and few bacteria. CT of the abdomen pelvis shows normal kidneys, normal pancreas. I do not believe the slightly elevated lipase is clinically significant. Also patient does not have CVAT and only 5-10 white cells in urine with normal-appearing kidneys would not presume pyelonephritis and would wait for culture. Pain likely abdominal wall pain. Will recommend acetaminophen and hot packs over the weekend and follow-up with primary care next week if not improving. Return precautions provided. Jose D patient's 3% watches 3 Lab Data Lab results reviewed: Yes I reviewed the patient's lab results. HPI General Mode of arrival: ambulatory . Date/Time Provider Initiated Documentation: 10/23/22 15:06 . Limitations to Documentation: no limitations . Information obtained by: patient . HPI Narrative: Patient presents to ED with left-sided abdominal pain that he has had for at least a week. Initially did not seek care because he thought it would just go away. Patient has had continued pain that is worse in the morning but present throughout the day. Finally called his PCP and was referred to the ED. He denies fever, cough, shortness of breath, chest pain, vomiting, diarrhea, back pain, urinary symptoms. He is having bowel movements regularly. Eating and drinking does not make the pain worse. Breathing does not make the pain worse. Movement does. Denies injury. Related Data Home Medications Medication Instructions Recorded Confirmed levothyroxine 50 mcg tablet 50 mcg PO DAILY@0730 01/24/13 10/23/22 quetiapine 300 mg tablet (Seroquel) 300 mg PO HS 01/24/13 10/23/22 rosuvastatin 20 mg tablet (Crestor) 20 mg PO HS 03/22/17 10/23/22 nitroglycerin 0.4 mg sublingual 0.4 mg sublingual as directed 04/08/17 10/23/22 tablet (Nitrostat) cholecalciferol (vitamin D3) 25 1,000 unit PO DAILY 11/11/18 10/23/22 mcg (1,000 unit) tablet (Vitamin D3) pantoprazole 40 mg tablet,delayed 40 mg PO DAILY #30 tabs 04/25/19 10/23/22 release (Protonix) metoprolol succinate 50 mg 50 mg PO HS 05/10/19 10/23/22 tablet,extended release 24 hr acetylcysteine 600 mg capsule (NAC) 600 mg PO BID 05/16/19 10/23/22 citalopram 20 mg tablet 10 mg PO DAILY 05/16/19 10/23/22 diclofenac sodium 1 % topical gel 1 applic topical DIRECTED 04/30/20 10/23/22 (Voltaren) liraglutide 0.6 mg/0.1 mL (18 mg/3 1.8 mg subcut DAILY 06/19/20 10/23/22 mL) subcutaneous pen injector (Victoza 2-Thanh) isosorbide mononitrate 60 mg 60 mg PO HS 09/18/20 10/23/22 tablet,extended release 24 hr lidocaine 5 % topical patch 1 patch topical Q24H #4 ea 10/14/20 10/23/22 (Lidoderm) methocarbamol 500 mg tablet 500 mg PO Q6H PRN muscle spasm #14 11/07/20 10/23/22 tabs docusate sodium 100 mg capsule 100 mg PO DAILY PRN 01/07/21 10/23/22 (Colace) topiramate 25 mg tablet 25 mg PO HS 01/09/21 10/23/22 topiramate 50 mg tablet 50 mg PO HS 01/09/21 10/23/22 carboxymethylcellulose sodium 0.5 1 - 2 drp ophthalmic (eye) QID PRN 03/27/21 10/23/22 % eye drops (Refresh Tears) phenazopyridine 200 mg tablet 200 mg PO TID PRN 03/27/21 10/23/22 magnesium 200 mg tablet 400 mg PO DAILY 06/07/21 10/23/22 amlodipine 2.5 mg tablet 2.5 mg PO DAILY 08/18/21 10/23/22 finasteride 5 mg tablet 5 mg PO DAILY #90 tabs 08/18/21 10/23/22 mupirocin 2 % topical ointment 1 applic topical BID 09/14/21 10/23/22 potassium chloride 10 mEq 10 meq PO DAILY 09/14/21 10/23/22 capsule,extended release allopurinol 300 mg tablet 300 mg PO DAILY 04/23/22 10/23/22 metformin 1,000 mg tablet 1,000 mg PO BID 04/23/22 10/23/22 triamcinolone acetonide 0.1 % 1 applic topical BID 04/23/22 10/23/22 topical cream insulin detemir U-100 100 unit/mL 70 unit subcut BID 06/03/22 10/23/22 (3 mL) subcutaneous pen (Levemir FlexTouch U-100 Insulin) pregabalin 100 mg capsule 100 mg PO TID 06/03/22 10/23/22 ranolazine 500 mg tablet,extended 500 mg PO BID 06/10/22 10/23/22 release,12 hr cod liver oil 2 cap PO DAILY 06/19/22 10/23/22 lisinopril 20 mg tablet 30 mg PO DAILY 06/19/22 10/23/22 tramadol 50 mg tablet 50 mg PO QHS PRN pain 06/19/22 10/23/22 riboflavin (vitamin B2) 100 mg 400 mg PO .QD 06/25/22 10/23/22 tablet (Vitamin B-2) Previous Rx's Medication Instructions Recorded pantoprazole 40 mg tablet,delayed 40 mg PO DAILY #30 tabs 04/25/19 release (Protonix) lidocaine 5 % topical patch 1 patch topical Q24H #4 ea 10/14/20 (Lidoderm) methocarbamol 500 mg tablet 500 mg PO Q6H PRN muscle spasm #14 11/07/20 tabs finasteride 5 mg tablet 5 mg PO DAILY #90 tabs 08/18/21 Allergies Allergy/AdvReac Type Severity Reaction Status Date / Time amoxicillin Allergy Severe breathing Verified 10/23/22 14:52 difficuty and vomiting Penicillins Allergy Intermediate Skin Rash Verified 10/23/22 14:52 sulfamethoxazole Allergy Intermediate Skin Rash Verified 10/23/22 14:52 [From Bactrim] trimethoprim [From Bactrim] Allergy Intermediate Skin Rash Verified 10/23/22 14:52 oxycodone HCl [From Percocet] AdvReac Severe Contraindic Verified 10/23/22 14:52 ated oxycodone terephthalate AdvReac Severe Contraindic Verified 10/23/22 14:52 [From Percodan] ated General Stated Complaint: Abd Prob MADELIN: 4 Review of Systems Narrative: per HPI PFSH All Active Problems (Updated 10/23/22 @ 17:13 by Tim Oleary MD) Abdominal pain (Acute) Hyperplastic colon polyp (Acute ~09/24/22) Tubular adenoma of colon (Acute ~09/24/22) Hammertoe (Acute) Hypothyroidism (Chronic) Hyperlipidemia (Acute) Hypertension (Chronic) Chest pain (Acute) Nail dystrophy (Acute) Lumbar radiculopathy (Acute) Compression fracture of lumbar vertebra (Acute) Chest pain (Acute) Unstable angina (Acute) Arthritis of right hip (Acute) Chest wall muscle strain (Acute) Chronic subdural hematoma (Chronic) Chest pain (Acute) Pituitary abnormality (Acute) Neck pain (Acute) Hand weakness (Acute) Cubital tunnel syndrome on right (Acute) Lower urinary tract symptoms (Chronic) Lumbar radiculitis (Acute) Lumbosacral spondylosis without myelopathy (Acute) Chronic rhinitis (Chronic) Atypical chest pain (Acute) Musculoskeletal; Negative NPI 04/29/2018 Urethral stricture (Acute 08/20/15) Sensory hearing loss, bilateral (Chronic 04/09/14) Sensorineural hearing loss, asymmetrical (Chronic 05/12/13) Mild cognitive impairment (Chronic 01/31/18) Hypertrophy of nasal turbinates (Chronic 08/05/15) 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) Deviated nasal septum (Chronic 08/05/15) Thoracic spondylosis without myelopathy (Chronic) Coronary artery disease (Chronic) Hyperlipidemia (Chronic) Diabetes mellitus type 2 in obese (Chronic) Medical History Anemia, iron deficiency Cecal volvulus Chronic low back pain Colon polyps Constipation, chronic Contusion of right hip Depression Diastasis recti DM type 2 (diabetes mellitus, type 2) Fatty liver GERD (gastroesophageal reflux disease) Gout H/O alcohol abuse Head trauma Headaches due to 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 History of rib fracture Hx of deep venous thrombosis Hx of traumatic brain injury Knee pain, right Left rib fracture Low back pain Migraine headache Mild dementia MRSA infection Obstructive sleep apnea Pain in joint of right foot Postnasal drip (05/13/15) Rathke's pouch cyst Recurrent UTI Rhinorrhea Rib pain on left side Right sided weakness Shoulder pain Tinea pedis Urethral stricture UTI (urinary tract infection) UTI (urinary tract infection) Viral URI with cough Vitamin D deficiency Volvulus of cecum Surgical History Appendectomy (06/01/16) Colonoscopy - MAC 2010-5year f/u 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 electroconvulsive therapy Extraction of cataract facial lesion removal History of colonoscopy with polypectomy (~09/24/22) Repair of inguinal hernia (08/05/17) right inguinal hernia repair by Dr Arroyo on 08/05/17 Repair of umbilical hernia Social History Smoking/Tobacco Use Status: Former Tobacco Use tobacco type: cigarettes Quit Date: 06/21/80 Pack-years: 5 Smoking risk assessment performed?: Yes Alcohol Intake: former Drug use: Never Substance use type: does not use Household members: spouse Housing: house Pets and animals: Yes Pets and animals: dog(s) Do you feel safe at home: Yes Do you feel safe in your relationship?: Yes Exam Narrative Exam Narrative: Const: WDWN elderly male in NAD. HEENT: NC/AT. Normal facial exam. Eyes: Normal conjunctiva and sclera. Neck: Supple. Trachea midline. Lungs: Normal respiratory effort. Lungs are clear. Cor: RRR without murmur/gallop. Good radial pulses. GI: Soft and ND. Tender along left abdomen, mid quadrant most tender with voluntary guarding. Back: No CVAT Neuro: A+O x 3. Normal speech, mentation, gait. Cranial nerves II - XII grossly intact. No gross motor or sensory deficit. Ext: No C/C/E. Skin: Warm and dry without rash. Course Vital Signs Vital signs: Vital Signs Temperature 98.2 F 10/23/22 14:48 Pulse 92 H 10/23/22 14:48 Respiratory Rate 16 10/23/22 14:48 Blood Pressure 155/81 H 10/23/22 14:48 Pulse Oximetry 98 10/23/22 14:48 Temperature 98.2 F 10/23/22 14:48 Temperature Source Temporal Artery Scan 10/23/22 14:48 Pulse 92 H 10/23/22 14:48 Respiratory Rate 16 10/23/22 14:48 Respiratory Effort Normal, Non-Labored 10/23/22 14:53 Blood Pressure 155/81 H 10/23/22 14:48 Pulse Oximetry 98 10/23/22 14:48 Pain Level 7 10/23/22 14:53
--- NOTE | 2022-10-23 15:15 | DI.CT_ITS ---
Exam(s) CT ABDOMEN PELVIS W EXAM: CT ABDOMEN PELVIS W CLINICAL HISTORY: left sided abdominal pain. TECHNIQUE: Imaging Protocol: Axial computed tomography images with coronal and sagittal reformatted images were created and reviewed CONTRAST MATERIAL: Intravenous: Omnipaque-350 100cc Oral: None COMPARISON: CT CT CHEST/ABD/PEL W from 05/21/2022 FINDINGS: VISUALIZED LUNG BASES: No nodules nor pleural effusions evident. Sternotomy wires noted ABDOMEN: There is no ascites. LIVER: Liver is hypodense implying element of steatosis. No discrete focal hepatic lesions. No dila heidi intrahepatic ducts. No dilated intrahepatic ducts. GALLBLADDER/BILIARY: Small calcified gallstone on the dependent wall of gallbladder. No gallbladder wall edema evident. None CBD is not dilated. PANCREAS: No evidence of pancreatic mass nor dilatation of the pancreatic duct. SPLEEN: Spleen is not enlarged. No obvious intrasplenic lesions. Splenic and portal veins are paten t. ADRENALS: There are no significant adrenal masses. KIDNEYS:There is a benign cyst in the medial cortex of the right kidney which measures 2.5 cm and carranza s not require further workup. There is a benign 8 millimeters smaller cyst in the left kidney, also not requiring further workup. No solid renal masses. No calculi nor hydronephrosis.. ABDOMINAL AORTA: Abdominal aorta is not enlarged. LYMPH NODES:There is no retroperitoneal nor paraaortic adenopathy. ABDOMINAL WALL: No evidence of significant anterior abdominal wall nor inguinal hernia. GI: Mobile cecum. Located anteriorly. Appendix appears to be surgically absent. No bowel obstructi on. No free air. No abscess. PELVIS: GI: Surgically absent appendix.No evidence of sigmoid diverticulitis. LYMPH NODES: There is no intrapelvic nor inguinal adenopathy. REPRODUCTIVE: Prostate size upper normal. Seminal vesicles unremarkable. URINARY BLADDER: No calculi nor obvious masses evident OSSEOUS: Sclerotic densities in the left hemipelvis probably benign bone island and unchanged from . IMPRESSION: 1. No obvious acute findings in the abdomen pelvis. 2. Cholelithiasis without evidence of acute cholecystitis nor dilatation of the biliary tree. 3. Mobile cecum located anteriorly. Appendix appears to be surgically absent. RADIATION DOSE DELIVERED: 1,574.27mGy.cm Total DLP DATA REPOSITORY: All CT scans at this facility are submitted to the National Radiology Data Registry (NRDR) Dose Index Registry (DIR) with the [employer] ([employer]). RADIATION OPTIMIZATION: All CT scans at this facility use at least one of these dose optimization te chniques: automated exposure control; mA and/or kV adjustment per patient size (includes targeted exa ms where dose is matched to clinical indication); or iterative reconstruction.
[2022-10-23 15:54] LABS: Abs Immature Grans 0.03 10^3/uL (0.0-0.06); Absolute Basophil Count 0.06 10^3/uL (0.0-0.2); Absolute Eosinophil Count 0.23 10^3/uL (0.0-0.7); Absolute Monocyte Count 0.53 10^3/uL (0.1-0.8); Absolute Neutrophil Count 5.26 10^3/uL (1.2-6.7); Basophils % 0.8; Eosinophils % 3.2; HCT 37.1 % (40.0-50.0); HGB 12.7 g/dL (13.5-17.5); Immature Grans % 0.4; Lymphocytes % 14.1; MCH 28.9 pg (27.0-33.0); MCHC 34.2 % (32.0-36.0); MCV 84 fL (80-95); MPV 8.9 fL (8.0-11.0); Monocytes % 7.5; Platelet Count 155 10^3/uL (130-400); RDW 14.7 % (11.8-14.1); RDW-SD 44.9 fL; WBC 7.11 10^3/uL (4.4-10.8)
[2022-10-23 16:13] LABS: ALT 25 U/L (16-63); AST 13 U/L (15-37); Albumin 3.9 g/dL (3.4-5.0); Alkaline Phosphatase 82 U/L (46-116); Anion Gap 13.1 mmol/L (3-11); BUN 17 mg/dL (7-18); Bilirubin, Total 0.4 mg/dL (0.2-1.0); CO2 19.9 mmol/L (21.0-32.0); CREATININE 1.4 mg/dL (0.70-1.30); Calcium 8.6 mg/dL (8.5-10.1); Chloride 106 mmol/L (98-107); Estimated GFR 53.07 (mL/min/1.73m2); Glucose 221 mg/dL (74-106); Lipase 149 U/L (16-77); Potassium 3.6 mmol/L (3.5-5.1); Sodium 139 mmol/L (136-145); Total Protein 7.2 g/dL (6.4-8.2)
[2022-10-23 16:26] LABS: Bilirubin Negative (Negative); Blood Negative (Negative); Clarity Clear (Clear); Glucose Negative (Negative); Ketones Negative (Negative); Leukocyte Esterase Small (Negative); Nitrite Negative (Negative); Urobilinogen 0.2 mg/dL (Up to 0.2)
[2022-10-23] MEDS: Normal Saline 1,000 ML 1000 ML IV (16:31)
[2022-10-23 16:38] LABS: Bacteria Few HPF (Negative); C & S Indicated? Yes; Casts Negative LPF (Negative); Crystals Negative HPF (Negative); Epithelial Cells Few HPF (Negative); Mucus Negative (Negative); RBC 0-2 HPF (0-2)
[2022-10-23] MEDS: Normal Saline - Diluent 50 ML VIAL IJ (16:40)
[2022-10-23] MEDS: Omnipaque 350 MG/ML 100 ML BTL IJ (16:41)
[2022-10-23] MEDS: Normal Saline Flush 10 ML SYR IVP (16:42)
--- NOTE | 2022-10-23 17:06 | DI.VRAD_ITS ---
PROCEDURE INFORMATION: Exam: CT Abdomen And Pelvis With Contrast Exam date and time: 10/23/2022 4:44 PM Age: 72 years old Clinical indication: Localized; Patient HX: Left sided abdominal pain TECHNIQUE: Imaging protocol: Computed tomography of the abdomen and pelvis with contrast. Total images: 1466 Contrast material: OMNIPAQUE 350; Contrast volume: 100 ml; Contrast route: INTRAVENOUS (IV); COMPARISON: CT CHEST/ABD/PEL W 05/21/2022 3:28 PM FINDINGS: Lungs: Lung bases are clear with no consolidation. No suspicious pulmonary masses. Pleural spaces: No pleural effusion or pneumothorax. Heart: Heart size is normal. No pericardial effusion. Liver: Normal. No mass. Gallbladder and bile ducts: Cholelithiasis with no evidence of cholecystitis. Pancreas: Normal. No ductal dilation. Spleen: Normal. No splenomegaly. Adrenal glands: Normal. No mass. Kidneys and ureters: Kidneys appear normal with no pyelonephritis, solid masses or stones. There are small simple cysts in both kidneys, with the largest on the right measuring up to 2.5 cm and the largest on the left measuring less than 1 cm, considered benign and requiring no further follow-up. There are no right or left ureteral stones or hydronephrosis. Stomach and bowel: Stomach, small bowel loops and colon demonstrate a nonobstructive bowel gas pattern. Appendix: Appendix is likely surgically absent. Intraperitoneal space: Unremarkable. No free air. No significant fluid collection. Vasculature: Aortoiliac, mesenteric and renal vascular calcification with no aneurysm. Lymph nodes: Unremarkable. No enlarged lymph nodes. Urinary bladder: Unremarkable as visualized. Reproductive: Unremarkable as visualized. Bones/joints: [id number] old T12 compression deformity, stable. Mild degenerative change of the spine, stable. Disc space narrowing and spurring at L5-S1, stable. Soft tissues: Unremarkable. IMPRESSION: 1. Cholelithiasis with no evidence of cholecystitis. 2. There are small simple cysts in both kidneys, with the largest on the right measuring up to 2.5 cm and the largest on the left measuring less than 1 cm, considered benign and requiring no further follow-up. 3. [id number] old T12 compression deformity, stable. Dictated and Authenticated by: Marika Marti MD. Ordering:JOEL Dumont MD
[2022-10-23 17:29] VITALS: BP 151/81; PULSE 98; RESP 18; TEMP 36.8; O2SAT 97
--- NOTE | 2022-10-26 09:11 | NUR.NOTE ---
Nursing Note: in to find antibiotic info
--- NOTE | 2022-10-31 09:37 | W.ED.FU ---
Date of service: 10/23/22 Follow Up Plan: Reviewed patient's urine culture results which shows a probable contaminated specimen. Reviewed patient's visit history and patient did have 5-10 WBCs and small amount of leukocyte esterase. Contacted patient with results and patient states 0 improvement of symptoms and that he still has not felt that great. Given that it has been over a week and patient still not feeling well will prescribe patient antibiotic (Keflex 500 mg twice daily for 5 days )to cover for possible urinary tract infection. Patient denied fever chills, severe vomiting, and otherwise sounded stable so I do not feel that patient needs to come to the emergency department for evaluation but he was recommended to follow-up with primary care provider if continuing to not improve. For severe worsening of symptoms patient encouraged to return the emergency department.
== END 2022-10-23 17:30 | disposition home or self-care (01) ==
PROVIDERS: Emergency Provider Emergency Medicine; PCP Family Medicine
DX: R10.9 Unspecified abdominal pain (principal); Z98.890 Other specified postprocedural states
CPT/HCPCS: 36415; 80053; 83690; 96360; 99285; 74177; 81003; 81015; 85025; 87086; 99283; J3490

== ENCOUNTER 2022-12-09 11:16 | Emergency (ER) | payer MEDICARE, OTHER, SELFPAY ==
[2022-12-09 11:22] VITALS: BP 126/68; PULSE 62; RESP 18; TEMP 37.1; O2SAT 96
[2022-12-09 12:09] LABS: Abs Immature Grans 0.03 10^3/uL (0.0-0.06); Absolute Basophil Count 0.09 10^3/uL (0.0-0.2); Absolute Eosinophil Count 0.19 10^3/uL (0.0-0.7); Absolute Lymphocyte Count 1.05 10^3/uL (1.2-3.4); Absolute Monocyte Count 0.49 10^3/uL (0.1-0.8); Absolute Neutrophil Count 4.73 10^3/uL (1.2-6.7); Basophils % 1.4; Eosinophils % 2.9; HCT 36.7 % (40.0-50.0); HGB 12.9 g/dL (13.5-17.5); Immature Grans % 0.5; MCH 29.6 pg (27.0-33.0); MCHC 35.1 % (32.0-36.0); MCV 84 fL (80-95); Monocytes % 7.4; Neutrophils % 71.8; Platelet Count 168 10^3/uL (130-400); RBC 4.36 10^6/uL (4.36-5.78); RDW 14.7 % (11.8-14.1); RDW-SD 45.2 fL; WBC 6.58 10^3/uL (4.4-10.8)
[2022-12-09 12:11] LABS: ESR 13 mm/hr (0-20)
[2022-12-09 12:22] LABS: ALT 26 U/L (16-63); AST 10 U/L (15-37); Albumin 4.1 g/dL (3.4-5.0); Alkaline Phosphatase 86 U/L (46-116); Anion Gap 10.9 mmol/L (3-11); BUN 29 mg/dL (7-18); Bilirubin, Total 0.3 mg/dL (0.2-1.0); CO2 21.1 mmol/L (21.0-32.0); CREATININE 1.9 mg/dL (0.70-1.30); Calcium 8.9 mg/dL (8.5-10.1); Chloride 104 mmol/L (98-107); Estimated GFR 36.79 (mL/min/1.73m2); Glucose 234 mg/dL (74-106); Potassium 3.9 mmol/L (3.5-5.1); Sodium 136 mmol/L (136-145); Total Protein 7.3 g/dL (6.4-8.2); Uric Acid 5.5 mg/dL (3.5-7.2)
--- NOTE | 2022-12-09 12:22 | DI.RAD_ITS ---
Exam(s) XR FOOT RT COMPLETE EXAM: XR FOOT RT COMPLETE CLINICAL HISTORY: 5th metatarsal. TECHNIQUE: 2D digital imaging was performed of the right foot. Three images were obtained. AP, obl ique and lateral views were obtained. COMPARISON: CR,XR XR FOOT RT COMPLETE from 01/10/2022 FINDINGS: BONES: No acute fracture is present. No bony destructive lesion is seen. JOINTS: No dislocation present. SOFT TISSUE: Normal. IMPRESSION: No acute abnormality. DATA REPOSITORY: RADIATION DOSE DELIVERED:
--- NOTE | 2022-12-09 12:22 | DI.RAD_ITS ---
Exam(s) XR FOOT LT COMPLETE EXAM: XR FOOT LT COMPLETE CLINICAL HISTORY: great toe. TECHNIQUE: 2D digital imaging was performed of the left foot. Three images were obtained. AP, obli que and lateral views were obtained. COMPARISON: CR LEFT FOOT COMPLETE from 08/26/2008 FINDINGS: BONES: No acute fracture is present. No bony destructive lesion is seen. No erosions are seen. JOINTS: No dislocation present. There is again seen a fusion of the interphalangeal joint of the grea t toe which is unremarkable. Mild joint space narrowing is seen at the 1st MTP joint. SOFT TISSUE: Normal. IMPRESSION: No acute abnormality. DATA REPOSITORY: RADIATION DOSE DELIVERED:
--- NOTE | 2022-12-09 15:04 | ED.GENADUL_ITS ---
Discharge Plan Disposition Patient Disposition: Home Discharge Details Clinical Impression: Arthralgia of both feet Primary Care Provider: Alisa Ramirez ED Provider: Emelina Jung Home Meds and New Rx's Prescriptions: Continued finasteride 5 mg tablet 5 mg PO DAILY Qty: 90 4RF phenazopyridine 200 mg Tablet 200 mg PO TID PRN Rx Instructions: For 2 days carboxymethylcellulose sodium [Refresh Tears] 0.5 % Drops 1 - 2 drp OPHTHALMIC (EYE) QID PRN acetylcysteine [NAC] 600 mg capsule 600 mg PO BID metoprolol succinate 50 mg tablet extended release 24 hr 50 mg PO HS citalopram 20 mg tablet 10 mg PO DAILY diclofenac sodium [Voltaren] 1 % gel 1 applic topical DIRECTED Rx Instructions: apply to single elbow, wrist or hand; for hand includes palm/fingers/back of hand polyethylene glycol 3350 [Miralax] 17 gram/dose powder 17 g PO DAILY nitroglycerin [Nitrostat] 0.4 MG tablet, sublingual 0.4 mg Sublingual as directed metformin 1,000 mg tablet 1,000 mg PO BID allopurinol 300 mg tablet 300 mg PO DAILY triamcinolone acetonide 0.1 % cream 1 applic topical BID pregabalin 100 mg capsule 100 mg PO TID cod liver oil Capsule 2 cap PO DAILY Rx Instructions: 1,000mg / cap riboflavin (vitamin B2) [Vitamin B-2] 100 mg tablet 400 mg PO .QD Levemir FlexTouch U100 Insulin 100 unit/mL (3 mL) insulin pen 75 unit subcut BID levothyroxine 50 MCG tablet 50 mcg PO DAILY@0730 quetiapine [Seroquel] 300 MG tablet 300 mg PO HS rosuvastatin [Crestor] 20 MG tablet 20 mg PO HS lisinopril 20 mg tablet 30 mg PO DAILY isosorbide mononitrate 60 mg tablet extended release 24 hr 60 mg PO HS Rx Instructions: TAKE ALONG WITH 30MG TAB FOR TOTAL DAILY DOSE OF 90MG lidocaine [Lidoderm] 1 PATCH patch 1 patch Topical Q24H Qty: 4 0RF methocarbamol 500 mg tablet 500 mg PO Q6H PRN (Reason: muscle spasm) Qty: 14 0RF docusate sodium [Colace] 100 mg Capsule 100 mg PO DAILY PRN topiramate 25 mg tablet 25 mg PO HS Patient Comments: TAKE 1 TABLET BY MOUTH AT BEDTIME topiramate 50 mg tablet 50 mg PO HS Patient Comments: TAKE 1 TABLET BY MOUTH ONCE DAILY amlodipine 2.5 mg tablet 2.5 mg PO DAILY tramadol 50 mg tablet 50 mg PO QHS PRN (Reason: pain) ranolazine 500 mg tablet extended release 12 hr 500 mg PO BID Patient Comments: Take 1 tablet by mouth twice a day cholecalciferol (vitamin D3) [Vitamin D3] 25 mcg (1,000 unit) tablet 1,000 unit PO DAILY pantoprazole [Protonix] 40 mg tablet,delayed release (DR/EC) 40 mg PO DAILY Qty: 30 0RF Victoza 2-Thanh 0.6 mg/0.1 mL (18 mg/3 mL) pen injector 1.8 mg SUBCUT DAILY magnesium 200 mg Tablet 400 mg PO DAILY mupirocin 2 % Ointment 1 applic TOPICAL BID potassium chloride 10 mEq Capsule, Extended Release 10 meq PO DAILY Discharge Instructions Instructions: Leg Pain (ED) Additional Instructions: Take Tylenol 650 mg every 6 hours as needed for pain, do not exceed 3 g of Tylenol daily you may soak your feet in Epsom salt and apply Voltaren gel after your creatinine has increased slightly, indicating slightly worsening kidney function, I do recommend following up with your doctor regarding this Please return earlier should you have fever, chills, worsening pain, or with any new or progressing complaints Referrals: Alisa Ramirez MD [Primary Care Provider] - Medical Decision Making 72-year-old gentleman, neurovascularly intact presenting with bilateral foot pain, to the lateral foot and his left great toe, no evidence of obvious gouty arthritis at time of my assessment, uric acid negative, mildly elevated, he is encouraged to hydrate and follow-up with his PCP for recheck of this, he has a history of chronic renal disease and his level has been as high as 1.7 in the past, he is 1.9 today Distal pulses are intact to bilateral lower extremities, no abdominal bruit or pulsatile mass, prior CT abdomen chest and pelvis do not show evidence of abdominal occlusion There is no evidence of infectious etiology of complaints, he has no swelling or redness noted to the affected areas, I did consider steroids, however his blood sugars already elevated and he is not diabetic He will take Tylenol as needed for pain He will follow-up with his primary care physician for reassessment and return earlier should he have new or worsening complaints Discharged home in stable condition with stable vitals HPI General Date/Time Provider Initiated Documentation: 12/09/22 11:34 . HPI Narrative: This 72-year-old male presents with bilateral foot pain that started this morning. He states when he awoke from bed he noticed pain to his lateral right foot and left great toe. He denies any additional complaints at this time. He denies any discoloration. He denies any fever or chills. He denies any sensation change. Denies any chest pain or shortness of breath. Denies any dizziness or weakness. History of gout, states this feels similar. Denies generalized pain, localized to specific areas. Related Data Home Medications Medication Instructions Recorded Confirmed levothyroxine 50 mcg tablet 50 mcg PO DAILY@0730 01/24/13 12/09/22 quetiapine 300 mg tablet (Seroquel) 300 mg PO HS 01/24/13 12/09/22 rosuvastatin 20 mg tablet (Crestor) 20 mg PO HS 03/22/17 12/09/22 nitroglycerin 0.4 mg sublingual 0.4 mg sublingual as directed 04/08/17 12/09/22 tablet (Nitrostat) pantoprazole 40 mg tablet,delayed 40 mg PO DAILY #30 tabs 04/25/19 12/09/22 release (Protonix) metoprolol succinate 50 mg 50 mg PO HS 05/10/19 12/09/22 tablet,extended release 24 hr acetylcysteine 600 mg capsule (NAC) 600 mg PO BID 05/16/19 12/09/22 citalopram 20 mg tablet 10 mg PO DAILY 05/16/19 12/09/22 diclofenac sodium 1 % topical gel 1 applic topical DIRECTED 04/30/20 12/09/22 (Voltaren) liraglutide 0.6 mg/0.1 mL (18 mg/3 1.8 mg subcut DAILY 06/19/20 12/09/22 mL) subcutaneous pen injector (Victoza 2-Thanh) isosorbide mononitrate 60 mg 60 mg PO HS 09/18/20 12/09/22 tablet,extended release 24 hr lidocaine 5 % topical patch 1 patch topical Q24H #4 ea 10/14/20 12/09/22 (Lidoderm) methocarbamol 500 mg tablet 500 mg PO Q6H PRN muscle spasm #14 11/07/20 12/09/22 tabs docusate sodium 100 mg capsule 100 mg PO DAILY PRN 01/07/21 12/09/22 (Colace) topiramate 25 mg tablet 25 mg PO HS 01/09/21 12/09/22 topiramate 50 mg tablet 50 mg PO HS 01/09/21 12/09/22 carboxymethylcellulose sodium 0.5 1 - 2 drp ophthalmic (eye) QID PRN 03/27/21 12/09/22 % eye drops (Refresh Tears) phenazopyridine 200 mg tablet 200 mg PO TID PRN 03/27/21 12/09/22 magnesium 200 mg tablet 400 mg PO DAILY 06/07/21 12/09/22 amlodipine 2.5 mg tablet 2.5 mg PO DAILY 08/18/21 12/09/22 finasteride 5 mg tablet 5 mg PO DAILY #90 tabs 08/18/21 12/09/22 mupirocin 2 % topical ointment 1 applic topical BID 09/14/21 12/09/22 potassium chloride 10 mEq 10 meq PO DAILY 09/14/21 12/09/22 capsule,extended release allopurinol 300 mg tablet 300 mg PO DAILY 04/23/22 12/09/22 metformin 1,000 mg tablet 1,000 mg PO BID 04/23/22 12/09/22 triamcinolone acetonide 0.1 % 1 applic topical BID 04/23/22 12/09/22 topical cream pregabalin 100 mg capsule 100 mg PO TID 06/03/22 12/09/22 ranolazine 500 mg tablet,extended 500 mg PO BID 06/10/22 12/09/22 release,12 hr cod liver oil 2 cap PO DAILY 06/19/22 12/09/22 lisinopril 20 mg tablet 30 mg PO DAILY 06/19/22 12/09/22 tramadol 50 mg tablet 50 mg PO QHS PRN pain 06/19/22 12/09/22 riboflavin (vitamin B2) 100 mg 400 mg PO .QD 06/25/22 12/09/22 tablet (Vitamin B-2) cholecalciferol (vitamin D3) 25 1,000 unit PO DAILY 11/25/22 12/09/22 mcg (1,000 unit) tablet (Vitamin D3) insulin detemir U-100 100 unit/mL 75 unit subcut BID 11/25/22 12/09/22 (3 mL) subcutaneous pen (Levemir FlexTouch U-100 Insulin) polyethylene glycol 3350 17 17 g PO DAILY 11/25/22 12/09/22 gram/dose oral powder (Miralax) Previous Rx's Medication Instructions Recorded pantoprazole 40 mg tablet,delayed 40 mg PO DAILY #30 tabs 04/25/19 release (Protonix) lidocaine 5 % topical patch 1 patch topical Q24H #4 ea 10/14/20 (Lidoderm) methocarbamol 500 mg tablet 500 mg PO Q6H PRN muscle spasm #14 11/07/20 tabs finasteride 5 mg tablet 5 mg PO DAILY #90 tabs 08/18/21 Allergies Allergy/AdvReac Type Severity Reaction Status Date / Time amoxicillin Allergy Severe breathing Verified 12/07/22 12:16 difficuty and vomiting Penicillins Allergy Intermediate Skin Rash Verified 12/07/22 12:16 sulfamethoxazole Allergy Intermediate Skin Rash Verified 12/07/22 12:16 [From Bactrim] trimethoprim [From Bactrim] Allergy Intermediate Skin Rash Verified 12/07/22 12:16 oxycodone HCl [From Percocet] AdvReac Severe Contraindic Verified 12/07/22 12:16 ated oxycodone terephthalate AdvReac Severe Contraindic Verified 12/07/22 12:16 [From Percodan] ated General Stated Complaint: Orthopedic MADELIN: 4 PFSH All Active Problems (Updated 12/09/22 @ 12:51 by ROSAURA Umanzor) Arthralgia of both feet (Acute) Shoulder pain, left (Acute) Hyperplastic colon polyp (Acute ~09/24/22) Tubular adenoma of colon (Acute ~09/24/22) Hammertoe (Acute) Hypothyroidism (Chronic) Hyperlipidemia (Acute) Hypertension (Chronic) Chest pain (Acute) Nail dystrophy (Acute) Lumbar radiculopathy (Acute) Compression fracture of lumbar vertebra (Acute) Chest pain (Acute) Unstable angina (Acute) Arthritis of right hip (Acute) Chest wall muscle strain (Acute) Chronic subdural hematoma (Chronic) Chest pain (Acute) Pituitary abnormality (Acute) Neck pain (Acute) Hand weakness (Acute) Cubital tunnel syndrome on right (Acute) Lower urinary tract symptoms (Chronic) Lumbar radiculitis (Acute) Lumbosacral spondylosis without myelopathy (Acute) Chronic rhinitis (Chronic) Atypical chest pain (Acute) Musculoskeletal; Negative NPI 04/29/2018 Urethral stricture (Acute 08/20/15) Sensory hearing loss, bilateral (Chronic 04/09/14) Sensorineural hearing loss, asymmetrical (Chronic 05/12/13) Mild cognitive impairment (Chronic 01/31/18) Hypertrophy of nasal turbinates (Chronic 08/05/15) 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) Deviated nasal septum (Chronic 08/05/15) Thoracic spondylosis without myelopathy (Chronic) Coronary artery disease (Chronic) Hyperlipidemia (Chronic) Diabetes mellitus type 2 in obese (Chronic) Medical History (Updated 12/09/22 @ 12:51 by ROSAURA Umanzor) Anemia, iron deficiency At risk for falling Ataxia Cecal volvulus Chronic low back pain Colon polyps Constipation, chronic Contusion of right hip Decreased hearing of both ears Depression Diastasis recti DM type 2 (diabetes mellitus, type 2) Fatty liver Foot callus Foot pain GERD (gastroesophageal reflux disease) Gout H/O alcohol abuse Head trauma Headaches due to 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 History of rib fracture Hx of deep venous thrombosis Hx of traumatic brain injury Knee pain, right Left arm pain Left cervical radiculopathy Left rib fracture Low back pain Migraine headache Mild dementia MRSA infection Obstructive sleep apnea Pain in joint of right foot Pain, joint, shoulder region, left Peripheral neuropathy Postnasal drip (05/13/15) Rathke's pouch cyst Recurrent UTI Rhinorrhea Rib pain on left side Right sided weakness Shoulder pain Sleep apnea Tinea pedis Traumatic brain injury Urethral stricture UTI (urinary tract infection) UTI (urinary tract infection) Viral URI with cough Vitamin B12 deficiency Vitamin D deficiency Volvulus of cecum Surgical History Appendectomy (06/01/16) Colonoscopy - MAC 2009-5year f/u 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 electroconvulsive therapy Extraction of cataract facial lesion removal History of colonoscopy with polypectomy (~09/24/22) Repair of inguinal hernia (08/05/17) right inguinal hernia repair by Dr Arroyo on 08/05/17 Repair of umbilical hernia Social History Smoking/Tobacco Use Status: Former Tobacco Use tobacco type: cigarettes Quit Date: 06/21/80 Pack-years: 5 Smoking risk assessment performed?: Yes Alcohol Intake: former Drug use: Never Substance use type: does not use Household members: spouse Housing: house Pets and animals: Yes Pets and animals: dog(s) Do you feel safe at home: Yes Do you feel safe in your relationship?: Yes Course Vital Signs Vital signs: Vital Signs Temperature 37.1 C 12/09/22 11:22 Pulse 62 12/09/22 11:22 Respiratory Rate 18 12/09/22 11:22 Blood Pressure 126/68 12/09/22 11:22 Pulse Oximetry 96 12/09/22 11:22 Temperature 37.1 C 12/09/22 11:22 Temperature Source Oral 12/09/22 11:22 Pulse 62 12/09/22 11:22 Respiratory Rate 18 12/09/22 11:22 Respiratory Effort Normal, Non-Labored 12/09/22 11:27 Blood Pressure 126/68 12/09/22 11:22 Blood Pressure Position Sitting 12/09/22 11:22 Pulse Oximetry 96 12/09/22 11:22 Oxygen Delivery Method Room Air 12/09/22 11:22 Oxygen Flow Rate 0 12/09/22 11:22 Pain Level 7 12/09/22 12:11 Lab/Test Results Lab/Test Results: Laboratory Tests Range/Units 12/09/22 12/09/22 12/09/22 12:00 12:00 12:00 WBC (4.4-10.8) 10^3/uL 6.58 RBC (4.36-5.78) 10^6/uL 4.36 Hgb (13.5-17.5) g/dL 12.9 L Hct (40.0-50.0) % 36.7 L MCV (80-95) fL 84 MCH (27.0-33.0) pg 29.6 MCHC (32.0-36.0) % 35.1 RDW (11.8-14.1) % 14.7 H Plt Count (130-400) 10^3/uL 168 MPV (8.0-11.0) fL 9.0 Immature Gran % 0.5 Neutrophils % 71.8 Lymphocytes % 16.0 Monocytes % 7.4 Eosinophils % 2.9 Basophils % 1.4 Nucleated RBC % (0.0-0.3) % 0.0 Absolute Neutrophils (1.2-6.7) 10^3/uL 4.73 Absolute Lymphocytes (1.2-3.4) 10^3/uL 1.05 L Absolute Monocytes (0.1-0.8) 10^3/uL 0.49 Absolute Eosinophils (0.0-0.7) 10^3/uL 0.19 Absolute Basophils (0.0-0.2) 10^3/uL 0.09 ESR (0-20) mm/hr 13 Sodium (136-145) mmol/L 136 Potassium (3.5-5.1) mmol/L 3.9 Chloride (98-107) mmol/L 104 Carbon Dioxide (21.0-32.0) mmol/L 21.1 Anion Gap (3-11) mmol/L 10.9 BUN (7-18) mg/dL 29 H Creatinine (0.70-1.30) mg/dL 1.9 H Est GFR (CKD-EPI 2020) (mL/min/1.73m2) 36.79 Glucose (74-106) mg/dL 234 H Uric Acid (3.5-7.2) mg/dL 5.5 Calcium (8.5-10.1) mg/dL 8.9 Total Bilirubin (0.2-1.0) mg/dL 0.3 AST (15-37) U/L 10 L ALT (16-63) U/L 26 Alkaline Phosphatase (46-116) U/L 86 Total Protein (6.4-8.2) g/dL 7.3 Albumin (3.4-5.0) g/dL 4.1
== END 2022-12-09 13:12 | disposition home or self-care (01) ==
PROVIDERS: Emergency Provider Physician Assistant; PCP Family Medicine
DX: M25.571 Pain in right ankle and joints of right foot (principal); M25.572 Pain in left ankle and joints of left foot
CPT/HCPCS: 36415; 80053; 85652; 99283; 73630; 84550; 85025

== ENCOUNTER 2022-12-15 19:31 | Outpatient (REF) | payer MEDICARE, OTHER, SELFPAY ==
[2022-12-15 20:21] LABS: Bilirubin Negative (Negative); Blood Negative (Negative); Clarity Clear (Clear); Glucose Negative (Negative); Ketones Negative (Negative); Leukocyte Esterase Negative (Negative); Nitrite Negative (Negative); Specific Gravity 1.015 (1.005-1.025); Urobilinogen 0.2 mg/dL (Up to 0.2); pH 5.5 (5-8)
== END 2022-12-15 19:32 | disposition home or self-care (01) ==
LOC: NCHCN 19:31
PROVIDERS: PCP Family Medicine; Visit Provider Family Medicine
DX: R10.9 Unspecified abdominal pain (principal)
CPT/HCPCS: 81003

== ENCOUNTER 2022-12-16 10:43 | Emergency (ER) | payer MEDICARE, OTHER, SELFPAY ==
[2022-12-16 10:55] VITALS: BP 124/75; PULSE 98; RESP 18; TEMP 36.7; O2SAT 97
[2022-12-16] MEDS: ACETAMINOPHEN 1,000 MG/100 ML BTL 400 MG IVPB (12:27)
[2022-12-16] MEDS: Lidocaine 5% Patch 1 PATCH TP (12:29)
[2022-12-16] MEDS: Ondansetron 4 MG/2 ML VIAL IVP (12:29)
[2022-12-16] MEDS: Dexamethasone 4 MG/ML VIAL IVP (12:29)
[2022-12-16 12:53] LABS: Abs Immature Grans 0.02 10^3/uL (0.0-0.06); Absolute Basophil Count 0.01 10^3/uL (0.0-0.2); Absolute Eosinophil Count 0.23 10^3/uL (0.0-0.7); Absolute Monocyte Count 0.52 10^3/uL (0.1-0.8); Absolute Neutrophil Count 3.76 10^3/uL (1.2-6.7); Basophils % 0.2; Eosinophils % 4.2; HCT 34.8 % (40.0-50.0); HGB 11.8 g/dL (13.5-17.5); Immature Grans % 0.4; Lymphocytes % 18.1; MCH 28.7 pg (27.0-33.0); MCHC 33.9 % (32.0-36.0); MCV 85 fL (80-95); Monocytes % 9.4; Neutrophils % 67.7; Platelet Count 147 10^3/uL (130-400); RBC 4.11 10^6/uL (4.36-5.78); RDW 14.6 % (11.8-14.1); RDW-SD 44.9 fL; WBC 5.54 10^3/uL (4.4-10.8)
[2022-12-16 12:56] LABS: ALT 19 U/L (16-63); AST 24 U/L (15-37); Albumin 3.8 g/dL (3.4-5.0); Alkaline Phosphatase 75 U/L (46-116); Anion Gap 12.3 mmol/L (3-11); BUN 13 mg/dL (7-18); Bilirubin, Total 0.4 mg/dL (0.2-1.0); C-Reactive Protein 0.17 mg/dL (0.0-0.3); CO2 20.7 mmol/L (21.0-32.0); CREATININE 1.3 mg/dL (0.70-1.30); Calcium 8.7 mg/dL (8.5-10.1); Chloride 104 mmol/L (98-107); Estimated GFR 58.01 (mL/min/1.73m2); Glucose 200 mg/dL (74-106); Potassium 4.1 mmol/L (3.5-5.1); Sodium 137 mmol/L (136-145); Total Protein 6.9 g/dL (6.4-8.2)
[2022-12-16] MEDS: fentaNYL 100 MCG/2 ML VIAL 25 MCG IVP (13:14)
--- NOTE | 2022-12-16 13:30 | DI.CT_ITS ---
Exam(s) CT ABDOMEN PELVIS WO EXAM: CT ABDOMEN PELVIS WO CLINICAL HISTORY: right flank and pelvic pain. TECHNIQUE: Imaging Protocol: Axial computed tomography images with coronal and sagittal reformatted images were created and reviewed. COMPARISON: CT CT THORAX ABD/PEL CTA from 04/20/[address] ABDOMEN PELVIS W from 10/23/2022 FINDINGS: ABDOMEN: Lung Bases: Coronary artery calcifications and/or stents. Liver: Normal density. No measurable mass. Gallbladder and biliary tract: No radiodense calculus or biliary ductal dilation. Pancreas: Normal density, no abnormal calcifications or inflammatory process. Spleen: Normal. Kidneys: Normal size, contour and axis.There is again seen a 2-3 mm calcification within or adjacent to the left ureter (series 3, image 771). This is been seen on multiple prior examinations. There i s no dilatation of the proximal collecting system. No right nephrolithiasis or hydronephrosis is see n. There is a stable cyst in the lower pole of the right kidney. No follow-up is recommended. Adrenal glands: No mass is seen. Lymph nodes: Within normal limits. Abdominal Aorta: Abdominal portion non-dilated. Atherosclerosis. PELVIS: Bladder:There is mild diffuse thickening of the wall of the urinary bladder. No bladder stones are p resent. Bowel: No obstruction or bowel wall thickening. There is no evidence of appendicitis. Peritoneal cavity: No ascites, collection or mesenteric inflammatory response. No free air. Reproductive organs: Unremarkable as visualized. Bones: Within normal limits. Stable sclerotic foci in the bones in the pelvis and left femur. No agg ressive osseous lesions are seen. Soft Tissues: Within normal limits. IMPRESSION: 1. No evidence of right nephrolithiasis or hydronephrosis. 2. Mild degenerative changes of the right hip. 3. Stable 2-3 mm calcification within or adjacent to the left ureter. This is unchanged compared to multiple prior examinations. There is no hydronephrosis present. 4. Findings were discussed with the emergency department on the date of the examination. RADIATION DOSE DELIVERED: 1,311.4mGy.cm Total DLP DATA REPOSITORY: All CT scans at this facility are submitted to the National Radiology Data Registry (NRDR) Dose Index Registry (DIR) with the [employer] ([employer]). RADIATION OPTIMIZATION: All CT scans at this facility use at least one of these dose optimization te chniques: automated exposure control; mA and/or kV adjustment per patient size (includes targeted exa ms where dose is matched to clinical indication); or iterative reconstruction.
--- NOTE | 2022-12-16 13:34 | W.ED.GENAD ---
Discharge Plan Disposition Patient Disposition: Home Discharge Details Clinical Impression: Acute hip pain Primary Care Provider: Alisa Ramirez ED Provider: Emelina Jung Home Meds and New Rx's Prescriptions: Continued finasteride 5 mg tablet 5 mg PO DAILY Qty: 90 4RF phenazopyridine 200 mg Tablet 200 mg PO TID PRN Rx Instructions: For 2 days carboxymethylcellulose sodium [Refresh Tears] 0.5 % Drops 1 - 2 drp OPHTHALMIC (EYE) QID PRN acetylcysteine [NAC] 600 mg capsule 600 mg PO BID metoprolol succinate 50 mg tablet extended release 24 hr 50 mg PO HS citalopram 20 mg tablet 10 mg PO DAILY diclofenac sodium [Voltaren] 1 % gel 1 applic topical DIRECTED Rx Instructions: apply to single elbow, wrist or hand; for hand includes palm/fingers/back of hand polyethylene glycol 3350 [Miralax] 17 gram/dose powder 17 g PO DAILY nitroglycerin [Nitrostat] 0.4 MG tablet, sublingual 0.4 mg Sublingual as directed metformin 1,000 mg tablet 1,000 mg PO BID allopurinol 300 mg tablet 300 mg PO DAILY triamcinolone acetonide 0.1 % cream 1 applic topical BID pregabalin 100 mg capsule 100 mg PO TID cod liver oil Capsule 2 cap PO DAILY Rx Instructions: 1,000mg / cap riboflavin (vitamin B2) [Vitamin B-2] 100 mg tablet 400 mg PO .QD Levemir FlexTouch U100 Insulin 100 unit/mL (3 mL) insulin pen 75 unit subcut BID levothyroxine 50 MCG tablet 50 mcg PO DAILY@0730 quetiapine [Seroquel] 300 MG tablet 300 mg PO HS rosuvastatin [Crestor] 20 MG tablet 20 mg PO HS lisinopril 20 mg tablet 30 mg PO DAILY isosorbide mononitrate 60 mg tablet extended release 24 hr 60 mg PO HS Rx Instructions: TAKE ALONG WITH 30MG TAB FOR TOTAL DAILY DOSE OF 90MG lidocaine [Lidoderm] 1 PATCH patch 1 patch Topical Q24H Qty: 4 0RF methocarbamol 500 mg tablet 500 mg PO Q6H PRN (Reason: muscle spasm) Qty: 14 0RF docusate sodium [Colace] 100 mg Capsule 100 mg PO DAILY PRN topiramate 25 mg tablet 25 mg PO HS Patient Comments: TAKE 1 TABLET BY MOUTH AT BEDTIME topiramate 50 mg tablet 50 mg PO HS Patient Comments: TAKE 1 TABLET BY MOUTH ONCE DAILY amlodipine 2.5 mg tablet 2.5 mg PO DAILY tramadol 50 mg tablet 50 mg PO QHS PRN (Reason: pain) ranolazine 500 mg tablet extended release 12 hr 500 mg PO BID Patient Comments: Take 1 tablet by mouth twice a day bisacodyl [Dulcolax (bisacodyl)] 5 mg Tablet,Delayed Release (Dr/Ec) 5 mg PO ONCE cholecalciferol (vitamin D3) [Vitamin D3] 25 mcg (1,000 unit) tablet 1,000 unit PO DAILY pantoprazole [Protonix] 40 mg tablet,delayed release (DR/EC) 40 mg PO DAILY Qty: 30 0RF Victoza 2-Thanh 0.6 mg/0.1 mL (18 mg/3 mL) pen injector 1.8 mg SUBCUT DAILY magnesium 200 mg Tablet 400 mg PO DAILY mupirocin 2 % Ointment 1 applic TOPICAL BID potassium chloride 10 mEq Capsule, Extended Release 10 meq PO DAILY Discharge Instructions Instructions: Leg Pain (ED) Additional Instructions: Please follow-up with your primary care physician Take Tylenol as prescribed Apply the Lidoderm patches 12 hours on, 12 hours off Use your walker with ambulation Return earlier should you have any worsening complaints All your tests today are reassuring, you have some degenerative changes in your right hip may follow-up with orthopedics, a list referral below Referrals: Tres Mai MD [ [facility] STAFF PHYSICIAN] - Discharge Data Discharge Date/Time-TO BE ENTERED AT DEPARTURE: 12/16/22 15:12 Medical Decision Making 72-year-old male, chronically ill-appearing, reproducible tenderness in the right sacroiliac region and right hip, neurovascularly intact, no tenderness to lumbar spine, no abdominal pain appreciated on exam, no abdominal bruit or pulsatile mass, distal pulses intact bilateral lower extremities and upper extremities CT abdomen and pelvis was ordered secondary to age and comorbidities, diagnostic blood work does not show evidence of acute abnormality, received Tylenol, Lidoderm, small amount of fentanyl, and Decadron for symptomatic control of pain Patient is feeling marked improvement in symptoms EKG is assessed patient and recommends rolling walker, patient feels comfortable discharge home Return precautions reviewed and patient expressed understanding Discharged home in care of his Recommendation for close for outpatient reassessment with primary care physician CT abdomen pelvis does not show evidence of acute pathology per radiology interpretation and my review, this is ordered to evaluate for possible fracture HPI General Date/Time Provider Initiated Documentation: 12/16/22 11:11. HPI Narrative: 72-year-old male presents with right hip pain. States that the pain started 2 days ago. Denies any known injuries. Exacerbated with movement. Denies any additional complaints at this time. Denies any fever or chills. Denies any known tick bites. Denies any urinary complaints. Had an evident negative urinalysis yesterday at his doctor's office per patient. Related Data Home Medications Medication Instructions Recorded Confirmed levothyroxine 50 mcg tablet 50 mcg PO DAILY@0730 01/24/13 12/16/22 quetiapine 300 mg tablet (Seroquel) 300 mg PO HS 01/24/13 12/16/22 rosuvastatin 20 mg tablet (Crestor) 20 mg PO HS 03/22/17 12/16/22 nitroglycerin 0.4 mg sublingual 0.4 mg sublingual as directed 04/08/17 12/16/22 tablet (Nitrostat) pantoprazole 40 mg tablet,delayed 40 mg PO DAILY #30 tabs 04/25/19 12/16/22 release (Protonix) metoprolol succinate 50 mg 50 mg PO HS 05/10/19 12/16/22 tablet,extended release 24 hr acetylcysteine 600 mg capsule (NAC) 600 mg PO BID 05/16/19 12/16/22 citalopram 20 mg tablet 10 mg PO DAILY 05/16/19 12/16/22 diclofenac sodium 1 % topical gel 1 applic topical DIRECTED 04/30/20 12/16/22 (Voltaren) liraglutide 0.6 mg/0.1 mL (18 mg/3 1.8 mg subcut DAILY 06/19/20 12/16/22 mL) subcutaneous pen injector (Victoza 2-Thanh) isosorbide mononitrate 60 mg 60 mg PO HS 09/18/20 12/16/22 tablet,extended release 24 hr lidocaine 5 % topical patch 1 patch topical Q24H #4 ea 10/14/20 12/16/22 (Lidoderm) methocarbamol 500 mg tablet 500 mg PO Q6H PRN muscle spasm #14 11/07/20 12/16/22 tabs docusate sodium 100 mg capsule 100 mg PO DAILY PRN 01/07/21 12/16/22 (Colace) topiramate 25 mg tablet 25 mg PO HS 01/09/21 12/16/22 topiramate 50 mg tablet 50 mg PO HS 01/09/21 12/16/22 carboxymethylcellulose sodium 0.5 1 - 2 drp ophthalmic (eye) QID PRN 03/27/21 12/16/22 % eye drops (Refresh Tears) phenazopyridine 200 mg tablet 200 mg PO TID PRN 03/27/21 12/16/22 magnesium 200 mg tablet 400 mg PO DAILY 06/07/21 12/16/22 amlodipine 2.5 mg tablet 2.5 mg PO DAILY 08/18/21 12/16/22 finasteride 5 mg tablet 5 mg PO DAILY #90 tabs 08/18/21 12/16/22 mupirocin 2 % topical ointment 1 applic topical BID 09/14/21 12/16/22 potassium chloride 10 mEq 10 meq PO DAILY 09/14/21 12/16/22 capsule,extended release allopurinol 300 mg tablet 300 mg PO DAILY 04/23/22 12/16/22 metformin 1,000 mg tablet 1,000 mg PO BID 04/23/22 12/16/22 triamcinolone acetonide 0.1 % 1 applic topical BID 04/23/22 12/16/22 topical cream pregabalin 100 mg capsule 100 mg PO TID 06/03/22 12/16/22 ranolazine 500 mg tablet,extended 500 mg PO BID 06/10/22 12/16/22 release,12 hr cod liver oil 2 cap PO DAILY 06/19/22 12/16/22 lisinopril 20 mg tablet 30 mg PO DAILY 06/19/22 12/16/22 tramadol 50 mg tablet 50 mg PO QHS PRN pain 06/19/22 12/16/22 riboflavin (vitamin B2) 100 mg 400 mg PO .QD 06/25/22 12/16/22 tablet (Vitamin B-2) cholecalciferol (vitamin D3) 25 1,000 unit PO DAILY 11/25/22 12/16/22 mcg (1,000 unit) tablet (Vitamin D3) insulin detemir U-100 100 unit/mL 75 unit subcut BID 11/25/22 12/16/22 (3 mL) subcutaneous pen (Levemir FlexTouch U-100 Insulin) polyethylene glycol 3350 17 17 g PO DAILY 11/25/22 12/16/22 gram/dose oral powder (Miralax) bisacodyl 5 mg tablet,delayed 5 mg PO ONCE 12/16/22 12/16/22 release (Dulcolax (bisacodyl)) Previous Rx's Medication Instructions Recorded pantoprazole 40 mg tablet,delayed 40 mg PO DAILY #30 tabs 04/25/19 release (Protonix) lidocaine 5 % topical patch 1 patch topical Q24H #4 ea 10/14/20 (Lidoderm) methocarbamol 500 mg tablet 500 mg PO Q6H PRN muscle spasm #14 11/07/20 tabs finasteride 5 mg tablet 5 mg PO DAILY #90 tabs 08/18/21 Allergies Allergy/AdvReac Type Severity Reaction Status Date / Time amoxicillin Allergy Severe breathing Verified 12/16/22 10:58 difficuty and vomiting Penicillins Allergy Intermediate Skin Rash Verified 12/16/22 10:58 sulfamethoxazole Allergy Intermediate Skin Rash Verified 12/16/22 10:58 [From Bactrim] trimethoprim [From Bactrim] Allergy Intermediate Skin Rash Verified 12/16/22 10:58 oxycodone HCl [From Percocet] AdvReac Severe Contraindic Verified 12/16/22 10:58 ated oxycodone terephthalate AdvReac Severe Contraindic Verified 12/16/22 10:58 [From Percodan] ated General Stated Complaint: Orthopedic MADELIN: 4 PFSH All Active Problems (Updated 12/16/22 @ 14:41 by ROSAURA Umanzor) Arthralgia of both feet (Acute) Acute hip pain (Acute) Shoulder pain, left (Acute) Hyperplastic colon polyp (Acute ~09/24/22) Tubular adenoma of colon (Acute ~09/24/22) Hammertoe (Acute) Hypothyroidism (Chronic) Hyperlipidemia (Acute) Hypertension (Chronic) Chest pain (Acute) Nail dystrophy (Acute) Lumbar radiculopathy (Acute) Compression fracture of lumbar vertebra (Acute) Chest pain (Acute) Unstable angina (Acute) Arthritis of right hip (Acute) Chest wall muscle strain (Acute) Chronic subdural hematoma (Chronic) Chest pain (Acute) Pituitary abnormality (Acute) Neck pain (Acute) Hand weakness (Acute) Cubital tunnel syndrome on right (Acute) Lower urinary tract symptoms (Chronic) Lumbar radiculitis (Acute) Lumbosacral spondylosis without myelopathy (Acute) Chronic rhinitis (Chronic) Atypical chest pain (Acute) Musculoskeletal; Negative NPI 04/29/2018 Urethral stricture (Acute 08/20/15) Sensory hearing loss, bilateral (Chronic 04/09/14) Sensorineural hearing loss, asymmetrical (Chronic 05/12/13) Mild cognitive impairment (Chronic 01/31/18) Hypertrophy of nasal turbinates (Chronic 08/05/15) 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) Deviated nasal septum (Chronic 08/05/15) Thoracic spondylosis without myelopathy (Chronic) Coronary artery disease (Chronic) Hyperlipidemia (Chronic) Diabetes mellitus type 2 in obese (Chronic) Medical History (Updated 12/16/22 @ 14:41 by ROSAURA Umanzor) Anemia, iron deficiency At risk for falling Ataxia Cecal volvulus Chronic low back pain Colon polyps Constipation, chronic Contusion of right hip Decreased hearing of both ears Depression Diastasis recti DM type 2 (diabetes mellitus, type 2) Fatty liver Foot callus Foot pain GERD (gastroesophageal reflux disease) Gout H/O alcohol abuse Head trauma Headaches due to 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 History of rib fracture Hx of deep venous thrombosis Hx of traumatic brain injury Knee pain, right Left arm pain Left cervical radiculopathy Left rib fracture Low back pain Migraine headache Mild dementia MRSA infection Obstructive sleep apnea Pain in joint of right foot Pain, joint, shoulder region, left Peripheral neuropathy Postnasal drip (05/13/15) Rathke's pouch cyst Recurrent UTI Rhinorrhea Rib pain on left side Right sided weakness Shoulder pain Sleep apnea Tinea pedis Traumatic brain injury Urethral stricture UTI (urinary tract infection) UTI (urinary tract infection) Viral URI with cough Vitamin B12 deficiency Vitamin D deficiency Volvulus of cecum Surgical History Appendectomy (06/01/16) Colonoscopy - MAC 2009-5year f/u 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 electroconvulsive therapy Extraction of cataract facial lesion removal History of colonoscopy with polypectomy (~09/24/22) Repair of inguinal hernia (08/05/17) right inguinal hernia repair by Dr Arroyo on 08/05/17 Repair of umbilical hernia Social History Smoking/Tobacco Use Status: Former Tobacco Use tobacco type: cigarettes Quit Date: 06/21/80 Pack-years: 5 Smoking risk assessment performed?: Yes Alcohol Intake: former Drug use: Never Substance use type: does not use Household members: spouse Housing: house Pets and animals: Yes Pets and animals: dog(s) Do you feel safe at home: Yes Do you feel safe in your relationship?: Yes Exam Narrative Exam Narrative: Patient holding right hip, abdomen nontender, no flank tenderness, no abdominal bruit or pulsatile mass, distal pulses intact, reproducible tenderness over right hip, mildly diminished range of motion, specifically with abduction and internal rotation Course Vital Signs Vital signs: Vital Signs Temperature 36.7 C 12/16/22 10:55 Pulse 98 H 12/16/22 10:55 Respiratory Rate 18 12/16/22 10:55 Blood Pressure 124/75 12/16/22 10:55 Pulse Oximetry 97 12/16/22 10:55 Temperature 36.7 C 12/16/22 10:55 Temperature Source Oral 12/16/22 10:55 Pulse 98 H 12/16/22 10:55 Respiratory Rate 18 12/16/22 10:55 Respiratory Effort Normal 12/16/22 11:34 Blood Pressure 124/75 12/16/22 10:55 Blood Pressure Position Sitting 12/16/22 10:55 Pulse Oximetry 97 12/16/22 10:55 Oxygen Delivery Method Room Air 12/16/22 10:55 Oxygen Flow Rate 0 12/16/22 10:55 Pain Level 10 12/16/22 11:36 Lab/Test Results Lab/Test Results: Laboratory Tests Range/Units 12/16/22 12/16/22 12/16/22 12:15 12:15 12:45 WBC Cancelled 5.54 RBC Cancelled 4.11 L Hgb Cancelled 11.8 L Hct Cancelled 34.8 L MCV Cancelled 85 MCH Cancelled 28.7 MCHC Cancelled 33.9 RDW Cancelled 14.6 H Plt Count Cancelled 147 MPV Cancelled 9.0 Immature Gran % Cancelled 0.4 Neutrophils % Cancelled 67.7 Band Neutrophils % Cancelled Lymphocytes % Cancelled 18.1 Atypical Lymphs % Cancelled Monocytes % Cancelled 9.4 Eosinophils % Cancelled 4.2 Basophils % Cancelled 0.2 Metamyelocytes % Cancelled Myelocytes % Cancelled Promyelocytes % Cancelled Other Cells % Cancelled Nucleated RBC % Cancelled 0.0 Absolute Neutrophils Cancelled 3.76 Absolute Lymphocytes Cancelled 1.00 L Absolute Monocytes Cancelled 0.52 Absolute Eosinophils Cancelled 0.23 Absolute Basophils Cancelled 0.01 RBC Morphology Cancelled Polychromasia Cancelled Hypochromasia Cancelled Poikilocytosis Cancelled Basophilic Stippling Cancelled Anisocytosis Cancelled Microcytosis Cancelled Macrocytosis Cancelled Spherocytes Cancelled Tear Drop Cells Cancelled Ovalocytes Cancelled Stomatocytes Cancelled [place] Bodies Cancelled [place] Cells/Echinocytes Cancelled Acanthocytes (Spur) Cancelled Schistocytes Cancelled Sodium (136-145) mmol/L 137 Potassium (3.5-5.1) mmol/L 4.1 Chloride (98-107) mmol/L 104 Carbon Dioxide (21.0-32.0) mmol/L 20.7 L Anion Gap (3-11) mmol/L 12.3 H BUN (7-18) mg/dL 13 Creatinine (0.70-1.30) mg/dL 1.3 Est GFR (CKD-EPI 2020) (mL/min/1.73m2) 58.01 Glucose (74-106) mg/dL 200 H Calcium (8.5-10.1) mg/dL 8.7 Total Bilirubin (0.2-1.0) mg/dL 0.4 AST (15-37) U/L 24 ALT (16-63) U/L 19 Alkaline Phosphatase (46-116) U/L 75 C-Reactive Protein (0.0-0.3) mg/dL 0.17 Total Protein (6.4-8.2) g/dL 6.9 Albumin (3.4-5.0) g/dL 3.8
[2022-12-16 14:08] VITALS: BP 139/87; PULSE 86; RESP 16; O2SAT 97
--- NOTE | 2022-12-16 15:00 | IN_ITS ---
PT Notes Physical Therapy Emergency Department initial Evaluation Date: 12/16/2022 Referring Doctor: ROSAURA Umanzor PT Orders: PT CONSULT: Eval/Treat Precautions: Fall. Standard. Activity as tolerated. Patient Profile/Admitting Diagnosis: Fredo is a 72-year-old male who presented to the ED today with right of the right hip and right sacroiliac joint pain that started 2 days ago. Referral was sent for safety recommendations prior to discharge. PMHX: All Active Problems?(Updated 12/09/22 @ 12:51 by ROSAURA Umanzor) Arthralgia of both feet (Acute) Shoulder pain, left (Acute) Hyperplastic colon polyp (Acute ~09/24/22) Tubular adenoma of colon (Acute ~09/24/22) Hammertoe (Acute) Hypothyroidism (Chronic) Hyperlipidemia (Acute) Hypertension (Chronic) Chest pain (Acute) Nail dystrophy (Acute) Lumbar radiculopathy (Acute) Compression fracture of lumbar vertebra (Acute) Chest pain (Acute) Unstable angina (Acute) Arthritis of right hip (Acute) Chest wall muscle strain (Acute) Chronic subdural hematoma (Chronic) Chest pain (Acute) Pituitary abnormality (Acute) Neck pain (Acute) Hand weakness (Acute) Cubital tunnel syndrome on right (Acute) Lower urinary tract symptoms (Chronic) Lumbar radiculitis (Acute) Lumbosacral spondylosis without myelopathy (Acute) Chronic rhinitis (Chronic) Atypical chest pain (Acute) Musculoskeletal; Negative NPI 04/29/2018 Urethral stricture (Acute 08/20/15) Sensory hearing loss, bilateral (Chronic 04/09/14) Sensorineural hearing loss, asymmetrical (Chronic 05/12/13) Mild cognitive impairment (Chronic 01/31/18) Hypertrophy of nasal turbinates (Chronic 08/05/15) 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) Deviated nasal septum (Chronic 08/05/15) Thoracic spondylosis without myelopathy (Chronic) Coronary artery disease (Chronic) Hyperlipidemia (Chronic) Diabetes mellitus type 2 in obese (Chronic) Medical History?(Updated 12/09/22 @ 12:51 by ROSAURA Umanzor) Anemia, iron deficiency At risk for falling Ataxia Cecal volvulus Chronic low back pain Colon polyps Constipation, chronic Contusion of right hip Decreased hearing of both ears Depression Diastasis recti DM type 2 (diabetes mellitus, type 2) Fatty liver Foot callus Foot pain GERD (gastroesophageal reflux disease) Gout H/O alcohol abuse Head trauma Headaches due to 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 History of rib fracture Hx of deep venous thrombosis Hx of traumatic brain injury Knee pain, right Left arm pain Left cervical radiculopathy Left rib fracture Low back pain Migraine headache Mild dementia MRSA infection Obstructive sleep apnea Pain in joint of right foot Pain, joint, shoulder region, left Peripheral neuropathy Postnasal drip (05/13/15) Rathke's pouch cyst Recurrent UTI Rhinorrhea Rib pain on left side Right sided weakness Shoulder pain Sleep apnea Tinea pedis Traumatic brain injury Urethral stricture UTI (urinary tract infection) UTI (urinary tract infection) Viral URI with cough Vitamin B12 deficiency Vitamin D deficiency Volvulus cecum Surgical History? Appendectomy (06/01/16) Colonoscopy - MAC 2009-5year f/u 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 Electroconvulsive therapy Extraction of cataract Facial lesion removal History of colonoscopy with polypectomy (~09/24/22) Repair of inguinal hernia (08/05/17) right inguinal hernia repair by Dr Arroyo on 08/05/17 Repair of umbilical hernia Social History/Home Situation: Lives with and son in a private one-level home with 2 steps to enter with rails. Independent with mobility using 4-wheeled walker. Equipment Owned/DME: [employer] Subjective: Feels much better compared to when he came in. Reports 4/10 pain and the right hip that did not increase with weight bearing. Hoping to go home soon and is safe to do so. Agreeable to using front wheeled walker at this time for more stability. Objective: General Observation: Resting in bed. Mental Status: Alert and oriented as to person, place, time, and purpose. Able to pay attention, focus, and respond appropriately. Pain: 4/10 pain in the right hip Vital Signs: Closely monitored by nursing staff ROM: Right Lower Extremity: Hip flexion WFL. Hip abduction WFL. Knee flexion WFL. Ankle dorsiflexion WFL. Ankle plantarflexion WFL. Left Lower Extremity: Hip flexion WFL. Hip abduction WFL. Knee flexion WFL. Ankle dorsiflexion WFL. Ankle plantarflexion WFL. Strength: Right Lower Extremity: Hip flexors 4/5. Hip abductors 4/5. Knee flexors 5/5. Knee extensors 4/5. Ankle dorsiflexors 4/5. Ankle plantarflexors 4/5. Left Lower Extremity: Hip flexors 4/5. Hip abductors 4/5. Knee flexors 5/5. Knee extensors 4/5. Ankle dorsiflexors 4/5. Ankle plantarflexors 4/5. Bed Mobility/Transfers: Supine to sit independent Sit to supine independent Sit to stand independent Stand to sit independent Gait: Instructed patient with level surface ambulation of 100 feet requiring supervision. Gisselle decreased. Step height decreased. Step length decreased. Reported no increase of pain in the right hip. Verbalized that he is at his baseline mobility level. Balance: Static Sitting: Normal Dynamic Sitting: Normal Static Standing: Fair Dynamic Standing: Fair Special Tests: Mobility Limitations Standardized Measure [facility] AM-PAC 6 clicks Basic Mobility Inpatient Short Form: Raw Score: 23 CMS Score: 11% deficit Informed Consent/Education: Patient was instructed in purpose of PT consult and plan of care. Agreeable to proceed with established PT POC to achieve personal goals. Assessment: Fredo requires the use of a front wheeled walker to maximize independence and reduce fall risk. We will have assistance of his and his son at home as he continues to recover. Patient is assessed as a 31502 low complexity based on the following: History: 72-year-old male with past medical history as indicated above Examination: Demonstrable impairment in strength, balance, and mobility level with underlying impairments and functional limitations as exhibited above as well as deficit score of 11% utilizing the [facility] Mobility Inpatient Short Form Presentation: Evolving Decision Makin low complexity Goals: N/A. PT evaluation only. Plan of Care/Treatment Plan: N/A. PT evaluation only. DISCHARGE RECOMMENDATIONS: [X] Home with no services. Home when medically cleared by ED provider. Patient will benefit from the use of a front-wheeled walker to maximize independence and reduce fall risk at home. [] Home with services [specify] [] Home with outpatient PT [] [] SNF for continued rehabilitation [] [] Nursing Home Care [] [] SNF versus LTC based on ability to participate and progress [] TREATMENT CODE/TIME: 46415 x 14 minutes beginning at 14:35 PM. Thank you for the opportunity to participate in the care of this patient. Renae Armenta PT, DPT, CLT [facility] [place], [place]
[2022-12-16 15:06] VITALS: BP 139/87; PULSE 86; RESP 16; O2SAT 97
[2022-12-18 10:12] LABS: Lyme Ab w Rflx to Lyme Confirm Negative (Negative)
[2022-12-20 17:58] LABS: Anaplasma phagocytophilum Negative (Negative); B. miyamotoi PCR Negative (Negative); Babesia divergens/MO-1 Negative (Negative); Babesia duncani Negative (Negative); Babesia microti Negative (Negative); Ehrlichia chaffeensis Negative (Negative); Ehrlichia ewingii/canis Negative (Negative); Ehrlichia muris eauclairensis Negative (Negative)
== END 2022-12-16 15:12 | disposition home or self-care (01) ==
PROVIDERS: Emergency Provider Physician Assistant; PCP Family Medicine
DX: M25.551 Pain in right hip (principal)
CPT/HCPCS: 80053; 87798; 96365; 96375; 97161; 99284; 74176; 85025; 86140; 86618; J0131; J1100; J2405; J3010

== ENCOUNTER 2022-12-25 00:49 | Outpatient (CLI) | payer MEDICARE, OTHER, SELFPAY ==
--- NOTE | 2022-12-25 07:45 | DI.MRI_ITS ---
Exam(s) MR UPPER JOINT LT WO EXAM: MR UPPER JOINT LT WO CLINICAL HISTORY: left shoulder pain - likely rot cuff pathology, M25.512. TECHNIQUE: Multiplanar multisequence MRI was performed. COMPARISON: Plain films of the humerus 06 July 2022 FINDINGS: Exam is limited by patient motion. BONES: There is no fracture or contusion pattern. A few degenerative subchondral cysts are seen in the humeral head. JOINTS:The acromioclavicular joint shows mild degenerative changes. Small amount of fluid is seen be neath the AC joint. The glenohumeral joint is normal. TENDONS: Supraspinatus: Small focus of high signal distally could indicate partial tear. Infraspinatus: Unremarkable. Subscapularis: Unremarkable. Teres Minor: Unremarkable. Biceps and [place]: Unremarkable. MUSCLES: Unremarkable. GLENOID LABRUM: Unremarkable on this noncontrast examination. SOFT TISSUES: Unremarkable. OTHER: Subacromial and subdeltoid bursae . IMPRESSION: Partial tear distal supraspinatus tendon. DATA REPOSITORY:
== END 2022-12-25 01:09 ==
LOC: DI 00:49
PROVIDERS: PCP Family Medicine; Visit Provider Preventive Medicine Occupational Medicine
DX: M75.112 Incomplete rotator cuff tear or rupture of left shoulder, not specified as traumatic (principal)
CPT/HCPCS: 73221

== ENCOUNTER 2023-01-07 17:36 | Outpatient (REF) | payer MEDICARE, OTHER, SELFPAY ==
[2023-01-07 17:00] LABS: BUN 23 mg/dL (7-18); CREATININE 1.6 mg/dL (0.70-1.30); Calcium 8.2 mg/dL (8.5-10.1); Chloride 106 mmol/L (98-107); Estimated GFR 45.21 (mL/min/1.73m2); Glucose 275 mg/dL (74-106); Potassium 4.1 mmol/L (3.5-5.1); Sodium 138 mmol/L (136-145); Uric Acid 3.8 mg/dL (3.5-7.2)
[2023-01-07 17:17] LABS: Hemoglobin A1C 7.6 % (<5.7)
== END 2023-01-07 17:37 | disposition home or self-care (01) ==
LOC: NCHCN 17:36
PROVIDERS: PCP Family Medicine; Visit Provider Family Medicine
DX: E11.9 Type 2 diabetes mellitus without complications (principal); I10 Essential (primary) hypertension; M10.9 Gout, unspecified
CPT/HCPCS: 80048; 83036; 84550

== ENCOUNTER → 2023-01-26 09:58 | Outpatient (BNVA) | payer MEDICARE, OTHER, SELFPAY | PROVIDERS: PCP Family Medicine; Visit Provider Urology | DX: R39.89 Other symptoms and signs involving the genitourinary system (principal); Z98.890 Other specified postprocedural states; I10 Essential (primary) hypertension; E11.9 Type 2 diabetes mellitus without complications | CPT/HCPCS: 51798; 81003; 99213 ==

== ENCOUNTER 2023-01-26 10:21 | Outpatient (REF) | payer MEDICARE, OTHER, SELFPAY | END 2023-01-26 10:22 | disposition home or self-care (01) | LOC: LBN 10:21 | PROVIDERS: PCP Family Medicine; Visit Provider Urology | DX: R30.0 Dysuria (principal); R39.89 Other symptoms and signs involving the genitourinary system; R82.998 Other abnormal findings in urine | CPT/HCPCS: 87086 ==

== ENCOUNTER 2023-02-01 09:05 | Day surgery (SDC) | payer MEDICARE, OTHER, SELFPAY ==
[2023-02-01 09:20] VITALS: BP 137/78; PULSE 94; RESP 19; TEMP 36.7; O2SAT 97
[2023-02-01] MEDS: Lactated Ringers 1,000 ML 80 ML IV (09:45)
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
[2023-02-01 11:08] VITALS: BMI 28.5
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
[2023-02-01] MEDS: GENTAMICIN 120 MG in Normal Saline 100 ML 206 MG IVPB (11:57)
[2023-02-01] MEDS: Lidocaine 2% Jelly 11 ML SYR (12:10)
--- NOTE | 2023-02-01 12:24 | W.PM.DSUDISC ---
Date of service: 02/01/23 Time of Service: 12:24 Discharge Plan Disposition Condition: Stable Discharge Details Reason For Visit: urethral stricture Attending Provider: Ilia Obregon Primary Care Provider: Alisa Ramirez Home Meds and New Rx's Prescriptions: No Action finasteride 5 mg tablet 5 mg PO DAILY Qty: 90 4RF carboxymethylcellulose sodium [Refresh Tears] 0.5 % Drops 1 - 2 drp OPHTHALMIC (EYE) QID PRN acetylcysteine [NAC] 600 mg capsule 600 mg PO BID metoprolol succinate 50 mg tablet extended release 24 hr 50 mg PO HS citalopram 20 mg tablet 10 mg PO DAILY diclofenac sodium [Voltaren] 1 % gel 1 applic topical DIRECTED Rx Instructions: apply to single elbow, wrist or hand; for hand includes palm/fingers/back of hand polyethylene glycol 3350 [Miralax] 17 gram/dose powder 17 g PO DAILY nitroglycerin [Nitrostat] 0.4 MG tablet, sublingual 0.4 mg Sublingual as directed metformin 1,000 mg tablet 1,000 mg PO BID allopurinol 300 mg tablet 300 mg PO DAILY triamcinolone acetonide 0.1 % cream 1 applic topical BID pregabalin 100 mg capsule 100 mg PO TID cod liver oil Capsule 2 cap PO DAILY Rx Instructions: 1,000mg / cap riboflavin (vitamin B2) [Vitamin B-2] 100 mg tablet 400 mg PO .QD Levemir FlexTouch U100 Insulin 100 unit/mL (3 mL) insulin pen 75 unit subcut BID levothyroxine 50 MCG tablet 50 mcg PO DAILY@0730 quetiapine [Seroquel] 300 MG tablet 300 mg PO HS rosuvastatin [Crestor] 20 MG tablet 20 mg PO HS lisinopril 20 mg tablet 30 mg PO DAILY isosorbide mononitrate 60 mg tablet extended release 24 hr 60 mg PO HS Rx Instructions: TAKE ALONG WITH 30MG TAB FOR TOTAL DAILY DOSE OF 90MG lidocaine [Lidoderm] 1 PATCH patch 1 patch Topical Q24H Qty: 4 0RF methocarbamol 500 mg tablet 500 mg PO Q6H PRN (Reason: muscle spasm) Qty: 14 0RF docusate sodium [Colace] 100 mg Capsule 100 mg PO DAILY PRN topiramate 25 mg tablet 25 mg PO HS Patient Comments: TAKE 1 TABLET BY MOUTH AT BEDTIME topiramate 50 mg tablet 50 mg PO HS Patient Comments: TAKE 1 TABLET BY MOUTH ONCE DAILY amlodipine 2.5 mg tablet 2.5 mg PO DAILY tramadol 50 mg tablet 50 mg PO QHS PRN (Reason: pain) ranolazine 500 mg tablet extended release 12 hr 500 mg PO BID Patient Comments: Take 1 tablet by mouth twice a day bisacodyl [Dulcolax (bisacodyl)] 5 mg Tablet,Delayed Release (Dr/Ec) 5 mg PO ONCE cholecalciferol (vitamin D3) [Vitamin D3] 25 mcg (1,000 unit) tablet 1,000 unit PO DAILY pantoprazole [Protonix] 40 mg tablet,delayed release (DR/EC) 40 mg PO DAILY Qty: 30 0RF Victoza 2-Thanh 0.6 mg/0.1 mL (18 mg/3 mL) pen injector 1.8 mg SUBCUT HS magnesium 200 mg Tablet 400 mg PO DAILY mupirocin 2 % Ointment 1 applic TOPICAL BID potassium chloride 10 mEq Capsule, Extended Release 10 meq PO DAILY Discharge Instructions Additional Instructions: mcdonald to drainage bag followup 1 week for catheter removal Activity:: Activity as Tolerated Shower/Bathe:: 24 hours Diet:: As Tolerated DS: Diagnosis Discharge Diagnosis (1) Urethral stricture: Status: Acute
[2023-02-01 12:30] VITALS: BP 136/80; PULSE 89; RESP 16; TEMP 36.5; O2SAT 97
--- NOTE | 2023-02-01 12:31 | W.PM.OP ---
Date of service: 02/01/23 Time of Service: 12:31 Operative Note Operative Note DATE OF PROCEDURE: 02/01/23 PRE-OP DIAGNOSIS: Urethral stricture POST-OP DIAGNOSIS: same PROCEDURE: Cystoscopy with urethral dilation SURGEON: Ilia Obregon ANESTHESIA TYPE: Local By Surgeon and General:No Airway Refer to Anesthesia Record ESTIMATED BLOOD LOSS: 5 PATHOLOGY: none sent COMPLICATIONS: None Patient was transported to: same day Patient's condition: stable Implants: 16 Trinidadian manzanita tip catheter with 10 cc sterile water in balloon Indications: This is a 72-year-old gentleman who has a history of hypospadias. He has had multiple procedures previously, but his urethral meatus is still down toward the coronal sulcus. He has had recurrent urinary tract infections and urethral strictures. He currently is having urinary frequency and incontinence. His urine culture showed no evidence of infection, so we suspect his urethral strictures are recurring. He presents for urethral dilation and placement of a Coello catheter Findings: Meatal stenosis Procedure Description: The patient was brought to the operating room on 02/01/2023. He was given preoperative IV antibiotics. After successful induction of general anesthesia, he was placed in the dorsal lithotomy position. His genitalia was prepped and draped. The urethral meatus was identified down toward the coronal sulcus. I instilled 2% Xylocaine jelly into the meatus and I was then able to pass a angled tipped zip wire through the urethra into the bladder. We used a series of dilators that could be passed over the wire in order to dilate the urethral meatus from a size 14 Trinidadian up to 24 Trinidadian. I was then able to pass a 22 Trinidadian rigid cystoscope down through the urethra into the bladder. The urethra and bladder were inspected with the 30 degree lens. Apart from the narrowing at the meatus, no additional strictures were seen in the membranous or bulbous urethra. The prostatic urethra showed some lateral lobe enlargement but no significant median lobe. The bladder neck was entered and the bladder mucosa was inspected. No papillary or nodular lesions were seen on the bladder mucosa. No stones were seen in the lumen of the bladder. The cystoscope was then withdrawn leaving the guidewire in place. A 16 Trin[place]adian manzanita tip catheter was passed over the guidewire. Once the catheter was advanced into the bladder, the wire was removed and the catheter balloon was inflated with 10 cc of sterile water. The catheter was hooked to gravity drainage. The patient tolerated the procedure well with no complications.
[2023-02-01] MEDS: Phenazopyridine 200 MG TAB PO (13:05)
[2023-02-01 13:16] VITALS: BP 155/83; PULSE 84; RESP 16; TEMP 36.3; O2SAT 98
--- NOTE | 2023-02-01 13:32 | W.ANESPOSTOP ---
Postoperative Evaluation Date, Time and Location Date Performed: 02/01/23 Time Performed: 13:32 Patient Location: Day Surgery Unit Vital Signs Most Recent Imported Vital Signs: Most Recent Vital Signs Temp Pulse Resp BP Pulse Ox 36.3 C L 84 16 155/83 H 98 02/01/23 13:16 02/01/23 13:16 02/01/23 13:16 02/01/23 13:16 02/01/23 13:16 Pain Score Most Recent Pain Score: Most Recent Pain Score Pain Level 3 02/01/23 13:16 Assessment Mental Status: Awake (Alert & Oriented to Patient Baseline) Airway and Respiratory Function: Patent airway with normal (patient baseline) respiratory exam Cardiovascular Function: Hemodynamically Stable Hydration Status: Adequately Hydrated Nausea & Vomiting: No Nausea or Vomiting Pain: Pain is tolerable per patient Peripheral Nerve Block: Patient did not receive a nerve block
== END 2023-02-01 14:00 | disposition home or self-care (01) ==
PROVIDERS: PCP Family Medicine; Visit Provider Urology
PROC: 0T7D8ZZ Dilation of Urethra, Via Natural or Artificial Opening Endoscopic (ICD-10-PCS; CPT 52281; principal; 2023-02-01 11:45)
DX: N35.811 Other urethral stricture, male, meatal (principal); E11.9 Type 2 diabetes mellitus without complications; G47.33 Obstructive sleep apnea (adult) (pediatric); D50.9 Iron deficiency anemia, unspecified; I25.10 Atherosclerotic heart disease of native coronary artery without angina pectoris
CPT/HCPCS: 52281; J1580; J1885; J2405; J2704

== ENCOUNTER → 2023-02-10 08:21 | Outpatient (BNVA) | payer MEDICARE, OTHER, SELFPAY | PROVIDERS: PCP Family Medicine; Referring Provider Family Medicine; Visit Provider Nurse Practitioner Gerontology | DX: Z46.6 Encounter for fitting and adjustment of urinary device (principal) | CPT/HCPCS: 99211 ==

== ENCOUNTER → 2023-02-11 09:53 | Outpatient (BNVA) | payer MEDICARE, OTHER, SELFPAY | PROVIDERS: PCP Family Medicine; Referring Provider Family Medicine; Visit Provider Nurse Practitioner Gerontology | DX: R39.89 Other symptoms and signs involving the genitourinary system (principal); N35.911 Unspecified urethral stricture, male, meatal; N32.81 Overactive bladder; K59.00 Constipation, unspecified; R68.2 Dry mouth, unspecified; I10 Essential (primary) hypertension; E11.9 Type 2 diabetes mellitus without complications | CPT/HCPCS: 51798; 81003; 99214 ==

== ENCOUNTER 2023-02-11 11:43 | Outpatient (REF) | payer MEDICARE, OTHER, SELFPAY | END 2023-02-11 11:44 | disposition home or self-care (01) | LOC: LBN 11:43 | PROVIDERS: PCP Family Medicine; Visit Provider Nurse Practitioner Gerontology | DX: N39.0 Urinary tract infection, site not specified (principal) | CPT/HCPCS: 87086 ==

== ENCOUNTER → 2023-02-17 10:21 | Outpatient (CLI) | payer MEDICARE, OTHER, SELFPAY ==
--- NOTE | 2023-02-17 10:00 | DI.RAD_ITS ---
Exam(s) XR FOOT RT COMPLETE EXAM: XR FOOT RT COMPLETE CLINICAL HISTORY: foot pain, M79.673. TECHNIQUE: 2D digital imaging was performed. Three views. COMPARISON: CR XR FOOT LT COMPLETE from 02/17/2023 FINDINGS: BONES: No acute fracture is present. No bony destructive lesion is seen. JOINTS: No dislocation present. Plantar arch is maintained. No significant degenerative changes. SOFT TISSUE: Normal. IMPRESSION: Unremarkable radiographs of the right foot. DATA REPOSITORY: RADIATION DOSE DELIVERED:
--- NOTE | 2023-02-17 10:00 | DI.RAD_ITS ---
Exam(s) XR FOOT LT COMPLETE EXAM: XR FOOT LT COMPLETE CLINICAL HISTORY: foot pain, M79.673. TECHNIQUE: 2D digital imaging was performed. Three views. COMPARISON: CR XR FOOT LT COMPLETE from 12/09/2022 FINDINGS: BONES: No acute fracture is present. No bony destructive lesion is seen. Fusion hardware again noted through interphalangeal joint of the great toe. Small plantar calcaneal spur. JOINTS: No dislocation present. No significant degenerative changes. Plantar arch is maintained. SOFT TISSUE: Normal. IMPRESSION: No acute abnormality. Post fusion at the 1st interphalangeal joint. DATA REPOSITORY: RADIATION DOSE DELIVERED:
== END ==
PROVIDERS: PCP Family Medicine; Visit Provider Podiatrist
DX: M79.671 Pain in right foot (principal); M79.672 Pain in left foot
CPT/HCPCS: 73630

== ENCOUNTER → 2023-03-11 07:56 | Outpatient (BNVA) | payer MEDICARE, OTHER, SELFPAY | PROVIDERS: PCP Family Medicine; Referring Provider Family Medicine; Visit Provider Nurse Practitioner Gerontology | DX: N32.81 Overactive bladder (principal); Z87.440 Personal history of urinary (tract) infections; I10 Essential (primary) hypertension | CPT/HCPCS: 51798; 99213 ==

== ENCOUNTER → 2023-03-15 13:12 | Outpatient (BNVA) | payer MEDICARE, OTHER, SELFPAY | PROVIDERS: PCP Family Medicine; Referring Provider Family Medicine; Visit Provider Student in an Organized Health Care Education/Training Program | DX: M70.61 Trochanteric bursitis, right hip (principal) | CPT/HCPCS: 20610; 99213; J1040 ==

== ENCOUNTER → 2023-04-16 10:38 | Outpatient (BNVA) | payer MEDICARE, OTHER, SELFPAY | PROVIDERS: PCP Family Medicine; Referring Provider Family Medicine; Visit Provider Internal Medicine Cardiovascular Disease | DX: I25.10 Atherosclerotic heart disease of native coronary artery without angina pectoris (principal) | CPT/HCPCS: 99213 ==

== ENCOUNTER → 2023-04-27 11:06 | Outpatient (BNVA) | payer MEDICARE, OTHER, SELFPAY | PROVIDERS: PCP Family Medicine; Referring Provider Family Medicine; Visit Provider Podiatrist | DX: B35.1 Tinea unguium (principal); L60.3 Nail dystrophy; R26.89 Other abnormalities of gait and mobility; E11.9 Type 2 diabetes mellitus without complications; R29.6 Repeated falls; E66.9 Obesity, unspecified; I25.119 Atherosclerotic heart disease of native coronary artery with unspecified angina pectoris; M20.41 Other hammer toe(s) (acquired), right foot | CPT/HCPCS: 11721 ==

== ENCOUNTER → 2023-05-03 11:00 | Outpatient (BNVA) | payer MEDICARE, OTHER, SELFPAY | PROVIDERS: PCP Family Medicine; Referring Provider Family Medicine; Visit Provider Student in an Organized Health Care Education/Training Program | DX: M70.61 Trochanteric bursitis, right hip (principal); M16.11 Unilateral primary osteoarthritis, right hip | CPT/HCPCS: 99213 ==

== ENCOUNTER 2023-05-04 15:27 | Outpatient (REF) | payer MEDICARE, OTHER, SELFPAY ==
[2023-05-04 16:32] LABS: HCT 40.1 % (40.0-50.0); HGB 13.2 g/dL (13.5-17.5); MCH 28.2 pg (27.0-33.0); MCHC 32.9 % (32.0-36.0); MCV 86 fL (80-95); MPV 9.9 fL (8.0-11.0); Platelet Count 165 10^3/uL (130-400); RBC 4.68 10^6/uL (4.36-5.78); RDW 15.2 % (11.8-14.1); RDW-SD 47.1 fL; WBC 6.02 10^3/uL (4.4-10.8)
[2023-05-04 17:37] LABS: Anion Gap 12.7 mmol/L (3-11); BUN 13 mg/dL (7-18); CO2 21.3 mmol/L (21.0-32.0); CREATININE 1.4 mg/dL (0.70-1.30); Calcium 9.2 mg/dL (8.5-10.1); Chloride 106 mmol/L (98-107); Estimated GFR 53.07 (mL/min/1.73m2); Ferritin 34 ng/mL (26-388); Glucose 136 mg/dL (74-106); Sodium 140 mmol/L (136-145); TSH 2.33 uIU/mL (0.36-3.74)
[2023-05-04 17:55] LABS: PHOSPHORUS 3.7 mg/dL (2.6-4.7)
== END 2023-05-04 15:28 | disposition home or self-care (01) ==
LOC: NCHCN 15:27
PROVIDERS: PCP Family Medicine; Visit Provider Family Medicine
DX: E11.9 Type 2 diabetes mellitus without complications (principal); N18.9 Chronic kidney disease, unspecified; D50.9 Iron deficiency anemia, unspecified; E03.9 Hypothyroidism, unspecified; E55.9 Vitamin D deficiency, unspecified
CPT/HCPCS: 80048; 82306; 85027; 82728; 83036; 84100; 84443

== ENCOUNTER 2023-05-05 07:57 | Outpatient (CLI) | payer MEDICARE, OTHER, SELFPAY ==
[2023-05-05 08:18] VITALS: BP 105/63; PULSE 51; RESP 20; TEMP 36.7; O2SAT 95
[2023-05-05] MEDS: fentaNYL 100 MCG/2 ML VIAL IVP (08:54)
[2023-05-05] MEDS: Lactated Ringers 500 ML 80 ML IV (08:54)
[2023-05-05 09:15] VITALS: BP 126/69; PULSE 91; RESP 18; O2SAT 96
--- NOTE | 2023-05-05 09:20 | DI.RAD_ITS ---
Exam(s) XR PAIN CLINIC LUMBAR SP 2V EXAM: XR PAIN CLINIC LUMBAR SP 2V CLINICAL HISTORY: DX: Lumbar spondylosis TECHNIQUE: 2D and realtime digital imaging was performed. Radiologist not present. CONTRAST MATERIAL: None. COMPARISON: No exams were available for comparison FINDINGS: Fluoroscopy was provided for pain management therapy. Please refer to procedure report or details. Radiation Exposure Index: Ka,r=17.44 mGy IMPRESSION: As above. RADIATION DOSE DELIVERED:
[2023-05-05] MEDS: Lidocaine 2% Pres-Free 5 ML VIAL IJ (09:29)
[2023-05-05] MEDS: Bupivacaine 0.5% Pres-Free 10 ML VIAL IJ (09:30)
[2023-05-05] MEDS: methylPREDNISolone ACETATE 40 MG/ML VIAL IJ (09:31)
--- NOTE | 2023-05-05 09:39 | PDOC.PAIN_ITS ---
Date of service: 05/05/23 Time of Service: 09:39 Pain Managment Procedure Note Procedure Note Procedure Note: PROCEDURE NOTE RIGHT LUMBAR RADIOFREQUENCY ABLATION Date of Service: May 05, 2023 Patient:? Fredo Osman? Provider:? Sergio Valdivia DO, MPH Fredo Osman [facility] Lumbar Radiofrequency Ablation with the [facility].? 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 PROCEDURE: Radiofrequency Ablation of medial branches - right L2, L3, L4, L5 and lateral branches of right S1. Fredo?was interviewed and the medical record was reviewed.? There were no medical, pharmacologic, radiographic or other structural contraindications to attempting fluoroscopically guided RIGHT Lumbar Radiofrequency Ablation.?Risks and expected side effects as well as potential benefit of the procedure were reviewed with Fredo, and the patient's voiced concerns were addressed.? The printed consent form was signed.? Standard time-out procedure was performed. Fredo was brought into the fluoroscopy suite and positioned into the prone position on the fluoroscopy table and allowed to adjust to a position of comfort. A grounding pad was placed on the left abdomen. The sterile field was prepared using chlorhexidine preparation of the skin and sterile draping. Local anesthesia superficial and deep was provided by local infiltration of 2% lidocaine. A 17g 100 mm radiofrequency introducer needle was placed to the planned anatomic targets guided with intermittent fluoroscopy with a perpendicular approach to terminally place at the junction of the superior articular process and the transverse process of the right L3, L4, L5, the base of the sacral ala on the right for the L5 medial branch nerve and the area between base of the sacral ala to the S1 foramen on the right. The stylets were removed and radiofrequency probes with a 4mm active tip were then inserted. Needle tip position of the probes was verified in the AP, oblique, and lateral views. At each site, the medial branch nerve was stimulated at 2 Hz to a maximum 1-2 volts determined to finalize safe needle and electrode placement. The patient was awake and responsive during this portion of the procedure. Each target was anesthetized with 1-2 mL of 2 % Lidocaine for anesthesia for lesioning and then each target was lesioned at 80 degrees Celsius for 2 minutes and 30 seconds. Tissue impedances were noted to be between 250 and 500 Ohms. There was no unusual discomfort expressed by Fredo. The needles were withdrawn without difficulty and bandages placed over the needle placement sites, the patient was observed and was without hemodynamic, neurologic, or allergic reactions. Fluoroscopic images were digitally archived. POST PROCEDURE EVALUATION: IMPRESSION: 1. Summary of procedure. Medication given is documented in the MAR. 2. Follow up plan: Fredo to contact [facility] as needed.?This procedure may be repeated if the patient achieves at least 50% improvement in pain/function for at least 6 months. 3. Estimated Blood Loss: <5 mls 4. Fluoroscopy time: Documented in the EMR. Follow up plans and appointments were discussed with the Fredo. Post procedure instruction was given as documented in nursing documentation and having met discharge criteria, Fredo was discharged from the [facility]. COMMENTS: No apparent complications. Post-procedure pain: VAS= 5/10. I personally completed the entire procedure. SERGIO VALDIVIA DO, MPH ABPM&R - Subspecialty board certification in Pain Medicine [facility]
== END 2023-05-05 07:58 | disposition home or self-care (01) ==
LOC: PC 07:57
PROVIDERS: PCP Family Medicine; Visit Provider Preventive Medicine Occupational Medicine
DX: M54.50 Low back pain, unspecified (principal); M47.817 Spondylosis without myelopathy or radiculopathy, lumbosacral region
CPT/HCPCS: 00123; 64635; 64636; 72100; J1030; J3010

== ENCOUNTER → 2023-05-20 12:52 | Outpatient (BNVA) | payer MEDICARE, OTHER, SELFPAY | PROVIDERS: PCP Family Medicine; Referring Provider Family Medicine; Visit Provider Physician Assistant | DX: M16.11 Unilateral primary osteoarthritis, right hip (principal) | CPT/HCPCS: 20611; J1040 ==

== ENCOUNTER 2023-05-24 13:51 | Observation (INO) | payer MEDICARE, OTHER, SELFPAY ==
[2023-05-24] VITALS (69 sets, daily range): BP systolic 58–154; BP diastolic 21–85; PULSE 89–110; RESP 13–27; TEMP 36.6–36.7; O2SAT 93–99
--- NOTE | 2023-05-24 13:45 | RT.EKG_ITS ---
APPROVED REPORT Exam: Resting ECG Reason for Exam: chest pain Patient Location: E HR:90 bpm ECG Measurements Heart Rate 90 AXIS WV 124 P 52 QRSd 90 QRS 18 QT 357 T 177 QTc 438 Conclusion Sinus rhythm...normal P axis, V-rate 60- 99 Nonspecific T abnormalities, diffuse leads...T <-0.10mV, ant/lat/inf
--- NOTE | 2023-05-24 14:30 | RT.EKG_ITS ---
APPROVED REPORT Exam: Resting ECG Reason for Exam: left arm pain Patient Location: E HR:93 bpm ECG Measurements Heart Rate 93 AXIS KS 127 P 51 QRSd 91 QRS 27 QT 355 T 170 QTc 442 Conclusion Sinus rhythm...normal P axis, V-rate 60- 99
[2023-05-24 14:32] LABS: Abs Immature Grans 0.11 10^3/uL (0.0-0.06); Absolute Basophil Count 0.11 10^3/uL (0.0-0.2); Absolute Eosinophil Count 0.14 10^3/uL (0.0-0.7); Absolute Lymphocyte Count 1.76 10^3/uL (1.2-3.4); Absolute Monocyte Count 0.95 10^3/uL (0.1-0.8); Absolute Neutrophil Count 7.01 10^3/uL (1.2-6.7); Basophils % 1.1; Eosinophils % 1.4; HCT 43.6 % (40.0-50.0); HGB 14.6 g/dL (13.5-17.5); Immature Grans % 1.1; Lymphocytes % 17.5; MCH 28.2 pg (27.0-33.0); MCHC 33.5 % (32.0-36.0); MCV 84 fL (80-95); Monocytes % 9.4; Neutrophils % 69.5; Platelet Count 167 10^3/uL (130-400); RBC 5.18 10^6/uL (4.36-5.78); RDW 15.3 % (11.8-14.1); WBC 10.08 10^3/uL (4.4-10.8)
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
[2023-05-24 14:45] LABS: PTT Activated 26.6 sec (23.6-32.8)
[2023-05-24 14:50] LABS: ALT 40 U/L (16-63); AST 21 U/L (15-37); Alkaline Phosphatase 78 U/L (46-116); Anion Gap 10.7 mmol/L (3-11); BUN 34 mg/dL (7-18); Bilirubin, Total 0.3 mg/dL (0.2-1.0); CO2 22.3 mmol/L (21.0-32.0); CREATININE 1.9 mg/dL (0.70-1.30); Calcium 8.8 mg/dL (8.5-10.1); Chloride 104 mmol/L (98-107); Estimated GFR 36.79 (mL/min/1.73m2); Glucose 172 mg/dL (74-106); Magnesium 2.4 mg/dL (1.8-2.4); Potassium 3.7 mmol/L (3.5-5.1); Sodium 137 mmol/L (136-145); Total Protein 7.1 g/dL (6.4-8.2); Troponin I < 50 ng/L (<or=60)
[2023-05-24] MEDS: nitroGLYcerin 0.4 MG TAB SL ×2 (15:21→18:58)
--- NOTE | 2023-05-24 16:45 | DI.RAD_ITS ---
Exam(s) XR CHEST 2V PA LATERAL EXAM: XR CHEST 2V PA LATERAL CLINICAL HISTORY: chest pain TECHNIQUE: 2D digital imaging was performed. COMPARISON: CT CT CHEST/ABD/PEL W from 05/21/2022 FINDINGS: HEART: Normal size. Status post CABG. Aorta: Not dilated. Tortuous. PULMONARY VASCULATURE: Normal. LUNGS: Clear. PLEURAL SPACE: No pleural effusion or pneumothorax. BONE:Old lower thoracic compression fracture. Sternal wires. Soft tissues: Unremarkable. IMPRESSION: No acute abnormality. DATA REPOSITORY: RADIATION DOSE DELIVERED:
--- NOTE | 2023-05-24 17:29 | ED.PROG_ITS ---
Date of service: 05/24/23 Time of Service: 17:00 Medical Decision Making This patient was signed out to me. Please see previous notes for H&P and initial eval. In brief, 72yo male presenting with high-risk chest pain. Pain improved with SL nitro. EKG no stemi, initial trop negative. Pending delta troponin, CXR, anticipate admission for high risk chest pain. Repeat troponin negatvie. CXR with no acute findings. Discussed with hospitalist environmental remediation specialist and accepted to medicine service, awaiting transfer to the floor. Imaging Data Radiologic Study: Imaging: X-Ray Radiologist's impression: IMPRESSION: No acute abnormality. Sign Out Sign Out Data: Sign Out Comment: Follow-up on delta troponin and cxr and reassess patient for disposition. Last updated by Solomon Quiñones MD at 05/24/23 16:56 Discharge Plan Disposition Patient Disposition: Admit to [facility] Condition: Serious Discharge Details Chief Complaint: Chest Pain Clinical Impression: Chest pain Primary Care Provider: Alisa Ramirez ED Provider: Sierra Paulino Home Meds and New Rx's Prescriptions: No Action finasteride 5 mg tablet 5 mg PO DAILY Qty: 90 4RF carboxymethylcellulose sodium [Refresh Tears] 0.5 % Drops 1 - 2 drp OPHTHALMIC (EYE) QID PRN Myrbetriq 25 mg tablet extended release 24 hr 25 mg PO DAILY Qty: 90 3RF acetylcysteine [NAC] 600 mg capsule 600 mg PO BID metoprolol succinate 50 mg tablet extended release 24 hr 50 mg PO HS citalopram 20 mg tablet 10 mg PO DAILY diclofenac sodium [Voltaren] 1 % gel 1 applic topical DIRECTED Rx Instructions: apply to single elbow, wrist or hand; for hand includes palm/fingers/back of hand polyethylene glycol 3350 [Miralax] 17 gram/dose powder 17 g PO DAILY ketoconazole 2 % cream 1 applic topical DAILY 90 Days Qty: 60 0RF Rx Instructions: Apply to toenails once daily ketoconazole 2 % cream 1 applic topical DAILY 90 Days Qty: 60 3RF Rx Instructions: Apply to toenails once daily nitroglycerin [Nitrostat] 0.4 MG tablet, sublingual 0.4 mg Sublingual as directed metformin 1,000 mg tablet 1,000 mg PO BID allopurinol 300 mg tablet 300 mg PO DAILY triamcinolone acetonide 0.1 % cream 1 applic topical BID cod liver oil Capsule 2 cap PO DAILY Rx Instructions: 1,000mg / cap riboflavin (vitamin B2) [Vitamin B-2] 100 mg tablet 400 mg PO .QD pregabalin 100 mg capsule 100 mg PO BID levothyroxine 50 MCG tablet 50 mcg PO DAILY@0730 quetiapine [Seroquel] 300 MG tablet 300 mg PO HS rosuvastatin [Crestor] 20 MG tablet 20 mg PO HS lisinopril 20 mg tablet 30 mg PO DAILY isosorbide mononitrate 60 mg tablet extended release 24 hr 60 mg PO HS Rx Instructions: TAKE ALONG WITH 30MG TAB FOR TOTAL DAILY DOSE OF 90MG lidocaine [Lidoderm] 1 PATCH patch 1 patch Topical Q24H Qty: 4 0RF methocarbamol 500 mg tablet 500 mg PO Q6H PRN (Reason: muscle spasm) Qty: 14 0RF docusate sodium [Colace] 100 mg Capsule 100 mg PO DAILY PRN topiramate 25 mg tablet 25 mg PO HS Patient Comments: TAKE 1 TABLET BY MOUTH AT BEDTIME topiramate 50 mg tablet 50 mg PO HS Patient Comments: TAKE 1 TABLET BY MOUTH ONCE DAILY amlodipine 2.5 mg tablet 2.5 mg PO DAILY tramadol 50 mg tablet 50 mg PO QHS PRN (Reason: pain) bisacodyl [Dulcolax (bisacodyl)] 5 mg Tablet,Delayed Release (Dr/Ec) 5 mg PO ONCE cholecalciferol (vitamin D3) [Vitamin D3] 25 mcg (1,000 unit) tablet 1,000 unit PO DAILY pantoprazole [Protonix] 40 mg tablet,delayed release (DR/EC) 40 mg PO DAILY Qty: 30 0RF Victoza 2-Thanh 0.6 mg/0.1 mL (18 mg/3 mL) pen injector 1.8 mg SUBCUT HS magnesium 200 mg Tablet 400 mg PO DAILY mupirocin 2 % Ointment 1 applic TOPICAL BID potassium chloride 10 mEq Capsule, Extended Release 10 meq PO DAILY insulin glargine [Lantus Solostar U-100 Insulin] 100 unit/mL (3 mL) insulin pen 75 unit subcut BID ranolazine 500 mg tablet extended release 12 hr 500 mg PO BID
[2023-05-24 18:22] LABS: Troponin I < 50 ng/L (<or=60)
--- NOTE | 2023-05-24 19:08 | W.PM.HP.N ---
Date of service: 05/24/23 Time of Service: 19:08 Assessment and Plan Assessment and plan (1) Chest pain: Status: Acute Assessment and plan: CP. High risk ACS (unstable angina), though negative trop and absence of EKG changes during pain are reassuring to a degree. Aspirin and heparin contraindicated (as above), but will start on NTG infusion, complete trop series and, if negative, plan on stress test in AM. Will also increase beta yamilet as pulses in 90s clearly indicates insufficient blockade. History of Present Illness History of Present Illness Chief Complaint: CP Narrative: 72 male with h/o CAD, s/p CABG 2015, s/p repeat cath 2020 with patent grafts and no obstructive disease, s/p admit 2021 for CP deemed musculoskeletal. Here with one day of recurring substernal CP with radiation to LUE, which he reports is identical to prior CO. Had three episodes at home, responsive to SL NTG. Here in ER w/u of note for negative trop x2 and EKG showing non-specific TW changes, similar to baseline. Notably patient has had tewo more episodes of pain here InER, again responsive to NTG, and on the first of these an EKG showed no dynamic changes. Note that patient has h/o subdural bleed -- he states he has had bleeding four times -- and there is mention in prior notes that anticoagulation and antiplatelet agents are thereby contraindicated. 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) Hypertrophy of nasal turbinates (Chronic 08/05/15) Mild cognitive impairment (Chronic 01/31/18) Sensorineural hearing loss, asymmetrical (Chronic 05/12/13) Sensory hearing loss, bilateral (Chronic 04/09/14) Atypical chest pain (Acute) Musculoskeletal; Negative NPI 04/29/2018 Chronic rhinitis (Chronic) Lumbosacral spondylosis without myelopathy (Acute) Lumbar radiculitis (Acute) Lower urinary tract symptoms (Chronic) Pituitary abnormality (Acute) Cubital tunnel syndrome on right (Acute) Hand weakness (Acute) Neck pain (Acute) Chest pain (Acute) Chronic subdural hematoma (Chronic) Arthritis of right hip (Acute) 80 mg depo-medrol injection under u/s: 05/20/2023 Chest wall muscle strain (Acute) Unstable angina (Acute) Chest pain (Acute) Compression fracture of lumbar vertebra (Acute) Lumbar radiculopathy (Acute) Nail dystrophy (Acute) Chest pain (Acute) Hammertoe (Acute) Tubular adenoma of colon (Acute ~09/24/22) Hyperplastic colon polyp (Acute ~09/24/22) Shoulder pain, left (Acute) Partial tear of left rotator cuff (Acute) Hammertoe of left foot (Acute) Hammertoe of right foot (Acute) Onychomycosis (Acute) Medical History Lipoma of lower extremity left foot Alcohol abuse Tinea pedis Dementia History of subdural hematoma Hip joint pain Callus of foot Chronic kidney disease Traumatic brain injury Sleep apnea Pain, joint, shoulder region, left Decreased hearing of both ears At risk for falling Vitamin B12 deficiency Ataxia Foot pain Peripheral neuropathy Left arm pain Left cervical radiculopathy Cecal volvulus Shoulder pain Low back pain Viral URI with cough UTI (urinary tract infection) UTI (urinary tract infection) Rhinorrhea Knee pain, right Rathke's pouch cyst Hx of traumatic brain injury 1968-- states he's had 4 brain bleeds 2017 Migraine headache Recurrent UTI Anemia, iron deficiency Volvulus of cecum Constipation, chronic Mild dementia Pain in joint of right foot History of rib fracture Rib pain on left side Left rib fracture Contusion of right hip Head trauma Right sided weakness Urethral stricture (08/20/15) Postnasal drip (05/13/15) Fatty liver Vitamin D deficiency GERD (gastroesophageal reflux disease) H/O alcohol abuse pt. denies MRSA infection Depression Colon polyps DM type 2 (diabetes mellitus, type 2) Urethral stricture Chronic low back pain Gout Diastasis recti Obstructive sleep apnea Headaches due to 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 Hx of deep venous thrombosis Surgical History History of cardiac cath History of colonoscopy with polypectomy (~09/24/22) facial lesion removal electroconvulsive therapy Repair of umbilical hernia Repair of inguinal hernia (08/05/17) right inguinal hernia repair by Dr Arroyo on 08/05/17 Colonoscopy - MAC 2009-5year f/u Extraction of cataract 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 Appendectomy (06/01/16) Social History Smoking/Tobacco Use Status: Former Tobacco Use tobacco type: cigarettes Quit Date: 06/21/80 Pack-years: 5 Smoking risk assessment performed?: Yes Alcohol Intake: former Drug use: Never Substance use type: does not use Household members: spouse Housing: house Pets and animals: Yes Pets and animals: dog(s) Current gender identity: male Do you feel safe at home: Yes Do you feel safe in your relationship?: Yes Meds Allergies and Home Medications Allergies Allergy/AdvReac Type Severity Reaction Status Date / Time amoxicillin Allergy Severe breathing Verified 05/24/23 14:02 difficuty and vomiting Penicillins Allergy Intermediate Skin Rash Verified 05/24/23 14:02 sulfamethoxazole Allergy Intermediate Skin Rash Verified 05/24/23 14:02 [From Bactrim] trimethoprim [From Bactrim] Allergy Intermediate Skin Rash Verified 05/24/23 14:02 oxycodone HCl [From Percocet] AdvReac Severe Contraindic Verified 05/24/23 14:02 ated oxycodone terephthalate AdvReac Severe Contraindic Verified 05/24/23 14:02 [From Percodan] ated Home Medications Medication Instructions Recorded Confirmed Type levothyroxine 50 mcg tablet 50 mcg PO DAILY@0730 01/24/13 05/24/23 History quetiapine 300 mg tablet (Seroquel) 300 mg PO HS 01/24/13 05/24/23 History rosuvastatin 20 mg tablet (Crestor) 20 mg PO HS 03/22/17 05/24/23 History nitroglycerin 0.4 mg sublingual 0.4 mg sublingual as directed 04/08/17 05/24/23 History tablet (Nitrostat) pantoprazole 40 mg tablet,delayed 40 mg PO DAILY #30 tabs 04/25/19 05/24/23 Rx release (Protonix) metoprolol succinate 50 mg 50 mg PO HS 05/10/19 05/24/23 History tablet,extended release 24 hr acetylcysteine 600 mg capsule (NAC) 600 mg PO BID 05/16/19 05/24/23 History citalopram 20 mg tablet 10 mg PO DAILY 05/16/19 05/24/23 History diclofenac sodium 1 % topical gel 1 applic topical DIRECTED 04/30/20 05/24/23 History (Voltaren) liraglutide 0.6 mg/0.1 mL (18 mg/3 1.8 mg subcut HS 06/19/20 05/24/23 History mL) subcutaneous pen injector (xTurion 2-Thanh) isosorbide mononitrate 60 mg 60 mg PO HS 09/18/20 05/24/23 History tablet,extended release 24 hr lidocaine 5 % topical patch 1 patch topical Q24H #4 ea 10/14/20 05/24/23 Rx (Lidoderm) methocarbamol 500 mg tablet 500 mg PO Q6H PRN muscle spasm #14 11/07/20 05/24/23 Rx tabs docusate sodium 100 mg capsule 100 mg PO DAILY PRN 01/07/21 05/24/23 History (Colace) topiramate 25 mg tablet 25 mg PO HS 01/09/21 05/24/23 History topiramate 50 mg tablet 50 mg PO HS 01/09/21 05/24/23 History carboxymethylcellulose sodium 0.5 1 - 2 drp ophthalmic (eye) QID PRN 03/27/21 05/24/23 History % eye drops (Refresh Tears) magnesium 200 mg tablet 400 mg PO DAILY 06/07/21 05/24/23 History amlodipine 2.5 mg tablet 2.5 mg PO DAILY 08/18/21 05/24/23 History finasteride 5 mg tablet 5 mg PO DAILY #90 tabs 08/18/21 05/24/23 Rx mupirocin 2 % topical ointment 1 applic topical BID 09/14/21 05/24/23 History potassium chloride 10 mEq 10 meq PO DAILY 09/14/21 05/24/23 History capsule,extended release allopurinol 300 mg tablet 300 mg PO DAILY 04/23/22 05/24/23 History metformin 1,000 mg tablet 1,000 mg PO BID 04/23/22 05/24/23 History triamcinolone acetonide 0.1 % 1 applic topical BID 04/23/22 05/24/23 History topical cream cod liver oil 2 cap PO DAILY 06/19/22 05/24/23 History lisinopril 20 mg tablet 30 mg PO DAILY 06/19/22 05/24/23 History tramadol 50 mg tablet 50 mg PO QHS PRN pain 06/19/22 05/24/23 History riboflavin (vitamin B2) 100 mg 400 mg PO .QD 06/25/22 05/24/23 History tablet (Vitamin B-2) cholecalciferol (vitamin D3) 25 1,000 unit PO DAILY 11/25/22 05/24/23 History mcg (1,000 unit) tablet (Vitamin D3) polyethylene glycol 3350 17 17 g PO DAILY 11/25/22 05/24/23 History gram/dose oral powder (Miralax) bisacodyl 5 mg tablet,delayed 5 mg PO ONCE 12/16/22 05/24/23 History release (Dulcolax (bisacodyl)) ketoconazole 2 % topical cream 1 applic topical DAILY 3 months 03/08/23 05/24/23 Rx #60 grams mirabegron 25 mg tablet,extended 25 mg PO DAILY #90 tabs 03/11/23 05/24/23 Rx release 24 hr (Myrbetriq) pregabalin 100 mg capsule 100 mg PO BID 04/16/23 05/24/23 History ketoconazole 2 % topical cream 1 applic topical DAILY 3 months 04/27/23 05/24/23 Rx #60 grams insulin glargine 100 unit/mL (3 75 unit subcut BID 05/24/23 05/24/23 History mL) subcutaneous pen (Lantus Solostar U-100 Insulin) ranolazine 500 mg tablet,extended 500 mg PO BID 05/24/23 05/24/23 History release,12 hr Exam Narrative Exam Narrative: 145/68, 90, 36.7, 20, 97% RA. HEENT atraumatic, old skull defect right fronto-parietal area; neck supple; lungs clear; heart RRR; abdomen soft and NT; extremities w/o edema, pulses 2/+/=; neuro Ox3, moves all 4s Results Labs 12/04/23 14:20 05/24/23 14:20 Labs: Laboratory Results - last 24 hr 05/24/23 05/24/23 14:20 18:02 WBC 10.08 RBC 5.18 Hgb 14.6 Hct 43.6 MCV 84 MCH 28.2 MCHC 33.5 RDW 15.3 H Plt Count 167 MPV 9.0 Immature Gran % 1.1 Neutrophils % 69.5 Lymphocytes % 17.5 Monocytes % 9.4 Eosinophils % 1.4 Basophils % 1.1 Nucleated RBC % 0.0 Absolute Neutrophils 7.01 H Absolute Lymphocytes 1.76 Absolute Monocytes 0.95 H Absolute Eosinophils 0.14 Absolute Basophils 0.11 APTT 26.6 Sodium 137 Potassium 3.7 Chloride 104 Carbon Dioxide 22.3 Anion Gap 10.7 BUN 34 H Creatinine 1.9 H Est GFR (CKD-EPI 2020) 36.79 Glucose 172 H Calcium 8.8 Magnesium 2.4 Total Bilirubin 0.3 AST 21 ALT 40 Alkaline Phosphatase 78 Troponin I < 50 < 50 Total Protein 7.1 Albumin 4.0 Last Vital Signs Temp 36.7 C 05/24/23 13:57 Pulse 90 05/24/23 18:31 Resp 20 05/24/23 18:50 BP 145/68 H 05/24/23 18:31 Pulse Ox 97 05/24/23 17:50 Time Spent Time spent with Patient: 55-74 minutes Time was spent: preparing to see the patient(eg.review tests), obtaining and/or reviewing separately otained hiistory, ordering medications,tests, procedures, referring, communicating with other health complex care nurse practitioner and indepentently interpreting results
--- NOTE | 2023-05-24 19:21 | NUR.NOTE ---
Assumed care of pt from MERON RN, MERON gave report, I introduced myself to the pt and performed a reassessment of the pt and obtained HPI, FPJ
--- NOTE | 2023-05-24 19:24 | NUR.NOTE ---
Pt received 1 NTG for chest pain prior to my assuming care, pt is currently pain free, ROGER
[2023-05-24] MEDS: QUEtiapine 300 MG TAB PO (22:32)
[2023-05-24] MEDS: Metoprolol 25 MG TAB PO (22:32)
[2023-05-24] MEDS: Metoprolol CR 50 MG TABCR PO (22:32)
[2023-05-24] MEDS: Normal Saline Flush 10 ML SYR IVP (22:33)
[2023-05-24 22:36] LABS: Troponin I < 50 ng/L (<or=60)
[2023-05-24] MEDS: Pregabalin 100 MG CAP PO (23:59)
[2023-05-24] MEDS: Insulin Glargine 300 UNITS/3 ML PEN 50 UNITS SC (23:59)
[2023-05-24] MEDS: Acetylcysteine 600 MG CAP PO (23:59)
[2023-05-24] MEDS: Rosuvastatin 10 MG TAB 20 MG PO (23:59)
[2023-05-25] VITALS (15 sets, daily range): BP systolic 97–141; BP diastolic 61–80; PULSE 75–100; RESP 14–25; TEMP 36.4–36.6; O2SAT 92–99
--- NOTE | 2023-05-25 | DI.US_ITS ---
APPROVED REPORT EXAM: Comprehensive 2D, Doppler, and color-flow Echocardiogram Patient Location: In-Patient Room/Bed: [id number] Eyelet Machine Operator: Candy Diaz RDCS (AE) Indications: Unstable angina, Chest pain Other Information Study Quality: Fair. Technically limited study due to body habitus. Conclusion Normal left ventricular wall thickness and chamber size. Ejection fraction is 50 to 55%. There are no segmental wall motion abnormalities Normal right ventricular size and systolic function Both atria are normal in size Aortic valve is mildly sclerotic and trileaflet with mild regurgitation Mild mitral annular calcification, mild mitral regurgitation Mildly dilated ascending aorta 3.8 cm Estimated right ventricular systolic pressure is 29 mmHg Wall motion Left Ventricle The left ventricle is normal size. The left ventricular systolic function is normal. The left ventric ular ejection fraction is within the normal range. There is normal left ventricular wall thickness. T here are no segmental wall motion abnormalities There is no ventricular septal defect visualized. LVE F is 50-555%. Right Ventricle Right ventricle is grossly normal in size. Right ventricular systolic function is grossly normal. Atria The left atrium size is normal. The right atrium size is normal. The interatrial septum is intact wit h no evidence for an atrial septal defect. Aortic Valve The Aortic valve is mildly sclerotic. Aortic valve is trileaflet. There is no aortic valvular stenosi s. Mild aortic regurgitation. Mitral Valve Mild mitral annular calcification. No evidence of mitral valve stenosis. Mild mitral regurgitation. Tricuspid Valve The tricuspid valve is normal in structure. There is no tricuspid valve stenosis. Trace to mild tricu spid regurgitation. The RVSP is 28.7 mmHg. Pulmonic Valve Pulmonic valve is not well visualized. There is no pulmonic valvular stenosis. There is no pulmonic v alvular regurgitation. Great Vessels The aortic root is normal in size. The ascending aorta is mildly dilated. Aortic arch is normal in ca liber. IVC is normal in size and collapses >50% with inspiration. Pericardium There is no pericardial effusion. 2D Dimensions IVSD d PLAX 0.89 cm M: 0.6-1.2 Ao Root d 3.68 cm M: 3.1 - 3.7 LVPW d PLAX 0.91 cm M: 0.6 - 1.2 Ao Asc Diam d 3.77 cm M: 2.6 - 3.4 LVID d PLAX 4.65 cm M: 4.2 - 5.8 LVDs 3.62 cm M: 2.5 - 4.0 LV EF Teichholz 44.9 % FS 22.24 % LV EDV (Teich) 100.1 mL LV ESV (Teich) 55.1 mL M-Mode TAPSE 1.52 cm (M/F) >1.7 Auto EF LV EDV A4C 105.0 mL LV EDV A2C 105.0 mL LV EDV BP 105.2 mL LV ESV A4C 62.1 mL LV ESV A2C 57.6 mL LV ESV BP 62.2 mL LVEF(%) A4C 40.8 % LVEF(%) A2C 45.1 % LVEF(%) BP 40.9 % LV SV A4C 42.9 ml LV SV A2C 47.3 ml LV SV BP 43.1 ml LV CO A4C 3.1 L/min LV CO A2C 3.6 L/min LV CO BP 3.4 L/min HR A4C 72.58 BPM HR A2C 75.95 BPM LV EDV Index (BP) LV Strain Long Pk Overal Avg (s) 11.86 LA Volume LA Length A4C 4.8 cm LA Length A2C 4.2 cm LA Area A4C s 16.71 cm2 LA Area A2C s 15.79 cm2 LA Vol A4C A-L 49.01 mL LA Vol A2C A-L 49.93 mL LA Vol Biplane A-L 52.9 mL LA Vol/BSA A4C A-L LA Vol/BSA A2C A-L LA Vol/BSA BP A-L 25.7 mL/m2 LA Vol A4C MOD 44.3 mL LA Vol A2C MOD 44.6 mL LA Vol BP MOD 47.2 mL RA Volume RA Area A4C 12.3 cm2 RA ESV A4C (A-L) 30.5mL RA Vol/BSA A4C A-L RA Length A4C 4.2 cm RA ESV A4C (MOD) 28.0mL LV Diastology MV E' medial 0.062 (>0.07 m/s) MV E Vmax 0.69 (0.4-1.3 m/s) MV E/E' MED 11.24 (<14) MV A Vmax 0.85 (0.4-1.3 m/s) MV E' lateral 0.064 (>0.1 m/s) E/A Ratio 0.8 MV E/E' LAT 10.78 (<14) MV E' Average 0.063 m/s MV E/E'(average) 11.00 Aortic Valve AoV Vmax 1.07 m/s LVOT Vmax 0.82 m/s AoV Peak Grad 18.1 mmHg LVOT Peak Grad 2.7 mmHg AoV Area (Vmax) 2.42 cm2 LVOT VTI 0.173 m AoV VTI 0.241 m LVOT Mean Grad 1.2 mmHg AoV Mean Shemar. 0.74 m/s LVOT SV 54.51 mL AoV Mean Grad 2.5 mmHg LVOT Diam s 2.00 cm AoV Area (VTI) 2.26 cm2 AV Regurg Peak Gr. 31.65 mmHg Velocity Ratio 0.77 AR Decel [place] 1.7m/sec2 AR DT 1702 msec AR PHT 493 msec AR Vmax 2.81 m/s Mitral Valve MV DT 217 (160-240 msec) MV Vmax TIPS 0.81 m/s MV Mean Grad 1.2 (<2mmHg) MV VTI 0.238 m Pulmonary Valve PV Vmax 0.81 (0.5-1.5 m/s) RVOT Vmax 0.61 m/s PV Peak Grad 2.6 mmHg RVOT Peak Gr. 1.5 mmHg PV Mean Shemar 0.48 m/s RVOT VTI 0.164 m PV Mean Grad 1.2 mmHg RVOT Mean Gr. 1.0 mmHg Tricuspid Valve RA Pressure 3.00 mmHg TR Vmax 2.53 m/s TV S' 0.09 m/s TR Peak Grad 25.6 mmHg RVSP (TR) 28.7 mmHg
--- NOTE | 2023-05-25 | DI.NM_ITS ---
APPROVED REPORT Exam: Pharmacologic Patient Location: In-Patient Room/Bed: Stress Nurse: Nemo Helm RN Ordering Provider:REYNALDO LOPEZ, Contact Number: [phone] BMI: 27.97 Baseline Rhythm: Sinus Rhythm Indications: Chest pain Medical History Medical History: DMT2, CAD, poor balance, hypothyroidism, mild cognitive impairment, unstable angina, ETOH abuse, CKD, TBI, dementia, GERD, depression, DVT Cardiac Medications: Amlodipine, lisinopril, magnesium, metoprolol succinae, nitro, finasteride, lant us, isosorbide mononitrate, levothyroxine, metformin, myrbetriq, pantoprazole, potassium chloride, pr egabalin, quetiapine, ranolazine, riboflavin, rosuvastatin, topiramate, tramadol, victoza Allergies: Amoxicillin, sulfa, oxycodone, bactrim Cardiac Risk Factors: HTN, CVD, diabetes, former smoker, HLD Previous Cardiac Procedures: None Pretest Chest Pain Characteristics: 09/28 chest pain Exercise History: Sedentary Physical Disabilities: Poor balance Lung Sounds: Clear to auscultation Heart Sounds: Regular Stress Test Details Test: Pharmacologic stress testing performed using 0.4 mg of regadenoson per 5 mL given IV over 10 s econds. Reason for pharmacologic stress test: physical limitation. Nuclear Acquisition: Rest Tc-99m/Stress Tc-99m 1 day Rest Isotope: Tc-99m Sestamibi. Dose: 10.0 Date: 05/25/2023 Injection Time: 1130 Stress Isotope: Tc-99m Sestamibi. Dose: 30.0 Date: 05/25/2023 Injection Time: 1312 HR Resting HR Supine: 77 bpm Max Heart Rate (APMHR): 147.411348 bpm Target HR (85% APMHR): 124.315883 bpm Max HR Achieved: 94 bpm % of APMHR: 63.95 Recovery HR: 88 bpm BP Resting BP Supine: 128/78 mmHg Max BP: 130/72 mmHg ECG Resting ECG: Sinus Rhythm Ectopy: Rare PAC Stress ECG: Sinus Rhythm ST Change: Nondiagnostic low heart rate Arrhythmia: Rare PAC Recovery ECG: Sinus Rhythm Recovery ST Change: Nondiagnostic low heart rate Recovery Arrhythmia: Rare PAC Clinical Stress Symptoms: Chest pain Angina Score: Non-Limiting Rate Pressure Product: 88235 Stress ECG Conclusion 1. Electrocardiogram showed an IVCD and nondiagnostic ST-T abnormalities 2. Patient underwent testing using pharmacologic stress with regadenoson 3. Peak heart rate achieved was 64% of predicted for age 4. Electrocardiographic portion of the test was nondiagnostic 5. There were no significant dysrhythmias 6. See MPI report Stress Test Summary STAGE HR BP SpO2 Symptoms NOTES Supine 77 128/78 1 min post Lexiscan injection 85 130/72 3 min post Lexiscan injection 89 124/70 6 min post Lexiscan injection 93 126/68 9 min post Lexiscan injection 88 124/70 MPI Conclusion Myocardial perfusion is normal. There is no ischemia or evidence of prior infarction Calculated ejection fraction is 49%. Visually appears greater than 55% with normal wall motion Radiologist Interpretation Radiologist agrees with Lead Burner's Interpretation. Radiologist Interpretation by: Narciso Madden MD Interpretation Date/Time: 05/26/2023 11:35:04
[2023-05-25] MEDS: Levothyroxine 50 MCG TAB PO (05:34)
--- NOTE | 2023-05-25 07:00 | RT.EKG_ITS ---
APPROVED REPORT Exam: Resting ECG Reason for Exam: chest pain Patient Location: I HR:74 bpm ECG Measurements Heart Rate 74 AXIS OH 183 P 15 QRSd 89 QRS 20 QT 418 T 101 QTc 464 Conclusion Sinus rhythm...normal P axis, V-rate 50- 99 Abnormal R-wave progression, early transition...QRS area>0 in V2 Minor Nonspecific T abnormalities, lateral leads...T <-0.10mV, I aVL V5 V6
[2023-05-25 08:27] LABS: Anion Gap 11.2 mmol/L (3-11); BUN 36 mg/dL (7-18); CO2 20.8 mmol/L (21.0-32.0); CREATININE 1.6 mg/dL (0.70-1.30); Calcium 8.7 mg/dL (8.5-10.1); Calculated LDL 14 mg/dL (<100); Chloride 106 mmol/L (98-107); Cholesterol 109 mg/dL (<200); Estimated GFR 45.21 (mL/min/1.73m2); Glucose 122 mg/dL (74-106); HDL Cholesterol 34 mg/dL (40-60); Magnesium 2.3 mg/dL (1.8-2.4); Potassium 3.6 mmol/L (3.5-5.1); Sodium 138 mmol/L (136-145); Triglyceride 306 mg/dL (<150)
--- NOTE | 2023-05-25 08:30 | PDOC.CMIN ---
Date of service: 05/25/23 Time of Service: 08:30 Care Management Initial Assmt Initial Assessment REASON FOR HOSPITALIZATION:: Chest Pain PREVIOUS FUNCTIONAL STATUS/SOCIAL/FAMILY SUPPORTS:: Fredo lives in [facility] with his of more than 50 years, Brittany. Their adult son, Andrew also lives at home with them. Fredo is retired and independent with ADL's. He uses a walker and a quad cane for ambulation and has a urinal. Fredo does not receive any services at home but his son and provide a lot of support. He no longer drives but his and son provide transportation. ADVANCE DIRECTIVES:: On file. Brittany [facility] Has patient been provided with info about the portal/API?: Yes Did the patient sign up for the portal?: No CODE STATUS:: Full Code INSURANCE COVERAGE / FINANCIAL ISSUES:: Medicare. [employer] CURRENT HOME/COMMUNITY SERVICES/EQUIPMENT:: walker, quad cane and urinal PRIMARY CARE PHYSICIAN:: Alisa Ramirez POTENTIAL DISCHARGE NEEDS:: Follow up appointments PATIENT/FAMILY EDUCATION NEEDS:: Review discharge instructions, discuss Ask Me Three. ANTICIPATED BARRIERS TO DISCHARGE:: None identified. TRANSPORTATION:: Via private vehicle with his . PLAN:: Per MD, awaiting MPI stress test to inform discharge plan; home with no [id number] transfer. If returning home, Fredo will follow up with his PCP and plan of care as prescribed. He will transport via private vehicle with his . PFSH All Active Problems (Updated 05/25/23 @ 08:46 by Gabriella Cristina MD) Chest pain (Acute) Tendinitis involving hip abductors (Acute) Poor balance (Acute) Frequent falls (Acute) Trochanteric bursitis, right hip (Acute) DEPO MEDROL 03/15/23 Coronary artery disease (Chronic) Hyperlipidemia (Chronic) Diabetes mellitus type 2 in obese (Chronic) Thoracic spondylosis without myelopathy (Chronic) Hyperlipidemia (Acute) Hypothyroidism (Chronic) Hypertension (Chronic) Deviated nasal septum (Chronic 08/05/15) 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) Hypertrophy of nasal turbinates (Chronic 08/05/15) Mild cognitive impairment (Chronic 01/31/18) Sensorineural hearing loss, asymmetrical (Chronic 05/12/13) Sensory hearing loss, bilateral (Chronic 04/09/14) Atypical chest pain (Acute) Musculoskeletal; Negative NPI 04/29/2018 Chronic rhinitis (Chronic) Lumbosacral spondylosis without myelopathy (Acute) Lumbar radiculitis (Acute) Lower urinary tract symptoms (Chronic) Pituitary abnormality (Acute) Cubital tunnel syndrome on right (Acute) Hand weakness (Acute) Neck pain (Acute) Chest pain (Acute) Chronic subdural hematoma (Chronic) Arthritis of right hip (Acute) 80 mg depo-medrol injection under u/s: 05/20/2023 Chest wall muscle strain (Acute) Unstable angina (Acute) Chest pain (Acute) Compression fracture of lumbar vertebra (Acute) Lumbar radiculopathy (Acute) Nail dystrophy (Acute) Chest pain (Acute) Hammertoe (Acute) Tubular adenoma of colon (Acute ~09/24/22) Hyperplastic colon polyp (Acute ~09/24/22) Shoulder pain, left (Acute) Partial tear of left rotator cuff (Acute) Hammertoe of left foot (Acute) Hammertoe of right foot (Acute) Onychomycosis (Acute) Medical History Lipoma of lower extremity left foot Alcohol abuse Tinea pedis Dementia History of subdural hematoma Hip joint pain Callus of foot Chronic kidney disease Traumatic brain injury Sleep apnea Pain, joint, shoulder region, left Decreased hearing of both ears At risk for falling Vitamin B12 deficiency Ataxia Foot pain Peripheral neuropathy Left arm pain Left cervical radiculopathy Cecal volvulus Shoulder pain Low back pain Viral URI with cough UTI (urinary tract infection) UTI (urinary tract infection) Rhinorrhea Knee pain, right Rathke's pouch cyst Hx of traumatic brain injury 1968-- states he's had 4 brain bleeds 2018 Migraine headache Recurrent UTI Anemia, iron deficiency Volvulus of cecum Constipation, chronic Mild dementia Pain in joint of right foot History of rib fracture Rib pain on left side Left rib fracture Contusion of right hip Head trauma Right sided weakness Urethral stricture (08/20/15) Postnasal drip (05/13/15) Fatty liver Vitamin D deficiency GERD (gastroesophageal reflux disease) H/O alcohol abuse pt. 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
[2023-05-25 08:40] LABS: D-Dimer 302 ng/mlFEU (<500)
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
[2023-05-25] MEDS: Finasteride 5 MG TAB PO (08:46)
[2023-05-25] MEDS: Mirabegron 25 MG TABCR PO (08:46)
[2023-05-25] MEDS: Pregabalin 100 MG CAP PO (08:46)
[2023-05-25] MEDS: Polyethylene Glycol 3350 17 GM PACKET PO (08:46)
[2023-05-25] MEDS: Acetylcysteine 600 MG CAP PO (08:46)
[2023-05-25] MEDS: Ranolazine 500 MG TABCR PO (08:46)
[2023-05-25] MEDS: Allopurinol 300 MG TAB PO (08:46)
[2023-05-25] MEDS: Pantoprazole 40 MG TABCR PO (08:47)
[2023-05-25] MEDS: Citalopram 10 MG TAB PO (08:47)
[2023-05-25] MEDS: amLODIPine 2.5 MG TAB PO (08:47)
[2023-05-25] MEDS: Potassium Chloride 10 MEQ CAPCR PO (08:48)
[2023-05-25] MEDS: Insulin Glargine 300 UNITS/3 ML PEN 25 UNITS SC (08:49)
--- NOTE | 2023-05-25 10:57 | W.NUTCONSULT ---
Date of service: 05/25/23 Time of Service: 10:57 Nutritional Consult ASSESSMENT: Received consult re: Routine Diabetes Education Pt is a 72yo male admitted for chest pain with a h/o CAD (CABG 2015), HLD, DMII, Hypothyroidsism, HTN and mild cognitive impairment. He is sitting in a chair at bedside upon visit. Pt with no known food allergies, no mu-ism food preferences. Current weight stable over the last year with a noted 2.6kg gain since 05/21/22. A1c on 05/04/23 was 6.0. Manages glucose at home with 75 units insulin Glargine BID and 1g Mewtformin BID. Ordered for glucose fingersticks AC and ordered for sensitive sliding scale insulin aspart tid, also 50units lantus bid. Pt ordered for heart healthy diet with normal consistencies currently. Diabetes education offered and pt decline at this time - feels he is doing well in this area. NUTRITIONAL DIAGNOSIS: do nutritional dx at this time INTERVENTION: Plan: modify diet order to include consistent CHO diet. MONITORING AND EVALUATION: Monitor intake and labs for significant changes which my warrant more aggressive nutrition intervention. Time Spent in Nutritional Counseling and Treatment: 15 minutes
[2023-05-25] MEDS: Regadenoson 0.4 MG/5 ML SYR IVP (13:22)
[2023-05-25] MEDS: Insulin Aspart 300 UNITS/3 ML PEN SC ×2 (14:48→17:46)
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
--- NOTE | 2023-05-25 17:02 | CHAPLAIN ---
I had a brief visit with Fredo. We know each other from previous admissions. 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
== END 2023-05-25 19:54 | disposition home or self-care (01) ==
LOC: ER 19:15 → ICU 05-25 06:22
PROVIDERS: Internal Medicine; Student in an Organized Health Care Education/Training Program; Admitting Provider General Practice; Emergency Provider Student in an Organized Health Care Education/Training Program; PCP Family Medicine; Visit Provider General Practice
DX: R07.89 Other chest pain; I25.10 Atherosclerotic heart disease of native coronary artery without angina pectoris; I77.810 Thoracic aortic ectasia; E11.22 Type 2 diabetes mellitus with diabetic chronic kidney disease; E78.5 Hyperlipidemia, unspecified; E66.9 Obesity, unspecified; Z95.1 Presence of aortocoronary bypass graft; I25.2 Old myocardial infarction; R29.6 Repeated falls; M70.61 Trochanteric bursitis, right hip; E03.9 Hypothyroidism, unspecified; G31.84 Mild cognitive impairment of uncertain or unknown etiology; H90.3 Sensorineural hearing loss, bilateral; M47.27 Other spondylosis with radiculopathy, lumbosacral region; M16.11 Unilateral primary osteoarthritis, right hip; Z87.891 Personal history of nicotine dependence; D50.9 Iron deficiency anemia, unspecified; N18.9 Chronic kidney disease, unspecified; I12.9 Hypertensive chronic kidney disease with stage 1 through stage 4 chronic kidney disease, or unspecified chronic kidney disease; K76.0 Fatty (change of) liver, not elsewhere classified; Z79.4 Long term (current) use of insulin
CPT/HCPCS: 00123; 36415; 36416; 78452; 80048; 80053; 80061; 82962; 93005; 93306; 96372; 99222; 99285; 71046; 83735; 84484; 85025; 85379; 85730; 93010; 93017; 99239; G0378; J2785; J3490

== ENCOUNTER → 2023-05-25 08:03 | Outpatient (BNVA) | payer MEDICARE, OTHER, SELFPAY | PROVIDERS: PCP Family Medicine; Referring Provider Family Medicine; Visit Provider Internal Medicine Cardiovascular Disease ==

== ENCOUNTER → 2023-06-10 08:25 | Outpatient (BNVA) | payer MEDICARE, OTHER, SELFPAY | PROVIDERS: PCP Family Medicine; Visit Provider Nurse Practitioner Gerontology | DX: N32.81 Overactive bladder (principal); N35.919 Unspecified urethral stricture, male, unspecified site | CPT/HCPCS: 51798; 99213 ==

== ENCOUNTER → 2023-07-15 12:51 | Outpatient (CLI) | payer MEDICARE, OTHER, SELFPAY ==
--- NOTE | 2023-07-15 12:45 | DI.RAD_ITS ---
Exam(s) XR LUMBAR SPINE COMP W FLEX/EX EXAM: XR LUMBAR SPINE COMP W FLEX/EX CLINICAL HISTORY: Low back pain after 2 recent falls, M54.50. TECHNIQUE: 2D digital imaging was performed. Seven views. Flexion and extension lateral views perf ormed in addition to the neutral lateral views. AP view was performed standing. The lateral and oblique views were performed supine since the patient was unable to stand for the entire exam. COMPARISON: CR XR LUMBAR SPINE COMPLETE from 10/07/2022 FINDINGS: BONES: Stable compression fracture of T12. there may be vertebral bodies are maintained in height. P rominent endplate osteophytes in the lower thoracic region.. Facet degenerative changes, greatest at L4-5 and L5-S1. DISKS: Severe narrowing of the L5-S1 disc space, unchanged from prior. The remaining intervertebral disc spaces are maintained. ALIGNMENT: Mild scoliosis at the thoracolumbar junction. No subluxation with flexion or extension. No spondylolisthesis. SOFT TISSUE: Aorta is calcified but normal in diameter. IMPRESSION: Stable T12 compression fracture. Stable degenerative changes. DATA REPOSITORY: RADIATION DOSE DELIVERED:
== END ==
PROVIDERS: PCP Family Medicine; Visit Provider Preventive Medicine Occupational Medicine
DX: M47.816 Spondylosis without myelopathy or radiculopathy, lumbar region (principal); M47.817 Spondylosis without myelopathy or radiculopathy, lumbosacral region; M48.54XA Collapsed vertebra, not elsewhere classified, thoracic region, initial encounter for fracture
CPT/HCPCS: 72114

== ENCOUNTER 2023-08-25 14:37 | Outpatient (REF) | payer MEDICARE, OTHER, SELFPAY ==
[2023-08-25 19:27] LABS: HCT 35.4 % (40.0-50.0); HGB 11.9 g/dL (13.5-17.5); MCH 29.2 pg (27.0-33.0); MCHC 33.6 % (32.0-36.0); MCV 87 fL (80-95); MPV 9.6 fL (8.0-11.0); Platelet Count 162 10^3/uL (130-400); RBC 4.08 10^6/uL (4.36-5.78); RDW 15.3 % (11.8-14.1); RDW-SD 48.6 fL; WBC 5.77 10^3/uL (4.4-10.8)
[2023-08-25 19:44] LABS: COMMENT (LAB VIEW ONLY) 70.49 mg/dL
[2023-08-25 19:47] LABS: Microalb ug/mg Crea 114.3 ug/mg Cr
[2023-08-25 20:10] LABS: Ferritin 57 ng/mL (26-388); Vitamin B12 416 pg/mL (193-986)
== END 2023-08-25 14:38 | disposition home or self-care (01) ==
LOC: NCHCN 14:37
PROVIDERS: PCP Family Medicine; Visit Provider Family Medicine
DX: E11.9 Type 2 diabetes mellitus without complications (principal); D64.9 Anemia, unspecified; R26.89 Other abnormalities of gait and mobility
CPT/HCPCS: 85027; 82043; 82570; 82607; 82728

== ENCOUNTER 2023-08-30 17:31 | Outpatient (REF) | payer MEDICARE, OTHER, SELFPAY ==
[2023-08-30 15:03] LABS: Source Nasal/Nares
[2023-08-30 17:07] LABS: COVID-19 PCR Negative (Negative)
== END 2023-08-30 17:32 | disposition home or self-care (01) ==
LOC: LBN 17:31
PROVIDERS: PCP Family Medicine; Visit Provider Nurse Practitioner Family
DX: J02.9 Acute pharyngitis, unspecified (principal); Z11.52 Encounter for screening for COVID-19
CPT/HCPCS: 87635; 87070

== ENCOUNTER 2023-09-09 08:03 | Emergency (ER) | payer MEDICARE, OTHER, SELFPAY ==
[2023-09-09 08:08] VITALS: BP 141/72; PULSE 102; RESP 18; TEMP 36.2; O2SAT 97
--- NOTE | 2023-09-09 08:15 | DI.CT_ITS ---
Exam(s) CT HEAD CERVICAL SPINE WO EXAM: CT HEAD CERVICAL SPINE WO CLINICAL HISTORY: fall, pain. TECHNIQUE: Imaging Protocol: Axial computed tomography images with coronal and sagittal reformatted images were created and reviewed COMPARISON: CT ORBITS WITH CONTRAST from 08/09/[address] WITHOUT CONTRAST from 08/09/2008 ORBITS WITH CONTRAST from 08/09/2008 MR MRI BRAIN - PITUITARY W/WO from 12/04/[address] HEAD CERVICAL SPINE WO from 05/21/2022 FINDINGS: Head CT Ventricles and Extra axial spaces: Normal in size and morphology for the patient's age. Hemorrhage: None. Cerebral parenchyma: No evidence of mass or acute infarct. Stable appearance asymmetry of the fronta l lobes. Stable enlargement of the pituitary Midline shift: None. Brainstem/Cerebellum: Normal. Calvarium: Right frontal craniotomy defect Visualized Paranasal sinuses/Mastoids: Mild mucosal thickening. Soft tissues: Unremarkable. Cervical Spine CT BONES: Vertebral body heights are maintained. Alignment is normal. There is no evidence of acute frac ture. Degenerative disc changes and facet degenerative changes are seen . SOFT TISSUES: No paraspinal hematoma. The airway appears intact. No pneumothorax is seen at the lung apices. IMPRESSION: Head CT: No acute abnormality. C-spine CT: Degenerative changes, no acute abnormality. RADIATION DOSE DELIVERED: Total DLP DATA REPOSITORY: All CT scans at this facility are submitted to the National Radiology Data Registry (NRDR) Dose Index Registry (DIR) with the [employer] (ACR). RADIATION OPTIMIZATION: All CT scans at this facility use at least one of these dose optimization te chniques: automated exposure control; mA and/or kV adjustment per patient size (includes targeted exa ms where dose is matched to clinical indication); or iterative reconstruction.
--- NOTE | 2023-09-09 08:18 | DI.CT_ITS ---
Exam(s) CT LUMBAR SPINE RECONS EXAM: CT LUMBAR SPINE RECONS CLINICAL HISTORY: pain s/p fall. TECHNIQUE: Imaging Protocol: Axial, coronal and sagittal reformatted images were reconstructed from the abdomen pelvic CT in bone algorithm.. CONTRAST MATERIAL: Intravenous: Omnipaque 350 Contrast volume:structured data in ml Oral: no COMPARISON: CT,NM,TMT NM MPI REST STRESS GRP from 05/25/[address] ABDOMEN PELVIS WO from 09/09/2023 FINDINGS: Bones: Stable mild T12 compression fracture. Stable mild scoliosis. No acute fractures. Bone islan d left ilium. Degenerative disc changes and facet degenerative changes. No large disc herniation. Disc space narrowing at L5-S1. Neural foraminal narrowing at L4-5 and L5-S1. Soft Tissues: The paraspinal soft tissues are unremarkable. IMPRESSION: Stable mild T12 compression fracture. No acute fractures. RADIATION DOSE DELIVERED: Total DLP DATA REPOSITORY: All CT scans at this facility are submitted to the National Radiology Data Registry (NRDR) Dose Index Registry (DIR) with the [employer] (ACR). RADIATION OPTIMIZATION: All CT scans at this facility use at least one of these dose optimization te chniques: automated exposure control; mA and/or kV adjustment per patient size (includes targeted exa ms where dose is matched to clinical indication); or iterative reconstruction.
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
[2023-09-09] MEDS: Normal Saline Flush 10 ML SYR IVP (08:35)
[2023-09-09] MEDS: Normal Saline 1,000 ML 1000 ML IV (08:35)
[2023-09-09 08:39] LABS: Abs Immature Grans 0.03 10^3/uL (0.0-0.06); Absolute Basophil Count 0.06 10^3/uL (0.0-0.2); Absolute Eosinophil Count 0.23 10^3/uL (0.0-0.7); Absolute Lymphocyte Count 1.05 10^3/uL (1.2-3.4); Absolute Monocyte Count 0.54 10^3/uL (0.1-0.8); Basophils % 0.8; Eosinophils % 3.2; HCT 34.6 % (40.0-50.0); HGB 11.7 g/dL (13.5-17.5); Immature Grans % 0.4; Lymphocytes % 14.8; MCH 29.1 pg (27.0-33.0); MCHC 33.8 % (32.0-36.0); MCV 86 fL (80-95); MPV 8.8 fL (8.0-11.0); Monocytes % 7.6; Neutrophils % 73.2; Platelet Count 183 10^3/uL (130-400); RBC 4.02 10^6/uL (4.36-5.78); RDW-SD 46.5 fL; WBC 7.11 10^3/uL (4.4-10.8)
[2023-09-09] MEDS: Acetaminophen 500 MG TAB 1000 MG PO (08:40)
--- NOTE | 2023-09-09 09:00 | DI.CT_ITS ---
Exam(s) CT ABDOMEN PELVIS WO EXAM: CT ABDOMEN PELVIS WO CLINICAL HISTORY: ?obstructive uropathy, elevated lft's as well. TECHNIQUE: Imaging Protocol: Axial computed tomography images with coronal and sagittal reformatted images were created and reviewed. Oral: no COMPARISON: CT CT ABDOMEN PELVIS W from 10/23/[address] LUMBAR SPINE RECONS from 09/09/2023 FINDINGS: Upper images somewhat limited by streak artifact due to patient arm position. Lung Bases: No acute findings. Liver: Normal density. No suspicious mass. Gallbladder and biliary tract: No gallbladder wall thickening no radiodense calculus or biliary dil ation. Pancreas: Normal density, no abnormal calcifications or inflammatory process. Spleen: Normal. Kidneys: Normal size, contour and axis. No radiodense stones or obstructive uropathy. No suspicious m asses seen. Stable right renal cyst. Adrenal glands: No masses seen. Lymph nodes: Within normal limits. Vasculature: Abdominal aorta non-dilated. Soft tissues: Unremarkable. Bladder: No wall thickening. No mass or calculi. Bowel: No obstruction or bowel wall thickening. Peritoneal cavity: No ascites, collection or mesenteric inflammatory response. Reproductive organs: Unremarkable. Bones: Stable mild T12 compression fracture. IMPRESSION: No acute abnormality in the abdomen or pelvis. No evidence of biliary dilatation. Liver unremarkabl e noncontrast appearance. RADIATION DOSE DELIVERED: Total DLP DATA REPOSITORY: All CT scans at this facility are submitted to the National Radiology Data Registry (NRDR) Dose Index Registry (DIR) with the [employer] (ACR). RADIATION OPTIMIZATION: All CT scans at this facility use at least one of these dose optimization te chniques: automated exposure control; mA and/or kV adjustment per patient size (includes targeted exa ms where dose is matched to clinical indication); or iterative reconstruction.
[2023-09-09 09:05] LABS: ALT 173 U/L (16-63); AST 220 U/L (15-37); Albumin 3.6 g/dL (3.4-5.0); Alkaline Phosphatase 85 U/L (46-116); Anion Gap 15.2 mmol/L (3-11); BUN 35 mg/dL (7-18); Bilirubin, Total 0.3 mg/dL (0.2-1.0); CO2 18.8 mmol/L (21.0-32.0); CREATININE 2.5 mg/dL (0.70-1.30); Calcium 8.7 mg/dL (8.5-10.1); Chloride 107 mmol/L (98-107); Estimated GFR 26.47 (mL/min/1.73m2); Glucose 194 mg/dL (74-106); Sodium 141 mmol/L (136-145); Total Protein 6.8 g/dL (6.4-8.2)
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
[2023-09-09 11:40] LABS: Bilirubin Negative (Negative); Blood Large (Negative); Clarity Clear (Clear); Glucose Negative (Negative); Ketones Negative (Negative); Leukocyte Esterase Negative (Negative); Nitrite Negative (Negative); Specific Gravity 1.015 (1.005-1.025); Urobilinogen 0.2 mg/dL (Up to 0.2); pH 5.5 (5-8)
[2023-09-09 11:50] LABS: Bacteria Rare HPF (Negative); C & S Indicated? No; Casts Negative LPF (Negative); Crystals Negative HPF (Negative); Epithelial Cells Rare HPF (Negative); Mucus Trace (Negative); WBC 0-2 HPF (0-5)
[2023-09-09] MEDS: traMADol 50 MG TAB PO (11:51)
== END 2023-09-09 12:07 | disposition home or self-care (01) ==
PROVIDERS: Emergency Provider Emergency Medicine; PCP Family Medicine
DX: S30.0XXA Contusion of lower back and pelvis, initial encounter (principal); N17.9 Acute kidney failure, unspecified; R79.89 Other specified abnormal findings of blood chemistry; E11.9 Type 2 diabetes mellitus without complications; Z79.84 Long term (current) use of oral hypoglycemic drugs; Z79.4 Long term (current) use of insulin; W06.XXXA Fall from bed, initial encounter; Y93.89 Activity, other specified; Y92.013 Bedroom of single-family (private) house as the place of occurrence of the external cause
CPT/HCPCS: 36415; 80053; 96360; 97162; 99285; 70450; 72125; 74176; 81003; 81015; 83735; 84443; 85025; 99284

== ENCOUNTER 2023-09-14 15:48 | Inpatient (IN) | payer MEDICARE, OTHER, SELFPAY ==
[2023-09-14] VITALS (58 sets, daily range): BP systolic 122–173; BP diastolic 42–83; PULSE 98–109; RESP 14–35; TEMP 36–37.5; O2SAT 94–98
--- NOTE | 2023-09-14 15:45 | RT.EKG_ITS ---
APPROVED REPORT Exam: Resting ECG Reason for Exam: fall Patient Location: E HR:99 bpm ECG Measurements Heart Rate 99 AXIS OR 137 P 55 QRSd 83 QRS 33 QT 331 T [id number] QTc 426 Conclusion Sinus rhythm...normal P axis, V-rate 60- 99 Nonspecific T abnormalities, diffuse leads...T <-0.10mV, ant/lat/inf Narrow complex normal sinus rhythm at a rate of 99. Normal axis. Intervals within normal limits. T wave flattening V3 through V6 and extending laterally and to leads I aVL and inferior leads. No ST segment elevations. Mild ST segment depression in V3. Compared to prior dated last year T wave flat tening appears similar well ST segment depression in V3 appears new.
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
--- NOTE | 2023-09-14 16:00 | DI.CT_ITS ---
Exam(s) CT LUMBAR SPINE WO EXAM: CT LUMBAR SPINE WO CLINICAL HISTORY: History of falling low back pain. TECHNIQUE: Imaging Protocol: Axial computed tomography images with coronal and sagittal reformatted images were created and reviewed COMPARISON: CT CT ABDOMEN PELVIS WO from 09/09/2023 FINDINGS: Bones: The last intervertebral disc space is designated the L5/S1 level for the numbering purpose of this examination. Stable mild T12 compression fracture. The remaining vertebral body heights are well maintained. Alignment is satisfactory. No acute fracture is seen. T12-L1: No disc herniations or bulges are present. L1-2: No disc herniations or bulges are present. L2-3: Mild disc bulging. L3-4: Mild disc bulging. L4-5: Loss of disc height. Small endplate osteophytes. Vacuum phenomenon. Right neural foraminal narrowing. L5-S1: Moderate to severe loss of disc height. Endplate osteophytes. Mild facet degenerative albrecht es. Bilateral neural foraminal narrowing. The visualized SI joints and sacrum are will maintained. Soft Tissues: The paraspinal soft tissues are unremarkable. Large quantity of stool noted in the r ectum. The urinary bladder is quite distended, not fully included on the exam. IMPRESSION: Stable T12 compression fracture. No acute abnormality. RADIATION DOSE DELIVERED: Total DLP Total DLP Total DLP DATA REPOSITORY: All CT scans at this facility are submitted to the National Radiology Data Registry (NRDR) Dose Index Registry (DIR) with the [employer] (A[employer]). RADIATION OPTIMIZATION: All CT scans at this facility use at least one of these dose optimization te chniques: automated exposure control; mA and/or kV adjustment per patient size (includes targeted exa ms where dose is matched to clinical indication); or iterative reconstruction.
--- NOTE | 2023-09-14 16:15 | DI.RAD_ITS ---
Exam(s) XR CHEST 1V IN DI DEPT EXAM: XR CHEST 1V IN DI DEPT CLINICAL HISTORY: History of falling TECHNIQUE: 2D digital imaging was performed. COMPARISON: CR XR CHEST 2V PA LATERAL from 05/24/2023 FINDINGS: LUNGS: Clear. No pleural abnormality seen. HEART: Normal size. Status post CABG. AORTA: Normal diameter. BONES: Unremarkable for age. Sternal wires. Soft tissues: Unremarkable. IMPRESSION: No acute findings. DATA REPOSITORY: RADIATION DOSE DELIVERED:
--- NOTE | 2023-09-14 16:15 | DI.RAD_ITS ---
Exam(s) XR KNEE RT 4V AP,LAT,JUNI,PAT EXAM: XR KNEE RT 4V AP,LAT,JUNI,PAT CLINICAL HISTORY: Right knee pain fall. TECHNIQUE: 2D digital imaging was performed. Three views. COMPARISON: CR,XR XR KNEE RT 3V AP,LAT,JUNI from 09/14/2021 FINDINGS: BONES: No acute fracture is present. No bony destructive lesion is seen. Small patellar enthesophytes . JOINTS: The joint spaces are maintained. Minimal periarticular spurring. The knee is normally align ed. No joint effusion is seen. SOFT TISSUE: Surgical clips medial soft tissues. IMPRESSION: Unremarkable radiographs of the right knee. DATA REPOSITORY: RADIATION DOSE DELIVERED:
--- NOTE | 2023-09-14 16:15 | DI.RAD_ITS ---
Exam(s) XR PELVIS AP EXAM: XR PELVIS AP CLINICAL HISTORY: History of falling. TECHNIQUE: 2D digital imaging was performed. Single AP view. COMPARISON: CT CT CHEST/ABD/PEL W from 05/21/2022 FINDINGS: BONES: No acute fracture is present. No bony destructive lesion is seen. JOINTS: No dislocation present. No joint space narrowing is present. SOFT TISSUE: Normal. IMPRESSION: No acute abnormality. DATA REPOSITORY: RADIATION DOSE DELIVERED:
[2023-09-14 16:41] LABS: Abs Immature Grans 0.05 10^3/uL (0.0-0.06); Absolute Basophil Count 0.05 10^3/uL (0.0-0.2); Absolute Eosinophil Count 0.19 10^3/uL (0.0-0.7); Absolute Lymphocyte Count 0.82 10^3/uL (1.2-3.4); Absolute Monocyte Count 0.87 10^3/uL (0.1-0.8); Absolute Neutrophil Count 8.97 10^3/uL (1.2-6.7); Basophils % 0.5; Eosinophils % 1.7; HCT 36.8 % (40.0-50.0); HGB 12.3 g/dL (13.5-17.5); Immature Grans % 0.5; Lymphocytes % 7.5; MCH 29.4 pg (27.0-33.0); MCHC 33.4 % (32.0-36.0); MCV 88 fL (80-95); MPV 9.2 fL (8.0-11.0); Monocytes % 7.9; Neutrophils % 81.9; Platelet Count 185 10^3/uL (130-400); RBC 4.19 10^6/uL (4.36-5.78); RDW 15.4 % (11.8-14.1); RDW-SD 48.6 fL; WBC 10.95 10^3/uL (4.4-10.8)
--- NOTE | 2023-09-14 17:00 | DI.CT_ITS ---
Exam(s) CT HEAD WO EXAM: CT HEAD WO CLINICAL HISTORY: History of falling. TECHNIQUE: Imaging Protocol: Axial computed tomography images with coronal and sagittal reformatted images were created and reviewed COMPARISON: CT CT HEAD CERVICAL SPINE WO from 05/21/[address] HEAD CERVICAL SPINE WO from 09/09/2023 FINDINGS: Ventricles and Extra axial spaces: Normal in size and morphology for the patient's age. Hemorrhage: None. Cerebral parenchyma: No evidence of acute infarct or mass. Stable appearance of asymmetry of the fron alida lobes with prominent CSF anterior to the left frontal lobe. Midline shift: None. Brainstem/Cerebellum: Normal. Calvarium: Normal. Visualized Paranasal sinuses:Clear. Mastoids: Clear. Soft Tissues: Unremarkable. ORBITS: Unremarkable. PITUITARY: Stable enlargement. IMPRESSION: No acute intracranial process. RADIATION DOSE DELIVERED: Total DLP DATA REPOSITORY: All CT scans at this facility are submitted to the National Radiology Data Registry (NRDR) Dose Index Registry (DIR) with the [employer] (ACR). RADIATION OPTIMIZATION: All CT scans at this facility use at least one of these dose optimization te chniques: automated exposure control; mA and/or kV adjustment per patient size (includes targeted exa ms where dose is matched to clinical indication); or iterative reconstruction.
[2023-09-14 17:05] LABS: ALT 320 U/L (16-63); AST 482 U/L (15-37); Albumin 3.7 g/dL (3.4-5.0); Alkaline Phosphatase 82 U/L (46-116); Anion Gap 11.5 mmol/L (3-11); BUN 40 mg/dL (7-18); Bilirubin, Total 0.4 mg/dL (0.2-1.0); CO2 21.5 mmol/L (21.0-32.0); CREATININE 3.1 mg/dL (0.70-1.30); Calcium 8.6 mg/dL (8.5-10.1); Chloride 103 mmol/L (98-107); Estimated GFR 20.32 (mL/min/1.73m2); Glucose 180 mg/dL (74-106); Magnesium 2.3 mg/dL (1.8-2.4); Potassium 4.7 mmol/L (3.5-5.1); Sodium 136 mmol/L (136-145); Troponin I < 50 ng/L (< or =60)
[2023-09-14] MEDS: Acetaminophen 500 MG TAB 1000 MG PO (17:32)
[2023-09-14] MEDS: Normal Saline 500 ML IV (17:33)
[2023-09-14] MEDS: Metoprolol CR 50 MG TABCR PO (18:24)
[2023-09-14 19:16] LABS: Bilirubin Negative (Negative); Blood Large (Negative); Clarity Clear (Clear); Glucose Negative (Negative); Ketones Negative (Negative); Leukocyte Esterase Negative (Negative); Nitrite Negative (Negative); Urobilinogen 0.2 mg/dL (Up to 0.2); pH 5.5 (5-8)
[2023-09-14 19:26] LABS: Bacteria Rare HPF (Negative); C & S Indicated? No; Crystals Moderate Amorphous HPF (Negative); Epithelial Cells Negative HPF (Negative); Mucus Trace (Negative); WBC 0-2 HPF (0-5)
[2023-09-14 19:50] LABS: Troponin I < 50 ng/L (< or =60)
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
--- NOTE | 2023-09-14 20:42 | W.PC.ACHO ---
Registration Status: REG ER Primary Language: Preferred Language: Turkmen ED Information & Data Chief Complaint Fall/Non TraumaCriteria 09/14/23 18:37 Chief Complaint Fall/Non TraumaCriteria 09/14/23 15:58 Triage Note Has fallen twice today, 09/14/23 15:45 increasing leg weakness over the past couple weeks despite using walker. Denies LOC; c/o pain in back from one of the falls as well as c/o weakness and legs giving way. Medical / Surgical History (Last Reviewed 07/15/23 @ 11:50 by Vaishnavi English) Lipoma of lower extremity Alcohol abuse Tinea pedis Dementia History of subdural hematoma Hip joint pain Callus of foot Chronic kidney disease Traumatic brain injury Sleep apnea Pain, joint, shoulder region, left Decreased hearing of both ears At risk for falling Vitamin B12 deficiency Ataxia Foot pain Peripheral neuropathy Left arm pain Left cervical radiculopathy Cecal volvulus Shoulder pain Viral URI with cough UTI (urinary tract infection) UTI (urinary tract infection) Rhinorrhea Knee pain, right Rathke's pouch cyst Hx of traumatic brain injury Migraine headache Recurrent UTI Anemia, iron deficiency Volvulus Constipation, chronic Mild dementia Pain in joint of right foot History of rib fracture Rib pain on left side Left rib fracture Contusion of right hip Head trauma Right sided weakness Urethral stricture (08/20/15) Postnasal drip (05/13/15) Fatty liver Vitamin D deficiency GERD (gastroesophageal reflux disease) H/O alcohol abuse MRSA infection Depression Colon polyps DM type 2 (diabetes mellitus, type 2) Urethral stricture Chronic low back pain Gout Diastasis recti Obstructive sleep apnea Headaches due to 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 Hx of deep venous thrombosis (Last Reviewed 07/15/23 @ 11:51 by Vaishnavi English) History of cardiac cath History of colonoscopy with polypectomy (~09/24/22) facial lesion removal electroconvulsive therapy Repair of umbilical hernia Repair of inguinal hernia (08/05/17) Colonoscopy - MAC Extraction of cataract Coronary Artery Bypass Gaft (CABG) Appendectomy (06/01/16) Most Recent Vital Signs Temperature 36.7 C 09/14/23 15:45 Temperature Source Tympanic 09/14/23 15:45 Pulse 99 H 09/14/23 20:31 Pulse 100 H 09/14/23 20:31 Respiratory Rate 20 09/14/23 20:31 Respiratory Effort Normal 09/14/23 18:37 Blood Pressure 127/48 L 09/14/23 20:31 Blood Pressure Mean 75 09/14/23 20:31 Blood Pressure Position Sitting 09/14/23 15:45 Pulse Oximetry 97 09/14/23 20:31 Oxygen Delivery Method Room Air 09/14/23 15:45 Oxygen Flow Rate 0 09/14/23 15:45 Pain Level 8 09/14/23 17:32 Comment denies APAP/ibu today 09/14/23 15:45 Allergies amoxicillin Allergy (Severe, Verified 09/09/23 08:12) breathing difficuty and vomiting Penicillins Allergy (Intermediate, Verified 09/09/23 08:12) Skin Rash sulfamethoxazole [From Bactrim] Allergy (Intermediate, Verified 09/09/23 08:12) Skin Rash trimethoprim [From Bactrim] Allergy (Intermediate, Verified 09/09/23 08:12) Skin Rash oxycodone HCl [From Percocet] Adverse Reaction (Severe, Verified 09/09/23 08:12) Contraindicated stares into space oxycodone terephthalate [From Percodan] Adverse Reaction (Severe, Verified 09/09/23 08:12) Contraindicated stares into space Precautions Isolation Standard precaution 09/14/23 18:37 IV IV Catheter Type [Left Saline Lock Antecubital] IV Catheter Gauge [Left 20 Antecubital] Diet Orders Category Date Time Status Diabetes Consistent CHO/Heart Healthy [DIET] Nutrition 09/15/23 Breakfast Ordered Diagnostics 09/14/23 09/14/23 09/14/23 Range/Units 20:25 20:17 19:16 WBC (4.4-10.8) 10^3/uL RBC (4.36-5.78) 10^6/uL Hgb (13.5-17.5) g/dL Hct (40.0-50.0) % MCV (80-95) fL MCH (27.0-33.0) pg MCHC (32.0-36.0) % RDW (11.8-14.1) % Plt Count (130-400) 10^3/uL MPV (8.0-11.0) fL Immature Gran % Neutrophils % Lymphocytes % Monocytes % Eosinophils % Basophils % Nucleated RBC % (0.0-0.3) % Absolute Neutrophils (1.2-6.7) 10^3/uL Absolute Lymphocytes (1.2-3.4) 10^3/uL Absolute Monocytes (0.1-0.8) 10^3/uL Absolute Eosinophils (0.0-0.7) 10^3/uL Absolute Basophils (0.0-0.2) 10^3/uL PT Pending INR Pending Sodium (136-145) mmol/L Potassium (3.5-5.1) mmol/L Chloride (98-107) mmol/L Carbon Dioxide (21.0-32.0) mmol/L Anion Gap (3-11) mmol/L BUN (7-18) mg/dL Creatinine (0.70-1.30) mg/dL Est GFR (CKD-EPI 2020) (mL/min/1.73m2) Glucose (74-106) mg/dL Hemoglobin A1c Pending Calcium (8.5-10.1) mg/dL Magnesium (1.8-2.4) mg/dL Total Bilirubin (0.2-1.0) mg/dL AST (15-37) U/L ALT (16-63) U/L Alkaline Phosphatase (46-116) U/L Creatine Kinase Pending Troponin I < 50 (< or =60) ng/L Total Protein (6.4-8.2) g/dL Albumin (3.4-5.0) g/dL Urine Color (Yellow) Urine Clarity (Clear) Urine pH (5-8) Ur Specific Parker (1.005-1.025) Urine Protein (Neg-Trace) mg/dL Urine Ketones (Negative) mg/dL Urine Blood (Negative) Urine Nitrite (Negative) Urine Bilirubin (Negative) Urine Urobilinogen (Up to 0.2) mg/dL Ur Leukocyte Esterase (Negative) Urine RBC (0-2) HPF Urine WBC (0-5) HPF Ur Epithelial Cells (Negative) HPF Urine Crystals (Negative) HPF Urine Bacteria (Negative) HPF Urine Mucus (Negative) Ur Culture Indicated? Urine Glucose (Negative) mg/dL Acetaminophen Pending 09/14/23 09/14/23 Range/Units 19:10 16:30 WBC 10.95 H (4.4-10.8) 10^3/uL RBC 4.19 L (4.36-5.78) 10^6/uL Hgb 12.3 L (13.5-17.5) g/dL Hct 36.8 L (40.0-50.0) % MCV 88 (80-95) fL MCH 29.4 (27.0-33.0) pg MCHC 33.4 (32.0-36.0) % RDW 15.4 H (11.8-14.1) % Plt Count 185 (130-400) 10^3/uL MPV 9.2 (8.0-11.0) fL Immature Gran % 0.5 Neutrophils % 81.9 Lymphocytes % 7.5 Monocytes % 7.9 Eosinophils % 1.7 Basophils % 0.5 Nucleated RBC % 0.0 (0.0-0.3) % Absolute Neutrophils 8.97 H (1.2-6.7) 10^3/uL Absolute Lymphocytes 0.82 L (1.2-3.4) 10^3/uL Absolute Monocytes 0.87 H (0.1-0.8) 10^3/uL Absolute Eosinophils 0.19 (0.0-0.7) 10^3/uL Absolute Basophils 0.05 (0.0-0.2) 10^3/uL PT INR Sodium 136 (136-145) mmol/L Potassium 4.7 (3.5-5.1) mmol/L Chloride 103 (98-107) mmol/L Carbon Dioxide 21.5 (21.0-32.0) mmol/L Anion Gap 11.5 H (3-11) mmol/L BUN 40 H (7-18) mg/dL Creatinine 3.1 H (0.70-1.30) mg/dL Est GFR (CKD-EPI 2020) 20.32 (mL/min/1.73m2) Glucose 180 H (74-106) mg/dL Hemoglobin A1c Calcium 8.6 (8.5-10.1) mg/dL Magnesium 2.3 (1.8-2.4) mg/dL Total Bilirubin 0.4 (0.2-1.0) mg/dL AST 482 H (15-37) U/L ALT 320 H (16-63) U/L Alkaline Phosphatase 82 (46-116) U/L Creatine Kinase Troponin I < 50 (< or =60) ng/L Total Protein 7.0 (6.4-8.2) g/dL Albumin 3.7 (3.4-5.0) g/dL Urine Color Yellow (Yellow) Urine Clarity Clear (Clear) Urine pH 5.5 (5-8) Ur Specific Parker 1.010 (1.005-1.025) Urine Protein 100 H (Neg-Trace) mg/dL Urine Ketones Negative (Negative) mg/dL Urine Blood Large H (Negative) Urine Nitrite Negative (Negative) Urine Bilirubin Negative (Negative) Urine Urobilinogen 0.2 (Up to 0.2) mg/dL Ur Leukocyte Esterase Negative (Negative) Urine RBC 3-5 H (0-2) HPF Urine WBC 0-2 (0-5) HPF Ur Epithelial Cells Negative (Negative) HPF Urine Crystals Moderate Amorphous (Negative) HPF Urine Bacteria Rare (Negative) HPF Urine Mucus Trace (Negative) Ur Culture Indicated? No Urine Glucose Negative (Negative) mg/dL Acetaminophen Intake and Output - 24 Hour Total 09/14/23 15:42 thru 09/14/23 18:46 Intake Total 510 Balance 510 Weight 90.718 kg Intake: IV 510 Falls Risk Assessment History of Falls Admit Due to Fall 09/14/23 18:37 Contributing Factors Unstable,Impairments 09/14/23 18:37 Ambulatory Aids Uses ambulatory device + 09/14/23 18:37 Tubes/Lines With any additional score 09/14/23 18:37 Gait Evaluation W/any additional score 09/14/23 18:37 Cognition No cognitive impairment 09/14/23 18:37 Fall Total Score 101 09/14/23 18:37 Level of Risk Maximum Risk 09/14/23 18:37 Problems (Last Reviewed 07/15/23 @ 11:50 by Vaishnavi English) Elevated LFTs (Acute) BABS (acute kidney injury) (Acute) Abrasion of right knee (Acute) Microcytic anemia (Acute) Immunization, tetanus-diphtheria (Acute) Hx of falling (Acute) v v v v v v v v v Sending and/or Receiving Nurses: Please use comment section below to note any information pertinent to the patient hand-off not included above. Information / Comments: Report received from: Nemo LANGSTON all ?'s answered no loc and neg head & lumbar spine scan.
[2023-09-14 21:00] LABS: Prothrombin Time 10.4 sec (9.1-11.1)
[2023-09-14 21:01] LABS: Creatine Kinase > 10000 U/L (39-308)
[2023-09-14 21:10] LABS: Acetaminophen 2 ug/mL (10-30)
[2023-09-14 21:14] LABS: Hemoglobin A1C 6.5 % (<5.7)
[2023-09-14] MEDS: Insulin Glargine 300 UNITS/3 ML PEN 50 UNITS SC (22:28)
[2023-09-14] MEDS: QUEtiapine 300 MG TAB PO (22:31)
[2023-09-14] MEDS: Enoxaparin 30 MG/0.3 ML SYR SC (22:31)
[2023-09-14] MEDS: Docusate Sodium 100 MG CAP PO (22:31)
[2023-09-14] MEDS: traMADol 50 MG TAB PO (22:32)
[2023-09-14] MEDS: Isosorbide Mononitrate 30 MG TABCR 90 MG PO (22:33)
[2023-09-14] MEDS: Pregabalin 100 MG CAP PO (22:34)
[2023-09-14] MEDS: Normal Saline 1,000 ML 200 ML IV (22:35)
[2023-09-15] VITALS (30 sets, daily range): BP systolic 44–149; BP diastolic 22–111; PULSE 85–103; RESP 12–22; TEMP 36.7–37.4; O2SAT 94–99
[2023-09-15 01:08] LABS: Anion Gap 13.9 mmol/L (3-11); BUN 38 mg/dL (7-18); CO2 19.1 mmol/L (21.0-32.0); CREATININE 2.9 mg/dL (0.70-1.30); Chloride 107 mmol/L (98-107); Estimated GFR 22.01 (mL/min/1.73m2); Glucose 180 mg/dL (74-106); Potassium 3.9 mmol/L (3.5-5.1); Sodium 140 mmol/L (136-145)
[2023-09-15] MEDS: Normal Saline 1,000 ML 200 ML IV ×3 (03:35→13:46)
[2023-09-15] MEDS: Levothyroxine 50 MCG TAB PO (05:38)
[2023-09-15 07:20] LABS: Abs Immature Grans 0.03 10^3/uL (0.0-0.06); Absolute Basophil Count 0.05 10^3/uL (0.0-0.2); Absolute Lymphocyte Count 1.02 10^3/uL (1.2-3.4); Absolute Monocyte Count 0.79 10^3/uL (0.1-0.8); Absolute Neutrophil Count 4.63 10^3/uL (1.2-6.7); Basophils % 0.7; HCT 32.2 % (40.0-50.0); HGB 10.7 g/dL (13.5-17.5); Immature Grans % 0.4; Lymphocytes % 15.2; MCH 29.4 pg (27.0-33.0); MCHC 33.2 % (32.0-36.0); MCV 89 fL (80-95); MPV 9.3 fL (8.0-11.0); Monocytes % 11.8; Neutrophils % 68.9; Platelet Count 164 10^3/uL (130-400); RBC 3.64 10^6/uL (4.36-5.78); RDW 15.1 % (11.8-14.1); RDW-SD 48.4 fL; WBC 6.72 10^3/uL (4.4-10.8)
[2023-09-15 07:37] LABS: ESR 15 mm/hr (0-20)
[2023-09-15 07:50] LABS: ALT 268 U/L (16-63); AST 373 U/L (15-37); Albumin 2.9 g/dL (3.4-5.0); Alkaline Phosphatase 81 U/L (46-116); Anion Gap 13.9 mmol/L (3-11); BUN 40 mg/dL (7-18); Bilirubin, Total 0.3 mg/dL (0.2-1.0); CO2 18.1 mmol/L (21.0-32.0); CREATININE 2.9 mg/dL (0.70-1.30); Calcium 7.7 mg/dL (8.5-10.1); Chloride 109 mmol/L (98-107); Estimated GFR 22.01 (mL/min/1.73m2); Glucose 146 mg/dL (74-106); Potassium 4.2 mmol/L (3.5-5.1); Sodium 141 mmol/L (136-145); Total Protein 5.9 g/dL (6.4-8.2)
[2023-09-15 08:18] LABS: Creatine Kinase > 10000 U/L (39-308)
[2023-09-15 08:38] LABS: Lab Add On Test DONE
[2023-09-15 09:11] LABS: BE (Venous) -12 mmol/L (-2-3); HCO3 (Venous) 15 mmol/L (23-28); O2 Sat (Venous) 91 %; TCO2 (Venous) 15 mmol/L (24-29); pCO2 (Venous) 35 mmHg (41-51); pH (Venous) 7.25 (7.31-7.41); pO2 (Venous) 62 mmHg
[2023-09-15 09:19] LABS: Bilirubin Negative (Negative); Blood Large (Negative); Clarity Clear (Clear); Glucose Negative (Negative); Ketones Negative (Negative); Leukocyte Esterase Negative (Negative); Nitrite Negative (Negative); Specific Gravity <= 1.005 (1.005-1.025); Urobilinogen 0.2 mg/dL (Up to 0.2); pH 5.5 (5-8)
[2023-09-15] MEDS: Polyethylene Glycol 3350 17 GM PACKET PO (09:40)
[2023-09-15] MEDS: Mirabegron 25 MG TABCR PO (09:40)
[2023-09-15] MEDS: Finasteride 5 MG TAB PO (09:40)
[2023-09-15] MEDS: Citalopram 20 MG TAB 10 MG PO (09:40)
[2023-09-15] MEDS: amLODIPine 2.5 MG TAB PO (09:41)
[2023-09-15] MEDS: Topiramate 50 MG TAB PO (09:41)
[2023-09-15] MEDS: Pregabalin 100 MG CAP PO (09:42)
[2023-09-15] MEDS: SODIUM BICARBONATE 150 MEQ in DEXTROSE 5%-WATER 850 ML 200 MEQ IV ×3 (09:42→23:06)
[2023-09-15 09:45] LABS: Bacteria Few HPF (Negative); C & S Indicated? No/Sq. Contamination; Casts 0-2 Coarse Granular LPF (Negative); Crystals Few Amorphous HPF (Negative); Epithelial Cells Many HPF (Negative); Mucus Negative (Negative); RBC >50 HPF (0-2); WBC 0-2 HPF (0-5)
[2023-09-15] MEDS: Insulin Glargine 300 UNITS/3 ML PEN 50 UNITS SC ×2 (09:57→19:59)
[2023-09-15] MEDS: Insulin Aspart 300 UNITS/3 ML PEN SC ×3 (09:58→16:58)
[2023-09-15 10:04] LABS: BE (Venous) -11 mmol/L (-2-3); HCO3 (Venous) 17 mmol/L (23-28); O2 Sat (Venous) 85 %; TCO2 (Venous) 16 mmol/L (24-29); pCO2 (Venous) 36 mmHg (41-51); pH (Venous) 7.27 (7.31-7.41); pO2 (Venous) 49 mmHg
[2023-09-15] MEDS: Pantoprazole 40 MG TABCR PO (10:07)
--- NOTE | 2023-09-15 10:07 | PDOC.CMIN ---
Date of service: 09/15/23 Time of Service: 10:07 Care Management Initial Assmt Initial Assessment REASON FOR HOSPITALIZATION:: Weakness, BABS, Transaminitis PREVIOUS FUNCTIONAL STATUS/SOCIAL/FAMILY SUPPORTS:: Fredo lives in [facility] with his of more than 50 years, Brittany. Their adult son, Andrew also lives at home with them. Fredo is retired and independent with ADL's. He uses a walker and a quad cane for ambulation and has a urinal. Fredo does not receive any services at home but his son and provide a lot of support. He no longer drives but his and son provide transportation. CURRENT FUNCTIONAL STATUS:: Fredo remains in the ICU, awaiting PT consult to inform discharge planning considerations. PT was working with Fredo in the afternoon, when CM attempted consult, continuing to follow. ADVANCE DIRECTIVES:: On file. Brittany [facility] Has patient been provided with info about the portal/API?: No Did the patient sign up for the portal?: No CODE STATUS:: Full Code INSURANCE COVERAGE / FINANCIAL ISSUES:: MCR A&B, [facility] Supplement PRIMARY CARE PHYSICIAN:: Alisa Ramirez POTENTIAL DISCHARGE NEEDS:: Follow up appointments. PATIENT/FAMILY EDUCATION NEEDS:: Review discharge instructions, discuss Ask Me Three. ANTICIPATED BARRIERS TO DISCHARGE:: None identified. TRANSPORTATION:: Via private vehicle with family. PLAN:: Fredo will return home when ready per MD. He will have new home health orders for PT and follow up with his PCP and plan of care. CM continues to follow. PFSH All Active Problems (Updated 09/15/23 @ 10:39 by Unruly Eller MD) Elevated CK (Acute) Discharge planning issues (Acute) DVT prophylaxis (Acute) Rhabdomyolysis (Acute) Elevated LFTs (Acute) BABS (acute kidney injury) (Acute) Abrasion of right knee (Acute) Microcytic anemia (Acute) Immunization, tetanus-diphtheria (Acute) Hx of falling (Acute) Blunt head trauma (Acute) Elevated LFTs (Acute) Lumbar contusion (Acute) BABS (acute kidney injury) (Acute) Frequent falls (Acute) Acute serous otitis media of left ear (Acute) Low back pain (Acute) Chest pain (Acute) Tendinitis involving hip abductors (Acute) Poor balance (Acute) Frequent falls (Acute) Trochanteric bursitis, right hip (Acute) DEPO MEDROL 03/15/23 Coronary artery disease (Chronic) Hyperlipidemia (Chronic) Diabetes mellitus type 2 in obese (Chronic) Thoracic spondylosis without myelopathy (Chronic) Hyperlipidemia (Acute) Hypothyroidism (Chronic) Hypertension (Chronic) Deviated nasal septum (Chronic 08/05/15) 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) Hypertrophy of nasal turbinates (Chronic 08/05/15) Mild cognitive impairment (Chronic 01/31/18) Sensorineural hearing loss, asymmetrical (Chronic 05/12/13) Sensory hearing loss, bilateral (Chronic 04/09/14) Atypical chest pain (Acute) Musculoskeletal; Negative NPI 04/29/2018 Chronic rhinitis (Chronic) Lumbosacral spondylosis without myelopathy (Acute) Lumbar radiculitis (Acute) Lower urinary tract symptoms (Chronic) Pituitary abnormality (Acute) Cubital tunnel syndrome on right (Acute) Hand weakness (Acute) Neck pain (Acute) Chest pain (Acute) Chronic subdural hematoma (Chronic) Arthritis of right hip (Acute) 80 mg depo-medrol injection under u/s: 05/20/2023 Chest wall muscle strain (Acute) Unstable angina (Acute) Chest pain (Acute) Compression fracture of lumbar vertebra (Acute) Lumbar radiculopathy (Acute) Nail dystrophy (Acute) Chest pain (Acute) Hammertoe (Acute) Tubular adenoma of colon (Acute ~09/24/22) Hyperplastic colon polyp (Acute ~09/24/22) Shoulder pain, left (Acute) Partial tear of left rotator cuff (Acute) Hammertoe of left foot (Acute) Hammertoe of right foot (Acute) Onychomycosis (Acute) Medical History Lipoma of lower extremity left foot Alcohol abuse Tinea pedis Dementia History of subdural hematoma Hip joint pain Callus of foot Chronic kidney disease Traumatic brain injury Sleep apnea Pain, joint, shoulder region, left Decreased hearing of both ears At risk for falling Vitamin B12 deficiency Ataxia Foot pain Peripheral neuropathy Left arm pain Left cervical radiculopathy Cecal volvulus Shoulder pain Low back pain Viral URI with cough UTI (urinary tract infection) UTI (urinary tract infection) Rhinorrhea Knee pain, right Rathke's pouch cyst Hx of traumatic brain injury 1968-- states he's had 4 brain bleeds 2017 Migraine headache Recurrent UTI Anemia, iron deficiency Volvulus of cecum Constipation, chronic Mild dementia Pain in joint of right foot History of rib fracture Rib pain on left side Left rib fracture Contusion of right hip Head trauma Right sided weakness Urethral stricture (08/20/15) Postnasal drip (05/13/15) Fatty liver Vitamin D deficiency GERD (gastroesophageal reflux disease) H/O alcohol abuse pt. denies MRSA infection Depression Colon polyps DM type 2 (diabetes mellitus, type 2) Urethral stricture Chronic low back pain Gout Diastasis recti Obstructive sleep apnea Headaches due to 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 Hx of deep venous thrombosis Surgical History History of cardiac cath History of colonoscopy with polypectomy (~09/24/22) facial lesion removal electroconvulsive therapy Repair of umbilical hernia Repair of inguinal hernia (08/05/17) right inguinal hernia repair by Dr Arroyo on 08/05/17 Colonoscopy - MAC 2009-5year f/u Extraction of cataract 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 Appendectomy (06/01/16) Social History Smoking/Tobacco Use Status: Former Tobacco Use tobacco type: cigarettes Quit Date: 06/21/80 Pack-years: 5 Smoking risk assessment performed?: Yes Alcohol Intake: former Drug use: Never Substance use type: does not use Household members: spouse Housing: house Pets and animals: Yes Pets and animals: dog(s) Current gender identity: male Do you feel safe at home: Yes Do you feel safe in your relationship?: Yes SDOH(Care Management) Screening Will the Patient Participate in the Screening?: Yes Do you worry about having a steady place to live?: no In the past 12 months, have you had to go without electric, gas, oil or water in your home?: no Have you or anyone in your house had to go without enough food to eat?: no Has lack of transportation kept you from medical appointments or from doing things needed for daily living?: no Has anyone in your support network made you feel unsafe for any reason?: no
--- NOTE | 2023-09-15 10:10 | PGE_ITS ---
Date of Service Date of service: 09/15/23 Time of Service: 10:10 Assessment and Plan Assessment and plan (1) Rhabdomyolysis: Status: Acute Assessment and plan: Unclear as to the etiology although the patient seems to think that he was on a statin possibly Lipitor. I have asked the pharmacist to call his pharmacy at [facility] in [place] to confirm whether he has been on a statin recently. In the interim were going to aggressively treat him with IV fluid hydration. Although he has a cardiac history of previous CABG it is reassuring that his most recent workup within the last 3 months was normal and showed no cardiomyopathy and no ischemia. I have added sodium bicarbonate to his IV fluids in an attempt to alkalinize his urine we will monitor his urine pH every 2 hours with a goal to get his urinary pH above 6.5 is currently 5.5. We will also monitor his calcium levels and if there is a precipitous drop in his calcium we will cease further bicarbonate therapy. If there is no improvement in his urinary pH over the next 4 hours then we will stop the bicarbonate drip. We will also monitor his VBG every 2 hours to make sure that we do not make him alkalemia. The fact that he is not gone and only direct renal failure is reassuring and hopefully over time his rhabdomyolysis will resolve. If he goes into oliguric renal failure then he would need transfer to tertiary care center for hemodialysis. However his potassium levels are normal and he is making urine. Critical care time spent interviewing and examining the patient, reviewing studies, discussing case with patient's nurse and consulting physicians was 60 minutes Qualifiers: Rhabdomyolysis type: non-traumatic Qualified Code(s): M62.82 - Rhabdomyolysis (2) Elevated LFTs: Status: Acute Assessment and plan: likely d/t whatever offending agent caused his rhabdomyolysis (3) BABS (acute kidney injury): Status: Acute Assessment and plan: close monitoring of urine output, serial BMP, aggressive hydration. (4) Microcytic anemia: Status: Acute Assessment and plan: stable. will monitor and workup w/ iron levels, folate, B12 levels (5) Frequent falls: Status: Acute Assessment and plan: likely d/t his rhabdomyolysis; once he recovers from his rhabdo then can resume P.T. (he had been referred to P.T. as outpatient from his recent ED visit) (6) Diabetes mellitus type 2 in obese: Status: Chronic Assessment and plan: hold Victoza, cover w/ basal/bolus insulin sliding scale (7) CAD (coronary artery disease): Status: None Assessment and plan: stable, contnue current meds (Ranexa, Toprol XL, amlodipine Qualifiers: Coronary Disease-Associated Artery/Lesion type: [place] artery [place] vs. transplanted heart: [place] heart Associated angina: with unspecified angina Qualified Code(s): I25.119 - Atherosclerotic heart disease of [place] coronary artery with unspecified angina pectoris (8) DVT prophylaxis: Status: Acute Assessment and plan: Renally dosed LMWH (9) Discharge planning issues: Status: Acute Assessment and plan: Patient remains a full code requires continued hospitalization until recovery of his renal function Subjective Subjective Interval history since last seen: 73-year-old white male with history of type 2 diabetes mellitus treated with insulin and Victoza with complications including diabetic peripheral neuropathy treated with pregabalin and also history of coronary artery disease with previous CABG in 2016 was last hospitalization for chest pain was from 05/24/2023 to 05/25/2023 in which she is ruled out for an acute ischemic event had a negative stress MPI and had an echocardiogram that demonstrated normal left ventricular ejection fraction of 50 to 55% with no wall motion abnormalities. Mr. Osman now presented to the emergency department yesterday with about a 1 month history of progressive bilateral leg pain difficulty walking and frequent falling down at home. He was found to be in acute renal failure secondary to rhabdomyolysis. It is unclear exactly what his baseline creatinine is. Does appear to have some chronic renal insufficiency. With his last creatinine during his hospitalization in May at 1.6 it appears over the past year his baseline creatinine has been around this level however as recent as 09/09/2023 when he presented to ER with symptoms of leg weakness he was found to have a creatinine of 2.5. On presentation last night his creatinine was up to 3.1 his BUN was 40 and CK level was greater than 10,000. Because of his history of falling he had a CT scan of his head that showed no acute intracranial process. He also underwent abdomen and pelvic CT which showed normal kidney size and contour no radiodense stones or obstructive uropathy no suspicious masses has a stable right renal cyst. CBC demonstrates a stable chronic anemia with a hemoglobin around 11 g. VBG last night showed a pH of 7.25 with a pCO2 of 35 and his bicarbonate level on his chemistry yesterday afternoon was low end of normal at 21.5 and is since dropped down to 18. His liver transaminases are also elevated with an AST of 373 and ALT of 268 with normal alkaline phosphatase of 81 normal total bilirubin of 0.3. Patient was admitted to the intensive care unit where he was started on aggressive IV fluids including normal saline at 200 mL an hour. Coello was not placed but he had an external condom catheter placed however this morning I instructed nursing to insert Coello catheter so we will keep an accurate intake and output. Serum calcium last night was 8.0 and is since dropped to 7.8 however when corrected for his low albumin corrects to be within normal range. Exam Narrative Exam Narrative: Mr. Osman is alert and oriented x 3 no acute respiratory distress Neck is supple no JVD Lungs are clear to auscultation Heart is regular rate and rhythm no appreciable murmur rub Abdomen is obese soft nondistended nontender no bruits no palpable masses no organomegaly Lower extremities without peripheral cyanosis or edema Coello catheter is draining dark lemonade colored urine without sediment Objective Last Vital Signs Temp 37.5 C 09/14/23 23:00 Pulse 85 09/15/23 07:37 Resp 12 09/15/23 07:37 BP 92/60 L 09/15/23 07:37 Pulse Ox 94 09/15/23 07:37 Laboratory Results - last 24 hr 09/14/23 09/14/23 09/14/23 16:30 19:10 19:16 WBC 10.95 H RBC 4.19 L Hgb 12.3 L Hct 36.8 L MCV 88 MCH 29.4 MCHC 33.4 RDW 15.4 H Plt Count 185 MPV 9.2 Immature Gran % 0.5 Neutrophils % 81.9 Lymphocytes % 7.5 Monocytes % 7.9 Eosinophils % 1.7 Basophils % 0.5 Nucleated RBC % 0.0 Absolute Neutrophils 8.97 H Absolute Lymphocytes 0.82 L Absolute Monocytes 0.87 H Absolute Eosinophils 0.19 Absolute Basophils 0.05 ESR PT INR VBG pH VBG pCO2 VBG pO2 VBG HCO3 VBG Total CO2 VBG O2 Saturation VBG Base Excess Sodium 136 Potassium 4.7 Chloride 103 Carbon Dioxide 21.5 Anion Gap 11.5 H BUN 40 H Creatinine 3.1 H Est GFR (CKD-EPI 2020) 20.32 Glucose 180 H Hemoglobin A1c 6.5 H Calcium 8.6 Magnesium 2.3 Total Bilirubin 0.4 AST 482 H ALT 320 H Alkaline Phosphatase 82 Creatine Kinase > 30377 H Troponin I < 50 < 50 Total Protein 7.0 Albumin 3.7 Urine Color Yellow Urine Clarity Clear Urine pH 5.5 Ur Specific [place] 1.010 Urine Protein 100 H Urine Ketones Negative Urine Blood Large H Urine Nitrite Negative Urine Bilirubin Negative Urine Urobilinogen 0.2 Ur Leukocyte Esterase Negative Urine RBC 3-5 H Urine WBC 0-2 Ur Epithelial Cells Negative Urine Crystals Moderate Amorphous Urine Bacteria Rare Urine Casts Urine Mucus Trace Ur Culture Indicated? No Urine Glucose Negative Acetaminophen Add-On Test Request 09/14/23 09/15/23 09/15/23 20:44 00:35 07:00 WBC 6.72 RBC 3.64 L Hgb 10.7 L Hct 32.2 L MCV 89 MCH 29.4 MCHC 33.2 RDW 15.1 H Plt Count 164 MPV 9.3 Immature Gran % 0.4 Neutrophils % 68.9 Lymphocytes % 15.2 Monocytes % 11.8 Eosinophils % 3.0 Basophils % 0.7 Nucleated RBC % 0.0 Absolute Neutrophils 4.63 Absolute Lymphocytes 1.02 L Absolute Monocytes 0.79 Absolute Eosinophils 0.20 Absolute Basophils 0.05 ESR 15 PT 10.4 INR 1.0 VBG pH VBG pCO2 VBG pO2 VBG HCO3 VBG Total CO2 VBG O2 Saturation VBG Base Excess Sodium 140 141 Potassium 3.9 4.2 Chloride 107 109 H Carbon Dioxide 19.1 L 18.1 L Anion Gap 13.9 H 13.9 H BUN 38 H 40 H Creatinine 2.9 H 2.9 H Est GFR (CKD-EPI 2020) 22.01 22.01 Glucose 180 H 146 H Hemoglobin A1c Calcium 8.0 L 7.7 L Magnesium Total Bilirubin 0.3 AST 373 H ALT 268 H Alkaline Phosphatase 81 Creatine Kinase > 31118 H Troponin I Total Protein 5.9 L Albumin 2.9 L Urine Color Urine Clarity Urine pH Ur Specific [place] Urine Protein Urine Ketones Urine Blood Urine Nitrite Urine Bilirubin Urine Urobilinogen Ur Leukocyte Esterase Urine RBC Urine WBC Ur Epithelial Cells Urine Crystals Urine Bacteria Urine Casts Urine Mucus Ur Culture Indicated? Urine Glucose Acetaminophen 2 Add-On Test Request 09/15/23 09/15/23 09/15/23 08:38 08:55 09:00 WBC RBC Hgb Hct MCV MCH MCHC RDW Plt Count MPV Immature Gran % Neutrophils % Lymphocytes % Monocytes % Eosinophils % Basophils % Nucleated RBC % Absolute Neutrophils Absolute Lymphocytes Absolute Monocytes Absolute Eosinophils Absolute Basophils ESR PT INR VBG pH 7.25 L VBG pCO2 35 L VBG pO2 62 VBG HCO3 15 L VBG Total CO2 15 L VBG O2 Saturation 91 VBG Base Excess -12 L Sodium Potassium Chloride Carbon Dioxide Anion Gap BUN Creatinine Est GFR (CKD-EPI 2020) Glucose Hemoglobin A1c Calcium Magnesium Total Bilirubin AST ALT Alkaline Phosphatase Creatine Kinase Troponin I Total Protein Albumin Urine Color Yellow Urine Clarity Clear Urine pH 5.5 Ur Specific Remington <= 1.005 Urine Protein 100 H Urine Ketones Negative Urine Blood Large H Urine Nitrite Negative Urine Bilirubin Negative Urine Urobilinogen 0.2 Ur Leukocyte Esterase Negative Urine RBC >50 H Urine WBC 0-2 Ur Epithelial Cells Many Urine Crystals Few Amorphous Urine Bacteria Few Urine Casts 0-2 Coarse Granular Urine Mucus Negative Ur Culture Indicated? No/Sq. Contamination Urine Glucose Negative Acetaminophen Add-On Test Request DONE 09/15/23 09/15/23 09/15/23 09:53 12:00 18:00 WBC RBC Hgb Hct MCV MCH MCHC RDW Plt Count MPV Immature Gran % Neutrophils % Lymphocytes % Monocytes % Eosinophils % Basophils % Nucleated RBC % Absolute Neutrophils Absolute Lymphocytes Absolute Monocytes Absolute Eosinophils Absolute Basophils ESR PT INR VBG pH 7.27 L VBG pCO2 36 L VBG pO2 49 VBG HCO3 17 L VBG Total CO2 16 L VBG O2 Saturation 85 VBG Base Excess -11 L Sodium Cancelled Cancelled Potassium Cancelled Cancelled Chloride Cancelled Cancelled Carbon Dioxide Cancelled Cancelled Anion Gap Cancelled Cancelled BUN Cancelled Cancelled Creatinine Cancelled Cancelled Est GFR (CKD-EPI 2020) Cancelled Cancelled Glucose Cancelled Cancelled Hemoglobin A1c Calcium Cancelled Cancelled Magnesium Total Bilirubin AST ALT Alkaline Phosphatase Creatine Kinase Troponin I Total Protein Albumin Urine Color Urine Clarity Urine pH Ur Specific [place] Urine Protein Urine Ketones Urine Blood Urine Nitrite Urine Bilirubin Urine Urobilinogen Ur Leukocyte Esterase Urine RBC Urine WBC Ur Epithelial Cells Urine Crystals Urine Bacteria Urine Casts Urine Mucus Ur Culture Indicated? Urine Glucose Acetaminophen Add-On Test Request Time Spent with Patient Time Spent with Patient: >50 minutes Time was spent: preparing to see the patient(eg.review tests), ordering medications,tests, procedures, referring, communicating with other health residential child care counselor, indepentently interpreting results, counseling the patient and care coordination
[2023-09-15 10:16] LABS: Anion Gap 10.6 mmol/L (3-11); BUN 41 mg/dL (7-18); CO2 18.4 mmol/L (21.0-32.0); CREATININE 2.8 mg/dL (0.70-1.30); Calcium 7.8 mg/dL (8.5-10.1); Chloride 110 mmol/L (98-107); Estimated GFR 22.96 (mL/min/1.73m2); Glucose 206 mg/dL (74-106); Potassium 4.3 mmol/L (3.5-5.1); Sodium 139 mmol/L (136-145)
[2023-09-15 12:23] LABS: Calcium 7.6 mg/dL (8.5-10.1)
[2023-09-15 14:10] LABS: Anion Gap 12.8 mmol/L (3-11); BUN 38 mg/dL (7-18); CO2 20.2 mmol/L (21.0-32.0); CREATININE 2.8 mg/dL (0.70-1.30); Calcium 7.6 mg/dL (8.5-10.1); Chloride 108 mmol/L (98-107); Estimated GFR 22.96 (mL/min/1.73m2); Glucose 202 mg/dL (74-106); Sodium 141 mmol/L (136-145)
--- NOTE | 2023-09-15 14:34 | CHAPLAIN ---
Andrew told me that he's not doing well and has an infection in his kidneys and bladder. That last times Andrew was here, he was dealing with cardiac issues. Andrew asked for a Bible, so I brought one up to him. He had s visitor when I returned, so I didn't stay. Andrew's , Madiha, is a former [employer] employee of many years. Andrew said when he fell recently, he fell on top of Madiha so her leg is injured and she won't be coming to visit. I will continue to check in.
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
[2023-09-15 15:34] LABS: Bilirubin Negative (Negative); Blood Large (Negative); Clarity Clear (Clear); Glucose Negative (Negative); Ketones Negative (Negative); Leukocyte Esterase Negative (Negative); Nitrite Negative (Negative); Urobilinogen 0.2 mg/dL (Up to 0.2)
--- NOTE | 2023-09-15 15:52 | PHA.REVIEW2 ---
Pharmacy Admission Review Admission Clinical Review Admission Pharmacy Review: Elevated CK (Acute) Discharge planning issues (Acute) DVT prophylaxis (Acute) Rhabdomyolysis (Acute) Elevated LFTs (Acute) BABS (acute kidney injury) (Acute) Abrasion of right knee (Acute) Microcytic anemia (Acute) Immunization, tetanus-diphtheria (Acute) Hx of falling (Acute) Frequent falls (Acute) amoxicillin Allergy (Severe, Verified 09/09/23 08:12) breathing difficuty and vomiting Penicillins Allergy (Intermediate, Verified 09/09/23 08:12) Skin Rash sulfamethoxazole [From Bactrim] Allergy (Intermediate, Verified 09/09/23 08:12) Skin Rash trimethoprim [From Bactrim] Allergy (Intermediate, Verified 09/09/23 08:12) Skin Rash oxycodone HCl [From Percocet] Adverse Reaction (Severe, Verified 09/09/23 08:12) Contraindicated oxycodone terephthalate [From Percodan] Adverse Reaction (Severe, Verified 09/09/23 08:12) Contraindicated Resuscitation Status Full Code Height 5 ft 10 in Weight 94.7 kg Pharmacy Admission Review Renal Dosing Renal Dosing: BUN Cancelled 09/15/23 18:00 Creatinine Cancelled 09/15/23 18:00 Medications needing adjustments: Intervened (CrCl 26.7 mL/min, BUN decreased from 41 to 38 and SCr decreased from 2.9 to 2.8) List of meds needing interventions: Reached out to provider regarding Lyrica dose (recommended max of 150mg/day due to kidney function). Provider was okay reducing to 75mg BID. Other medications are currently okay. Anticoagulation Anticoagulation: Hgb 10.7 g/dL (13.5-17.5) L 09/15/23 07:00 Hct 32.2 % (40.0-50.0) L 09/15/23 07:00 Plt Count 164 10^3/uL (130-400) 09/15/23 07:00 INR 1.0 (0.9-1.1) 09/14/23 20:44 Creatinine Cancelled 09/15/23 18:00 DVT Prophylaxis: Reviewed Medications: Enoxaparin (30mg daily) Relevant Labs Relevant Labs: ESR 15 mm/hr (0-20) 09/15/23 07:00 Sodium Cancelled 09/15/23 18:00 Potassium Cancelled 09/15/23 18:00 Chloride Cancelled 09/15/23 18:00 Magnesium 2.3 mg/dL (1.8-2.4) 09/14/23 16:30 Electrolytes, C-Reactive P, ESR: Reviewed (Hgb decreased from 12.3 to 10.7, AST/ALT decreased from 482/320 to 373/268, CPK >10,000) DM Control DM Control: Glucose Cancelled 09/15/23 18:00 Hemoglobin A1c 6.5 % (<5.7) H 09/14/23 16:30 Finger Stick Blood Glucose 223 1143 Finger Stick Blood Glucose 223 1138 Finger Stick Blood Glucose 223 1138 Finger Stick Blood Glucose 144 0957 DM Control: Reviewed (Glucose 202 at 1355) Insulin Dosing, Diabetic Medication: Has orders for SS insulin and 50 units of glargine BID Cardiac Review Cardiac Review: Troponin I < 50 ng/L (< or =60) 09/14/23 19:16 BP, HR, EF%: Reviewed (HR and BP WNL, has been going between normal and low with blood pressure) QTc Review QTc: Reviewed (423 from 09/12/23) IV to PO Switch IV Medications: Reviewed (Sodium bicarbonate drip) Home Meds Home Med List reviewed: Intervened Relevent Home Meds Not ordered & why?: Victoza (on hold), metformin (on hold), lisinopril (on hold - BABS), nitroglycerin tab (PRN) and ranolazine (hold - BABS) Provider asked that I contact patients preferred pharmacy ([facility]) to see if patient takes a statin. Per [facility], patient last picked up rosuvastatin 20mg daily on 05/03/23 for 90 day supply with no refills remaining. I was also asked to look into side effects of Victoza. Per UpTo[employer] it does list increased creatine phosphokinase in blood specimen and limb pain as potential side effects. Current Meds Current Medication Order Review: Intervened Comments: Spoke with provider about sodium bicarbonate infusion, dosing based on treatment for rhabdomyolysis (confirmed with [employer]). Per provider, treating until CPk <5000
[2023-09-15 16:06] LABS: WBC 0-2 HPF (0-5)
[2023-09-15 16:07] LABS: Bacteria Few HPF (Negative); C & S Indicated? No; Casts Negative LPF (Negative); Crystals Negative HPF (Negative); Epithelial Cells Rare HPF (Negative); Mucus Trace (Negative)
[2023-09-15 16:38] LABS: Ionized Calcium 1.11 mmol/L (1.14-1.35)
[2023-09-15 17:43] LABS: Bilirubin Negative (Negative); Blood Large (Negative); Clarity Clear (Clear); Glucose Negative (Negative); Ketones Negative (Negative); Leukocyte Esterase Negative (Negative); Nitrite Negative (Negative); Urobilinogen 0.2 mg/dL (Up to 0.2); pH 6.5 (5-8)
[2023-09-15 17:51] LABS: HIV-1/2 Ag & Ab Screen Negative (Negative)
[2023-09-15 17:56] LABS: Bacteria Negative HPF (Negative); C & S Indicated? No; Crystals Negative HPF (Negative); Epithelial Cells Negative HPF (Negative); Mucus Trace (Negative); RBC 20-50 HPF (0-2); WBC 0-2 HPF (0-5)
[2023-09-15 17:56] LABS: Hepatitis A Antibody IgM Negative (Negative); Hepatitis B Core Antibody Negative (Negative); Hepatitis B surface Ag Negative (Negative); Hepatitis C Ab w Rflx HCV PCR Negative (Negative)
[2023-09-15 18:53] LABS: BE (Venous) -3 mmol/L (-2-3); HCO3 (Venous) 23 mmol/L (23-28); O2 Sat (Venous) 46 %; TCO2 (Venous) 22 mmol/L (24-29); pCO2 (Venous) 43 mmHg (41-51); pH (Venous) 7.33 (7.31-7.41); pO2 (Venous) 23 mmHg
[2023-09-15 19:06] LABS: Anion Gap 10.3 mmol/L (3-11); BUN 36 mg/dL (7-18); CO2 23.7 mmol/L (21.0-32.0); CREATININE 2.6 mg/dL (0.70-1.30); Calcium 7.6 mg/dL (8.5-10.1); Chloride 108 mmol/L (98-107); Estimated GFR 25.09 (mL/min/1.73m2); Glucose 210 mg/dL (74-106); Potassium 3.9 mmol/L (3.5-5.1); Sodium 142 mmol/L (136-145)
[2023-09-15] MEDS: Pregabalin 25 MG CAP 75 MG PO (19:57)
[2023-09-15] MEDS: traMADol 50 MG TAB PO (19:58)
[2023-09-15 20:01] LABS: Creatine Kinase > 10000 U/L (39-308)
[2023-09-15] MEDS: Normal Saline 1,000 ML 100 ML IV (21:15)
[2023-09-15] MEDS: Isosorbide Mononitrate 30 MG TABCR 90 MG PO (21:38)
[2023-09-15] MEDS: Metoprolol CR 50 MG TABCR PO (21:39)
[2023-09-15] MEDS: Topiramate 25 MG TAB PO (21:39)
[2023-09-15] MEDS: QUEtiapine 300 MG TAB PO (21:40)
[2023-09-15] MEDS: Enoxaparin 30 MG/0.3 ML SYR SC (21:40)
[2023-09-15 22:27] LABS: Bilirubin Negative (Negative); Blood Large (Negative); Clarity Clear (Clear); Glucose Negative (Negative); Ketones Negative (Negative); Leukocyte Esterase Negative (Negative); Nitrite Negative (Negative); Specific Gravity 1.015 (1.005-1.025); Urobilinogen 0.2 mg/dL (Up to 0.2)
[2023-09-15 22:34] LABS: Bacteria Rare HPF (Negative); Crystals Negative HPF (Negative); Epithelial Cells Rare HPF (Negative); RBC 20-50 HPF (0-2); WBC 0-2 HPF (0-5)
[2023-09-15 22:35] LABS: C & S Indicated? No; Casts Negative LPF (Negative); Mucus Negative (Negative)
[2023-09-16] VITALS (33 sets, daily range): BP systolic 98–147; BP diastolic 57–76; PULSE 73–104; RESP 11–27; TEMP 37–38; O2SAT 94–98
[2023-09-16 00:29] LABS: Anion Gap 9.2 mmol/L (3-11); BUN 33 mg/dL (7-18); CO2 25.8 mmol/L (21.0-32.0); CREATININE 2.4 mg/dL (0.70-1.30); Calcium 7.3 mg/dL (8.5-10.1); Chloride 108 mmol/L (98-107); Estimated GFR 27.62 (mL/min/1.73m2); Glucose 234 mg/dL (74-106); Potassium 3.3 mmol/L (3.5-5.1); Sodium 143 mmol/L (136-145)
[2023-09-16 00:58] LABS: Creatine Kinase > 10000 U/L (39-308)
[2023-09-16 02:20] LABS: Bilirubin Negative (Negative); Blood Large (Negative); Clarity Sl Cloudy (Clear); Glucose Negative (Negative); Ketones Negative (Negative); Leukocyte Esterase Negative (Negative); Nitrite Negative (Negative); Specific Gravity 1.015 (1.005-1.025); Urobilinogen 0.2 mg/dL (Up to 0.2)
[2023-09-16 02:45] LABS: Bacteria Rare HPF (Negative); C & S Indicated? No; Crystals Negative HPF (Negative); Epithelial Cells Negative HPF (Negative); Mucus Negative (Negative); RBC >50 HPF (0-2); WBC 0-2 HPF (0-5)
[2023-09-16] MEDS: SODIUM BICARBONATE 150 MEQ in DEXTROSE 5%-WATER 850 ML 200 MEQ IV ×3 (05:02→15:49)
[2023-09-16] MEDS: Acetaminophen 500 MG TAB 1000 MG PO ×3 (06:19→21:39)
[2023-09-16] MEDS: Levothyroxine 50 MCG TAB PO (06:19)
[2023-09-16 06:41] LABS: Abs Immature Grans 0.03 10^3/uL (0.0-0.06); Absolute Basophil Count 0.04 10^3/uL (0.0-0.2); Absolute Eosinophil Count 0.17 10^3/uL (0.0-0.7); Absolute Lymphocyte Count 0.81 10^3/uL (1.2-3.4); Absolute Monocyte Count 0.64 10^3/uL (0.1-0.8); Absolute Neutrophil Count 3.41 10^3/uL (1.2-6.7); Basophils % 0.8; Eosinophils % 3.3; HCT 30.9 % (40.0-50.0); HGB 10.2 g/dL (13.5-17.5); Immature Grans % 0.6; Lymphocytes % 15.9; MCH 28.7 pg (27.0-33.0); MCV 87 fL (80-95); MPV 9.6 fL (8.0-11.0); Monocytes % 12.5; Neutrophils % 66.9; Platelet Count 150 10^3/uL (130-400); RBC 3.55 10^6/uL (4.36-5.78); RDW-SD 47.1 fL
[2023-09-16 06:58] LABS: ALT 212 U/L (16-63); AST 262 U/L (15-37); Albumin 2.5 g/dL (3.4-5.0); Alkaline Phosphatase 57 U/L (46-116); Anion Gap 9.1 mmol/L (3-11); BUN 30 mg/dL (7-18); Bilirubin, Total 0.2 mg/dL (0.2-1.0); CO2 27.9 mmol/L (21.0-32.0); CREATININE 2.2 mg/dL (0.70-1.30); Calcium 7.2 mg/dL (8.5-10.1); Chloride 109 mmol/L (98-107); Estimated GFR 30.66 (mL/min/1.73m2); Glucose 201 mg/dL (74-106); Potassium 3.2 mmol/L (3.5-5.1); Sodium 146 mmol/L (136-145); Total Protein 5.1 g/dL (6.4-8.2)
[2023-09-16 07:12] LABS: Bilirubin Negative (Negative); Blood Large (Negative); Clarity Clear (Clear); Glucose Negative (Negative); Ketones Negative (Negative); Leukocyte Esterase Negative (Negative); Nitrite Negative (Negative); Specific Gravity 1.015 (1.005-1.025); Urobilinogen 0.2 mg/dL (Up to 0.2); pH 7.5 (5-8)
[2023-09-16 07:26] LABS: Bacteria Rare HPF (Negative); Casts Negative LPF (Negative); Crystals Negative HPF (Negative); Epithelial Cells Negative HPF (Negative); Mucus Trace (Negative); Other Cells Negative (Negative); RBC 20-50 HPF (0-2); WBC 0-2 HPF (0-5)
[2023-09-16 07:27] LABS: C & S Indicated? No
[2023-09-16] MEDS: Citalopram 20 MG TAB 10 MG PO (08:25)
[2023-09-16] MEDS: Polyethylene Glycol 3350 17 GM PACKET PO (08:25)
[2023-09-16] MEDS: Pregabalin 25 MG CAP 75 MG PO ×2 (08:26→20:22)
[2023-09-16] MEDS: Allopurinol 300 MG TAB PO (08:27)
[2023-09-16] MEDS: Pantoprazole 40 MG TABCR PO (08:28)
[2023-09-16] MEDS: Topiramate 50 MG TAB PO (08:28)
[2023-09-16] MEDS: Finasteride 5 MG TAB PO (08:28)
[2023-09-16] MEDS: amLODIPine 2.5 MG TAB PO (08:28)
[2023-09-16] MEDS: Mirabegron 25 MG TABCR PO (08:28)
[2023-09-16] MEDS: Insulin Glargine 300 UNITS/3 ML PEN 50 UNITS SC ×2 (08:29→20:50)
[2023-09-16] MEDS: Insulin Aspart 300 UNITS/3 ML PEN SC ×2 (08:30→12:15)
[2023-09-16] MEDS: Normal Saline 1,000 ML 100 ML IV (08:42)
--- NOTE | 2023-09-16 09:18 | W.PM.PROGNOT ---
Date of Service Date of service: 09/16/23 Time of Service: 09:43 Assessment and Plan Assessment and plan (1) Rhabdomyolysis: Status: Acute Assessment and plan: etiology unclear but certainly may have been d/t either his Victoza or d/t his Crestor CK remain >10,000 despite iv fluids, sodium bicarbonate drip; will consult / [facility] [place] further advice; he continues to have good urine output; I would continue w/ aggressive iv fluids and his urine has now been alkalinized; I will continue the sodium bicarbonate drip for now but continue to monitor VBG and urine pH, urine output and serial BMP Critical care time spent interviewing and examining the patient, reviewing studies, discussing case with patient's nurse and consulting physicians was 30 minutes Qualifiers: Rhabdomyolysis type: non-traumatic Qualified Code(s): M62.82 - Rhabdomyolysis (2) Elevated LFTs: Status: Acute Assessment and plan: likely d/t whatever offending agent caused his rhabdomyolysis. HIV screen and hepatitis studies were negative (3) BABS (acute kidney injury): Status: Acute Assessment and plan: BUN and creatinine are improving, creatinine 3.1 > 2.9 > 2.4 >2.2 w/ nearly 6 L in urine output yesterday. need to replace his K, continue serial BMP (4) Microcytic anemia: Status: Acute Assessment and plan: stable. will monitor and workup w/ iron levels, folate, B12 levels (5) Frequent falls: Status: Acute Assessment and plan: likely d/t his rhabdomyolysis; once he recovers from his rhabdo then can resume P.T. (he had been referred to P.T. as outpatient from his recent ED visit) (6) Diabetes mellitus type 2 in obese: Status: Chronic Assessment and plan: hold Victoza, cover w/ basal/bolus insulin sliding scale (7) CAD (coronary artery disease): Status: None Assessment and plan: stable, contnue current meds (Ranexa, Toprol XL, amlodipine Qualifiers: Coronary Disease-Associated Artery/Lesion type: [place] artery [place] vs. transplanted heart: [place] heart Associated angina: with unspecified angina Qualified Code(s): I25.119 - Atherosclerotic heart disease of [place] coronary artery with unspecified angina pectoris (8) DVT prophylaxis: Status: Acute Assessment and plan: Renally dosed LMWH (9) Discharge planning issues: Status: Acute Assessment and plan: Patient remains a full code requires continued hospitalization until recovery of his renal function Subjective Subjective Interval history since last seen: Patient complains of abdominal bloating, feels he needs to have more BM, although he has been having BM's. Exam Narrative Exam Narrative: Mr. Osman is sitting up in his chair watching TV he is alert and orient x 3 appears to be in no acute respiratory distress. Lungs are clear to auscultation Heart is regular Rhythm slightly tachycardic Abdomen is distended but remains soft with normal active bowel sounds Extremities without edema Coello catheter is draining clear yellow urine. He has had good urine output with the IV fluid hydration. Total urine output yesterday was 5800 and overnight has had another 1100 mL since midnight Objective Last Vital Signs Temp 36.8 C 09/15/23 23:30 Pulse 86 09/16/23 06:01 Resp 12 09/16/23 06:01 BP 108/64 09/16/23 06:01 Pulse Ox 96 09/16/23 06:01 Laboratory Results - last 24 hr 09/15/23 09/15/23 09/15/23 05:20 07:00 08:55 WBC RBC Hgb Hct MCV MCH MCHC RDW Plt Count MPV Immature Gran % Neutrophils % Lymphocytes % Monocytes % Eosinophils % Basophils % Nucleated RBC % Absolute Neutrophils Absolute Lymphocytes Absolute Monocytes Absolute Eosinophils Absolute Basophils VBG pH VBG pCO2 VBG pO2 VBG HCO3 VBG Total CO2 VBG O2 Saturation VBG Base Excess Sodium Potassium Chloride Carbon Dioxide Anion Gap BUN Creatinine Est GFR (CKD-EPI 2020) Glucose Calcium Ionized Calcium Total Bilirubin AST ALT Alkaline Phosphatase Creatine Kinase Total Protein Albumin Urine Color Cancelled Yellow Urine Clarity Cancelled Clear Urine pH Cancelled 5.5 Ur Specific [place] Cancelled <= 1.005 Urine Protein Cancelled 100 H Urine Ketones Cancelled Negative Urine Blood Cancelled Large H Urine Nitrite Cancelled Negative Urine Bilirubin Cancelled Negative Urine Urobilinogen Cancelled 0.2 Ur Leukocyte Esterase Cancelled Negative Urine RBC >50 H Urine WBC 0-2 Ur Epithelial Cells Many Urine Crystals Few Amorphous Urine Bacteria Few Urine Casts 0-2 Coarse Granular Urine Mucus Negative Urine Other Ur Culture Indicated? No/Sq. Contamination Urine Glucose Cancelled Negative Hepatitis A IgM Ab Negative Hep Bs Antigen Negative Hep B Core Total Ab Negative Hepatitis C Antibody Negative HIV 1&2 Ag/Ab, 4th Gen Negative 09/15/23 09/15/23 09/15/23 09:00 09:53 11:55 WBC RBC Hgb Hct MCV MCH MCHC RDW Plt Count MPV Immature Gran % Neutrophils % Lymphocytes % Monocytes % Eosinophils % Basophils % Nucleated RBC % Absolute Neutrophils Absolute Lymphocytes Absolute Monocytes Absolute Eosinophils Absolute Basophils VBG pH 7.27 L VBG pCO2 36 L VBG pO2 49 VBG HCO3 17 L VBG Total CO2 16 L VBG O2 Saturation 85 VBG Base Excess -11 L Sodium 139 Potassium 4.3 Chloride 110 H Carbon Dioxide 18.4 L Anion Gap 10.6 BUN 41 H Creatinine 2.8 H Est GFR (CKD-EPI 2020) 22.96 Glucose 206 H Calcium 7.8 L 7.6 L Ionized Calcium 1.11 L Total Bilirubin AST ALT Alkaline Phosphatase Creatine Kinase Total Protein Albumin Urine Color Urine Clarity Urine pH Ur Specific [place] Urine Protein Urine Ketones Urine Blood Urine Nitrite Urine Bilirubin Urine Urobilinogen Ur Leukocyte Esterase Urine RBC Urine WBC Ur Epithelial Cells Urine Crystals Urine Bacteria Urine Casts Urine Mucus Urine Other Ur Culture Indicated? Urine Glucose Hepatitis A IgM Ab Hep Bs Antigen Hep B Core Total Ab Hepatitis C Antibody HIV 1&2 Ag/Ab, 4th Gen 09/15/23 09/15/23 09/15/23 13:55 15:20 17:30 WBC RBC Hgb Hct MCV MCH MCHC RDW Plt Count MPV Immature Gran % Neutrophils % Lymphocytes % Monocytes % Eosinophils % Basophils % Nucleated RBC % Absolute Neutrophils Absolute Lymphocytes Absolute Monocytes Absolute Eosinophils Absolute Basophils VBG pH VBG pCO2 VBG pO2 VBG HCO3 VBG Total CO2 VBG O2 Saturation VBG Base Excess Sodium 141 Potassium 4.0 Chloride 108 H Carbon Dioxide 20.2 L Anion Gap 12.8 H BUN 38 H Creatinine 2.8 H Est GFR (CKD-EPI 2020) 22.96 Glucose 202 H Calcium 7.6 L Ionized Calcium Total Bilirubin AST ALT Alkaline Phosphatase Creatine Kinase Total Protein Albumin Urine Color Yellow Yellow Urine Clarity Clear Clear Urine pH 6.0 6.5 Ur Specific [place] 1.010 1.010 Urine Protein 100 H 30 H Urine Ketones Negative Negative Urine Blood Large H Large H Urine Nitrite Negative Negative Urine Bilirubin Negative Negative Urine Urobilinogen 0.2 0.2 Ur Leukocyte Esterase Negative Negative Urine RBC 10-20 H 20-50 H Urine WBC 0-2 0-2 Ur Epithelial Cells Rare Negative Urine Crystals Negative Negative Urine Bacteria Few Negative Urine Casts Negative Urine Mucus Trace Trace Urine Other Ur Culture Indicated? No No Urine Glucose Negative Negative Hepatitis A IgM Ab Hep Bs Antigen Hep B Core Total Ab Hepatitis C Antibody HIV 1&2 Ag/Ab, 4th Gen 09/15/23 09/15/23 09/16/23 18:45 21:45 00:15 WBC RBC Hgb Hct MCV MCH MCHC RDW Plt Count MPV Immature Gran % Neutrophils % Lymphocytes % Monocytes % Eosinophils % Basophils % Nucleated RBC % Absolute Neutrophils Absolute Lymphocytes Absolute Monocytes Absolute Eosinophils Absolute Basophils VBG pH 7.33 VBG pCO2 43 VBG pO2 23 VBG HCO3 23 VBG Total CO2 22 L VBG O2 Saturation 46 VBG Base Excess -3 L Sodium 142 143 Potassium 3.9 3.3 L Chloride 108 H 108 H Carbon Dioxide 23.7 25.8 Anion Gap 10.3 9.2 BUN 36 H 33 H Creatinine 2.6 H 2.4 H Est GFR (CKD-EPI 2020) 25.09 27.62 Glucose 210 H 234 H Calcium 7.6 L 7.3 L Ionized Calcium Total Bilirubin AST ALT Alkaline Phosphatase Creatine Kinase > 71230 H > 88491 H Total Protein Albumin Urine Color Yellow Urine Clarity Clear Urine pH 7.0 Ur Specific [place] 1.015 Urine Protein 30 H Urine Ketones Negative Urine Blood Large H Urine Nitrite Negative Urine Bilirubin Negative Urine Urobilinogen 0.2 Ur Leukocyte Esterase Negative Urine RBC 20-50 H Urine WBC 0-2 Ur Epithelial Cells Rare Urine Crystals Negative Urine Bacteria Rare Urine Casts Negative Urine Mucus Negative Urine Other Ur Culture Indicated? No Urine Glucose Negative Hepatitis A IgM Ab Hep Bs Antigen Hep B Core Total Ab Hepatitis C Antibody HIV 1&2 Ag/Ab, 4th Gen 09/16/23 09/16/23 09/16/23 02:00 05:45 05:52 WBC 5.10 RBC 3.55 L Hgb 10.2 L Hct 30.9 L MCV 87 MCH 28.7 MCHC 33.0 RDW 15.0 H Plt Count 150 MPV 9.6 Immature Gran % 0.6 Neutrophils % 66.9 Lymphocytes % 15.9 Monocytes % 12.5 Eosinophils % 3.3 Basophils % 0.8 Nucleated RBC % 0.0 Absolute Neutrophils 3.41 Absolute Lymphocytes 0.81 L Absolute Monocytes 0.64 Absolute Eosinophils 0.17 Absolute Basophils 0.04 VBG pH VBG pCO2 VBG pO2 VBG HCO3 VBG Total CO2 VBG O2 Saturation VBG Base Excess Sodium 146 H Potassium 3.2 L Chloride 109 H Carbon Dioxide 27.9 Anion Gap 9.1 BUN 30 H Creatinine 2.2 H Est GFR (CKD-EPI 2020) 30.66 Glucose 201 H Calcium 7.2 L Ionized Calcium Total Bilirubin 0.2 AST 262 H ALT 212 H Alkaline Phosphatase 57 Creatine Kinase Total Protein 5.1 L Albumin 2.5 L Urine Color Yellow Yellow Urine Clarity Sl Cloudy Clear Urine pH 7.0 7.5 Ur Specific [place] 1.015 1.015 Urine Protein 100 H 30 H Urine Ketones Negative Negative Urine Blood Large H Large H Urine Nitrite Negative Negative Urine Bilirubin Negative Negative Urine Urobilinogen 0.2 0.2 Ur Leukocyte Esterase Negative Negative Urine RBC >50 H 20-50 H Urine WBC 0-2 0-2 Ur Epithelial Cells Negative Negative Urine Crystals Negative Negative Urine Bacteria Rare Rare Urine Casts Negative Urine Mucus Negative Trace Urine Other Negative Ur Culture Indicated? No No Urine Glucose Negative Negative Hepatitis A IgM Ab Hep Bs Antigen Hep B Core Total Ab Hepatitis C Antibody HIV 1&2 Ag/Ab, 4th Gen Reviewed Pertinent PMH: Yes Time Spent with Patient Time Spent with Patient: 25-34 minutes Time was spent: preparing to see the patient(eg.review tests), ordering medications,tests, procedures, referring, communicating with other health care program resident, indepentently interpreting results, counseling the patient and care coordination
[2023-09-16 11:34] LABS: Bilirubin Negative (Negative); Blood Large (Negative); Clarity Clear (Clear); Glucose 100 mg/dL (Negative); Ketones Negative (Negative); Leukocyte Esterase Trace (Negative); Nitrite Negative (Negative); Specific Gravity 1.015 (1.005-1.025); Urobilinogen 0.2 mg/dL (Up to 0.2); pH 8.5 (5-8)
[2023-09-16 11:51] LABS: Bacteria Few HPF (Negative); C & S Indicated? No; Casts Negative LPF (Negative); Crystals Negative HPF (Negative); Epithelial Cells Negative HPF (Negative); Mucus Trace (Negative); Other Cells Negative (Negative); RBC 20-50 HPF (0-2); WBC 0-2 HPF (0-5)
[2023-09-16] MEDS: Methylnaltrexone 12 MG/0.6 ML VIAL SC (12:08)
[2023-09-16] MEDS: Senna TAB 1 TAB PO ×2 (12:08→21:39)
[2023-09-16] MEDS: Bisacodyl 10 MG SUPP PR (12:09)
[2023-09-16] MEDS: Docusate Sodium 100 MG CAP PO ×3 (12:09→20:23)
[2023-09-16 13:26] LABS: ANA Interpretation Negative (Negative)
[2023-09-16 14:40] LABS: BE (Venous) 7 mmol/L (-2-3); HCO3 (Venous) 32 mmol/L (23-28); O2 Sat (Venous) 81 %; TCO2 (Venous) 30 mmol/L (24-29); pCO2 (Venous) 51 mmHg (41-51); pO2 (Venous) 41 mmHg
[2023-09-16 14:55] LABS: Anion Gap 6.1 mmol/L (3-11); BUN 28 mg/dL (7-18); CO2 32.9 mmol/L (21.0-32.0); CREATININE 2.5 mg/dL (0.70-1.30); Calcium 6.9 mg/dL (8.5-10.1); Chloride 104 mmol/L (98-107); Glucose 254 mg/dL (74-106); Potassium 3.2 mmol/L (3.5-5.1); Sodium 143 mmol/L (136-145)
[2023-09-16] MEDS: POTASSIUM CHLORIDE/0.9% NACL 1,000 ML 100 MEQ IV ×2 (15:17→23:40)
--- NOTE | 2023-09-16 16:10 | PT.INTREAT ---
PT Notes Visit Reasons: Weakness,Acute Kidney Injury,Transaminitis Date: 09/16/23 PRECAUTIONS: Fall. Standard. Activity as tolerated. SUBJECTIVE: Pt in recliner when approached for therapy this afternoon, pt agreed to participate with therapy session OBJECTIVE: Telemetry monitoring in place. Coello catheter in place. ? PAIN: none reported VITALS: closely monitored by ICU nurse ? Therapeutic Activities [id number]: Direct one-on-one instruction in dynamic activities to improve functional performance. ?? BED MOBILITY/TRANSFERS? Rolling L/R: not performed Supine-sit: ? ?not performed ? Sit-supine: ? ?not performed ? Sit-stand: ? ?CGA ? Stand-sit: ?? CGA ? Bed-Chair:? not performed? Chair-bed: not performed Provided skilled cues and instruction on performance and technique throughout. Gait Training [id number]: Direct one-on-one instruction and skilled instruction in: Employing an assistive device Modified weight-bearing status Movement sequencing Turning and movement with proper form Provided verbal cues for equipment management and technique Provided instruction in gait pattern Patient education regarding pacing and breathing techniques to maximize activity tolerance? GAIT? Assistive Device: ??FWW ? Weight bearing: FWB Assist: ?CGA ? Distance:?? 10'x1, 20'x1, 30'x1 seated rest break in between distances? Deviation: ?Stoop forward, shuffling gait ? Exercises/techniques: ? ASSESSMENT:?Pt reports he felt his knee starting to buckle, pt able to stay upright and self recover with CGA for safety, pt stayed in recliner post gait training session. PLAN: Continue with balance training, global strengthening and general conditioning for improved safety, mobility and activity tolerance until pt is ready for DC. TREATMENT CODE/TIME: [id number] 30mins (3:45-4:15pm)
[2023-09-16] MEDS: POTASSIUM CHLORIDE 10 MEQ/100 ML BAG 100 MEQ IVPB ×3 (16:13→18:20)
[2023-09-16 19:42] LABS: BE (Venous) 6 mmol/L (-2-3); HCO3 (Venous) 31 mmol/L (23-28); O2 Sat (Venous) 56 %; TCO2 (Venous) 29 mmol/L (24-29); pCO2 (Venous) 55 mmHg (41-51); pH (Venous) 7.37 (7.31-7.41); pO2 (Venous) 29 mmHg
[2023-09-16 19:56] LABS: Anion Gap 9.6 mmol/L (3-11); BUN 26 mg/dL (7-18); CO2 31.4 mmol/L (21.0-32.0); CREATININE 2.4 mg/dL (0.70-1.30); Calcium 7.2 mg/dL (8.5-10.1); Chloride 103 mmol/L (98-107); Estimated GFR 27.62 (mL/min/1.73m2); Glucose 237 mg/dL (74-106); Potassium 3.4 mmol/L (3.5-5.1); Sodium 144 mmol/L (136-145)
[2023-09-16] MEDS: POTASSIUM CHLORIDE 10 MEQ/100 ML BAG 200 MEQ IVPB (20:08)
[2023-09-16] MEDS: Enoxaparin 40 MG/0.4 ML SYR SC (20:21)
[2023-09-16] MEDS: Isosorbide Mononitrate 30 MG TABCR 90 MG PO (20:22)
[2023-09-16] MEDS: QUEtiapine 300 MG TAB PO (20:23)
[2023-09-16] MEDS: Topiramate 25 MG TAB PO (20:23)
[2023-09-16] MEDS: Metoprolol CR 50 MG TABCR PO (20:23)
[2023-09-16 21:00] LABS: Creatine Kinase > 10000 U/L (39-308)
[2023-09-16 21:15] LABS: Bilirubin Negative (Negative); Blood Large (Negative); Clarity Clear (Clear); Glucose Negative (Negative); Ketones Negative (Negative); Leukocyte Esterase Negative (Negative); Nitrite Negative (Negative); Specific Gravity 1.015 (1.005-1.025); Urobilinogen 0.2 mg/dL (Up to 0.2); pH 8.5 (5-8)
[2023-09-16 21:40] LABS: Epithelial Cells Negative HPF (Negative); RBC 20-50 HPF (0-2); WBC 0-2 HPF (0-5)
[2023-09-16 21:41] LABS: Bacteria Negative HPF (Negative); C & S Indicated? No; Crystals Negative HPF (Negative); Mucus Negative (Negative)
[2023-09-17] VITALS (19 sets, daily range): BP systolic 94–160; BP diastolic 60–90; PULSE 86–104; RESP 13–26; TEMP 37–38.1; O2SAT 94–99
[2023-09-17 00:19] LABS: BE (Venous) 4 mmol/L (-2-3); HCO3 (Venous) 28 mmol/L (23-28); O2 Sat (Venous) 96 %; TCO2 (Venous) 26 mmol/L (24-29); pCO2 (Venous) 40 mmHg (41-51); pH (Venous) 7.45 (7.31-7.41); pO2 (Venous) 78 mmHg
[2023-09-17 00:32] LABS: BUN 26 mg/dL (7-18); CREATININE 2.1 mg/dL (0.70-1.30); Calcium 6.5 mg/dL (8.5-10.1); Chloride 105 mmol/L (98-107); Estimated GFR 32.42 (mL/min/1.73m2); Glucose 289 mg/dL (74-106); Potassium 3.4 mmol/L (3.5-5.1); Sodium 141 mmol/L (136-145)
[2023-09-17 03:06] LABS: Bilirubin Negative (Negative); Blood Large (Negative); Clarity Clear (Clear); Glucose Negative (Negative); Ketones Negative (Negative); Leukocyte Esterase Negative (Negative); Nitrite Negative (Negative); Specific Gravity 1.015 (1.005-1.025); Urobilinogen 0.2 mg/dL (Up to 0.2); pH 8.5 (5-8)
[2023-09-17 03:14] LABS: Bacteria Rare HPF (Negative); C & S Indicated? No; Casts Negative LPF (Negative); Crystals Negative HPF (Negative); Epithelial Cells Negative HPF (Negative); Mucus Negative (Negative); WBC 0-2 HPF (0-5)
[2023-09-17] MEDS: POTASSIUM CHLORIDE/0.9% NACL 1,000 ML 100 MEQ IV ×2 (04:48→10:18)
[2023-09-17 06:09] LABS: BE (Venous) 3 mmol/L (-2-3); HCO3 (Venous) 28 mmol/L (23-28); O2 Sat (Venous) 78 %; TCO2 (Venous) 26 mmol/L (24-29); pCO2 (Venous) 49 mmHg (41-51); pH (Venous) 7.37 (7.31-7.41); pO2 (Venous) 42 mmHg
[2023-09-17] MEDS: Levothyroxine 50 MCG TAB PO (06:11)
[2023-09-17 06:13] LABS: Abs Immature Grans 0.02 10^3/uL (0.0-0.06); Absolute Basophil Count 0.05 10^3/uL (0.0-0.2); Absolute Lymphocyte Count 0.89 10^3/uL (1.2-3.4); Absolute Neutrophil Count 3.58 10^3/uL (1.2-6.7); Basophils % 0.9; Eosinophils % 3.7; HCT 30.6 % (40.0-50.0); HGB 10.2 g/dL (13.5-17.5); Immature Grans % 0.4; Lymphocytes % 16.4; MCH 29.7 pg (27.0-33.0); MCHC 33.3 % (32.0-36.0); MCV 89 fL (80-95); Monocytes % 12.9; Neutrophils % 65.7; Platelet Count 154 10^3/uL (130-400); RBC 3.44 10^6/uL (4.36-5.78); RDW 15.5 % (11.8-14.1); RDW-SD 49.1 fL; WBC 5.44 10^3/uL (4.4-10.8)
[2023-09-17 06:29] LABS: ALT 234 U/L (16-63); AST 278 U/L (15-37); Albumin 2.5 g/dL (3.4-5.0); Alkaline Phosphatase 61 U/L (46-116); Anion Gap 7.5 mmol/L (3-11); BUN 25 mg/dL (7-18); Bilirubin, Total 0.2 mg/dL (0.2-1.0); CO2 28.5 mmol/L (21.0-32.0); CREATININE 2.1 mg/dL (0.70-1.30); Calcium 6.8 mg/dL (8.5-10.1); Chloride 108 mmol/L (98-107); Estimated GFR 32.42 (mL/min/1.73m2); Glucose 221 mg/dL (74-106); Potassium 3.3 mmol/L (3.5-5.1); Sodium 144 mmol/L (136-145); Total Protein 5.3 g/dL (6.4-8.2)
[2023-09-17 06:36] LABS: Bilirubin Negative (Negative); Blood Large (Negative); Clarity Clear (Clear); Glucose Negative (Negative); Ketones Negative (Negative); Leukocyte Esterase Trace (Negative); Nitrite Negative (Negative); Specific Gravity 1.015 (1.005-1.025); Urobilinogen 0.2 mg/dL (Up to 0.2); pH 8.5 (5-8)
[2023-09-17 06:44] LABS: Bacteria Negative HPF (Negative); C & S Indicated? Yes; Casts 0-2 Hyaline LPF (Negative); Crystals Negative HPF (Negative); Epithelial Cells Rare HPF (Negative); Mucus Negative (Negative); RBC 20-50 HPF (0-2); WBC 0-2 HPF (0-5)
[2023-09-17 07:57] LABS: Lab Add On Test DONE
[2023-09-17] MEDS: Mirabegron 25 MG TABCR PO (08:41)
[2023-09-17] MEDS: Citalopram 20 MG TAB 10 MG PO (08:41)
[2023-09-17] MEDS: Pregabalin 25 MG CAP 75 MG PO ×2 (08:41→20:52)
[2023-09-17] MEDS: Topiramate 50 MG TAB PO (08:41)
[2023-09-17] MEDS: Pantoprazole 40 MG TABCR PO (08:42)
[2023-09-17] MEDS: Finasteride 5 MG TAB PO (08:42)
[2023-09-17] MEDS: Potassium Chloride 10 MEQ CAPCR 20 MEQ PO ×3 (08:42→20:54)
[2023-09-17] MEDS: Allopurinol 300 MG TAB PO (08:43)
[2023-09-17] MEDS: amLODIPine 2.5 MG TAB PO (08:43)
[2023-09-17] MEDS: Insulin Aspart 300 UNITS/3 ML PEN SC ×3 (08:46→17:08)
[2023-09-17 08:58] LABS: Creatine Kinase > 10000 U/L (39-308)
[2023-09-17] MEDS: Insulin Glargine 300 UNITS/3 ML PEN 50 UNITS SC ×2 (09:00→20:55)
--- NOTE | 2023-09-17 09:49 | PT.INTREAT ---
PT Notes Visit Reasons: Weakness,Acute Kidney Injury,Transaminitis Inpatient Physical Therapy Treatment Note [facility] Date: 09/17/23 SUBJECTIVE:Fredo states that he wants to get better so he can go home. He has some concerns with getting into his home as he has 5 steps in, but normally enters basement and has a full flight into the living quarters. I did suggest a ramp outside but he feels it might be too tricky given the landscape. OBJECTIVE: []? PAIN: neuropathy pain in B feet which increases with wt bearing. VITALS: ?mon[place] [facility] Therapeutic Activities ([id number]): Direct one-on-one instruction in dynamic activities to improve functional performance. ? pt seated in recliner.? Sit-stand: SBA/CGA? Stand-sit: SBA? Provided skilled cues and instruction on performance and technique throughout. GAIT? Assistive Device: FWW? Weight bearing: full Assist: SBA ? Distance:? 30' + 12' + 20' ? Deviation: seated rest in btwn each walk ? Therapeutic Exercises ([id number]): Direct one-on-one instruction in therapeutic exercises to develop strength, endurance, range of motion and flexibility. ? Exercises. seated AP x15 LAQ 2x10 seated march x15 sit to stand x3. stand unsupported in mod tandem R/L x 10 sec each. Provided skilled instruction in proper exercise performance ASSESSMENT:? tolerated fair. Does well with walking but as he fatigues he wants to sit RADHA. Would be best to have wc follow. He seems motivated to exercise. PLAN: will continue to work on strength and functional mobility to tolerance following PT POC. TREATMENT CODE/TIME: 25 min this am. [id number]
--- NOTE | 2023-09-17 10:37 | PGE_ITS ---
Date of Service Date of service: 09/17/23 Time of Service: 10:37 Assessment and Plan Assessment and plan (1) Rhabdomyolysis: Status: Acute Assessment and plan: etiology now more clear, he was still on Crestor, although Victoza can cause elevation in CK levels this is <3% therefore I think more likely d/t his Crestor which also explains LFT elevation. I will add scheduled lasix as he seems to be getting volume overloaded. I have decreased his iv flud rate to NS at 100 mL but will change to LR now. I discussed case w/ [facility] [place] fellow who indicated that mangement has been appropriate so far and he advises continued iv fluids +/- diuretics to maintain urine output of >=100 mL/hr. patient has been putting out over 5 liters of urine w/out use of diuretics and creatinine has decreased to 2.1 from 3.1. He indicated that the CK could take several days to recover but would continue hydraation until CK <5000 Qualifiers: Rhabdomyolysis type: non-traumatic Qualified Code(s): M62.82 - Rhabdomyolysis (2) Elevated LFTs: Status: Acute Assessment and plan: continue to monitor levels; hepatitis and HSV were negative.no structural abnormalities on CT of his abdomen. (3) BABS (acute kidney injury): Status: Acute Assessment and plan: continues to improve creatinine now 2.1 from high of 3.1, urine output over 5 liters per day. I have decreased his iv rate and will give some lasix to restore euvolemia, correct potassium (4) Microcytic anemia: Status: Acute Assessment and plan: recent B 12 was normal at 416 (as of 08/25/23), I could not find a folate level so I have ordered this. I could not find any iron studies so I will order this as well (5) Frequent falls: Status: Acute Assessment and plan: likely d/t his rhabdomyolysis; once he recovers from his rhabdo then can resume P.T. (he had been referred to P.T. as outpatient from his recent ED visit) (6) Diabetes mellitus type 2 in obese: Status: Chronic Assessment and plan: hold Victoza, cover w/ basal/bolus insulin sliding scale (7) CAD (coronary artery disease): Status: None Assessment and plan: stable, contnue current meds (Ranexa, Toprol XL, amlodipine Qualifiers: Associated angina: with unspecified angina Coronary Disease-Associated Artery/Lesion type: [place] artery [place] vs. transplanted heart: [place] heart Qualified Code(s): I25.119 - Atherosclerotic heart disease of [place] coronary artery with unspecified angina pectoris (8) DVT prophylaxis: Status: Acute Assessment and plan: Renally dosed LMWH (9) Discharge planning issues: Status: Acute Assessment and plan: Patient remains a full code requires continued hospitalization until recovery of his renal function Subjective Subjective Interval history since last seen: Mr. Osman had large amount of BM yesterday. He continues to receive iv fluids for his rhabdomyolysis however, his bicarbonate drip was stopped yesterday d/t decline in his calcium levels. His renal function is recovering creatinine now down to 2.1 although is CK remains high at >10,000. He is still very weak. I spoke w/ his last night and he in fact was still taking Crestor right up until he presented to the E.D. Exam Narrative Exam Narrative: Fredo is still profoundly weak, has trouble pulling himself up in bed Lungs: clear anteriorly but some basilar rales Heart: regular but tachycardic Abdomen: obese, normal bowel sounds, nontender, he seems to have a fluid wave but I did beside abdominal US and he has no ascites Extremities starting to show some edema 1+ pitting Objective Last Vital Signs Temp 37.2 C 09/17/23 07:39 Pulse 87 09/17/23 07:39 Resp 18 09/17/23 07:39 BP 134/70 09/17/23 07:39 Pulse Ox 97 09/17/23 07:39 Laboratory Results - last 24 hr 09/15/23 09/16/23 09/16/23 07:00 00:00 11:11 WBC RBC Hgb Hct MCV MCH MCHC RDW Plt Count MPV Immature Gran % Neutrophils % Lymphocytes % Monocytes % Eosinophils % Basophils % Nucleated RBC % Absolute Neutrophils Absolute Lymphocytes Absolute Monocytes Absolute Eosinophils Absolute Basophils VBG pH VBG pCO2 VBG pO2 VBG HCO3 VBG Total CO2 VBG O2 Saturation VBG Base Excess Sodium Potassium Chloride Carbon Dioxide Anion Gap BUN Creatinine Est GFR (CKD-EPI 2020) Glucose Calcium Total Bilirubin AST ALT Alkaline Phosphatase Creatine Kinase Total Protein Albumin Urine Color Yellow Yellow Urine Clarity Clear Clear Urine pH 8.5 H 8.5 H Ur Specific [place] 1.015 1.015 Urine Protein 100 H 100 H Urine Ketones Negative Negative Urine Blood Large H Large H Urine Nitrite Negative Negative Urine Bilirubin Negative Negative Urine Urobilinogen 0.2 0.2 Ur Leukocyte Esterase Negative Trace H Urine RBC 10-20 H 20-50 H Urine WBC 0-2 0-2 Ur Epithelial Cells Negative Negative Urine Crystals Negative Negative Urine Bacteria Rare Few Urine Casts Negative Negative Urine Mucus Negative Trace Urine Other Negative Ur Culture Indicated? No No Urine Glucose Negative 100 H NIRAJ Titer Not Applicable NIRAJ Titer 2 Not Applicable NIRAJ Titer 3 Not Applicable NIRAJ Interpretation Negative Add-On Test Request 09/16/23 09/16/23 09/16/23 14:15 18:00 19:35 WBC RBC Hgb Hct MCV MCH MCHC RDW Plt Count MPV Immature Gran % Neutrophils % Lymphocytes % Monocytes % Eosinophils % Basophils % Nucleated RBC % Absolute Neutrophils Absolute Lymphocytes Absolute Monocytes Absolute Eosinophils Absolute Basophils VBG pH 7.40 7.37 VBG pCO2 51 55 H VBG pO2 41 29 VBG HCO3 32 H 31 H VBG Total CO2 30 H 29 VBG O2 Saturation 81 56 VBG Base Excess 7 H 6 H Sodium 143 144 Potassium 3.2 L 3.4 L Chloride 104 103 Carbon Dioxide 32.9 H 31.4 Anion Gap 6.1 9.6 BUN 28 H 26 H Creatinine 2.5 H 2.4 H Est GFR (CKD-EPI 2020) 26.30 27.62 Glucose 254 H 237 H Calcium 6.9 L 7.2 L Total Bilirubin AST ALT Alkaline Phosphatase Creatine Kinase > 69763 H Total Protein Albumin Urine Color [place] Urine Clarity Clear Urine pH 8.5 H Ur Specific [place] 1.015 Urine Protein 30 H Urine Ketones Negative Urine Blood Large H Urine Nitrite Negative Urine Bilirubin Negative Urine Urobilinogen 0.2 Ur Leukocyte Esterase Negative Urine RBC 20-50 H Urine WBC 0-2 Ur Epithelial Cells Negative Urine Crystals Negative Urine Bacteria Negative Urine Casts Urine Mucus Negative Urine Other Ur Culture Indicated? No Urine Glucose Negative NIRAJ Titer NIRAJ Titer 2 NIRAJ Titer 3 NIRAJ Interpretation Add-On Test Request 09/17/23 09/17/23 09/17/23 00:15 06:00 06:00 WBC 5.44 RBC 3.44 L Hgb 10.2 L Hct 30.6 L MCV 89 MCH 29.7 MCHC 33.3 RDW 15.5 H Plt Count 154 MPV 9.0 Immature Gran % 0.4 Neutrophils % 65.7 Lymphocytes % 16.4 Monocytes % 12.9 Eosinophils % 3.7 Basophils % 0.9 Nucleated RBC % 0.0 Absolute Neutrophils 3.58 Absolute Lymphocytes 0.89 L Absolute Monocytes 0.70 Absolute Eosinophils 0.20 Absolute Basophils 0.05 VBG pH 7.45 H 7.37 VBG pCO2 40 L 49 VBG pO2 78 42 VBG HCO3 28 28 VBG Total CO2 26 26 VBG O2 Saturation 96 78 VBG Base Excess 4 H 3 Sodium 141 144 Cancelled Potassium 3.4 L 3.3 L Chloride 105 Carbon Dioxide 28.0 Anion Gap 8.0 BUN 26 H Creatinine 2.1 H Est GFR (CKD-EPI 2020) 32.42 Glucose 289 H Calcium 6.5 L Total Bilirubin AST ALT Alkaline Phosphatase Creatine Kinase Total Protein Albumin Urine Color Urine Clarity Urine pH Ur Specific [place] Urine Protein Urine Ketones Urine Blood Urine Nitrite Urine Bilirubin Urine Urobilinogen Ur Leukocyte Esterase Urine RBC Urine WBC Ur Epithelial Cells Urine Crystals Urine Bacteria Urine Casts Urine Mucus Urine Other Ur Culture Indicated? Urine Glucose NIRAJ Titer NIRAJ Titer 2 NIRAJ Titer 3 NIRAJ Interpretation Add-On Test Request 09/17/23 09/17/23 09/17/23 06:00 06:00 06:00 WBC RBC Hgb Hct MCV MCH MCHC RDW Plt Count MPV Immature Gran % Neutrophils % Lymphocytes % Monocytes % Eosinophils % Basophils % Nucleated RBC % Absolute Neutrophils Absolute Lymphocytes Absolute Monocytes Absolute Eosinophils Absolute Basophils VBG pH VBG pCO2 VBG pO2 VBG HCO3 VBG Total CO2 VBG O2 Saturation VBG Base Excess Sodium Potassium Cancelled Chloride 108 H Cancelled Carbon Dioxide 28.5 Cancelled Anion Gap 7.5 BUN Creatinine Est GFR (CKD-EPI 2020) Glucose Calcium Total Bilirubin AST ALT Alkaline Phosphatase Creatine Kinase Total Protein Albumin Urine Color Urine Clarity Urine pH Ur Specific [place] Urine Protein Urine Ketones Urine Blood Urine Nitrite Urine Bilirubin Urine Urobilinogen Ur Leukocyte Esterase Urine RBC Urine WBC Ur Epithelial Cells Urine Crystals Urine Bacteria Urine Casts Urine Mucus Urine Other Ur Culture Indicated? Urine Glucose NIRAJ Titer NIRAJ Titer 2 NIRAJ Titer 3 NIRAJ Interpretation Add-On Test Request 09/17/23 09/17/23 09/17/23 06:00 06:00 06:00 WBC RBC Hgb Hct MCV MCH MCHC RDW Plt Count MPV Immature Gran % Neutrophils % Lymphocytes % Monocytes % Eosinophils % Basophils % Nucleated RBC % Absolute Neutrophils Absolute Lymphocytes Absolute Monocytes Absolute Eosinophils Absolute Basophils VBG pH VBG pCO2 VBG pO2 VBG HCO3 VBG Total CO2 VBG O2 Saturation VBG Base Excess Sodium Potassium Chloride Carbon Dioxide Anion Gap Cancelled BUN 25 H Cancelled Creatinine 2.1 H Cancelled Est GFR (CKD-EPI 2020) 32.42 Glucose Calcium Total Bilirubin AST ALT Alkaline Phosphatase Creatine Kinase Total Protein Albumin Urine Color Urine Clarity Urine pH Ur Specific [place] Urine Protein Urine Ketones Urine Blood Urine Nitrite Urine Bilirubin Urine Urobilinogen Ur Leukocyte Esterase Urine RBC Urine WBC Ur Epithelial Cells Urine Crystals Urine Bacteria Urine Casts Urine Mucus Urine Other Ur Culture Indicated? Urine Glucose NIRAJ Titer NIRAJ Titer 2 NIRAJ Titer 3 NIRAJ Interpretation Add-On Test Request 09/17/23 09/17/23 09/17/23 06:00 06:00 06:00 WBC RBC Hgb Hct MCV MCH MCHC RDW Plt Count MPV Immature Gran % Neutrophils % Lymphocytes % Monocytes % Eosinophils % Basophils % Nucleated RBC % Absolute Neutrophils Absolute Lymphocytes Absolute Monocytes Absolute Eosinophils Absolute Basophils VBG pH VBG pCO2 VBG pO2 VBG HCO3 VBG Total CO2 VBG O2 Saturation VBG Base Excess Sodium Potassium Chloride Carbon Dioxide Anion Gap BUN Creatinine Est GFR (CKD-EPI 2020) Cancelled Glucose 221 H Cancelled Calcium 6.8 L Cancelled Total Bilirubin 0.2 AST 278 H ALT 234 H Alkaline Phosphatase 61 Creatine Kinase > 81486 H Total Protein 5.3 L Albumin 2.5 L Urine Color Urine Clarity Urine pH Ur Specific [place] Urine Protein Urine Ketones Urine Blood Urine Nitrite Urine Bilirubin Urine Urobilinogen Ur Leukocyte Esterase Urine RBC Urine WBC Ur Epithelial Cells Urine Crystals Urine Bacteria Urine Casts Urine Mucus Urine Other Ur Culture Indicated? Urine Glucose NIRAJ Titer NIRAJ Titer 2 NIRAJ Titer 3 NIRAJ Interpretation Add-On Test Request DONE 09/17/23 06:03 WBC RBC Hgb Hct MCV MCH MCHC RDW Plt Count MPV Immature Gran % Neutrophils % Lymphocytes % Monocytes % Eosinophils % Basophils % Nucleated RBC % Absolute Neutrophils Absolute Lymphocytes Absolute Monocytes Absolute Eosinophils Absolute Basophils VBG pH VBG pCO2 VBG pO2 VBG HCO3 VBG Total CO2 VBG O2 Saturation VBG Base Excess Sodium Potassium Chloride Carbon Dioxide Anion Gap BUN Creatinine Est GFR (CKD-EPI 2020) Glucose Calcium Total Bilirubin AST ALT Alkaline Phosphatase Creatine Kinase Total Protein Albumin Urine Color Yellow Urine Clarity Clear Urine pH 8.5 H Ur Specific [place] 1.015 Urine Protein 100 H Urine Ketones Negative Urine Blood Large H Urine Nitrite Negative Urine Bilirubin Negative Urine Urobilinogen 0.2 Ur Leukocyte Esterase Trace H Urine RBC 20-50 H Urine WBC 0-2 Ur Epithelial Cells Rare Urine Crystals Negative Urine Bacteria Negative Urine Casts 0-2 Hyaline Urine Mucus Negative Urine Other Ur Culture Indicated? Yes Urine Glucose Negative NIRAJ Titer NIRAJ Titer 2 NIRAJ Titer 3 NIRAJ Interpretation Add-On Test Request Time Spent with Patient Time Spent with Patient: >50 minutes Time was spent: preparing to see the patient(eg.review tests), ordering medications,tests, procedures, referring, communicating with other health care clinician (discussed / [facility] fellow), indepentently interpreting results, counseling the patient and care coordination
[2023-09-17 11:21] LABS: Lab Add On Test DONE
--- NOTE | 2023-09-17 11:34 | CMPROGNOTE_ITS ---
Date of service: 09/17/23 Time of Service: 11:35 Care Management Progress Note Progress Note Text Progress Note Text: S/O: Fredo was lying in bed when CM met with him. His , Madiha, was in the room visiting. Fredo stated that he isn't feeling well today. Madiha reported that per MD, [facility] was being consulted for medication management, as he stated that one of his medications may have contributed to his fall and rhabdomyolysis. Per MD, [facility] was consulted, and feel that he should remain at [facility]. CM discussed recommendations for discharge, and both Fredo and Madiha feel that Fredo would benefit from short term rehab, and asked that a referral is sent to [facility], as they want him to remain close to home. CM will send the referral, and will continue to follow. A: Fredo is a 73 year old male admitted to [facility] on 09/14/23 with weakness, rhabdo, BABS, transaminitis. P: Fredo will return home when ready per MD. His son will transport him home via private vehicle when ready. He will have new home health orders for PT and follow up with his PCP and plan of care. CM continues to follow. SDOH(Care Management) Screening Will the Patient Participate in the Screening?: Yes Do you worry about having a steady place to live?: no In the past 12 months, have you had to go without electric, gas, oil or water in your home?: no Have you or anyone in your house had to go without enough food to eat?: no Has lack of transportation kept you from medical appointments or from doing t hings needed for daily living?: no Has anyone in your support network made you feel unsafe for any reason?: no
[2023-09-17] MEDS: Docusate Sodium 100 MG CAP PO ×3 (12:02→20:54)
[2023-09-17] MEDS: Furosemide 40 MG/4 ML VIAL IVP ×2 (12:02→20:54)
[2023-09-17 12:46] LABS: Iron 53 ug/dL (65-175); Total Iron Binding Capacity 229 ug/dL (250-450); Transferrin Sat 23 % (20-55)
[2023-09-17 12:52] LABS: Procalcitonin < 0.1 ng/mL
[2023-09-17 12:59] LABS: Ferritin 108 ng/mL (26-388)
[2023-09-17 13:03] LABS: Folate > 20.0 ng/mL (8.6-20.0)
[2023-09-17] MEDS: Acetaminophen 500 MG TAB 1000 MG PO (14:17)
--- NOTE | 2023-09-17 15:13 | DI.RAD_ITS ---
Exam(s) XR PORTABLE CHEST AP EXAM: XR PORTABLE CHEST AP CLINICAL HISTORY: fever TECHNIQUE: 2D digital imaging was performed. COMPARISON: CR XR CHEST 1V IN DI DEPT from 09/14/2023 FINDINGS: Exam is limited by poor centering and under penetration. LUNGS: Clear. No pleural abnormality seen. HEART: Heart size within normal limits for projection. Status post CABG. AORTA: Normal diameter. BONES: Sternal wires. Spine mainly obscured. Soft tissues: Unremarkable. IMPRESSION: No acute findings. DATA REPOSITORY: RADIATION DOSE DELIVERED:
--- NOTE | 2023-09-17 16:35 | PT.INTREAT ---
PT Notes Visit Reasons: Weakness,Acute Kidney Injury,Transaminitis Date: 09/17/23 PRECAUTIONS: Fall. Standard. Activity as tolerated. SUBJECTIVE: Pt in recliner when approached for therapy this afternoon, pt agreed to participate with therapy session OBJECTIVE: Coello catheter in place. Antecubital IV line LUE ? PAIN: BLE on weight bearing VITALS: closely monitored by nurse ? Therapeutic Activities [id number]: Direct one-on-one instruction in dynamic activities to improve functional performance. ?? BED MOBILITY/TRANSFERS? Rolling L/R: min A Supine-sit: ?min A ? Sit-supine: ? SBA? Sit-stand: ? ?min A? Stand-sit: ?? min A? Bed-Chair:? CGA? Chair-bed: CGA Provided skilled cues and instruction on performance and technique throughout. Gait Training [id number]: Direct one-on-one instruction and skilled instruction in: Employing an assistive device Modified weight-bearing status Movement sequencing Turning and movement with proper form Provided verbal cues for equipment management and technique Provided instruction in gait pattern Patient education regarding pacing and breathing techniques to maximize activity tolerance? GAIT? Assistive Device: ??FWW ? Weight bearing: FWB Assist: ?CGA ? Pole management, WC follow? Distance:?? 70'x1 seated rest break in between distances? Deviation: ?Stoop forward, shuffling gait ? Stairs: Step to gait pattern Bilateral handrail 6x2, 4x3 taking seated rest break in between step height change. ? ASSESSMENT:?pt requires rest break everytime pt transitions to a different actovoty due to fatigue. pt happy he was able to try the stairs and is looking forward to doing some more tomorrow. PLAN: Continue with balance training, global strengthening and general conditioning for improved safety, mobility and activity tolerance until pt is ready for DC. TREATMENT CODE/TIME: [id number] 30mins (2:40-3:10pm)
[2023-09-17] MEDS: traMADol 50 MG TAB PO ×2 (17:07→20:51)
[2023-09-17 18:45] LABS: Homocysteine 9.5 umol/L (5.0-13.9)
[2023-09-17 19:19] LABS: Anion Gap 10.6 mmol/L (3-11); BUN 25 mg/dL (7-18); CO2 25.4 mmol/L (21.0-32.0); CREATININE 1.9 mg/dL (0.70-1.30); Calcium 7.4 mg/dL (8.5-10.1); Chloride 107 mmol/L (98-107); Estimated GFR 36.56 (mL/min/1.73m2); Glucose 253 mg/dL (74-106); Potassium 3.5 mmol/L (3.5-5.1); Sodium 143 mmol/L (136-145)
[2023-09-17 19:37] LABS: Creatine Kinase > 10000 U/L (39-308)
[2023-09-17] MEDS: Metoprolol CR 50 MG TABCR PO (20:51)
[2023-09-17] MEDS: Isosorbide Mononitrate 30 MG TABCR 90 MG PO (20:52)
[2023-09-17] MEDS: Topiramate 25 MG TAB PO (20:52)
[2023-09-17] MEDS: Senna TAB 1 TAB PO (20:52)
[2023-09-17] MEDS: Enoxaparin 40 MG/0.4 ML SYR SC (20:55)
[2023-09-17] MEDS: QUEtiapine 300 MG TAB PO (23:16)
[2023-09-18] VITALS (8 sets, daily range): BP systolic 114–142; BP diastolic 63–87; PULSE 90–99; RESP 18–20; TEMP 36–36.9; O2SAT 95–98
[2023-09-18] MEDS: Lactated Ringers 1,000 ML 100 ML IV ×3 (00:10→20:31)
[2023-09-18] MEDS: Levothyroxine 50 MCG TAB PO (06:06)
[2023-09-18 07:15] LABS: ALT 241 U/L (16-63); AST 223 U/L (15-37); Albumin 2.7 g/dL (3.4-5.0); Alkaline Phosphatase 63 U/L (46-116); Anion Gap 11.3 mmol/L (3-11); BUN 24 mg/dL (7-18); Bilirubin, Total 0.3 mg/dL (0.2-1.0); CO2 25.7 mmol/L (21.0-32.0); CREATININE 1.8 mg/dL (0.70-1.30); Calcium 7.3 mg/dL (8.5-10.1); Chloride 107 mmol/L (98-107); Estimated GFR 39.01 (mL/min/1.73m2); Glucose 115 mg/dL (74-106); Potassium 3.3 mmol/L (3.5-5.1); Sodium 144 mmol/L (136-145); Total Protein 5.8 g/dL (6.4-8.2)
[2023-09-18 07:34] LABS: Creatine Kinase > 10000 U/L (39-308)
[2023-09-18] MEDS: amLODIPine 2.5 MG TAB PO (08:06)
[2023-09-18] MEDS: Topiramate 50 MG TAB PO (08:06)
[2023-09-18] MEDS: Polyethylene Glycol 3350 17 GM PACKET PO (08:06)
[2023-09-18] MEDS: Mirabegron 25 MG TABCR PO (08:07)
[2023-09-18] MEDS: Allopurinol 300 MG TAB PO (08:07)
[2023-09-18] MEDS: Citalopram 20 MG TAB 10 MG PO (08:07)
[2023-09-18] MEDS: Pantoprazole 40 MG TABCR PO (08:07)
[2023-09-18] MEDS: Docusate Sodium 100 MG CAP PO ×3 (08:07→20:12)
[2023-09-18] MEDS: Pregabalin 25 MG CAP 75 MG PO ×2 (08:07→20:08)
[2023-09-18] MEDS: Finasteride 5 MG TAB PO (08:07)
[2023-09-18] MEDS: Insulin Glargine 300 UNITS/3 ML PEN 50 UNITS SC ×2 (08:08→20:09)
[2023-09-18] MEDS: Potassium Chloride 10 MEQ CAPCR 20 MEQ PO ×4 (11:48→20:06)
[2023-09-18] MEDS: Furosemide 40 MG/4 ML VIAL IVP ×2 (11:58→17:05)
[2023-09-18] MEDS: Normal Saline Flush 10 ML SYR IVP (12:00)
[2023-09-18] MEDS: Insulin Aspart 300 UNITS/3 ML PEN SC ×2 (12:04→17:32)
[2023-09-18] MEDS: traMADol 50 MG TAB PO (13:13)
--- NOTE | 2023-09-18 13:19 | PT.INTREAT ---
Date of service: 09/18/23 Time of Service: 10:25 PT Notes Visit Reasons: Weakness,Acute Kidney Injury,Transaminitis Inpatient Physical Therapy Treatment Note [facility] Date: 09/18/2023 PRECAUTIONS:Fall, Standard and Activities as tolerated SUBJECTIVE: Indicated he has to be able to go up/ down 7 steps to go home. OBJECTIVE: ? PAIN: Did not complain of pain today, but did report legs being very tired when first beginning to walk in hallway. Therapeutic Activities ([id number]): Direct one-on-one instruction in dynamic activities to improve functional performance. ? BED MOBILITY/TRANSFERS? Up in chair when I arrived? Sit-stand: SBA, verbal reminder to use arms of chair to push himself up into standing ? Stand-sit: SBA?, verbal reminder to use arms of chair to avoid chair moving out from under him when he goes to sit. ? Provided skilled cues and instruction on performance and technique throughout? GAIT? Assistive Device: FWW ? Weight bearing: Full Assist: CGA, ? Pole management, W/C follow? Distance:? 100ft, short seated rest at 50ft ? Deviation: Forward flexed at hips and shuffling gait? STAIRS: Able to go up and down 8 6 inch steps without a seated rest break until performed all 8 steps.?Verbal cueing given for step to patterning and assist with IV pole and catheter bag.? ASSESSMENT:? Fredo was very excited to have been able to do all 8 steps without taking a break today. PLAN: Continue to focus on improved functional mobility for safe discharge to home when medically able. Continue with supervising PT's POC. TREATMENT CODE/TIME: [id number], 10:25 to 10:50 (25')
--- NOTE | 2023-09-18 16:22 | PGE_ITS ---
Date of Service Date of service: 09/18/23 Time of Service: 16:22 Assessment and Plan Assessment and plan (1) Rhabdomyolysis: Status: Acute Assessment and plan: Patient continues to show improvement he is now showing clinical signs of improvement strength as he is now able to climb stairs with some assistance. Whereas before he was unable to even get out of bed or even feed himself. CK remains greater than 10,000 we will continue to monitor on daily basis continue to give him IV fluid hydration but also given him some Lasix to prevent volume overload. Will continue with IV hydration until his CK is below 5000 Professional time spent interviewing and examining patient, discussion of goals of care with hospital team (care management, nursing and consulting valeria hernandez) was 30 minutes. Qualifiers: Rhabdomyolysis type: non-traumatic Qualified Code(s): M62.82 - Rhabdomyolysis (2) Elevated LFTs: Status: Acute Assessment and plan: LFTs continue to improve gradually. AST down to 223, ALT 241 normal total bilirubin 0.3 (3) BABS (acute kidney injury): Status: Acute Assessment and plan: Renal function continues to improve creatinine is down to 1.8 and BUN is 24. Potassium is low at 3.3 and is currently receiving oral replacement. Patient continues to exhibit good urine output. He put out 9.1 L of urine output yesterday and so far is at 3100 today. (4) Microcytic anemia: Status: Acute Assessment and plan: recent B 12 was normal at 416 (as of 08/25/23), I could not find a folate level so I have ordered this. I could not find any iron studies so I will order this as well (5) Frequent falls: Status: Acute Assessment and plan: likely d/t his rhabdomyolysis; once he recovers from his rhabdo then can resume P.T. (he had been referred to P.T. as outpatient from his recent ED visit), patient continues to work with inpatient physical therapy and is showing some gradual improvement. (6) Diabetes mellitus type 2 in obese: Status: Chronic Assessment and plan: hold Victoza, cover w/ basal/bolus insulin sliding scale (7) CAD (coronary artery disease): Status: None Assessment and plan: stable, contnue current meds (Ranexa, Toprol XL, amlodipine, upon discharge patient should never go back on his statin for preventative treatment of his coronary disease. Consideration should be given for [place] Qualifiers: Coronary Disease-Associated Artery/Lesion type: [place] artery [place] vs. transplanted heart: [place] heart Associated angina: with unspecified angina Qualified Code(s): I25.119 - Atherosclerotic heart disease of [place] coronary artery with unspecified angina pectoris (8) DVT prophylaxis: Status: Acute Assessment and plan: Renally dosed LMWH (9) Discharge planning issues: Status: Acute Assessment and plan: Patient remains a full code requires continued hospitalization until recovery of his renal function Subjective Subjective Interval history since last seen: Fredo says that his weakness is improving. He was able to do the stairs today for P.T. I explained to him that his renal function continues to improve but his CK levels are still too high to stop the iv fluids and the lasix. Exam Narrative Exam Narrative: Fredo was seen while sitting on the commode he is try to have another bowel movement. He is alert and oriented x 3 no acute distress. Lungs are clear Heart is regular Abdomen is obese soft and nontender slightly distended with normoactive bowel sounds Lower extremities with just a trace of pitting edema over the feet and ankles and lower tibia there is no arm edema. Objective Last Vital Signs Temp 36.9 C 09/18/23 15:45 Pulse 93 H 09/18/23 15:45 Resp 20 09/18/23 15:45 BP 137/79 09/18/23 15:45 Pulse Ox 98 09/18/23 15:45 Laboratory Results - last 24 hr 09/17/23 09/18/23 18:45 06:25 Sodium 143 144 Potassium 3.5 3.3 L Chloride 107 107 Carbon Dioxide 25.4 25.7 Anion Gap 10.6 11.3 H BUN 25 H 24 H Creatinine 1.9 H 1.8 H Est GFR (CKD-EPI 2020) 36.56 39.01 Glucose 253 H 115 H Calcium 7.4 L 7.3 L Total Bilirubin 0.3 AST 223 H ALT 241 H Alkaline Phosphatase 63 Creatine Kinase > 53729 H > 13558 H Total Protein 5.8 L Albumin 2.7 L Time Spent with Patient Time Spent with Patient: 25-34 minutes Time was spent: preparing to see the patient(eg.review tests), ordering medications,tests, procedures, referring, communicating with other health senior care specialist (Discussed during team meeting with care management, nursing counselor supervisor, charge nurse), indepentently interpreting results, counseling the patient and care coordination
[2023-09-18] MEDS: Topiramate 25 MG TAB PO (20:06)
[2023-09-18] MEDS: Isosorbide Mononitrate 30 MG TABCR 90 MG PO (20:07)
[2023-09-18] MEDS: Senna TAB 1 TAB PO (20:07)
[2023-09-18] MEDS: Metoprolol CR 50 MG TABCR PO (20:09)
[2023-09-18] MEDS: Enoxaparin 40 MG/0.4 ML SYR SC (20:10)
[2023-09-18] MEDS: QUEtiapine 300 MG TAB PO (22:15)
[2023-09-19 03:35] VITALS: BP 110/65; PULSE 92; RESP 18; TEMP 36.3; O2SAT 96
[2023-09-19] MEDS: Levothyroxine 50 MCG TAB PO (05:46)
[2023-09-19 07:57] VITALS: BP 122/78; PULSE 94; RESP 17; TEMP 36.8; O2SAT 96
[2023-09-19 07:59] LABS: Magnesium 1.4 mg/dL (1.8-2.4)
[2023-09-19 08:06] LABS: Anion Gap 9.2 mmol/L (3-11); BUN 31 mg/dL (7-18); CO2 26.8 mmol/L (21.0-32.0); CREATININE 1.8 mg/dL (0.70-1.30); Calcium 7.7 mg/dL (8.5-10.1); Chloride 106 mmol/L (98-107); Estimated GFR 39.01 (mL/min/1.73m2); Glucose 134 mg/dL (74-106); Potassium 3.2 mmol/L (3.5-5.1); Sodium 142 mmol/L (136-145)
[2023-09-19] MEDS: Polyethylene Glycol 3350 17 GM PACKET PO (08:07)
[2023-09-19] MEDS: Insulin Glargine 300 UNITS/3 ML PEN 50 UNITS SC ×2 (08:07→19:59)
[2023-09-19] MEDS: Docusate Sodium 100 MG CAP PO ×3 (08:08→20:00)
[2023-09-19] MEDS: Mirabegron 25 MG TABCR PO (08:08)
[2023-09-19] MEDS: Potassium Chloride 10 MEQ CAPCR 20 MEQ PO ×2 (08:08→12:02)
[2023-09-19] MEDS: Pregabalin 25 MG CAP 75 MG PO ×2 (08:08→20:00)
[2023-09-19] MEDS: Topiramate 50 MG TAB PO (08:08)
[2023-09-19] MEDS: Finasteride 5 MG TAB PO (08:08)
[2023-09-19] MEDS: Furosemide 40 MG/4 ML VIAL IVP ×2 (08:08→15:20)
[2023-09-19] MEDS: Citalopram 20 MG TAB 10 MG PO (08:08)
[2023-09-19] MEDS: Normal Saline Flush 10 ML SYR IVP (08:09)
[2023-09-19] MEDS: Allopurinol 300 MG TAB PO (08:09)
[2023-09-19] MEDS: amLODIPine 2.5 MG TAB PO (08:09)
[2023-09-19] MEDS: Pantoprazole 40 MG TABCR PO (08:09)
[2023-09-19 08:12] LABS: Creatine Kinase 5503 U/L (39-308)
[2023-09-19] MEDS: Magnesium Oxide 400 MG TAB PO ×2 (09:15→20:00)
[2023-09-19] MEDS: MAGNESIUM SULFATE 2 GM/50 ML BAG IVPB (09:15)
[2023-09-19] MEDS: Lactated Ringers 1,000 ML 100 ML IV ×2 (09:15→19:58)
[2023-09-19] MEDS: Insulin Aspart 300 UNITS/3 ML PEN SC ×2 (11:59→17:01)
[2023-09-19 12:13] VITALS: BP 140/79; PULSE 97; RESP 19; TEMP 36.7; O2SAT 98
--- NOTE | 2023-09-19 15:05 | W.PM.PROGNOT ---
Date of Service Date of service: 09/19/23 Time of Service: 15:05 Assessment and Plan Assessment and plan (1) Rhabdomyolysis: Status: Acute Assessment and plan: Patient is finally showing improvement he is able to get out of bed sit up in a chair without assistance. CK has come down to 5500 Creatinine is 1.8 potassium remains low at 3.2 and magnesium is low at 1.4 both are being supplemented.. Continue IV fluids and IV Lasix continue to monitor daily CK levels and BMP and LFTs Professional time spent interviewing and examining patient, discussion of goals of care with hospital team (care management, nursing and consulting professionals) was 30 minutes. Qualifiers: Rhabdomyolysis type: non-traumatic Qualified Code(s): M62.82 - Rhabdomyolysis (2) Elevated LFTs: Status: Acute Assessment and plan: No LFTs were checked today we will repeat them tomorrow (3) BABS (acute kidney injury): Status: Acute Assessment and plan: Renal function continues to improve creatinine is down to 1.8 and BUN is 24. Potassium is low at 3.3 and is currently receiving oral replacement. Patient continues to exhibit good urine output. He put out 9.1 L of urine output yesterday and so far is at 3100 today. (4) Microcytic anemia: Status: Acute Assessment and plan: recent B 12 was normal at 416 (as of 08/25/23), I could not find a folate level so I have ordered this. I could not find any iron studies so I will order this as well (5) Frequent falls: Status: Acute Assessment and plan: likely d/t his rhabdomyolysis; once he recovers from his rhabdo then can resume P.T. (he had been referred to P.T. as outpatient from his recent ED visit), patient continues to work with inpatient physical therapy and is showing some gradual improvement. (6) Diabetes mellitus type 2 in obese: Status: Chronic Assessment and plan: hold Victoza, cover w/ basal/bolus insulin sliding scale (7) CAD (coronary artery disease): Status: None Assessment and plan: stable, contnue current meds (Ranexa, Toprol XL, amlodipine, upon discharge patient should never go back on his statin for preventative treatment of his coronary disease. Consideration should be given for Repatha Qualifiers: Coronary Disease-Associated Artery/Lesion type: [place] artery [place] vs. transplanted heart: [place] heart Associated angina: with unspecified angina Qualified Code(s): I25.119 - Atherosclerotic heart disease of [place] coronary artery with unspecified angina pectoris (8) DVT prophylaxis: Status: Acute Assessment and plan: Renally dosed LMWH (9) Discharge planning issues: Status: Acute Assessment and plan: Patient remains a full code requires continued hospitalization until recovery of his renal function Subjective Subjective Interval history since last seen: Fredo is finally starting a strength back he is feeling better not having any muscle pains. CK is finally come down to 5500. Creatinine is below 2. Exam Narrative Exam Narrative: Patient is alert and oriented sitting up in his chair talking with his no acute distress Lungs are clear Heart is regular rate and rhythm Abdomen is obese soft and nontender Lower extremities 1+ pitting edema Coello catheter draining clear yellow urine Good urine output he had 5400 mL yesterday today's at 2200 mL. Objective Last Vital Signs Temp 36.7 C 09/19/23 12:13 Pulse 97 H 09/19/23 12:13 Resp 19 09/19/23 12:13 BP 140/79 09/19/23 12:13 Pulse Ox 98 09/19/23 12:13 Laboratory Results - last 24 hr 09/19/23 06:30 Sodium 142 Potassium 3.2 L Chloride 106 Carbon Dioxide 26.8 Anion Gap 9.2 BUN 31 H Creatinine 1.8 H Est GFR (CKD-EPI 2020) 39.01 Glucose 134 H Calcium 7.7 L Magnesium 1.4 L Creatine Kinase 5503 H Time Spent with Patient Time Spent with Patient: 25-34 minutes Time was spent: preparing to see the patient(eg.review tests), ordering medications,tests, procedures, referring, communicating with other health physician locums urgent care, indepentently interpreting results, counseling the patient (Including his ) and care coordination
[2023-09-19] MEDS: Potassium Chloride 10 MEQ CAPCR 40 MEQ PO (15:20)
[2023-09-19 16:39] VITALS: BP 137/75; PULSE 92; RESP 18; TEMP 36.6; O2SAT 98
[2023-09-19] MEDS: Potassium Chloride 20 MEQ TABCR PO (20:00)
[2023-09-19] MEDS: Senna TAB 1 TAB PO (20:00)
[2023-09-19] MEDS: Enoxaparin 40 MG/0.4 ML SYR SC (20:01)
[2023-09-19 20:05] VITALS: BP 148/75; PULSE 103; RESP 18; TEMP 37; O2SAT 97
[2023-09-19] MEDS: Isosorbide Mononitrate 30 MG TABCR 90 MG PO (20:05)
[2023-09-19] MEDS: Metoprolol CR 50 MG TABCR PO (20:05)
[2023-09-19] MEDS: Topiramate 25 MG TAB PO (20:05)
[2023-09-19] MEDS: QUEtiapine 300 MG TAB PO (22:24)
[2023-09-19 23:24] VITALS: BP 107/53; PULSE 90; RESP 18; TEMP 36.2; O2SAT 95
[2023-09-20 03:48] VITALS: BP 137/68; PULSE 94; RESP 18; TEMP 36.8; O2SAT 100
[2023-09-20] MEDS: Levothyroxine 50 MCG TAB PO (06:12)
[2023-09-20] MEDS: Lactated Ringers 1,000 ML 100 ML IV (06:12)
[2023-09-20 07:01] LABS: Abs Immature Grans 0.02 10^3/uL (0.0-0.06); Absolute Basophil Count 0.06 10^3/uL (0.0-0.2); Absolute Eosinophil Count 0.24 10^3/uL (0.0-0.7); Absolute Lymphocyte Count 1.03 10^3/uL (1.2-3.4); Absolute Monocyte Count 0.68 10^3/uL (0.1-0.8); Absolute Neutrophil Count 3.06 10^3/uL (1.2-6.7); Basophils % 1.2; Eosinophils % 4.7; HCT 31.1 % (40.0-50.0); HGB 10.3 g/dL (13.5-17.5); Immature Grans % 0.4; Lymphocytes % 20.2; MCH 29.3 pg (27.0-33.0); MCHC 33.1 % (32.0-36.0); MCV 88 fL (80-95); Monocytes % 13.4; Neutrophils % 60.1; Platelet Count 168 10^3/uL (130-400); RBC 3.52 10^6/uL (4.36-5.78); RDW 15.4 % (11.8-14.1); RDW-SD 49.1 fL; WBC 5.09 10^3/uL (4.4-10.8)
[2023-09-20 07:24] LABS: Magnesium 1.7 mg/dL (1.8-2.4)
[2023-09-20 07:30] LABS: ALT 176 U/L (16-63); AST 76 U/L (15-37); Albumin 2.8 g/dL (3.4-5.0); Alkaline Phosphatase 70 U/L (46-116); Bilirubin, Direct 0.1 mg/dL (0.0-0.2); Bilirubin, Total 0.2 mg/dL (0.2-1.0); Total Protein 5.8 g/dL (6.4-8.2)
[2023-09-20 07:38] LABS: Anion Gap 11.6 mmol/L (3-11); BUN 31 mg/dL (7-18); CO2 24.4 mmol/L (21.0-32.0); CREATININE 1.8 mg/dL (0.70-1.30); Calcium 7.8 mg/dL (8.5-10.1); Chloride 108 mmol/L (98-107); Estimated GFR 39.01 (mL/min/1.73m2); Glucose 157 mg/dL (74-106); Potassium 3.6 mmol/L (3.5-5.1); Sodium 144 mmol/L (136-145)
[2023-09-20 07:39] LABS: Creatine Kinase 2656 U/L (39-308)
[2023-09-20] MEDS: Polyethylene Glycol 3350 17 GM PACKET PO (07:45)
[2023-09-20] MEDS: Topiramate 50 MG TAB PO (07:45)
[2023-09-20] MEDS: Finasteride 5 MG TAB PO (07:46)
[2023-09-20] MEDS: Docusate Sodium 100 MG CAP PO (07:46)
[2023-09-20] MEDS: Magnesium Oxide 400 MG TAB PO (07:46)
[2023-09-20] MEDS: amLODIPine 2.5 MG TAB PO (07:46)
[2023-09-20] MEDS: Mirabegron 25 MG TABCR PO (07:46)
[2023-09-20] MEDS: Pantoprazole 40 MG TABCR PO (07:46)
[2023-09-20] MEDS: Pregabalin 25 MG CAP 75 MG PO (07:46)
[2023-09-20] MEDS: Allopurinol 300 MG TAB PO (07:47)
[2023-09-20] MEDS: Citalopram 20 MG TAB 10 MG PO (07:47)
[2023-09-20] MEDS: Potassium Chloride 20 MEQ TABCR PO (07:47)
[2023-09-20] MEDS: Insulin Glargine 300 UNITS/3 ML PEN 50 UNITS SC (07:49)
[2023-09-20] MEDS: Insulin Aspart 300 UNITS/3 ML PEN SC ×2 (07:49→12:09)
[2023-09-20 07:55] VITALS: BP 119/73; PULSE 66; RESP 16; TEMP 37; O2SAT 97
[2023-09-20] MEDS: Furosemide 40 MG/4 ML VIAL IVP (09:15)
[2023-09-20] MEDS: Normal Saline Flush 10 ML SYR IVP (09:16)
[2023-09-20 11:19] VITALS: BP 118/70; PULSE 92; RESP 16; TEMP 36.4; O2SAT 98
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
--- NOTE | 2023-09-20 11:34 | PT.INNT ---
PT Notes Visit Reasons: Weakness,Acute Kidney Injury,Transaminitis Pt approached at 11:30am, Pt will DC at 1pm going to [facility]. deferred treatment session per pt to save his energy for the transfer this afternoon.
--- NOTE | 2023-09-20 17:10 | PDOC.CMDIS ---
Date of service: 09/20/23 Time of Service: 17:10 LACE Index Scoring Tool Questions: Length of Stay (in days): 4 - 6 Was the patient admitted via the E.D.?: Yes Comorbidities: Diabetes w/o Complication E.D. Visits: 2 Answers: Total Score: 10 Risk of Readmission: High Risk Care Management Discharge Plan Reason for Hospitalization: Weakness, BABS, Transaminitis Discharge Plan: Fredo transferred to [facility] today for short term rehab prior to returning home. He transported via facility w/c van, coordinated by CM. He will follow up with his PCP and discharge plan of care. CM discussed this plan with Fredo and Madiha, his , who were both happy with the plan. Patient/Family Education Needs: Review discharge instructions and limitations, discussion of self care needs including ask me three. Services Needed at Discharge: Fdc Facility ([facility]) and Transportation (facility w/c van) [facility] Health Related Social Needs: No Data to Display
[2023-09-21 13:13] LABS: Methylmalonic Acid 0.24 nmol/mL (<=0.40)
== END 2023-09-20 13:00 | disposition skilled nursing facility (03) | DRG 558 ==
LOC: ER 18:43 → ICU 21:06 → MS 09-17 13:04
PROVIDERS: Internal Medicine; Admitting Provider Family Medicine; Emergency Provider Emergency Medicine; PCP Family Medicine; Visit Provider Family Medicine
DX: M62.82 Rhabdomyolysis (principal); N17.9 Acute kidney failure, unspecified; D50.9 Iron deficiency anemia, unspecified; R29.6 Repeated falls; E66.9 Obesity, unspecified; I25.119 Atherosclerotic heart disease of native coronary artery with unspecified angina pectoris; E03.9 Hypothyroidism, unspecified; K59.00 Constipation, unspecified; G89.29 Other chronic pain; W19.XXXA Unspecified fall, initial encounter; Z79.4 Long term (current) use of insulin; R79.89 Other specified abnormal findings of blood chemistry; M54.50 Low back pain, unspecified; S30.0XXA Contusion of lower back and pelvis, initial encounter; M70.61 Trochanteric bursitis, right hip; E78.5 Hyperlipidemia, unspecified; M47.814 Spondylosis without myelopathy or radiculopathy, thoracic region; M47.817 Spondylosis without myelopathy or radiculopathy, lumbosacral region; M16.11 Unilateral primary osteoarthritis, right hip; N18.9 Chronic kidney disease, unspecified; E11.22 Type 2 diabetes mellitus with diabetic chronic kidney disease; E11.42 Type 2 diabetes mellitus with diabetic polyneuropathy; S80.211A Abrasion, right knee, initial encounter; I12.9 Hypertensive chronic kidney disease with stage 1 through stage 4 chronic kidney disease, or unspecified chronic kidney disease; Z95.1 Presence of aortocoronary bypass graft; R74.01 Elevation of levels of liver transaminase levels; Z79.85 Long-term (current) use of injectable non-insulin antidiabetic drugs; Z68.30 Body mass index [BMI] 30.0-30.9, adult
CPT/HCPCS: 00123; 36410; 36415; 80048; 80053; 80076; 80186; 82550; 82805; 83090; 84145; 85652; 86704; 86709; 86803; 87040; 87340; 87389; 90471; 90715; 93005; 96360; 97110; 97162; 97530; 99285; J1650; 70450; 71045; 72131; 72170; 73564; 80329; 81003; 81015; 82310; 82330; 82728; 82746; 83036; 83540; 83550; 83735; 84484; 85025; 85610; 86038; 87086; 93010; 99223; 99231; 99233; 99238; 99291; J1815; J1940; J2212; J3475; J3480; J7060

== ENCOUNTER 2023-09-23 17:10 | Outpatient (REF) | payer SELFPAY ==
[2023-09-23 15:25] LABS: Abs Immature Grans 0.06 10^3/uL (0.0-0.06); Absolute Basophil Count 0.06 10^3/uL (0.0-0.2); Absolute Eosinophil Count 0.27 10^3/uL (0.0-0.7); Absolute Lymphocyte Count 1.15 10^3/uL (1.2-3.4); Absolute Monocyte Count 0.69 10^3/uL (0.1-0.8); Absolute Neutrophil Count 4.67 10^3/uL (1.2-6.7); Basophils % 0.9; Eosinophils % 3.9; HCT 33.6 % (40.0-50.0); HGB 10.9 g/dL (13.5-17.5); Immature Grans % 0.9; Lymphocytes % 16.7; MCH 29.4 pg (27.0-33.0); MCHC 32.4 % (32.0-36.0); MCV 91 fL (80-95); MPV 9.3 fL (8.0-11.0); Neutrophils % 67.6; Platelet Count 188 10^3/uL (130-400); RBC 3.71 10^6/uL (4.36-5.78); RDW 15.7 % (11.8-14.1); RDW-SD 51.1 fL
[2023-09-23 15:39] LABS: ALT 138 U/L (16-63); AST 43 U/L (15-37); Albumin 3.6 g/dL (3.4-5.0); Alkaline Phosphatase 114 U/L (46-116); Anion Gap 13.2 mmol/L (3-11); BUN 32 mg/dL (7-18); Bilirubin, Total 0.3 mg/dL (0.2-1.0); CO2 22.8 mmol/L (21.0-32.0); CREATININE 1.9 mg/dL (0.70-1.30); Chloride 106 mmol/L (98-107); Creatine Kinase 527 U/L (39-308); Estimated GFR 36.56 (mL/min/1.73m2); Glucose 110 mg/dL (74-106); Potassium 4.1 mmol/L (3.5-5.1); Sodium 142 mmol/L (136-145); Total Protein 6.5 g/dL (6.4-8.2)
== END 2023-09-23 17:11 | disposition home or self-care (01) ==
LOC: LBN 17:10
PROVIDERS: PCP Family Medicine; Visit Provider Family Medicine
DX: M62.82 Rhabdomyolysis (principal); E11.22 Type 2 diabetes mellitus with diabetic chronic kidney disease; N17.9 Acute kidney failure, unspecified; D50.9 Iron deficiency anemia, unspecified; E03.9 Hypothyroidism, unspecified
CPT/HCPCS: 80053; 82550; 85025

== ENCOUNTER 2023-09-30 12:28 | Emergency (ER) | payer MEDICARE, OTHER, SELFPAY ==
[2023-09-30 12:39] VITALS: BP 154/76; PULSE 92; RESP 16; TEMP 36.6; O2SAT 97
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
[2023-09-30 13:25] VITALS: RESP 18
[2023-09-30 14:04] LABS: Abs Immature Grans 0.06 10^3/uL (0.0-0.06); Absolute Basophil Count 0.06 10^3/uL (0.0-0.2); Absolute Eosinophil Count 0.29 10^3/uL (0.0-0.7); Absolute Lymphocyte Count 0.87 10^3/uL (1.2-3.4); Absolute Monocyte Count 0.42 10^3/uL (0.1-0.8); Absolute Neutrophil Count 3.54 10^3/uL (1.2-6.7); Basophils % 1.1; Eosinophils % 5.5; HCT 33.9 % (40.0-50.0); HGB 11.2 g/dL (13.5-17.5); Immature Grans % 1.1; Lymphocytes % 16.6; MCH 29.6 pg (27.0-33.0); MCV 89 fL (80-95); MPV 8.9 fL (8.0-11.0); Neutrophils % 67.7; Platelet Count 211 10^3/uL (130-400); RBC 3.79 10^6/uL (4.36-5.78); RDW 15.6 % (11.8-14.1); RDW-SD 51.4 fL; WBC 5.24 10^3/uL (4.4-10.8)
[2023-09-30 14:19] LABS: ALT 47 U/L (16-63); AST 19 U/L (15-37); Albumin 3.5 g/dL (3.4-5.0); Alkaline Phosphatase 100 U/L (46-116); Anion Gap 11.9 mmol/L (3-11); BUN 19 mg/dL (7-18); Bilirubin, Total 0.3 mg/dL (0.2-1.0); CO2 22.1 mmol/L (21.0-32.0); CREATININE 1.7 mg/dL (0.70-1.30); Calcium 8.3 mg/dL (8.5-10.1); Chloride 106 mmol/L (98-107); Creatine Kinase 131 U/L (39-308); Estimated GFR 41.78 (mL/min/1.73m2); Glucose 159 mg/dL (74-106); Magnesium 1.9 mg/dL (1.8-2.4); Potassium 3.9 mmol/L (3.5-5.1); Sodium 140 mmol/L (136-145); Total Protein 6.7 g/dL (6.4-8.2)
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
[2023-09-30 15:31] VITALS: BP 146/74; PULSE 89; RESP 14; O2SAT 97
--- NOTE | 2023-09-30 16:01 | NUR.NOTE ---
Referral faxed to [facility] office for leg weakness some time next week.
--- NOTE | 2023-09-30 16:10 | NUR.NOTE ---
Correction to previous note: Referral was given to Care Managers to help PT obtain an appointment sometime next week for Leg Weakness
== END 2023-09-30 15:31 | disposition home or self-care (01) ==
PROVIDERS: Emergency Provider Nurse Practitioner Family; PCP Family Medicine
DX: R53.1 Weakness (principal); R22.43 Localized swelling, mass and lump, lower limb, bilateral; R29.898 Other symptoms and signs involving the musculoskeletal system
CPT/HCPCS: 80053; 82550; 97162; 97530; 99282; 83735; 85025; 99283

== ENCOUNTER → 2023-10-15 10:29 | Outpatient (BNVA) | payer MEDICARE, OTHER, SELFPAY | PROVIDERS: PCP Family Medicine; Visit Provider Internal Medicine Cardiovascular Disease | DX: I25.10 Atherosclerotic heart disease of native coronary artery without angina pectoris (principal) | CPT/HCPCS: 99213 ==

== ENCOUNTER → 2023-10-21 14:41 | Outpatient (BNVA) | payer MEDICARE, OTHER, SELFPAY | PROVIDERS: PCP Family Medicine; Referring Provider Family Medicine; Visit Provider Podiatrist | DX: N18.32 Chronic kidney disease, stage 3b (principal); R29.898 Other symptoms and signs involving the musculoskeletal system; G62.9 Polyneuropathy, unspecified; E53.8 Deficiency of other specified B group vitamins; R26.89 Other abnormalities of gait and mobility; E11.42 Type 2 diabetes mellitus with diabetic polyneuropathy; I87.2 Venous insufficiency (chronic) (peripheral); B35.1 Tinea unguium; L60.3 Nail dystrophy; M20.42 Other hammer toe(s) (acquired), left foot; L84 Corns and callosities | CPT/HCPCS: 11055; 11719; 11720; 11721 ==

== ENCOUNTER → 2023-11-18 11:13 | Outpatient (BNVA) | payer MEDICARE, OTHER, SELFPAY | PROVIDERS: PCP Family Medicine; Referring Provider Family Medicine; Visit Provider Podiatrist | DX: M79.671 Pain in right foot (principal); N18.32 Chronic kidney disease, stage 3b; R29.898 Other symptoms and signs involving the musculoskeletal system; G62.9 Polyneuropathy, unspecified; E53.8 Deficiency of other specified B group vitamins; R26.89 Other abnormalities of gait and mobility; E11.42 Type 2 diabetes mellitus with diabetic polyneuropathy; I87.2 Venous insufficiency (chronic) (peripheral); B35.1 Tinea unguium; L60.3 Nail dystrophy; M20.42 Other hammer toe(s) (acquired), left foot; L84 Corns and callosities; M79.675 Pain in left toe(s) | CPT/HCPCS: 11719; 11720 ==

== ENCOUNTER 2023-11-24 16:15 | Outpatient (CLI) | payer MEDICARE, OTHER, SELFPAY ==
--- NOTE | 2023-11-24 06:00 | DI.RAD_ITS ---
Exam(s) XR PAIN CLINIC LUMBAR SP 2V EXAM: XR PAIN CLINIC LUMBAR SP 2V CLINICAL HISTORY: Dx: Lumbar Radiculopathy TECHNIQUE: 2D and realtime digital imaging was performed. Radiologist not present. CONTRAST MATERIAL: None. COMPARISON: No exams were available for comparison FINDINGS: Fluoroscopy was provided for pain management therapy. Please refer to procedure report or details. Radiation Exposure Index: Ka,r=5.7 mGy IMPRESSION: As above. RADIATION DOSE DELIVERED:
[2023-11-24 16:25] VITALS: BP 149/85; PULSE 92; RESP 20; TEMP 36.7; O2SAT 97
--- NOTE | 2023-11-24 17:18 | PDOC.PAIN ---
Date of service: 11/24/23 Time of Service: 17:19 Pain Managment Procedure Note Procedure Note Procedure Note: PROCEDURE NOTE LUMBAR EPIDURAL STEROID INJECTION Date of Service: November 24, 2023 Patient:Fredo Suggs? Provider: Sergio Boucher DO, MPH Fredo Osman has been referred to the [facility] for a lumbar epidural steroid injection. Pre-operative diagnosis: Lumbosacral Radiculopathy Post-operative diagnosis: Same Pre-Procedure Pain: VAS= 7 /10 Comments: I previously evaluated him in the office. I also reviewed his latest lumbar spine MRI. Fredo was interviewed and the medical record was reviewed.? There were no medical, pharmacologic, radiographic or other structural contraindications to attempting fluoroscopically guided Lumbar epidural steroid injection.? Risks, potential side effects, indications, and potential benefits of the procedure were reviewed with Fredo.? Questions and concerns were addressed.? After it was clear that Fredo was fully informed about the procedure, the printed consent form was signed by the patient and myself.? Fredo was placed in the prone position on the fluoroscopy table and automated blood pressure cuff and pulse oximeter applied. The skin entry point for entering/approaching the epidural space for the lumbar epidural steroid injection was marked. Following thorough chlorhexadine preparation of the skin and draping and 1% lidocaine infiltration of the skin entry point and subcutaneous tissues, an 18 gauge Touhy needle was placed and advanced under fluoroscopic guidance and with loss of resistance technique into the L5-S1 epidural space. Needle tip placement and depth were aided and confirmed by fluoroscopy. There was no paresthesia or return of blood or CSF through the needle. 1 mls of Omnipaque 240 was injected with clear epidural spread confirmed with fluoroscopy. 80 mg of Depo-Medrol was? injected. This was followed by 1 ml of preservative-free normal saline to flush the steroid out of the needle. There was no unusual discomfort expressed by Fredo. The needle was withdrawn without difficulty. (49 mls of Omnipaque was wasted) Fredo was observed and was without hemodynamic, neurologic, or allergic reactions.? Fluoroscopic images were digitally archived. Fredo's vital signs were stable throughout the procedure and were as recorded in nursing records. Follow up plans and appointments were discussed with Fredo. Post procedure instruction was given as documented in nursing records and having met discharge criteria Fredo was discharged from the [facility]. COMMENTS: No apparent complications. Post-procedure pain: VAS= 0/10. Fredo to contact [facility] as needed. If at least 50% improvement in pain and/or function for at least 3 months is achieved, this procedure can be repeated. I personally performed this entire procedure. SERGIO BOUCHER DO, MPH ABPMR-subspecialty board certification in Pain Medicine [facility]
[2023-11-24 17:30] VITALS: BP 144/63; PULSE 89; RESP 20; O2SAT 97
[2023-11-24] MEDS: Omnipaque 240 MG/ML 50 ML BTL IJ (17:41)
[2023-11-24] MEDS: Epidural Tray 1 EACH MC (17:41)
[2023-11-24] MEDS: methylPREDNISolone ACETATE 80 MG/ML VIAL IJ (17:41)
[2023-11-24 17:45] VITALS: BP 158/73; PULSE 90; RESP 14; O2SAT 98
== END 2023-11-24 16:16 | disposition home or self-care (01) ==
LOC: PC 16:16
PROVIDERS: PCP Family Medicine; Visit Provider Preventive Medicine Occupational Medicine
DX: M54.50 Low back pain, unspecified (principal); M54.17 Radiculopathy, lumbosacral region
CPT/HCPCS: 62323; 72100; J1010; Q9967

== ENCOUNTER → 2023-12-09 10:19 | Outpatient (BNVA) | payer MEDICARE, OTHER, SELFPAY | PROVIDERS: PCP Family Medicine; Visit Provider Nurse Practitioner Gerontology | DX: N35.911 Unspecified urethral stricture, male, meatal (principal); N32.81 Overactive bladder | CPT/HCPCS: 51798; 99213 ==

== ENCOUNTER → 2023-12-17 11:11 | Outpatient (BNVA) | payer MEDICARE, OTHER, SELFPAY | PROVIDERS: PCP Family Medicine; Referring Provider Family Medicine | DX: M16.11 Unilateral primary osteoarthritis, right hip (principal) | CPT/HCPCS: 20611; J1010 ==

== ENCOUNTER → 2023-12-22 14:54 | Outpatient (BNVA) | payer MEDICARE, OTHER, SELFPAY | PROVIDERS: PCP Family Medicine; Referring Provider Family Medicine; Visit Provider Podiatrist | DX: I70.203 Unspecified atherosclerosis of native arteries of extremities, bilateral legs (principal); N18.32 Chronic kidney disease, stage 3b; R29.898 Other symptoms and signs involving the musculoskeletal system; G62.9 Polyneuropathy, unspecified; R26.89 Other abnormalities of gait and mobility; E11.42 Type 2 diabetes mellitus with diabetic polyneuropathy; I87.2 Venous insufficiency (chronic) (peripheral); B35.1 Tinea unguium; L60.3 Nail dystrophy; M20.42 Other hammer toe(s) (acquired), left foot; L84 Corns and callosities; M79.671 Pain in right foot | CPT/HCPCS: 97597 ==

== ENCOUNTER 2024-01-04 13:03 | Emergency (ER) | payer MEDICARE, OTHER, SELFPAY ==
[2024-01-04] VITALS (26 sets, daily range): BP systolic 134–164; BP diastolic 69–79; PULSE 80–93; RESP 14–21; TEMP 36.3; O2SAT 96–99
--- NOTE | 2024-01-04 13:00 | RT.EKG_ITS ---
APPROVED REPORT Exam: Resting ECG Reason for Exam: syncope Patient Location: E HR:94 bpm ECG Measurements Heart Rate 94 AXIS SD 137 P 48 QRSd 92 QRS 30 QT 348 T 176 QTc 435 Conclusion Sinus rhythm 94 normal axis no stemi
[2024-01-04 14:12] LABS: Abs Immature Grans 0.04 10^3/uL (0.0-0.06); Absolute Basophil Count 0.06 10^3/uL (0.0-0.2); Absolute Eosinophil Count 0.11 10^3/uL (0.0-0.7); Absolute Lymphocyte Count 0.85 10^3/uL (1.2-3.4); Absolute Monocyte Count 0.63 10^3/uL (0.1-0.8); Absolute Neutrophil Count 4.37 10^3/uL (1.2-6.7); Eosinophils % 1.8 %; HCT 36.5 % (40.0-50.0); HGB 12.3 g/dL (13.5-17.5); Immature Grans % 0.7 %; MCH 29.4 pg (27.0-33.0); MCHC 33.7 % (32.0-36.0); MCV 87 fL (80-95); MPV 9.3 fL (8.0-11.0); Monocytes % 10.4 %; Neutrophils % 72.1 %; Platelet Count 166 10^3/uL (130-400); RBC 4.18 10^6/uL (4.36-5.78); RDW-SD 47.8 fL; WBC 6.06 10^3/uL (4.4-10.8)
[2024-01-04 14:34] LABS: ALT 22 U/L (16-63); AST 18 U/L (15-37); Albumin 3.9 g/dL (3.4-5.0); Alkaline Phosphatase 87 U/L (46-116); Anion Gap 10.5 mmol/L (3-11); BUN 37 mg/dL (7-18); Bilirubin, Total 0.36 mg/dL (0.2-1.0); CO2 20.5 mmol/L (21.0-32.0); CREATININE 2.3 mg/dL (0.70-1.30); Calcium 8.7 mg/dL (8.5-10.1); Chloride 104 mmol/L (98-107); Estimated GFR 29.07 (mL/min/1.73m2); Glucose 180 mg/dL (74-106); NT-proBNP 143 pg/mL (<300); Potassium 5.4 mmol/L (3.5-5.1); Sodium 135 mmol/L (136-145); Total Protein 7.4 g/dL (6.4-8.2)
[2024-01-04] MEDS: Normal Saline 1,000 ML 1000 ML IV (15:00)
[2024-01-04 16:19] LABS: Anion Gap 12.2 mmol/L (3-11); BUN 34 mg/dL (7-18); CO2 17.8 mmol/L (21.0-32.0); Calcium 7.7 mg/dL (8.5-10.1); Chloride 109 mmol/L (98-107); Estimated GFR 34.38 (mL/min/1.73m2); Glucose 111 mg/dL (74-106); Potassium 4.2 mmol/L (3.5-5.1); Sodium 139 mmol/L (136-145)
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
== END 2024-01-04 16:52 | disposition home or self-care (01) ==
PROVIDERS: Emergency Provider Emergency Medicine; PCP Family Medicine
DX: E86.0 Dehydration (principal); R53.83 Other fatigue
CPT/HCPCS: 36415; 80048; 80053; 93005; 96360; 99284; 83880; 84443; 85025; 93010; 99283

== ENCOUNTER 2024-01-24 13:06 | Emergency (ER) | payer MEDICARE, OTHER, SELFPAY ==
[2024-01-24 13:15] VITALS: BP 119/69; PULSE 98; RESP 16; TEMP 36.3; O2SAT 98
[2024-01-24] MEDS: Acetaminophen 500 MG TAB 1000 MG PO (13:50)
--- NOTE | 2024-01-24 14:18 | DI.RAD_ITS ---
Exam(s) XR ANKLE RT COMPLETE EXAM: XR ANKLE RT COMPLETE CLINICAL HISTORY: foot pain. TECHNIQUE: 2D digital imaging was performed. COMPARISON: No exams were available for comparison FINDINGS: 3 views No evidence of fractures nor widening of the ankle mortise. Talar dome unremarkable. No obvious deg enerative changes in the tibiotalar and subtalar joints. Bone density normal. No osseous lesions. No radiopaque foreign bodies. IMPRESSION: No acute osseous findings. Prominent soft tissue swelling. DATA REPOSITORY: RADIATION DOSE DELIVERED:
--- NOTE | 2024-01-24 14:19 | DI.RAD_ITS ---
Exam(s) XR LUMBAR SPINE AP, LAT EXAM: XR LUMBAR SPINE AP, LAT CLINICAL HISTORY: back pain. TECHNIQUE: 2D digital imaging was performed. COMPARISON: CR XR LUMBAR SPINE COMP W FLEX/EX from 07/15/2023 FINDINGS: 3 views There is transitional anatomy here. There is a compression fracture T12 which appears unchanged from 07/15/2023. Degenerative scoliosis convex right again noted. Advanced disc space narrowing at L5-S1 again noted. No listhesis. Other disc spaces exhibit preserv ed height. No osseous lesions. Sacroiliac joints appear unremarkable. IMPRESSION: As above but without significant change compared to 07/15/2023. DATA REPOSITORY: RADIATION DOSE DELIVERED:
--- NOTE | 2024-01-24 14:19 | DI.RAD_ITS ---
Exam(s) XR FOOT RT COMPLETE EXAM: XR FOOT RT COMPLETE CLINICAL HISTORY: foot pain. TECHNIQUE: 2D digital imaging was performed. COMPARISON: CR XR FOOT RT COMPLETE from 02/17/2023 FINDINGS: 3 views No evidence of acute fracture or diastasis of the Lisfranc joint. No obvious soft tissue swelling. Tiny inferior calcaneal spur and small enthesophyte noted on the posterior calcaneus Achilles inserti on site. Great toe metatarsophalangeal joint appears unremarkable as do the other articulations of t he foot. No osseous lesions nor erosions. No radiopaque foreign bodies. IMPRESSION: No significant osseous findings in the foot. DATA REPOSITORY: RADIATION DOSE DELIVERED:
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
[2024-01-24] MEDS: Methocarbamol 500 MG TAB 1000 MG PO (16:09)
[2024-01-24] MEDS: Lidocaine 5% Patch 1 PATCH TP (16:09)
== END 2024-01-24 17:04 | disposition home or self-care (01) ==
PROVIDERS: Emergency Provider Emergency Medicine; PCP Family Medicine
DX: M79.671 Pain in right foot (principal); R26.81 Unsteadiness on feet; I12.9 Hypertensive chronic kidney disease with stage 1 through stage 4 chronic kidney disease, or unspecified chronic kidney disease; E11.22 Type 2 diabetes mellitus with diabetic chronic kidney disease; N18.32 Chronic kidney disease, stage 3b; E11.42 Type 2 diabetes mellitus with diabetic polyneuropathy; I25.10 Atherosclerotic heart disease of native coronary artery without angina pectoris; E78.5 Hyperlipidemia, unspecified; F03.90 Unspecified dementia, unspecified severity, without behavioral disturbance, psychotic disturbance, mood disturbance, and anxiety; Z95.1 Presence of aortocoronary bypass graft; Z86.718 Personal history of other venous thrombosis and embolism; Z91.81 History of falling; Z79.4 Long term (current) use of insulin; Z79.899 Other long term (current) drug therapy
CPT/HCPCS: 99283; 72100; 73610; 73630

== ENCOUNTER → 2024-02-08 14:15 | Outpatient (BNVA) | payer MEDICARE, OTHER, SELFPAY | PROVIDERS: PCP Family Medicine; Referring Provider Family Medicine; Visit Provider Podiatrist | DX: I70.203 Unspecified atherosclerosis of native arteries of extremities, bilateral legs (principal); N18.32 Chronic kidney disease, stage 3b; R29.898 Other symptoms and signs involving the musculoskeletal system; G62.9 Polyneuropathy, unspecified; E53.8 Deficiency of other specified B group vitamins; R26.89 Other abnormalities of gait and mobility; E11.42 Type 2 diabetes mellitus with diabetic polyneuropathy; I87.2 Venous insufficiency (chronic) (peripheral); B35.1 Tinea unguium; L60.3 Nail dystrophy; M20.42 Other hammer toe(s) (acquired), left foot; L84 Corns and callosities; M79.671 Pain in right foot; M79.672 Pain in left foot | CPT/HCPCS: 99214 ==

== ENCOUNTER 2024-02-09 23:24 | Outpatient (REF) | payer MEDICARE, OTHER, SELFPAY ==
[2024-02-09 15:33] LABS: HCT 34.7 % (40.0-50.0); HGB 11.5 g/dL (13.5-17.5); MCH 29.2 pg (27.0-33.0); MCHC 33.1 % (32.0-36.0); MCV 88 fL (80-95); MPV 9.5 fL (8.0-11.0); Platelet Count 193 10^3/uL (130-400); RBC 3.94 10^6/uL (4.36-5.78); RDW 16.6 % (11.8-14.1); RDW-SD 53.1 fL; WBC 7.28 10^3/uL (4.4-10.8)
[2024-02-09 16:21] LABS: Hemoglobin A1C 6.3 % (<5.7)
[2024-02-09 16:31] LABS: Vitamin B12 625 pg/mL (193-986)
[2024-02-11 12:30] LABS: Ferritin 39 ng/mL (26-388)
== END 2024-02-09 23:25 | disposition home or self-care (01) ==
LOC: NCHCN 23:24
PROVIDERS: PCP Family Medicine; Visit Provider Family Medicine
DX: E11.9 Type 2 diabetes mellitus without complications (principal); R53.83 Other fatigue
CPT/HCPCS: 85027; 82043; 82570; 82607; 82728; 83036

== ENCOUNTER 2024-02-14 09:35 | Outpatient (CLI) | payer MEDICARE, OTHER, SELFPAY ==
--- NOTE | 2024-02-14 09:30 | RT.EKG_ITS ---
APPROVED REPORT Exam: Resting ECG Reason for Exam: CAD Patient Location: O HR:84 bpm ECG Measurements Heart Rate 84 AXIS VA 134 P 41 QRSd 91 QRS 21 QT 437 T 87 QTc 517 Conclusion Sinus rhythm...normal P axis, V-rate 50- 99 early transition...QRS area>0 in V2 Borderline T abnormalities,
== END 2024-02-14 09:36 | disposition home or self-care (01) ==
LOC: DI.CARD 09:37
PROVIDERS: PCP Family Medicine; Visit Provider Internal Medicine Cardiovascular Disease
DX: I25.10 Atherosclerotic heart disease of native coronary artery without angina pectoris (principal); Z01.810 Encounter for preprocedural cardiovascular examination
CPT/HCPCS: 93010

== ENCOUNTER → 2024-02-14 14:10 | Outpatient (BNVA) | payer MEDICARE, OTHER, SELFPAY | PROVIDERS: PCP Family Medicine; Referring Provider Family Medicine; Visit Provider Internal Medicine Cardiovascular Disease | DX: R94.31 Abnormal electrocardiogram [ECG] [EKG] (principal); I25.10 Atherosclerotic heart disease of native coronary artery without angina pectoris; Z01.810 Encounter for preprocedural cardiovascular examination | CPT/HCPCS: 93005; 99213 ==

== ENCOUNTER 2024-02-17 03:18 | Outpatient (RCR) | payer MEDICARE, OTHER, SELFPAY ==
[2024-02-17] MEDS: Normal Saline Flush 10 ML SYR IVP (10:13)
[2024-02-17] MEDS: IRON SUCROSE COMPLEX 300 MG in Normal Saline 250 ML 177 MG IVPB (10:13)
== END 2024-02-19 23:59 | disposition home or self-care (01) ==
LOC: INF 03:18
PROVIDERS: PCP Family Medicine; Visit Provider Family Medicine
DX: D50.9 Iron deficiency anemia, unspecified
CPT/HCPCS: 96365; 96366; J1756

== ENCOUNTER → 2024-02-24 13:27 | Outpatient (BNVA) | payer MEDICARE, OTHER, SELFPAY | PROVIDERS: PCP Family Medicine; Referring Provider Family Medicine; Visit Provider Podiatrist | DX: I70.203 Unspecified atherosclerosis of native arteries of extremities, bilateral legs (principal); N18.32 Chronic kidney disease, stage 3b; L60.3 Nail dystrophy; B35.1 Tinea unguium; L84 Corns and callosities; M20.42 Other hammer toe(s) (acquired), left foot; E11.42 Type 2 diabetes mellitus with diabetic polyneuropathy; I87.2 Venous insufficiency (chronic) (peripheral); E53.8 Deficiency of other specified B group vitamins; R29.898 Other symptoms and signs involving the musculoskeletal system; G62.9 Polyneuropathy, unspecified; R26.89 Other abnormalities of gait and mobility; M79.671 Pain in right foot | CPT/HCPCS: 11719; 11720 ==

== ENCOUNTER 2024-02-28 15:01 | Outpatient (REF) | payer MEDICARE, OTHER, SELFPAY ==
[2024-02-28 19:32] LABS: ALT 32 U/L (16-63); AST 23 U/L (15-37); Alkaline Phosphatase 93 U/L (46-116); Anion Gap 12.7 mmol/L (3-11); BUN 17 mg/dL (7-18); Bilirubin, Total 0.35 mg/dL (0.2-1.0); CO2 21.3 mmol/L (21.0-32.0); CREATININE 1.9 mg/dL (0.70-1.30); Calcium 8.6 mg/dL (8.5-10.1); Chloride 103 mmol/L (98-107); Estimated GFR 36.56 (mL/min/1.73m2); Glucose 216 mg/dL (74-106); Potassium 4.3 mmol/L (3.5-5.1); Sodium 137 mmol/L (136-145)
== END 2024-02-28 15:02 | disposition home or self-care (01) ==
LOC: NCHCN 15:01
PROVIDERS: PCP Family Medicine; Visit Provider Family Medicine
DX: Z01.818 Encounter for other preprocedural examination (principal); K76.0 Fatty (change of) liver, not elsewhere classified
CPT/HCPCS: 80053; 85025

== ENCOUNTER 2024-03-01 13:15 | Outpatient (RCR) | payer MEDICARE, OTHER, SELFPAY ==
[2024-02-23] MEDS: IRON SUCROSE COMPLEX 300 MG in Normal Saline 250 ML 176.667 MG IVPB (13:28)
[2024-02-23] MEDS: Normal Saline Flush 10 ML SYR IVP (13:28)
[2024-03-01] MEDS: Normal Saline Flush 10 ML SYR IVP (13:08)
[2024-03-01] MEDS: IRON SUCROSE COMPLEX 300 MG in Normal Saline 250 ML 176.667 MG IVPB (13:08)
[2024-03-01 13:44] LABS: Abs Immature Grans 0.09 10^3/uL (0.0-0.06); Absolute Basophil Count 0.09 10^3/uL (0.0-0.2); Absolute Eosinophil Count 0.26 10^3/uL (0.0-0.7); Absolute Monocyte Count 0.67 10^3/uL (0.1-0.8); Absolute Neutrophil Count 5.23 10^3/uL (1.2-6.7); Basophils % 1.2 %; Eosinophils % 3.5 %; HCT 37.4 % (40.0-50.0); HGB 12.5 g/dL (13.5-17.5); Immature Grans % 1.2 %; Lymphocytes % 14.8 %; MCH 29.8 pg (27.0-33.0); MCHC 33.4 % (32.0-36.0); MCV 89 fL (80-95); MPV 9.4 fL (8.0-11.0); Neutrophils % 70.3 %; Platelet Count 221 10^3/uL (130-400); RDW 15.9 % (11.8-14.1); RDW-SD 51.8 fL; WBC 7.44 10^3/uL (4.4-10.8)
== END 2024-03-20 23:59 | disposition home or self-care (01) ==
LOC: INF 13:15
PROVIDERS: PCP Family Medicine; Visit Provider Family Medicine
DX: D50.9 Iron deficiency anemia, unspecified (principal); I25.10 Atherosclerotic heart disease of native coronary artery without angina pectoris
CPT/HCPCS: 96365; 96366; 85025; J1756

== ENCOUNTER 2024-03-06 06:07 | Day surgery (SDC) | payer MEDICARE, OTHER, SELFPAY ==
[2024-03-06 06:30] VITALS: BP 102/58; PULSE 90; RESP 18; TEMP 36.5; O2SAT 98
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
[2024-03-06] MEDS: Lactated Ringers 1,000 ML 30 ML IV (06:51)
[2024-03-06 07:15] VITALS: BMI 28.7
[2024-03-06] MEDS: CLINDAMYCIN 300 MG/50 ML BAG 100 MG IVPB (07:45)
[2024-03-06] MEDS: Lidocaine 1% Pres-Free 30 ML VIAL (08:12)
[2024-03-06] MEDS: Bupivacaine 0.25% Pres-Free 30 ML VIAL (08:15)
--- NOTE | 2024-03-06 08:20 | DI.RAD_ITS ---
Exam(s) XR FOOT RT LIMITED EXAM: XR FOOT RT LIMITED CLINICAL HISTORY: R foot ulcer at bony prominence. TECHNIQUE: 2D and realtime digital imaging was performed. COMPARISON: CR XR FOOT RT COMPLETE from 01/24/2024 FINDINGS: Please see procedure note for details. Fluoro time: 0.43Seconds RADIATION DOSE DELIVERED: liv Forbes=0.09 mGy
[2024-03-06 08:26] VITALS: BP 82/58; PULSE 87; RESP 18; TEMP 36.1; O2SAT 96
--- NOTE | 2024-03-06 08:37 | W.PM.DSUDISC ---
Date of service: 03/06/24 Time of Service: 07:30 Discharge Plan Disposition Patient Disposition: Home Condition: Stable Discharge Details Attending Provider: Sayra Cabello Primary Care Provider: Alisa Ramirez Home Meds and New Rx's Prescriptions: No Action finasteride 5 mg tablet 5 mg PO DAILY Qty: 90 4RF mirabegron [Myrbetriq] 25 mg tablet extended release 24 hr 25 mg PO DAILY Qty: 90 3RF multivitamin Tablet 1 tab PO DAILY mupirocin 2 % ointment 1 applic topical BID insulin degludec [Tresiba FlexTouch U-200] 200 unit/mL (3 mL) insulin pen 100 unit subcut QHS metoprolol succinate 50 mg tablet extended release 24 hr 50 mg PO HS diclofenac sodium [Voltaren] 1 % gel 1 applic topical DIRECTED Rx Instructions: apply to single elbow, wrist or hand; for hand includes palm/fingers/back of hand ketoconazole 2 % cream 1 applic topical DAILY 90 Days Qty: 60 3RF Rx Instructions: Apply to toenails once daily ranitidine HCl 150 mg capsule 150 mg PO DAILY magnesium oxide 400 mg magnesium capsule 400 mg PO DAILY cholecalciferol (vitamin D3) 75 mcg (3,000 unit) tablet 1,000 unit PO DAILY polyethylene glycol 3350 17 gram powder in packet 17 g PO DAILY citalopram 20 mg tablet 20 mg PO DAILY allopurinol 300 mg tablet 300 mg PO DAILY nitroglycerin [Nitrostat] 0.4 MG tablet, sublingual 0.4 mg Sublingual as directed metformin 1,000 mg tablet 1,000 mg PO BID triamcinolone acetonide 0.1 % cream 1 applic topical BID riboflavin (vitamin B2) [Vitamin B-2] 100 mg tablet 400 mg PO .QD acetylcysteine 600 mg capsule 600 mg PO BID insulin glargine [Lantus Solostar U-100 Insulin] 100 unit/mL (3 mL) insulin pen 65 unit subcut BID pantoprazole 40 mg tablet,delayed release (DR/EC) 40 mg PO HS pregabalin 100 mg capsule 100 mg PO BID levothyroxine 50 MCG tablet 50 mcg PO DAILY@0730 quetiapine [Seroquel] 300 MG tablet 300 mg PO HS lisinopril 20 mg tablet 30 mg PO DAILY isosorbide mononitrate 60 mg tablet extended release 24 hr 60 mg PO HS Rx Instructions: TAKE ALONG WITH 30MG TAB FOR TOTAL DAILY DOSE OF 90MG docusate sodium [Colace] 100 mg Capsule 100 mg PO DAILY PRN topiramate 25 mg tablet 25 mg PO HS Patient Comments: TAKE 1 TABLET BY MOUTH AT BEDTIME topiramate 50 mg tablet 50 mg PO HS Patient Comments: TAKE 1 TABLET BY MOUTH ONCE DAILY (total 75mg dose at QHS) amlodipine 2.5 mg tablet 2.5 mg PO DAILY tramadol 50 mg tablet 50 mg PO QHS PRN (Reason: pain) ranolazine 500 mg tablet extended release 12 hr 500 mg PO BID acetaminophen [Acetaminophen Extra Strength] 500 mg tablet 1,000 mg PO TID PRN PRN (Reason: pain) Qty: 30 0RF Discharge Instructions Stand Alone Forms: Podiatry Instructions-DSU Activity:: Elevate Remove Dressings/Wound Care:: Do Not Remove Shower/Bathe:: Cover Diet:: Normal Diet Discharge Orders Discharge Orders: Discharge Order (Routine); Ordered 03/06/24 Ordered By: Sayra Cabello DS: Diagnosis Discharge Diagnosis (1) Type 2 diabetes mellitus with peripheral neuropathy: Status: Acute (2) Chronic kidney disease (CKD) stage G3b/A1, moderately decreased glomerular filtration rate (GFR) between 30-44 mL/min/1.73 square meter and albuminuria creatinine ratio less than 30 mg/g: Status: Acute (3) Exostosis of right foot: Status: Acute (4) Ulcer of right foot with fat layer exposed: Status: Acute
--- NOTE | 2024-03-06 08:41 | ROE_ITS ---
Date of service: 03/06/24 Time of Service: 07:30 Operative Note Operative Note DATE OF PROCEDURE: 03/06/24 PRE-OP DIAGNOSIS: Painful ulcer/exostosis right fifth metatarsal base POST-OP DIAGNOSIS: same PROCEDURE: Offloading surgery/exostectomy fifth metatarsal base, right foot SURGEON: Sayra Cabello ANESTHESIA TYPE: Local By Surgeon (10 mL 1% lidocaine preoperatively) Refer to Anesthesia Record ESTIMATED BLOOD LOSS: 0 PATHOLOGY: none sent COMPLICATIONS: None Patient was transported to: same day Patient's condition: stable Indications: This is a 73-year-old male patient with a painful ulcer to the lateral aspect of the right fifth metatarsal base. The ulcer has been longstanding. Patient reports pain. Patient has exhausted all conservative modes of treatment. Patient requested surgery. I discussed planing of the fifth metatarsal base directly underneath the ulcer/exostectomy to help decrease pressure in shoes and attempt to prevent and heal the ulcer. I discussed the fact that the peroneal tendons attach here and this would potentially impact the insertion, and therefore I recommend minimal planing of the foot. Patient was advised that if the peroneal tendon is compromised to the degree that causes gait abnormality I would then recommend an aggressive brace or a [place] boot versus more aggressive surgical intervention. Patient understands and agrees. I discussed all the risks, benefits and possible complications including but not limited to pain, nerve pain, wound dehiscence, need for further surgery or amputation, tendon dysfunction DVT, PE, stroke or ND or with anesthesia. Patient understands and assumes all risks. No guarantees or warranties were made or implied. Procedure Description: Patient was identified in preop holding. Site was marked. Consent form was signed reviewed in chart. No contraindications noted to the procedure at this time. Patient was brought to the operating room placed on the operating table in supine position. After induction of general anesthesia, local anesthesia was obtained using 10 mL of 1% lidocaine plain helena-ulceratively. The right lower extremity was then scrubbed prepped and draped in the usual aseptic manner. Fluoroscopic images were taken. Next, a 3 mm meter linear longitudinal incision was made 1 cm distal to the ulceration with a sterile #15 blade. The incision was then deepened. Next, the ulcer was excisionally debrided using a sterile #15 blade including subcutaneous tissue to allow for appropriate palpation of the bony prominence. The Tenex probe was used to resect and plain the bone directly underneath the ulceration while using intraoperative fluoroscopy. A small amount of bone was resected. Next, the incision site was then reapproximated using 4-0 nylon. Dressings were then applied with Xeroform gauze, 4 x 4, Kerlix and an Raymundo wrap. A surgical shoe was applied. Patient was transferred to same-day for further monitoring. He tolerated the procedure and anesthesia well with vital signs stable and vascular status intact the right lower extremity. Patient will be seen in office on .
[2024-03-06 09:02] VITALS: BP 127/66; PULSE 82; RESP 16; TEMP 36.3; O2SAT 97
--- NOTE | 2024-03-06 09:09 | W.ANESPOSTOP ---
Postoperative Evaluation Date, Time and Location Date Performed: 03/06/24 Time Performed: 08:20 Patient Location: Day Surgery Unit Vital Signs Most Recent Imported Vital Signs: Most Recent Vital Signs Temp Pulse Resp BP Pulse Ox 36.1 C L 87 18 82/58 L 96 03/06/24 08:26 03/06/24 08:26 03/06/24 08:26 03/06/24 08:26 03/06/24 08:26 Pain Score Most Recent Pain Score: Most Recent Pain Score Pain Level 0 03/06/24 08:26 Assessment Mental Status: Awake (Alert & Oriented to Patient Baseline) Airway and Respiratory Function: Patent airway with normal (patient baseline) respiratory exam Cardiovascular Function: Hemodynamically Stable Hydration Status: Adequately Hydrated Nausea & Vomiting: No Nausea or Vomiting Pain: Pt. Denies Any Pain Peripheral Nerve Block: Patient did not receive a nerve block
== END 2024-03-06 09:39 | disposition home or self-care (01) ==
PROVIDERS: PCP Family Medicine; Visit Provider Podiatrist
PROC: (CPT 28288; principal; 2024-03-06 07:30)
DX: E11.42 Type 2 diabetes mellitus with diabetic polyneuropathy (principal); N18.32 Chronic kidney disease, stage 3b; E11.22 Type 2 diabetes mellitus with diabetic chronic kidney disease; L97.512 Non-pressure chronic ulcer of other part of right foot with fat layer exposed; M89.8X7 Other specified disorders of bone, ankle and foot
CPT/HCPCS: 28104; 00123; 76000; 73620; J0665; J0736; J2001; J2405; J2704

== ENCOUNTER → 2024-03-07 13:45 | Outpatient (BNVA) | payer MEDICARE, OTHER, SELFPAY | PROVIDERS: PCP Family Medicine; Referring Provider Family Medicine; Visit Provider Podiatrist | DX: Z98.890 Other specified postprocedural states (principal); G89.18 Other acute postprocedural pain; N18.32 Chronic kidney disease, stage 3b; R29.898 Other symptoms and signs involving the musculoskeletal system; G62.9 Polyneuropathy, unspecified; E53.8 Deficiency of other specified B group vitamins; R26.89 Other abnormalities of gait and mobility; E11.42 Type 2 diabetes mellitus with diabetic polyneuropathy; I87.2 Venous insufficiency (chronic) (peripheral); B35.1 Tinea unguium; L60.3 Nail dystrophy; M20.42 Other hammer toe(s) (acquired), left foot; L84 Corns and callosities | CPT/HCPCS: 99024 ==

== ENCOUNTER → 2024-03-09 14:55 | Outpatient (BNVA) | payer MEDICARE, OTHER, SELFPAY | PROVIDERS: PCP Family Medicine; Referring Provider Family Medicine; Visit Provider Podiatrist | DX: Z98.890 Other specified postprocedural states (principal); I70.203 Unspecified atherosclerosis of native arteries of extremities, bilateral legs; N18.32 Chronic kidney disease, stage 3b; R29.898 Other symptoms and signs involving the musculoskeletal system; G62.9 Polyneuropathy, unspecified; E53.8 Deficiency of other specified B group vitamins; E11.42 Type 2 diabetes mellitus with diabetic polyneuropathy; I87.2 Venous insufficiency (chronic) (peripheral); B35.1 Tinea unguium; L60.3 Nail dystrophy; M20.42 Other hammer toe(s) (acquired), left foot; L84 Corns and callosities | CPT/HCPCS: 99024 ==

== ENCOUNTER → 2024-03-14 13:52 | Outpatient (BNVA) | payer MEDICARE, OTHER, SELFPAY | PROVIDERS: PCP Family Medicine; Referring Provider Family Medicine; Visit Provider Podiatrist | DX: Z98.890 Other specified postprocedural states (principal); M79.671 Pain in right foot; I70.203 Unspecified atherosclerosis of native arteries of extremities, bilateral legs; N18.32 Chronic kidney disease, stage 3b; R29.898 Other symptoms and signs involving the musculoskeletal system; G62.9 Polyneuropathy, unspecified; E11.42 Type 2 diabetes mellitus with diabetic polyneuropathy; I87.2 Venous insufficiency (chronic) (peripheral); E53.8 Deficiency of other specified B group vitamins; B35.1 Tinea unguium; L60.3 Nail dystrophy; M20.42 Other hammer toe(s) (acquired), left foot; L84 Corns and callosities | CPT/HCPCS: 99024 ==

== ENCOUNTER 2024-03-18 19:35 | Emergency (ER) | payer MEDICARE, OTHER, SELFPAY ==
[2024-03-18 19:44] VITALS: BP 171/86; PULSE 98; RESP 18; TEMP 36.9; O2SAT 96
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
== END 2024-03-18 20:09 | disposition home or self-care (01) ==
PROVIDERS: Emergency Provider Student in an Organized Health Care Education/Training Program; PCP Family Medicine
DX: M79.671 Pain in right foot (principal); Z98.890 Other specified postprocedural states
CPT/HCPCS: 99281; 99282

== ENCOUNTER → 2024-03-30 09:11 | Outpatient (BNVA) | payer MEDICARE, OTHER, SELFPAY | PROVIDERS: PCP Family Medicine; Visit Provider Podiatrist | DX: Z98.890 Other specified postprocedural states (principal); I70.203 Unspecified atherosclerosis of native arteries of extremities, bilateral legs; N18.32 Chronic kidney disease, stage 3b; R29.898 Other symptoms and signs involving the musculoskeletal system; G62.9 Polyneuropathy, unspecified; E53.8 Deficiency of other specified B group vitamins; R26.89 Other abnormalities of gait and mobility; E11.42 Type 2 diabetes mellitus with diabetic polyneuropathy; I87.2 Venous insufficiency (chronic) (peripheral); B35.1 Tinea unguium; L60.3 Nail dystrophy; M20.42 Other hammer toe(s) (acquired), left foot; L84 Corns and callosities | CPT/HCPCS: 99024 ==

== ENCOUNTER 2024-03-30 10:52 | Outpatient (CLI) | payer MEDICARE, OTHER, SELFPAY ==
--- NOTE | 2024-03-30 06:00 | DI.RAD_ITS ---
Exam(s) XR PAIN CLINIC LUMBAR SP 2V EXAM: XR PAIN CLINIC LUMBAR SP 2V CLINICAL HISTORY: DX: Lumbar Radiculopathy. TECHNIQUE: Fluoroscopy was provided for the referring physician for guidance with performing pain cl inic injection procedure. COMPARISON: No exams were available for comparison FINDINGS: Please see procedure note for details. Fluoro time: 22.2 seconds RADIATION DOSE DELIVERED: Ka,r=8.77 mGy
[2024-03-30 10:59] VITALS: BP 136/78; PULSE 86; RESP 20; TEMP 36.7; O2SAT 96
[2024-03-30 11:28] VITALS: PULSE 95; RESP 24; O2SAT 97
[2024-03-30 11:29] VITALS: BP 134/86; PULSE 93; PULSE 95; RESP 22; O2SAT 98
[2024-03-30 11:30] VITALS: PULSE 94; RESP 18; O2SAT 98
[2024-03-30 11:31] VITALS: BP 134/86; PULSE 92; PULSE 93; RESP 19; O2SAT 98
[2024-03-30] MEDS: Omnipaque 240 MG/ML 50 ML BTL IJ (11:43)
[2024-03-30] MEDS: methylPREDNISolone ACETATE 80 MG/ML VIAL IJ (11:44)
[2024-03-30] MEDS: Epidural Tray 1 EACH MC (11:44)
--- NOTE | 2024-03-30 11:51 | PDOC.PAIN ---
Date of service: 03/30/24 Time of Service: 11:52 Pain Managment Procedure Note Procedure Note Procedure Note: PROCEDURE NOTE LUMBAR EPIDURAL STEROID INJECTION Date of Service: March 30, 2024 Patient:Fredo Suggs? Provider: Sergio Boucher DO, MPH Fredo Osman has been referred to the [facility] for a lumbar epidural steroid injection. Pre-operative diagnosis: Lumbosacral Radiculopathy ICD-10 M54.16 Post-operative diagnosis: Same Pre-Procedure Pain: VAS= 10 /10 Comments: I previously evaluated him on 01/26/24 and recommended this procedure. His symptoms have not changed. He does have a right foot lesion, which is now fully healed. His last Hem A1c was 6.3 on 02/09/24. Fredo was interviewed and the medical record was reviewed.? There were no medical, pharmacologic, radiographic or other structural contraindications to attempting fluoroscopically guided Lumbar epidural steroid injection.? Risks, potential side effects, indications, and potential benefits of the procedure were reviewed with Fredo.? Questions and concerns were addressed.? After it was clear that Fredo was fully informed about the procedure, the printed consent form was signed by the patient and myself.? Fredo was placed in the prone position on the fluoroscopy table and automated blood pressure cuff and pulse oximeter applied. The skin entry point for entering/approaching the epidural space for the lumbar epidural steroid injection was marked. Following thorough chlorhexadine preparation of the skin and draping and 1% lidocaine infiltration of the skin entry point and subcutaneous tissues, an 18 gauge Touhy needle was placed and advanced under fluoroscopic guidance and with loss of resistance technique into the L5-S1 epidural space. Needle tip placement and depth were aided and confirmed by fluoroscopy. There was no paresthesia or return of blood or CSF through the needle. 1 mls of Omnipaque 240 was injected with clear epidural spread confirmed with fluoroscopy. 80 mg of Depo-Medrol was? injected. This was followed by 1 ml of preservative-free normal saline to flush the steroid out of the needle. There was no unusual discomfort expressed by Fredo. The needle was withdrawn without difficulty. (49 mls of Omnipaque was wasted) Fredo was observed and was without hemodynamic, neurologic, or allergic reactions.? Fluoroscopic images were digitally archived. Fredo's vital signs were stable throughout the procedure and were as recorded in nursing records. Follow up plans and appointments were discussed with Fredo. Post procedure instruction was given as documented in nursing records and having met discharge criteria Fredo was discharged from the [facility]. COMMENTS: No apparent complications. Post-procedure pain: VAS= 2/10. Fredo to contact [facility] as needed. If at least 50% improvement in pain and/or function for at least 3 months is achieved, this procedure can be repeated. I personally performed this entire procedure. SERGIO BOUCHER DO, MPH ABPMR-subspecialty board certification in Pain Medicine [facility]
== END 2024-03-30 10:53 | disposition home or self-care (01) ==
LOC: PC 10:52
PROVIDERS: PCP Family Medicine; Visit Provider Preventive Medicine Occupational Medicine
DX: M54.50 Low back pain, unspecified (principal); M54.16 Radiculopathy, lumbar region
CPT/HCPCS: 62323; 72100; J1010; Q9967

== ENCOUNTER → 2024-04-13 10:43 | Outpatient (BNVA) | payer MEDICARE, OTHER, SELFPAY | PROVIDERS: PCP Family Medicine; Referring Provider Family Medicine; Visit Provider Podiatrist | DX: Z98.890 Other specified postprocedural states (principal); I70.203 Unspecified atherosclerosis of native arteries of extremities, bilateral legs; N18.32 Chronic kidney disease, stage 3b; R29.898 Other symptoms and signs involving the musculoskeletal system; G62.9 Polyneuropathy, unspecified; E53.8 Deficiency of other specified B group vitamins; R26.89 Other abnormalities of gait and mobility; E11.42 Type 2 diabetes mellitus with diabetic polyneuropathy; I87.2 Venous insufficiency (chronic) (peripheral); B35.1 Tinea unguium; L60.3 Nail dystrophy; M20.42 Other hammer toe(s) (acquired), left foot; L84 Corns and callosities | CPT/HCPCS: 99024 ==

== ENCOUNTER → 2024-04-24 13:00 | Outpatient (BNVA) | payer MEDICARE, OTHER, SELFPAY | PROVIDERS: PCP Family Medicine; Referring Provider Family Medicine; Visit Provider Podiatrist | DX: Z98.890 Other specified postprocedural states (principal); I70.293 Other atherosclerosis of native arteries of extremities, bilateral legs; M79.672 Pain in left foot; N18.32 Chronic kidney disease, stage 3b; R29.898 Other symptoms and signs involving the musculoskeletal system; G62.9 Polyneuropathy, unspecified; E53.8 Deficiency of other specified B group vitamins; R26.89 Other abnormalities of gait and mobility; E11.42 Type 2 diabetes mellitus with diabetic polyneuropathy; B35.1 Tinea unguium; L60.3 Nail dystrophy; M20.42 Other hammer toe(s) (acquired), left foot; L84 Corns and callosities; L30.8 Other specified dermatitis | CPT/HCPCS: 99024 ==

== ENCOUNTER 2024-05-05 22:20 | Outpatient (REF) | payer MEDICARE, OTHER, SELFPAY ==
[2024-05-05 18:20] LABS: HCT 39.7 % (40.0-50.0); HGB 13.4 g/dL (13.5-17.5); MCH 30.3 pg (27.0-33.0); MCHC 33.8 % (32.0-36.0); MCV 90 fL (80-95); MPV 9.1 fL (8.0-11.0); Platelet Count 205 10^3/uL (130-400); RBC 4.42 10^6/uL (4.36-5.78); RDW 14.4 % (11.8-14.1); RDW-SD 46.6 fL; WBC 6.81 10^3/uL (4.4-10.8)
[2024-05-05 18:28] LABS: Iron 68 ug/dL (65-175); Total Iron Binding Capacity 265 ug/dL (250-450); Transferrin Sat 26 % (20-55)
[2024-05-05 18:31] LABS: ALT 25 U/L (16-63); AST 12 U/L (15-37); Albumin 4.2 g/dL (3.4-5.0); Alkaline Phosphatase 105 U/L (46-116); Anion Gap 14.2 mmol/L (3-11); BUN 26 mg/dL (7-18); Bilirubin, Total 0.38 mg/dL (0.2-1.0); CO2 19.8 mmol/L (21.0-32.0); Calcium 9.1 mg/dL (8.5-10.1); Chloride 107 mmol/L (98-107); Estimated GFR 34.38 (mL/min/1.73m2); Glucose 171 mg/dL (74-106); PHOSPHORUS 2.8 mg/dL (2.6-4.7); Potassium 4.2 mmol/L (3.5-5.1); Sodium 141 mmol/L (136-145); Total Protein 7.4 g/dL (6.4-8.2)
[2024-05-05 19:17] LABS: Ferritin 189 ng/mL (26-388); Vitamin B12 374 pg/mL (193-986); Vitamin D 25 Total 57.3 ng/mL (30-100)
[2024-05-05 19:26] LABS: Folate > 20.0 ng/mL (8.6-20.0)
[2024-05-08 10:03] LABS: Parathyroid Hormone,Intact 39 pg/mL (19-88)
== END 2024-05-05 22:21 | disposition home or self-care (01) ==
LOC: NCHCN 22:20
PROVIDERS: PCP Family Medicine; Visit Provider Family Medicine
DX: N18.31 Chronic kidney disease, stage 3a
CPT/HCPCS: 80053; 82306; 85027; 82607; 82728; 82746; 83540; 83550; 83970; 84100

== ENCOUNTER → 2024-05-22 14:49 | Outpatient (BNVA) | payer MEDICARE, OTHER, SELFPAY | PROVIDERS: PCP Family Medicine; Referring Provider Family Medicine; Visit Provider Podiatrist | DX: Z98.890 Other specified postprocedural states (principal); I70.203 Unspecified atherosclerosis of native arteries of extremities, bilateral legs; M79.671 Pain in right foot; M79.672 Pain in left foot; N18.32 Chronic kidney disease, stage 3b; R29.898 Other symptoms and signs involving the musculoskeletal system; G62.9 Polyneuropathy, unspecified; E53.8 Deficiency of other specified B group vitamins; R26.89 Other abnormalities of gait and mobility; E11.42 Type 2 diabetes mellitus with diabetic polyneuropathy; I87.2 Venous insufficiency (chronic) (peripheral); B35.1 Tinea unguium; L60.3 Nail dystrophy; M20.42 Other hammer toe(s) (acquired), left foot; L84 Corns and callosities; L30.9 Dermatitis, unspecified | CPT/HCPCS: 29580; 29850 ==

== ENCOUNTER 2024-05-22 16:11 | Outpatient (CLI) | payer MEDICARE, OTHER, SELFPAY ==
--- NOTE | 2024-05-22 15:49 | DI.RAD_ITS ---
Exam(s) XR FOOT RT COMPLETE EXAM: XR FOOT RT COMPLETE CLINICAL HISTORY: pain in right foot M84.374A STRESS FX RT FOOT. TECHNIQUE: 2D digital imaging was performed. Three views. COMPARISON: CR XR FOOT RT COMPLETE from 01/24/2024 FINDINGS: Exam mildly limited by overlying foot wrap. BONES: No acute fracture is present. No bony destructive lesion is seen. JOINTS: No dislocation present. No significant degenerative changes. SOFT TISSUE: Normal. IMPRESSION: Unremarkable radiographs of the right foot. No visible stress fracture. DATA REPOSITORY: RADIATION DOSE DELIVERED:
== END 2024-05-22 16:31 ==
PROVIDERS: PCP Family Medicine; Visit Provider Podiatrist
DX: M84.374D Stress fracture, right foot, subsequent encounter for fracture with routine healing (principal)
CPT/HCPCS: 29580; 29850; 73630

== ENCOUNTER → 2024-06-08 14:26 | Outpatient (BNVA) | payer MEDICARE, OTHER, SELFPAY | PROVIDERS: PCP Family Medicine; Visit Provider Nurse Practitioner Gerontology | DX: N32.81 Overactive bladder (principal); N35.919 Unspecified urethral stricture, male, unspecified site | CPT/HCPCS: 51798; 99213 ==

== ENCOUNTER → 2024-07-05 12:54 | Outpatient (BNVA) | payer MEDICARE, OTHER, SELFPAY | PROVIDERS: PCP Family Medicine; Referring Provider Family Medicine; Visit Provider Nurse Practitioner Gerontology | DX: N39.43 Post-void dribbling (principal); N35.911 Unspecified urethral stricture, male, meatal; N32.81 Overactive bladder | CPT/HCPCS: 51798; 81003; 99213 ==

== ENCOUNTER → 2024-07-05 14:23 | Outpatient (BNVA) | payer MEDICARE, OTHER, SELFPAY | PROVIDERS: PCP Family Medicine; Referring Provider Family Medicine; Visit Provider Podiatrist | DX: N18.32 Chronic kidney disease, stage 3b (principal); L60.3 Nail dystrophy; E11.42 Type 2 diabetes mellitus with diabetic polyneuropathy; D50.9 Iron deficiency anemia, unspecified; E53.8 Deficiency of other specified B group vitamins; G62.9 Polyneuropathy, unspecified; B35.1 Tinea unguium; M84.374D Stress fracture, right foot, subsequent encounter for fracture with routine healing; I73.89 Other specified peripheral vascular diseases; X58.XXXD Exposure to other specified factors, subsequent encounter; L65.9 Nonscarring hair loss, unspecified; R20.8 Other disturbances of skin sensation; L60.8 Other nail disorders; R23.8 Other skin changes; L53.8 Other specified erythematous conditions; L60.2 Onychogryphosis | CPT/HCPCS: 11721; 51798; 81002; 81003; 99213 ==

== ENCOUNTER 2024-07-23 15:42 | Inpatient (IN) | payer MEDICARE, OTHER, SELFPAY ==
[2024-07-23] VITALS (68 sets, daily range): BP systolic 150–217; BP diastolic 74–116; PULSE 73–90; RESP 15–25; TEMP 36.3–36.4; O2SAT 89–99
--- NOTE | 2024-07-23 15:30 | RT.EKG_ITS ---
APPROVED REPORT Exam: Resting ECG Reason for Exam: chest pain Patient Location: E HR:82 bpm ECG Measurements Heart Rate 82 AXIS WI 137 P 58 QRSd 91 QRS 42 QT 402 T 211 QTc 470 Conclusion Sinus rhythm [address] flattening no stemi
--- NOTE | 2024-07-23 15:45 | DI.RAD_ITS ---
Exam(s) XR PORTABLE CHEST AP EXAM: XR PORTABLE CHEST AP CLINICAL HISTORY: Chest pain TECHNIQUE: 2D digital imaging was performed. COMPARISON: CR XR PORTABLE CHEST AP from 09/17/2023 FINDINGS: Monitoring leads overlie the chest. LUNGS: Stable appearance from prior. No pleural abnormality seen. HEART: Within normal limits for projection. Status post CABG. AORTA: Normal diameter. BONES: Sternal wires Soft tissues: Unremarkable. IMPRESSION: No acute findings. DATA REPOSITORY: RADIATION DOSE DELIVERED:
[2024-07-23] MEDS: Aspirin 81 MG CHEW 324 MG CH (16:13)
[2024-07-23] MEDS: nitroGLYcerin 0.4 MG TAB SL ×4 (16:14→23:58)
[2024-07-23 16:19] LABS: Abs Immature Grans 0.06 10^3/uL (0.0-0.06); Absolute Basophil Count 0.08 10^3/uL (0.0-0.2); Absolute Eosinophil Count 0.23 10^3/uL (0.0-0.7); Absolute Lymphocyte Count 1.19 10^3/uL (1.2-3.4); Absolute Neutrophil Count 4.53 10^3/uL (1.2-6.7); Basophils % 1.2 %; Eosinophils % 3.4 %; HCT 38.8 % (40.0-50.0); HGB 12.8 g/dL (13.5-17.5); Immature Grans % 0.9 %; Lymphocytes % 17.8 %; MCV 91 fL (80-95); MPV 8.8 fL (8.0-11.0); Neutrophils % 67.7 %; Platelet Count 175 10^3/uL (130-400); RBC 4.27 10^6/uL (4.36-5.78); RDW 14.3 % (11.8-14.1); RDW-SD 46.9 fL; WBC 6.69 10^3/uL (4.4-10.8)
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
[2024-07-23 16:30] LABS: Prothrombin Time 9.6 sec (9.1-11.1)
[2024-07-23 16:41] LABS: ALT 26 U/L (16-63); AST 10 U/L (15-37); Alkaline Phosphatase 89 U/L (46-116); Anion Gap 8.2 mmol/L (3-11); BUN 15 mg/dL (7-18); Bilirubin, Total 0.31 mg/dL (0.2-1.0); CO2 26.8 mmol/L (21.0-32.0); CREATININE 1.9 mg/dL (0.70-1.30); Calcium 8.8 mg/dL (8.5-10.1); Chloride 105 mmol/L (98-107); Estimated GFR 36.56 (mL/min/1.73m2); Glucose 207 mg/dL (74-106); NT-proBNP 302 pg/mL (<300); Sodium 140 mmol/L (136-145); Total Protein 7.4 g/dL (6.4-8.2); Troponin I 9 ng/L (<or=76)
[2024-07-23] MEDS: Acetaminophen 500 MG TAB 1000 MG PO (16:54)
--- NOTE | 2024-07-23 17:03 | DI.VRAD_ITS ---
PROCEDURE INFORMATION: Exam: XR Chest Exam date and time: 07/23/2024 4:39 PM Age: 73 years old Clinical indication: Other: Chest pain TECHNIQUE: Imaging protocol: Radiologic exam of the chest. Views: 1 view. Other technique: Portable exam. COMPARISON: CR XR PORTABLE CHEST AP 09/17/2023 3:00 PM FINDINGS: Lungs: Unremarkable. No consolidation. Pleural spaces: Unremarkable. No pleural effusion. No pneumothorax. Heart/Mediastinum: There is mild mediastinal shift to the right, unchanged from previous study. Bones/joints: Status post median sternotomy. IMPRESSION: No evidence for acute abnormality in the chest. Dictated and Authenticated by: Jeri Bangura MD. Orderin Reid Mims MD
[2024-07-23 17:31] LABS: Troponin I 10 ng/L (<or=76)
--- NOTE | 2024-07-23 18:00 | RT.EKG_ITS ---
APPROVED REPORT Exam: Resting ECG Reason for Exam: chest pain Patient Location: E HR:83 bpm ECG Measurements Heart Rate 83 AXIS DC 134 P 49 QRSd 88 QRS 41 QT 382 T 55 QTc 449 Conclusion Sinus rhythm 83 normal axis no stemi
[2024-07-23 19:39] LABS: Troponin I 9 ng/L (<or=76)
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
[2024-07-23] MEDS: Isosorbide Mononitrate 30 MG TABCR PO (20:26)
[2024-07-23 21:18] LABS: TSH 2.51 uIU/mL (0.36-3.74)
[2024-07-23 21:36] LABS: COVID-19 PCR Negative (Negative); Influenza A PCR Negative (Negative); Influenza B PCR Negative (Negative); RSV PCR Negative (Negative)
[2024-07-23 21:37] LABS: Source NASOPHARYNX
[2024-07-24] VITALS (16 sets, daily range): BP systolic 113–166; BP diastolic 60–101; PULSE 78–94; RESP 13–30; TEMP 36.4–36.6; O2SAT 95–98
[2024-07-24] MEDS: Isosorbide Dinitrate 10 MG TAB 30 MG PO ×5 (00:24→20:03)
[2024-07-24] MEDS: QUEtiapine 100 MG TAB 200 MG PO ×2 (01:08→21:36)
--- NOTE | 2024-07-24 01:56 | W.PC.ACHO ---
Registration Status: Primary Language: Preferred Language: ED Information & Data Chief Complaint Chest Pain 07/23/24 16:26 Triage Note Pt reports Chest pain that 07/23/24 15:46 radiates to his left arm, took 2 nitro with no effect, pain started a couple of hours ago, SOB and dizziness associated with CP Medical / Surgical History (Last Reviewed 07/23/24 @ 19:39 by Sergio Chaudhari) Partial tear of left rotator cuff Atypical chest pain Sensory hearing loss, bilateral (04/09/14) Hypertrophy of nasal turbinates (08/05/15) Deviated nasal septum (08/05/15) Trochanteric bursitis, right hip Tendinitis involving hip abductors Acute serous otitis media of left ear Lumbar contusion Blunt head trauma BABS (acute kidney injury) Lipoma of lower extremity Alcohol abuse Tinea pedis History of subdural hematoma Hip joint pain Callus of foot Pain, joint, shoulder region, left Ataxia Left cervical radiculopathy Cecal volvulus Viral URI with cough UTI (urinary tract infection) Rhinorrhea Knee pain, right Rathke's pouch cyst Hx of traumatic brain injury Migraine headache Recurrent UTI Constipation, chronic Pain in joint of right foot Left rib fracture Contusion of right hip Head trauma Right sided weakness Urethral stricture (08/20/15) Postnasal drip (05/13/15) H/O alcohol abuse MRSA infection Depression Colon polyps Urethral stricture Chronic low back pain Diastasis recti Headaches due to 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 Hx of deep venous thrombosis (Last Reviewed 07/23/24 @ 19:39 by Sergio Chaudhari) History of cardiac cath History of colonoscopy with polypectomy (~09/24/22) facial lesion removal electroconvulsive therapy Repair of umbilical hernia Repair of inguinal hernia (08/05/17) Colonoscopy - MAC Extraction of cataract Coronary Artery Bypass Gaft (CABG) Appendectomy (06/01/16) Most Recent Vital Signs Temperature 36.4 C L 07/23/24 22:20 Temperature Source Temporal Artery Scan 07/23/24 22:20 Pulse 73 07/23/24 22:20 Pulse 77 07/23/24 22:01 Respiratory Rate 20 07/23/24 22:20 Respiratory Effort Normal, Non-Labored 07/23/24 22:20 Respiratory Depth Normal 07/23/24 22:20 Respiratory Pattern Normal 07/23/24 22:20 Blood Pressure 176/94 H 07/23/24 22:20 Blood Pressure Mean 117 07/23/24 22:01 Blood Pressure Position Sitting 07/23/24 15:46 Pulse Oximetry 97 07/23/24 22:20 Oxygen Delivery Method Room Air 07/23/24 22:20 Oxygen Flow Rate 0 07/23/24 22:20 Pain Level 4 07/23/24 23:58 Allergies amoxicillin Allergy (Severe, Verified 07/23/24 15:55) breathing difficuty and vomiting Penicillins Allergy (Intermediate, Verified 07/23/24 15:55) Skin Rash sulfamethoxazole (From Bactrim) Allergy (Intermediate, Verified 07/23/24 15:55) Skin Rash trimethoprim (From Bactrim) Allergy (Intermediate, Verified 07/23/24 15:55) Skin Rash oxycodone HCl (From Percocet) Adverse Reaction (Severe, Verified 07/23/24 15:55) Contraindicated stares into space oxycodone terephthalate (From Percodan) Adverse Reaction (Severe, Verified 07/23/24 15:55) Contraindicated stares into space Precautions Isolation Standard precaution 07/23/24 15:54 Active Medications Generic Name Dose Route Start Last Admin Trade Name Freq PRN Reason Stop Dose Admin Insulin Aspart 0 units 07/23/24 22:00 07/23/24 23:38 Insulin Aspart 300 Units/3 Ml Pen SC Not Given 0800,1200,1700,2200 [facility] Protocol Isosorbide Dinitrate 30 mg 07/24/24 00:00 07/24/24 00:24 Isosorbide Dinitrate 10 Mg Tab PO 30 mg QID ALESSIO Administration Nitroglycerin 0.4 mg 07/23/24 15:55 07/23/24 23:58 Nitroglycerin 0.4 Mg Tab SL 0.4 mg Q5 MIN PRN X3 PRN Administration Sodium Chloride 0 ml 07/23/24 20:00 07/23/24 23:37 Normal Saline Flush 10 Ml Syr IVP Not Given BID [facility] IV IV Catheter Type [Right Saline Lock Antecubital] IV Catheter Type [Right Saline Lock Antecubital] IV Catheter Gauge [Right 18 Antecubital] IV Catheter Gauge [Right 18 Antecubital] Diet Orders Category Date Time Status Diabetes Consistent CHO/Heart Healthy [DIET] Nutrition 07/24/24 Breakfast Active Diagnostics 07/24/24 07/23/24 07/23/24 Range/Units 05:35 20:55 19:15 WBC Pending (4.4-10.8) 10^3/uL RBC Pending (4.36-5.78) 10^6/uL Hgb Pending (13.5-17.5) g/dL Hct Pending (40.0-50.0) % MCV Pending (80-95) fL MCH Pending (27.0-33.0) pg MCHC Pending (32.0-36.0) % RDW Pending (11.8-14.1) % Plt Count Pending (130-400) 10^3/uL MPV Pending (8.0-11.0) fL Immature Gran % % Neutrophils % % Lymphocytes % % Monocytes % % Eosinophils % % Basophils % % Nucleated RBC % (0.0-0.3) % Absolute Neutrophils (1.2-6.7) 10^3/uL Absolute Lymphocytes (1.2-3.4) 10^3/uL Absolute Monocytes (0.1-0.8) 10^3/uL Absolute Eosinophils (0.0-0.7) 10^3/uL Absolute Basophils (0.0-0.2) 10^3/uL PT (9.1-11.1) sec INR (0.9-1.1) Sodium Pending (136-145) mmol/L Potassium Pending (3.5-5.1) mmol/L Chloride Pending (98-107) mmol/L Carbon Dioxide Pending (21.0-32.0) mmol/L Anion Gap Pending (3-11) mmol/L BUN Pending (7-18) mg/dL Creatinine Pending (0.70-1.30) mg/dL Est GFR (CKD-EPI 2020) Pending (mL/min/1.73m2) Glucose Pending (74-106) mg/dL Calcium Pending (8.5-10.1) mg/dL Total Bilirubin Pending (0.2-1.0) mg/dL AST Pending (15-37) U/L ALT Pending (16-63) U/L Alkaline Phosphatase Pending (46-116) U/L Troponin I Pending 9 (<or=76) ng/L NT-Pro-B Natriuret Pep (<300) pg/mL Total Protein Pending (6.4-8.2) g/dL Albumin Pending (3.4-5.0) g/dL TSH 2.51 (0.36-3.74) uIU/mL COVID-19 Source NASOPHARYNX SARS-CoV-2 (PCR) Negative (Negative) Influenza Type A (PCR) Negative (Negative) Influenza Type B (PCR) Negative (Negative) RSV (PCR) Negative (Negative) 07/23/24 07/23/24 Range/Units 17:08 16:11 WBC 6.69 (4.4-10.8) 10^3/uL RBC 4.27 L (4.36-5.78) 10^6/uL Hgb 12.8 L (13.5-17.5) g/dL Hct 38.8 L (40.0-50.0) % MCV 91 (80-95) fL MCH 30.0 (27.0-33.0) pg MCHC 33.0 (32.0-36.0) % RDW 14.3 H (11.8-14.1) % Plt Count 175 (130-400) 10^3/uL MPV 8.8 (8.0-11.0) fL Immature Gran % 0.9 % Neutrophils % 67.7 % Lymphocytes % 17.8 % Monocytes % 9.0 % Eosinophils % 3.4 % Basophils % 1.2 % Nucleated RBC % 0.0 (0.0-0.3) % Absolute Neutrophils 4.53 (1.2-6.7) 10^3/uL Absolute Lymphocytes 1.19 L (1.2-3.4) 10^3/uL Absolute Monocytes 0.60 (0.1-0.8) 10^3/uL Absolute Eosinophils 0.23 (0.0-0.7) 10^3/uL Absolute Basophils 0.08 (0.0-0.2) 10^3/uL PT 9.6 (9.1-11.1) sec INR 1.0 (0.9-1.1) Sodium 140 (136-145) mmol/L Potassium 4.0 (3.5-5.1) mmol/L Chloride 105 (98-107) mmol/L Carbon Dioxide 26.8 (21.0-32.0) mmol/L Anion Gap 8.2 (3-11) mmol/L BUN 15 (7-18) mg/dL Creatinine 1.9 H (0.70-1.30) mg/dL Est GFR (CKD-EPI 2020) 36.56 (mL/min/1.73m2) Glucose 207 H (74-106) mg/dL Calcium 8.8 (8.5-10.1) mg/dL Total Bilirubin 0.31 (0.2-1.0) mg/dL AST 10 L (15-37) U/L ALT 26 (16-63) U/L Alkaline Phosphatase 89 (46-116) U/L Troponin I 10 9 (<or=76) ng/L NT-Pro-B Natriuret Pep 302 H (<300) pg/mL Total Protein 7.4 (6.4-8.2) g/dL Albumin 4.0 (3.4-5.0) g/dL TSH (0.36-3.74) uIU/mL COVID-19 Source SARS-CoV-2 (PCR) (Negative) Influenza Type A (PCR) (Negative) Influenza Type B (PCR) (Negative) RSV (PCR) (Negative) [id number] Documentation Fingerstick Glucose Start: 07/23/24 20:24 Freq: AC & HS Status: Active Protocol: Activity Type Activity Date Activity User E-sign Co-sign Detail Recorded Client Recorded Date Recorded By Document 07/23/24 23:08 BKG DAEMON(3) [id number] 07/23/24 23:10 BKG DAEMON(4) Intake and Output - 24 Hour Total 07/23/24 15:42 thru 07/24/24 01:29 Intake Total 1520 Output Total 1300 Balance 220 Weight 95.2 kg Intake: IV 20 Oral 1500 Output: Urine 1300 Other: Urine Color Pale Yellow Urine Appearance Clear Urine Odor None Falls Risk Assessment History of Falls Previous History 07/23/24 22:20 Contributing Factors Impairments,Medications 07/23/24 22:20 Ambulatory Aids Uses ambulatory device 07/23/24 22:20 Tubes/Lines With any additional score 07/23/24 22:20 Gait Evaluation No gait disturbance 07/23/24 22:20 Cognition No cognitive impairment 07/23/24 22:20 Fall Total Score 56 07/23/24 22:20 Level of Risk High Risk 07/23/24 22:20 Problems (Last Reviewed 07/23/24 @ 19:39 by Sergio Chaudhari) Coronary artery vasospasm (Acute) Chest pain (Acute) Atherosclerosis of coronary artery of transplanted heart with unstable angina pectoris (Acute) 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) Chronic kidney disease (CKD) stage G3b/A1, moderately decreased glomerular filtration rate (GFR) between 30-44 mL/min/1.73 square meter and albuminuria creatinine ratio less than 30 mg/g (Chronic) Coronary artery disease (Chronic) v v v v v v v v v Sending and/or Receiving Nurses: Please use comment section below to note any information pertinent to the patient hand-off not included above. Information / Comments: Report received from:Gini Harris RN
[2024-07-24] MEDS: Levothyroxine 50 MCG TAB PO (05:49)
[2024-07-24] MEDS: Acetaminophen 325 MG TAB 650 MG PO ×2 (06:38→20:03)
[2024-07-24] MEDS: Mylanta Suspension 30 ML CUP PO ×2 (06:45→13:44)
[2024-07-24] MEDS: nitroGLYcerin 0.4 MG TAB SL ×8 (06:48→17:59)
[2024-07-24 07:02] LABS: HCT 35.5 % (40.0-50.0); HGB 12.4 g/dL (13.5-17.5); MCH 30.5 pg (27.0-33.0); MCHC 34.9 % (32.0-36.0); MCV 87 fL (80-95); MPV 9.5 fL (8.0-11.0); Platelet Count 183 10^3/uL (130-400); RBC 4.06 10^6/uL (4.36-5.78); RDW 14.2 % (11.8-14.1); RDW-SD 44.9 fL; WBC 6.45 10^3/uL (4.4-10.8)
[2024-07-24 07:27] LABS: ALT 23 U/L (16-63); AST 12 U/L (15-37); Albumin 3.4 g/dL (3.4-5.0); Alkaline Phosphatase 79 U/L (46-116); Anion Gap 11.1 mmol/L (3-11); BUN 16 mg/dL (7-18); Bilirubin, Total 0.36 mg/dL (0.2-1.0); CO2 22.9 mmol/L (21.0-32.0); CREATININE 1.6 mg/dL (0.70-1.30); Calcium 8.3 mg/dL (8.5-10.1); Chloride 106 mmol/L (98-107); Estimated GFR 44.93 (mL/min/1.73m2); Glucose 160 mg/dL (74-106); Potassium 3.5 mmol/L (3.5-5.1); Sodium 140 mmol/L (136-145); Total Protein 6.5 g/dL (6.4-8.2); Troponin I 18 ng/L (<or=76)
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
[2024-07-24] MEDS: Insulin Aspart 300 UNITS/3 ML PEN SC ×4 (08:35→21:37)
[2024-07-24] MEDS: Metoprolol CR 50 MG TABCR PO (08:36)
[2024-07-24] MEDS: Lisinopril 20 MG TAB PO (08:36)
[2024-07-24] MEDS: Ranolazine 500 MG TABCR PO ×2 (08:36→20:02)
[2024-07-24] MEDS: Pregabalin 100 MG CAP PO (08:36)
[2024-07-24] MEDS: Multivitamin TAB 1 TAB PO (08:37)
[2024-07-24] MEDS: Mirabegron 25 MG TABCR PO (08:37)
[2024-07-24] MEDS: Acetylcysteine 600 MG CAP PO ×2 (08:37→20:03)
[2024-07-24] MEDS: Atorvastatin 40 MG TAB 80 MG PO (08:37)
[2024-07-24] MEDS: Citalopram 20 MG TAB PO (08:37)
[2024-07-24] MEDS: amLODIPine 2.5 MG TAB PO (08:37)
[2024-07-24] MEDS: Allopurinol 300 MG TAB PO (08:38)
[2024-07-24] MEDS: Normal Saline Flush 10 ML SYR IVP ×2 (08:38→20:04)
[2024-07-24] MEDS: Finasteride 5 MG TAB PO (08:46)
--- NOTE | 2024-07-24 13:20 | PGE_ITS ---
Date of Service Date of service: 07/24/24 Time of Service: 13:20 Assessment and Plan Assessment and plan (1) Atherosclerosis of [place] coronary artery of [place] heart with unstable angina pectoris: Start date: 07/23/24 Status: Acute Assessment and plan: -presented with resting angina pectoralis pressure was positive nitroglycerin an d then completely responsive to nitroglycerin sublingually in the ED. -Has history of coronary artery disease, as well as recent normal cardiac catheterization -troponins were negative and EKG showed no acute ischemic changes. -has a history of spontaneous subdural hematomas and [facility] cardi[place] wanted to minimize cardiac catheterization and did not advise aspirin, Plavix or anticoagulation with P Lovenox or heparin at this time. -Recommendation from [facility] was to increase nitro from Imdur 60 daily to dinitrate 30 4 times daily -Troponins have remained negative -Continue home beta-yamilet -Initiate high-dose statin (2) Type 2 diabetes mellitus with peripheral neuropathy: Status: Chronic Assessment and plan: -holding outpatient medical therapy -Sliding scale insulin, carb consistent diet while hospitalized (3) Chronic kidney disease (CKD) stage G3b/A1, moderately decreased glomerular filtration rate (GFR) between 30-44 mL/min/1.73 square meter and albuminuria creatinine ratio less than 30 mg/g: Status: Chronic Assessment and plan: Stable with patient to be monitored while hospitalized. Lisinopril dose will be decreased. (4) Dementia: Status: Chronic Assessment and plan: Stable, continue outpatient medical therapy. (5) Hypothyroidism: Status: Chronic Assessment and plan: Check TSH and continue outpatient therapy. (6) Hypertension: Status: Chronic Assessment and plan: Adjust outpatient medical therapy by decreasing lisinopril while increasing dosing of isosorbide and nitrate. Other medications will not be changed mentation on metoprolol. Subjective Subjective Interval history since last seen: Patient states that he is continuing to have some intermittent chest pain described as substernal with radiating to his left hand but has been relieved with nitroglycerin. Otherwise he is unable to give additional information or description of how he is feeling or his chest pain. Exam Narrative Exam Narrative: Mildly acutely ill-appearing older gentleman laying in bed in no acute distress, ANO x 4, heart regular rhythm, lungs clear to auscultation bilaterally, abdomen soft, nontender, nondistended Objective Last Vital Signs Temp 97.5 F L 07/24/24 05:51 Pulse 93 H 07/24/24 08:01 Resp 23 07/24/24 08:01 BP 134/96 H 07/24/24 08:01 Pulse Ox 97 07/24/24 08:01 Laboratory Results - last 24 hr 07/23/24 07/23/24 07/23/24 16:11 17:08 19:15 WBC 6.69 RBC 4.27 L Hgb 12.8 L Hct 38.8 L MCV 91 MCH 30.0 MCHC 33.0 RDW 14.3 H Plt Count 175 MPV 8.8 Immature Gran % 0.9 Neutrophils % 67.7 Lymphocytes % 17.8 Monocytes % 9.0 Eosinophils % 3.4 Basophils % 1.2 Nucleated RBC % 0.0 Absolute Neutrophils 4.53 Absolute Lymphocytes 1.19 L Absolute Monocytes 0.60 Absolute Eosinophils 0.23 Absolute Basophils 0.08 PT 9.6 INR 1.0 Sodium 140 Potassium 4.0 Chloride 105 Carbon Dioxide 26.8 Anion Gap 8.2 BUN 15 Creatinine 1.9 H Est GFR (CKD-EPI 2020) 36.56 Glucose 207 H Calcium 8.8 Total Bilirubin 0.31 AST 10 L ALT 26 Alkaline Phosphatase 89 Troponin I 9 10 9 NT-Pro-B Natriuret Pep 302 H Total Protein 7.4 Albumin 4.0 TSH 2.51 COVID-19 Source SARS-CoV-2 (PCR) Influenza Type A (PCR) Influenza Type B (PCR) RSV (PCR) 07/23/24 07/24/24 20:55 05:25 WBC 6.45 RBC 4.06 L Hgb 12.4 L Hct 35.5 L MCV 87 D MCH 30.5 MCHC 34.9 RDW 14.2 H Plt Count 183 MPV 9.5 Immature Gran % Neutrophils % Lymphocytes % Monocytes % Eosinophils % Basophils % Nucleated RBC % Absolute Neutrophils Absolute Lymphocytes Absolute Monocytes Absolute Eosinophils Absolute Basophils PT INR Sodium 140 Potassium 3.5 Chloride 106 Carbon Dioxide 22.9 Anion Gap 11.1 H BUN 16 Creatinine 1.6 H Est GFR (CKD-EPI 2020) 44.93 Glucose 160 H Calcium 8.3 L Total Bilirubin 0.36 AST 12 L ALT 23 Alkaline Phosphatase 79 Troponin I 18 NT-Pro-B Natriuret Pep Total Protein 6.5 Albumin 3.4 TSH COVID-19 Source NASOPHARYNX SARS-CoV-2 (PCR) Negative Influenza Type A (PCR) Negative Influenza Type B (PCR) Negative RSV (PCR) Negative Time Spent with Patient Time Spent with Patient: >50 minutes Time was spent: preparing to see the patient(eg.review tests), obtaining and/or reviewing separately otained hiistory, ordering medications,tests, procedures, referring, communicating with other health certified caregiver, indepentently interpreting results, counseling the patient and care coordination
[2024-07-24] MEDS: LORazepam 0.5 MG TAB PO ×2 (13:40→21:36)
--- NOTE | 2024-07-24 14:00 | RT.EKG_ITS ---
APPROVED REPORT Exam: Resting ECG Reason for Exam: chest pain Patient Location: I HR:89 bpm ECG Measurements Heart Rate 89 AXIS IA 130 P 47 QRSd 85 QRS 28 QT 488 T 161 QTc 594 Conclusion Sinus rhythm...normal P axis, V-rate 50- 99 Consider left atrial enlargement...wide or notched P waves Abnormal R-wave progression, early transition...QRS area>0 in V2 Nonspecific T abnrm, anterolateral leads...T <-0.10mV, I aVL V2-V6 Prolonged QT interval...QTc >500mS
[2024-07-24 15:13] LABS: Troponin I 10 ng/L (<or=76)
[2024-07-24] MEDS: Pantoprazole 40 MG TABCR PO (15:52)
[2024-07-24] MEDS: Milk of Magnesia 30 ML CUP PO (20:02)
[2024-07-24] MEDS: Topiramate 50 MG TAB PO (20:04)
[2024-07-25] VITALS (82 sets, daily range): BP systolic 104–158; BP diastolic 68–98; PULSE 79–107; RESP 11–36; TEMP 36.5–37.3; O2SAT 92–99
[2024-07-25] MEDS: nitroGLYcerin 0.4 MG TAB SL (04:27)
[2024-07-25 06:01] LABS: HCT 36.4 % (40.0-50.0); HGB 12.4 g/dL (13.5-17.5); MCH 30.2 pg (27.0-33.0); MCHC 34.1 % (32.0-36.0); MCV 89 fL (80-95); MPV 9.2 fL (8.0-11.0); Platelet Count 178 10^3/uL (130-400); RBC 4.11 10^6/uL (4.36-5.78); RDW 14.1 % (11.8-14.1); RDW-SD 45.3 fL; WBC 6.27 10^3/uL (4.4-10.8)
[2024-07-25 06:23] LABS: ALT 25 U/L (16-63); AST 9 U/L (15-37); Albumin 3.5 g/dL (3.4-5.0); Alkaline Phosphatase 79 U/L (46-116); Anion Gap 10.9 mmol/L (3-11); BUN 19 mg/dL (7-18); Bilirubin, Total 0.43 mg/dL (0.2-1.0); CO2 23.1 mmol/L (21.0-32.0); CREATININE 1.8 mg/dL (0.70-1.30); Calcium 8.6 mg/dL (8.5-10.1); Chloride 107 mmol/L (98-107); Estimated GFR 39.01 (mL/min/1.73m2); Glucose 161 mg/dL (74-106); Potassium 3.8 mmol/L (3.5-5.1); Sodium 141 mmol/L (136-145); Total Protein 6.8 g/dL (6.4-8.2)
[2024-07-25] MEDS: Levothyroxine 50 MCG TAB PO (06:25)
[2024-07-25] MEDS: Docusate Sodium 100 MG CAP PO ×2 (06:25→13:50)
[2024-07-25] MEDS: Acetaminophen 325 MG TAB 650 MG PO (06:25)
[2024-07-25] MEDS: Insulin Aspart 300 UNITS/3 ML PEN SC ×4 (08:31→20:54)
[2024-07-25] MEDS: Polyethylene Glycol 3350 17 GM PACKET PO (08:39)
[2024-07-25] MEDS: Normal Saline Flush 10 ML SYR IVP ×2 (08:40→20:48)
[2024-07-25] MEDS: amLODIPine 2.5 MG TAB PO (08:41)
[2024-07-25] MEDS: Metoprolol CR 50 MG TABCR PO ×2 (08:41→15:18)
[2024-07-25] MEDS: Pregabalin 100 MG CAP PO (08:42)
[2024-07-25] MEDS: Isosorbide Dinitrate 10 MG TAB 30 MG PO ×4 (08:42→20:47)
[2024-07-25] MEDS: Multivitamin TAB 1 TAB PO (08:42)
[2024-07-25] MEDS: Mirabegron 25 MG TABCR PO (08:42)
[2024-07-25] MEDS: Lisinopril 20 MG TAB PO (08:42)
[2024-07-25] MEDS: Finasteride 5 MG TAB PO (08:43)
[2024-07-25] MEDS: Ketoconazole 2% CREAM 15 GM TUBE TP (08:43)
[2024-07-25] MEDS: Ranolazine 500 MG TABCR PO ×2 (08:43→20:47)
[2024-07-25] MEDS: Atorvastatin 40 MG TAB 80 MG PO (08:43)
[2024-07-25] MEDS: Milk of Magnesia 30 ML CUP PO (08:44)
[2024-07-25] MEDS: Acetylcysteine 600 MG CAP PO ×2 (08:48→20:46)
[2024-07-25] MEDS: Allopurinol 300 MG TAB PO (08:49)
[2024-07-25] MEDS: dilTIAZem CD 120 MG CAPCR PO (08:49)
[2024-07-25] MEDS: Citalopram 20 MG TAB PO (08:54)
--- NOTE | 2024-07-25 09:36 | W.NUTRFU ---
Date of service: 07/25/24 Time of Service: 09:36 Nutrition Note NOTE: visited with pt and his (who does the majority of cooking and shopping for the household). Fredo manages diabetes with a recent A1c of 6.3% last summer with a hx of 6's and 7's in recent years. total protein and albumin labs wnl. reports last BM was Wednesday and only a little bit. Agree to some prunes last night at supper and will order routinely if helps. Lives at home with and son - checks glucose BID fasting and evening. takes 50u degludec daily and 1,000mg metformin BID. Ordered for TID and 22:00 corrections with novolog on sliding scale with metformin on hold. Current GFR 39.01 ordered appropriately for CHO consistent and heart healthy diet this admission. fasting glucose 161 this mongning and 183 at breakfast - glucose look close to target. Hx of low vitamin D lab and no supplement on home med list and none ordered currently -would expect low due to declining kidney fxn and geographical location this time of year. would recommend: -vitamin D lab with corrective supplementation if low -10u insulin glargine to help with between meal and fasting glucose along with his sliding scale for corrections. Time Spent in Nutritional Counseling and Treatment: 10 minutes
--- NOTE | 2024-07-25 09:41 | CMPROGNOTE_ITS ---
Date of service: 07/25/24 Time of Service: 09:41 Care Management Progress Note Progress Note Text Progress Note Text: There are no changes to Ryan discharge plan at this time; he is sleeping and appears comfortable when CM attempted to meet with him. He continues to be closely monitored and treated in the ICU; [facility] is consulted recommendations have been provided. CM will follow. Discharge Potential Discharge Needs: PCP F/U Appt and Other (Cardiology) Anticipated Barriers to Discharge: Medical Status Patient/Family Education Needs: Review discharge instructions, discuss Ask Me Three Transportation: Private vehicle Plan: Anticipate Fredo will be discharged home with no new services when medically cleared. He will follow up with his community providers and plan of care and transport with family. CM will follow and continue to assess for discharge needs. Social Determinants of Health Screening Social Determinants of Health last assessed: 07/25/24 Will the Patient Participate in the Screening?: Yes Do you worry about having a steady place to live?: no Problems where you live: no known problems In the past 12 months, have you had to go without electric, gas, oil or water in your home?: no Have you or anyone in your house had to go without enough food to eat?: no Has lack of transportation kept you from medical appointments or from doing things needed for daily living?: no Has anyone in your life made you feel unsafe or unsupported?: no How hard is it for you to pay for the very basics like food, housing, medical care, and heating? Would you say it is:: Not hard at all Do you want help finding or keeping work or a job?: I do not need or want help If for any reason you need help with day-to-day activities such as bathing, preparing meals, shopping, managing finances, etc., do you get the help you need?: I get all the help I need How often do you feel lonely or isolated from those around you?: Never Do you speak a language other than Urdu at home?: No Does the patient want assistance with any of the above?: No
[2024-07-25] MEDS: LORazepam 0.5 MG TAB PO ×2 (11:30→12:28)
[2024-07-25] MEDS: Calcium Carbonate *TUMS* 500 MG CHEW 1000 MG PO ×2 (11:31→15:19)
[2024-07-25] MEDS: Senna TAB 1 TAB PO (13:51)
--- NOTE | 2024-07-25 15:34 | W.PM.PROGNOT ---
Date of Service Date of service: 07/25/24 Time of Service: 15:38 Assessment and Plan Assessment and plan (1) Atherosclerosis of [place] coronary artery of [place] heart with unstable angina pectoris: Start date: 07/23/24 Status: Acute Assessment and plan: -presented with resting angina pectoralis pressure was positive nitroglycerin and then completely responsive to nitroglycerin sublingually in the ED. -Has history of coronary artery disease, as well as recent normal cardiac catheterization -troponins were negative and EKG showed no acute ischemic changes. -has a history of spontaneous subdural hematomas and [facility] cardiology wanted to minimize cardiac catheterization and did not advise aspirin, Plavix or anticoagulation with P Lovenox or heparin at this time. -Recommendation from [facility] was to increase nitro from Imdur 60 daily to dinitrate 30 4 times daily -Additional discussion with [facility] cardiology; -explained that patient's spontaneous intracranial hemorrhage was not significant enough to require neurosurgical intervention with bur holes and occurred while he was on anticoagulation status post CABG -Therefore, it is understandable that they are hesitant to do cardiac catheterization as either exposing the patient to heparin during the procedure, or if intervention is required, anticoagulation status post PCI would put him at significant risk for additional episodes of intracranial hemorrhage At this time, recommendation is for as needed EKGs and troponins when the patient is having chest pain, continue isosorbide dinitrate 30 mg p.o. 4 times daily, sublingual nitro as needed, and to increase antianginals as tolerated which include ranolazine, amlodipine, metoprolol, and diltiazem -However, discussion was had with pharmacy, patient has a borderline elevated QT, and would avoid increasing ranolazine and diltiazem at this time -At this time we will increase patient's Toprol-XL from 50 to 100 mg daily, with an additional 50 mg dose given early on the afternoon of 07/25/2024 (2) Type 2 diabetes mellitus with peripheral neuropathy: Status: Chronic Assessment and plan: -holding outpatient medical therapy -Sliding scale insulin, carb consistent diet while hospitalized (3) Chronic kidney disease (CKD) stage G3b/A1, moderately decreased glomerular filtration rate (GFR) between 30-44 mL/min/1.73 square meter and albuminuria creatinine ratio less than 30 mg/g: Status: Chronic Assessment and plan: Stable with patient to be monitored while hospitalized. Lisinopril dose will be decreased. (4) Dementia: Status: Chronic Assessment and plan: Stable, continue outpatient medical therapy. (5) Hypothyroidism: Status: Chronic Assessment and plan: Check TSH and continue outpatient therapy. (6) Hypertension: Status: Chronic Assessment and plan: Adjust outpatient medical therapy by decreasing lisinopril while increasing dosing of isosorbide and nitrate. Other medications will not be changed mentation on metoprolol. Subjective Subjective Interval history since last seen: Patient states that he is continuing to have episodes of chest pain. It was explained to him that discussion with [facility] cardiology was to continue to increasing his antianginal medication and to continue to check his troponins and EKG. Exam Narrative Exam Narrative: Mildly acutely ill-appearing older gentleman laying in bed in no acute distress, ANO x 4, heart regular rhythm, lungs clear to auscultation bilaterally, abdomen soft, nontender, nondistended Objective Last Vital Signs Temp 97.7 F 07/25/24 14:01 Pulse 89 07/25/24 14:01 Resp 20 07/25/24 14:01 BP 140/89 07/25/24 14:01 Pulse Ox 97 07/25/24 14:01 Laboratory Results - last 24 hr 07/25/24 05:15 WBC 6.27 RBC 4.11 L Hgb 12.4 L Hct 36.4 L MCV 89 MCH 30.2 MCHC 34.1 RDW 14.1 Plt Count 178 MPV 9.2 Sodium 141 Potassium 3.8 Chloride 107 Carbon Dioxide 23.1 Anion Gap 10.9 BUN 19 H Creatinine 1.8 H Est GFR (CKD-EPI 2020) 39.01 Glucose 161 H Calcium 8.6 Total Bilirubin 0.43 AST 9 L ALT 25 Alkaline Phosphatase 79 Total Protein 6.8 Albumin 3.5 Time Spent with Patient Time Spent with Patient: >50 minutes Time was spent: preparing to see the patient(eg.review tests), obtaining and/or reviewing separately otained hiistory, ordering medications,tests, procedures, referring, communicating with other health care partner, indepentently interpreting results, counseling the patient and care coordination
[2024-07-25] MEDS: Pantoprazole 40 MG TABCR PO (16:12)
[2024-07-25 16:39] LABS: Troponin I 10 ng/L (<or=76)
[2024-07-25] MEDS: Topiramate 50 MG TAB PO (20:46)
[2024-07-25] MEDS: QUEtiapine 100 MG TAB 200 MG PO (20:47)
[2024-07-25] MEDS: traMADol 50 MG TAB PO (23:04)
[2024-07-26] VITALS (15 sets, daily range): BP systolic 93–130; BP diastolic 62–87; PULSE 70–125; RESP 10–26; TEMP 36.6–36.8; O2SAT 94–98
[2024-07-26] MEDS: Levothyroxine 50 MCG TAB PO (05:37)
[2024-07-26 05:40] LABS: HCT 36.9 % (40.0-50.0); HGB 12.3 g/dL (13.5-17.5); MCH 30.1 pg (27.0-33.0); MCHC 33.3 % (32.0-36.0); MCV 90 fL (80-95); MPV 9.3 fL (8.0-11.0); Platelet Count 172 10^3/uL (130-400); RBC 4.08 10^6/uL (4.36-5.78); RDW 14.3 % (11.8-14.1); RDW-SD 46.4 fL; WBC 6.67 10^3/uL (4.4-10.8)
[2024-07-26 05:57] LABS: ALT 25 U/L (16-63); AST 11 U/L (15-37); Albumin 3.5 g/dL (3.4-5.0); Alkaline Phosphatase 78 U/L (46-116); Anion Gap 9.8 mmol/L (3-11); BUN 18 mg/dL (7-18); Bilirubin, Total 0.31 mg/dL (0.2-1.0); CO2 24.2 mmol/L (21.0-32.0); CREATININE 1.9 mg/dL (0.70-1.30); Calcium 8.6 mg/dL (8.5-10.1); Chloride 106 mmol/L (98-107); Estimated GFR 36.56 (mL/min/1.73m2); Glucose 238 mg/dL (74-106); Potassium 4.3 mmol/L (3.5-5.1); Sodium 140 mmol/L (136-145); Total Protein 6.7 g/dL (6.4-8.2)
[2024-07-26] MEDS: Atorvastatin 40 MG TAB 80 MG PO (07:59)
[2024-07-26] MEDS: Metoprolol CR 50 MG TABCR 100 MG PO (07:59)
[2024-07-26] MEDS: Lisinopril 20 MG TAB PO (08:00)
[2024-07-26] MEDS: Mirabegron 25 MG TABCR PO (08:00)
[2024-07-26] MEDS: dilTIAZem CD 120 MG CAPCR PO (08:00)
[2024-07-26] MEDS: Isosorbide Dinitrate 10 MG TAB 30 MG PO ×2 (08:00→11:50)
[2024-07-26] MEDS: Multivitamin TAB 1 TAB PO (08:01)
[2024-07-26] MEDS: Acetylcysteine 600 MG CAP PO (08:01)
[2024-07-26] MEDS: Ranolazine 500 MG TABCR PO (08:01)
[2024-07-26] MEDS: Pregabalin 100 MG CAP PO (08:01)
[2024-07-26] MEDS: Finasteride 5 MG TAB PO (08:01)
[2024-07-26] MEDS: Citalopram 20 MG TAB PO (08:05)
[2024-07-26] MEDS: Normal Saline Flush 10 ML SYR IVP (08:05)
[2024-07-26] MEDS: Allopurinol 300 MG TAB PO (08:05)
[2024-07-26] MEDS: Insulin Aspart 300 UNITS/3 ML PEN SC ×2 (08:06→11:50)
[2024-07-26] MEDS: Ketoconazole 2% CREAM 15 GM TUBE TP (08:06)
--- NOTE | 2024-07-26 08:48 | PDOC.CMPRO ---
Date of service: 07/26/24 Time of Service: 08:48 Care Management Progress Note Progress Note Text Progress Note Text: There are no changes to Ryan discharge plan at this time; he is sleeping and appears comfortable when CM attempted to meet with him. He continues to be closely monitored and treated in the ICU; [facility] is consulted recommendations have been provided. CM will follow. Discharge Potential Discharge Needs: PCP F/U Appt and Other (Cardiology) Anticipated Barriers to Discharge: Medical Status Patient/Family Education Needs: Review discharge instructions, discuss Ask Me Three Transportation: Private vehicle Plan: Anticipate Fredo will be discharged home with no new services when medically cleared. He will follow up with his community providers and plan of care and transport with family. CM will follow and continue to assess for discharge needs. Social Determinants of Health Screening Social Determinants of Health last assessed: 07/26/24 Will the Patient Participate in the Screening?: Yes Do you worry about having a steady place to live?: no Problems where you live: no known problems In the past 12 months, have you had to go without electric, gas, oil or water in your home?: no Have you or anyone in your house had to go without enough food to eat?: no Has lack of transportation kept you from medical appointments or from doing things needed for daily living?: no Has anyone in your life made you feel unsafe or unsupported?: no How hard is it for you to pay for the very basics like food, housing, medical care, and heating? Would you say it is:: Not hard at all Do you want help finding or keeping work or a job?: I do not need or want help If for any reason you need help with day-to-day activities such as bathing, preparing meals, shopping, managing finances, etc., do you get the help you need?: I get all the help I need How often do you feel lonely or isolated from those around you?: Never Do you speak a language other than [place] at home?: No Does the patient want assistance with any of the above?: No
[2024-07-26] MEDS: amLODIPine 2.5 MG TAB PO (09:12)
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
--- NOTE | 2024-07-26 14:45 | CMDISCH_ITS ---
Date of service: 07/26/24 Time of Service: 14:45 LACE Index Scoring Tool Questions: Length of Stay (in days): 3 Was the patient admitted via the E.D.?: Yes Comorbidities: Diabetes w/o Complication and Liver or Renal Disease E.D. Visits: 4 Answers: Total Score: 15 Risk of Readmission: High Risk Care Management Discharge Plan Reason for Hospitalization: Unstable Angina Discharge Plan: Fredo is discharged home with a plan to follow up with his PCP and Director Of Marketing [employer], as directed. No new services are ordered prior to discharge. Pt is transported by family. Patient/Family Education Needs: Review discharge instructions, limitations, medications and plan to follow up after discharge. Discuss ask me three. [facility] Health Related Social Needs: No Data to Display
--- NOTE | 2024-07-26 17:09 | CHAPLAIN ---
I visited with Fredo and his Madiha (a former [employer] employee) before he was discharged this afternoon. He said he's feeling better and the pains in his chest and arm are going. Madiha talked about their dog, and life at home.
== END 2024-07-26 15:29 | disposition home or self-care (01) | DRG 303 ==
LOC: ER 20:06 → ICU 22:14
PROVIDERS: Family Medicine; Admitting Provider Family Medicine; Emergency Provider Emergency Medicine; PCP Family Medicine; Visit Provider Family Medicine
DX: I25.111 Atherosclerotic heart disease of native coronary artery with angina pectoris with documented spasm (principal); F01.B18 Vascular dementia, moderate, with other behavioral disturbance; I25.110 Atherosclerotic heart disease of native coronary artery with unstable angina pectoris; E11.42 Type 2 diabetes mellitus with diabetic polyneuropathy; E11.22 Type 2 diabetes mellitus with diabetic chronic kidney disease; N18.32 Chronic kidney disease, stage 3b; I12.9 Hypertensive chronic kidney disease with stage 1 through stage 4 chronic kidney disease, or unspecified chronic kidney disease; E03.9 Hypothyroidism, unspecified; I25.2 Old myocardial infarction; Z95.5 Presence of coronary angioplasty implant and graft; I70.203 Unspecified atherosclerosis of native arteries of extremities, bilateral legs; I87.2 Venous insufficiency (chronic) (peripheral); G47.33 Obstructive sleep apnea (adult) (pediatric); K76.0 Fatty (change of) liver, not elsewhere classified; E55.9 Vitamin D deficiency, unspecified; K21.9 Gastro-esophageal reflux disease without esophagitis; D50.9 Iron deficiency anemia, unspecified; E53.8 Deficiency of other specified B group vitamins; R29.6 Repeated falls; E78.5 Hyperlipidemia, unspecified; M54.17 Radiculopathy, lumbosacral region; Z86.79 Personal history of other diseases of the circulatory system; Z79.4 Long term (current) use of insulin
CPT/HCPCS: 00123; 36415; 80053; 85027; 87637; 93005; 99285; 71045; 83880; 84443; 84484; 85025; 85610; 93010; 99223; 99233; 99239; J1815; J3490

== ENCOUNTER 2024-07-28 17:20 | Outpatient (REF) | payer MEDICARE, OTHER, SELFPAY ==
[2024-07-28 16:49] LABS: Vitamin B12 786 pg/mL (193-986)
== END 2024-07-28 17:21 | disposition home or self-care (01) ==
LOC: NCHCN 17:20
PROVIDERS: PCP Family Medicine; Visit Provider Family Medicine
DX: E53.8 Deficiency of other specified B group vitamins (principal)
CPT/HCPCS: 82607

== ENCOUNTER 2024-07-30 18:17 | Inpatient (IN) | payer MEDICARE, OTHER, SELFPAY ==
[2024-07-30] VITALS (58 sets, daily range): BP systolic 126–186; BP diastolic 54–98; PULSE 75–91; RESP 11–29; TEMP 36.7; O2SAT 95–100
--- NOTE | 2024-07-30 18:15 | RT.EKG_ITS ---
APPROVED REPORT Exam: Resting ECG Reason for Exam: chest pain Patient Location: E HR:84 bpm ECG Measurements Heart Rate 84 AXIS AZ 135 P 47 QRSd 93 QRS 33 QT 415 T 72 QTc 490 Conclusion Sinus rhythm...normal P axis, V-rate 60- 99 Nonspecific T abnormalities, lateral leads...T <-0.10mV, I aVL V5 V6 Borderline QT prolongation No ST segment or T wave abnormalities to suggest occlusive [place]
--- NOTE | 2024-07-30 18:15 | DI.RAD_ITS ---
Exam(s) XR CHEST 2V PA LATERAL EXAM: XR CHEST 2V PA LATERAL CLINICAL HISTORY: Chest pain. TECHNIQUE: 2D digital imaging was performed. COMPARISON: CR,XR XR PORTABLE CHEST AP from 07/23/2024 FINDINGS: 2 views: Again sternotomy wires and evidence of previous CABG. Heart size is normal. The mediastinum is not widened. Lungs are clear. No infiltrates nor pleural effusions. No pulmonary edema. IMPRESSION: No acute pulmonary findings.Previous CABG. No CHF. DATA REPOSITORY: RADIATION DOSE DELIVERED:
[2024-07-30 18:46] LABS: Abs Immature Grans 0.03 10^3/uL (0.0-0.06); Absolute Basophil Count 0.07 10^3/uL (0.0-0.2); Absolute Eosinophil Count 0.23 10^3/uL (0.0-0.7); Absolute Lymphocyte Count 1.11 10^3/uL (1.2-3.4); Absolute Monocyte Count 0.77 10^3/uL (0.1-0.8); Absolute Neutrophil Count 4.36 10^3/uL (1.2-6.7); Basophils % 1.1 %; Eosinophils % 3.5 %; HCT 35.6 % (40.0-50.0); Immature Grans % 0.5 %; Lymphocytes % 16.9 %; MCH 30.2 pg (27.0-33.0); MCHC 33.7 % (32.0-36.0); MCV 90 fL (80-95); MPV 9.2 fL (8.0-11.0); Monocytes % 11.7 %; Neutrophils % 66.3 %; Platelet Count 188 10^3/uL (130-400); RBC 3.97 10^6/uL (4.36-5.78); RDW 13.9 % (11.8-14.1); RDW-SD 45.1 fL; WBC 6.57 10^3/uL (4.4-10.8)
[2024-07-30 18:56] LABS: PTT Activated 27.1 sec (20.6-30.2); Prothrombin Time 10.3 sec (9.1-11.1)
[2024-07-30 19:06] LABS: ALT 25 U/L (16-63); AST 8 U/L (15-37); Albumin 3.7 g/dL (3.4-5.0); Alkaline Phosphatase 97 U/L (46-116); Anion Gap 10.1 mmol/L (3-11); BUN 24 mg/dL (7-18); CO2 24.9 mmol/L (21.0-32.0); CREATININE 2.2 mg/dL (0.70-1.30); Calcium 8.6 mg/dL (8.5-10.1); Chloride 100 mmol/L (98-107); Estimated GFR 30.66 (mL/min/1.73m2); Glucose 282 mg/dL (74-106); Lipase 111 U/L (<78); Magnesium 1.7 mg/dL (1.8-2.4); NT-proBNP 493 pg/mL (<300); Potassium 4.2 mmol/L (3.5-5.1); Sodium 135 mmol/L (136-145); Total Protein 6.7 g/dL (6.4-8.2); Troponin I 7 ng/L (<or=76)
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
[2024-07-30] MEDS: nitroGLYcerin 0.4 MG TAB (19:20)
[2024-07-30] MEDS: Magnesium Gluconate 500 MG TAB 1000 MG PO (19:40)
[2024-07-30 19:44] LABS: D-Dimer 531 ng/mlFEU (<500)
[2024-07-30] MEDS: nitroGLYcerin 0.4 MG TAB SL ×2 (19:44→20:56)
--- NOTE | 2024-07-30 20:00 | DI.CT_ITS ---
Exam(s) CT THORAX ABD/PEL CTA EXAM: CT THORAX ABD/PEL CTA CLINICAL HISTORY: eval for aortic dissection. TECHNIQUE: Imaging Protocol: Axial computed tomography images with coronal and sagittal reformatted images were created and reviewed CONTRAST MATERIAL: Intravenous: Omnipaque 350 Contrast volume:100 ml Oral: None COMPARISON: CT CT ABDOMEN PELVIS WO from 09/09/2023 FINDINGS: CHEST: AORTA: The aortic arch exhibits bovine configuration. No evidence significant stenosis at the origin of great vessels off of the aortic arch. There is mild atherosclerotic involvement of the aorta. T he diameter of the ascending thoracic aorta is within normal limits and there is no evidence of aorti c aneurysm nor dissection. There is also no evidence of abdominal aortic aneurysm nor dissection. T here is no significant stenosis at the origin of the celiac and superior mesenteric arteries. Only m ild plaque is noted at the origin of the renal arteries. The inferior mesenteric artery is patent. There is no significant atherosclerotic narrowing at the aortic bifurcation nor in the iliac arteries and no significant aneurysm of these vessels nor of the common femoral arteries. The internal iliac arteries are patent and nonaneurysmal. There are no dissection flaps in the iliac arteries. LUNGS: There are mild increased markings in the lung bases. No prominent infiltrates nor pleural eff usions. No ominous pulmonary nodules. No significant findings in the trachea and mainstem bronchi. MEDIASTINUM: There is no hilar nor mediastinal adenopathy. Visualized thyroid unremarkable. CARDIAC: Sternotomy wires. Non fused sternum. Heart size is normal. There is no pericardial effusi on. OSSEOUS: There is a chronic appearing mild compression wedge fracture of T12. No acute fractures kentrell dent. No significant osseous lesions. ABDOMEN: There is no ascites. LIVER: There are no focal hepatic lesions nor dilatation of intrahepatic ducts. Hepatic steatosis ev ident. GALLBLADDER/BILIARY: There is a small focus of mural calcification on the anterior wall of the gallbl adder measuring 4 mm. Other possibly would be for small calcified polyp or adherent mural calculus. CBD is not dilated. There are no dilated intrahepatic ducts. PANCREAS: No evidence of pancreatic mass nor dilatation of the pancreatic duct. SPLEEN: Spleen is not enlarged. There are no intrasplenic lesions. Splenic and portal veins are helms nt. ADRENALS: There are no significant adrenal masses. KIDNEYS: There is a benign cyst in the medial aspect of the right kidney which measures 2.5 x 2.1 cm. Does not require further workup. There is a 0.7 cm cyst in the lateral cortex of the left kidney a lso not requiring further workup. There are no solid renal masses. No calculi. No hydronephrosis n or hydroureter.. ABDOMINAL AORTA: The abdominal aorta is not enlarged. LYMPH NODES: There is no retroperitoneal nor para-aortic adenopathy. No obvious mesenteric masses. ABDOMINAL WALL: No evidence of significant anterior abdominal wall hernia. GI: There is no evidence of bowel obstruction, free air, nor abscess. PELVIS: LYMPH NODES: There is no intrapelvic nor inguinal adenopathy. GI: Appendix is surgically absent.No evidence of sigmoid diverticulitis. URINARY BLADDER: Mildly distended. REPRODUCTIVE: Prostate size upper normal. Seminal vesicles unremarkable. OSSEOUS: Nonexpansile dense sclerotic bone lesion is again noted in the left iliac bone which is unch anged and probably a benign bone island. Sacroiliac joints appear unremarkable. IMPRESSION: 1. No evidence of aortic aneurysm nor aortic dissection (as per request) and there is no evidence of pericardial effusion. There are sternotomy wires and the sternum is non fused. 2. Mild atelectasis in both lung bases. No pleural effusions. 3. Focal calcification in the anterior gallbladder wall as described above. 4. There is moderate distension of the urinary bladder. Prostate size appears upper normal. Other findings as above. RADIATION DOSE DELIVERED: 1,367.68mGy.cm Total DLP DATA REPOSITORY: All CT scans at this facility are submitted to the National Radiology Data Registry (NRDR) Dose Index Registry (DIR) with the [employer] (ACR). RADIATION OPTIMIZATION: All CT scans at this facility use at least one of these dose optimization te chniques: automated exposure control; mA and/or kV adjustment per patient size (includes targeted exa ms where dose is matched to clinical indication); or iterative reconstruction.
[2024-07-30 20:13] LABS: Troponin I 8 ng/L (<or=76)
[2024-07-30] MEDS: Omnipaque 350 MG/ML 100 ML BTL IJ (20:17)
[2024-07-30] MEDS: Normal Saline - Diluent 50 ML VIAL IJ (20:18)
[2024-07-30] MEDS: Normal Saline Flush 10 ML SYR IVP (20:19)
--- NOTE | 2024-07-30 20:20 | DI.VRAD_ITS ---
PROCEDURE INFORMATION: Exam: XR Chest Exam date and time: 07/30/2024 7:14 PM Age: 73 years old Clinical indication: Other: Unspecified; Chest pain TECHNIQUE: Imaging protocol: Radiologic exam of the chest. Views: 2 views. COMPARISON: CR XR PORTABLE CHEST AP 07/23/2024 4:39 PM FINDINGS: Limitations: Patient positioning is rotated. Lungs: No pulmonary consolidation is seen. Pleural spaces: No pleural effusion or pneumothorax is demonstrated. Heart/Mediastinum: The cardiac silhouette is displaced over the right hemithorax but appears grossly normal in size. There are median sternotomy wires. Bones/joints: The visualized bony structures appear grossly intact, as seen. IMPRESSION: No active disease is seen in the chest. Dictated and Authenticated by: Ruddy Quintana MD. Orderin Lora Esquivel MD
--- NOTE | 2024-07-30 21:18 | DI.VRAD_ITS ---
PROCEDURE INFORMATION: Exam: CTA Chest With Contrast CTA Abdomen and Pelvis With Contrast Exam date and time: 07/30/2024 8:20 PM Age: 73 years old Clinical indication: Screening exam; Other screening; Purpose: Eval for aortic dissection TECHNIQUE: Imaging protocol: Computed tomographic angiography of the chest with contrast. Exam focused on the arteries. Computed tomographic angiography of the abdomen and pelvis with contrast. Exam focused on the arteries. 3D rendering (Not supervised by radiologist): MIP and/or 3D reconstructed images were created by the technologist. COMPARISON: CT THORAX ABD/PEL CTA 04/20/2022 4:22 PM FINDINGS: VASCULATURE: Pulmonary arteries: Pulmonary artery opacification is of good technical quality. No embolism evident. Aorta: Thoracic aorta is normal in course and caliber. There is minor atherosclerotic calcium. No aneurysm. No thoracic aortic dissection. Abdominal aorta with mild atherosclerotic calcium. No aneurysm. Celiac trunk and mesenteric arteries: Superior mesenteric artery with mild atherosclerotic calcium at the origin. No significant stenosis. Celiac artery origin is widely patent. Renal arteries: Right renal artery origin is patent without stenosis. Left renal artery origin atherosclerotic calcium with 30% diameter mild stenosis. Right iliac arteries: Right iliac artery is widely patent. Left iliac arteries: Left iliac arteries widely patent. CHEST: Lungs: Lungs bilaterally with mild hyperinflation. This may represent mild emphysema. No vickie bronchiectasis. Minor posterior lung base atelectasis. Pleural spaces: No pleural effusion. No pneumothorax. Heart: Normal heart size. No pericardial effusion. [place] coronary artery atherosclerotic calcium. Previous open-heart surgery consistent with bypass. ABDOMEN AND PELVIS: Liver: The liver is normal in size, contour and attenuation. Gallbladder and biliary ducts: No acute biliary tract findings. Minor calcium in the anterior gallbladder wall. This may represent early porcelain gallbladder change. See series 9: Image 61. Pancreas: [id number] pancreatic atrophy. No focal pancreatic disease. Spleen: The spleen is normal in size, contour and attenuation. Adrenal glands: The adrenal glands are normal in size and contour bilaterally. Kidneys and ureters: No acute renal changes. Mild renal atrophy. Medial partially exophytic right renal lower pole 2.7 cm benign-appearing cyst.No further imaging follow up of the renal cyst is recommended based on MIPS criteria. Stomach and bowel: Gastric morphology is unremarkable. No edema. No gastric outlet obstruction.Small bowel loops are normal in course and caliber. There is no mucosal edema or bowel wall thickening. No obstructive features.The colon contains formed fecal material. There is no bowel wall thickening. No inflammatory features. No obstruction. Appendix: No evidence of appendicitis. Intraperitoneal space: No free fluid. No free air. Urinary bladder: Urinary bladder is unremarkable in appearance. No wall thickening. No intravesicular calculi. No intravesicular gas. Reproductive: Unremarkable as visualized. Lymph nodes: Unremarkable. No enlarged lymph nodes. Bones/joints: Degenerative thoracolumbar spine changes. Old anterior wedge compression fracture of T12. No acute skeletal findings. Soft tissues: Large amount of mesenteric fat consistent with intra-abdominal mesenteric lipomatosis. IMPRESSION: 1. No thoraco abdominal aortic aneurysm or dissection. Minor atherosclerotic calcium. 2. No pulmonary arterial embolism evident. 3. Minor posterior bilateral lung atelectasis. 4. Previous open-heart surgical bypass. Normal heart size. No pericardial effusion. 5. Minor calcium in the anterior gallbladder wall may represent early porcelain gallbladder change. 6. Pancreatic atrophy. 7. Bilateral mild renal atrophy. Benign right renal cyst. 8. Degenerative thoracolumbar spine changes. 9. Mesenteric lipomatosis. 10. Expanded lung volumes bilaterally suggesting emphysema. Dictated and Authenticated by: Jordy Jaquez MD. Orderin Lora Esquivel MD
[2024-07-30 21:57] LABS: Troponin I 10 ng/L (<or=76)
[2024-07-30] MEDS: QUEtiapine 100 MG TAB 200 MG PO (23:28)
[2024-07-31] VITALS (49 sets, daily range): BP systolic 106–160; BP diastolic 45–79; PULSE 67–85; RESP 9–27; TEMP 36.4–37.4; O2SAT 94–98
[2024-07-31] MEDS: nitroGLYcerin 2% 1 INCH/1 GM PKT TP (02:12)
[2024-07-31] MEDS: Normal Saline 1,000 ML 125 ML IV (02:12)
--- NOTE | 2024-07-31 02:47 | ED.PROG_ITS ---
Date of service: 07/31/24 Time of Service: 02:48 Medical Decision Making Patient was signed out to me pending potential for transfer. [facility] was contacted and refused transfer, [facility] was contacted and refused transfer secondary to capacity, [facility] was contacted and refused transfer because of capacity. I then reach back out to [facility] and discussed the case with Dr. Acuna again. Patient refuses to be transferred anywhere further south like [facility] or [place] in [place] secondary to his 's inability to get there. I discussed the case again with [facility], as currently there are no other transfer options. Patient will remain here at [facility]. [facility] did give medication adjustment recommendations to Dr. Carpio which is in her note. We will continue to trend the troponins here and manage the patient's pain as needed with nitroglycerin. He did have complete resolution of his pain was pain-free for a few hours here, but now the pain has come back slightly, we will reapply Nitropaste. Plan will be to continue to monitor and trend troponins for next 12 hours. If these remain stable [facility] recommends reaching back out to them for further discussion of potential stress testing versus them potentially having options at that point to accept the patient for potential cardiac catheterization. They do not recommend anticoagulating or antiplatelet administration at this time secondary to his history. Discussed the case with the hospitalist Dr. Nguyen, he is come and evaluate the patient. He agrees with the assessment and plan. I have extensively reviewed the treatment plan with the patient. I have addressed all patient concerns at this time. I have also discussed the plan with the admitting physician and they agree with the current assessment and plan and have agreed to assume responsibility for the patient. All parties demonstrate verbal understanding and agreement with our assessment and plan at this time. The documentation in this chart was dictated using [employer] dictation software. Please excuse any dictation errors. Quality:SDOH Health Related Social Needs: No Data to Display Discharge Plan Disposition Patient Disposition: [facility]mit to [facility] Condition: Good Discharge Details Chief Complaint: Chest Pain Clinical Impression: Chest pain Primary Care Provider: Alisa Ramirez ED Provider: Christopher Lua Home Meds and New Rx's Prescriptions: No Action finasteride 5 mg tablet 5 mg PO DAILY Qty: 90 4RF mirabegron [Myrbetriq] 25 mg tablet extended release 24 hr 25 mg PO DAILY Qty: 90 3RF multivitamin Tablet 1 tab PO DAILY insulin degludec [Tresiba FlexTouch U-200] 200 unit/mL (3 mL) insulin pen 50 unit subcut QHS diclofenac sodium [Voltaren] 1 % gel 1 applic topical DIRECTED Rx Instructions: apply to single elbow, wrist or hand; for hand includes palm/fingers/back of hand ketoconazole 2 % cream 1 applic topical DAILY 90 Days Qty: 60 3RF Rx Instructions: Apply to toenails once daily citalopram 20 mg tablet 20 mg PO DAILY allopurinol 300 mg tablet 300 mg PO DAILY nitroglycerin [Nitrostat] 0.4 MG tablet, sublingual 0.4 mg Sublingual as directed metformin 1,000 mg tablet 1,000 mg PO BID riboflavin (vitamin B2) [Vitamin B-2] 100 mg tablet 400 mg PO .QD acetylcysteine 600 mg capsule 600 mg PO BID pantoprazole 40 mg tablet,delayed release (DR/EC) 40 mg PO HS pregabalin 100 mg capsule 100 mg PO DAILY levothyroxine 50 MCG tablet 50 mcg PO DAILY@0730 quetiapine [Seroquel] 300 mg tablet 200 mg PO HS docusate sodium [Colace] 100 mg Capsule 100 mg PO DAILY PRN topiramate 50 mg tablet 50 mg PO HS amlodipine 2.5 mg tablet 2.5 mg PO DAILY tramadol 50 mg tablet 50 mg PO QHS PRN (Reason: pain) atorvastatin 40 mg Tablet 80 mg PO DAILY Qty: 90 0RF metoprolol succinate 50 mg Tablet Extended Release 24 Hr 100 mg PO DAILY Qty: 90 0RF nitroglycerin 0.4 mg Tablet, Sublingual 0.4 mg sublingual Q5 MIN PRN X3 PRNQty: 12 0RF diltiazem HCl 120 mg Capsule,Extended Release 24hr 120 mg PO DAILY Qty: 90 0RF isosorbide mononitrate 60 mg tablet extended release 24 hr 60 mg PO BID Patient Comments: TAKE 1 TABLET BY MOUTH ONCE DAILY, per taking BID (DME) Accu-Chek Guide test strips Strip MISCELLANEOUS Patient Comments: USE 1 STRIP TO CHECK GLUCOSE TWICE DAILY lisinopril 10 mg tablet 30 mg PO DAILY Patient Comments: TAKE 1 TABLET BY MOUTH ONCE DAILY . TOTAL DOSE 30MG ranolazine 500 mg tablet extended release 12 hr 500 mg PO BID acetaminophen [Acetaminophen Extra Strength] 500 mg tablet 1,000 mg PO TID PRN PRN (Reason: pain) Qty: 30 0RF
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
--- NOTE | 2024-07-31 03:50 | W.PC.ACHO ---
Registration Status: Primary Language: Preferred Language: ED Information & Data Chief Complaint Chest Pain 07/30/24 19:07 Triage Note Pt arrives to ED c/o LT 07/30/24 18:20 sided CP which started this afternoon. Pt unsure of exact time. Pt states pain radiates down his LT arm. Pt was discharged from here on Wednesday for the same issue. Extensive cardiac hx Pt took 1g of Tylenol, x2 81 mg aspirin and x2 Nitro at 1300 today. Pt states nitro did help and he slept x 1 hour but when he woke up, the pain had returned. Medical / Surgical History (Last Reviewed 07/31/24 @ 02:57 by Sergio Nguyen MD) Partial tear of left rotator cuff Atypical chest pain Sensory hearing loss, bilateral (04/09/14) Hypertrophy of nasal turbinates (08/05/15) Deviated nasal septum (08/05/15) Trochanteric bursitis, right hip Tendinitis involving hip abductors Acute serous otitis media of left ear Lumbar contusion Blunt head trauma BABS (acute kidney injury) Lipoma of lower extremity Alcohol abuse Tinea pedis History of subdural hematoma Hip joint pain Callus of foot Pain, joint, shoulder region, left Ataxia Left cervical radiculopathy Cecal volvulus Viral URI with cough UTI (urinary tract infection) Rhinorrhea Knee pain, right Rathke's pouch cyst Hx of traumatic brain injury Migraine headache Recurrent UTI Constipation, chronic Pain in joint of right foot Left rib fracture Contusion of right hip Head trauma Right sided weakness Urethral stricture (08/20/15) Postnasal drip (05/13/15) H/O alcohol abuse MRSA infection Depression Colon polyps Urethral stricture Chronic low back pain Diastasis recti Headaches due to 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 Hx of deep venous thrombosis (Last Reviewed 07/31/24 @ 02:57 by Sergio Nguyen MD) History of cardiac cath History of colonoscopy with polypectomy (~09/24/22) facial lesion removal electroconvulsive therapy Repair of umbilical hernia Repair of inguinal hernia (08/05/17) Colonoscopy - MAC Extraction of cataract Coronary Artery Bypass Gaft (CABG) Appendectomy (06/01/16) Most Recent Vital Signs Temperature 36.7 C 07/30/24 18:20 Temperature Source Oral 07/30/24 18:20 Pulse 83 07/31/24 01:45 Pulse 83 07/31/24 01:45 Respiratory Rate 20 07/31/24 01:45 Respiratory Effort Normal, Non-Labored 07/30/24 18:46 Respiratory Depth Normal 07/30/24 18:46 Respiratory Pattern Normal 07/30/24 18:46 Blood Pressure 111/60 07/31/24 01:45 Blood Pressure Mean 77 07/31/24 01:45 Blood Pressure Position Sitting 07/30/24 18:20 Pulse Oximetry 97 07/31/24 01:45 Oxygen Delivery Method Room Air 07/30/24 18:20 Oxygen Flow Rate 0 07/30/24 18:20 Pain Level 6 07/30/24 18:20 Allergies amoxicillin Allergy (Severe, Verified 07/30/24 18:28) breathing difficuty and vomiting Penicillins Allergy (Intermediate, Verified 07/30/24 18:28) Skin Rash sulfamethoxazole (From Bactrim) Allergy (Intermediate, Verified 07/30/24 18:28) Skin Rash trimethoprim (From Bactrim) Allergy (Intermediate, Verified 07/30/24 18:28) Skin Rash oxycodone HCl (From Percocet) Adverse Reaction (Severe, Verified 07/30/24 18:28) Contraindicated stares into space oxycodone terephthalate (From Percodan) Adverse Reaction (Severe, Verified 07/30/24 18:28) Contraindicated stares into space atorvastatin Adverse Reaction (Intermediate, Verified 07/30/24 18:28) Other (See Comment) Weakness/falls rosuvastatin (From Crestor) Adverse Reaction (Intermediate, Verified 07/30/24 18:28) Other (See Comment) Weakness/falls Precautions Isolation Standard precaution 07/30/24 18:26 Active Medications Generic Name Dose Route Start Last Admin Trade Name Freq PRN Reason Stop Dose Admin Sodium Chloride 1,000 mls @ 125 mls/hr 07/31/24 00:15 07/31/24 02:12 Saline 1000ml Bag IV 125 mls/hr INFUSION ALESSIO Administration Iohexol 100 ml 07/30/24 20:30 07/30/24 20:17 Omnipaque 350 Mg/Ml 100 Ml Btl IJ 08/29/24 23:59 85 ml DIRECTED ALESSIO Administration Sodium Chloride 50 ml 07/30/24 20:30 07/30/24 20:18 Normal Saline - Diluent 50 Ml Vial IJ 50 ml .FOR DI USE ALESSIO Administration Sodium Chloride 0 ml 07/30/24 20:19 07/30/24 20:19 Normal Saline Flush 10 Ml Syr IVP 10 ml PRN PRN Administration IV IV Catheter Type [Right Upper Peripheral IV arm] IV Catheter Type [Right Wrist] Saline Lock IV Catheter Gauge [Right Upper 18 arm] IV Catheter Gauge [Right Wrist 20 ] Diet Orders Category Date Time Status Diabetes Consistent CHO/Heart Healthy [DIET] Nutrition 07/31/24 Breakfast Active Diagnostics 07/30/24 07/30/24 07/30/24 Range/Units 21:19 19:49 18:25 WBC 6.57 (4.4-10.8) 10^3/uL RBC 3.97 L (4.36-5.78) 10^6/uL Hgb 12.0 L (13.5-17.5) g/dL Hct 35.6 L (40.0-50.0) % MCV 90 (80-95) fL MCH 30.2 (27.0-33.0) pg MCHC 33.7 (32.0-36.0) % RDW 13.9 (11.8-14.1) % Plt Count 188 (130-400) 10^3/uL MPV 9.2 (8.0-11.0) fL Immature Gran % 0.5 % Neutrophils % 66.3 % Lymphocytes % 16.9 % Monocytes % 11.7 % Eosinophils % 3.5 % Basophils % 1.1 % Nucleated RBC % 0.0 (0.0-0.3) % Absolute Neutrophils 4.36 (1.2-6.7) 10^3/uL Absolute Lymphocytes 1.11 L (1.2-3.4) 10^3/uL Absolute Monocytes 0.77 (0.1-0.8) 10^3/uL Absolute Eosinophils 0.23 (0.0-0.7) 10^3/uL Absolute Basophils 0.07 (0.0-0.2) 10^3/uL PT 10.3 (9.1-11.1) sec INR 1.0 (0.9-1.1) APTT 27.1 (20.6-30.2) sec D-Dimer 531 H (<500) ng/mlFEU Sodium 135 L (136-145) mmol/L Potassium 4.2 (3.5-5.1) mmol/L Chloride 100 (98-107) mmol/L Carbon Dioxide 24.9 (21.0-32.0) mmol/L Anion Gap 10.1 (3-11) mmol/L BUN 24 H (7-18) mg/dL Creatinine 2.2 H (0.70-1.30) mg/dL Est GFR (CKD-EPI 2020) 30.66 (mL/min/1.73m2) Glucose 282 H (74-106) mg/dL Calcium 8.6 (8.5-10.1) mg/dL Magnesium 1.7 L (1.8-2.4) mg/dL Total Bilirubin 0.30 (0.2-1.0) mg/dL AST 8 L (15-37) U/L ALT 25 (16-63) U/L Alkaline Phosphatase 97 (46-116) U/L Troponin I 10 8 7 (<or=76) ng/L NT-Pro-B Natriuret Pep 493 H (<300) pg/mL Total Protein 6.7 (6.4-8.2) g/dL Albumin 3.7 (3.4-5.0) g/dL Lipase 111 H (<78) U/L Intake and Output - 24 Hour Total 07/30/24 18:17 thru 07/30/24 18:20 Weight 92.533 kg Falls Risk Assessment History of Falls No History 07/30/24 18:27 Contributing Factors Impairments 07/30/24 18:27 Ambulatory Aids Uses ambulatory device + 07/30/24 18:27 Tubes/Lines W/no contributing factors 07/30/24 18:27 Gait Evaluation No gait disturbance 07/30/24 18:27 Cognition No cognitive impairment 07/30/24 18:27 Fall Total Score 43 07/30/24 18:27 Level of Risk Moderate Risk 07/30/24 18:27 Problems (Last Reviewed 07/31/24 @ 02:57 by Sergio Nguyen MD) Chest pain (Acute) v v v v v v v v v Sending and/or Receiving Nurses: Please use comment section below to note any information pertinent to the patient hand-off not included above. Information / Comments: Report received from: Td Bailey RN
[2024-07-31] MEDS: MORPHine 4 MG/ML SYR IVP ×3 (06:07→18:59)
[2024-07-31] MEDS: Normal Saline Flush 10 ML SYR IVP ×4 (06:08→20:41)
[2024-07-31] MEDS: Metoprolol CR 50 MG TABCR 100 MG PO (08:26)
[2024-07-31] MEDS: Finasteride 5 MG TAB PO (08:27)
[2024-07-31] MEDS: Pregabalin 100 MG CAP PO (08:27)
[2024-07-31] MEDS: Lisinopril 10 MG TAB 30 MG PO (08:27)
[2024-07-31] MEDS: Isosorbide Mononitrate 60 MG TABCR PO ×2 (08:28→20:40)
[2024-07-31] MEDS: Levothyroxine 50 MCG TAB PO (08:28)
[2024-07-31] MEDS: Ranolazine 500 MG TABCR PO ×2 (08:28→20:40)
[2024-07-31] MEDS: Allopurinol 300 MG TAB PO (08:28)
[2024-07-31] MEDS: Mirabegron 25 MG TABCR PO (08:28)
[2024-07-31] MEDS: Acetylcysteine 600 MG CAP PO ×2 (08:28→20:40)
[2024-07-31] MEDS: Citalopram 20 MG TAB PO (08:29)
[2024-07-31] MEDS: dilTIAZem CD 120 MG CAPCR PO (08:29)
[2024-07-31] MEDS: amLODIPine 2.5 MG TAB PO (08:29)
[2024-07-31] MEDS: Multivitamin TAB 1 TAB PO (08:44)
--- NOTE | 2024-07-31 09:32 | W.INDIABCONS ---
Date of service: 07/31/24 Time of Service: 14:00 Diabetes Inpatient Consult Reason for Visit: received consult request for diabetes education/mgt DESCRIPTION/ASSESSMENT: Pt known to me from recent admission earlier this month. Lives at home with and son. PMH significant for many chronic conditions and acute ulcer to right foot - had exostectomy last feb. A1C hx mostly in the 6's over the last 3 year, indicating excellent glucose control. doesn't usually experience frequent low's. GFR on admisstion 30.66 electrolytes being corrected. Pt ordered for MVI, 35u basal insulin and mealtime corrections with sliding scale. metformin on hold due to kidney fxn. Pt weight stable - has good po intake last admission. Has concerns with constipation with no BM reported in many days. INTERVENTION: education declined at this time - knows I am a resource for any questions re: diet with managing glucose. -continue with current appropriate diet order for consistent CHO. -encouraged less refined starch intake as he ordered 2 orders of mac and cheese and other refefined sources - had >100g of total carb at one meal. -encouraged veggies , whole fruit and trade intact grains and less refined choices. PLAN: monitor weight, glucose, intake, labs. Time Spent in Nutritional Counseling and Treatment: 10 min
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
[2024-07-31] MEDS: MAGNESIUM SULFATE 1 GM/100 ML BAG IV_INF (10:37)
[2024-07-31] MEDS: Insulin Aspart 300 UNITS/3 ML PEN SC ×2 (12:29→17:06)
[2024-07-31] MEDS: Polyethylene Glycol 3350 17 GM PACKET PO (12:29)
[2024-07-31] MEDS: Docusate Sodium 100 MG CAP PO (12:30)
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
--- NOTE | 2024-07-31 15:16 | PHA.REVIEW2 ---
Pharmacy Admission Review Admission Clinical Review Admission Pharmacy Review: Chest pain (Acute) amoxicillin Allergy (Severe, Verified 07/30/24 18:28) breathing difficuty and vomiting Penicillins Allergy (Intermediate, Verified 07/30/24 18:28) Skin Rash sulfamethoxazole (From Bactrim) Allergy (Intermediate, Verified 07/30/24 18:28) Skin Rash trimethoprim (From Bactrim) Allergy (Intermediate, Verified 07/30/24 18:28) Skin Rash oxycodone HCl (From Percocet) Adverse Reaction (Severe, Verified 07/30/24 18:28) Contraindicated oxycodone terephthalate (From Percodan) Adverse Reaction (Severe, Verified 07/30/24 18:28) Contraindicated atorvastatin Adverse Reaction (Intermediate, Verified 07/30/24 18:28) Other (See Comment) rosuvastatin (From Crestor) Adverse Reaction (Intermediate, Verified 07/30/24 18:28) Other (See Comment) Resuscitation Status Full Code Height 5 ft 10 in Weight 95.6 kg Comments Comments/Follow Ups: Reach back out to provider if no order put in for DVT prophylaxis Pharmacy Admission Review Renal Dosing Renal Dosing: BUN 24 mg/dL (7-18) H 07/30/24 18:25 Creatinine 2.2 mg/dL (0.70-1.30) H 07/30/24 18:25 Medications needing adjustments: Reviewed (CrCl 34.1 mL/min) List of meds needing interventions: Current medications are okay Anticoagulation Anticoagulation: Hgb 12.0 g/dL (13.5-17.5) L 07/30/24 18:25 Hct 35.6 % (40.0-50.0) L 07/30/24 18:25 Plt Count 188 10^3/uL (130-400) 07/30/24 18:25 INR 1.0 (0.9-1.1) 07/30/24 18:25 Creatinine 2.2 mg/dL (0.70-1.30) H 07/30/24 18:25 DVT Prophylaxis: Reviewed (none orderd at this time - reached out to provider, waiting to hear back) Opiate Usage Evaluate Pain Scale/Pains Meds: Reviewed (morphine IVP q3h PRN - 5mg/24hrs) Scheduled Bowel Reg ordered if on Opiates?: No (PRN docusate/Miralax) Relevant Labs Relevant Labs: Sodium 135 mmol/L (136-145) L 07/30/24 18:25 Potassium 4.2 mmol/L (3.5-5.1) 07/30/24 18:25 Chloride 100 mmol/L (98-107) 07/30/24 18:25 Magnesium 1.7 mg/dL (1.8-2.4) L 07/30/24 18:25 Electrolytes, C-Reactive P, ESR: Reviewed (No new labs for today - received magnesium infusion this morning at 1037) DM Control DM Control: Glucose 282 mg/dL (74-106) H 07/30/24 18:25 Finger Stick Blood Glucose 209 1229 Finger Stick Blood Glucose 209 1218 Finger Stick Blood Glucose 209 1218 Finger Stick Blood Glucose 97 0843 Finger Stick Blood Glucose 97 0815 Finger Stick Blood Glucose 97 0815 DM Control: Reviewed Insulin Dosing, Diabetic Medication: Has order for SS insulin and glargine 35 units HS Cardiac Review Cardiac Review: Troponin I 10 ng/L (<or=76) 07/30/24 21:19 NT-Pro-B Natriuret Pep 493 pg/mL (<300) H 07/30/24 18:25 BP, HR, EF%: Reviewed (BP and HR WNL) List meds needing interventions: Has order for amlodipine 2.5mg daily, diltiazem CD 120mg daily, isosorbide mononitrate CR 60mg BID, lisinopril 30mg daily and metoprolol XL 100mg daily QTc Review QTc: Reviewed (490 from 07/30/24) IV to PO Switch IV Medications: Reviewed (morphine) Home Meds Home Med List reviewed: Reviewed Relevent Home Meds Not ordered & why?: metformin (on hold), Tresiba (has order for glargine - formulary substitution), ketoconazole cream and vitamin B2 Current Meds Current Medication Order Review: Intervened Comments: added IV admission order set Added 2nd PRN to docusate and morphine orders per pharmacy protocol Comments Comments/Follow Ups: Reach back out to provider if no order put in for DVT prophylaxis
[2024-07-31] MEDS: Insulin Glargine 300 UNITS/3 ML PEN 35 UNITS SC (20:38)
[2024-07-31] MEDS: Pantoprazole 40 MG TABCR PO (20:40)
[2024-07-31] MEDS: QUEtiapine 100 MG TAB 200 MG PO (20:40)
[2024-07-31] MEDS: Topiramate 50 MG TAB PO (20:41)
[2024-08-01] VITALS (13 sets, daily range): BP systolic 100–163; BP diastolic 60–87; PULSE 74–80; RESP 13–21; TEMP 36.5–37.5; O2SAT 94–100
--- NOTE | 2024-08-01 06:55 | W.PC.ACHO ---
Registration Status: Primary Language: Preferred Language: ED Information & Data Chief Complaint Chest Pain 07/30/24 19:07 Triage Note Pt arrives to ED c/o LT 07/30/24 18:20 sided CP which started this afternoon. Pt unsure of exact time. Pt states pain radiates down his LT arm. Pt was discharged from here on Wednesday for the same issue. Extensive cardiac hx Pt took 1g of Tylenol, x2 81 mg aspirin and x2 Nitro at 1300 today. Pt states nitro did help and he slept x 1 hour but when he woke up, the pain had returned. Medical / Surgical History (Last Reviewed 07/31/24 @ 02:57 by Sergio Nguyen MD) Partial tear of left rotator cuff Atypical chest pain Sensory hearing loss, bilateral (04/09/14) Hypertrophy of nasal turbinates (08/05/15) Deviated nasal septum (08/05/15) Trochanteric bursitis, right hip Tendinitis involving hip abductors Acute serous otitis media of left ear Lumbar contusion Blunt head trauma BABS (acute kidney injury) Lipoma of lower extremity Alcohol abuse Tinea pedis History of subdural hematoma Hip joint pain Callus of foot Pain, joint, shoulder region, left Ataxia Left cervical radiculopathy Cecal volvulus Viral URI with cough UTI (urinary tract infection) Rhinorrhea Knee pain, right Rathke's pouch cyst Hx of traumatic brain injury Migraine headache Recurrent UTI Constipation, chronic Pain in joint of right foot Left rib fracture Contusion of right hip Head trauma Right sided weakness Urethral stricture (08/20/15) Postnasal drip (05/13/15) H/O alcohol abuse MRSA infection Depression Colon polyps Urethral stricture Chronic low back pain Diastasis recti Headaches due to 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 Hx of deep venous thrombosis (Last Reviewed 07/31/24 @ 02:57 by Sergio Nguyen MD) History of cardiac cath History of colonoscopy with polypectomy (~09/24/22) facial lesion removal electroconvulsive therapy Repair of umbilical hernia Repair of inguinal hernia (08/05/17) Colonoscopy - MAC Extraction of cataract Coronary Artery Bypass Gaft (CABG) Appendectomy (06/01/16) Most Recent Vital Signs Temperature 36.5 C 08/01/24 04:00 Temperature Source Temporal Artery Scan 08/01/24 04:00 Pulse 74 08/01/24 05:00 Pulse 74 08/01/24 05:00 Respiratory Rate 13 08/01/24 05:00 Respiratory Effort Normal 07/31/24 04:03 Respiratory Depth Normal 07/31/24 04:03 Respiratory Pattern Normal 07/31/24 04:03 Blood Pressure 104/60 08/01/24 04:19 Blood Pressure Mean 73 08/01/24 04:19 Blood Pressure Position Sitting 07/30/24 18:20 Pulse Oximetry 95 08/01/24 05:00 Oxygen Delivery Method Room Air 07/31/24 20:40 Oxygen Flow Rate 0 07/31/24 20:40 Pain Level 5 07/31/24 18:20 Comment BP for 3rd nitro dose 08/01/24 04:19 Allergies amoxicillin Allergy (Severe, Verified 07/30/24 18:28) breathing difficuty and vomiting Penicillins Allergy (Intermediate, Verified 07/30/24 18:28) Skin Rash sulfamethoxazole (From Bactrim) Allergy (Intermediate, Verified 07/30/24 18:28) Skin Rash trimethoprim (From Bactrim) Allergy (Intermediate, Verified 07/30/24 18:28) Skin Rash oxycodone HCl (From Percocet) Adverse Reaction (Severe, Verified 07/30/24 18:28) Contraindicated stares into space oxycodone terephthalate (From Percodan) Adverse Reaction (Severe, Verified 07/30/24 18:28) Contraindicated stares into space atorvastatin Adverse Reaction (Intermediate, Verified 07/30/24 18:28) Other (See Comment) Weakness/falls rosuvastatin (From Crestor) Adverse Reaction (Intermediate, Verified 07/30/24 18:28) Other (See Comment) Weakness/falls Precautions Isolation Standard precaution 07/30/24 18:26 Active Medications Generic Name Dose Route Start Last Admin Trade Name Freq PRN Reason Stop Dose Admin Acetylcysteine 600 mg 07/31/24 08:30 07/31/24 20:40 Acetylcysteine 600 Mg Cap PO 600 mg BID ALESSIO Administration Allopurinol 300 mg 07/31/24 08:30 07/31/24 08:28 Allopurinol 300 Mg Tab PO 300 mg DAILY ALESSIO Administration Amlodipine Besylate 2.5 mg 07/31/24 08:30 07/31/24 08:29 Amlodipine 2.5 Mg Tab PO 2.5 mg DAILY ALESSIO Administration Citalopram Hydrobromide 20 mg 07/31/24 08:30 07/31/24 08:29 Citalopram 20 Mg Tab PO 20 mg DAILY ALESSIO Administration Diltiazem HCl 120 mg 07/31/24 08:30 07/31/24 08:29 Diltiazem Cd 120 Mg Capcr PO 120 mg DAILY ALESSIO Administration Finasteride 5 mg 07/31/24 08:30 07/31/24 08:27 Finasteride 5 Mg Tab PO 5 mg DAILY ALESSIO Administration Insulin Aspart 0 units 07/31/24 08:00 07/31/24 17:06 Insulin Aspart 300 Units/3 Ml Pen SC 2 units 0800,1200,1700 [facility] Administration Protocol Insulin Glargine 35 units 07/31/24 20:00 07/31/24 20:38 Insulin Glargine 300 Units/3 Ml Pen SC 35 units HS [facility] Administration Isosorbide Mononitrate 60 mg 07/31/24 08:30 07/31/24 20:40 Isosorbide Mononitrate 60 Mg Tabcr PO 60 mg BID [facility] Administration Levothyroxine Sodium 50 mcg 07/31/24 07:30 07/31/24 08:28 Levothyroxine 50 Mcg Tab PO 50 mcg DAILY@0730 [facility] Administration Lisinopril 30 mg 07/31/24 08:30 07/31/24 08:27 Lisinopril 10 Mg Tab PO 30 mg DAILY [facility] Administration Metoprolol Succinate 100 mg 07/31/24 08:30 07/31/24 08:26 Metoprolol Cr 50 Mg Tabcr PO 100 mg DAILY [facility] Administration Mirabegron 25 mg 07/31/24 08:30 07/31/24 08:28 Mirabegron 25 Mg Tabcr PO 25 mg DAILY [facility] Administration Morphine Sulfate 2 - 4 mg 07/31/24 13:15 07/31/24 18:59 Morphine 4 Mg/Ml Syr IVP 3 mg Q3H PRN PRN Administration Chest Pain Multivitamins 1 tab 07/31/24 08:30 07/31/24 08:44 Multivitamin Tab PO 1 tab DAILY [facility] Administration Nitroglycerin 0.3 mg 07/30/24 19:06 08/01/24 04:14 Nitroglycerin 0.3 Mg Tab SL 0.3 mg Q5 MIN PRN X3 PRN Administration Pantoprazole Sodium 40 mg 07/31/24 20:00 07/31/24 20:40 Pantoprazole 40 Mg Tabcr PO 40 mg HS ALESSIO Administration Polyethylene Glycol 17 gm 07/31/24 10:33 07/31/24 12:29 Polyethylene Glycol 3350 17 Gm Packet PO 17 gm DAILY PRN PRN Administration Pregabalin 100 mg 07/31/24 08:30 07/31/24 08:27 Pregabalin 100 Mg Cap PO 100 mg DAILY ALESSIO Administration Quetiapine Fumarate 200 mg 07/31/24 20:00 07/31/24 20:40 Quetiapine 100 Mg Tab PO 200 mg HS ALESSIO Administration Ranolazine 500 mg 07/31/24 08:30 07/31/24 20:40 Ranolazine 500 Mg Tabcr PO 500 mg BID ALESSIO Administration Sodium Chloride 0 ml 07/30/24 20:19 07/31/24 20:41 Normal Saline Flush 10 Ml Syr IVP 20 ml PRN PRN Administration Topiramate 50 mg 07/31/24 20:00 07/31/24 20:41 Topiramate 50 Mg Tab PO 50 mg HS ALESSIO Administration IV IV Catheter Type [Right Upper Saline Lock arm] IV Catheter Type [Right Wrist] Saline Lock IV Catheter Gauge [Right Upper 18 arm] IV Catheter Gauge [Right Wrist 20 ] Diagnostics 08/01/24 Range/Units 05:22 Sodium Pending Potassium Pending Chloride Pending Carbon Dioxide Pending Anion Gap Pending BUN Pending Creatinine Pending Est GFR (CKD-EPI 2020) Pending Glucose Pending Calcium Pending Magnesium Pending Troponin I Pending [id number] Documentation Fingerstick Glucose Start: 07/31/24 03:11 Freq: .AC Status: Active Protocol: Activity Type Activity Date Activity User E-sign Co-sign Detail Recorded Client Recorded Date Recorded By Document 07/31/24 17:03 BKG DAEMON(3) [id number] 07/31/24 17:04 BKG DAEMON(4) Intake and Output - 24 Hour Total 07/30/24 18:17 thru 08/01/24 06:13 Intake Total 3050 Output Total 4705 Balance -1655 Weight 95.6 kg Intake: IV 1100 Oral 1950 Output: Urine 4705 Other: Urine Color Yellow Urine Appearance Clear Urine Odor Normal Falls Risk Assessment History of Falls Previous History 07/31/24 04:03 Contributing Factors Impairments 07/31/24 04:03 Ambulatory Aids Uses ambulatory device 07/31/24 04:03 Tubes/Lines With any additional score 07/31/24 04:03 Gait Evaluation W/any additional score 07/31/24 04:03 Cognition No cognitive impairment 07/31/24 04:03 Fall Total Score 73 07/31/24 04:03 Level of Risk High Risk 07/31/24 04:03 Problems (Last Reviewed 07/31/24 @ 02:57 by Sergio Nguyen MD) Chest pain (Acute) v v v v v v v v v Sending and/or Receiving Nurses: Please use comment section below to note any information pertinent to the patient hand-off not included above. Information / Comments: pt is here for chest pain, his angina is a stable unstable, currently looking for a laboratory scientist placement for him crackles in right lung, rest are CTA HRR- chest pain around 0400 resolved with nitro tabs. goes away for a few hours at a time. abdomen is distended but soft and non-tender. Per pt a normal bowel movement occurs every 3-4 days before he starts taking colace, could benefit from more education in bowel meds. GI hood, has hesitency, frequency, and some dribbling. Skin is good, repositions ad dimple so no current concern for bed sores. pt has a hx of falls, he stands and sometimes gets dizzy. uses a FWW/cane at home baseline. afebrile, A&O IV: 18 RAC, 20 R wrist. AC fingersticks Report received from: [facility] @ around [id number]
[2024-08-01 07:04] LABS: Troponin I 8 ng/L (<or=76)
[2024-08-01 07:06] LABS: Anion Gap 10.5 mmol/L (3-11); BUN 25 mg/dL (7-18); CO2 22.5 mmol/L (21.0-32.0); CREATININE 1.8 mg/dL (0.70-1.30); Calcium 8.5 mg/dL (8.5-10.1); Chloride 105 mmol/L (98-107); Estimated GFR 39.01 (mL/min/1.73m2); Glucose 235 mg/dL (74-106); Magnesium 2.2 mg/dL (1.8-2.4); Sodium 138 mmol/L (136-145)
[2024-08-01] MEDS: Citalopram 20 MG TAB PO (08:16)
[2024-08-01] MEDS: Lisinopril 10 MG TAB 30 MG PO (08:16)
[2024-08-01] MEDS: Ranolazine 500 MG TABCR PO ×2 (08:16→21:09)
[2024-08-01] MEDS: Pregabalin 100 MG CAP PO (08:16)
[2024-08-01] MEDS: Isosorbide Mononitrate 60 MG TABCR PO ×2 (08:16→21:10)
[2024-08-01] MEDS: Mirabegron 25 MG TABCR PO (08:16)
[2024-08-01] MEDS: Levothyroxine 50 MCG TAB PO (08:17)
[2024-08-01] MEDS: dilTIAZem CD 120 MG CAPCR PO (08:17)
[2024-08-01] MEDS: Acetylcysteine 600 MG CAP PO ×2 (08:17→21:09)
[2024-08-01] MEDS: Multivitamin TAB 1 TAB PO (08:17)
[2024-08-01] MEDS: Finasteride 5 MG TAB PO (08:17)
[2024-08-01] MEDS: Allopurinol 300 MG TAB PO (08:17)
[2024-08-01] MEDS: Metoprolol CR 50 MG TABCR 100 MG PO (08:17)
[2024-08-01] MEDS: Insulin Aspart 300 UNITS/3 ML PEN SC ×3 (08:18→17:24)
[2024-08-01] MEDS: amLODIPine 2.5 MG TAB PO (08:18)
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
[2024-08-01] MEDS: Bisacodyl 10 MG SUPP PR (11:28)
--- NOTE | 2024-08-01 11:58 | PDOC.CMPRO ---
Date of service: 08/01/24 Time of Service: 11:58 Care Management Progress Note Progress Note Text Progress Note Text: Andrew was lying in bed visiting with his Brittany when CM met with him. He had been given a suppository earlier and needed to use the facilities so CM met with Brittany. She explained that the plan was for Andrew to remain hospitalized until when he will have a stress test. She stated that each time Andrew has needed a stent or bypass his presentation has been similar to this one. He is very anxious and she feels he would be right back if he had another episode of chest pain at home while waiting for the stress test. Discharge Potential Discharge Needs: PCP F/U Appt and Other (Cardiology) Anticipated Barriers to Discharge: None Identified Patient/Family Education Needs: Review discharge instructions, discuss Ask Me Three Transportation: Private vehicle Plan: Anticipate Fredo will return home once medically cleared, likely or Wednesday.. His will transport him home via private vehicle. He will follow up with his PCP and discharge plan of care. CM will continue to follow. Social Determinants of Health Screening Will the Patient Participate in the Screening?: Declined to provide Social Determinants of Health Comments([facility] Details): Plans and situation have not changed from prior admission assessment from prior week, patient states. Declines questionnaire at this time.
--- NOTE | 2024-08-01 14:38 | PGE_ITS ---
Date of Service Date of service: 08/01/24 Time of Service: 14:39 Assessment and Plan Assessment and plan (1) Atherosclerosis of [place] coronary artery of [place] heart with unstable angina pectoris: Start date: 07/23/24 Status: Resolved Assessment and plan: -Second admission in the past week with chest pain. presented with resting a ngina pectoralis pressure was positive nitroglycerin and then completely responsive to nitroglycerin sublingually in the ED. -Has history of coronary artery disease, multiple stents, CABG in 2016, as well as recent normal cardiac catheterization -troponins negative and EKG again showed no acute ischemic changes. -has a history of spontaneous subdural hematomas and [facility] cardiology wanted to minimize cardiac catheterization and did not advise aspirin, Plavix or anticoagulation for this patient. -at 07/23- admission changed isosorbide to dinitrate, increase metoprolol from 50-100mg, added diltiazem. -Still getting chest pain, so not comfortable taking him home despite Dr. Cristina's endorsement, high likelihood of bouncing back. (2) Type 2 diabetes mellitus with peripheral neuropathy: Status: Chronic Assessment and plan: -sugars high. Resume metformin at lower dose given GFR. -Sliding scale insulin, carb consistent diet while hospitalized (3) Chronic kidney disease (CKD) stage G3b/A1, moderately decreased glomerular filtration rate (GFR) between 30-44 mL/min/1.73 square meter and albuminuria creatinine ratio less than 30 mg/g: Status: Chronic Assessment and plan: Stable, at baseline. (4) Dementia: Status: Chronic Assessment and plan: Stable, continue outpatient medical therapy. (5) Hypertension: Status: Chronic Assessment and plan: At last admission decreased lisinopril while increasing dosing of isosorbide and nitrate. BPs have been low until this afternoon, follow. (6) Constipation: Status: Inactive Assessment and plan: a/w some anticholinergic meds. Added bisacocyl VT. Also schedule PEG and senna. (7) DVT prophylaxis: Status: Resolved Assessment and plan: SCDs given h/o spontanous ICH Subjective Subjective Patient reports: tolerating a regular diet and voiding w/o difficulty; denies bowel movement, nausea, vomiting, shortness of breath or fever Interval history since last seen: He feels okay today. He did have chest pain again last night, same as usual and similar to the pain he had before his last catheterization. Also some burpy pain yesterday. No pain now. is worried about him going home. Exam Narrative Exam Narrative: Gen: Alert and oriented. No evident JVP; lungs clear; heart RRR w/o MRG; abdomen soft and NT, mild distention; extremities w/o edema Objective Last Vital Signs Temp 37.0 C 08/01/24 11:16 Pulse 80 08/01/24 11:16 Resp 18 08/01/24 11:16 BP 147/75 H 08/01/24 11:16 Pulse Ox 98 08/01/24 11:16 Laboratory Results - last 24 hr 08/01/24 05:22 Sodium 138 Potassium 4.0 Chloride 105 Carbon Dioxide 22.5 Anion Gap 10.5 BUN 25 H Creatinine 1.8 H Est GFR (CKD-EPI 2020) 39.01 Glucose 235 H Calcium 8.5 Magnesium 2.2 Troponin I 8 Time Spent with Patient Time Spent with Patient: 35-49 minutes Time was spent: preparing to see the patient(eg.review tests), obtaining and/or reviewing separately otained hiistory, ordering medications,tests, procedures, referring, communicating with other health home care physical therapist, indepentently interpreting results, counseling the patient and care coordination
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
[2024-08-01] MEDS: Topiramate 50 MG TAB PO (21:09)
[2024-08-01] MEDS: Senna TAB 1 TAB PO (21:10)
[2024-08-01] MEDS: Pantoprazole 40 MG TABCR PO (21:10)
[2024-08-01] MEDS: traMADol 50 MG TAB PO (21:10)
[2024-08-01] MEDS: Insulin Glargine 300 UNITS/3 ML PEN 35 UNITS SC (21:18)
[2024-08-01] MEDS: QUEtiapine 100 MG TAB 200 MG PO (22:57)
[2024-08-01] MEDS: Docusate Sodium 100 MG CAP PO (22:57)
[2024-08-02 02:57] VITALS: BP 125/72; PULSE 90; RESP 20; TEMP 36.7; O2SAT 96
[2024-08-02 07:38] VITALS: BP 124/69; PULSE 86; RESP 18; TEMP 36.6; O2SAT 96
[2024-08-02] MEDS: Polyethylene Glycol 3350 17 GM PACKET PO (07:54)
[2024-08-02] MEDS: Mirabegron 25 MG TABCR PO (07:54)
[2024-08-02] MEDS: Senna TAB 1 TAB PO ×2 (07:54→20:47)
[2024-08-02] MEDS: Lisinopril 10 MG TAB 30 MG PO (07:54)
[2024-08-02] MEDS: Isosorbide Mononitrate 60 MG TABCR PO ×2 (07:55→20:47)
[2024-08-02] MEDS: Finasteride 5 MG TAB PO (07:55)
[2024-08-02] MEDS: Allopurinol 300 MG TAB PO (07:55)
[2024-08-02] MEDS: Acetylcysteine 600 MG CAP PO ×2 (07:55→20:47)
[2024-08-02] MEDS: dilTIAZem CD 120 MG CAPCR PO (07:55)
[2024-08-02] MEDS: Metoprolol CR 50 MG TABCR 100 MG PO (07:55)
[2024-08-02] MEDS: Ranolazine 500 MG TABCR PO ×2 (07:56→20:47)
[2024-08-02] MEDS: Levothyroxine 50 MCG TAB PO (07:56)
[2024-08-02] MEDS: Pregabalin 100 MG CAP PO (07:56)
[2024-08-02] MEDS: Citalopram 20 MG TAB PO (07:56)
[2024-08-02] MEDS: Multivitamin TAB 1 TAB PO (07:56)
[2024-08-02] MEDS: amLODIPine 2.5 MG TAB PO (07:56)
[2024-08-02] MEDS: Insulin Aspart 300 UNITS/3 ML PEN SC ×3 (07:56→17:25)
[2024-08-02 08:00] VITALS: BP 135/71; PULSE 74; RESP 17; TEMP 36.4; O2SAT 98
--- NOTE | 2024-08-02 08:54 | PDOC.CMPRO ---
Date of service: 08/02/24 Time of Service: 08:54 Care Management Progress Note Progress Note Text Progress Note Text: Andrew was sitting up in a chair visiting with his Brittany when CM met with him. He shared that he had another episode of chest pain while ambulating this morning. Both he and his expressed concern about his current condition. He was kept in the hospital for 2 days awaiting a stress test which will be done tomorrow. They shared that even if the stress test is negative, they will not feel comfortable going home. Brittany shared that each time he has needed a stent or a bypass, all of the initial testing was negative. She admitted to being very frustrated with the whole situation. CM will follow. Discharge Potential Discharge Needs: PCP F/U Appt Anticipated Barriers to Discharge: None Identified Patient/Family Education Needs: Review discharge instructions, discuss Ask Me Three Transportation: Private vehicle Plan: Anticipate Fredo will return home once medically cleared, likely or Wednesday. His will transport him home via private vehicle and he will follow up with his PCP and discharge plan of care. CM will continue to assess for discharged needs. Social Determinants of Health Screening Will the Patient Participate in the Screening?: Declined to provide Social Determinants of Health Comments([facility] Details): Plans and situation have not changed from prior admission assessment from prior week, patient states. Declines questionnaire at this time.
--- NOTE | 2024-08-02 10:56 | PTTR_ITS ---
PT Notes Visit Reasons: Unstable Angina Inpatient Physical Therapy Treatment Note [facility] Date: 08/02/2024 PRECAUTIONS:Telemetry SUBJECTIVE:Pt reports pain in his neck left side and his low back. He thinks its from the chair he is sitting in and falling asleep with his head forward. ( Pt issued a different chair that reclines and provides posterior weight shift to allow for head support with a pillow even if he wants to keep his feet down.) Pt reported new chair as much better and more comfortable. OBJECTIVE: Pt presents seated in stationary chair rubbing his left side of neck ? PAIN: pt reports left sided neck and LBP. 08/28 VITALS: monitored via telemetry throughout ? Therapeutic Activities (25926): Direct one-on-one instruction in dynamic act ivities to improve functional performance. ? BED MOBILITY/TRANSFERS? Supine-sit: independent? Sit-supine: independent? Sit-stand: independent ? Stand-sit: independent? Bed-Chair: SBA ? Chair-bed: SBA functional mobility with in room to simulate mobility within home short distances <25 feet x 4 without AD SBA noted 1 episode of hand support on a chair as passed by. No LOB noted Provided skilled cues and instruction on performance and technique throughout. Gait Training (64736): Direct one-on-one instruction and skilled instruction in: [X] turning and movement with proper form [X] Patient education regarding pacing and breathing techniques to maximize activity tolerance? GAIT? Assistive Device: FWW? Weight bearing: Full Assist: SBA ? Distance:? 100 feet x 1 , 65 feet x 1? Deviation: decreased step length B decreased speed , decreased step height as fatigues. ? STAIRS: SBA 2 steps x 6sets with B rails ascending /descending with reciprocal pattern stand rest after 3 sets for pacing ? Therapeutic Exercises (43479): Direct one-on-one instruction in therapeutic exercises to develop strength, endurance, range of motion and flexibility. ? Exercises ? cervical rotation R/L 3 reps with 20 sec hold, chin tuck x 3 with 20 sec hold lateral cervical flexion x 3 R/L with 20 sec hold forward trunk flexion seated x 2 reps with 10 sec hold hands supported on w/c with wide JEANNIE at feet. ( pt limited flexion by abdominal girth) ? Provided skilled instruction in proper exercise performance ASSESSMENT:?Pt tolerated am session well. Session shortened by pt need to have BM after receiving medication earlier in the am. Pt demonstrates fair pacing on stairs requiring one cue for stand rest after completing 3 sets of 2 steps with B rails. Pt limited by report of low back pain and left sided neck pain. Gentle AROM prolonged stretch tolerated well to reduce report of pain in neck and low back. Pt noted mild SOB after walking 100 feet Sats maintained at 96%. SOB sensation resolved with 2 min seated rest and cues for deep breathing /PLB. Pt denied CP throughout session. PLAN: 1-2x/day, 7 days/week x 1 week. Plan of care has been reviewed with the VACUUM EVAPORATION OPERATOR providing the service under Physical Therapy direction. Initiate Physical Therapy intervention for strengthening, bed mobility, transfers, gait, stairs, balance training, use of assistive device. TREATMENT CODE/TIME: 84532, [id number] DISCHARGE RECOMMENDATION: Home with HHPT Patient will benefit from home health PT services in order to progress mobility level using least restrictive assistive ambulatory device, assess home safety, identify additional equipment needs, and establish a functional maintenance program that will increase ability of patient to remain at home.
[2024-08-02 11:42] VITALS: BP 97/60; PULSE 79; RESP 17; TEMP 36.8; O2SAT 98
--- NOTE | 2024-08-02 11:45 | RT.EKG_ITS ---
APPROVED REPORT Exam: Resting ECG Reason for Exam: Chest pain Patient Location: I HR:80 bpm ECG Measurements Heart Rate 80 AXIS WY 134 P 43 QRSd 88 QRS 19 QT 436 T 100 QTc 503 Conclusion Sinus rhythm...normal P axis, V-rate 50- 99 Abnormal R-wave progression, early transition...QRS area>0 in V2 Prolonged QT interval...QTc >500mS
--- NOTE | 2024-08-02 12:50 | PGE_ITS ---
Date of Service Date of service: 08/02/24 Time of Service: 12:53 Assessment and Plan Assessment and plan (1) Atherosclerosis of [place] coronary artery of [place] heart with unstable angina pectoris: Start date: 07/23/24 Status: Resolved Assessment and plan: -Second admission in the past week with chest pain. presented with resting a ngina pectoralis pressure was positive nitroglycerin and then completely responsive to nitroglycerin sublingually in the ED. -Has history of coronary artery disease, multiple stents, CABG in 2016, as well as recent normal cardiac catheterization -has a history of spontaneous subdural hematomas and [facility] cardiology wanted to minimize cardiac catheterization and did not advise aspirin, Plavix or an ticoagulation for this patient. -troponins negative and EKGs again showed no acute ischemic changes. -at 07/23- admission changed isosorbide to dinitrate, increase metoprolol from 50-100mg, added diltiazem. -Still getting chest pain, so not comfortable taking him home despite Dr. Cristina's endorsement, high likelihood of bouncing back. Continues same pattern today, now pain free again. -MPI ordered for morning 08/03 as next step. (2) Type 2 diabetes mellitus with peripheral neuropathy: Status: Chronic Assessment and plan: -sugars high. Resumed metformin at lower dose given GFR. -Sliding scale insulin, carb consistent diet while hospitalized, increase ISS to moderate. -Looks like he is only gettin HS glargine, taking BID at home, will change. (3) Chronic kidney disease (CKD) stage G3b/A1, moderately decreased glomerular filtration rate (GFR) between 30-44 mL/min/1.73 square meter and albuminuria creatinine ratio less than 30 mg/g: Status: Chronic Assessment and plan: Stable, at baseline. (4) Dementia: Status: Chronic Assessment and plan: Stable, continue outpatient medical therapy. (5) Hypertension: Status: Chronic Assessment and plan: At last admission decreased lisinopril while increasing dosing of isosorbide and nitrate. BPs have been up and down some, low now after NTG (6) Constipation: Status: Inactive Assessment and plan: a/w some anticholinergic meds. Added bisacocyl CT. Also schedule PEG and senna. Discussed other options with RN. (7) DVT prophylaxis: Status: Resolved Assessment and plan: SCDs given h/o spontanous ICH Subjective Subjective Patient reports: tolerating a regular diet and voiding w/o difficulty; denies nausea, vomiting, shortness of breath or fever Interval history since last seen: Chest pain today around noon, EKG reassuring, releived by NTG He is feeling okay other than chest pain. Sharp, mid sternal to left arm, same pain he always has. Blood sugars have been high. No other pain. Exam Narrative Exam Narrative: Gen: Alert and oriented. No evident JVP; lungs clear; heart RRR w/o MRG; abdomen soft and NT, mild distention; extremities w/o edema Objective Last Vital Signs Temp 36.8 C 08/02/24 11:42 Pulse 79 08/02/24 11:42 Resp 17 08/02/24 11:42 BP 97/60 L 08/02/24 11:42 Pulse Ox 98 08/02/24 11:42 Time Spent with Patient Time Spent with Patient: 35-49 minutes Time was spent: preparing to see the patient(eg.review tests), obtaining and/or reviewing separately otained hiistory, ordering medications,tests, procedures, referring, communicating with other health rn critical care, indepentently interpreting results, counseling the patient and care coordination
[2024-08-02 13:12] LABS: Glucose 322 mg/dL (74-106)
[2024-08-02 15:21] VITALS: BP 127/68; PULSE 74; RESP 18; TEMP 36.6; O2SAT 98
--- NOTE | 2024-08-02 15:21 | PT.INTREAT ---
PT Notes Visit Reasons: Unstable Angina Inpatient Physical Therapy Treatment Note [facility] Date: 08/02/2024 pm session PRECAUTIONS:Telemetry SUBJECTIVE:Pt reports episode of chest pain prior to lunch requiring NGT. Pt reports it took the pain away but now he is extremely tired. reporting plan for MPI test tomorrow but they do not know what time yet. ? OBJECTIVE: Pt presents seated in chair with his visiting . Pt noted to have difficulty keeping eyes open while talking. PAIN: Pt denies pain but is dropping chin to chest. VITALS: monitored via telemetry throughout ? Therapeutic Activities (72421): Direct one-on-one instruction in dynamic activities to improve functional performance. ? BED MOBILITY/TRANSFERS? Supine-sit: independent? Sit-supine: independent? Sit-stand: independent ? Stand-sit: independent? Bed-Chair: SBA ? Chair-bed: SBA functional mobility with in room to simulate mobility within home short distances <25 feet x 2 without AD SBA noted 1 episode of hand support on a chair as passed by. No LOB noted Provided skilled cues and instruction on performance and technique throughout. ASSESSMENT:?Pt with increased fatigue this pm after episode of CP requiring NGT. Pt agreeable to perform functional mobility within room for toileting needs prior to taking a rest period in bed before evening meal. PLAN: 1-2x/day, 7 days/week x 1 week. Plan of care has been reviewed with the INDUSTRIAL GARAGE SERVICER providing the service under Physical Therapy direction. Initiate Physical Therapy intervention for strengthening, bed mobility, transfers, gait, stairs, balance training, use of assistive device. TREATMENT CODE/TIME: 94116,[id number] DISCHARGE RECOMMENDATION: Home with HHPT Patient will benefit from home health PT services in order to progress mobility level using least restrictive assistive ambulatory device, assess home safety, identify additional equipment needs, and establish a functional maintenance program that will increase ability of patient to remain at home.
[2024-08-02] MEDS: Docusate Sodium 100 MG CAP PO (17:24)
[2024-08-02] MEDS: metFORMIN 500 MG TAB PO (17:24)
[2024-08-02] MEDS: Topiramate 50 MG TAB PO (20:47)
[2024-08-02] MEDS: Pantoprazole 40 MG TABCR PO (20:47)
[2024-08-02] MEDS: Insulin Glargine 300 UNITS/3 ML PEN 40 UNITS SC (20:48)
[2024-08-02] MEDS: Normal Saline Flush 10 ML SYR IVP (20:48)
[2024-08-02 22:47] VITALS: BP 151/80; PULSE 74; RESP 16; TEMP 36.1; O2SAT 95
[2024-08-02] MEDS: QUEtiapine 100 MG TAB 200 MG PO (23:00)
[2024-08-03] VITALS (8 sets, daily range): BP systolic 96–130; BP diastolic 57–75; PULSE 73–96; RESP 15–24; TEMP 36.4–36.9; O2SAT 94–99
--- NOTE | 2024-08-03 07:00 | DI.NM_ITS ---
APPROVED REPORT Exam: Pharmacologic Patient Location: In-Patient Room/Bed: Stress Nurse: Nemo Helm RN Ordering Provider:VERONIQUE NWEMAN, Contact Number: BMI: 29.26 Baseline Rhythm: Sinus Rhythm Indications: Chest pain, CAD Medical History Medical History: Atypical chest pain, blunt head trauma, alcohol abuse, ataxia, TBI, migraines, depre ssion, hx DVT, PVD, CAD, GERD, dementia, microcytic anemia, HLD, DMT2, HTN, hypothyroidism, pituitary abnormality, chronic subdermal hematoma, frequent falls Cardiac Medications: Acetylcysteine, allopurinol, amlodipine, citalopram, diltiazem, finasteride, ins ulin degludec, isosorbide mononitrate, levothyroxine, lisinopril, metformin, metoprolol succinate, my rbetriq, nitro, pantoprazole, pregabalin, quetiapine, ranolazine, topiramate Allergies: Amoxicillin, penicillins, bactrim, percocet, percodan, atorvastatin, crestor Cardiac Risk Factors: HTN, HLD, PVD, CVD, former smoker Previous Cardiac Procedures: Cardiac cath, CABG Pretest Chest Pain Characteristics: None Exercise History: Sedentary Physical Disabilities: Hx ataxia, frequent falls Lung Sounds: Clear to auscultation Heart Sounds: Regular Stress Test Details Test: Pharmacologic stress testing performed using 0.4 mg of regadenoson per 5 mL given IV over 10 s econds. Reason for pharmacologic stress test: physical limitation. Nuclear Acquisition: Rest Tc-99m/Stress Tc-99m 1 day Rest Isotope: Tc-99m Sestamibi. Dose: 10.0 Date: 08/03/2024 Injection Time: 1130 Stress Isotope: Tc-99m Sestamibi. Dose: 30.0 Date: 08/03/2024 Injection Time: 1325 HR Resting HR Supine: 86 bpm Max Heart Rate (APMHR): 146 bpm Target HR (85% APMHR): 124 bpm Max HR Achieved: 97 bpm % of APMHR: 66 Recovery HR: 91 bpm BP Resting BP Supine: 118/68 mmHg Max BP: 138/70 mmHg Recovery BP: 122/58 mmHg ECG Resting ECG: Sinus Rhythm Ectopy: None Stress ECG: Sinus Rhythm ST Change: Nondiagnostic low heart rate Arrhythmia: None Recovery ECG: Sinus Rhythm Recovery ST Change: Nondiagnostic low heart rate Recovery Arrhythmia: None Clinical Stress Symptoms: 6/10 chest tightness Angina Score: Non-Limiting Rate Pressure Product: 18874 Stress ECG Conclusion 1. THe resting electrocardiogram showed nondiagnostic ST-T abnormalities 2. Patient underwent testing using pharmacologic stress with regandenosan 3. Peak heart rate achieved was 66% of maximal predicted for age 4. See MPI report Stress Test Summary STAGE HR BP SpO2 Symptoms NOTES Supine 86 118/68 97% 1 min post Lexiscan injection 86 124/62 96% 6/10 chest tightness 3 min post Lexiscan injection 94 138/70 6 min post Lexiscan injection 91 122/58 97% Chest tightness resolved. MPI Conclusion Myocardial perfusion is normal. There is no ischemia or evidence of prior infarction Ejection fraction is 56%. Wall motion is normal
--- NOTE | 2024-08-03 08:28 | NUR.NOTE ---
Nursing Note: patient reports tightening in his chest, that radiates down left arm. patient states pain started after nurses did bedside report and he did not report it to any staff that he remembers. Patient states that sometimes he just get confused related brain bleeds, vital taken and in flow sheet. Patient states pain is starting to resolve but will take Nitro.
--- NOTE | 2024-08-03 08:45 | RT.EKG_ITS ---
APPROVED REPORT Exam: Resting ECG Reason for Exam: chest pain Patient Location: I HR:96 bpm ECG Measurements Heart Rate 96 AXIS KS 138 P 39 QRSd 86 QRS 35 QT 379 T 64 QTc 479 Conclusion Sinus rhythm...normal P axis, V-rate 50- 99 Probable left atrial enlargement...P >50mS, <-0.10mV V1 Abnormal R-wave progression, early transition...QRS area>0 in V2 Similar to previous
[2024-08-03] MEDS: Polyethylene Glycol 3350 17 GM PACKET PO (09:37)
[2024-08-03] MEDS: Lisinopril 10 MG TAB 30 MG PO (09:38)
[2024-08-03] MEDS: Allopurinol 300 MG TAB PO (09:38)
[2024-08-03] MEDS: Pregabalin 100 MG CAP PO (09:38)
[2024-08-03] MEDS: amLODIPine 2.5 MG TAB PO (09:39)
[2024-08-03] MEDS: Levothyroxine 50 MCG TAB PO (09:39)
[2024-08-03] MEDS: Ranolazine 500 MG TABCR PO ×2 (09:39→21:14)
[2024-08-03] MEDS: metFORMIN 500 MG TAB PO ×2 (09:39→17:02)
[2024-08-03] MEDS: Multivitamin TAB 1 TAB PO (09:39)
[2024-08-03] MEDS: Mirabegron 25 MG TABCR PO (09:40)
[2024-08-03] MEDS: dilTIAZem CD 120 MG CAPCR PO (09:40)
[2024-08-03] MEDS: Finasteride 5 MG TAB PO (09:40)
[2024-08-03] MEDS: Citalopram 20 MG TAB PO (09:40)
[2024-08-03] MEDS: Senna TAB 1 TAB PO ×2 (09:40→21:14)
[2024-08-03] MEDS: Isosorbide Mononitrate 60 MG TABCR PO ×2 (09:40→21:14)
[2024-08-03] MEDS: Acetylcysteine 600 MG CAP PO ×2 (09:40→21:14)
[2024-08-03] MEDS: Metoprolol CR 50 MG TABCR 100 MG PO (09:41)
--- NOTE | 2024-08-03 09:46 | CMPROGNOTE_ITS ---
Date of service: 08/03/24 Time of Service: 09:46 Care Management Progress Note Progress Note Text Progress Note Text: Andrew was sitting up in a chair when CM met with him. He was pleasant in interaction but kept nodding off during the conversation. Andrew explained that he did not sleep much at all last night. He stated that he had to get up to urinate every 1-2 hours. He said it was because he didn't drink enough. CM commented that that usually occurs when someone has had too much fluid to drink but Andrew stated his body doesn't work that way. Andrew is scheduled to have a stress test early this afternoon. So far his cardiac workup has been negative. Andrew indicated that he is still nervous about going home even if the stress test is negative. He reported that he has chronic chest pain that is relieved by nitroglycerin. He was not able to identify what was different about the chest pain last week or on this admission that made him seek medical help. Discharge Potential Discharge Needs: PCP F/U Appt Anticipated Barriers to Discharge: Other (patient and anxiety) Patient/Family Education Needs: Review discharge instructions, discuss Ask Me Three Transportation: Private vehicle Plan: Anticipate Fredo will return home with new home health services for nursing and PT once medically cleared. His or son will transport him home via private vehicle and he will follow up with his PCP and discharge plan of care. CM will continue to assess for discharged needs. Social Determinants of Health Screening Will the Patient Participate in the Screening?: Declined to provide Social Determinants of Health Comments([facility] Details): Plans and situation have not changed from prior admission assessment from prior week, patient states. Declines questionnaire at this time.
[2024-08-03] MEDS: Insulin Glargine 300 UNITS/3 ML PEN 40 UNITS SC ×2 (09:53→21:15)
[2024-08-03] MEDS: Insulin Aspart 300 UNITS/3 ML PEN SC ×2 (09:53→17:27)
[2024-08-03 10:35] LABS: Troponin I 6 ng/L (<or=76)
[2024-08-03] MEDS: Regadenoson 0.4 MG/5 ML SYR IVP (13:34)
--- NOTE | 2024-08-03 14:11 | PTTR_ITS ---
PT Notes Visit Reasons: Unstable Angina Inpatient Physical Therapy Treatment Note [facility] Date: 08/03/2024 PRECAUTIONS:Telemetry SUBJECTIVE:Pt reports episode of chest pain this am requiring NGT. Pt reports it took the pain away He reports he is having the stress test at 1:30pm? OBJECTIVE: Pt presents seated in chair. (PM) Pt not available for pm session d/t MPI test VITALS: monitored via telemetry throughout ? Therapeutic Activities (88691): Direct one-on-one instruction in dynamic activities to improve functional performance. ? BED MOBILITY/TRANSFERS? Supine-sit: independent? Sit-supine: independent? Sit-stand: independent ? Stand-sit: independent? Bed-Chair: SBA ? Chair-bed: SBA functional mobility without AD within room to simulate mobility within home SBA Provided skilled cues and instruction on performance and technique jason bryant. ambulation with FWW SBA with 2 stand rest 150 feet . Pt reporting cramping in his lower legs ASSESSMENT:?Pt with decreased tolerance to ambulation this session. Pt noted cramping and fatigue in his lower legs with ambulation >50 feet. Pt denies cramping during ambulation within his room mobility. Pt with likely intermittent claudication BLE. Cramping resolves with seated rest. PLAN: 1-2x/day, 7 days/week x 1 week. Plan of care has been reviewed with the INTERIOR DESIGNER providing the service under Physical Therapy direction. Initiate Physical Therapy intervention for strengthening, bed mobility, transfers, gait, stairs, balance training, use of assistive device. TREATMENT CODE/TIME: 89230,[id number] (PM) pt not available d/t MPI test. DISCHARGE RECOMMENDATION: Home with HHPT Patient will benefit from home health PT services in order to progress mobility level using least restrictive assistive ambulatory device, assess home safety, identify additional equipment needs, and establish a functional maintenance program that will increase ability of patient to remain at home.
--- NOTE | 2024-08-03 15:40 | CHAPLAIN ---
Fredo was up in the chair when I visited. His son was with him. Andrew said he is waiting for the results of some cardiac tests that he had today. He is a member of the [facility] [employer] and they are aware that he is here.
--- NOTE | 2024-08-03 15:44 | W.PM.PROGNOT ---
Date of Service Date of service: 08/03/24 Time of Service: 15:44 Assessment and Plan Assessment and plan (1) Atherosclerosis of [place] coronary artery of [place] heart with unstable angina pectoris: Start date: 07/23/24 Status: Resolved Assessment and plan: -Second admission in the past week with chest pain. presented with resting angina pectoralis pressure was positive nitroglycerin and then completely responsive to nitroglycerin sublingually in the ED. -Has history of coronary artery disease, multiple stents, CABG in 2016, as well as recent normal cardiac catheterization -has a history of spontaneous subdural hematomas and [facility] cardiology wanted to minimize cardiac catheterization and did not advise aspirin, Plavix or anticoagulation for this patient. -troponins negative and EKGs again showed no acute ischemic changes. -at 07/23- admission changed isosorbide to dinitrate, increase metoprolol from 50-100mg, added diltiazem. -Still getting chest pain, so not comfortable taking him home despite Dr. Cristina's endorsement, high likelihood of bouncing back. Continues same pattern today, now pain free again. -MPI ordered for morning 08/03 as next step. 08/03/24 Pt's MPI was reassuring. 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 Will see if we can order a esophageal manometry Patient Name: Fredo Osman Unit #: [id number] Loc: [place] Ordering Provider: Veronique Ocasio Status: ADM IN Primary Care Provider: Alisa Ramirez M.D. Date of Exam: 08/03/24 Sex: M Admission Date: 07/31/24 : 1950 Age: 73 APPROVED REPORT Exam: Pharmacologic Patient Location: In-Patient Room/Bed: Stress Nurse: Nemo Helm RN Ordering Provider:VERONIQUE OCASIO, Contact Number: BMI: 29.26 Baseline Rhythm: Sinus Rhythm Indications: Chest pain, CAD Medical History Medical History: Atypical chest pain, blunt head trauma, alcohol abuse, ataxia, TBI, migraines, depression, hx DVT, PVD, CAD, GERD, dementia, microcytic anemia, HLD, DMT2, HTN, hypothyroidism, pituitary abnormality, chronic subdermal hematoma, frequent falls Cardiac Medications: Acetylcysteine, allopurinol, amlodipine, citalopram, diltiazem, finasteride, insulin degludec, isosorbide mononitrate, levothyroxine, lisinopril, metformin, metoprolol succinate, myrbetriq, nitro, pantoprazole, pregabalin, quetiapine, ranolazine, topiramate Allergies: Amoxicillin, penicillins, bactrim, percocet, percodan, atorvastatin, crestor Cardiac Risk Factors: HTN, HLD, PVD, CVD, former smoker Previous Cardiac Procedures: Cardiac cath, CABG Pretest Chest Pain Characteristics: None Exercise History: Sedentary Physical Disabilities: Hx ataxia, frequent falls Lung Sounds: Clear to auscultation Heart Sounds: Regular Stress Test Details Test: Pharmacologic stress testing performed using 0.4 mg of regadenoson per 5 mL given IV over 10 seconds. Reason for pharmacologic stress test: physical limitation. Nuclear Acquisition: Rest Tc-99m/Stress Tc-99m 1 day Rest Isotope: Tc-99m Sestamibi. Dose: 10.0 Date: 08/03/2024 Injection Time: 1130 Stress Isotope: Tc-99m Sestamibi. Dose: 30.0 Date: 08/03/2024 Injection Time: 1325 HR Resting HR Supine: 86 bpmMax Heart Rate (APMHR): 146 bpm Target HR (85% APMHR): 124 bpm Max HR Achieved: 97 bpm % of APMHR: 66 Recovery HR: 91 bpm BP Resting BP Supine: 118/68 mmHg Max BP: 138/70 mmHg Recovery BP: 122/58 mmHg ECG Resting ECG: Sinus Rhythm Ectopy: None Stress ECG: Sinus Rhythm ST Change: Nondiagnostic low heart rate Arrhythmia: None Recovery ECG: Sinus Rhythm Recovery ST Change: Nondiagnostic low heart rate Recovery Arrhythmia: None Clinical Stress Symptoms: 6/10 chest tightness Angina Score: Non-Limiting Rate Pressure Product: 45079 Stress ECG Conclusion 1. THe resting electrocardiogram showed nondiagnostic ST-T abnormalities 2. Patient underwent testing using pharmacologic stress with regandenosan 3. Peak heart rate achieved was 66% of maximal predicted for age 4. See MPI report Stress Test Summary [id number]/6897% 1 min post Lexiscan [id number]/[id number]%6/10 chest tightness 3 min post Lexiscan [id number]/70 6 min post Lexiscan [id number]%Chest tightness resolved. MPI Conclusion Myocardial perfusion is normal. There is no ischemia or evidence of prior infarction Ejection fraction is 56%. Wall motion is normal Ordered By: Veronique Ocasio CC: Dictated By: Gabriella Cristina M.D. 08/03/24 1352 <Electronically signed by Gabriella Cristina M.D. in [place]> 08/03/24 4570 (2) Type 2 diabetes mellitus with peripheral neuropathy: Status: Chronic Assessment and plan: -sugars high. Resumed metformin at lower dose given GFR. -Sliding scale insulin, carb consistent diet while hospitalized, increase ISS to moderate. -Looks like he is only gettin HS glargine, taking BID at home, will change. (3) Chronic kidney disease (CKD) stage G3b/A1, moderately decreased glomerular filtration rate (GFR) between 30-44 mL/min/1.73 square meter and albuminuria creatinine ratio less than 30 mg/g: Status: Chronic Assessment and plan: Stable, at baseline. (4) Dementia: Status: Chronic Assessment and plan: Stable, continue outpatient medical therapy. (5) Hypertension: Status: Chronic Assessment and plan: At last admission decreased lisinopril while increasing dosing of isosorbide and nitrate. BPs have been up and down some, low now after NTG (6) Constipation: Status: Inactive Assessment and plan: a/w some anticholinergic meds. Added bisacocyl [place]. Also schedule PEG and senna. Discussed other options with RN. (7) DVT prophylaxis: Status: Resolved Assessment and plan: SCDs given h/o spontanous ICH Subjective Subjective Interval history since last seen: Pt seen and examined in the am. Pt did have right sided chest pain this am which was relieved with nitroglycerin. Stress test results are reassuring. Exam Narrative Exam Narrative: Gen: Alert and oriented. No evident JVP; lungs clear; heart RRR w/o MRG; abdomen soft and NT, mild distention; extremities w/o edema Objective Last Vital Signs Temp 36.4 C L 08/03/24 15:29 Pulse 79 08/03/24 15:29 Resp 24 08/03/24 15:29 BP 96/57 L 08/03/24 15:29 Pulse Ox 97 08/03/24 15:29 Laboratory Results - last 24 hr 08/03/24 09:10 Troponin I 6 Time Spent with Patient Time Spent with Patient: 25-34 minutes Time was spent: preparing to see the patient(eg.review tests), obtaining and/or reviewing separately otained hiistory, ordering medications,tests, procedures, referring, communicating with other health respiratory care technician, indepentently interpreting results, counseling the patient and care coordination
[2024-08-03] MEDS: Bisacodyl 10 MG SUPP PR (18:50)
[2024-08-03] MEDS: Docusate Sodium 100 MG CAP PO (21:14)
[2024-08-03] MEDS: Pantoprazole 40 MG TABCR PO (21:14)
[2024-08-03] MEDS: Topiramate 50 MG TAB PO (21:14)
[2024-08-03] MEDS: QUEtiapine 100 MG TAB 200 MG PO (22:37)
[2024-08-04 06:33] LABS: Abs Immature Grans 0.05 10^3/uL (0.0-0.06); Absolute Basophil Count 0.13 10^3/uL (0.0-0.2); Absolute Eosinophil Count 0.32 10^3/uL (0.0-0.7); Absolute Lymphocyte Count 1.53 10^3/uL (1.2-3.4); Absolute Monocyte Count 0.85 10^3/uL (0.1-0.8); Absolute Neutrophil Count 5.88 10^3/uL (1.2-6.7); Basophils % 1.5 %; Eosinophils % 3.7 %; HCT 37.9 % (40.0-50.0); HGB 12.9 g/dL (13.5-17.5); Immature Grans % 0.6 %; Lymphocytes % 17.5 %; MCH 30.4 pg (27.0-33.0); MCV 89 fL (80-95); Monocytes % 9.7 %; Platelet Count 218 10^3/uL (130-400); RBC 4.25 10^6/uL (4.36-5.78); RDW 13.9 % (11.8-14.1); RDW-SD 45.2 fL; WBC 8.76 10^3/uL (4.4-10.8)
[2024-08-04 06:59] LABS: ALT 25 U/L (16-63); AST 7 U/L (15-37); Albumin 3.8 g/dL (3.4-5.0); Alkaline Phosphatase 96 U/L (46-116); Anion Gap 12.3 mmol/L (3-11); BUN 41 mg/dL (7-18); Bilirubin, Total 0.33 mg/dL (0.2-1.0); CO2 20.7 mmol/L (21.0-32.0); CREATININE 2.6 mg/dL (0.70-1.30); Calcium 8.8 mg/dL (8.5-10.1); Chloride 103 mmol/L (98-107); Estimated GFR 25.09 (mL/min/1.73m2); Glucose 180 mg/dL (74-106); Potassium 4.2 mmol/L (3.5-5.1); Sodium 136 mmol/L (136-145); Total Protein 7.1 g/dL (6.4-8.2)
[2024-08-04 07:44] VITALS: BP 89/52; PULSE 86; RESP 15; TEMP 37.6; O2SAT 97
[2024-08-04] MEDS: Allopurinol 300 MG TAB PO (08:04)
[2024-08-04] MEDS: Polyethylene Glycol 3350 17 GM PACKET PO (08:04)
[2024-08-04] MEDS: Pregabalin 100 MG CAP PO (08:04)
[2024-08-04] MEDS: Metoprolol CR 50 MG TABCR 100 MG PO (08:04)
[2024-08-04] MEDS: metFORMIN 500 MG TAB PO (08:04)
[2024-08-04] MEDS: Mirabegron 25 MG TABCR PO (08:04)
[2024-08-04] MEDS: Ranolazine 500 MG TABCR PO ×2 (08:04→20:48)
[2024-08-04] MEDS: Acetylcysteine 600 MG CAP PO ×2 (08:04→20:48)
[2024-08-04] MEDS: Lisinopril 10 MG TAB 30 MG PO (08:04)
[2024-08-04] MEDS: Levothyroxine 50 MCG TAB PO (08:04)
[2024-08-04] MEDS: Isosorbide Mononitrate 60 MG TABCR PO ×2 (08:04→20:48)
[2024-08-04] MEDS: Normal Saline Flush 10 ML SYR IVP (08:05)
[2024-08-04] MEDS: Multivitamin TAB 1 TAB PO (08:05)
[2024-08-04] MEDS: Citalopram 20 MG TAB PO (08:05)
[2024-08-04] MEDS: amLODIPine 2.5 MG TAB PO (08:05)
[2024-08-04] MEDS: dilTIAZem CD 120 MG CAPCR PO (08:05)
[2024-08-04] MEDS: Senna TAB 1 TAB PO ×2 (08:05→20:48)
[2024-08-04] MEDS: Finasteride 5 MG TAB PO (08:05)
[2024-08-04] MEDS: Insulin Glargine 300 UNITS/3 ML PEN 40 UNITS SC ×2 (08:07→22:49)
[2024-08-04] MEDS: Insulin Aspart 300 UNITS/3 ML PEN SC ×3 (08:08→16:57)
[2024-08-04 08:28] VITALS: BP 98/50
--- NOTE | 2024-08-04 09:00 | PDOC.CMPRO ---
Date of service: 08/04/24 Time of Service: 09:00 Care Management Progress Note Progress Note Text Progress Note Text: Andrew was sitting up in a chair eating lunch when CM met with him. Andrew had a stress test yesterday with no acute findings to explain his continued intermittent chest pain. He was going to be discharged however his creatinine bumped up from 1.8 to 2.6 and he will be given IV fluids. Additionally, Andrew reported that he has not had a BM in several days and feels his abdomen is distended. There were 2 small soft BMS recorded yesterday and another one a couple of days before that. It may be that Andrew does not remember as he does carry the diagnosis of dementia. Discharge Potential Discharge Needs: PCP F/U Appt and Other (cardiology) Anticipated Barriers to Discharge: Medical Status Patient/Family Education Needs: Review discharge instructions, discuss Ask Me Three Transportation: Private vehicle Plan: Anticipate Fredo will return home with new home health services for nursing and PT once medically cleared. His or son will transport him home via private vehicle and he will follow up with his PCP and discharge plan of care. CM will continue to assess for discharged needs. Social Determinants of Health Screening Will the Patient Participate in the Screening?: Declined to provide Social Determinants of Health Comments([facility] Details): Plans and situation have not changed from prior admission assessment from prior week, patient states. Declines questionnaire at this time.
--- NOTE | 2024-08-04 10:25 | PT.INTREAT ---
PT Notes Visit Reasons: Unstable Angina Inpatient Physical Therapy Treatment Note [facility] Date: 08/03/2024 PRECAUTIONS:Telemetry SUBJECTIVE:Pt reports feeling tired this morning but wants to walk and try the stairs. Pt reports he has not had a BM since he was at home. He reports his stomach/ abdomen is hard and distended. Pt reports he had miralax and something else but has not gone . he noted very small BM after suppository last night. OBJECTIVE: Pt presents seated in chair abdomen remains distended VITALS: monitored via telemetry throughout ? Therapeutic Activities (99516): Direct one-on-one instruction in dynamic activities to improve functional performance. ? BED MOBILITY/TRANSFERS? Supine-sit: independent? Sit-supine: independent? Sit-stand: independent ? Stand-sit: independent? Bed-Chair: SBA ? Chair-bed: SBA Provided skilled cues and instruction on performance and technique throughout. ambulation with FWW SBA 50 ft x 2, 150 feet x 2 with sit rest between. Pt reporting cramping in his lower legs after initial 50 feet . stairs : 2 steps x 6 trials with 2 rails SBA. (total of 12 steps to simulate FOS at home with B rails) ASSESSMENT:? Pt again noted cramping and fatigue in his lower legs with ambulation >50 feet. Pt able to perform stairs with B rails. he noted SOB after completing 6 reps of 2 steps He denied chest pain stating it was SOB. PLAN: 1-2x/day, 7 days/week x 1 week. Plan of care has been reviewed with the SENIOR BUYER PLANNER providing the service under Physical Therapy direction. Initiate Physical Therapy intervention for strengthening, bed mobility, transfers, gait, stairs, balance training, use of assistive device. TREATMENT CODE/TIME: 65525,[id number] (PM) pt not available d/t MPI test. DISCHARGE RECOMMENDATION: Home with HHPT Patient will benefit from home health PT services in order to progress mobility level using least restrictive assistive ambulatory device, assess home safety, identify additional equipment needs, and establish a functional maintenance program that will increase ability of patient to remain at home.
[2024-08-04 11:19] VITALS: BP 102/61; PULSE 81; RESP 15; TEMP 37.4; O2SAT 96
--- NOTE | 2024-08-04 14:53 | PTTR_ITS ---
PT Notes Visit Reasons: Unstable Angina Date: 08/04/2024 PRECAUTIONS:Telemetry SUBJECTIVE: Pt in recliner when approached for tjerapy this afternoon, pt reports he feels discomfort feeling very tight on his abdomen, has been having no luck with BM, pt agreed to participating with therapy. OBJECTIVE: Pt presents seated in chair abdomen remains distended VITALS: monitored via telemetry throughout ? Therapeutic Activities (57290): Direct one-on-one instruction in dynamic activities to improve functional performance. ? BED MOBILITY/TRANSFERS? Supine-sit: independent? Sit-supine: independent? Sit-stand: independent ? Stand-sit: independent? Bed-Chair: independent ? Chair-bed: independent Provided skilled cues and instruction on performance and technique throughout. Gait training with FWW SBA 150 feet x 4 with sit rest between. Stairs : Step over step on building stair case 12steps with 1handrail CGA with pt requiring rest break upon reaching the landing to be able to continue on his way down ASSESSMENT:? Pt reports he was happy to be able to go on the staircase only complaint was 0/10 for pain on lowback increased to 6/10 after activity. pt reports the pain was subsiding after resting in recliner. 1-2x/day, 7 days/week x 1 week. Plan of care has been reviewed with the PARKING REGULATION ENFORCEMENT OFFICER providing the service under Physical Therapy direction. Initiate Physical Therapy intervention for strengthening, bed mobility, transfers, gait, stairs, balance training, use of assistive device. TREATMENT CODE/TIME: 17688t4, 24080h5 40mins(2:10-2:50pm) DISCHARGE RECOMMENDATION: Home with HHPT Patient will benefit from home health PT services in order to progress mobility level using least restrictive assistive ambulatory device, assess home safety, identify additional equipment needs, and establish a functional maintenance program that will increase ability of patient to remain at home.
--- NOTE | 2024-08-04 15:04 | W.PM.PROGNOT ---
Date of Service Date of service: 08/04/24 Time of Service: 15:04 Assessment and Plan Assessment and plan (1) Atherosclerosis of [place] coronary artery of [place] heart with unstable angina pectoris: Start date: 07/23/24 Status: Resolved Assessment and plan: -Second admission in the past week with chest pain. presented with resting angina pectoralis pressure was positive nitroglycerin and then completely responsive to nitroglycerin sublingually in the ED. -Has history of coronary artery disease, multiple stents, CABG in 2016, as well as recent normal cardiac catheterization -has a history of spontaneous subdural hematomas and [facility] cardiology wanted to minimize cardiac catheterization and did not advise aspirin, Plavix or anticoagulation for this patient. -troponins negative and EKGs again showed no acute ischemic changes. -at 07/23- admission changed isosorbide to dinitrate, increase metoprolol from 50-100mg, added diltiazem. -Still getting chest pain, so not comfortable taking him home despite Dr. Cristina's endorsement, high likelihood of bouncing back. Continues same pattern today, now pain free again. -MPI ordered for morning 08/03 as next step. 08/03/24 Pt's MPI was reassuring. 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 Will see if we can order a esophageal manometry Patient Name: Fredo Osman Unit #: [id number] Loc: [place] Ordering Provider: Veronique Ocasio Status: ADM IN Primary Care Provider: Alisa Ramirez M.D. Date of Exam: 08/03/24 Sex: M Admission Date: 07/31/24 : 1950 Age: 73 APPROVED REPORT Exam: Pharmacologic Patient Location: In-Patient Room/Bed: Stress Nurse: Nemo Helm RN Ordering Provider:VERONIQUE OCASIO, Contact Number: BMI: 29.26 Baseline Rhythm: Sinus Rhythm Indications: Chest pain, CAD Medical History Medical History: Atypical chest pain, blunt head trauma, alcohol abuse, ataxia, TBI, migraines, depression, hx DVT, PVD, CAD, GERD, dementia, microcytic anemia, HLD, DMT2, HTN, hypothyroidism, pituitary abnormality, chronic subdermal hematoma, frequent falls Cardiac Medications: Acetylcysteine, allopurinol, amlodipine, citalopram, diltiazem, finasteride, insulin degludec, isosorbide mononitrate, levothyroxine, lisinopril, metformin, metoprolol succinate, myrbetriq, nitro, pantoprazole, pregabalin, quetiapine, ranolazine, topiramate Allergies: Amoxicillin, penicillins, bactrim, percocet, percodan, atorvastatin, crestor Cardiac Risk Factors: HTN, HLD, PVD, CVD, former smoker Previous Cardiac Procedures: Cardiac cath, CABG Pretest Chest Pain Characteristics: None Exercise History: Sedentary Physical Disabilities: Hx ataxia, frequent falls Lung Sounds: Clear to auscultation Heart Sounds: Regular Stress Test Details Test: Pharmacologic stress testing performed using 0.4 mg of regadenoson per 5 mL given IV over 10 seconds. Reason for pharmacologic stress test: physical limitation. Nuclear Acquisition: Rest Tc-99m/Stress Tc-99m 1 day Rest Isotope: Tc-99m Sestamibi. Dose: 10.0 Date: 08/03/2024 Injection Time: 1130 Stress Isotope: Tc-99m Sestamibi. Dose: 30.0 Date: 08/03/2024 Injection Time: 1325 HR Resting HR Supine: 86 bpmMax Heart Rate (APMHR): 146 bpm Target HR (85% APMHR): 124 bpm Max HR Achieved: 97 bpm % of APMHR: 66 Recovery HR: 91 bpm BP Resting BP Supine: 118/68 mmHg Max BP: 138/70 mmHg Recovery BP: 122/58 mmHg ECG Resting ECG: Sinus Rhythm Ectopy: None Stress ECG: Sinus Rhythm ST Change: Nondiagnostic low heart rate Arrhythmia: None Recovery ECG: Sinus Rhythm Recovery ST Change: Nondiagnostic low heart rate Recovery Arrhythmia: None Clinical Stress Symptoms: 6/10 chest tightness Angina Score: Non-Limiting Rate Pressure Product: 07792 Stress ECG Conclusion 1. THe resting electrocardiogram showed nondiagnostic ST-T abnormalities 2. Patient underwent testing using pharmacologic stress with regandenosan 3. Peak heart rate achieved was 66% of maximal predicted for age 4. See MPI report Stress Test Summary [id number] [id number]/6897% 1 min post Lexiscan [id number]/6296%6/10 chest tightness 3 min post Lexiscan [id number]/70 6 min post Lexiscan [id number]/5897%Chest tightness resolved. MPI Conclusion Myocardial perfusion is normal. There is no ischemia or evidence of prior infarction Ejection fraction is 56%. Wall motion is normal Ordered By: Veronique Ocasio CC: Dictated By: Gabriella Cristina M.D. 08/03/24 8592 <Electronically signed by Gabriella Cristina M.D. in [place]> 08/03/24 5179 2 Pt does not appear to being having any active CAD. Will monitor (2) Type 2 diabetes mellitus with peripheral neuropathy: Status: Chronic Assessment and plan: -sugars high. Resumed metformin at lower dose given GFR. -Sliding scale insulin, carb consistent diet while hospitalized, increase ISS to moderate. -Looks like he is only gettin HS glargine, taking BID at home, will change. (3) Chronic kidney disease (CKD) stage G3b/A1, moderately decreased glomerular filtration rate (GFR) between 30-44 mL/min/1.73 square meter and albuminuria creatinine ratio less than 30 mg/g: Status: Chronic Assessment and plan: Stable, at baseline. (4) Dementia: Status: Chronic Assessment and plan: Stable, continue outpatient medical therapy. (5) Hypertension: Status: Chronic Assessment and plan: At last admission decreased lisinopril while increasing dosing of isosorbide and nitrate. BPs have been up and down some, low now after NTG (6) Constipation: Status: Inactive Assessment and plan: a/w some anticholinergic meds. Added bisacocyl OR. Also schedule PEG and senna. Discussed other options with RN. 08.04.24 Pt does continue to have constipation and I will add a a kub. Considering golytely vs SSE (7) DVT prophylaxis: Status: Resolved Assessment and plan: SCDs given h/o spontanous ICH (8) Nutcracker esophagus: Status: Acute Assessment and plan: Considering the pt does respond to nitro, would consider this in the differential diagnosis. Unfortunately, we do not have esophageal manometry at this facility Subjective Subjective Interval history since last seen: Pt seen and examined in his room this am. Pt does complain of abdominal distention but no new chest pain. POC d/w pt as well as bedside nurse during MDR Objective Last Vital Signs Temp 37.4 C 08/04/24 11:19 Pulse 81 08/04/24 11:19 Resp 15 08/04/24 11:19 BP 102/61 08/04/24 11:19 Pulse Ox 96 08/04/24 11:19 Laboratory Results - last 24 hr 08/04/24 06:17 WBC 8.76 RBC 4.25 L Hgb 12.9 L Hct 37.9 L MCV 89 MCH 30.4 MCHC 34.0 RDW 13.9 Plt Count 218 MPV 9.0 Immature Gran % 0.6 Neutrophils % 67.0 Lymphocytes % 17.5 Monocytes % 9.7 Eosinophils % 3.7 Basophils % 1.5 Nucleated RBC % 0.0 Absolute Neutrophils 5.88 Absolute Lymphocytes 1.53 Absolute Monocytes 0.85 H Absolute Eosinophils 0.32 Absolute Basophils 0.13 Sodium 136 Potassium 4.2 Chloride 103 Carbon Dioxide 20.7 L Anion Gap 12.3 H BUN 41 H Creatinine 2.6 H Est GFR (CKD-EPI 2020) 25.09 Glucose 180 H Calcium 8.8 Total Bilirubin 0.33 AST 7 L ALT 25 Alkaline Phosphatase 96 Total Protein 7.1 Albumin 3.8 Time Spent with Patient Time Spent with Patient: 25-34 minutes Time was spent: preparing to see the patient(eg.review tests), obtaining and/or reviewing separately otained hiistory, ordering medications,tests, procedures, referring, communicating with other health director of managed care, indepentently interpreting results, counseling the patient and care coordination
[2024-08-04 15:37] VITALS: BP 106/85; PULSE 76; RESP 20; TEMP 36.6; O2SAT 99
--- NOTE | 2024-08-04 15:40 | DI.RAD_ITS ---
Exam(s) XR ABDOMEN FLAT UPRIGHT EXAM: 2D digital imaging was performed. CLINICAL HISTORY: abdominal distention. COMPARISON: CT CT THORAX ABD/PEL CTA from 07/30/2024 TECHNIQUE: Supine and upright views of the abdomen were performed. FINDINGS: BOWEL GAS PATTERN: Nondistended.No free air. Large quantity of stool seen in the ascending through m id descending colon. Some gaseous distended of a rim redundant sigmoid. CALCIFICATIONS: No gross evidence urinary tract calcifications of the kidneys are seen obscured by st ool. OSSEOUS STRUCTURES: Degenerative changes in the lumbar spine. Visualized portions of chest: Unremarkable. Sternal wires. Soft tissues: Portions of the lateral aspect of the abdomen are not included in the field of view. IMPRESSION: Nonobstructive bowel gas pattern. Large quantity of stool in the ascending through mid descending co maureen. DATA REPOSITORY: RADIATION DOSE DELIVERED:
--- NOTE | 2024-08-04 16:05 | NUR.NOTE ---
Nursing Note: pt requested Soap Sudds Enema after dinner tonight. AP RN
[2024-08-04] MEDS: Lactated Ringers 1,000 ML 125 ML IV (17:54)
[2024-08-04 19:35] VITALS: BP 120/63; PULSE 82; RESP 20; TEMP 36.5; O2SAT 99
[2024-08-04] MEDS: Docusate Sodium 100 MG CAP PO (20:48)
[2024-08-04] MEDS: Pantoprazole 40 MG TABCR PO (20:48)
[2024-08-04] MEDS: Topiramate 50 MG TAB PO (20:48)
[2024-08-04] MEDS: QUEtiapine 100 MG TAB 200 MG PO (22:48)
[2024-08-04 23:22] VITALS: BP 136/69; PULSE 73; RESP 20; TEMP 36.2; O2SAT 99
[2024-08-05] MEDS: Lactated Ringers 1,000 ML 125 ML IV ×2 (02:05→11:00)
[2024-08-05 03:31] VITALS: BP 118/61; PULSE 81; RESP 20; TEMP 36.7; O2SAT 97
[2024-08-05] MEDS: Docusate Sodium 100 MG CAP PO (06:32)
[2024-08-05] MEDS: Milk of Magnesia 30 ML CUP PO (06:32)
[2024-08-05] MEDS: Levothyroxine 50 MCG TAB PO (06:34)
[2024-08-05 07:30] VITALS: BP 117/61; PULSE 84; RESP 19; TEMP 36.6; O2SAT 96
[2024-08-05] MEDS: Polyethylene Glycol 3350 17 GM PACKET PO (07:55)
[2024-08-05] MEDS: Allopurinol 300 MG TAB PO (07:56)
[2024-08-05] MEDS: Senna TAB 1 TAB PO (07:56)
[2024-08-05] MEDS: Citalopram 20 MG TAB PO (07:56)
[2024-08-05] MEDS: Multivitamin TAB 1 TAB PO (07:56)
[2024-08-05] MEDS: Pregabalin 100 MG CAP PO (07:56)
[2024-08-05] MEDS: Ranolazine 500 MG TABCR PO (07:57)
[2024-08-05] MEDS: Acetylcysteine 600 MG CAP PO (07:57)
[2024-08-05] MEDS: Finasteride 5 MG TAB PO (07:57)
[2024-08-05] MEDS: Mirabegron 25 MG TABCR PO (07:57)
[2024-08-05] MEDS: Isosorbide Mononitrate 60 MG TABCR PO (07:58)
[2024-08-05] MEDS: Normal Saline Flush 10 ML SYR IVP (08:04)
[2024-08-05 09:03] LABS: ALT 26 U/L (16-63); AST 9 U/L (15-37); Albumin 3.7 g/dL (3.4-5.0); Alkaline Phosphatase 100 U/L (46-116); Anion Gap 9.5 mmol/L (3-11); BUN 41 mg/dL (7-18); Bilirubin, Total 0.33 mg/dL (0.2-1.0); CO2 23.5 mmol/L (21.0-32.0); CREATININE 2.5 mg/dL (0.70-1.30); Chloride 103 mmol/L (98-107); Glucose 193 mg/dL (74-106); Potassium 4.3 mmol/L (3.5-5.1); Sodium 136 mmol/L (136-145); Total Protein 7.2 g/dL (6.4-8.2)
[2024-08-05] MEDS: Empaglifozin 10 MG TAB PO ×2 (09:51→15:25)
[2024-08-05] MEDS: Magnesium Citrate 300 ML BTL 150 ML PO ×2 (09:51→10:57)
[2024-08-05] MEDS: Insulin Aspart 300 UNITS/3 ML PEN SC ×2 (09:53→13:00)
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
[2024-08-05] MEDS: Insulin Glargine 300 UNITS/3 ML PEN 40 UNITS SC (10:57)
[2024-08-05 11:17] VITALS: BP 124/68; PULSE 87; RESP 18; TEMP 36.7; O2SAT 100
--- NOTE | 2024-08-05 16:26 | PDOC.HHF2F_ITS ---
Home Health Referral Home Health Orders Clinical synopsis of why skilled professionals are needed: This 73 years old male patient with past medical history of coronary artery disease, multiple stents, CABG in 2016 and normal cardiac cath, spontaneous subdural hematoma for which [facility] [place] wanted to minimize cardiac catheterization presented to the ED at [facility] on 07/31/2024 with complaints of chest pain the second time in the past week. Reported chest pain at rest such as dull, left-sided with radiation to his left arm and his back between his shoulder blades. The workup in the ED showed negative troponin and EKG showed no acute ischemic changes. [facility] [place]ology did not recommend aspirin or Plavix or anticoagulation; they also felt that it felt like more vasospasm. Patient was reluctant for transfer for discharge such as [place], [place], or [place] due to his 's ability to get there; at this time [facility] [place], [facility], and [facility] could not accept the patient due to capacity. Angina pectoralis pressure showed transient positive response to to nitroglycerin sublingual in the ED.The patient was admitted to the medical surgical floor under hospitalist services to the medical surgical floor with telemetry for evaluation and management of unstable angina. MPI was recommended and ordered with reassuring results but as a possible diagnosis of hypercontractile peristalsis which also responded to nitro. An outpatient oesophageal manometry is also recommended and this needs to be discussed with the primary care practitioner for referral. Dr. Cristina, transfer professor recommended to discharge home with repeat MPI outpatient due to is known coronary disease. The patient developed BABS status post MPI, metformin was held due to creatinine up to 2.6 but now trending down status post IV fluid administration. Jardiance was initiated at renal dose. An outpatient BMP was o rdered with follow-up by per primary care practitioner. The patient had had no bowel movement since 07/29/24 prior to admission, with development of abdominal pain and abnormal chest x-ray was completed that showed massive stool burden without obstruction. The constipation was treated and the patient had a copious bowel movement today. Chest pain has resolved and the patient will be discharge home today and will need a follow-up with his primary care practitioner within 7 days of discharge.Patient was seen by physical therapy with recommendation for discharge home with home health physical therapy Patient will benefit from home health PT services in order to progress mobility level using least restrictive assistive ambulatory device, assess home safety, identify additional equipment needs, and establish a functional maintenance program that will increase ability of patient to remain at home. Discussed with Dr. Le Physical Therapist: Check all that apply Increase strength & endurance for safe mobility at home: Ordered To design/establish home maintenance program: Ordered Home safety evaluation and teaching/gait training including stair management (if applicable): Ordered Encounter Date and Reason: I certify that a FTF encounter for this patient was performed on August 05, 2024 and that such encounter was related to the primary reason the patient requires home health services. The encounter [facility] conducted [facility] er: * By me as the certifying physician, LATHE SETUP OPERATOR, PA or * By an inpatient physician, LATHE SETUP OPERATOR or PA during an inpatient stay who communicated findings to me, Certification And Authentication I certify that I composed the above information based on my clinical judgment relating to this patient's medical condition and, if applicable, clinical findings communicated to me by the NPP or inpatient physician who performed the FTF encounter. Name of Provider that will be monitoring home health services: Alisa Ramirez
--- NOTE | 2024-08-05 17:17 | CMDISCH_ITS ---
Date of service: 08/05/24 Time of Service: 15:00 LACE Index Scoring Tool Questions: Length of Stay (in days): 4 - 6 Was the patient admitted via the E.D.?: Yes Comorbidities: Diabetes w/o Complication and Mild Liver/Renal Disease E.D. Visits: 5 Answers: Total Score: 14 Risk of Readmission: High Risk Care Management Discharge Plan Reason for Hospitalization: unstable angina Discharge Plan: Fredo was discharged home earlier today with new orders for PT. He was encouraged to f/u with his PCP, who in turn was encouraged to refer Andrew for stress testing and esophageal manometry. Andrwe also has orders for f/u lab work this week. Fredo was transported home by his . Patient/Family Education Needs: review of discharge instructions, activity, limitations, f/u plan and ask me 3. Services Needed at Discharge: Home Health Care Services (PT) [facility] Health Related Social Needs: No Data to Display
== END 2024-08-05 15:44 | disposition home health service (06) | DRG 303 ==
LOC: ER 07-31 03:38 → ICU 07-31 03:56 → MS 08-01 05:40
PROVIDERS: Family Medicine; Student in an Organized Health Care Education/Training Program; Admitting Provider Family Medicine; Emergency Provider Student in an Organized Health Care Education/Training Program; PCP Family Medicine; Responsible Provider Hospitalist; Visit Provider Hospitalist
DX: I25.110 Atherosclerotic heart disease of native coronary artery with unstable angina pectoris; N17.9 Acute kidney failure, unspecified; N18.32 Chronic kidney disease, stage 3b; E11.42 Type 2 diabetes mellitus with diabetic polyneuropathy; E11.22 Type 2 diabetes mellitus with diabetic chronic kidney disease; I12.9 Hypertensive chronic kidney disease with stage 1 through stage 4 chronic kidney disease, or unspecified chronic kidney disease; K22.4 Dyskinesia of esophagus; Z95.1 Presence of aortocoronary bypass graft; Z95.5 Presence of coronary angioplasty implant and graft; I70.203 Unspecified atherosclerosis of native arteries of extremities, bilateral legs; I45.81 Long QT syndrome; I87.2 Venous insufficiency (chronic) (peripheral); G47.33 Obstructive sleep apnea (adult) (pediatric); K76.0 Fatty (change of) liver, not elsewhere classified; E55.9 Vitamin D deficiency, unspecified; K21.9 Gastro-esophageal reflux disease without esophagitis; D50.9 Iron deficiency anemia, unspecified; E53.8 Deficiency of other specified B group vitamins; E78.5 Hyperlipidemia, unspecified; E03.9 Hypothyroidism, unspecified; M47.894 Other spondylosis, thoracic region; R29.6 Repeated falls; F01.50 Vascular dementia, unspecified severity, without behavioral disturbance, psychotic disturbance, mood disturbance, and anxiety; M47.27 Other spondylosis with radiculopathy, lumbosacral region; Z87.891 Personal history of nicotine dependence; Z79.84 Long term (current) use of oral hypoglycemic drugs; Z79.4 Long term (current) use of insulin; K59.00 Constipation, unspecified
CPT/HCPCS: 00123; 36415; 71275; 78452; 80048; 80053; 82947; 83690; 93005; 96360; 96361; 97110; 97116; 97162; 97530; 99222; 99285; 71046; 74019; 74174; 83735; 83880; 84484; 85025; 85379; 85610; 85730; 93010; 93017; 99232; 99233; 99239; J1815; J2270; J2785; J3475; J3490

== ENCOUNTER → 2024-08-01 08:01 | Outpatient (BNVA) | payer MEDICARE, OTHER, SELFPAY | PROVIDERS: PCP Family Medicine; Referring Provider Family Medicine; Visit Provider Internal Medicine Cardiovascular Disease ==

== ENCOUNTER 2024-08-09 12:41 | Outpatient (CLI) | payer MEDICARE, OTHER, SELFPAY ==
[2024-08-09 14:16] LABS: Anion Gap 11.9 mmol/L (3-11); BUN 26 mg/dL (7-18); CO2 19.1 mmol/L (21.0-32.0); CREATININE 2.4 mg/dL (0.70-1.30); Calcium 8.8 mg/dL (8.5-10.1); Chloride 104 mmol/L (98-107); Estimated GFR 27.62 (mL/min/1.73m2); Glucose 311 mg/dL (74-106); Potassium 4.1 mmol/L (3.5-5.1); Sodium 135 mmol/L (136-145)
== END 2024-08-09 12:42 | disposition home or self-care (01) ==
LOC: LBO 12:45
PROVIDERS: PCP Family Medicine; Visit Provider Nurse Practitioner Acute Care
DX: N17.9 Acute kidney failure, unspecified (principal)
CPT/HCPCS: 36415; 80048

== ENCOUNTER 2024-08-13 16:16 | Inpatient (IN) | payer MEDICARE, OTHER, SELFPAY ==
[2024-08-13] VITALS (60 sets, daily range): BP systolic 150–191; BP diastolic 66–146; PULSE 70–84; RESP 11–26; TEMP 36.4–37.6; O2SAT 93–100
--- NOTE | 2024-08-13 16:15 | RT.EKG_ITS ---
APPROVED REPORT Exam: Resting ECG Reason for Exam: Chest Pain Patient Location: E HR:80 bpm ECG Measurements Heart Rate 80 AXIS OR 141 P 60 QRSd 95 QRS 36 QT 383 T 58 QTc 443 Conclusion Sinus rhythm...normal P axis, V-rate 60- 99 Normal Tracy/Interval Nonspecific ST-T changes/falttening There are no significant changes compared to prior EKG performed on 08/03/2024 at 08:51.
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
[2024-08-13 16:48] LABS: HCT 39.4 % (40.0-50.0); HGB 13.3 g/dL (13.5-17.5); MCH 30.2 pg (27.0-33.0); MCHC 33.8 % (32.0-36.0); MCV 90 fL (80-95); MPV 8.9 fL (8.0-11.0); Platelet Count 204 10^3/uL (130-400); RDW 13.7 % (11.8-14.1); RDW-SD 44.8 fL; WBC 7.63 10^3/uL (4.4-10.8)
[2024-08-13] MEDS: ACETAMINOPHEN 1,000 MG/100 ML BAG 400 MG IVPB (16:49)
[2024-08-13 17:18] LABS: Anion Gap 11.2 mmol/L (3-11); BUN 27 mg/dL (7-18); CO2 21.8 mmol/L (21.0-32.0); CREATININE 2.4 mg/dL (0.70-1.30); Calcium 9.1 mg/dL (8.5-10.1); Chloride 103 mmol/L (98-107); Estimated GFR 27.62 (mL/min/1.73m2); Glucose 254 mg/dL (74-106); Magnesium 2.4 mg/dL (1.8-2.4); Potassium 4.1 mmol/L (3.5-5.1); Sodium 136 mmol/L (136-145)
[2024-08-13 17:20] LABS: Troponin I 7 ng/L (<or=76)
[2024-08-13 18:15] LABS: Troponin I 8 ng/L (<or=76)
[2024-08-13] MEDS: nitroGLYcerin 2% 1 INCH/1 GM PKT TP (18:20)
--- NOTE | 2024-08-13 18:42 | NUR.NOTE ---
pt bp is 178/92 MD aware no new orders, PT states his pain is improving with Nitro paste Nursing Note:
[2024-08-13 19:43] LABS: Troponin I 8 ng/L (<or=76)
[2024-08-13] MEDS: Aspirin 81 MG CHEW 162 MG CH (20:46)
[2024-08-13] MEDS: MORPHine 4 MG/ML SYR IVP (20:46)
--- NOTE | 2024-08-13 21:48 | W.PC.ACHO ---
Registration Status: Primary Language: Preferred Language: ED Information & Data Chief Complaint Chest Pain 08/13/24 16:27 Chief Complaint Chest Pain 08/13/24 16:21 Triage Note cp wednesday had b2 nitro, went 08/13/24 16:21 away, sat had cp had 2 nitros again went away. started having cp today at 1240, nitro given x 3 but5 is getting worse Medical / Surgical History (Last Reviewed 08/13/24 @ 16:56 by Tim Oleary MD) Partial tear of left rotator cuff Atypical chest pain Sensory hearing loss, bilateral (04/09/14) Hypertrophy of nasal turbinates (08/05/15) Deviated nasal septum (08/05/15) Trochanteric bursitis, right hip Tendinitis involving hip abductors Acute serous otitis media of left ear Lumbar contusion Blunt head trauma BABS (acute kidney injury) Lipoma of lower extremity Alcohol abuse Tinea pedis History of subdural hematoma Hip joint pain Callus of foot Pain, joint, shoulder region, left Ataxia Left cervical radiculopathy Cecal volvulus Viral URI with cough UTI (urinary tract infection) Rhinorrhea Knee pain, right Rathke's pouch cyst Hx of traumatic brain injury Migraine headache Recurrent UTI Constipation, chronic Pain in joint of right foot Left rib fracture Contusion of right hip Head trauma Right sided weakness Urethral stricture (08/20/15) Postnasal drip (05/13/15) H/O alcohol abuse MRSA infection Depression Colon polyps Urethral stricture Chronic low back pain Diastasis recti Headaches due to 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 Hx of deep venous thrombosis (Last Reviewed 08/13/24 @ 16:56 by Tim Oleary MD) History of cardiac cath History of colonoscopy with polypectomy (~09/24/22) facial lesion removal electroconvulsive therapy Repair of umbilical hernia Repair of inguinal hernia (08/05/17) Colonoscopy - MAC Extraction of cataract Coronary Artery Bypass Gaft (CABG) Appendectomy (06/01/16) Most Recent Vital Signs Temperature 37.6 C H 08/13/24 18:46 Temperature Source Oral 08/13/24 16:21 Pulse 73 08/13/24 21:20 Pulse 80 08/13/24 21:20 Respiratory Rate 21 08/13/24 21:20 Respiratory Effort Normal 08/13/24 16:37 Blood Pressure 185/92 H 08/13/24 20:45 Blood Pressure Mean 126 08/13/24 20:45 Blood Pressure Position Supine 08/13/24 16:21 Pulse Oximetry 99 08/13/24 21:20 Oxygen Delivery Method Nasal Cannula 08/13/24 18:50 Oxygen Flow Rate 1 08/13/24 18:50 Pain Level 8 08/13/24 20:46 Allergies amoxicillin Allergy (Severe, Verified 08/13/24 16:51) breathing difficuty and vomiting Penicillins Allergy (Intermediate, Verified 08/13/24 16:51) Skin Rash sulfamethoxazole (From Bactrim) Allergy (Intermediate, Verified 08/13/24 16:51) Skin Rash trimethoprim (From Bactrim) Allergy (Intermediate, Verified 08/13/24 16:51) Skin Rash oxycodone HCl (From Percocet) Adverse Reaction (Severe, Verified 08/13/24 16:51) Contraindicated stares into space oxycodone terephthalate (From Percodan) Adverse Reaction (Severe, Verified 08/13/24 16:51) Contraindicated stares into space atorvastatin Adverse Reaction (Intermediate, Verified 08/13/24 16:51) Other (See Comment) Weakness/falls rosuvastatin (From Crestor) Adverse Reaction (Intermediate, Verified 08/13/24 16:51) Other (See Comment) Weakness/falls IV IV Catheter Type [Left Forearm Peripheral IV ] IV Catheter Gauge [Left 18 Forearm] Diagnostics 08/13/24 08/13/24 08/13/24 Range/Units 19:20 17:54 16:36 WBC 7.63 (4.4-10.8) 10^3/uL RBC 4.40 (4.36-5.78) 10^6/uL Hgb 13.3 L (13.5-17.5) g/dL Hct 39.4 L (40.0-50.0) % MCV 90 (80-95) fL MCH 30.2 (27.0-33.0) pg MCHC 33.8 (32.0-36.0) % RDW 13.7 (11.8-14.1) % Plt Count 204 (130-400) 10^3/uL MPV 8.9 (8.0-11.0) fL Sodium 136 (136-145) mmol/L Potassium 4.1 (3.5-5.1) mmol/L Chloride 103 (98-107) mmol/L Carbon Dioxide 21.8 (21.0-32.0) mmol/L Anion Gap 11.2 H (3-11) mmol/L BUN 27 H (7-18) mg/dL Creatinine 2.4 H (0.70-1.30) mg/dL Est GFR (CKD-EPI 2020) 27.62 (mL/min/1.73m2) Glucose 254 H (74-106) mg/dL Calcium 9.1 (8.5-10.1) mg/dL Magnesium 2.4 (1.8-2.4) mg/dL Troponin I 8 8 7 (<or=76) ng/L Intake and Output - 24 Hour Total 08/13/24 16:16 thru 08/13/24 21:04 Intake Total 340 Output Total 1200 Balance -860 Weight 91.626 kg Intake: IV 100 Oral 240 Output: Urine 1200 Other: # Voids 2 Falls Risk Assessment History of Falls Previous History 08/13/24 16:37 Ambulatory Aids Uses ambulatory device 08/13/24 16:37 Tubes/Lines None 08/13/24 16:37 Fall Total Score 30 08/13/24 16:37 Level of Risk Moderate Risk 08/13/24 16:37 Problems (Last Reviewed 08/13/24 @ 16:56 by Tim Oleary MD) Chest pain (Acute) Coronary artery disease (Chronic) Notes 08/13/24 18:42 Nursing Notes by Debbie Johnson pt bp is 178/92 MD aware no new orders, PT states his pain is improving with Nitro paste Nursing Note: Initialized on 08/13/24 18:42 - END OF NOTE v v v v v v v v v Sending and/or Receiving Nurses: Please use comment section below to note any information pertinent to the patient hand-off not included above. Information / Comments: Report received from: Howie in ER. All questions asked, answered. Patient to go to 230.
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
[2024-08-13] MEDS: Ranolazine 500 MG TABCR PO (23:49)
[2024-08-13] MEDS: Acetylcysteine 600 MG CAP PO (23:49)
[2024-08-13] MEDS: Pantoprazole 40 MG TABCR PO (23:49)
[2024-08-13] MEDS: Normal Saline Flush 10 ML SYR IVP (23:50)
--- NOTE | 2024-08-14 00:45 | RT.EKG_ITS ---
APPROVED REPORT Exam: Resting ECG Reason for Exam: atypical chest pain, irregular HR per telemetry Patient Location: I HR:77 bpm ECG Measurements Heart Rate 77 AXIS MT 139 P 43 QRSd 97 QRS 23 QT 427 T 42 QTc 484 Conclusion Sinus rhythm...normal P axis, V-rate 50- 99 Abnormal R-wave progression, early transition...QRS area>0 in V2 Borderline prolonged QT interval...QTc >475mS Baseline wander in lead(s) V4
[2024-08-14] MEDS: QUEtiapine 100 MG TAB 200 MG PO ×2 (00:49→22:25)
[2024-08-14 05:02] VITALS: BP 118/69; PULSE 91; RESP 18; TEMP 36.5; O2SAT 98
[2024-08-14 06:37] LABS: Abs Immature Grans 0.04 10^3/uL (0.0-0.06); Absolute Basophil Count 0.11 10^3/uL (0.0-0.2); Absolute Eosinophil Count 0.29 10^3/uL (0.0-0.7); Absolute Lymphocyte Count 1.45 10^3/uL (1.2-3.4); Absolute Monocyte Count 0.64 10^3/uL (0.1-0.8); Absolute Neutrophil Count 5.12 10^3/uL (1.2-6.7); Basophils % 1.4 %; Eosinophils % 3.8 %; HCT 36.6 % (40.0-50.0); HGB 12.3 g/dL (13.5-17.5); Immature Grans % 0.5 %; MCH 29.6 pg (27.0-33.0); MCHC 33.6 % (32.0-36.0); MCV 88 fL (80-95); Monocytes % 8.4 %; Neutrophils % 66.9 %; Platelet Count 188 10^3/uL (130-400); RBC 4.16 10^6/uL (4.36-5.78); RDW 13.5 % (11.8-14.1); RDW-SD 43.5 fL; WBC 7.65 10^3/uL (4.4-10.8)
[2024-08-14 06:57] LABS: Anion Gap 10.6 mmol/L (3-11); BUN 27 mg/dL (7-18); CO2 21.4 mmol/L (21.0-32.0); CREATININE 2.4 mg/dL (0.70-1.30); Calcium 8.6 mg/dL (8.5-10.1); Chloride 105 mmol/L (98-107); Estimated GFR 27.62 (mL/min/1.73m2); Glucose 139 mg/dL (74-106); Potassium 3.9 mmol/L (3.5-5.1); Sodium 137 mmol/L (136-145); Troponin I 15 ng/L (<or=76)
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
[2024-08-14] MEDS: Finasteride 5 MG TAB PO (10:17)
[2024-08-14] MEDS: amLODIPine 2.5 MG TAB PO (10:18)
[2024-08-14] MEDS: Citalopram 20 MG TAB PO (10:18)
[2024-08-14] MEDS: Acetylcysteine 600 MG CAP PO ×2 (10:18→20:40)
[2024-08-14] MEDS: Lisinopril 10 MG TAB 30 MG PO (10:19)
[2024-08-14] MEDS: dilTIAZem CD 120 MG CAPCR PO (10:19)
[2024-08-14] MEDS: Multivitamin TAB 1 TAB PO (10:20)
[2024-08-14] MEDS: Empaglifozin 10 MG TAB PO (10:20)
[2024-08-14] MEDS: Metoprolol CR 100 MG TABCR PO (10:20)
[2024-08-14] MEDS: Pregabalin 100 MG CAP PO (10:21)
[2024-08-14] MEDS: Ranolazine 500 MG TABCR PO ×2 (10:21→20:39)
[2024-08-14] MEDS: Isosorbide Mononitrate 60 MG TABCR PO ×2 (10:21→20:40)
[2024-08-14] MEDS: Allopurinol 300 MG TAB PO (10:22)
[2024-08-14] MEDS: Mirabegron 25 MG TABCR PO (10:22)
[2024-08-14 11:32] VITALS: BP 117/73; PULSE 82; RESP 12; O2SAT 95
[2024-08-14] MEDS: Acetaminophen 500 MG TAB 1000 MG PO ×2 (11:35→18:18)
[2024-08-14] MEDS: nitroGLYcerin 0.4 MG TAB SL ×2 (11:37→18:22)
[2024-08-14] MEDS: Normal Saline Flush 10 ML SYR IVP ×2 (12:37→20:44)
[2024-08-14] MEDS: Insulin Aspart 300 UNITS/3 ML PEN SC ×2 (12:37→17:09)
[2024-08-14 14:24] VITALS: BP 97/67; PULSE 73; RESP 15; O2SAT 97
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
[2024-08-14 15:42] VITALS: BP 120/80; PULSE 70; RESP 14; TEMP 36.9; O2SAT 98
[2024-08-14 19:53] VITALS: BP 138/76; PULSE 70; RESP 19; TEMP 36.1; O2SAT 100
[2024-08-14] MEDS: Polyethylene Glycol 3350 17 GM PACKET PO (20:39)
[2024-08-14] MEDS: Insulin Glargine 300 UNITS/3 ML PEN 51 UNITS SC (20:40)
[2024-08-14] MEDS: Topiramate 50 MG TAB PO (20:40)
[2024-08-14] MEDS: Pantoprazole 40 MG TABCR PO (20:40)
--- NOTE | 2024-08-14 20:52 | W.PM.PROGNOT ---
Date of Service Date of service: 08/14/24 Time of Service: 14:00 Assessment and Plan Assessment and plan (1) Chest pain: Status: Acute Assessment and plan: Same as past angina with ACS (s/p CABG). Mostly responsive to nitroglycerin. Also reproducible with anterior chest palpation, and persistent in nature. Pt with extensive cardiac disease. Last cath 2020. Recent negative sestamibi stress test, but results not as reliable status post CABG. Flat troponins. No acute EKG changes. Negative chest x-ray. [facility] cardiology consult excepted patient in transfer for likely repeat cardiac cath, but no beds available Continue to wait for a bed. (2) Nutcracker esophagus: Status: Acute Assessment and plan: Complicates chest pain picture. (3) Type 2 diabetes mellitus with peripheral neuropathy: Status: Chronic Assessment and plan: Continue present home regimen Continue ssi and achs fs (4) Chronic kidney disease (CKD) stage G3b/A1, moderately decreased glomerular filtration rate (GFR) between 30-44 mL/min/1.73 square meter and albuminuria creatinine ratio less than 30 mg/g: Status: Chronic Assessment and plan: Complicates care, and dye risk. (5) Traumatic brain injury: Status: Acute Assessment and plan: Fairly mild. Complicates care. (6) Coronary artery disease: Status: Chronic Assessment and plan: See Chest Pain above. (7) Chronic subdural hematoma: Status: Chronic Assessment and plan: H/o spontaneous subdural. Complicates care- contraindication for Heparin and generally anti-platelet therapy. (8) MRSA infection: Assessment and plan: H/o MRSA infection. Subjective Subjective Patient reports: no new complaints, tolerating liquids well, tolerating a regular diet, voiding w/o difficulty, bowel movement and afebrile; denies flatus, diarrhea, nausea, vomiting or shortness of breath Interval history since last seen: Awake and alert, did report 4/10 chest pain, reproduceable. Exam Narrative Exam Narrative: General: Elderly male of stated age, no acute distress. Head: Atraumatic. Eyes: Non-icteric, non-injected. Oral Mucosa: Moist. Neck: Supple, full range of motion, no jugular venous distention . Respiratory: Even and unlabored respirations, lungs clear bilaterally Cardiovascular: Regular rate and rhythm. Abdomen: Benign. Extremities: No edema, moves all extremities. Neurologic: Awake, alert, oriented, no focal deficits. Psychiatric: Appropriate mood and affect. Skin: No rashes or lesions. Objective Last Vital Signs Temp 36.1 C L 08/14/24 19:53 Pulse 70 08/14/24 19:53 Resp 19 08/14/24 19:53 BP 138/76 08/14/24 19:53 Pulse Ox 100 08/14/24 19:53 Laboratory Results - last 24 hr 08/14/24 06:08 WBC 7.65 RBC 4.16 L Hgb 12.3 L Hct 36.6 L MCV 88 MCH 29.6 MCHC 33.6 RDW 13.5 Plt Count 188 MPV 9.0 Immature Gran % 0.5 Neutrophils % 66.9 Lymphocytes % 19.0 Monocytes % 8.4 Eosinophils % 3.8 Basophils % 1.4 Nucleated RBC % 0.0 Absolute Neutrophils 5.12 Absolute Lymphocytes 1.45 Absolute Monocytes 0.64 Absolute Eosinophils 0.29 Absolute Basophils 0.11 Sodium 137 Potassium 3.9 Chloride 105 Carbon Dioxide 21.4 Anion Gap 10.6 BUN 27 H Creatinine 2.4 H Est GFR (CKD-EPI 2020) 27.62 Glucose 139 H Calcium 8.6 Troponin I 15 Time Spent with Patient Time Spent with Patient: 25-34 minutes Time was spent: preparing to see the patient(eg.review tests), ordering medications,tests, procedures, referring, communicating with other health hospice patient care secretary, indepentently interpreting results, counseling the patient and care coordination
[2024-08-14 22:45] LABS: MRSA PCR Negative (Negative)
[2024-08-14 23:32] VITALS: BP 161/82; PULSE 81; RESP 16; TEMP 36.2; O2SAT 97
[2024-08-15] VITALS (7 sets, daily range): BP systolic 89–119; BP diastolic 51–68; PULSE 70–85; RESP 14–20; TEMP 35.9–36.9; O2SAT 90–97
[2024-08-15] MEDS: Levothyroxine 50 MCG TAB PO (05:48)
[2024-08-15 07:04] LABS: Abs Immature Grans 0.04 10^3/uL (0.0-0.06); Absolute Basophil Count 0.09 10^3/uL (0.0-0.2); Absolute Eosinophil Count 0.29 10^3/uL (0.0-0.7); Absolute Lymphocyte Count 1.28 10^3/uL (1.2-3.4); Absolute Monocyte Count 0.64 10^3/uL (0.1-0.8); Absolute Neutrophil Count 4.98 10^3/uL (1.2-6.7); Basophils % 1.2 %; HGB 12.8 g/dL (13.5-17.5); Immature Grans % 0.5 %; Lymphocytes % 17.5 %; MCH 29.9 pg (27.0-33.0); MCHC 33.7 % (32.0-36.0); MCV 89 fL (80-95); MPV 9.5 fL (8.0-11.0); Monocytes % 8.7 %; Neutrophils % 68.1 %; Platelet Count 193 10^3/uL (130-400); RBC 4.28 10^6/uL (4.36-5.78); RDW 13.7 % (11.8-14.1); RDW-SD 44.5 fL; WBC 7.32 10^3/uL (4.4-10.8)
[2024-08-15 07:24] LABS: Anion Gap 13.1 mmol/L (3-11); BUN 33 mg/dL (7-18); CO2 20.9 mmol/L (21.0-32.0); CREATININE 2.5 mg/dL (0.70-1.30); Chloride 103 mmol/L (98-107); Glucose 238 mg/dL (74-106); Magnesium 2.4 mg/dL (1.8-2.4); Potassium 4.5 mmol/L (3.5-5.1); Sodium 137 mmol/L (136-145)
[2024-08-15] MEDS: Ranolazine 500 MG TABCR PO ×2 (08:30→19:59)
[2024-08-15] MEDS: Empaglifozin 10 MG TAB PO (08:31)
[2024-08-15] MEDS: dilTIAZem CD 120 MG CAPCR PO (08:31)
[2024-08-15] MEDS: Citalopram 20 MG TAB PO (08:31)
[2024-08-15] MEDS: Pregabalin 100 MG CAP PO (08:31)
[2024-08-15] MEDS: Isosorbide Mononitrate 60 MG TABCR PO ×2 (08:31→19:59)
[2024-08-15] MEDS: Acetylcysteine 600 MG CAP PO ×2 (08:31→19:59)
[2024-08-15] MEDS: Metoprolol CR 100 MG TABCR PO (08:31)
[2024-08-15] MEDS: Finasteride 5 MG TAB PO (08:31)
[2024-08-15] MEDS: Lisinopril 10 MG TAB 30 MG PO (08:31)
[2024-08-15] MEDS: Mirabegron 25 MG TABCR PO (08:31)
[2024-08-15] MEDS: Insulin Aspart 300 UNITS/3 ML PEN SC ×3 (08:32→17:46)
[2024-08-15] MEDS: Multivitamin TAB 1 TAB PO (08:32)
[2024-08-15] MEDS: Allopurinol 300 MG TAB PO (08:32)
[2024-08-15] MEDS: Acetaminophen 500 MG TAB 1000 MG PO ×2 (08:32→15:19)
[2024-08-15] MEDS: amLODIPine 2.5 MG TAB PO (08:32)
[2024-08-15] MEDS: Normal Saline Flush 10 ML SYR IVP ×3 (08:33→20:00)
[2024-08-15] MEDS: Polyethylene Glycol 3350 17 GM PACKET PO (08:51)
[2024-08-15] MEDS: nitroGLYcerin 0.4 MG TAB SL ×2 (11:37→15:19)
--- NOTE | 2024-08-15 13:41 | PT.INTREAT ---
PT Notes Visit Reasons: Chest Pain Physical Therapy Inpatient Treatment Note Date: 08/15/2024 Precautions: Fall. Standard. Activity as tolerated. Subjective: Complained of minimal chest pain that subsided with seated rest in the morning. In the afternoon, reported that his R great toe hurt like the [place]. Needed to sit down due to report of chest pain. Patient was assisted back to bed, HOB elevated and felt better. Objective: General Observation: Patient sitting on chair. Son Andrew present in room. Mental Status: Alert and oriented as to person, place, time, and purpose. Able to pay attention, focus, and respond appropriately. Pain: Mild activity-induced chest pain that subsided with rest Vital Signs: BP 106/52, SaO2 90% on RA, HR 80 bpm Bed Mobility/Transfers: Moderate cueing provided for use of B hands as needed for support, movement sequence, AD management, and posture to reduce fall risk and minimize pain report Supine to sit stand by assist with HOB at 30 degrees Sit to stand stand by assist Stand to sit stand by assist Gait: Instructed patient with level surface ambulation of 150 feet + 150 feet in the morning and 200 feet + 100 feet in the afternoon requiring contact guard assist and wheelchair follow. Seated rests needed due to fatigue and to report of mild chest pain. Gisselle decreased. Mild buckling in R knee with directional change but no LOB. Step height decreased. Step length decreased. Stairs: In the afternoon negotiated 6 x 4-inch steps and and 4 x 2 -inch steps while holding onto B rails for support, stand by assist and minimal verbal cueing provided for safe technique, hand placement, and self-pacing. [id number] gait pattern. Balance: Static Sitting: Normal Dynamic Sitting: Normal Static Standing: Fair Dynamic Standing: Fair ASSESSMENT: Reported chest pain at end of afternoon walk which subsided with seated rest -- felt much better when patient was assisted back onto bed at end of session. Nurse aware of continued chest pain report, currently being managed. New report of R great toe pain that Nurse Ron was made aware at start of session. Plan of Care/Treatment Plan: Patient will highly benefit from skilled physical therapy services including functional mobility training, bed mobility/transfer training, gait and balance training, therapeutic exercises, therapeutic activity, caregiver/staff/family education and training 1x/day, 7 days/week x 1 week. Plan of care has been reviewed with the CARTRIDGE ASSEMBLING MACHINE ADJUSTER providing the service under Physical Therapy direction. Initiate Physical Therapy intervention for strengthening, bed mobility, transfers, gait, stairs, balance training, use of assistive device. DISCHARGE RECOMMENDATIONS: [] Home with no services [] [X] Home with services. Patient will benefit from home health PT services in order to progress mobility level using least restrictive assistive ambulatory device, assess home safety, identify additional equipment needs, and establish a functional maintenance program that will increase ability of patient to remain at home. [] Home with outpatient PT [] [] SNF for continued rehabilitation [] [] [facility] Care [] [] SNF versus LTC based on ability to participate and progress [] TREATMENT CODE/TIME: Session 1 -- 93457 x 38 minutes for 3 units (09:37-10:25). Session 2-- 31537 x 40 minutes for 3 units (13:10-13:40).
[2024-08-15] MEDS: Cyclobenzaprine 10 MG TAB 5 MG PO (15:38)
--- NOTE | 2024-08-15 16:36 | PGE_ITS ---
Date of Service Date of service: 08/15/24 Time of Service: 16:36 Assessment and Plan Assessment and plan (1) Chest pain: Status: Acute Assessment and plan: Same as past angina with ACS (s/p CABG). Mostly responsive to nitroglycerin. Also reproducible with anterior chest palpation, and persistent in nature. Pt with extensive cardiac disease. Last cath 2020. Recent negative sestamibi stress test, but results not as reliable status post CABG. Flat troponins. No acute EKG changes. Negative chest x-ray. [facility] [place] cardi[place] did not accept patient. Patient to follow up outpt cardiology. Reproducible ketorolac Lido patch Heat PT Cards consult pending (2) Nutcracker esophagus: Status: Acute Assessment and plan: Complicates chest pain picture. (3) Type 2 diabetes mellitus with peripheral neuropathy: Status: Chronic Assessment and plan: Continue present home regimen Continue ssi and achs fs (4) Chronic kidney disease (CKD) stage G3b/A1, moderately decreased glomerular filtration rate (GFR) between 30-44 mL/min/1.73 square meter and albuminuria creatinine ratio less than 30 mg/g: Status: Chronic Assessment and plan: Complicates care, and dye risk. (5) Traumatic brain injury: Status: Acute Assessment and plan: Fairly mild. Complicates care. (6) Coronary artery disease: Status: Chronic Assessment and plan: See Chest Pain above. (7) Chronic subdural hematoma: Status: Chronic Assessment and plan: H/o spontaneous subdural. Complicates care- contraindication for Heparin and generally anti-platelet therapy. (8) MRSA infection: Assessment and plan: H/o MRSA infection. Subjective Subjective Patient reports: no new complaints, tolerating liquids well, tolerating a regular diet, voiding w/o difficulty, bowel movement and afebrile; denies di arrhea, nausea, vomiting or shortness of breath Interval history since last seen: Continues to complain of left shoulder pain, reproducible. Exam Narrative Exam Narrative: * General: Elderly male of stated age, no acute distress. * Head: Atraumatic. * Eyes: Non-icteric, non-injected. * Oral Mucosa: Moist. * Neck: Supple, full range of motion, no jugular venous distention . * Respiratory: Even and unlabored respirations, lungs clear bilaterally * Cardiovascular: Regular rate and rhythm. Pain with palpation to left chest, left shoulder area. * Abdomen: Benign. * Extremities: No edema, moves all extremities. * Neurologic: Awake, alert, oriented, no focal deficits. * Psychiatric: Appropriate mood and affect. * Skin: No rashes or lesions. Objective Last Vital Signs Temp 36.9 C 08/15/24 15:17 Pulse 82 08/15/24 15:17 Resp 20 08/15/24 15:17 BP 111/67 08/15/24 15:17 Pulse Ox 97 08/15/24 15:17 Laboratory Results - last 24 hr 08/14/24 08/15/24 21:25 06:14 WBC 7.32 RBC 4.28 L Hgb 12.8 L Hct 38.0 L MCV 89 MCH 29.9 MCHC 33.7 RDW 13.7 Plt Count 193 MPV 9.5 Immature Gran % 0.5 Neutrophils % 68.1 Lymphocytes % 17.5 Monocytes % 8.7 Eosinophils % 4.0 Basophils % 1.2 Nucleated RBC % 0.0 Absolute Neutrophils 4.98 Absolute Lymphocytes 1.28 Absolute Monocytes 0.64 Absolute Eosinophils 0.29 Absolute Basophils 0.09 Sodium 137 Potassium 4.5 Chloride 103 Carbon Dioxide 20.9 L Anion Gap 13.1 H BUN 33 H Creatinine 2.5 H Est GFR (CKD-EPI 2020) 26.30 Glucose 238 H Calcium 9.0 Magnesium 2.4 MRSA (TEM-PCR) Negative Time Spent with Patient Time Spent with Patient: 35-49 minutes Time was spent: preparing to see the patient(eg.review tests), ordering medications,tests, procedures, referring, communicating with other health home care associate, indepentently interpreting results, counseling the patient and care coordination
--- NOTE | 2024-08-15 17:02 | CMPROGNOTE_ITS ---
Date of service: 08/15/24 Time of Service: 17:02 Care Management Progress Note Progress Note Text Progress Note Text: Fredo has been accepted to [facility], bed availability is still pending. No new updates at this time per CC RN. CM will follow and await update from RN Powerplant Operator. Discharge Anticipated Barriers to Discharge: Other (Bed Availability. ) Patient/Family Education Needs: Review discharge instructions, discuss Ask Me Three Transportation: EMS Plan: Fredo has been accepted for transfer to [facility]. He will transport via EMS coordinated by the nursing supervisor word processing and follow up with their providers and plan of care. CM will follow Social Determinants of Health Screening Social Determinants of Health last assessed: 08/15/24 Will the Patient Participate in the Screening?: Yes Do you worry about having a steady place to live?: no Problems where you live: no known problems In the past 12 months, have you had to go without electric, gas, oil or water in your home?: no Have you or anyone in your house had to go without enough food to eat?: no Has lack of transportation kept you from medical appointments or from doing things needed for daily living?: no Has anyone in your life made you feel unsafe or unsupported?: no How hard is it for you to pay for the very basics like food, housing, medical care, and heating? Would you say it is:: Not hard at all Do you want help finding or keeping work or a job?: I do not need or want help If for any reason you need help with day-to-day activities such as bathing, preparing meals, shopping, managing finances, etc., do you get the help you need?: I get all the help I need How often do you feel lonely or isolated from those around you?: Never Do you speak a language other than [place] Islander at home?: No Does the patient want assistance with any of the above?: No
[2024-08-15] MEDS: Lidocaine 5% Patch 1 PATCH TP (17:47)
[2024-08-15] MEDS: Milk of Magnesia 30 ML CUP PO (19:58)
[2024-08-15] MEDS: Topiramate 50 MG TAB PO (19:59)
[2024-08-15] MEDS: Pantoprazole 40 MG TABCR PO (19:59)
[2024-08-15] MEDS: Docusate Sodium 100 MG CAP PO (19:59)
[2024-08-15] MEDS: Insulin Glargine 300 UNITS/3 ML PEN 51 UNITS SC (20:00)
[2024-08-15] MEDS: QUEtiapine 100 MG TAB 200 MG PO (22:12)
[2024-08-16] VITALS (7 sets, daily range): BP systolic 95–122; BP diastolic 55–66; PULSE 72–89; RESP 15–20; TEMP 36.1–36.7; O2SAT 94–98
--- NOTE | 2024-08-16 | DI.CT_ITS ---
Exam(s) CT RENAL COLIC WO EXAM: CT RENAL COLIC WO CLINICAL HISTORY: Increasing creatinine; BABS on CKD. TECHNIQUE: Imaging Protocol: Axial computed tomography images with coronal and sagittal reformatted images were created and reviewed. Oral: no COMPARISON: CT CT THORAX ABD/PEL CTA from 07/30/2024 CR XR ABDOMEN FLAT UPRIGHT from 08/04/2024 FINDINGS: Lung Bases: No acute findings. Liver: Normal density. No suspicious mass. Gallbladder and biliary tract: Small small calcification in the anterior gallbladder wall. No bilia ry dilation. Pancreas: Normal density. No abnormal calcifications or inflammatory process. Spleen: Normal. Kidneys: Normal size, contour and axis. No radiodense stones. No obstructive uropathy. Small cyst l ower pole right kidney. No suspicious masses seen. Adrenal glands: No masses seen. Lymph nodes: Within normal limits. Vasculature: Abdominal aorta non-dilated. Soft tissues: Unremarkable. Bladder: No wall thickening. No mass or calculi. Bowel: No obstruction or bowel wall thickening. Moderate quantity of stool. Cecum is air-filled. A ppendectomy. Peritoneal cavity: No ascites. No focal collection. No mesenteric inflammatory response. Reproductive organs: Unremarkable. Bones: Unremarkable for age. IMPRESSION: No acute abnormality in the abdomen or pelvis.No evidence hydronephrosis or urinary tract calculi. RADIATION DOSE DELIVERED: 961.76mGy.cm Total DLP 961.76mGy.cm Total DLP DATA REPOSITORY: All CT scans at this facility are submitted to the National Radiology Data Registry (NRDR) Dose Index Registry (DIR) with the [employer] (ACR). RADIATION OPTIMIZATION: All CT scans at this facility use at least one of these dose optimization te chniques: automated exposure control; mA and/or kV adjustment per patient size (includes targeted exa ms where dose is matched to clinical indication); or iterative reconstruction.
[2024-08-16] MEDS: Levothyroxine 50 MCG TAB PO (05:45)
[2024-08-16] MEDS: Lidocaine Patch Removal 1 EACH TP (05:47)
[2024-08-16 07:02] LABS: Abs Immature Grans 0.05 10^3/uL (0.0-0.06); Absolute Lymphocyte Count 1.34 10^3/uL (1.2-3.4); Absolute Monocyte Count 0.89 10^3/uL (0.1-0.8); Absolute Neutrophil Count 5.88 10^3/uL (1.2-6.7); Basophils % 1.2 %; Eosinophils % 3.5 %; HCT 35.6 % (40.0-50.0); HGB 12.1 g/dL (13.5-17.5); Immature Grans % 0.6 %; Lymphocytes % 15.7 %; MCH 30.3 pg (27.0-33.0); MCV 89 fL (80-95); MPV 9.4 fL (8.0-11.0); Monocytes % 10.4 %; Neutrophils % 68.6 %; Platelet Count 186 10^3/uL (130-400); RDW-SD 45.3 fL; WBC 8.56 10^3/uL (4.4-10.8)
[2024-08-16 07:22] LABS: Anion Gap 14.2 mmol/L (3-11); BUN 45 mg/dL (7-18); CO2 18.8 mmol/L (21.0-32.0); CREATININE 3.5 mg/dL (0.70-1.30); Calcium 8.5 mg/dL (8.5-10.1); Chloride 102 mmol/L (98-107); Estimated GFR 17.56 (mL/min/1.73m2); Glucose 247 mg/dL (74-106); Magnesium 2.8 mg/dL (1.8-2.4); Potassium 4.4 mmol/L (3.5-5.1); Sodium 135 mmol/L (136-145)
[2024-08-16] MEDS: Insulin Aspart 300 UNITS/3 ML PEN SC ×3 (08:31→17:21)
--- NOTE | 2024-08-16 08:57 | PT.INTREAT ---
PT Notes Visit Reasons: Chest Pain Physical Therapy Inpatient Treatment Note Date: 08/16/2024 Precautions: Fall. Standard. Activity as tolerated. Subjective: Short-lived mild chest pain at end of session. Wondering when a bed is going to be available at [facility]. Objective: General Observation: Patient resting in bed. Mental Status: Alert and oriented as to person, place, time, and purpose. Able to pay attention, focus, and respond appropriately. Pain: Mild activity-induced chest pain that subsided with rest Vital Signs: BP 78/57, SaO2 99% on RA, HR 97 bpm before start of session 97/57 mmHg after session Bed Mobility/Transfers: Moderate cueing provided for use of B hands as needed for support, movement sequence, AD management, and posture to reduce fall risk and minimize pain report Supine to sit stand by assist with HOB at 30 degrees Sit to stand stand by assist Stand to sit stand by assist Gait: Instructed patient with level surface ambulation of 150 feet + 150 feet in the morning and 150 feet + 150 feet in the afternoon requiring contact guard assist and wheelchair follow. Seated rests needed due to fatigue and to report of mild chest pain. Gisselle decreased. Mild buckling in R knee with directional change but no LOB. Step height decreased. Step length decreased. Stairs: Negotiated 6 x 4-inch steps and and 4 x 2 -inch steps while holding onto B rails for support, stand by assist and minimal verbal cueing provided for safe technique, hand placement, and self-pacing. [id number] gait pattern. Balance: Static Sitting: Normal Dynamic Sitting: Normal Static Standing: Fair Dynamic Standing: Fair ASSESSMENT: Blood pressure was initially soft but went up to 97/57 mmHg at end of session after first half of walk and stairs. Nurse Ron took a manual BP and came out with 108/56 mmHg. Patient with extensive cardiac history and is awaiting cardiac catheterization at [facility]. Continue with graduated mobility progression while closely monitoring vital signs. Plan of Care/Treatment Plan: Patient will highly benefit from skilled physical therapy services including functional mobility training, bed mobility/transfer training, gait and balance training, therapeutic exercises, therapeutic activity, caregiver/staff/family education and training 1x/day, 7 days/week x 1 week. Plan of care has been reviewed with the AUTOMATIC PINSETTER MECHANIC providing the service under Physical Therapy direction. Initiate Physical Therapy intervention for strengthening, bed mobility, transfers, gait, stairs, balance training, use of assistive device. DISCHARGE RECOMMENDATIONS: [] Home with no services [] [X] Home with services. Patient will benefit from home health PT services in order to progress mobility level using least restrictive assistive ambulatory device, assess home safety, identify additional equipment needs, and establish a functional maintenance program that will increase ability of patient to remain at home. [] Home with outpatient PT [] [] SNF for continued rehabilitation [] [] Alf Care [] [] SNF versus LTC based on ability to participate and progress [] TREATMENT CODE/TIME: 14687 x 39 minutes for 3 units (08:57-09:36).
[2024-08-16] MEDS: Citalopram 20 MG TAB PO (09:11)
[2024-08-16] MEDS: Acetylcysteine 600 MG CAP PO ×2 (09:11→19:57)
[2024-08-16] MEDS: Pregabalin 100 MG CAP PO (09:11)
[2024-08-16] MEDS: dilTIAZem CD 120 MG CAPCR PO (09:11)
[2024-08-16] MEDS: Empaglifozin 10 MG TAB PO (09:11)
[2024-08-16] MEDS: Normal Saline Flush 10 ML SYR IVP ×2 (09:11→12:35)
[2024-08-16] MEDS: Mirabegron 25 MG TABCR PO (09:11)
[2024-08-16] MEDS: Ranolazine 500 MG TABCR PO (09:11)
[2024-08-16] MEDS: Multivitamin TAB 1 TAB PO (09:11)
[2024-08-16] MEDS: Metoprolol CR 100 MG TABCR PO (09:11)
[2024-08-16] MEDS: Lisinopril 10 MG TAB 30 MG PO (09:11)
[2024-08-16] MEDS: Isosorbide Mononitrate 60 MG TABCR PO ×2 (09:12→19:57)
[2024-08-16] MEDS: amLODIPine 2.5 MG TAB PO (09:12)
[2024-08-16] MEDS: Allopurinol 300 MG TAB PO (09:12)
[2024-08-16] MEDS: Finasteride 5 MG TAB PO (09:12)
[2024-08-16] MEDS: Normal Saline 250 ML 500 ML IV (11:49)
--- NOTE | 2024-08-16 14:05 | CMPROGNOTE_ITS ---
Date of service: 08/16/24 Time of Service: 14:06 Care Management Progress Note Progress Note Text Progress Note Text: Fredo was sitting up in a chair when CM met with him. [place] [facility] [place] [facility] [place]. When CM discussed this with Fredo he expressed great disappointment and concern. He has had several cardiac surgeries and is concerned that his current chest pain is undiagnosed. He was to have an Echocardiogram today but no report is available and it is not clear if it was done. Additionally Fredo's creatinine continues to rise. His baseline is 2.5 and was noted to be 3.5 today. A repeat this afternoon was 3.7. Discharge Potential Discharge Needs: PCP F/U Appt Anticipated Barriers to Discharge: Medical Status Patient/Family Education Needs: Review discharge instructions, discuss Ask Me Three Transportation: Private vehicle Plan: Fredo will likely be discharged home with no new services. He will follow up with his community providers and plan of care and transport with his . CM will follow and continue to assess for discharge needs. Social Determinants of Health Screening Social Determinants of Health last assessed: 08/16/24 Will the Patient Participate in the Screening?: Yes Do you worry about having a steady place to live?: no Problems where you live: no known problems In the past 12 months, have you had to go without electric, gas, oil or water in your home?: no Have you or anyone in your house had to go without enough food to eat?: no Has lack of transportation kept you from medical appointments or from doing things needed for daily living?: no Has anyone in your life made you feel unsafe or unsupported?: no How hard is it for you to pay for the very basics like food, housing, medical care, and heating? Would you say it is:: Not hard at all Do you want help finding or keeping work or a job?: I do not need or want help If for any reason you need help with day-to-day activities such as bathing, preparing meals, shopping, managing finances, etc., do you get the help you need?: I get all the help I need How often do you feel lonely or isolated from those around you?: Never Do you speak a language other than Slovak at home?: No Does the patient want assistance with any of the above?: No
[2024-08-16] MEDS: Milk of Magnesia 30 ML CUP PO (14:52)
[2024-08-16] MEDS: Polyethylene Glycol 3350 17 GM PACKET PO (14:52)
--- NOTE | 2024-08-16 15:47 | PT.INTREAT ---
PT Notes Visit Reasons: Chest Pain Physical Therapy Inpatient Treatment Note Date: 08/16/2024 (2nd session) Precautions: Fall. Standard. Activity as tolerated. Subjective: pt reported Short-lived mild chest pain at end of session. He noted he thinks some of the pain happens when he gets anxious also. Objective: General Observation: Patient seated in chair with his visiting Mental Status: Alert and oriented as to person, place, time, and purpose. Able to pay attention, focus, and respond appropriately. Pain: Mild activity-induced chest pain that subsided with rest Vital Signs: HR rest 89 after ambulation 118 Bed Mobility/Transfers: Moderate cueing provided for use of B hands as needed for support, movement sequence, AD management, and posture to reduce fall risk and minimize pain report Sit to stand stand by assist Stand to sit stand by assist Gait: Instructed patient with level surface ambulation of 150 feet + 150 feet in the morning requiring contact guard assist and wheelchair follow for safety d/t intermittent episodes of knee instability. Seated rests needed due to fatigue and to report of mild chest pain. Gisselle decreased. Mild buckling in R knee but no LOB. Step height decreased. Step length decreased. Balance: Static Sitting: Normal Dynamic Sitting: Normal Static Standing: Fair Dynamic Standing: Fair ASSESSMENT: Pt continues with intermittent episodes of knee instability then shortly after he reports mild chest pain. Pt also noted chest pain at rest when talking about potential discharge to home. Plan of Care/Treatment Plan: Patient will highly benefit from skilled physical therapy services including functional mobility training, bed mobility/transfer training, gait and balance training, therapeutic exercises, therapeutic activity, caregiver/staff/family education and training 1x/day, 7 days/week x 1 week. Plan of care has been reviewed with the CUMULATIVE EFFECTS ANALYST providing the service under Physical Therapy direction. Initiate Physical Therapy intervention for strengthening, bed mobility, transfers, gait, stairs, balance training, use of assistive device. DISCHARGE RECOMMENDATIONS: [] Home with no services [] [X] Home with services. Patient will benefit from home health PT services in order to progress mobility level using least restrictive assistive ambulatory device, assess home safety, identify additional equipment needs, and establish a functional maintenance program that will increase ability of patient to remain at home. [] Home with outpatient PT [] [] SNF for continued rehabilitation [] [] Correction Care [] [] SNF versus LTC based on ability to participate and progress [] TREATMENT CODE/TIME: 06885 x 21 mins for 1 unit/ [id number] 6599
[2024-08-16 16:23] LABS: Anion Gap 11.7 mmol/L (3-11); BUN 52 mg/dL (7-18); CO2 20.3 mmol/L (21.0-32.0); Calcium 8.3 mg/dL (8.5-10.1); Chloride 99 mmol/L (98-107); Estimated GFR 16.43 (mL/min/1.73m2); Glucose 404 mg/dL (74-106); Potassium 5.1 mmol/L (3.5-5.1); Sodium 131 mmol/L (136-145)
[2024-08-16 16:31] LABS: CREATININE 3.7 mg/dL (0.70-1.30)
[2024-08-16] MEDS: Normal Saline 500 ML IV (18:40)
[2024-08-16] MEDS: Topiramate 50 MG TAB PO (19:57)
[2024-08-16] MEDS: Lidocaine 5% Patch 1 PATCH TP (19:58)
--- NOTE | 2024-08-16 20:37 | PGE_ITS ---
Date of Service Date of service: 08/16/24 Time of Service: 20:38 Assessment and Plan Assessment and plan (1) Chest pain: Status: Acute Assessment and plan: Same as past angina with ACS (s/p CABG). Mostly responsive to nitroglycerin. Also reproducible with anterior chest palpation, and persistent in nature. Pt with extensive cardiac disease. Last cath 2020. Recent negative sestamibi stress test, but results not as reliable status post CABG. Flat troponins. No acute EKG changes. Negative chest x-ray. [facility] [place]. Patient to follow up outpt cardiology. Reproducible Lido patch Heat PT Cards consult pending not here on Wed Echo pending MRSA negative (2) Nutcracker esophagus: Status: Acute Assessment and plan: Complicates chest pain picture. (3) Type 2 diabetes mellitus with peripheral neuropathy: Status: Chronic Assessment and plan: Continue present home regimen Continue ssi and achs fs (4) Chronic kidney disease (CKD) stage G3b/A1, moderately decreased glomerular filtration rate (GFR) between 30-44 mL/min/1.73 square meter and albuminuria creatinine ratio less than 30 mg/g: Status: Chronic Assessment and plan: Complicates care, and dye risk. Cr up to 3.5 today - renal CT negative. Fluid bolus and maintenance fluids - repeat Cr 3.7 - will repeat at 2200h and night MD will call if increasingly high, if lower call am 08/17/23 (5) Traumatic brain injury: Status: Acute Assessment and plan: Fairly mild. Complicates care. (6) Coronary artery disease: Status: Chronic Assessment and plan: See Chest Pain above. (7) Chronic subdural hematoma: Status: Chronic Assessment and plan: H/o spontaneous subdural. Complicates care- contraindication for Heparin and generally anti-platelet therapy. (8) MRSA infection: Assessment and plan: H/o MRSA infection. MRSA swab nares neg Subjective Subjective Patient reports: no new complaints, tolerating liquids well, tolerating a regular diet, voiding w/o difficulty, bowel movement and afebrile; denies diarrhea, nausea, vomiting or shortness of breath Interval history since last seen: Fredo states he is feeling better with less chest pain after application of lidocaine patch. Exam Narrative Exam Narrative: * General: Elderly male of stated age, no acute distress. * Head: Atraumatic. * Eyes: Non-icteric, non-injected. * Oral Mucosa: Moist. * Neck: Supple, full range of motion, no jugular venous distention . * Respiratory: Even and unlabored respirations, lungs clear bilaterally * Cardiovascular: Regular rate and rhythm. Pain with palpation to left chest, left shoulder area. * Abdomen: Benign. * Extremities: No edema, moves all extremities. * Neurologic: Awake, alert, oriented, no focal deficits. * Psychiatric: Appropriate mood and affect. * Skin: No rashes or lesions. Objective Last Vital Signs Temp 36.3 C L 08/16/24 20:02 Pulse 72 08/16/24 20:02 Resp 20 08/16/24 20:02 BP 120/62 08/16/24 20:02 Pulse Ox 98 08/16/24 20:02 Laboratory Results - last 24 hr 08/16/24 08/16/24 06:27 15:58 WBC 8.56 RBC 4.00 L Hgb 12.1 L Hct 35.6 L MCV 89 MCH 30.3 MCHC 34.0 RDW 14.0 Plt Count 186 MPV 9.4 Immature Gran % 0.6 Neutrophils % 68.6 Lymphocytes % 15.7 Monocytes % 10.4 Eosinophils % 3.5 Basophils % 1.2 Nucleated RBC % 0.0 Absolute Neutrophils 5.88 Absolute Lymphocytes 1.34 Absolute Monocytes 0.89 H Absolute Eosinophils 0.30 Absolute Basophils 0.10 Sodium 135 L 131 L Potassium 4.4 5.1 Chloride 102 99 Carbon Dioxide 18.8 L 20.3 L Anion Gap 14.2 H 11.7 H BUN 45 H 52 H Creatinine 3.5 H D 3.7 H* Est GFR (CKD-EPI 2020) 17.56 16.43 Glucose 247 H 404 H Calcium 8.5 8.3 L Magnesium 2.8 H Time Spent with Patient Time Spent with Patient: 25-34 minutes Time was spent: preparing to see the patient(eg.review tests), ordering medications,tests, procedures, referring, communicating with other health child care leader, indepentently interpreting results, counseling the patient and care coordination
[2024-08-16] MEDS: Insulin Glargine 300 UNITS/3 ML PEN 51 UNITS SC (22:21)
[2024-08-16] MEDS: Normal Saline 1,000 ML 150 ML IV (22:21)
[2024-08-16] MEDS: QUEtiapine 100 MG TAB 200 MG PO (22:22)
[2024-08-16 22:30] LABS: Anion Gap 11.1 mmol/L (3-11); BUN 51 mg/dL (7-18); CO2 22.9 mmol/L (21.0-32.0); CREATININE 3.4 mg/dL (0.70-1.30); Calcium 8.5 mg/dL (8.5-10.1); Chloride 100 mmol/L (98-107); Estimated GFR 18.19 (mL/min/1.73m2); Glucose 253 mg/dL (74-106); Potassium 4.9 mmol/L (3.5-5.1); Sodium 134 mmol/L (136-145)
[2024-08-16] MEDS: Pantoprazole 40 MG TABCR PO (22:34)
[2024-08-17] MEDS: Normal Saline 250 ML 500 ML IV (00:15)
[2024-08-17] MEDS: Lidocaine 2% Jelly 6 ML SYR (00:26)
[2024-08-17 00:52] LABS: Bilirubin Negative (Negative); Blood Negative (Negative); Clarity Sl Cloudy (Clear); Glucose 250 mg/dL (Negative); Ketones Negative (Negative); Leukocyte Esterase Negative (Negative); Nitrite Negative (Negative); Urobilinogen 0.2 mg/dL (Up to 0.2)
[2024-08-17 03:25] VITALS: BP 125/66; PULSE 77; RESP 16; TEMP 36.2; O2SAT 96
[2024-08-17] MEDS: Normal Saline 1,000 ML 150 ML IV (05:43)
[2024-08-17] MEDS: Levothyroxine 50 MCG TAB PO (05:44)
[2024-08-17] MEDS: Lidocaine Patch Removal 1 EACH TP (05:52)
[2024-08-17 06:50] LABS: Abs Immature Grans 0.05 10^3/uL (0.0-0.06); Absolute Basophil Count 0.06 10^3/uL (0.0-0.2); Absolute Eosinophil Count 0.21 10^3/uL (0.0-0.7); Absolute Lymphocyte Count 0.95 10^3/uL (1.2-3.4); Absolute Monocyte Count 0.68 10^3/uL (0.1-0.8); Absolute Neutrophil Count 5.52 10^3/uL (1.2-6.7); Basophils % 0.8 %; Eosinophils % 2.8 %; HCT 34.9 % (40.0-50.0); HGB 11.6 g/dL (13.5-17.5); Immature Grans % 0.7 %; Lymphocytes % 12.7 %; MCH 30.1 pg (27.0-33.0); MCHC 33.2 % (32.0-36.0); MCV 90 fL (80-95); MPV 9.2 fL (8.0-11.0); Monocytes % 9.1 %; Neutrophils % 73.9 %; Platelet Count 154 10^3/uL (130-400); RBC 3.86 10^6/uL (4.36-5.78); RDW 13.9 % (11.8-14.1); RDW-SD 45.9 fL; WBC 7.47 10^3/uL (4.4-10.8)
[2024-08-17 07:18] LABS: BUN 47 mg/dL (7-18); Calcium 8.1 mg/dL (8.5-10.1); Chloride 107 mmol/L (98-107); Estimated GFR 21.13 (mL/min/1.73m2); Glucose 218 mg/dL (74-106); Magnesium 3.1 mg/dL (1.8-2.4); Potassium 4.8 mmol/L (3.5-5.1); Sodium 137 mmol/L (136-145)
[2024-08-17 07:25] VITALS: BP 134/65; PULSE 86; RESP 20; TEMP 36.7; O2SAT 97
[2024-08-17] MEDS: Allopurinol 300 MG TAB 150 MG PO (08:04)
[2024-08-17] MEDS: Mirabegron 25 MG TABCR PO (08:05)
[2024-08-17] MEDS: Citalopram 20 MG TAB PO (08:05)
[2024-08-17] MEDS: Isosorbide Mononitrate 60 MG TABCR PO (08:05)
[2024-08-17] MEDS: amLODIPine 2.5 MG TAB PO (08:05)
[2024-08-17] MEDS: dilTIAZem CD 120 MG CAPCR PO (08:05)
[2024-08-17] MEDS: Pregabalin 100 MG CAP PO (08:05)
[2024-08-17] MEDS: Metoprolol CR 100 MG TABCR PO (08:05)
[2024-08-17] MEDS: Multivitamin TAB 1 TAB PO (08:05)
[2024-08-17] MEDS: Acetylcysteine 600 MG CAP PO (08:05)
[2024-08-17] MEDS: Finasteride 5 MG TAB PO (08:05)
[2024-08-17] MEDS: Ranolazine 500 MG TABCR PO (08:06)
[2024-08-17] MEDS: Empaglifozin 10 MG TAB PO (08:06)
[2024-08-17] MEDS: Insulin Aspart 300 UNITS/3 ML PEN SC ×3 (08:06→17:08)
[2024-08-17] MEDS: Normal Saline Flush 10 ML SYR IVP (08:07)
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
--- NOTE | 2024-08-17 10:25 | W.PM.PROGNOT ---
Assessment and Plan Assessment and plan (1) Chest pain: Status: Acute Assessment and plan: Patient has ongoing/ fluctuating chest pain which I continue to believe is not cardiac. It can last for prolonged periods of time and there is NO objective evidence of myocardial ischemia. EKGs are unchanged and troponins are low. I would favor a musculoskeletal etiology (2) Chronic kidney disease (CKD) stage G3b/A1, moderately decreased glomerular filtration rate (GFR) between 30-44 mL/min/1.73 square meter and albuminuria creatinine ratio less than 30 mg/g: Status: Chronic Assessment and plan: Creatinine is now 3.7 baseline is probably 2.5. This needs to be evaluated further which I believe is ongoing. Were renal function to stabilize then coronary angiogram could be reconsidered Objective Last Vital Signs Temp 36.7 C 08/17/24 07:25 Pulse 86 08/17/24 07:25 Resp 20 08/17/24 07:25 BP 134/65 08/17/24 07:25 Pulse Ox 97 08/17/24 07:25 Laboratory Results - last 24 hr 08/16/24 08/16/24 08/17/24 15:58 22:05 00:48 WBC RBC Hgb Hct MCV MCH MCHC RDW Plt Count MPV Immature Gran % Neutrophils % Lymphocytes % Monocytes % Eosinophils % Basophils % Nucleated RBC % Absolute Neutrophils Absolute Lymphocytes Absolute Monocytes Absolute Eosinophils Absolute Basophils Sodium 131 L 134 L Potassium 5.1 4.9 Chloride 99 100 Carbon Dioxide 20.3 L 22.9 Anion Gap 11.7 H 11.1 H BUN 52 H 51 H Creatinine 3.7 H* 3.4 H Est GFR (CKD-EPI 2020) 16.43 18.19 Glucose 404 H 253 H Calcium 8.3 L 8.5 Magnesium Urine Color Yellow Urine Clarity Sl Cloudy Urine pH 6.0 Ur Specific [place] 1.010 Urine Protein Negative Urine Ketones Negative Urine Blood Negative Urine Nitrite Negative Urine Bilirubin Negative Urine Urobilinogen 0.2 Ur Leukocyte Esterase Negative Urine Glucose 250 H 08/17/24 06:25 WBC 7.47 RBC 3.86 L Hgb 11.6 L Hct 34.9 L MCV 90 MCH 30.1 MCHC 33.2 RDW 13.9 Plt Count 154 MPV 9.2 Immature Gran % 0.7 Neutrophils % 73.9 Lymphocytes % 12.7 Monocytes % 9.1 Eosinophils % 2.8 Basophils % 0.8 Nucleated RBC % 0.0 Absolute Neutrophils 5.52 Absolute Lymphocytes 0.95 L Absolute Monocytes 0.68 Absolute Eosinophils 0.21 Absolute Basophils 0.06 Sodium 137 Potassium 4.8 Chloride 107 Carbon Dioxide 20.0 L Anion Gap 10.0 BUN 47 H Creatinine 3.0 H Est GFR (CKD-EPI 2020) 21.13 Glucose 218 H Calcium 8.1 L Magnesium 3.1 H Urine Color Urine Clarity Urine pH Ur Specific [place] Urine Protein Urine Ketones Urine Blood Urine Nitrite Urine Bilirubin Urine Urobilinogen Ur Leukocyte Esterase Urine Glucose
[2024-08-17 11:50] VITALS: BP 127/67; PULSE 76; RESP 18; TEMP 36.4; O2SAT 96
[2024-08-17] MEDS: Acetaminophen 500 MG TAB 1000 MG PO (14:54)
--- NOTE | 2024-08-17 15:07 | PTTR_ITS ---
PT Notes Visit Reasons: Chest Pain Physical Therapy Inpatient Treatment Note Date: 08/17/2024 Precautions: Fall. Standard. Activity as tolerated. Mcdonald catheter Subjective: Pt reported he has not had any chest pain however he is having pain in his right great toe ( palpated with pain at 1st MT jt.) Pt reports he is having issue with his kidneys so they had to put the catheter in and give him fluids. Objective: General Observation: Patient seated in chair IV fluids infusing and mcdonald cat heter in place Mental Status: Alert and oriented as to person, place, time, and purpose. Able to pay attention, focus, and respond appropriately. Pain: Mild at rest in Right 1st MT joint , with palpation pt states it is severe. Vital Signs: monitored via telemetry Bed Mobility/Transfers: Moderate cueing provided for use of B hands as needed for support, movement sequence, AD management, and posture to reduce fall risk and minimize pain report Sit to stand stand by assist Stand to sit stand by assist Gait: (AM)Instructed patient with level surface ambulation of 150 feet + 150 feet req uiring contact guard assist and wheelchair follow for safety and seated rest d/t intermittent episodes of knee instability and fatigue. Gisselle decreased. Mild buckling in R knee but no LOB. Step height decreased. Step length decreased. (PM)Instructed patient with level surface ambulation of 100 feet + 150 feet +220 feet requiring contact guard assist and wheelchair follow for safety and seated rest d/t intermittent episodes of knee instability and fatigue Gisselle decreased. Mild buckling in R knee but no LOB. Step height decreased. Step length decreased. Stairs(am) pt performed 2 6 inch steps x 2 with B rails step to pattern with CGA Balance: Static Sitting: Normal Dynamic Sitting: Normal Static Standing: Fair Dynamic Standing: Fair ASSESSMENT: Pt continues with intermittent episodes of knee instability which reduced with raising height of his walker to promote increased trunk extension during pm session. Pt requires cues/instruction to sit prior to complete buckling of knees occurs. Pt with no episodes of chest pain today. Pt noted to tolerate longer distances of ambulation this afternoon session Plan of Care/Treatment Plan: Patient will highly benefit from skilled physical therapy services including functional mobility training, bed mobility/transfer training, gait and balance training, therapeutic exercises, therapeutic activity, caregiver/staff/family education and training 1x/day, 7 days/week x 1 week. Plan of care has been reviewed with the PASSENGER CAR INSPECTOR providing the service under Physical Therapy direction. Initiate Physical Therapy intervention for strengthening, bed mobility, transfers, gait, stairs, balance training, use of assistive device. DISCHARGE RECOMMENDATIONS: [] Home with no services [] [X] Home with services. Patient will benefit from home health PT services in order to progress mobility level using least restrictive assistive ambulatory device, assess home safety, identify additional equipment needs, and establish a functional maintenance program that will increase ability of patient to remain at home. [] Home with outpatient PT [] [] SNF for continued rehabilitation [] [] [facility] [] [] SNF versus LTC based on ability to participate and progress [] TREATMENT CODE/TIME: (am)[id number] / [id number] (pm)[id number]
[2024-08-17 15:58] VITALS: BP 136/72; PULSE 77; RESP 15; TEMP 36.4; O2SAT 98
--- NOTE | 2024-08-17 16:09 | CMPROGNOTE_ITS ---
Date of service: 08/17/24 Time of Service: 16:09 Care Management Progress Note Progress Note Text Progress Note Text: Fredo was sitting up in a chair when CM met with him. When asked how he was doing he stated not good. Fredo is still disappointed that he was not accepted in [place] [facility] He is still worried about his heart and the possibility that he is having a heart attack. Fredo continues to have chest pain periodically which usually responds to nitroglycerin. He was supposed to have an Echocardiogram yesterday but it was not done. No one will be available to do the test until next Wednesday. Fredo will likely be scheduled as an outpatient. Fredo's renal function is starting to improve. His creatinine is down to 3.0 today from a high of 3.7 yesterday. His baseline is around 1.9-2.0. He now has a mcdonald catheter as he was retaining urine and is waiting for Dr. Obregon from Urology to see him. It is possible he will be discharged later today or tomorrow. Discharge Potential Discharge Needs: PCP F/U Appt Anticipated Barriers to Discharge: None Identified Patient/Family Education Needs: Review discharge instructions, discuss Ask Me Three Transportation: Private vehicle Plan: Fredo will likely be discharged home with no new services. He will follow up with his community providers and plan of care and transport with his . CM will follow and continue to assess for discharge needs. Social Determinants of Health Screening Social Determinants of Health last assessed: 08/17/24 Will the Patient Participate in the Screening?: Yes Do you worry about having a steady place to live?: no Problems where you live: no known problems In the past 12 months, have you had to go without electric, gas, oil or water in your home?: no Have you or anyone in your house had to go without enough food to eat?: no Has lack of transportation kept you from medical appointments or from doing things needed for daily living?: no Has anyone in your life made you feel unsafe or unsupported?: no How hard is it for you to pay for the very basics like food, housing, medical care, and heating? Would you say it is:: Not hard at all Do you want help finding or keeping work or a job?: I do not need or want help If for any reason you need help with day-to-day activities such as bathing, preparing meals, shopping, managing finances, etc., do you get the help you need?: I get all the help I need How often do you feel lonely or isolated from those around you?: Never Do you speak a language other than [place] at home?: No Does the patient want assistance with any of the above?: No
--- NOTE | 2024-08-17 16:34 | CHAPLAIN ---
Andrew's , Madiha, was with him when I visited this afternoon. Andrew said he has mcdonald cath now and may go home with that, he's not sure. He's waiting to speak to Urology. Andrew was suppose to have an Echo yesterday, but it didn't happen. According to Care Management notes, Jordy may go home today or tomorrow and have the Echo as an outpatient as the next Echos won't be done until next week. This is Andrew's second admission this month. Things keep going wrong, he said. Madiha brought in Andrew's bible and daily devotional.
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
[2024-08-17] MEDS: Polyethylene Glycol 3350 17 GM PACKET PO (17:04)
[2024-08-17] MEDS: Docusate Sodium 100 MG CAP 200 MG PO (17:04)
== END 2024-08-17 18:33 | disposition home or self-care (01) | DRG 313 ==
LOC: ER 20:37 → MS 21:58
PROVIDERS: Nurse Practitioner Family; Admitting Provider Emergency Medicine; Emergency Provider Emergency Medicine; PCP Family Medicine; Responsible Provider Nurse Practitioner Acute Care; Visit Provider Emergency Medicine
DX: R07.89 Other chest pain; K22.4 Dyskinesia of esophagus; E11.22 Type 2 diabetes mellitus with diabetic chronic kidney disease; E11.42 Type 2 diabetes mellitus with diabetic polyneuropathy; N18.32 Chronic kidney disease, stage 3b; I25.10 Atherosclerotic heart disease of native coronary artery without angina pectoris; Z95.1 Presence of aortocoronary bypass graft; I70.203 Unspecified atherosclerosis of native arteries of extremities, bilateral legs; G47.33 Obstructive sleep apnea (adult) (pediatric); K76.0 Fatty (change of) liver, not elsewhere classified; D50.9 Iron deficiency anemia, unspecified; E53.8 Deficiency of other specified B group vitamins; F03.90 Unspecified dementia, unspecified severity, without behavioral disturbance, psychotic disturbance, mood disturbance, and anxiety; R29.6 Repeated falls; E78.5 Hyperlipidemia, unspecified; E03.9 Hypothyroidism, unspecified; I12.9 Hypertensive chronic kidney disease with stage 1 through stage 4 chronic kidney disease, or unspecified chronic kidney disease; M47.817 Spondylosis without myelopathy or radiculopathy, lumbosacral region; M47.814 Spondylosis without myelopathy or radiculopathy, thoracic region; M54.12 Radiculopathy, cervical region; Q54.9 Hypospadias, unspecified; N99.116 Postprocedural urethral stricture, male, overlapping sites; Z87.820 Personal history of traumatic brain injury; K21.9 Gastro-esophageal reflux disease without esophagitis; R33.9 Retention of urine, unspecified; Z79.84 Long term (current) use of oral hypoglycemic drugs; Z79.4 Long term (current) use of insulin
CPT/HCPCS: 00123; 36415; 80048; 85027; 87077; 87641; 93005; 96365; 96375; 97162; 97530; 99222; 99223; 99285; 74176; 81003; 83735; 84484; 85025; 87086; 87186; 93010; 99232; 99239; J0131; J1815; J2270; J3490

== ENCOUNTER → 2024-08-17 08:20 | Outpatient (BNVA) | payer MEDICARE, OTHER, SELFPAY | PROVIDERS: PCP Family Medicine; Referring Provider Family Medicine; Visit Provider Internal Medicine Cardiovascular Disease ==

== ENCOUNTER → 2024-08-17 08:24 | Outpatient (BNVA) | payer MEDICARE, OTHER, SELFPAY | PROVIDERS: PCP Family Medicine; Referring Provider Family Medicine; Visit Provider Urology ==

== ENCOUNTER → 2024-08-24 14:43 | Outpatient (BNVA) | payer MEDICARE, OTHER, SELFPAY | PROVIDERS: PCP Family Medicine; Referring Provider Family Medicine; Visit Provider Urology | DX: N35.911 Unspecified urethral stricture, male, meatal (principal) | CPT/HCPCS: 99213 ==

== ENCOUNTER 2024-08-30 03:40 | Outpatient (CLI) | payer MEDICARE, OTHER, SELFPAY ==
--- NOTE | 2024-08-30 08:40 | DI.US_ITS ---
APPROVED REPORT EXAM: Comprehensive 2D, Doppler, and color-flow Echocardiogram Patient Location: Out-Patient Scrubber Machine Tender: Jamie Ching RDCS (AE) Indications: Atherosclerosis Other Information Study Quality: Fair. Technically limited study due to body habitus. Conclusion Normal left ventricular wall thickness and chamber size. Ejection fraction is 55 to 60%. Wall motio n is normal Normal right ventricular size and function Both atria are normal in size Aortic valve is mildly sclerotic and trileaflet with trace regurgitation Mild mitral annular calcification, trace mitral regurgitation Wall motion Left Ventricle The left ventricle is normal size. The left ventricular systolic function is normal. The left ventric ular ejection fraction is within the normal range. There is normal left ventricular wall thickness. T here is normal LV segmental wall motion. There is no ventricular septal defect visualized. LVEF is 55 -60%. Right Ventricle The right ventricle is normal size. The right ventricular systolic function is normal. Atria The left atrium size is normal. The right atrium size is normal. The interatrial septum is intact wit h no evidence for an atrial septal defect. Aortic Valve The aortic valve is mildly sclerotic. Aortic valve is trileaflet. There is no aortic valvular stenosi s. Trace aortic regurgitation. Mitral Valve Mild mitral annular calcification. No evidence of mitral valve stenosis. Trace mitral regurgitation. Tricuspid Valve The tricuspid valve is normal in structure. There is no tricuspid valve stenosis. Trace tricuspid reg urgitation. Pulmonic Valve Pulmonic valve is not well visualized. There is no pulmonic valvular regurgitation. Great Vessels The aortic root is normal in size. Ascending aorta is not well visualized. Aortic arch is normal in c aliber. IVC is normal in size and collapses >50% with inspiration. Pericardium There is no pericardial effusion. 2D Dimensions IVSD d PLAX 0.78 cm M: 0.6-1.2 Ao Root d 3.25 cm M: 3.1 - 3.7 LVPW d PLAX 0.77 cm M: 0.6 - 1.2 Ao Asc Diam d 2.73 cm M: 2.6 - 3.4 LVID d PLAX 4.16 cm M: 4.2 - 5.8 LVDs 2.94 cm M: 2.5 - 4.0 LV EF Teichholz 56.7 % FS 29.37 % LV EDV (Teich) 76.8 mL LV ESV (Teich) 33.3 mL Stroke Vol Index (Teich) 20.85 M-Mode TAPSE 1.84 cm (M/F) >1.7 LV Volumes - Method of Disks ([facility]) Single Plane 2D LV Volumes Biplane 2D LV Volumes LV EDV A4C 78.9 mL LV EDV BP 75.00 mL M: 62 - 150 LV ESV A4C 36.4 mL LV ESV BP 31.1 mL LVEF(%) A4C 53.8 % LVEF(%) BP 58.51 % M: 52 - 72 LV EDV A2C 66.1 mL LV EDV BP Index 35.88 mL/m2 M: 34 - 74 LV ESV A2C 27.2 mL SV BP LVEF(%) A2C 58.8 % SV Index LA Volume LA Length A4C 5.7 cm LA Length A2C 5.4 cm LA Area A4C s 13.13 cm2 LA Area A2C s 11.59 cm2 LA Vol A4C A-L 25.61 mL LA Vol A2C A-L 21.22 mL LA Vol Biplane A-L 24.0 mL LA Vol/BSA A4C A-L LA Vol/BSA A2C A-L LA Vol/BSA BP A-L 11.5 mL/m2 LA Vol A4C MOD 24.2 mL LA Vol A2C MOD 20.6 mL LA Vol BP MOD 22.8 mL RA Volume RA Area A4C 14.9 cm2 RA ESV A4C (A-L) 38.3mL RA Vol/BSA A4C A-L RA Length A4C 4.9 cm RA ESV A4C (MOD) 38.3mL LV Diastology MV E' medial 0.079 (>0.07 m/s) MV E Vmax 0.74 (0.4-1.3 m/s) MV E/E' MED 9.34 (<14) MV A Vmax 0.90 (0.4-1.3 m/s) MV E' lateral 0.078 (>0.1 m/s) E/A Ratio 0.8 MV E/E' LAT 9.47 (<14) MV E' Average 0.079 m/s MV E/E'(average) 9.41 Aortic Valve AoV Vmax 1.31 m/s LVOT Vmax 1.19 m/s AoV Peak Grad 6.9 mmHg LVOT Peak Grad 5.7 mmHg AoV Area (Vmax) 2.43 cm2 LVOT VTI 0.258 m AoV VTI 0.286 m LVOT Mean Grad 2.9 mmHg AoV Mean Shemar. 0.86 m/s LVOT SV 68.90 mL AoV Mean Grad 3.4 mmHg LVOT Diam s 1.80 cm AoV Area (VTI) 2.41 cm2 AV Regurg Peak Gr. 6.86 mmHg Velocity Ratio 0.91 Mitral Valve MV DT 224 (160-240 msec) MV Vmax TIPS 0.87 m/s MV Mean Grad 1.3 (<2mmHg) MV VTI 0.292 m Pulmonary Valve PV Vmax 0.72 (0.5-1.5 m/s) RVOT Vmax 0.59 m/s PV Peak Grad 2.1 mmHg RVOT Peak Gr. 1.4 mmHg PV Mean Shemar 0.54 m/s RVOT VTI 0.155 m PV Mean Grad 1.3 mmHg RVOT Mean Gr. 0.8 mmHg
== END 2024-08-30 04:00 ==
LOC: DI 03:40
PROVIDERS: PCP Family Medicine; Visit Provider Internal Medicine Cardiovascular Disease
DX: I25.10 Atherosclerotic heart disease of native coronary artery without angina pectoris (principal)
CPT/HCPCS: 93306

== ENCOUNTER 2024-09-02 11:22 | Emergency (ER) | payer MEDICARE, OTHER, SELFPAY ==
[2024-09-02 11:23] VITALS: BP 129/73; PULSE 77; TEMP 36.6; O2SAT 97
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
--- NOTE | 2024-09-02 12:05 | DI.RAD_ITS ---
Exam(s) XR FOOT RT COMPLETE EXAM: XR FOOT RT COMPLETE CLINICAL HISTORY: Great toe pain. TECHNIQUE: 2D digital imaging was performed of the right foot. Three images were obtained. AP, obl ique and lateral views were obtained. COMPARISON: CR XR FOOT RT COMPLETE from 05/22/2024 FINDINGS: BONES: No acute fracture is present. No bony destructive lesion is seen. Note is again made of a bipa rtite medial sesamoid at the head of the 1st metatarsal bone. JOINTS: No dislocation present. The joint spaces are well maintained. The 1st MTP joint is well main tained. SOFT TISSUE: Normal. IMPRESSION: No acute abnormality. DATA REPOSITORY: RADIATION DOSE DELIVERED:
--- NOTE | 2024-09-02 12:24 | DI.VRAD_ITS ---
PROCEDURE INFORMATION: Exam: XR Right Foot Exam date and time: 09/02/2024 12:00 PM Age: 73 years old Clinical indication: Pain; History of gout in right foot per patient TECHNIQUE: Imaging protocol: Radiologic exam of the right foot. Views: 3 or more views. COMPARISON: CR XR FOOT RT COMPLETE 05/22/2024 3:40 PM FINDINGS: Bones/joints: Tiny Achilles enthesophyte. Plantar arch is preserved. Soft tissues: No soft tissue swelling or bony erosions. IMPRESSION: No acute fracture or dislocation. Dictated and Authenticated by: Richard Vyas MD. Orderin Jose Pettit MD
== END 2024-09-02 12:59 | disposition home or self-care (01) ==
PROVIDERS: Emergency Provider Registered Nurse Emergency; PCP Family Medicine
DX: M79.674 Pain in right toe(s) (principal); G89.29 Other chronic pain; E11.22 Type 2 diabetes mellitus with diabetic chronic kidney disease; I12.9 Hypertensive chronic kidney disease with stage 1 through stage 4 chronic kidney disease, or unspecified chronic kidney disease; N18.32 Chronic kidney disease, stage 3b; E11.40 Type 2 diabetes mellitus with diabetic neuropathy, unspecified; I25.10 Atherosclerotic heart disease of native coronary artery without angina pectoris; E03.9 Hypothyroidism, unspecified; Z87.820 Personal history of traumatic brain injury; Z86.718 Personal history of other venous thrombosis and embolism; Z95.1 Presence of aortocoronary bypass graft; Z79.4 Long term (current) use of insulin; Z79.84 Long term (current) use of oral hypoglycemic drugs; Z79.899 Other long term (current) drug therapy; Z87.891 Personal history of nicotine dependence
CPT/HCPCS: 99283; 73630

== ENCOUNTER 2024-09-04 08:06 | Day surgery (SDC) | payer MEDICARE, OTHER, SELFPAY ==
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
[2024-09-04 08:15] VITALS: BP 129/61; PULSE 80; RESP 20; TEMP 36.3; O2SAT 99
--- NOTE | 2024-09-04 08:45 | RT.EKG_ITS ---
APPROVED REPORT Exam: Resting ECG Reason for Exam: pre-surgical r/t recent chest pain Patient Location: O HR:78 bpm ECG Measurements Heart Rate 78 AXIS FL 143 P 39 QRSd 98 QRS 24 QT 412 T 69 QTc 470 Conclusion Sinus rhythm...normal P axis, V-rate 50- 99 early transition...QRS area>0 in V2 Nonspecific T abnormalities, lateral leads...T <-0.10mV, I aVL V5 V6 Baseline wander in lead(s) V5
[2024-09-04] MEDS: Ciprofloxacin 500 MG TAB PO (09:03)
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
[2024-09-04 10:26] VITALS: BMI 29.9
[2024-09-04] MEDS: Lidocaine 2% Jelly 11 ML SYR (11:26)
[2024-09-04 11:40] VITALS: BP 112/55; PULSE 74; RESP 18; TEMP 36.4; O2SAT 99
--- NOTE | 2024-09-04 11:45 | W.PM.DSUDISC ---
Date of service: 09/04/24 Discharge Plan Disposition Patient Disposition: Home Discharge Details Reason For Visit: urethral stricture Attending Provider: Ilia Obregon Primary Care Provider: Alisa Ramirez Home Meds and New Rx's Prescriptions: No Action finasteride 5 mg tablet 5 mg PO DAILY Qty: 90 4RF mirabegron [Myrbetriq] 25 mg tablet extended release 24 hr 25 mg PO DAILY Qty: 90 3RF multivitamin Tablet 1 tab PO DAILY diclofenac sodium [Voltaren] 1 % gel 1 applic topical DIRECTED Rx Instructions: apply to single elbow, wrist or hand; for hand includes palm/fingers/back of hand ketoconazole 2 % cream 1 applic topical DAILY 90 Days Qty: 60 3RF Rx Instructions: Apply to toenails once daily citalopram 20 mg tablet 20 mg PO DAILY allopurinol 300 mg tablet 300 mg PO DAILY riboflavin (vitamin B2) [Vitamin B-2] 100 mg tablet 400 mg PO .QD acetylcysteine 600 mg capsule 600 mg PO BID pantoprazole 40 mg tablet,delayed release (DR/EC) 40 mg PO HS pregabalin 100 mg capsule 100 mg PO DAILY levothyroxine 50 MCG tablet 50 mcg PO DAILY@0730 quetiapine [Seroquel] 300 mg tablet 200 mg PO HS docusate sodium [Colace] 100 mg Capsule 100 mg PO DAILY PRN topiramate 50 mg tablet 50 mg PO HS amlodipine 2.5 mg tablet 2.5 mg PO DAILY tramadol 50 mg tablet 50 mg PO QHS PRN (Reason: pain) nitroglycerin 0.4 mg Tablet, Sublingual 0.4 mg sublingual Q5 MIN PRN X3 PRNQty: 12 0RF diltiazem HCl 120 mg Capsule,Extended Release 24hr 120 mg PO DAILY Qty: 90 0RF isosorbide mononitrate 60 mg tablet extended release 24 hr 60 mg PO HS Patient Comments: TAKE 1 TABLET BY MOUTH ONCE DAILY, per taking hs (DME) Accu-Chek Guide test strips Strip MISCELLANEOUS Patient Comments: USE 1 STRIP TO CHECK GLUCOSE TWICE DAILY lisinopril 10 mg tablet 30 mg PO DAILY Patient Comments: TAKE 1 TABLET BY MOUTH ONCE DAILY . TOTAL DOSE 20mg insulin degludec [Tresiba FlexTouch U-200] 200 unit/mL (3 mL) insulin pen 64 unit subcut QHS Qty: 0 0RF Jardiance 10 mg tablet 10 mg PO DAILY Qty: 10 0RF Rx Instructions: Follow -up with PCP for additional medicine metoprolol succinate 50 mg Tablet Extended Release 24 Hr 100 mg PO HS ranolazine 500 mg tablet extended release 12 hr 500 mg PO BID acetaminophen [Acetaminophen Extra Strength] 500 mg tablet 1,000 mg PO TID PRN PRN (Reason: pain) Qty: 30 0RF polyethylene glycol 3350 [Miralax] 17 gram/dose powder 17 g PO BID Qty: 119 0RF Rx Instructions: Take until BM gabapentin 300 mg capsule 300 mg PO QHS 7 Days Qty: 7 0RF Rx Instructions: Take one capsule by mouth at bedtime x 7 days Discharge Instructions Additional Instructions: mcdonald to gravity followup to have catheter removed later this week Discharge Orders Discharge Orders: Discharge Order (Routine); Ordered 09/04/24 Ordered By: Ilia Obregon DS: Diagnosis Discharge Diagnosis (1) Urethral stricture:
--- NOTE | 2024-09-04 11:49 | W.PM.OP ---
Operative Note Operative Note PRE-OP DIAGNOSIS: Meatal stenosis POST-OP DIAGNOSIS: same PROCEDURE: Balloon dilation of urethral stricture using medicated balloon SURGEON: Ilia Obregon ANESTHESIA TYPE: Local By Surgeon and General:No Airway Refer to Anesthesia Record ESTIMATED BLOOD LOSS: 5 PATHOLOGY: none sent COMPLICATIONS: None Patient was transported to: same day Patient's condition: stable Implants: 14 Tristanian Coello catheter with 10 cc sterile water in balloon Indications: This is a 73-year-old gentleman who has a history of hypospadias. He has had multiple surgical procedures which have resulted in the urethral meatus still at the coronal sulcus and urethral stricture disease. He has required multiple dilations in the past. He presents now for a balloon dilation using an Optilume balloon Findings: Meatal stenosis Procedure Description: The patient was given oral antibiotics and brought to the operating room on 09/04/2024. He is placed in the supine position. General anesthesia without intubation was given. His genitalia was then prepped and draped. 2% Xylocaine jelly was instilled into the urethra to act as a local anesthetic. A 0.038 guidewire was passed through the urethra into the bladder. A 24 Tristanian Optilume balloon was advanced over the wire and positioned so that it straddled the meatal stenotic area. The balloon was then inflated up to 10 ursula. The dilation remained in place for total of 10 minutes. The balloon was then deflated and was removed. A 14 Tristanian Coello catheter was passed over the indwelling wire. The wire was then removed and the catheter balloon was inflated with 10 cc of sterile water. The catheter was hooked to gravity drainage. The patient tolerated the procedure well with no complications. Date of Procedure: 09/04/24
--- NOTE | 2024-09-04 11:54 | W.ANESPOSTOP ---
Postoperative Evaluation Date, Time and Location Date Performed: 09/04/24 Time Performed: 11:54 Patient Location: Day Surgery Unit Vital Signs Most Recent Imported Vital Signs: Most Recent Vital Signs Temp Pulse Resp BP Pulse Ox 36.4 C L 74 18 112/55 L 99 09/04/24 11:40 09/04/24 11:40 09/04/24 11:40 09/04/24 11:40 09/04/24 11:40 Pain Score Most Recent Pain Score: Most Recent Pain Score Pain Level 0 09/04/24 11:40 Assessment Mental Status: Awake (Alert & Oriented to Patient Baseline) Airway and Respiratory Function: Patent airway with normal (patient baseline) respiratory exam Cardiovascular Function: Hemodynamically Stable Hydration Status: Adequately Hydrated Nausea & Vomiting: No Nausea or Vomiting Pain: Pain is tolerable per patient Peripheral Nerve Block: Patient did not receive a nerve block
[2024-09-04 12:03] VITALS: BP 119/56; PULSE 73; RESP 18; TEMP 36.3; O2SAT 100
== END 2024-09-04 12:32 | disposition home or self-care (01) ==
PROVIDERS: PCP Family Medicine; Visit Provider Urology
PROC: 0T7D8ZZ Dilation of Urethra, Via Natural or Artificial Opening Endoscopic (ICD-10-PCS; CPT 52281; principal; 2024-09-04 10:00)
DX: N35.814 Other anterior urethral stricture, male (principal); E11.22 Type 2 diabetes mellitus with diabetic chronic kidney disease; N18.32 Chronic kidney disease, stage 3b; Q54.0 Hypospadias, balanic; I12.9 Hypertensive chronic kidney disease with stage 1 through stage 4 chronic kidney disease, or unspecified chronic kidney disease
CPT/HCPCS: 52284; C1889; 93005; 93010; J2371; J2405; J2704; J3010

== ENCOUNTER → 2024-09-07 07:51 | Outpatient (BNVA) | payer MEDICARE, OTHER, SELFPAY | PROVIDERS: PCP Family Medicine; Referring Provider Family Medicine; Visit Provider Nurse Practitioner Gerontology | DX: R39.9 Unspecified symptoms and signs involving the genitourinary system (principal); N35.919 Unspecified urethral stricture, male, unspecified site; N32.81 Overactive bladder | CPT/HCPCS: 99213 ==

== ENCOUNTER 2024-09-23 12:55 | Emergency (ER) | payer MEDICARE, OTHER, SELFPAY ==
[2024-09-23] VITALS (11 sets, daily range): BP systolic 114–169; BP diastolic 54–85; PULSE 78–84; RESP 13–19; TEMP 36.4; O2SAT 95–99
--- NOTE | 2024-09-23 13:00 | DI.CT_ITS ---
Exam(s) CT ABDOMEN PELVIS WO EXAM: CT ABDOMEN PELVIS WO CLINICAL HISTORY: left flank and lower quadrant pain. TECHNIQUE: Imaging Protocol: Axial computed tomography images with coronal and sagittal reformatted images were created and reviewed. COMPARISON: CT CT ABDOMEN PELVIS W from 01/04/[address] ABDOMEN PELVIS WO from 12/16/[address] ABDOMEN PELVIS WO from 09/09/[address] RENAL COLIC WO from 08/16/2024 FINDINGS: Lack of IV contrast does limit evaluation of the abdominal pelvic organs. ABDOMEN: Lung Bases: Coronary artery calcifications are present. Liver: Normal density. No measurable mass. Gallbladder and biliary tract: There is a calcification again seen in the nondependent wall of the ga llbladder. No biliary ductal dilatation is seen. Pancreas: Normal density, no abnormal calcifications or inflammatory process. Spleen: Normal. Kidneys: Normal size, contour and axis.No radiodense stones or obstructive uropathy. There is a simpl e cyst again seen in the inferior pole of the right kidney. No follow-up is recommended. There is a 3 mm calcification seen within or adjacent to the distal left ureter. This is unchanged. It is bee n previously seen on multiple examinations. There is no hydronephrosis. Adrenal glands: No mass is seen. Lymph nodes: Within normal limits. Abdominal Aorta: Abdominal portion non-dilated. Atherosclerotic calcification is present. PELVIS: Bladder:Symmetric distention, no gross wall thickening. Bowel: No obstruction or bowel wall thickening. No evidence of appendicitis. Peritoneal cavity: No ascites, collection or mesenteric inflammatory response. No free air. Reproductive organs: Unremarkable as visualized. Bones: Within normal limits. There is a stable old compression deformity of T12. Soft Tissues: Within normal limits. IMPRESSION: 1. There is a 3 mm calcification adjacent to or within the distal left ureter. It is unchanged. The re is no hydronephrosis. 2. No nephrolithiasis peer 3. No acute abdominal or pelvic process. RADIATION DOSE DELIVERED: 841.34mGy.cm Total DLP DATA REPOSITORY: All CT scans at this facility are submitted to the National Radiology Data Registry (NRDR) Dose Index Registry (DIR) with the [employer] ([employer]). RADIATION OPTIMIZATION: All CT scans at this facility use at least one of these dose optimization te chniques: automated exposure control; mA and/or kV adjustment per patient size (includes targeted exa ms where dose is matched to clinical indication); or iterative reconstruction.
[2024-09-23 13:28] LABS: Abs Immature Grans 0.13 10^3/uL (0.0-0.06); Absolute Basophil Count 0.08 10^3/uL (0.0-0.2); Absolute Lymphocyte Count 1.09 10^3/uL (1.2-3.4); Absolute Monocyte Count 0.98 10^3/uL (0.1-0.8); Basophils % 0.6 %; Eosinophils % 0.7 %; HCT 41.1 % (40.0-50.0); HGB 13.2 g/dL (13.5-17.5); MCH 29.9 pg (27.0-33.0); MCHC 32.1 % (32.0-36.0); MCV 93 fL (80-95); Monocytes % 7.2 %; Neutrophils % 82.5 %; Platelet Count 170 10^3/uL (130-400); RBC 4.41 10^6/uL (4.36-5.78); RDW 14.6 % (11.8-14.1); RDW-SD 50.1 fL; WBC 13.68 10^3/uL (4.4-10.8)
[2024-09-23 13:31] LABS: Absolute Neutrophil Count 11.29 10^3/uL (1.2-6.7)
[2024-09-23 13:43] LABS: ALT 26 U/L (16-63); AST 22 U/L (15-37); Albumin 3.9 g/dL (3.4-5.0); Alkaline Phosphatase 105 U/L (46-116); Anion Gap 10.1 mmol/L (3-11); BUN 42 mg/dL (7-18); Bilirubin, Total 0.5 mg/dL (0.2-1.0); CO2 20.9 mmol/L (21.0-32.0); CREATININE 2.8 mg/dL (0.70-1.30); Calcium 8.7 mg/dL (8.5-10.1); Chloride 102 mmol/L (98-107); Estimated GFR 22.81 (mL/min/1.73m2); Glucose 238 mg/dL (74-106); Lipase 210 U/L (<78); Potassium 5.1 mmol/L (3.5-5.1); Sodium 133 mmol/L (136-145); Total Protein 7.4 g/dL (6.4-8.2)
[2024-09-23] MEDS: ACETAMINOPHEN 500 MG/50 ML BAG 200 MG IVPB (13:45)
[2024-09-23 14:55] LABS: Bilirubin Negative (Negative); Blood Negative (Negative); Clarity Clear (Clear); Glucose 500 mg/dL (Negative); Ketones Negative (Negative); Leukocyte Esterase Small (Negative); Nitrite Negative (Negative); Specific Gravity <= 1.005 (1.005-1.025); Urobilinogen 0.2 mg/dL (Up to 0.2); pH 5.5 (5-8)
[2024-09-23] MEDS: MORPHine 10 MG/ML VIAL 2 MG IVP ×2 (14:59→16:15)
[2024-09-23 15:02] LABS: Bacteria Moderate HPF (Negative); C & S Indicated? Yes; Crystals Negative HPF (Negative); Epithelial Cells Rare HPF (Negative); Mucus Negative (Negative); RBC Negative HPF (0-2); WBC >50 HPF (0-5)
--- NOTE | 2024-09-23 15:15 | RT.EKG_ITS ---
APPROVED REPORT Exam: Resting ECG Reason for Exam: qt mami Patient Location: E HR:78 bpm ECG Measurements Heart Rate 78 AXIS CA 142 P 48 QRSd 94 QRS 23 QT 393 T 68 QTc 448 Conclusion Sinus rhythm, rate 78 No interval abnormalities No STEMI No significant changes from priors
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
[2024-09-23] MEDS: CIPROFLOXACIN 400 MG/200 ML BAG 200 MG IVPB (15:58)
[2024-09-23 16:17] LABS: BE (Venous) -6 mmol/L (-2-3); HCO3 (Venous) 21 mmol/L (23-28); Lactate 1.2 mmol/L (<or=2.0); O2 Sat (Venous) 48 %; TCO2 (Venous) 20 mmol/L (24-29); pCO2 (Venous) 48 mmHg (41-51); pH (Venous) 7.25 (7.31-7.41); pO2 (Venous) 29 mmHg
== END 2024-09-23 17:03 | disposition short-term general hospital (02) ==
PROVIDERS: Physician Assistant; Emergency Provider Physician Assistant; PCP Family Medicine
DX: N20.1 Calculus of ureter (principal); E11.40 Type 2 diabetes mellitus with diabetic neuropathy, unspecified; E11.22 Type 2 diabetes mellitus with diabetic chronic kidney disease; I12.9 Hypertensive chronic kidney disease with stage 1 through stage 4 chronic kidney disease, or unspecified chronic kidney disease; N18.9 Chronic kidney disease, unspecified; E78.5 Hyperlipidemia, unspecified; E03.9 Hypothyroidism, unspecified; F03.90 Unspecified dementia, unspecified severity, without behavioral disturbance, psychotic disturbance, mood disturbance, and anxiety; Z79.4 Long term (current) use of insulin; I48.91 Unspecified atrial fibrillation; Z79.899 Other long term (current) drug therapy
CPT/HCPCS: 36415; 80053; 82805; 83690; 87040; 87077; 93005; 96365; 96367; 96375; 96376; 99285; 74176; 81003; 81015; 83605; 85025; 87086; 87186; 93010; J0131; J0744; J2270

== ENCOUNTER 2024-09-30 16:33 | Inpatient (IN) | payer MEDICARE, OTHER, SELFPAY ==
[2024-09-30] VITALS (50 sets, daily range): BP systolic 136–205; BP diastolic 74–108; PULSE 82–132; RESP 14–31; TEMP 36.6; O2SAT 95–100
--- NOTE | 2024-09-30 17:00 | RT.EKG_ITS ---
APPROVED REPORT Exam: Resting ECG Reason for Exam: QTc check Patient Location: E HR:95 bpm ECG Measurements Heart Rate 95 AXIS MI 132 P 34 QRSd 88 QRS 19 QT 321 T 212 QTc 403 Conclusion Sinus rhythm...normal P axis, V-rate 60- 99 Repol abnrm suggests ischemia, anterolateral...ST dep, T neg, I aVL V2-V6
--- NOTE | 2024-09-30 17:00 | W.ED.GENAD ---
Discharge Plan Disposition Patient Disposition: Admit to [facility] Condition: Stable Discharge Details Clinical Impression: Non-ST elevation VT (NSTEMI) Primary Care Provider: Alisa Ramirez ED Provider: Christopher Martínez Home Meds and New Rx's Prescriptions: No Action finasteride 5 mg tablet 5 mg PO DAILY Qty: 90 4RF mirabegron [Myrbetriq] 25 mg tablet extended release 24 hr 25 mg PO DAILY Qty: 90 3RF multivitamin Tablet 1 tab PO DAILY ketoconazole 2 % cream 1 applic topical DAILY 90 Days Qty: 60 3RF Rx Instructions: Apply to toenails once daily citalopram 20 mg tablet 20 mg PO DAILY allopurinol 300 mg tablet 300 mg PO DAILY riboflavin (vitamin B2) [Vitamin B-2] 100 mg tablet 400 mg PO .QD pantoprazole 40 mg tablet,delayed release (DR/EC) 40 mg PO HS pregabalin 100 mg capsule 100 mg PO BID Jardiance 25 mg tablet 25 mg PO DAILY acetylcysteine 600 mg capsule 600 mg PO BID levothyroxine 50 MCG tablet 50 mcg PO DAILY@0730 topiramate 50 mg tablet 50 mg PO HS amlodipine 2.5 mg tablet 2.5 mg PO DAILY tramadol 50 mg tablet 50 mg PO QHS PRN (Reason: pain) nitroglycerin 0.4 mg Tablet, Sublingual 0.4 mg sublingual Q5 MIN PRN X3 PRNQty: 12 0RF diltiazem HCl 120 mg Capsule,Extended Release 24hr 120 mg PO DAILY Qty: 90 0RF isosorbide mononitrate 60 mg tablet extended release 24 hr 60 mg PO HS Patient Comments: TAKE 1 TABLET BY MOUTH ONCE DAILY, per taking hs (DME) Accu-Chek Guide test strips Strip MISCELLANEOUS Patient Comments: USE 1 STRIP TO CHECK GLUCOSE TWICE DAILY lisinopril 10 mg tablet 30 mg PO DAILY Patient Comments: TAKE 1 TABLET BY MOUTH ONCE DAILY . TOTAL DOSE 20mg ranolazine 500 mg tablet extended release 12 hr 500 mg PO BID acetaminophen [Acetaminophen Extra Strength] 500 mg tablet 1,000 mg PO TID PRN PRN (Reason: pain) Qty: 30 0RF cyanocobalamin (vitamin B-12) 1,000 mcg/mL kit 100 mcg subcut QMONTH metoprolol succinate 100 mg tablet extended release 24 hr 100 mg PO BID Patient Comments: TAKE 1 TABLET BY MOUTH TWICE DAILY mupirocin 2 % ointment 1 applic TOPICAL DAILY Patient Comments: APPLY TOPICALLY ONCE DAILY quetiapine 200 mg tablet 200 mg PO HS Patient Comments: TAKE 1 TABLET BY MOUTH ONCE DAILY AT BEDTIME benzonatate 100 mg capsule 100 mg PO TID PRN sodium bicarbonate 650 mg tablet 650 mg PO BID ciprofloxacin HCl 500 mg tablet 500 mg PO BID insulin degludec [Tresiba FlexTouch U-200] 200 unit/mL (3 mL) insulin pen 200 unit subcut QHS HPI General Date/Time Provider Initiated Documentation: 09/30/24 16:40. HPI Narrative: 74 year-old male presents to ED today by POV/ambulating with his with a chief complaint of intractable nausea/vomiting, retching, feeling feverish, coughing with irritation after being discharged from [facility] last night. He was transferred there last week for emergent L ureteral stent due to L infected kidney stone, and had an erythematous possible scrotum infection as well, currently on Cipro but threw his dose up today. Quality described as feels feverish, coughing, short of breath, feels lung irritation worse with coughing, no radiation to near syncope, overt chest pain, endorses L sided abdominal pain, and dribbling urine. Severity is described as moderate. Palliating factors include nothing specific attempted. Provoking factors include nothing specific. Events leading up to the incident/Associated Symptoms: Per his , [facility] team wanted the patient to recover at rehab, but she insisted that she could take care of him at home. Patient has cardiac history of 4-5 stents in 2005. Patient not anticoagulated. Related Data Home Medications ?Medication ?Instructions ?Recorded ?Confirmed levothyroxine 50 mcg tablet 50 mcg PO DAILY@0730 01/24/13 09/30/24 topiramate 50 mg tablet 50 mg PO HS 01/09/21 09/30/24 amlodipine 2.5 mg tablet 2.5 mg PO DAILY 08/18/21 09/30/24 finasteride 5 mg tablet 5 mg PO DAILY #90 tabs 08/18/21 09/30/24 tramadol 50 mg tablet 50 mg PO QHS PRN pain 06/19/22 09/30/24 riboflavin (vitamin B2) 100 mg 400 mg PO .QD 06/25/22 09/30/24 tablet (Vitamin B-2) mirabegron 25 mg tablet,extended 25 mg PO DAILY #90 tabs 03/11/23 09/30/24 release 24 hr (Myrbetriq) ketoconazole 2 % topical cream 1 applic topical DAILY 3 months 04/27/23 09/30/24 #60 grams ranolazine 500 mg tablet,extended 500 mg PO BID 05/24/23 09/30/24 release,12 hr acetaminophen 500 mg tablet 1,000 mg (2 x 500 mg) PO TID PRN 05/25/23 09/30/24 (Acetaminophen Extra Strength) PRN pain #30 tabs multivitamin 1 tab PO DAILY 12/20/23 09/30/24 allopurinol 300 mg tablet 300 mg PO DAILY 02/03/24 09/30/24 citalopram 20 mg tablet 20 mg PO DAILY 02/03/24 09/30/24 pantoprazole 40 mg tablet,delayed 40 mg PO HS 02/29/24 09/30/24 release pregabalin 100 mg capsule 100 mg PO BID 02/29/24 09/30/24 diltiazem HCl 120 mg 120 mg PO DAILY #90 caps 07/26/24 09/30/24 capsule,extended release 24 hr nitroglycerin 0.4 mg sublingual 0.4 mg sublingual Q5 MIN PRN X3 07/26/24 09/30/24 tablet PRN #12 tabs blood sugar diagnostic (Accu-Chek 07/30/24 09/30/24 Guide test strips) isosorbide mononitrate 60 mg 60 mg PO HS 07/30/24 09/30/24 tablet,extended release 24 hr lisinopril 10 mg tablet 30 mg PO DAILY 07/30/24 09/30/24 acetylcysteine 600 mg capsule 600 mg PO BID 09/14/24 09/30/24 empagliflozin 25 mg tablet 25 mg PO DAILY 09/14/24 09/30/24 (Jardiance) benzonatate 100 mg capsule 100 mg PO TID PRN 09/30/24 09/30/24 ciprofloxacin HCl 500 mg tablet 500 mg PO BID 09/30/24 09/30/24 cyanocobalamin (vitamin B-12) 100 mcg subcut QMONTH 09/30/24 09/30/24 1,000 mcg/mL injection kit insulin degludec 200 unit/mL (3 200 unit subcut QHS 09/30/24 09/30/24 mL) subcutaneous pen (Tresiba FlexTouch U-200 insulin) metoprolol succinate 100 mg 100 mg PO BID 09/30/24 09/30/24 tablet,extended release 24 hr mupirocin 2 % topical ointment 1 applic topical DAILY 09/30/24 09/30/24 quetiapine 200 mg tablet 200 mg PO HS 09/30/24 09/30/24 sodium bicarbonate 650 mg tablet 650 mg PO BID 09/30/24 09/30/24 Previous Rx's ?Medication ?Instructions ?Recorded finasteride 5 mg tablet 5 mg PO DAILY #90 tabs 08/18/21 mirabegron 25 mg tablet,extended 25 mg PO DAILY #90 tabs 03/11/23 release 24 hr (Myrbetriq) ketoconazole 2 % topical cream 1 applic topical DAILY 3 months 04/27/23 #60 grams acetaminophen 500 mg tablet 1,000 mg (2 x 500 mg) PO TID PRN 05/25/23 (Acetaminophen Extra Strength) PRN pain #30 tabs diltiazem HCl 120 mg 120 mg PO DAILY #90 caps 07/26/24 capsule,extended release 24 hr nitroglycerin 0.4 mg sublingual 0.4 mg sublingual Q5 MIN PRN X3 07/26/24 tablet PRN #12 tabs Allergies Allergy/AdvReac Type Severity Reaction Status Date / Time amoxicillin Allergy Severe breathing Verified 09/30/24 16:46 difficuty and vomiting Penicillins Allergy Intermediate Skin Rash Verified 09/30/24 16:46 sulfamethoxazole (From Allergy Intermediate Skin Rash Verified 09/30/24 16:46 Bactrim) trimethoprim (From Bactrim) Allergy Intermediate Skin Rash Verified 09/30/24 16:46 bacitracin AdvReac Severe Skin Rash Verified 09/30/24 16:46 oxycodone HCl (From Percocet) AdvReac Severe Contraindic Verified 09/30/24 16:46 ated oxycodone terephthalate AdvReac Severe Contraindic Verified 09/30/24 16:46 (From Percodan) ated atorvastatin AdvReac Intermediate Other (See Verified 09/30/24 16:46 Comment) rosuvastatin (From Crestor) AdvReac Intermediate Other (See Verified 09/30/24 16:46 Comment) General Stated Complaint: Nausea/Vomit/Diar MADELIN: 3 Review of Systems All systems reviewed & are unremarkable except as noted in HPI and below Exam Narrative Exam Narrative: GENERAL APPEARANCE: Well-nourished, toxic, awake and alert, atraumatic, moderate acute distress. SKIN: Warm, pink, diaphoretic, intact, without rashes/lesions/ulcerations. HEAD: Normocephalic, atraumatic, normal hair distribution for gender/age. EYES: Normal conjunctiva, no exudates on lids/lashes. ENT: Nares patent, no circumoral cyanosis, no facial swelling NECK: Supple, trachea midline, painless cervical ROM. LUNGS/CHEST: Lungs -question right base diminished, non-labored respirations, normal A/P diameter, symmetrical expansion, no chest wall deformity HEART (CV/PV): Regular rate and rhythm without murmur, no peripheral edema, no JVD active retching. ABDOMEN: Soft, non-distended, no guarding, left-sided abdominal tenderness, no rebound tenderness, no CVA tenderness to percussion on left side. MSK: Normal ROM, no swelling/deformity to bilateral UEs or LEs, moving all extremities without weakness, no cyanosis, spine midline without tenderness, normal curvature. NEURO: Mental Status AAOx4 - alert to person, place, time, events No facial droop, no forehead involvement. Motor: No focal weakness - strength 5/5 in bilateral UEs and LEs, proximal and distal, symmetric. Sensory: sensation intact to light touch globally. Gait normal: patient ambulated without ataxia into ED room. PSYCH: euthymic, cooperative, pleasant, appropriate speech Course Vital Signs Vital signs: Vital Signs Temperature 36.6 C 09/30/24 16:42 Pulse 106 H 09/30/24 16:42 Respiratory Rate 18 09/30/24 16:42 Blood Pressure 176/100 H 09/30/24 16:42 Pulse Oximetry 95 09/30/24 16:42 Temperature 36.6 C 09/30/24 16:42 Temperature Source Oral 09/30/24 16:42 Pulse 106 H 09/30/24 16:42 Respiratory Rate 18 09/30/24 16:42 Blood Pressure 176/100 H 09/30/24 16:42 Blood Pressure Position Sitting 09/30/24 16:42 Pulse Oximetry 95 09/30/24 16:42 Oxygen Delivery Method Room Air 09/30/24 16:42 Oxygen Flow Rate 0 09/30/24 16:42 Medical Decision Making This dictation utilizes [id number] dictation software and may contain unedited grammatical errors. 74 year-old male presents to ED today by POV/ambulating with his with a chief complaint of intractable nausea/vomiting, retching, feeling feverish, coughing with irritation after being discharged from [facility] last night. He was transferred there last week for emergent L ureteral stent due to L infected kidney stone, and had an erythematous possible scrotum infection as well, currently on Cipro but threw his dose up today. Quality described as feels feverish, coughing, short of breath, feels lung irritation worse with coughing, no radiation to near syncope, overt chest pain, endorses L sided abdominal pain, and dribbling urine. Severity is described as moderate. Palliating factors include nothing specific attempted. Provoking factors include nothing specific. Events leading up to the incident/Associated Symptoms: Per his , [facility] team wanted the patient to recover at rehab, but she insisted that she could take care of him at home. Patients' medical history: History of chronic subdural hematoma and TBI, atypical chest pain, alcohol abuse, ataxia, migraine, known MRSA colonization, history of deep vein thrombosis, recent surgery of left ureteral stenting, type 2 diabetes mellitus with peripheral neuropathy, chronic venous insufficiency, hypertension. Family and social history: Recent hospitalization, was brought home last night, denies EtOH. Pertinent exam findings / vital signs include question right base diminished, regular rate and rhythm, left-sided abdominal tenderness without rebound tenderness, no left-sided CVA tenderness to percussion, active retching, active cough, scrotum not erythematous, benign appearing, he is dribbling urine actively. Differential / pathologies of concern include pneumonia, atelectasis, continuing infection of the left ureter/kidney, UTI, groin infection, PE less likely. Diagnostic studies of: - CBC, CMP, lactate, magnesium, lipase, procalcitonin, UA, PCR respiratory swab, chest x-ray, blood cultures. - Chest x-ray shows no active pulmonary disease - CBC shows no leukocytosis, shows mild chronic anemia, immature granulocytes 1.1% question left shift - CMP shows significant elevated creatinine but improved from prior values at 2.3, his GFR inhibits any contrast studies - Magnesium within normal limits - Lipase negative - Lactate and procalcitonin negative-do not suspect sepsis - His initial EKG was performed for QTc check for administration of antiemetic, due to his retching showed a very mild submillimeter ST depression in V2 - CT ABD/Pelvis wo contrast shows some fat stranding around L ureter, not unexpected with recent instrumentation. Interventions of: -Given 324mg ASA, 0.4 SL nitro, and 2mg IV morphine at onset of chest pain, as well as 1g Tylenol earlier in visit. -Additional morphine dose q60min 2214 -Around 1944 he reported pain in his chest- a repeat EKG was ordered which showed some more pronounced ST depression in V2, and more diffuse sub-mm ST depressions- I reflexed troponins at this point, and initial troponin resulted at 235- likely having NSTEMI. Patient states he has been feeling this way since he got home last night, but equated it to lung pain from his coughing and retching. I tried to get a more detailed history of this lung pain, but the patient states he cannot accurately state exactly when it started as it was more retching and vomiting was his concern, states he has a TBI. Consulting with [facility] Cardiology ~2200 for possible transfer, as patient was discharged from there last night as well. Repeat troponin resulted 264, initiated ACS protocol heparin. -Spoke with [facility] Cardiology @ Dr. Duenas @ [id number]. Discussed NSTEMI vs significant demand ischemia, accepts for transfer, listing for tomorrow for NSTEMI, likely will need Nuc Stress Test prior to cath. Recommends stopping heparin due to patients prior subdural history. Substitute for nitro drip, give all home meds, HOLD diltiazem. Perform posterior EKG- if no STEMI, do not need to inform [facility]. Accepting physician Dr. Bales. They do recommend restarting heparin if he becomes unstable with active chest pain on nitro drip, and no response to morphine. Re-consult at that time. -Consulted with Dr. Knox @ [phone]- will admit to ICU here while awaiting [facility] bed. ED Course/Assessment/Plan: 74-year-old male with cardiac history and recent transfer to [facility] for an infected kidney stone with emergent left ureteral stent placed 5 days ago was discharged last night, his hospitalist team had recommended he go to rehab but the wanted him to come home. He began feeling bad when he arrived home last night with some vomiting and coughing, states he feels feverish, threw up his medicines today and was actively retching when he got here stating he felt feverish and had cough and shortness of breath, initially suspected he had possible atelectasis or postoperative complication of pneumonia with his toxic vital signs, respiratory symptoms, his chest x-ray showed no acute pathology, infectious workup was fairly unremarkable save for immature granulocytes 1.1% questionable left shift without leukocytosis. Later on in the visit around [address] while awaiting results of CT and x-ray he reported chest pain and I added an EKG which showed some dynamic worsening of his ST depressions, troponins were ordered and his initial troponin resulted to 35, his 1 hour repeat showed to 64, this is likely too high of an increase in the setting of recent instrumentation to the left renal system, [facility] cardiology consult was called and the patient was started on aspirin, nitroglycerin, morphine as needed and heparin ACS protocol. [facility] accepts listing for tomorrow accepting physician Dr. Bales, due to his history of subdurals recommend stopping heparin, no intervention truly needed beyond his home meds if pain is controlled without intervention, they recommend nitro drip, morphine as needed, if this is not controlling his pain they recommend considering restarting heparin, there is a question whether this is demand ischemia of a significant degree due to his generalized illness and recent surgical procedure, versus NSTEMI with his difficult historian presentation of nausea and vomiting, cough/feverish and lung pain. He does have cardiac history but also history of subdural. Excepted for admission here at [facility] while awaiting bed by Dr. Knox, patient will be placed in ICU. [facility] Consultant Dr. Oleary aware of patient's stable condition while patient is awaiting going upstairs in the ED. Disposition of Non-ST Elevation Myocardial Infarction (NSTEMI). Patient verbalized understanding of the plan and return to ED criteria and engaged in shared decision making. Medical Records Medical records reviewed: Yes I reviewed the patient's medical records. Medical records narrative: His last stress test in 2021 showed resting ECG with nondiagnostic ST-T abnormalities patient achieved 89% of. And heart rate for age had some ectopics-occasional PAC and a rare PVC no significant ST segment changes noted Imaging Data Radiologic Study: Attestation: I personally reviewed and interpreted this imaging study as follows: Imaging: X-Ray Radiologist's impression: Exam: CT Abdomen And Pelvis Without Contrast Exam date and time: 09/30/2024 8:00 PM Age: 74 years old Clinical indication: Other: L ureteral stent placed 5 days, post-op fever TECHNIQUE: Imaging protocol: Computed tomography of the abdomen and pelvis without contrast. COMPARISON: CT ABDOMEN PELVIS WO 09/23/2024 1:33 PM FINDINGS: Coronary arteries: There are coronary artery calcifications. There is bibasilar atelectasis. Liver: Mild hepatomegaly. Gallbladder and biliary ducts: Focal mild calcification of the gallbladder anterior wall. Pancreas: Normal. No ductal dilation. Spleen: Normal. No splenomegaly. Adrenal glands: Normal. No mass. Kidneys and ureters: Mild cortical thinning of the right kidney. There is a 2.6 cm cyst in the medial right lower pole kidney. There is a double-J left ureteral stent in place which is in the satisfactory position. Stomach and bowel: Unremarkable. No obstruction. No mucosal thickening. Appendix: No evidence of appendicitis. Intraperitoneal space: Unremarkable. No free air. No significant fluid collection. Vasculature: Unremarkable. No abdominal aortic aneurysm. Lymph nodes: Unremarkable. No enlarged lymph nodes. Urinary bladder: Urinary bladder is under distended with mild mucosal thickening. Mild stranding adjacent to the left ureter. There is no hydroureteronephrosis. Reproductive: Unremarkable as visualized. Bones/joints: There is a compression fracture of T12 with mild loss of height, likely old, unchanged. Disc degenerative changes with moderate loss of disc height at L5-S1 and [id number] loss of disc height at L4-L5. Soft tissues: Small umbilical hernia. IMPRESSION: 1. Stent in the left ureter which is in the satisfactory position. There is no hydroureteronephrosis. 2. Mild stranding adjacent to the left ureter may represent urine tract infection. Please correlate with urinalysis. Additionally, mild thickening of the urinary bladder wall suspected. 3. Multiple additional chronic non emergent findings are stable. Dictated and Authenticated by: Davide Templeton MD. Radiologic Study #2: Attestation: I personally reviewed and interpreted this imaging study as follows: Imaging: X-Ray Radiologist's impression: Exam: XR Chest Exam date and time: 09/30/2024 8:08 PM Age: 74 years old Clinical indication: Other: Cough, post-op x5 days TECHNIQUE: Imaging protocol: Radiologic exam of the chest. Views: 2 views. COMPARISON: CT THORAX ABD/PEL CTA 07/30/2024 8:20 PM FINDINGS: Lungs: There is bibasilar atelectasis. Mild scarring atelectasis in the right lower lung.. No consolidation. Pleural spaces: Unremarkable. No pleural effusion. No pneumothorax. Heart/Mediastinum: Cardiac silhouette at the upper limits of normal in size. Diaphragm: Mild elevation of the left hemidiaphragm. Bones/joints: There are median sternotomy wires. IMPRESSION: No active pulmonary disease. Dictated and Authenticated by: Davide Templeton MD. Lab Data Lab results reviewed: Yes I reviewed the patient's lab results. Labs: 09/30/24 18:48 Blood Blood Culture - Pending 09/30/24 18:12 Blood Blood Culture - Pending Laboratory Tests Range/Units 09/30/24 09/30/24 09/30/24 17:35 18:12 18:31 WBC (4.4-10.8) 10^3/uL 10.08 RBC (4.36-5.78) 10^6/uL 4.31 L Hgb (13.5-17.5) g/dL 13.0 L Hct (40.0-50.0) % 39.0 L MCV (80-95) fL 91 MCH (27.0-33.0) pg 30.2 MCHC (32.0-36.0) % 33.3 RDW (11.8-14.1) % 14.3 H Plt Count (130-400) 10^3/uL 207 MPV (8.0-11.0) fL 8.5 Immature Gran % % 1.1 Neutrophils % % 88.1 Lymphocytes % % 2.8 Monocytes % % 7.4 Eosinophils % % 0.2 Basophils % % 0.4 Nucleated RBC % (0.0-0.3) % 0.0 Absolute Neutrophils (1.2-6.7) 10^3/uL 8.88 H Absolute Lymphocytes (1.2-3.4) 10^3/uL 0.28 L Absolute Monocytes (0.1-0.8) 10^3/uL 0.75 Absolute Eosinophils (0.0-0.7) 10^3/uL 0.02 Absolute Basophils (0.0-0.2) 10^3/uL 0.04 VBG Lactate (<or=2.0) mmol/L 1.9 Sodium (136-145) mmol/L 131 L Potassium (3.5-5.1) mmol/L 4.8 Chloride (98-107) mmol/L 98 Carbon Dioxide (21.0-32.0) mmol/L 21.9 Anion Gap (3-11) mmol/L 11.1 H BUN (7-18) mg/dL 28 H Creatinine (0.70-1.30) mg/dL 2.3 H Est GFR (CKD-EPI 2020) (mL/min/1.73m2) 28.89 Glucose (74-106) mg/dL 267 H Calcium (8.5-10.1) mg/dL 9.6 Magnesium (1.8-2.4) mg/dL 2.3 Total Bilirubin (0.2-1.0) mg/dL 0.5 AST (15-37) U/L 20 ALT (16-63) U/L 29 Alkaline Phosphatase (46-116) U/L 101 Troponin I (<or=76) ng/L Total Protein (6.4-8.2) g/dL 8.1 Albumin (3.4-5.0) g/dL 4.1 Lipase (<78) U/L 73 Procalcitonin ng/mL < 0.10 Urine Color (Yellow) Yellow Urine Clarity (Clear) Clear Urine pH (5-8) 5.5 Ur Specific [place] (1.005-1.025) 1.020 Urine Protein (Neg-Trace) mg/dL >=300 H Urine Ketones (Negative) mg/dL Negative Urine Blood (Negative) Large H Urine Nitrite (Negative) Negative Urine Bilirubin (Negative) Negative Urine Urobilinogen (Up to 0.2) mg/dL 0.2 Ur Leukocyte Esterase (Negative) Negative Urine RBC (0-2) HPF 10-20 H Urine WBC (0-5) HPF 10-20 H Ur Epithelial Cells (Negative) HPF Moderate Urine Crystals (Negative) HPF Negative Urine Bacteria (Negative) HPF Negative Urine Casts (Negative) LPF Negative Urine Mucus (Negative) Negative Urine Other (Negative) Many Yeast Ur Culture Indicated? No/Sq. Contamination Urine Glucose (Negative) mg/dL 500 H COVID-19 Source Nasopharynx SARS-CoV-2 (PCR) (Negative) Negative Influenza Type A (PCR) (Negative) Negative Influenza Type B (PCR) (Negative) Negative RSV (PCR) (Negative) Negative Range/Units 09/30/24 09/30/24 20:43 21:45 WBC (4.4-10.8) 10^3/uL RBC (4.36-5.78) 10^6/uL Hgb (13.5-17.5) g/dL Hct (40.0-50.0) % MCV (80-95) fL MCH (27.0-33.0) pg MCHC (32.0-36.0) % RDW (11.8-14.1) % Plt Count (130-400) 10^3/uL MPV (8.0-11.0) fL Immature Gran % % Neutrophils % % Lymphocytes % % Monocytes % % Eosinophils % % Basophils % % Nucleated RBC % (0.0-0.3) % Absolute Neutrophils (1.2-6.7) 10^3/uL Absolute Lymphocytes (1.2-3.4) 10^3/uL Absolute Monocytes (0.1-0.8) 10^3/uL Absolute Eosinophils (0.0-0.7) 10^3/uL Absolute Basophils (0.0-0.2) 10^3/uL VBG Lactate (<or=2.0) mmol/L Sodium (136-145) mmol/L Potassium (3.5-5.1) mmol/L Chloride (98-107) mmol/L Carbon Dioxide (21.0-32.0) mmol/L Anion Gap (3-11) mmol/L BUN (7-18) mg/dL Creatinine (0.70-1.30) mg/dL Est GFR (CKD-EPI 2020) (mL/min/1.73m2) Glucose (74-106) mg/dL Calcium (8.5-10.1) mg/dL Magnesium (1.8-2.4) mg/dL Total Bilirubin (0.2-1.0) mg/dL AST (15-37) U/L ALT (16-63) U/L Alkaline Phosphatase (46-116) U/L Troponin I (<or=76) ng/L 235 H* 264 H* Total Protein (6.4-8.2) g/dL Albumin (3.4-5.0) g/dL Lipase (<78) U/L Procalcitonin ng/mL Urine Color (Yellow) Urine Clarity (Clear) Urine pH (5-8) Ur Specific [place] (1.005-1.025) Urine Protein (Neg-Trace) mg/dL Urine Ketones (Negative) mg/dL Urine Blood (Negative) Urine Nitrite (Negative) Urine Bilirubin (Negative) Urine Urobilinogen (Up to 0.2) mg/dL Ur Leukocyte Esterase (Negative) Urine RBC (0-2) HPF Urine WBC (0-5) HPF Ur Epithelial Cells (Negative) HPF Urine Crystals (Negative) HPF Urine Bacteria (Negative) HPF Urine Casts (Negative) LPF Urine Mucus (Negative) Urine Other (Negative) Ur Culture Indicated? Urine Glucose (Negative) mg/dL COVID-19 Source SARS-CoV-2 (PCR) (Negative) Influenza Type A (PCR) (Negative) Influenza Type B (PCR) (Negative) RSV (PCR) (Negative) Quality:SDOH Health Related Social Needs: No Data to Display PFSH All Active Problems (Updated 09/30/24 @ 21:32 by ROSAURA Chacon) Non-ST elevation VT (NSTEMI) (Acute) Mid back pain (Acute) Pressure ulcer of buttock (Acute)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
--- NOTE | 2024-09-30 17:07 | DI.RAD_ITS ---
Exam(s) XR CHEST 2V PA LATERAL EXAM: XR CHEST 2V PA LATERAL CLINICAL HISTORY: cough, post-op x5 days TECHNIQUE: 2D digital imaging was performed. Two views. COMPARISON: CT CT THORAX ABD/PEL CTA from 07/30/2024 FINDINGS: HEART: Upper limits of normal.. Status post CABG. Aorta: Tortuous. PULMONARY VASCULATURE: Normal. MEDIASTINUM: Unremarkable. LUNGS: Clear. PLEURAL SPACE: No pleural effusion or pneumothorax. BONE:Sternal wires. Stable T12 compression fracture. SOFT TISSUES: Unremarkable. IMPRESSION: No acute abnormality. DATA REPOSITORY: RADIATION DOSE DELIVERED:
--- NOTE | 2024-09-30 17:07 | DI.CT_ITS ---
Exam(s) CT ABDOMEN PELVIS WO EXAM: CT ABDOMEN PELVIS WO CLINICAL HISTORY: L ureteral stent placed 5 days, post-op fever. TECHNIQUE: Imaging Protocol: Axial computed tomography images with coronal and sagittal reformatted images were created and reviewed. Oral: / no COMPARISON: CT CT ABDOMEN PELVIS WO from 09/23/2024 FINDINGS: Lung Bases: No acute findings. Liver: Mildly enlarged. Normal density. No suspicious mass. Gallbladder and biliary tract: Mild calcification at the gallbladder wall. No biliary dilation. Pancreas: Normal density. No abnormal calcifications or inflammatory process. Spleen: Normal. Kidneys: Normal size, contour and axis. No radiodense stones. There is a left ureteral stent now in place which appears in satisfactory position. Mild stranding around the ureter. No findings to sugg est ureteral injury.. No suspicious masses seen. Adrenal glands: No masses seen. Lymph nodes: Within normal limits. Vasculature: Abdominal aorta non-dilated. Soft tissues: Small fatty umbilical hernia. Bladder: Lower pigtail of ureteral stent noted within bladder. Small bladder volume. Question of wa ll thickening versus under distension. Bowel: No obstruction or bowel wall thickening. Peritoneal cavity: No ascites. No focal collection. No mesenteric inflammatory response. Reproductive organs: Unremarkable. Bones: Mild T12 compression fracture again noted. IMPRESSION: Status post placement of left ureteral stent which appears in satisfactory position. There is bladde r wall thickening which may be related to cystitis versus under distension. Clinical correlation rec ommended. RADIATION DOSE DELIVERED: Total DLP DATA REPOSITORY: All CT scans at this facility are submitted to the National Radiology Data Registry (NRDR) Dose Index Registry (DIR) with the [employer] (ACR). RADIATION OPTIMIZATION: All CT scans at this facility use at least one of these dose optimization te chniques: automated exposure control; mA and/or kV adjustment per patient size (includes targeted exa ms where dose is matched to clinical indication); or iterative reconstruction.
--- NOTE | 2024-09-30 17:17 | NUR.NOTE ---
Nursing Note: Pt discharged from [facility] [place] yesterday, provided discharge paperwork but states the discharge med list from that paperwork is not correct. She provided a discharge summary from last provider visit and only new prescription not on that list included the sodium bicarbonate, benzonatate, and cipro which were added to the med list here.
[2024-09-30 17:45] LABS: Bilirubin Negative (Negative); Blood Large (Negative); Clarity Clear (Clear); Glucose 500 mg/dL (Negative); Ketones Negative (Negative); Leukocyte Esterase Negative (Negative); Nitrite Negative (Negative); Urobilinogen 0.2 mg/dL (Up to 0.2); pH 5.5 (5-8)
[2024-09-30 18:01] LABS: Bacteria Negative HPF (Negative); C & S Indicated? No/Sq. Contamination; Casts Negative LPF (Negative); Crystals Negative HPF (Negative); Epithelial Cells Moderate HPF (Negative); Mucus Negative (Negative)
[2024-09-30] MEDS: Prochlorperazine 10 MG/2 ML VIAL 5 MG IVP (18:21)
[2024-09-30] MEDS: ACETAMINOPHEN 1,000 MG/100 ML BAG 400 MG IVPB (18:22)
[2024-09-30] MEDS: Normal Saline 1,000 ML 1000 ML IV (18:22)
[2024-09-30 18:23] LABS: Lactate 1.9 mmol/L (<or=2.0)
[2024-09-30 18:24] LABS: Abs Immature Grans 0.11 10^3/uL (0.0-0.06); Absolute Basophil Count 0.04 10^3/uL (0.0-0.2); Absolute Eosinophil Count 0.02 10^3/uL (0.0-0.7); Absolute Lymphocyte Count 0.28 10^3/uL (1.2-3.4); Absolute Monocyte Count 0.75 10^3/uL (0.1-0.8); Absolute Neutrophil Count 8.88 10^3/uL (1.2-6.7); Basophils % 0.4 %; Eosinophils % 0.2 %; Immature Grans % 1.1 %; Lymphocytes % 2.8 %; MCH 30.2 pg (27.0-33.0); MCHC 33.3 % (32.0-36.0); MCV 91 fL (80-95); MPV 8.5 fL (8.0-11.0); Monocytes % 7.4 %; Neutrophils % 88.1 %; Platelet Count 207 10^3/uL (130-400); RBC 4.31 10^6/uL (4.36-5.78); RDW 14.3 % (11.8-14.1); RDW-SD 47.4 fL; WBC 10.08 10^3/uL (4.4-10.8)
[2024-09-30 18:52] LABS: Magnesium 2.3 mg/dL (1.8-2.4)
[2024-09-30 18:55] LABS: ALT 29 U/L (16-63); AST 20 U/L (15-37); Albumin 4.1 g/dL (3.4-5.0); Alkaline Phosphatase 101 U/L (46-116); Anion Gap 11.1 mmol/L (3-11); BUN 28 mg/dL (7-18); Bilirubin, Total 0.5 mg/dL (0.2-1.0); CO2 21.9 mmol/L (21.0-32.0); CREATININE 2.3 mg/dL (0.70-1.30); Calcium 9.6 mg/dL (8.5-10.1); Chloride 98 mmol/L (98-107); Estimated GFR 28.89 (mL/min/1.73m2); Glucose 267 mg/dL (74-106); Lipase 73 U/L (<78); Potassium 4.8 mmol/L (3.5-5.1); Sodium 131 mmol/L (136-145); Total Protein 8.1 g/dL (6.4-8.2)
[2024-09-30] MEDS: CIPROFLOXACIN 200 MG/100 ML BAG 100 MG IVPB (19:00)
[2024-09-30 19:24] LABS: COVID-19 PCR Negative (Negative); Influenza A PCR Negative (Negative); Influenza B PCR Negative (Negative); RSV PCR Negative (Negative); Source Nasopharynx
--- NOTE | 2024-09-30 19:30 | RT.EKG_ITS ---
APPROVED REPORT Exam: Resting ECG Reason for Exam: chest pain Patient Location: E HR:99 bpm ECG Measurements Heart Rate 99 AXIS SD 149 P 51 QRSd 94 QRS 17 QT 334 T 213 QTc 424 Conclusion Sinus rhythm...normal P axis, V-rate 60- 99 Atrial premature complex...SV complex w/ short R-R interval Repol abnrm suggests ischemia, anterolateral...ST dep, T neg, I aVL V2-V6
[2024-09-30 19:40] LABS: Procalcitonin < 0.10 ng/mL
--- NOTE | 2024-09-30 21:03 | DI.VRAD_ITS ---
PROCEDURE INFORMATION: Exam: CT Abdomen And Pelvis Without Contrast Exam date and time: 09/30/2024 8:00 PM Age: 74 years old Clinical indication: Other: L ureteral stent placed 5 days, post-op fever TECHNIQUE: Imaging protocol: Computed tomography of the abdomen and pelvis without contrast. COMPARISON: CT ABDOMEN PELVIS WO 09/23/2024 1:33 PM FINDINGS: Coronary arteries: There are coronary artery calcifications. There is bibasilar atelectasis. Liver: Mild hepatomegaly. Gallbladder and biliary ducts: Focal mild calcification of the gallbladder anterior wall. Pancreas: Normal. No ductal dilation. Spleen: Normal. No splenomegaly. Adrenal glands: Normal. No mass. Kidneys and ureters: Mild cortical thinning of the right kidney. There is a 2.6 cm cyst in the medial right lower pole kidney. There is a double-J left ureteral stent in place which is in the satisfactory position. Stomach and bowel: Unremarkable. No obstruction. No mucosal thickening. Appendix: No evidence of appendicitis. Intraperitoneal space: Unremarkable. No free air. No significant fluid collection. Vasculature: Unremarkable. No abdominal aortic aneurysm. Lymph nodes: Unremarkable. No enlarged lymph nodes. Urinary bladder: Urinary bladder is under distended with mild mucosal thickening. Mild stranding adjacent to the left ureter. There is no hydroureteronephrosis. Reproductive: Unremarkable as visualized. Bones/joints: There is a compression fracture of T12 with mild loss of height, likely old, unchanged. Disc degenerative changes with moderate loss of disc height at L5-S1 and [id number] loss of disc height at L4-L5. Soft tissues: Small umbilical hernia. IMPRESSION: 1. Stent in the left ureter which is in the satisfactory position. There is no hydroureteronephrosis. 2. Mild stranding adjacent to the left ureter may represent urine tract infection. Please correlate with urinalysis. Additionally, mild thickening of the urinary bladder wall suspected. 3. Multiple additional chronic non emergent findings are stable. Dictated and Authenticated by: Davide Templeton MD. Orderin Mauricio White MD
--- NOTE | 2024-09-30 21:06 | DI.VRAD_ITS ---
PROCEDURE INFORMATION: Exam: XR Chest Exam date and time: 09/30/2024 8:08 PM Age: 74 years old Clinical indication: Other: Cough, post-op x5 days TECHNIQUE: Imaging protocol: Radiologic exam of the chest. Views: 2 views. COMPARISON: CT THORAX ABD/PEL CTA 07/30/2024 8:20 PM FINDINGS: Lungs: There is bibasilar atelectasis. Mild scarring atelectasis in the right lower lung.. No consolidation. Pleural spaces: Unremarkable. No pleural effusion. No pneumothorax. Heart/Mediastinum: Cardiac silhouette at the upper limits of normal in size. Diaphragm: Mild elevation of the left hemidiaphragm. Bones/joints: There are median sternotomy wires. IMPRESSION: No active pulmonary disease. Dictated and Authenticated by: Davide Templeton MD. Orderin Mauricio White MD
[2024-09-30 21:14] LABS: Troponin I 235 ng/L (<or=76)
[2024-09-30] MEDS: Aspirin 81 MG CHEW 324 MG CH (21:20)
[2024-09-30] MEDS: MORPHine 10 MG/ML VIAL 2 MG IVP ×2 (21:42→22:30)
[2024-09-30] MEDS: nitroGLYcerin 0.4 MG TAB (21:47)
[2024-09-30 22:29] LABS: Troponin I 264 ng/L (<or=76)
[2024-09-30] MEDS: Heparin in 0.45% NaCl 25,000 UNIT/250 ML BAG 10 UNIT IVINF (22:37)
[2024-09-30 22:43] LABS: MRSA PCR Negative (Negative)
[2024-09-30 22:48] LABS: NT-proBNP 4866 pg/mL (<300)
[2024-09-30 22:58] LABS: PTT Activated 27.7 sec (20.6-30.2); Prothrombin Time 10.3 sec (9.1-11.1)
--- NOTE | 2024-09-30 23:15 | RT.EKG_ITS ---
APPROVED REPORT Exam: Resting ECG Reason for Exam: posterior EKG Patient Location: E HR:99 bpm ECG Measurements Heart Rate 99 AXIS TX 134 P 19 QRSd 80 QRS 20 QT 284 T [id number] QTc 363 Conclusion Sinus rhythm...normal P axis, V-rate 60- 99 Atrial premature complexes...SV complexes w/ short R-R intvls Low voltage, precordial leads...precordial leads <1.0mV Nonspecific T abnrm, anterolateral leads...T <-0.10mV, I aVL V2-V6
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
[2024-10-01] VITALS (15 sets, daily range): BP systolic 140–197; BP diastolic 81–95; PULSE 90–114; RESP 16–33; TEMP 36.4; O2SAT 96–99
[2024-10-01] MEDS: nitroGLYcerin in D5W 50 MG/250 ML BTL IV (00:08)
[2024-10-01 01:01] LABS: Troponin I 375 ng/L (<or=76)
[2024-10-01] MEDS: Ondansetron 4 MG/2 ML VIAL IVP ×2 (02:13→06:50)
[2024-10-01] MEDS: Milk of Magnesia 30 ML CUP PO (02:27)
[2024-10-01] MEDS: Docusate Sodium 100 MG CAP PO (02:27)
[2024-10-01] MEDS: Polyethylene Glycol 3350 17 GM PACKET PO (02:27)
--- NOTE | 2024-10-01 03:00 | W.PC.ACHO ---
Registration Status: Primary Language: Preferred Language: ED Information & Data Chief Complaint Nausea/Vomit/Diar 09/30/24 17:30 Chief Complaint Nausea/Vomit/Diar 09/30/24 17:01 Triage Note Vomiting since last night 09/30/24 16:42 unable to keep anything down including ABX, left abd pain [place] [facility] [place] [facility] [place] for infected kidney stone had stents placed during stay Medical / Surgical History (Last Reviewed 09/14/24 @ 14:56 by Shell Chance, RN) Chest pain Traumatic brain injury Chronic subdural hematoma Partial tear of left rotator cuff Atypical chest pain Sensory hearing loss, bilateral (04/09/14) Hypertrophy of nasal turbinates (08/05/15) Deviated nasal septum (08/05/15) Trochanteric bursitis, right hip Tendinitis involving hip abductors Acute serous otitis media of left ear Lumbar contusion Blunt head trauma BABS (acute kidney injury) Lipoma of lower extremity Alcohol abuse Tinea pedis History of subdural hematoma Hip joint pain Callus of foot Pain, joint, shoulder region, left Ataxia Left cervical radiculopathy Cecal volvulus Viral URI with cough UTI (urinary tract infection) Rhinorrhea Knee pain, right Rathke's pouch cyst Hx of traumatic brain injury Migraine headache Recurrent UTI Constipation, chronic Pain in joint of right foot Left rib fracture Contusion of right hip Head trauma Right sided weakness Urethral stricture (08/20/15) Postnasal drip (05/13/15) H/O alcohol abuse MRSA infection Depression Colon polyps Urethral stricture Chronic low back pain Diastasis recti Headaches due to 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 Hx of deep venous thrombosis (Last Reviewed 09/14/24 @ 14:56 by Shell Chance, KIAN) History of cardiac cath History of colonoscopy with polypectomy (~09/24/22) facial lesion removal electroconvulsive therapy Repair of umbilical hernia Repair of inguinal hernia (08/05/17) Colonoscopy - MAC Extraction of cataract Coronary Artery Bypass Gaft (CABG) Appendectomy (06/01/16) Most Recent Vital Signs Temperature 36.4 C L 10/01/24 01:31 Temperature Source Temporal Artery Scan 10/01/24 01:31 Pulse 92 H 10/01/24 00:30 Pulse 93 H 10/01/24 00:30 Respiratory Rate 30 H 10/01/24 00:30 Respiratory Effort Normal 10/01/24 01:31 Respiratory Depth Normal 10/01/24 01:31 Respiratory Pattern Normal 10/01/24 01:31 Blood Pressure 197/88 H 10/01/24 00:16 Blood Pressure Mean 124 10/01/24 00:16 Blood Pressure Position Sitting 09/30/24 16:42 Pulse Oximetry 98 10/01/24 00:30 Oxygen Delivery Method Room Air 09/30/24 16:42 Oxygen Flow Rate 0 09/30/24 16:42 Pain Level 6 10/01/24 01:31 Allergies amoxicillin Allergy (Severe, Verified 09/30/24 16:46) breathing difficuty and vomiting Penicillins Allergy (Intermediate, Verified 09/30/24 16:46) Skin Rash sulfamethoxazole (From Bactrim) Allergy (Intermediate, Verified 09/30/24 16:46) Skin Rash trimethoprim (From Bactrim) Allergy (Intermediate, Verified 09/30/24 16:46) Skin Rash bacitracin Adverse Reaction (Severe, Verified 09/30/24 16:46) Skin Rash oxycodone HCl (From Percocet) Adverse Reaction (Severe, Verified 09/30/24 16:46) Contraindicated stares into space oxycodone terephthalate (From Percodan) Adverse Reaction (Severe, Verified 09/30/24 16:46) Contraindicated stares into space atorvastatin Adverse Reaction (Intermediate, Verified 09/30/24 16:46) Other (See Comment) Weakness/falls rosuvastatin (From Crestor) Adverse Reaction (Intermediate, Verified 09/30/24 16:46) Other (See Comment) Weakness/falls Precautions Isolation Standard precaution 09/30/24 17:30 Active Medications Generic Name Dose Route Start Last Admin Trade Name Freq PRN Reason Stop Dose Admin Docusate Sodium 100 mg 10/01/24 01:06 10/01/24 02:27 Docusate Sodium 100 Mg Cap PO 100 mg TID PRN PRN Administration Magnesium Hydroxide 30 ml 10/01/24 01:06 10/01/24 02:27 Milk Of Magnesia 30 Ml Cup PO 30 ml DAILY PRN PRN Administration Ondansetron HCl 4 mg 10/01/24 02:05 10/01/24 02:13 Ondansetron 4 Mg/2 Ml Vial IVP 4 mg Q4H PRN PRN Administration Polyethylene Glycol 17 gm 10/01/24 01:06 10/01/24 02:27 Polyethylene Glycol 3350 17 Gm Packet PO 17 gm DAILY PRN PRN Administration Constipation IV IV Catheter Type [Right Saline Lock Antecubital] IV Catheter Type [Left Peripheral IV Antecubital] IV Catheter Gauge [Right 20 Antecubital] IV Catheter Gauge [Left 18 Antecubital] Diet Orders Category Date Time Status Nothing Per Oral [DIET] Nutrition 10/01/24 Breakfast Active Diagnostics 10/01/24 10/01/24 09/30/24 Range/Units 05:35 00:31 22:37 WBC Pending (4.4-10.8) 10^3/uL RBC Pending (4.36-5.78) 10^6/uL Hgb Pending (13.5-17.5) g/dL Hct Pending (40.0-50.0) % MCV Pending (80-95) fL MCH Pending (27.0-33.0) pg MCHC Pending (32.0-36.0) % RDW Pending (11.8-14.1) % Plt Count Pending (130-400) 10^3/uL MPV Pending (8.0-11.0) fL Immature Gran % % Neutrophils % % Lymphocytes % % Monocytes % % Eosinophils % % Basophils % % Nucleated RBC % (0.0-0.3) % Absolute Neutrophils (1.2-6.7) 10^3/uL Absolute Lymphocytes (1.2-3.4) 10^3/uL Absolute Monocytes (0.1-0.8) 10^3/uL Absolute Eosinophils (0.0-0.7) 10^3/uL Absolute Basophils (0.0-0.2) 10^3/uL PT 10.3 (9.1-11.1) sec INR 1.0 (0.9-1.1) APTT 27.7 (20.6-30.2) sec VBG Lactate (<or=2.0) mmol/L Sodium Pending (136-145) mmol/L Potassium Pending (3.5-5.1) mmol/L Chloride Pending (98-107) mmol/L Carbon Dioxide Pending (21.0-32.0) mmol/L Anion Gap Pending (3-11) mmol/L BUN Pending (7-18) mg/dL Creatinine Pending (0.70-1.30) mg/dL Est GFR (CKD-EPI 2020) Pending (mL/min/1.73m2) Glucose Pending (74-106) mg/dL Calcium Pending (8.5-10.1) mg/dL Magnesium (1.8-2.4) mg/dL Total Bilirubin (0.2-1.0) mg/dL AST (15-37) U/L ALT (16-63) U/L Alkaline Phosphatase (46-116) U/L Troponin I 375 H* (<or=76) ng/L NT-Pro-B Natriuret Pep (<300) pg/mL Total Protein (6.4-8.2) g/dL Albumin (3.4-5.0) g/dL Lipase (<78) U/L Procalcitonin ng/mL Urine Color (Yellow) Urine Clarity (Clear) Urine pH (5-8) Ur Specific Umbarger (1.005-1.025) Urine Protein (Neg-Trace) mg/dL Urine Ketones (Negative) mg/dL Urine Blood (Negative) Urine Nitrite (Negative) Urine Bilirubin (Negative) Urine Urobilinogen (Up to 0.2) mg/dL Ur Leukocyte Esterase (Negative) Urine RBC (0-2) HPF Urine WBC (0-5) HPF Ur Epithelial Cells (Negative) HPF Urine Crystals (Negative) HPF Urine Bacteria (Negative) HPF Urine Casts (Negative) LPF Urine Mucus (Negative) Urine Other (Negative) Ur Culture Indicated? Urine Glucose (Negative) mg/dL COVID-19 Source SARS-CoV-2 (PCR) (Negative) Influenza Type A (PCR) (Negative) Influenza Type B (PCR) (Negative) RSV (PCR) (Negative) MRSA (TEM-PCR) (Negative) 09/30/24 09/30/24 09/30/24 Range/Units 21:45 21:18 20:43 WBC (4.4-10.8) 10^3/uL RBC (4.36-5.78) 10^6/uL Hgb (13.5-17.5) g/dL Hct (40.0-50.0) % MCV (80-95) fL MCH (27.0-33.0) pg MCHC (32.0-36.0) % RDW (11.8-14.1) % Plt Count (130-400) 10^3/uL MPV (8.0-11.0) fL Immature Gran % % Neutrophils % % Lymphocytes % % Monocytes % % Eosinophils % % Basophils % % Nucleated RBC % (0.0-0.3) % Absolute Neutrophils (1.2-6.7) 10^3/uL Absolute Lymphocytes (1.2-3.4) 10^3/uL Absolute Monocytes (0.1-0.8) 10^3/uL Absolute Eosinophils (0.0-0.7) 10^3/uL Absolute Basophils (0.0-0.2) 10^3/uL PT (9.1-11.1) sec INR (0.9-1.1) APTT (20.6-30.2) sec VBG Lactate (<or=2.0) mmol/L Sodium (136-145) mmol/L Potassium (3.5-5.1) mmol/L Chloride (98-107) mmol/L Carbon Dioxide (21.0-32.0) mmol/L Anion Gap (3-11) mmol/L BUN (7-18) mg/dL Creatinine (0.70-1.30) mg/dL Est GFR (CKD-EPI 2020) (mL/min/1.73m2) Glucose (74-106) mg/dL Calcium (8.5-10.1) mg/dL Magnesium (1.8-2.4) mg/dL Total Bilirubin (0.2-1.0) mg/dL AST (15-37) U/L ALT (16-63) U/L Alkaline Phosphatase (46-116) U/L Troponin I 264 H* 235 H* (<or=76) ng/L NT-Pro-B Natriuret Pep 4866 H (<300) pg/mL Total Protein (6.4-8.2) g/dL Albumin (3.4-5.0) g/dL Lipase (<78) U/L Procalcitonin ng/mL Urine Color (Yellow) Urine Clarity (Clear) Urine pH (5-8) Ur Specific Umbarger (1.005-1.025) Urine Protein (Neg-Trace) mg/dL Urine Ketones (Negative) mg/dL Urine Blood (Negative) Urine Nitrite (Negative) Urine Bilirubin (Negative) Urine Urobilinogen (Up to 0.2) mg/dL Ur Leukocyte Esterase (Negative) Urine RBC (0-2) HPF Urine WBC (0-5) HPF Ur Epithelial Cells (Negative) HPF Urine Crystals (Negative) HPF Urine Bacteria (Negative) HPF Urine Casts (Negative) LPF Urine Mucus (Negative) Urine Other (Negative) Ur Culture Indicated? Urine Glucose (Negative) mg/dL COVID-19 Source SARS-CoV-2 (PCR) (Negative) Influenza Type A (PCR) (Negative) Influenza Type B (PCR) (Negative) RSV (PCR) (Negative) MRSA (TEM-PCR) Negative (Negative) 09/30/24 09/30/24 09/30/24 Range/Units 18:31 18:12 17:35 WBC 10.08 (4.4-10.8) 10^3/uL RBC 4.31 L (4.36-5.78) 10^6/uL Hgb 13.0 L (13.5-17.5) g/dL Hct 39.0 L (40.0-50.0) % MCV 91 (80-95) fL MCH 30.2 (27.0-33.0) pg MCHC 33.3 (32.0-36.0) % RDW 14.3 H (11.8-14.1) % Plt Count 207 (130-400) 10^3/uL MPV 8.5 (8.0-11.0) fL Immature Gran % 1.1 % Neutrophils % 88.1 % Lymphocytes % 2.8 % Monocytes % 7.4 % Eosinophils % 0.2 % Basophils % 0.4 % Nucleated RBC % 0.0 (0.0-0.3) % Absolute Neutrophils 8.88 H (1.2-6.7) 10^3/uL Absolute Lymphocytes 0.28 L (1.2-3.4) 10^3/uL Absolute Monocytes 0.75 (0.1-0.8) 10^3/uL Absolute Eosinophils 0.02 (0.0-0.7) 10^3/uL Absolute Basophils 0.04 (0.0-0.2) 10^3/uL PT (9.1-11.1) sec INR (0.9-1.1) APTT (20.6-30.2) sec VBG Lactate 1.9 (<or=2.0) mmol/L Sodium 131 L (136-145) mmol/L Potassium 4.8 (3.5-5.1) mmol/L Chloride 98 (98-107) mmol/L Carbon Dioxide 21.9 (21.0-32.0) mmol/L Anion Gap 11.1 H (3-11) mmol/L BUN 28 H (7-18) mg/dL Creatinine 2.3 H (0.70-1.30) mg/dL Est GFR (CKD-EPI 2020) 28.89 (mL/min/1.73m2) Glucose 267 H (74-106) mg/dL Calcium 9.6 (8.5-10.1) mg/dL Magnesium 2.3 (1.8-2.4) mg/dL Total Bilirubin 0.5 (0.2-1.0) mg/dL AST 20 (15-37) U/L ALT 29 (16-63) U/L Alkaline Phosphatase 101 (46-116) U/L Troponin I (<or=76) ng/L NT-Pro-B Natriuret Pep (<300) pg/mL Total Protein 8.1 (6.4-8.2) g/dL Albumin 4.1 (3.4-5.0) g/dL Lipase 73 (<78) U/L Procalcitonin < 0.10 ng/mL Urine Color Yellow (Yellow) Urine Clarity Clear (Clear) Urine pH 5.5 (5-8) Ur Specific Umbarger 1.020 (1.005-1.025) Urine Protein >=300 H (Neg-Trace) mg/dL Urine Ketones Negative (Negative) mg/dL Urine Blood Large H (Negative) Urine Nitrite Negative (Negative) Urine Bilirubin Negative (Negative) Urine Urobilinogen 0.2 (Up to 0.2) mg/dL Ur Leukocyte Esterase Negative (Negative) Urine RBC 10-20 H (0-2) HPF Urine WBC 10-20 H (0-5) HPF Ur Epithelial Cells Moderate (Negative) HPF Urine Crystals Negative (Negative) HPF Urine Bacteria Negative (Negative) HPF Urine Casts Negative (Negative) LPF Urine Mucus Negative (Negative) Urine Other Many Yeast (Negative) Ur Culture Indicated? No/Sq. Contamination Urine Glucose 500 H (Negative) mg/dL COVID-19 Source Nasopharynx SARS-CoV-2 (PCR) Negative (Negative) Influenza Type A (PCR) Negative (Negative) Influenza Type B (PCR) Negative (Negative) RSV (PCR) Negative (Negative) MRSA (TEM-PCR) (Negative) 09/30/24 18:48 Blood Culture - Pending Blood 09/30/24 18:12 Blood Culture - Pending Blood Intake and Output - 24 Hour Total 09/30/24 16:33 thru 10/01/24 01:48 Intake Total 1226.017 Output Total 650 Balance 576.017 Weight 89.2 kg Intake: IV 1226.017 Output: Urine 650 Other: Emesis Description Retching Undigested Food Clear/Water # Voids 2 Falls Risk Assessment History of Falls Previous History 10/01/24 01:31 Contributing Factors Unstable 10/01/24 01:31 Ambulatory Aids Independent 10/01/24 01:31 Tubes/Lines With any additional score 10/01/24 01:31 Gait Evaluation No gait disturbance 10/01/24 01:31 Cognition No cognitive impairment 10/01/24 01:31 Fall Total Score 38 10/01/24 01:31 Level of Risk Moderate Risk 10/01/24 01:31 Problems (Last Reviewed 09/14/24 @ 14:56 by Shell Chance RN) Non-ST elevation PR (NSTEMI) (Acute) 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 She provided a discharge summary from last provider visit and only new prescription not on that list included the sodium bicarbonate, benzonatate, and cipro which were added to the med list here. Initialized on 09/30/24 17:17 - END OF NOTE v v v v v v v v v Sending and/or Receiving Nurses: Please use comment section below to note any information pertinent to the patient hand-off not included above. Information / Comments: Report received from: Eneida Bailey RN
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
[2024-10-01] MEDS: Levothyroxine 50 MCG TAB PO (05:47)
[2024-10-01] MEDS: LORazepam 2 MG/ML VIAL 1 MG IVP (05:47)
--- NOTE | 2024-10-01 06:21 | W.NUTRFU ---
Date of service: 10/01/24 Time of Service: 06:22 Nutrition Note NOTE: Wt trending down since last month with ~5kg wt loss since mid-August, however this weight change also involves response to fluid changes. A1c 02/09/24 was 6.3% - home diabetes meds include 25mg empagliflozin, 200u insulin degludec HS. GFR today at 28. Total protein and albumin labs wnl.
[2024-10-01 06:37] LABS: Anion Gap 16.3 mmol/L (3-11); BUN 29 mg/dL (7-18); CO2 21.7 mmol/L (21.0-32.0); Calcium 9.6 mg/dL (8.5-10.1); Chloride 99 mmol/L (98-107); Estimated GFR 34.16 (mL/min/1.73m2); Glucose 249 mg/dL (74-106); Sodium 137 mmol/L (136-145)
[2024-10-01] MEDS: MORPHine 2 MG/ML SYR IVP (06:50)
[2024-10-01] MEDS: Normal Saline Flush 10 ML SYR IVP (06:51)
== END 2024-10-01 07:45 | disposition short-term general hospital (02) | DRG 280 ==
LOC: ER 23:37 → ICU 10-01 00:46
PROVIDERS: Admitting Provider Family Medicine; Emergency Provider Physician Assistant; PCP Family Medicine; Visit Provider Family Medicine
DX: I21.4 Non-ST elevation (NSTEMI) myocardial infarction (principal); I62.03 Nontraumatic chronic subdural hemorrhage; E11.42 Type 2 diabetes mellitus with diabetic polyneuropathy; N18.32 Chronic kidney disease, stage 3b; E11.22 Type 2 diabetes mellitus with diabetic chronic kidney disease; Z95.1 Presence of aortocoronary bypass graft; Z79.4 Long term (current) use of insulin; Z79.84 Long term (current) use of oral hypoglycemic drugs; Z95.5 Presence of coronary angioplasty implant and graft; Z79.899 Other long term (current) drug therapy; R11.2 Nausea with vomiting, unspecified; N20.0 Calculus of kidney; Z96.0 Presence of urogenital implants; K22.4 Dyskinesia of esophagus; I87.2 Venous insufficiency (chronic) (peripheral); I70.203 Unspecified atherosclerosis of native arteries of extremities, bilateral legs; G47.33 Obstructive sleep apnea (adult) (pediatric); K76.0 Fatty (change of) liver, not elsewhere classified; E55.9 Vitamin D deficiency, unspecified; K21.9 Gastro-esophageal reflux disease without esophagitis; E53.8 Deficiency of other specified B group vitamins; R29.6 Repeated falls; I25.10 Atherosclerotic heart disease of native coronary artery without angina pectoris; E78.5 Hyperlipidemia, unspecified; M47.894 Other spondylosis, thoracic region; F03.90 Unspecified dementia, unspecified severity, without behavioral disturbance, psychotic disturbance, mood disturbance, and anxiety; M47.26 Other spondylosis with radiculopathy, lumbar region
CPT/HCPCS: 00123; 36415; 80048; 80053; 83690; 84145; 85027; 87040; 87077; 87186; 87637; 87641; 93005; 96365; 96367; 96375; 96376; 99285; 71046; 74176; 81003; 81015; 83605; 83735; 83880; 84484; 85025; 85610; 85730; 93010; 99223; 99239; J0131; J0744; J0780; J1644; J2060; J2270; J2305; J2405

== ENCOUNTER 2024-10-26 11:28 | Outpatient (CLI) | payer MEDICARE, OTHER, SELFPAY ==
[2024-10-26 12:37] LABS: ALT 25 U/L (16-63); AST 23 U/L (15-37); Albumin 3.6 g/dL (3.4-5.0); Alkaline Phosphatase 113 U/L (46-116); Anion Gap 12.6 mmol/L (3-11); BUN 25 mg/dL (7-18); Bilirubin, Total 0.4 mg/dL (0.2-1.0); CO2 23.4 mmol/L (21.0-32.0); Calcium 8.6 mg/dL (8.5-10.1); Chloride 103 mmol/L (98-107); Cholesterol 191 mg/dL (<200); Estimated GFR 34.16 (mL/min/1.73m2); Glucose 124 mg/dL (74-106); HDL Cholesterol 36 mg/dL (>or=40); Potassium 3.8 mmol/L (3.5-5.1); Sodium 139 mmol/L (136-145); TSH 3.88 uIU/mL (0.36-3.74); Total Protein 7.5 g/dL (6.4-8.2); Triglyceride 439 mg/dL (<150)
[2024-10-26 13:01] LABS: LDL CHOLESTEROL 90 mg/dL (<100)
[2024-10-26 13:19] LABS: FREE T4 0.76 ng/dL (0.76-1.46)
== END 2024-10-26 11:29 | disposition home or self-care (01) ==
LOC: LBO 11:28
PROVIDERS: PCP Family Medicine; Visit Provider Internal Medicine Cardiovascular Disease
DX: E78.5 Hyperlipidemia, unspecified (principal)
CPT/HCPCS: 36415; 80053; 80061; 83721; 84439; 84443

== ENCOUNTER → 2024-11-06 13:52 | Outpatient (BNVA) | payer MEDICARE, OTHER, SELFPAY | PROVIDERS: PCP Family Medicine; Referring Provider Family Medicine; Visit Provider Podiatrist | DX: N18.32 Chronic kidney disease, stage 3b (principal); L60.3 Nail dystrophy; E11.42 Type 2 diabetes mellitus with diabetic polyneuropathy; D50.9 Iron deficiency anemia, unspecified; E53.8 Deficiency of other specified B group vitamins; G62.9 Polyneuropathy, unspecified; B35.1 Tinea unguium; R09.89 Other specified symptoms and signs involving the circulatory and respiratory systems; L65.9 Nonscarring hair loss, unspecified; R20.8 Other disturbances of skin sensation; R23.8 Other skin changes; L60.2 Onychogryphosis; L60.8 Other nail disorders | CPT/HCPCS: 11720 ==

== ENCOUNTER 2024-11-15 06:57 | Outpatient (CLI) | payer MEDICARE, OTHER, SELFPAY ==
[2024-11-15] VITALS (14 sets, daily range): BP systolic 137–163; BP diastolic 82–94; PULSE 83–87; RESP 18–26; TEMP 36.7; O2SAT 98–99
--- NOTE | 2024-11-15 06:00 | DI.RAD_ITS ---
Exam(s) XR PAIN CLINIC LUMBAR SP 2V EXAM: XR PAIN CLINIC LUMBAR SP 2V CLINICAL HISTORY: Dx: Lumbar Spondylosis. TECHNIQUE: Fluoroscopy was provided for the referring physician for guidance with performing pain cl inic injection procedure. COMPARISON: No exams were available for comparison FINDINGS: Please see procedure note for details. Fluoro time: 57.8 seconds RADIATION DOSE DELIVERED: Kar=21.5 mGy
[2024-11-15] MEDS: fentaNYL 100 MCG/2 ML VIAL IVP (08:12)
[2024-11-15] MEDS: Lactated Ringers 500 ML 80 ML IV (08:13)
--- NOTE | 2024-11-15 08:46 | PDOC.PAIN_ITS ---
Date of service: 11/15/24 Time of Service: 08:46 Pain Managment Procedure Note Procedure Note Procedure Note: PROCEDURE NOTE BILATERAL LUMBAR RADIOFREQUENCY ABLATION Date of Service: November 15, 2024 Patient:? Fredo Osman? Provider:? Sergio Valdivia DO, MPH Fredo Osman has [facility] Bilateral Lumbar Radiofrequency Ablation with the [employer] Machine.? Pre Operative Diagnosis: Lumbosacral Spondylosis without Myelopathy ICD-10 M47.816 Post Operative Diagnosis: Same Pre procedure pain; VAS= 8/10 Comments: He previously had this procedure with >12 months of >50% pain relief PROCEDURE: Radiofrequency Ablation of medial branches - bilateral L3, L4, L5 and lateral branches of bilateral S1. Fredo?was interviewed and the medical record was reviewed.? There were no medical, pharmacologic, radiographic or other structural contraindications to attempting fluoroscopically guided BILATERAL Lumbar Radiofrequency Ablation.?Risks and expected side effects as well as potential benefit of the procedure were reviewed with Fredo, and the patient's voiced concerns were addressed.? The printed consent form was signed.? Standard time-out procedure was performed. Fredo was brought into the fluoroscopy suite and positioned into the prone position on the fluoroscopy table and allowed to adjust to a position of comfort. A grounding pad was placed on the left abdomen. The sterile field was prepared using chlorhexidine preparation of the skin and sterile draping. Local anesthesia superficial and deep was provided by local infiltration of 2% lidocaine. A 17g 100 mm radiofrequency introducer needle was placed to the planned anatomic targets guided with intermittent fluoroscopy with a perpendicular approach to terminally place at the junction of the superior articular process and the transverse process of the bilateral L4, L5, the base of the sacral ala on the bilateral for the L5 medial branch nerve and the area between base of the sacral ala to the S1 foramen bilaterally. The stylets were removed and radiofrequency probes with a 4mm active tip were then inserted. Needle tip position of the probes was verified in the AP, oblique, and lateral views. At each site, the medial branch nerve was stimulated at 2 Hz to a maximum 1-2 volts determined to finalize safe needle and electrode placement. The patient was awake and responsive during this portion of the procedure. Each target was anesthetized with 1-2 mL of 2 % Lidocaine for anesthesia for lesioning and then each target was lesioned at 80 degrees Celsius for 2 minutes and 30 seconds. Tissue impedances were noted to be between 250 and 500 Ohms. Next, I injected 1 cc of 0.5% Bupivacaine at each segmental sensory nerve. There was no unusual discomfort expressed by Fredo. The needles were withdrawn without difficulty and bandages placed over the needle placement sites, the patient was observed and was without hemodynamic, neurologic, or allergic reactions. Fluoroscopic images were digitally archived. No steroids were used as his diabetes is not under great control. POST PROCEDURE EVALUATION: IMPRESSION: 1. Summary of procedure. Medication given is documented in the MAR. 2. Follow up plan: Fredo to contact [facility] as needed.?This procedure may be repeated if the patient achieves at least 50% improvement in pain/function for at least 6 months. 3. Estimated Blood Loss: <5 mls 4. Fluoroscopy time: Documented in the EMR. Follow up plans and appointments were discussed with the Fredo. Post procedure instruction was given as documented in nursing documentation and having met discharge criteria, Fredo was discharged from the [facility]. This advanced procedure uses cooled radiofrequency energy to safely target the sensory nerves responsible for sending pain signals.1 A radiofrequency generator transmits a small current of Radiofrequency energy through an insulated electrode, or probe, placed within tissue. Ionic heating, produced by the friction of charged molecules, thermally deactivates the nerves responsible for sending pain signals to the brain. Radiofrequency energy heats and cools the tissue at the site of pain. Unlike other Radiofrequency procedures, Coolief circulates water through the device while heating nervous tissue to create a larger treatment area, increasing the opportunity to help with pain. This combination targets the pain- transmitting nerves without excessive heating, leading to pain relief. COMMENTS: No apparent complications. Post-procedure pain: VAS= 0/10. I personally completed the entire procedure. SERGIO VALDIVIA DO, MPH ABPM&R - Subspecialty board certification in Pain Medicine [facility] Coding Conscious Sedation used for procedure: No CPT Codes: Single Facet Joint, Lumbar/Sacral cool - 35020X ([id number]~G) Bilateral Single Facet Joint, Lumbar/Sacral cool each add'l - 41792L ([id number]~G) Additional Codes: Date of Service (00232) Date of service: 11/15/24
[2024-11-15] MEDS: Lidocaine 2% Multi-Dose 20 ML VIAL IJ (09:02)
[2024-11-15] MEDS: Bupivacaine 0.5% Pres-Free 10 ML VIAL IJ (09:02)
[2024-11-15] MEDS: Nerve Block Tray 1 EACH MC (09:03)
== END 2024-11-15 06:58 | disposition home or self-care (01) ==
LOC: PC 06:57
PROVIDERS: PCP Family Medicine; Visit Provider Preventive Medicine Occupational Medicine
DX: M47.816 Spondylosis without myelopathy or radiculopathy, lumbar region (principal); M54.50 Low back pain, unspecified
CPT/HCPCS: 64635; 64636; 72100; J0665; J2003; J3010

== ENCOUNTER → 2024-12-05 10:30 | Outpatient (BNVA) | payer MEDICARE, OTHER, SELFPAY | PROVIDERS: PCP Family Medicine; Referring Provider Family Medicine; Visit Provider Podiatrist | DX: E11.42 Type 2 diabetes mellitus with diabetic polyneuropathy (principal); N18.32 Chronic kidney disease, stage 3b; G62.9 Polyneuropathy, unspecified; M25.571 Pain in right ankle and joints of right foot; M79.674 Pain in right toe(s); L03.116 Cellulitis of left lower limb; E79.0 Hyperuricemia without signs of inflammatory arthritis and tophaceous disease | CPT/HCPCS: 20600; 36415; 99213; J0702; J1100; 84550; 85025 ==

== ENCOUNTER 2024-12-05 11:48 | Outpatient (CLI) | payer MEDICARE, OTHER, SELFPAY ==
[2024-12-05 11:49] LABS: Abs Immature Grans 0.07 10^3/uL (0.0-0.06); Absolute Basophil Count 0.07 10^3/uL (0.0-0.2); Absolute Eosinophil Count 0.19 10^3/uL (0.0-0.7); Absolute Lymphocyte Count 0.93 10^3/uL (1.2-3.4); Absolute Monocyte Count 0.52 10^3/uL (0.1-0.8); Absolute Neutrophil Count 5.66 10^3/uL (1.2-6.7); Basophils % 0.9 %; Eosinophils % 2.6 %; HCT 36.1 % (40.0-50.0); Immature Grans % 0.9 %; Lymphocytes % 12.5 %; MCH 29.6 pg (27.0-33.0); MCHC 33.2 % (32.0-36.0); MCV 89 fL (80-95); MPV 8.9 fL (8.0-11.0); Neutrophils % 76.1 %; Platelet Count 216 10^3/uL (130-400); RBC 4.05 10^6/uL (4.36-5.78); RDW 14.5 % (11.8-14.1); RDW-SD 46.4 fL; WBC 7.44 10^3/uL (4.4-10.8)
[2024-12-05 12:44] LABS: Uric Acid 7.1 mg/dL (3.5-7.2)
== END 2024-12-05 11:49 | disposition home or self-care (01) ==
LOC: LBO 11:50
PROVIDERS: PCP Family Medicine; Visit Provider Podiatrist
DX: E79.0 Hyperuricemia without signs of inflammatory arthritis and tophaceous disease (principal); L03.90 Cellulitis, unspecified
CPT/HCPCS: 36415; 84550; 85025

== ENCOUNTER → 2024-12-26 10:42 | Outpatient (BNVA) | payer MEDICARE, OTHER, SELFPAY | PROVIDERS: PCP Family Medicine; Referring Provider Family Medicine; Visit Provider Podiatrist | DX: M10.9 Gout, unspecified (principal); E11.42 Type 2 diabetes mellitus with diabetic polyneuropathy; L03.116 Cellulitis of left lower limb; N18.32 Chronic kidney disease, stage 3b; G62.9 Polyneuropathy, unspecified; M25.571 Pain in right ankle and joints of right foot | CPT/HCPCS: 20600; J0702; J1100 ==

== ENCOUNTER 2024-12-27 16:01 | Outpatient (REF) | payer MEDICARE, OTHER, SELFPAY ==
[2024-12-27 15:59] LABS: HCT 36.4 % (40.0-50.0); HGB 12.4 g/dL (13.5-17.5); MCH 30.0 pg (27.0-33.0); MCHC 34.1 % (32.0-36.0); MCV 88 fL (80-95); MPV 9.5 fL (8.0-11.0); Platelet Count 258 10^3/uL (130-400); RBC 4.14 10^6/uL (4.36-5.78); RDW 14.2 % (11.8-14.1); RDW-SD 45.7 fL; WBC 9.72 10^3/uL (4.4-10.8)
[2024-12-27 16:40] LABS: Anion Gap 11.8 mmol/L (3-11); BUN 29 mg/dL (7-18); CO2 22.2 mmol/L (21.0-32.0); Calcium 9.0 mg/dL (8.5-10.1); Chloride 102 mmol/L (98-107); Estimated GFR 36.33 (mL/min/1.73m2); Ferritin 98 ng/mL (26-388); Glucose 238 mg/dL (74-106); Potassium 4.1 mmol/L (3.5-5.1); Sodium 136 mmol/L (136-145)
[2024-12-27 16:59] LABS: Uric Acid 4.4 mg/dL (3.5-7.2)
== END 2024-12-27 16:02 | disposition home or self-care (01) ==
LOC: NCHCN 16:01
PROVIDERS: PCP Family Medicine; Visit Provider Family Medicine
DX: D50.9 Iron deficiency anemia, unspecified (principal); M10.9 Gout, unspecified
CPT/HCPCS: 80048; 85027; 82728; 84550

== ENCOUNTER → 2025-01-10 14:55 | Outpatient (BNVA) | payer MEDICARE, OTHER, SELFPAY | PROVIDERS: PCP Family Medicine; Referring Provider Family Medicine; Visit Provider Podiatrist | DX: L03.116 Cellulitis of left lower limb (principal); M10.9 Gout, unspecified; E11.42 Type 2 diabetes mellitus with diabetic polyneuropathy; E11.22 Type 2 diabetes mellitus with diabetic chronic kidney disease; N18.32 Chronic kidney disease, stage 3b; M25.571 Pain in right ankle and joints of right foot | CPT/HCPCS: 99213 ==

== ENCOUNTER 2025-01-15 13:26 | Emergency (ER) | payer MEDICARE, OTHER, SELFPAY ==
[2025-01-15 13:30] VITALS: BP 135/91; PULSE 95; RESP 16; TEMP 36.9; O2SAT 96
--- NOTE | 2025-01-15 13:43 | W.ED.GENAD ---
Discharge Plan Discharge Details Chief Complaint: Headache Primary Care Provider: Alisa Ramirez ED Provider: Christopher Martínez Home Meds and New Rx's Prescriptions: No Action finasteride 5 mg tablet 5 mg PO DAILY Qty: 90 4RF mirabegron [Myrbetriq] 25 mg tablet extended release 24 hr 25 mg PO DAILY Qty: 90 3RF multivitamin Tablet 1 tab PO DAILY ketoconazole 2 % cream 1 applic topical DAILY 90 Days Qty: 60 3RF Rx Instructions: Apply to toenails once daily citalopram 20 mg tablet 20 mg PO DAILY allopurinol 300 mg tablet 300 mg PO DAILY riboflavin (vitamin B2) [Vitamin B-2] 100 mg tablet 400 mg PO BID pantoprazole 40 mg tablet,delayed release (DR/EC) 40 mg PO HS pregabalin 100 mg capsule 100 mg PO DAILY Jardiance 25 mg tablet 25 mg PO DAILY acetylcysteine 600 mg capsule 600 mg PO BID levothyroxine 50 MCG tablet 50 mcg PO DAILY@0730 topiramate 50 mg tablet 75 mg PO HS amlodipine 2.5 mg tablet 2.5 mg PO DAILY tramadol 50 mg tablet 50 mg PO QHS PRN (Reason: pain) Patient Comments: Pt states taking but not on provided med list 01/15/25 nitroglycerin 0.4 mg Tablet, Sublingual 0.4 mg sublingual Q5 MIN PRN X3 PRNQty: 12 0RF diltiazem HCl 120 mg Capsule,Extended Release 24hr 120 mg PO DAILY Qty: 90 0RF isosorbide mononitrate 60 mg tablet extended release 24 hr 60 mg PO HS Patient Comments: TAKE 1 TABLET BY MOUTH ONCE DAILY, per taking hs (DME) Accu-Chek Guide test strips Strip MISCELLANEOUS Patient Comments: USE 1 STRIP TO CHECK GLUCOSE TWICE DAILY lisinopril 10 mg tablet 30 mg PO DAILY Patient Comments: TAKE 1 TABLET BY MOUTH ONCE DAILY . TOTAL DOSE 20mg clopidogrel [Plavix] 75 mg tablet 75 mg PO DAILY aspirin 81 mg tablet 81 mg PO DAILY magnesium 200 mg tablet 400 mg PO DAILY bupropion HCl 100 mg tablet sustained-release 12 hr 100 mg PO BID Patient Comments: TAKE 1 TABLET BY MOUTH TWICE DAILY metformin 1,000 mg tablet 1,000 mg PO BID Patient Comments: TAKE 1 TABLET BY MOUTH TWICE DAILY polyethylene glycol 3350 [Miralax] 17 gram powder in packet 17 g PO BID PRN ranolazine 500 mg tablet extended release 12 hr 500 mg PO DAILY acetaminophen [Acetaminophen Extra Strength] 500 mg tablet 1,000 mg PO TID PRN PRN (Reason: pain) Qty: 30 0RF cyanocobalamin (vitamin B-12) 1,000 mcg/mL kit 100 mcg subcut QMONTH metoprolol succinate 100 mg tablet extended release 24 hr 100 mg PO DAILY mupirocin 2 % ointment 1 applic TOPICAL DAILY Patient Comments: APPLY TOPICALLY ONCE DAILY quetiapine 200 mg tablet 300 mg PO HS Patient Comments: TAKE 1 TABLET BY MOUTH ONCE DAILY AT BEDTIME benzonatate 100 mg capsule 100 mg PO TID PRN sodium bicarbonate 650 mg tablet 650 mg PO BID insulin degludec [Tresiba FlexTouch U-200] 200 unit/mL (3 mL) insulin pen 200 unit subcut QHS HPI General Date/Time Provider Initiated Documentation: 01/15/25 13:42. HPI Narrative: 74 year-old male presents to ED today by POV/ambulating with a chief complaint of headache- for the past 2 weeks, waxing and waning, worse today, with history of migraine disorder. Quality described as generalized headache, all over his head- with some blurred vision- wearing sunglasses for comfort due to photophobia, no radiation to neck stiffness, fever, chest pain, shortness of breath, nausea/vomiting, diplopia, syncope, dizziness or vertigo. Severity is described as severe. Palliating factors include took Tylenol and tramadol without relief. Provoking factors include nothing specific. Events leading up to the incident/Associated Symptoms: Patient states he has not had a headache in years. Patient not anticoagulated. Related Data Home Medications ?Medication ?Instructions ?Recorded ?Confirmed levothyroxine 50 mcg tablet 50 mcg PO DAILY@0730 01/24/13 01/15/25 topiramate 50 mg tablet 75 mg PO HS 01/09/21 01/15/25 amlodipine 2.5 mg tablet 2.5 mg PO DAILY 08/18/21 01/15/25 finasteride 5 mg tablet 5 mg PO DAILY #90 tabs 08/18/21 01/15/25 tramadol 50 mg tablet 50 mg PO QHS PRN pain 06/19/22 01/15/25 riboflavin (vitamin B2) 100 mg 400 mg PO BID 06/25/22 01/15/25 tablet (Vitamin B-2) mirabegron 25 mg tablet,extended 25 mg PO DAILY #90 tabs 03/11/23 01/15/25 release 24 hr (Myrbetriq) ketoconazole 2 % topical cream 1 applic topical DAILY 3 months 04/27/23 01/15/25 #60 grams ranolazine 500 mg tablet,extended 500 mg PO DAILY 05/24/23 01/15/25 release,12 hr acetaminophen 500 mg tablet 1,000 mg (2 x 500 mg) PO TID PRN 05/25/23 01/15/25 (Acetaminophen Extra Strength) PRN pain #30 tabs multivitamin 1 tab PO DAILY 12/20/23 01/15/25 allopurinol 300 mg tablet 300 mg PO DAILY 02/03/24 01/15/25 citalopram 20 mg tablet 20 mg PO DAILY 02/03/24 01/15/25 pantoprazole 40 mg tablet,delayed 40 mg PO HS 02/29/24 01/15/25 release pregabalin 100 mg capsule 100 mg PO DAILY 02/29/24 01/15/25 diltiazem HCl 120 mg 120 mg PO DAILY #90 caps 07/26/24 01/15/25 capsule,extended release 24 hr nitroglycerin 0.4 mg sublingual 0.4 mg sublingual Q5 MIN PRN X3 07/26/24 01/15/25 tablet PRN #12 tabs blood sugar diagnostic (Accu-Chek 07/30/24 01/15/25 Guide test strips) isosorbide mononitrate 60 mg 60 mg PO HS 07/30/24 01/15/25 tablet,extended release 24 hr lisinopril 10 mg tablet 30 mg PO DAILY 07/30/24 01/15/25 acetylcysteine 600 mg capsule 600 mg PO BID 09/14/24 01/15/25 empagliflozin 25 mg tablet 25 mg PO DAILY 09/14/24 01/15/25 (Jardiance) benzonatate 100 mg capsule 100 mg PO TID PRN 09/30/24 01/15/25 cyanocobalamin (vitamin B-12) 100 mcg subcut QMONTH 09/30/24 01/15/25 1,000 mcg/mL injection kit insulin degludec 200 unit/mL (3 200 unit subcut QHS 09/30/24 01/15/25 mL) subcutaneous pen (Tresiba FlexTouch U-200 insulin) metoprolol succinate 100 mg 100 mg PO DAILY 09/30/24 01/15/25 tablet,extended release 24 hr mupirocin 2 % topical ointment 1 applic topical DAILY 09/30/24 01/15/25 quetiapine 200 mg tablet 300 mg PO HS 09/30/24 01/15/25 sodium bicarbonate 650 mg tablet 650 mg PO BID 09/30/24 01/15/25 aspirin 81 mg tablet 81 mg PO DAILY 11/15/24 01/15/25 clopidogrel 75 mg tablet (Plavix) 75 mg PO DAILY 11/15/24 01/15/25 bupropion HCl 100 mg tablet,12 hr 100 mg PO BID 01/15/25 01/15/25 sustained-release magnesium 200 mg tablet 400 mg PO DAILY 01/15/25 01/15/25 metformin 1,000 mg tablet 1,000 mg PO BID 01/15/25 01/15/25 polyethylene glycol 3350 17 gram 17 g PO BID PRN 01/15/25 01/15/25 oral powder packet (Miralax) Previous Rx's ?Medication ?Instructions ?Recorded finasteride 5 mg tablet 5 mg PO DAILY #90 tabs 08/18/21 mirabegron 25 mg tablet,extended 25 mg PO DAILY #90 tabs 03/11/23 release 24 hr (Myrbetriq) ketoconazole 2 % topical cream 1 applic topical DAILY 3 months 04/27/23 #60 grams acetaminophen 500 mg tablet 1,000 mg (2 x 500 mg) PO TID PRN 05/25/23 (Acetaminophen Extra Strength) PRN pain #30 tabs diltiazem HCl 120 mg 120 mg PO DAILY #90 caps 07/26/24 capsule,extended release 24 hr nitroglycerin 0.4 mg sublingual 0.4 mg sublingual Q5 MIN PRN X3 07/26/24 tablet PRN #12 tabs Allergies Allergy/AdvReac Type Severity Reaction Status Date / Time amoxicillin Allergy Severe breathing Verified 01/15/25 13:45 difficuty and vomiting Penicillins Allergy Intermediate Skin Rash Verified 01/15/25 13:45 sulfamethoxazole (From Allergy Intermediate Skin Rash Verified 01/15/25 13:45 Bactrim) trimethoprim (From Bactrim) Allergy Intermediate Skin Rash Verified 01/15/25 13:45 bacitracin AdvReac Severe Skin Rash Verified 01/15/25 13:45 oxycodone HCl (From Percocet) AdvReac Severe Contraindic Verified 01/15/25 13:45 ated oxycodone terephthalate AdvReac Severe Contraindic Verified 01/15/25 13:45 (From Percodan) ated atorvastatin AdvReac Intermediate Other (See Verified 01/15/25 13:45 Comment) rosuvastatin (From Crestor) AdvReac Intermediate Other (See Verified 01/15/25 13:45 Comment) General Stated Complaint: Headache MADELIN: 3 Review of Systems All systems reviewed & are unremarkable except as noted in HPI and below Exam Narrative Exam Narrative: GENERAL APPEARANCE: Well-nourished, non-toxic, awake and alert, atraumatic, no acute distress. SKIN: Warm, pink, dry, intact, without rashes/lesions/ulcerations. HEAD: Normocephalic, atraumatic, normal hair distribution for gender/age. EYES: Normal conjunctiva, no exudates on lids/lashes, EOMs intact without nystagmus, visual moraes intact, endorses pain with EOM movement, vision grossly intact ENT: Nares patent, no circumoral cyanosis, no facial swelling NECK: Supple, trachea midline, painless cervical ROM. LUNGS/CHEST: Lungs CTA bilaterally- no rhonchi/rales/wheezes diffusely, non-labored respirations, normal A/P diameter, symmetrical expansion, no chest wall deformity HEART (CV/PV): Regular rate and rhythm with murmur 3/6 systolic murmur, no peripheral edema, no JVD. ABDOMEN: Soft, non-distended, no guarding, no tenderness. MSK: Normal ROM, no swelling/deformity to bilateral UEs or LEs, moving all extremities without weakness, no cyanosis, spine midline without tenderness, normal curvature. NEURO: Mental Status AAOx4 - alert to person, place, time, events No facial droop, no forehead involvement. Motor: No focal weakness - strength 5/5 in bilateral UEs and LEs, proximal and distal, symmetric. Sensory: sensation intact to light touch globally. Gait normal: patient ambulated without ataxia into ED room. PSYCH: euthymic, cooperative, pleasant, appropriate speech Course Vital Signs Vital signs: Vital Signs Temperature 36.9 C 01/15/25 13:30 Pulse 95 H 01/15/25 13:30 Respiratory Rate 16 01/15/25 13:30 Blood Pressure 135/91 H 01/15/25 13:30 Pulse Oximetry 96 01/15/25 13:30 Temperature 36.9 C 01/15/25 13:30 Temperature Source Oral 01/15/25 13:30 Pulse 95 H 01/15/25 13:30 Respiratory Rate 16 01/15/25 13:30 Blood Pressure 135/91 H 01/15/25 13:30 Blood Pressure Position Sitting 01/15/25 13:30 Pulse Oximetry 96 01/15/25 13:30 Oxygen Delivery Method Room Air 01/15/25 13:30 Oxygen Flow Rate 0 01/15/25 13:30 Pain Level 10 01/15/25 13:30 Medical Decision Making This dictation utilizes [id number] dictation software and may contain unedited grammatical errors. 74 year-old male presents to ED today by POV/ambulating with a chief complaint of headache- for the past 2 weeks, waxing and waning, worse today, with history of migraine disorder. Quality described as generalized headache, all over his head- with some blurred vision- wearing sunglasses for comfort due to photophobia, no radiation to neck stiffness, fever, chest pain, shortness of breath, nausea/vomiting, diplopia, syncope, dizziness or vertigo. Severity is described as severe. Palliating factors include took Tylenol and tramadol without relief. Provoking factors include nothing specific. Events leading up to the incident/Associated Symptoms: Patient states he has not had a headache in years. Patients' medical history: History of TBI with chronic subdural hematoma, atypical chest pain, history of alcohol abuse, history of deep vein thrombosis, history of NSTEMI, T2DM, CKD stage III, hyperlipidemia, compression fracture of lumbar vertebra. Family and social history: Denies EtOH use, no illicit substance use, no recent travel or sick contacts. Pertinent exam findings / vital signs include neuro intact, EOMs intact without nystagmus, endorses pain with EOM movement, vision grossly intact but states blurry, visual moraes intact, benign cardiopulmonary exam, benign abdomen. Differential / pathologies of concern include migraine syndrome, intracranial hemorrhage, viral syndrome, tickborne illness. Diagnostic studies of: - CBC, CMP, CRP/ESR, CTA brain and neck. - CBC shows some mild chronic anemia - CMP hemolyzed at time of signout - CRP/ESR pending - Troponin pending, TSH pending Interventions of: -25mg IVP Benadryl, 25mg PO sumatriptan- patient had already taken tramadol and Tylenol prior to arrival this afternoon. ED Course/Assessment/Plan: 74-year-old male presents with headache syndrome ongoing for 1 week do not suspect any CVA or intracranial hemorrhage pathology with this onset, has a history of TBI and chronic subdural as well as past history of migraines years ago, he has taken Tylenol and tramadol, CBC is fairly unremarkable with a chronic anemia, the rest of his studies are pending as sample hemolyzed around time of signout, CTA pending but hopeful discharge with headache syndrome. Patient signed out to Emelina Jung PA-C at shift-change. Findings not consistent with CVA/ICH, meningismus. Disposition of Headache. Patient verbalized understanding of the plan and return to ED criteria and engaged in shared decision making. Medical Records Medical records reviewed: Yes I reviewed the patient's medical records. Imaging Data Radiologic Study: Imaging: CT Scan My impression: Pending at sign-out Lab Data Lab results reviewed: Yes I reviewed the patient's lab results. Labs: Laboratory Tests Range/Units 01/15/25 14:50 WBC (4.4-10.8) 10^3/uL 8.33 RBC (4.36-5.78) 10^6/uL 4.43 Hgb (13.5-17.5) g/dL 12.7 L Hct (40.0-50.0) % 38.0 L MCV (80-95) fL 86 MCH (27.0-33.0) pg 28.7 MCHC (32.0-36.0) % 33.4 RDW (11.8-14.1) % 14.3 H Plt Count (130-400) 10^3/uL 199 MPV (8.0-11.0) fL 8.7 Immature Gran % % 0.8 Neutrophils % % 73.7 Lymphocytes % % 13.9 Monocytes % % 8.3 Eosinophils % % 2.6 Basophils % % 0.7 Nucleated RBC % (0.0-0.3) % 0.0 Absolute Neutrophils (1.2-6.7) 10^3/uL 6.13 Absolute Lymphocytes (1.2-3.4) 10^3/uL 1.16 L Absolute Monocytes (0.1-0.8) 10^3/uL 0.69 Absolute Eosinophils (0.0-0.7) 10^3/uL 0.22 Absolute Basophils (0.0-0.2) 10^3/uL 0.06 ESR (0-20) mm/hr 21 H Sodium Cancelled Potassium Cancelled Chloride Cancelled Carbon Dioxide Cancelled Anion Gap Cancelled BUN Cancelled Creatinine Cancelled Est GFR (CKD-EPI 2020) Cancelled Glucose Cancelled Calcium Cancelled Magnesium Cancelled Total Bilirubin Cancelled AST Cancelled ALT Cancelled Alkaline Phosphatase Cancelled Troponin I Cancelled C-Reactive Protein Cancelled Total Protein Cancelled Albumin Cancelled TSH Cancelled PFSH All Active Problems Cellulitis (Acute) Non-ST elevation DC (NSTEMI) (Acute) Mid back pain (Acute) Pressure ulcer of buttock (Acute) Chronic pain of toe of right foot (Acute) Nutcracker esophagus (Acute) Stress fracture, right foot, initial encounter for fracture (Acute) Ulcer of right foot with fat layer exposed (Acute) Exostosis of right foot (Acute) Preoperative cardiovascular examination (Acute) Atherosclerosis of artery of both lower extremities (Acute) Corns and callosities (Acute) Venous (peripheral) insufficiency (Acute) 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) Chronic kidney disease (CKD) stage G3b/A1, moderately decreased glomerular filtration rate (GFR) between 30-44 mL/min/1.73 square meter and albuminuria creatinine ratio less than 30 mg/g (Chronic) Obstructive sleep apnea (Chronic) Gout (Chronic) Fatty liver (Acute) Vitamin D deficiency (Acute) GERD (gastroesophageal reflux disease) (Chronic) Anemia, iron deficiency (Acute) Peripheral neuropathy (Acute) Vitamin B12 deficiency (Acute) Dementia (Chronic) Microcytic anemia (Acute) Elevated LFTs (Acute) Poor balance (Acute) Frequent falls (Acute) Coronary artery disease (Chronic) Hyperlipidemia (Chronic) Diabetes mellitus type 2 in obese (Chronic) Thoracic spondylosis without myelopathy (Chronic) Hypothyroidism (Chronic) Hypertension (Chronic) 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) Mild cognitive impairment (Chronic 01/31/18) Sensorineural hearing loss, asymmetrical (Chronic 05/12/13) Chronic rhinitis (Chronic) Lumbosacral spondylosis without myelopathy (Acute) Lower urinary tract symptoms (Chronic) Pituitary abnormality (Acute) Cubital tunnel syndrome on right (Acute) Hand weakness (Acute) Arthritis of right hip (Acute) POCUS INJECTION: 12/17/23; 05/20/2023 Chest wall muscle strain (Acute) Compression fracture of lumbar vertebra (Acute) Lumbar radiculopathy (Acute) Nail dystrophy (Acute) Tubular adenoma of colon (Acute ~09/24/22) Hyperplastic colon polyp (Acute ~09/24/22) Hammertoe of left foot (Acute) Hammertoe of right foot (Acute) Onychomycosis (Acute) Medical History Chest pain Traumatic brain injury Chronic subdural hematoma Blunt head trauma Lumbar contusion BABS (acute kidney injury) Acute serous otitis media of left ear Tendinitis involving hip abductors Trochanteric bursitis, right hip DEPO MEDROL 03/15/23 Partial tear of left rotator cuff Atypical chest pain Musculoskeletal; Negative NPI 04/29/2018 Sensory hearing loss, bilateral (04/09/14) Hypertrophy of nasal turbinates (08/05/15) Deviated nasal septum (08/05/15) Lipoma of lower extremity left foot Alcohol abuse Tinea pedis History of subdural hematoma Hip joint pain Callus of foot Pain, joint, shoulder region, left Ataxia Left cervical radiculopathy Cecal volvulus Viral URI with cough UTI (urinary tract infection) Rhinorrhea Knee pain, right Rathke's pouch cyst Hx of traumatic brain injury 1968-- states he's had 4 brain bleeds 2017 Migraine headache Recurrent UTI Constipation, chronic Pain in joint of right foot Left rib fracture Contusion of right hip Head trauma Right sided weakness Urethral stricture (08/20/15) Postnasal drip (05/13/15) H/O alcohol abuse pt. 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
--- NOTE | 2025-01-15 13:55 | DI.CT_ITS ---
Exam(s) CT BRAIN NECK CTA EXAM: CT BRAIN NECK CTA CLINICAL HISTORY: headache x2 weeks, blurry vision. TECHNIQUE: Imaging Protocol: Axial CT angiography was performed with multi- slice acquisition and multi-planar and MIP reconstructions. CONTRAST MATERIAL: Intravenous: Omnipaque 350 Contrast volume:70 ml COMPARISON: MR MRI BRAIN - PITUITARY W/WO from 12/04/[address] HEAD WO from 03/22/2018 MR MR CERVICAL SPINE WO from 03/24/[address] HEAD WO from 09/14/2023 FINDINGS: CT Head W/O and W contrast: Ventricles and Extra axial spaces: Stable appearance. Hemorrhage: None. Cerebral parenchyma: No evidence of acute infarct or mass. Stable asymmetry of the frontal lobes with large CSF space anterior to the left frontal lobe. No evidence of mass effect. Midline shift: None. Brainstem/Cerebellum: No acute findings.. Calvarium: Normal. Visualized Paranasal sinuses/Mastoids: Clear. Soft Tissues: Unremarkable. Enhancement: Normal. Venous sinuses are patent. Stable enlargement of the pituitary and thickening of the a 2 a Nicky stalk.. CTA Brain W: Internal Carotid Arteries: Minimal plaque. Right: No aneurysm, occlusion or significant stenosis. Left: No aneurysm, occlusion or significant stenosis. Middle Cerebral Arteries: Right: No aneurysm, occlusion or significant stenosis. Left: No aneurysm, occlusion or significant stenosis. Anterior Cerebral Arteries: Right: No aneurysm, occlusion or significant stenosis. Left: No aneurysm, occlusion or significant stenosis. Posterior cerebral Arteries: Right: No aneurysm, occlusion or significant stenosis. Left: No aneurysm, occlusion or significant stenosis. Vertebral Arteries: Right: No aneurysm, occlusion or significant stenosis. Left: No aneurysm, occlusion or significant stenosis. Basilar Artery: No aneurysm, occlusion or significant stenosis. CTA Neck W: Common Carotid: Right: Moderate plaque at the bulb. No dissection, occlusion or significant stenosis. Left: Mild plaque at the bulb. No dissection, occlusion or significant stenosis. External Carotid: Right: No dissection, occlusion or significant stenosis. Left: No dissection, occlusion or significant stenosis. Internal Carotid: Right: Mild plaque proximally. Tortuous in the mid to distal portion. No dissection, occlusion or significant stenosis. Left: No dissection, occlusion or significant stenosis. Vertebral Artery: Right: Diminutive. No dissection, occlusion or significant stenosis. Left: Dominant. No dissection, occlusion or significant stenosis. Lung Apices: No acute findings. Bones: No acute abnormality. Degenerative changes in the cervical spine. Soft Tissues: Normal. IMPRESSION: 1. CTA brain: Normal CTA examination of the [place]. 2. Head CT: Stable appearance increased CSF space anterior to the left frontal lobe. Stable appearance enlarged pituitary and thickened pituitary stalk. No acute abnormality. 3. CTA neck: Atherosclerotic plaque at the common carotid bulbs and proximal internal carotid arteries. No evidence of occlusion, significant stenosis or dissection. RADIATION DOSE DELIVERED: Total DLP DATA REPOSITORY: All CT scans at this facility are submitted to the National Radiology Data Registry (NRDR) Dose Index Registry (DIR) with the [employer] (A[employer]). RADIATION OPTIMIZATION: All CT scans at this facility use at least one of these dose optimization techniques: automated exposure control; mA and/or kV adjustment per patient size (includes targeted exams where dose is matched to clinical indication); or iterative reconstruction.
[2025-01-15] MEDS: Normal Saline 1,000 ML 1000 ML IV (15:06)
[2025-01-15] MEDS: diphenhydrAMINE 50 MG/ML VIAL 25 MG IVP (15:06)
[2025-01-15] MEDS: SUMAtriptan 25 MG TAB PO (15:06)
[2025-01-15 15:09] LABS: Abs Immature Grans 0.07 10^3/uL (0.0-0.06); HCT 38.0 % (40.0-50.0); HGB 12.7 g/dL (13.5-17.5); Immature Grans % 0.8 %; MCH 28.7 pg (27.0-33.0); MCHC 33.4 % (32.0-36.0); MCV 86 fL (80-95); MPV 8.7 fL (8.0-11.0); Platelet Count 199 10^3/uL (130-400); RBC 4.43 10^6/uL (4.36-5.78); RDW 14.3 % (11.8-14.1); RDW-SD 44.9 fL; WBC 8.33 10^3/uL (4.4-10.8)
[2025-01-15 15:12] LABS: ESR 21 mm/hr (0-20)
[2025-01-15 16:18] LABS: ALT 25 U/L (16-63); AST 17 U/L (15-37); Albumin 3.6 g/dL (3.4-5.0); Alkaline Phosphatase 120 U/L (46-116); Anion Gap 13.9 mmol/L (3-11); BUN 24 mg/dL (7-18); Bilirubin, Total 0.3 mg/dL (0.2-1.0); C-Reactive Protein 1.12 mg/dL (<or=0.5); CO2 20.1 mmol/L (21.0-32.0); Calcium 8.7 mg/dL (8.5-10.1); Chloride 102 mmol/L (98-107); Estimated GFR 36.33 (mL/min/1.73m2); Glucose 196 mg/dL (74-106); Magnesium 2.2 mg/dL (1.8-2.4); Potassium 4.0 mmol/L (3.5-5.1); Sodium 136 mmol/L (136-145); TSH 1.92 uIU/mL (0.36-3.74); Total Protein 7.0 g/dL (6.4-8.2); Troponin I 9 ng/L (<or=76)
[2025-01-15] MEDS: Normal Saline - Diluent 50 ML VIAL IJ (16:51)
[2025-01-15] MEDS: Omnipaque 350 MG/ML 100 ML BTL IJ (16:51)
[2025-01-15] MEDS: ACETAMINOPHEN 1,000 MG/100 ML BAG 1000 MG (17:15)
[2025-01-15] MEDS: Dexamethasone 10 MG/ML VIAL IVP (17:16)
[2025-01-15] MEDS: MAGNESIUM SULFATE 1 GM/100 ML BAG IV_INF (17:16)
[2025-01-15] MEDS: Prochlorperazine 10 MG/2 ML VIAL IVP (17:16)
[2025-01-15 17:52] VITALS: BP 161/86; PULSE 79; RESP 18; TEMP 36.2; O2SAT 98
[2025-01-16 10:33] LABS: Lyme Ab w Rflx to Lyme Confirm Negative (Negative)
[2025-01-18 16:51] LABS: B. miyamotoi PCR Negative (Negative); Babesia divergens/MO-1 Negative (Negative); Ehrlichia muris eauclairensis Negative (Negative)
== END 2025-01-15 18:27 | disposition home or self-care (01) ==
PROVIDERS: Physician Assistant; Emergency Provider Physician Assistant; PCP Family Medicine
DX: R51.9 Headache, unspecified (principal)
CPT/HCPCS: 70496; 70498; 80053; 85652; 87798; 96361; 96365; 96375; 99285; 83735; 84443; 84484; 85025; 86140; 86618; 87070; 87205; J0131; J0780; J1100; J1200; J3475; J3490

== ENCOUNTER → 2025-02-05 13:52 | Outpatient (BNVA) | payer MEDICARE, OTHER, SELFPAY | PROVIDERS: PCP Family Medicine; Referring Provider Family Medicine; Visit Provider Podiatrist | DX: L60.3 Nail dystrophy (principal); B35.1 Tinea unguium; E11.42 Type 2 diabetes mellitus with diabetic polyneuropathy; E11.22 Type 2 diabetes mellitus with diabetic chronic kidney disease; N18.32 Chronic kidney disease, stage 3b; I73.89 Other specified peripheral vascular diseases; R26.89 Other abnormalities of gait and mobility; D50.9 Iron deficiency anemia, unspecified; E53.8 Deficiency of other specified B group vitamins; R09.89 Other specified symptoms and signs involving the circulatory and respiratory systems; L65.9 Nonscarring hair loss, unspecified; R20.8 Other disturbances of skin sensation; R23.4 Changes in skin texture; R23.8 Other skin changes; L60.2 Onychogryphosis; L60.8 Other nail disorders; L85.8 Other specified epidermal thickening | CPT/HCPCS: 11719; 11720 ==

== ENCOUNTER 2025-02-16 12:57 | Emergency (ER) | payer MEDICARE, OTHER, SELFPAY ==
[2025-02-16 13:22] VITALS: BP 136/80; PULSE 92; RESP 16; TEMP 36.4; O2SAT 97
--- NOTE | 2025-02-16 13:30 | DI.US_ITS ---
Exam(s) US LOWER EXTREMITY VENOUS RT EXAM: US LOWER EXTREMITY VENOUS RT CLINICAL HISTORY: swelling and pain TECHNIQUE: Right lower extremity venous ultrasound performed using grayscale, color-flow, and spectral Doppler analysis. COMPARISON: US US LOWER EXTREMITY VENOUS RT from 09/15/2021 FINDINGS: The right common femoral, femoral and popliteal veins demonstrate normal compressibility, augmentation, and color Doppler. The posterior tibial and peroneal veins are patent. The saphenofemoral junction is unremarkable. There is no evidence of a Cao cyst. The soft tissues are unremarkable. IMPRESSION: No evidence of a right lower extremity DVT. DATA REPOSITORY:
--- NOTE | 2025-02-16 15:09 | W.ED.GENAD ---
Discharge Plan Disposition Patient Disposition: Home Condition: Stable Discharge Details Clinical Impression: Edema of right lower leg Primary Care Provider: Alisa Ramirez ED Provider: Solomon Quiñones Home Meds and New Rx's Prescriptions: Continued finasteride 5 mg tablet 5 mg PO DAILY Qty: 90 4RF mirabegron [Myrbetriq] 25 mg tablet extended release 24 hr 25 mg PO DAILY Qty: 90 3RF multivitamin Tablet 1 tab PO DAILY ketoconazole 2 % cream 1 applic topical DAILY 90 Days Qty: 60 3RF Rx Instructions: Apply to toenails once daily citalopram 20 mg tablet 20 mg PO DAILY allopurinol 300 mg tablet 300 mg PO DAILY riboflavin (vitamin B2) [Vitamin B-2] 100 mg tablet 400 mg PO BID pantoprazole 40 mg tablet,delayed release (DR/EC) 40 mg PO HS pregabalin 100 mg capsule 100 mg PO DAILY Jardiance 25 mg tablet 25 mg PO DAILY acetylcysteine 600 mg capsule 600 mg PO BID levothyroxine 50 MCG tablet 50 mcg PO DAILY@0730 topiramate 50 mg tablet 75 mg PO HS amlodipine 2.5 mg tablet 2.5 mg PO DAILY tramadol 50 mg tablet 50 mg PO QHS PRN (Reason: pain) Patient Comments: Pt states taking but not on provided med list 01/15/25 nitroglycerin 0.4 mg Tablet, Sublingual 0.4 mg sublingual Q5 MIN PRN X3 PRNQty: 12 0RF diltiazem HCl 120 mg Capsule,Extended Release 24hr 120 mg PO DAILY Qty: 90 0RF isosorbide mononitrate 60 mg tablet extended release 24 hr 60 mg PO HS Patient Comments: TAKE 1 TABLET BY MOUTH ONCE DAILY, per taking hs (DME) Accu-Chek Guide test strips Strip MISCELLANEOUS Patient Comments: USE 1 STRIP TO CHECK GLUCOSE TWICE DAILY lisinopril 10 mg tablet 30 mg PO DAILY Patient Comments: TAKE 1 TABLET BY MOUTH ONCE DAILY . TOTAL DOSE 20mg clopidogrel [Plavix] 75 mg tablet 75 mg PO DAILY aspirin 81 mg tablet 81 mg PO DAILY magnesium 200 mg tablet 400 mg PO DAILY bupropion HCl 100 mg tablet sustained-release 12 hr 100 mg PO BID Patient Comments: TAKE 1 TABLET BY MOUTH TWICE DAILY metformin 1,000 mg tablet 1,000 mg PO BID Patient Comments: TAKE 1 TABLET BY MOUTH TWICE DAILY polyethylene glycol 3350 [Miralax] 17 gram powder in packet 17 g PO BID PRN ranolazine 500 mg tablet extended release 12 hr 500 mg PO DAILY acetaminophen [Acetaminophen Extra Strength] 500 mg tablet 1,000 mg PO TID PRN PRN (Reason: pain) Qty: 30 0RF cyanocobalamin (vitamin B-12) 1,000 mcg/mL kit 100 mcg subcut QMONTH metoprolol succinate 100 mg tablet extended release 24 hr 100 mg PO DAILY mupirocin 2 % ointment 1 applic TOPICAL DAILY Patient Comments: APPLY TOPICALLY ONCE DAILY quetiapine 200 mg tablet 300 mg PO HS Patient Comments: TAKE 1 TABLET BY MOUTH ONCE DAILY AT BEDTIME benzonatate 100 mg capsule 100 mg PO TID PRN sodium bicarbonate 650 mg tablet 650 mg PO BID insulin degludec [Tresiba FlexTouch U-200] 200 unit/mL (3 mL) insulin pen 200 unit subcut QHS Discharge Instructions Instructions: Lymphedema Additional Instructions: The ultrasound that was performed today on your right lower extremity did not reveal a blood clot. Please use compression stockings and keep your leg elevated over the next few days. Please follow-up with your primary care physician. Should swelling persist, additional outpatient diagnostic testing will be necessary. Please discuss this with your doctor. Return to the emergency department immediately for any worsening or new concerning symptoms. Referrals: Alisa Ramirez MD [Primary Care Provider, Medicine] Discharge Data Discharge Date/Time-TO BE ENTERED AT DEPARTURE: 02/16/25 15:23 HPI General Mode of arrival: ambulatory. Date/Time Provider Initiated Documentation: 02/16/25 13:26. Limitations to Documentation: no limitations. Information obtained by: patient. HPI Narrative: HISTORY OF PRESENT ILLNESS Male with history of leg blood clot presenting with right leg swelling and pain for several weeks. Pain is constant and affects the whole leg. No Tylenol taken today but can take it. Not on blood thinners, never prescribed. Unknown reason for discontinuing blood thinner. PCP: Dr. Trujillo. No leg injury. Physical therapist suggested possible blood clot. Persistent neck and back pain. No fever or chills. Related Data Home Medications ?Medication ?Instructions ?Recorded ?Confirmed levothyroxine 50 mcg tablet 50 mcg PO DAILY@0730 01/24/13 02/16/25 topiramate 50 mg tablet 75 mg PO HS 01/09/21 02/16/25 amlodipine 2.5 mg tablet 2.5 mg PO DAILY 08/18/21 02/16/25 finasteride 5 mg tablet 5 mg PO DAILY #90 tabs 08/18/21 02/16/25 tramadol 50 mg tablet 50 mg PO QHS PRN pain 06/19/22 02/16/25 riboflavin (vitamin B2) 100 mg 400 mg PO BID 06/25/22 02/16/25 tablet (Vitamin B-2) mirabegron 25 mg tablet,extended 25 mg PO DAILY #90 tabs 03/11/23 02/16/25 release 24 hr (Myrbetriq) ketoconazole 2 % topical cream 1 applic topical DAILY 3 months 04/27/23 02/16/25 #60 grams ranolazine 500 mg tablet,extended 500 mg PO DAILY 05/24/23 02/16/25 release,12 hr acetaminophen 500 mg tablet 1,000 mg (2 x 500 mg) PO TID PRN 05/25/23 02/16/25 (Acetaminophen Extra Strength) PRN pain #30 tabs multivitamin 1 tab PO DAILY 12/20/23 02/16/25 allopurinol 300 mg tablet 300 mg PO DAILY 02/03/24 02/16/25 citalopram 20 mg tablet 20 mg PO DAILY 02/03/24 02/16/25 pantoprazole 40 mg tablet,delayed 40 mg PO HS 02/29/24 02/16/25 release pregabalin 100 mg capsule 100 mg PO DAILY 02/29/24 02/16/25 diltiazem HCl 120 mg 120 mg PO DAILY #90 caps 07/26/24 02/16/25 capsule,extended release 24 hr nitroglycerin 0.4 mg sublingual 0.4 mg sublingual Q5 MIN PRN X3 07/26/24 02/16/25 tablet PRN #12 tabs blood sugar diagnostic (Accu-Chek 07/30/24 02/16/25 Guide test strips) isosorbide mononitrate 60 mg 60 mg PO HS 07/30/24 02/16/25 tablet,extended release 24 hr lisinopril 10 mg tablet 30 mg PO DAILY 07/30/24 02/16/25 acetylcysteine 600 mg capsule 600 mg PO BID 09/14/24 02/16/25 empagliflozin 25 mg tablet 25 mg PO DAILY 09/14/24 02/16/25 (Jardiance) benzonatate 100 mg capsule 100 mg PO TID PRN 09/30/24 02/16/25 cyanocobalamin (vitamin B-12) 100 mcg subcut QMONTH 09/30/24 02/16/25 1,000 mcg/mL injection kit insulin degludec 200 unit/mL (3 200 unit subcut QHS 09/30/24 02/16/25 mL) subcutaneous pen (Tresiba FlexTouch U-200 insulin) metoprolol succinate 100 mg 100 mg PO DAILY 09/30/24 02/16/25 tablet,extended release 24 hr mupirocin 2 % topical ointment 1 applic topical DAILY 09/30/24 02/16/25 quetiapine 200 mg tablet 300 mg PO HS 09/30/24 02/16/25 sodium bicarbonate 650 mg tablet 650 mg PO BID 09/30/24 02/16/25 aspirin 81 mg tablet 81 mg PO DAILY 11/15/24 02/16/25 clopidogrel 75 mg tablet (Plavix) 75 mg PO DAILY 11/15/24 02/16/25 bupropion HCl 100 mg tablet,12 hr 100 mg PO BID 01/15/25 02/16/25 sustained-release magnesium 200 mg tablet 400 mg PO DAILY 01/15/25 02/16/25 metformin 1,000 mg tablet 1,000 mg PO BID 01/15/25 02/16/25 polyethylene glycol 3350 17 gram 17 g PO BID PRN 01/15/25 02/16/25 oral powder packet (Miralax) Previous Rx's ?Medication ?Instructions ?Recorded finasteride 5 mg tablet 5 mg PO DAILY #90 tabs 08/18/21 mirabegron 25 mg tablet,extended 25 mg PO DAILY #90 tabs 03/11/23 release 24 hr (Myrbetriq) ketoconazole 2 % topical cream 1 applic topical DAILY 3 months 04/27/23 #60 grams acetaminophen 500 mg tablet 1,000 mg (2 x 500 mg) PO TID PRN 05/25/23 (Acetaminophen Extra Strength) PRN pain #30 tabs diltiazem HCl 120 mg 120 mg PO DAILY #90 caps 07/26/24 capsule,extended release 24 hr nitroglycerin 0.4 mg sublingual 0.4 mg sublingual Q5 MIN PRN X3 07/26/24 tablet PRN #12 tabs Allergies Allergy/AdvReac Type Severity Reaction Status Date / Time amoxicillin Allergy Severe breathing Verified 02/16/25 13:25 difficuty and vomiting Penicillins Allergy Intermediate Skin Rash Verified 02/16/25 13:25 sulfamethoxazole (From Allergy Intermediate Skin Rash Verified 02/16/25 13:25 Bactrim) trimethoprim (From Bactrim) Allergy Intermediate Skin Rash Verified 02/16/25 13:25 bacitracin AdvReac Severe Skin Rash Verified 02/16/25 13:25 oxycodone HCl (From Percocet) AdvReac Severe Contraindic Verified 02/16/25 13:25 ated oxycodone terephthalate AdvReac Severe Contraindic Verified 02/16/25 13:25 (From Percodan) ated atorvastatin AdvReac Intermediate Other (See Verified 02/16/25 13:25 Comment) rosuvastatin (From Crestor) AdvReac Intermediate Other (See Verified 02/16/25 13:25 Comment) General Stated Complaint: Vascular MADELIN: 4 Review of Systems All systems reviewed & are unremarkable except as noted in HPI and below Constitutional Constitutional: Denies fever(s) Exam Resp Auscultation: clear to auscultation bilaterally Cardio Rate: regular rate Rhythm: regular rhythm Heart Sounds: S1 normal and S2 normal Pulses: dorsalis pedis present bilaterally 2+ Extrem General: calf tenderness and edema Laterality: right (Mild lower leg) Course Vital Signs Vital signs: Vital Signs Temperature 36.4 C 02/16/25 13:22 Pulse 92 H 02/16/25 13:22 Respiratory Rate 16 02/16/25 13:22 Blood Pressure 136/80 02/16/25 13:22 Pulse Oximetry 97 02/16/25 13:22 Temperature 36.4 C 02/16/25 13:22 Temperature Source Tympanic 02/16/25 13:22 Pulse 92 H 02/16/25 13:22 Respiratory Rate 16 02/16/25 13:22 Blood Pressure 136/80 02/16/25 13:22 Blood Pressure Position Sitting 02/16/25 13:22 Pulse Oximetry 97 02/16/25 13:22 Oxygen Delivery Method Room Air 02/16/25 13:22 Oxygen Flow Rate 0 02/16/25 13:22 Medical Decision Making ASSESSMENT AND PLAN Initial Assessment: Right leg swelling and pain for weeks. No injury. Mild edema. Differential Diagnosis: - Blood clot: Considered due to swelling and pain. Ultrasound to rule out. - Edema: Mild edema noted. Elevate leg to reduce swelling. ED Course: - Ultrasound performed. - Tylenol administered. - Leg elevated. Final Assessment: Ultrasound performed to rule out blood clot. Tylenol for pain. Leg elevated to reduce swelling. Clinical Impression: - Right leg swelling - Right leg pain Disposition: - Discharge: Home. Return if symptoms worsen or new symptoms develop. Follow-Up: PCP next week This document was written with the assistance of [employer]. The patient consented to its use. PFSH All Active Problems Edema of right lower leg (Acute) Cellulitis (Acute) Non-ST elevation [place] (NSTEMI) (Acute) Mid back pain (Acute) Pressure ulcer of buttock (Acute) Chronic pain of toe of right foot (Acute) Nutcracker esophagus (Acute) Stress fracture, right foot, initial encounter for fracture (Acute) Ulcer of right foot with fat layer exposed (Acute) Exostosis of right foot (Acute) Preoperative cardiovascular examination (Acute) Atherosclerosis of artery of both lower extremities (Acute) Corns and callosities (Acute) Venous (peripheral) insufficiency (Acute) 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) Chronic kidney disease (CKD) stage G3b/A1, moderately decreased glomerular filtration rate (GFR) between 30-44 mL/min/1.73 square meter and albuminuria creatinine ratio less than 30 mg/g (Chronic) Obstructive sleep apnea (Chronic) Gout (Chronic) Fatty liver (Acute) Vitamin D deficiency (Acute) GERD (gastroesophageal reflux disease) (Chronic) Anemia, iron deficiency (Acute) Peripheral neuropathy (Acute) Vitamin B12 deficiency (Acute) Dementia (Chronic) Microcytic anemia (Acute) Elevated LFTs (Acute) Poor balance (Acute) Frequent falls (Acute) Coronary artery disease (Chronic) Hyperlipidemia (Chronic) Diabetes mellitus type 2 in obese (Chronic) Thoracic spondylosis without myelopathy (Chronic) Hypothyroidism (Chronic) Hypertension (Chronic) 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) Mild cognitive impairment (Chronic 01/31/18) Sensorineural hearing loss, asymmetrical (Chronic 05/12/13) Chronic rhinitis (Chronic) Lumbosacral spondylosis without myelopathy (Acute) Lower urinary tract symptoms (Chronic) Pituitary abnormality (Acute) Cubital tunnel syndrome on right (Acute) Hand weakness (Acute) Arthritis of right hip (Acute) POCUS INJECTION: 12/17/23; 05/20/2023 Chest wall muscle strain (Acute) Compression fracture of lumbar vertebra (Acute) Lumbar radiculopathy (Acute) Nail dystrophy (Acute) Tubular adenoma of colon (Acute ~09/24/22) Hyperplastic colon polyp (Acute ~09/24/22) Hammertoe of left foot (Acute) Hammertoe of right foot (Acute) Onychomycosis (Acute) Medical History Chest pain Traumatic brain injury Chronic subdural hematoma Partial tear of left rotator cuff Atypical chest pain Musculoskeletal; Negative NPI 04/29/2018 Sensory hearing loss, bilateral (04/09/14) Hypertrophy of nasal turbinates (08/05/15) Deviated nasal septum (08/05/15) Trochanteric bursitis, right hip DEPO MEDROL 03/15/23 Tendinitis involving hip abductors Acute serous otitis media of left ear Lumbar contusion Blunt head trauma BABS (acute kidney injury) Lipoma of lower extremity left foot Alcohol abuse Tinea pedis History of subdural hematoma Hip joint pain Callus of foot Pain, joint, shoulder region, left Ataxia Left cervical radiculopathy Cecal volvulus Viral URI with cough UTI (urinary tract infection) Rhinorrhea Knee pain, right Rathke's pouch cyst Hx of traumatic brain injury 1968-- states he's had 4 brain bleeds 2017 Migraine headache Recurrent UTI Constipation, chronic Pain in joint of right foot Left rib fracture Contusion of right hip Head trauma Right sided weakness Urethral stricture (08/20/15) Postnasal drip (05/13/15) H/O alcohol abuse pt. 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
== END 2025-02-16 15:23 | disposition home or self-care (01) ==
PROVIDERS: Emergency Provider Student in an Organized Health Care Education/Training Program; PCP Family Medicine
DX: R60.0 Localized edema (principal); Z86.79 Personal history of other diseases of the circulatory system
CPT/HCPCS: 99283; 99284; 93971

== ENCOUNTER 2025-03-05 14:52 | Emergency (ER) | payer MEDICARE, OTHER, SELFPAY ==
--- NOTE | 2025-03-05 14:45 | DI.CT_ITS ---
Exam(s) CT CHEST/ABD/PEL W EXAM: CT CHEST/ABD/PEL W CLINICAL HISTORY: Trauma. TECHNIQUE: Imaging Protocol: Axial computed tomography images with coronal and sagittal reformatted images were created and reviewed CONTRAST MATERIAL: Intravenous: Omnipaque 350 Contrast volume:100 ml Oral: None COMPARISON: CT CT ABDOMEN PELVIS WO from 09/30/2024 FINDINGS: CHEST: LUNGS: Moderately elevated right hemidiaphragm with mild atelectasis in the right lung base at this level but no confluent infiltrates nor pleural effusions. There is no lung contusion and there is no evidence of pneumothorax.. MEDIASTINUM: No evidence of acute sternal fracture nor mediastinal hematoma. There are sternotomy wires and nonunion of sternotomy but no evidence of acute sternal fracture. Partially visualized thyroid unremarkable. No hilar nor mediastinal adenopathy. CARDIAC: Heart size upper normal. No pericardial effusion. Coronary artery calcification.Caliber of thoracic aorta is within normal limits and there is no evidence of dissection. OSSEOUS: No fractures identified. No osseous lesions. Chronic mild wedge compression fracture of T12 noted, unchanged from 09/19/2024.. ABDOMEN: No evidence of ascites, mesenteric nor bowel wall hematoma. LIVER: Enlarged and hypodense-steatosis. No lacerations. No subcapsular hematomas. GALLBLADDER/BILIARY: . either gallstone or polyp, unchanged from 09/30/2024. There is no gallbladder wall edema nor pericholecystic fluid. CBD is not dilated. PANCREAS: No evidence of pancreatic mass nor dilatation of the pancreatic duct. SPLEEN: Intact. No laceration. Normal size. No lesions. Splenic and portal veins are patent. ADRENALS: No adrenal masses nor adrenal hemorrhages. KIDNEYS: No lacerations nor subcapsular hematomas. No calculi nor hydronephrosis. There is a cyst in the medial cortex of the right kidney which measures 2.5 cm and does not require further workup. Smaller cyst in the lateral cortex of the opposite-left kidney, also not requiring further workup... No solid renal masses evident. The previously present left ureteral stent seen on CT scan of September 2024 is been removed. There is no hydronephrosis evident. No hydroureter. There is mild uniform thickening of the urinary bladder wall. ABDOMINAL AORTA: Abdominal aorta is not enlarged. LYMPH NODES: There is no retroperitoneal nor paraaortic adenopathy. ABDOMINAL WALL: No evidence of significant anterior abdominal wall nor inguinal hernia. GI: There is no evidence of bowel obstruction.No free air. No abscess. PELVIS: LYMPH NODES: There is no intrapelvic nor inguinal adenopathy. GI: Appendix is surgically absent.No evidence of sigmoid diverticulitis. URINARY BLADDER: No calculi nor masses evident REPRODUCTIVE: Prostate size normal. Seminal vesicles unremarkable. OSSEOUS: No fractures. Dense sclerotic non expansile bone lesion left iliac bone is unchanged and probably a benign bone island. Two smaller similar findings are seen in the opposite-right iliac bone. The sacroiliac joints appear unremarkable. No fractures seen in the lumbar vertebrae. Some disc s pace narrowing L5-S1 is noted. Mild superior endplate compression fracture of T12 is unchanged. IMPRESSION: 1. Prior to the prior CT scan of 09/30/2024 the left ureteral stent has been removed. There is no hydronephrosis nor hydroureter on either side. No radiopaque calculi in the kidneys nor along the course of the ureters nor within the urinary bladder. Prostate size normal. 2. No acute trauma findings in the chest. Sternotomy wires. Mild chronic compression fracture of T12 again noted 3. Cholelithiasis without evidence of acute cholecystitis. Appendix appears to be surgically absent Report called to ER physician 03/05/2025 at 5:50 p.m. RADIATION DOSE DELIVERED: 719.23mGy.cm Total DLP DATA REPOSITORY: All CT scans at this facility are submitted to the National Radiology Data Registry (NRDR) Dose Index Registry (DIR) with the [employer] ([employer]). RADIATION OPTIMIZATION: All CT scans at this facility use at least one of these dose optimization techniques: automated exposure control; mA and/or kV adjustment per patient size (includes targeted exams where dose is matched to clinical indication); or iterative reconstruction.
[2025-03-05 14:54] VITALS: BP 146/74; PULSE 90; RESP 18; TEMP 36.6; O2SAT 97
[2025-03-05] MEDS: ACETAMINOPHEN 1,000 MG/100 ML BAG 400 MG IVPB (16:04)
[2025-03-05 16:13] LABS: Abs Immature Grans 0.07 10^3/uL (0.0-0.06); HCT 39.3 % (40.0-50.0); HGB 13.3 g/dL (13.5-17.5); Immature Grans % 0.9 %; MCH 29.6 pg (27.0-33.0); MCHC 33.8 % (32.0-36.0); MCV 88 fL (80-95); MPV 8.8 fL (8.0-11.0); Platelet Count 244 10^3/uL (130-400); RBC 4.49 10^6/uL (4.36-5.78); RDW 14.6 % (11.8-14.1); RDW-SD 46.5 fL; WBC 8.22 10^3/uL (4.4-10.8)
[2025-03-05 16:31] LABS: ALT 29 U/L (16-63); AST 18 U/L (15-37); Albumin 4.1 g/dL (3.4-5.0); Alkaline Phosphatase 127 U/L (46-116); Anion Gap 13.5 mmol/L (3-11); BUN 27 mg/dL (7-18); Bilirubin, Total 0.4 mg/dL (0.2-1.0); CO2 21.5 mmol/L (21.0-32.0); Calcium 8.9 mg/dL (8.5-10.1); Chloride 101 mmol/L (98-107); Estimated GFR 32.22 (mL/min/1.73m2); Glucose 269 mg/dL (74-106); Potassium 4.1 mmol/L (3.5-5.1); Sodium 136 mmol/L (136-145); Total Protein 7.9 g/dL (6.4-8.2)
[2025-03-05 16:38] VITALS: BP 146/74; PULSE 90; RESP 18; TEMP 36.6; O2SAT 97
[2025-03-05] MEDS: Normal Saline Flush 10 ML SYR IVP (16:49)
[2025-03-05] MEDS: Normal Saline - Diluent 50 ML VIAL IJ (16:49)
[2025-03-05] MEDS: Omnipaque 350 MG/ML 100 ML BTL IJ (16:50)
[2025-03-05] MEDS: MORPHine 10 MG/ML VIAL 4 MG IVP (17:46)
[2025-03-05] MEDS: Normal Saline 1,000 ML 1000 ML IV (17:47)
[2025-03-05] MEDS: oxyCODONE 5 MG TAB PO (19:22)
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
[2025-03-05] MEDS: Clopidogrel 75 MG TAB PO (20:03)
[2025-03-05] MEDS: Aspirin 81 MG CHEW PO (20:03)
[2025-03-05 20:32] VITALS: BP 147/96; PULSE 85; RESP 20; TEMP 36.2; O2SAT 99
== END 2025-03-05 20:43 | disposition home or self-care (01) ==
PROVIDERS: Emergency Provider General Practice; PCP Family Medicine
DX: R10.31 Right lower quadrant pain (principal); E11.22 Type 2 diabetes mellitus with diabetic chronic kidney disease; I12.9 Hypertensive chronic kidney disease with stage 1 through stage 4 chronic kidney disease, or unspecified chronic kidney disease; N18.32 Chronic kidney disease, stage 3b; I25.2 Old myocardial infarction; Z95.1 Presence of aortocoronary bypass graft; Z79.02 Long term (current) use of antithrombotics/antiplatelets; Z79.82 Long term (current) use of aspirin; Z79.4 Long term (current) use of insulin; Z87.891 Personal history of nicotine dependence
CPT/HCPCS: 74177; 80053; 86850; 86900; 86901; 96361; 96365; 96375; 99285; 71260; 83605; 85025; J0131; J2270; J3490

== ENCOUNTER 2025-04-09 18:47 | Emergency (ER) | payer MEDICARE, OTHER, SELFPAY ==
[2025-04-09] VITALS (34 sets, daily range): BP systolic 167–218; BP diastolic 73–113; PULSE 100–122; RESP 15–32; TEMP 36.6; O2SAT 94–99
--- NOTE | 2025-04-09 19:00 | DI.CT_ITS ---
Exam(s) CT HEAD WO EXAM: CT HEAD WO CLINICAL HISTORY: vomiting, TAN. TECHNIQUE: Imaging Protocol: Axial computed tomography images with coronal and sagittal reformatted images were created and reviewed COMPARISON: CT CT HEAD WO from 09/14/[address] BRAIN NECK CTA from 01/15/2025 FINDINGS: Ventricles and Extra axial spaces: Normal in size and morphology for the patient's age. The prominent extra-axial space in the anterior cranial fossa is unchanged. Hemorrhage: None. Cerebral parenchyma: There are areas of decreased attenuation in the white matter most consistent with chronic microvascular ischemic disease. There is no evidence of an acute territorial infarct or acute mass effect. Midline shift: None. Brainstem/Cerebellum: Normal. Calvarium: Normal. Visualized Paranasal sinuses/Mastoids: Clear. Soft Tissues: Unremarkable. IMPRESSION: 1. No acute intracranial process. 2. The preliminary [facility] report was reviewed. RADIATION DOSE DELIVERED: 850.11mGy.cm Total DLP DATA REPOSITORY: All CT scans at this facility are submitted to the National Radiology Data Registry (NRDR) Dose Index Registry (DIR) with the [employer] ([employer]). RADIATION OPTIMIZATION: All CT scans at this facility use at least one of these dose optimization techniques: automated exposure control; mA and/or kV adjustment per patient size (includes targeted exams where dose is matched to clinical indication); or iterative reconstruction.
--- NOTE | 2025-04-09 19:00 | RT.EKG_ITS ---
APPROVED REPORT Exam: Resting ECG Reason for Exam: vomiting, hx PA Patient Location: E HR:111 bpm ECG Measurements Heart Rate 111 AXIS GA 179 P 37 QRSd 84 QRS 24 QT 348 T 172 QTc 474 Conclusion Sinus tachycardia, rate 111 No interval abnormalities No STEMI No significant changes from priors other than rate increase
--- NOTE | 2025-04-09 19:00 | DI.CT_ITS ---
Exam(s) CT ABDOMEN PELVIS W EXAM: CT ABDOMEN PELVIS W CLINICAL HISTORY: abd distension, constipation, vomiting TECHNIQUE: Imaging Protocol: Axial computed tomography images with coronal and sagittal reformatted images were created and reviewed. CONTRAST MATERIAL: Intravenous: Omnipaque 350 Contrast volume:70 mL Oral: No COMPARISON: CT CT ABDOMEN PELVIS W from 10/23/[address] THORAX ABD/PEL CTA from 07/30/[address] ABDOMEN PELVIS WO from 09/23/[address] CHEST/ABD/PEL W from 03/05/2025 FINDINGS: ABDOMEN: Lung Bases: Coronary artery calcification is present. There is elevation of the right hemidiaphragm with atelectasis and/or scarring in the right lower lobe. Liver: There is diffuse decreased attenuation of the liver suggesting fatty infiltration. Liver is enlarged. No measurable mass. Portal, Superior Mesenteric, and Splenic Veins: Unremarkable. Gallbladder and Biliary Tract: There is no biliary ductal dilatation. There is a calcification along the anterior wall of the gallbladder. This is unchanged. Pancreas: Normal density, no abnormal calcifications or inflammatory process. Spleen: Normal. Adrenals: No masses seen. Kidneys: Normal size, contour and axis. No radiodense stones or obstructive uropathy. There are bilateral simple renal cysts. No follow-up is recommended. Abdominal Aorta: Abdominal portion non-dilated. Atherosclerotic calcification is present. Bowel: There are few scattered diverticula in the colon but no evidence of acute diverticulitis. There is no evidence of bowel obstruction or bowel wall thickening. There are surgical clips seen in the cecum suggesting prior appendectomy. Peritoneal Cavity: No ascites, collection or mesenteric inflammatory response. No free air. Lymph Nodes: Within normal limits. Bones: Within normal limits for the patient's age. Sternal wires are in place. Soft Tissues: Unremarkable. PELVIS: Bladder: Symmetric distention, no gross wall thickening. Reproductive Organs: Unremarkable as visualized. Lymph Nodes: Within normal limits. Bones: Within normal limits for the patient's age. IMPRESSION: 1. No acute abdominal or pelvic process. 2. Colonic diverticulosis without evidence of acute diverticulitis. 3. Hepatomegaly and hepatic steatosis. 4. The preliminary [facility] report was reviewed. RADIATION DOSE DELIVERED: 761.68mGy.cm Total DLP DATA REPOSITORY: All CT scans at this facility are submitted to the National Radiology Data Registry (NRDR) Dose Index Registry (DIR) with the [employer] ([employer]). RADIATION OPTIMIZATION: All CT scans at this facility use at least one of these dose optimization techniques: automated exposure control; mA and/or kV adjustment per patient size (includes targeted exams where dose is matched to clinical indication); or iterative reconstruction.
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
[2025-04-09] MEDS: Lactated Ringers 500 ML IV (20:00)
[2025-04-09] MEDS: ACETAMINOPHEN 1,000 MG/100 ML BAG 400 MG IVPB (20:00)
[2025-04-09] MEDS: Ondansetron 4 MG/2 ML VIAL IVP ×2 (20:06→21:35)
[2025-04-09 20:10] LABS: Abs Immature Grans 0.05 10^3/uL (0.0-0.06); HCT 38.3 % (40.0-50.0); HGB 13.2 g/dL (13.5-17.5); Immature Grans % 0.7 %; MCH 29.1 pg (27.0-33.0); MCHC 34.5 % (32.0-36.0); MCV 85 fL (80-95); MPV 8.8 fL (8.0-11.0); Platelet Count 211 10^3/uL (130-400); RBC 4.53 10^6/uL (4.36-5.78); RDW 14.4 % (11.8-14.1); RDW-SD 43.9 fL; WBC 6.82 10^3/uL (4.4-10.8)
[2025-04-09] MEDS: Omnipaque 350 MG/ML 100 ML BTL IJ (20:14)
[2025-04-09] MEDS: Normal Saline Flush 10 ML SYR IVP (20:15)
[2025-04-09] MEDS: Normal Saline - Diluent 50 ML VIAL IJ (20:15)
[2025-04-09 20:20] LABS: INR 0.9 (0.9-1.1); Prothrombin Time 9.5 sec (9.1-11.1)
[2025-04-09 20:34] LABS: ALT 30 U/L (16-63); AST 20 U/L (15-37); Albumin 4.3 g/dL (3.4-5.0); Alkaline Phosphatase 125 U/L (46-116); Anion Gap 13.8 mmol/L (3-11); BUN 19 mg/dL (7-18); Bilirubin, Total 0.3 mg/dL (0.2-1.0); CO2 20.2 mmol/L (21.0-32.0); Calcium 8.8 mg/dL (8.5-10.1); Chloride 101 mmol/L (98-107); Estimated GFR 38.77 (mL/min/1.73m2); Glucose 225 mg/dL (74-106); Lipase 121 U/L (<78); Magnesium 2.3 mg/dL (1.8-2.4); Potassium 3.5 mmol/L (3.5-5.1); Sodium 135 mmol/L (136-145); Total Protein 8.4 g/dL (6.4-8.2); Troponin I 12 ng/L (<or=76)
[2025-04-09] MEDS: HYDROmorphone 2 MG/ML SYR 0.5 MG IVP (21:17)
--- NOTE | 2025-04-09 21:43 | DI.[facility]AD_ITS ---
PROCEDURE INFORMATION: Exam: CT Abdomen And Pelvis With Contrast Exam date and time: 04/09/2025 8:20 PM Age: 74 years old Clinical indication: Constipation and vomiting; Prior surgery; Surgery date: 6+ months; Surgery type: Appy, hernia repair, cardiac surgery; Abd distension, constipation, vomiting TECHNIQUE: Imaging protocol: Computed tomography of the abdomen and pelvis with contrast. Radiation optimization: All CT scans at this facility use at least one of these dose optimization techniques: automated exposure control; mA and/or kV adjustment per patient size (includes targeted exams where dose is matched to clinical indication); or iterative reconstruction. Contrast material: OMNIPAQUE 350; Contrast volume: 70 ml; Contrast route: INTRAVENOUS (IV); COMPARISON: CT CHEST/ABD/PEL W 03/05/2025 4:48 PM FINDINGS: Lungs: Linear bibasilar opacities most consistent with subsegmental atelectasis. Liver: There is a diffuse decrease in hepatic parenchymal density, consistent with fatty infiltration. Gallbladder and biliary ducts: Multiple gallstones are present. No pericholecystic inflammatory changes to suggest cholecystitis. Pancreas: The pancreas is unremarkable. Spleen: No splenomegaly. No lesions. Adrenal glands: The adrenal glands are unremarkable. Kidneys and ureters: Stable renal cysts. Stomach and bowel: Moderate stool throughout the colon and rectum. Appendix: There has been an appendectomy. Intraperitoneal space: Unremarkable. No free air. No significant fluid collection. Vasculature: Patent vessels without evidence of aneurysm, dissection, occlusion or critical stenosis. Lymph nodes: Unremarkable. No enlarged lymph nodes. Urinary bladder: No focal wall thickening of the urinary bladder. Reproductive: Unremarkable as visualized. Bones/joints: No acute osseous abnormality. Sternotomy wires are intact. Moderate multilevel degenerative changes thoracic spine. The lumbar spine demonstrates moderate degenerative changes at multiple levels. Soft tissues: Unremarkable. IMPRESSION: No acute findings. Chronic noncritical findings as described above. Dictated and Authenticated by: Jessica White MD. Orderin [facility] Clint aCbello MD
[2025-04-09 21:44] LABS: Troponin I 16 ng/L (<or=76)
--- NOTE | 2025-04-09 21:46 | DI.VRAD_ITS ---
PROCEDURE INFORMATION: Exam: CT Head Without Contrast Exam date and time: 04/09/2025 8:18 PM Age: 74 years old Clinical indication: TAN vomiting TECHNIQUE: Imaging protocol: Computed tomography of the head without contrast. Radiation optimization: All CT scans at this facility use at least one of these dose optimization techniques: automated exposure control; mA and/or kV adjustment per patient size (includes targeted exams where dose is matched to clinical indication); or iterative reconstruction. COMPARISON: CT BRAIN NECK CTA 15/01/2025 16:48 FINDINGS: Brain: Large left frontal extra axial CSF density present measuring 2.9 x 5.4 cm containing focal areas of calcification. This is unchanged compared to prior study of 01/15/2025. This is unchanged compared to the prior studies and is a chronic finding. Basal ganglia calcification is present. This may be physiologic. Other considerations are prior infection, thyroid/parathyroid disease or inherited metabolic conditions. There is moderate diffuse heterogeneity of the white matter attenuation, consistent with chronic white matter microangiopathic ischemic changes. There is moderate diffuse cerebral atrophy present. There is no evidence of intracranial hemorrhage. There is no evidence of acute intracranial injury or other pathologic process. There is no evidence of an acute ischemic event. Cerebral ventricles: The ventricular system demonstrates mild to moderate diffuse compensatory enlargement. Paranasal sinuses: There is no evidence of fluid levels, mucoperiosteal thickening, or opacification to suggest acute or chronic sinusitis. Mastoid air cells: The mastoid aircells are normal. Orbital cavities: The orbits are normal without evidence of fracture. There is no evidence of retro-bulbar hemorrhage. There is no evidence of globe or lens injury. Bones: There is an old jaylin hole craniotomy change present within the right frontal region. The bony cranium shows no evidence of injury or other acute pathologic processes. Soft tissues: The extracranial soft tissues are normal. Vasculature: Vascular calcifications seen consistent with chronic atherosclerotic cerebrovascular disease. Other findings: There is focal chronic left frontal atrophy present stable compared to prior study. IMPRESSION: 1. Large left frontal extra axial CSF density present measuring 2.9 x 5.4 cm containing focal areas of calcification. This is unchanged compared to prior study of 01/15/2025. This is unchanged compared to the prior studies and is a chronic finding. 2. No evidence of an acute intracranial abnormality. 3. There is moderate age-related atrophy and chronic white matter ischemic changes, with compensatory ventricular dilation. 4. There is an old jaylin hole craniotomy change present within the right frontal region. 5. There is focal chronic left frontal atrophy present stable compared to prior study. Dictated and Authenticated by: Jordy Deng MD. Orderin [facility] Clint Cabello MD
[2025-04-09] MEDS: Dexamethasone 10 MG/ML VIAL IVP (22:04)
[2025-04-09] MEDS: Metoclopramide 10 MG/2 ML VIAL IVP (22:04)
== END 2025-04-09 23:52 | disposition home or self-care (01) ==
PROVIDERS: Emergency Provider Emergency Medicine; PCP Family Medicine
DX: R51.9 Headache, unspecified (principal); R11.2 Nausea with vomiting, unspecified; I10 Essential (primary) hypertension; K59.00 Constipation, unspecified; Z86.79 Personal history of other diseases of the circulatory system
CPT/HCPCS: 36415; 80053; 83690; 93005; 96361; 96374; 96375; 96376; 99285; 70450; 74177; 81003; 83735; 84484; 85025; 85610; 93010; 99284; J0131; J1100; J1171; J2405; J2765; J3490

== ENCOUNTER 2025-04-10 16:12 | Inpatient (IN) | payer MEDICARE, OTHER, SELFPAY ==
[2025-04-10] VITALS (41 sets, daily range): BP systolic 166–226; BP diastolic 90–125; PULSE 118–152; RESP 15–29; TEMP 36.4; O2SAT 93–100
--- NOTE | 2025-04-10 16:15 | RT.EKG_ITS ---
APPROVED REPORT Exam: Resting ECG Reason for Exam: Hypertensive Patient Location: E HR:119 bpm ECG Measurements Heart Rate 119 AXIS MS 95 P 4 QRSd 86 QRS 30 QT 320 T 208 QTc 451 Conclusion Sinus tachycardia...rate> 99 Paired ventricular premature complexes...sequence of 2 V complexes Probable posterior infarct, recent...prom R, STd, V1-3 or Q, Jamila, V7-9 Nonspecific T abnormalities, lateral leads...T <-0.10mV, I aVL V5 V6 No Occlusion SD
--- NOTE | 2025-04-10 16:41 | DI.RAD_ITS ---
Exam(s) XR PORTABLE CHEST AP EXAM: XR PORTABLE CHEST AP CLINICAL HISTORY: Vomiting TECHNIQUE: 2D digital imaging was performed. Portable semi-upright view COMPARISON: CR,XR XR CHEST 2V PA LATERAL from 09/30/[address] CHEST/ABD/PEL W from 03/05/2025 FINDINGS: The exam is limited by poor pulmonary inflation and overlying monitoring leads. LUNGS: The right diaphragm is elevated. The lungs are grossly clear. No pleural abnormality seen. HEART: Partially obscured. Status post CABG. AORTA: Mildly tortuous. BONES: Unremarkable for age. Sternal wires. Soft tissues: Unremarkable. IMPRESSION: No acute findings. DATA REPOSITORY: RADIATION DOSE DELIVERED:
[2025-04-10] MEDS: Normal Saline 1,000 ML 1000 ML IV ×2 (16:46→17:45)
[2025-04-10] MEDS: Droperidol 5 MG/2 ML VIAL IVP (16:47)
[2025-04-10] MEDS: ACETAMINOPHEN 1,000 MG/100 ML BAG 400 MG IVPB (16:53)
[2025-04-10 17:05] LABS: Abs Immature Grans 0.10 10^3/uL (0.0-0.06); HCT 43.2 % (40.0-50.0); HGB 14.8 g/dL (13.5-17.5); Immature Grans % 0.8 %; MCH 28.7 pg (27.0-33.0); MCHC 34.3 % (32.0-36.0); MCV 84 fL (80-95); MPV 8.6 fL (8.0-11.0); Platelet Count 299 10^3/uL (130-400); RBC 5.15 10^6/uL (4.36-5.78); RDW 14.3 % (11.8-14.1); RDW-SD 43.6 fL; WBC 13.12 10^3/uL (4.4-10.8)
[2025-04-10] MEDS: MAGNESIUM SULFATE 2 GM/50 ML BAG IV_INF (17:07)
[2025-04-10 17:21] LABS: ALT 32 U/L (16-63); AST 23 U/L (15-37); Albumin 4.5 g/dL (3.4-5.0); Alkaline Phosphatase 131 U/L (46-116); Anion Gap 15.1 mmol/L (3-11); BUN 19 mg/dL (7-18); Bilirubin, Total 0.4 mg/dL (0.2-1.0); CO2 18.9 mmol/L (21.0-32.0); Calcium 9.7 mg/dL (8.5-10.1); Chloride 98 mmol/L (98-107); Estimated GFR 36.33 (mL/min/1.73m2); Glucose 244 mg/dL (74-106); Potassium 4.0 mmol/L (3.5-5.1); Sodium 132 mmol/L (136-145); Total Protein 8.8 g/dL (6.4-8.2)
[2025-04-10 17:26] LABS: Lipase 80 U/L (<78); Troponin I 31 ng/L (<or=76)
[2025-04-10] MEDS: HYDROmorphone 2 MG/ML SYR 1 MG IVP (17:45)
[2025-04-10] MEDS: Normal Saline - Diluent 50 ML VIAL IJ (18:07)
[2025-04-10] MEDS: Normal Saline Flush 10 ML SYR IVP (18:07)
[2025-04-10] MEDS: Omnipaque 350 MG/ML 100 ML BTL IJ (18:08)
--- NOTE | 2025-04-10 18:20 | DI.CT_ITS ---
Exam(s) CT BRAIN NECK CTA EXAM: CT BRAIN NECK CTA CLINICAL HISTORY: thunderclap headache. TECHNIQUE: Imaging Protocol: Axial CT angiography was performed with multi- slice acquisition and multi-planar and MIP reconstructions. CONTRAST MATERIAL: Intravenous: Omnipaque 350 Contrast volume:100 ml COMPARISON: CT CT HEAD CERVICAL SPINE WO from 06/19/[address] HEAD WO from 04/09/[address] BRAIN NECK CTA from 04/10/2025 FINDINGS: CT Head W/O and W contrast: Ventricles and Extra axial spaces: Normal in size and morphology for the patient's age. Stable area increased CSF space in the left anterior cranial fossa. Hemorrhage: None. Cerebral parenchyma: No evidence of acute infarct or mass. The pituitary and pituitary stalk are again noted to be prominent, unchanged from 2019. Stable mild expansion of the sella. Midline shift: None. Brainstem/Cerebellum: No acute findings.. Calvarium: Normal. Visualized Paranasal sinuses/Mastoids: Clear. Soft Tissues: Unremarkable. Enhancement: Normal. Venous sinuses are patent. CTA Brain W: Internal Carotid Arteries: Right: No aneurysm, occlusion or significant stenosis. Left: No aneurysm, occlusion or significant stenosis. Middle Cerebral Arteries: Right: No aneurysm, occlusion or significant stenosis. Left: No aneurysm, occlusion or significant stenosis. Anterior Cerebral Arteries: Right: No aneurysm, occlusion or significant stenosis. Left: No aneurysm, occlusion or significant stenosis. Posterior cerebral Arteries: Right: No aneurysm, occlusion or significant stenosis. Left: No aneurysm, occlusion or significant stenosis. Vertebral Arteries: Right: No aneurysm, occlusion or significant stenosis. Left: No aneurysm, occlusion or significant stenosis. Basilar Artery: No aneurysm, occlusion or significant stenosis. CTA Neck W: Visualized aorta: Unremarkable. Visualized pulmonary arteries: Unremarkable. Subclavian arteries: Unremarkable. Common Carotid: Right: Moderate plaque at the bulb causing moderate stenosis no dissection, occlusion or significant stenosis. Left: Mild calcific plaque at the bulb. No dissection, occlusion or significant stenosis. External Carotid: Right: No dissection, occlusion or significant stenosis. Left: No dissection, occlusion or significant stenosis. Internal Carotid: Right: Mild calcifications seen in the mid portion. Tortuosity in the distal portion. No dissection, occlusion or significant stenosis. Left: Mild plaque in the midportion. No dissection, occlusion or significant stenosis. Vertebral Artery: Right: Diminutive caliber but patent throughout. No dissection, occlusion or significant stenosis. Left: No dissection, occlusion or significant stenosis. Lung Apices: No acute findings. Bones: No acute abnormality. Degenerative changes in the thoracic spine. Soft Tissues: Normal. IMPRESSION: 1. CTA brain: Normal CTA examination of the [place] [facility] [place]. 2. Head CT: No acute abnormality. 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 Stable mild enlargement of the pituitary gland and pituitary stalk with mild expansion of the sella. 3. CTA neck: Mild to moderate stenosis of the right common carotid bulb and proximal internal carotid artery. No evidence of occlusion or dissection. RADIATION DOSE DELIVERED: Total DLP DATA REPOSITORY: All CT scans at this facility are submitted to the National Radiology Data Registry (NRDR) Dose Index Registry (DIR) with the [employer] ([employer]). RADIATION OPTIMIZATION: All CT scans at this facility use at least one of these dose optimization techniques: automated exposure control; mA and/or kV adjustment per patient size (includes targeted exams where dose is matched to clinical indication); or iterative reconstruction.
--- NOTE | 2025-04-10 18:30 | DI.CT_ITS ---
Exam(s) CT ABDOMEN PELVIS W EXAM: CT ABDOMEN PELVIS W CLINICAL HISTORY: vomiting, concern for SBO. TECHNIQUE: Imaging Protocol: Axial computed tomography images with coronal and sagittal reformatted images were created and reviewed CONTRAST MATERIAL: Intravenous: Omnipaque 350 Contrast volume:100 ml Oral: no COMPARISON: CT CT CHEST/ABD/PEL W from 03/05/[address] ABDOMEN PELVIS W from 04/09/[address] BRAIN NECK CTA from 04/10/2025 FINDINGS: ABDOMEN and PELVIS: Lung Bases: Atelectasis at the right lung base. Status post CABG. Severe elevation of the right diaphragm. Liver: Enlarged with moderate hepatic steatosis. No suspicious mass. Gallbladder and biliary tract: Some contrast is noted in the gallbladder related to previous day's CT.. No wall thickening or pericholecystic fluid. No biliary dilation. Pancreas: Normal density. No abnormal calcifications or inflammatory process. No evidence of mass. Spleen: Normal. Kidneys: Normal size, contour and axis. No radiodense stones. No obstructive uropathy. Stable small bilateral cysts. No suspicious masses seen. Adrenal glands: No masses seen. Vasculature: Abdominal aorta non-dilated. Soft tissues: Unremarkable. Bladder: No gross wall thickening. No calculi.No focal mass. Bowel: The stomach is nearly empty. No small bowel or colonic obstruction. No bowel wall thickening. Appendix is not seen. There are few scattered sigmoid diverticula without evidence of diverticulosis. Normal quantity of stool. Peritoneal cavity: No ascites. No focal collection. No mesenteric inflammatory response. No free air. Bones: Stable mild T12 compression fracture. Degenerative changes are present in the spine and hips. Bone island in left ilium. Reproductive organs: Unremarkable. Lymph nodes: No pathologically enlarged lymph nodes. IMPRESSION:: No acute abnormality in the abdomen or pelvis. Enlarged liver with hepatic steatosis. The right diaphragm is elevated. There is adjacent right lower lobe atelectasis. RADIATION DOSE DELIVERED: Total DLP DATA REPOSITORY: All CT scans at this facility are submitted to the National Radiology Data Registry (NRDR) Dose Index Registry (DIR) with the [employer] ([employer]). RADIATION OPTIMIZATION: All CT scans at this facility use at least one of these dose optimization techniques: automated exposure control; mA and/or kV adjustment per patient size (includes targeted exams where dose is matched to clinical indication); or iterative reconstruction.
[2025-04-10] MEDS: dilTIAZem 25 MG/5 ML VIAL 20 MG IVP (19:03)
[2025-04-10 19:48] LABS: Glucose 250 mg/dL (Negative)
[2025-04-10 19:58] LABS: C & S Indicated? No; WBC 0-2 HPF (0-5)
[2025-04-10 20:12] LABS: Troponin I 50 ng/L (<or=76)
[2025-04-10] MEDS: Prochlorperazine 10 MG/2 ML VIAL 5 MG IVP ×2 (20:15→23:12)
[2025-04-10] MEDS: dilTIAZem 25 MG/5 ML VIAL IVP (20:15)
[2025-04-10] MEDS: dilTIAZem 125 MG in Normal Saline 100 ML IV (21:22)
--- NOTE | 2025-04-10 23:28 | W.ED.GENAD ---
Discharge Plan Discharge Details Chief Complaint: Nausea/Vomit/Diar Primary Care Provider: Alisa Ramirez ED Provider: Rosendo Vasquez Home Meds and New Rx's Prescriptions: No Action finasteride 5 mg tablet 5 mg PO DAILY Qty: 90 4RF mirabegron [Myrbetriq] 25 mg tablet extended release 24 hr 25 mg PO DAILY Qty: 90 3RF multivitamin Tablet 1 tab PO DAILY ketoconazole 2 % cream 1 applic topical DAILY 90 Days Qty: 60 3RF Rx Instructions: Apply to toenails once daily citalopram 20 mg tablet 20 mg PO DAILY allopurinol 300 mg tablet 300 mg PO DAILY riboflavin (vitamin B2) [Vitamin B-2] 100 mg tablet 400 mg PO BID pantoprazole 40 mg tablet,delayed release (DR/EC) 40 mg PO HS pregabalin 100 mg capsule 100 mg PO DAILY Jardiance 25 mg tablet 25 mg PO DAILY acetylcysteine 600 mg capsule 600 mg PO BID levothyroxine 50 MCG tablet 50 mcg PO DAILY@0730 topiramate 50 mg tablet 75 mg PO HS amlodipine 2.5 mg tablet 2.5 mg PO DAILY nitroglycerin 0.4 mg Tablet, Sublingual 0.4 mg sublingual Q5 MIN PRN X3 PRNQty: 12 0RF diltiazem HCl 120 mg Capsule,Extended Release 24hr 120 mg PO DAILY Qty: 90 0RF isosorbide mononitrate 60 mg tablet extended release 24 hr 60 mg PO HS Patient Comments: TAKE 1 TABLET BY MOUTH ONCE DAILY, per taking hs (DME) Accu-Chek Guide test strips Strip MISCELLANEOUS Patient Comments: USE 1 STRIP TO CHECK GLUCOSE TWICE DAILY lisinopril 10 mg tablet 30 mg PO DAILY Patient Comments: TAKE 1 TABLET BY MOUTH ONCE DAILY . TOTAL DOSE 20mg clopidogrel [Plavix] 75 mg tablet 75 mg PO DAILY aspirin 81 mg tablet 81 mg PO DAILY magnesium 200 mg tablet 400 mg PO DAILY bupropion HCl 100 mg tablet sustained-release 12 hr 100 mg PO BID Patient Comments: TAKE 1 TABLET BY MOUTH TWICE DAILY metformin 1,000 mg tablet 1,000 mg PO BID Patient Comments: TAKE 1 TABLET BY MOUTH TWICE DAILY polyethylene glycol 3350 [Miralax] 17 gram powder in packet 17 g PO BID PRN ranolazine 500 mg tablet extended release 12 hr 500 mg PO DAILY acetaminophen [Acetaminophen Extra Strength] 500 mg tablet 1,000 mg PO TID PRN PRN (Reason: pain) Qty: 30 0RF cyanocobalamin (vitamin B-12) 1,000 mcg/mL kit 100 mcg subcut QMONTH metoprolol succinate 100 mg tablet extended release 24 hr 100 mg PO DAILY mupirocin 2 % ointment 1 applic TOPICAL DAILY Patient Comments: APPLY TOPICALLY ONCE DAILY quetiapine 200 mg tablet 300 mg PO HS Patient Comments: TAKE 1 TABLET BY MOUTH ONCE DAILY AT BEDTIME benzonatate 100 mg capsule 100 mg PO TID PRN sodium bicarbonate 650 mg tablet 650 mg PO BID insulin degludec [Tresiba FlexTouch U-200] 200 unit/mL (3 mL) insulin pen 200 unit subcut QHS HPI General Date/Time Provider Initiated Documentation: 04/10/25 16:23. HPI Narrative: MDM/Narrative: 74-year-old male with past medical history of dementia, migraine, CAD, diabetes, presents for headache nausea vomiting abdominal pain. Given patient's symptoms began yesterday had a negative workup to include CT head and felt much better following administration of Dilaudid and Compazine, I am less concern for acute intracranial pathology however as patient complains of worst headache of his life, will consider possible aneurysmal cause, and obtain CTA head and neck. Patient with a history of chronic abdominal pain however given current presentation will consider acute intra-abdominal catastrophe such as perforated viscus and will obtain a CAT scan of the abdomen pelvis. Further patient also presents with significant tachycardia and hypertension, making hypertensive emergency, ACS, possible diagnoses. Will obtain screening labs including troponin, and attempt to control patient's blood pressure and heart rate if pain control does not improve hemodynamics. Suspect patient may require admission for further management given his multiple comorbidities. ED course: After initial treatment with droperidol, IV Tylenol, patient notes severe headache persists, as well as severe abdominal pain will treat with Dilaudid 1 mg IV. Patient notes some improvement in his nausea however pain is not improved and further his vital signs still are notable for significant tachycardia and hypertension. Unclear if patient took his medications because he notes that he did take them however he was vomiting shortly thereafter. As such we will attempt to break control and drop patient's pressure with diltiazem. Initial boluses of diltiazem have not had any effect we will start a drip. Notable lactate of 3.9, patient will receive fluid resuscitation. Suspect this is likely due to persistent vomiting, will hold antibiotics at this time as patient does not of a clinical picture consistent with sepsis. Plan of care discussed with Dr. Le hospitalist who is reviewed the case and is agreeable to plan for admission for management of the patient's persistent headaches, abdominal pain, elevated blood pressure and heart rate. Clinical impression: Tachycardia Status migrainous Nausea and vomiting Abdominal pain Lactic acidosis Dementia Disposition: Admit to [facility] HPI: 74-year-old male with past med history of dementia, migraines, CAD, diabetes, presents for evaluation of headache and abdominal pain. Patient was evaluated emergency department last night for similar complaints, and was discharged after negative workup including CT head and labs, and improvement of his symptoms following ministration of Compazine, and Dilaudid. Patient states that he had persistent headache, nausea or vomiting which reoccurred shortly after arriving home last night and has been persistent today. He notes that he take his chronic medications today at 5 PM however he shortly then threw up and is unsure how much of his medications he truly received. He notes persistent headache which is similar to his chronic migraines but has never been this bad in his life, and notes periumbilical abdominal pain which is unchanged since yesterday. Denies any associated fever, chills, diarrhea, bloody stools, numbness, weakness, change in vision, changes in speech or any other new or concerning symptoms. ROS: Negative besides as mentioned above Exam: Gen: A&O NAD HEENT: NCAT, EOMI, not icteric. External ears normal. No rhinorrhea. Moist mucous membranes. Neck: Supple, full range of motion, no observable masses, No meningeal sign. Lungs: No Respiratory distress. CV: RRR, no edema. Abdomen: Soft, nondistended, No rebound tenderness. MSK: No joint swelling, no redness. Skin: No rashes, petechiae, lesions. Normal color per patient. Neuro: Normal Gait, Grossly intact. Psych: Appropriate for situation. Labs: Laboratory Tests Range/Units 04/10/25 04/10/25 04/10/25 16:50 18:40 19:23 WBC (4.4-10.8) 10^3/uL 13.12 H RBC (4.36-5.78) 10^6/uL 5.15 Hgb (13.5-17.5) g/dL 14.8 Hct (40.0-50.0) % 43.2 MCV (80-95) fL 84 MCH (27.0-33.0) pg 28.7 MCHC (32.0-36.0) % 34.3 RDW (11.8-14.1) % 14.3 H Plt Count (130-400) 10^3/uL 299 MPV (8.0-11.0) fL 8.6 Immature Gran % % 0.8 Neutrophils % % 87.3 Lymphocytes % % 5.6 Monocytes % % 6.0 Eosinophils % % 0.0 Basophils % % 0.3 Nucleated RBC % (0.0-0.3) % 0.0 Absolute Neutrophils (1.2-6.7) 10^3/uL 11.45 H Absolute Lymphocytes (1.2-3.4) 10^3/uL 0.73 L Absolute Monocytes (0.1-0.8) 10^3/uL 0.79 Absolute Eosinophils (0.0-0.7) 10^3/uL 0.00 Absolute Basophils (0.0-0.2) 10^3/uL 0.04 VBG Lactate (<or=2.0) mmol/L 3.9 H* Sodium (136-145) mmol/L 132 L Potassium (3.5-5.1) mmol/L 4.0 Chloride (98-107) mmol/L 98 Carbon Dioxide (21.0-32.0) mmol/L 18.9 L Anion Gap (3-11) mmol/L 15.1 H BUN (7-18) mg/dL 19 H Creatinine (0.70-1.30) mg/dL 1.9 H Est GFR (CKD-EPI 2020) (mL/min/1.73m2) 36.33 Glucose (74-106) mg/dL 244 H Calcium (8.5-10.1) mg/dL 9.7 Total Bilirubin (0.2-1.0) mg/dL 0.4 AST (15-37) U/L 23 ALT (16-63) U/L 32 Alkaline Phosphatase (46-116) U/L 131 H Troponin I (<or=76) ng/L 31 Cancelled Total Protein (6.4-8.2) g/dL 8.8 H Albumin (3.4-5.0) g/dL 4.5 Lipase (<78) U/L 80 H Urine Color (Yellow) Yellow Urine Clarity (Clear) Clear Urine pH (5-8) 6.5 Ur Specific [place] (1.005-1.025) 1.015 Urine Protein (Neg-Trace) mg/dL 100 H Urine Ketones (Negative) mg/dL Negative Urine Blood (Negative) Moderate H Urine Nitrite (Negative) Negative Urine Bilirubin (Negative) Negative Urine Urobilinogen (Up to 0.2) mg/dL 0.2 Ur Leukocyte Esterase (Negative) Negative Urine RBC (0-2) HPF 10-20 H Urine WBC (0-5) HPF 0-2 Ur Epithelial Cells (Negative) HPF Rare Urine Crystals (Negative) HPF Negative Urine Bacteria (Negative) HPF Rare Urine Casts (Negative) LPF Negative Urine Mucus (Negative) Negative Ur Culture Indicated? No Urine Glucose (Negative) mg/dL 250 H Range/Units 04/10/25 19:32 WBC (4.4-10.8) 10^3/uL RBC (4.36-5.78) 10^6/uL Hgb (13.5-17.5) g/dL Hct (40.0-50.0) % MCV (80-95) fL MCH (27.0-33.0) pg MCHC (32.0-36.0) % RDW (11.8-14.1) % Plt Count (130-400) 10^3/uL MPV (8.0-11.0) fL Immature Gran % % Neutrophils % % Lymphocytes % % Monocytes % % Eosinophils % % Basophils % % Nucleated RBC % (0.0-0.3) % Absolute Neutrophils (1.2-6.7) 10^3/uL Absolute Lymphocytes (1.2-3.4) 10^3/uL Absolute Monocytes (0.1-0.8) 10^3/uL Absolute Eosinophils (0.0-0.7) 10^3/uL Absolute Basophils (0.0-0.2) 10^3/uL VBG Lactate (<or=2.0) mmol/L Sodium (136-145) mmol/L Potassium (3.5-5.1) mmol/L Chloride (98-107) mmol/L Carbon Dioxide (21.0-32.0) mmol/L Anion Gap (3-11) mmol/L BUN (7-18) mg/dL Creatinine (0.70-1.30) mg/dL Est GFR (CKD-EPI 2020) (mL/min/1.73m2) Glucose (74-106) mg/dL Calcium (8.5-10.1) mg/dL Total Bilirubin (0.2-1.0) mg/dL AST (15-37) U/L ALT (16-63) U/L Alkaline Phosphatase (46-116) U/L Troponin I (<or=76) ng/L 50 Total Protein (6.4-8.2) g/dL Albumin (3.4-5.0) g/dL Lipase (<78) U/L Urine Color (Yellow) Urine Clarity (Clear) Urine pH (5-8) Ur Specific [place] (1.005-1.025) Urine Protein (Neg-Trace) mg/dL Urine Ketones (Negative) mg/dL Urine Blood (Negative) Urine Nitrite (Negative) Urine Bilirubin (Negative) Urine Urobilinogen (Up to 0.2) mg/dL Ur Leukocyte Esterase (Negative) Urine RBC (0-2) HPF Urine WBC (0-5) HPF Ur Epithelial Cells (Negative) HPF Urine Crystals (Negative) HPF Urine Bacteria (Negative) HPF Urine Casts (Negative) LPF Urine Mucus (Negative) Ur Culture Indicated? Urine Glucose (Negative) mg/dL Radiology: Exam(s) CT BRAIN NECK CTA EXAM: CT BRAIN NECK CTA CLINICAL HISTORY: thunderclap headache. TECHNIQUE: Imaging Protocol: Axial CT angiography was performed with multi-slice acquisition and multi-planar and MIP reconstructions. CONTRAST MATERIAL: Intravenous: Omnipaque 350 Contrast volume:100 ml COMPARISON: CT CT HEAD CERVICAL SPINE WO from 06/19/[address] HEAD WO from 04/09/[address] BRAIN NECK CTA from 04/10/2025 FINDINGS: CT Head W/O and W contrast: Ventricles and Extra axial spaces: Normal in size and morphology for the patient's age. Stable area increased CSF space in the left anterior cranial fossa. Hemorrhage: None. Cerebral parenchyma: No evidence of acute infarct or mass. The pituitary and pituitary stalk are again noted to be prominent, unchanged from 2020. Stable mild expansion of the sella. Midline shift: None. Brainstem/Cerebellum: No acute findings.. Calvarium: Normal. Visualized Paranasal sinuses/Mastoids: Clear. Soft Tissues: Unremarkable. Enhancement: Normal. Venous sinuses are patent. CTA Brain W: Internal Carotid Arteries: Right: No aneurysm, occlusion or significant stenosis. Left: No aneurysm, occlusion or significant stenosis. Middle Cerebral Arteries: Right: No aneurysm, occlusion or significant stenosis. Left: No aneurysm, occlusion or significant stenosis. Anterior Cerebral Arteries: Right: No aneurysm, occlusion or significant stenosis. Left: No aneurysm, occlusion or significant stenosis. Posterior cerebral Arteries: Right: No aneurysm, occlusion or significant stenosis. Left: No aneurysm, occlusion or significant stenosis. Vertebral Arteries: Right: No aneurysm, occlusion or significant stenosis. Left: No aneurysm, occlusion or significant stenosis. Basilar Artery: No aneurysm, occlusion or significant stenosis. CTA Neck W: Visualized aorta: Unremarkable. Visualized pulmonary arteries: Unremarkable. Subclavian arteries: Unremarkable. Common Carotid: Right: Moderate plaque at the bulb causing moderate stenosis no dissection, occlusion or significant stenosis. Left: Mild calcific plaque at the bulb. No dissection, occlusion or significant stenosis. External Carotid: Right: No dissection, occlusion or significant stenosis. Left: No dissection, occlusion or significant stenosis. Internal Carotid: Right: Mild calcifications seen in the mid portion. Tortuosity in the distal portion. No dissection, occlusion or significant stenosis. Left: Mild plaque in the midportion. No dissection, occlusion or significant stenosis. Vertebral Artery: Right: Diminutive caliber but patent throughout. No dissection, occlusion or significant stenosis. Left: No dissection, occlusion or significant stenosis. Lung Apices: No acute findings. Bones: No acute abnormality. Degenerative changes in the thoracic spine. Soft Tissues: Normal. IMPRESSION: 1. CTA brain: Normal CTA examination of the [place]. 2. Head CT: No acute abnormality. 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 Stable mild enlargement of the pituitary gland and pituitary stalk with mild expansion of the sella. 3. CTA neck: Mild to moderate stenosis of the right common carotid bulb and proximal internal carotid artery. No evidence of occlusion or dissection. Exam(s) CT ABDOMEN PELVIS W EXAM: CT ABDOMEN PELVIS W CLINICAL HISTORY: vomiting, concern for SBO. TECHNIQUE: Imaging Protocol: Axial computed tomography images with coronal and sagittal reformatted images were created and reviewed CONTRAST MATERIAL: Intravenous: Omnipaque 350 Contrast volume:100 ml Oral: no COMPARISON: CT CT CHEST/ABD/PEL W from 03/05/[address] ABDOMEN PELVIS W from 04/09/[address] BRAIN NECK CTA from 04/10/2025 FINDINGS: ABDOMEN and PELVIS: Lung Bases: Atelectasis at the right lung base. Status post CABG. Severe elevation of the right diaphragm. Liver: Enlarged with moderate hepatic steatosis. No suspicious mass. Gallbladder and biliary tract: Some contrast is noted in the gallbladder related to previous day's CT.. No wall thickening or pericholecystic fluid. No biliary dilation. Pancreas: Normal density. No abnormal calcifications or inflammatory process. No evidence of mass. Spleen: Normal. Kidneys: Normal size, contour and axis. No radiodense stones. No obstructive uropathy. Stable small bilateral cysts. No suspicious masses seen. Adrenal glands: No masses seen. Vasculature: Abdominal aorta non-dilated. Soft tissues: Unremarkable. Bladder: No gross wall thickening. No calculi.No focal mass. Bowel: The stomach is nearly empty. No small bowel or colonic obstruction. No bowel wall thickening. Appendix is not seen. There are few scattered sigmoid diverticula without evidence of diverticulosis. Normal quantity of stool. Peritoneal cavity: No ascites. No focal collection. No mesenteric inflammatory response. No free air. Bones: Stable mild T12 compression fracture. Degenerative changes are present in the spine and hips. Bone island in left ilium. Reproductive organs: Unremarkable. Lymph nodes: No pathologically enlarged lymph nodes. IMPRESSION:: No acute abnormality in the abdomen or pelvis. Enlarged liver with hepatic steatosis. The right diaphragm is elevated. There is adjacent right lower lobe atelectasis. Related Data Home Medications ?Medication ?Instructions ?Recorded ?Confirmed levothyroxine 50 mcg tablet 50 mcg PO DAILY@0730 01/24/13 04/09/25 topiramate 50 mg tablet 75 mg PO HS 01/09/21 04/09/25 amlodipine 2.5 mg tablet 2.5 mg PO DAILY 08/18/21 04/09/25 finasteride 5 mg tablet 5 mg PO DAILY #90 tabs 08/18/21 04/09/25 riboflavin (vitamin B2) 100 mg 400 mg PO BID 06/25/22 04/09/25 tablet (Vitamin B-2) mirabegron 25 mg tablet,extended 25 mg PO DAILY #90 tabs 03/11/23 04/09/25 release 24 hr (Myrbetriq) ketoconazole 2 % topical cream 1 applic topical DAILY 3 months 04/27/23 04/09/25 #60 grams ranolazine 500 mg tablet,extended 500 mg PO DAILY 05/24/23 04/09/25 release,12 hr acetaminophen 500 mg tablet 1,000 mg (2 x 500 mg) PO TID PRN 05/25/23 04/09/25 (Acetaminophen Extra Strength) PRN pain #30 tabs multivitamin 1 tab PO DAILY 12/20/23 04/09/25 allopurinol 300 mg tablet 300 mg PO DAILY 02/03/24 04/09/25 citalopram 20 mg tablet 20 mg PO DAILY 02/03/24 04/09/25 pantoprazole 40 mg tablet,delayed 40 mg PO HS 02/29/24 04/09/25 release pregabalin 100 mg capsule 100 mg PO DAILY 02/29/24 04/09/25 diltiazem HCl 120 mg 120 mg PO DAILY #90 caps 07/26/24 04/09/25 capsule,extended release 24 hr nitroglycerin 0.4 mg sublingual 0.4 mg sublingual Q5 MIN PRN X3 07/26/24 04/09/25 tablet PRN #12 tabs blood sugar diagnostic (Accu-Chek 07/30/24 03/05/25 Guide test strips) isosorbide mononitrate 60 mg 60 mg PO HS 07/30/24 04/09/25 tablet,extended release 24 hr lisinopril 10 mg tablet 30 mg PO DAILY 07/30/24 04/09/25 acetylcysteine 600 mg capsule 600 mg PO BID 09/14/24 04/09/25 empagliflozin 25 mg tablet 25 mg PO DAILY 09/14/24 04/09/25 (Jardiance) benzonatate 100 mg capsule 100 mg PO TID PRN 09/30/24 04/09/25 cyanocobalamin (vitamin B-12) 100 mcg subcut QMONTH 09/30/24 04/09/25 1,000 mcg/mL injection kit insulin degludec 200 unit/mL (3 200 unit subcut QHS 09/30/24 04/09/25 mL) subcutaneous pen (Tresiba FlexTouch U-200 insulin) metoprolol succinate 100 mg 100 mg PO DAILY 09/30/24 04/09/25 tablet,extended release 24 hr mupirocin 2 % topical ointment 1 applic topical DAILY 09/30/24 04/09/25 quetiapine 200 mg tablet 300 mg PO HS 09/30/24 04/09/25 sodium bicarbonate 650 mg tablet 650 mg PO BID 09/30/24 04/09/25 aspirin 81 mg tablet 81 mg PO DAILY 11/15/24 04/09/25 clopidogrel 75 mg tablet (Plavix) 75 mg PO DAILY 11/15/24 04/09/25 bupropion HCl 100 mg tablet,12 hr 100 mg PO BID 01/15/25 04/09/25 sustained-release magnesium 200 mg tablet 400 mg PO DAILY 01/15/25 04/09/25 metformin 1,000 mg tablet 1,000 mg PO BID 01/15/25 04/09/25 polyethylene glycol 3350 17 gram 17 g PO BID PRN 01/15/25 04/09/25 oral powder packet (Miralax) Previous Rx's ?Medication ?Instructions ?Recorded finasteride 5 mg tablet 5 mg PO DAILY #90 tabs 08/18/21 mirabegron 25 mg tablet,extended 25 mg PO DAILY #90 tabs 03/11/23 release 24 hr (Myrbetriq) ketoconazole 2 % topical cream 1 applic topical DAILY 3 months 04/27/23 #60 grams acetaminophen 500 mg tablet 1,000 mg (2 x 500 mg) PO TID PRN 05/25/23 (Acetaminophen Extra Strength) PRN pain #30 tabs diltiazem HCl 120 mg 120 mg PO DAILY #90 caps 07/26/24 capsule,extended release 24 hr nitroglycerin 0.4 mg sublingual 0.4 mg sublingual Q5 MIN PRN X3 07/26/24 tablet PRN #12 tabs Allergies Allergy/AdvReac Type Severity Reaction Status Date / Time amoxicillin Allergy Severe breathing Verified 04/09/25 18:51 difficuty and vomiting Penicillins Allergy Intermediate Skin Rash Verified 04/09/25 18:51 sulfamethoxazole (From Allergy Intermediate Skin Rash Verified 04/09/25 18:51 Bactrim) trimethoprim (From Bactrim) Allergy Intermediate Skin Rash Verified 04/09/25 18:51 bacitracin AdvReac Severe Skin Rash Verified 04/09/25 18:51 oxycodone HCl (From Percocet) AdvReac Severe Contraindic Verified 04/09/25 18:51 ated oxycodone terephthalate AdvReac Severe Contraindic Verified 04/09/25 18:51 (From Percodan) ated atorvastatin AdvReac Intermediate Other (See Verified 04/09/25 18:51 Comment) rosuvastatin (From Crestor) AdvReac Intermediate Other (See Verified 04/09/25 18:51 Comment) General Stated Complaint: Nausea/Vomit/Diar MADELIN: 2 Course Vital Signs Vital signs: Vital Signs Temperature 36.4 C 04/10/25 16:16 Pulse 134 H 04/10/25 16:16 Respiratory Rate 18 04/10/25 16:16 Blood Pressure 226/125 H 04/10/25 16:16 Pulse Oximetry 100 04/10/25 16:16 Temperature 36.4 C 04/10/25 16:24 Pulse 131 H 04/10/25 20:50 Pulse 131 H 04/10/25 20:50 Respiratory Rate 16 04/10/25 20:50 Blood Pressure 199/104 H 04/10/25 20:46 Blood Pressure Mean 135 04/10/25 20:46 Pulse Oximetry 94 04/10/25 20:50 Oxygen Delivery Method Room Air 04/10/25 16:24 Oxygen Flow Rate 0 04/10/25 16:24 Pain Level 10 04/10/25 17:45 Lab/Test Results Lab/Test Results: Laboratory Tests Range/Units 04/10/25 04/10/25 04/10/25 16:50 18:40 19:23 WBC (4.4-10.8) 10^3/uL 13.12 H RBC (4.36-5.78) 10^6/uL 5.15 Hgb (13.5-17.5) g/dL 14.8 Hct (40.0-50.0) % 43.2 MCV (80-95) fL 84 MCH (27.0-33.0) pg 28.7 MCHC (32.0-36.0) % 34.3 RDW (11.8-14.1) % 14.3 H Plt Count (130-400) 10^3/uL 299 MPV (8.0-11.0) fL 8.6 Immature Gran % % 0.8 Neutrophils % % 87.3 Lymphocytes % % 5.6 Monocytes % % 6.0 Eosinophils % % 0.0 Basophils % % 0.3 Nucleated RBC % (0.0-0.3) % 0.0 Absolute Neutrophils (1.2-6.7) 10^3/uL 11.45 H Absolute Lymphocytes (1.2-3.4) 10^3/uL 0.73 L Absolute Monocytes (0.1-0.8) 10^3/uL 0.79 Absolute Eosinophils (0.0-0.7) 10^3/uL 0.00 Absolute Basophils (0.0-0.2) 10^3/uL 0.04 VBG Lactate (<or=2.0) mmol/L 3.9 H* Sodium (136-145) mmol/L 132 L Potassium (3.5-5.1) mmol/L 4.0 Chloride (98-107) mmol/L 98 Carbon Dioxide (21.0-32.0) mmol/L 18.9 L Anion Gap (3-11) mmol/L 15.1 H BUN (7-18) mg/dL 19 H Creatinine (0.70-1.30) mg/dL 1.9 H Est GFR (CKD-EPI 2020) (mL/min/1.73m2) 36.33 Glucose (74-106) mg/dL 244 H Calcium (8.5-10.1) mg/dL 9.7 Total Bilirubin (0.2-1.0) mg/dL 0.4 AST (15-37) U/L 23 ALT (16-63) U/L 32 Alkaline Phosphatase (46-116) U/L 131 H Troponin I (<or=76) ng/L 31 Cancelled Total Protein (6.4-8.2) g/dL 8.8 H Albumin (3.4-5.0) g/dL 4.5 Lipase (<78) U/L 80 H Urine Color (Yellow) Yellow Urine Clarity (Clear) Clear Urine pH (5-8) 6.5 Ur Specific [place] (1.005-1.025) 1.015 Urine Protein (Neg-Trace) mg/dL 100 H Urine Ketones (Negative) mg/dL Negative Urine Blood (Negative) Moderate H Urine Nitrite (Negative) Negative Urine Bilirubin (Negative) Negative Urine Urobilinogen (Up to 0.2) mg/dL 0.2 Ur Leukocyte Esterase (Negative) Negative Urine RBC (0-2) HPF 10-20 H Urine WBC (0-5) HPF 0-2 Ur Epithelial Cells (Negative) HPF Rare Urine Crystals (Negative) HPF Negative Urine Bacteria (Negative) HPF Rare Urine Casts (Negative) LPF Negative Urine Mucus (Negative) Negative Ur Culture Indicated? No Urine Glucose (Negative) mg/dL 250 H Range/Units 04/10/25 19:32 WBC (4.4-10.8) 10^3/uL RBC (4.36-5.78) 10^6/uL Hgb (13.5-17.5) g/dL Hct (40.0-50.0) % MCV (80-95) fL MCH (27.0-33.0) pg MCHC (32.0-36.0) % RDW (11.8-14.1) % Plt Count (130-400) 10^3/uL MPV (8.0-11.0) fL Immature Gran % % Neutrophils % % Lymphocytes % % Monocytes % % Eosinophils % % Basophils % % Nucleated RBC % (0.0-0.3) % Absolute Neutrophils (1.2-6.7) 10^3/uL Absolute Lymphocytes (1.2-3.4) 10^3/uL Absolute Monocytes (0.1-0.8) 10^3/uL Absolute Eosinophils (0.0-0.7) 10^3/uL Absolute Basophils (0.0-0.2) 10^3/uL VBG Lactate (<or=2.0) mmol/L Sodium (136-145) mmol/L Potassium (3.5-5.1) mmol/L Chloride (98-107) mmol/L Carbon Dioxide (21.0-32.0) mmol/L Anion Gap (3-11) mmol/L BUN (7-18) mg/dL Creatinine (0.70-1.30) mg/dL Est GFR (CKD-EPI 2020) (mL/min/1.73m2) Glucose (74-106) mg/dL Calcium (8.5-10.1) mg/dL Total Bilirubin (0.2-1.0) mg/dL AST (15-37) U/L ALT (16-63) U/L Alkaline Phosphatase (46-116) U/L Troponin I (<or=76) ng/L 50 Total Protein (6.4-8.2) g/dL Albumin (3.4-5.0) g/dL Lipase (<78) U/L Urine Color (Yellow) Urine Clarity (Clear) Urine pH (5-8) Ur Specific [place] (1.005-1.025) Urine Protein (Neg-Trace) mg/dL Urine Ketones (Negative) mg/dL Urine Blood (Negative) Urine Nitrite (Negative) Urine Bilirubin (Negative) Urine Urobilinogen (Up to 0.2) mg/dL Ur Leukocyte Esterase (Negative) Urine RBC (0-2) HPF Urine WBC (0-5) HPF Ur Epithelial Cells (Negative) HPF Urine Crystals (Negative) HPF Urine Bacteria (Negative) HPF Urine Casts (Negative) LPF Urine Mucus (Negative) Ur Culture Indicated? Urine Glucose (Negative) mg/dL PFSH All Active Problems (Updated 04/09/25 @ 22:53 by Destiney Unger MD) Constipation (Acute) Vomiting (Acute) Headache (Acute) Lumbar radiculitis (Acute) Cellulitis (Acute) Non-ST elevation [place] (NSTEMI) (Acute) Mid back pain (Acute) Pressure ulcer of buttock (Acute) Chronic pain of toe of right foot (Acute) Nutcracker esophagus (Acute) Stress fracture, right foot, initial encounter for fracture (Acute) Ulcer of right foot with fat layer exposed (Acute) Exostosis of right foot (Acute) Preoperative cardiovascular examination (Acute) Atherosclerosis

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
[2025-04-10 23:55] LABS: Hemoglobin A1C 7.5 % (<5.7)
[2025-04-10] MEDS: Labetalol 100 MG/20 ML VIAL 20 MG IVP (23:59)
[2025-04-11] VITALS (14 sets, daily range): BP systolic 111–167; BP diastolic 70–103; PULSE 99–138; RESP 16–22; TEMP 36.1–37; O2SAT 94–97
--- NOTE | 2025-04-11 00:20 | W.PC.ACHO ---
Registration Status: REG ER Primary Language: Preferred Language: Lao ED Information & Data Chief Complaint Nausea/Vomit/Diar 04/10/25 23:29 Triage Note Pt complaining of vomiting 04/10/25 16:16 since yesterday Medical / Surgical History (Last Reviewed 03/08/25 @ 09:49 by An Shi, RN) Chest pain Traumatic brain injury Chronic subdural hematoma Partial tear of left rotator cuff Atypical chest pain Sensory hearing loss, bilateral (04/09/14) Hypertrophy of nasal turbinates (08/05/15) Deviated nasal septum (08/05/15) Trochanteric bursitis, right hip Tendinitis involving hip abductors Acute serous otitis media of left ear Lumbar contusion Blunt head trauma BABS (acute kidney injury) Lipoma of lower extremity Alcohol abuse Tinea pedis History of subdural hematoma Hip joint pain Callus of foot Pain, joint, shoulder region, left Ataxia Left cervical radiculopathy Cecal volvulus Viral URI with cough UTI (urinary tract infection) Rhinorrhea Knee pain, right Rathke's pouch cyst Hx of traumatic brain injury Recurrent UTI Constipation, chronic Pain in joint of right foot Left rib fracture Contusion of right hip Head trauma Right sided weakness Urethral stricture (08/20/15) Postnasal drip (05/13/15) H/O alcohol abuse MRSA infection Depression Colon polyps Urethral stricture Chronic low back pain Diastasis recti Headaches due to 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 Hx of deep venous thrombosis (Last Reviewed 03/08/25 @ 09:49 by An Shi, RN) History of cardiac cath History of colonoscopy with polypectomy (~09/24/22) facial lesion removal electroconvulsive therapy Repair of umbilical hernia Repair of inguinal hernia (08/05/17) Colonoscopy - MAC Extraction of cataract Coronary Artery Bypass Gaft (CABG) Appendectomy (06/01/16) Most Recent Vital Signs Temperature 36.4 C 04/10/25 16:24 Pulse 120 H 04/11/25 00:06 Pulse 131 H 04/10/25 20:50 Respiratory Rate 16 04/10/25 20:50 Blood Pressure 154/81 H 04/11/25 00:06 Blood Pressure Mean 105 04/11/25 00:06 Pulse Oximetry 94 04/10/25 20:50 Oxygen Delivery Method Room Air 04/10/25 16:24 Oxygen Flow Rate 0 04/10/25 16:24 Pain Level 10 04/10/25 17:45 Allergies amoxicillin Allergy (Severe, Verified 04/09/25 18:51) breathing difficuty and vomiting Penicillins Allergy (Intermediate, Verified 04/09/25 18:51) Skin Rash sulfamethoxazole (From Bactrim) Allergy (Intermediate, Verified 04/09/25 18:51) Skin Rash trimethoprim (From Bactrim) Allergy (Intermediate, Verified 04/09/25 18:51) Skin Rash bacitracin Adverse Reaction (Severe, Verified 04/09/25 18:51) Skin Rash oxycodone HCl (From Percocet) Adverse Reaction (Severe, Verified 04/09/25 18:51) Contraindicated stares into space oxycodone terephthalate (From Percodan) Adverse Reaction (Severe, Verified 04/09/25 18:51) Contraindicated stares into space atorvastatin Adverse Reaction (Intermediate, Verified 04/09/25 18:51) Other (See Comment) Weakness/falls rosuvastatin (From Crestor) Adverse Reaction (Intermediate, Verified 04/09/25 18:51) Other (See Comment) Weakness/falls Active Medications Generic Name Dose Route Start Last Admin Trade Name Freq PRN Reason Stop Dose Admin Iohexol 100 ml 04/10/25 18:15 04/10/25 18:08 Omnipaque 350 Mg/Ml 100 Ml Btl IJ 05/10/25 23:59 100 ml DIRECTED ALESSIO Administration Labetalol HCl 20 mg 04/10/25 23:30 04/10/25 23:59 Labetalol 100 Mg/20 Ml Vial IVP 20 mg NOW ALESSIO Administration Sodium Chloride 0 ml 04/10/25 18:06 04/10/25 18:07 Normal Saline Flush 10 Ml Syr IVP 10 ml PRN PRN Administration Sodium Chloride 50 ml 04/10/25 18:15 04/10/25 18:07 Normal Saline - Diluent 50 Ml Vial IJ 50 ml DIRECTED ALESSIO Administration IV IV Catheter Type [Right Saline Lock Forearm] IV Catheter Gauge [Right 18 Forearm] Diet Orders Category Date Time Status Regular/Normal [DIET] Nutrition 04/11/25 Breakfast Active Diagnostics 04/11/25 04/11/25 04/10/25 Range/Units 08:30 05:35 21:14 WBC Pending (4.4-10.8) 10^3/uL RBC Pending (4.36-5.78) 10^6/uL Hgb Pending (13.5-17.5) g/dL Hct Pending (40.0-50.0) % MCV Pending (80-95) fL MCH Pending (27.0-33.0) pg MCHC Pending (32.0-36.0) % RDW Pending (11.8-14.1) % Plt Count Pending (130-400) 10^3/uL MPV Pending (8.0-11.0) fL Immature Gran % Pending % Neutrophils % Pending % Lymphocytes % Pending % Monocytes % Pending % Eosinophils % Pending % Basophils % Pending % Nucleated RBC % (0.0-0.3) % Absolute Neutrophils Pending (1.2-6.7) 10^3/uL Absolute Lymphocytes Pending (1.2-3.4) 10^3/uL Absolute Monocytes Pending (0.1-0.8) 10^3/uL Absolute Eosinophils Pending (0.0-0.7) 10^3/uL Absolute Basophils Pending (0.0-0.2) 10^3/uL VBG Lactate Pending (<or=2.0) mmol/L Sodium Pending (136-145) mmol/L Potassium Pending (3.5-5.1) mmol/L Chloride Pending (98-107) mmol/L Carbon Dioxide Pending (21.0-32.0) mmol/L Anion Gap Pending (3-11) mmol/L BUN Pending (7-18) mg/dL Creatinine Pending (0.70-1.30) mg/dL Est GFR (CKD-EPI 2020) Pending (mL/min/1.73m2) Glucose Pending (74-106) mg/dL Hemoglobin A1c (<5.7) % Calcium Pending (8.5-10.1) mg/dL Total Bilirubin Pending (0.2-1.0) mg/dL AST Pending (15-37) U/L ALT Pending (16-63) U/L Alkaline Phosphatase Pending (46-116) U/L Troponin I (<or=76) ng/L Total Protein Pending (6.4-8.2) g/dL Albumin Pending (3.4-5.0) g/dL Lipase (<78) U/L TSH Pending Urine Color Pending (Yellow) Urine Clarity Pending (Clear) Urine pH Pending (5-8) Ur Specific [place] Pending (1.005-1.025) Urine Protein Pending (Neg-Trace) mg/dL Urine Ketones Pending (Negative) mg/dL Urine Blood Pending (Negative) Urine Nitrite Pending (Negative) Urine Bilirubin Pending (Negative) Urine Urobilinogen Pending (Up to 0.2) mg/dL Ur Leukocyte Esterase Pending (Negative) Urine RBC (0-2) HPF Urine WBC (0-5) HPF Ur Epithelial Cells (Negative) HPF Urine Crystals (Negative) HPF Urine Bacteria (Negative) HPF Urine Casts (Negative) LPF Urine Mucus (Negative) Ur Culture Indicated? Urine Glucose Pending (Negative) mg/dL 04/10/25 04/10/25 04/10/25 Range/Units 19:32 19:23 18:40 WBC (4.4-10.8) 10^3/uL RBC (4.36-5.78) 10^6/uL Hgb (13.5-17.5) g/dL Hct (40.0-50.0) % MCV (80-95) fL MCH (27.0-33.0) pg MCHC (32.0-36.0) % RDW (11.8-14.1) % Plt Count (130-400) 10^3/uL MPV (8.0-11.0) fL Immature Gran % % Neutrophils % % Lymphocytes % % Monocytes % % Eosinophils % % Basophils % % Nucleated RBC % (0.0-0.3) % Absolute Neutrophils (1.2-6.7) 10^3/uL Absolute Lymphocytes (1.2-3.4) 10^3/uL Absolute Monocytes (0.1-0.8) 10^3/uL Absolute Eosinophils (0.0-0.7) 10^3/uL Absolute Basophils (0.0-0.2) 10^3/uL VBG Lactate (<or=2.0) mmol/L Sodium (136-145) mmol/L Potassium (3.5-5.1) mmol/L Chloride (98-107) mmol/L Carbon Dioxide (21.0-32.0) mmol/L Anion Gap (3-11) mmol/L BUN (7-18) mg/dL Creatinine (0.70-1.30) mg/dL Est GFR (CKD-EPI 2020) (mL/min/1.73m2) Glucose (74-106) mg/dL Hemoglobin A1c (<5.7) % Calcium (8.5-10.1) mg/dL Total Bilirubin (0.2-1.0) mg/dL AST (15-37) U/L ALT (16-63) U/L Alkaline Phosphatase (46-116) U/L Troponin I 50 Cancelled (<or=76) ng/L Total Protein (6.4-8.2) g/dL Albumin (3.4-5.0) g/dL Lipase (<78) U/L TSH Urine Color Yellow (Yellow) Urine Clarity Clear (Clear) Urine pH 6.5 (5-8) Ur Specific [place] 1.015 (1.005-1.025) Urine Protein 100 H (Neg-Trace) mg/dL Urine Ketones Negative (Negative) mg/dL Urine Blood Moderate H (Negative) Urine Nitrite Negative (Negative) Urine Bilirubin Negative (Negative) Urine Urobilinogen 0.2 (Up to 0.2) mg/dL Ur Leukocyte Esterase Negative (Negative) Urine RBC 10-20 H (0-2) HPF Urine WBC 0-2 (0-5) HPF Ur Epithelial Cells Rare (Negative) HPF Urine Crystals Negative (Negative) HPF Urine Bacteria Rare (Negative) HPF Urine Casts Negative (Negative) LPF Urine Mucus Negative (Negative) Ur Culture Indicated? No Urine Glucose 250 H (Negative) mg/dL 04/10/25 Range/Units 16:50 WBC 13.12 H (4.4-10.8) 10^3/uL RBC 5.15 (4.36-5.78) 10^6/uL Hgb 14.8 (13.5-17.5) g/dL Hct 43.2 (40.0-50.0) % MCV 84 (80-95) fL MCH 28.7 (27.0-33.0) pg MCHC 34.3 (32.0-36.0) % RDW 14.3 H (11.8-14.1) % Plt Count 299 (130-400) 10^3/uL MPV 8.6 (8.0-11.0) fL Immature Gran % 0.8 % Neutrophils % 87.3 % Lymphocytes % 5.6 % Monocytes % 6.0 % Eosinophils % 0.0 % Basophils % 0.3 % Nucleated RBC % 0.0 (0.0-0.3) % Absolute Neutrophils 11.45 H (1.2-6.7) 10^3/uL Absolute Lymphocytes 0.73 L (1.2-3.4) 10^3/uL Absolute Monocytes 0.79 (0.1-0.8) 10^3/uL Absolute Eosinophils 0.00 (0.0-0.7) 10^3/uL Absolute Basophils 0.04 (0.0-0.2) 10^3/uL VBG Lactate 3.9 H* (<or=2.0) mmol/L Sodium 132 L (136-145) mmol/L Potassium 4.0 (3.5-5.1) mmol/L Chloride 98 (98-107) mmol/L Carbon Dioxide 18.9 L (21.0-32.0) mmol/L Anion Gap 15.1 H (3-11) mmol/L BUN 19 H (7-18) mg/dL Creatinine 1.9 H (0.70-1.30) mg/dL Est GFR (CKD-EPI 2020) 36.33 (mL/min/1.73m2) Glucose 244 H (74-106) mg/dL Hemoglobin A1c 7.5 H (<5.7) % Calcium 9.7 (8.5-10.1) mg/dL Total Bilirubin 0.4 (0.2-1.0) mg/dL AST 23 (15-37) U/L ALT 32 (16-63) U/L Alkaline Phosphatase 131 H (46-116) U/L Troponin I 31 (<or=76) ng/L Total Protein 8.8 H (6.4-8.2) g/dL Albumin 4.5 (3.4-5.0) g/dL Lipase 80 H (<78) U/L TSH Urine Color (Yellow) Urine Clarity (Clear) Urine pH (5-8) Ur Specific [place] (1.005-1.025) Urine Protein (Neg-Trace) mg/dL Urine Ketones (Negative) mg/dL Urine Blood (Negative) Urine Nitrite (Negative) Urine Bilirubin (Negative) Urine Urobilinogen (Up to 0.2) mg/dL Ur Leukocyte Esterase (Negative) Urine RBC (0-2) HPF Urine WBC (0-5) HPF Ur Epithelial Cells (Negative) HPF Urine Crystals (Negative) HPF Urine Bacteria (Negative) HPF Urine Casts (Negative) LPF Urine Mucus (Negative) Ur Culture Indicated? Urine Glucose (Negative) mg/dL Intake and Output - 24 Hour Total 04/10/25 16:12 thru 04/10/25 23:25 Intake Total 2164.583 Balance 2164.583 Weight 95.254 kg Intake: IV 2164.583 Falls Risk Assessment History of Falls Previous History 04/10/25 20:58 Contributing Factors Confusion,Unstable, 04/10/25 20:58 Impairments Ambulatory Aids Uses ambulatory device 04/10/25 20:58 Tubes/Lines W/no contributing factors 04/10/25 20:58 Gait Evaluation W/no contributing factors 04/10/25 20:58 Cognition Cognitive impairment 04/10/25 20:58 Fall Total Score 74 04/10/25 20:58 Level of Risk High Risk 04/10/25 20:58 Problems (Last Reviewed 03/08/25 @ 09:49 by An Shi RN) Lactic acid increased (Acute) CKD (chronic kidney disease) (Chronic) T12 vertebral fracture (Acute) Tachycardia (Acute) Hypertensive emergency (Acute) Migraine (Chronic) Venous (peripheral) insufficiency (Acute) Diabetes mellitus type 2 in obese (Chronic) v v v v v v v v v Sending and/or Receiving Nurses: Please use comment section below to note any information pertinent to the patient hand-off not included above. Information / Comments: ER visit yesterday with similar complaints. Return to ER tonight with c/o vomit/headache, constipation (refusing enema), #18 Right AC, diltiazem drip started and stopped (ineffective), several IVP diltiazem (ineffective), 2L NS bolus, dilaudid, compazine x 2, droperidol, magnesium IV, IV acetaminiphen. Labatelol given with good effect (decrease of HR and BP). Alert and oriented. Voids in urinal at bedside, ambulatory. Takes seroquel and is requesting it for tonight. Report received from: KIAN Hui
[2025-04-11] MEDS: QUEtiapine 100 MG TAB 300 MG PO ×2 (01:38→23:14)
[2025-04-11] MEDS: Magnesium Citrate 300 ML BTL PO (01:38)
[2025-04-11] MEDS: Labetalol 100 MG/20 ML VIAL 10 MG IVP (05:02)
[2025-04-11] MEDS: Levothyroxine 50 MCG TAB PO (05:19)
[2025-04-11 06:24] LABS: Abs Immature Grans 0.05 10^3/uL (0.0-0.06); HCT 39.0 % (40.0-50.0); HGB 13.1 g/dL (13.5-17.5); Immature Grans % 0.4 %; MCH 28.5 pg (27.0-33.0); MCHC 33.6 % (32.0-36.0); MCV 85 fL (80-95); MPV 8.7 fL (8.0-11.0); Platelet Count 254 10^3/uL (130-400); RBC 4.60 10^6/uL (4.36-5.78); RDW 14.6 % (11.8-14.1); RDW-SD 44.9 fL; WBC 11.34 10^3/uL (4.4-10.8)
[2025-04-11 06:44] LABS: ALT 27 U/L (16-63); AST 23 U/L (15-37); Albumin 3.8 g/dL (3.4-5.0); Alkaline Phosphatase 109 U/L (46-116); Anion Gap 13.6 mmol/L (3-11); BUN 21 mg/dL (7-18); Bilirubin, Total 0.4 mg/dL (0.2-1.0); CO2 21.4 mmol/L (21.0-32.0); Calcium 8.6 mg/dL (8.5-10.1); Chloride 100 mmol/L (98-107); Estimated GFR 32.22 (mL/min/1.73m2); Glucose 269 mg/dL (74-106); Potassium 3.8 mmol/L (3.5-5.1); Sodium 135 mmol/L (136-145); TSH (W/Ref FT4) 8.66 uIU/mL (0.36-3.74); Total Protein 7.4 g/dL (6.4-8.2)
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
[2025-04-11] MEDS: Clopidogrel 75 MG TAB PO (08:34)
[2025-04-11] MEDS: Pregabalin 100 MG CAP PO (08:34)
[2025-04-11] MEDS: Empaglifozin 25 MG TAB PO (08:34)
[2025-04-11] MEDS: Ranolazine 500 MG TABCR PO (08:34)
[2025-04-11] MEDS: Aspirin 81 MG CHEW CH (08:34)
[2025-04-11] MEDS: Lisinopril 20 MG TAB 40 MG PO (08:34)
[2025-04-11] MEDS: Finasteride 5 MG TAB PO (08:34)
[2025-04-11] MEDS: dilTIAZem CD 120 MG CAPCR PO (08:34)
[2025-04-11] MEDS: Acetaminophen 500 MG TAB 1000 MG PO ×2 (09:41→18:46)
[2025-04-11] MEDS: Allopurinol 300 MG TAB PO (09:41)
[2025-04-11] MEDS: Normal Saline Flush 10 ML SYR IVP ×2 (09:43→20:53)
[2025-04-11] MEDS: Ondansetron 4 MG/2 ML VIAL IVP (09:43)
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
[2025-04-11] MEDS: Magnesium Oxide 400 MG TAB PO (12:05)
[2025-04-11] MEDS: buPROPion-CR 100 MG TABCR PO (12:05)
[2025-04-11] MEDS: Multivitamin TAB 1 TAB PO (12:06)
[2025-04-11] MEDS: Metoprolol CR 50 MG TABCR 100 MG PO (12:06)
[2025-04-11] MEDS: Mirabegron 25 MG TABCR PO (12:06)
[2025-04-11] MEDS: methylPREDNISolone 4 MG TAB 12 MG PO ×2 (12:06→20:52)
[2025-04-11] MEDS: Citalopram 20 MG TAB PO (12:06)
--- NOTE | 2025-04-11 12:17 | PGE_ITS ---
Date of Service Date of service: 04/11/25 Time of Service: 12:17 Assessment and Plan Assessment and plan (1) Hypertensive emergency: Status: Acute Assessment and plan: -met critera with TAN and blood pressure of 214/110 -s/p total of 30mg IV labetalol in ED -BPs improved as of AM 04/11; restarted home dilt, lisinopril and home dose lopressor -holding amlodipine at this time as early AM BP was 110 systolic, will add back as tolerated -BP improvement with initiation of home meds concerning for medication non- compliance (2) Migraine: Status: Chronic Assessment and plan: -continues to complain of TAN, though question if actual migraine -some improvement with Tylenol, starting ibuprofen as well (3) Tachycardia: Status: Acute Assessment and plan: -HR still mildly elevated to low 100's -restarted home metoprolol AM 04/11 (4) T12 vertebral fracture: Status: Acute Assessment and plan: -Outpatient follow-up (5) Traumatic brain injury: Assessment and plan: -Outpatient follow-up (6) History of subdural hematoma: Assessment and plan: This is given in history but I do not see any objective diagnosis of this. He is on Plavix and aspirin which would be relatively contraindicated to continue to have a subdural hematoma. Considering his CT of the head now we will add Lovenox for DVT prophylaxis (7) Venous (peripheral) insufficiency: Status: Acute Assessment and plan: Outpatient workup (8) CKD (chronic kidney disease): Status: Chronic Assessment and plan: -baseline (9) Lactic acid increased: Status: Acute Assessment and plan: -up to 3.7 in ED -3.5 as of AM 04/11 -etiology unknown, though with reduced kidney clearance due to CKD Subjective Subjective Interval history since last seen: Patient states that he is continuing to have headaches and that his right great toe hurts like he is having a gout flare. Exam Narrative Exam Narrative: fatigued but otherwise well appearing gentleman laying in bed in mild distress secondary to TAN, AOx4, heart RRR, lungs CTAB, abdomen soft, non-tender, non- distended Objective Last Vital Signs Temp 97.7 F 04/11/25 11:52 Pulse 102 H 04/11/25 11:52 Resp 17 04/11/25 11:52 BP 128/79 04/11/25 11:52 Pulse Ox 97 04/11/25 11:52 Laboratory Results - last 24 hr 04/10/25 04/10/25 04/10/25 16:50 18:40 19:23 WBC 13.12 H RBC 5.15 Hgb 14.8 Hct 43.2 MCV 84 MCH 28.7 MCHC 34.3 RDW 14.3 H Plt Count 299 MPV 8.6 Immature Gran % 0.8 Neutrophils % 87.3 Lymphocytes % 5.6 Monocytes % 6.0 Eosinophils % 0.0 Basophils % 0.3 Nucleated RBC % 0.0 Absolute Neutrophils 11.45 H Absolute Lymphocytes 0.73 L Absolute Monocytes 0.79 Absolute Eosinophils 0.00 Absolute Basophils 0.04 VBG Lactate 3.9 H* Sodium 132 L Potassium 4.0 Chloride 98 Carbon Dioxide 18.9 L Anion Gap 15.1 H BUN 19 H Creatinine 1.9 H Est GFR (CKD-EPI 2020) 36.33 Glucose 244 H Hemoglobin A1c 7.5 H Calcium 9.7 Total Bilirubin 0.4 AST 23 ALT 32 Alkaline Phosphatase 131 H Troponin I 31 Cancelled Total Protein 8.8 H Albumin 4.5 Lipase 80 H TSH Free T4 Urine Color Yellow Urine Clarity Clear Urine pH 6.5 Ur Specific [place] 1.015 Urine Protein 100 H Urine Ketones Negative Urine Blood Moderate H Urine Nitrite Negative Urine Bilirubin Negative Urine Urobilinogen 0.2 Ur Leukocyte Esterase Negative Urine RBC 10-20 H Urine WBC 0-2 Ur Epithelial Cells Rare Urine Crystals Negative Urine Bacteria Rare Urine Casts Negative Urine Mucus Negative Ur Culture Indicated? No Urine Glucose 250 H 04/10/25 04/10/25 04/11/25 19:32 21:14 05:56 WBC 11.34 H RBC 4.60 Hgb 13.1 L Hct 39.0 L MCV 85 MCH 28.5 MCHC 33.6 RDW 14.6 H Plt Count 254 MPV 8.7 Immature Gran % 0.4 Neutrophils % 83.9 Lymphocytes % 5.9 Monocytes % 9.4 Eosinophils % 0.1 Basophils % 0.3 Nucleated RBC % 0.0 Absolute Neutrophils 9.51 H Absolute Lymphocytes 0.67 L Absolute Monocytes 1.07 H Absolute Eosinophils 0.01 Absolute Basophils 0.03 VBG Lactate Sodium 135 L Potassium 3.8 Chloride 100 Carbon Dioxide 21.4 Anion Gap 13.6 H BUN 21 H Creatinine 2.1 H Est GFR (CKD-EPI 2020) 32.22 Glucose 269 H Hemoglobin A1c Calcium 8.6 Total Bilirubin 0.4 AST 23 ALT 27 Alkaline Phosphatase 109 Troponin I 50 Total Protein 7.4 Albumin 3.8 Lipase TSH 8.66 H Free T4 0.75 L Urine Color Cancelled Urine Clarity Cancelled Urine pH Cancelled Ur Specific [place] Cancelled Urine Protein Cancelled Urine Ketones Cancelled Urine Blood Cancelled Urine Nitrite Cancelled Urine Bilirubin Cancelled Urine Urobilinogen Cancelled Ur Leukocyte Esterase Cancelled Urine RBC Urine WBC Ur Epithelial Cells Urine Crystals Urine Bacteria Urine Casts Urine Mucus Ur Culture Indicated? Urine Glucose Cancelled 04/11/25 11:10 WBC RBC Hgb Hct MCV MCH MCHC RDW Plt Count MPV Immature Gran % Neutrophils % Lymphocytes % Monocytes % Eosinophils % Basophils % Nucleated RBC % Absolute Neutrophils Absolute Lymphocytes Absolute Monocytes Absolute Eosinophils Absolute Basophils VBG Lactate 3.5 H* Sodium Potassium Chloride Carbon Dioxide Anion Gap BUN Creatinine Est GFR (CKD-EPI 2020) Glucose Hemoglobin A1c Calcium Total Bilirubin AST ALT Alkaline Phosphatase Troponin I Total Protein Albumin Lipase TSH Free T4 Urine Color Urine Clarity Urine pH Ur Specific [place] Urine Protein Urine Ketones Urine Blood Urine Nitrite Urine Bilirubin Urine Urobilinogen Ur Leukocyte Esterase Urine RBC Urine WBC Ur Epithelial Cells Urine Crystals Urine Bacteria Urine Casts Urine Mucus Ur Culture Indicated? Urine Glucose Time Spent with Patient Time Spent with Patient: >50 minutes Time was spent: preparing to see the patient(eg.review tests), obtaining and/or reviewing separately otained hiistory, ordering medications,tests, procedures, referring, communicating with other health critical care physician, indepentently interpreting results, counseling the patient and care coordination
[2025-04-11] MEDS: Insulin Aspart 300 UNITS/3 ML PEN SC ×3 (12:55→23:14)
[2025-04-11] MEDS: Ibuprofen 600 MG TAB PO ×2 (13:00→18:47)
--- NOTE | 2025-04-11 17:19 | PHA.REVIEW2 ---
Pharmacy Admission Review Admission Clinical Review Admission Pharmacy Review: Lactic acid increased (Acute) T12 vertebral fracture (Acute) Tachycardia (Acute) Hypertensive emergency (Acute) Venous (peripheral) insufficiency (Acute) amoxicillin Allergy (Severe, Verified 04/09/25 18:51) breathing difficuty and vomiting Penicillins Allergy (Intermediate, Verified 04/09/25 18:51) Skin Rash sulfamethoxazole (From Bactrim) Allergy (Intermediate, Verified 04/09/25 18:51) Skin Rash trimethoprim (From Bactrim) Allergy (Intermediate, Verified 04/09/25 18:51) Skin Rash bacitracin Adverse Reaction (Severe, Verified 04/09/25 18:51) Skin Rash oxycodone HCl (From Percocet) Adverse Reaction (Severe, Verified 04/09/25 18:51) Contraindicated oxycodone terephthalate (From Percodan) Adverse Reaction (Severe, Verified 04/09/25 18:51) Contraindicated atorvastatin Adverse Reaction (Intermediate, Verified 04/09/25 18:51) Other (See Comment) rosuvastatin (From Crestor) Adverse Reaction (Intermediate, Verified 04/09/25 18:51) Other (See Comment) Resuscitation Status Full Code Height 5 ft 10.5 in Weight 92.4 kg Pharmacy Admission Review Renal Dosing Renal Dosing: BUN 21 mg/dL (7-18) H 04/11/25 05:56 Creatinine 2.1 mg/dL (0.70-1.30) H 04/11/25 05:56 Medications needing adjustments: Reviewed List of meds needing interventions: Metformin on hold Anticoagulation Anticoagulation: Hgb 13.1 g/dL (13.5-17.5) L 04/11/25 05:56 Hct 39.0 % (40.0-50.0) L 04/11/25 05:56 Plt Count 254 10^3/uL (130-400) 04/11/25 05:56 Creatinine 2.1 mg/dL (0.70-1.30) H 04/11/25 05:56 DVT Prophylaxis: Reviewed Medications: Enoxaparin Opiate Usage Evaluate Pain Scale/Pains Meds: N/A Relevant Labs Relevant Labs: Sodium 135 mmol/L (136-145) L 04/11/25 05:56 Potassium 3.8 mmol/L (3.5-5.1) 04/11/25 05:56 Chloride 100 mmol/L (98-107) 04/11/25 05:56 Electrolytes, C-Reactive P, ESR: Reviewed Cardiac Review Cardiac Review: pz=643/79; p=102 on home BP meds Troponin I 50 ng/L (<or=76) 04/10/25 19:32 BP, HR, EF%: Reviewed QTc Review QTc: Reviewed List meds needing interventions: [id number] IV to PO Switch IV Medications: Reviewed Home Meds Home Med List reviewed: Reviewed Relevent Home Meds Not ordered & why?: metformin secondary to scr; mupirocin finished therapy (cancelled order per provider); holding vitamin B12 and B-2 because b12 monthly and b2 non-formulary. Takes Tresiba 100-200 units qhs at home (non-form) changed to glargine 80 units qhs (20% decrease to avoid hypoglycemia) Current Meds Current Medication Order Review: Reviewed (on methylprednisolone dose pack taper per Dr. Cabello for gout flare. Entered day 1 (24mg total) and day 2 (20mg total). may need to order more if pt not discontinued. ) Pharmacy Antibiotic Review Comments: no antibiotics
--- NOTE | 2025-04-11 17:30 | RT.EKG_ITS ---
APPROVED REPORT Exam: Resting ECG Reason for Exam: CAD history, TAN? Patient Location: I HR:103 bpm ECG Measurements Heart Rate 103 AXIS OH 131 P 41 QRSd 83 QRS 29 QT 392 T 73 QTc 513 Conclusion Sinus tachycardia...rate> 99 Probable left atrial enlargement...P >50mS, <-0.10mV V1 Abnormal R-wave progression, early transition...QRS area>0 in V2 Borderline T wave abnormalities...T/QRS ratio < 1/20 or flat T Prolonged QT interval...QTc >500mS Baseline wander in lead(s) V5,V6
[2025-04-11 19:59] LABS: Troponin I 36 ng/L (<or=76)
[2025-04-11] MEDS: Pantoprazole 40 MG TABCR PO (20:52)
[2025-04-11] MEDS: Insulin Glargine 300 UNITS/3 ML PEN 80 UNITS SC (20:53)
[2025-04-11] MEDS: Isosorbide Mononitrate 60 MG TABCR PO (20:53)
[2025-04-11] MEDS: Acetaminophen 250 mg/Aspirin 250 mg/Caffeine 65 mg TAB 2 EACH PO (21:00)
[2025-04-12 03:20] VITALS: BP 118/70; PULSE 99; RESP 16; TEMP 36.7; O2SAT 96
[2025-04-12] MEDS: Levothyroxine 50 MCG TAB PO (06:38)
[2025-04-12 08:23] VITALS: BP 117/79; PULSE 89; RESP 16; TEMP 35.9; O2SAT 96
--- NOTE | 2025-04-12 08:55 | PDOC.CMPRO ---
Date of service: 04/12/25 Time of Service: 08:55 Care Management Progress Note Discharge Potential Discharge Needs: PCP F/U Appt Anticipated Barriers to Discharge: None Identified Patient/Family Education Needs: Review discharge instructions, discuss Ask Me Three Transportation: Private vehicle Plan: Anticipate Andrew will be discharged home, possibly with new home health services, when medically cleared. He will follow up with his PCP and plan of care and transport with family. CM will follow and continue to assess for discharge needs. Social Determinants of Health Screening Social Determinants of health last assessed in clinic: 04/11/25 Will the Patient Participate in the Screening?: Yes Do you worry about having a steady place to live?: no Problems where you live: no known problems In the past 12 months, have you had to go without electric, gas, oil or water in your home?: no Has lack of transportation kept you from medical appointments or from doing things needed for daily living?: no Has anyone in your life made you feel unsafe or unsupported?: no How hard is it for you to pay for the very basics like food, housing, medical care, and heating? Would you say it is:: Not hard at all Do you want help finding or keeping work or a job?: I do not need or want help If for any reason you need help with day-to-day activities such as bathing, preparing meals, shopping, managing finances, etc., do you get the help you need?: I get all the help I need How often do you feel lonely or isolated from those around you?: Never Do you speak a language other than Greenlandic at home?: No Does the patient want assistance with any of the above?: No
--- NOTE | 2025-04-12 08:56 | PT.INTREAT ---
PT Notes Visit Reasons: HTN Emergency Physical Therapy Inpatient Treatment Note Date: 04/12/2025 Precautions: Fall. Standard. Activity as tolerated. Subjective: Reported very minimal headache today after ambulation activity. Looking forward to luisa home maybe later today. Objective: General Observation: Patient resting in bed. Telemetry monitoring in place. Abdomen protruberant. Mental Status: Alert and oriented as to person, place, time, and purpose. Able to pay attention, focus, and respond appropriately. Pain: 1-2/10 headache after walking activity Vital Signs: BP after 150 feet 125/70 mmHg, 97 bpm, 99% on RA Gait: Instructed patient with level surface ambulation of 150 feet + 150 feet + 10 feet requiring stand by assist using FWW with wheelchair follow. Gisselle decreased. Mild buckling in R knees but no LOB. Step height decreased. Step length decreased. No increase in SOB. THERA EX: Reviewed HEP exercises which patient has been doing at home to maintain strength and maximize balance awareness: Setaed marches x 10 LAQs x 10 Bilateral heel raises in standing x 10 Partial knee bends x 10 Balance: Static Sitting: Normal Dynamic Sitting: Normal Static Standing: Fair Dynamic Standing: Fair ASSESSMENT: Patient with significantly less headache and therefore with more focus to perform mobility ADLs much safely. Activity tolerance for ambulation improved with decreased assisatnce provided. SOB decreased today after activity compared to previous session. Plan of Care/Treatment Plan: Continue with HH PT to maximize strength, balance, and functional mobility gains. DISCHARGE RECOMMENDATIONS: Home with services. Patient will benefit from home health PT services in order to progress mobility level using least restrictive assistive ambulatory device, assess home safety, identify additional equipment needs, and establish a functional maintenance program that will increase ability of patient to remain at home. TREATMENT CODE/TIME: 16260 x 26 minutes for 1 unit (08:56-9:28).
[2025-04-12] MEDS: Mirabegron 25 MG TABCR PO (09:00)
[2025-04-12] MEDS: dilTIAZem CD 120 MG CAPCR PO (09:00)
[2025-04-12] MEDS: Metoprolol CR 50 MG TABCR 100 MG PO (09:00)
[2025-04-12] MEDS: Multivitamin TAB 1 TAB PO (09:00)
[2025-04-12] MEDS: Allopurinol 300 MG TAB PO (09:01)
[2025-04-12] MEDS: Finasteride 5 MG TAB PO (09:01)
[2025-04-12] MEDS: Ranolazine 500 MG TABCR PO (09:01)
[2025-04-12] MEDS: amLODIPine 10 MG TAB PO (09:01)
[2025-04-12] MEDS: Magnesium Oxide 400 MG TAB PO (09:01)
[2025-04-12] MEDS: Pregabalin 100 MG CAP PO (09:01)
[2025-04-12] MEDS: Citalopram 20 MG TAB PO (09:01)
[2025-04-12] MEDS: methylPREDNISolone 4 MG TAB PO ×2 (09:01→11:32)
[2025-04-12] MEDS: Clopidogrel 75 MG TAB PO (09:01)
[2025-04-12] MEDS: Aspirin 81 MG CHEW CH (09:01)
[2025-04-12] MEDS: Normal Saline Flush 10 ML SYR IVP (09:02)
[2025-04-12] MEDS: Insulin Aspart 300 UNITS/3 ML PEN SC ×2 (09:02→12:05)
[2025-04-12] MEDS: Enoxaparin 40 MG/0.4 ML SYR SC (09:02)
[2025-04-12] MEDS: Acetaminophen 500 MG TAB 1000 MG PO (11:32)
[2025-04-12] MEDS: Acetaminophen 250 mg/Aspirin 250 mg/Caffeine 65 mg TAB 2 EACH PO (13:35)
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
--- NOTE | 2025-04-12 17:14 | PDOC.CMDIS ---
Date of service: 04/12/25 Time of Service: 17:14 LACE Index Scoring Tool Questions: Length of Stay (in days): 2 Was the patient admitted via the E.D.?: Yes Comorbidities: Previous M.I., PVD, Diabetes w/o Complication, Chronic Pulmonary Disease, Dementia and Liver or Renal Disease E.D. Visits: 5 Answers: Total Score: 14 Risk of Readmission: High Risk Care Management Discharge Plan Reason for Hospitalization: hypertension Discharge Plan: Andrew will be discharged home with no new services. He will follow up with his PCP and plan of care and transport with family. Patient/Family Education Needs: Review discharge instructions, limitations, follow up plan and discuss Ask Me Three
== END 2025-04-12 15:24 | disposition home or self-care (01) | DRG 305 ==
LOC: ER 16:40 → MS 04-11 00:28
PROVIDERS: Admitting Provider Hospitalist; Emergency Provider General Practice; PCP Family Medicine; Responsible Provider Family Medicine; Visit Provider Hospitalist
DX: I16.1 Hypertensive emergency; E87.20 Acidosis, unspecified; I65.21 Occlusion and stenosis of right carotid artery; R00.0 Tachycardia, unspecified; E11.22 Type 2 diabetes mellitus with diabetic chronic kidney disease; I12.9 Hypertensive chronic kidney disease with stage 1 through stage 4 chronic kidney disease, or unspecified chronic kidney disease; N18.32 Chronic kidney disease, stage 3b; E11.42 Type 2 diabetes mellitus with diabetic polyneuropathy; E66.9 Obesity, unspecified; G43.909 Migraine, unspecified, not intractable, without status migrainosus; M54.16 Radiculopathy, lumbar region; K22.4 Dyskinesia of esophagus; I87.2 Venous insufficiency (chronic) (peripheral); G47.33 Obstructive sleep apnea (adult) (pediatric); K76.0 Fatty (change of) liver, not elsewhere classified; E55.9 Vitamin D deficiency, unspecified; K21.9 Gastro-esophageal reflux disease without esophagitis; D50.9 Iron deficiency anemia, unspecified; F03.90 Unspecified dementia, unspecified severity, without behavioral disturbance, psychotic disturbance, mood disturbance, and anxiety; I25.10 Atherosclerotic heart disease of native coronary artery without angina pectoris; E78.5 Hyperlipidemia, unspecified; B35.1 Tinea unguium; E03.9 Hypothyroidism, unspecified; R29.6 Repeated falls; Z68.28 Body mass index [BMI] 28.0-28.9, adult; I25.2 Old myocardial infarction; Z79.4 Long term (current) use of insulin; Z91.81 History of falling; Z79.82 Long term (current) use of aspirin; Z79.02 Long term (current) use of antithrombotics/antiplatelets; Z87.820 Personal history of traumatic brain injury; Z79.84 Long term (current) use of oral hypoglycemic drugs
CPT/HCPCS: 00123; 36415; 70496; 70498; 80053; 83690; 93005; 96365; 96366; 96367; 96375; 96376; 97162; 97530; 99285; J1650; 71045; 74177; 81003; 81015; 83036; 83605; 84439; 84443; 84484; 85025; 93010; 99222; 99233; 99238; J0131; J0780; J1171; J1790; J1815; J1920; J2405; J3475; J3490; J7509

== ENCOUNTER → 2025-04-18 09:57 | Outpatient (BNVA) | payer MEDICARE, OTHER, SELFPAY | PROVIDERS: PCP Family Medicine; Referring Provider Family Medicine; Visit Provider Podiatrist | DX: M25.571 Pain in right ankle and joints of right foot (principal); M10.071 Idiopathic gout, right ankle and foot | CPT/HCPCS: 20600; J0702; J1100 ==

== ENCOUNTER 2025-04-18 10:46 | Outpatient (CLI) | payer MEDICARE, OTHER, SELFPAY ==
[2025-04-18 11:15] LABS: Abs Immature Grans 0.13 10^3/uL (0.0-0.06); HCT 37.1 % (40.0-50.0); HGB 12.1 g/dL (13.5-17.5); Immature Grans % 1.5 %; MCH 28.8 pg (27.0-33.0); MCHC 32.6 % (32.0-36.0); MCV 88 fL (80-95); MPV 8.7 fL (8.0-11.0); Platelet Count 260 10^3/uL (130-400); RBC 4.20 10^6/uL (4.36-5.78); RDW 14.5 % (11.8-14.1); RDW-SD 46.0 fL; WBC 8.40 10^3/uL (4.4-10.8)
[2025-04-18 12:09] LABS: Uric Acid 4.7 mg/dL (3.5-7.2)
== END 2025-04-18 10:47 | disposition home or self-care (01) ==
LOC: LBO 10:49
PROVIDERS: PCP Family Medicine; Visit Provider Podiatrist
DX: E79.0 Hyperuricemia without signs of inflammatory arthritis and tophaceous disease (principal)
CPT/HCPCS: 20600; 36415; J0702; J1100; 84550; 85025

== ENCOUNTER 2025-05-04 15:10 | Inpatient (IN) | payer MEDICARE, OTHER, SELFPAY ==
[2025-05-04] VITALS (51 sets, daily range): BP systolic 120–179; BP diastolic 55–86; PULSE 91–113; RESP 9–25; TEMP 36.5–36.6; O2SAT 93–98
--- NOTE | 2025-05-04 15:00 | RT.EKG_ITS ---
APPROVED REPORT Exam: Resting ECG Reason for Exam: chest pain Patient Location: E HR:99 bpm ECG Measurements Heart Rate [address] 125 P 57 QRSd 87 QRS 48 QT 340 T 180 QTc 436 Conclusion Sinus rhythm...normal P axis, V-rate 60- 99 No STEMI
--- NOTE | 2025-05-04 15:15 | DI.CT_ITS ---
Exam(s) CT THORAX ABD/PEL CTA EXAM: CT THORAX ABD/PEL CTA CLINICAL HISTORY: chest pain and headache. TECHNIQUE: Imaging Protocol: Axial CT angiography was performed with multi- slice acquisition and multi-planar and/or 3D reconstructions. CONTRAST MATERIAL: Intravenous: Omnipaque 350 Contrast volume:100 ml Oral: / no COMPARISON: CT CT ABDOMEN PELVIS W from 04/10/2025 FINDINGS: CHEST: Pulmonary Arteries: No evidence of filling defect to suggest pulmonary emboli. Tracheobronchial tree: Patent where visualized. Mediastinum and Светлана: No dominant adenopathy or fluid collection. Pulmonary parenchyma: No consolidation or dominant measurable mass. Atelectasis at the lung bases, greater on the right. Pleura: No effusion or pneumothorax. Heart: The heart is mildly dilated. Severe coronary artery calcifications are seen. Aorta: Thoracic aorta non-dilated. Bones: Stable mild compression fracture of T12. Degenerative changes. Sternal wires. Tubes, Catheters, and Lines: ABDOMEN AND PELVIS: Abdomen: Celiac axis/mesenteric arteries: Mild calcification no evidence of occlusion or significant stenosis. Renal Arteries: No evidence of occlusion. Mild calcification at the origin of the right renal artery. Calcification and plaque at the proximal left renal artery causing moderate stenosis. There is a single renal artery perfusing the right kidney. There are 2 arteries perfusing the left kidney. Aorta: No evidence of occlusion or significant stenosis. No aneurysm or dissection. Pelvis: Iliac Arteries: No evidence of occlusion or significant stenosis. Common Femoral Arteries: No evidence of occlusion or significant stenosis. ABDOMEN: Liver: Enlarged. Hepatic steatosis. No measurable mass. Portal, Superior Mesenteric, and Splenic Veins: Unremarkable. Gallbladder and Biliary Tract: No radiodense calculus or dilation. Pancreas: Normal density, no abnormal calcifications or inflammatory process. Spleen: Normal. Adrenals: No masses seen. Kidneys: Normal size, contour and axis. No radiodense stones or obstructive uropathy. Simple cysts again noted. No suspicious masses seen. Bowel: No obstruction or bowel wall thickening. Normal quantity of stool. Peritoneal Cavity: No ascites, collection or mesenteric inflammatory response. Lymph Nodes: Within normal limits. Bones: Unremarkable. Soft Tissues: Small portion of the anterior abdominal wall is: From view. PELVIS: Bladder: Symmetric distention, no gross wall thickening. Reproductive Organs: Unremarkable as visualized. Lymph Nodes: Within normal limits. Bones: Stable bone island in the left ilium. Mild degenerative changes of the hips. IMPRESSION: No acute abnormality in the chest abdomen or pelvis. RADIATION DOSE DELIVERED: Total DLP DATA REPOSITORY: All CT scans at this facility are submitted to the National Radiology Data Registry (NRDR) Dose Index Registry (DIR) with the [employer] (ACR). RADIATION OPTIMIZATION: All CT scans at this facility use at least one of these dose optimization techniques: automated exposure control; mA and/or kV adjustment per patient size (includes targeted exams where dose is matched to clinical indication); or iterative reconstruction.
--- NOTE | 2025-05-04 15:51 | DI.RAD_ITS ---
Exam(s) XR PORTABLE CHEST AP EXAM: XR PORTABLE CHEST AP CLINICAL HISTORY: chest pain TECHNIQUE: 2D digital imaging was performed. COMPARISON: CR XR PORTABLE CHEST AP from 04/10/2025 FINDINGS: The exam is limited by patient body habitus and suboptimal pulmonary inflation. LUNGS: Grossly clear where visualized. No pleural abnormality seen. HEART: Partially obscured. Appears enlarged. Status post CABG. AORTA: Normal diameter. BONES: Sternal wires. The spine is obscured. Soft tissues: Unremarkable. IMPRESSION: Extremely limited exam. No gross evidence of acute abnormality. DATA REPOSITORY: RADIATION DOSE DELIVERED:
[2025-05-04] MEDS: ACETAMINOPHEN 1,000 MG/100 ML BAG 400 MG IVPB (15:53)
[2025-05-04] MEDS: MORPHine 10 MG/ML VIAL 6 MG IVP ×2 (15:56→23:23)
[2025-05-04] MEDS: Droperidol 5 MG/2 ML VIAL 2.5 MG IVP ×2 (15:57→15:58)
--- NOTE | 2025-05-04 16:00 | W.ED.GENAD ---
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
[2025-05-04 16:07] LABS: Abs Immature Grans 0.04 10^3/uL (0.0-0.06); HCT 36.4 % (40.0-50.0); HGB 12.3 g/dL (13.5-17.5); Immature Grans % 0.5 %; MCH 29.0 pg (27.0-33.0); MCHC 33.8 % (32.0-36.0); MCV 86 fL (80-95); MPV 8.7 fL (8.0-11.0); Platelet Count 191 10^3/uL (130-400); RBC 4.24 10^6/uL (4.36-5.78); RDW 14.6 % (11.8-14.1); RDW-SD 45.7 fL; WBC 7.67 10^3/uL (4.4-10.8)
[2025-05-04 16:33] LABS: INR 0.9 (0.9-1.1); PTT Activated 25.3 sec (20.6-30.2); Prothrombin Time 9.4 sec (9.1-11.1)
[2025-05-04 17:11] LABS: Magnesium 2.1 mg/dL (1.6-2.6)
[2025-05-04 17:12] LABS: Troponin I 8 ng/L (<54)
[2025-05-04 17:13] LABS: ALT 26 U/L (10-49); AST 16 U/L (<34); Albumin 4.2 g/dL (3.4-5.0); Alkaline Phosphatase 116 U/L (46-116); Anion Gap 13.3 mmol/L (3-11); BUN 21 mg/dL (9-23); Bilirubin, Total 0.20 mg/dL (0.2-1.2); CO2 17.7 mmol/L (20.0-31.0); Calcium 8.8 mg/dL (8.3-10.6); Chloride 106 mmol/L (98-107); Glucose 133 mg/dL (74-106); Potassium 4.2 mmol/L (3.5-5.1); Sodium 137 mmol/L (136-145); Total Protein 6.9 g/dL (5.7-8.2)
[2025-05-04 17:50] LABS: Troponin I 9 ng/L (<54)
[2025-05-04] MEDS: Omnipaque 350 MG/ML 100 ML BTL IJ ×2 (18:02→18:03)
[2025-05-04] MEDS: Normal Saline - Diluent 50 ML VIAL IJ ×2 (18:03→18:11)
[2025-05-04] MEDS: Normal Saline Flush 10 ML SYR IVP (18:04)
--- NOTE | 2025-05-04 18:11 | DI.CT_ITS ---
Exam(s) CT BRAIN NECK CTA EXAM: CT BRAIN NECK CTA CLINICAL HISTORY: headache and chest pain. TECHNIQUE: Imaging Protocol: Axial CT angiography was performed with multi- slice acquisition and multi-planar and MIP reconstructions. CONTRAST MATERIAL: Intravenous: Omnipaque 350 Contrast volume:70 ml COMPARISON: CT CT BRAIN NECK CTA from 04/10/[address] ABDOMEN PELVIS W from 04/10/2025 FINDINGS: CT Head W/O and W contrast: Ventricles and Extra axial spaces: Normal in size and morphology for the patient's age. Hemorrhage: None. Cerebral parenchyma: No evidence of acute infarct or mass. CSF space again noted anterior to the left frontal lobe. Midline shift: None. Brainstem/Cerebellum: No acute findings.. Calvarium: No acute abnormality. Stable mild expansion of the sella and prominent pituitary. Visualized Paranasal sinuses/Mastoids: Clear. Soft Tissues: Unremarkable. Enhancement: Normal. Venous sinuses are patent. CTA Brain W: Internal Carotid Arteries: Right: No aneurysm, occlusion or significant stenosis. Left: No aneurysm, occlusion or significant stenosis. Middle Cerebral Arteries: Right: No aneurysm, occlusion or significant stenosis. Left: No aneurysm, occlusion or significant stenosis. Anterior Cerebral Arteries: Right: No aneurysm, occlusion or significant stenosis. Left: No aneurysm, occlusion or significant stenosis. Posterior cerebral Arteries: Right: No aneurysm, occlusion or significant stenosis. Left: No aneurysm, occlusion or significant stenosis. Vertebral Arteries: Right: No aneurysm, occlusion or significant stenosis. Left: No aneurysm, occlusion or significant stenosis. Basilar Artery: No aneurysm, occlusion or significant stenosis. CTA Neck W: Visualized aorta: Unremarkable. Visualized pulmonary arteries: Unremarkable. Subclavian arteries: Unremarkable. Common Carotid: Right: No dissection, occlusion or significant stenosis. Left: No dissection, occlusion or significant stenosis. External Carotid: Right: No dissection, occlusion or significant stenosis. Left: No dissection, occlusion or significant stenosis. Internal Carotid: Right: There is again noted to be moderate calcific plaque at the common carotid bulb causing moderate stenosis. Tortuous distally. Mild calcific plaque in the midportion. Left: Mild calcification at the bulb and mid internal carotid artery.. No dissection, occlusion or significant stenosis. Vertebral Artery: Right: Diminutive. No dissection, occlusion or significant stenosis. Left: Dominant. No dissection, occlusion or significant stenosis. Lung Apices: No acute findings. Bones: No acute abnormality. Soft Tissues: Normal. IMPRESSION: 1. CTA brain: Normal CTA examination of the [place] of [place]. 2. Head CT: No acute abnormality. 3. CTA neck: Stable appearance mild to moderate stenosis at the right common carotid bulb and proximal internal carotid artery. No evidence of occlusion or dissection. RADIATION DOSE DELIVERED: Total DLP DATA REPOSITORY: All CT scans at this facility are submitted to the National Radiology Data Registry (NRDR) Dose Index Registry (DIR) with the [employer] (ACR). RADIATION OPTIMIZATION: All CT scans at this facility use at least one of these dose optimization techniques: automated exposure control; mA and/or kV adjustment per patient size (includes targeted exams where dose is matched to clinical indication); or iterative reconstruction.
--- NOTE | 2025-05-04 18:15 | RT.EKG_ITS ---
APPROVED REPORT Exam: Resting ECG Reason for Exam: chest pain Patient Location: E HR:95 bpm ECG Measurements Heart Rate 95 AXIS IA 132 P 55 QRSd 86 QRS 46 QT 348 T 178 QTc 438 Conclusion Sinus rhythm...normal P axis, V-rate 60- 99 Repol abnrm suggests ischemia, diffuse leads...ST-T neg, ant/lat/inf No STEMI, new ST depressions in septal and lateral leads
[2025-05-04] MEDS: nitroGLYcerin 0.4 MG TAB SL ×3 (18:31→23:22)
[2025-05-04] MEDS: Aspirin 81 MG CHEW 243 MG CH (18:32)
[2025-05-04] MEDS: MORPHine 10 MG/ML VIAL 8 MG IVP (18:33)
[2025-05-04] MEDS: nitroGLYcerin 0.4 MG TAB (18:36)
[2025-05-04] MEDS: Heparin in 0.45% NaCl 25,000 UNIT/250 ML BAG 10 UNIT IVINF (19:12)
[2025-05-04 20:06] LABS: Troponin I 8 ng/L (<54)
[2025-05-04 20:48] LABS: Troponin I 12 ng/L (<54)
[2025-05-04 22:12] LABS: Troponin I 17 ng/L (<54)
[2025-05-04] MEDS: QUEtiapine 300 MG TAB PO (23:26)
[2025-05-05] VITALS (11 sets, daily range): BP systolic 102–171; BP diastolic 68–90; PULSE 99–122; RESP 7–22; TEMP 36.2–37.2; O2SAT 94–100
[2025-05-05] MEDS: Atorvastatin 40 MG TAB 80 MG PO (00:16)
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
[2025-05-05 01:54] LABS: PTT Activated 41.1 sec (20.6-30.2)
--- NOTE | 2025-05-05 01:59 | W.PCEDHO ---
Registration Status: REG ER Primary Language: Preferred Language: Uzbek ED Information & Data Chief Complaint Chest Pain 05/04/25 16:02 Triage Note PT reports episode of chest 05/04/25 15:19 pain improved with nitro administration. 2 doses of nitro utilized to control pain. PT states he is currently out of breath and is experiencing a migraine Medical / Surgical History (Last Reviewed 04/18/25 @ 10:19 by Sayra Cabello DPM) Chest pain Traumatic brain injury Chronic subdural hematoma Partial tear of left rotator cuff Atypical chest pain Sensory hearing loss, bilateral (04/09/14) Hypertrophy of nasal turbinates (08/05/15) Deviated nasal septum (08/05/15) Trochanteric bursitis, right hip Tendinitis involving hip abductors Acute serous otitis media of left ear Lumbar contusion Blunt head trauma BABS (acute kidney injury) Lipoma of lower extremity Alcohol abuse Tinea pedis History of subdural hematoma Hip joint pain Callus of foot Pain, joint, shoulder region, left Ataxia Left cervical radiculopathy Cecal volvulus Viral URI with cough UTI (urinary tract infection) Rhinorrhea Knee pain, right Rathke's pouch cyst Hx of traumatic brain injury Recurrent UTI Constipation, chronic Pain in joint of right foot Left rib fracture Contusion of right hip Head trauma Right sided weakness Urethral stricture (08/20/15) Postnasal drip (05/13/15) H/O alcohol abuse MRSA infection Depression Colon polyps Urethral stricture Chronic low back pain Diastasis recti Headaches due to 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 Hx of deep venous thrombosis (Last Reviewed 04/18/25 @ 10:19 by Sayra Cabello DPM) History of cardiac cath History of colonoscopy with polypectomy (~09/24/22) facial lesion removal electroconvulsive therapy Repair of umbilical hernia Repair of inguinal hernia (08/05/17) Colonoscopy - MAC Extraction of cataract Coronary Artery Bypass Gaft (CABG) Appendectomy (06/01/16) Most Recent Vital Signs Temperature 36.2 C L 05/05/25 00:15 Temperature Source Tympanic 05/04/25 19:01 Pulse 109 H 05/05/25 01:31 Pulse 110 H 05/05/25 01:31 Respiratory Rate 16 05/05/25 01:31 Respiratory Effort Normal, Non-Labored, Short of Breath 05/04/25 21:07 Respiratory Depth Normal 05/04/25 21:07 Respiratory Pattern Normal 05/04/25 21:07 Blood Pressure 127/76 05/05/25 01:31 Blood Pressure Mean 93 05/05/25 01:31 Blood Pressure Position Sitting 05/04/25 15:19 Pulse Oximetry 96 05/05/25 01:31 Oxygen Delivery Method Room Air 05/04/25 21:07 Oxygen Flow Rate 0 05/04/25 21:07 Pain Level 4 05/05/25 00:23 Allergies amoxicillin Allergy (Severe, Verified 05/04/25 15:22) breathing difficuty and vomiting Penicillins Allergy (Intermediate, Verified 05/04/25 15:22) Skin Rash sulfamethoxazole (From Bactrim) Allergy (Intermediate, Verified 05/04/25 15:22) Skin Rash trimethoprim (From Bactrim) Allergy (Intermediate, Verified 05/04/25 15:22) Skin Rash bacitracin Adverse Reaction (Severe, Verified 05/04/25 15:22) Skin Rash oxycodone HCl (From Percocet) Adverse Reaction (Severe, Verified 05/04/25 15:22) Contraindicated stares into space oxycodone terephthalate (From Percodan) Adverse Reaction (Severe, Verified 05/04/25 15:22) Contraindicated stares into space atorvastatin Adverse Reaction (Intermediate, Verified 05/04/25 15:22) Other (See Comment) Weakness/falls rosuvastatin (From Crestor) Adverse Reaction (Intermediate, Verified 05/04/25 15:22) Other (See Comment) Weakness/falls Active Medications Generic Name Dose Route Start Last Admin Trade Name Freq PRN Reason Stop Dose Admin Heparin Sodium/Sodium Chloride 25,000 unit in 250 mls @ 0 mls/hr 05/04/25 18:45 05/04/25 19:12 IVINF 10 mls/hr INFUSION ALESSIO 10 mls/hr Protocol Administration Titrate Iohexol 100 ml 05/04/25 18:00 05/04/25 18:03 Omnipaque 350 Mg/Ml 100 Ml Btl IJ 06/03/25 23:59 70 ml DIRECTED ALESSIO Administration Morphine Sulfate 6 mg 05/04/25 22:44 05/04/25 23:23 Morphine 10 Mg/Ml Vial IVP 6 mg PRN PRN Administration Nitroglycerin 0.4 mg 05/04/25 22:44 05/04/25 23:22 Nitroglycerin 0.4 Mg Tab SL 0.4 mg Q5 MIN PRN X3 PRN Administration Sodium Chloride 0 ml 05/04/25 17:54 05/04/25 18:04 Normal Saline Flush 10 Ml Syr IVP 10 ml PRN PRN Administration Sodium Chloride 50 ml 05/04/25 18:00 05/04/25 18:03 Normal Saline - Diluent 50 Ml Vial IJ 50 ml DIRECTED ALESSIO Administration Sodium Chloride 50 ml 05/04/25 18:15 05/04/25 18:11 Normal Saline - Diluent 50 Ml Vial IJ 50 ml DIRECTED ALESSIO Administration IV IV Catheter Type [Left Forearm Saline Lock ] IV Catheter Type [Right Saline Lock Antecubital] IV Catheter Gauge [Left 20 Forearm] IV Catheter Gauge [Right 18 Antecubital] Diagnostics 05/05/25 05/05/25 05/04/25 Range/Units 01:35 01:14 23:11 WBC (4.4-10.8) 10^3/uL RBC (4.36-5.78) 10^6/uL Hgb (13.5-17.5) g/dL Hct (40.0-50.0) % MCV (80-95) fL MCH (27.0-33.0) pg MCHC (32.0-36.0) % RDW (11.8-14.1) % Plt Count (130-400) 10^3/uL MPV (8.0-11.0) fL Immature Gran % % Neutrophils % % Lymphocytes % % Monocytes % % Eosinophils % % Basophils % % Nucleated RBC % (0.0-0.3) % Absolute Neutrophils (1.2-6.7) 10^3/uL Absolute Lymphocytes (1.2-3.4) 10^3/uL Absolute Monocytes (0.1-0.8) 10^3/uL Absolute Eosinophils (0.0-0.7) 10^3/uL Absolute Basophils (0.0-0.2) 10^3/uL PT (9.1-11.1) sec INR (0.9-1.1) APTT 41.1 H Cancelled (20.6-30.2) sec VBG Lactate (<or=2.0) mmol/L Sodium Potassium Chloride Carbon Dioxide Anion Gap BUN Creatinine Est GFR (CKD-EPI 2021) Glucose Calcium Magnesium Total Bilirubin AST ALT Alkaline Phosphatase Troponin I Cancelled NT-Pro-B Natriuret Pep Total Protein Albumin 05/04/25 05/04/25 05/04/25 Range/Units 21:43 20:20 18:55 WBC (4.4-10.8) 10^3/uL RBC (4.36-5.78) 10^6/uL Hgb (13.5-17.5) g/dL Hct (40.0-50.0) % MCV (80-95) fL MCH (27.0-33.0) pg MCHC (32.0-36.0) % RDW (11.8-14.1) % Plt Count (130-400) 10^3/uL MPV (8.0-11.0) fL Immature Gran % % Neutrophils % % Lymphocytes % % Monocytes % % Eosinophils % % Basophils % % Nucleated RBC % (0.0-0.3) % Absolute Neutrophils (1.2-6.7) 10^3/uL Absolute Lymphocytes (1.2-3.4) 10^3/uL Absolute Monocytes (0.1-0.8) 10^3/uL Absolute Eosinophils (0.0-0.7) 10^3/uL Absolute Basophils (0.0-0.2) 10^3/uL PT (9.1-11.1) sec INR (0.9-1.1) APTT (20.6-30.2) sec VBG Lactate (<or=2.0) mmol/L Sodium Potassium Chloride Carbon Dioxide Anion Gap BUN Creatinine Est GFR (CKD-EPI 2020) Glucose Calcium Magnesium Total Bilirubin AST ALT Alkaline Phosphatase Troponin I 17 12 8 NT-Pro-B Natriuret Pep Total Protein Albumin 05/04/25 05/04/25 05/04/25 Range/Units 18:40 17:11 16:35 WBC (4.4-10.8) 10^3/uL RBC (4.36-5.78) 10^6/uL Hgb (13.5-17.5) g/dL Hct (40.0-50.0) % MCV (80-95) fL MCH (27.0-33.0) pg MCHC (32.0-36.0) % RDW (11.8-14.1) % Plt Count (130-400) 10^3/uL MPV (8.0-11.0) fL Immature Gran % % Neutrophils % % Lymphocytes % % Monocytes % % Eosinophils % % Basophils % % Nucleated RBC % (0.0-0.3) % Absolute Neutrophils (1.2-6.7) 10^3/uL Absolute Lymphocytes (1.2-3.4) 10^3/uL Absolute Monocytes (0.1-0.8) 10^3/uL Absolute Eosinophils (0.0-0.7) 10^3/uL Absolute Basophils (0.0-0.2) 10^3/uL PT (9.1-11.1) sec INR (0.9-1.1) APTT Cancelled (20.6-30.2) sec VBG Lactate (<or=2.0) mmol/L Sodium 137 Potassium 4.2 Chloride 106 Carbon Dioxide 17.7 L Anion Gap 13.3 H BUN 21 Creatinine 1.9 H Est GFR (CKD-EPI 2020) 35.10 Glucose 133 H Calcium 8.8 Magnesium 2.1 Total Bilirubin 0.20 AST 16 ALT 26 Alkaline Phosphatase 116 Troponin I 9 8 NT-Pro-B Natriuret Pep 249 Total Protein 6.9 Albumin 4.2 11/14/25 Range/Units 16:00 WBC 7.67 (4.4-10.8) 10^3/uL RBC 4.24 L (4.36-5.78) 10^6/uL Hgb 12.3 L (13.5-17.5) g/dL Hct 36.4 L (40.0-50.0) % MCV 86 (80-95) fL MCH 29.0 (27.0-33.0) pg MCHC 33.8 (32.0-36.0) % RDW 14.6 H (11.8-14.1) % Plt Count 191 (130-400) 10^3/uL MPV 8.7 (8.0-11.0) fL Immature Gran % 0.5 % Neutrophils % 72.7 % Lymphocytes % 14.0 % Monocytes % 9.4 % Eosinophils % 2.5 % Basophils % 0.9 % Nucleated RBC % 0.0 (0.0-0.3) % Absolute Neutrophils 5.58 (1.2-6.7) 10^3/uL Absolute Lymphocytes 1.07 L (1.2-3.4) 10^3/uL Absolute Monocytes 0.72 (0.1-0.8) 10^3/uL Absolute Eosinophils 0.19 (0.0-0.7) 10^3/uL Absolute Basophils 0.07 (0.0-0.2) 10^3/uL PT 9.4 (9.1-11.1) sec INR 0.9 (0.9-1.1) APTT 25.3 (20.6-30.2) sec VBG Lactate 2.6 H* (<or=2.0) mmol/L Sodium Cancelled Potassium Cancelled Chloride Cancelled Carbon Dioxide Cancelled Anion Gap Cancelled BUN Cancelled Creatinine Cancelled Est GFR (CKD-EPI 2020) Cancelled Glucose Cancelled Calcium Cancelled Magnesium Cancelled Total Bilirubin Cancelled AST Cancelled ALT Cancelled Alkaline Phosphatase Cancelled Troponin I Cancelled NT-Pro-B Natriuret Pep Cancelled Total Protein Cancelled Albumin Cancelled Intake and Output - 24 Hour Total 05/04/25 15:10 thru 05/04/25 23:14 Intake Total 100 Output Total 300 Balance -200 Weight 92.986 kg Intake: IV 100 Output: Urine 300 Other: # Voids 1 Falls Risk Assessment History of Falls No History 05/04/25 15:21 Contributing Factors No Factors 05/04/25 15:21 Ambulatory Aids Uses ambulatory device 05/04/25 15:21 Tubes/Lines None 05/04/25 15:21 Gait Evaluation No gait disturbance 05/04/25 15:21 Cognition No cognitive impairment 05/04/25 15:21 Fall Total Score 15 05/04/25 15:21 Level of Risk Standard/Low Risk 05/04/25 15:21 Problems (Last Reviewed 04/18/25 @ 10:19 by Sayra Cabello DPM) Non-ST elevation [place] (NSTEMI) (Acute) 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 Additional Patient Information/Comments: Report Received From: Nemo Bello RN
[2025-05-05] MEDS: Levothyroxine 50 MCG TAB PO (06:15)
[2025-05-05 06:56] LABS: HCT 36.0 % (40.0-50.0); HGB 12.2 g/dL (13.5-17.5); MCH 29.4 pg (27.0-33.0); MCHC 33.9 % (32.0-36.0); MCV 87 fL (80-95); MPV 9.1 fL (8.0-11.0); Platelet Count 172 10^3/uL (130-400); RBC 4.15 10^6/uL (4.36-5.78); RDW 14.6 % (11.8-14.1); RDW-SD 46.5 fL; WBC 6.76 10^3/uL (4.4-10.8)
[2025-05-05 07:23] LABS: Magnesium 2.4 mg/dL (1.6-2.6)
[2025-05-05 07:27] LABS: Anion Gap 12.3 mmol/L (3-11); BUN 18 mg/dL (9-23); CO2 19.7 mmol/L (20.0-31.0); Calcium 8.6 mg/dL (8.3-10.6); Chloride 107 mmol/L (98-107); Glucose 98 mg/dL (74-106); Potassium 3.9 mmol/L (3.5-5.1); Sodium 139 mmol/L (136-145)
[2025-05-05 08:17] LABS: PTT Activated 51.9 sec (20.6-30.2)
[2025-05-05] MEDS: Citalopram 20 MG TAB PO (08:22)
[2025-05-05] MEDS: Aspirin 81 MG CHEW PO (08:22)
[2025-05-05] MEDS: Finasteride 5 MG TAB PO (08:22)
[2025-05-05] MEDS: Clopidogrel 75 MG TAB PO (08:30)
[2025-05-05] MEDS: Normal Saline Flush 10 ML SYR IVP (09:08)
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
[2025-05-05] MEDS: Heparin in 0.45% NaCl 25,000 UNIT/250 ML BAG 14 UNIT IVINF (10:19)
[2025-05-05] MEDS: MORPHine 2 MG/ML SYR (11:53)
[2025-05-05] MEDS: Insulin Aspart 300 UNITS/3 ML PEN SC (11:55)
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
== END 2025-05-05 16:26 | disposition short-term general hospital (02) | DRG 282 ==
LOC: ER 05-05 01:29 → MS 05-05 02:38
PROVIDERS: Admitting Provider Family Medicine; Emergency Provider General Practice; PCP Family Medicine; Responsible Provider Family Medicine; Visit Provider Family Medicine
DX: I21.4 Non-ST elevation (NSTEMI) myocardial infarction (principal); E11.22 Type 2 diabetes mellitus with diabetic chronic kidney disease; E11.42 Type 2 diabetes mellitus with diabetic polyneuropathy; K21.9 Gastro-esophageal reflux disease without esophagitis; E03.9 Hypothyroidism, unspecified; N18.32 Chronic kidney disease, stage 3b; I25.10 Atherosclerotic heart disease of native coronary artery without angina pectoris; Z95.1 Presence of aortocoronary bypass graft; M10.9 Gout, unspecified; I12.9 Hypertensive chronic kidney disease with stage 1 through stage 4 chronic kidney disease, or unspecified chronic kidney disease; E78.5 Hyperlipidemia, unspecified; Z79.4 Long term (current) use of insulin; Z79.899 Other long term (current) drug therapy; G43.909 Migraine, unspecified, not intractable, without status migrainosus; K59.00 Constipation, unspecified; K22.4 Dyskinesia of esophagus; G47.33 Obstructive sleep apnea (adult) (pediatric); K76.0 Fatty (change of) liver, not elsewhere classified; E55.9 Vitamin D deficiency, unspecified; E53.8 Deficiency of other specified B group vitamins; D50.9 Iron deficiency anemia, unspecified; M54.16 Radiculopathy, lumbar region; B35.1 Tinea unguium; G89.29 Other chronic pain; F03.90 Unspecified dementia, unspecified severity, without behavioral disturbance, psychotic disturbance, mood disturbance, and anxiety
CPT/HCPCS: 00123; 36415; 70496; 70498; 71275; 80048; 80053; 85027; 93005; 96365; 96366; 96367; 96375; 96376; 99285; 71045; 74174; 83605; 83735; 83880; 84484; 85025; 85610; 85730; 93010; 99235; J0131; J1644; J1790; J1815; J2270; J3490

== ENCOUNTER 2025-05-22 12:48 | Emergency (ER) | payer MEDICARE, OTHER, SELFPAY ==
[2025-05-22] VITALS (20 sets, daily range): BP systolic 135–161; BP diastolic 63–85; PULSE 77–90; RESP 14–27; TEMP 37.1; O2SAT 95–98
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
--- NOTE | 2025-05-22 14:00 | DI.CT_ITS ---
Exam(s) CT ABDOMEN PELVIS W EXAM: CT ABDOMEN PELVIS W CLINICAL HISTORY: Abdominal distention TECHNIQUE: Imaging Protocol: Axial computed tomography images with coronal and sagittal reformatted images were created and reviewed. CONTRAST MATERIAL: Intravenous: Omnipaque 350 Contrast volume:100 mL Oral: No COMPARISON: CT CT CHEST/ABD/PEL W from 05/21/[address] ABDOMEN PELVIS W from 10/23/[address] ABDOMEN PELVIS WO from 09/30/[address] THORAX ABD/PEL CTA from 05/04/2025 FINDINGS: ABDOMEN: Lung Bases: Coronary artery calcifications are present. There is elevation of the right hemidiaphragm with atelectasis seen in the right lower lobe. The patient has had a prior CABG. Liver: There is decreased attenuation of the liver consistent with fatty infiltration. No measurable mass. Portal, Superior Mesenteric, and Splenic Veins: Unremarkable. Gallbladder and Biliary Tract: There is again seen a calcification along the all nondependent wall of the gallbladder. There is no biliary ductal dilatation. Pancreas: Normal density, no abnormal calcifications or inflammatory process. Spleen: Normal. Adrenals: No masses seen. Kidneys: Normal size, contour and axis. No radiodense stones or obstructive uropathy. There are bilateral simple renal cysts. No follow-up is recommended. Abdominal Aorta: Abdominal portion non-dilated. Atherosclerotic calcification is present. Bowel: There are few diverticula seen in the colon but no evidence of acute diverticulitis. There is stool seen throughout the colon suggesting constipation. There is no evidence of bowel obstruction or bowel wall thickening. There is no evidence of an appendicitis. Peritoneal Cavity: No ascites, collection or mesenteric inflammatory response. No free air. Lymph Nodes: Within normal limits. Bones: Within normal limits for the patient's age. There are a few stable sclerotic foci. The patient has a median sternotomy. Soft Tissues: Unremarkable. PELVIS: Bladder: Symmetric distention, no gross wall thickening. Reproductive Organs: Unremarkable as visualized. Lymph Nodes: Within normal limits. Bones: Within normal limits for the patient's age. IMPRESSION: 1. There is a moderate amount of stool throughout the colon suggesting constipation. 2. No evidence of an acute abdominal or pelvic process. RADIATION DOSE DELIVERED: 743mGy.cm Total DLP DATA REPOSITORY: All CT scans at this facility are submitted to the National Radiology Data Registry (NRDR) Dose Index Registry (DIR) with the [employer] ([employer]). RADIATION OPTIMIZATION: All CT scans at this facility use at least one of these dose optimization techniques: automated exposure control; mA and/or kV adjustment per patient size (includes targeted exams where dose is matched to clinical indication); or iterative reconstruction.
--- NOTE | 2025-05-22 14:00 | DI.RAD_ITS ---
Exam(s) XR CHEST 2V PA LATERAL EXAM: XR CHEST 2V PA LATERAL CLINICAL HISTORY: Shortness of breath TECHNIQUE: 2D digital imaging was performed of the chest. Two images were obtained. AP and lateral views were obtained. COMPARISON: CR XR PORTABLE CHEST AP from 05/04/2025 FINDINGS: There is elevation of the right hemidiaphragm. MEDIASTINUM: Normal. HEART: Normal. PULMONARY VASCULATURE: Normal. LUNGS: Clear. PLEURAL SPACE: No pleural effusion or pneumothorax. BONE:Within normal limits for the patient's age. OTHER FINDINGS:Normal. IMPRESSION: No acute pulmonary findings. DATA REPOSITORY: RADIATION DOSE DELIVERED:
--- NOTE | 2025-05-22 14:00 | RT.EKG_ITS ---
APPROVED REPORT Exam: Resting ECG Reason for Exam: Abdominal pain Patient Location: E HR:79 bpm ECG Measurements Heart Rate 79 AXIS DC 143 P 41 QRSd 95 QRS 12 QT 434 T -83 QTc 498 Conclusion Sinus rhythm...normal P axis, V-rate 60- 99 Nonspecific T abnormalities, diffuse leads...T <-0.10mV, ant/lat/inf No Occlusion [place]
[2025-05-22 14:17] LABS: Abs Immature Grans 0.09 10^3/uL (0.0-0.06); HCT 37.3 % (40.0-50.0); HGB 12.4 g/dL (13.5-17.5); Immature Grans % 1.0 %; MCH 29.2 pg (27.0-33.0); MCHC 33.2 % (32.0-36.0); MCV 88 fL (80-95); MPV 8.8 fL (8.0-11.0); Platelet Count 218 10^3/uL (130-400); RBC 4.25 10^6/uL (4.36-5.78); RDW 15.2 % (11.8-14.1); RDW-SD 48.1 fL; WBC 8.76 10^3/uL (4.4-10.8)
[2025-05-22 14:34] LABS: ALT 28 U/L (10-49); AST 19 U/L (<34); Albumin 4.7 g/dL (3.2-5.0); Alkaline Phosphatase 113 U/L (46-116); Anion Gap 9.6 mmol/L (3-11); BUN 21 mg/dL (9-23); Bilirubin, Total 0.30 mg/dL (0.2-1.2); CO2 21.4 mmol/L (20.0-31.0); Calcium 8.8 mg/dL (8.3-10.6); Chloride 106 mmol/L (98-107); Glucose 188 mg/dL (74-106); Potassium 4.5 mmol/L (3.5-5.1); Sodium 137 mmol/L (136-145); Total Protein 7.6 g/dL (5.7-8.2)
[2025-05-22 14:38] LABS: Troponin I 58 ng/L (<54)
[2025-05-22] MEDS: Normal Saline - Diluent 50 ML VIAL IJ (14:45)
[2025-05-22] MEDS: Omnipaque 350 MG/ML 100 ML BTL IJ (14:45)
[2025-05-22] MEDS: Normal Saline Flush 10 ML SYR IVP (14:45)
[2025-05-22 15:01] LABS: INR 1.0 (0.9-1.1); PTT Activated 27.1 sec (20.6-30.2); Prothrombin Time 10.0 sec (9.1-11.1)
[2025-05-22 15:29] LABS: Troponin I 51 ng/L (<54)
[2025-05-22] MEDS: Acetaminophen 500 MG TAB 1000 MG PO (16:08)
[2025-05-22] MEDS: Sennosides/Docusate Sodium TAB 1 TAB PO (16:20)
[2025-05-22] MEDS: Polyethylene Glycol 3350 17 GM PACKET PO (16:20)
[2025-05-22] MEDS: Na Phosphate Enema-Adult 133 ML BTL PR (16:23)
== END 2025-05-22 17:14 | disposition home or self-care (01) ==
PROVIDERS: Emergency Provider Emergency Medicine; PCP Family Medicine
DX: K59.00 Constipation, unspecified (principal); E11.22 Type 2 diabetes mellitus with diabetic chronic kidney disease; I12.9 Hypertensive chronic kidney disease with stage 1 through stage 4 chronic kidney disease, or unspecified chronic kidney disease; N18.32 Chronic kidney disease, stage 3b; I25.2 Old myocardial infarction; Z95.5 Presence of coronary angioplasty implant and graft; Z95.1 Presence of aortocoronary bypass graft; Z79.02 Long term (current) use of antithrombotics/antiplatelets; Z79.82 Long term (current) use of aspirin; Z79.4 Long term (current) use of insulin; Z87.891 Personal history of nicotine dependence
CPT/HCPCS: 36415; 80053; 93005; 99285; 71046; 74177; 84484; 85025; 85610; 85730; 93010; 99284; J3490

== ENCOUNTER → 2025-06-04 09:57 | Outpatient (BNVA) | payer MEDICARE, OTHER, SELFPAY | PROVIDERS: PCP Family Medicine; Referring Provider Family Medicine; Visit Provider Podiatrist | DX: E11.42 Type 2 diabetes mellitus with diabetic polyneuropathy (principal); E11.22 Type 2 diabetes mellitus with diabetic chronic kidney disease; N18.32 Chronic kidney disease, stage 3b; L60.3 Nail dystrophy; B35.1 Tinea unguium; D50.9 Iron deficiency anemia, unspecified; E53.8 Deficiency of other specified B group vitamins; R26.89 Other abnormalities of gait and mobility; R09.89 Other specified symptoms and signs involving the circulatory and respiratory systems; L65.9 Nonscarring hair loss, unspecified; R20.8 Other disturbances of skin sensation; R23.4 Changes in skin texture; R23.8 Other skin changes; L60.2 Onychogryphosis; L60.8 Other nail disorders; M79.674 Pain in right toe(s); L85.8 Other specified epidermal thickening | CPT/HCPCS: 11055; 11719; 11720 ==

== ENCOUNTER → 2025-06-05 00:21 | Outpatient (CLI) | payer MEDICARE, OTHER, SELFPAY ==
--- NOTE | 2025-06-05 07:30 | DI.RAD_ITS ---
Exam(s) XR FOOT LT COMPLETE EXAM: XR FOOT LT COMPLETE CLINICAL HISTORY: comparison xray,gout,m10.9,pain,m79.674. TECHNIQUE: 2D digital imaging was performed. Three views. COMPARISON: CR XR FOOT LT COMPLETE from 02/17/2023 CR XR FOOT RT COMPLETE from 06/05/2025 FINDINGS: BONES: There has been previous fusion at the 1st MTP joint with screw in place. No acute fracture is present. No bony destructive lesion is seen. Small plantar calcaneal spur. JOINTS: No dislocation present. Hammertoe deformities. There are mild degenerative changes at the 1st MTP joint and talonavicular joint. SOFT TISSUE: Normal. IMPRESSION: Mild degenerative changes and postsurgical changes. DATA REPOSITORY: RADIATION DOSE DELIVERED:
--- NOTE | 2025-06-05 07:30 | DI.RAD_ITS ---
Exam(s) XR FOOT RT COMPLETE EXAM: XR FOOT RT COMPLETE CLINICAL HISTORY: R 1st toe IP joint pain,gout,m10.9,m79.674,rt toe pain. TECHNIQUE: 2D digital imaging was performed. Three views. COMPARISON: CR,XR XR FOOT RT COMPLETE from 09/02/2024 FINDINGS: BONES: No acute fracture is present. No bony destructive lesion is seen. Minimal heel spurs. JOINTS: No dislocation present. Hammertoe deformities. Minimal degenerative changes. SOFT TISSUE: Normal. IMPRESSION: Minimal degenerative changes. Hammertoe deformities. DATA REPOSITORY: RADIATION DOSE DELIVERED:
== END ==
LOC: DI 00:24
PROVIDERS: PCP Family Medicine; Visit Provider Podiatrist
DX: M19.071 Primary osteoarthritis, right ankle and foot (principal); M19.072 Primary osteoarthritis, left ankle and foot; M20.41 Other hammer toe(s) (acquired), right foot; M10.071 Idiopathic gout, right ankle and foot; L60.3 Nail dystrophy; B35.1 Tinea unguium; E11.42 Type 2 diabetes mellitus with diabetic polyneuropathy; E11.22 Type 2 diabetes mellitus with diabetic chronic kidney disease; N18.32 Chronic kidney disease, stage 3b; D50.9 Iron deficiency anemia, unspecified; E53.8 Deficiency of other specified B group vitamins; M79.672 Pain in left foot; I73.89 Other specified peripheral vascular diseases; M79.674 Pain in right toe(s); R26.81 Unsteadiness on feet; R09.89 Other specified symptoms and signs involving the circulatory and respiratory systems; L65.9 Nonscarring hair loss, unspecified; R20.8 Other disturbances of skin sensation; R23.4 Changes in skin texture; R23.8 Other skin changes; L60.2 Onychogryphosis; L60.8 Other nail disorders; L85.8 Other specified epidermal thickening
CPT/HCPCS: 11055; 11719; 11720; 36415; 73630; 84550

== ENCOUNTER 2025-06-05 10:47 | Outpatient (CLI) | payer MEDICARE, OTHER, SELFPAY ==
[2025-06-05 11:14] LABS: Uric Acid 5.0 mg/dL (3.7-9.2)
== END 2025-06-05 10:48 | disposition home or self-care (01) ==
LOC: LBO 10:48
PROVIDERS: PCP Family Medicine; Visit Provider Podiatrist
DX: M10.9 Gout, unspecified (principal); M79.674 Pain in right toe(s)
CPT/HCPCS: 36415; 84550

== ENCOUNTER → 2025-06-07 13:48 | Outpatient (BNVA) | payer MEDICARE, OTHER, SELFPAY | PROVIDERS: PCP Family Medicine; Referring Provider Family Medicine; Visit Provider Podiatrist | DX: M79.671 Pain in right foot (principal); M10.071 Idiopathic gout, right ankle and foot; M20.21 Hallux rigidus, right foot | CPT/HCPCS: 20600; J0702; J1100 ==

== ENCOUNTER → 2025-06-12 10:24 | Outpatient (BNVA) | payer MEDICARE, OTHER, SELFPAY | PROVIDERS: PCP Family Medicine; Visit Provider Urology | DX: N35.919 Unspecified urethral stricture, male, unspecified site (principal); R39.9 Unspecified symptoms and signs involving the genitourinary system | CPT/HCPCS: 99213 ==